=== PATIENT | male | born 1960 | race Caucasian/White ===

== ENCOUNTER 2017-04-08 00:19 | Emergency (ER) | payer OTHER ==
[~2017-04-08] VITALS: Ht 180.3 cm; Wt 90.7 kg
[~2017-04-08 00:19] MED LIST: ATIVAN2 MG PO; CALCICARB650 MG; DAILY VITE1 EACH PO; DOXYCYCLINE HY100 MG PO; DULCOLAX10 MG; ENOXAPARIN30 MG/0.3; FERROUS SULFAT325 MG; FLUCONAZOLE100 MG; FLUCONAZOLE100 MG PO; GABAPENTIN600 MG; LASIX20 MG PO; METHOCARBAMOL750 MG PO; MINIPRESS5 MG PO; MIRTAZAPINE30 MG PO; ONDANSETRON HCL8 MG PO; ONDANSETRON ODT4 MG; OXYCODONE HCL5 MG; OXYCODONE HCL5 MG PO; PHENADOZ25 MG PR; PRENACARE TABL1 EACH; PRILOSEC20 MG; ROBAXIN500 MG; SEROQUEL100 MG PO; TYLENOL325 MG
== END 2017-04-08 02:40 | disposition left against medical advice (07) ==
LOC: ED 00:19
DX: S80.211A Abrasion, right knee, initial encounter (principal); S80.812A Abrasion, left lower leg, initial encounter; F41.9 Anxiety disorder, unspecified; F32.9 Major depressive disorder, single episode, unspecified; F17.200 Nicotine dependence, unspecified, uncomplicated; Z86.19 Personal history of other infectious and parasitic diseases; Z79.899 Other long term (current) drug therapy; Z88.0 Allergy status to penicillin; Z88.8 Allergy status to other drugs, medicaments and biological substances; W18.30XA Fall on same level, unspecified, initial encounter
CPT/HCPCS: 99282

== ENCOUNTER 2018-01-26 17:44 | Inpatient (IN) | payer OTHER ==
[~2018-01-26] VITALS: Ht 180.3 cm; Wt 94.6 kg
[~2018-01-26 17:44] MED LIST changes: -METHOCARBAMOL750 MG PO; +ROBAXIN500 MG PO
[2018-01-26] MEDS ORDERED: CIPRO500 MG PO (18:18)
[2018-01-26] MEDS ORDERED: FLAGYL500 MG PO (18:18)
[2018-01-27] MEDS ORDERED: GABAPENTIN300 MG PO (00:16)
[2018-01-27] MEDS ORDERED: MELATONIN3 MG PO (00:19)
[2018-01-27] MEDS ORDERED: MAGNESIUM400 MG PO (00:19)
[2018-01-27] MEDS ORDERED: FLOMAX0.4 MG PO (00:20)
--- NOTE | 2018-01-27 00:28 | NUR ---
PATIENT ARRIVED TO FLOOR VIA STRETCHER. TRANSFERED TO BED, NOW RESTING.
--- NOTE | 2018-01-27 02:19 | NUR ---
PATIENT REPORTS 8/10 PAIN IN RIGHT FLANK, PRN DILAUDID GIVEN PER EMAR. PATIENT DENIES FURTHER NEEDS. BREATHING IS EVEN AND UNLABORED. CALL LIGHT WITHIN REACH, AT BEDSIDE.
--- NOTE | 2018-01-27 03:44 | NUR ---
PATIENT REPORTS 6/10 RIGHT FLANK PAIN, PRN DILAUDID GIVEN AND PRN METHOCARBAMOL GIVEN PER EMAR. PATIENT DENIES FURTHER NEEDS. RESTING COMFORTABLY, BREATHING IS EVEN AND UNLABORED. CALL LIGHT WITHIN REACH, AT BEDSIDE.
--- NOTE | 2018-01-27 05:35 | NUR ---
patient reports 5/10 pain in right flank, prn dilaudid given per emar. patient denies further needs. breathing is even and unlabored. he states "this is my normal level of pain at home." call light within reach.
--- NOTE | 2018-01-27 06:55 | NUR ---
UPDATED DR. HENRIQUEZ REGARDING PATIENT'S LOW URINE OUTPUT. NO NEW ORDERS AT THIS TIME.
--- NOTE | 2018-01-27 07:25 | NUR ---
GETTING REPORT ON PATIENT FROM ELLIE GARCIA AT THIS TIME. PATIENT WAS ASLEEP AT TIME OF ENTERING HIS ROOM. PATIENT'S IV IS PATENT AND INFUSING WITH D5 AND 1/2NS WITH 20KCL AT 125MLS/HR. PATIENT'S PAIN IS CURRENTLY 3/10. WILL COME BACK FOR ASSESSMENT.
--- NOTE | 2018-01-27 08:24 | NUR ---
PATIENT RELAXING IN BED. FAMILY MEMBER IN ROOM. CALL LIGHT WITHIN REACH. NO OTHER NEEDS AT THIS TIME.
--- NOTE | 2018-01-27 11:31 | NUR ---
STUDENT NURSE IN ROOM
--- NOTE | 2018-01-27 13:58 | NUR ---
PATIENT SITTING UP IN BED. STUDENT NURSE IN ROOM. PATIENTS IN ROOM. CALL LIGHT WITHIN REACH. NO OTHER NEEDS AT THIS TIME.
--- NOTE | 2018-01-27 14:47 | NUR ---
0846 PATIENT GOT 4MG ZOFRAN FOR NAUSEA FOLLOWED BY 1MG IV DILAUDID AT 0854 FOR 3/10 RIGHT FLANK PAIN. PATIENT WAS DOING FAIRLY WELL UNTIL 1259 AND WITH MOVEMENT TO STANDNING TO URINATE PATIENT WAS HAVING 8/10 RT FLANK PAIN AND WAS GIVEN ANOTHER 1MG IV DILAUDID. 1327 PATIENT HAVING NAUSEA AND WAS CALLED TO GIVE ANOTHER 4MG IV ZOFRAN EARLY FOLLOWED BY ANOTHER 1MG OF DILAUDID FOR 8/10 RT FLANK PAIN AT 1332. PATIENT'S PAIN DROPPED TO 7/10 PER PATIENT AND ANOTHER 1MG IV DILAUDID GIVEN AT 1432 AND NAUSEAIMPROVED BUT NOT GONE AND IN ROOM CARDIAC ECHO COMPLETED AT THIS TIME. INFORMED OF PATIENT'S PAIN LEVEL, DILAUDID COVERAGE, AND CONTINUED NAUSEA. NO FURTHER ORDERS GIVEN AT THIS TIME. WILL CONTINUE TO MONITOR PAIN AND NAUSEA.
--- NOTE | 2018-01-27 15:52 | NUR ---
PATIENT RESTING IN BED. PATIENTS IN ROOM. PATIENT STATES PAIN LEVEL IS A 7 OUT OF 10. RN NOTIFIED. RN SAID TO OFFER A HOT PACK AND/OR A SHOWER FOR PATIENT. PATIENT REFUSED SHOWER, BUT ACCEPTED HOT PACK. CALL LIGHT WITHIN REACH. NO OTHER NEEDS AT THIS TIME.
--- NOTE | 2018-01-27 18:39 | NUR ---
PATIENT SITTING UP IN BED. IN ROOM. PATIENT STATES PAIN LEVEL IS AN 8 OUT OF 10. PATIENT STATES HE IS FEELING NAUSEOUS WELL. RN NOTIFIED. CALL LIGHT WITHIN REACH. NO OTHER NEEDS AT THIS TIME.
--- NOTE | 2018-01-27 19:33 | NUR ---
IT HAS BEEN HARD TO CONTROL THIS PATIENT'S PAIN ALL AFTERNOON. 1MG OF DILAUDID HAS BEEN GIVEN ALMOST EVER HOUR TO HOUR AND A HALF AND IV MORPHINE HAS BEEN ADDED TO TRY AND DECREASE PATIENT'S RIGHT FLANK PAIN. THE PAIN THIS AFTERNOON HAS MAINLY IN THE RIGHT FLANK WHERE EARLIER FROM WHEN PATIENT WAS ADMITTED PAIN WAS RADIATING OUT INTO THE ABD AND THE RIGHT TESTICLE. PATIENT HAS REMAINED NPO EXCEPT FOR SOME MORNING MEDICATIONS SINCE LAST NIGHT. PATIENT HAS HAD AN IN ROOM CARDIAC ECHO THIS AFTERNOON FOLLOWED BY A RIGHT RENAL DOPPLER STUDAY DOWN IN DIAGNOSTIC IMAGINING AFTER THAT. ALL OF THIS MOVEMENT HAS INCREASED THE PATIENT'S PAIN. PATIENT GOT BACK FROM HIS RENAL STUDY NOT LONG BEFORE SHIFT CHANGE THIS EVENING AND WAS PLACED ON A CLEAR LIQUID DIET, BUT WAS TO NAUSEATED TO TRY AND HAVE ANYTHING PO. WAS GIVEN ANOTHER 1MG OF IV DILAUDID AND 4MG OF IV ZOFRAN FOR NAUSEA. AT TIME OF REPORT TO EVENING SHIFT PATIENT'S PAIN HAD DROPPED FROM 8/10 TO 6/10 AND HIS NAAUSEA HAD DECREASED ENOUGH TO TAKE A FEW SIPS OF FLUID AND KEEP IT DOWN. METAL MODEL MAKER RN INFORMED THAT PATIENT HAD NOT BEEN GIVEN HIS 1800 FLOMAX YET DUE TO THE NAUSEA AND HIS PM FLAGYL HAD BEEN HELD FOR THE NPO STATUS OF THE RENAL STUDY AND THESE WOULD STILL NEED TO BE GIVEN IF PATIENT ABLE TO KEEP PO FLUIDS DOWN. PATIENT WAS MEDICATED X 3 FOR NAUSEA TODAY PLEASE SEE PREVIOUS NOTE.
--- NOTE | 2018-01-27 20:00 | NUR ---
RECEIVED REPORT AT 1900. FOUND PT IN BED. PAIN WAS 6/10. PT DID NOT LOOK WELL OVERALL.
--- NOTE | 2018-01-27 21:48 | NUR ---
VITALS DONE AND CHARTED. BEDSIDE TABLE AND CALL LIGHT WITHIN REACH. PER PTS REQUEST I GOT HER A FRESH ICE PACK. SHE WAS VERY THANKFUL. PT NEEDS NOTHING ELSE AT THIS TIME.
--- NOTE | 2018-01-27 22:00 | NUR ---
V/S ARE WDL, ALL LOBES ARE CLEAR, PAIN IS 7/10, PAIN IS ALSO LOCALIZED TO RIGHT FLANK AT THIS TIME. ABD SOUNDS ARE PRESENT. PT HAS NO OTHER CONCERNS BESIDES HIS PAIN. URINE OUTPUT IS ADEQUATE SO FAR.
--- NOTE | 2018-01-28 00:27 | NUR ---
PT IS UP URINATING AT THIS TIME. PT HAS BEEN SLEEPING FOR THE PAST COUPLE OF HOURS.
--- NOTE | 2018-01-28 02:00 | NUR ---
PAIN IS 10/10. PT IS ONLY ORIENTED TO SELF AT THIS TIME. STATED THAT HE IS USUALLY NOT THIS BAD. MD VIZCAINO WAS CALLED. NO NEW ORDERS WERE GIVEN. WILL CONTINUE TO MONITOR.
--- NOTE | 2018-01-28 04:00 | NUR ---
PT IS AWAKE IN BED. PAIN IS 6/10. PT STATED THAT THIS IS TOLERABLE.
--- NOTE | 2018-01-28 06:37 | NUR ---
V/S ARE WDL, PAIN IS LOCAL NOW BUT STILL NEVER <6. PT SLEPT SOME THIS SHIFTL. ALL LOBES ARE CLEAR. AT AROUND 0200 PT SUDDENLY WAS ONLY ORIENTED TO SELF. SPOUSE SAID THAT THIS HAPPENS AT TIMES BUT NOT TO THIS EXTENT. MD VIZCAINO WAS CALLED AND NO NEW ORDERS WERE RECEIVED. NO NEW CONCERNS AT THIS TIME. PT IS ORIENTED TO SELF, PLACE AND SURROUNDINGS AT THIS TIME.
--- NOTE | 2018-01-28 07:52 | NUR ---
PATIENT LAYING IN BED AT THIS TIME. AT BEDSIDE. AM VITALS PERFORMED BY TERESA BENCH MACHINE OPERATOR. AM MEDS WILLL BE GIVEN BY BENCH MACHINE OPERATOR AND HER INSTRUCTOR HENRY. AM ASSESSMENT PERFORMED.
--- NOTE | 2018-01-28 08:56 | NUR ---
0755 SET HIM UP FOR HIS SHOWER SOMETIME TODAY.
--- NOTE | 2018-01-28 09:46 | NUR ---
PT STATES THAT HE WILL BE FEELING FINE AND THEN ALL OF A SUDDEN WILL "HIT A WALL" AND BEGIN SWEATING PROFUSELY. SUSPECTED OPIOID WITHDRAWAL FROM TAKING 15MG OXYCODONE 3-4 TIMES A DAY AT HOME. TRYING TO KEEP PAIN UNDER CONTROL AND OFFERING COMFORT MEASURES.
--- NOTE | 2018-01-28 09:56 | NUR ---
PAIN RATED AT A 6 AFTER PRN HOURLY DILAUDID. CONFUSED TO WHY HE FEELS FINE AND THEN SO BAD IN A SHORT SPAN. APPOLOGETIC. OFFERED COMFORT MEASURES. RN INFORMED OF CHANGES.
--- NOTE | 2018-01-28 10:37 | NUR ---
ICE PACK GIVEN FOR COMFORT MEASURES.
--- NOTE | 2018-01-28 11:08 | NUR ---
PT STATES CONCERNS ABOUT PHYSICIANS RF TECHNICIAN, INSURANCE, CAREGIVER EXHAUSTION NOTED. DISCUSSED SUPPORT THROUGH FAITH AND PA CHANGE. EXPRESSED EMOTION ABOUT SITUATION. 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 DIFFICULT ADJUST TO NEW "NORMS" IN LAST 5 YEARS. STATES CONCERNS ABOUT MISSING HER OWN APPTS BECAUSE OF HOSPITALIZATION AND LACK OF SUPPORT.
--- NOTE | 2018-01-28 11:34 | NUR ---
PATIENT CURRENTLY IN THE SHOWER. MENDY STAFFORD, CHANGING LINEN AT THIS TIME.
[2018-01-28] MEDS ORDERED: ZOFRAN ODT4 MG PO (11:59)
[2018-01-28] MEDS ORDERED: OMEPRAZOLE20 M1 PO (12:00)
--- NOTE | 2018-01-28 12:15 | NUR ---
PRN DILAUDID GIVEN. PT COMMUNICATES 8/10 PAIN AFTER SHOWER. PT APPEARS TO BE TRYING TO NAP AFTER PAIN MEDICATION.
[2018-01-28] MEDS ORDERED: OXYCODONE HCL15 MG PO (12:24)
--- NOTE | 2018-01-28 12:31 | NUR ---
PATIENT RESTING QUIETLY IN BED AT THIS TIME. EYES CLOSED, RESPIRATIONS EVEN AND REGULAR. CALL LIGHT IN REACH.
--- NOTE | 2018-01-28 13:15 | NUR ---
JUST SAW PATIENT AND DISCUSSED TRANSFERING PATIENT TO [facility] OR [facility] TO GET SPECIALIZED TREATMENT FOR HIS KIDNEY. PATIENT AND HIS AGREED TO DO THIS IF COULD ARRANGE IT. PATIENT MADE NPO AGAIN AT THIS TIME IN CASE HE NEEDS TO BE NPO FOR TESTS OR PROCEDURES AT THE RECEIVING FACILITY. PATIENT'S IS GOING HOME FOR A LITTLE WHILE AND WILL BE BACK SHORTLY.
--- NOTE | 2018-01-28 13:53 | NUR ---
PT SITTING ON SIDE OF BED, HIS BY HIS SIDE. PT VERY DISCOURAGED, ACCORDING TO HIM IT SEEMS LIKE ONE MEDICAL ISSUE AFTER ANOTHER. FEELS LIKE HE IS LETTING HIMSELF AND HIS FAMILY DOWN. HAD GOOD VISIT WITH BOTH, THEY REQUESTED PRAYER AND THAT I KEEP THEIR ENTRY LEVEL TRUCK DRIVER UPDATED WHICH I DID. WILL CONTINUE TO FOLLOW NEEDED
--- NOTE | 2018-01-28 14:25 | NUR ---
Medications reconciled using pharmacy records and interview with patient's , his computer systems design analyst
[2018-01-28] MEDS ORDERED: ELIQUIS5 MG PO (15:08)
[2018-01-28] MEDS ORDERED: NICOTINE PATCH1 EACH TD (15:08)
--- NOTE | 2018-01-28 15:08 | NUR ---
REPORTED OFF TO PRIMARY NURSE. PT GOING TO CALL TO TALK ABOUT TRANSFER TO [facility], VERY ANXIOUS. GIVEN ANOTHER PRN DILAUDID. NO COMPLAINTS AT THIS TIME. WAITING FOR RETURN.
[2018-01-28] MEDS ORDERED: HYDROMORPHO2 MG/1 M2 IV (15:10)
--- NOTE | 2018-01-28 15:38 | NUR ---
CALLED TRANSFERING REPORT TO SUSAN ON UN[address] AT [facility]. INFORMED SUSAN SHOULD BE LEAVING IN APPROXIMATELY 20 MINUTES. PATIENT WILL BE GOING TO BED 2301. REPORT WAS CALLED TO SUSAN AT [phone] AND HAD NO QUESTIONS AT END OF REPORT.
--- NOTE | 2018-01-28 16:25 | NUR ---
PATIENT GIVEN 2MG PO ATIVAN FOR ANXIETY AND TRANSFERED TO [facility] VIA EMS. GOING WITH PATIENT TO [facility]. 1MG PO ATIVAN GIVEN TO EMS FOR PRN IF NEEDED IN TRANSIT. PATIENT'S IV SALINE LOCKED FOR TRANSPORT.
== END 2018-01-28 16:25 | disposition short-term general hospital (02) | DRG 700 ==
LOC: ED 17:44 → CCU 23:47 → ED 23:48 → MS 23:48
PROVIDERS: ADMIT Internal Medicine
DX: N28.0 Ischemia and infarction of kidney (principal); I70.1 Atherosclerosis of renal artery; F41.9 Anxiety disorder, unspecified; F32.9 Major depressive disorder, single episode, unspecified; F43.10 Post-traumatic stress disorder, unspecified; F17.200 Nicotine dependence, unspecified, uncomplicated; Z87.820 Personal history of traumatic brain injury; Z86.19 Personal history of other infectious and parasitic diseases; Z79.891 Long term (current) use of opiate analgesic; Z79.899 Other long term (current) drug therapy; Z88.0 Allergy status to penicillin; Z88.8 Allergy status to other drugs, medicaments and biological substances
CPT/HCPCS: 36415; 74177; 80048; 80053; 81001; 81241; 83690; 85025; 85300; 85303; 85306; 85610; 85730; 86147; 93306; 93976; 94762; 96374; 96375; 99285; J1170; J1885; J2270; J2405; J7030; Q9967

== ENCOUNTER 2018-10-20 14:24 | Emergency (ER) | payer OTHER ==
[~2018-10-20] VITALS: Ht 180.3 cm; Wt 94.6 kg
[~2018-10-20 14:24] MED LIST changes: +CIPRO500 MG PO; +ELIQUIS5 MG PO; +FLAGYL500 MG PO; +FLOMAX0.4 MG PO; +GABAPENTIN300 MG PO; +HYDROMORPHO2 MG/1 M2 IV; +MAGNESIUM400 MG PO; +MELATONIN3 MG PO; +NICOTINE PATCH1 EACH TD; +OMEPRAZOLE20 M1 PO; +OXYCODONE HCL15 MG PO; +ZOFRAN ODT4 MG PO
--- OUTSIDE RECORDS SUMMARY | 2018-10-20 14:28 | XMS ---
PreManage Notification: APARNA HAN Security Echocardiography Technologist Events No recent Security Events currently on file CRITERIA MET - [facility] CARE PROVIDERS Margarita Samayoa Cleaner Touch Up Worker/Brick Maker 02/05/2017-Current PHONE: [phone] Margarita Samayoa Primary Care 02/05/2017-Current PHONE: [phone] Toan has no Care Guidelines for this patient. EJaskaran VISIT COUNT (12 MO.) 1 Abigail Chance TOTAL 3 NOTE: Visits indicate total known visits. ED/UCC VISIT TRACKING (12 MO.) 10/20/2018 14:24 [facility] TYPE: Emergency COMPLAINT: - HIP PAIN/FALL 01/26/2018 17:44 [facility] TYPE: Emergency COMPLAINT: - RENAL INFRACT 01/21/2018 19:17 [facility] Avinash DINH TYPE: Emergency DIAGNOSES: - Nausea - Nonspecific elevation of levels of transaminase and lactic acid dehydrogenase [LDH] - Emesis - Unspecified abdominal pain - Dehydration - Nausea with vomiting, unspecified - Abd pain-Per Fadi - Abdominal Pain INPATIENT VISIT TRACKING (12 MO.) 01/28/2018 19:56 [facility] TYPE: Medical Surgical COMPLAINT: - RENAL [facility] STEOSIS [facility] DIAGNOSES: - Dehydration - Other mechanical complication of bile duct prosthesis, initial encounter - Nausea with vomiting, unspecified - Unspecified abdominal pain - Nonspecific elevation of levels of transaminase and lactic acid dehydrogenase [LDH] [email or web address]
== END 2018-10-20 16:40 | disposition home or self-care (01) ==
LOC: ED 14:24
DX: S70.01XA Contusion of right hip, initial encounter (principal); W00.0XXA Fall on same level due to ice and snow, initial encounter; F41.9 Anxiety disorder, unspecified; F32.9 Major depressive disorder, single episode, unspecified; Z87.891 Personal history of nicotine dependence; Z88.8 Allergy status to other drugs, medicaments and biological substances; Z88.0 Allergy status to penicillin; Z91.048 Other nonmedicinal substance allergy status; Z79.899 Other long term (current) drug therapy
CPT/HCPCS: 73030; 73502; 99283-25

== ENCOUNTER 2019-05-27 10:39 | Emergency (ER) | payer OTHER ==
[~2019-05-27] VITALS: Ht 180.3 cm; Wt 95.2 kg
--- OUTSIDE RECORDS SUMMARY | 2019-05-27 10:42 | XMS ---
PreManage Notification: APARNA HAN Security Neonatal Intensive Care Unit Nurse Events No recent Security Events currently on file CRITERIA MET - [facility] - Has Care Guidelines [facility] Margarita Samayoa Featheredger And Reducer Machine/Apprenticeship Representative 03/07/2019-Current PHONE: [phone] DA Pineda Nurse Practitioner: Family 10/21/2018-Current PHONE: Unknown Margarita Samayoa Primary Care 03/07/2019-Current PHONE: [phone] Toan has no Care Guidelines for this patient. 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 Reese VISIT COUNT (12 MO.) 3 SELVIN Chance TOTAL 3 NOTE: Visits indicate total known visits. ED/UCC VISIT TRACKING (12 MO.) 05/27/2019 10:40 [facility] [place] TYPE: Emergency COMPLAINT: - BLOOD PRESSURE PROBLEM, BACK/ABD PAIN 11/05/2018 16:52 [facility] [place] TYPE: Emergency COMPLAINT: - KIDNEY PROBLEM DIAGNOSES: - Other chronic pain - Dissection of iliac artery - Personal history of other infectious and parasitic diseases - Other allergy status, other than to drugs and biological substances - Personal history of nicotine dependence - Major depressive disorder, single episode, unspecified - Anxiety disorder, unspecified - Allergy status to other drugs, medicaments and biological substances status - Other halfway (current) drug therapy - Allergy status to penicillin 10/20/2018 14:24 [facility] [place] TYPE: Emergency COMPLAINT: - HIP PAIN/FALL DIAGNOSES: - Personal history of nicotine dependence - Allergy status to penicillin - Contusion of right hip, initial encounter - Allergy status to other drugs, medicaments and biological substances status - Pain in right hip - Anxiety disorder, unspecified - Other nonmedicinal substance allergy status - Other halfway (current) drug therapy - Fall on same level due to ice and snow, initial encounter - Major depressive disorder, single episode, unspecified INPATIENT VISIT TRACKING (12 MO.) No inpatient visits to display in this time frame [email or web address]
[2019-05-27] MEDS ORDERED: CATAPRES0.2 MG PO (14:17)
[2019-05-27] MEDS ORDERED: GABAPENTIN600 MG PO (14:24)
--- NOTE | 2019-05-28 11:55 | EKG ---
[facility] [address] [place], [place] [address] Signed Normal sinus rhythm Normal ECG No previous ECGs available Confirmed by ANGELA WILKINS DO ([id number]) on 05/28/2019 11:54:49 AM Electronically Signed By: ANGELA WILKINS DO 05/28/19 1155 PATIENT NAME: APARNA HAN Electrocardiogram DATE OF : 58 PHYSICIAN: ANGELA WILKINS DO REPORT #: [id number] REPORT IS CONFIDENTIAL AND NOT TO BE RELEASED WITHOUT AUTHORIZATION
== END 2019-05-27 14:41 | disposition home or self-care (01) ==
LOC: ED 10:39
DX: R07.9 Chest pain, unspecified (principal); I10 Essential (primary) hypertension; M54.9 Dorsalgia, unspecified; R10.10 Upper abdominal pain, unspecified; Z87.891 Personal history of nicotine dependence; Z88.0 Allergy status to penicillin; Z88.6 Allergy status to analgesic agent; Z91.048 Other nonmedicinal substance allergy status
CPT/HCPCS: 71275; 74174; 80053; 81001; 83605; 83690; 84484; 85025; 93005; 93010; 99285-25; J1170; J2405; Q9967

== ENCOUNTER 2019-07-03 09:05 | Emergency (ER) | payer OTHER ==
[~2019-07-03] VITALS: Ht 180.3 cm; Wt 95.2 kg
--- OUTSIDE RECORDS SUMMARY | ~2019-07-03 | XMS | Encounter Summary ---
Demographics + + + | Address | [address] | | | [place] [address] | + + + | Home Phone | | + + + | Preferred Language | Unknown | + + + | Marital Status | | + + + | Mu-Ism Affiliation | Unknown | + + + | Race | White | + + + | Ethnic Group | Not or | + + + Author + + + | Author | [facility] | + + + | Organization | [facility] | + + + | Address | Unknown | + + + | Phone | Unavailable | + + + Support + + +---------+ + | Name | Relationship | Address | Phone | + + +---------+ + | Maria Isabel Cespedes | ECON | Unknown | | + + +---------+ + Care Team Providers + +------+ + | Care Bearing Ring Assembler Name | Role | Phone | + +------+ + | Allison Fairchild NP | PCP | | + +------+ + Encounter Details +--------+------+ + + + | Date | Type | Department | Care Team | Description | +--------+------+ + + + | 03/11/ | Lab | Laboratory, | | Renal artery | | 2019 | | Specimen Collection | | stenosis (HCC) | | | | at [address] | | | | | | [address] | | | | | | [place], | | | | | | [place] [address] | | | | | | [phone] | | | +--------+------+ + + + Social History + +-------+ [...] as of this encounter Plan of Treatment + +------+--------+ + + | Name | Type | Priori | Associated Diagnoses | Order Schedule | | | | ty | | | + +------+--------+ + + | CREATININE, URINE | Lab | Routin | Renal artery | Expected: 03/11/2019 | | | | e | stenosis (HCC) | (Approximate), | | | | | | Expires: 04/11/2020 | + +------+--------+ + + | PROTEIN, URINE | Lab | Routin | Renal artery | Expected: 03/11/2019 | | | | e | stenosis (HCC) | (Approximate), | | | | | | Expires: 04/11/2020 | + +------+--------+ + + | URINE, MICROSCOPIC | Lab | Routin | Renal artery | Expected: 03/11/2019 | | EXAM | | e | stenosis (HCC) | (Approximate), | | | | | | Expires: 04/11/2020 | + +------+--------+ + + documented as of this encounter Procedures + +--------+ + + + | Procedure Name | Priori | Date/Time | Associated Diagnosis | Comments | | | ty | | | | + +--------+ + + + | CBC AND AUTO DIFF | Routin | 03/11/2019 | Renal artery | Results for this | | | e | 10:19 AM | stenosis (HCC) | procedure are in the | | | | PDT | | results section. | + +--------+ + + + | CBC, WITH | Routin | 03/11/2019 | Renal artery | Results for this | | DIFFERENTIAL | e | 10:19 AM | stenosis (HCC) | procedure are in the | | | | PDT | | results section. | + +--------+ + + + | COMPLETE METABOLIC | Routin | 03/11/2019 | Renal artery | Results for this | | SET | e | 10:19 AM | stenosis (HCC) | procedure are in the | | (NA,K,CL,CO2,BUN,CRE | | PDT | | results section. | | AT,GLUC,CA,AST,ALT,B | | | | | | MARGIE TOTAL,ALK | | | | | | PHOS,ALB,PROT TOTAL) | | | | | + +--------+ + + + | RPR SERUM | Routin | 03/11/2019 | Renal artery | Results for this | | | e | 10:19 AM | stenosis (HCC) | procedure are in the | | | | PDT | | results section. | + +--------+ + + + | C-REACTIVE PROTEIN | Routin | 03/11/2019 | Renal artery | Results for this | | | e | 10:19 AM | stenosis (HCC) | procedure are in the | | | | PDT | | results section. | + +--------+ + + + | SEDIMENTATION RATE | Routin | 03/11/2019 | Renal artery | Results for this | | | e | 10:19 AM | stenosis (HCC) | procedure are in the | | | | PDT | | results section. | + +--------+ + + + documented in this encounter Results CBC AND AUTO DIFF (03/11/2019 10:19 AM PDT) + + + + + + | Component | Value | Ref Range | Performed | Pathologist | | | | | At | Signature | + + + + + + | WHITE CELL | 9.38 | 3.50 - 10.80 | [facility] | | | COUNT | | K/cu mm | LABORATORY | | | | | | SERVICES, | | | | | | CORE | | + + + + + + | RED CELL | 4.70 | 4.50 - 6.00 | [facility] | | | COUNT | | M/cu mm | LABORATORY | | | | | | SERVICES, | | | | | | CORE | | + + + + + + | HEMOGLOBIN | 13.8 | 13.5 - 17.5 | [facility] | | | | | g/dL | LABORATORY | | | | | | SERVICES, | | | | | | CORE | | + + + + + + | HEMATOCRIT | 41.8 | 41.0 - 53.0 % | [facility] | | | | | | LABORATORY | | | | | | SERVICES, | | | | | | CORE | | + + + + + + | MCV | 88.9 | 80.0 - 100.0 fL | [facility] | | | | | | LABORATORY | | | | | | SERVICES, | | | | | | CORE | | + + + + + + | MCHC | 33.0 | 32.0 - 36.0 | [facility] | | | | | g/dL | LABORATORY | | | | | | SERVICES, | | | | | | CORE | | + + + + + + | RDW SD | 45.3 | 35.1 - 46.3 fL | [facility] | | | | | | LABORATORY | | | | | | SERVICES, | | | | | | CORE | | + + + + + + | PLATELET | 431 (H) | 150 - 400 K/cu | [facility] | | | COUNT | | mm | LABORATORY | | | | | | SERVICES, | | | | | | CORE | | + + + + + + | MPV | 9.7 | 9.7 - 12.3 fL | [facility] | | | | | | LABORATORY | | | | | | SERVICES, | | | | | | CORE | | + + + + + + | NRBC% | 0.0 | 0.0 - 0.3 % | [facility] | | | | | | LABORATORY | | | | | | SERVICES, | | | | | | CORE | | + + + + + + | NRBC# | 0.00 | 0.00 - 0.02 | [facility] | | | | | K/cu mm | LABORATORY | | | | | | SERVICES, | | | | | | CORE | | + + + + + + | NEUTROPHIL | 57.1 | 50.0 - 70.0 % | [facility] | | | % | | | LABORATORY | | | | | | SERVICES, | | | | | | CORE | | + + + + + + | LYMPHOCYTE | 32.1 | 18.0 - 42.0 % | [facility] | | | % | | | LABORATORY | | | | | | SERVICES, | | | | | | CORE | | + + + + + + | MONOCYTE % | 7.7 | 3.5 - 9.0 % | [facility] | | | | | | LABORATORY | | | | | | SERVICES, | | | | | | CORE | | + + + + + + | EOS % | 1.7 | 1.0 - 3.0 % | [facility] | | | | | | LABORATORY | | | | | | SERVICES, | | | | | | CORE | | + + + + + + | BASO % | 1.1 | 0.0 - 2.0 % | [facility] | | | | | | LABORATORY | | | | | | SERVICES, | | | | | | CORE | | + + + + + + | IG% | 0.3Comment: Increased | 0.0 - 1.0 % | [facility] | | | | immature granulocytes | | LABORATORY | | | | (IG) define a left | | SERVICES, | | | | shift. Immature | | CORE | | | | granulocytes (IG) are an | | | | | | automated count of | | | | | | metamyelocytes, | | | | | | myelocytes and | | | | | | promyelocytes. Bands | | | | | | are not included in the | | | | | | IG count. Bands are | | | | | | included in the | | | | | | neutrophil count. | | | | + + + + + + | NEUTROPHIL | 5.36 | 1.80 - 7.70 | [facility] | | | # | | K/cu mm | LABORATORY | | | | | | SERVICES, | | | | | | CORE | | + + + + + + | LYMPHOCYTE | 3.01 | 1.00 - 4.80 | [facility] | | | # | | K/cu mm | LABORATORY | | | | | | SERVICES, | | | | | | CORE | | + + + + + + | MONOCYTE # | 0.72 | 0.10 - 0.90 | [facility] | | | | | K/cu mm | LABORATORY | | | | | | SERVICES, | | | | | | CORE | | + + + + + + | EOS # | 0.16 | 0.00 - 0.50 | [facility] | | | | | K/cu mm | LABORATORY | | | | | | SERVICES, | | | | | | CORE | | + + + + + + | BASO # | 0.10 | 0.00 - 0.10 | [facility] | | | | | K/cu mm | LABORATORY | | | | | | SERVICES, | | | | | | CORE | | + + + + + + | IG# | 0.03 | 0.00 - 0.10 | [facility] | | | | | K/cu mm | LABORATORY | | | | | | SERVICES, | | | | | | CORE | | + + + + + + + + | Specimen | + + | Blood - Blood | | (substance) | + + + + + | Narrative | Performed At | + + + | Increased immature granulocytes (IG) define a left shift. Immature | [facility] | | granulocytes (IG) are an automated count of metamyelocytes, myelocytes | LABORATORY | | and promyelocytes. Bands are not included in the IG count. Bands are | SERVICES, CORE | | included in the neutrophil count. | | + + + + + + + + | Performing | Address | City/State/Zipcode | Phone Number | | Organization | | | | + + + + + | [facility] | [address] | [place] [address] | | | SERVICES, CORE | [address] | | | + + + + + RPR SERUM (03/11/2019 10:19 AM PDT) + + + + + + | Component | Value | Ref Range | Performed | Pathologist | | | | | At | Signature | + + + + + + | RPR SRM | Non ReactiveComment: | Non Reactive | [facility] | | | QUAL | Rapid Plasma Reagin | | REG [facility] | | | | screening test is | | [facility] - [facility] | | | | Non-Reactive. No further | | | | | | reflex testing is | | | | | | required.Performed by | | | | | | [employer],[address] | | | | | | [address], [facility],[place] | | | | | | [id number] | | | | | | [phone][facility]. | | | | | | Melecio agrawal MD, | | | | | | Lab. Director | | | | + + + + + + + + | Specimen | + + | Blood - Blood | | (substance) | + + + + + + + | Performing | Address | City/State/Zipcode | Phone Number | | Organization | | | | + + + + + | [facility] | [address] | [place], [place] | | | UNIV [facility] | | [id number] | | + + + + + C-REACTIVE PROTEIN (03/11/2019 10:19 AM PDT) + + + + + + | Component | Value | Ref Range | Performed | Pathologist | | | | | At | Signature | + + + + + + | C-REACTIVE | 19.7 (H) | <10.0 mg/L | [facility] | | | PROTEIN | | | LABORATORY | | | | | | SERVICES, | | | | | | CORE | | + + + + + + + + | Specimen | + + | Blood - Blood | | (substance) | + + + + + + + | Performing | Address | City/State/Zipcode | Phone Number | | Organization | | | | + + + + + | [facility] | [address] | [place] [address] | | | SERVICES, CORE | [address] | | | + + + + + COMPLETE METABOLIC SET (NA,K,CL,CO2,BUN,CREAT,GLUC,CA,AST,ALT,BILI TOTAL,ALK PHOS,ALB,PROT TOTAL) (03/11/2019 10:19 AM PDT) + +---------+ + + + | Component | Value | Ref Range | Performed | Pathologist | | | | | At | Signature | + +---------+ + + + | GLUCOSE, | 65 (L) | 70 - 99 mg/dL | [facility] | | | PLASMA | | | LABORATORY | | | (LAB) | | | SERVICES, | | | | | | CORE | | + +---------+ + + + | BUN, PLASMA | 17 | 6 - 20 mg/dL | [facility] | | | (LAB) | | | LABORATORY | | | | | | SERVICES, | | | | | | CORE | | + +---------+ + + + | CREATININE | 1.07 | 0.70 - 1.30 | [facility] | | | PLASMA | | mg/dL | LABORATORY | | | (LAB) | | | SERVICES, | | | | | | CORE | | + +---------+ + + + | EGFR | >60 | >60 mL/min | [facility] | | | - | | | LABORATORY | | | POLISH | | | SERVICES, | | | | | | CORE | | + +---------+ + + + | EGFR NON | >60 | >60 mL/min | [facility] | | | -EVELYN | | | LABORATORY | | | RICAN | | | SERVICES, | | | | | | CORE | | + +---------+ + + + | SODIUM, | 134 (L) | 136 - 145 | [facility] | | | PLASMA | | mmol/L | LABORATORY | | | (LAB) | | | SERVICES, | | | | | | CORE | | + +---------+ + + + | POTASSIUM, | 4.2 | 3.4 - 5.0 | [facility] | | | PLASMA | | mmol/L | LABORATORY | | | (LAB) | | | SERVICES, | | | | | | CORE | | + +---------+ + + + | CHLORIDE, | 103 | 97 - 108 mmol/L | [facility] | | | PLASMA | | | LABORATORY | | | (LAB) | | | SERVICES, | | | | | | CORE | | + +---------+ + + + | TOTAL CO2, | 25 | 21 - 32 mmol/L | [facility] | | | PLASMA | | | LABORATORY | | | (LAB) | | | SERVICES, | | | | | | CORE | | + +---------+ + + + | CALCIUM, | 8.7 | 8.6 - 10.2 | [facility] | | | PLASMA | | mg/dL | LABORATORY | | | (LAB) | | | SERVICES, | | | | | | CORE | | + +---------+ + + + | CALCIUM(ALB | 9.1 | 8.6 - 10.2 | [facility] | | | CORRECTED) | | mg/dL | LABORATORY | | | | | | SERVICES, | | | | | | CORE | | + +---------+ + + + | BILIRUBIN | 0.4 | 0.3 - 1.2 mg/dL | [facility] | | | TOTAL | | | LABORATORY | | | | | | SERVICES, | | | | | | CORE | | + +---------+ + + + | TOTAL | 7.4 | 6.4 - 8.2 g/dL | [facility] | | | PROTEIN, | | | LABORATORY | | | PLASMA | | | SERVICES, | | | (LAB) | | | CORE | | + +---------+ + + + | ALBUMIN, | 3.5 | 3.5 - 4.7 g/dL | [facility] | | | PLASMA | | | LABORATORY | | | (LAB) | | | SERVICES, | | | | | | CORE | | + +---------+ + + + | ALK PHOS | 103 | 53 - 128 U/L | [facility] | | | | | | LABORATORY | | | | | | SERVICES, | | | | | | CORE | | + +---------+ + + + | AST(SGOT) | 18 | <=41 U/L | [facility] | | | | | | LABORATORY | | | | | | SERVICES, | | | | | | CORE | | + +---------+ + + + | ALT (SGPT) | 18 | <=60 U/L | [facility] | | | | | | LABORATORY | | | | | | SERVICES, | | | | | | CORE | | + +---------+ + + + | ANION GAP | 6 | 4 - 11 mmol/L | [facility] | | | | | | LABORATORY | | | | | | SERVICES, | | | | | | CORE | | + +---------+ + + + | ANION | 7 | 4 - 11 mmol/L | [facility] | | | GAP(ALB | | | LABORATORY | | | CORRECTED) | | | SERVICES, | | | | | | CORE | | + +---------+ + + + | POTASSIUM | No Hemo | | [facility] | | | CMNT | | | LABORATORY | | | | | | SERVICES, | | | | | | CORE | | + +---------+ + + + | BILI T CMNT | No Hemo | | [facility] | | | | | | LABORATORY | | | | | | SERVICES, | | | | | | CORE | | + +---------+ + + + | AST CMNT | No Hemo | | [facility] | | | | | | LABORATORY | | | | | | SERVICES, | | | | | | CORE | | + +---------+ + + + + + | Specimen | + + | Blood - Blood | | (substance) | + + + + + | Narrative | Performed At | + + + | GFR is estimated using the MDRD equation recommended by the National | [facility] | | Kidney Disease Education Program. Estimated GFR Interpretive | LABORATORY | | Information: <60 mL/min/1.73 sq m Chronic Kidney | SERVICES, CORE | | Disease <15 mL/min/1.73 sq m Kidney Failure | | | Estimated GFR greater than 60 mL/min/1.73 sq m is of limited clinical | | | value. The MDRD equation is not valid in the following situations: - | | | Patients under 18 years of age - Severe malnutrition or obesity - | | | Vegetarian diet - Rapidly changing kidney function - Amputees, | | | paraplegics, or other muscle-wasting diseses | | + + + + + + + + | Performing | Address | City/State/Zipcode | Phone Number | | Organization | | | | + + + + + | [facility] | [address] | [place] [address] | | | SERVICES, CORE | [address] | | | + + + + + SEDIMENTATION RATE (03/11/2019 10:19 AM PDT) + +--------+ + + + | Component | Value | Ref Range | Performed | Pathologist | | | | | At | Signature | + +--------+ + + + | SEDIMENTATI | 72 (H) | 0 - 20 mm/hr | [facility] | | | ON RATE | | | LABORATORY | | | | | | SERVICES, | | | | | | CORE | | + +--------+ + + + + + | Specimen | + + | Blood - Blood | | (substance) | + + + + + | Narrative | Performed At | + + + | Conditions such as cold agglutinins, anemia(including sickle cell | [facility] | | disease), multiple myeloma, hemolysis, icterus or lipemia may affect | LABORATORY | | sedimentation rate. | SERVICES, CORE | + + + + + + + + | Performing | Address | City/State/Zipcode | Phone Number | | Organization | | | | + + + + + | [facility] | [address] | [place] [address] | | | SERVICES, CORE | [address] | | | + + + + + documented in this encounter Visit Diagnoses + + | Diagnosis | + + | Renal artery stenosis (HCC) Atherosclerosis of renal artery | + + documented in this encounter"
--- OUTSIDE RECORDS SUMMARY | ~2019-07-03 | XMS | Encounter Summary ---
Demographics + + + | Address | [address] | | | [place] [address] | + + + | Home Phone | | + + + | Preferred Language | Unknown | + + + | Marital Status | | + + + | Gnosticist Affiliation | Unknown | + + + | Race | White | + + + | Ethnic Group | Not or | + + + Author + + + | Organization | Unknown | + + + | Address | Unknown | + + + | Phone | Unavailable | + + + Support + + +---------+ + | Name | Relationship | Address | Phone | + + +---------+ + | Maria Isabel Justin ECON | Unknown | | + + +---------+ + Care Team Providers + +------+ + | Care Slackman Name | Role | Phone | + +------+ + | Allison Fairchild NP | PCP | | + +------+ + Encounter Details +--------+--------+ + + + | Date | Type | Department | Care Team | Description | +--------+--------+ + + + | 07/05/ | Travel | | | | | 2019 | | | | | +--------+--------+ + + + Social History + +-------+ [...]
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
--- OUTSIDE RECORDS SUMMARY | ~2019-07-03 | XMS | Encounter Summary ---
Demographics + + + | Address | [address] | | | [place] [address] | + + + | Home Phone | | + + + | Preferred Language | Unknown | + + + | Marital Status | | + + + | Faith Affiliation | 1013 | + + + | Race | Unknown | + + + | Ethnic Group | Unknown | + + + Author + + + | Author | [facility] | | | and [place] | + + + | Organization | [facility] | | | and [...] [place] | | | | | [address] | | + + + + + Care Team Providers + +------+ + | Care Wash Oil Cooler Operator Name | Role | Phone | + +------+ + | Allison Fairchild NP | PCP | Unavailable | + +------+ + Encounter Details +--------+ + + + + | Date | Type | Department | Care Team | Description | +--------+ + + + + | 04/26/ | Orders Only | [facility] | Rich Washington MD | Iliac artery | | 2019 | | VASCULAR SURGERY | [address] | dissection (HCC) | | | | [address] | [place], [place] | (Primary Dx) | | | | [place], [place] | [address] | | | | | [address] | [phone] | | | | | [phone] | | | +--------+ + + + [...] + +---------+ + | No | 0 | 0.0 | | | | Standard | | | | | drinks or | | | | | | | | | | equivalen | | | | | t | | | + + +---------+ + [...] + | Diagnosis | + + | 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
--- OUTSIDE RECORDS SUMMARY | ~2019-07-03 | XMS | Encounter Summary ---
Demographics + + + | Address | [address] | | | [place] [address] | + + + | Home Phone | | + + + | Preferred Language | Unknown | + + + | Marital Status | | + + + | Pentecostalism Affiliation | 1013 | + + + | Race | Unknown | + + + | Ethnic Group | Unknown | + + + Author + + + | Author | [facility] | | | and [place] | + + + | Organization | [facility] | | | and [place] [...] [place] | | | | | [address] | | + + + + + Care Team Providers + +------+ + | Care Rn Cardiovascular Name | Role | Phone | + +------+ + | Allison Fairchild ADULT CAREGIVER | PCP | Unavailable | + +------+ + Reason for Referral Diagnostic/Screening (Routine) +--------+--------+ + + + + | Status | Reason | Specialty | Diagnoses / | Referred By | Referred To | | | | | Procedures | Contact | Contact | +--------+--------+ + + + + | Closed | | Radiology | Diagnoses | Rich Washington | [facility] | | | | | PAD | MD [address] | [address] | | | | | (peripheral | [address] | | | | | artery | [address] | [place], [place] | | | | | disease) | [place], [place] | [address] | | | | | ([facility]) | [address] | Phone: | | | | | Procedures | Phone: | [phone] | | | | | IR Stent | [phone] | Fax: | | | | | Iliac | Fax: | [phone] | | | | | | [phone] | | +--------+--------+ + + + + Diagnostic/Screening (Routine) +--------+--------+ + + + + | Status | Reason | Specialty | Diagnoses / | Referred By | Referred To | | | | | Procedures | Contact | Contact | +--------+--------+ + + + + | Closed | | Radiology | Diagnoses | Rich Washington | [facility] | | | | | PAD | [address] | | | | | (peripheral | [address] | [address] | | | | | artery | [address] [address] | [place], [place] | | | | | disease) | [place], [place] | [address] | | | | | ([facility]) | [address] | Phone: | | | | | Procedures | Phone: | [phone] | | | | | IR Stent | [phone] | Fax: | | | | | Iliac | Fax: | [phone] | | | | | | [phone] | | +--------+--------+ + + + + Reason for Visit Auth/Cert +--------+--------+ + + + + | Status | Reason | Specialty | Diagnoses / | Referred By | Referred To | | | | | Procedures | Contact | Contact | +--------+--------+ + + + + | | | | Diagnoses | | | | | | | PAD | | | | | | | (peripheral | | | | | | | artery | | | | | | | disease) | | | | | | | ([facility]) | | | | | | | Procedures | | | | | | | IR STENT | | | | | | | ILIAC | | | +--------+--------+ + + + + Encounter Details +--------+ + + + + | Date | Type | Department | Care Team | Description | +--------+ + + + + | 06/01/ | Hospital | [facility] | Rich Washington MD | PAD (peripheral | | 2019 - | Encounter | [facility] | [address] | artery disease) | | | | CARE FLOOR [address] | [place] [place], [place] | ([facility]) | | 06/02/ | | [address] | [address] | | | 2018 | | [place], [place] | [phone] | | | | | [address] | | | | | | [phone] | | | +--------+ + + + [...] + + + | Blood Pressure | 172/96 | 06/02/2019813 PDT | + + + + | Pulse | 91 | 06/02/2019813 PDT | + + + + | Temperature | 36.6 C (97.8 F) | 06/02/2019813 PDT | + + + + | Respiratory Rate | 20 | 06/02/2019813 PDT | + + + + | Oxygen Saturation | 92% | 06/02/2019813 PDT | + + + + | Inhaled Oxygen | - | - | | Concentration | | | + + + + | Weight | - | - | + + + + | Height | 180.3 cm (5' 11") | 06/01/2019 2300 PDT | + + + + | Body Mass Index | - | - | + + + + documented in this encounter Discharge Instructions Instructions Rich Washington MD - 06/01/2019 Discharge Instructions for Peripheral Angioplasty You had a procedure known as peripheral angioplasty. Peripheral arteries deliver blood to y our legs and feet. Over time,your artery choi may thicken and build up with a fatty subst ance (plaque). As plaque builds up in an artery,blood flow can be reduced or even blocked. This causes peripheral artery disease and problems in your legs and feet. Peripheral angiop lasty is a procedure that helps open blockages in peripheral arteries. Home care Don t drive for2 to 3days after the procedure or if you are taking opioid pain med icines. Rest for2 to 3days after the procedure. You will likely be able to go back to your n ormal activity within a few days. Don t lift anything heavier than10 pounds for 5 to 7 days. Take your temperature and check your incision site for signs of infection (redness, swel ling,drainage,or warmth) every day for a week. Keep a dressing on the incision site for at least 24 hours, or as directed by your docto r. Take your medicines exactly as directed. Don t skip doses. You can shower the day after the procedure. If you have stitches (sutures), avoid swimming or taking a bath [id number] after the p rocedure or until the stitches are removed. Unless directed otherwise, drink6 to 8glasses of water a day. This can prevent dehyd ration. It can also flush the dye used during your procedure out of your body. (Talk to your doctor first if you are on dialysis or have heart failure.) Eat a healthy diet that is low in fat, salt, and cholesterol. Ask your doctor for menus and other diet information. Begin an exercise program. Ask your doctor how to get started. You can benefit from simp le activities such as walking or gardening. If you are a smoker, try to break the smoking habit. Join a stop-smoking program to incr ease your chances of success. Follow-up If you have stitches or esteban, see your doctor to have them removed7 to 10 days afte r your procedure. When to call your healthcare provider Call your provider right away if you have any of the following: Fever of 100.4F (38C) Signs of infection at the incision site (redness, swelling, or warmth) Drainage from your incision Changes in color,temperature,feeling,or movement in either foot or leg Constant or increasing pain or numbness in your leg Leg swelling that does not improve overnight Bleeding, bruising, or a large swelling where the catheter was inserted Blood in your urine Black or tarry stools Dizziness or shortness of breath Date Last Reviewed: 02/06/201619991131-3441 [employer]. [address] [place] [id number]. All righ ts reserved. This information is not intended as a substitute for professional medical care. Always follow your healthcare professional's instructions. documented in this encounter Medications at Time [...] times daily. May | | | | | | capsule | increase to 600 [...] every 3 hours. | | | | | | immediate release | Maximum daily dose: | | | | | | tablet | 16 tablets | | | | | + + + +---------+ + + | promethazine | Take 25 mg by mouth | | 0 | | | | (PHENERGAN) 25 mg | every 6 hours as | | | | | | tablet | needed. | | [...] documented as of this encounter Progress Notes Shannan Tinajero, ELLIE - 06/01/2019 1841 PDTNo fax received regarding transport. Patient and fa flash agreeable to discharging tomorrow AM. Significant other left VM with [employer] [facility] [employer] regarding ride in the morning. Dr. Washington notified. Telephone order for home meds ga bapentin, lorazepam, robaxin, and magnesium. Electronically signed by Shannan Tinajero RN at 0 06/01/2019 18:43 Shannan Chávez RN - 06/01/2019 1543 PDTPer patient family patient arrive d this morning by medical transport. Patient will not be able to discharge until later this evening, when transport is not available. Received call from [facility] medical transport company that brought patient. She said they have the option of cynthia a local ambulance company. Received fax of form [phone] to be sent t o ambulance [employer]. After roberson is sent back we can forward to [facility] and they will approve or deny ride home for patient. All information provided by Nancy . Spoke to case management and gave him the forms to fill out. documented in this encounter Plan of Treatment Not on filedocumented as of this encounter Procedures + +--------+ + + + | Procedure Name | Priori | Date/Time | Associated Diagnosis | Comments | | | ty | | | | + +--------+ + + + | IR STENT ILIAC | Routin | 06/01/2019 | PAD (peripheral | Results for this | | | e | 14:34 PDT | artery disease) | procedure are in the | | | | | ([facility]) | results section. | + +--------+ + + + | CBC WITH | STAT | 06/01/2019 | | Results for this | | DIFFERENTIAL | | 12:50 PDT | | procedure are in the | | | | | | results section. | + +--------+ + + + | BASIC METABOLIC | STAT | 06/01/2019 | | Results for this | | PANEL | | 12:50 PDT | | procedure are in the | | | | | | results section. 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 Moderate conscious sedation2. | | | Ultrasound guided access of the right common femoral artery3. Right | | | iliac arteriogram4. Right distal common iliac artery to external | | | iliac artery stenting using 8 x 100 mm self-expanding stent SURGEON: | | | Rich Washington MD AUTOMOBILE UPHOLSTERY TRIM INSTALLER: None ANESTHESIA: Moderate sedation and local | | | anesthesia Informed consent was obtained from the patient. | | | Continuous cardiac monitoring was performed throughout the procedure. | | | Conscious sedation was provided by the nursing staff during the | | | procedure under my supervision. Sedation time: 10 | | | minutes Medications: 1 mg Versed IV, 50 Mcg Fentanyl IV | | | ESTIMATED BLOOD LOSS: Minimal CONTRAST: 12 mL of Isovue 250 | | | INDICATIONS: See preoperative history and physical FINDINGS: Right | | | iliac artery dissection was seen. After stenting, good angiographic | | | results. DESCRIPTION OF PROCEDURE: The patient was properly | | | identified and brought to the Multi Disciplined Language Analyst. The patient was placed supine | | | on the catheter table and patient was given moderate sedation by | | | nursing staff under my supervision. Patient's bilateral groins were | | | then prepped and draped in the usual sterile fashion. Local anesthetic | | | was given to the right groin and the right common femoral artery was | | | accessed under ultrasound guidance using a micropuncture needle. A | | | micropuncture sheath was inserted over a wire and up sized to a 6 | | | Somali sheath. A Omni flush catheter was then inserted into the distal | | | aorta and a right iliac arteriogram was then performed with the | | | findings as described above. Next, a 260 fix core wire was then | | | inserted over the catheter. Right distal common iliac artery to | | | external iliac artery was then stented using 8 x 100 mm self-expanding | | | stent. Due to dissection, the stent was not postdilated. A | | | final arteriogram was then performed through the sheath. The sheath | | | was then removed and a Mynx closure device was then used on the right | | | common femoral artery and hemostasis was ensured. The patient was then | | | taken to the observation unit for further monitoring. IMPRESSION: | | | 1. 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 After stenting, good angiographic results. | | |DESCRIPTION OF PROCEDURE: The patient was properly identified and brought | | |to the Multi Disciplined Language Analyst. The patient was placed supine on the catheter table and | | |patient was given moderate sedation by nursing staff under my supervision. | | |Patient's bilateral groins were then prepped and draped in the usual | | |sterile fashion. Local anesthetic was given to the right groin and the | | |right common femoral artery was accessed under ultrasound guidance using a | | |micropuncture needle. A micropuncture sheath was inserted over a wire and | | |up sized to a 6 Somali sheath. A Omni flush catheter was then inserted | | |into the distal aorta and a right iliac arteriogram was then performed | | |with the findings as described above. Next, a 260 fix core wire was then | | |inserted over the catheter. Right distal common iliac artery to external | | |iliac artery was then stented using 8 x 100 mm self-expanding stent. Due | | |to dissection, the stent was not postdilated. A final arteriogram was | | |then performed through the sheath. The sheath was then removed and a Mynx | | |closure device was then used on the right common femoral artery and | | |hemostasis was ensured. The patient was then taken to the observation unit | | |for further monitoring. | | | | | |IMPRESSION: | | | | | |1. 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 | | |2. After stenting, good angiographic results. | | | | | | | | + + ---+ + +---------+ + + | Performing | Address | City/State/Zipcode | Phone Number | | Organization | | | | + +---------+ + + | [facility] | | | | + +---------+ + + CBC with Differential (06/01/2019 12:50 PDT) + + + + + + | Component | Value | Ref Range | Performed | Pathologist | | | | | At | Signature | + + + + + + | WBC | 11.67 (H) | 3.80 - 11.00 | [facility] | | | | | K/uL | LABORATORY | | + + + + + + | RBC | 4.91 | 4.20 - 5.70 | [facility] | | | | | M/uL | LABORATORY | | + + + + + + | Hemoglobin | 14.2 | 13.2 - 17.0 | [facility] | | | | | g/dL | LABORATORY | | + + + + + + | Hematocrit | 43.0 | 39.0 - 50.0 % | [facility] | | | | | | LABORATORY | | + + + + + + | MCV | 87.6 | 80.0 - 100.0 fl | [facility] | | | | | | LABORATORY | | + + + + + + | MCH | 28.9 | 27.0 - 34.0 pg | [facility] | | | | | | LABORATORY | | + + + + + + | MCHC | 33.0 | 32.0 - 35.5 | [facility] | | | | | g/dL | LABORATORY | | + + + + + + | RDW-SD | 45.1 | 37 - 53 fl | [facility] | | | | | | LABORATORY | | + + + + + + | Platelet | 524 (H) | 150 - 400 K/uL | [...] + + + + | % | 64.32 | % | [facility] | | | Neutrophils | | | LABORATORY | | + + + + + + | % | 24.56 | % | [facility] | | | Lymphocytes | | | LABORATORY | | + + + + + + | Monocyte % | 8.47 | % | [facility] | | | | | | LABORATORY | | + + + + + + | Eosinophils | 1.47 | % | [facility] | | | % | | | LABORATORY | | + + + + + + | Basophils % | 1.18 | % | [facility] | | | | | | LABORATORY | | + + + + + + | Neutrophils | 7.51 (H) | 1.90 - 7.40 | [facility] | | | , Absolute | | K/uL | LABORATORY | | + + + + + + | Absolute | 2.87 | 1.00 - 3.90 | [facility] | | | Lymphocytes | | K/uL | LABORATORY | | + + + + + + | Absolute | 0.99 (H) | 0.00 - 0.80 | [facility] | | | Monocytes | | K/uL | LABORATORY | | + + + + + + | Eosinophils | 0.17 | 0.00 - 0.50 | [facility] | | | , Absolute | | K/uL | LABORATORY | | + + + + + + | Basophils, | 0.14 (H)Comment: Testing | 0.00 - 0.10 | [facility] | | | Absolute | performed at [facility];[address] | K/uL | LABORATORY | | | | [place] | | | | | | [address] | | | | + + + + + + + + | Specimen | + + | Blood | + + + + + + + | Performing | Address | City/State/Zipcode | Phone Number | | Organization | | | | + + + + + | [facility] | [address] | [place] [address] | [phone] | + + + + + Basic Metabolic Panel (06/01/2019 12:50 PDT) + + + + + + [...] + + + + | Creatinine | 0.97 | 0.70 - 1.30 | [facility] | | | | | mg/dL | LABORATORY | | + + + + + + | BUN/Creatin | 13 | | [facility] | | | ine Ratio | | | LABORATORY | | + + + + + + | Calcium | 9.6 | 8.5 - 10.5 | [facility] | | | | | mg/dL | LABORATORY | | + + + + + + | Estimated | >60Comment: GFR <60: | >60 | [facility] | | | GFR | CHRONIC [...] | | | | | | MDRD IDIL traceable | | | | | | equation.Testing | | | | | | performed at [facility] | | | | | | [facility];[place], [place] | | | | | | [address] | | | | + + + + + + + + | Specimen | + + | Blood | + + + + + + + | Performing | Address | City/State/Zipcode | Phone Number | | Organization | | | | + + + + + | [facility] | [address] | [place] [address] | [phone] | + + + + + documented in this encounter Visit Diagnoses + + | Diagnosis | + + | PAD (peripheral artery disease) (HCC) Unspecified disorders of arteries and | | arterioles | + + documented in this encounter Administered Medications + +--------+ +--------+------+------+ | Medication Order | MAR | Action | Dose | Rate | Site | | | Action | Date | | | | + +--------+ +--------+------+------+ | clopidogrel (PLAVIX) tablet | Given | 06/01/20 | 300 mg | | | | Oral, PRN, Starting 06/01/19 | | 19 14:26 | | | | | at 1426 | | PDT | | | | + +--------+ +--------+------+------+ +---+---+ | | | +---+---+ + +-------+ +---------+---+---+ | fentaNYL (PF) injection | Given | 06/01/20 | 100 mcg | | | | Intravenous, PRN, Starting Wed | | 19 14:05 | | | | | 06/01/19 at 1405 | | PDT | | | | + +-------+ +---------+---+---+ +---+---+ | | | +---+---+ + +-------+ +--------+---+---+ | gabapentin (NEURONTIN) capsule | Given | 06/02/20 | 600 mg | | | | 600 mg 600 mg, Oral, 2 TIMES | | 19 8:54 | | | | | DAILY, First dose on 06/01/19 | | PDT | | | | | at 2100 | | | | | | + +-------+ +--------+---+---+ +-------+ +--------+---+---+ | Given | 06/01/20 | 600 mg | | | | | 19 21:27 | | | | | | PDT | | | | +-------+ +--------+---+---+ +---+---+ | | | +---+---+ + +-------+ +--------+---+---+ | heparin 1,000 units/mL | Given | 06/01/20 | 5,000 | | | | injection Intravenous, PRN, | | 19 14:10 | Units | | | | Starting 06/01/19 at 1410 | | PDT | | | | + +-------+ +--------+---+---+ +---+---+ | | | +---+---+ + +-------+ + +---+---+ | HYDROcodone-acetaminophen | Given | 06/02/20 | 1 tablet | | | | (NORCO) 5-325 mg per tablet 1-2 | | 19 8:54 | | | | | tablet 1-2 tablet, Oral, EVERY 4 | | PDT | | | | | HOURS PRN, Pain, Starting Wed | | | | | | | 06/01/19 at 1419 | | | | | | + +-------+ + +---+---+ +-------+ + +---+---+ | Given | 06/02/20 | 1 tablet | | | | | 19 3:32 | | | | | | PDT | | | | +-------+ + +---+---+ | Given | 06/01/20 | 1 tablet | | | | | 19 14:54 | | | | | | PDT | | | | +-------+ + +---+---+ +---+---+ | | | +---+---+ + +-------+ +--------+---+---+ | iohexol (OMNIPAQUE 240) 240 | Given | 06/01/20 | 12 mLs | | | | mg/mL injection Intravenous, | | 19 14:19 | | | | | PRN, Starting Thu06/01/19 at 1419 | | PDT | | | | + +-------+ +--------+---+---+ +---+---+ | | | +---+---+ + +-------+ +--------+---+---+ | lidocaine 1% injection PRN, | Given | 06/01/20 | 10 mLs | | | | Starting Thu06/01/19 at 1405 | | 19 14:05 | | | | | | | PDT | | | | + +-------+ +--------+---+---+ + +---+ | | | + +---+ | LORazepam (ATIVAN) tablet 2 mg | | | 2 mg, Oral, EVERY 6 HOURS PRN, | | | Anxiety, Starting Thu06/01/19 at | | | 1840 | | + +---+ | | | + +---+ | magnesium oxide tablet 250 mg | | | 250 mg, Oral, 3 TIMES DAILY PRN, | | | For muscle spasms, Starting Wed | | | 06/01/19 at 1841 | | + +---+ | | | + +---+ | methocarbamol (ROBAXIN) tablet | | | 1,000 mg 1,000 mg, Oral, 4 TIMES | | | DAILY PRN, Muscle spasms, | | | Starting 06/01/19 at 1840 | | + +---+ | | | + +---+ | metoclopramide (REGLAN) 5 mg/mL | | | injection 10 mg 10 mg, | | | Intravenous, EVERY 4 HOURS PRN, | | | Nausea, Vomiting, Starting Wed | | | 06/01/19 at 1443, Use if | | | ondansetron and prochlorperazine | | | ineffective after 30min or not | | | ordered. Use PO option unless | | | NPO status or unable to tolerate. | | | Protect from light., | | | Post-op/Phase II | | + +---+ | | | + +---+ | metoclopramide (REGLAN) tablet | | | 10 mg 10 mg, Oral, EVERY 4 HOURS | | | PRN, Nausea, Vomiting, Starting | | | Thu06/01/19 at 1443, Use if | | | ondansetron and prochlorperazine | | | ineffective after 30min or not | | | ordered, Post-op/Phase II | | + +---+ | | | + +---+ + +-------+ +------+---+---+ | midazolam (VERSED) injection | Given | 06/01/20 | 1 mg | | | | Intravenous, PRN, Starting Thu | | 14:05 | | | | | 06/01/19 at 1405 | | PDT | | | | + +-------+ +------+---+---+ + +---+ | | | + +---+ | ondansetron (ZOFRAN ODT) | | | disintegrating tablet 4 mg 4 mg, | | | Oral, EVERY 6 HOURS PRN, Nausea, | | | Vomiting, Starting Thu06/01/19 | | | at 1443, First line agent, | | | Post-op/Phase II | | + +---+ | | | + +---+ | ondansetron (ZOFRAN) injection | | | 4 mg 4 mg, Intravenous, EVERY 6 | | | HOURS PRN, Nausea, Vomiting, | | | Starting Thu06/01/19 at 1443, | | | First line agent. Use PO option | | | unless NPO status or unable to | | | tolerate., Post-op/Phase II | | + +---+ | | | + +---+ + +---------+ +---+-------+---+ | sodium chloride 0.9% (NS) | New Bag | 06/01/20 | | 100 | | | infusion at 100 mL/hr, | | 19 13:10 | | mL/hr | | | Intravenous, CONTINUOUS, Starting | | PDT | | | | | Thu06/01/19 at 1300, Pre-op | | | | | | + +---------+ +---+-------+---+ +---+---+ | | | +---+---+ documented in this encounter
--- OUTSIDE RECORDS SUMMARY | ~2019-07-03 | XMS | Encounter Summary ---
Demographics + + + | Address | [address] | | | [place] [address] | + + + | Home Phone | | + + + | Preferred Language | Unknown | + + + | Marital Status | | + + + | Evangelical Affiliation | Unknown | + + + | Race | White | + + + | Ethnic Group | Not or | + + + Author + + + | Author | [facility] | + + + | Organization | [facility] | + + + | Address | Unknown | + + + | Phone | Unavailable | + + + Support + + +---------+ + | Name | Relationship | Address | Phone | + + +---------+ + | Maria Isabel Cespedes | ECON | Unknown | | + + +---------+ + Care Team Providers + +------+ + | Care Ampoule Filler And Sealer Name | Role | Phone | + [...] stenosis (HCC) | | | | at [address] | | | | | | [address] | | | | | | [place] Kh[place], | | | | | | [place] [address] | | | | | | [phone] | | | +--------+------+ + + + [...] | + + + + + | [facility] | [address] | [place] [address] | | | SERVICES, CORE | PARK [...] by | | | | | | [employer],[address] | | | | | | Manohar Lacey, [facility] | | | | | | [address] | | | | | | [phone].[employer] [facility]. | | | | | | [...] + | [facility] | [address] | [place], [place] | | | UNIV PTH - INTFC | | [address] | | + + + + + [...] [facility] | [address] | [place] [address] | | | SERVICES, CORE | PARK [...] | | | LABORATORY | | | LITHUANIAN | | | SERVICES, | | | [...] MDRD equation recommended by the National | [facility] | | Kidney Disease Education Program. [...] [facility] | [address] | [place] [address] | | | SERVICES, CORE | PARK [...] | + + + + + | [facility] [employer] | [address] | [place] [address] | | | SERVICES, CORE | [address] | | | + + + + + documented in this encounter Visit Diagnoses + + | Diagnosis | + + | Renal artery stenosis (HCC) Atherosclerosis of renal artery | + + documented in this encounter"
--- OUTSIDE RECORDS SUMMARY | ~2019-07-03 | XMS | Clinical Summary ---
Demographics + + + | Address | [address] | | | [place] [address] | + + + | Home Phone | | + + + | Preferred Language | Unknown | + + + | Marital Status | | + + + | Jain Affiliation | Unknown | + + + | Race | White | + + + | Ethnic Group | Not or | + + + Author + + + | Author | [facility] | + + + | Organization | [facility] | + + + | Address | Unknown | + + + | Phone | Unavailable | + + + Support + + +---------+ + | Name | Relationship | Address | Phone | + + +---------+ + | Maria Isabel Cespedes | ECON | Unknown | | + + +---------+ + Care Team Providers + +------+ + | Care Test Driver Name | Role | Phone | + +------+ + | Allison Fairchild NP | PCP | | + +------+ + Source Comments TANYA is fully live on both [facility] Ambulatory and [facility] InPatient.[facility] Allergies + + + + + + | Active Allergy | Reactions | Severity | Noted | Comments | | | | | Date | | + + + + + + | Adhesive Tape | Unknown | Medium | 03/24/20 | Causes welts | | | | | 14 | Causes welts if left | | | | | | in place for long | + + + + + + | Haloperidol | Unknown | High | 10/31/19 | Neck stiffness | | | | | 15 | neck muscle | | | | | | stiffness Throat | | | | | | Swelled Stiff Neck | + + + + + + | Penicillins | Unknown | | 08/15/20 | | | | | | 13 | | + + + + + + Medications + + + +---------+------+------+-------+ | Medication | Sig | Dispensed | Refills | Star | End | Statu | | | | | | t | Date | s | | | | | | Date | | | + + + +---------+------+------+-------+ | LORazepam 2 mg | Take 2 mg by mouth | | 0 | 02/1 | | Activ | | oral tablet | as needed. | | | 20 | | e | | | | | | 19 | | | + + + +---------+------+------+-------+ | gabapentin 300 mg | Take 300 mg by mouth | | 0 | 02/1 | | Activ | | oral capsule | once daily as | | | 20 | | e | | | needed. | | | 19 | | | + + + +---------+------+------+-------+ | ondansetron ODT 4 | as needed. | | 0 | 01/2 | | Activ | | mg oral | | | | 20 | | e | | tablet,disintegratin | | | | 19 | | | | g | | | | | | | + + + +---------+------+------+-------+ | ondansetron ODT 4 | DISSOLVE ONE TABLET | | 0 | 01/2 | | Activ | | mg oral | IN MOUTH EVERY SIX | | | /20 | | e | | tablet,disintegratin | HOURS NEEDED FOR | | | 19 | | | | g | NAUSEA | | | | | | + + + +---------+------+------+-------+ | tamsulosin 0.4 mg | Take 0.4 mg by mouth | | 0 | | | Activ | | oral capsule | once daily. | | | | | e | + + + +---------+------+------+-------+ | VENTOLIN HFA 90 | as needed. | | 0 | 01/2 | | Activ | | mcg/actuation | | | | 09/26 | | e | | inhalation HFA | | | | 19 | | | | aerosol inhaler | | | | | | | + + + +---------+------+------+-------+ | amLODIPine 10 mg | Take 10 mg by mouth | | 0 | /2 | | Activ | | oral tablet | once daily. | | | 05/27 | | e | | | | | | 19 | | | + + + +---------+------+------+-------+ | ELIQUIS 5 mg oral | Take 5 mg by mouth | | 0 | 12/2 | | Activ | | tablet | two times daily. | | | 04/26 | | e | | | | | | 18 | | | + + + +---------+------+------+-------+ | jb-xeb-vmgtd | Chew and swallow. | | 0 | | | Activ | | acid-lutein (CENTRUM | | | | | | e | | SILVER) 400-250 mcg | | | | | | | | oral | | | | | | | | tablet,chewable | | | | | | | + + + +---------+------+------+-------+ | docusate sodium | Take 100 mg by | | 0 | | | Activ | | 100 mg oral capsule | mouth. | | | | | e | + + + +---------+------+------+-------+ | magnesium oxide | Take 400 mg by mouth | | 0 | 01/2 | | Activ | | 400 mg oral tablet | three times daily. | | | /20 | | e | | | | | | 19 | | | + + + +---------+------+------+-------+ | oxyCODONE | Take 30 mg by mouth | | 0 | 02/1 | | Activ | | (immediate release) | as needed. | | | /20 | | e | | 15 mg oral tablet | | | | 19 | | | + + + +---------+------+------+-------+ | omeprazole 20 mg | as needed. | | 0 | 02/0 | | Activ | | oral capsule,delayed | | | | 6/20 | | e | | release(/EC) | | | | 19 | | | + + + +---------+------+------+-------+ | methocarbamol 500 | Take 1,000 mg by | | 0 | 02/1 | | Activ | | mg oral tablet | mouth four times | | | 5/20 | | e | | | daily. | | | 19 | | | + + + +---------+------+------+-------+ Active Problems No known active problems Social History + +-------+ +--------+------+ | Tobacco [...] + + + | Blood Pressure | 113/82 | 03/11/2019 12:26 PM | | | | | PDT | | + + + + + | Pulse | 79 | 03/11/2019 12:26 PM | | | | | PDT [...] Weight | 99.8 kg (220 lb) | 03/11/2019 12:26 PM | | | | | PDT | | + + + + + | Height | 180.3 cm (5' 11") | 11/02/2018 3:15 PM | | | | | PST | | + + + + + | Body Mass Index | 30.68 | 11/02/2018 3:15 PM | | | | | PST | | + + + + + Plan of Treatment + + + + + | Health Maintenance | Due Date | Last Done | Comments | + + + + + | Influenza (Flu) | | 06/26/2017, 06/26/2017, | | | vaccination (#1) | 9 | 06/23/2016, Additional history | | | | | exists | | + + + + + | Pneumococcal | Aged Out | | No longer eligible | | vaccination | | | based on patient's | | | | | age to complete this | | | | | topic | + + + + + Results Not on filefrom Last 3 Months Insurance + +--------+ +--------+ + +--------+ | Payer | Benefi | Subscriber | Effect | Phone | Address | Type | | | t Plan | ID | everett | | | | | | / | | Dates | | | | | | Group | | | | | | + +--------+ +--------+ + +--------+ | SAIF | SAIF | [id number] | 07/26/ | [phone] | [address] | Worker | | | | | [address]-P | [address] | s Comp | | | | | resent | | [place], [place] | | | | | | | | [address] | | + +--------+ +--------+ + +--------+ | C 13 CATAPULT OPERATOR MEDICAID | C 13 CATAPULT OPERATOR | xxxxxxxx | 09/11/19 | | | Medica | | | EAST[place] | | 18-Pre | | | id | | | [place] | | sent | | | | + +--------+ +--------+ + +--------+ + +--------+ +--------+ + + | Guarantor Name | Accoun | Relation to | Date | Phone | Billing Address | | | t Type | Patient | of | | | | | | | | | | + +--------+ +--------+ + + | Reza Cespedes | Person | Self | [birth year] | | [address] | | | al/Fam | | 1961 | [phone] | [place] [address] | | | valentín | | | 1 (Home) | | + +--------+ +--------+ + + | Reza Cespedes | Worker | Self | [birth year] | | [address] | | | s Comp | | 1961 | [phone] | [place] [address] | | | | | | 1 (Home) | | + +--------+ +--------+ + +
--- OUTSIDE RECORDS SUMMARY | ~2019-07-03 | XMS | Encounter Summary ---
Demographics + + + | Address | [address] | | | [place] [address] | + + + | Home Phone | | + + + | Preferred Language | Unknown | + + + | Marital Status | | + + + | Spiritism Affiliation | Unknown | + + + | Race | White | + + + | Ethnic Group | Not or | + + + Author + + + | Author | [facility] | + + + | Organization | [facility] | + + + | Address | Unknown | + + + | Phone | Unavailable | + + + Support + + +---------+ + | Name | Relationship | Address | Phone | + + +---------+ + | Maria Isabel Cespedes | ECON | Unknown | | + + +---------+ + Care Team Providers + +------+ + | Care Athletic Director Name | Role | Phone | + +------+ + | Allison Fairchild NP | PCP | | + +------+ + Encounter Details +--------+ + + + + | Date | Type | Department | Care Team | Description | +--------+ + + + + | 11/02/ | Telephone | Rheumatology at | Debbie Em, | | | 2019 | | Sahra Ybarra | [address] | | | | | [address] | [address] | | | | | [place] Kh[place] Mailcode: | [place], [place] | | | | | [address] Phys[address]'s | [address] | | | | | [address], [facility] [address] | [phone] | | | | | [place] | | | | | | [address] | | | | | | [phone] | | | +--------+ + + + [...]
--- OUTSIDE RECORDS SUMMARY | ~2019-07-03 | XMS | Encounter Summary ---
Demographics + + + | Address | [address] | | | [place] [address] | + + + | Home Phone | | + + + | Preferred Language | Unknown | + + + | Marital Status | | + + + | Yazdanism Affiliation | Unknown | + + + | Race | White | + + + | Ethnic Group | Not or | + + + Author + + + | Author | [facility] | + + + | Organization | [facility] | + + + | Address | Unknown | + + + | Phone | Unavailable | + + + Support + + +---------+ + | Name | Relationship | Address | Phone | + + +---------+ + | Maria Isabel Cespedes | ECON | Unknown | | + + +---------+ + Care Team Providers + +------+ + | Care Quality Assurance Associate Name | Role | Phone | + +------+ + | Allison Fairchild BATCH ATTENDANT | PCP | | + +------+ + Reason for Referral Diagnostic Testing (Routine) +--------+--------+ + + + + | Status | Reason | Specialty | Diagnoses / | Referred By | Referred To | | | | | Procedures | Contact | Contact | +--------+--------+ + + + + | Closed | | Radiology | Diagnoses | | Rad Ct Scan | | | | | Renal | [facility] s [address] | | | | | artery | MD Debbie | [address] | | | | | stenosis | [address] | [place] | | | | | ([facility]) | [address] | Mailcode: | | | | | Procedures | Rd | [address] [facility] | | | | | CTA ABDOMEN | [facility] | | | | | AND PELVIS W | [address] | [facility] [place] | | | | | IV CONTRAST | Phone: | [phone] | | | | | [place] | [phone] | Phone: | | | | | ANGIO, ABD | Fax: | [phone] | | | | | AND PELVS | [phone] | Fax: | | | | | INCL IMAG | | [phone] | | | | | PROC | | | +--------+--------+ + + + + Encounter Details +--------+ + + + + | Date | Type | Department | Care Team | Description | +--------+ + + + + | 02/22/ | Telephone | Rheumatology at | Debbie Em, | | | 2019 | | Physicians [address] | MD [address] | | | | | [address] | [address] | | | | | [place] Khanna Mailcode: | [place], [place] | | | | | [address] | [phone] | | | | | [address], [address] Floor | [phone] | | | | | [place], [place] | | | | | | [address] | | | | | | [phone] | | | +--------+ + + + [...] on filedocumented as of this encounter Results RPR SERUM (03/11/2019 10:19 AM PDT) + [...] by | | | | | | [employer],[address] | | | | | | Manoh[address]acey, [facility] [place] | | | | | | [address] | | | | | | [phone].[email or web address]. | | | | | | Melecio [...] [facility] | [address] | [place], [place] | | | UN[facility] P[facility] - INTFC | | [address] | | + + + + + [...] + | [facility] | [address] | [place] [address] | | | SERVICES, CORE | PARK [...] | | | LABORATORY | | | [place] | | | SERVICES, | | | [...] MDRD equation recommended by the National | [facility] | | Kidney Disease Education Program. Estimated GFR Interpretive | LABORATORY | | Information: <60 mL/min/1.73 sq m Chronic Kidney | SERVICES, [facility] | | Disease <15 mL/min/1.73 sq m [...] | + + + + + | [facility] | [address] | [place] [address] | | | [place], [place] | [address] | | | [...] | + + + + + | [facility] | [address] | [place] [address] | | | [place]OOGIE | [address] | | | + + + + + CTA ABDOMEN AND PELVIS W IV CONTRAST (03/11/2019 9:56 AM PDT) + + | Specimen | + + | | + + + + + | Narrative | Performed At | + + + | CTA ABDOMEN/PELVIS INDICATION: Renal artery stenosis | [facility] | | TECHNIQUE: Noncontrast CT from the top of the diaphragm to the | RADIOLOGY VOICE | | midthighs was performed in the axial plane with helical acquisition. | RECOGNITION 2 | | Using bolus tracking technique, CT angiogram with the same field of | | | view was obtained after the uneventful administration of 125 mL | | | Omnipaque 350 intravenous contrast. Venous phase imaging was also | | | performed from the knees to the bottom of the feet. 3D post-processed | | | images were created, filmed, and archived. COMPARISON: CTA chest, | | | abdomen, and pelvis 02/21/2019, CTA abdomen and pelvis 01/26/2018 | | | FINDINGS: Abdominal aorta: Patent. No aneurysmal dilatation. | | | Celiac axis: Patent. SMA: Patent. YUE: Patent. Right renal artery: | | | Single. Previously described right renal artery stenosis and edema | | | seen on CTA 01/26/2018 is no longer evident. Left renal artery: | | | Single. Patent. RIGHT: Common iliac artery: Patent. Minimal | | | atherosclerotic plaque. Dissection flap beginning in the distal | | | segment remains unchanged, with partial thrombosis. Internal iliac | | | artery: Patent, arising from the false lumen via a fenestration. | | | External iliac artery: Unchanged right external iliac dissection | | | extending from the origin to the level of the right common femoral | | | artery. Common femoral artery: Patent. Profunda femoris artery: | | | Visualized portion is patent. Superficial femoral artery: Visualized | | | portion is patent. LEFT: Common iliac artery: Patent. Internal | | | iliac artery: Patent. External iliac artery: Patent. Common femoral | | | artery: Patent. Profunda femoris artery: Visualized portion is | | | patent. Superficial femoral artery: Visualized portion is patent. | | | LOWER THORAX: The visualized heart base is unremarkable. The | | | visualized lung yuan are clear. HEPATOBILIARY: The liver is | | | unremarkable. The gallbladder is surgically absent. SPLEEN: No | | | splenomegaly. PANCREAS: No focal masses or ductal dilatation. | | | ADRENALS: Unremarkable. KIDNEYS/URETERS: No hydronephrosis, stones, | | | or solid mass lesions. Nonenhancing wedge-shaped defect in the right | | | mid kidney is unchanged from 02/21/2019, and likely represents a prior | | | infarct. Simple cysts in the left mid kidney is unchanged. PELVIC | | | ORGANS/BLADDER: Unremarkable PERITONEUM / RETROPERITONEUM: No free | | | air or fluid. LYMPH NODES: No lymphadenopathy. GI TRACT: No | | | distention or wall thickening. BONES AND SOFT TISSUES: Postsurgical | | | changes of prior anterior abdominal wall hernia repairs redemonstrated | | | with an unchanged small midline abdominal wall hernia. Postsurgical | | | and posttraumatic changes of right iliac wing pubic rami and sacrum | | | are redemonstrated. No acute osseous abnormality. Degenerative changes | | | throughout the lumbar spine are noted. 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 Unchanged small midline | | | abdominal wall hernia. I have personally reviewed the | | | images and, if necessary, edited the report. I agree with the report | | | as now presented. Final signature: Lazaro Almaguer MD | | | 03/12/2019 1:32 PM Preliminary: Jose Gil DO Dictation | | | initiated: Jose Gil DO 03/11/2019 12:28 PM | | + + + + + | Procedure Note | + + | Service Account, [employer] Res In Interface - 03/12/2019 1:33 PM PDT CTA | | ABDOMEN/PELVIS INDICATION:Renal artery stenosis TECHNIQUE:Noncontrast CT from the top | | of the diaphragm to the midthighs was performed in the axial plane with helical | | acquisition. Using bolus tracking technique, CT angiogram with the same field of view | | was obtained after the uneventful administration of 125 mL Omnipaque 350 intravenous | | contrast. Venous phase imaging was also performed from the knees to the bottom of the | | feet. 3D post-processed images were created, filmed, and archived. COMPARISON:CTA chest, | | abdomen, and pelvis 02/21/2019, CTA abdomen and pelvis 01/26/2018 FINDINGS: Abdominal | | aorta: Patent. No aneurysmal dilatation.Celiac axis: Patent.SMA: Patent.YUE: | | Patent.Right renal artery: Single. Previously described right renal artery stenosis and | | edema seen on CTA 01/26/2018 is no longer evident.Left renal artery: Single. Patent. | | RIGHT:Common iliac artery: Patent. Minimal atherosclerotic plaque. Dissection flap | | beginning in the distal segment remains unchanged, with partial thrombosis.Internal | | iliac artery: Patent, arising from the false lumen via a fenestration.External iliac | | artery: Unchanged right external iliac dissection extending from the origin to the level | | of the right common femoral artery.Common femoral artery: Patent.Profunda femoris | | artery: Visualized portion is patent.Superficial femoral artery: Visualized portion is | | patent. LEFT:Common iliac artery: Patent.Internal iliac artery: Patent.External iliac | | artery: Patent.Common femoral artery: Patent.Profunda femoris artery: Visualized portion | | is patent.Superficial femoral artery: Visualized portion is patent. LOWER THORAX: The | | visualized heart base is unremarkable. The visualized lung yuan are | | clear.HEPATOBILIARY: The liver is unremarkable. The gallbladder is surgically | | absent.SPLEEN: No splenomegaly.PANCREAS: No focal masses or ductal dilatation.ADRENALS: | | Unremarkable.KIDNEYS/URETERS: No hydronephrosis, stones, or solid mass lesions. | | Nonenhancing wedge-shaped defect in the right mid kidney is unchanged from 02/21/2019, | | and likely represents a prior infarct. Simple cysts in the left mid kidney is unchanged. | | PELVIC ORGANS/BLADDER: UnremarkablePERITONEUM / RETROPERITONEUM: No free air or | | fluid.LYMPH NODES: No lymphadenopathy.GI TRACT: No distention or wall thickening. BONES | | AND SOFT TISSUES: Postsurgical changes of prior anterior abdominal wall hernia repairs | | redemonstrated with an unchanged small midline abdominal wall hernia. Postsurgical and | | posttraumatic changes of right iliac wing pubic rami and sacrum are redemonstrated. No | | acute osseous abnormality. Degenerative changes throughout the lumbar spine are noted. | | IMPRESSION: Unchanged right external iliac dissection extending from the distal common | | iliac artery to the level of the common femoral artery. 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 Unchanged small | | midline abdominal wall hernia. I have personally reviewed the images and, if | | necessary, edited the report. I agree with the report as now presented. Final | | signature: Lazaro Almaguer MD 03/12/2019 1:32 PM Preliminary: Jose Gil DO | | Dictation initiated: Jose Gil DO 03/11/2019 12:28 PM | |SPLEEN: No splenomegaly. | |PANCREAS: No focal masses or ductal dilatation. | |ADRENALS: Unremarkable. | |KIDNEYS/URETERS: No hydronephrosis, stones, or solid mass lesions. Nonenhancing wedge-shape d defect in the right mid kidney is unchanged from 02/21/2019, and likely represents a prior infarct. Simple cysts in the left mid kidney is unchanged. | |PELVIC ORGANS/BLADDER: Unremarkable | |PERITONEUM / RETROPERITONEUM: No free air or fluid. | |LYMPH NODES: No lymphadenopathy. | |GI TRACT: No distention or wall thickening. | |BONES AND SOFT TISSUES: Postsurgical changes of prior anterior abdominal wall hernia repair s redemonstrated with an unchanged small midline abdominal wall hernia. Postsurgical and pos ttraumatic changes of right | |iliac wing pubic rami and sacrum are redemonstrated. No acute osseous abnormality. Degenera tive changes throughout the lumbar spine are noted. 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 | | | |Unchanged small midline abdominal wall hernia. | | | | | | | | | | | |I have personally reviewed the images and, if necessary, edited the report. I agree with e report as now presented. | | | |Final signature: Lazaro Almaguer MD 03/12/2019 1:32 PM | |Preliminary: Jose Gil DO | |Dictation initiated: Jose Gil DO 03/11/2019 12:28 PM | + + + +---------+ + + | Performing | Address | City/State/Zipcode | Phone Number | | Organization | | | | + +---------+ + + | [facility] | | | | | VOICE RECOGNITION 2 | | | | + +---------+ + + documented in this encounter Visit Diagnoses + + | Diagnosis | + + | Renal artery stenosis (HCC) - Primary Atherosclerosis of renal artery | + + documented in this encounter"
--- OUTSIDE RECORDS SUMMARY | ~2019-07-03 | XMS | Encounter Summary ---
Demographics + + + | Address | [address] | | | [place] [address] | + + + | Home Phone [...] | Author | [facility] | | | and [place] | + + + | Organization | [facility] | | | and [...] [place] | | | | | [address] | | + + + + + Care Team Providers + +------+ + | Care Cadworx Piping Designer Name | Role | Phone | + +------+ + | Allison Fairchild NP | PCP | Unavailable | + +------+ + Encounter Details +--------+ + + + + | Date | Type | Department | Care Team | Description | +--------+ + + + + | 05/31/ | Telephone | [facility] | Rich Washington MD | | | 2019 | | CENTER CV INTRA OP | [address] | | | | | [address] | [place] | | | | | [place] | [address] | | | | | [address] | [phone] | | | | | [phone] | | | +--------+ + + + [...]
--- OUTSIDE RECORDS SUMMARY | ~2019-07-03 | XMS | Encounter Summary ---
Demographics + + + | Address | [address] | | | [place] [address] | + + + | Home Phone | | + + + | Preferred Language | Unknown | + + + | Marital Status | | + + + | Spiritism Affiliation | Unknown | + + + | Race | White | + + + | Ethnic Group | Not or | + + + Author + + + | Author | [facility] | + + + | Organization | [facility] | + + + | Address | Unknown | + + + | Phone | Unavailable | + + + Support + + +---------+ + | Name | Relationship | Address | Phone | + + +---------+ + | Maria Isabel Cespedes | ECON | Unknown | | + + +---------+ + Care Team Providers + +------+ + | Care Insurance Policy Clerk Name | Role | Phone | + +------+ + | Allison Fairchild AIRCRAFT BODY REPAIRER | PCP | | + +------+ + [...] Dorian Khanna | | | | | ([facility]) | Krishan Ferrari | Mailcode: | | | | | Procedures | Rd | [address] [facility] | | | | | CTA ABDOMEN | [facility] | | | | | AND PELVIS W | [address] | [facility] [place] | | | | | IV CONTRAST | Phone: | [address] | | | | | [address] | [phone] | Phone: | | | | | ANGIO, ABD | Fax: | [phone] | | | | | AND PELVS | [phone] | Fax: | | | | | INCL IMAG | | [phone] | | | | | PROC | [...] | | | Dorian Khanna Mailcode: | [place], [place] | | | | | [address] Physician's | [address] | | | | | [address], [address] Floor | [phone] | | | | | [place], [place] | | | | | | [address] | | | | | | [phone] | | | +--------+ + + + [...] by | | | | | | [address] | | | | | | Manohar Lacey, [facility] | | | | | | [address] | | | | | | [phone].[employer]. | | | | | | Melecio [...] REG | [address] | [place], [place] | | | UNIV PTH - INTFC | | [address] | | + + + + + [...] [facility] | [address] | [place] [address] | | | SERVICES, CORE | PARK [...] | | | LABORATORY | | | [place] | | | SERVICES, | | | [...] MDRD equation recommended by the National | [facility] | | Kidney Disease Education Program. Estimated GFR Interpretive | LABORATORY | | Information: <60 mL/min/1.73 sq m Chronic Kidney | SERVICES, [facility] | | Disease <15 [...] | + + + + + | [facility] | [address] | [place] [address] | | | CHUYITA, [place]TEGA | DORIAN [...] | + + + + + | [facility] | [address] | [place] [address] | | | [place] BOOGIE | DORIAN [...] | | as now presented. Final signature: Lazaor Almaguer MD | | | 03/12/2019 1:32 PM Preliminary: Jose Gil DO Dictation | | | initiated: Jose Gil DO 03/11/2019 12:28 PM | | + + + + + | Procedure Note | + + | Service Account, [employer] Res In Interface - 03/12/2019 1:33 PM [...]
--- OUTSIDE RECORDS SUMMARY | ~2019-07-03 | XMS | Encounter Summary ---
Demographics + + + | Address | [address] | | | [place] [address] | + + + | Home Phone | | + + + | Preferred Language | Unknown | + + + | Marital Status | | + + + | Baptism Affiliation | Unknown | + + + | Race | White | + + + | Ethnic Group | Not or | + + + Author + + + | Author | [facility] | + + + | Organization | [facility] | + + + | Address | Unknown | + + + | Phone | Unavailable | + + + Support + + +---------+ + | Name | Relationship | Address | Phone | + + +---------+ + | Maria Isabel Cespedes | ECON | Unknown | | + + +---------+ + Care Team Providers + +------+ + | Care Cloud Physicist Name | Role | Phone | + [...] | | | | | Vonda Khanna [place], | | | | | | [place] [address] | | | +--------+--------+ + + + [...]
--- OUTSIDE RECORDS SUMMARY | ~2019-07-03 | XMS | Clinical Summary ---
Demographics + + + | Address | [address] | | | [place] [address] | + + + | Home Phone | | + + + | Preferred Language | Unknown | + + + | Marital Status | | + + + | Church Affiliation | 1013 | + + + | Race | Unknown | + + + | Ethnic Group | Unknown | + + + Author + + + | Author | [facility] | | | and Alexana | + + + | Organization | [facility] | | [...] [place] | | | | | [address] | | + + + + + Care Team Providers + +------+ + | Care Bottle Feeder Name | Role | Phone | + +------+ + | Allison Fairchild NP | PCP | Unavailable | + +------+ + Allergies + + [...] + + + + | Penicillins | Other (See | High | 04/21/20 | Reaction unknown | | | Comments), | | 13 | (as a child) Other | | | Anaphylaxis | | | reaction(s): Patient | | | | | | Does Not Remember | | | | | | Reaction unknown (as | | | | | | a child) Reaction | | | | | | unknown (as a child) | | | | | | Reaction | | | | | | unknown (as a child) | + + + [...] | + + + +---------+------+------+-------+ | ondansetron | Take 4 mg by mouth | | 0 | | | Activ | | (ZOFRAN ODT) 4 mg | every 6 hours as | | | | | e | | disintegrating | needed for Nausea. | | | | | | | tablet | | | | | | | + + + +---------+------+------+-------+ | oxyCODONE | Take 15-30 mg by | | 0 | | | Activ | | (ROXICODONE) 15 mg | mouth every 3 hours. | | | | | e | | immediate release | Maximum daily [...] | + + + +---------+------+------+-------+ | gabapentin | Take 300 mg by mouth | | 0 | | | Activ | | (NEURONTIN) 300 mg | 3 times daily. May | | | | | e | | capsule | increase to 600 mg | | | | | | | | by mouth twice daily | | | | | | + [...] | + + + +---------+------+------+-------+ | omeprazole | Take 1 capsule by | 90 | 3 | 01/1 | | Activ | | (PRILOSEC) 20 mg | mouth every morning | capsule | | 0/20 | | e | | capsuleIndications: | (before breakfast). | | | 19 | | | | Gastroesophageal | | | | | | | | reflux disease, | | | | | | | | esophagitis presence | | | | | | | | not specified | | | | | | | + + + +---------+------+------+-------+ | promethazine | Take 25 mg by mouth | | 0 | | | Activ | | (PHENERGAN) 25 mg | every 6 hours as | | | | | e | | tablet | needed. | | | | | | + [...] tablet by | 30 | 11 | 09/2 | | Activ | | (PLAVIX) 75 mg | mouth Daily. | tablet | | 5/20 | | e | | tablet | | | | 19 | | | + + + +---------+------+------+-------+ Active Problems + + + | Problem | Noted Date | + + + | Acute pain [...] which he was flown to | | [facility] and had multiple injuries to his gallbladder [...] satiety | 10/22/2015 | + + + Encounters +--------+ + + + + | Date | Type | Specialty | Care Team | Description | +--------+ + + + + | 06/01/ | Hospital | Internal Medicine | Rich [place] MD | PAD (peripheral | | 2018 - | Encounter | | | artery disease) | | | | | | (HCC) | | 06/02/ | | | | | | 2018 | | | | | +--------+ + + + + | 05/31/ | Telephone | Radiology | iRch [place] MD | | | 2018 | | | | | +--------+ + + + + | 05/26/ | Office | Vascular Surgery | Rich Washington MD | PAD (peripheral | | 2018 | Visit | | | artery disease) | | | | | | (HCC) (Primary Dx); | | | | | | 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) | +--------+ + + + + | 04/26/ | Orders Only | Vascular Surgery | Rich [place] MD | Iliac artery | | 2018 | | | | dissection (HCC) | | | | | | (Primary Dx) | +--------+ + + + + | 04/26/ | Orders Only | Vascular Surgery | Tyron Hsu DNP | 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) | | | | | | (Primary Dx) | +--------+ + + + + from Last 3 Months Immunizations + + + + | Name | Dates Previously Given | Next Due | + + + + | INFLUENZA PF | 06/23/2016, 06/23/2016, 06/18/2015, | | | QUAD(PED/ADOL/ADULT) | 06/18/2015 | | | ,PSKT or VIAL [...] 99.4 kg (219 lb 2.2 | 11/24/2018 1505 PDT | | | oz) | | + + + + | Height | 180.3 cm (5' 11") | 06/01/2019 2300 PDT | + + + + | Body Mass Index | 30.56 | 11/24/2018 1505 PDT | + + + + Plan of Treatment + + + + + | Health Maintenance | Due Date | Last Done | Comments | + + + + + | Colorectal Cancer | 04/14/201 | | | | Screening | 0 [...] + | Vaccine: Influenza | | 06/26/2017, 06/26/2017, | | | (#1) | 9 | 06/23/2016, Additional history [...] / Lot | + +-------+--------+ +--------+--------+--------+ | Stent Bili Advnx 10fr 5cm - | Stent | N/A: | BOSTON | | 11/02/ | [id number] | | [id number]: | | Bile | SCIENTIFIC | | 2020 | 320 | | Qty: 1 on 01/22/2018 by | | Duct | SIRISHA - BSCI | | | [id number] | | Dc Naik MD | | | | | | [id number] | | | | | | | | 419 | | | | | | | | /[id number] | | | | | | | | 503 | + +-------+--------+ +--------+--------+--------+ | Epic Vascular StentImplanted: | Stent | | [place]ON | | 01/05/ | [id number] | | Qty: 1 on 06/01/2019 by Felix, | | | SCIENTIFIC | | 2023 | [id number] | | Rich Alvarado MD | | | SIRISHA - BSCI | | | 020 / | | | | | | | | /[id number] | | | | | | | | 961 | + +-------+--------+ +--------+--------+--------+ | Mesh Hernia Proceed 6in X 8in | | | JJHCS | | 02/03/ | [id number] | | - [id number]: Qty: 1 | | | ETHICON | | 2014 | / | | on 03/27/2014 by Mc | | | SUTURE - | | | /[id number] | | MD Jamie | | | KESHAV | | | 5 | + +-------+--------+ +--------+--------+--------+ | Mesh Hernia Composix Kugel | | N/A: | DAVOL - DIV | | 05/03/ | [id number] | | Oval Large - | | Abdome | OF BARD - | | 2015 | 2 / | | [id number]: Qty: 1 on | | n | DAVID | | | /[id number] | | 07/03/2014 by Jamie Bentley, | | | | | | 417 | | MD | | | | | | | + +-------+--------+ +--------+--------+--------+ | Mesh Ventrio Oval Eptfe | | | NA UNKNOWN | | 05/07/ | [id number] | | Xlarge - [id number]: | | | | | 2016 | 8 | | Qty: 1 on 12/18/2014 by | | | | | | /[id number] | | Jamie Bentley MD | | | | | | 18 | | | | | | | | /[id number] | | | | | | | | 608 | + +-------+--------+ +--------+--------+--------+ | Mesh Prol [id number] - | | | JJHCS | | 07/07/ | PMH / | | SnaImplanted: Qty: 1 on | | | ETHICON | | 2020 | / | | 11/10/2016 by Jamie Bentley, | | | ENDO -YESSENIA | | | [id number] | | MD | | | 867 - | | [...] | NA UNKNOWN | | 05/06/ | [id number] | | 4"X6" - [id number] | | | | | 2014 | 0 / | | | | | | | | /RODRIGO | | | | | | | | 760 | + +------+------+ +--------+--------+--------+ | Mesh Hernia Composix Kugel | | | DAVOL - DIV | | | [id number] | | Oval Large - [id number] | | | OF - | | | 2 | | | | | DAVID | | | /[id number] | | | | | | | | 02 / | + +------+------+ +--------+--------+--------+ Procedures + +--------+ + + + | [...] in the | | | | | ([facility]) | results section. | + +--------+ + [...] section. | + +--------+ + + + from Last 3 Months Results IR Stent Iliac (06/01/2019 14:34 PDT) [...] SURGEON: | | | Rich Washington MD AGENCY OPERATOR: None ANESTHESIA: Moderate sedation and local | [...] | | identified and brought to the [facility]. The patient was placed supine | | [...] sized to a 6 | | | Algerian sheath. A Omni flush catheter was then [...] identified and brought | | |to the [facility]. The patient was placed supine on the [...] | | |up sized to a 6 Algerian sheath. A Omni flush catheter was then [...] | | | Absolute | performed at [facility];[address] | LABORATORY | | | | [address];[place], [place] | | | | | | [address] | | | | + + + + + + + + | Specimen | + + | Blood | + + + + + + + | Performing | Address | City/State/Zipcode | Phone Number | | Organization | | | | + + + + + | [facility] | [address] | [place] [address] | [phone] | + + + + + Basic [...] | | | | | performed at [facility];[address] | | | | | | [address];[place], [place] | | | | | | [address] | | | | + + + + + + + + | Specimen | + + | Blood | + + + + + + + | Performing | Address | City/State/Zipcode | Phone Number | | Organization | | | | + + + + + | [facility] | [address] | [place] [address] | [phone] | + + + + + from Last 3 Months Insurance + +--------+ +--------+ [...] | [employer] | MODA | [id number] | 07/31/ | [phone] | | Medica | | MEDICAID HMO | HEALTH | | 2013-P | 1 | | id | | | MDCD | | resent | | | | | | [place] | | | | | | + +--------+ +--------+ +---------+--------+ | [employer] | MODA | [id number] | 05/12/20 | [phone] | | Medica | | MEDICAID HMO [...] | | al/Fam | | 1961 | [phone] | [place] [address] | | | valentín | | | 0 (Home) | | + +--------+ +--------+ + + | Reza Cespedes | Person | Self | [birth year] | [address] | | | al/Fam | | 1961 | [phone] | [place] [address] | | | valentín | | | 0 (Home) | | + +--------+ +--------+ + + Advance Directives Patient has advance care planning documents, and code status on file. For more information, please contact:[facility] and [place] [address] + + + + + | Code Status | Date | Date | Comments | | | Activated | Inactivated | | + + + + + | Full Code | 01/22/2018 | 01/23/2018 | | | | 1:03 | 15:49 | | + + + + +
--- OUTSIDE RECORDS SUMMARY | ~2019-07-03 | XMS | Clinical Summary ---
Demographics + + + | Address | [address] | | | [place] [address] | + + + | Home Phone [...] | Author | [facility] (Historical as of | | | 04-23-19) | + + + | Organization | [facility] (Historical as of | | | 04-23-19) [...] [place] | | | | | [address] | | + + + + + Care Team Providers + +------+ + | Care Shaping Machine Tender Name | Role | Phone [...] 2012 for which he was flown to [facility] | | and had multiple injuries to [...] | | 06/26/2017, 06/23/2016, | | | (#1) | 9 | 06/18/2015, Additional history | | | [...] | 02/03/ | PCDG1 | | - [id number]: Qty: 1 | | | | | 2014 | / | | on 03/27/2014 by Mc, | | | | | | /[id number] | | MD Jamie | | | | | | 5 | + +------+--------+ +--------+--------+--------+ | Mesh Hernia Composix Kugel | | N/A: | DAVOL | | 05/03/ | [id number] | | Oval Large - | | Abdome | | | 2015 | 2 / | | [id number]: Qty: 1 on | | n | | | | /[id number] | | 07/03/2014 by Jamie Bentley, | | | | | | 417 | | | | | | | | | + +------+--------+ +--------+--------+--------+ | Mesh Ventrio Oval Eptfe | | | BARD-Medicl | | 05/07/ | [id number] | | Xlarge - [id number]: | | | ick | | 2016 | 8 | | Qty: 1 on 12/18/2014 by | | | | | | /[id number] | | Jamie Bentley MD | | | | | | 18 | | | | | | | | /[id number] | | | | | | | | 608 | + +------+--------+ +--------+--------+--------+ | Mesh Prol [id number] - | | | JJHCS | | 07/07/ | PMH / | | SnaImplanted: Qty: 1 on | | | ETHICON | | 2020 | / | | 11/10/2016 by Jamie Bentley, | | | ENDOSCOPY - | | | [id number] | | | | | ETHE | [...] | | BARD-Medicl | | 05/06/ | [id number] | | 4"X6" - [id number]: | | | ick | | 2014 | 0 / | | Qty: 1 on 03/27/2014 by | | | | | | /ANNAHO | | Jamie Bentley MD | | | | | | 760 | + +------+------+ +--------+--------+--------+ | Mesh Hernia Composix Kugel | | | DAV[place] | | | [id number] | | Oval Large - | | | | | | 2 | | [id number]: Qty: 1 on | | | | | | /[id number] | | 12/18/2014 by Jamie Bentley, | [...] +------+-------+ + | MEDICAID | EASTER | [id number] | | | [address] | | | N | | | | [place] | | | [place] | | | | [address] | | | [employer] | | | | | + +--------+ [...] | 1961 | [phone] | [place] [address] | | | [place] | | | [phone] | | + +--------+ +--------+ + +
--- OUTSIDE RECORDS SUMMARY | ~2019-07-03 | XMS | Encounter Summary ---
Demographics + + + | Address | [address] | | | [place] [address] | + + + | Home Phone | | + + + | Preferred Language | Unknown | + + + | Marital Status | | + + + | Jain Affiliation | 1013 | + + + | Race | Unknown | + + + | Ethnic Group | Unknown | + + + Author + + + | Author | [facility] | | | and Alexana | + + + | Organization | [facility] | | | and [...] [place] | | | | | [address] | | + + + + + Care Team Providers + +------+ + | Care Weaver Hand Loom Name | Role | Phone | + +------+ + | Allison Fairchild NP | PCP | Unavailable | + +------+ + Encounter Details +--------+ + + + + | Date | Type | Department | Care Team | Description | +--------+ + + + + | 04/26/ | Orders Only | [facility] | Rich Washington MD | Iliac artery | | 2019 | | VASCULAR SURGERY | [address] | dissection (HCC) | | | | [address] | [place], [place] | (Primary Dx) | | | | [place], [place] | [address] | | | | | [address] | [phone] | | | | | [phone] | | | +--------+ + + + [...]
--- OUTSIDE RECORDS SUMMARY | ~2019-07-03 | XMS | Encounter Summary ---
Demographics + + + | Address | [address] | | | [place] [address] | + + + | Home Phone | | + + + | Preferred Language | Unknown | + + + | Marital Status | | + + + | Gnosticism Affiliation | Unknown | + + + | Race | White | + + + | Ethnic Group | Not or | + + + Author + + + | Author | [facility] | + + + | Organization | [facility] | + + + | Address | Unknown | + + + | Phone | Unavailable | + + + Support + + +---------+ + | Name | Relationship | Address | Phone | + + +---------+ + | Maria Isabel Cespedes | ECON | Unknown | | + + +---------+ + Care Team Providers + +------+ + | Care College Or University Registrar Name | Role | Phone | + +------+ + | Allison Fairchild NP | PCP | | + +------+ + Encounter Details +--------+ + + + + | Date | Type | Department | Care Team | Description | +--------+ + + + + | 03/14/ | Telephone | Rheumatology at | Chiquis Norman, | | | 2019 | | Sahra Ybarra | [address] | | | | | [address] | [place] | | | | | Vonda Khanna Mailcode: | [place], [place] | | | | | [address] Physician's | [address] | | | | | [address] | [phone] | | | | | [place] | | | | | | [address] | | | | | | [phone] | | | +--------+ + + + [...]
--- OUTSIDE RECORDS SUMMARY | ~2019-07-03 | XMS | Encounter Summary ---
Demographics + + + | Address | [address] | | | [place] [address] | + + + | Home Phone | | + + + | Preferred Language | Unknown | + + + | Marital Status | | + + + | Adventism Affiliation | Unknown | + + + | Race | White | + + + | Ethnic Group | Not or | + + + Author + + + | Author | [facility] | + + + | Organization | [facility] | + + + | Address | Unknown | + + + | Phone | Unavailable | + + + Support + + +---------+ + | Name | Relationship | Address | Phone | + + +---------+ + | Maria Isabel Cespedes | ECON | Unknown | | + + +---------+ + Care Team Providers + +------+ + | Care Endodontist Name | Role | Phone | + +------+ + | Allison Fairchild FUR TINTER | PCP | | + +------+ + [...] | | | | | spondylosis | FUR TINTER Good | [address] | | | | | with | Lio | Krishan Ferrari | | | | | radiculopath | [facility] | Jey [place], | | | | | y, lumbar | [address] | [place] | | | | | region | [address] | [address] | | | | | Acute kidney | [facility], | Phone: | | | | | failure, | [place] [address] | [phone] | | | | | unspecified | Phone: | Fax: | | | | | Other | [phone] | [phone] | | | | | disorder of | Fax: | | | | | | circulatory | [phone] | | | | | | system [...] | | | | | | | [place] NEW | | | | | | | PATIENT | | | | | | | LEVEL II [place] | | | | | | | [...] 2019 | Visit | Phys[facility] [address] | [address] | (Primary Dx) | | | | [address] | Krishan Dorian Khanna | | | | | Dorian Khanna Mailcode: | [place], [place] | | | | | [address] Physician's | [address] | | | | | [address] [place], | [phone] | | | | | [place] [address] | | | | | | [phone] | | | +--------+---------+ + + + [...] findings, assessment and plan. Malou Bo M.D. [address] Mailcode: [address] [facility] [place] [address] cMoe DENIS, Debbie - 0 11/02/2018 3:30 PM PST RHEUMATOLOGY NEW VISIT PCP JUAN JOSÉ Juarez [place] [address] [place] [address] Chief Complaint: renal artery abnormalities, evaluate for [...] was instructed to schedule a visit wi [facility] rheumatology Dr Howard, but has been unable to get in until today. Here with his . Traveled here from [place], [place]. Long drive which is uncomfortable for [...] 1,000 mg by mouth four times daily. fi-fzq-yxxlg acid-lutein (CENTRUM SILVER) 400-250 mcg oral tablet,chewable [...] PCR. HBV is more commonly associated with GRAY which is negative. Await further lab results. [...] Em MD RHEUMATOLOGY AT [facility] [address] [facility] [facility] Mail[address]: [address] [place] [address] documented in this e ncounter [...] [facility] | [address] | [place] [address] | | | SERVICES, CORE | PARK [...] + + + + + | [facility] | [address] | [place] [address] | | | [place]OO[place] | PARK [...] PTH - INTFC | | | | [address] | | | | | | [phone]. | | | | | | [...] (http://www.cdc.gov/mmwr | | | | | | [email or web address] | | | | | | [email or web address].htm), [...] [facility] | [address] | [place], [place] | | | UNIV PTH - INTFC | | [address] | | + + + + + [...] [facility] | [address] | [place] [address] | | | SERVICES, CORE | PARK [...] + + + + + | [facility] | [address] | [place] [address] | | | SERVICES, [place] | DORIAN [...] | | | LABORATORY | | | [place] | | | SERVICES, | | | [...] | + + + + + | [facility] | [address] | [place] [address] | | | [place] | DORIAN [...] | + + + + + | [facility] | [address] | [place] [address] | | | [place] | [address] | | | + + + + + documented in this encounter Visit Diagnoses + + | Diagnosis | + + | 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
--- OUTSIDE RECORDS SUMMARY | ~2019-07-03 | XMS | Encounter Summary ---
Demographics + + + | Address | [address] | | | [place] [address] | + + + | Home Phone | | + + + | Preferred Language | Unknown | + + + | Marital Status | | + + + | Temple Affiliation | Unknown | + + + | Race | White | + + + | Ethnic Group | Not or | + + + Author + + + | Author | [facility] | + + + | Organization | [facility] | + + + | Address | Unknown | + + + | Phone | Unavailable | + + + Support + + +---------+ + | Name | Relationship | Address | Phone | + + +---------+ + | Maria Isabel Cespedes | ECON | Unknown | | + + +---------+ + Care Team Providers + +------+ + | Care Styrene Dehydration Reactor Operator Name | Role | Phone | + +------+ + | Allison Fairchild NP | PCP | | + +------+ + Encounter Details +--------+--------+ + + + | Date | Type | Department | Care Team | Description | +--------+--------+ + + + | 01/26/ | Intake | Transfer Center | | N/A | | 2018 | | [address] | | | | | | [place]onda [place], | | | | | | [place] [address] | | | +--------+--------+ + + + [...]
--- OUTSIDE RECORDS SUMMARY | ~2019-07-03 | XMS | Encounter Summary ---
Demographics + + + | Address | [address] | | | [place] [address] | + + + | Home Phone | | + + + | Preferred Language | Unknown | + + + | Marital Status | | + + + | Sabianism Affiliation | Unknown | + + + | Race | White | + + + | Ethnic Group | Not or | + + + Author + + + | Author | [facility] | + + + | Organization | [facility] | + + + | Address | Unknown | + + + | Phone | Unavailable | + + + Support + + +---------+ + | Name | Relationship | Address | Phone | + + +---------+ + | Maria Isabel Cespedes | ECON | Unknown | | + + +---------+ + Care Team Providers + +------+ + | Care Graphic Manager Name | Role | Phone | + +------+ + | Allison Fairchild RECRUITING INTERN | PCP | | + +------+ + [...] | | | | | spondylosis | RECRUITING INTERN Good | [address] [facility] | | | | | with | Lio | [address] | | | | | radiculopath | [facility] | Jey [place], | | | | | y, lumbar | [address] | [place] | | | | | region | [address] | [address] | | | | | Acute kidney | [facility], | Phone: | | | | | failure, | [place] [address] | [phone] | | | | | unspecified | Phone: | Fax: | | | | | Other | [phone] | [phone] | | | | | disorder of | Fax: | | | | | | circulatory | [phone] | | | | | | system [...] | | | | | | | [place] NEW | | | | | | | PATIENT | | | | | | | [place] | | | | | | | [...] | Visit | Physicians Tate Rehman MD [address] [facility] | stenosis (HCC) | | | | [address] | [address] | (Primary Dx); ESR | | | | [address] Mailcode: | [place], [place] | raised; 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 | | | | Tate, 4th Floor | [phone] | ([facility]) | | | | [place], [place] | | | | | | [address] | | | | | | [phone] | | | +--------+---------+ + + + [...] inflammation) on 2018 study per review with [facility] radiology - iliac artery dissection present on 01/2018 study per review with [facility] radiology- stable - proximal SMA may also be slightly abnormal on 11/2018 per review with [facility] radiology, leena mmend follow-up ultrasound, done 12/2018 limited but without obvious SMA changes - 02/2019: repeat CTA abd/pelvis but poor quality outside study with significant motion shannan fact, could not comment on renal aa or SMA. Chronic iliac dissection stable. Proximal aorta somewhat thickened. Overall suspicion for vasculitis low given variable vessel involvement, prolonged time period, dissections. Repeating CTA abd/pelvis at [facility] .S: Here with [place] Having pain [...] systems has been done with pertinent responses levar ruvalcaba in the HPI. Please review the scanned document in [facility] for full details. - Cold all [...] 1,000 mg by mouth four times daily. dm-dep-nicgl acid-lutein (CENTRUM SILVER) 400-250 mcg oral tablet,chewable [...] BSA 2.24 m Rapid 3 MHAQ: 6.0 (03/11/19 1500) PAIN LEVEL: 8.5 (03/11/19 1500) GLOBAL ASSESSMENT: 8 (03/11/19 1500) RAPID 3: 7.5 (03/11/19 1500) Gen: chronically ill appearing, ambulatory with cane [...] defect in musculature. LABS - Recent Labs 11/02/18 1655 03/11/19 1019 WBC 12.41* 9.38 RBC 4.64 4.70 [...] elevated, these have been elevated intermittently since 2012 so unclear these represent an acute change. [...] review findings with radiology early next w [place] Plan- - follow-up RPR - encouraged patient [...] the attestation. Chiquis Norman MD RHEUMATOLOGY AT [address] Mailcode: [address] [place] [address] Associated attestation - Dejah Aguilera MD - 03/14/2019 1:52 PM PDTI have seen and ev aluated this patient with Dr. Norman. I agree with the documented findings, assessment, an d plan as detailed above. Dejah Aguilera MD RHEUMATOLOGY AT [address] Mailcode: [address] [place] [address] documented in this encounter Plan [...]
--- OUTSIDE RECORDS SUMMARY | ~2019-07-03 | XMS | Encounter Summary ---
Demographics + + + | Address | [address] | | | [place] [address] | + + + | Home Phone [...] + + + | Author | [facility] | + + + | Organization | [facility] | + + + | Address | Unknown | + + + | Phone | Unavailable | + + + Support + + +---------+ + | Name | Relationship | Address | Phone | + + +---------+ + | Maria Isabel Cespedes | ECON | Unknown | | + + +---------+ + Care Team Providers + +------+ + | Care Rotating Equipment Engineer Name | Role | Phone | + +------+ + | Allison Fairchild NP | PCP | | + +------+ + Encounter Details +--------+ + + + + | Date | Type | Department | Care Team | Description | +--------+ + + + + | 02/22/ | Procedure | Diagnostic Imaging | | | | 2019 | Pass | Services at [facility] | | | | | | [address] | | | | | | [address] Mailcode: | | | | | | [address] [facility] | | | | | | [place], [place] | | | | | | [address] | | | | | | [phone] | | | +--------+ + + + [...]
--- OUTSIDE RECORDS SUMMARY | ~2019-07-03 | XMS | Encounter Summary ---
Demographics + + + | Address | [address] | | | [place] [address] | + + + | Home Phone | | + + + | Preferred Language | Unknown | + + + | Marital Status | | + + + | Congregation Affiliation | Unknown | + + + [...] Team Providers + +------+ + | Care Air Support Control Officer Name | Role | Phone | + +------+ + | Allison Fairchild NP | PCP | | + +------+ + Encounter Details +--------+------+ + + + | Date | Type | Department | Care Team | Description | +--------+------+ + + + | 11/02/ | Lab | Laboratory, | | Renal artery anomaly | | 2018 | | Specimen Collection | | | | | | at [address] Floor | | | | | | [address] | | | | | | [place], | | | | | | [place] [address] | | | | | | [phone] | | | +--------+------+ + + + [...] by | | | | | | [address] | | | | | | [address], [facility],[place] | | | | | | [address] | | | | | | [phone]. | | | | | | Melecio [...] [facility] | [address] | [place], [place] | | | UNIV PTH - INTFC | | [address] | | + + + + + [...] [facility] | [address] | [place] [address] | | | SERVICES, CORE | PARK [...] | + + + + + | [facility] | [address] | [place] [address] | | | SERVICES, CORE | [address] [...] | + + + + + | [facility] | [address] | [place] [address] | | | SERVICES, CORE | PARK [...] [facility] | | | NIL | by [address] | | REG UNIV | | | | [address], [facility],[place] | | PTH - INTFC | | | | [address] | | | | | | [phone]. | | | | | | Melecio [...] (http://www.cdc.gov/mmwr | | | | | | /preview/mmwrhtml/tv6537 | | | | | | a1.htm), [...] [facility] | [address] | [place], [place] | | | UNIV PTH - INTFC | | [address] | | + + + + + [...] | + + + + + | [facility] | [address] | [place] [address] | | | SERVICES, CORE | PARK [...] [facility] | [address] | [place] [address] | | | SERVICES, CORE | PARK [...] | | | LABORATORY | | | TRINIDADIAN | | | SERVICES, | | | [...] the MDRD equation recommended by the | [facility] | | National Kidney Disease Education Program. 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
--- OUTSIDE RECORDS SUMMARY | ~2019-07-03 | XMS | Encounter Summary ---
Demographics + + + | Address | [address] | | | [place] [address] | + + + | Home Phone | | + + + | Preferred Language | Unknown | + + + | Marital Status | | + + + | Christian Affiliation | Unknown | + + + | Race | White | + + + | Ethnic Group | Not or | + + + Author + + + | Author | [facility] | + + + | Organization | [facility] | + + + | Address | Unknown | + + + | Phone | Unavailable | + + + Support + + +---------+ + | Name | Relationship | Address | Phone | + + +---------+ + | Maria Isabel Cespedes | ECON | Unknown | | + + +---------+ + Care Team Providers + +------+ + | Care Mechanical Systems Engineer Name | Role | Phone | + +------+ + | Allison Fairchild NP | PCP | | + +------+ + Encounter Details +--------+ + + + + | Date | Type | Department | Care Team | Description | +--------+ + + + + | 02/22/ | Procedure | Diagnostic Imaging | | | | 2019 | Pass | Services at [facility] | | | | | | [address] | | | | | | [address] Mailcode: | | | | | | [address] [facility] | | | | | | [place], [place] | | | | | | [address] | | | | | | [phone] | | | +--------+ + + + [...]
--- OUTSIDE RECORDS SUMMARY | ~2019-07-03 | XMS | Encounter Summary ---
Demographics + + + | Address | [address] | | | [place] [address] | + + + | Home Phone | | + + + | Preferred Language | Unknown | + + + | Marital Status | | + + + | Bahai Affiliation | Unknown | + + + [...] Team Providers + +------+ + | Care Framing Inspector Name | Role | Phone | [...] | | | | | [address] [place] [place], | | | | | | [place] [address] | | | +--------+--------+ + + + [...]
--- OUTSIDE RECORDS SUMMARY | ~2019-07-03 | XMS | Encounter Summary ---
Demographics + + + | Address | [address] | | | [place] [address] | + + + | Home Phone | | + + + | Preferred Language | Unknown | + + + | Marital Status | | + + + | Orthodoxy Affiliation | 1013 | + + + | Race | Unknown | + + + | Ethnic Group | Unknown | + + + Author + + + | Author | [facility] | | | and [place] | + + + | Organization | [facility] | | | and [place] [...] [place] | | | | | [address] | | + + + + + Care Team Providers + +------+ + | Care Frame Stripper And Crusher Name | Role | Phone | + +------+ + | Allison Fairchild NP | PCP | Unavailable | + +------+ + Encounter Details +--------+ + + + + | Date | Type | Department | Care Team | Description | +--------+ + + + + | 05/31/ | Telephone | [facility] | Rich Washington MD | | | 2019 | | CENTER CV INTRA OP | [address] | | | | | [address] | [place] | | | | | [place] | [address] | | | | | [address] | [phone] | | | | | [phone] | | | +--------+ + + + [...]
--- OUTSIDE RECORDS SUMMARY | ~2019-07-03 | XMS | Encounter Summary ---
Demographics + + + | Address | [address] | | | [place] [address] | + + + | Home Phone | | + + + | Preferred Language | Unknown | + + + | Marital Status | | + + + | Synagogue Affiliation | 1013 | + + + | Race | Unknown | + + + | Ethnic Group | Unknown | + + + Author + + + | Author | [facility] | | | and [place] | + + + | Organization | [facility] | | | and [place] [...] [place] | | | | | [address] | | + + + + + Care Team Providers + +------+ + | Care Account Advisor Name | Role | Phone | + +------+ + | Allison Fairchild EQUIPMENT HIRE MANAGER | PCP | Unavailable | + +------+ [...] PAD | MD [address] | [address] | | | | | (peripheral | [address] | | | | | artery | [address] | [place], [place] | | | | | disease) | [place], [place] | [address] | | | | | (HCC) | [address] | Phone: | | | | | Procedures | Phone: | [phone] | | | | | IR Stent | [phone] | Fax: | | | | | Iliac | Fax: | [phone] | | | | | | [phone] | | +--------+--------+ + + + + Reason for Visit + + + | Reason | Comments | + + + | Follow-up | 6 mon f/u on CTA | + + + Encounter Details +--------+---------+ + + + | Date | Type | Department | Care Team | Description | +--------+---------+ + + + | 05/26/ | Office | 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) | | | | [phone] | | | +--------+---------+ + + + [...] Last Filed Vital Signs + +---------+ + | Vital Sign | Reading | Time Taken | + +---------+ + | Blood Pressure | 145/89 | 05/26/2019 1305 PDT | + +---------+ + | Pulse | 76 | 05/26/2019 1305 PDT | + +---------+ + | Temperature | - | - | + +---------+ + | Respiratory Rate | - | - | + +---------+ + | Oxygen Saturation | 96% | 05/26/2019 1305 PDT | + +---------+ + | Inhaled Oxygen | - | - | | Concentration | | | + +---------+ + | Weight | - | - | + +---------+ + | Height | - | - | + +---------+ + | Body Mass Index | - | - | + +---------+ + documented in this encounter Progress Notes Rich Washington MD - 05/26/2019 1330 PDTFormatting of this note might be different from the leidy tatum. Subjective Subjective Mr. Nelson a pleasant 58 y.o.malewith PMH significant for hepatitis [...] a history of abdominal surgeries performed at [facility]. Patient reports he i s on [employer] currently. CT ANGIOGRAM CHEST ABDOMEN AND PELVIS [...] Procedure: ERCP; Surgeon: Dc Naik MD; Location: [facility] ERCP N/A 02/12/2018 Procedure: ERCP; Surgeon: Dc Naik MD; Location: [facility] FRACTURE SURGERY 2011 skull/facial HARDWARE REMOVAL Right Hardware placement and removal thumb HERNIA REPAIR pt has 2 hernia repairs and 3rd revision on 12-18-14 hip screw removed Right 2014 Nasal reconstruction 1978 right hip/pelvis surgery 2012 SLAP 2011 UPPER GASTROINTESTINAL ENDOSCOPY UPPER GASTROINTESTINAL ENDOSCOPY N/A 10/23/2015 Procedure: EGD; Surgeon: Adrian Aponte MD; Location: [facility] UPPER GASTROINTESTINAL ENDOSCOPY N/A 11/18/2017 Procedure: EGD; Surgeon: Adrian Aponte MD; Location: [facility] XR LUMBAR SPINE [...] CV: No peripheral edema, rate regular SKIN: [place], warm, dry without rash/lesion MS: ROM not [...] time controlling his blood pressures. Since the pa anna's blood pressure is poorly controlled, we will [...] drink fluids after 11:59 PM on 05/31/19. Jake montana asked the patient to hold his Eliquis one day before the procedure. All questions and co ncerns addressed. Patient will follow up after surgery. Patient understands and is agreeable . Attending Note: Documentation assistance provided by Marie Linares (Scribe). Information leena rded by the scribe has been reviewed and validated by me. I agree with its contents. Signed by: Herberth Lloyd 05/26/19, 13:23 Rich Washington MD documented in th is encounter Plan of Treatment Not on filedocumented [...] SURGEON: | | | Rich Washington MD SWATCH PASTER: None ANESTHESIA: Moderate sedation and local | [...] | | identified and brought to the Dance Studio Manager. The patient was placed supine | | [...] sized to a 6 | | | Mongolian sheath. A Omni flush catheter was then [...] identified and brought | | |to the Dance Studio Manager. The patient was placed supine on the [...] | | |up sized to a 6 Mongolian sheath. A Omni flush catheter was then [...]
--- OUTSIDE RECORDS SUMMARY | ~2019-07-03 | XMS | Encounter Summary ---
Demographics + + + | Address | [address] | | | [place] [address] | + + + | Home Phone [...] Team Providers + +------+ + | Care Harmonica Maker Name | Role | Phone | + +------+ + | Allison Fairchild PERSONAL LINES SALES EXECUTIVE | PCP | | + +------+ + [...] | [address] | [place] | | | | | ([facility]) | [address] | Mailcode: | | | | | Procedures | Rd | [address] [facility] | | | | | CTA ABDOMEN | [facility] | | | | | AND PELVIS W | [address] | [facility] [place] | | | | | IV CONTRAST | Phone: | [phone] | | | | | [place] | [phone] | Phone: | | | | | ANGIO, ABD | Fax: | [phone] | | | | | AND PELVS | [phone] | Fax: | | | | | INCL IMAG | | [phone] | | | | | PROC | [...] | [address] | [place] | | | | | ([facility]) | [address] | Mailcode: | | | | | Procedures | Rd | [address] [facility] | | | | | CTA ABDOMEN | [place], [place] | [facility] | | | | | AND PELVIS W | [address] | [place], [place] | | | | | IV CONTRAST | Phone: | [phone] | | | | | [place] | [phone] | Phone: | | | | | ANGIO, ABD | Fax: | [phone] | | | | | AND PELVS | [phone] | Fax: | | | | | INCL IMAG | | [phone] | | | | | PROC | | | +--------+--------+ + + + + Encounter Details +--------+ + + + + | Date | Type | Department | Care Team | Description | +--------+ + + + + | 03/11/ | Hospital | Diagnostic Imaging | Debbie Em, | | | 2019 | Encounter | Services at [facility] | [address] | | | | | [address] | [address] | | | | | [address] Mailcode: | [place], [place] | | | | | [address] [facility] | [address] | | | | | [place], [place] | [phone] | | | | | [address] | | | | | | [phone] | | | +--------+ + + + [...] + + + +---------+ + + | on-ujc-dqxki | Chew and swallow. | | 0 [...] | | | 19 | | | release(/EC) | | | | | | + [...] [place] | [address] | [place], [place] | | | [facility] | [address] | [address] | | | TESTS | | | [...]
--- OUTSIDE RECORDS SUMMARY | ~2019-07-03 | XMS | Encounter Summary ---
Demographics + + + | Address | [address] | | | [place] [address] | + + + | Home Phone | | + + + | Preferred Language | Unknown | + + + | Marital Status | | + + + | Quaker Affiliation | Unknown | + + + | Race | White | + + + | Ethnic Group | Not or | + + + Author + + + | Author | [facility] | + + + | Organization | [facility] | + + + | Address | Unknown | + + + | Phone | Unavailable | + + + Support + + +---------+ + | Name | Relationship | Address | Phone | + + +---------+ + | Maria Isabel Cespedes | ECON | Unknown | | + + +---------+ + Care Team Providers + +------+ + | Care Dial Marker Name | Role | Phone | + +------+ + | Allison Fairchild NP | PCP | | + +------+ + Encounter Details +--------+ + + + + | Date | Type | Department | Care Team | Description | +--------+ + + + + | 03/14/ | Telephone | Rheumatology at | Chiquis Norman, | | | 2019 | | Sahra Ybarra | [address] | | | | | [address] | [address] [address] | | | | | [address] Mailcode: | [place], [place] | | | | | [address] Physician's | [address] | | | | | [address], [facility] Floor | [phone] | | | | | [place] | | | | | | [address] | | | | | | [phone] | | | +--------+ + + + [...]
--- OUTSIDE RECORDS SUMMARY | ~2019-07-03 | XMS | Encounter Summary ---
Demographics + + + | Address | [address] | | | [place] [address] | + + + | Home Phone | | + + + | Preferred Language | Unknown | + + + | Marital Status | | + + + | Rastafarian Affiliation | Unknown | + + + | Race | White | + + + | Ethnic Group | Not or | + + + Author + + + | Author | [facility] | + + + | Organization | [facility] | + + + | Address | Unknown | + + + | Phone | Unavailable | + + + Support + + +---------+ + | Name | Relationship | Address | Phone | + + +---------+ + | Maria Isabel Cespedes | ECON | Unknown | | + + +---------+ + Care Team Providers + +------+ + | Care Warehouse Laborer Name | Role | Phone | + +------+ + | No Pcp Per Patient | PCP | Unavailable | + +------+ + Reason for Visit + + + | Reason | Comments | + + + | New Patient Visit | | + + + Consultation (Routine) +--------+--------+ + + + + | Status | Reason | Specialty | Diagnoses / | Referred By | Referred To | | | | | Procedures | Contact | Contact | +--------+--------+ + + + + | Closed | | Otolaryngolog | | No | [facility] | | | | y | | Referring | [facility] [address] | | | | | | Provider Per | [address] | | | | | | Patient NO | Mailcode: | | | | | | REFERRING | [facility] | | | | | | PROVIDER PER | for Health | | | | | | PT | and Healing, | | | | | | | Building [address], | | | | | | | 5th Floor | | | | | | | [place], [place] | | | | | | | [address] | | | | | | | Phone: | | | | | | | [phone] | | | | | | | Fax: | | | | | | | [phone] | +--------+--------+ + + + + Encounter Details +--------+---------+ + + + | Date | Type | Department | Care Team | Description | +--------+---------+ + + + | 04/21/ | Office | [facility] | Jaspal Stevenson, | Allergic rhinitis, | | 2012 | Visit | Center at [facility] [address] | [address] | cause unspecified | | | | [address] | [employer], [place] | (Primary Dx); | | | | Mailcode: [place] | [address] | Deviated nasal | | | | [facility] | [phone] | septum; Hypertrophy | | | | and Healing, | | of nasal turbinates | | | | Building 1, 5th | | | | | | Floor [place], [place] | | | | | | [address] | | | | | | [phone] | | | +--------+---------+ + + + [...] documented as of this encounter Progress Notes Jaspal Stevenson MD - 04/22/2013 10:13 AM PDTI have reviewed and verified the above scribe d note of my visit with this patient as recorded by HALIMA Ruiz. Jaspal Stevenson M.D., M.P.H., F.A.C.S. Director, [facility] Professor and Chief, Rhinology and Sinus Surgery Department of Otolaryngology/Head and Neck Surgery Ninoska medina PA -C - 04/21/2013 11:52 AM PDT I, NINOSKA OTIS, PA-C, am functioning as a scribe for Dr. Stevenson. [facility] HPI: Reza Cespedes is a 52 y.o. male who presents to the [facility] in [facility] emergency department for Septal deviation and Turbinate hypertrophy. Current symptoms include nasal congesti on, nasal discharge, headache, facial pain, facial pressure and loss of smell. Symptoms beg an 9 months ago after falling off a truck onto the ground landing on his nose. He suffered a n open nasal fracture at the time, but has not had any surgical intervention. Symptom sever ity is moderate to severe. Improvement occurred with Nothing. Additional evaluation has in cluded CT scan sinuses done on 07/26/2013. He has been treated with a medrol dose pack, topical steroid sprays and saline irrigations with no improvement to his symptoms. Has ahd allergy in the past but has not had any improve ment in treating these with medical therapies since the injury. Current Outpatient Prescriptions Medication Sig LORazepam 1 mg Oral tablet Take 1 mg by mouth every four hours as needed. SERTRALINE HCL (ZOLOFT ORAL) Take by mouth. No current facility-administered medications for this visit. The patient's New Patient History Form was reviewed with the patient. Changes and addition s, where necessary, were made and the form was scanned to the medical record. Comprehensive review of systems was negative other than as documented on this note and on the New Patient History Form. No past medical history on file. No past surgical history on file. History Substance Use Topics Smoking status: Not on file Smokeless tobacco: Not on file Alcohol Use: Not on file Allergies: Allergies Allergen Reactions Penicillins Unknown PHYSICAL EXAM: General Appearance: Pleasant, well-developed, well-nourished patient, in no apparent distre ss. Mental status normal. Breathing quietly, comfortably, no stridor or wheezing. Head/Face: No skin lesions, face symmetric, sensation normal Eyes: EOMI Ears: External ears normal to inspection and palpation, canals clear, TM's intact, no middl e ear effusion. Nose: Anterior rhinoscopy reveals septal deviation and nasal valve colapse. External scarr ing with loss of dorsal support. Nasal endoscopy was indicated to better evaluate the nose a nd paranasal sinuses given the patient's history and exam findings and is detailed below. Oral Cavity/Pharynx: No masses or lesions of lips, gums, tongue, floor of mouth, buccal muc kiki, hard palate or soft palate. Dentition is good. No erythema, exudate, or tonsillar kip s. Posterior pharyngeal wall normal. Neck/Lymphatic: no masses or adenopathy and no salivary or thyroid masses Neurologic: CN 2-12 intact PROCEDURE: Diagnostic Nasal Endoscopy Anesthesia: Lidocaine 4% topical anesthetic was placed. Description of Procedure: A rigid endoscope was utilized to evaluate the sinonasal cavities , mucosa, sinus ostia and turbinates. Overall, signs of mucosal inflammation are noted. Al so noted are turbinate hypertrophy and septal deviation. RADIOGRAPHIC EVALUATION: A CT from 07/26/2012 was reviewed which reveals overall well venti lated sinuses. Severe septal septal deviation and displaced nasal fracture. Turbinate hypert rophy is noted bilaterally. 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 We've discussed issues and options today. The risks, benefits and alternatives were discus sed and questions answered. It is unlikelt that any other form of medical teerapy will be of benefit here and septorhinoplasty is likely the best option. documented in this e ncounter Plan of Treatment Not on filedocumented as of this encounter Procedures + +--------+ + + + | Procedure Name | Priori | Date/Time | Associated Diagnosis | Comments | | | ty | | | | + +--------+ + + + | CO NASAL | Routin | 04/22/2013 | Allergic rhinitis, | | | ENDOSCOPY,DX | e | 10:17 AM | cause unspecified | | | | | PDT | | | + +--------+ + + + | RADIOLOGY | | 08/05/2012 | | Results for this | | | | 12:00 AM | | procedure are in the | | | | PST | | results section. | + +--------+ + + + documented in this encounter Results RADIOLOGY (08/05/2012 12:00 AM PST) + + + | Narrative | Performed At | + + + | | | | | | + + + + + | Procedure Note | + + | Birdie Torres - 05/17/2013 12:55 PM PDT | + + documented in this encounter Visit Diagnoses + + | Diagnosis | + + | Allergic rhinitis, cause unspecified - Primary | + + | Deviated nasal septum | + + | Hypertrophy of nasal turbinates | + + documented in this encounter"
--- OUTSIDE RECORDS SUMMARY | ~2019-07-03 | XMS | Encounter Summary ---
Demographics + + + | Address | [address] | | | [place] [address] | + + + | Home Phone | | + + + | Preferred Language | Unknown | + + + | Marital Status | | + + + | Christianity Affiliation | Unknown | + + + | Race | White | + + + | Ethnic Group | Not or | + + + Author + + + | Author | [facility] | + + + | Organization | [facility] | + + + | Address | Unknown | + + + | Phone | Unavailable | + + + Support + + +---------+ + | Name | Relationship | Address | Phone | + + +---------+ + | Maria Isabel Cespedes | ECON | Unknown | | + + +---------+ + Care Team Providers + +------+ + | Care Retail Parts Professional Name | Role | Phone | + +------+ + | Allison Fairchild WOOD PROCESSING WORKER | PCP | | + +------+ + [...] Vonda Khanna | | | | | ([facility]) | [address] | Mailcode: | | | | | Procedures | Rd | [address] | | | | | CTA ABDOMEN | [facility] | | | | | [address] | [address] | [facility] [place] | | | | | IV CONTRAST | Phone: | [phone] | | | | | [place] | [phone] | Phone: | | | | | ANGIO, ABD | Fax: | [phone] | | | | | AND PELVS | [phone] | Fax: | | | | | INCL IMAG | | [phone] | | | | | PROC | [...] Vonda Khanna | | | | | ([facility]) | [address] | Mailcode: | | | | | Procedures | Rd | [address] | | | | | CTA ABDOMEN | [place], [place] | [facility] | | | | | AND P[address] | [address] | [place], [place] | | | | | IV CONTRAST | Phone: | [phone] | | | | | [place] | [phone] | Phone: | | | | | ANGIO, ABD | Fax: | [phone] | | | | | AND PELVS | [phone] | Fax: | | | | | INCL IMAG | | [phone] | | | | | PROC | | | +--------+--------+ + + + + Encounter Details +--------+ + + + + | Date | Type | Department | Care Team | Description | +--------+ + + + + | 03/11/ | Hospital | Diagnostic Imaging | Debbie Em, | | | 2019 | Encounter | Services at [facility] | [address] | | | | | [address] | [address] | | | | | Vonda Khanna Mailcode: | [place], [place] | | | | | [address] [facility] | [address] | | | | | [place], [place] | [phone] | | | | | [address] | | | | | | [phone] | | | +--------+ + + + [...] + + + +---------+ + + | [id number] | Chew and swallow. | | 0 [...] [facility] | [address] | [place], [place] | | | [facility] | [address] | [address] | | | TESTS | | | [...]
--- OUTSIDE RECORDS SUMMARY | ~2019-07-03 | XMS | Encounter Summary ---
Demographics + + + | Address | [address] | | | [place] [address] | + + + | Home Phone [...] Author | [facility] | | | and [place] | + + + | Organization | [facility] | [...] [place] | | | | | [address] | | + + + + + Care Team Providers + +------+ + | Care Custodial Aide Name | Role | Phone | + +------+ + | Allison Fairchild NP | PCP | Unavailable | + +------+ + Encounter Details +--------+ + + + + | Date | Type | Department | Care Team | Description | +--------+ + + + + | 04/26/ | Orders Only | [facility] | Tyron Hsu DNP | Renal artery | | 2019 | | VASCULAR SURGERY | [address] | stenosis (HCC) | | | | [address] | [place] | (Primary Dx) | | | | [place], [place] | [address] | | | | | [address] | | | | | | [phone] | | | +--------+ + + + [...] of this encounter Plan of Treatment + +--------+ + + | Name | Priori | Associated Diagnoses | Order Schedule | | | ty | | | + +--------+ + + | Misc Lab Referral | Routin | Renal artery | 1 Occurrences | | | e | stenosis (HCC) | starting 04/26/2019 | | | | | until 10/28/2019 | + +--------+ + + documented as of this encounter Visit Diagnoses + + | Diagnosis | + + | Renal artery stenosis (HCC) - Primary Atherosclerosis of renal artery | + + documented in this encounter"
--- OUTSIDE RECORDS SUMMARY | ~2019-07-03 | XMS | Encounter Summary ---
Demographics + + + | Address | [address] | | | [place] [address] | + + + | Home Phone | | + + + | Preferred Language | Unknown | + + + | Marital Status | | + + + | Church Affiliation | Unknown | + + + | Race | White | + + + | Ethnic Group | Not or | + + + Author + + + | Author | [facility] | + + + | Organization | [facility] | + + + | Address | Unknown | + + + | Phone | Unavailable | + + + Support + + +---------+ + | Name | Relationship | Address | Phone | + + +---------+ + | Maria Isabel Cespedes | ECON | Unknown | | + + +---------+ + Care Team Providers + +------+ + | Care Roll Contour Grinder Name | Role | Phone | + +------+ + | Allison Fairchild NP | PCP | | + +------+ + Encounter Details +--------+ + + + + | Date | Type | Department | Care Team | Description | +--------+ + + + + | 04/26/ | Documentati | [facility] | Jaspal Stevenson, | | | 2013 | on | Center at [facility] [address] | MD [address] | | | | | [address] | [place], [place] | | | | | Mailcode: [facility] | [address] | | | | | [facility] | [phone] | | | | | and [address], | | | | | | | | | | | | Floor [place], [place] | | | | | | [address] | | | | | | [phone] | | | +--------+ + + + [...]
--- OUTSIDE RECORDS SUMMARY | ~2019-07-03 | XMS | Encounter Summary ---
Demographics + + + | Address | [address] | | | [place] [address] | + + + | Home Phone | | + + + | Preferred Language | Unknown | + + + | Marital Status | | + + + | Rastafarian Affiliation | Unknown | + + + | Race | White | + + + | Ethnic Group | Not or | + + + Author + + + | Author | [facility] | + + + | Organization | [facility] | + + + | Address | Unknown | + + + | Phone | Unavailable | + + + Support + + +---------+ + | Name | Relationship | Address | Phone | + + +---------+ + | Maria Isabel Cespedes | ECON | Unknown | | + + +---------+ + Care Team Providers + +------+ + | Care Press Bucker Name | Role | Phone | + [...] | | | | | [address] [place] [place], | | | | | | [place] [address] | | | +--------+--------+ + + + [...]
--- OUTSIDE RECORDS SUMMARY | ~2019-07-03 | XMS | Encounter Summary ---
Demographics + + + | Address | [address] | | | [place] [address] | + + + | Home Phone | | + + + | Preferred Language | Unknown | + + + | Marital Status | | + + + | Zoroastrianism Affiliation | Unknown | + + + | Race | White | + + + | Ethnic Group | Not or | + + + Author + + + | Author | [facility] | + + + | Organization | [facility] | + + + | Address | Unknown | + + + | Phone | Unavailable | + + + Support + + +---------+ + | Name | Relationship | Address | Phone | + + +---------+ + | Maria Isabel Cespedes | ECON | Unknown | | + + +---------+ + Care Team Providers + +------+ + | Care Oem Sales Manager Name | Role | Phone | [...] | | | Vonda Khanna Mailcode: | [place], [place] | | | | | [address] | [address] | | | | | [place], | [phone] | | | | | [place] [address] | | | | | | [phone] | | | +--------+ + + + [...]
--- OUTSIDE RECORDS SUMMARY | ~2019-07-03 | XMS | Encounter Summary ---
Demographics + + + | Address | [address] | | | [place] [address] | + + + | Home Phone [...] + | Author | [facility] | | | and [place] | + + + | Organization | [facility] | [...] [place] | | | | | [address] | | + + + + + Care Team Providers + +------+ + | Care Strap Machine Operator Automatic Name | Role | Phone | + +------+ + | Allison Fairchild MANAGER ERP | PCP | Unavailable | + +------+ [...] | | artery | [address] | [place], [place] | | | | | disease) | [place], [place] | [address] | | | | | ([facility]) | [address] | Phone: | | | | | Procedures | Phone: | [phone] | | | | | IR Stent | [phone] | Fax: | | | | | Iliac | Fax: | [phone] | | | | | | [phone] | | +--------+--------+ + + + + [...] | | artery | RA[address] | [place], [place] | | | | | disease) | [place] | [address] | | | | | ([facility]) | [address] | Phone: | | | | | Procedures | Phone: | [phone] | | | | | IR Stent | [phone] | Fax: | | | | | Iliac | Fax: | [phone] | | | | | | [phone] | | +--------+--------+ + + + + [...] | | | | | | | ([facility]) | | | | | | | Procedures | | | | | | | IR STENT | | | | | | | ILIAC | | | +--------+--------+ + + + + Encounter Details +--------+ + + + + | Date | Type | Department | Care Team | Description | +--------+ + + + + | 06/01/ | Hospital | [facility] | Rich Washington MD | PAD (peripheral | | 2019 - | Encounter | [facility] | [address] | artery disease) | | | | CARE FLOOR [address] | [address] [place], [place] | ([facility]) | | 06/02/ | | [address] | [address] | | | 2018 | | [place], [place] | [phone] | | | | | [address] | | | | | | [phone] | | | +--------+ + + + [...] (sutures), avoid swimming or taking a bath [id number] after the p rocedure or until the [...] or shortness of breath Date Last Reviewed: 02/06/[id number] [employer]. [address] [place] [address]. All righ ts reserved. This information is [...] tomorrow AM. Significant other left VM with [facility] on [facility] regarding ride in the morning. Dr. Washington [...] transport is not available. Received call from [facility] medical transport company that brought patient. She said they have the option of cynthia a local ambulance company. Received fax of form 405P to be sent t o ambulance [facility]. After roberson is sent back we can forward to [facility] and they will approve or deny [...] in the | | | | | ([facility]) | results section. | + +--------+ [...] SURGEON: | | | Rich Washington MD THERAPY DIRECTOR: None ANESTHESIA: Moderate sedation and local | [...] | | identified and brought to the Music Engraver. The patient was placed supine | | [...] sized to a 6 | | | Syrian sheath. A Omni flush catheter was then [...] identified and brought | | |to the Music Engraver. The patient was placed supine on the [...] | | |up sized to a 6 Syrian sheath. A Omni flush catheter was then [...] | | | Absolute | performed at [facility];[address] | [address] | LABORATORY | | | | [place] | | | | | | [address] | | | | + + + + + + + + | Specimen | + + | Blood | + + + + + + + | Performing | Address | City/State/Zipcode | Phone Number | | Organization | | | | + + + + + | [facility] | [address] | [place] [address] | [phone] | + + + + + Basic [...] | >60Comment: GFR <60: | >60 | [facility] | | | GFR | CHRONIC KIDNEY [...] | | | | | | MDRD IDID traceable | | | | | | equation.Testing | | | | | | performed at [facility] | | | | | | [facility];[place], [place] | | | | | | [address] | | | | + + + + + + + + | Specimen | + + | Blood | + + + + + + + | Performing | Address | City/State/Zipcode | Phone Number | | Organization | | | | + + + + + | [facility] | [address] | [place] [address] | [phone] | + + + + + documented [...]
--- OUTSIDE RECORDS SUMMARY | ~2019-07-03 | XMS | Encounter Summary ---
Demographics + + + | Address | [address] | | | [place] [address] | + + + | Home Phone [...] Team Providers + +------+ + | Care Benefit Specialist Name | Role | Phone | + +------+ + | Allison Fairchild NP | PCP | | + +------+ + Encounter Details +--------+ + + + + | Date | Type | Department | Care Team | Description | +--------+ + + + + | 04/26/ | Documentati | [facility] | Jaspal Stevenson, | | | 2013 | on | Center at [facility] [address] | MD [address] | | | | | [address] | [place], [place] | | | | | Mailcode: [facility] | [address] | | | | | [facility] | [phone] | | | | | and [address], | | | | | | | | | | | | Floor [place], [place] | | | | | | [address] | | | | | | [phone] | | | +--------+ + + + [...]
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
--- OUTSIDE RECORDS SUMMARY | ~2019-07-03 | XMS | Encounter Summary ---
Demographics + + + | Address | [address] | | | [place] [address] | + + + | Home Phone | | + + + | Preferred Language | Unknown | + + + | Marital Status | | + + + | Muslim Affiliation | Unknown | + + + | Race | White | + + + | Ethnic Group | Not or | + + + Author + + + | Author | [facility] | + + + | Organization | [facility] | + + + | Address | Unknown | + + + | Phone | Unavailable | + + + Support + + +---------+ + | Name | Relationship | Address | Phone | + + +---------+ + | Maria Isabel Cespedes | ECON | Unknown | | + + +---------+ + Care Team Providers + +------+ + | Care Squeegee Finisher Name | Role | Phone | [...] | | | Vonda Khanna Mailcode: | [place], [place] | | | | | [address] Phys[address] | [address] | | | | | [place], | [phone] | | | | | [place] [address] | | | | | | [phone] | | | +--------+ + + + [...]
--- OUTSIDE RECORDS SUMMARY | ~2019-07-03 | XMS | Encounter Summary ---
Demographics + + + | Address | [address] | | | [place] [address] | + + + | Home Phone | | + + + | Preferred Language | Unknown | + + + | Marital Status | | + + + | Worship Affiliation | Unknown | + + + | Race | White | + + + | Ethnic Group | Not or | + + + Author + + + | Author | [facility] | + + + | Organization | [facility] | + + + | Address | Unknown | + + + | Phone | Unavailable | + + + Support + + +---------+ + | Name | Relationship | Address | Phone | + + +---------+ + | Maria Isabel Cespedes | ECON | Unknown | | + + +---------+ + Care Team Providers + +------+ + | Care Immigration Specialist Name | Role | Phone | + +------+ + | Alilson Fairchild NP | PCP | | + [...] | | | Vonda Khanna Mailcode: | [place], [place] | | | | | [address] Phys[address] | [address] | | | | | [place], [facility] Floor | [phone] | | | | | [place] | | | | | | [address] | | | | | | [phone] | | | +--------+ + + + [...]
--- OUTSIDE RECORDS SUMMARY | ~2019-07-03 | XMS | Encounter Summary ---
Demographics + + + | Address | [address] | | | [place] [address] | + + + | Home Phone | | + + + | Preferred Language | Unknown | + + + | Marital Status | | + + + | Caodaism Affiliation | Unknown | + + + [...] Team Providers + +------+ + | Care Home Health Rn Name | Role | Phone | + +------+ + | Allison Fairchild INFORMATION SYSTEMS SECURITY MANAGER | PCP | | + +------+ + Reason for Referral Diagnostic Testing (Routine) +--------+--------+ + + + + | Status | Reason | Specialty | Diagnoses / | Referred By | Referred To | | | | | Procedures | Contact | Contact | +--------+--------+ + + + + | Closed | | Radiology | Diagnoses | Rhm | IP JAN | | | | | Renal | [facility] | | | | | artery | [address] | [address] | | | | | stenosis | Krishan | Sravan | | | | | ([facility]) | Vonda Khanna | Mira | | | | | Procedures | Mailcode: | [place], [place] | | | | | CTA ABDOMEN | [address] | [address] | | | | | RUN OFF WWO | Physician's | Phone: | | | | | IV CONTRAST | Pavilion | [phone] | | | | | SC CT SCAN | [facility] [place] | Fax: | | | | | OF ABDOMEN | [address] | [phone] | | | | | COMBO | Phone: | | | | | | | [phone] | | | | | | | Fax: | | | | | | | [phone] | | +--------+--------+ + + + + [...] Order (CTA | | 2019 | | Physicians [place] | MD Alejandrina Ordaz | / [place]) | | | | [address] | [address] | | | | | Vonda Khanna Mailcode: | [place], [place] | | | | | [address] Physician's | [address] | | | | | [place], | [phone] | | | | | [place] [address] | | | | | | [phone] | | | +--------+ + + + [...] | | + +---------+--------+ + + | CTA ABDOMEN RUN OFF | Imaging | Routin | Renal artery | Expected: | | WWO IV CONTRAST | | e | stenosis (HCC) | 11/18/2018, Expires: | | | | | | 2019 | + +---------+--------+ + + | US DOPPLER ABDOMEN | Imaging | Routin | Renal artery | Expected: | | COMP | | e | stenosis (HCC) | 11/18/2018, Expires: | | | | | | 2019 | + +---------+--------+ + + documented as of this encounter Visit Diagnoses + + | Diagnosis | + + | Renal artery stenosis (HCC) - Primary Atherosclerosis of renal artery | + + documented in this encounter"
--- OUTSIDE RECORDS SUMMARY | ~2019-07-03 | XMS | Encounter Summary ---
Demographics + + + | Address | [address] | | | [place] [address] | + + + | Home Phone | | + + + | Preferred Language | Unknown | + + + | Marital Status | | + + + | Religion Affiliation | Unknown | + + + [...] Team Providers + +------+ + | Care Acid Remover Name | Role | Phone | + [...] | | | | | Vonda Khanna [place], | | | | | | [place] [address] | | | +--------+--------+ + + + [...]
--- OUTSIDE RECORDS SUMMARY | ~2019-07-03 | XMS | Encounter Summary ---
Demographics + + + | Address | [address] | | | [place] [address] | + + + | Home Phone | | + + + | Preferred Language | Unknown | + + + | Marital Status | | + + + | Pentecostal Affiliation | Unknown | + + + [...] Team Providers + +------+ + | Care Gate Services Supervisor Name | Role | Phone | + +------+ + | Allison Fairchild AIR DEFENSE SPECIALIST | PCP | | + +------+ + [...] | | | | | spondylosis | AIR DEFENSE SPECIALIST Good | [address] | | | | | with | Lio | [address] | | | | | radiculopath | [facility] | Jey [place], | | | | | y, lumbar | [address] | [place] | | | | | region | [address] | [address] | | | | | Acute kidney | [facility], | Phone: | | | | | failure, | [place] [address] | [phone] | | | | | unspecified | Phone: | Fax: | | | | | Other | [phone] | [phone] | | | | | disorder of | Fax: | | | | | | circulatory | [phone] | | | | | | system [...] | Visit | Physicians [place] Rehman MD [address] [facility] | stenosis (HCC) | | | | [address] | [address] | (Primary Dx); ESR | | | | [address] Mailcode: | [place], [place] | raised; 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 | | | | [place], [address] Floor | [phone] | ([facility]) | | | | [place], [place] | | | | | | [address] | | | | | | [phone] | | | +--------+---------+ + + + [...] inflammation) on 2018 study per review with [facility] radiology - iliac artery dissection present on 01/2018 study per review with [facility] radiology- stable - proximal SMA may also be slightly abnormal on 11/2018 per review with [facility] radiology, leena mmend follow-up ultrasound, done 12/2018 limited but without obvious SMA changes - 02/2019: repeat CTA abd/pelvis but poor quality outside study with significant motion shannan fact, could not comment on renal aa or SMA. Chronic iliac dissection stable. Proximal aorta somewhat thickened. Overall suspicion for vasculitis low given variable vessel involvement, prolonged time period, dissections. Repeating CTA abd/pelvis at [facility] .S: Here with [place] Having pain [...] HPI. Please review the scanned document in PSYCHIATRIC for full details. - Cold all the [...] 1,000 mg by mouth four times daily. gh-rjk-tuxeb acid-lutein (CENTRUM SILVER) 400-250 mcg oral tablet,chewable [...] review findings with radiology early next w [place] Plan- - follow-up RPR - encouraged patient [...] the attestation. Chiquis Norman MD RHEUMATOLOGY AT [address] Mailcode: [address] [place] [address] Associated attestation - Dejah Aguilera MD - 03/14/2019 1:52 PM PDTI have seen and ev aluated this patient with Dr. Norman. I agree with the documented findings, assessment, an d plan as detailed above. Dejah Aguilera MD RHEUMATOLOGY AT [address] Mailcode: [address] [place] [address] documented in this encounter Plan [...]
--- OUTSIDE RECORDS SUMMARY | ~2019-07-03 | XMS | Encounter Summary ---
Demographics + + + | Address | [address] | | | [place] [address] | + + + | Home Phone [...] Team Providers + +------+ + | Care Job Boss Name | Role | Phone | + [...] | | | | | | | [place], [place] | | | | | | | [address] | | | | | | | Phone: | | | | | | | [phone] | | | | | | | Fax: | | | | | | | [phone] | +--------+--------+ + + + + Encounter Details +--------+---------+ + + + | Date | Type | Department | Care Team | Description | +--------+---------+ + + + | 04/21/ | Office | [facility] | Jaspal Stevenson, | Allergic rhinitis, | | 2012 | Visit | Center at [facility] [address] | [address] | cause unspecified | | | | [address] | [place], [place] | (Primary Dx); | | | | Mailcode: CHE | [address] | Deviated nasal | | | | [place] [facility] | [phone] | septum; Hypertrophy | | | | and Healing, | | of nasal turbinates | | | | Building [address] | | | | | | Floor [place], [place] | | | | | | [address] | | | | | | [phone] | | | +--------+---------+ + + + [...] Ruiz. Jaspal Stevenson M.D., M.P.H., F.A.C.S. Director, [facility] Professor and Chief, Rhinology and Sinus Surgery Department of Otolaryngology/Head and Neck Surgery Ninoska medina PA -C - 04/21/2013 11:52 AM PDT I, NINOSKA OTIS, PA-C, am functioning as a scribe for Dr. Stevenson. [facility] HPI: Reza Cespedes is a 52 y.o. male who presents to the [facility] in [facility] for Septal deviation and Turbinate hypertrophy. Current [...] | + +--------+ + + + | [place] NASAL | Routin | 04/22/2013 | Allergic [...]
--- OUTSIDE RECORDS SUMMARY | ~2019-07-03 | XMS | Encounter Summary ---
Demographics + + + | Address | [address] | | | [place] [address] | + + + | Home Phone [...] Author | [facility] | | | and Alexana | + + + | Organization | [facility] [...] [place] | | | | | [address] | | + + + + + Care Team Providers + +------+ + | Care Event Lighting Specialist Name | Role | Phone | + +------+ + | Allison Fairchild VICE PRESIDENT OF PROCUREMENT | PCP | Unavailable | + +------+ [...] | | artery | RAIN [address] | [place], [place] | | | | | disease) | [place], [place] | [address] | | | | | (HCC) | [address] | Phone: | | | | | Procedures | Phone: | [phone] | | | | | IR Stent | [phone] | Fax: | | | | | Iliac | Fax: | [phone] | | | | | | [phone] | | +--------+--------+ + + + + Reason for Visit + + + | Reason | Comments | + + + | Follow-up | 6 mon f/u on CTA | + + + Encounter Details +--------+---------+ + + + | Date | Type | Department | Care Team | Description | +--------+---------+ + + + | 05/26/ | Office | [facility] | Rich Washington MD | 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 Patient reports he i s on [facility] currently. CT ANGIOGRAM CHEST ABDOMEN AND PELVIS [...] Procedure: ERCP; Surgeon: Dc Naik MD; [facility] ERCP N/A 02/12/2018 Procedure: ERCP; Surgeon: Dc Naik MD; [facility] FRACTURE SURGERY 2011 skull/facial HARDWARE REMOVAL Right Hardware placement and removal thumb HERNIA REPAIR pt has 2 hernia repairs and 3rd revision on 12-18-14 hip screw removed Right 2014 Nasal reconstruction 1978 right hip/pelvis surgery 2012 [facility] 2011 UPPER GASTROINTESTINAL ENDOSCOPY UPPER GASTROINTESTINAL ENDOSCOPY N/A 10/23/2015 Procedure: EGD; Surgeon: Adrian Aponte MD; [facility] UPPER GASTROINTESTINAL ENDOSCOPY N/A 11/18/2017 Procedure: EGD; Surgeon: Adrian Aponte MD; [facility] XR LUMBAR SPINE COMPLETE [...] CV: No peripheral edema, rate regular SKIN: [place], warm, dry without rash/lesion MS: ROM not [...] SURGEON: | | | Rich Washington MD AIRLINE CUSTOMER SERVICE AGENT: None ANESTHESIA: Moderate sedation and local | [...] | | identified and brought to the Strainer Tender. The patient was placed supine | | [...] sized to a 6 | | | Belarusian sheath. A Omni flush catheter was then [...] identified and brought | | |to the Strainer Tender. The patient was placed supine on the [...] | | |up sized to a 6 Belarusian sheath. A Omni flush catheter was then [...]
--- OUTSIDE RECORDS SUMMARY | ~2019-07-03 | XMS | Encounter Summary ---
Demographics + + + | Address | [address] | | | [place] [address] | + + + | Home Phone | | + + + | Preferred Language | Unknown | + + + | Marital Status | | + + + | Confucianist Affiliation | Unknown | + + + [...] Team Providers + +------+ + | Care Netezza Architect Name | Role | Phone | [...]
--- OUTSIDE RECORDS SUMMARY | ~2019-07-03 | XMS | Encounter Summary ---
Demographics + + + | Address | [address] | | | [place] [address] | + + + | Home Phone [...] Providers + +------+ + | Care Research Development Manager Name | Role | Phone [...] | | | | | | at [address] Floor | | | | | | [address] | | | | | | [place], | | | | | | [place] [address] | | | | | | [phone] | | | +--------+------+ + + + [...] by | | | | | | [employer],[address] | | | | | | [address], [facility] | | | | | | [address] | | | | | | [phone].[email or web address]. | | | | | | Melecio [...] [facility] | [address] | [place], [place] | | | UNIV PTH - INTFC | | [address] | | + + + + + [...] [facility] | [address] | [place] [address] | | | SERVICES, CORE | PARK [...] | + + + + + | [facility] | [address] | [place] [address] | | | SERVICES, CORE | DORIAN [...] | + + + + + | [facility] | [address] | [place] [address] | | | SERVICES, CORE | PARK [...] [facility] | | | NIL | by [employer],[address] | | REG UNIV | | | | [address], [facility] | | PTH - INTFC | | | | [address] | | | | | | [phone]. | | | | | | Melecio [...] (http://www.cdc.gov/mmwr | | | | | | /preview/mmwrhtml/pg2186 | | | | | | a1.htm), [...] [facility] | [address] | [place], [place] | | | UNIV PTH - INTFC | | [address] | | + + + + + [...] | + + + + + | [facility] | [address] | [place] [address] | | | SERVICES, CORE | PARK [...] [facility] | [address] | [place] [address] | | | SERVICES, CORE | PARK [...] | | | LABORATORY | | | CYMRO | | | SERVICES, | | | [...] the MDRD equation recommended by the | [facility] | | National Kidney Disease Education [...] | + + + + + | [facility] | [address] | [place] [address] | | | CHUYITA, CORE | DORIAN [...] | + + + + + | [facility] | [address] | [place] [address] | | | SERVICES, [place] | [address] | | | + + + + + documented in this encounter Visit Diagnoses + + | Diagnosis | + + | 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
--- OUTSIDE RECORDS SUMMARY | ~2019-07-03 | XMS | Encounter Summary ---
Demographics + + + | Address | [address] | | | [place] [address] | + + + | Home Phone [...] Author | [facility] | | | and Alexana | + + + | Organization | [facility] | | | and [...] [place] | | | | | [address] | | + + + + + Care Team Providers + +------+ + | Care Packing And Final Assembly Supervisor Name | Role | Phone | + +------+ + | Allison Fairchild NP | PCP | Unavailable | + +------+ + Encounter Details +--------+ + + + + | Date | Type | Department | Care Team | Description | +--------+ + + + + | 04/26/ | Orders Only | [facility] | Tyron Hsu DNP | Renal artery | | 2019 | | VASCULAR SURGERY | [address] | stenosis (HCC) | | | | [address] | [place] | (Primary Dx) | | | | [place], [place] | [address] | | | | | [address] | | | | | | [phone] | | | +--------+ + + + [...]
--- OUTSIDE RECORDS SUMMARY | ~2019-07-03 | XMS | Encounter Summary ---
Demographics + + + | Address | [address] | | | [place] [address] | + + + | Home Phone [...] Team Providers + +------+ + | Care Graduate Research Assistant Name | Role | Phone | [...] Rd | | | | | | [place], [place] | | | | | | [address] | | | +--------+ + + + [...]
--- OUTSIDE RECORDS SUMMARY | ~2019-07-03 | XMS | Encounter Summary ---
Demographics + + + | Address | [address] | | | [place] [address] | + + + | Home Phone [...] Team Providers + +------+ + | Care Vinyl Hanger Name | Role | Phone | [...] Rd | | | | | | [place], [place] | | | | | | [address] | | | +--------+ + + + [...]
--- OUTSIDE RECORDS SUMMARY | ~2019-07-03 | XMS | Encounter Summary ---
Demographics + + + | Address | [address] | | | [place] [address] | + + + | Home Phone [...] Providers + +------+ + | Care Donkey Doctor Name | Role | Phone | + +------+ + | Allison Fairchild IRON AND STEEL WORK SUPERVISOR | PCP | | + +------+ + [...] | | | | | Renal | [facility] | [facility] | | | | | artery | [address] | [address] | | | | | stenosis | Krishan | Sravan | | | | | ([facility]) | [address] Khanna | Mira | | | | | Procedures | Mailcode: | [place], [place] | | | | | CTA ABDOMEN | [address] | [address] | | | | | RUN OFF [address]WO | Physician's | Phone: | | | | | IV CONTRAST | Pavilion | [phone] | | | | | [place] CT SCAN | [facility] [place] | Fax: | | | | | OF ABDOMEN | [address] | [phone] | | | | | COMBO | Phone: | | | | | | | [phone] | | | | | | | Fax: | | | | | | | [phone] | | +--------+--------+ + + + + [...] | | | Vonda Khanna Mailcode: | [place], [place] | | | | | [address] Physician's | [address] | | | | | [place], | [phone] | | | | | [place] [address] | | | | | | [phone] | | | +--------+ + + + [...]
--- OUTSIDE RECORDS SUMMARY | ~2019-07-03 | XMS | Clinical Summary ---
Demographics + + + | Address | [address] | | | [place] [address] [...] | Author | [facility] (Historical as of | | | 04-23-19) | + + + | Organization | [facility] (Historical as of | | | 04-23-19) [...] [place] | | | | | [address] | | + + + + + Care Team Providers + +------+ + | Care Power Generation Engineer Name | Role | Phone | [...] 2012 for which he was flown to [facility] | | and had multiple injuries [...] | 02/03/ | PCDG1 | | - [id number]: Qty: 1 | | | | | 2014 | / | | on 03/27/2014 by Mc, | | | | | | /[id number] | | MD Jamie | | | | | | 5 | + +------+--------+ +--------+--------+--------+ | Mesh Hernia Composix Kugel | | N/A: | DAVOL | | 05/03/ | [id number] | | Oval Large - | | Abdome | | | 2015 | 2 / | | [id number]: Qty: 1 on | | n | | | | /[id number] | | 07/03/2014 by Jamie Bentley, | | | | | | 417 | | | | | | | | | + +------+--------+ +--------+--------+--------+ | Mesh Ventrio Oval Eptfe | | | [facility] | | 05/07/ | [id number] | | Xlarge - [id number]: | | | ick | | 2016 | 8 | | Qty: 1 on 12/18/2014 by | | | | | | /[id number] | | Jamie Bentley MD | | | | | | 18 | | | | | | | | /[id number] | | | | | | | | 608 | + +------+--------+ +--------+--------+--------+ | Mesh Prol [id number] - | | | JJHCS | | 07/07/ | PMH / | | SnaImplanted: Qty: 1 on | | | ETHICON | | 2020 | / | | 11/10/2016 by Jamie Bentley, | | | ENDOSCOPY - | | | [id number] | | | | | ETHE | [...] | | [facility] | | 05/06/ | [id number] | | 4"X6" - [id number]: | | | ick | | 2014 | 0 / | | Qty: 1 on 03/27/2014 by | | | | | | /ANNAHO | | Jamie Bentley MD | | | | | | 760 | + +------+------+ +--------+--------+--------+ | Mesh Hernia Composix Kugel | | | DAVOL | | | [id number] | | Oval Large - | | | | | | 2 | | [id number]: Qty: 1 on | | | | | | /[id number] | | 12/18/2014 by Jamie Bentley, | [...] +------+-------+ + | MEDICAID | [place] | [id number] | | | [address] | | | N | | | | [place] | | | [place] | | | | [phone] | | | GERIATRIC NURSING ASSISTANT | | | | | + +--------+ [...] | 1961 | [phone] | [place] [address] | | | [place] | | | [phone] | | + +--------+ +--------+ + +
--- OUTSIDE RECORDS SUMMARY | ~2019-07-03 | XMS | Encounter Summary ---
Demographics + + + | Address | [address] | | | [place] [address] | + + + | Home Phone | | + + + | Preferred Language | Unknown | + + + | Marital Status | | + + + | Druze Affiliation | Unknown | + + + [...] Team Providers + +------+ + | Care Pick Up And Delivery Driver Name | Role | Phone | [...] | | | | | [place]onda [place], | | | | | | [place] [address] | | | +--------+--------+ + + + [...]
--- OUTSIDE RECORDS SUMMARY | ~2019-07-03 | XMS | Clinical Summary ---
Demographics + + + | Address | [address] | | | [place] [address] | + + + | Home Phone [...] Providers + +------+ + | Care Chief Medical Director Name | Role | Phone | + +------+ + | Allison Fairchild NP | PCP | | + +------+ + Source Comments TANYA is fully live on both [facility] and [facility] InPatient.[facility] Allergies + + + + + + [...] | | + + + +---------+------+------+-------+ | [id number] | Chew and swallow. | | 0 [...] | | | | resent | | [place], [place] | | | | | | | | [address] | | + +--------+ +--------+ + +--------+ | BENEFITS OFFICER MEDICAID | BENEFITS OFFICER | [id number] | 09/11/19 | | [...] | 1961 | [phone] | [place] [address] | | | [place] | | | 1 (Home) | | + +--------+ +--------+ + + | Reza Cespedes | Worker | Self | 12/19/ | | [address] | | | s Comp | | 1961 | [phone] | [place] [address] | | | | | | 1 (Home) | | + +--------+ +--------+ + +
[~2019-07-03 09:05] MED LIST changes: +CATAPRES0.2 MG PO; +GABAPENTIN600 MG PO
--- OUTSIDE RECORDS SUMMARY | 2019-07-03 09:08 | XMS ---
PreManage Notification: APARNA HAN Security Veterinary Milk Specialist Events No recent Security Events currently on file CRITERIA MET - [facility] - [facility] Care Guidelines [facility] Margarita Samayoa Optometrist/Practice Owner/Manager Small Business 03/07/2019-Current PHONE: [phone] DA Pineda Nurse Practitioner: Family 10/21/2018-Current PHONE: Unknown Margarita Samayoa Primary Care 03/07/2019-Current PHONE: [phone] Toan has no Care Guidelines for this patient. 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 Reese VISIT COUNT (12 MO.) 4 SELVIN Chance TOTAL 4 NOTE: Visits indicate total known visits. ED/UCC VISIT TRACKING (12 MO.) 07/03/2019 09:05 [facility] [place] TYPE: Emergency COMPLAINT: - POSS ABSCESS 05/27/2019 10:40 [facility] [place] TYPE: Emergency COMPLAINT: - BLOOD PRESSURE PROBLEM, BACK/ABD PAIN DIAGNOSES: - Dorsalgia, unspecified - Chest pain, unspecified - Allergy status to penicillin - Essential (primary) hypertension - Personal history of nicotine dependence - Allergy status to analgesic agent status - Upper abdominal pain, unspecified - Other nonmedicinal substance allergy status 11/05/2018 16:52 [facility] [place] TYPE: Emergency COMPLAINT: - KIDNEY PROBLEM DIAGNOSES: - Other chronic pain - Dissection of iliac artery - Personal history of other infectious and parasitic diseases - Oth allergy status, oth than to drugs and biolg substances - Personal history of nicotine dependence - Major depressive disorder, single episode, unspecified - Anxiety disorder, unspecified - Allergy status to oth drug/meds/biol subst status - Other middle or intermediate school principal (current) drug therapy - Allergy status to penicillin 10/20/2018 14:24 [facility] [place] TYPE: Emergency COMPLAINT: - HIP PAIN/FALL DIAGNOSES: - Personal history of nicotine dependence - Allergy status to penicillin - Contusion of right hip, initial encounter - Allergy status to oth drug/meds/biol subst status - Pain in right hip - Anxiety disorder, unspecified - Other nonmedicinal substance allergy status - Other senior care (current) drug therapy - Fall on same level due to ice and snow, initial encounter - Major depressive disorder, single episode, unspecified INPATIENT VISIT TRACKING (12 MO.) No inpatient visits to display in this time frame [email or web address]
[2019-07-03] MEDS ORDERED: KEFLEX500 MG PO (09:35)
[2019-07-03] MEDS ORDERED: BACTRIM DS TAB1 EACH PO (10:05)
== END 2019-07-03 10:45 | disposition home or self-care (01) ==
LOC: ED 09:05
DX: L02.211 Cutaneous abscess of abdominal wall (principal); Z87.891 Personal history of nicotine dependence; Z88.0 Allergy status to penicillin; Z88.5 Allergy status to narcotic agent; Z88.6 Allergy status to analgesic agent; Z91.048 Other nonmedicinal substance allergy status
CPT/HCPCS: 85025; 96365; 99283-25; J0696; J7030

== ENCOUNTER 2020-01-30 23:44 | Emergency (ER) | payer OTHER ==
[~2020-01-30] VITALS: Ht 180.3 cm; Wt 95.2 kg
--- OUTSIDE RECORDS SUMMARY | ~2020-01-30 | XMS | Encounter Summary ---
Demographics + + + | Address | [address] | | | [place] [address] | + + + | Home Phone | | + + + | Preferred Language | Unknown | + + + | Marital Status | | + + + | Restorationist Affiliation | Unknown | + + + | Race | White | + + + | Ethnic Group | Not or | + + + Author + + + | Author | [facility] | + + + | Organization | [facility] | + + + | Address | Unknown | + + + | Phone | Unavailable | + + + Support + + +---------+ + | Name | Relationship | Address | Phone | + + +---------+ + | Maria Isabel Cespedes | ECON | Unknown | | + + +---------+ + Care Team Providers + +------+ + | Care Manager Testing Name | Role | Phone | + +------+ + | Allison Fairchild NP | PCP | | + +------+ + Reason for Visit + + + | Reason | Comments | + + + | Radiology Order | [facility] / US | + + + Encounter Details +--------+ + + + + | Date | Type | Department | Care Team | Description | +--------+ + + + + | 11/05/ | Telephone | Rheumatology at | Debbie Em, | Radiology Order ([facility]A | | 2019 | | Sahra Ybarra | [address] | / [place]) | | | | [address] | Krishan Ferrari | | | | | [address] [facility] | [place], [place] | | | | | [address] | [address] | | | | | [place], [place] | [phone] | | | | | [address] | | | | | | [phone] | | | +--------+ + + + + Social History + +-------+ +--------+------+ | Tobacco Use | Types | Packs/Day | Years | Date | | | | | Used | | + +-------+ +--------+------+ | Former Smoker | | | | | + +-------+ +--------+------+ + +---+---+---+ | Smokeless Tobacco: | | | | | Never Used | | | | + +---+---+---+ + + | Comments: quit 06/2018 | + + + + +---------+ + | Alcohol Use | Drinks/Week | oz/Week | Comments | + + +---------+ + | No | | | | + + +---------+ + + + + | Sex Assigned at | Date Recorded | | | | + + + | Not on file | | + + + + + + + | Job Start Date | Occupation | Industry | + + + + | Not on file | Not on file | Not on file | + + + + + + + + | Travel History | Travel Start | Travel End | + + + + + + | No recent travel history available. | + + documented as of this encounter Plan of Treatment Not on filedocumented as of this encounter Visit Diagnoses + + | Diagnosis | + + | Renal artery stenosis (HCC) - Primary Atherosclerosis of renal artery | + + documented in this encounter"
--- OUTSIDE RECORDS SUMMARY | ~2020-01-30 | XMS | Encounter Summary ---
Demographics + + + | Address | [address] | | | [place] [address] | + + + | Home Phone | | + + + | Preferred Language | Unknown | + + + | Marital Status | | + + + | Scientologist Affiliation | 1013 | + + + | Race | Unknown | + + + | Ethnic Group | Unknown | + + + Author + + + | Author | [facility] | | | and [place] | + + + | Organization | [facility] | | | and [place] | + + + | Address | Unknown | + + + | Phone | Unavailable | + + + Support + + + + + | Name | Relationship | Address | Phone | + + + + + | Teodora Cespedes | ECON | [address] | | | | | [place] | | | | | [address] | | + + + + + Care Team Providers + +------+ + | Care Show Host Or Hostess Name | Role | Phone | + +------+ + | Allison Fairchild NP | PCP | | + +------+ + Reason for Visit + + + | Reason | Comments | + + + | Surgery Appointment | reschedule 10/14 appointment | + + + Encounter Details +--------+ + + + + | Date | Type | Department | Care Team | Description | +--------+ + + + + | 10/13/ | Telephone | [facility] | Anival Stevenson MD | Surgery Appointment | | 2020 | | GENERAL SURGERY [address] | [address] | (reschedule 10/14 | | | | [address] | [address] [place], [place] | appointment) | | | | [place], [place] | [address] | | | | | [address] | | | | | | [phone] | | | +--------+ + + + + Social History + + + +--------+ + | Tobacco Use | Types | Packs/Day | Years | Date | | | | | Used | | + + + +--------+ + | Former Smoker | Cigarettes | 1 | 25 | Quit: 07/04/2018 | + + + +--------+ + + +---+---+---+ | Smokeless Tobacco: | | | | | Never Used | | | | + +---+---+---+ + + +---------+ + | Alcohol Use | Drinks/Week | oz/Week | Comments | + + +---------+ + | No | 0 Standard drinks | 0.0 | | | | or equivalent | | | + + +---------+ + [...] filedocumented as of this encounter Visit Diagnoses Not on filedocumented in this encounter"
--- OUTSIDE RECORDS SUMMARY | ~2020-01-30 | XMS | Encounter Summary ---
Demographics + + + | Address | [address] | | | [place] [address] | + + + | Home Phone | | + + + | Preferred Language | Unknown | + + + | Marital Status | | + + + | Mormonism Affiliation | 1013 | + + + | Race | Unknown | + + + | Ethnic Group | Unknown | + + + Author + + + | Author | [facility] | | | and [place] | + + + | Organization | [facility] | | | and [place] | [...] [place] | | | | | [address] | | + + + + + Care Team Providers + +------+ + | Care Psychodramatist Name | Role | Phone | + +------+ + | Allison Fairchild NP | PCP | | + +------+ + Encounter Details +--------+ + + + + | Date | Type | Department | Care Team | Description | +--------+ + + + + | 01/01/ | Orders Only | [facility] | Rd Busby MD | | | 2015 | | [address] | [address] | | | | | [place] | [place] | | | | | [address] | [address] | | | | | [phone] | [phone] | | | | | | | [...] | + +--------+ + + + | COMPREHENSIVE | Routin | 01/01/2015 | | Results for this | | METABOLIC PANEL | e | 2:15 PM | | procedure are in the | | | | PDT | | results section. | + +--------+ + + + documented in this encounter Results Comprehensive Metabolic Panel (01/01/2015 2:15 PM PDT) + + + + + + | Component | Value | Ref Range | Performed | Pathologist | | | | | At | Signature | + + + + + + | Na | 137 | 135 - 143 | EXTERNAL | | | | | mmol/L | LAB | | + + + + + + | K | 4.5 | 3.5 - 4.9 | EXTERNAL | | | | | mmol/L | LAB | | + + + + + + | Cl | 103 | 99 - 109 mmol/L | EXTERNAL | | | | | | LAB | | + + + + + + | CO2 | 26 | 23 - 32 mmol/L | EXTERNAL | | | | | | LAB | | + + + + + + | Anion Gap | 13 | 5 - 20 mmol/L | EXTERNAL | | | | | | LAB | | + + + + + + | Glucose, | 109 (H) | 65 - 99 mg/dL | EXTERNAL | | | Fasting | | | LAB | | + + + + + + | BUN | 20 | 8 - 25 mg/dL | EXTERNAL | | | | | | LAB | | + + + + + + | Creatinine | 0.87 | 0.70 - 1.30 | EXTERNAL | | | | | mg/dL | LAB | | + + + + + + | BUN/Creatin | 23 | | EXTERNAL | | | ine Ratio | | | LAB | | + + + + + + | Calcium | 9.9 | 8.5 - 10.5 | EXTERNAL | | | | | mg/dL | LAB | | + + + + + + | Protein, | 7.1 | 6.3 - 8.2 g/dL | EXTERNAL | | | Total | | | LAB | | + + + + + + | Albumin | 4.0 | 3.6 - 5.0 g/dL | EXTERNAL | | | | | | LAB | | + + + + + + | Globulin | 3.1 | 1.3 - 4.9 g/dL | EXTERNAL | | | | | | LAB | | + + + + + + | A/G Ratio | 1.3 | 1.0 - 2.4 | EXTERNAL | | | | | | LAB | | + + + + + + | Bilirubin | 0.4 | 0.1 - 1.5 mg/dL | EXTERNAL | | | Total | | | LAB | | + + + + + + | ALP, | 106 | 35 - 115 U/L | EXTERNAL | | | External | | | LAB | | + + + + + + | AST | 41 | 10 - 45 U/L | EXTERNAL | | | | | | LAB | | + + + + + + | ALT | 28 | 10 - 65 U/L | EXTERNAL | | | | | | LAB | | + + + + + + | Estimated | >60Comment: GFR <60: | mL/min/1.73m2 | EXTERNAL | | | GFR | CHRONIC KIDNEY DISEASE, | | LAB | | | | IF FOUND OVER A 3 MONTH | | | | | | PERIOD. GFR <15: KIDNEY | | | | | | FAILURE. FOR | | | | | | AMERICANS, MULTIPLY THE | | | | | | CALCULATED GFR BY | | | | | | 1.210.Testing performed | | | | | | at TCL;[address] | | | | | | [place] | | | | | | [address] | | | | + + + [...]
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
--- OUTSIDE RECORDS SUMMARY | ~2020-01-30 | XMS | Encounter Summary ---
Demographics + + + | Address | [address] | | | [place] [address] | + + + | Home Phone | | + + + | Preferred Language | Unknown | + + + | Marital Status | | + + + | Temple Affiliation | 1013 | + + + | Race | Unknown | + + + | Ethnic Group | Unknown | + + + Author + + + | Author | [facility] | | | and [place] | + + + | Organization | [facility] | | | and [place]ana [...] [place] | | | | | [address] | | + + + + + Care Team Providers + +------+ + | Care Mobile Application Engineer Name | Role | Phone | + [...] | | | | | | | LA | | | | | | | ESOPHAGOGAST | | | | | | | RODUODENOSCO | | | | | | | PY TRANSORAL | | | | | | | DIAGNOSTIC | | | | | | | LA EGD | | | | | | | TRANSORAL | | | | | | | BIOPSY | | | | | | | SINGLE/MULTI | | | | | | | PLE LA | | | | | | | ANESTHESIA | | | | | | | UPPER GI | | | | | | | ENDOSCOPIC | | | | | | | PX NOS EGD | | | +--------+--------+ + + + + Encounter Details +--------+ + + + + | Date | Type | Department | Care Team | Description | +--------+ + + + + | 11/18/ | Anesthesia | [facility] | Tre Mann, | | | 2017 | Event | [facility] | DO [address] | | | | | [address] | [place] | | | | | [place] | [id number] | | | | | [address] | | | | | | [phone] | | | +--------+ + + + + Anesthesia Record + + + + + | Procedure Name | Responsible | Anesthesia Start | Anesthesia Stop Time | | | Anesthesiologist | Time | | + + + + + | EGD (N/A Leigh) | Tre Mann DO | 11/18/1731 | 11/18/17854 | + + + + + +----+---+ + + | Da | T | Event | Comment | | te | i | | | | | m | | | | | e | | | +----+---+ + + | 03 | 0 | | | | /1 | 7 | | | | 4/ | 4 | | | | 20 | 9 | | | | 18 | | | | +----+---+ + + | | 0 | An Checkout | Pre-use anesthesia machine/equipment checkout. | | | 8 | | | | | 3 | | | | | 1 | | | +----+---+ + + | | 0 | An Start | Reassessment prior to anesthesia induction/procedure. | | | 8 | | | | | 3 | | | | | 1 | | | +----+---+ + + | | 0 | AN | Per surgeon request | | | 8 | Antibiotic | | | | 3 | declined | | | | 1 | | | +----+---+ + + | | 0 | Pre-Procedu | | | | 8 | ral Timeout | | | | 3 | Completed | | | | 3 | | | +----+---+ + + | | 0 | An | | | | 8 | Induction | | | | 3 | | | | | 4 | | | +----+---+ + + | | 0 | First | | | | 8 | Inc/Proc St | | | | 3 | | | | | 6 | | | +----+---+ + + | | 0 | Breathing | | | | 8 | Spontaneous | | | | 4 | ly | | | | 9 | | | +----+---+ + + | | 0 | an stop | | | | 8 | data | | | | 4 | | | | | 9 | | | +----+---+ + + | | 0 | An Stop | Patient handed off to recovery nurse. | | | 5 | | | | | 5 | | | +----+---+ + + +------+ | Meds | +------+ + + + | Name | Total | + + + | lidocaine 2% | 50 mg | + + + | propofol | 268.77 mg | + + + | lactated ringers (LR) infusion | 500 mL | + + + + + | Name | + + | O2 Flow Rate (L/Min) | + + + + | No blood administrations on file. | + + +--------+ + + + | Type | Details | Placement | Removal | +--------+ + + + | Periph | 11/18/17; 0819; Right; Hand; | 11/18/17 08 by | 11/18/17926 by | | eral | [id number] catheter system; | Shayna Mena RN | Shayna Mena RN | | IV | 20 gauge, 1 1/2 in length; | | | | | distraction, intradermal | | | | | injection, tolerated well; no | | | | | longer indicated, catheter/device | | | | | intact, removed per | | | | | policy/procedure; short term use; | | | | | 11/18/17; 926 | | | +--------+ + + + documented in this encounter Social History + + + +--------+------+ | [...] Diagnoses Not on filedocumented in this encounter Administered Medications + +---------+ +------+-------+------+ | Medication Order | MAR | Action | Dose | Rate | Site | | | Action | Date | | | | + +---------+ +------+-------+------+ | lactated ringers (LR) infusion | New Bag | 11/19/19 | | 100 | | | at 10-100 mL/hr, Intravenous, | | 18 8:20 | | mL/hr | | | CONTINUOUS, Starting 11/18/17 | | AM PDT | | | | | at 0830, TKO., Pre-op | | | | | | + +---------+ +------+-------+------+ +---------+ +---+---+---+ | New Bag | 11/19/19 | | | | | | 18 8:16 | | | | | | AM PDT | | | | +---------+ +---+---+---+ +---+---+ | | | +---+---+ + +-------+ +-------+---+---+ | lidocaine (PF) 2% injection | Given | 11/19/19 | 50 mg | | | | Intravenous, PRN, Starting Wed | | 18 8:35 | | | | | 11/18/17 at 0835, Anesthesia | | AM PDT | | | | | Intra-op | | | | | | + +-------+ +-------+---+---+ +---+---+ | | | +---+---+ + + + + +-------+---+ | propofol (DIPRIVAN) injection | Rate/Dos | 11/19/19 | 140 | 78.1 | | | Intravenous, CONTINUOUS PRN, | e Change | 18 8:46 | mcg/kg/m | mL/hr | | | Starting 11/18/17 at 0835, | | AM PDT | in | | | | Anesthesia Intra-op | | | | | | + + + + +-------+---+ +---------+ + +--------+---+ | New Bag | 11/19/19 | 250 | 139.5 | | | | 18 8:35 | mcg/kg/m | mL/hr | | | | AM PDT | in | | | +---------+ + +--------+---+ +---+---+ | | | +---+---+ documented in this encounter"
--- OUTSIDE RECORDS SUMMARY | ~2020-01-30 | XMS | Encounter Summary ---
Demographics + + + | Address | [address] | | | [place] [address] | + + + | Home Phone | | + + + | Preferred Language | Unknown | + + + | Marital Status | | + + + | Presybeterian Affiliation | 1013 | + + + | Race | Unknown | + + + | Ethnic Group | Unknown | + + + Author + + + | Author | [facility] | | | and [place] | + + + | Organization | [facility] | | | and [...] [place] | | | | | [address] | | + + + + + Care Team Providers + +------+ + | Care Missile Inspector Preflight Name | Role | Phone | + [...] + + | 10/13/ | Telephone | [facility] | Anival Stevenson MD | Surgery Appointment | | 2020 | | GENERAL SURGERY [address] | [address] | (reschedule 10/14 | | | | [address] | [address] [place], [place] | appointment) | | | | [place], [place] | [address] | | | | | [address] | | | | | | [phone] | | | +--------+ + + + [...]
--- OUTSIDE RECORDS SUMMARY | ~2020-01-30 | XMS | Encounter Summary ---
Demographics + + + | Address | [address] | | | [place] [address] | + + + | Home Phone | | + + + | Preferred Language | Unknown | + + + | Marital Status | | + + + | Nondenominational Affiliation | 1013 | + + + | Race | Unknown | + + + | Ethnic Group | Unknown | + + + Author + + + | Author | [facility] | | | and [place] | + + + | Organization | [facility] | | [...] [place] | | | | | [address] | | + + + + + Care Team Providers + +------+ + | Care Casting Sorter Name | Role | Phone | + +------+ + | Allison Fairchild NP | PCP | | + +------+ + Encounter Details +--------+ + + + + | Date | Type | Department | Care Team | Description | +--------+ + + + + | 10/07/ | Abstract | [facility] | Dc Naik MD | | | 2017 | | GASTROENTEROLOGY | [address], [place] | | | | | [address] [place] | [address] [place], [place] | | | | | [address], [place] | [address] | | | | | [address] | | | | | | [phone] | | | +--------+ + + + [...] + + + | Blood Pressure | - | - | | + + + + + | Pulse | - | - | | + + + + + | Temperature | - | - | | + + + + + | Respiratory Rate | - | - | | + + + + + | Oxygen Saturation | - | - | | + + + + + | Inhaled Oxygen | - | - | | | Concentration | | | | + + + + + | Weight | 78 kg (172 lb) | 10/07/2017 11:36 AM | | | | | PST | | + + + + + | Height | - | - | | + + + + + | Body Mass Index | 23.99 | 11/10/2016 3:07 PM | | | | | PST | | + + + + + documented in this encounter Plan of Treatment Not on filedocumented as of this encounter Procedures + +--------+ + + + | Procedure Name | Priori | Date/Time | Associated Diagnosis | Comments | | | ty | | | | + +--------+ + + + | EXTERNAL LAB: VNO | Routin | 09/15/2017 | | Results for this | | | e | | | procedure are in the | | | | | | results section. | + +--------+ + + + | CBC WITH | Routin | 09/15/2017 | | Results for this | | DIFFERENTIAL | e | | | procedure are in the | | | | | | results section. | + +--------+ + + + | COMPREHENSIVE | Routin | 09/15/2017 | | Results for this | | METABOLIC PANEL | e | | | procedure are in the | | | | | | results section. | + +--------+ + + + documented in this encounter Results Comprehensive Metabolic Panel (09/15/2017) + +---------+ + + + | Component | Value | Ref Range | Performed | Pathologist | | | | | At | Signature | + +---------+ + + + | Globulin | 3.7 | 1.3 - 4.9 g/dL | | | + +---------+ + + + | Albumin/Peggy | 1.1 | 1.0 - 2.4 Ratio | | | | bulin Ratio | | | | | + +---------+ + + + | Bun/Creatin | 17 | Ratio | | | | ine | | | | | + +---------+ + + + | Anion Gap | 15 | 5 - 20 mmol/L | | | + +---------+ + + + | CRP | 1.6 (A) | 0 - 0.5 mg/L | | | + +---------+ + + + + + | Specimen | + + | Blood | + + CBC with Differential (09/15/2017) + +--------+ + + + | Component | Value | Ref Range | Performed | Pathologist | | | | | At | Signature | + +--------+ + + + | MCH | 30.8 | 26.0 - 33.0 pg | | | + +--------+ + + + | MCHC | 34.2 | 31.0 - 37.0 % | | | + +--------+ + + + | Erythrocyte | 45 (A) | 0 - 20 mm/hr | | | | | | | | | | Sedimentati | | | | | | on Rate | | | | | + +--------+ + + + + + | Specimen | + + | Blood | + + External Lab: CBC (09/15/2017) + + + + + + | Component | Value | Ref Range | Performed | Pathologist | | | | | At | Signature | + + + + + + | WBC, | 13.64 (A) | 3.8 - 11 | EXTERNAL | | | External | | | LAB | | + + + + + + | HGB, | 15.6 | 13.2 - 17 | EXTERNAL | | | External | | | LAB | | + + + + + + | HCT, | 45.7 | 39 - 50 | EXTERNAL | | | External | | | LAB | | + + + + + + | PLT, | 491 (A) | 150 - 400 | EXTERNAL | | | External | | | LAB | | + + + + + + | Neutrophils | 53 | | EXTERNAL | | | %, | | | LAB | | | External | | | | | + + + + + + | Lymphocytes | 36 | | EXTERNAL | | | %, | | | LAB | | | External | | | | | + + + + + + | Monocytes | 7 | | EXTERNAL | | | %, External | | | LAB | | + + + + + + | Eosinophils | 4 | 0 - 5 | EXTERNAL | | | %, | | | LAB | | | External | | | | | + + + + + + | Neutrophils | 7.23 | 1.9 - 7.4 | EXTERNAL | | | , Absolute, | | | LAB | | | External | | | | | + + + + + + | Lymphocytes | 4.91 (A) | 1 - 3.9 | EXTERNAL | | | , Absolute, | | | LAB | | | External | | | | | + + + + + + | Monocytes, | 0.95 (A) | 0 - 0.8 | EXTERNAL | | | Absolute, | | | LAB | | | External | | | | | + + + + + + | Eosinophils | 0.55 (A) | 0 - 0.5 | EXTERNAL | | | , Absolute | | | LAB | | + + + + + + | RBC, | 5.06 | 4.2 - 5.7 | EXTERNAL | | | External | | | LAB | | + + + + + + | MCV, | 90 | 80 - 100 | EXTERNAL | | | External | | | LAB | | + + + + + + | RDW, | 47.7 | 37 - 53 | EXTERNAL | | | External | | | LAB | | + + + + + + + +---------+ + + | Performing | Address | City/State/Zipcode | Phone Number | | Organization | | | | + +---------+ + + | EXTERNAL LAB | | | | + +---------+ + + documented in this encounter Visit Diagnoses Not on filedocumented in this encounter"
--- OUTSIDE RECORDS SUMMARY | ~2020-01-30 | XMS | Encounter Summary ---
Demographics + + + | Address | [address] | | | [place] [address] | + + + | Home Phone | | + + + | Preferred Language | Unknown | + + + | Marital Status | | + + + | Rastafari Affiliation | [id number] | + + + | Race | Unknown | + + + | Ethnic Group | Unknown | + + + Author + + + | Author | [facility] | | | and [place] | + + + | Organization | [facility] | | | and [...] [place] | | | | | [address] | | + + + + + Care Team Providers + +------+ + | Care Molder Sweep Name | Role | Phone | + [...] | | | | | | | Infected | | | | | | | prosthetic | | | | | | | mesh of | | | | | | | abdominal | | | | | | | wall, | | | | | | | initial | | | | | | | encounter | | | | | | | ([facility] | | | | | | | Procedures | | | | | | | REPAIR | | | | | | | HERNIA | | | | | | | INCISIONAL | | | | | | | COMPLEX | | | +--------+--------+ + + + + Encounter Details +--------+---------+ + + + | Date | Type | Department | Care Team | Description | +--------+---------+ + + + | 09/06/ | Surgery | [facility] | Anival Stevenson MD | REPAIR HERNIA | | 2019 | | [facility] | [address] | INCISIONAL COMPLEX | | | | OPERATING ROOM [address] | [address] [place], [place] | | | | | [place] | [address] | | | | | [place], [place] | | | | | | [address] | | | | | | [phone] | | | +--------+---------+ + + + [...] + + + | Blood Pressure | 115/69 | 09/12/2019 10:59 AM | | | | | PST | | + + + + + | Pulse | 73 | 09/12/2019 10:59 AM | | | | | PST | | + + + + + | Temperature | 36.6 C (97.8 F) | 09/12/2019 10:59 AM | | | | | PST | | + + + + + | Respiratory Rate | 18 | 09/12/2019 10:59 AM | | | | | PST | | + + + + + | Oxygen Saturation | 97% | 09/12/2019 10:59 AM | | | | | PST | | + + + + + | Inhaled Oxygen | - | - | | | Concentration | | | | + + + + + | Weight | 99.8 kg (220 lb 0.3 | 09/06/2019 8:56 AM | | | | oz) | PST | | + + + + + | Height | 180.3 cm (5' 11") | 09/06/2019 8:56 AM | | | | | PST | | + + + + + | Body Mass Index | 30.69 | 09/06/2019 8:56 AM | | | | | PST | | + + + + + documented in this encounter Discharge Summaries Anival Stevenson MD - 09/12/2019 11:11 AM PST Physician Discharge Summary Patient ID: Reza Cespedes [id number] y.o. 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 Admission Condition: fair Discharged Condition: good Indication for Admission: Chronic infection involving foreign body of the abdominal wall re quiring surgery. Hospital Course: On the day of admission this patient was taken to the operating room and u nderwent an 9-hour surgery during which infected mesh was explanted. Any foreign material e ncountered was removed. Fistula is from small bowel into the mesh and hardware attaching th e mesh required resection of 2 segments of small intestine. Total length removed was less t burt 12 inches. This was out of a segment of ileum. The abdominal wall was then reconstruct ed with a biologic mesh. Postoperatively the challenge was pain management. Patient remains clinically stable throu ghout the procedure. Blood loss was estimated at 250 cc. Patient did not receive transfusi ons. Postoperatively he maintained good urine output. Anesthesia helped us out postoperati vely by placing an epidural which stayed in place for 3 days. Patient has a chronic pain sy ndrome which has left him with a routine narcotic regimen. Naturally this challenged postop erative pain management. Patient received the most benefit from Toradol. Once that was sta rted after the epidural was removed there was considerable improvement. His routine respons e to pain questions on a pain scale rated him between 7 and 10 however he was behaving in a way that suggested he his pain was much better controlled than this. On postop day 6 GAMALIEL lewis ins were removed. Periodic labs were obtained postoperatively which showed good renal funct ion and some postoperative anemia with a hemoglobin in the mid eights. Infectious disease w as informally consulted since they were involved with his care preoperatively. They did not feel that it was necessary to continue antibiotics as an outpatient. Patient will follow-u p with the general surgery office and be referred as needed to other services. Consults: none Significant Diagnostic Studies: labs: CBC and basic metabolic panel Treatments: surgery Discharge Exam: BP 115/69 | Pulse 73 | Temp 36.6 C (97.8 F) (Oral) | Resp 18 | Ht 1.803 m (5' 11") | Wt 99.8 kg (220 lb 0.3 oz) | SpO2 97% | BMI 30.69 kg/m General Appearance: Alert, cooperative, no distress, appears stated age Head: Normocephalic, without obvious abnormality, atraumatic Eyes: PERRL, conjunctiva/corneas clear, EOM's intact, fundi benign, both eyes Ears: Normal TM's and external ear canals, both ears Nose: Nares normal, septum midline, mucosa normal, no drainage or sinus tenderness Throat: Lips, mucosa, and tongue normal; teeth and gums normal Neck: Supple, symmetrical, trachea midline, no adenopathy; thyroid: No enlargement/tenderness/nodules; no carotid bruit or JVD Back: Symmetric, no curvature, ROM normal, no CVA tenderness Lungs: Clear to auscultation bilaterally, respirations unlabored Chest wall: No tenderness or deformity Heart: Regular rate and rhythm, S1 and S2 normal, no murmur, rub or gallop Abdomen: Soft, non-tender, bowel sounds active all four quadrants, no masses, no organomegaly. Wound(s) well approximated, nonreactive and dry. Genitalia: Normal male without lesion, discharge or tenderness Rectal: Normal tone, normal prostate, no masses or tenderness; guaiac negative stool Extremities: Extremities normal, atraumatic, no cyanosis or edema Pulses: 2+ and symmetric all extremities Skin: Skin color, texture, turgor normal, no rashes or lesions Lymph nodes: Cervical, supraclavicular, and axillary nodes normal Neurologic: CNII-XII intact. Normal strength, sensation and reflexes throughout Disposition: home Patient Instructions: Discharge Medications New Medications Details ketorolac 10 MG tablet Take 1 tablet by mouth every 6 hours as needed for Pain. aka: TORADOL Changed Medications Details polyethylene glycol packet Take 1 diluted packet by mouth Daily. What changed: when to take this reasons to take this aka: MIRALAX Unchanged Medications Details amLODIPine 10 MG tablet Take 10 mg by mouth Daily. aka: NORVASC BOOST Liqd Take 8 oz by mouth Daily as needed (for lack of appetite). CENTRUM SILVER PO Take 1 tablet by mouth Daily. clopidogrel 75 mg tablet Take 1 tablet by mouth Daily. aka: PLAVIX diclofenac 1% Gel Apply 4 g topically 4 times daily. aka: VOLTAREN docusate sodium 100 MG capsule Take 100 mg by mouth Twice daily as needed for Constipation. aka: COLACE ELIQUIS PO Take 5 mg by mouth 2 times daily. gabapentin 300 mg capsule Take 600 mg by mouth 2 times daily. aka: NEURONTIN LORazepam 2 MG tablet Take 2 mg by mouth every 6 hours as needed for Anxiety. aka: ATIVAN magnesium oxide 400 mg tablet Take 800 mg by mouth. Two to three times daily as needed for leg cramps aka: MAG-OX melatonin [address] 10 mg under the tongue nightly as needed for Insomnia. methocarbamol 500 mg tablet Take 1,000 mg by mouth 4 times daily as needed for Muscle spasms. aka: ROBAXIN omeprazole 20 mg capsule Take 1 capsule by mouth every morning (before breakfast). aka: priLOSEC ondansetron 4 mg disintegrating tablet Take 4 mg by mouth every 8 hours as needed for Nausea. aka: ZOFRAN ODT oxyCODONE 15 mg immediate release tablet Take 1-2 tablets by mouth every 6 hours as needed for Pain. Maximum daily dose: 16 tablets aka: ROXICODONE potassium chloride 10 MEQ ER tablet Take 1 tablet by mouth Daily. aka: KLOR-CON QUEtiapine 50 MG tablet Take 1 tablet by mouth 2 times daily. aka: SEROquel tamsulosin 0.4 mg Caps Take 0.8 mg by mouth Daily. aka: FLOMAX VENTOLIN HFA 90 mcg/puff inhaler Generic drug: albuterol Discontinued Medications ciprofloxacin 500 mg tablet aka: CIPRO metroNIDAZOLE 500 MG tablet aka: FLAGYL Activity: no heavy lifting for 8 weeks Diet: regular diet Wound Care: none needed Follow-up with me in 1 week. Signed: Anival Stevenson MD 09/12/2019 11:36 AM documented in this enco unter Discharge Instructions Instructions Anival Stevenson MD - 09/12/2019Dr. Stevenson Abdominal Surgery Post-operative Instructions Your wound dressing provides some protection from bacteria. Usually the wound has sealed i tself after 24 hours. With that in mind, you may remove the dressing 24-48 hours after your operation. An open wound is better than a wet or dirty dressing. If you feel more comforta ble with the wound covered, feel free to replace the original dressing with a fresh one. Be sure to wash your hands and keep all dressings as clean as possible. Some wounds are coated with a clear, waterproof coating called Dermabond. This product hel ps hold the wound together and acts as a dressing. It will peal off in 1-3 weeks. In most cases you may begin showering 48 hours after surgery. Exceptions may occur. Do no t immerse wound in a bath or hot tub until post-operative day 7. Some wounds are reinforced with tapes (Steri-strips) placed directly on the skin. These sh ould be left in place and allowed to come off on their own. Occasionally these are the only dressing used. If esteban were used to bring the skin together, they are usually taken out 5-7 days post op. Keep this in mind when scheduling your follow up office appointment. With abdominal surgery strict avoidance of lifting, pulling, and pushing may prevent occurr ence of a muscle defect, but I do want you to be active during your convalescence. Walking is probably the best form of exercise for the first 2 weeks postoperatively. The common lif ting restriction is nothing over 15 pounds." Some bruising may occur. It appears as a [id number]-[id number] area around the incision and indic ates blood within the layers of the skin near the operative area. It will go away on its ow n over a period of days to weeks. Sometimes bruising may intensify the level of itching one experiences as the wound heals. Unexpected problems can occur. These include: Infection: bacteria may find its way into the wound leading to fever, pain, swelling, warmt h, and possible drainage from the wound. This development should be reported to me through my office as soon as it is suspected. It is a rare development in elective surgery and gonzalez ruff responds quickly to antibiotics. The use of pain medication will speed your recovery by allowing you to be more active after surgery. Problems with prescribed medications should be brought to my attention because th ere are many alternative agents from which to choose. Narcotics do tend to cause constipati on, so take stool softeners as long as you are requiring prescription pain medication. You should make an appointment with my office for a wound check 7-10 days after your surger y. Call as soon as possible after your surgery to make the appointment and do not be afraid to call us if you have questions or suspect a problem. Our office number is [phone] documented in this encounter Medications at Time of Discharge + + + +---------+ + + | Medication | Sig | Dispensed | Refills | Start | End Date | | | | | | Date | | + + + +---------+ + + | amLODIPine | Take 10 mg by mouth | | 0 | | | | (NORVASC) 10 MG | Daily. | | | | | | tablet | | | | | | + + + +---------+ + + | Apixaban (ELIQUIS | Take 5 mg by mouth 2 | | 0 | | | | PO) | times daily. | | | | | + + + +---------+ + + | clopidogrel | Take 1 tablet by | 30 | 11 | 06/01/20 | | | (PLAVIX) 75 mg | mouth Daily. | tablet | | 19 | | | tablet | | | | | | + + + +---------+ + + | diclofenac | Apply 4 g topically | 1 Tube | 0 | 08/08/20 | | | (VOLTAREN) 1% GEL | 4 times daily. | | | 19 | | + + + +---------+ + + | docusate sodium | Take 100 mg by mouth | 30 | 0 | 08/08/20 | | | (COLACE) 100 MG | Twice daily as | capsule | | 19 | | | capsule | needed for | | | | | | | Constipation. | | | | | + + + +---------+ + + | gabapentin | Take 600 mg by mouth | | 0 | | | | (NEURONTIN) 300 mg | 2 times daily. | | | | | | capsule | | | | | | + + + +---------+ + + | ketorolac | Take 1 tablet by | 3 | 0 | 09/12/19 | | | (TORADOL) 10 MG | mouth every 6 hours | tablet | | 20 | | | tablet | as needed for Pain. | | | | | + + + +---------+ + + | LORazepam (ATIVAN) | Take 2 mg by mouth | | 0 | | | | 2 MG tablet | every 6 hours as | | | | | | | needed for Anxiety. | | | | | + + [...] + + + +---------+ + + | melatonin 10 mg SL | Place 10 mg under | | 0 | | | | tablet | the tongue nightly | | | | | | | as needed for | | | | | | | Insomnia. | | | | | + + [...] + + + +---------+ + + | omeprazole | Take 1 capsule by | 90 | 3 | 08/08/20 | | | (PRILOSEC) 20 mg | mouth every morning | capsule | | 19 | | | capsuleIndications: | (before breakfast). | | | | | | Gastroesophageal | | | | | | | reflux disease, | | | | | | | esophagitis presence | | | | | | | not specified | | | | | | + + + +---------+ + + | ondansetron | Take 4 mg by mouth | | 0 | | | | (ZOFRAN ODT) 4 mg | every 8 hours as | | | | | | disintegrating | needed for Nausea. | | | | | | tablet | | | | | | + + + +---------+ + + | oxyCODONE | Take 1-2 tablets by | 30 | 0 | 20 | | | (ROXICODONE) 15 mg | mouth every 6 hours | tablet | | 19 | | | immediate release | as needed for Pain. | | | | | | tablet | Maximum daily dose: | | | | | | | 16 tablets | | | | | + + + +---------+ + + | polyethylene | Take 1 diluted | 30 | 0 | 20 | | | glycol (MIRALAX) | packet by mouth | packet | | 19 | | | packet | Daily. | | | | | + + + +---------+ + + | potassium chloride | Take 1 tablet by | 30 | 0 | //20 | | | (KLOR-CON) 10 MEQ | mouth Daily. | tablet | | 19 | | | ER tablet | | | | | | + + + +---------+ + + | QUEtiapine | Take 1 tablet by | 60 | 0 | 08/08/20 | | | (SEROQUEL) 50 MG | mouth 2 times daily. | tablet | | 19 | | | tablet | | | | | | + + + +---------+ + + | tamsulosin | Take 0.8 mg by mouth | | 0 | | | | (FLOMAX) 0.4 mg CAPS | Daily. | | | | | + + + +---------+ + + | VENTOLIN HFA 108 | | | 0 | 06/01/20 | | | (90 Base) MCG/ACT | | | | 18 | | | inhaler | | | | | | + + + +---------+ + + documented as of this encounter Progress Anival Thomas MD - 09/12/2019 11:01 AM PST [facility]: General Surgery Progress Note Hospital Day: LOS:Hospital Day: 7 Post-Op Day: 6 Days Post-Op SUBJECTIVE Doing better after many hours of sleep. Pain is OK but always the first complaint. "Impro ving" though. OBJECTIVE Vital Signs: Vitals: 09/12/19 1059 BP: 115/69 Pulse: 73 Resp: 18 Temp: 36.6 C (97.8 F) Vitals: 09/11/19 2313 09/12/19 0323 09/12/19 0719 09/12/19 1059 BP: 117/72 127/76 125/72 115/69 Pulse: 87 78 76 73 Resp: 20 18 18 18 Temp: 36.4 C (97.6 F) 36.8 C (98.2 F) 36.6 C (97.9 F) 36.6 C (97.8 F) TempSrc: Oral Oral Oral Oral SpO2: 97% 98% 96% 97% Weight: Height: I/O last 3 completed shifts: In: 1860 [P.O.:1860] Out: 1810 [Urine:1750; Other:60] No intake/output data recorded. DATA Recent Labs 09/11/19 0540 WBC 8.72 HGB 8.4* HCT 24.7* PLT 407* CREA 0.8 NA 141 K 4.0 CL 110* ALBUMIN 2.2* BILI 0.2 ALKPHOS 80 AST 18 ALT 22 PHYSICAL afeb vss GAMALIEL are minimal and serous= removed today Dressing removed= Wound(s) well approximated, nonreactive and dry. ASSESSMENT I discussed abx management with ID provider. We both feel it is reasonable to leave patien t off abx at this time. We should DC the PICC line- more risk than benefit PLAN DC home, no drains and no PICC, no ABX Follow up with me in ~one week Anival Stevenson MD 09/12/2019 11:01 AM Anival Pelayo MD - 09/11/2019 10:48 AM PST [facility]: General Surgery Progress Note Hospital Day: LOS:Hospital Day: 6 Post-Op Day: 5 Days Post-Op SUBJECTIVE Sleeeeeeping! Finally getting quality sleep. Took PO well. +BM. Pain is adequately alex ged. OBJECTIVE Vital Signs: Vitals: 09/11/19 0800 BP: 120/67 Pulse: Resp: Temp: Vitals: 09/10/19 1930 09/11/19 0000 09/11/19 0356 09/11/19 0800 BP: 126/71 138/73 135/84 120/67 Pulse: 84 80 71 Resp: 20 18 16 Temp: 37.2 C (99 F) 37.1 C (98.7 F) 37 C (98.6 F) TempSrc: Oral Oral Oral SpO2: 98% 98% 96% Weight: Height: I/O last 3 completed shifts: In: 3011 [P.O.:1480; I.V.:1531] Out: 1785 [Urine:1700; Other:85] I/O this shift: In: - Out: 400 [Urine:400] DATA Recent Labs 09/11/19 0540 09/09/19 0551 WBC 8.72 10.82 HGB 8.4* 8.6* HCT 24.7* 25.7* PLT 407* 345 CREA 0.8 0.7 NA 141 138 K 4.0 4.3 CL 110* 109 ALBUMIN 2.2* -- BILI 0.2 -- ALKPHOS 80 -- AST 18 -- ALT 22 -- PHYSICAL afeb vss Good UOP Dressing is dry GAMALIEL's very low output- shoukd be ready for removal before DC Must walk stairs with PT Hb is low but stable ASSESSMENT Slowly improving PLAN PO meds Complete ABX today Resume PO blood thinners and anti platelets DC Lovenox Anival Stevenson MD 09/11/2019 10:48 AM Jenniffer Nevarez RN - 09/11/2019 8:34 AM PSTPt resting in bed and stable. at bedside.Electronica lly signed by Samaria Marshall RN at 09/11/2019 8:34 AM Samaria Nevarez RN - 01/2020 1:51 AM PSTEnd of shift chart checks complete. oya Arredondo RN - 0 6:46 PM PSTEnd of shift chart check complete. Anival Pelayo MD - 09/10/2019 11:17 AM PS T [facility]: General Surgery Progress Note Hospital Day: LOS:Hospital Day: 5 Post-Op Day: 4 Days Post-Op SUBJECTIVE Patient has been disoriented and threatening last night and night before last. This is com mon for him even at home. Family has been a huge help. His speech is garbled. He is not i n distress. OBJECTIVE Vital Signs: Vitals: 09/10/19 0925 BP: (!) 165/97 Pulse: 82 Resp: 22 Temp: 36.9 C (98.4 F) Vitals: 09/09/19 1917 09/09/19 2300 09/10/19 0541 09/10/19 0925 BP: 123/73 125/74 121/78 (!) 165/97 Pulse: 70 71 74 82 Resp: 17 18 18 22 Temp: 36.7 C (98.1 F) 36.9 C (98.4 F) 36.7 C (98 F) 36.9 C (98.4 F) TempSrc: Oral Oral Oral Axillary SpO2: 97% 97% 96% 98% Weight: Height: I/O last 3 completed shifts: In: 1414 [I.V.:1414] Out: 3445 [Urine:3275; Other:170] No intake/output data recorded. DATA Recent Labs 09/09/19 0551 WBC 10.82 HGB 8.6* HCT 25.7* PLT 345 CREA 0.7 NA 138 K 4.3 CL 109 PHYSICAL afeb vss GAMALIEL's are quite serous and deep drain is almost meeting criteria for removal Epidural is out Lane is out Dressing is dry ASSESSMENT There are no obvious meds that would contribute to congnition tells me his usual narcotic dose is higher His Neurontin is the same as at home. He didn't have his Seroquel restarted until last night. That was started so that the patie nt could sleep without night terrors. PLAN DC diflucan Decrease Oxycodone Stop heparin Start lovenox for DVT Px General diet Anival Stevenson MD 09/10/2019 11:17 AM Mo Ruiz RN - 09/09/2019 3:19 PM PSTCare Management Follow-Up Readmission Risk: Medium Current Discharge Plan Anticipated Discharge Disposition: home with outpatient services Expected DC Date: Barriers to Discharge: Steps Taken Toward Discharge: Called and notified [facility] about Pt IV ABX needs Next Steps: (P) d/c Pt home with ABX if needed Community Support Services Current Outpt/Agency/Support Groups: infusion therapy, home Community Agency Name: [facility] Other Resources: Discharge Transportation Transportation Needs: family or friend will provide Notes: Pt from home and was on IV ABX with [facility] home infusion. I called [facility] and Pt has c ompleted IV ABX, if Pt will need a continuation of IV ABX new prescriptions and orders will need to be written. Pt will discharge home once medically ready. CM will follow for any need s that arise. Electronically signed: Mo Ortiz RN 09/09/2019 3:19 PM April Elizondo MD - 09/09/2019 1:08 PM PSTFormfermin tting of this note might be different from the original. ANESTHESIA SERVICE ACUTE PAIN ROUNDS NOTE Patient Name: Reza Cespedes Patient : 1960 Patient Date of Anesthesia Post Op Service: 09/09/2019 Admitting Physician: Anival Stevenson MD Date of Surgery: 09/06/2019 Post Op Day Number: 3 Days Post-Op Surgeon: Surgeon(s): Anival Stevenson MD Patient status post: Procedure(s): REPAIR HERNIA INCISIONAL COMPLEX Procedure(s) (LRB): REPAIR HERNIA INCISIONAL COMPLEX (Anterior) Patient has been seen for post operative care for procedure and post op day as noted above. Patient does not appear in distress and is comfortable with good pain control. Pain is rat ed as 2/10 in last 24 hours. Continuous epidural catheter insertion site appears clean, dry and intact. Plan to disconti nue epidural catheter today per surgeon request. Patient is agreeable to this, but would lik e to trial turning off the infusion before removing the catheter. Vital signs: BP 136/88 | Pulse 79 | Temp 36.7 C (98 F) (Oral) | Resp 16 | Ht 1.803 m (5' 11") | Wt 99.8 kg (220 lb 0.3 oz) | SpO2 96% | BMI 30.69 kg/m Temp: 36.7 C (98 F) Pulse: 79 Resp: 16 BP: 136/88 SpO2:96 % Recent Labs Lab 09/09/19 0551 09/07/19 0605 WBC 10.82 14.21* RBC 2.89* 3.63* HGB 8.6* 10.8* HCT 25.7* 31.8* MCV 88.9 87.6 MCH 29.8 29.6 MCHC 33.5 33.8 PLT 345 380 MPV 8.1 8.0 Assesment & Plan: 1. Good pain control. 2. Epidural catheter infusion turned off at 9am. Returned to see patient at 13:00; pain lev el still satisfactory so epidural catheter removed at this time, tip intact. Nursing team aw are of epidural catheter removal. 3. Please contact Acute Pain Service with any questions or concerns. Note completed by April Lee MD Vitals: 09/09/19 0532 09/09/19 0534 09/09/19 0754 09/09/19 1115 BP: (!) 139/91 141/88 136/84 136/88 Pulse: 75 72 79 Resp: 19 12 16 Temp: 36.7 C (98 F) 36.7 C (98 F) 36.7 C (98 F) TempSrc: Oral Oral Oral SpO2: 96% 99% 96% Weight: Height: Anival Pelayo MD - 09/09/2019 10:23 AM PST [facility]: General Surgery Progress Note Hospital Day: LOS:Hospital Day: 4 Post-Op Day: 3 Days Post-Op SUBJECTIVE Passing gas. "Starving" Pain is much better with the toradol on board. OBJECTIVE Vital Signs: Vitals: 09/09/19 0754 BP: 136/84 Pulse: 72 Resp: 12 Temp: 36.7 C (98 F) Vitals: 09/08/19 2303 09/09/19 0532 09/09/19 0534 09/09/19 0754 BP: 119/63 (!) 139/91 141/88 136/84 Pulse: 85 75 72 Resp: 19 19 12 Temp: 36.6 C (97.8 F) 36.7 C (98 F) 36.7 C (98 F) TempSrc: Oral Oral Oral SpO2: 96% 96% 99% Weight: Height: I/O last 3 completed shifts: In: 4505 [P.O.:100; I.V.:4095.3; IV Piggyback:309.7] Out: 5550 [Urine:5350; Other:200] I/O this shift: In: - Out: 320 [Urine:300; Other:20] DATA Recent Labs 09/09/19 0551 09/07/19 0612 09/07/19 0605 WBC 10.82 -- 14.21* HGB 8.6* -- 10.8* HCT 25.7* -- 31.8* PLT 345 -- 380 CREA 0.7 1.0 -- NA 138 138 -- K 4.3 4.1 -- CL 109 107 -- PHYSICAL afeb vss GAMALIEL's are decreasing nicely Dressing is dry abd is flat, +BS Expect epidural out today Hb really drifted down: More than I expected ASSESSMENT Overall looking very good. Mobilizing fluids. Kidneys are happy. Gut Is starting to work PLAN Advance diet Stop IV fluid Increase ambulation Transition to oral meds tomorrow Anival Stevenson MD 09/09/2019 10:23 AM Oliva Cagle RN - 09/08/2019 3:44 PM PSTCare Management Initial Assessment Readmission Risk: Medium Status Prior to Admission or Illness Arrival From: (P) admitted as an inpatient Lives With: (P) spouse Living Arrangements: (P) house Caregiver For: (P) no one Patient s Caregiver: (P) spouse/significant other, homecare agency (specify)([facility] for h ome IVAB) Functional Status: ambulatory with use of cane, spouse assists with most ADLs/IADLs. Pt/sp ouse report frequent falls. Caregiving Concerns: Home Accessibility: bed and bath are not on the first floor, stairs to enter home, stairs within home Transportation Available: Yes Able to return to prior living: Yes Care Management Concerns Last discharge date: Readmission Within Last 30 Days: (P) no previous admission in last 30 days Is Readmission Diagnosis Related to or Same As: Previous Discharging Facility: Previous Discharge Destination From: PCP: Allison Fairchild NP Contact Information Family Contact Information: Name: (Tarik Araiza Phone: P) [phone] Pager: Fax: DC Needs Assessment Current Outpt/Agency/Support Groups: (P) infusion therapy, home Community Agency Name: (P) [facility] Anticipated Changes Related to Illness: (P) none Concerns to be Addressed: (P) discharge planning concerns Services Anticipated at Discharge: (P) infusion therapy, home Equipment Used at Home: (P) cane, straight, single point, 2 wheeled walker (FWW), 4 wheeled walker (4WW), wheelchair Equipment Needed after Discharge: (P) none Durable Medical Equipment Provider: Pharmacy/Medication Needs: (P) other (see comments)(possible home IVAB) Transportation Needs: (P) family or friend will provide Initial Plan Anticipated Discharge Disposition: (P) home with outpatient services, home Expected DC Date: Steps Taken Toward Discharge: Next Steps: Notes: Patient discharged on 07/29/2019 with [facility] for home IVAB. CM to follow for possible continuation of home IVAB as well as other discharge needs. Electronically signed: SIMA UGALDE RN 09/08/2019 3:45 PM April Elizondo MD - 09/08/2019 10:10 AM PSTF ormatting of this note might be different from the original. ANESTHESIA SERVICE ACUTE PAIN ROUNDS NOTE Patient Name: Reza Cespedes Patient : 1960 Patient Date of Anesthesia Post Op Service: 09/08/2019 Admitting Physician: Anival Stevenson MD Date of Surgery: 09/06/2019 Post Op Day Number: 2 Days Post-Op Surgeon: Surgeon(s): Anival Stevenson MD Patient status post: Procedure(s): REPAIR HERNIA INCISIONAL COMPLEX Procedure(s) (LRB): REPAIR HERNIA INCISIONAL COMPLEX (Anterior) Patient has been seen for post operative care for procedure and post op day as noted above. Mr. Cespedes has a history of chronic pain and is POD#2 following incisional hernia repair rigo garry with placement of epidural catheter post-operatively due to severe pain. Patient contin ues to report moderate to severe pain rated 7/10 currently. He is desirous to get up out of bed and requests to have Lane catheter and epidural catheter removed. Continuous block catheter insertion site appears clean, dry and intact. Vital signs: BP (!) 143/91 | Pulse 86 | Temp 36.4 C (97.5 F) (Oral) | Resp 18 | Ht 1.803 m (5' 11") | Wt 99.8 kg (220 lb 0.3 oz) | SpO2 96% | BMI 30.69 kg/m Temp: 36.4 C (97.5 F) Pulse: 86 Resp: 18 BP: (!) 143/91 SpO2:96 % Recent Labs Lab 09/07/19 0605 WBC 14.21* RBC 3.63* HGB 10.8* HCT 31.8* MCV 87.6 MCH 29.6 MCHC 33.8 PLT 380 MPV 8.0 Assesment & Plan: 1. Discussed options for removal of epidural catheter with patient and spouse. Agreed to tr ial a period of time with epidural catheter infusion turned off and disconnected to allow pa tient more mobility, with option to reconnect at the same rate if pain worsens significantly . If pain is tolerable with infusion off, may consider d/c of epidural catheter altogether. Nursing team and Dr. Alexia Stevenson in agreement with plan. 2. We will continue to follow until epidural catheter is discontinued. 3. Patient to be provided information on Acute Pain Service upon discharge. Note completed by April Lee MD Vitals: 09/07/19 1654 09/07/19 1906 09/08/19 0309 09/08/19 0732 BP: (!) 163/91 (!) 167/98 (!) 145/95 (!) 143/91 Pulse: 90 86 91 86 Resp: 20 18 18 Temp: 37 C (98.6 F) 36.5 C (97.7 F) 36.8 C (98.2 F) 36.4 C (97.5 F) TempSrc: Oral Oral Oral SpO2: 98% 98% 95% 96% Weight: Height: Anival Pelayo MD - 09/08/2019 8:17 AM PST [facility] Service: General Surgery Progress Note Hospital Day: LOS:Hospital Day: 3 Post-Op Day: 2 Days Post-Op SUBJECTIVE Seems narcotized. Slurred speech. C/O pain but very relaxed. No flatus. OBJECTIVE Vital Signs: Vitals: 09/08/19 0732 BP: (!) 143/91 Pulse: 86 Resp: 18 Temp: 36.4 C (97.5 F) Vitals: 09/07/19 1654 09/07/19 1906 09/08/19 0309 09/08/19 0732 BP: (!) 163/91 (!) 167/98 (!) 145/95 (!) 143/91 Pulse: 90 86 91 86 Resp: 18 18 Temp: 37 C (98.6 F) 36.5 C (97.7 F) 36.8 C (98.2 F) 36.4 C (97.5 F) TempSrc: Oral Oral Oral SpO2: 98% 98% 95% 96% Weight: Height: I/O last 3 completed shifts: In: 4946.8 [P.O.:100; I.V.:3018; IV Piggyback:1828.8] Out: 2785 [Urine:2400; Other:385] No intake/output data recorded. DATA Recent Labs 09/07/19 0612 09/07/19 0605 WBC -- 14.21* HGB -- 10.8* HCT -- 31.8* PLT -- 380 CREA 1.0 -- NA 138 -- K 4.1 -- CL 107 -- PHYSICAL afeb vss Dressing is dry GAMALIEL's are more serous and decreasing Very good UOP ASSESSMENT Clinically improving Wondering if the epidural is worth all the monitoring and catheters which keep him more imm obilized I'd like to use Toradol but will check with anesthesia PLAN Decrease iv fluids Clear liquid diet We're thinking about the epidural catheter - maybe time to DC soon Anival Stevenson MD 09/08/2019 8:17 AM Maria Luz Rocha RN - 09/08/2019 4:58 AM PSTPt c/o increased abd pain. Describes it as sharp and consistent. Pt has not passed gas after surgery. End of shift chart check complete. Maria Luz Baez RN 09/08/2018 0459 Anival Pelayo MD - 09/07/2019 12:46 PM PST [facility] Service: General Surgery Progress Note Hospital Day: LOS:Hospital Day: 2 Post-Op Day: 1 Day Post-Op SUBJECTIVE Pain is main issue. Patient is appropriate. tells me he is routinely taking 30 mg of Oxycodone three times a day for his chronic pain. Narcotic tolerance is high. OBJECTIVE Vital Signs: Vitals: 09/07/19 1123 BP: 146/86 Pulse: 105 Resp: 20 Temp: 37.1 C (98.8 F) Vitals: 09/07/19 0854 09/07/19 0954 09/07/19 1054 09/07/19 1123 BP: 131/77 128/85 139/90 146/86 Pulse: 92 94 88 105 Resp: 20 Temp: 37.1 C (98.8 F) TempSrc: Oral SpO2: 99% 99% 98% 99% Weight: Height: I/O last 3 completed shifts: In: 5876 [I.V.:5876] Out: 1620 [Urine:1170; Other:200; Blood:250] No intake/output data recorded. DATA Recent Labs 09/07/19 0612 09/07/19 0605 WBC -- 14.21* HGB -- 10.8* HCT -- 31.8* PLT -- 380 CREA 1.0 -- NA 138 -- K 4.1 -- CL 107 -- PHYSICAL afeb vss UOP adequate GAMALIEL is very watery but high volume Some anemia noted Creat is normal ASSESSMENT Epidural is in and that requires DC of Lovenox. We will use Heparin for DVT prophylaxis Resume PO Oxy per typical home use to maintain baseline narcotic levels PLAN Oxycodone 30mg BID PT consult Keep lane to prevent urinary retention from epidural Anival Stevenson MD 09/07/2019 12:46 PM eeChio MD - 09/07/2019 10:28 AM PST ANESTHESIA SERVICE ACUTE PAIN ROUNDS NOTE Patient Name: Reza Cespedes Patient : 1960 Patient Date of Anesthesia Post Op Service: 09/07/2019 Admitting Physician: Anival Stevenson MD Date of Surgery: 09/06/2019 Post Op Day Number: 1 Day Post-Op Surgeon: Surgeon(s): Anival Stevenson MD Patient status post: Procedure(s): REPAIR HERNIA INCISIONAL COMPLEX Procedure(s) (LRB): REPAIR HERNIA INCISIONAL COMPLEX (Anterior) Patient has been seen for post operative care for procedure and post op day as noted above. Patient does not appear in distress and is comfortable with good pain control. Pain is rat ed as 7-10 in last 24 hours, and currently at 5/10. reports pain is dramatically impro kannan compared to immediate postoperative period. He is receiving a combination of TEP 1/8% bu pivacaine @ 10 ml/h + iv opioids as incision is large and pt is a chronic pain pt. Continuous block catheter insertion site appears clean, dry and intact. Small amount of old blood underneath tegaderm. No fresh drainage. No erythema. Moving BLE - able to raise each leg off bed. Vital signs: BP 128/82 | Pulse 91 | Temp 36.6 C (97.9 F) (Oral) | Resp 22 | Ht 1.80 3 m (5' 11") | Wt 99.8 kg (220 lb 0.3 oz) | SpO2 99% | BMI 30.69 kg/m Temp: 36.6 C (97.9 F) Pulse: 91 Resp: 22 BP: 128/82 SpO2:99 % Recent Labs Lab 09/07/19 0605 WBC 14.21* RBC 3.63* HGB 10.8* HCT 31.8* MCV 87.6 MCH 29.6 MCHC 33.8 PLT 380 MPV 8.0 Lovenox was held this am. Catheter to be removed ~ POD2 if possible d/t risk of infection and pt need to restart anti coagulation. Assesment & Plan: 1. Good pain control. 2. No nausea or vomiting. 3. We will continue to follow until patient discharged. 4. Patient to be provided information on Acute Pain Service upon discharge. 5. Plan: Continous Catheter Infusion at 10 ml/hr. Note completed by Chio Washington MD Vitals: 09/07/19 0135 09/07/19 0220 09/07/19 0321 09/07/19 0732 BP: (!) 154/96 (!) 149/93 137/88 128/82 Pulse: 88 94 90 91 Resp: 20 22 Temp: 36.5 C (97.7 F) 36.6 C (97.9 F) TempSrc: Axillary Oral SpO2: 99% 99% 99% 99% Weight: Height: Lyndsay Chavez RN - 09/06/2019 9:10 PM PSTPt very drowsy, responds but mumbles, is hard to understand. Dr. Feroz jain called, will come to bedside to assess pt. Pt bed placed in trendelenburg.Electronicall y signed by Lyndsay Quintero RN at 09/06/2019 9:18 PM Aracelis Valle RN - 9 8:09 PM PSTAnesthesia at bedside with this RN. Pt with increased pain and anxiety. Pain medications not helping at this time. Patients notified of patients condition and sta tus. Dr Guevara, Anesthesia, at bedside starting an epidural to help with pain control. Pt s itting at bedside with 2 RNs and CNAs at this time. Dr Guevara went and talked to Teodora (rip ents ) about epidural. 8 :13 PM PSTdocumented in this encounter Plan of Treatment + +---------+--------+ + + | Name | Type | Priori | Associated Diagnoses | Date/Time | | | | ty | | | + +---------+--------+ + + | STORED IMAGE GENERAL | Imaging | Routin | | 09/06/2019 8:40 AM | | SURGERY | | e | | PST | + +---------+--------+ + + + +---------+--------+ + + | Name | Type | Priori | Associated Diagnoses | Order Schedule | | | | ty | | | + +---------+--------+ + + | STORED IMAGE GENERAL | Imaging | Routin | | One time imaging One | | SURGERY | | e | | time imaging for 1 | | | | | | Occurrences starting | | | | | | 09/06/2019 until | | | | | | 09/06/2019 | + +---------+--------+ + + documented as of this encounter Procedures + +--------+ + + + | Procedure Name | Priori | Date/Time | Associated Diagnosis | Comments | | | ty | | | | + +--------+ + + + | CBC NO DIFFERENTIAL | Routin | 09/11/2019 | | Results for this | | | e | 5:40 AM | | procedure are in the | | | | PST | | results section. | + +--------+ + + + | COMPREHENSIVE | Routin | 09/11/2019 | | Results for this | | METABOLIC PANEL | e | 5:40 AM | | procedure are in the | | | | PST | | results section. | + +--------+ + + + | POC GLUCOSE (NON | Routin | 09/10/2019 | | Results for this | | ORD) | e | 12:25 PM | | procedure are in the | | | | PST | | results section. | + +--------+ + + + | CBC NO DIFFERENTIAL | Routin | 09/09/2019 | | Results for this | | | e | 5:51 AM | | procedure are in the | | | | PST | | results section. | + +--------+ + + + | BASIC METABOLIC | Routin | 09/09/2019 | | Results for this | | PANEL | e | 5:51 AM | | procedure are in the | | | | PST | | results section. | + +--------+ + + + | BASIC METABOLIC | Routin | 09/07/2019 | | Results for this | | PANEL | e | 6:12 AM | | procedure are in the | | | | PST | | results section. | + +--------+ + + + | CBC NO DIFFERENTIAL | Routin | 09/07/2019 | | Results for this | | | e | 6:05 AM | | procedure are in the | | | | PST | | results section. | + +--------+ + + + | POC GLUCOSE (NON | Routin | 09/06/2019 | | Results for this | | ORD) | e | 3:14 PM | | procedure are in the | | | | PST | | results section. 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 | | | | | initial encounter | | | | | | (HCC) | | + +--------+ + + + | XR CHEST AP PORTABLE | STAT | 09/06/2019 | | Results for this | | | | 9:15 AM | | procedure are in the | | | | PST | | results section. 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 | | | | | PST | abdominal wall, | | | | | | initial encounter | | | | | | (HCC) | | + +--------+ + + + +---+--------+ | | | | | Specia | | | l | | | Needs | | | PCN | | | allerg | | | y | +---+--------+ documented in this encounter Results Comprehensive Metabolic Panel (09/11/2019 5:40 AM PST) + + + + + + | Component | Value | Ref Range | Performed | Pathologist | | | | | At | Signature | + + + + + + | Na | 141 | 135 - 145 | [facility] | | | | | mmol/L | LABORATORY | | + + + + + + | K | 4.0 | 3.5 - 4.9 | [facility] | | | | | mmol/L | LABORATORY | | + + + + + + | Cl | 110 (H) | 99 - 109 mmol/L | [facility] | | | | | | LABORATORY | | + + + + + + | CO2 | 26 | 23 - 32 mmol/L | [facility] | | | | | | LABORATORY | | + + + + + + | Anion Gap | 9 | 5 - 20 mmol/L | [facility] | | | | | | LABORATORY | | + + + + + + | Glucose | 87 | 65 - 99 mg/dL | [facility] | | | | | | LABORATORY | | + + + + + + | BUN | 14 | 8 - 25 mg/dL | [facility] | | | | | | LABORATORY | | + + + + + + | Creatinine | 0.8 | 0.70 - 1.30 | [facility] | | | | | mg/dL | LABORATORY | | + + + + + + | BUN/Creatin | 18 | | [facility] | | | ine Ratio | | | LABORATORY | | + + + + + + | Calcium | 8.5 | 8.5 - 10.5 | [facility] | | | | | mg/dL | LABORATORY | | + + + + + + | Protein, | 6.0 (L) | 6.3 - 8.2 g/dL | [facility] | | | Total | | | LABORATORY | | + + + + + + | Albumin | 2.2 (L) | 3.6 - 5.0 g/dL | [facility] | | | | | | LABORATORY | | + + + + + + | Globulin | 3.8 | 1.3 - 4.9 g/dL | [facility] | | | | | | LABORATORY | | + + + + + + | A/G Ratio | 0.6 (L) | 1.0 - 2.4 | [facility] | | | | | | LABORATORY | | + + + + + + | BILIRUBIN, | 0.2 | 0.1 - 1.5 mg/dL | [facility] | | | TOTAL | | | LABORATORY | | + + + + + + | ALK PHOS | 80 | 35 - 115 U/L | [facility] | | | | | | LABORATORY | | + + + + + + | AST | 18 | 10 - 45 U/L | [facility] | | | | | | LABORATORY | | + + + + + + | ALT | 22 | 10 - 65 U/L | [facility] | | | | | | LABORATORY | | + + + + + + | Estimated | >60Comment: GFR <60: | >60 | [facility] | | | GFR | CHRONIC KIDNEY DISEASE, | mL/min/1.73m2 | LABORATORY | | | | IF FOUND OVER A 3 MONTH | | | | | | PERIOD.GFR <15: KIDNEY | | | | | | FAILURE.FOR | | | | | | AMERICANS, MULTIPLY THE | | | | | | CALCULATED GFR BY | | | | | | 1.210.This eGFR is | | | | | | calculated using the | | | | | | MDRD IDMS traceable | | | | | | equation.Testing | | | | | | performed at [facility] [address], [address] | | | | | [facility], | | | | | | [place] [address] | | | | + + + + + + + + | Specimen | + + | Blood | + + + + + + + | Performing | Address | City/State/Zipcode | Phone Number | | Organization | | | | + + + + + | [facility] | [address] | [place] [address] | [phone] | + + + + + CBC no Differential (09/11/2019 5:40 AM PST) + + + + + + | Component | Value | Ref Range | Performed | Pathologist | | | | | At | Signature | + + + + + + | WBC | 8.72 | 3.80 - 11.00 | [facility] | | | | | K/uL | LABORATORY | | + + + + + + | RBC | 2.80 (L) | 4.20 - 5.70 | [facility] | | | | | M/uL | LABORATORY | | + + + + + + | Hemoglobin | 8.4 (L) | 13.2 - 17.0 | [facility] | | | | | g/dL | LABORATORY | | + + + + + + | Hematocrit | 24.7 (L) | 39.0 - 50.0 % | [facility] | | | | | | LABORATORY | | + + + + + + | MCV | 88.3 | 80.0 - 100.0 fl | [facility] | | | | | | LABORATORY | | + + + + + + | MCH | 30.1 | 27.0 - 34.0 pg | [facility] | | | | | | LABORATORY | | + + + + + + | MCHC | 34.1 | 32.0 - 35.5 | [facility] | | | | | g/dL | LABORATORY | | + + + + + + | RDW-SD | 50.8 | 37 - 53 fl | [facility] | | | | | | LABORATORY | | + + + + + + | Platelet | 407 (H) | 150 - 400 K/uL | [facility] | | | Count | | | LABORATORY | | + + + + + + | MPV | 7.8Comment: Testing | fl | [facility] | | | | performed at [facility], [address] | | LABORATORY | | | | [address], | | | | | | [place] [address] | | | | + + + + + + + + | Specimen | + + | Blood | + + + + + + + | Performing | Address | City/State/Zipcode | Phone Number | | Organization | | | | + + + + + | [facility] | [address] | [place] [address] | [phone] | + + + + + POC Glucose (09/10/2019 12:25 PM PST) + + + + + + | Component | Value | Ref Range | Performed | Pathologist | | | | | At | Signature | + + + + + + | Glucose, | 145 (H)Comment: Testing | 65 - 99 mg/dL | [facility] | | | POC | performed at [facility];[address] | LABORATORY | | | | [address];[place], [place] | | | | | | [address] | | | | + + + + + + + + | Specimen | + + | | + + + + + + + | Performing | Address | City/State/Zipcode | Phone Number | | Organization | | | | + + + + + | [facility] | [address] | [place] [address] | [phone] | + + + + + CBC no Differential (09/09/2019 5:51 AM PST) + + + + + + | Component | Value | Ref Range | Performed | Pathologist | | | | | At | Signature | + + + + + + | WBC | 10.82 | 3.80 - 11.00 | [facility] | | | | | K/uL | LABORATORY | | + + + + + + | RBC | 2.89 (L) | 4.20 - 5.70 | [facility] | | | | | M/uL | LABORATORY | | + + + + + + | Hemoglobin | 8.6 (L) | 13.2 - 17.0 | [facility] | | | | | g/dL | LABORATORY | | + + + + + + | Hematocrit | 25.7 (L) | 39.0 - 50.0 % | [facility] | | | | | | LABORATORY | | + + + + + + | MCV | 88.9 | 80.0 - 100.0 fl | [facility] | | | | | | LABORATORY | | + + + + + + | MCH | 29.8 | 27.0 - 34.0 pg | [facility] | | | | | | LABORATORY | | + + + + + + | MCHC | 33.5 | 32.0 - 35.5 | [facility] | | | | | g/dL | LABORATORY | | + + + + + + | RDW-SD | 51.6 | 37 - 53 fl | [facility] | | | | | | LABORATORY | | + + + + + + | Platelet | 345 | 150 - 400 K/uL | [facility] | | | Count | | | LABORATORY | | + + + + + + | MPV | 8.1Comment: Testing | fl | [facility] | | | | performed at [facility], [address] | | LABORATORY | | | | [address], | | | | | | [place] [address] | | | | + + + + + + + + | Specimen | + + | Blood | + + + + + + + | Performing | Address | City/State/Zipcode | Phone Number | | Organization | | | | + + + + + | [facility] | [address] | [place] [address] | [phone] | + + + + + Basic Metabolic Panel (09/09/2019 5:51 AM PST) + + + + + + | Component | Value | Ref Range | Performed | Pathologist | | | | | At | Signature | + + + + + + | Na | 138 | 135 - 145 | [facility] | | | | | mmol/L | LABORATORY | | + + + + + + | K | 4.3 | 3.5 - 4.9 | [facility] | | | | | mmol/L | LABORATORY | | + + + + + + | Cl | 109 | 99 - 109 mmol/L | [facility] | | | | | | LABORATORY | | + + + + + + | CO2 | 24 | 23 - 32 mmol/L | [facility] | | | | | | LABORATORY | | + + + + + + | Anion Gap | 9 | 5 - 20 mmol/L | [facility] | | | | | | LABORATORY | | + + + + + + | Glucose | 89 | 65 - 99 mg/dL | [facility] | | | | | | LABORATORY | | + + + + + + | BUN | 12 | 8 - 25 mg/dL | [facility] | | | | | | LABORATORY | | + + + + + + | Creatinine | 0.7 | 0.70 - 1.30 | [facility] | | | | | mg/dL | LABORATORY | | + + + + + + | BUN/Creatin | 17 | | [facility] | | | ine Ratio | | | LABORATORY | | + + + + + + | Calcium | 8.1 (L) | 8.5 - 10.5 | [facility] | | | | | mg/dL | LABORATORY | | + + + + + + | Estimated | >60Comment: GFR <60: | >60 | [facility] | | | GFR | CHRONIC KIDNEY DISEASE, | mL/min/1.73m2 | LABORATORY | | | | IF FOUND OVER A 3 MONTH | | | | | | PERIOD.GFR <15: KIDNEY | | | | | | FAILURE.FOR | | | | | | AMERICANS, MULTIPLY THE | | | | | | CALCULATED GFR BY | | | | | | 1.210.This eGFR is | | | | | | calculated using the | | | | | | MDRD IDMS traceable | | | | | | equation.Testing | | | | | | performed at [facility], [address] | | | | | | [address], | | | | | | [place] [address] | | | | + + + + + + + + | Specimen | + + | Blood | + + + + + + + | Performing | Address | City/State/Zipcode | Phone Number | | Organization | | | | + + + + + | [facility] | [address] | [place] [address] | [phone] | + + + + + Basic Metabolic Panel (09/07/2019 6:12 AM PST) + + + + + + | Component | Value | Ref Range | Performed | Pathologist | | | | | At | Signature | + + + + + + | Na | 138 | 135 - 145 | [facility] | | | | | mmol/L | LABORATORY | | + + + + + + | K | 4.1 | 3.5 - 4.9 | [facility] | | | | | mmol/L | LABORATORY | | + + + + + + | Cl | 107 | 99 - 109 mmol/L | [facility] | | | | | | LABORATORY | | + + + + + + | CO2 | 23 | 23 - 32 mmol/L | [facility] | | | | | | LABORATORY | | + + + + + + | Anion Gap | 12 | 5 - 20 mmol/L | [facility] | | | | | | LABORATORY | | + + + + + + | Glucose | 165 (H) | 65 - 99 mg/dL | [facility] | | | | | | LABORATORY | | + + + + + + | BUN | 16 | 8 - 25 mg/dL | [facility] | | | | | | LABORATORY | | + + + + + + | Creatinine | 1.0 | 0.70 - 1.30 | [facility] | | | | | mg/dL | LABORATORY | | + + + + + + | BUN/Creatin | 16 | | [facility] | | | ine Ratio | | | LABORATORY | | + + + + + + | Calcium | 8.1 (L) | 8.5 - 10.5 | [facility] | | | | | mg/dL | LABORATORY | | + + + + + + | Estimated | >60Comment: GFR <60: | >60 | [facility] | | | GFR | CHRONIC KIDNEY DISEASE, | mL/min/1.73m2 | LABORATORY | | | | IF FOUND OVER A 3 MONTH | | | | | | PERIOD.GFR <15: KIDNEY | | | | | | FAILURE.FOR | | | | | | AMERICANS, MULTIPLY THE | | | | | | CALCULATED GFR BY | | | | | | 1.210.This eGFR is | | | | | | calculated using the | | | | | | MDRD IDMS traceable | | | | | | equation.Testing | | | | | | performed at [facility], [address] | | | | | | [facility], | | | | | | [place], [place] [address] | | | | + + + + + + + + | Specimen | + + | Blood | + + + + + + + | Performing | Address | City/State/Zipcode | Phone Number | | Organization | | | | + + + + + | [facility] | [address] | [place] [address] | [phone] | + + + + + CBC no Differential (09/07/2019 6:05 AM PST) + + + + + + | Component | Value | Ref Range | Performed | Pathologist | | | | | At | Signature | + + + + + + | WBC | 14.21 (H) | 3.80 - 11.00 | [facility] | | | | | K/uL | LABORATORY | | + + + + + + | RBC | 3.63 (L) | 4.20 - 5.70 | [facility] | | | | | M/uL | LABORATORY | | + + + + + + | Hemoglobin | 10.8 (L) | 13.2 - 17.0 | [facility] | | | | | g/dL | LABORATORY | | + + + + + + | Hematocrit | 31.8 (L) | 39.0 - 50.0 % | [facility] | | | | | | LABORATORY | | + + + + + + | MCV | 87.6 | 80.0 - 100.0 fl | [facility] | | | | | | LABORATORY | | + + + + + + | MCH | 29.6 | 27.0 - 34.0 pg | [facility] | | | | | | LABORATORY | | + + + + + + | MCHC | 33.8 | 32.0 - 35.5 | [facility] | | | | | g/dL | LABORATORY | | + + + + + + | RDW-SD | 52.1 | 37 - 53 fl | [facility] | | | | | | LABORATORY | | + + + + + + | Platelet | 380 | 150 - 400 K/uL | [facility] | | | Count | | | LABORATORY | | + + + + + + | MPV | 8.0Comment: Testing | fl | [facility] | | | | performed at [facility], [address] | | LABORATORY | | | | [address], | | | | | | [place] [address] | | | | + + + + + + + + | Specimen | + + | Blood | + + + + + + + | Performing | Address | City/State/Zipcode | Phone Number | | Organization | | | | + + + + + | [facility] | [address] | [place] [address] | [phone] | + + + + + POC Glucose (09/06/2019 3:14 PM PST) + + + + + + | Component | Value | Ref Range | Performed | Pathologist | | | | | At | Signature | + + + + + + | Glucose, | 119 (H)Comment: Testing | 65 - 99 mg/dL | [facility] | | | POC | performed at [facility];[address] | LABORATORY | | | | [address];[place] | | | | | | [id number] | | | | + + + + + + + + | Specimen | + + | | + + + + + + + | Performing | Address | City/State/Zipcode | Phone Number | | Organization | | | | + + + + + | [facility] | [address] | [place] [address] | [phone] | + + + + + Surgical Pathology Exam (09/06/2019 11:12 AM PST) + + | Specimen | + + | Medical | | Device/Foreign Body | | - Mesh (physical | | object) | + + | Device specimen | | (specimen) - Mesh | | (physical object) | + + + + + | Narrative | Performed At | + + + | SPECIMEN(S): A | [facility] | | ABDOMINAL WALL MESHSPECIMEN(S): B SEGMENTS OF ILEUM SPECIMEN | INCYTE | | SOURCE:A. ABDOMINAL WALL MESHB. 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 Abdominal wall mesh, | | | excision:- Portion of colonic mucosa and fibroadipose tissue with | | | foreign body material, foreign body reaction, focal fibrinoid | | | necrosis, and abscess formation.- Negative for malignancy. B. | | | Segments of ileum, resection:- Small intestinal mucosa with focal | | | transmural perforation, foreign body material with foreign body | | | reaction, and abundant serosal adhesions. DDF:emb:C2NR MICROSCOPIC | | | EXAMINATION:Histologic sections of all submitted blocks are examined | | | by light microscopy. These findings, together with the gross | | | examination, support the pathologic diagnosis. GROSS DESCRIPTION:Two | | | specimens are received in two containers, labeled "RK." A. The | | | specimen, labeled "RK, abdominal wall mesh," is received in formalin | | | and consists of a 14.2 x 8.5 x 4.3 cm portion of brown-yellow | | | fibroadipose tissue within the mesh there is an abundantamount of | | | fecal material and a brock-white exudate. Trade [employer] Secretary sections are | | | submitted in cassette (A1). B. The specimen, labeled "RK, segments | | | of ileum," is received in formalin and consists of two disrupted | | | segments of small bowel measuring 5.6 cm in length by 4.6 cm in | | | circumference and 14.1 cm inlength by 4.6 cm circumference. The | | | first dictated segment includes a single 0.9 x 0.6 cm transmural | | | defect. The second dictated segment is convoluted with serosal | | | adhesions and includes multipletransmural defects. Both segments of | | | bowel have a brock-brown serosal surface with multiple adhesions. Both | | | margins are grossly viable. The mucosa throughout both segments is | | | brock and folded with no grossly visible lesions. Cassette summary:(B1) | | | Margins of first segment, en face(B2) Transmural | | | defect of first segment(B3) Margins of second dictated | | | segment, en face(B4-B6) Second segment of bowel with adhesions and | | | defectsAM (under the direct supervision of a pathologist) The Gross | | | Description was prepared using a voice recognition system. The | | | report was reviewed for accuracy; however, sound-alike word errors, | | | addition and/or deletions may occur. If there is anyquestion about | | | this report, please contact Client Services. PERFORMING LABORATORY:The | | | technical component was performed by [facility], [address] [place] [address] | | | [place] [address] (Commodity Trader: Mckayla Andino MD; CLIA# | | | [id number]). Professional interpretation was performed by[facility] | | | [facility], [address], | | | [place] [address] (Commodity Trader: Renaldo Love M.D.; CLIA#: | | | [id number]). Diagnostician: Arturo Foster | | | DOPathologistElectronically Signed 09/12/2019 | | | | | |PERFORMING LABORATORY: | | |The technical component was performed by [facility], [address] [place] [address] (Commodity Trader: Mckayla Andino MD; CLIA# [id number]). Professional interpretation was performed by | | |[facility], [address] [address] (Commodity Trader: Renaldo Love M.D.; CLIA#: [id number]). | | | | | |Diagnostician: Arturo Foster DO | | |Pathologist | | |Electronically Signed 09/12/2019 | | | | | | | | + + + + +---------+ + + | Performing | Address | City/State/Zipcode | Phone Number | | Organization | | | | + +---------+ + + | [facility] | | | | | [facility] | | | | + +---------+ + + XR Chest AP Portable (09/06/2019 9:15 AM PST) + + | Specimen | + + | | + + + + + | Impressions | Performed At | + + + | 1. Left PICC line tip could be retracted approximately 3-3.5 cm for | [facility] | | optimal positioning. Right greater than left lower lung zone | | | atelectasis. Signed by: Trevin Walker, Keyur Sign | | | Date/Time: 09/06/2019 9:22 AM | | + + + + + + | Narrative | Performed At | + + + | CHEST PORTABLE ONE VIEW CLINICAL INFORMATION: PICC line | [facility] | | placement. COMPARISON: XR CHEST PA AND LATERAL (07/29/2019); XR | | | CHEST 1 VIEW (06/10/2013); FINDINGS: Persistent strandy | | | atelectasis in the right mid lung zone. Heart size is normal. New | | | minimal strandy atelectasis in the lateral left costophrenic sulcus. | | | Left PICC line tip at the junction of the right atrium and | | | superior vena cava. This could be retracted approximately 3.5 cm | | | for optimal positioning. | | + + + + + | Procedure Note | + + | Ethan, Rad Results In - 09/06/2019 9:25 AM PST | | CHEST PORTABLE ONE VIEW | | | | CLINICAL INFORMATION: | | PICC line placement. | | | | COMPARISON: | | XR CHEST PA AND LATERAL (07/29/2019); XR CHEST 1 VIEW (06/10/2013); | | | | FINDINGS: | | Persistent strandy atelectasis in the right mid lung zone. Heart size | | is normal. New minimal strandy atelectasis in the lateral left | | costophrenic sulcus. Left PICC line tip at the junction of the right | | atrium and superior vena cava. This could be retracted approximately | | 3.5 cm for optimal positioning. | | | | IMPRESSION: | | 1. Left PICC line tip could be retracted approximately 3-3.5 cm for | | optimal positioning. Right greater than left lower lung zone | | atelectasis. | | | | | | | | | | Signed by: Trevin Walker Shawn | | Sign Date/Time: 09/06/2019 9:22 AM | + + + +---------+ + + | Performing | Address | City/State/Zipcode | Phone Number | | Organization | | | | + +---------+ + + | [facility] | | | | + +---------+ + + documented in this encounter Visit Diagnoses + + | Diagnosis | + + | Infected prosthetic mesh of abdominal wall, initial encounter (HCC) | + + documented in this encounter Admitting Diagnoses + + | Diagnosis | + + | Infected prosthetic mesh of abdominal wall, initial encounter (HCC) | + + documented in this encounter Administered Medications + +--------+ +--------+------+------+ | Medication Order | MAR | Action | Dose | Rate | Site | | | Action | Date | | | | + +--------+ +--------+------+------+ | acetaminophen (TYLENOL) tablet | Given | 09/07/19 | 650 mg | | | | 650 mg 650 mg, Oral, EVERY 4 | | 20 8:27 | | | | | HOURS PRN, Pain, Fever, Starting | | AM PST | | | | | 09/06/19 at 2230, | | | | | | | Post-op/Phase II | | | | | | + +--------+ +--------+------+------+ +-------+ +--------+---+---+ | Given | 09/07/19 | 650 mg | | | | | 20 12:54 | | | | | | AM PST | | | | +-------+ +--------+---+---+ +---+---+ | | | +---+---+ + +-------+ +-------+---+---+ | amLODIPine (NORVASC) tablet 10 | Given | 09/12/19 | 10 mg | | | | mg 10 mg, Oral, DAILY, First | | 20 8:11 | | | | | dose on Thu09/07/19 at 0900, | | AM PST | | | | | Post-op/Phase II | | | | | | + +-------+ +-------+---+---+ +-------+ +-------+---+---+ | Given | 09/11/19 | 10 mg | | | | | 20 8:00 | | | | | | AM PST | | | | +-------+ +-------+---+---+ | Given | 09/10/19 | 10 mg | | | | | 20 10:25 | | | | | | AM PST | | | | +-------+ +-------+---+---+ +---+---+ | | | +---+---+ + +-------+ +------+---+---+ | apixaban (ELIQUIS) tablet 5 mg | Given | 09/12/19 | 5 mg | | | | 5 mg, Oral, 2 TIMES DAILY, First | | 20 8:11 | | | | | dose (after last reorder) on Sun | | AM PST | | | | | 09/11/19 at 2000 | | | | | | + +-------+ +------+---+---+ +-------+ +------+---+---+ | Given | 09/11/19 | 5 mg | | | | | 20 9:20 | | | | | | PM PST | | | | +-------+ +------+---+---+ + +---+ | | | + +---+ | Benzocaine-Menthol (CEPACOL) | | | lozenge 1 lozenge 1 lozenge, | | | Buccal, EVERY 1 HOUR PRN, Sore | | | Throat, Starting 09/07/19 at | | | 0834, Maximum 12 lozenges per 24 | | | hours., | | + +---+ | | | + +---+ + +-------+ +--------+---+ + | bupivacaine 0.5%-EPINEPHrine | Given | 09/06/20 | 20 mLs | | Abdomina | | 1:200,000 (PF) injection PRN, | | 19 9:52 | | | l Tissue | | Starting 09/06/19 at 0952, | | AM PST | | | | | Intra-op | | | | | | + +-------+ +--------+---+ + + +---+ | | | + +---+ | diphenhydrAMINE (BENADRYL) | | | injection 12.5 mg 12.5 mg, | | | Intravenous, EVERY 4 HOURS PRN, | | | Itching, Starting 09/06/19 at | | | 2230, For itching, use the | | | following sequence if meds are | | | ordered: Give nalbuphine first. | | | If maximum dose given or | | | ineffective, give | | | diphenhydramine, Post-op/Phase II | | + +---+ | | | + +---+ + +-------+ +--------+---+---+ | gabapentin (NEURONTIN) capsule | Given | 09/12/19 | 600 mg | | | | 600 mg 600 mg, Oral, 2 TIMES | | 20 8:11 | | | | | DAILY, First dose (after last | | AM PST | | | | | modification) on 09/10/19 at | | | | | | | 2100, Post-op/Phase II | | | | | | + +-------+ +--------+---+---+ +-------+ +--------+---+---+ | Given | 09/11/19 | 600 mg | | | | | 20 9:20 | | | | | | PM PST | | | | +-------+ +--------+---+---+ | Given | 09/11/19 | 600 mg | | | | | 20 8:00 | | | | | | AM PST | | | | +-------+ +--------+---+---+ +---+---+ | | | +---+---+ + +-------+ +------+---+---+ | HYDROmorphone (DILAUDID) | Given | 09/12/19 | 1 mg | | | | injection 0.5-1.25 mg 0.5-1.25 | | 20 12:01 | | | | | mg, Intravenous, EVERY 2 HOURS | | AM PST | | | | | PRN, Pain, Starting Thu09/06/19 | | | | | | | at 2230, If oral route not an | | | | | | | option. Slow IV push, not faster | | | | | | | than 0.3mg/minute. First dose | | | | | | | must be lowest dose, titrate to | | | | | | | effective dose by repeat of | | | | | | | lowest dose every 30 minutes prn | | | | | | | pain, may not exceed maximum dose | | | | | | | ordered per interval. Use Pasero | | | | | | | Sedation Scale., Post-op/Phase | | | | | | | II | | | | | | + +-------+ +------+---+---+ +-------+ +------+---+---+ | Given | 09/11/19 | 1 mg | | | | | 20 5:54 | | | | | | PM PST | | | | +-------+ +------+---+---+ | Given | 09/11/19 | 1 mg | | | | | 20 1:39 | | | | | | AM PST | | | | +-------+ +------+---+---+ +---+---+ | | | +---+---+ + +-------+ +-------+---+---+ | ketorolac (TORADOL) tablet 10 | Given | 09/12/19 | 10 mg | | | | mg 10 mg, Oral, EVERY 6 HOURS (4 | | 20 11:03 | | | | | times per day), First dose on | | AM PST | | | | | 09/11/19 at 1200, For 8 doses | | | | | | + +-------+ +-------+---+---+ +-------+ +-------+---+---+ | Given | 09/12/19 | 10 mg | | | | | 20 6:32 | | | | | | AM PST | | | | +-------+ +-------+---+---+ | Given | 09/11/19 | 10 mg | | | | | 20 11:25 | | | | | | PM PST | | | | +-------+ +-------+---+---+ +---+---+ | | | +---+---+ + +-------+ +------+---+---+ | LORazepam (ATIVAN) tablet 2 mg | Given | 09/10/19 | 2 mg | | | | 2 mg, Oral, EVERY 6 HOURS PRN, | | 20 11:49 | | | | | Anxiety, Starting 09/06/19 at | | PM PST | | | | | 2230, Post-op/Phase II | | | | | | + +-------+ +------+---+---+ +-------+ +------+---+---+ | Given | 09/09/19 | 2 mg | | | | | 20 10:36 | | | | | | PM PST | | | | +-------+ +------+---+---+ | Given | 09/08/19 | 2 mg | | | | | 20 7:56 | | | | | | PM PST | | | | +-------+ +------+---+---+ +---+---+ | | | +---+---+ + +-------+ + +---+---+ | methocarbamol (ROBAXIN) tablet | Given | 09/11/19 | 1,000 mg | | | | 1,000 mg 1,000 mg, Oral, 4 TIMES | | 20 9:20 | | | | | DAILY PRN, Muscle spasms, | | PM PST | | | | | Starting Thu09/06/19 at 2230, | | | | | | | Post-op/Phase II | | | | | | + +-------+ + +---+---+ +-------+ + +---+---+ | Given | 09/11/19 | 1,000 mg | | | | | 20 5:08 | | | | | | PM PST | | | | +-------+ + +---+---+ | Given | 09/11/19 | 1,000 mg | | | | | 20 1:39 | | | | | | AM PST | | | | +-------+ + +---+---+ +---+---+ | | | +---+---+ + +-------+ +------+---+---+ | ondansetron (ZOFRAN) injection | Given | 09/07/19 | 4 mg | | | | 4 mg 4 mg, Intravenous, EVERY 6 | | 20 12:19 | | | | | HOURS PRN, Nausea, Vomiting, | | AM PST | | | | | Starting 09/06/19 at 2230, | | | | | | | First line agent Use PO option | | | | | | | unless NPO status or unable to | | | | | | | tolerate., Post-op/Phase II | | | | | | + +-------+ +------+---+---+ +---+---+ | | | +---+---+ + +-------+ +-------+---+---+ | oxyCODONE (ROXICODONE) tablet | Given | 09/12/19 | 15 mg | | | | 15 mg 15 mg, Oral, EVERY 8 HOURS | | 20 1:03 | | | | | (3 times per day), First dose | | PM PST | | | | | (after last modification) on Sat | | | | | | | 09/10/19 at 1400 | | | | | | + +-------+ +-------+---+---+ +-------+ +-------+---+---+ | Given | 09/12/19 | 15 mg | | | | | 20 6:32 | | | | | | AM PST | | | | +-------+ +-------+---+---+ | Given | 09/11/19 | 15 mg | | | | | 20 9:19 | | | | | | PM PST | | | | +-------+ +-------+---+---+ +---+---+ | | | +---+---+ + +-------+ +-------+---+---+ | QUEtiapine (SEROquel) tablet 50 | Given | 09/12/19 | 50 mg | | | | mg 50 mg, Oral, 2 TIMES DAILY, | | 20 8:11 | | | | | First dose on Thu09/09/19 at 2315 | | AM PST | | | | + +-------+ +-------+---+---+ +-------+ +-------+---+---+ | Given | 09/11/19 | 50 mg | | | | | 20 9:20 | | | | | | PM PST | | | | +-------+ +-------+---+---+ | Given | 09/11/19 | 50 mg | | | | | 20 8:00 | | | | | | AM PST | | | | +-------+ +-------+---+---+ +---+---+ | | | +---+---+ + +-------+ +--------+---+---+ | tamsulosin (FLOMAX) capsule 0.8 | Given | 09/12/19 | 0.8 mg | | | | mg 0.8 mg, Oral, DAILY, First | | 20 8:11 | | | | | dose on 09/11/19 at 1115, Do | | AM PST | | | | | not crush or chew capsule. If | | | | | | | unable to swallow, may open | | | | | | | capsule and sprinkle over acidic | | | | | | | soft food (applesauce, yogurt) or | | | | | | | in a small quantity of acidic | | | | | | | fruit juice (orange, grape). | | | | | | | Administer immediately (do not | | | | | | | allow granules to dissolve). Do | | | | | | | not administer via tube routes., | | | | | | + +-------+ +--------+---+---+ +-------+ +--------+---+---+ | Given | 09/11/19 | 0.8 mg | | | | | 20 11:14 | | | | | | AM PST | | | | +-------+ +--------+---+---+ +---+---+ | | | +---+---+ documented in this encounter
--- OUTSIDE RECORDS SUMMARY | ~2020-01-30 | XMS | Encounter Summary ---
Demographics + + + | Address | [address] | | | [place] [address] | + + + | Home Phone | | + + + | Preferred Language | Unknown | + + + | Marital Status | | + + + | Jew Affiliation | 1013 | + + + | Race | Unknown | + + + | Ethnic Group | Unknown | + + + Author + + + | Author | [facility] | | | and [place] | + + + | Organization | [facility] | | | and [...] [place] | | | | | [address] | | + + + + + Care Team Providers + +------+ + | Care Retail Agent Name | Role | Phone | + +------+ + | Allison Fairchild NP | PCP | | + +------+ + Reason for Visit + + + | Reason | Comments | + + + | Appointment | ERCP | + + + Encounter Details +--------+ + + + + | Date | Type | Department | Care Team | Description | +--------+ + + + + | 02/08/ | Telephone | [facility] | Dc Naik MD | Appointment (ERCP) | | 2018 | | GASTROENTEROLOGY | [address], [place] | | | | | [address] [place] | [address] [place], [place] | | | | | [address] [place], [place] | [address] | | | | | [address] | | | | | | [phone] | | | +--------+ + + + [...]
--- OUTSIDE RECORDS SUMMARY | ~2020-01-30 | XMS | Encounter Summary ---
Demographics + + + | Address | [address] | | | [place] [address] | + + + | Home Phone | | + + + | Preferred Language | Unknown | + + + | Marital Status | | + + + | Restorationist Affiliation | 1013 | + + + | Race | Unknown | + + + | Ethnic Group | Unknown | + + + Author + + + | Author | [facility] | | | and [place] | + + + | Organization | [facility] | | | and [place] [...] [place] | | | | | [address] | | + + + + + Care Team Providers + +------+ + | Care Water Quality Specialist Name | Role | Phone | + [...] | | | [place] | [place] | | | | | [address] | [address] | | | | | [phone] | [phone] | | | | | | | [...] | + +--------+ + + + | MAGNESIUM | Routin | 10/03/2013 | | Results for this | | | e | 4:05 PM | | procedure are in the | | | | PST | | results section. | + +--------+ + + + documented in this encounter Results Magnesium (10/03/2013 4:05 PM PST) + + + + + + | Component | Value | Ref Range | Performed | Pathologist | | | | | At | Signature | + + + + + + | Magnesium | 1.6 (L)Comment: Testing | 1.7 - 2.4 mg/dL | EXTERNAL | | | | performed at [facility] | | LAB | | | | Health;[address] | | | | | | [place] | | | | | | [address] | | | | + + + [...]
--- OUTSIDE RECORDS SUMMARY | ~2020-01-30 | XMS | Encounter Summary ---
Demographics + + + | Address | [address] | | | [place] [address] | + + + | Home Phone | | + + + | Preferred Language | Unknown | + + + | Marital Status | | + + + | Cheondoism Affiliation | 1013 | + + + | Race | Unknown | + + + | Ethnic Group | Unknown | + + + Author + + + | Author | [facility] | | | and [place] | + + + | Organization | [facility] | | | and [place] [...] [place] | | | | | [address] | | + + + + + Care Team Providers + +------+ + | Care Telecommunications Manager Name | Role | Phone | + +------+ + | Allison Fairchild NP | PCP | | + +------+ + Encounter Details +--------+ + + + + | Date | Type | Department | Care Team | Description | +--------+ + + + + | 05/31/ | Telephone | [facility] | Rich [place] MD | | | 2019 | | CENTER [facility] OP | [address] | | | | | [address] | [place], [place] | | | | | [place], [place] | [address] | | | | | [address] | [phone] | | | | | [phone] | | | +--------+ + + + [...]
--- OUTSIDE RECORDS SUMMARY | ~2020-01-30 | XMS | Encounter Summary ---
Demographics + + + | Address | [address] | | | [place] [address] | + + + | Home Phone | | + + + | Preferred Language | Unknown | + + + | Marital Status | | + + + | Sikhism Affiliation | 1013 | + + + | Race | Unknown | + + + | Ethnic Group | Unknown | + + + Author + + + | Author | [facility] | | | and [place] | + + + | Organization | [facility] | | | and [place] | + + + | Address | Unknown | + + + | Phone | Unavailable | + + + Support + + + + + | Name | Relationship | Address | Phone | + + + + + | Teodora Cespedes | ECON | [address] | | | | | [facility] [place] | | | | | [address] | | + + + + + Care Team Providers + +------+ + | Care Forestry Technician Name | Role | Phone | + +------+ + PCP | Unavailable | + +------+ + Encounter Details +--------+ + + + + | Date | Type | Department | Care Team | Description | +--------+ + + + + | 03/24/ | Hospital | [facility] | Conversion | | | 2013 | Encounter | [facility] | Transaction, | | | | | CLINIC [address] | Provider Unknown | | | | | [place], [place] | | | | | | [phone] | (Fax) | | | | | [phone] | | | +--------+ + + + [...] | + +--------+ + + + | MRSA NAAT | Timed | 03/24/2014 | | Results for this | | | | 2:11 PM | | procedure are in the | | | | PDT | | results section. | + +--------+ + + + | EXTERNAL LAB: CBC | Routin | 03/24/2014 | | Results for this | | | e | 1:26 PM | | procedure are in the | | | | PDT | | results section. | + +--------+ + + + | BASIC METABOLIC | Routin | 03/24/2014 | | Results for this | | PANEL | e | 1:26 PM | | procedure are in the | | | | PDT | | results section. | + +--------+ + + + | ECG 12 LEAD | Routin | 03/24/2014 | | Results for this | | | e | 1:20 PM | | procedure are in the | | | | PDT | | results section. | + +--------+ + + + documented in this encounter Results MRSA NAAT (03/24/2014 2:11 PM PDT) + + | Specimen | + + | | + + + + + | Narrative | Performed At | + + + | [facility](NOSE) | EXTERNAL LAB | | Testing performed at [facility];[address] [place] [address];[place] [address] MRSA PCR | | | NEGATIVE Testing performed at | | | [address];[place] [address] | | + + + + +---------+ + + | Performing | Address | City/State/Zipcode | Phone Number | | Organization | | | | + +---------+ + + | EXTERNAL LAB | | | | + +---------+ + + External Lab: CBC (03/24/2014 1:26 PM PDT) + + + + + + | Component | Value | Ref Range | Performed | Pathologist | | | | | At | Signature | + + + + + + | WBC | 13.6 (H)Comment: Testing | 3.8 - 11.0 K/uL | EXTERNAL | | | | performed at [facility], [address] | | LAB | | | | [address], | | | | | | [place] [address] | | | | + + + + + + | Red Blood | 4.58Comment: Testing | 4.20 - 5.70 | EXTERNAL | | | Cells | performed at [facility], [address] | M/uL | LAB | | | Counted | [address], | | | | | | [place] [address] | | | | + + + + + + | Hemoglobin | 14.2Comment: Testing | 13.2 - 17.0 | EXTERNAL | | | | performed at [facility], [address] | g/dL | LAB | | | | [address], | | | | | | [place] [address] | | | | + + + + + + | Hematocrit, | 43.3Comment: Testing | 39.0 - 50.0 % | EXTERNAL | | | POC | performed at [facility], [address] | | LAB | | | | [address], | | | | | | [place] [address] | | | | + + + + + + | MCV | 94.5Comment: Testing | 80.0 - 100.0 fl | EXTERNAL | | | | performed at [facility], [address] | | LAB | | | | [address], | | | | | | [place] [address] | | | | + + + + + + | MCH | 31.0Comment: Testing | 27.0 - 34.0 pg | EXTERNAL | | | | performed at [facility], [address] | | LAB | | | | [address], | | | | | | [place] [address] | | | | + + + + + + | MCHC | 32.9Comment: Testing | 32.0 - 35.5 | EXTERNAL | | | | performed at [facility], [address] | g/dL | LAB | | | | [address], | | | | | | [place] [address] | | | | + + + + + + | RDW-CV | 48.6Comment: Testing | 37 - 53 fl | EXTERNAL | | | | performed at [facility], [address] | | LAB | | | | [address], | | | | | | [place] [address] | | | | + + + + + + | Platelet | 478 (H)Comment: Testing | 150 - 400 K/uL | EXTERNAL | | | Count | performed at [facility], [address] | | LAB | | | Plasma | [address], | | | | | | [place] [address] | | | | + + + + + + | MPV | 8.4Comment: Testing | fl | EXTERNAL | | | | performed at [facility], [address] | | LAB | | | | [address], | | | | | | [place] [address] | | | | + + + + + + | Differentia | AUTOMATEDComment: | | EXTERNAL | | | l Type | Testing performed at | | LAB | | | | [facility], [address] | | | | | | [place] | | | | | | [address] | | | | + + + + + + | % Segmented | 69.5Comment: Testing | % | EXTERNAL | | | | performed at [facility], [address] | | LAB | | | Neutrophils | [address], | | | | | | [place] [address] | | | | + + + + + + | % | 22.3Comment: Testing | % | EXTERNAL | | | Lymphocytes | performed at [facility], [address] | | LAB | | | | [address], | | | | | | [place] [address] | | | | + + + + + + | % Monocytes | 7.2Comment: Testing | % | EXTERNAL | | | | performed at [facility], [address] | | LAB | | | | [address], | | | | | | [place] [address] | | | | + + + + + + | % | 0.6Comment: Testing | % | EXTERNAL | | | Eosinophils | performed at [facility], [address] | | LAB | | | | [address], | | | | | | [place] [address] | | | | + + + + + + | % Basophils | 0.4Comment: Testing | % | EXTERNAL | | | | performed at [facility], [address] | | LAB | | | | [address], | | | | | | [place] [address] | | | | + + + + + + | Absolute | 9.4 (H)Comment: Testing | 1.9 - 7.4 K/uL | EXTERNAL | | | Segmented | performed at [facility], [address] | | LAB | | | Neutrophils | [address], | | | | | | [place] [address] | | | | + + + + + + | Absolute | 3.0Comment: Testing | 1.0 - 3.9 K/uL | EXTERNAL | | | Lymphocytes | performed at [facility], [address] | | LAB | | | | [address], | | | | | | [place] [address] | | | | + + + + + + | Absolute | 1.0 (H)Comment: Testing | 0 - 0.8 K/uL | EXTERNAL | | | Monocytes | performed at [facility], [address] | | LAB | | | | [address], | | | | | | [place] [address] | | | | + + + + + + | Absolute | 0.1Comment: Testing | 0 - 0.5 K/uL | EXTERNAL | | | Eosinophils | performed at [facility], [address] | | LAB | | | | [address], | | | | | | [place] [address] | | | | + + + + + + | Absolute | 0.1Comment: Testing | 0 - 0.1 K/uL | EXTERNAL | | | Basophils | performed at [facility], [address] | | LAB | | | | [address], | | | | | | [place] [address] | | | | + + + + + + + + | Specimen | + + | Blood specimen | | (specimen) | + + + +---------+ + + | Performing | Address | City/State/Zipcode | Phone Number | | Organization | | | | + +---------+ + + | EXTERNAL LAB | | | | + +---------+ + + Basic Metabolic Panel (03/24/2014 1:26 PM PDT) + + + + + + | Component | Value | Ref Range | Performed | Pathologist | | | | | At | Signature | + + + + + + | Na | 138Comment: Testing | 135 - 143 | EXTERNAL | | | | performed at [facility], [address] | mmol/L | LAB | | | | [address], | | | | | | [place] [address] | | | | + + + + + + | K | 3.9Comment: Testing | 3.5 - 4.9 | EXTERNAL | | | | performed at [facility], [address] | mmol/L | LAB | | | | [address], | | | | | | [place] [address] | | | | + + + + + + | Cl | 106Comment: Testing | 99 - 109 mmol/L | EXTERNAL | | | | performed at [facility], [address] | | LAB | | | | [address], | | | | | | [place] [address] | | | | + + + + + + | CO2 | 27Comment: Testing | 23 - 32 mmol/L | EXTERNAL | | | | performed at [facility], [address] | | LAB | | | | [address], | | | | | | [place] [address] | | | | + + + + + + | Anion Gap | 9Comment: Testing | 5 - 20 mmol/L | EXTERNAL | | | | performed at [facility], [address] | | LAB | | | | [address], | | | | | | [place] [address] | | | | + + + + + + | Glucose, | 87Comment: Testing | 65 - 99 mg/dL | EXTERNAL | | | Fasting | performed at [facility], [address] | | LAB | | | | [address], | | | | | | [place] [address] | | | | + + + + + + | BUN | 19Comment: Testing | 8 - 25 mg/dL | EXTERNAL | | | | performed at [facility], [address] | | LAB | | | | [address], | | | | | | [place] [address] | | | | + + + + + + | Creatinine | 0.92Comment: Testing | 0.70 - 1.30 | EXTERNAL | | | | performed at [facility], [address] | mg/dL | LAB | | | | [place], | | | | | | [place] [address] | | | | + + + + + + | BUN/Creatin | 21Comment: Testing | | EXTERNAL | | | ine Ratio | performed at [facility], [address] | | LAB | | | | [address], | | | | | | [place] [address] | | | | + + + + + + | Calcium | 9.8Comment: Testing | 8.5 - 10.2 | EXTERNAL | | | | performed at [facility], [address] | mg/dL | LAB | | | | [address], | | | | | | [place] [address] | | | | + + + [...] | | | | | | at [facility], [address] | | | | | | [address] [place], | | | | | | [place] [address] | | | | + + + + + + + + | Specimen | + + | Blood specimen | | (specimen) | + + + +---------+ + + | Performing | Address | City/State/Zipcode | Phone Number | | Organization | | | | + +---------+ + + | EXTERNAL LAB | | | | + +---------+ + + ECG 12 lead (03/24/2014 1:20 PM PDT) + + + + + + | Component | Value | Ref Range | Performed | Pathologist | | | | | At | Signature | + + + + + + | DIAGNOSIS: | Normal sinus | | EXTERNAL | | | | rhythmNormal ECG | | LAB | | | | Confirmed by DELMA WAGNER | | | | | | ([id number]) on 03/25/2014 | | | | | | 11:41:24 AM | | | | + + + + + + + + | Specimen | + + | | + + + + + | Narrative | Performed At | + + + | Historically converted procedure from [facility] environment | EXTERNAL LAB | + + + + +---------+ + + | Performing | Address | City/State/Zipcode | Phone Number | | Organization | | | | + +---------+ + + | EXTERNAL LAB | | | | + +---------+ + + documented in this encounter Visit Diagnoses Not on filedocumented in this encounter"
--- OUTSIDE RECORDS SUMMARY | ~2020-01-30 | XMS | Encounter Summary ---
Demographics + + + | Address | [address] | | | [place] [address] | + + + | Home Phone | | + + + | Preferred Language | Unknown | + + + | Marital Status | | + + + | Mosque Affiliation | 1013 | + + + | Race | Unknown | + + + | Ethnic Group | Unknown | + + + Author + + + | Author | [facility] | | | and [place] | + + + | Organization | [facility] | | | and [...] [place] | | | | | [address] | | + + + + + Care Team Providers + +------+ + | Care Test Lead Name | Role | Phone | + +------+ + | Allison Fairchild NP | PCP | | + +------+ + Encounter Details +--------+ + + + + | Date | Type | Department | Care Team | Description | +--------+ + + + + | 10/08/ | Hospital | [facility] | Conversion | | | 2017 | Encounter | CENTER [facility] | Transaction, | | | | | CLINIC [address] | Provider Unknown | | | | | [place], [place] | [phone] | | | | | [address] | | | | | | [phone] | Jamie Bentley MD | | | | | | [address] [facility] [address] | | | | | | [address] [place], [place] | | | | | | [address] | | | | | | | [...] + + + | Blood Pressure | 103/73 | 10/08/2016 5:49 PM | | | | | PST | | + + + + + | Pulse | 112 | 10/08/2016 5:49 PM | | | | | PST | | + + + + + | Temperature | - | - | | + + + + + | Respiratory Rate | 16 | 10/08/2016 5:49 PM | | | | | PST | | + + + + + | Oxygen Saturation | - | - | | + + + + + | Inhaled Oxygen | - | - | | | Concentration | | | | + + + + + | Weight | 98.6 kg (217 lb 5.9 | 10/08/2016 5:49 PM | | | | oz) | PST | | + + + + + | Height | 180.3 cm (5' 11") | 10/08/2016 5:49 PM | | | | | PST | | + + + + + | Body Mass Index | 30.32 | 10/08/2016 5:49 PM | | | | | PST [...] + + + +---------+ + + | doxycycline | Take 100 mg by mouth | | 0 | | | | (VIBRAMYCIN) 100 mg | nightly. | | | | 8 | | capsule | | | | | | + + + +---------+ + + | fluconazole | Take 200 mg by mouth | | 0 | | | | (DIFLUCAN) 200 MG | Daily. | | | | 8 | | tablet | | | | [...] + + + +---------+ + + | mirtazapine | Take 30 mg by mouth | | 0 | | | | (REMERON) 30 MG | nightly. | | | | 8 | | tablet | | | | | | + + + +---------+ + + | omeprazole | Take 1 capsule by | 90 | 0 | 09/29/19 | | | (PRILOSEC) 20 mg | mouth every morning | capsule | | 17 | 7 | | capsule | (before breakfast). | | | | | + + [...] +---------+ + + | oxyCODONE | Take 5 mg by mouth | | 0 | | | | (ROXICODONE) 5 mg | every 4 hours as | | | | 8 | | tablet | needed for Pain | | | | | | | (every 4 hours as | | | | | | | needed). | | | | | + + + +---------+ + + | prazosin | Take 5 mg by mouth 2 | | 0 | | | | (MINIPRESS) 5 mg | times daily. | | | | 8 | | capsule | | | | | | + + + +---------+ + + documented as of this encounter Plan of Treatment Not on filedocumented as of this encounter Visit Diagnoses Not on filedocumented in this encounter
--- OUTSIDE RECORDS SUMMARY | ~2020-01-30 | XMS | Encounter Summary ---
Demographics + + + | Address | [address] | | | [place] [address] | + + + | Home Phone | | + + + | Preferred Language | Unknown | + + + | Marital Status | | + + + | Yazidi Affiliation | 1013 | + + + | Race | Unknown | + + + | Ethnic Group | Unknown | + + + Author + + + | Author | [facility] | | | and [place] | + + + | Organization | [facility] | | | and [place] [...] [place] | | | | | [address] | | + + + + + Care Team Providers + +------+ + | Care Rail Gang Supervisor Name | Role | Phone | + +------+ + | Allison Fairchild NP | PCP | | + +------+ + Reason for Visit +---------+ + | Reason | Comments | +---------+ + | Results | | +---------+ + Encounter Details +--------+ + + + + | Date | Type | Department | Care Team | Description | +--------+ + + + + | 09/23/ | Telephone | [facility] | Anival Stevenson MD | Results | | 2020 | | GENERAL SURGERY [address] | [address] | | | | | [address] | [address] [place], [place] | | | | | [place], [place] | [address] | | | | | [address] | | | | | | [phone] | | | +--------+ + + + [...]
--- OUTSIDE RECORDS SUMMARY | ~2020-01-30 | XMS | Encounter Summary ---
Demographics + + + | Address | [address] | | | [place] [address] | + + + | Home Phone | | + + + | Preferred Language | Unknown | + + + | Marital Status | | + + + | Moravian Affiliation | 1013 | + + + | Race | Unknown | + + + | Ethnic Group | Unknown | + + + Author + + + | Author | [facility] | | | and [place] | + + + | Organization | [facility] | | | and [...] [place] | | | | | [address] | | + + + + + Care Team Providers + +------+ + | Care Brine Well Operator Name | Role | Phone | + +------+ + | Allison Fairchild NP | PCP | | + +------+ + Encounter Details +--------+ + + + + | Date | Type | Department | Care Team | Description | +--------+ + + + + | 09/07/ | Anesthesia | [facility] | [place], | | | 2019 | [facility] | [address] | | | | | ANESTHESIA [address] | [place] [address] | | | | | [address] | [phone] | | | | | [place], [place] | | | | | | [address] | | | | | | [phone] | | | +--------+ + + + + Anesthesia Record + + + + + | Procedure Name | Responsible | Anesthesia Start | Anesthesia Stop Time | | | Anesthesiologist | Time | | + + + + + | [facility] | | | | | [facility] | | | | + + + + + + + | No events on file. | + + +------+ | Meds | +------+ + + + No medications | on file. | + + + + + | No agents on file. | + + + + | No blood administrations on file. | + + + + | No LDAs on file. | + + documented in this encounter Social History + + + +--------+ + [...]
--- OUTSIDE RECORDS SUMMARY | ~2020-01-30 | XMS | Encounter Summary ---
Demographics + + + | Address | [address] | | | [place] [address] | + + + | Home Phone | | + + + | Preferred Language | Unknown | + + + | Marital Status | | + + + | Methodist Affiliation | 1013 | + + + | Race | Unknown | + + + | Ethnic Group | Unknown | + + + Author + + + | Author | [facility] | | | and [place] | + + + | Organization | [facility] | | | and [place] [...] [place] | | | | | [address] | | + + + + + Care Team Providers + +------+ + | Care Coal Tower Operator Name | Role | Phone | [...] | | | [address] | [place] | | | | | [address] | [address] | | | | | [phone] | [phone] | | | | | | | [...] | + +--------+ + + + | SEDIMENTATION RATE, | Routin | 10/03/2013 | | Results for this | | AUTOMATED | e | 3:30 PM | | procedure are in the | | | | PST | | results section. | + +--------+ + + + documented in this encounter Results Sedimentation rate, automated (10/03/2013 3:30 PM PST) + + + + + + | Component | Value | Ref Range | Performed | Pathologist | | | | | At | Signature | + + + + + + | Sed Rate | 55 (H)Comment: Testing | 0 - 20 mm/Hr | EXTERNAL | | | | performed at [facility] | | LAB | | | | Health;[address] | | | | | | [address];[place] | | | | | | [address] | | | | + + + [...]
--- OUTSIDE RECORDS SUMMARY | ~2020-01-30 | XMS | Encounter Summary ---
Demographics + + + | Address | [address] | | | [place] [address] | + + + | Home Phone | | + + + | Preferred Language | Unknown | + + + | Marital Status | | + + + | Holiness Affiliation | 1013 | + + + | Race | Unknown | + + + | Ethnic Group | Unknown | + + + Author + + + | Author | [facility] | | | and [place]ana | + + + | Organization | [facility] | | | and [...] [place] | | | | | [address] | | + + + + + Care Team Providers + +------+ + | Care Pathology Technologist Name | Role | Phone | + +------+ + | Allison Fairchild NP | PCP | | + +------+ + Encounter Details +--------+ + + + + | Date | Type | Department | Care Team | Description | +--------+ + + + + | 10/05/ | Orders Only | [facility] | [address] Bus[address] MD | | | 2014 | | [address] | [address] | | | | | [place] | [place] | | | | | [address] | [address] | | | | | [phone] | [phone] | | | | | | | [...] +--------+ + + + | EXTERNAL LAB: [facility] | Routin | 10/05/2013 | | Results for this | | | e | 4:21 AM | | procedure are in the | | | | PST | | results section. | + +--------+ + + + | EXTERNAL LAB: [facility] | Routin | 10/05/2013 | | Results for this | | | e | 4:21 AM | | procedure are in the | | | | PST | | results section. | + +--------+ + + + documented in this encounter Results External Lab: [facility] (10/05/2013 4:21 AM PST) + + + + + + | Component | Value | Ref Range | Performed | Pathologist | | | | | At | Signature | + + + + + + | WBC | 9.9Comment: Testing | 3.8 - 11.0 K/uL | EXTERNAL | | | | performed at [facility] | | LAB | | | | [address] | | | | | | [place] | | | | | | [address] | | | | + + + + + + | Red Blood | 3.42 (L)Comment: Testing | 4.20 - 5.70 | EXTERNAL | | | Cells | performed at [facility] | M/uL | LAB | | | Counted | [address] | | | | | | [place] | | | | | | [address] | | | | + + + + + + | Hemoglobin | 9.6 (L)Comment: Testing | 13.2 - 17.0 | EXTERNAL | | | | performed at [facility] | g/dL | LAB | | | | [address] | | | | | | [place] | | | | | | [address] | | | | + + + + + + | Hematocrit, | 30.2 (L)Comment: Testing | 39.0 - 50.0 % | EXTERNAL | | | POC | performed at [facility] | | LAB | | | | [address] | | | | | | [place] | | | | | | [address] | | | | + + + + + + | MCV | 88.3Comment: Testing | 80.0 - 100.0 fl | EXTERNAL | | | | performed at [facility] | | LAB | | | | [address] | | | | | | [place] | | | | | | [address] | | | | + + + + + + | MCH | 28.0Comment: Testing | 27.0 - 34.0 pg | EXTERNAL | | | | performed at [facility] | | LAB | | | | [address] | | | | | | [place] | | | | | | [address] | | | | + + + + + + | MCHC | 31.6 (L)Comment: Testing | 32.0 - 35.5 | EXTERNAL | | | | performed at [facility] | g/dL | LAB | | | | Health;[address] | | | | | | [place] | | | | | | [address] | | | | + + + + + + | RDW-CV | 61.7 (H)Comment: Testing | 37 - 53 fl | EXTERNAL | | | | performed at [facility] | | LAB | | | | Health;[address] | | | | | | [place] | | | | | | [address] | | | | + + + + + + | Platelet | 415 (H)Comment: Testing | 150 - 400 K/uL | EXTERNAL | | | Count | performed at [facility] | | LAB | | | Plasma | [address] | | | | | | [place] | | | | | | [address] | | | | + + + + + + | MPV | 7.4Comment: Testing | fl | EXTERNAL | | | | performed at [facility] | | LAB | | | | [address] | | | | | | [place] | | | | | | [address] | | | | + + + + + + | Differentia | AUTOMATEDComment: | | EXTERNAL | | | l Type | Testing performed at | | LAB | | | | [facility];[address] | | | | | | [place] | | | | | | [address] | | | | + + + + + + | % Segmented | 62.7 | % | EXTERNAL | | | | | | LAB | | | Neutrophils | | | | | + + + + + + | % | 23.9 | % | EXTERNAL | | | Lymphocytes | | | LAB | | + + + + + + | % Monocytes | 8.7 | % | EXTERNAL | | | | | | LAB | | + + + + + + | % | 3.5 | % | EXTERNAL | | | Eosinophils | | | LAB | | + + + + + + | % Basophils | 1.2 | % | EXTERNAL | | | | | | LAB | | + + + + + + | Absolute | 6.2 | 1.9 - 7.4 K/uL | EXTERNAL | | | Segmented | | | LAB | | | Neutrophils | | | | | + + + + + + | Absolute | 2.4 | 1.0 - 3.9 K/uL | EXTERNAL | | | Lymphocytes | | | LAB | | + + + + + + | Absolute | 0.9 (H) | 0 - 0.8 K/uL | EXTERNAL | | | Monocytes | | | LAB | | + + + + + + | Absolute | 0.3 | 0 - 0.5 K/uL | EXTERNAL | | | Eosinophils | | | LAB | | + + + + + + | Absolute | 0.1 | 0 - 0.1 K/uL | EXTERNAL | | | Basophils | | | LAB | | + + + + + + | Platelet | ADEQUATE | | EXTERNAL | | | Estimate | | | LAB | | + + + + + + | RBC | 1+ | | EXTERNAL | | | Morphology | Comment: | | LAB | | | | HYPO | | | | | | 2+ | | | | | | ANISO | | | | | | NORMAL PLT MORPH | | | | | | | | | | + + + + + + + + | Specimen | + + | | + + + + + | Narrative | Performed At | + + + | Attending/Primary Provider: JALEESA MD, Felicia MCMAHAN , [place], | EXTERNAL LAB | + + + + +---------+ + + | Performing | Address | City/State/Zipcode | Phone Number | | Organization | | | | + +---------+ + + | EXTERNAL LAB | | | | + +---------+ + + External Lab: [facility] (10/05/2013 4:21 AM PST) + + + + + + | Component | Value | Ref Range | Performed | Pathologist | | | | | At | Signature | + + + + + + | WBC | 9.9Comment: Testing | 3.8 - 11.0 K/uL | EXTERNAL | | | | performed at [facility] | | LAB | | | | Health;[address] | | | | | | [place] | | | | | | [address] | | | | + + + + + + | Red Blood | 3.42 (L)Comment: Testing | 4.20 - 5.70 | EXTERNAL | | | Cells | performed at [facility] | M/uL | LAB | | | Counted | [address] | | | | | | [place] | | | | | | [address] | | | | + + + + + + | Hemoglobin | 9.6 (L)Comment: Testing | 13.2 - 17.0 | EXTERNAL | | | | performed at [facility] | g/dL | LAB | | | | Health;[address] | | | | | | [place] | | | | | | [address] | | | | + + + + + + | Hematocrit, | 30.2 (L)Comment: Testing | 39.0 - 50.0 % | EXTERNAL | | | POC | performed at [facility] | | LAB | | | | [address] | | | | | | [place] | | | | | | [address] | | | | + + + + + + | MCV | 88.3Comment: Testing | 80.0 - 100.0 fl | EXTERNAL | | | | performed at [facility] | | LAB | | | | Health;[address] | | | | | | [place] | | | | | | [address] | | | | + + + + + + | MCH | 28.0Comment: Testing | 27.0 - 34.0 pg | EXTERNAL | | | | performed at [facility] | | LAB | | | | Health;[address] | | | | | | [place] | | | | | | [address] | | | | + + + + + + | MCHC | 31.6 (L)Comment: Testing | 32.0 - 35.5 | EXTERNAL | | | | performed at [facility] | g/dL | LAB | | | | Health;[address] | | | | | | [place] | | | | | | [address] | | | | + + + + + + | RDW-CV | 61.7 (H)Comment: Testing | 37 - 53 fl | EXTERNAL | | | | performed at [facility] | | LAB | | | | [address] | | | | | | [place] | | | | | | [address] | | | | + + + + + + | Platelet | 415 (H)Comment: Testing | 150 - 400 K/uL | EXTERNAL | | | Count | performed at [facility] | | LAB | | | Plasma | [address] | | | | | | [place] | | | | | | [address] | | | | + + + + + + | MPV | 7.4Comment: Testing | fl | EXTERNAL | | | | performed at [facility] | | LAB | | | | [address] | | | | | | [place] | | | | | | [address] | | | | + + + + + + | Differentia | AUTOMATEDComment: | | EXTERNAL | | | l Type | Testing performed at | | LAB | | | | [facility];[address] | | | | | | [place] | | | | | | [address] | | | | + + + + + + | % Segmented | 62.7 | % | EXTERNAL | | | | | | LAB | | | Neutrophils | | | | | + + + + + + | % | 23.9 | % | EXTERNAL | | | Lymphocytes | | | LAB | | + + + + + + | % Monocytes | 8.7 | % | EXTERNAL | | | | | | LAB | | + + + + + + | % | 3.5 | % | EXTERNAL | | | Eosinophils | | | LAB | | + + + + + + | % Basophils | 1.2 | % | EXTERNAL | | | | | | LAB | | + + + + + + | Absolute | 6.2 | 1.9 - 7.4 K/uL | EXTERNAL | | | Segmented | | | LAB | | | Neutrophils | | | | | + + + + + + | Absolute | 2.4 | 1.0 - 3.9 K/uL | EXTERNAL | | | Lymphocytes | | | LAB | | + + + + + + | Absolute | 0.9 (H) | 0 - 0.8 K/uL | EXTERNAL | | | Monocytes | | | LAB | | + + + + + + | Absolute | 0.3 | 0 - 0.5 K/uL | EXTERNAL | | | Eosinophils | | | LAB | | + + + + + + | Absolute | 0.1 | 0 - 0.1 K/uL | EXTERNAL | | | Basophils | | | LAB | | + + + + + + + + | Specimen | + + | | + + + + + | Narrative | Performed At | + + + | Attending/Primary Provider: JALEESA MD, MARTIR, Duarte HREWIF, | EXTERNAL LAB | + + + + +---------+ + + | Performing | Address | City/State/Zipcode | Phone Number | | Organization | | | | + +---------+ + + | EXTERNAL LAB | | | | + +---------+ + + documented in this encounter Visit Diagnoses Not on filedocumented in this encounter"
--- OUTSIDE RECORDS SUMMARY | ~2020-01-30 | XMS | Encounter Summary ---
Demographics + + + | Address | [address] | | | [place] [address] | + + + | Home Phone | | + + + | Preferred Language | Unknown | + + + | Marital Status | | + + + | Orthodoxy Affiliation | 1013 | + + + | Race | Unknown | + + + | Ethnic Group | Unknown | + + + Author + + + | Author | [facility] | | | and [place] | + + + | Organization | [facility] | [...] [place] | | | | | [address] | | + + + + + Care Team Providers + +------+ + | Care Nitrator Operator Name | Role | Phone | [...] | | | [place] | [place] | | | | | [address] | [address] | | | | | [phone] | [phone] | | | | | | | [...] [place] | | | | | | [address] | | | | + + + [...]
--- OUTSIDE RECORDS SUMMARY | ~2020-01-30 | XMS | Encounter Summary ---
Demographics + + + | Address | [address] | | | [place] [address] | + + + | Home Phone | | + + + | Preferred Language | Unknown | + + + | Marital Status | | + + + | Church Affiliation | 1013 | + + + | Race | Unknown | + + + | Ethnic Group | Unknown | + + + Author + + + | Author | [facility] | | | and Alexana | + + + | Organization | [facility] | | | and Alexana [...] [place] | | | | | [address] | | + + + + + Care Team Providers + +------+ + | Care Electric Blanket Wirer Name | Role | Phone | + +------+ + | Allison Fairchild NP | PCP | | + +------+ + Reason for Referral Evaluate & Treat (Routine) + + + + + + + | Status | Reason | Specialty | Diagnoses / | Referred By | Referred To | | | | | Procedures | Contact | Contact | + + + + + + + | Pending | Specialty | Home Health | Diagnoses | Arian, | | | Review | Services | Services | | MD Marco Antonio | | | | Required | | Intra-abdomi | [address] | | | | | | [address]al abscess | [address] | | | | | | ([facility]) | [place], [place] | | | | | | | [address] | | | | | | | Phone: | | | | | | | [phone] | | | | | | | Fax: | | | | | | | [phone] | | + + + + + + + Reason for Visit + + + | Reason | Comments | + + + | Emesis | labs drawn yesterday, abnormal, was told he may need a CT scan, | | | hx of multiple bowel surgeries | + + + | Wound Infection | | | (Complicated) | | + + + | Abnormal Lab | | + + + Auth/Cert +--------+--------+ + + + + | Status | Reason | Specialty | Diagnoses / | Referred By | Referred To | | | | | Procedures | Contact | Contact | +--------+--------+ + + + + | | | | Diagnoses | | | | | | | | | | | | | | Intra-abdomi | | | | | | | nal abscess | | | | | | | (HCC) | | | +--------+--------+ + + + + Encounter Details +--------+ + + + + | Date | Type | Department | Care Team | Description | +--------+ + + + + | 07/29/ | Hospital | [facility] | [place], | Intra-abdominal | | 2019 - | Encounter | [facility] [address] | [address] | abscess (HCC) | | | | [address] | [address] | (Primary Dx); | | 08/09/ | | [place], [place] | [place] [address] | Abdominal wall | | 2019 | | [address] | [phone] | abscess; History of | | | | [phone] | | ventral hernia | | | | | [place], | repair; History of | | | | | MD Michael [address] | allergy to | | | | | [address] | antibiotic agent; | | | | | [place] [address] | Abdominal pain, | | | | | [phone] | generalized; HTN | | | | | | (hypertension), | | | | | Kai Dunne DO | benign; History of | | | | | [address] | hernia repair; | | | | | [place] [address] | Gastroesophageal | | | | | [phone] | reflux disease, | | | | | | esophagitis presence | | | | | Elvi Bragg MD | not specified | | | | | [address] | | | | | | [place] [address] | | | | | | [phone] | | | | | | | | | | | | Marco Antonio Don MD | | | | | | [address] | | | | | | [place] [address] | | | | | | [phone] | | | | | | | [...] + + + | Blood Pressure | 105/67 | 08/09/2019 11:51 AM | | | | | PST | | + + + + + | Pulse | 66 | 08/09/2019 11:51 AM | | | | | PST | | + + + + + | Temperature | 36.9 C (98.4 F) | 08/09/2019 11:51 AM | | | | | PST | | + + + + + | Respiratory Rate | 16 | 08/09/2019 11:51 AM | | | | | PST | | + + + + + | Oxygen Saturation | 94% | 08/09/2019 11:51 AM | | | | | PST | | + + + + + | Inhaled Oxygen | - | - | | | Concentration | | | | + + + + + | Weight | 97.1 kg (214 lb 1.1 | 08/07/2019 8:30 AM | | | | oz) | PST | | + + + + + | Height | 180.3 cm (5' 11") | 07/29/2019 10:00 PM | | | | | PST | | + + + + + | Body Mass Index | 29.86 | 07/29/2019 10:00 PM | | | | | PST | | + + + + + documented in this encounter Discharge Summaries Marco Antonio Don MD - 08/09/2019 8:57 AM PSTFormatting of this note might be different fro m the original. Patient: Reza Cespedes : 1960 Date of Admission: 07/29/2019 Date of Discharge: 08/09/2019 Treatment Team: Marshall Guevara MD; Acute Care Surgery; Mallorie Reyes Discharging Provider: Marco Antonio Don MD Discharge Diagnoses: Principal Problem: Abdominal wall abscess Active Problems: Abdominal pain, generalized History of traumatic brain injury HTN (hypertension), benign Procedures Performed: Chief Complaint: Emesis (labs drawn yesterday, abnormal, was told he may need a CT scan, hx of multiple radha l surgeries); Wound Infection (Complicated); and Abnormal Lab Hospital Course: Reza Cespedes is a 58 y.o. male with pmh of PAD s/p angioplasty stent placement in bere ac artery on chronic anticoagulation, TBI, cdiff colitis, HCV infection, anxiety, depression , multiple abdominal surgeries including multiple hernia repairs who was treated on 07/04/19 due to abdominal wall abscess s/p I and D and antibiotics who was admitted on 07/29/2019 wi th abdominal pain. CT abdomen/pelvis demonstrated complex fluid collection. Surgery and inte rventional radiology were consulted. He underwent IR guided drain placement. Infectious dise ase was consulted for antibiotics management. Culture demonstrated multiple organisms incldu ing E.coli, S gordoniii, prevotella. Patient was placed on ertapenem. Repeat CT abdomen/pelv is 08/02/19 demonstrated no c hange in the fluid collection. Surgery re-evaluated the patien t and recommended continue IV antibotics and outpatient follow up with Dr. Bentley. PICC line was placed and per ID the patient is to continue invanz for 4 weeks from 08/05/20. The patient was stable for discharge. He is to follow with Dr. Bentley as outpatient. Discharge Exam and Data: Vital Signs: BP 120/62 | Pulse 67 | Temp 36.7 C (98 F) (Oral) | Resp 16 | Ht 1.803 m (5' 11") | Wt 97.1 kg (214 lb 1.1 oz) | SpO2 97% | BMI 29.86 kg/m I&O Last 3 Shifts: 08/071 - 08/09 0700 In: 770 [P.O.:600; I.V.:150] Out: 915 [Urine:900] Physical Examination: Constitutional: Alert and oriented to person, place, and time. Appears well-developed and w ell-nourished. HEENT: Neck supple, no JVD, non icteric sclera. Cardiovascular: Normal rate, regular rhythm. Exam reveals no appreciated gallop or friction rub. No murmur heard. Pulmonary/Chest: Effort normal and breath sounds normal. No stridor. No respiratory distres s. no wheezes. no rales. exhibits no tenderness. Abdominal: Soft. Bowel sounds are normal. Drain in place. Dressing in place. Extremeties/Musculoskeletal: Normal range of motion.exhibits no tenderness. exhibits no ed neville. Neurological: No cranial nerve deficit. Exhibits normal muscle tone. Coordination normal . Skin: Skin is warm and dry. No rash noted. No erythema. No pallor. Psychiatric: Has a normal mood and affect given situation. Judgment normal for patient. Recent Labs Recent Labs Lab 08/09/1945308/08/196 08/07/19 0545 WBC 8.11 8.63 9.19 HGB 10.8* 10.5* 10.4* HCT 32.2* 31.0* 30.7* PLT 408* 393 421* Recent Labs Lab 08/09/1945308/08/1943508/07/19 0545 NA 139 139 139 K 4.2 3.7 3.8 CL 106 105 105 CO2 29 30 30 BUN 16 14 15 CALCIUM 8.6 8.4* 8.4* No results for input(s): INR in the last 168 hours. Microbiology Results (Last 14 Days by Collected Date with Culture/Sensitivity) Procedure Component Value Units Date/Time Culture, Body Fluid Sterile [[id number]] (Abnormal) (Susceptibility) Collected: 07/30/199 Order Status: Completed Lab Status: Final result Updated: 08/03/19 0638 Specimen: Body Fluid from Abscess Gram Stain Result -- 4+ WBC'S SEEN Gram Stain Result -- 1+ GRAM POSITIVE COCCI Gram Stain Result -- 3+ GRAM NEGATIVE RODS RESULT -- 2+ ESCHERICHIA COLI RESULT -- 2+ MIXED GRAM POSITIVE DEEPA RESULT -- 2+ MIXED ANAEROBIC DEEPA RESULT Testing performed at [facility], [address] [place] [address] Susceptibility Escherichia coli (1) Antibiotic Interpretation Microscan Method Status Ampicillin Sensitive SUSCEPTIBLE ANDREW Final Ampicillin + Sulbactam Sensitive SUSCEPTIBLE ANDREW Final Cefepime Sensitive SUSCEPTIBLE ANDREW Final Cefoxitin Sensitive SUSCEPTIBLE ANDREW Final Ceftazidime Sensitive SUSCEPTIBLE ANDREW Final Ceftriaxone Sensitive SUSCEPTIBLE ANDREW Final Ciprofloxacin Sensitive SUSCEPTIBLE ANDREW Final Gentamicin Sensitive SUSCEPTIBLE ANDREW Final Levofloxacin Sensitive SUSCEPTIBLE ANDREW Final Tobramycin Sensitive SUSCEPTIBLE ANDREW Final Trimethoprim + Sulfamethoxazole Sensitive SUSCEPTIBLE ANDREW Final Testing performed at [facility], [address] [place] [address]55 MRSA NAAT [[id number]] Collected: 07/29/192256 Order Status: Completed Lab Status: Final result Updated: 07/30/193 Specimen: Tissue from Nares SOURCE: NARES(NOSE) Result NEGATIVE Comment: Testing performed at [facility];[address] [place] [address] Culture, Blood [[id number]] Collected: 07/29/192222 Order Status: Completed Lab Status: Final result Updated: 08/05/19605 Specimen: Peripheral Blood Special Requests RIGHT HAND Special Requests Testing performed at [facility];[address] [place] [address] RESULT NO GROWTH 6 DAYS RESULT Testing performed at [facility], [address] [place] [address] Comment: Testing performed at [facility], [address] [place] [address] Culture, Blood [[id number]] Collected: 07/29/192215 Order Status: Completed Lab Status: Final result Updated: 08/05/19605 Specimen: Peripheral Blood Special Requests LEFT AC Special Requests Testing performed at [facility];[address] [place] [address]98[address] RESULT NO GROWTH 6 DAYS RESULT Testing performed at [facility], [address] [place] [address] Comment: Testing performed at [facility], [address] [place] [address]45 Culture, Urine [[id number]] Collected: 07/29/192038 Order Status: Completed Lab Status: Final result Updated: 07/31/19 1140 Specimen: Urine, Clean Catch RESULT NO GROWTH RESULT Testing performed at [facility], [address] [place] [address] Comment: Testing performed at [facility], [address] [place] [address] 9[address]08 Culture, Blood [[id number]] Collected: 07/29/192037 Order Status: Completed Lab Status: Final result Updated: 08/05/19605 Specimen: Peripheral Blood Special Requests LAC Special Requests Testing performed at [facility];[address] [place] [address] RESULT NO GROWTH 6 DAYS RESULT Testing performed at [facility], [address] [place] [address] Comment: Testing performed at [facility], [address] [place] [address]239 Culture, Blood [[id number]] Collected: 07/29/19 1910 Order Status: Canceled Lab Status: No result Specimen: Peripheral Blood Influenza A and B RNA, NAAT [[id number]] Collected: 07/29/19 1656 Order Status: Completed Lab Status: Final result Updated: 07/29/19 1724 Influenza A NEGATIVE Influenza B NEGATIVE Comment: Testing performed by [employer] Testing performed at [facility];[address] [place] [address];[place] [address] Flu Swab Collection [[id number]] Collected: 07/29/19 1630 Order Status: Completed Lab Status: Final result Updated: 07/29/19 1637 Specimen: Tissue from Nasopharynx Collection SPECIMEN RECEIVED IN LAB Comment: Testing performed at [facility];[address] [place] [address] Recent Radiology Results Recent Results (from the past 360 hour(s)) XR Chest PA and Lateral Narrative CHEST PA AND LATERAL CLINICAL INFORMATION: Cough and congestion. COMPARISON: CTA CHEST ABDOMEN PELVIS W CONTRAST (02/21/2019); SUPA C ARM GUIDANCE (02/05/2016); SUPA C ARM GUIDANCE (01/07/2016); FINDINGS: Heart size normal. No consolidation, pleural effusion, or pneumothorax. Minimal perihilar and basilar linear atelectasis. Osseous structures unremarkable. Impression No significant abnormality. Signed by: Trevin Emery Gregory Sign Date/Time: 07/29/2019 4:[address] Abdomen Pelvis w Contrast Narrative CT ABDOMEN AND PELVIS WITH CONTRAST CLINICAL INFORMATION: Abdominal pain left side. COMPARISON: CT ABDOMEN W CONTRAST (07/04/2019); CTA CHEST ABDOMEN PELVIS W CONTRAST (02/21/2019); CT ABDOMEN PELVIS W CONTRAST (01/21/2018); CT ABDOMEN PELVIS W CONTRAST (03/04/2016); PROCEDURE: Axial images through the abdomen and pelvis after the administration of 100ml omnipaque 350 intravenous contrast. Multiplanar reconstructions. At least one of the following CT dose optimization techniques were used: Automated exposure control; Adjustment of mA and/or kV according to patient size; Use of iterative reconstruction technique. FINDINGS: LUNG BASES: No significant pulmonary abnormality. No pleural effusion or pneumothorax. ABDOMEN Liver and Biliary: Liver unremarkable. Cholecystectomy. Pancreas, Spleen and Adrenals: 3 mm calcification in the uncinate process of the pancreas , stable. This appears inferior/medial to the CBD, probably due to chronic pancreatitis. I doubt distal CBD stone. CBD 7 mm, stable. Pancreas otherwise unremarkable. Spleen, adrenals unremarkable. Kidneys: 12 mm lateral mid left renal cyst with smaller inferior pole cystic lesion, unchanged perhaps due to smaller cyst, too small to characterize. Scarring lateral upper pole of the right kidney again noted. ABDOMEN AND PELVIS Bowel: No small bowel or colonic dilation or adjacent inflammation. No appendiceal dilation or inflammation. Vessels: Right common/proximal external iliac stent. No other arterial abnormalities. No aneurysm. Patent portal vein. Lymph Nodes: Lymph node medial to the pancreatic head measuring 1.4 x 3.0 cm, stable dating back 03/04/2016, benign. No other evidence of adenopathy. Peritoneum and Retroperitoneum: No free air. No ascites. PELVIS Genitourinary: Distal ureters and bladder appear normal. No pelvic masses. BODY WALL Soft Tissues: Abdominal wall hernia repair, with complex debris and air superficial to the mesh and deep to the abdominal wall measuring 12.3 cm transverse by 2.4 cm AP by 7.6 cm superoinferior dimension, slightly increased in size. This raises concern for abscess. Infiltration of the abdominal wall in this region. No fistulization to the skin is seen presently. Bones: Old healed right superior and inferior pubic rami/pubic symphyseal fractures, with plate and screw fixation of the right iliac wing extending through the SI joint, unchanged. Fusion right SI joint. Chronic compression of the central L4 vertebral body with preserved periphery. Spondylotic changes of the spine. No listhesis. Impression 1. Complex fluid and air collection deep to the abdominal wall but superficial to the mesh repair in the midline abdomen measuring 12.3 x 2.4 by 7.6 cm. While this may be due to hematoma, abscess must be considered. No fistula to the skin surface is seen presently. 2. Probable chronic pancreatitis, cholecystectomy, right renal scarring, left renal cysts, chronic right pelvic fractures with repair, chronic L4 central superior endplate compression deformity. Signed by: Trevin Walker Shawn Sign Date/Time: 07/29/2019 6:[address] Abdomen Pelvis wo Contrast Narrative CT ABDOMEN AND PELVIS WITHOUT CONTRAST CLINICAL INFORMATION: Abdominal pain, Abdominal abscess COMPARISON: CT GUIDED DRAIN ABSCESS PERITONEAL (07/30/2019); CT ABDOMEN PELVIS W CONTRAST (07/29/2019) PROCEDURE: Axial images through the abdomen and pelvis. Multiplanar reconstructions. At least one of the following CT dose optimization techniques were used: Automated exposure control; Adjustment of mA and/or kV according to patient size; Use of iterative reconstruction technique. FINDINGS: Lack of intravenous contrast typically diminishes sensitivity for assessment of solid organs and vascular structures. LUNG BASES: Trace bilateral pleural effusions, with associated small amount of atelectasis. ABDOMEN Solid organ evaluation suboptimal without contrast. Liver and Biliary: Liver appears unremarkable. Patient is post cholecystectomy. Pancreas, Spleen and Adrenals: Appear unremarkable. Kidneys: Appear unremarkable. ABDOMEN AND PELVIS Bowel: Appendix is seen on series 2, image 114 and appears unremarkable. No bowel obstruction or ileus seen. Vessels: Mild atherosclerosis. Aorta does not appear aneurysmal Lymph Nodes: No enlarged lymph nodes seen Peritoneum and Retroperitoneum: Interval placement of a percutaneous drainage catheter. Previously noted fluid collection appears to be essentially unchanged in size, measuring approximately 12.3 cm x 2.4 cm in size. PELVIS Genitourinary: Urinary bladder is mildly distended BODY WALL Soft Tissues: No significant abnormality appreciated. Bones: No acute or destructive osseous process seen. Impression Interval placement of a percutaneous drainage catheter. Previously noted fluid collection appears to be essentially unchanged in size, measuring approximately 12.3 cm x 2.4 cm in size. Signed by: Trevin Ch, Dewayne Sign Date/Time: 08/02/2019 8:06 PM MRI Lumbar Spine wo Contrast Narrative MRI LUMBAR SPINE WITHOUT CONTRAST CLINICAL INFORMATION: Lumbosacral osteoarthritis. COMPARISON: MRI LUMBAR SPINE WO CONTRAST (12/10/2017); PROCEDURE: Sagittal T2, axial T2, sagittal T1, axial T1, sagittal STIR sequences. FINDINGS: Alignment: Minimal grade 1 anterolisthesis of L5 on S1. Vertebrae and vertebral marrow signal: Mild L4 superior endplate height loss with chronic appearance. No evidence of a recent fracture. Conus and imaged portions of the caudal cord: Normal. Lumbar disc levels: L1-2: The disc is preserved. No disc herniation or significant disc bulge. The facet joints are normal. No significant spinal canal stenosis or neural foraminal stenosis. L2-3: The disc is preserved. Mild disc bulge with posterior high-intensity zone. Mild facet arthropathy. Mild spinal canal stenosis. Minimal bilateral neural foraminal stenosis. L3-4: The disc is dehydrated with minimal height loss. Mild disc bulge. Mild facet arthropathy. Mild spinal canal stenosis. Tzma-qc-ymoleivt lateral recess stenosis. Mild bilateral neural foraminal stenosis. L4-5: The disc is preserved. Minimal disc bulge. Atjj-sv-dyozufaw facet arthropathy. No significant spinal canal stenosis. Euvt-sf-kfejagxr left and mild right neural foraminal stenosis. L5-S1: The disc is preserved. Minimal disc bulge. Moderate to severe facet arthropathy, left worse than right with left facet joint effusion and associated periarticular edema.. No significant spinal canal stenosis. Mlaf-fh-emgraqfg bilateral neural foraminal stenosis. Paraspinal musculature and paravertebral soft tissues: Normal. Impression 1. No substantial interval change. 2. No new disc herniation or high-grade stenosis. 3. Mild spinal canal stenosis at L2-3 and L3-4. 4. Multilevel zlqt-kr-mfmeoqsm neural foraminal stenosis. 5. Moderate to severe facet arthropathy at L5-S1, left greater than right, with associated left facet joint effusion and periarticular edema suggesting active inflammation/synovitis Signed by: Trevin Ibrahim, Jose Miguel Sign Date/Time: 08/07/2019 12:29 PM Outstanding Issues: To follow with Dr. Bentley as outpatient. TO follow with infectious disease in 2 weeks time . Discharge Information: Follow up: Allison Fairchild NP [address] [facility] [address] [facility] [address] Schedule an appointment as soon as possible for a visit in 1 week Jamie Bentley MD [address] [facility] [address] [facility] [id number] Schedule an appointment as soon as possible for a visit in 1 week possible infected mesh Shannan Pastrana MD [address] [facility] [phone] Schedule an appointment as soon as possible for a visit in 2 weeks hospital follow up, antibiotics follow up Discharge Medications New Medications Details diclofenac 1% Gel Apply 4 g topically 4 times daily. aka: VOLTAREN docusate sodium 100 MG capsule Take 100 mg by mouth Twice daily as needed for Constipation. aka: COLACE ertapenem (INVanz) 1 g in sodium chloride 0.9% 50 mL IVPB Inject 1 g into the vein every 24 hours for 28 days. Indications: Acute Abdominal Conditio n, Infection Within the Abdomen polyethylene glycol packet Take 1 diluted packet by mouth Daily. aka: MIRALAX potassium chloride 10 MEQ ER tablet Take 1 tablet by mouth Daily. aka: KLOR-CON QUEtiapine 50 MG tablet Take 1 tablet by mouth 2 times daily. aka: SEROquel Changed Medications Details oxyCODONE 15 mg immediate release tablet Take 1-2 tablets by mouth every 6 hours as needed for Pain. Maximum daily dose: 16 tablets What changed: when to take this reasons to take this aka: ROXICODONE Unchanged Medications Details amLODIPine 10 MG tablet Take 10 mg by mouth Daily. aka: NORVASC BOOST Liqd Take 8 oz by mouth Daily as needed (for lack of appetite). CENTRUM SILVER PO Take 1 tablet by mouth Daily. clopidogrel 75 mg tablet Take 1 tablet by mouth Daily. aka: PLAVIX ELIQUIS PO Take 5 mg by mouth [...] as needed for Nausea. aka: ZOFRAN ODT tamsulosin 0.4 mg Caps Take 0.8 mg by mouth Daily. aka: FLOMAX VENTOLIN HFA 90 mcg/puff inhaler Generic drug: albuterol Discontinued Medications promethazine 25 mg tablet aka: PHENERGAN Disposition: home Condition: Stable Code Status: Full Code Discharge took 43 minutes, to include final examination, discussion of admission, and prepa ration of prescriptions, instructions for on-going care, follow-up and documentation of disc harge summary. Marco Antonio Don MD 8:57 AM documented in this encounter Medications at Time [...] + + + +---------+ + + | ertapenem (INVanz) | Inject 1 g into the | 28 each | 0 | 08/05/20 | | | 1 g in sodium | vein every 24 hours | | | 19 | 9 | | chloride 0.9% 50 mL | for 28 days. | | | | | | IVPBIndications: | Indications: Acute | | | | | | Acute Abdominal | Abdominal Condition, | | | | | | Condition, | Infection Within | | | | | | Intra-Abdominal | the Abdomen | | | | | | Infection | | | | | | + + + +---------+ + + documented as of this encounter Progress Notes Elvi Bragg MD - 08/08/2019 6:04 PM PST [facility] Service: Hospitalist Progress Note Hospital Day: LOS: 10 days SUBJECTIVE Patient Summary: Mr. Cespedes is a 58 yr old man with hx of PAD, s/p angioplasty with stent placement in iliac artery, on chronic anticoagulation, TBI, hx of C. Diff colitis, HCV infection, anxiety and d epression and multiple abdominal surgery including at least 3 hernia repairs, treated back i n 07/04/19 for an abdominal wall abscess s/p ID and antibiotics, presented to the ED for ab dominal pain. CT abdomen showed a complex fluid and air collection deep into the abdominal w all. His case was discussed initially with surgery who recommended CT guided abscess drainag e. IR was consulted and patient underwent drain placement. He was also referred to ID for a ntibiotic management. His blood cultures have been negative. Culture of his abscess however has isolated E. Coli, S gordonii, and prevotella oralis. Patient was noted to have brownish fluid and air in his bag. A repeat CT abdomen on 08/02/19 showed unchanged size of the fluid collection. Patient was referred back to surgery whose impression now is possible infected mesh that might need to be removed but not urgently. Plan was for patient to continue antibi otic and have him follow up with Dr. Bentley to determine if he needs his mesh removed. Events Overnight: Patient was seen today, his back pain improved from the topical diclofenac. Scheduled Medications amLODIPine 10 mg Oral Daily apixaban 5 mg Oral BID clopidogrel 75 mg Oral Daily diclofenac 4 g Topical 4x Daily ertapenem 1 g Intravenous Q24H gabapentin 600 mg Oral BID magnesium oxide 400 mg Oral Daily oxyCODONE 15-30 mg Oral Q3H pantoprazole 40 mg Oral QAM AC polyethylene glycol 17 g Oral Daily potassium chloride 10 mEq Oral Daily QUEtiapine 50 mg Oral BID tamsulosin 0.8 mg Oral Daily Continuous Infusions PRN Medications acetaminophen, albuterol, benzonatate, docusate sodium, HYDROmorphone, LORazepam, melatonin , methocarbamol, ondansetron, Potassium replacement - NON ICU AND Potassium AND pota ssium chloride AND potassium chloride OBJECTIVE Vital Signs: BP 121/77 | Pulse 68 | Temp 37.2 C (98.9 F) (Oral) | Resp 16 | Ht 1.803 m (5' 11") | Wt 97.1 kg (214 lb 1.1 oz) | SpO2 96% | BMI 29.86 kg/m Patient Vitals for the past 24 hrs: BP Temp Temp src Pulse Resp SpO2 08/08/19 1722 121/77 37.2 C (98.9 F) Oral 68 16 96 % 08/08/19 0841 111/65 36.9 C (98.4 F) Oral 76 17 96 % 08/08/19 0254 108/64 36.8 C (98.3 F) Oral 67 16 94 % 08/07/190 111/68 37 C (98.6 F) Oral 69 17 95 % 08/07/19 1935 110/70 36.6 C (97.9 F) Oral 77 16 96 % Intake/Output Summary (Last 24 hours) at 08/08/2019 1804 Last data filed at 08/08/2019 0600 Gross per 24 hour Intake 510 ml Output 160 ml Net 350 ml Physical Exam Constitutional: He is oriented to person, place, and time. Middle aged man but appeared older than stated age, lying in bed not in any respiratory dis tress, in some discomfort HENT: Head: Normocephalic and atraumatic. Mouth/Throat: Oropharynx is clear and moist. Eyes: Pupils are equal, round, and reactive to light. Conjunctivae are normal. Neck: Normal range of motion. No JVD present. Cardiovascular: Normal rate and regular rhythm. No murmur heard. Pulmonary/Chest: Effort normal and breath sounds normal. He has no wheezes. He has no rales . Abdominal: Soft. Bowel sounds are normal. There is no tenderness. + drain in place with brownish fluid output, mild abdominal distension Musculoskeletal: General: No edema. Comments: + tenderness lower central back Lymphadenopathy: He has no cervical adenopathy. Neurological: He is alert and oriented to person, place, and time. No cranial nerve deficit . Skin: Skin is warm. DATA Recent Results (from the past 24 hour(s)) Basic Metabolic Panel Result Value Ref Range Na 139 135 - 145 mmol/L K 3.7 3.5 - 4.9 mmol/L Cl 105 99 - 109 mmol/L CO2 30 23 - 32 mmol/L Anion Gap 8 5 - 20 mmol/L Glucose 127 (H) 65 - 99 mg/dL BUN 14 8 - 25 mg/dL Creatinine 0.7 0.70 - 1.30 mg/dL BUN/Creatinine Ratio 20 Calcium 8.4 (L) 8.5 - 10.5 mg/dL Estimated GFR >60 >60 mL/min/1.73m2 CBC with Differential Result Value Ref Range WBC 8.63 3.80 - 11.00 K/uL RBC 3.53 (L) 4.20 - 5.70 M/uL Hemoglobin 10.5 (L) 13.2 - 17.0 g/dL Hematocrit 31.0 (L) 39.0 - 50.0 % MCV 87.8 80.0 - 100.0 fl MCH 29.6 27.0 - 34.0 pg MCHC 33.7 32.0 - 35.5 g/dL RDW-SD 52.9 37 - 53 fl Platelet Count 393 150 - 400 K/uL MPV 7.8 fl Diff Type AUTOMATED % Neutrophils 54.78 % % Lymphocytes 30.96 % Monocyte % 9.21 % Eosinophils % 3.92 % Basophils % 1.13 % Neutrophils, Absolute 4.73 1.90 - 7.40 K/uL Absolute Lymphocytes 2.67 1.00 - 3.90 K/uL Absolute Monocytes 0.80 0.00 - 0.80 K/uL Eosinophils, Absolute 0.34 0.00 - 0.50 K/uL Basophils, Absolute 0.10 0.00 - 0.10 K/uL IMAGES Recent Results (from the past 360 hour(s)) XR Chest PA and Lateral Narrative CHEST PA AND LATERAL CLINICAL INFORMATION: Cough and congestion. COMPARISON: CTA CHEST ABDOMEN PELVIS W CONTRAST (02/21/2019); SUPA C ARM GUIDANCE (02/05/2016); SUPA C ARM GUIDANCE (01/07/2016); FINDINGS: Heart size normal. No consolidation, pleural effusion, or pneumothorax. Minimal perihilar and basilar linear atelectasis. Osseous structures unremarkable. Impression No significant abnormality. Signed by: Trevin Emery, Eladio Sign Date/Time: 07/29/2019 4:[address] Abdomen Pelvis w Contrast Narrative CT ABDOMEN AND PELVIS WITH CONTRAST CLINICAL INFORMATION: Abdominal pain left side. COMPARISON: CT ABDOMEN W CONTRAST (07/04/2019); CTA CHEST ABDOMEN PELVIS W CONTRAST (02/21/2019); CT ABDOMEN PELVIS W CONTRAST (01/21/2018); CT ABDOMEN PELVIS W CONTRAST (03/04/2016); PROCEDURE: Axial images through the abdomen and pelvis after the administration of 100ml omnipaque 350 intravenous contrast. Multiplanar reconstructions. At least one of the following CT dose optimization techniques were used: Automated exposure control; Adjustment of mA and/or kV according to patient size; Use of iterative reconstruction technique. FINDINGS: LUNG BASES: No significant pulmonary abnormality. No pleural effusion or pneumothorax. ABDOMEN Liver and Biliary: Liver unremarkable. Cholecystectomy. Pancreas, Spleen and Adrenals: 3 mm calcification in the uncinate process of the pancreas 2/66, stable. This appears inferior/medial to the CBD, probably due to chronic pancreatitis. I doubt distal CBD stone. CBD 7 mm, stable. Pancreas otherwise unremarkable. Spleen, adrenals unremarkable. Kidneys: 12 mm lateral mid left renal cyst with smaller inferior pole cystic lesion, unchanged perhaps due to smaller cyst, too small to characterize. Scarring lateral upper pole of the right kidney again noted. ABDOMEN AND PELVIS Bowel: No small bowel or colonic dilation or adjacent inflammation. No appendiceal dilation or inflammation. Vessels: Right common/proximal external iliac stent. No other arterial abnormalities. No aneurysm. Patent portal vein. Lymph Nodes: Lymph node medial to the pancreatic head measuring 1.4 x 3.0 cm, stable dating back 03/04/2016, benign. No other evidence of adenopathy. Peritoneum and Retroperitoneum: No free air. No ascites. PELVIS Genitourinary: Distal ureters and bladder appear normal. No pelvic masses. BODY WALL Soft Tissues: Abdominal wall hernia repair, with complex debris and air superficial to the mesh and deep to the abdominal wall measuring 12.3 cm transverse by 2.4 cm AP by 7.6 cm superoinferior dimension, slightly increased in size. This raises concern for abscess. Infiltration of the abdominal wall in this region. No fistulization to the skin is seen presently. Bones: Old healed right superior and inferior pubic rami/pubic symphyseal fractures, with plate and screw fixation of the right iliac wing extending through the SI joint, unchanged. Fusion right SI joint. Chronic compression of the central L4 vertebral body with preserved periphery. Spondylotic changes of the spine. No listhesis. Impression 1. Complex fluid and air collection deep to the abdominal wall but superficial to the mesh repair in the midline abdomen measuring 12.3 x 2.4 by 7.6 cm. While this may be due to hematoma, abscess must be considered. No fistula to the skin surface is seen presently. 2. Probable chronic pancreatitis, cholecystectomy, right renal scarring, left renal cysts, chronic right pelvic fractures with repair, chronic L4 central superior endplate compression deformity. Signed by: Trevin Walker Shawn Sign Date/Time: 07/29/2019 6:[address] Abdomen Pelvis wo Contrast Narrative CT ABDOMEN AND PELVIS WITHOUT CONTRAST CLINICAL INFORMATION: Abdominal pain, Abdominal abscess COMPARISON: CT GUIDED DRAIN ABSCESS PERITONEAL (07/30/2019); CT ABDOMEN PELVIS W CONTRAST (07/29/2019) PROCEDURE: Axial images through the abdomen and pelvis. Multiplanar reconstructions. At least one of the following CT dose optimization techniques were used: Automated exposure control; Adjustment of mA and/or kV according to patient size; Use of iterative reconstruction technique. FINDINGS: Lack of intravenous contrast typically diminishes sensitivity for assessment of solid organs and vascular structures. LUNG BASES: Trace bilateral pleural effusions, with associated small amount of atelectasis. ABDOMEN Solid organ evaluation suboptimal without contrast. Liver and Biliary: Liver appears unremarkable. Patient is post cholecystectomy. Pancreas, Spleen and Adrenals: Appear unremarkable. Kidneys: Appear unremarkable. ABDOMEN AND PELVIS Bowel: Appendix is seen on series 2, image 114 and appears unremarkable. No bowel obstruction or ileus seen. Vessels: Mild atherosclerosis. Aorta does not appear aneurysmal Lymph Nodes: No enlarged lymph nodes seen Peritoneum and Retroperitoneum: Interval placement of a percutaneous drainage catheter. Previously noted fluid collection appears to be essentially unchanged in size, measuring approximately 12.3 cm x 2.4 cm in size. PELVIS Genitourinary: Urinary bladder is mildly distended BODY WALL Soft Tissues: No significant abnormality appreciated. Bones: No acute or destructive osseous process seen. Impression Interval placement of a percutaneous drainage catheter. Previously noted fluid collection appears to be essentially unchanged in size, measuring approximately 12.3 cm x 2.4 cm in size. Signed by: Trevin Ch Amit Sign Date/Time: 08/02/2019 8:06 PM MRI Lumbar Spine wo Contrast Narrative MRI LUMBAR SPINE WITHOUT CONTRAST CLINICAL INFORMATION: Lumbosacral osteoarthritis. COMPARISON: MRI LUMBAR SPINE WO CONTRAST (12/10/2017); PROCEDURE: Sagittal T2, axial T2, sagittal T1, axial T1, sagittal STIR sequences. FINDINGS: Alignment: Minimal grade 1 anterolisthesis of L5 on S1. Vertebrae and vertebral marrow signal: Mild L4 superior endplate height loss with chronic appearance. No evidence of a recent fracture. Conus and imaged portions of the caudal cord: Normal. Lumbar disc levels: L1-2: The disc is preserved. No disc herniation or significant disc bulge. The facet joints are normal. No significant spinal canal stenosis or neural foraminal stenosis. L2-3: The disc is preserved. Mild disc bulge with posterior high-intensity zone. Mild facet arthropathy. Mild spinal canal stenosis. Minimal bilateral neural foraminal stenosis. L3-4: The disc is dehydrated with minimal height loss. Mild disc bulge. Mild facet arthropathy. Mild spinal canal stenosis. Sdpn-jh-gvciubvp lateral recess stenosis. Mild bilateral neural foraminal stenosis. L4-5: The disc is preserved. Minimal disc bulge. Hdse-mh-kmgacdax facet arthropathy. No significant spinal canal stenosis. Yrpd-hf-ruutympz left and mild right neural foraminal stenosis. L5-S1: The disc is preserved. Minimal disc bulge. Moderate to severe facet arthropathy, left worse than right with left facet joint effusion and associated periarticular edema.. No significant spinal canal stenosis. Xetd-ak-rdsypshq bilateral neural foraminal stenosis. Paraspinal musculature and paravertebral soft tissues: Normal. Impression 1. No substantial interval change. 2. No new disc herniation or high-grade stenosis. 3. Mild spinal canal stenosis at L2-3 and L3-4. 4. Multilevel mtgd-sl-dafhjmdo neural foraminal stenosis. 5. Moderate to severe facet arthropathy at L5-S1, left greater than right, with associated left facet joint effusion and periarticular edema suggesting active inflammation/synovitis Signed by: Trevin Ibrahim, Jose Miguel Sign Date/Time: 08/07/2019 12:29 PM PROBLEM LIST Principal Problem: Abdominal wall abscess Active Problems: Abdominal pain, generalized History of traumatic brain injury HTN (hypertension), benign ASSESSMENT & PLAN Abdominal wall abscess ID following, antibiotic now changed to ertapenem CT abdomen 08/03/19 showed unchanged size of mass Surgery inputs noted, tentative plan is for patient to continue with antibiotic to treat in fection and follow up with Dr. Bentley will be arranged; discussed with surgical PA, Dr. Rene nguyen's office will call the patient for his follow up S/p PICC line placement Awaiting for OPAT to be arranged HTN Noted BP Continue amlodipine Continue to monitor BP closely PAD On plavix History of renal artery dissection Being evaluated for possible vasculitis On eliquis Normal renal function Chronic low back pain improved MRI noted PT consulted Diclofenac gel QID Continue with prn opiates Disposition: for discharge once OPAT is arranged Code Status: Full Code Elvi Bragg MD 08/08/2019 6:04 PM Mariia Glynn, RD - 08/08/2019 2:05 PM PST NUTRITION NOTE Summary Assessment triggered for LOS. Pt is 58 yo M admitted for abdominal wall abscess. Nutrition Intake Current active diet order is: Diet Diet general; Effective Now 100% meals charted Medications KCl Anthropometrics Pt is 124% IBW with BMI 29.9 Current Weight: 97.1 kg (214 lb 1.1 oz) Admit Weight: 97.1 kg (214 lb) Biochemical Data, Medical Test, and Procedures Recent Labs 08/08/19 0436 08/07/19 0545 NA 139 139 K 3.7 3.8 GLU 127* 92 BUN 14 15 CREA 0.7 0.8 MG -- 2.3 Recommendations Continue general diet No nutrition diagnosis identified at this time Nutritional Risk Low risk Required Follow Up: (08/15/19 L) Mariia Weeks RD 08/08/2019 2:05 PM Sujata Marley PA - 08/08/2019 1:00 PM PST Interventional Radiology Progress Note Patient Name: Reza Cespedes Date of : 1960 Consulting Provider: Sujata Man PA-C Interval History/Subjective: Reza Cespedes is a 58 y.o. male with abdominal wall infection/abscess s/p CT-guided ab scess drainage and catheter placement 07/30/2019. Patient's WBC has remained WNL. He is af ebrile and continues on IV antibiotics. Decreased output charted as 10 ml for past two days , but may have been charted incorrectly. Patient's states she is capable of managing th e drain once patient is discharged since she has managed it before. Labs: 3 Day Labs: Recent Labs Lab 08/09/19 0454 08/08/19 0436 08/07/19 0545 08/04/19 0435 08/03/19 0502 WBC 8.11 8.63 9.19 < > 8.20 9.59 HGB 10.8* 10.5* 10.4* < > 11.7* 11.9* HCT 32.2* 31.0* 30.7* < > 34.4* 35.5* PLT 408* 393 421* < > 448* 429* NA 139 139 139 < > 141 139 K 4.2 3.7 3.8 < > 3.7 3.8 CL 106 105 105 < > 108 107 CO2 29 30 30 < > 27 25 BUN 16 14 15 < > 13 17 CALCIUM 8.6 8.4* 8.4* < > 8.6 8.6 MG -- -- 2.3 -- 2.0 -- ALKPHOS -- -- -- -- 77 85 ALBUMIN -- -- -- -- 2.8* 3.0* < > = values in this interval not displayed. Pertinent Imaging/Procedures: Ct Abdomen Pelvis Wo Contrast Result Date: 08/02/2019 CT ABDOMEN AND PELVIS WITHOUT CONTRAST CLINICAL INFORMATION: Abdominal pain, Abdominal absc ess COMPARISON: CT GUIDED DRAIN ABSCESS PERITONEAL (07/30/2019); CT ABDOMEN PELVIS W CONTRAS T (07/29/2019) PROCEDURE: Axial images through the abdomen and pelvis. Multiplanar reconstru ctions. At least one of the following CT dose optimization techniques were used: Automated e xposure control; Adjustment of mA and/or kV according to patient size; Use of iterative leena nstruction technique. FINDINGS: Lack of intravenous contrast typically diminishes sensitivit y for assessment of solid organs and vascular structures. LUNG BASES: Trace bilateral pleura l effusions, with associated small amount of atelectasis. ABDOMEN Solid organ evaluation sub optimal without contrast. Liver and Biliary: Liver appears unremarkable. Patient is post ch olecystectomy. Pancreas, Spleen and Adrenals: Appear unremarkable. Kidneys: Appear unremarka ble. ABDOMEN AND PELVIS Bowel: Appendix is seen on series 2, image 114 and appears unremarka ble. No bowel obstruction or ileus seen. Vessels: Mild atherosclerosis. Aorta does not clari ear aneurysmal Lymph Nodes: No enlarged lymph nodes seen Peritoneum and Retroperitoneum: Int erval placement of a percutaneous drainage catheter. Previously noted fluid collection appe ars to be essentially unchanged in size, measuring approximately 12.3 cm x 2.4 cm in size. P STEVE Genitourinary: Urinary bladder is mildly distended BODY WALL Soft Tissues: No signific ant abnormality appreciated. Bones: No acute or destructive osseous process seen. Interval placement of a percutaneous drainage catheter. Previously noted fluid collection appears to be essentially unchanged in size, measuring approximately 12.3 cm x 2.4 cm in siz e. Signed by: Trevin Ch Amit Sign Date/Time: 08/02/2019 8:06 PM Xr Chest Pa And Lateral Result Date: 07/29/2019 CHEST PA AND LATERAL CLINICAL INFORMATION: Cough and congestion. COMPARISON: CTA CHEST ABDO MEN PELVIS W CONTRAST (02/21/2019); SUPA C ARM GUIDANCE (02/05/2016); SUPA C ARM GUIDANCE (01/07/20 16); FINDINGS: Heart size normal. No consolidation, pleural effusion, or pneumothorax. Min imal perihilar and basilar linear atelectasis. Osseous structures unremarkable. No significant abnormality. Signed by: Trevin Emery Gregory Sign Date/Time: 07/29/2019 4:50 PM Mri Lumbar Spine Wo Contrast Result Date: 08/07/2019 MRI LUMBAR SPINE WITHOUT CONTRAST CLINICAL INFORMATION: Lumbosacral osteoarthritis. COMPARI SON: MRI LUMBAR SPINE WO CONTRAST (12/10/2017); PROCEDURE: Sagittal T2, axial T2, sagittal T1, axial T1, sagittal STIR sequences. FINDINGS: Alignment: Minimal grade 1 anterolisthesis of L5 on S1. Vertebrae and vertebral marrow signal: Mild L4 superior endplate height loss with chronic appearance. No evidence of a recent fracture. Conus and imaged portions of the caud al cord: Normal. Lumbar disc levels: L1-2: The disc is preserved. No disc herniation or sign ificant disc bulge. The facet joints are normal. No significant spinal canal stenosis or santhosh ral foraminal stenosis. L2-3: The disc is preserved. Mild disc bulge with posterior high-int ensity zone. Mild facet arthropathy. Mild spinal canal stenosis. Minimal bilateral neural foraminal stenosis. L3-4: The disc is dehydrated with minimal height loss. Mild disc bulge . Mild facet arthropathy. Mild spinal canal stenosis. Twav-rq-boypdotj lateral recess sten osis. Mild bilateral neural foraminal stenosis. L4-5: The disc is preserved. Minimal disc b ulge. Bkfn-em-gmjiiebi facet arthropathy. No significant spinal canal stenosis. Mild-to-mo derate left and mild right neural foraminal stenosis. L5-S1: The disc is preserved. Minimal disc bulge. Moderate to severe facet arthropathy, left worse than right with left facet luis miguel nt effusion and associated periarticular edema.. No significant spinal canal stenosis. Mil a-qa-tmnbrmcr bilateral neural foraminal stenosis. Paraspinal musculature and paravertebral soft tissues: Normal. 1. No substantial interval change. 2. No new disc herniation or high-grade stenosis. 3. Mil d spinal canal stenosis at L2-3 and L3-4. 4. Multilevel hnmz-xw-bzklcrdx neural foraminal st enosis. 5. Moderate to severe facet arthropathy at L5-S1, left greater than right, with asso ciated left facet joint effusion and periarticular edema suggesting active inflammation/syno vitis Signed by: Trevin Ibrahim Ryan Sign Date/Time: 08/07/2019 12:[address] Abdomen Pelvis W Contrast Result Date: 07/29/2019 CT ABDOMEN AND PELVIS WITH CONTRAST CLINICAL INFORMATION: Abdominal pain left side. COMPARI SON: CT ABDOMEN W CONTRAST (07/04/2019); CTA CHEST ABDOMEN PELVIS W CONTRAST (02/21/2019); CT ABDOMEN PELVIS W CONTRAST (01/21/2018); CT ABDOMEN PELVIS W CONTRAST (03/04/2016); PROCEDURE: Axial images through the abdomen and pelvis after the administration of 100ml omnipaque 350 intravenous contrast. Multiplanar reconstructions. At least one of the following CT dose op timization techniques were used: Automated exposure control; Adjustment of mA and/or kV acco rding to patient size; Use of iterative reconstruction technique. FINDINGS: LUNG BASES: No s ignificant pulmonary abnormality. No pleural effusion or pneumothorax. ABDOMEN Liver and Joe iary: Liver unremarkable. Cholecystectomy. Pancreas, Spleen and Adrenals: 3 mm calcificatio n in the uncinate process of the pancreas , stable. This appears inferior/medial to the CBD, probably due to chronic pancreatitis. I doubt distal CBD stone. CBD 7 mm, stable. P ancreas otherwise unremarkable. Spleen, adrenals unremarkable. Kidneys: 12 mm lateral mid l eft renal cyst with smaller inferior pole cystic lesion, unchanged perhaps due to smaller cy st, too small to characterize. Scarring lateral upper pole of the right kidney again noted. ABDOMEN AND PELVIS Bowel: No small bowel or colonic dilation or adjacent inflammation. No a ppendiceal dilation or inflammation. Vessels: Right common/proximal external iliac stent. N o other arterial abnormalities. No aneurysm. Patent portal vein. Lymph Nodes: Lymph node m edial to the pancreatic head measuring 1.4 x 3.0 cm, stable dating back 03/04/2016, benign. No other evidence of adenopathy. Peritoneum and Retroperitoneum: No free air. No ascites. P STEVE Genitourinary: Distal ureters and bladder appear normal. No pelvic masses. BODY WALL Soft Tissues: Abdominal wall hernia repair, with complex debris and air superficial to the m esh and deep to the abdominal wall measuring 12.3 cm transverse by 2.4 cm AP by 7.6 cm superoinferior dimension, slightly increased in size. This raises concern for abscess. Infi ltration of the abdominal wall in this region. No fistulization to the skin is seen present ly. Bones: Old healed right superior and inferior pubic rami/pubic symphyseal fractures, wit h plate and screw fixation of the right iliac wing extending through the SI joint, unchanged . Fusion right SI joint. Chronic compression of the central L4 vertebral body with preserve d periphery. Spondylotic changes of the spine. No listhesis. 1. Complex fluid and air collection deep to the abdominal wall but superficial to the mesh repair in the midline abdomen measuring 12.3 x 2.4 by 7.6 cm. While this may be due to [place], abscess must be considered. No fistula to the skin surface is seen presently. 2. Prob able chronic pancreatitis, cholecystectomy, right renal scarring, left renal cysts, chronic right pelvic fractures with repair, chronic L4 central superior endplate compression deformi ty. Signed by: Trevin Walker, Keyur Sign Date/Time: 07/29/2019 6:06 PM Physical Examination: Vitals: 08/09/19 0301 BP: 120/62 Pulse: 67 Resp: 16 Temp: 36.7 C (98 F) Physical Exam Constitutional: No distress. Pulmonary/Chest: Effort normal. No respiratory distress. Abdominal: Soft. There is tenderness. Drain with some crusting around initial bandage, which was removed today since it was not i n contact with catheter. Brown colored output. Neurological: He is alert. Skin: Skin is warm and dry. He is not diaphoretic. Assessment and Plan: Abdominal wall abscess s/p CT guided abscess drainage and catheter placement with decreasin g output. Discussed output with nursing staff, she will keep a close eye on it today and abdoul l re-educate the patient's on drain management and flushing BID prior to discharge. Pat ient planning to have surgical intervention in the near future with Dr. Bentley. HALIMA Hobbs-C Vascular and Interventional Radiology rsales, Shannan smith MD - 08/07/2019 4:15 PM PSTFormatting of this note might be different from the [facility] Service: Infectious Diseases Progress Note Hospital Day: LOS: 9 days Post-Op Day: * No surgery found * CC: follow up on infection and antibiotic therapy SUBJECTIVE/OVERNIGHT EVENTS The patient remains on treatment with antibiotics. No acute events over last 24 hours are reported. REVIEW OF SYSTEMS: feeling well; PICC line in place MEDICATIONS: Reviewed PHYSICAL EXAM Vital Signs: BP 109/71 | Pulse 72 | Temp 37 C (98.6 F) (Oral) | Resp 15 | Ht 1.803 m (5' 11") | Wt 97.1 kg (214 lb 1.1 oz) | SpO2 96% | BMI 29.86 kg/m Focused exam shows: General exam: No distress, cooperative with exam. HEENT: sclera non-icteric, no visible oral thrush Cardiovascular: regular rate and rhythm Lungs: no tachypnea, clear breath sounds. Mildly decreased at bases Abdomen: no distension, bowel sounds present Extremities/MSK: No edema, no joint effusions Skin: No lesions, normal turgor Neurologic: Awake, cranial nerves intact. Follows commands. LABS: MICRO Culture, Blood [[id number]] Collected: 07/29/192215 Order Status: Completed Specimen: Peripheral Blood Updated: 08/05/19605 Special Requests LEFT AC Special Requests Testing performed at [facility];[address] [place] [id number] RESULT NO GROWTH 6 DAYS RESULT Testing performed at [facility], [address] [place] [address] Comment: Testing performed at [facility], [address] [place] [id number] Culture, Blood [[id number]] Collected: 07/29/192222 Order Status: Completed Specimen: Peripheral Blood Updated: 08/05/19605 Special Requests RIGHT HAND Special Requests Testing performed at [facility];[address] [place] [id number] RESULT NO GROWTH 6 DAYS RESULT Testing performed at [facility], [address] [place] [id number] Comment: Testing performed at [facility], [address] [place] [id number] Culture, Blood [[id number]] Collected: 07/29/192037 Order Status: Completed Specimen: Peripheral Blood Updated: 08/05/19 0606 Special Requests LAC Special Requests Testing performed at [facility];[address] [place] [id number] RESULT NO GROWTH 6 DAYS RESULT Testing performed at [facility], [address] [place] [id number] Comment: Testing performed at [facility], [address] [place] [id number] Culture, Blood [[id number]] Collected: 07/29/191909 Order Status: Canceled Specimen: Peripheral Blood Culture, Body Fluid Sterile [[id number]] (Abnormal) Collected: 07/30/19 112 Order Status: Completed Specimen: Body Fluid from Abscess Updated: 08/03/1938 Gram Stain Result -- 4+ WBC'S SEEN Gram Stain Result -- 1+ GRAM POSITIVE COCCI Gram Stain Result -- 3+ GRAM NEGATIVE RODS RESULT --Abnormal 2+ ESCHERICHIA COLI Abnormal RESULT -- 2+ MIXED GRAM POSITIVE DEEPA RESULT -- 2+ MIXED ANAEROBIC DEEPA RESULT Testing performed at [facility], [address] [place] [id number] Susceptibility Escherichia coli (1) Antibiotic Interpretation Vitek 2XL Method Status Ampicillin Sensitive SUSCEPTIBLE ANDREW Final Ampicillin + Sulbactam Sensitive SUSCEPTIBLE ANDREW Final Cefepime Sensitive SUSCEPTIBLE ANDREW Final Cefoxitin Sensitive SUSCEPTIBLE ANDREW Final Ceftazidime Sensitive SUSCEPTIBLE ADNREW Final Ceftriaxone Sensitive SUSCEPTIBLE ANDREW Final Ciprofloxacin Sensitive SUSCEPTIBLE ANDREW Final Gentamicin Sensitive SUSCEPTIBLE ANDREW Final Levofloxacin Sensitive SUSCEPTIBLE ANDREW Final Tobramycin Sensitive SUSCEPTIBLE ANDREW Final Trimethoprim + Sulfamethoxazole Sensitive SUSCEPTIBLE ANDREW Final Testing performed at [address] [address] Culture, Urine [[id number]] Collected: 07/29/192038 Order Status: Completed Specimen: Urine, Clean Catch Updated: 07/31/19 1140 RESULT NO GROWTH RESULT Testing performed at [facility], [address] [place] [address] Comment: Testing performed at [facility], [address] [place] [address] Flu Swab Collection [[id number]] Collected: 07/29/19 1630 Order Status: Completed Specimen: Tissue from Nasopharynx Updated: 07/29/19 1637 Collection SPECIMEN RECEIVED IN LAB Comment: Testing performed at [facility];[address] [place] [address] Influenza A and B RNA, NAAT [[id number]] Collected: 07/29/19 1656 Order Status: Completed Updated: 07/29/19 1724 Influenza A NEGATIVE Influenza B NEGATIVE Comment: Testing performed by Molecular Methodology Testing performed at [facility];[address] [place] [address] MRSA NAAT [[id number]] Collected: 07/29/19 2257 Order Status: Completed Specimen: Tissue from Nares Updated: 07/30/19 0023 SOURCE: NARES(NOSE) Result NEGATIVE Comment: Testing performed at [facility];[address] [place] [address] All labs were reviewed.Data: Recent Results (from the past 24 hour(s)) Basic Metabolic Panel Result Value Ref Range Na 139 135 - 145 mmol/L K 3.8 3.5 - 4.9 mmol/L Cl 105 99 - 109 mmol/L CO2 30 23 - 32 mmol/L Anion Gap 8 5 - 20 mmol/L Glucose 92 65 - 99 mg/dL BUN 15 8 - 25 mg/dL Creatinine 0.8 0.70 - 1.30 mg/dL BUN/Creatinine Ratio 19 Calcium 8.4 (L) 8.5 - 10.5 mg/dL Estimated GFR >60 >60 mL/min/1.73m2 CBC with Differential Result Value Ref Range WBC 9.19 3.80 - 11.00 K/uL RBC 3.52 (L) 4.20 - 5.70 M/uL Hemoglobin 10.4 (L) 13.2 - 17.0 g/dL Hematocrit 30.7 (L) 39.0 - 50.0 % MCV 87.4 80.0 - 100.0 fl MCH 29.7 27.0 - 34.0 pg MCHC 34.0 32.0 - 35.5 g/dL RDW-SD 52.5 37 - 53 fl Platelet Count 421 (H) 150 - 400 K/uL MPV 7.8 fl Diff Type AUTOMATED % Neutrophils 52.04 % % Lymphocytes 32.70 % Monocyte % 10.78 % Eosinophils % 3.56 % Basophils % 0.92 % Neutrophils, Absolute 4.78 1.90 - 7.40 K/uL Absolute Lymphocytes 3.00 1.00 - 3.90 K/uL Absolute Monocytes 0.99 (H) 0.00 - 0.80 K/uL Eosinophils, Absolute 0.33 0.00 - 0.50 K/uL Basophils, Absolute 0.08 0.00 - 0.10 K/uL Magnesium Result Value Ref Range Magnesium 2.3 1.7 - 2.4 mg/dL Problem List: Principal Problem: Abdominal wall abscess Active Problems: Abdominal pain, generalized History of traumatic brain injury HTN (hypertension), benign ASSESSMENT & PLAN The patient is a 58 y.o.-year-old male with the following problems: Abdominal wall abscess -This is in the clinical context of a patient with history of traumatic brain injury, com plex history of abdominal surgeries including hernia repair with mesh. From documentation, his last surgery pertaining to the hernia was done on 11/2016 and that he had been under the care of Dr. Jamie Bentley, [facility] surgery -He had been previously under the care of Dr. Rd Busby, [facility] but he and his jenifer pinedo indicate wanting to continue Infectious Diseases under [facility] at this time -Patient is not septic -He has history of penicillin allergy; although anaphylaxis is listed as a reaction in wi s chart, he really does not know what happened. His indicates that he had tolerated c ephalexin previously with no adverse reaction -CT of the abdomen and pelvis on this admission indicate that the abscess is superficia l to the mesh -Dr. Caldwell, Surgery, had been consulted from the ER; on his recommendation, patient has undergone CT-guided abscess drainage under IR with drain in place. Percutaneous drain i n place wasslightly pulled out; reevaluated by IR and in correct position -Follow up CT showed unchanged fluid collection; no overt fistulous tract -Abscess culture grewE coli, quinolone S, mixed anaerobes andmixed Gram positive phyllis a. Blood cultures with no growth to date. MRSA nasal PCR negative -07/04 wound culture grew E. coli,Streptococcus gordonii and 2+ Prevotella oralis Recommendations: Growing E coli now with history of polymicrobial infection High risk patient given multiple surgeries in the past and unchanged size of fluid collecti on. Antibiotics escalated to invanz in light of risk of MDRO and no improvement on imaging. No immediate surgical intervention planned. Plan on 4 weeks of invanz from 08/05. PICC line placed. SW working on OPAT. OK to D/C from ID standpoint once abx arranged and follow up with ID as outpatient in 2 wee ks. Dictation software, [employer], used which may contain error for similar sounding words even af ter review. Personal communication requested for any clarification. Portions of this chart may have been copied from previous notes for continuity of care purp ose Shannan Pastrana MD Infectious Diseases 08/07/2019 an, Brittny blair MD - 08/07/2019 3:18 PM PSTFormatting of this note might be different from the origin [facility] Service: Hospitalist Progress Note Hospital Day: LOS: 9 days SUBJECTIVE Patient Summary: Mr. Cespedes is a 58 yr old man with hx of PAD, s/p angioplasty with stent placement in iliac artery, on chronic anticoagulation, TBI, hx of C. Diff colitis, HCV infection, anxiety and d epression and multiple abdominal surgery including at least 3 hernia repairs, treated back i n 07/04/19 for an abdominal wall abscess s/p ID and antibiotics, presented to the ED for ab dominal pain. CT abdomen showed a complex fluid and air collection deep into the abdominal w all. His case was discussed initially with surgery who recommended CT guided abscess drainag e. IR was consulted and patient underwent drain placement. He was also referred to ID for a ntibiotic management. His blood cultures have been negative. Culture of his abscess however has isolated E. Coli, S gordonii, and prevotella oralis. Patient was noted to have brownish fluid and air in his bag. A repeat CT abdomen on 08/02/19 showed unchanged size of the fluid collection. Patient was referred back to surgery whose impression now is possible infected mesh that might need to be removed but not urgently. His case will be discussed with Dr. Rene nguyen who performed his previous hernia repairs. Events Overnight: Patient complained of having back pain last night. This has been chronic and was previously seen by Dr. Forrest. No intervention was done due to his insurance issues. He has been fal ling and tripping at home because of the pain and intermittent difficulty lifting his leg wh en his pain is worse. Last night his pain was worse than before, radiating down his inner th igh. Scheduled Medications amLODIPine 10 mg Oral Daily apixaban 5 mg Oral BID clopidogrel 75 mg Oral Daily diclofenac 4 g Topical 4x Daily ertapenem 1 g Intravenous Q24H gabapentin 600 mg Oral BID magnesium oxide 400 mg Oral Daily oxyCODONE 15-30 mg Oral Q3H pantoprazole 40 mg Oral QAM AC polyethylene glycol 17 g Oral Daily potassium chloride 10 mEq Oral Daily QUEtiapine 50 mg Oral BID tamsulosin 0.8 mg Oral Daily Continuous Infusions PRN Medications acetaminophen, albuterol, benzonatate, docusate sodium, HYDROmorphone, LORazepam, melatonin , methocarbamol, ondansetron, Potassium replacement - NON ICU AND Potassium AND pota ssium chloride AND potassium chloride OBJECTIVE Vital Signs: BP 115/70 | Pulse 65 | Temp 36.8 C (98.3 F) (Oral) | Resp 15 | Ht 1.803 m (5' 11") | Wt 97.1 kg (214 lb 1.1 oz) | SpO2 95% | BMI 29.86 kg/m Patient Vitals for the past 24 hrs: BP Temp Temp src Pulse Resp SpO2 Weight 08/07/19 1124 115/70 36.8 C (98.3 F) Oral 65 15 95 % 08/07/19 0830 97.1 kg (214 lb 1.1 oz) 08/07/19 0814 122/76 36.5 C (97.7 F) Oral 63 16 96 % 08/07/19 0754 130/81 08/07/19 0347 105/66 36.6 C (97.8 F) Oral 61 17 97 % 08/06/19 2343 104/56 37 C (98.6 F) Oral 72 18 95 % 08/06/19 1924 36.4 C (97.6 F) Oral 75 96 % 08/06/19 1641 121/74 36.3 C (97.4 F) Oral 74 18 98 % Intake/Output Summary (Last 24 hours) at 08/07/2019 1518 Last data filed at 08/07/2019 0349 Gross per 24 hour Intake 800 ml Output 10 ml Net 790 ml Physical Exam Constitutional: He is oriented to person, place, and time. Middle aged man but appeared older than stated age, lying in bed not in any respiratory dis tress, in some discomfort HENT: Head: Normocephalic and atraumatic. Mouth/Throat: Oropharynx is clear and moist. Eyes: Pupils are equal, round, and reactive to light. Conjunctivae are normal. Neck: Normal range of motion. No JVD present. Cardiovascular: Normal rate and regular rhythm. No murmur heard. Pulmonary/Chest: Effort normal and breath sounds normal. He has no wheezes. He has no rales . Abdominal: Soft. Bowel sounds are normal. There is no tenderness. + drain in place with brownish fluid output, mild abdominal distension Musculoskeletal: General: No edema. Comments: + tenderness lower central back Lymphadenopathy: He has no cervical adenopathy. Neurological: He is alert and oriented to person, place, and time. No cranial nerve deficit . Skin: Skin is warm. DATA Recent Results (from the past 24 hour(s)) Basic Metabolic Panel Result Value Ref Range Na 139 135 - 145 mmol/L K 3.8 3.5 - 4.9 mmol/L Cl 105 99 - 109 mmol/L CO2 30 23 - 32 mmol/L Anion Gap 8 5 - 20 mmol/L Glucose 92 65 - 99 mg/dL BUN 15 8 - 25 mg/dL Creatinine 0.8 0.70 - 1.30 mg/dL BUN/Creatinine Ratio 19 Calcium 8.4 (L) 8.5 - 10.5 mg/dL Estimated GFR >60 >60 mL/min/1.73m2 CBC with Differential Result Value Ref Range WBC 9.19 3.80 - 11.00 K/uL RBC 3.52 (L) 4.20 - 5.70 M/uL Hemoglobin 10.4 (L) 13.2 - 17.0 g/dL Hematocrit 30.7 (L) 39.0 - 50.0 % MCV 87.4 80.0 - 100.0 fl MCH 29.7 27.0 - 34.0 pg MCHC 34.0 32.0 - 35.5 g/dL RDW-SD 52.5 37 - 53 fl Platelet Count 421 (H) 150 - 400 K/uL MPV 7.8 fl Diff Type AUTOMATED % Neutrophils 52.04 % % Lymphocytes 32.70 % Monocyte % 10.78 % Eosinophils % 3.56 % Basophils % 0.92 % Neutrophils, Absolute 4.78 1.90 - 7.40 K/uL Absolute Lymphocytes 3.00 1.00 - 3.90 K/uL Absolute Monocytes 0.99 (H) 0.00 - 0.80 K/uL Eosinophils, Absolute 0.33 0.00 - 0.50 K/uL Basophils, Absolute 0.08 0.00 - 0.10 K/uL Magnesium Result Value Ref Range Magnesium 2.3 1.7 - 2.4 mg/dL IMAGES Recent Results (from the past 360 hour(s)) XR Chest PA and Lateral Narrative CHEST PA AND LATERAL CLINICAL INFORMATION: Cough and congestion. COMPARISON: CTA CHEST ABDOMEN PELVIS W CONTRAST (02/21/2019); SUPA C ARM GUIDANCE (02/05/2016); SUPA C ARM GUIDANCE (01/07/2016); FINDINGS: Heart size normal. No consolidation, pleural effusion, or pneumothorax. Minimal perihilar and basilar linear atelectasis. Osseous structures unremarkable. Impression No significant abnormality. Signed by: Trevin Emery Gregory Sign Date/Time: 07/29/2019 4:[address] Abdomen Pelvis w Contrast Narrative CT ABDOMEN AND PELVIS WITH CONTRAST CLINICAL INFORMATION: Abdominal pain left side. COMPARISON: CT ABDOMEN W CONTRAST (07/04/2019); CTA CHEST ABDOMEN PELVIS W CONTRAST (02/21/2019); CT ABDOMEN PELVIS W CONTRAST (01/21/2018); CT ABDOMEN PELVIS W CONTRAST (03/04/2016); PROCEDURE: Axial images through the abdomen and pelvis after the administration of 100ml omnipaque 350 intravenous contrast. Multiplanar reconstructions. At least one of the following CT dose optimization techniques were used: Automated exposure control; Adjustment of mA and/or kV according to patient size; Use of iterative reconstruction technique. FINDINGS: LUNG BASES: No significant pulmonary abnormality. No pleural effusion or pneumothorax. ABDOMEN Liver and Biliary: Liver unremarkable. Cholecystectomy. Pancreas, Spleen and Adrenals: 3 mm calcification in the uncinate process of the pancreas , stable. This appears inferior/medial to the CBD, probably due to chronic pancreatitis. I doubt distal CBD stone. CBD 7 mm, stable. Pancreas otherwise unremarkable. Spleen, adrenals unremarkable. Kidneys: 12 mm lateral mid left renal cyst with smaller inferior pole cystic lesion, unchanged perhaps due to smaller cyst, too small to characterize. Scarring lateral upper pole of the right kidney again noted. ABDOMEN AND PELVIS Bowel: No small bowel or colonic dilation or adjacent inflammation. No appendiceal dilation or inflammation. Vessels: Right common/proximal external iliac stent. No other arterial abnormalities. No aneurysm. Patent portal vein. Lymph Nodes: Lymph node medial to the pancreatic head measuring 1.4 x 3.0 cm, stable dating back 03/04/2016, benign. No other evidence of adenopathy. Peritoneum and Retroperitoneum: No free air. No ascites. PELVIS Genitourinary: Distal ureters and bladder appear normal. No pelvic masses. BODY WALL Soft Tissues: Abdominal wall hernia repair, with complex debris and air superficial to the mesh and deep to the abdominal wall measuring 12.3 cm transverse by 2.4 cm AP by 7.6 cm superoinferior dimension, slightly increased in size. This raises concern for abscess. Infiltration of the abdominal wall in this region. No fistulization to the skin is seen presently. Bones: Old healed right superior and inferior pubic rami/pubic symphyseal fractures, with plate and screw fixation of the right iliac wing extending through the SI joint, unchanged. Fusion right SI joint. Chronic compression of the central L4 vertebral body with preserved periphery. Spondylotic changes of the spine. No listhesis. Impression 1. Complex fluid and air collection deep to the abdominal wall but superficial to the mesh repair in the midline abdomen measuring 12.3 x 2.4 by 7.6 cm. While this may be due to hematoma, abscess must be considered. No fistula to the skin surface is seen presently. 2. Probable chronic pancreatitis, cholecystectomy, right renal scarring, left renal cysts, chronic right pelvic fractures with repair, chronic L4 central superior endplate compression deformity. Signed by: Trevin Walker Shawn Sign Date/Time: 07/29/2019 6:[address] Abdomen Pelvis wo Contrast Narrative CT ABDOMEN AND PELVIS WITHOUT CONTRAST CLINICAL INFORMATION: Abdominal pain, Abdominal abscess COMPARISON: CT GUIDED DRAIN ABSCESS PERITONEAL (07/30/2019); CT ABDOMEN PELVIS W CONTRAST (07/29/2019) PROCEDURE: Axial images through the abdomen and pelvis. Multiplanar reconstructions. At least one of the following CT dose optimization techniques were used: Automated exposure control; Adjustment of mA and/or kV according to patient size; Use of iterative reconstruction technique. FINDINGS: Lack of intravenous contrast typically diminishes sensitivity for assessment of solid organs and vascular structures. LUNG BASES: Trace bilateral pleural effusions, with associated small amount of atelectasis. ABDOMEN Solid organ evaluation suboptimal without contrast. Liver and Biliary: Liver appears unremarkable. Patient is post cholecystectomy. Pancreas, Spleen and Adrenals: Appear unremarkable. Kidneys: Appear unremarkable. ABDOMEN AND PELVIS Bowel: Appendix is seen on series 2, image 114 and appears unremarkable. No bowel obstruction or ileus seen. Vessels: Mild atherosclerosis. Aorta does not appear aneurysmal Lymph Nodes: No enlarged lymph nodes seen Peritoneum and Retroperitoneum: Interval placement of a percutaneous drainage catheter. Previously noted fluid collection appears to be essentially unchanged in size, measuring approximately 12.3 cm x 2.4 cm in size. PELVIS Genitourinary: Urinary bladder is mildly distended BODY WALL Soft Tissues: No significant abnormality appreciated. Bones: No acute or destructive osseous process seen. Impression Interval placement of a percutaneous drainage catheter. Previously noted fluid collection appears to be essentially unchanged in size, measuring approximately 12.3 cm x 2.4 cm in size. Signed by: Trevin Ch, Dewayne Sign Date/Time: 08/02/2019 8:06 PM MRI Lumbar Spine wo Contrast Narrative MRI LUMBAR SPINE WITHOUT CONTRAST CLINICAL INFORMATION: Lumbosacral osteoarthritis. COMPARISON: MRI LUMBAR SPINE WO CONTRAST (12/10/2017); PROCEDURE: Sagittal T2, axial T2, sagittal T1, axial T1, sagittal STIR sequences. FINDINGS: Alignment: Minimal grade 1 anterolisthesis of L5 on S1. Vertebrae and vertebral marrow signal: Mild L4 superior endplate height loss with chronic appearance. No evidence of a recent fracture. Conus and imaged portions of the caudal cord: Normal. Lumbar disc levels: L1-2: The disc is preserved. No disc herniation or significant disc bulge. The facet joints are normal. No significant spinal canal stenosis or neural foraminal stenosis. L2-3: The disc is preserved. Mild disc bulge with posterior high-intensity zone. Mild facet arthropathy. Mild spinal canal stenosis. Minimal bilateral neural foraminal stenosis. L3-4: The disc is dehydrated with minimal height loss. Mild disc bulge. Mild facet arthropathy. Mild spinal canal stenosis. Auje-ct-xgsoybiu lateral recess stenosis. Mild bilateral neural foraminal stenosis. L4-5: The disc is preserved. Minimal disc bulge. Jkep-kq-qxnnlvuo facet arthropathy. No significant spinal canal stenosis. Lwil-xl-xrhcenrm left and mild right neural foraminal stenosis. L5-S1: The disc is preserved. Minimal disc bulge. Moderate to severe facet arthropathy, left worse than right with left facet joint effusion and associated periarticular edema.. No significant spinal canal stenosis. Swng-hx-ntkgugda bilateral neural foraminal stenosis. Paraspinal musculature and paravertebral soft tissues: Normal. Impression 1. No substantial interval change. 2. No new disc herniation or high-grade stenosis. 3. Mild spinal canal stenosis at L2-3 and L3-4. 4. Multilevel pqac-bx-xhreyzrf neural foraminal stenosis. 5. Moderate to severe facet arthropathy at L5-S1, left greater than right, with associated left facet joint effusion and periarticular edema suggesting active inflammation/synovitis Signed by: Trevin Ibrahim Ryan Sign Date/Time: 08/07/2019 12:29 PM PROBLEM LIST Principal Problem: Abdominal wall abscess Active Problems: Abdominal pain, generalized History of traumatic brain injury HTN (hypertension), benign ASSESSMENT & PLAN Abdominal wall abscess ID following, antibiotic now changed to ertapenem CT abdomen 08/03/19 showed unchanged size of mass Surgery inputs noted, tentative plan is for patient to continue with antibiotic to treat in fection and follow up with Dr. Bentley will be arranged S/p PICC line placement Awaiting for OPAT to be arranged HTN Noted BP Continue amlodipine Continue to monitor BP closely PAD On plavix History of renal artery dissection Being evaluated for possible vasculitis On eliquis Normal renal function Chronic low back pain Worsening Will order MRI LS PT consult Diclofenac gel QID Continue with prn opiates Disposition: for possible discharge once OPAT is arranged Code Status: Full Code Elvi Bragg MD 08/07/2019 3:18 PM [place], Shraddha Boo PA-C - 08/07/2019 12:24 PM PST Progress Note Hospital Day: LOS: 9 days Post-Op Day: * No surgery found * Subjective This is a 58 y.o. male patient who presented to [facility] with a diagn osis of abdominal wall infection. Events Overnight: Reza remained stable. He continues to have bowel movements. His pain is mainly in the upper abdomen, and he complains of feeling bloated. Complained of a spot on his back that was bothering him, and was supposed to have an ultrasound, but he is having an MRI of his [place] mbar spine today. His labs and vitals are stable. His drain output 10 mL total. Assessment and Plan 58 year old male with PMH PAD s/p angioplasty with stent placement in iliac artery, on retort cooler cheri anticoagulation, TBI, hx C.Diff colitis, HCV infection, anxiety and depression, and mult iple abdominal surgeries to include 3 hernia repairs, [facility]. -07/30/19:CT guided abscess drainage and catheter placementsaniya Fang has infected meshfrom one on his previous hernia repairs. Patient requested thatDr. Morris updated as he is the surgeon who has performed m ost of his procedures, and he would like to have his mesh removed by him as well. Message wa s sent to the acute care surgery clinic to make appointment for patient hopefully next week. Continue to monitor drain output. Continue antibiotics per infectious disease PRN pain and nausea control Recommended plan would be to discharge patient home with a PICC line for antibiotic admi nistration, drain in place, and follow-up with Dr. Bentley for future surgical intervention planning. Medical management per hospitalist The assessment and plan was discussed with Dr. Diaz is events solutions consultant for the acute care s urgery service. Scheduled Medications amLODIPine 10 mg Oral Daily apixaban 5 mg Oral BID clopidogrel 75 mg Oral Daily diclofenac 4 g Topical 4x Daily ertapenem 1 g Intravenous Q24H gabapentin 600 mg Oral BID magnesium oxide 400 mg Oral Daily oxyCODONE 15-30 mg Oral Q3H pantoprazole 40 mg Oral QAM AC polyethylene glycol 17 g Oral Daily potassium chloride 10 mEq Oral Daily QUEtiapine 50 mg Oral BID tamsulosin 0.8 mg Oral Daily Continuous Infusions PRN Medications acetaminophen, albuterol, benzonatate, docusate sodium, HYDROmorphone, LORazepam, melatonin , methocarbamol, ondansetron, Potassium replacement - NON ICU AND Potassium AND pota ssium chloride AND potassium chloride Objective Vital Signs: BP 115/70 | Pulse 65 | Temp 36.8 C (98.3 F) (Oral) | Resp 15 | Ht 1.803 m (5' 11") | Wt 97.1 kg (214 lb 1.1 oz) | SpO2 95% | BMI 29.86 kg/m Recent Results (from the past 24 hour(s)) Basic Metabolic Panel Result Value Ref Range Na 139 135 - 145 mmol/L K 3.8 3.5 - 4.9 mmol/L Cl 105 99 - 109 mmol/L CO2 30 23 - 32 mmol/L Anion Gap 8 5 - 20 mmol/L Glucose 92 65 - 99 mg/dL BUN 15 8 - 25 mg/dL Creatinine 0.8 0.70 - 1.30 mg/dL BUN/Creatinine Ratio 19 Calcium 8.4 (L) 8.5 - 10.5 mg/dL Estimated GFR >60 >60 mL/min/1.73m2 CBC with Differential Result Value Ref Range WBC 9.19 3.80 - 11.00 K/uL RBC 3.52 (L) 4.20 - 5.70 M/uL Hemoglobin 10.4 (L) 13.2 - 17.0 g/dL Hematocrit 30.7 (L) 39.0 - 50.0 % MCV 87.4 80.0 - 100.0 fl MCH 29.7 27.0 - 34.0 pg MCHC 34.0 32.0 - 35.5 g/dL RDW-SD 52.5 37 - 53 fl Platelet Count 421 (H) 150 - 400 K/uL MPV 7.8 fl Diff Type AUTOMATED % Neutrophils 52.04 % % Lymphocytes 32.70 % Monocyte % 10.78 % Eosinophils % 3.56 % Basophils % 0.92 % Neutrophils, Absolute 4.78 1.90 - 7.40 K/uL Absolute Lymphocytes 3.00 1.00 - 3.90 K/uL Absolute Monocytes 0.99 (H) 0.00 - 0.80 K/uL Eosinophils, Absolute 0.33 0.00 - 0.50 K/uL Basophils, Absolute 0.08 0.00 - 0.10 K/uL Magnesium Result Value Ref Range Magnesium 2.3 1.7 - 2.4 mg/dL Intake/Output Summary (Last 24 hours) at 08/07/2019 1224 Last data filed at 08/07/2019 0349 Gross per 24 hour Intake 800 ml Output 10 ml Net 790 ml Physical Exam Constitutional: No distress Cardiovascular: Normal rate. Pulmonary: Effort normal. No stridor. No respiratory distress. Abdominal: Soft, no distension. Abdominal drain in place with creamy looking output in b ag. Neurological: Alert and oriented to person, place, and time. Psychiatric: He has a normal mood and affect His behavior is normal. Thought content vanessa aguillon Nursing note and vitals reviewed. Problem List Principal Problem: Abdominal wall abscess Active Problems: Abdominal pain, generalized History of traumatic brain injury HTN (hypertension), benign Signed: Shraddha Majano PA-C [facility] 08/07/2019 Portions of this chart may have been created with voice recognition software. Occasional wr soham-word or "sound-alike" substitutions may have occurred, even after review, due to the inh erent limitations of voice recognition software. Please read the chart carefully and recogni ze, using context, where these substitutions have occurred. Personal communication is reques ferny for any clarifications. Catalino Farley MD - 08/06/2019 11:49 AM PST [facility] Service: Hospitalist Progress Note Hospital Day: LOS: 8 days SUBJECTIVE Patient Summary: Mr. Cespedes is a 58 yr old man with hx of PAD, s/p angioplasty with stent placement in iliac artery, on chronic anticoagulation, TBI, hx of C. Diff colitis, HCV infection, anxiety and d epression and multiple abdominal surgery including at least 3 hernia repairs, treated back i n 07/04/19 for an abdominal wall abscess s/p ID and antibiotics, presented to the ED for ab dominal pain. CT abdomen showed a complex fluid and air collection deep into the abdominal w all. His case was discussed initially with surgery who recommended CT guided abscess drainag e. IR was consulted and patient underwent drain placement. He was also referred to ID for a ntibiotic management. His blood cultures have been negative. Culture of his abscess however has isolated E. Coli, S gordonii, and prevotella oralis. Patient was noted to have brownish fluid and air in his bag. A repeat CT abdomen on 08/02/19 showed unchanged size of the fluid collection. Patient was referred back to surgery whose impression now is possible infected mesh that might need to be removed but not urgently. His case will be discussed with Dr. Rene nguyen who performed his previous hernia repairs. Events Overnight: Patient has been stable overnight. He complains today of having pain upper abdomen, feeling bloated. Last BM was yesterday. Previous to yesterday was about 4 days ago. Patient usually goes everyday at home. Scheduled Medications amLODIPine 10 mg Oral Daily apixaban 5 mg Oral BID clopidogrel 75 mg Oral Daily ertapenem 1 g Intravenous Q24H gabapentin 600 mg Oral BID magnesium oxide 400 mg Oral Daily oxyCODONE 15-30 mg Oral Q3H pantoprazole 40 mg Oral QAM AC polyethylene glycol 17 g Oral Daily potassium chloride 10 mEq Oral Daily QUEtiapine 50 mg Oral BID tamsulosin 0.8 mg Oral Daily Continuous Infusions PRN Medications acetaminophen, albuterol, benzonatate, docusate sodium, HYDROmorphone, LORazepam, melatonin , methocarbamol, ondansetron, Potassium replacement - NON ICU AND Potassium AND pota ssium chloride AND potassium chloride OBJECTIVE Vital Signs: BP 106/74 | Pulse 75 | Temp 36.7 C (98.1 F) (Oral) | Resp 17 | Ht 1.803 m (5' 11") | Wt 97.1 kg (214 lb 1.1 oz) | SpO2 96% | BMI 29.86 kg/m Patient Vitals for the past 24 hrs: BP Temp Temp src Pulse Resp SpO2 Weight 08/06/19 0829 97.1 kg (214 lb 1.1 oz) 08/06/19 0810 106/74 08/06/19 0346 124/77 36.7 C (98.1 F) Oral 75 17 96 % 08/05/19 2322 113/65 36.7 C (98.1 F) Oral 60 18 96 % 08/05/19 1939 116/72 36.4 C (97.5 F) Oral 65 18 97 % 08/05/19 1516 120/77 36.5 C (97.7 F) Oral 70 16 97 % Intake/Output Summary (Last 24 hours) at 08/06/2019 1149 Last data filed at 08/06/2019 0829 Gross per 24 hour Intake 1840 ml Output 940 ml Net 900 ml Physical Exam Constitutional: He is oriented to person, place, and time. Middle aged man but appeared older than stated age, lying in bed not in any respiratory dis tress HENT: Head: Normocephalic and atraumatic. Mouth/Throat: Oropharynx is clear and moist. Eyes: Pupils are equal, round, and reactive to light. Conjunctivae are normal. Neck: Normal range of motion. No JVD present. Cardiovascular: Normal rate and regular rhythm. No murmur heard. Pulmonary/Chest: Effort normal and breath sounds normal. He has no wheezes. He has no rales . Abdominal: Soft. Bowel sounds are normal. There is no tenderness. + drain in place with brownish fluid output, mild abdominal distension Musculoskeletal: General: No edema. Lymphadenopathy: He has no cervical adenopathy. Neurological: He is alert and oriented to person, place, and time. No cranial nerve deficit . Skin: Skin is warm. DATA Recent Results (from the past 24 hour(s)) CBC with Differential Result Value Ref Range WBC 8.14 3.80 - 11.00 K/uL RBC 3.62 (L) 4.20 - 5.70 M/uL Hemoglobin 10.7 (L) 13.2 - 17.0 g/dL Hematocrit 31.7 (L) 39.0 - 50.0 % MCV 87.5 80.0 - 100.0 fl MCH 29.5 27.0 - 34.0 pg MCHC 33.8 32.0 - 35.5 g/dL RDW-SD 51.2 37 - 53 fl Platelet Count 426 (H) 150 - 400 K/uL MPV 7.6 fl Diff Type AUTOMATED % Neutrophils 49.87 % % Lymphocytes 34.57 % Monocyte % 10.22 % Eosinophils % 4.16 % Basophils % 1.18 % Neutrophils, Absolute 4.06 1.90 - 7.40 K/uL Absolute Lymphocytes 2.81 1.00 - 3.90 K/uL Absolute Monocytes 0.83 (H) 0.00 - 0.80 K/uL Eosinophils, Absolute 0.34 0.00 - 0.50 K/uL Basophils, Absolute 0.10 0.00 - 0.10 K/uL Basic Metabolic Panel Result Value Ref Range Na 140 135 - 145 mmol/L K 3.8 3.5 - 4.9 mmol/L Cl 107 99 - 109 mmol/L CO2 29 23 - 32 mmol/L Anion Gap 8 5 - 20 mmol/L Glucose 109 (H) 65 - 99 mg/dL BUN 13 8 - 25 mg/dL Creatinine 0.8 0.70 - 1.30 mg/dL BUN/Creatinine Ratio 16 Calcium 8.5 8.5 - 10.5 mg/dL Estimated GFR >60 >60 mL/min/1.73m2 IMAGES Recent Results (from the past 360 hour(s)) XR Chest PA and Lateral Narrative CHEST PA AND LATERAL CLINICAL INFORMATION: Cough and congestion. COMPARISON: CTA CHEST ABDOMEN PELVIS W CONTRAST (02/21/2019); SUPA C ARM GUIDANCE (02/05/2016); SUPA C ARM GUIDANCE (01/07/2016); FINDINGS: Heart size normal. No consolidation, pleural effusion, or pneumothorax. Minimal perihilar and basilar linear atelectasis. Osseous structures unremarkable. Impression No significant abnormality. Signed by: Trevin Emery, Eladio Sign Date/Time: 07/29/2019 4:[address] Abdomen Pelvis w Contrast Narrative CT ABDOMEN AND PELVIS WITH CONTRAST CLINICAL INFORMATION: Abdominal pain left side. COMPARISON: CT ABDOMEN W CONTRAST (07/04/2019); CTA CHEST ABDOMEN PELVIS W CONTRAST (02/21/2019); CT ABDOMEN PELVIS W CONTRAST (01/21/2018); CT ABDOMEN PELVIS W CONTRAST (03/04/2016); PROCEDURE: Axial images through the abdomen and pelvis after the administration of 100ml omnipaque 350 intravenous contrast. Multiplanar reconstructions. At least one of the following CT dose optimization techniques were used: Automated exposure control; Adjustment of mA and/or kV according to patient size; Use of iterative reconstruction technique. FINDINGS: LUNG BASES: No significant pulmonary abnormality. No pleural effusion or pneumothorax. ABDOMEN Liver and Biliary: Liver unremarkable. Cholecystectomy. Pancreas, Spleen and Adrenals: 3 mm calcification in the uncinate process of the pancreas , stable. This appears inferior/medial to the CBD, probably due to chronic pancreatitis. I doubt distal CBD stone. CBD 7 mm, stable. Pancreas otherwise unremarkable. Spleen, adrenals unremarkable. Kidneys: 12 mm lateral mid left renal cyst with smaller inferior pole cystic lesion, unchanged perhaps due to smaller cyst, too small to characterize. Scarring lateral upper pole of the right kidney again noted. ABDOMEN AND PELVIS Bowel: No small bowel or colonic dilation or adjacent inflammation. No appendiceal dilation or inflammation. Vessels: Right common/proximal external iliac stent. No other arterial abnormalities. No aneurysm. Patent portal vein. Lymph Nodes: Lymph node medial to the pancreatic head measuring 1.4 x 3.0 cm, stable dating back 03/04/2016, benign. No other evidence of adenopathy. Peritoneum and Retroperitoneum: No free air. No ascites. PELVIS Genitourinary: Distal ureters and bladder appear normal. No pelvic masses. BODY WALL Soft Tissues: Abdominal wall hernia repair, with complex debris and air superficial to the mesh and deep to the abdominal wall measuring 12.3 cm transverse by 2.4 cm AP by 7.6 cm superoinferior dimension, slightly increased in size. This raises concern for abscess. Infiltration of the abdominal wall in this region. No fistulization to the skin is seen presently. Bones: Old healed right superior and inferior pubic rami/pubic symphyseal fractures, with plate and screw fixation of the right iliac wing extending through the SI joint, unchanged. Fusion right SI joint. Chronic compression of the central L4 vertebral body with preserved periphery. Spondylotic changes of the spine. No listhesis. Impression 1. Complex fluid and air collection deep to the abdominal wall but superficial to the mesh repair in the midline abdomen measuring 12.3 x 2.4 by 7.6 cm. While this may be due to hematoma, abscess must be considered. No fistula to the skin surface is seen presently. 2. Probable chronic pancreatitis, cholecystectomy, right renal scarring, left renal cysts, chronic right pelvic fractures with repair, chronic L4 central superior endplate compression deformity. Signed by: Trevin Walker Shawn Sign Date/Time: 07/29/2019 6:[address] Abdomen Pelvis wo Contrast Narrative CT ABDOMEN AND PELVIS WITHOUT CONTRAST CLINICAL INFORMATION: Abdominal pain, Abdominal abscess COMPARISON: CT GUIDED DRAIN ABSCESS PERITONEAL (07/30/2019); CT ABDOMEN PELVIS W CONTRAST (07/29/2019) PROCEDURE: Axial images through the abdomen and pelvis. Multiplanar reconstructions. At least one of the following CT dose optimization techniques were used: Automated exposure control; Adjustment of mA and/or kV according to patient size; Use of iterative reconstruction technique. FINDINGS: Lack of intravenous contrast typically diminishes sensitivity for assessment of solid organs and vascular structures. LUNG BASES: Trace bilateral pleural effusions, with associated small amount of atelectasis. ABDOMEN Solid organ evaluation suboptimal without contrast. Liver and Biliary: Liver appears unremarkable. Patient is post cholecystectomy. Pancreas, Spleen and Adrenals: Appear unremarkable. Kidneys: Appear unremarkable. ABDOMEN AND PELVIS Bowel: Appendix is seen on series 2, image 114 and appears unremarkable. No bowel obstruction or ileus seen. Vessels: Mild atherosclerosis. Aorta does not appear aneurysmal Lymph Nodes: No enlarged lymph nodes seen Peritoneum and Retroperitoneum: Interval placement of a percutaneous drainage catheter. Previously noted fluid collection appears to be essentially unchanged in size, measuring approximately 12.3 cm x 2.4 cm in size. PELVIS Genitourinary: Urinary bladder is mildly distended BODY WALL Soft Tissues: No significant abnormality appreciated. Bones: No acute or destructive osseous process seen. Impression Interval placement of a percutaneous drainage catheter. Previously noted fluid collection appears to be essentially unchanged in size, measuring approximately 12.3 cm x 2.4 cm in size. Signed by: Trevin Ch Amit Sign Date/Time: 08/02/2019 8:06 PM PROBLEM LIST Principal Problem: Abdominal wall abscess Active Problems: Abdominal pain, generalized History of traumatic brain injury HTN (hypertension), benign ASSESSMENT & PLAN Abdominal wall abscess ID following, antibiotic now changed to ertapenem CT abdomen 08/03/19 showed unchanged size of mass Surgery inputs noted, tentative plan is for patient to continue with antibiotic to treat in fection and follow up with Dr. Bentley will be arranged For PICC line placement Will ask for assistance with arranging for OPAT HTN Noted BP Continue amlodipine Continue to monitor BP closely PAD On plavix History of renal artery dissection Being evaluated for possible vasculitis On eliquis Normal renal function Disposition: for possible discharge once OPAT is arranged Code Status: Full Code Elvi Bragg MD 08/06/2019 11:49 AM Elvi Farley MD - 3:07 PM PST [facility] Service: Hospitalist Progress Note Hospital Day: LOS: 7 days SUBJECTIVE Patient Summary: Mr. Cespedes is a 58 yr old man with hx of PAD, s/p angioplasty with stent placement in iliac artery, on chronic anticoagulation, TBI, hx of C. Diff colitis, HCV infection, anxiety and d epression and multiple abdominal surgery including at least 3 hernia repairs, treated back i n 07/04/19 for an abdominal wall abscess s/p ID and antibiotics, presented to the ED for ab dominal pain. CT abdomen showed a complex fluid and air collection deep into the abdominal w all. His case was discussed initially with surgery who recommended CT guided abscess drainag e. IR was consulted and patient underwent drain placement. He was also referred to ID for a ntibiotic management. His blood cultures have been negative. Culture of his abscess however has isolated E. Coli, S gordonii, and prevotella oralis. Patient was noted to have brownish fluid and air in his bag. A repeat CT abdomen on 08/02/19 showed unchanged size of the fluid collection. Patient was referred back to surgery whose impression now is possible infected mesh that might need to be removed but not urgently. His case will be discussed with Dr. Rene nguyen who performed his previous hernia repairs. Events Overnight: Patient has no complaint today. Scheduled Medications amLODIPine 10 mg Oral Daily apixaban 5 mg Oral BID clopidogrel 75 mg Oral Daily ertapenem 1 g Intravenous Q24H gabapentin 600 mg Oral BID magnesium oxide 400 mg Oral Daily oxyCODONE 15-30 mg Oral Q3H pantoprazole 40 mg Oral QAM AC potassium chloride 10 mEq Oral Daily QUEtiapine 50 mg Oral BID tamsulosin 0.8 mg Oral Daily Continuous Infusions sodium chloride 0.9% 75 mL/hr at 08/04/19 1654 PRN Medications acetaminophen, albuterol, benzonatate, HYDROmorphone, LORazepam, melatonin, methocarbamol, ondansetron, Potassium replacement - NON ICU AND [START ON 08/06/2019] Potassium AND potassium chloride AND potassium chloride OBJECTIVE Vital Signs: BP 135/74 | Pulse 68 | Temp 36.4 C (97.6 F) (Oral) | Resp 16 | Ht 1.803 m (5' 11") | Wt 97.1 kg (214 lb) | SpO2 96% | BMI 29.85 kg/m Patient Vitals for the past 24 hrs: BP Temp Temp src Pulse Resp SpO2 08/05/19 1112 135/74 36.4 C (97.6 F) Oral 68 16 96 % 08/05/19 0838 125/75 36.7 C (98 F) Oral 63 16 96 % 08/05/19 0518 129/82 36.3 C (97.3 F) Oral 62 14 97 % 08/04/19 2202 142/74 36.6 C (97.9 F) Oral 69 16 97 % 08/04/192004 124/80 36.8 C (98.2 F) Oral 67 16 97 % 08/04/19 1600 118/70 36.7 C (98 F) Oral 67 20 97 % Intake/Output Summary (Last 24 hours) at 08/05/2019 1507 Last data filed at 08/05/2019 1111 Gross per 24 hour Intake 3038 ml Output 1620 ml Net 1418 ml Physical Exam Constitutional: He is oriented to person, place, and time. Middle aged man but appeared older than stated age, not in any respiratory distress HENT: Head: Normocephalic and atraumatic. Mouth/Throat: Oropharynx is clear and moist. Eyes: Pupils are equal, round, and reactive to light. Conjunctivae are normal. Neck: Normal range of motion. No JVD present. Cardiovascular: Normal rate and regular rhythm. No murmur heard. Pulmonary/Chest: Effort normal and breath sounds normal. He has no wheezes. He has no rales . Abdominal: Soft. Bowel sounds are normal. There is no tenderness. + drain in place with brownish fluid output Musculoskeletal: General: No edema. Lymphadenopathy: He has no cervical adenopathy. Neurological: He is alert and oriented to person, place, and time. No cranial nerve deficit . Skin: Skin is warm. DATA Recent Results (from the past 24 hour(s)) CBC with Differential Result Value Ref Range WBC 7.27 3.80 - 11.00 K/uL RBC 3.55 (L) 4.20 - 5.70 M/uL Hemoglobin 10.5 (L) 13.2 - 17.0 g/dL Hematocrit 30.9 (L) 39.0 - 50.0 % MCV 87.2 80.0 - 100.0 fl MCH 29.5 27.0 - 34.0 pg MCHC 33.9 32.0 - 35.5 g/dL RDW-SD 49.4 37 - 53 fl Platelet Count 406 (H) 150 - 400 K/uL MPV 7.8 fl Diff Type AUTOMATED % Neutrophils 49.47 % % Lymphocytes 34.39 % Monocyte % 11.12 % Eosinophils % 3.78 % Basophils % 1.24 % Neutrophils, Absolute 3.60 1.90 - 7.40 K/uL Absolute Lymphocytes 2.50 1.00 - 3.90 K/uL Absolute Monocytes 0.81 (H) 0.00 - 0.80 K/uL Eosinophils, Absolute 0.28 0.00 - 0.50 K/uL Basophils, Absolute 0.09 0.00 - 0.10 K/uL Basic Metabolic Panel Result Value Ref Range Na 140 135 - 145 mmol/L K 3.5 3.5 - 4.9 mmol/L Cl 107 99 - 109 mmol/L CO2 28 23 - 32 mmol/L Anion Gap 9 5 - 20 mmol/L Glucose 97 65 - 99 mg/dL BUN 11 8 - 25 mg/dL Creatinine 0.7 0.70 - 1.30 mg/dL BUN/Creatinine Ratio 16 Calcium 8.3 (L) 8.5 - 10.5 mg/dL Estimated GFR >60 >60 mL/min/1.73m2 IMAGES Recent Results (from the past 360 hour(s)) XR Chest PA and Lateral Narrative CHEST PA AND LATERAL CLINICAL INFORMATION: Cough and congestion. COMPARISON: CTA CHEST ABDOMEN PELVIS W CONTRAST (02/21/2019); C ARM GUIDANCE (02/05/2016); SUPA C ARM GUIDANCE (01/07/2016); FINDINGS: Heart size normal. No consolidation, pleural effusion, or pneumothorax. Minimal perihilar and basilar linear atelectasis. Osseous structures unremarkable. Impression No significant abnormality. Signed by: Trevin Emery, Eladio Sign Date/Time: 07/29/2019 4:[address] Abdomen Pelvis w Contrast Narrative CT ABDOMEN AND PELVIS WITH CONTRAST CLINICAL INFORMATION: Abdominal pain left side. COMPARISON: CT ABDOMEN W CONTRAST (07/04/2019); CTA CHEST ABDOMEN PELVIS W CONTRAST (02/21/2019); CT ABDOMEN PELVIS W CONTRAST (01/21/2018); CT ABDOMEN PELVIS W CONTRAST (03/04/2016); PROCEDURE: Axial images through the abdomen and pelvis after the administration of 100ml omnipaque 350 intravenous contrast. Multiplanar reconstructions. At least one of the following CT dose optimization techniques were used: Automated exposure control; Adjustment of mA and/or kV according to patient size; Use of iterative reconstruction technique. FINDINGS: LUNG BASES: No significant pulmonary abnormality. No pleural effusion or pneumothorax. ABDOMEN Liver and Biliary: Liver unremarkable. Cholecystectomy. Pancreas, Spleen and Adrenals: 3 mm calcification in the uncinate process of the pancreas , stable. This appears inferior/medial to the CBD, probably due to chronic pancreatitis. I doubt distal CBD stone. CBD 7 mm, stable. Pancreas otherwise unremarkable. Spleen, adrenals unremarkable. Kidneys: 12 mm lateral mid left renal cyst with smaller inferior pole cystic lesion, unchanged perhaps due to smaller cyst, too small to characterize. Scarring lateral upper pole of the right kidney again noted. ABDOMEN AND PELVIS Bowel: No small bowel or colonic dilation or adjacent inflammation. No appendiceal dilation or inflammation. Vessels: Right common/proximal external iliac stent. No other arterial abnormalities. No aneurysm. Patent portal vein. Lymph Nodes: Lymph node medial to the pancreatic head measuring 1.4 x 3.0 cm, stable dating back 03/04/2016, benign. No other evidence of adenopathy. Peritoneum and Retroperitoneum: No free air. No ascites. PELVIS Genitourinary: Distal ureters and bladder appear normal. No pelvic masses. BODY WALL Soft Tissues: Abdominal wall hernia repair, with complex debris and air superficial to the mesh and deep to the abdominal wall measuring 12.3 cm transverse by 2.4 cm AP by 7.6 cm superoinferior dimension, slightly increased in size. This raises concern for abscess. Infiltration of the abdominal wall in this region. No fistulization to the skin is seen presently. Bones: Old healed right superior and inferior pubic rami/pubic symphyseal fractures, with plate and screw fixation of the right iliac wing extending through the SI joint, unchanged. Fusion right SI joint. Chronic compression of the central L4 vertebral body with preserved periphery. Spondylotic changes of the spine. No listhesis. Impression 1. Complex fluid and air collection deep to the abdominal wall but superficial to the mesh repair in the midline abdomen measuring 12.3 x 2.4 by 7.6 cm. While this may be due to hematoma, abscess must be considered. No fistula to the skin surface is seen presently. 2. Probable chronic pancreatitis, cholecystectomy, right renal scarring, left renal cysts, chronic right pelvic fractures with repair, chronic L4 central superior endplate compression deformity. Signed by: Trevin Walker Shawn Sign Date/Time: 07/29/2019 6:[address] Abdomen Pelvis wo Contrast Narrative CT ABDOMEN AND PELVIS WITHOUT CONTRAST CLINICAL INFORMATION: Abdominal pain, Abdominal abscess COMPARISON: CT GUIDED DRAIN ABSCESS PERITONEAL (07/30/2019); CT ABDOMEN PELVIS W CONTRAST (07/29/2019) PROCEDURE: Axial images through the abdomen and pelvis. Multiplanar reconstructions. At least one of the following CT dose optimization techniques were used: Automated exposure control; Adjustment of mA and/or kV according to patient size; Use of iterative reconstruction technique. FINDINGS: Lack of intravenous contrast typically diminishes sensitivity for assessment of solid organs and vascular structures. LUNG BASES: Trace bilateral pleural effusions, with associated small amount of atelectasis. ABDOMEN Solid organ evaluation suboptimal without contrast. Liver and Biliary: Liver appears unremarkable. Patient is post cholecystectomy. Pancreas, Spleen and Adrenals: Appear unremarkable. Kidneys: Appear unremarkable. ABDOMEN AND PELVIS Bowel: Appendix is seen on series 2, image 114 and appears unremarkable. No bowel obstruction or ileus seen. Vessels: Mild atherosclerosis. Aorta does not appear aneurysmal Lymph Nodes: No enlarged lymph nodes seen Peritoneum and Retroperitoneum: Interval placement of a percutaneous drainage catheter. Previously noted fluid collection appears to be essentially unchanged in size, measuring approximately 12.3 cm x 2.4 cm in size. PELVIS Genitourinary: Urinary bladder is mildly distended BODY WALL Soft Tissues: No significant abnormality appreciated. Bones: No acute or destructive osseous process seen. Impression Interval placement of a percutaneous drainage catheter. Previously noted fluid collection appears to be essentially unchanged in size, measuring approximately 12.3 cm x 2.4 cm in size. Signed by: Trevin Ch Amit Sign Date/Time: 08/02/2019 8:06 PM PROBLEM LIST Principal Problem: Abdominal wall abscess Active Problems: Abdominal pain, generalized History of traumatic brain injury HTN (hypertension), benign ASSESSMENT & PLAN Abdominal wall abscess ID following, antibiotic now changed to ertapenem CT abdomen showed unchanged size of mass Surgery inputs noted, tentative plan is for patient to continue with antibiotic to treat in fection and follow up with Dr. Bentley will be arranged HTN Noted BP Continue amlodipine Continue to monitor BP closely PAD On plavix History of renal artery dissection Being evaluated for possible vasculitis On eliquis Normal renal function Disposition: for possible discharge once OPAT is arranged Code Status: Full Code Elvi Bragg MD 08/05/2019 3:07 PM Renetta Dale RN - 1 10/05/2018 12:03 PM PSTCp visit per MD referral for this 58 yr old gentleman with an abdomina l wall abscess and hx of TBI. Pts S.O. Teodora at bedside where she has been for the last week . Both pt and partner receptive to visit from CP. Teodora eagerly tells me the medical journey that Wade has had. She has been by his side during past 8 years of medical problems. She h as her own health issues including recent back surgery. Wade's TBI has left Teodora with incr eased responsibility and care giving roles. Other than her daughter, granddaughter and her s on who has Asperger who lives at home they have no other real support in [place] where the y live. Teodora expresses deep katty that has gotten her through very difficult times. She is grateful for all the care and compassion form all the staff at [facility]. She sees blessings i n the midst of so many medical problems. The pt and S.O. had incurred loss on top of loss in cluding feeling so of abandonment from family members and financial hardships. Time spent in active supportive listening and validation of feelings. I asked probing questions to evoke expressing feelings and explored these with S.O. Prayer offered and accepted. Specifically f or housing and upcoming medical procedures. Appreciative of CP visit. Chaplain Renetta Currie Shannan Pastrana MD - 08/05/2019 11:08 AM PSTFormatting of this note might be di fferent from the original. [facility] Service: Infectious Diseases Progress Note Hospital Day: LOS: 7 days Post-Op Day: * No surgery found * CC: follow up on infection and antibiotic therapy SUBJECTIVE/OVERNIGHT EVENTS The patient remains on treatment with antibiotics. No acute events over last 24 hours are reported. REVIEW OF SYSTEMS: feels better; tolerating PO MEDICATIONS: Reviewed PHYSICAL EXAM Vital Signs: BP 125/75 | Pulse 63 | Temp 36.7 C (98 F) (Oral) | Resp 16 | Ht 1.803 m (5' 11") | Wt 97.1 kg (214 lb) | SpO2 96% | BMI 29.85 kg/m Focused exam shows: General exam: No distress, cooperative with exam. HEENT: sclera non-icteric, no visible oral thrush Cardiovascular: regular rate and rhythm Lungs: no tachypnea, clear breath sounds. Mildly decreased at bases Abdomen: drainage tube in place; no surrounding cellulitis Extremities/MSK: No edema, no joint effusions Skin: No lesions, normal turgor Neurologic: Awake, cranial nerves intact. Follows commands. LABS: MICRO Order Status: Completed Specimen: Peripheral Blood Updated: 08/05/19605 Special Requests LEFT AC Special Requests Testing performed at [facility];[address] [place] [address] 36676 RESULT NO GROWTH 6 DAYS RESULT Testing performed at [facility], [address] [place] [address] [id number] Comment: Testing performed at [facility], [address] [place] [address] 07842 Culture, Blood [[id number]] Collected: 07/29/192222 Order Status: Completed Specimen: Peripheral Blood Updated: 08/05/19605 Special Requests RIGHT HAND Special Requests Testing performed at [facility];[address] [place] [address] 13722 RESULT NO GROWTH 6 DAYS RESULT Testing performed at [facility], [address] [place] [address] 20930 Comment: Testing performed at [facility], [address] [place] [address] 29998 Culture, Blood [[id number]] Collected: 07/29/192037 Order Status: Completed Specimen: Peripheral Blood Updated: 08/05/19605 Special Requests LAC Special Requests Testing performed at [facility];[address] [place] [address] 28215 RESULT NO GROWTH 6 DAYS RESULT Testing performed at [facility], [address] [place] [address] 89548 Comment: Testing performed at [facility], [address] [place] [address] [id number] Culture, Blood [[id number]] Collected: 07/29/19 1910 Order Status: Canceled Specimen: Peripheral Blood Culture, Body Fluid Sterile [[id number]] (Abnormal) Collected: 07/30/19 1129 Order Status: Completed Specimen: Body Fluid from Abscess Updated: 08/03/19 0638 Gram Stain Result -- 4+ WBC'S SEEN Gram Stain Result -- 1+ GRAM POSITIVE COCCI Gram Stain Result -- 3+ GRAM NEGATIVE RODS RESULT --Abnormal 2+ ESCHERICHIA COLI Abnormal RESULT -- 2+ MIXED GRAM POSITIVE DEEPA RESULT -- 2+ MIXED ANAEROBIC DEEPA RESULT Testing performed at [facility], [address] [place] [address] 36461 Susceptibility Escherichia coli (1) Antibiotic Interpretation Vitek 2XL Method Status Ampicillin Sensitive SUSCEPTIBLE ANDREW Final Ampicillin + Sulbactam Sensitive SUSCEPTIBLE ANDREW Final Cefepime Sensitive SUSCEPTIBLE ANDREW Final Cefoxitin Sensitive SUSCEPTIBLE ANDREW Final Ceftazidime Sensitive SUSCEPTIBLE ANDREW Final Ceftriaxone Sensitive SUSCEPTIBLE ANDREW Final Ciprofloxacin Sensitive SUSCEPTIBLE ANDREW Final Gentamicin Sensitive SUSCEPTIBLE ANDREW Final Levofloxacin Sensitive SUSCEPTIBLE ANDREW Final Tobramycin Sensitive SUSCEPTIBLE ANDREW Final Trimethoprim + Sulfamethoxazole Sensitive SUSCEPTIBLE ANDREW Final Testing performed at [facility], [address] [place] [address] 36010 Culture, Urine [[id number]] Collected: 07/29/192038 Order Status: Completed Specimen: Urine, Clean Catch Updated: 07/31/19 1140 RESULT NO GROWTH RESULT Testing performed at [facility], [address] [place] [address] 19380 Comment: Testing performed at [facility], [address] [place] [address] 52081 Flu Swab Collection [[id number]] Collected: 07/29/19 1630 Order Status: Completed Specimen: Tissue from Nasopharynx Updated: 07/29/19 1637 Collection SPECIMEN RECEIVED IN LAB Comment: Testing performed at [facility];[address] [place] [address] 59056 Influenza A and B RNA, NAAT [[id number]] Collected: 07/29/19 1656 Order Status: Completed Updated: 07/29/19 1724 Influenza A NEGATIVE Influenza B NEGATIVE Comment: Testing performed by Molecular Methodology Testing performed at [facility];[address] [place] [address] 90468 MRSA NAAT [[id number]] Collected: 07/29/19 2257 Order Status: Completed Specimen: Tissue from Nares Updated: 07/30/19 0023 SOURCE: NARES(NOSE) Result NEGATIVE Comment: Testing performed at [facility];[address] [place] [address];[place] [address] All labs were reviewed.Data: Recent Results (from the past 24 hour(s)) CBC with Differential Result Value Ref Range WBC 7.27 3.80 - 11.00 K/uL RBC 3.55 (L) 4.20 - 5.70 M/uL Hemoglobin 10.5 (L) 13.2 - 17.0 g/dL Hematocrit 30.9 (L) 39.0 - 50.0 % MCV 87.2 80.0 - 100.0 fl MCH 29.5 27.0 - 34.0 pg MCHC 33.9 32.0 - 35.5 g/dL RDW-SD 49.4 37 - 53 fl Platelet Count 406 (H) 150 - 400 K/uL MPV 7.8 fl Diff Type AUTOMATED % Neutrophils 49.47 % % Lymphocytes 34.39 % Monocyte % 11.12 % Eosinophils % 3.78 % Basophils % 1.24 % Neutrophils, Absolute 3.60 1.90 - 7.40 K/uL Absolute Lymphocytes 2.50 1.00 - 3.90 K/uL Absolute Monocytes 0.81 (H) 0.00 - 0.80 K/uL Eosinophils, Absolute 0.28 0.00 - 0.50 K/uL Basophils, Absolute 0.09 0.00 - 0.10 K/uL Basic Metabolic Panel Result Value Ref Range Na 140 135 - 145 mmol/L K 3.5 3.5 - 4.9 mmol/L Cl 107 99 - 109 mmol/L CO2 28 23 - 32 mmol/L Anion Gap 9 5 - 20 mmol/L Glucose 97 65 - 99 mg/dL BUN 11 8 - 25 mg/dL Creatinine 0.7 0.70 - 1.30 mg/dL BUN/Creatinine Ratio 16 Calcium 8.3 (L) 8.5 - 10.5 mg/dL Estimated GFR >60 >60 mL/min/1.73m2 CT abd/pelvis 08/02: IMPRESSION: Interval placement of a percutaneous drainage catheter. Previously noted fluid collection appears to be essentially unchanged in size, measuring approximately 12.3 cm x 2.4 cm in size. Problem List: Principal Problem: Abdominal wall abscess Active Problems: Abdominal pain, generalized History of traumatic brain injury HTN (hypertension), benign ASSESSMENT & PLAN The patient is a 58 y.o.-year-old male with the following problems: Abdominal wall abscess -This is in the clinical context of a patient with history of traumatic brain injury, comp angy history of abdominal surgeries including hernia repair with mesh. From documentation, h is last surgery pertaining to the hernia was done on 11/2016 and that he had been under the c are of Dr. Jamie Bentley, [facility] surgery -He had been previously under the care of Dr. Rd Busby, [facility] but he and his travis thao indicate wanting to continue Infectious Diseases under [facility] at this time -Patient is not septic -He has history of penicillin allergy; although anaphylaxis is listed as a reaction in his chart, he really does not know what happened. His indicates that he had tolerated cep halexin previously with no adverse reaction -CT of the abdomen and pelvis on this admission indicate that the abscess is superficial to the mesh -Dr. aCldwell, Surgery, had been consulted from the ER; on his recommendation, patient has undergone CT-guided abscess drainage under IR with drain in place. Percutaneous drain in p lace was slightly pulled out; reevaluated by IR and in correct position -Follow up CT showed unchanged fluid collection; no overt fistulous tract -Abscess culture grew E coli, quinolone S, mixed anaerobes and mixed Gram positive deepa. Blood cultures with no growth to date. MRSA nasal PCR negative -07/04 wound culture grew E. coli, Streptococcus gordonii and 2+ Prevotella oralis Recommendations: Growing E coli now with history of polymicrobial infection High risk patient given multiple surgeries in the past and unchanged size of fluid collecti on. Favor IV antibiotics for a few weeks and ultimately follow up with Dr. Bentley who is famil y with his case. Per surgery team, no immediate interventions planned. Will place PICC line. Dictation software, [employer], used which may contain error for similar sounding words even af ter review. Personal communication requested for any clarification. Portions of this chart may have been copied from previous notes for continuity of care purp yun Pastrana MD Infectious Diseases 08/05/2019 Roderick Flores, ASSOCIATE SCHOOL PSYCHOLOGIST - 08/05/2019 8:30 AM PSTFormatting of this note might be different from the leidy ginal. Progress Note Hospital Day: LOS: 7 days Post-Op Day: * No surgery found * Subjective This is a 58 y.o. male patient who presented to [facility] with a diagn osis of abdominal wall infection. Events Overnight: Reza had an uneventful night auditor, he reports not been able to sleep much last night. His WBC continues to be stable at 7.27, he has been afebrile and hemodynamically stable. D enies to have cream looking drainage and gas in drainage back. Assessment and Plan 58 year old male with PMH PAD s/p angioplasty with stent placement in iliac artery, on retort cooler cheri anticoagulation, TBI, hx C.Diff colitis, HCV infection, anxiety and depression, and mult iple abdominal surgeries to include 3 hernia repairs, [facility]. -07/30/19:CT guided abscess drainage and catheter placementby IR Patient likely has infected mesh from one on his previous hernia repairs. Patient requested that Dr. Bentley be updated as he is the surgeon who has performed mos t of his procedures, and he would like to have his mesh removed by him as well. Message was sent to the acute care surgery clinic to make appointment for patient hopefully next week. Continue to monitor drain output. Continue antibiotics per infectious disease PRN pain and nausea control Recommended plan would be to discharge patient home with a PICC line for antibiotic admi nistration, drain in place, and follow-up with Dr. Bentley for future surgical intervention planning. Medical management per hospitalist The patient was seen with and assessment/plan was discussed with Dr. Diaz is on isabella l for the acute care surgery service. Scheduled Medications amLODIPine 10 mg Oral Daily apixaban 5 mg Oral BID clopidogrel 75 mg Oral Daily ertapenem 1 g Intravenous Q24H gabapentin 600 mg Oral BID magnesium oxide 400 mg Oral Daily oxyCODONE 15-30 mg Oral Q3H pantoprazole 40 mg Oral QAM AC potassium chloride 10 mEq Oral Daily QUEtiapine 50 mg Oral BID tamsulosin 0.8 mg Oral Daily Continuous Infusions PRN Medications acetaminophen, albuterol, benzonatate, HYDROmorphone, LORazepam, melatonin, methocarbamol, ondansetron, Potassium replacement - NON ICU AND [START ON 08/06/2019] Potassium AND potassium chloride AND potassium chloride Objective Vital Signs: BP 120/77 | Pulse 70 | Temp 36.5 C (97.7 F) (Oral) | Resp 16 | Ht 1.803 m (5' 11") | Wt 97.1 kg (214 lb) | SpO2 97% | BMI 29.85 kg/m Recent Results (from the past 24 hour(s)) CBC with Differential Result Value Ref Range WBC 7.27 3.80 - 11.00 K/uL RBC 3.55 (L) 4.20 - 5.70 M/uL Hemoglobin 10.5 (L) 13.2 - 17.0 g/dL Hematocrit 30.9 (L) 39.0 - 50.0 % MCV 87.2 80.0 - 100.0 fl MCH 29.5 27.0 - 34.0 pg MCHC 33.9 32.0 - 35.5 g/dL RDW-SD 49.4 37 - 53 fl Platelet Count 406 (H) 150 - 400 K/uL MPV 7.8 fl Diff Type AUTOMATED % Neutrophils 49.47 % % Lymphocytes 34.39 % Monocyte % 11.12 % Eosinophils % 3.78 % Basophils % 1.24 % Neutrophils, Absolute 3.60 1.90 - 7.40 K/uL Absolute Lymphocytes 2.50 1.00 - 3.90 K/uL Absolute Monocytes 0.81 (H) 0.00 - 0.80 K/uL Eosinophils, Absolute 0.28 0.00 - 0.50 K/uL Basophils, Absolute 0.09 0.00 - 0.10 K/uL Basic Metabolic Panel Result Value Ref Range Na 140 135 - 145 mmol/L K 3.5 3.5 - 4.9 mmol/L Cl 107 99 - 109 mmol/L CO2 28 23 - 32 mmol/L Anion Gap 9 5 - 20 mmol/L Glucose 97 65 - 99 mg/dL BUN 11 8 - 25 mg/dL Creatinine 0.7 0.70 - 1.30 mg/dL BUN/Creatinine Ratio 16 Calcium 8.3 (L) 8.5 - 10.5 mg/dL Estimated GFR >60 >60 mL/min/1.73m2 Intake/Output Summary (Last 24 hours) at 08/05/2019 1646 Last data filed at 08/05/2019 1515 Gross per 24 hour Intake 2648 ml Output 2020 ml Net 628 ml Physical Exam Constitutional: No distress Cardiovascular: Normal rate. Pulmonary: Effort normal. No stridor. No respiratory distress. Abdominal: Soft. no distension. Abdominal drain in place creamy looking output mixed wit h gas. Neurological: Alert and oriented to person, place, and time. Psychiatric: He has a normal mood and affect His behavior is normal. Thought content vanessa aguillon Nursing note and vitals reviewed. Problem List Principal Problem: Abdominal wall abscess Active Problems: Abdominal pain, generalized History of traumatic brain injury HTN (hypertension), benign Signed: BECKIE Mendenhall [facility] Trauma and Acute Care Surgery Portions of this chart may have been created with voice recognition software. Occasional wr soham-word or "sound-alike" substitutions may have occurred, even after review, due to the inh erent limitations of voice recognition software. Please read the chart carefully and recogni ze, using context, where these substitutions have occurred. Personal communication is reques ferny for any clarifications. Associated attestation - Myles Valencia MD - 08/15/2019 3:35 PM PSTGENERAL SURGERY / LC CHOPRA PROGRESS NOTE The mid-level provider made rounds on this patient in my presence. Physical examination per formed by advanced practice provider in my presence. Plan made with my direct input. I agree with the assessment and plan as written. MD Yemi Hawkins Jennifer, MD - 08/04/2019 3:08 PM PST [facility] Service: Hospitalist Progress Note Hospital Day: LOS: 6 days SUBJECTIVE Patient Summary: Mr. Cespedes is a 58 yr old man with hx of PAD, s/p angioplasty with stent placement in iliac artery, on chronic anticoagulation, TBI, hx of C. Diff colitis, HCV infection, anxiety and d epression and multiple abdominal surgery including at least 3 hernia repairs, treated back i n 07/04/19 for an abdominal wall abscess s/p ID and antibiotics, presented to the ED for ab dominal pain. CT abdomen showed a complex fluid and air collection deep into the abdominal w all. His case was discussed initially with surgery who recommended CT guided abscess drainag e. IR was consulted and patient underwent drain placement. He was also referred to ID for a ntibiotic management. His blood cultures have been negative. Culture of his abscess however has isolated E. Coli, S gordonii, and prevotella oralis. Patient was noted to have brownish fluid and air in his bag. A repeat CT abdomen on 08/02/19 showed unchanged size of the fluid collection. Events Overnight: Patient has no complaint today, no recurrence of abdominal pain. Scheduled Medications amLODIPine 10 mg Oral Daily apixaban 5 mg Oral BID clopidogrel 75 mg Oral Daily gabapentin 600 mg Oral BID levoFLOXacin 750 mg Intravenous Daily metroNIDAZOLE 500 mg Intravenous 3 times per day oxyCODONE 15-30 mg Oral Q3H pantoprazole 40 mg Oral QAM AC QUEtiapine 50 mg Oral BID tamsulosin 0.8 mg Oral Daily Continuous Infusions sodium chloride 0.9% 75 mL/hr at 08/04/19 0102 PRN Medications acetaminophen, albuterol, benzonatate, HYDROmorphone, LORazepam, melatonin, methocarbamol, ondansetron OBJECTIVE Vital Signs: BP 110/66 | Pulse 65 | Temp 36.6 C (97.9 F) (Oral) | Resp 16 | Ht 1.803 m (5' 11") | Wt 97.1 kg (214 lb) | SpO2 97% | BMI 29.85 kg/m Patient Vitals for the past 24 hrs: BP Temp Temp src Pulse Resp SpO2 08/04/19 1247 110/66 36.6 C (97.9 F) Oral 65 16 97 % 08/04/19 0801 119/69 36.8 C (98.2 F) Oral 67 16 97 % 08/04/19 0423 122/67 36.8 C (98.3 F) Oral 16 08/04/19 0042 130/78 36.7 C (98 F) Oral 75 18 96 % 08/03/19 1959 109/74 36.5 C (97.7 F) Oral 81 18 98 % 08/03/19 1543 122/80 36.6 C (97.8 F) Oral 75 18 99 % Intake/Output Summary (Last 24 hours) at 08/04/2019 1508 Last data filed at 08/04/2019 1248 Gross per 24 hour Intake 620 ml Output 1950 ml Net -1330 ml Physical Exam Constitutional: He is oriented to person, place, and time and well-developed, well-nourishe d, and in no distress. HENT: Head: Normocephalic and atraumatic. Mouth/Throat: Oropharynx is clear and moist. Eyes: Pupils are equal, round, and reactive to light. Conjunctivae are normal. Neck: Normal range of motion. No JVD present. Cardiovascular: Normal rate and regular rhythm. No murmur heard. Pulmonary/Chest: Effort normal and breath sounds normal. He has no wheezes. He has no rales . Abdominal: Soft. Bowel sounds are normal. There is no tenderness. + drain in place with brownish fluid output Musculoskeletal: General: No edema. Lymphadenopathy: He has no cervical adenopathy. Neurological: He is alert and oriented to person, place, and time. No cranial nerve deficit . Skin: Skin is warm. DATA Recent Results (from the past 24 hour(s)) CBC with Differential Result Value Ref Range WBC 8.20 3.80 - 11.00 K/uL RBC 3.93 (L) 4.20 - 5.70 M/uL Hemoglobin 11.7 (L) 13.2 - 17.0 g/dL Hematocrit 34.4 (L) 39.0 - 50.0 % MCV 87.4 80.0 - 100.0 fl MCH 29.7 27.0 - 34.0 pg MCHC 34.0 32.0 - 35.5 g/dL RDW-SD 51.2 37 - 53 fl Platelet Count 448 (H) 150 - 400 K/uL MPV 7.9 fl Diff Type AUTOMATED % Neutrophils 51.10 % % Lymphocytes 34.39 % Monocyte % 9.46 % Eosinophils % 4.01 % Basophils % 1.04 % Neutrophils, Absolute 4.19 1.90 - 7.40 K/uL Absolute Lymphocytes 2.82 1.00 - 3.90 K/uL Absolute Monocytes 0.78 0.00 - 0.80 K/uL Eosinophils, Absolute 0.33 0.00 - 0.50 K/uL Basophils, Absolute 0.09 0.00 - 0.10 K/uL Comprehensive Metabolic Panel Result Value Ref Range Na 141 135 - 145 mmol/L K 3.7 3.5 - 4.9 mmol/L Cl 108 99 - 109 mmol/L CO2 27 23 - 32 mmol/L Anion Gap 10 5 - 20 mmol/L Glucose 98 65 - 99 mg/dL BUN 13 8 - 25 mg/dL Creatinine 0.8 0.70 - 1.30 mg/dL BUN/Creatinine Ratio 16 Calcium 8.6 8.5 - 10.5 mg/dL Protein, Total 7.2 6.3 - 8.2 g/dL Albumin 2.8 (L) 3.6 - 5.0 g/dL Globulin 4.4 1.3 - 4.9 g/dL A/G Ratio 0.6 (L) 1.0 - 2.4 BILIRUBIN, TOTAL 0.1 0.1 - 1.5 mg/dL ALK PHOS 77 35 - 115 U/L AST 16 10 - 45 U/L ALT 14 10 - 65 U/L Estimated GFR >60 >60 mL/min/1.73m2 Magnesium Result Value Ref Range Magnesium 2.0 1.7 - 2.4 mg/dL IMAGES Recent Results (from the past 360 hour(s)) XR Chest PA and Lateral Narrative CHEST PA AND LATERAL CLINICAL INFORMATION: Cough and congestion. COMPARISON: CTA CHEST ABDOMEN PELVIS W CONTRAST (02/21/2019); SUPA C ARM GUIDANCE (02/05/2016); SUPA C ARM GUIDANCE (01/07/2016); FINDINGS: Heart size normal. No consolidation, pleural effusion, or pneumothorax. Minimal perihilar and basilar linear atelectasis. Osseous structures unremarkable. Impression No significant abnormality. Signed by: Trevin Emery Gregory Sign Date/Time: 07/29/2019 4:[address] Abdomen Pelvis w Contrast Narrative CT ABDOMEN AND PELVIS WITH CONTRAST CLINICAL INFORMATION: Abdominal pain left side. COMPARISON: CT ABDOMEN W CONTRAST (07/04/2019); CTA CHEST ABDOMEN PELVIS W CONTRAST (02/21/2019); CT ABDOMEN PELVIS W CONTRAST (01/21/2018); CT ABDOMEN PELVIS W CONTRAST (03/04/2016); PROCEDURE: Axial images through the abdomen and pelvis after the administration of 100ml omnipaque 350 intravenous contrast. Multiplanar reconstructions. At least one of the following CT dose optimization techniques were used: Automated exposure control; Adjustment of mA and/or kV according to patient size; Use of iterative reconstruction technique. FINDINGS: LUNG BASES: No significant pulmonary abnormality. No pleural effusion or pneumothorax. ABDOMEN Liver and Biliary: Liver unremarkable. Cholecystectomy. Pancreas, Spleen and Adrenals: 3 mm calcification in the uncinate process of the pancreas , stable. This appears inferior/medial to the CBD, probably due to chronic pancreatitis. I doubt distal CBD stone. CBD 7 mm, stable. Pancreas otherwise unremarkable. Spleen, adrenals unremarkable. Kidneys: 12 mm lateral mid left renal cyst with smaller inferior pole cystic lesion, unchanged perhaps due to smaller cyst, too small to characterize. Scarring lateral upper pole of the right kidney again noted. ABDOMEN AND PELVIS Bowel: No small bowel or colonic dilation or adjacent inflammation. No appendiceal dilation or inflammation. Vessels: Right common/proximal external iliac stent. No other arterial abnormalities. No aneurysm. Patent portal vein. Lymph Nodes: Lymph node medial to the pancreatic head measuring 1.4 x 3.0 cm, stable dating back 03/04/2016, benign. No other evidence of adenopathy. Peritoneum and Retroperitoneum: No free air. No ascites. PELVIS Genitourinary: Distal ureters and bladder appear normal. No pelvic masses. BODY WALL Soft Tissues: Abdominal wall hernia repair, with complex debris and air superficial to the mesh and deep to the abdominal wall measuring 12.3 cm transverse by 2.4 cm AP by 7.6 cm superoinferior dimension, slightly increased in size. This raises concern for abscess. Infiltration of the abdominal wall in this region. No fistulization to the skin is seen presently. Bones: Old healed right superior and inferior pubic rami/pubic symphyseal fractures, with plate and screw fixation of the right iliac wing extending through the SI joint, unchanged. Fusion right SI joint. Chronic compression of the central L4 vertebral body with preserved periphery. Spondylotic changes of the spine. No listhesis. Impression 1. Complex fluid and air collection deep to the abdominal wall but superficial to the mesh repair in the midline abdomen measuring 12.3 x 2.4 by 7.6 cm. While this may be due to hematoma, abscess must be considered. No fistula to the skin surface is seen presently. 2. Probable chronic pancreatitis, cholecystectomy, right renal scarring, left renal cysts, chronic right pelvic fractures with repair, chronic L4 central superior endplate compression deformity. Signed by: Trevin Walker, Keyur Sign Date/Time: 07/29/2019 6:[address] Abdomen Pelvis wo Contrast Narrative CT ABDOMEN AND PELVIS WITHOUT CONTRAST CLINICAL INFORMATION: Abdominal pain, Abdominal abscess COMPARISON: CT GUIDED DRAIN ABSCESS PERITONEAL (07/30/2019); CT ABDOMEN PELVIS W CONTRAST (07/29/2019) PROCEDURE: Axial images through the abdomen and pelvis. Multiplanar reconstructions. At least one of the following CT dose optimization techniques were used: Automated exposure control; Adjustment of mA and/or kV according to patient size; Use of iterative reconstruction technique. FINDINGS: Lack of intravenous contrast typically diminishes sensitivity for assessment of solid organs and vascular structures. LUNG BASES: Trace bilateral pleural effusions, with associated small amount of atelectasis. ABDOMEN Solid organ evaluation suboptimal without contrast. Liver and Biliary: Liver appears unremarkable. Patient is post cholecystectomy. Pancreas, Spleen and Adrenals: Appear unremarkable. Kidneys: Appear unremarkable. ABDOMEN AND PELVIS Bowel: Appendix is seen on series 2, image 114 and appears unremarkable. No bowel obstruction or ileus seen. Vessels: Mild atherosclerosis. Aorta does not appear aneurysmal Lymph Nodes: No enlarged lymph nodes seen Peritoneum and Retroperitoneum: Interval placement of a percutaneous drainage catheter. Previously noted fluid collection appears to be essentially unchanged in size, measuring approximately 12.3 cm x 2.4 cm in size. PELVIS Genitourinary: Urinary bladder is mildly distended BODY WALL Soft Tissues: No significant abnormality appreciated. Bones: No acute or destructive osseous process seen. Impression Interval placement of a percutaneous drainage catheter. Previously noted fluid collection appears to be essentially unchanged in size, measuring approximately 12.3 cm x 2.4 cm in size. Signed by: Trevin Ch, Dewayne Sign Date/Time: 08/02/2019 8:06 PM PROBLEM LIST Principal Problem: Abdominal wall abscess Active Problems: Abdominal pain, generalized History of traumatic brain injury HTN (hypertension), benign ASSESSMENT & PLAN Abdominal wall abscess ID following, currently remains on levaquin and flagyl IV CT abdomen showed unchanged size of mass Surgery inputs noted, will discuss with Dr. Bentley when he becomes available HTN Noted BP Continue amlodipine Continue to monitor BP closely PAD On plavix History of renal artery dissection Being evaluated for possible vasculitis On eliquis Normal renal function Disposition: pending Code Status: Full Code Elvi Bragg MD 08/04/2019 3:08 PM Harshad Flores, [facility] - 08/04/2019 10:00 AM PST Progress Note Hospital Day: LOS: 6 days Post-Op Day: * No surgery found * Subjective This is a 58 y.o. male patient who presented to [facility] with a diagn osis of abdominal wall infection. Events Overnight: Reza reports an uneventful night, he had approximately 60 cc of output on abdominal lewis in, this was mostly thick creamy brown drainage, nursing also noted gas in the drain bag. W BC this morning is stable at 8.20. Assessment and Plan 58 year old male with PMH PAD s/p angioplasty with stent placement in iliac artery, on retort cooler cheri anticoagulation, TBI, hx C.Diff colitis, HCV infection, anxiety and depression, and mult iple abdominal surgeries to include 3 hernia repairs, presents to [facility] with abdominal wall i nfection/abscess. -07/30/19: CT guided abscess drainage and catheter placement by IR Patient likely has infected mesh from one on his previous hernia repairs. Patient requested that we discuss his case with Dr. Bentley who is a surgeon that has pe rformed most of his procedures, we are unable to discuss the patient's situation today. We will reach him in the morning and discussed the patient's case and possible surgical course. Continue antibiotics per infectious disease PRN pain and nausea control Medical management per hospitalist The patient was seen with and assessment/plan was discussed with Dr. Valencia who is events solutions consultant for the acute care surgery service. Scheduled Medications amLODIPine 10 mg Oral Daily apixaban 5 mg Oral BID clopidogrel 75 mg Oral Daily gabapentin 600 mg Oral BID levoFLOXacin 750 mg Intravenous Daily metroNIDAZOLE 500 mg Intravenous 3 times per day oxyCODONE 15-30 mg Oral Q3H pantoprazole 40 mg Oral QAM AC QUEtiapine 50 mg Oral BID tamsulosin 0.8 mg Oral Daily Continuous Infusions sodium chloride 0.9% 75 mL/hr at 08/04/19 1654 PRN Medications acetaminophen, albuterol, benzonatate, HYDROmorphone, LORazepam, melatonin, methocarbamol, ondansetron Objective Vital Signs: BP 118/70 | Pulse 67 | Temp 36.7 C (98 F) (Oral) | Resp 20 | Ht 1.803 m (5' 11") | Wt 97.1 kg (214 lb) | SpO2 97% | BMI 29.85 kg/m Recent Results (from the past 24 hour(s)) CBC with Differential Result Value Ref Range WBC 8.20 3.80 - 11.00 K/uL RBC 3.93 (L) 4.20 - 5.70 M/uL Hemoglobin 11.7 (L) 13.2 - 17.0 g/dL Hematocrit 34.4 (L) 39.0 - 50.0 % MCV 87.4 80.0 - 100.0 fl MCH 29.7 27.0 - 34.0 pg MCHC 34.0 32.0 - 35.5 g/dL RDW-SD 51.2 37 - 53 fl Platelet Count 448 (H) 150 - 400 K/uL MPV 7.9 fl Diff Type AUTOMATED % Neutrophils 51.10 % % Lymphocytes 34.39 % Monocyte % 9.46 % Eosinophils % 4.01 % Basophils % 1.04 % Neutrophils, Absolute 4.19 1.90 - 7.40 K/uL Absolute Lymphocytes 2.82 1.00 - 3.90 K/uL Absolute Monocytes 0.78 0.00 - 0.80 K/uL Eosinophils, Absolute 0.33 0.00 - 0.50 K/uL Basophils, Absolute 0.09 0.00 - 0.10 K/uL Comprehensive Metabolic Panel Result Value Ref Range Na 141 135 - 145 mmol/L K 3.7 3.5 - 4.9 mmol/L Cl 108 99 - 109 mmol/L CO2 27 23 - 32 mmol/L Anion Gap 10 5 - 20 mmol/L Glucose 98 65 - 99 mg/dL BUN 13 8 - 25 mg/dL Creatinine 0.8 0.70 - 1.30 mg/dL BUN/Creatinine Ratio 16 Calcium 8.6 8.5 - 10.5 mg/dL Protein, Total 7.2 6.3 - 8.2 g/dL Albumin 2.8 (L) 3.6 - 5.0 g/dL Globulin 4.4 1.3 - 4.9 g/dL A/G Ratio 0.6 (L) 1.0 - 2.4 BILIRUBIN, TOTAL 0.1 0.1 - 1.5 mg/dL ALK PHOS 77 35 - 115 U/L AST 16 10 - 45 U/L ALT 14 10 - 65 U/L Estimated GFR >60 >60 mL/min/1.73m2 Magnesium Result Value Ref Range Magnesium 2.0 1.7 - 2.4 mg/dL Intake/Output Summary (Last 24 hours) at 08/04/2019 1802 Last data filed at 08/04/2019 1600 Gross per 24 hour Intake 1370 ml Output 1950 ml Net -580 ml Physical Exam Constitutional: No distress Cardiovascular: Normal rate. Pulmonary: Effort normal. No stridor. No respiratory distress. Abdominal: Soft. He exhibits no distension. Drain in place. Dressing on abdomen is clean and dry, no obvious discharge. No tenderness. Neurological: Alert and oriented to person, place, and time. Psychiatric: He has a normal mood and affect His behavior is normal. Thought content vanessa aguillon Nursing note and vitals reviewed. Problem List Principal Problem: Abdominal wall abscess Active Problems: Abdominal pain, generalized History of traumatic brain injury HTN (hypertension), benign Signed: Harshad Bar [facility] Trauma [facility] Acute Care Surgery Portions of this chart may have been created with voice recognition software. Occasional wr soham-word or "sound-alike" substitutions may have occurred, even after review, due to the inh erent limitations of voice recognition software. Please read the chart carefully and recogni ze, using context, where these substitutions have occurred. Personal communication is reques ferny for any clarifications. Associated attestation - Myles Valencia MD - 08/05/2019 10:29 AM PSTGENERAL SURGERY / LC [facility] PROGRESS NOTE The mid-level provider made rounds on this patient in my presence. Physical examination per formed by advanced practice provider in my presence. Plan made with my direct input. I agree with the assessment and plan as written. MD Jesus Hawkins Alisha J, RN - 08/04/2019 5:16 AM PSTPt VSS during NOC. Pt and spouse very emotio nal about ongoing illness. Spiritual consult placed. Pt voiding independently w/ the urinal. Spouse remains at bedside. Pt intermittently disoriented to year this shift and forgetful h owever states this is baseline. Pt medicated w/ scheduled 30mg oxycodone and most recen t pain level stated to be 5/10. ABD drain output total of 60mls of thick creamy brown drainage. Gas also noted in bag. Drai n flushed q. 12 hours w/ 10mls NS per order. Chart review complete. Elvi Farley MD - 08/03/2019 2:48 PM PSTFormatting of this note might be different fr om the original. [facility] Service: Hospitalist Progress Note Hospital Day: LOS: 5 days SUBJECTIVE Patient Summary: Mr. Cespedes is a 58 yr old man with hx of PAD, s/p angioplasty with stent placement in iliac artery, on chronic anticoagulation, TBI, hx of C. Diff colitis, HCV infection, anxiety and d epression and multiple abdominal surgery including at least 3 hernia repairs, treated back i n 07/04/19 for an abdominal wall abscess s/p ID and antibiotics, presented to the ED for ab dominal pain. CT abdomen showed a complex fluid and air collection deep into the abdominal w all. His case was discussed initially with surgery who recommended CT guided abscess drainag e. IR was consulted and patient underwent drain placement. He was also referred to ID for a ntibiotic management. His blood cultures have been negative. Culture of his abscess however has isolated E. Coli, S gordonii, and prevotella oralis. Patient was noted to have brownish fluid and air in his bag. A repeat CT abdomen on 08/02/19 showed unchanged size of the fluid collection. Events Overnight: Patient has no complaint today, no recurrence of abdominal pain. Scheduled Medications amLODIPine 10 mg Oral Daily apixaban 5 mg Oral BID clopidogrel 75 mg Oral Daily gabapentin 600 mg Oral BID levoFLOXacin 750 mg Intravenous Daily metroNIDAZOLE 500 mg Intravenous 3 times per day oxyCODONE 15-30 mg Oral Q3H pantoprazole 40 mg Oral QAM AC tamsulosin 0.8 mg Oral Daily Continuous Infusions sodium chloride 0.9% 75 mL/hr at 08/03/19 1345 PRN Medications acetaminophen, albuterol, benzonatate, HYDROmorphone, LORazepam, melatonin, methocarbamol, ondansetron OBJECTIVE Vital Signs: BP 136/78 | Pulse 72 | Temp 36.4 C (97.6 F) (Oral) | Resp 18 | Ht 1.803 m (5' 11") | Wt 97.1 kg (214 lb) | SpO2 98% | BMI 29.85 kg/m Patient Vitals for the past 24 hrs: BP Temp Temp src Pulse Resp SpO2 08/03/19 1150 136/78 36.4 C (97.6 F) Oral 72 18 98 % 08/03/19 0825 115/76 08/03/19 0722 107/70 36.5 C (97.7 F) Oral 64 18 95 % 08/03/19 0358 126/82 36.5 C (97.7 F) Oral 79 20 97 % 08/03/19 0054 117/69 36.6 C (97.8 F) Oral 71 20 94 % 08/02/19 1926 139/73 36.6 C (97.8 F) Oral 79 18 99 % 08/02/19 1549 120/71 36.6 C (97.9 F) Oral 61 18 98 % Intake/Output Summary (Last 24 hours) at 08/03/2019 1448 Last data filed at 08/03/2019 1345 Gross per 24 hour Intake 2001 ml Output 1385 ml Net 616 ml Physical Exam Constitutional: He is oriented to person, place, and time and well-developed, well-nourishe d, and in no distress. HENT: Head: Normocephalic and atraumatic. Mouth/Throat: Oropharynx is clear and moist. Eyes: Pupils are equal, round, and reactive to light. Conjunctivae are normal. Neck: Normal range of motion. No JVD present. Cardiovascular: Normal rate and regular rhythm. No murmur heard. Pulmonary/Chest: Effort normal and breath sounds normal. He has no wheezes. He has no rales . Abdominal: Soft. Bowel sounds are normal. There is no tenderness. + drain in place with brownish fluid output Musculoskeletal: General: No edema. Lymphadenopathy: He has no cervical adenopathy. Neurological: He is alert and oriented to person, place, and time. No cranial nerve deficit . Skin: Skin is warm. DATA Recent Results (from the past 24 hour(s)) CBC with Differential Result Value Ref Range WBC 9.59 3.80 - 11.00 K/uL RBC 4.05 (L) 4.20 - 5.70 M/uL Hemoglobin 11.9 (L) 13.2 - 17.0 g/dL Hematocrit 35.5 (L) 39.0 - 50.0 % MCV 87.7 80.0 - 100.0 fl MCH 29.5 27.0 - 34.0 pg MCHC 33.6 32.0 - 35.5 g/dL RDW-SD 49.0 37 - 53 fl Platelet Count 429 (H) 150 - 400 K/uL MPV 7.8 fl Diff Type AUTOMATED % Neutrophils 57.08 % % Lymphocytes 28.31 % Monocyte % 9.78 % Eosinophils % 3.76 % Basophils % 1.07 % Neutrophils, Absolute 5.47 1.90 - 7.40 K/uL Absolute Lymphocytes 2.71 1.00 - 3.90 K/uL Absolute Monocytes 0.94 (H) 0.00 - 0.80 K/uL Eosinophils, Absolute 0.36 0.00 - 0.50 K/uL Basophils, Absolute 0.10 0.00 - 0.10 K/uL Comprehensive Metabolic Panel Result Value Ref Range Na 139 135 - 145 mmol/L K 3.8 3.5 - 4.9 mmol/L Cl 107 99 - 109 mmol/L CO2 25 23 - 32 mmol/L Anion Gap 11 5 - 20 mmol/L Glucose 93 65 - 99 mg/dL BUN 17 8 - 25 mg/dL Creatinine 0.8 0.70 - 1.30 mg/dL BUN/Creatinine Ratio 21 Calcium 8.6 8.5 - 10.5 mg/dL Protein, Total 7.6 6.3 - 8.2 g/dL Albumin 3.0 (L) 3.6 - 5.0 g/dL Globulin 4.6 1.3 - 4.9 g/dL A/G Ratio 0.7 (L) 1.0 - 2.4 BILIRUBIN, TOTAL 0.2 0.1 - 1.5 mg/dL ALK PHOS 85 35 - 115 U/L AST 15 10 - 45 U/L ALT 15 10 - 65 U/L Estimated GFR >60 >60 mL/min/1.73m2 IMAGES Recent Results (from the past 360 hour(s)) XR Chest PA and Lateral Narrative CHEST PA AND LATERAL CLINICAL INFORMATION: Cough and congestion. COMPARISON: CTA CHEST ABDOMEN PELVIS W CONTRAST (02/21/2019); SUPA C ARM GUIDANCE (02/05/2016); C ARM GUIDANCE (01/07/2016); FINDINGS: Heart size normal. No consolidation, pleural effusion, or pneumothorax. Minimal perihilar and basilar linear atelectasis. Osseous structures unremarkable. Impression No significant abnormality. Signed by: Trevin Emery, Eladio Sign Date/Time: 07/29/2019 4:[address] Abdomen Pelvis w Contrast Narrative CT ABDOMEN AND PELVIS WITH CONTRAST CLINICAL INFORMATION: Abdominal pain left side. COMPARISON: CT ABDOMEN W CONTRAST (07/04/2019); CTA CHEST ABDOMEN PELVIS W CONTRAST (02/21/2019); CT ABDOMEN PELVIS W CONTRAST (01/21/2018); CT ABDOMEN PELVIS W CONTRAST (03/04/2016); PROCEDURE: Axial images through the abdomen and pelvis after the administration of 100ml omnipaque 350 intravenous contrast. Multiplanar reconstructions. At least one of the following CT dose optimization techniques were used: Automated exposure control; Adjustment of mA and/or kV according to patient size; Use of iterative reconstruction technique. FINDINGS: LUNG BASES: No significant pulmonary abnormality. No pleural effusion or pneumothorax. ABDOMEN Liver and Biliary: Liver unremarkable. Cholecystectomy. Pancreas, Spleen and Adrenals: 3 mm calcification in the uncinate process of the pancreas , stable. This appears inferior/medial to the CBD, probably due to chronic pancreatitis. I doubt distal CBD stone. CBD 7 mm, stable. Pancreas otherwise unremarkable. Spleen, adrenals unremarkable. Kidneys: 12 mm lateral mid left renal cyst with smaller inferior pole cystic lesion, unchanged perhaps due to smaller cyst, too small to characterize. Scarring lateral upper pole of the right kidney again noted. ABDOMEN AND PELVIS Bowel: No small bowel or colonic dilation or adjacent inflammation. No appendiceal dilation or inflammation. Vessels: Right common/proximal external iliac stent. No other arterial abnormalities. No aneurysm. Patent portal vein. Lymph Nodes: Lymph node medial to the pancreatic head measuring 1.4 x 3.0 cm, stable dating back 03/04/2016, benign. No other evidence of adenopathy. Peritoneum and Retroperitoneum: No free air. No ascites. PELVIS Genitourinary: Distal ureters and bladder appear normal. No pelvic masses. BODY WALL Soft Tissues: Abdominal wall hernia repair, with complex debris and air superficial to the mesh and deep to the abdominal wall measuring 12.3 cm transverse by 2.4 cm AP by 7.6 cm superoinferior dimension, slightly increased in size. This raises concern for abscess. Infiltration of the abdominal wall in this region. No fistulization to the skin is seen presently. Bones: Old healed right superior and inferior pubic rami/pubic symphyseal fractures, with plate and screw fixation of the right iliac wing extending through the SI joint, unchanged. Fusion right SI joint. Chronic compression of the central L4 vertebral body with preserved periphery. Spondylotic changes of the spine. No listhesis. Impression 1. Complex fluid and air collection deep to the abdominal wall but superficial to the mesh repair in the midline abdomen measuring 12.3 x 2.4 by 7.6 cm. While this may be due to hematoma, abscess must be considered. No fistula to the skin surface is seen presently. 2. Probable chronic pancreatitis, cholecystectomy, right renal scarring, left renal cysts, chronic right pelvic fractures with repair, chronic L4 central superior endplate compression deformity. Signed by: Trevin Walker, Keyur Sign Date/Time: 07/29/2019 6:[address] Abdomen Pelvis wo Contrast Narrative CT ABDOMEN AND PELVIS WITHOUT CONTRAST CLINICAL INFORMATION: Abdominal pain, Abdominal abscess COMPARISON: CT GUIDED DRAIN ABSCESS PERITONEAL (07/30/2019); CT ABDOMEN PELVIS W CONTRAST (07/29/2019) PROCEDURE: Axial images through the abdomen and pelvis. Multiplanar reconstructions. At least one of the following CT dose optimization techniques were used: Automated exposure control; Adjustment of mA and/or kV according to patient size; Use of iterative reconstruction technique. FINDINGS: Lack of intravenous contrast typically diminishes sensitivity for assessment of solid organs and vascular structures. LUNG BASES: Trace bilateral pleural effusions, with associated small amount of atelectasis. ABDOMEN Solid organ evaluation suboptimal without contrast. Liver and Biliary: Liver appears unremarkable. Patient is post cholecystectomy. Pancreas, Spleen and Adrenals: Appear unremarkable. Kidneys: Appear unremarkable. ABDOMEN AND PELVIS Bowel: Appendix is seen on series 2, image 114 and appears unremarkable. No bowel obstruction or ileus seen. Vessels: Mild atherosclerosis. Aorta does not appear aneurysmal Lymph Nodes: No enlarged lymph nodes seen Peritoneum and Retroperitoneum: Interval placement of a percutaneous drainage catheter. Previously noted fluid collection appears to be essentially unchanged in size, measuring approximately 12.3 cm x 2.4 cm in size. PELVIS Genitourinary: Urinary bladder is mildly distended BODY WALL Soft Tissues: No significant abnormality appreciated. Bones: No acute or destructive osseous process seen. Impression Interval placement of a percutaneous drainage catheter. Previously noted fluid collection appears to be essentially unchanged in size, measuring approximately 12.3 cm x 2.4 cm in size. Signed by: Trevin Ch Amit Sign Date/Time: 08/02/2019 8:06 PM PROBLEM LIST Principal Problem: Abdominal wall abscess Active Problems: Abdominal pain, generalized History of traumatic brain injury HTN (hypertension), benign ASSESSMENT & PLAN Abdominal wall abscess ID following, currently remains on levaquin and flagyl IV CT abdomen showed unchanged size of mass Discussed with Dr. Dunlap who suggested referring back to surgery for evaluation Surgery reconsulted HTN Noted BP Continue amlodipine Continue to monitor BP closely PAD On plavix History of renal artery dissection Being evaluated for possible vasculitis On eliquis Normal renal function Disposition: pending Code Status: Full Code Elvi Bragg MD 08/03/2019 2:48 PM Kelly Funk MD - 08/03/2019 11:25 AM PST [facility] Service: Infectious Disease Progress Note Hospital Day: LOS: 5 days Post-Op Day: * No surgery found * SUBJECTIVE Patient Summary: Re: Abdominal wall infection History of mesh for ventral hernia Events Overnight: Patient is afebrile. Although patient says he has no pain today, his does indicate that he has been having abdominal pain. He denies nausea. There has been no vomiting. There has been no diarrhea. On 08/02 with brownish fluid and air noted at his catheter drain/bag, CT of the abdomen and pelvis had been repeated showing unchanged size of the fluid collection. ROS: Patient denies cough, chest pain, palpitations, pruritus, new skin rash Continues to feel fatigued. Appetite is low. Scheduled Medications amLODIPine 10 mg Oral Daily apixaban 5 mg Oral BID clopidogrel 75 mg Oral Daily gabapentin 600 mg Oral BID levoFLOXacin 750 mg Intravenous Daily metroNIDAZOLE 500 mg Intravenous 3 times per day oxyCODONE 15-30 mg Oral Q3H pantoprazole 40 mg Oral QAM AC tamsulosin 0.8 mg Oral Daily Continuous Infusions sodium chloride 0.9% 75 mL/hr at 08/02/19 1954 PRN Medications acetaminophen, albuterol, benzonatate, HYDROmorphone, LORazepam, melatonin, methocarbamol, ondansetron OBJECTIVE Vital Signs: Vitals: 08/03/19 0825 BP: 115/76 Pulse: Resp: Temp: Physical Exam Vital signs reviewed General: Appears frail, not in acute distress. at bedside Lungs: No adventitious breath sounds Cardiovascular: Normal rate. Regular rhythm Abdomen: No distention. Drain in place with brownish-looking drainage. No abdominal wall erythema. Positive bowel sounds. Soft. Some tenderness around the drain site. Skin: No drug rash Musculoskeletal: No inflamed-looking joints Neurologic: Oriented x3. Generalized weakness noted Psychiatric: Cooperative during the clinical encounter DATA Recent Results (from the past 24 hour(s)) CBC with Differential Collection Time: 08/03/19 5:02 AM Result Value Ref Range WBC 9.59 3.80 - 11.00 K/uL RBC 4.05 (L) 4.20 - 5.70 M/uL Hemoglobin 11.9 (L) 13.2 - 17.0 g/dL Hematocrit 35.5 (L) 39.0 - 50.0 % MCV 87.7 80.0 - 100.0 fl MCH 29.5 27.0 - 34.0 pg MCHC 33.6 32.0 - 35.5 g/dL RDW-SD 49.0 37 - 53 fl Platelet Count 429 (H) 150 - 400 K/uL MPV 7.8 fl Diff Type AUTOMATED % Neutrophils 57.08 % % Lymphocytes 28.31 % Monocyte % 9.78 % Eosinophils % 3.76 % Basophils % 1.07 % Neutrophils, Absolute 5.47 1.90 - 7.40 K/uL Absolute Lymphocytes 2.71 1.00 - 3.90 K/uL Absolute Monocytes 0.94 (H) 0.00 - 0.80 K/uL Eosinophils, Absolute 0.36 0.00 - 0.50 K/uL Basophils, Absolute 0.10 0.00 - 0.10 K/uL Comprehensive Metabolic Panel Collection Time: 08/03/19 5:02 AM Result Value Ref Range Na 139 135 - 145 mmol/L K 3.8 3.5 - 4.9 mmol/L Cl 107 99 - 109 mmol/L CO2 25 23 - 32 mmol/L Anion Gap 11 5 - 20 mmol/L Glucose 93 65 - 99 mg/dL BUN 17 8 - 25 mg/dL Creatinine 0.8 0.70 - 1.30 mg/dL BUN/Creatinine Ratio 21 Calcium 8.6 8.5 - 10.5 mg/dL Protein, Total 7.6 6.3 - 8.2 g/dL Albumin 3.0 (L) 3.6 - 5.0 g/dL Globulin 4.6 1.3 - 4.9 g/dL A/G Ratio 0.7 (L) 1.0 - 2.4 BILIRUBIN, TOTAL 0.2 0.1 - 1.5 mg/dL ALK PHOS 85 35 - 115 U/L AST 15 10 - 45 U/L ALT 15 10 - 65 U/L Estimated GFR >60 >60 mL/min/1.73m2 Microbiology data: 07/30 abscess culture E. coli, 2+ mixed gram-positive deepa, 2+ mixed anaerobic deepa; Gra m stain shows 4+ WBCs, 1+ gram-positive cocci, 3+ gram-negative rods Escherichia coli (1) Antibiotic Interpretation Vitek 2XL Method Status Ampicillin Sensitive SUSCEPTIBLE ANDREW Preliminary Ampicillin + Sulbactam Sensitive SUSCEPTIBLE ANDREW Preliminary Cefepime Sensitive SUSCEPTIBLE ANDREW Preliminary Cefoxitin Sensitive SUSCEPTIBLE ANDREW Preliminary Ceftazidime Sensitive SUSCEPTIBLE ANDREW Preliminary Ceftriaxone Sensitive SUSCEPTIBLE ANDREW Preliminary Ciprofloxacin Sensitive SUSCEPTIBLE ANDREW Preliminary Gentamicin Sensitive SUSCEPTIBLE ANDREW Preliminary Levofloxacin Sensitive SUSCEPTIBLE ANDREW Preliminary Tobramycin Sensitive SUSCEPTIBLE ANDREW Preliminary Trimethoprim + Sulfamethoxazole Sensitive SUSCEPTIBLE ANDREW Preliminary 07/29 MRSA nasal PCR negative 07/29 blood cultures with no growth to date 07/29 urine culture with no growth 07/29 influenza negative Historical microbiology data: Wound culture Gram Stain Result 2+ WBC'S SEEN Gram Stain Result 3+ GRAM POSITIVE COCCI Gram Stain Result Testing performed at [facility];[address] [place] [address];[place] [address] RESULT Abnormal 2+ ESCHERICHIA COLI RESULT Abnormal 2+ STREPTOCOCCUS GORDONII RESULT Abnormal 2+ PREVOTELLA ORALIS Resulting [facility] Susceptibility Escherichia coli ANDREW Ampicillin SUSCEPTIBLE Sensitive Ampicillin + Sulbactam SUSCEPTIBLE Sensitive Cefepime SUSCEPTIBLE Sensitive Cefoxitin SUSCEPTIBLE Sensitive Ceftazidime SUSCEPTIBLE Sensitive Ceftriaxone SUSCEPTIBLE Sensitive Ciprofloxacin SUSCEPTIBLE Sensitive Gentamicin SUSCEPTIBLE Sensitive Levofloxacin SUSCEPTIBLE Sensitive Tobramycin SUSCEPTIBLE Sensitive Trimethoprim + Sulfamethoxazole SUSCEPTIBLE Sensitive Susceptibility Streptococcus gordonii ANDREW Clindamycin SUSCEPTIBLE Sensitive Erythromycin SUSCEPTIBLE Sensitive Levofloxacin SUSCEPTIBLE Sensitive Moxifloxacin SUSCEPTIBLE Sensitive Penicillin G SUSCEPTIBLE Sensitive Tetracycline SUSCEPTIBLE Sensitive Vancomycin SUSCEPTIBLE Sensitive1 1 Testing performed at [facility], [address] [place] [id number] Specimen Collected: 07/04/19 19:30 Last Resulted: 07/09/19 09:35 SPECIMEN SOURCE: A. SURGICAL MESH CLINICAL HISTORY: 12/18/2014 at 1050 H. Surgical mesh. FINAL PATHOLOGIC DIAGNOSIS: Surgical mesh, excision: - Fibroadipose tissue with scar and embedded foreign material, consistent with me sh - Patchy chronic inflammation and foreign body giant cell reaction - Negative for acute inflammation and neoplasia Imaging: CT of abdomen/pelvis FINDINGS: Lack of intravenous contrast typically diminishes sensitivity for assessment of solid organs and vascular structures. LUNG BASES: Trace bilateral pleural effusions, with associated small amount of atelectasis. ABDOMEN Solid organ evaluation suboptimal without contrast. Liver and Biliary: Liver appears unremarkable. Patient is post cholecystectomy. Pancreas, Spleen and Adrenals: Appear unremarkable. Kidneys: Appear unremarkable. ABDOMEN AND PELVIS Bowel: Appendix is seen on series 2, image 114 and appears unremarkable. No bowel obstruction or ileus seen. Vessels: Mild atherosclerosis. Aorta does not appear aneurysmal Lymph Nodes: No enlarged lymph nodes seen Peritoneum and Retroperitoneum: Interval placement of a percutaneous drainage catheter. Previously noted fluid collection appears to be essentially unchanged in size, measuring approximately 12.3 cm x 2.4 cm in size. PELVIS Genitourinary: Urinary bladder is mildly distended BODY WALL Soft Tissues: No significant abnormality appreciated. Bones: No acute or destructive osseous process seen. IMPRESSION: Interval placement of a percutaneous drainage catheter. Previously noted fluid collection appears to be essentially unchanged in size, measuring approximately 12.3 cm x 2.4 cm in size. Signed by: Trevin Ch Amit Sign Date/Time: 08/02/2019 8:[address] of abdomen/pelvis IMPRESSION: 1. Complex fluid and air collection deep to the abdominal wall but superficial to the mesh repair in the midline abdomen measuring 12.3 x 2.4 by 7.6 cm. While this may be due to hematoma, abscess must be considered. No fistula to the skin surface is seen presently. 2. Probable chronic pancreatitis, cholecystectomy, right renal scarring, left renal cysts, chronic right pelvic fractures with repair, chronic L4 central superior endplate compression deformity. Signed by: Trevin Walker Shawn Sign Date/Time: 07/29/2019 6:06 PM CXR IMPRESSION: No significant abnormality. Signed by: Trevin Emery Gregory Sign Date/Time: 07/29/2019 4:[address] of abdomen/pelvis IMPRESSION: 1. Fluid collection with rim enhancement and multiple foci of air seen along the mesh repair of the anterior abdominal wall, measuring 11.6 x 2.5 x 5.6 cm. No definite intraperitoneal extension. A small draining tract from this collection is noted at the level of the umbilicus. Mild thickening and fat stranding in the anterior abdominal wall adjacent subcutaneous fat. 2. Some of the small bowel loops appear to be in close approximation to this collection along the mesh however no definite communication identified. No abnormal thickening of these bowel loops. 3. Other stable chronic findings as described above. Signed by: Trevin Meneses, Colleen Sign Date/Time: 07/04/2019 10:36 PM PROBLEM LIST Principal Problem: Abdominal wall abscess Active Problems: Abdominal pain, generalized History of traumatic brain injury HTN (hypertension), benign ASSESSMENT & PLAN Abdominal wall abscess -This is in the clinical context of a patient with history of traumatic brain injury, comp angy history of abdominal surgeries including hernia repair with mesh. From documentation, h is last surgery pertaining to the hernia was done on 11/2016 and that he had been under the c are of Dr. Jamie Bentley, [facility] surgery -He had been previously under the care of Dr. Rd Busby, [facility] but he and his travis thao indicate wanting to continue Infectious Diseases under [facility] at this time -Patient is not septic -He has history of penicillin allergy; although anaphylaxis is listed as a reaction in his chart, he really does not know what happened. His indicates that he had tolerated cep halexin previously with no adverse reaction -CT of the abdomen and pelvis on this admission indicate that the abscess is superficial to the mesh -Dr. Caldwell, Surgery, had been consulted from the ER; on his recommendation, patient has undergone CT-guided abscess drainage under IR with drain in place. Percutaneous drain in p lace was slightly pulled out; reevaluated by IR and in correct position -Follow up CT showed unchanged fluid collection; no overt fistulous tract -Abscess culture grew E coli, quinolone S, mixed anaerobes and mixed Gram positive deepa. Blood cultures with no growth to date. MRSA nasal PCR negative -07/04 wound culture grew E. coli, Streptococcus gordonii and 2+ Prevotella oralis -Continue IV levofloxacin/metronidazole, day 6. Ultimate duration will depend on clinical course and radiologic resolution of the abscess. -Recommend formal Surgery consult Case had been discussed with Dr. Yemi Pastrana to assume ID care on 08/04 Code Status: Full Code Kelly Dunlap MD 08/03/2019 Aisha Mixon RN - 08/03/2019 6:39 AM PSTVSS, afebrile for shift. Patient struggled with pain c ontrol overnight, refusing scheduled asaf (last dose ~0100), pt reports it isn't working for him - IV dilaudid working somewhat better. Complains also of R flank pain as well as bilate ral shoulder pain thought to be from positioning for CT scan in the evening. Ativan PO also administered x2 for anxiety and to adjunct pain control. Abdominal drain continues to drain brown, purulent, foul smelling, thick drainage. Total of 10mL collected but some remains in bag/accordian d/t thickness. Flushed appropriately without issue. Tolerating IVabx well, IVF also infusing. Hourly rounding otherwise uneventful. Spouse at bedside overnight, attentive to patient and helpful with care. Aisha Taylor RN 08/03/2019 6:39 AM Electronically signed by Aisha Taylor RN at 6:39 AM Elvi Farley MD - 08/02/2019 2:31 PM PST [facility] Service: Hospitalist Progress Note Hospital Day: LOS: 4 days SUBJECTIVE Patient Summary: Mr. Cespedes is a 58 yr old man with hx of PAD, s/p angioplasty with stent placement in iliac artery, on chronic anticoagulation, TBI, hx of C. Diff colitis, HCV infection, anxiety and d epression and multiple abdominal surgery including at least 3 hernia repairs, treated back i n 07/04/19 for an abdominal wall abscess s/p ID and antibiotics, presented to the ED for ab dominal pain. CT abdomen showed a complex fluid and air collection deep into the abdominal w all. His case was discussed initially with surgery who recommended CT guided abscess drainag e. IR was consulted and patient underwent drain placement. He was also referred to ID for a ntibiotic management. His blood cultures have been negative. Culture of his abscess however has isolated E. Coli, S gordonii, and prevotella oralis. Events Overnight: Patient was seen at bedside, noted drain output, did not look like abscess but more like fe dk. Nursing staff now noted gas in the bag. Patient himself has no complaint. Scheduled Medications amLODIPine 10 mg Oral Daily apixaban 5 mg Oral BID clopidogrel 75 mg Oral Daily gabapentin 600 mg Oral BID levoFLOXacin 750 mg Intravenous Daily metroNIDAZOLE 500 mg Intravenous 3 times per day oxyCODONE 15-30 mg Oral Q3H pantoprazole 40 mg Oral QAM AC tamsulosin 0.8 mg Oral Daily Continuous Infusions sodium chloride 0.9% 75 mL/hr at 08/02/19 0307 PRN Medications acetaminophen, albuterol, benzonatate, HYDROmorphone, LORazepam, melatonin, methocarbamol, ondansetron OBJECTIVE Vital Signs: BP 102/66 | Pulse 63 | Temp 36.8 C (98.2 F) (Oral) | Resp 18 | Ht 1.803 m (5' 11") | Wt 97.1 kg (214 lb) | SpO2 97% | BMI 29.85 kg/m Patient Vitals for the past 24 hrs: BP Temp Temp src Pulse Resp SpO2 Weight 08/02/19 1130 102/66 36.8 C (98.2 F) Oral 63 18 97 % 08/02/19 0845 120/72 08/02/19 0732 122/78 36.8 C (98.2 F) Oral 72 18 97 % 08/02/19 0339 123/74 36.6 C (97.8 F) Oral 57 18 96 % 97.1 kg (214 lb) 08/01/19 2311 143/85 36.8 C (98.3 F) Oral 63 18 98 % 08/01/19 1956 133/82 36.5 C (97.7 F) Oral 72 18 99 % 08/01/19 1548 122/75 36.6 C (97.8 F) Oral 63 19 96 % Intake/Output Summary (Last 24 hours) at 08/02/2019 1432 Last data filed at 08/02/2019 1215 Gross per 24 hour Intake 1000 ml Output 1625 ml Net -625 ml Physical Exam Constitutional: He is oriented to person, place, and time and well-developed, well-nourishe d, and in no distress. HENT: Head: Normocephalic and atraumatic. Mouth/Throat: Oropharynx is clear and moist. Eyes: Pupils are equal, round, and reactive to light. Conjunctivae are normal. Neck: Normal range of motion. No JVD present. Cardiovascular: Normal rate and regular rhythm. No murmur heard. Pulmonary/Chest: Effort normal and breath sounds normal. He has no wheezes. He has no rales . Abdominal: Soft. Bowel sounds are normal. There is no tenderness. + drain in place, output watery and brownish in color Musculoskeletal: General: No edema. Lymphadenopathy: He has no cervical adenopathy. Neurological: He is alert and oriented to person, place, and time. No cranial nerve deficit . DATA Recent Results (from the past 24 hour(s)) CBC with Differential Result Value Ref Range WBC 8.39 3.80 - 11.00 K/uL RBC 3.54 (L) 4.20 - 5.70 M/uL Hemoglobin 10.4 (L) 13.2 - 17.0 g/dL Hematocrit 30.9 (L) 39.0 - 50.0 % MCV 87.3 80.0 - 100.0 fl MCH 29.3 27.0 - 34.0 pg MCHC 33.6 32.0 - 35.5 g/dL RDW-SD 49.9 37 - 53 fl Platelet Count 361 150 - 400 K/uL MPV 7.7 fl Diff Type AUTOMATED % Neutrophils 57.84 % % Lymphocytes 26.04 % Monocyte % 11.99 % Eosinophils % 3.05 % Basophils % 1.08 % Neutrophils, Absolute 4.86 1.90 - 7.40 K/uL Absolute Lymphocytes 2.19 1.00 - 3.90 K/uL Absolute Monocytes 1.01 (H) 0.00 - 0.80 K/uL Eosinophils, Absolute 0.26 0.00 - 0.50 K/uL Basophils, Absolute 0.09 0.00 - 0.10 K/uL Basic Metabolic Panel Result Value Ref Range Na 141 135 - 145 mmol/L K 3.6 3.5 - 4.9 mmol/L Cl 108 99 - 109 mmol/L CO2 26 23 - 32 mmol/L Anion Gap 11 5 - 20 mmol/L Glucose 107 (H) 65 - 99 mg/dL BUN 13 8 - 25 mg/dL Creatinine 0.61 (L) 0.70 - 1.30 mg/dL BUN/Creatinine Ratio 21 Calcium 8.4 (L) 8.5 - 10.5 mg/dL Estimated GFR >60 >60 mL/min/1.73m2 Magnesium Result Value Ref Range Magnesium 1.7 1.7 - 2.4 mg/dL Phosphorus Result Value Ref Range Phosphorus 3.3 2.3 - 4.8 mg/dL IMAGES Recent Results (from the past 360 hour(s)) XR Chest PA and Lateral Narrative CHEST PA AND LATERAL CLINICAL INFORMATION: Cough and congestion. COMPARISON: CTA CHEST ABDOMEN PELVIS W CONTRAST (02/21/2019); SUPA C ARM GUIDANCE (02/05/2016); SUPA C ARM GUIDANCE (01/07/2016); FINDINGS: Heart size normal. No consolidation, pleural effusion, or pneumothorax. Minimal perihilar and basilar linear atelectasis. Osseous structures unremarkable. Impression No significant abnormality. Signed by: Trevin Emery Gregory Sign Date/Time: 07/29/2019 4:[address] Abdomen Pelvis w Contrast Narrative CT ABDOMEN AND PELVIS WITH CONTRAST CLINICAL INFORMATION: Abdominal pain left side. COMPARISON: CT ABDOMEN W CONTRAST (07/04/2019); CTA CHEST ABDOMEN PELVIS W CONTRAST (02/21/2019); CT ABDOMEN PELVIS W CONTRAST (01/21/2018); CT ABDOMEN PELVIS W CONTRAST (03/04/2016); PROCEDURE: Axial images through the abdomen and pelvis after the administration of 100ml omnipaque 350 intravenous contrast. Multiplanar reconstructions. At least one of the following CT dose optimization techniques were used: Automated exposure control; Adjustment of mA and/or kV according to patient size; Use of iterative reconstruction technique. FINDINGS: LUNG BASES: No significant pulmonary abnormality. No pleural effusion or pneumothorax. ABDOMEN Liver and Biliary: Liver unremarkable. Cholecystectomy. Pancreas, Spleen and Adrenals: 3 mm calcification in the uncinate process of the pancreas , stable. This appears inferior/medial to the CBD, probably due to chronic pancreatitis. I doubt distal CBD stone. CBD 7 mm, stable. Pancreas otherwise unremarkable. Spleen, adrenals unremarkable. Kidneys: 12 mm lateral mid left renal cyst with smaller inferior pole cystic lesion, unchanged perhaps due to smaller cyst, too small to characterize. Scarring lateral upper pole of the right kidney again noted. ABDOMEN AND PELVIS Bowel: No small bowel or colonic dilation or adjacent inflammation. No appendiceal dilation or inflammation. Vessels: Right common/proximal external iliac stent. No other arterial abnormalities. No aneurysm. Patent portal vein. Lymph Nodes: Lymph node medial to the pancreatic head measuring 1.4 x 3.0 cm, stable dating back 03/04/2016, benign. No other evidence of adenopathy. Peritoneum and Retroperitoneum: No free air. No ascites. PELVIS Genitourinary: Distal ureters and bladder appear normal. No pelvic masses. BODY WALL Soft Tissues: Abdominal wall hernia repair, with complex debris and air superficial to the mesh and deep to the abdominal wall measuring 12.3 cm transverse by 2.4 cm AP by 7.6 cm superoinferior dimension, slightly increased in size. This raises concern for abscess. Infiltration of the abdominal wall in this region. No fistulization to the skin is seen presently. Bones: Old healed right superior and inferior pubic rami/pubic symphyseal fractures, with plate and screw fixation of the right iliac wing extending through the SI joint, unchanged. Fusion right SI joint. Chronic compression of the central L4 vertebral body with preserved periphery. Spondylotic changes of the spine. No listhesis. Impression 1. Complex fluid and air collection deep to the abdominal wall but superficial to the mesh repair in the midline abdomen measuring 12.3 x 2.4 by 7.6 cm. While this may be due to hematoma, abscess must be considered. No fistula to the skin surface is seen presently. 2. Probable chronic pancreatitis, cholecystectomy, right renal scarring, left renal cysts, chronic right pelvic fractures with repair, chronic L4 central superior endplate compression deformity. Signed by: Trevin Walker Shawn Sign Date/Time: 07/29/2019 6:06 PM PROBLEM LIST Principal Problem: Abdominal wall abscess Active Problems: Abdominal pain, generalized History of traumatic brain injury HTN (hypertension), benign ASSESSMENT & PLAN Abdominal wall abscess ID following, currently remains on levaquin and flagyl IV CT abdomen stat to check drain placement since output of drain appeared fecaloid and + gas in bag HTN Noted BP Continue amlodipine Continue to monitor BP closely PAD On plavix History of renal artery dissection Being evaluated for possible vasculitis On eliquis Disposition: pending Code Status: Full Code Elvi Bragg MD 08/02/2019 2:32 PM Sujata Marley PA - 1 10/02/2018 9:20 AM PST Interventional Radiology Progress Note Patient Name: Reza Cespedes Date of : 1960 Consulting Provider: Sujata Man PA-C Interval History/Subjective: Reza Cespedes is a 58 y.o. male with abdominal wall infection/abscess s/p CT-guided ab scess drainage and catheter placement on 07/30/2019. He is accompanied by his today who helps fill in details. Over the past 24 hours has had 100 mL of purulent output. The other night he rolled over and reportedly pulled back his drain slightly. Patient reports it cristiano t, but he continues to get output. RN placed large dressing over previous dressing to ensur e its placement. WBC 8.39 and patient remains on Levaquin and Flagyl. Labs: 3 Day Labs: Recent Labs Lab 08/02/19 0446 08/01/19 0428 07/31/19 0439 07/30/19 0437 07/29/19 1630 WBC 8.39 10.41 8.41 < > -- 9.19 HGB 10.4* 10.1* 10.5* < > -- 11.3* HCT 30.9* 29.9* 30.7* < > -- 33.4* PLT 361 382 385 < > -- 470* NA 141 138 139 -- 139 141 K 3.6 3.3* 3.7 -- 4.3 3.6 CL 108 106 108 -- 111* 108 CO2 26 24 24 -- 24 27 BUN 13 13 14 -- 14 15 CALCIUM 8.4* 8.1* 8.5 -- 8.4* 9.1 PHOS 3.3 -- -- -- -- -- MG 1.7 -- -- -- -- -- ALKPHOS -- -- -- -- 87 94 ALBUMIN -- -- -- -- 2.7* 4.2 PTT -- -- -- -- 20* -- INR -- -- -- -- 1.1 -- < > = values in this interval not displayed. Pertinent Imaging/Procedures: Xr Chest Pa And Lateral Result Date: 07/29/2019 CHEST PA AND LATERAL CLINICAL INFORMATION: Cough and congestion. COMPARISON: CTA CHEST ABDO MEN PELVIS W CONTRAST (02/21/2019); SUPA C ARM GUIDANCE (02/05/2016); SUPA C ARM GUIDANCE (01/07/20 16); FINDINGS: Heart size normal. No consolidation, pleural effusion, or pneumothorax. Min imal perihilar and basilar linear atelectasis. Osseous structures unremarkable. No significant abnormality. Signed by: Trevin Emery Gregory Sign Date/Time: 07/29/2019 4:[address] Abdomen W Contrast Result Date: 07/04/2019 CT ABDOMEN WITH CONTRAST CLINICAL INFORMATION: Abdominal abscess COMPARISON: CTA CHEST ABDO MEN PELVIS W CONTRAST (02/21/2019); US ABDOMEN LIMITED (12/13/2018); PROCEDURE: Axial images t hrough the abdomen after the administration of 100 mL [id number] intravenous contrast. Mu ltiplanar reconstructions. At least one of the following CT dose optimization techniques wer e used: Automated exposure control; Adjustment of mA and/or kV according to patient size; Us e of iterative reconstruction technique. FINDINGS: LUNG BASES: No significant pulmonary abno rmality. No pleural effusion or pneumothorax. ABDOMEN Liver and Biliary: Status post cholecy stectomy. No significant biliary abnormality. No focal liver lesion. Pancreas, Spleen and Adrenals: No pancreatitis or pancreatic mass. No splenomegaly, splenic mass or splenic hemor rhage. No significant adrenal abnormality. Kidneys: No hydronephrosis, calculus or solid casi al mass. Stable tiny left renal hypodensity presumably a small cyst. Bowel: No small bowel or colonic dilation or adjacent inflammation. Vessels: No significant abnormality in the aor ta or its proximal branches. No significant abnormality in the portal veins, mesenteric vein s or systemic veins. Partially visualized right iliac artery stent Lymph Nodes: Few shotty upper abdominal and retroperitoneal lymph nodes that appear to be stable and are not enlarge d by CT size criteria. Peritoneum and Retroperitoneum: No ascites or free air. No significan t retroperitoneal abnormality. BODY WALL Soft Tissues: There appears to be a fluid collectio n with multiple foci of air along the anterior abdominal wall mesh repair. It measures appr oximately 11.6 x 2.5 x 5.6 cm. There does not appear to be any intraperitoneal extension. There are some bowel loops that appear to be in close proximity yanez however these do not ap pear to be inflamed. There appears to be a small drainage tract from this collection at the level of the umbilicus. Mild thickening and fat stranding in the anterior abdominal wall ad jacent subcutaneous fat. Again noted is diastasis of the recti muscles inferiorly with some small bowel loops projecting into the diastasis defect. Bones: No acute fracture or vertebra l end plate destruction. No lytic or blastic lesion. 1. Fluid collection with rim enhancement and multiple foci of air seen along the mesh repa ir of the anterior abdominal wall, measuring 11.6 x 2.5 x 5.6 cm. No definite intraperitone al extension. A small draining tract from this collection is noted at the level of the umbi licus. Mild thickening and fat stranding in the anterior abdominal wall adjacent subcutaneou s fat. 2. Some of the small bowel loops appear to be in close approximation to this collect ion along the mesh however no definite communication identified. No abnormal thickening of these bowel loops. 3. Other stable chronic findings as described above. Signed by: Mallorie Meneses, Colleen Sign Date/Time: 07/04/2019 10:[address] Abdomen Pelvis W Contrast Result Date: 07/29/2019 CT ABDOMEN AND PELVIS WITH CONTRAST CLINICAL INFORMATION: Abdominal pain left side. COMPARI SON: CT ABDOMEN W CONTRAST (07/04/2019); CTA CHEST ABDOMEN PELVIS W CONTRAST (02/21/2019); CT ABDOMEN PELVIS W CONTRAST (01/21/2018); CT ABDOMEN PELVIS W CONTRAST (03/04/2016); PROCEDURE: Axial images through the abdomen and pelvis after the administration of 100ml omnipaque 350 intravenous contrast. Multiplanar reconstructions. At least one of the following CT dose op timization techniques were used: Automated exposure control; Adjustment of mA and/or kV acco rding to patient size; Use of iterative reconstruction technique. FINDINGS: LUNG BASES: No s ignificant pulmonary abnormality. No pleural effusion or pneumothorax. ABDOMEN Liver and Joe iary: Liver unremarkable. Cholecystectomy. Pancreas, Spleen and Adrenals: 3 mm calcificatio n in the uncinate process of the pancreas , stable. This appears inferior/medial to the CBD, probably due to chronic pancreatitis. I doubt distal CBD stone. CBD 7 mm, stable. P ancreas otherwise unremarkable. Spleen, adrenals unremarkable. Kidneys: 12 mm lateral mid l eft renal cyst with smaller inferior pole cystic lesion, unchanged perhaps due to smaller cy st, too small to characterize. Scarring lateral upper pole of the right kidney again noted. ABDOMEN AND PELVIS Bowel: No small bowel or colonic dilation or adjacent inflammation. No a ppendiceal dilation or inflammation. Vessels: Right common/proximal external iliac stent. N o other arterial abnormalities. No aneurysm. Patent portal vein. Lymph Nodes: Lymph node m edial to the pancreatic head measuring 1.4 x 3.0 cm, stable dating back 03/04/2016, benign. No other evidence of adenopathy. Peritoneum and Retroperitoneum: No free air. No ascites. P STEVE Genitourinary: Distal ureters and bladder appear normal. No pelvic masses. BODY WALL Soft Tissues: Abdominal wall hernia repair, with complex debris and air superficial to the m esh and deep to the abdominal wall measuring 12.3 cm transverse by 2.4 cm AP by 7.6 cm superoinferior dimension, slightly increased in size. This raises concern for abscess. Infi ltration of the abdominal wall in this region. No fistulization to the skin is seen present ly. Bones: Old healed right superior and inferior pubic rami/pubic symphyseal fractures, wit h plate and screw fixation of the right iliac wing extending through the SI joint, unchanged . Fusion right SI joint. Chronic compression of the central L4 vertebral body with preserve d periphery. Spondylotic changes of the spine. No listhesis. 1. Complex fluid and air collection deep to the abdominal wall but superficial to the mesh repair in the midline abdomen measuring 12.3 x 2.4 by 7.6 cm. While this may be due to [place], abscess must be considered. No fistula to the skin surface is seen presently. 2. Prob able chronic pancreatitis, cholecystectomy, right renal scarring, left renal cysts, chronic right pelvic fractures with repair, chronic L4 central superior endplate compression deformi ty. Signed by: Trevin Walker Shawn Sign Date/Time: 07/29/2019 6:06 PM Physical Examination: Vitals: 08/02/19 1549 BP: 120/71 Pulse: 61 Resp: 18 Temp: 36.6 C (97.9 F) Physical Exam Constitutional: He is oriented to person, place, and time. No distress. HENT: Head: Normocephalic and atraumatic. Neck: Neck supple. Cardiovascular: Normal rate. Pulmonary/Chest: Effort normal. No respiratory distress. Abdominal: Soft. There is no tenderness. Drain is in place and there is crusting around insertion site most likely due to the trauma tic pulling of the catheter. Output is purulent. Neurological: He is alert and oriented to person, place, and time. Skin: Skin is warm. He is not diaphoretic. Psychiatric: Mood and affect normal. Assessment and Plan: Abdominal wall abscess status post CT-guided abscess drainage and catheter placement. Cath eter appears to be appropriately placed and is maintaining purulent output. Catheter was fl ushed and aspirated without difficulty. Three-way stopcock was placed and staff toxicologist informed to flush twice daily with 10 cc of normal saline. Informed patient of parameters that we use before deciding to remove abscess drains, includ ing absence of fevers, normal WBC count, output that is serous rather than purulent, and out put of 10 ml or less for 2 consecutive days, without concern of clogged catheter. Possibly w ill inject catheter with fluoroscopic guidance or obtain CT prior to its removal to ensure r esolution of abscess. SRINATH HobbsC Vascular and Interventional Radiology Kelly Funk M D - 08/01/2019 12:04 PM PST [facility] Service: Infectious Disease Progress Note Hospital Day: LOS: 3 days Post-Op Day: * No surgery found * SUBJECTIVE Patient Summary: Re: Abdominal wall infection History of mesh for ventral hernia Events Overnight: Afebrile. Has fatigue, malaise, abdominal pain getting some relie f with current pain medications. No vomiting. Drain appears to continue to be functional. No pruritus, new skin rash Scheduled Medications amLODIPine 10 mg Oral Daily apixaban 5 mg Oral BID clopidogrel 75 mg Oral Daily gabapentin 600 mg Oral BID levoFLOXacin 750 mg Intravenous Daily metroNIDAZOLE 500 mg Intravenous 3 times per day oxyCODONE 15-30 mg Oral Q3H pantoprazole 40 mg Oral QAM AC tamsulosin 0.8 mg Oral Daily Continuous Infusions sodium chloride 0.9% 1,000 mL (07/31/19 1633) PRN Medications acetaminophen, albuterol, HYDROmorphone, LORazepam, melatonin, methocarbamol, ondansetron OBJECTIVE Vital Signs: Vitals: 08/01/19 0822 BP: 125/68 Pulse: 70 Resp: 18 Temp: 36.8 C (98.2 F) Physical Exam Vital signs reviewed General: Appears frail, not in acute distress Lungs: No adventitious breath sounds Cardiovascular: Normal rate. Regular rhythm Abdomen: No distention. Drain in place with brownish-looking drainage. No abdominal wall erythema. Positive bowel sounds. Soft. Some tenderness around the drain site. Skin: No drug rash DATA Recent Results (from the past 24 hour(s)) CBC with Differential Collection Time: 08/01/19 4:28 AM Result Value Ref Range WBC 10.41 3.80 - 11.00 K/uL RBC 3.44 (L) 4.20 - 5.70 M/uL Hemoglobin 10.1 (L) 13.2 - 17.0 g/dL Hematocrit 29.9 (L) 39.0 - 50.0 % MCV 87.0 80.0 - 100.0 fl MCH 29.5 27.0 - 34.0 pg MCHC 33.9 32.0 - 35.5 g/dL RDW-SD 49.4 37 - 53 fl Platelet Count 382 150 - 400 K/uL MPV 8.0 fl Diff Type AUTOMATED % Neutrophils 60.42 % % Lymphocytes 23.03 % Monocyte % 14.27 % Eosinophils % 1.70 % Basophils % 0.58 % Neutrophils, Absolute 6.29 1.90 - 7.40 K/uL Absolute Lymphocytes 2.40 1.00 - 3.90 K/uL Absolute Monocytes 1.49 (H) 0.00 - 0.80 K/uL Eosinophils, Absolute 0.18 0.00 - 0.50 K/uL Basophils, Absolute 0.06 0.00 - 0.10 K/uL Basic Metabolic Panel Collection Time: 08/01/19 4:28 AM Result Value Ref Range Na 138 135 - 145 mmol/L K 3.3 (L) 3.5 - 4.9 mmol/L Cl 106 99 - 109 mmol/L CO2 24 23 - 32 mmol/L Anion Gap 11 5 - 20 mmol/L Glucose 102 (H) 65 - 99 mg/dL BUN 13 8 - 25 mg/dL Creatinine 0.8 0.70 - 1.30 mg/dL BUN/Creatinine Ratio 16 Calcium 8.1 (L) 8.5 - 10.5 mg/dL Estimated GFR >60 >60 mL/min/1.73m2 Microbiology data: 07/30 abscess culture preliminary report of E. coli, 2+ mixed gram-positive deepa; Gram sta in shows 4+ WBCs, 1+ gram-positive cocci, 3+ gram-negative rods Escherichia coli (1) Antibiotic Interpretation Vitek 2XL Method Status Ampicillin Sensitive SUSCEPTIBLE ANDREW Preliminary Ampicillin + Sulbactam Sensitive SUSCEPTIBLE ANDREW Preliminary Cefepime Sensitive SUSCEPTIBLE ANDREW Preliminary Cefoxitin Sensitive SUSCEPTIBLE ANDREW Preliminary Ceftazidime Sensitive SUSCEPTIBLE ANDREW Preliminary Ceftriaxone Sensitive SUSCEPTIBLE ANDREW Preliminary Ciprofloxacin Sensitive SUSCEPTIBLE ANDREW Preliminary Gentamicin Sensitive SUSCEPTIBLE ANDREW Preliminary Levofloxacin Sensitive SUSCEPTIBLE ANDREW Preliminary Tobramycin Sensitive SUSCEPTIBLE ANDREW Preliminary Trimethoprim + Sulfamethoxazole Sensitive SUSCEPTIBLE ANDREW Preliminary 07/29 MRSA nasal PCR negative 07/29 blood cultures with no growth to date 07/29 urine culture with no growth 07/29 influenza negative Historical microbiology data: Wound culture Gram Stain Result 2+ WBC'S SEEN Gram Stain Result 3+ GRAM POSITIVE COCCI Gram Stain Result Testing performed at [facility];[address] [place] [id number] RESULT Abnormal 2+ ESCHERICHIA COLI RESULT Abnormal 2+ STREPTOCOCCUS GORDONII RESULT Abnormal 2+ PREVOTELLA ORALIS Resulting Agency [facility] Susceptibility Escherichia coli ANDREW Ampicillin SUSCEPTIBLE Sensitive Ampicillin + Sulbactam SUSCEPTIBLE Sensitive Cefepime SUSCEPTIBLE Sensitive Cefoxitin SUSCEPTIBLE Sensitive Ceftazidime SUSCEPTIBLE Sensitive Ceftriaxone SUSCEPTIBLE Sensitive Ciprofloxacin SUSCEPTIBLE Sensitive Gentamicin SUSCEPTIBLE Sensitive Levofloxacin SUSCEPTIBLE Sensitive Tobramycin SUSCEPTIBLE Sensitive Trimethoprim + Sulfamethoxazole SUSCEPTIBLE Sensitive Susceptibility Streptococcus gordonii ANDREW Clindamycin SUSCEPTIBLE Sensitive Erythromycin SUSCEPTIBLE Sensitive Levofloxacin SUSCEPTIBLE Sensitive Moxifloxacin SUSCEPTIBLE Sensitive Penicillin G SUSCEPTIBLE Sensitive Tetracycline SUSCEPTIBLE Sensitive Vancomycin SUSCEPTIBLE Sensitive1 1 Testing performed at [facility], [address] [place] [id number] Specimen Collected: 07/04/19 19:30 Last Resulted: 07/09/19 09:35 SPECIMEN SOURCE: A. SURGICAL MESH CLINICAL HISTORY: 12/18/2014 at 1050 H. Surgical mesh. FINAL PATHOLOGIC DIAGNOSIS: Surgical mesh, excision: - Fibroadipose tissue with scar and embedded foreign material, consistent with me sh - Patchy chronic inflammation and foreign body giant cell reaction - Negative for acute inflammation and neoplasia Imaging: CT of abdomen/pelvis IMPRESSION: 1. Complex fluid and air collection deep to the abdominal wall but superficial to the mesh repair in the midline abdomen measuring 12.3 x 2.4 by 7.6 cm. While this may be due to hematoma, abscess must be considered. No fistula to the skin surface is seen presently. 2. Probable chronic pancreatitis, cholecystectomy, right renal scarring, left renal cysts, chronic right pelvic fractures with repair, chronic L4 central superior endplate compression deformity. Signed by: Trevin Walker Shawn Sign Date/Time: 07/29/2019 6:06 PM CXR IMPRESSION: No significant abnormality. Signed by: Trevin Emery Gregory Sign Date/Time: 07/29/2019 4:[address] of abdomen/pelvis IMPRESSION: 1. Fluid collection with rim enhancement and multiple foci of air seen along the mesh repair of the anterior abdominal wall, measuring 11.6 x 2.5 x 5.6 cm. No definite intraperitoneal extension. A small draining tract from this collection is noted at the level of the umbilicus. Mild thickening and fat stranding in the anterior abdominal wall adjacent subcutaneous fat. 2. Some of the small bowel loops appear to be in close approximation to this collection along the mesh however no definite communication identified. No abnormal thickening of these bowel loops. 3. Other stable chronic findings as described above. Signed by: Trevin Meneses, Colleen Sign Date/Time: 07/04/2019 10:36 PM PROBLEM LIST Principal Problem: Abdominal wall abscess Active Problems: Abdominal pain, generalized History of traumatic brain injury HTN (hypertension), benign ASSESSMENT & PLAN Abdominal wall abscess -This is in the clinical context of a patient with history of traumatic brain injury, comp angy history of abdominal surgeries including hernia repair with mesh. From documentation, h is last surgery pertaining to the hernia was done on 11/2016 and that he had been under the c are of Dr. Jamie Bentley, [facility] surgery -He had been previously under the care of Dr. Rd Busby, [facility] ID but he and his travis thao indicate wanting to continue Infectious Diseases under [facility] at this time -Patient is not septic -He has history of penicillin allergy; although anaphylaxis is listed as a reaction in his chart, he really does not know what happened. His indicates that he had tolerated cep halexin previously with no adverse reaction -CT of the abdomen and pelvis on this admission indicate that the abscess is superficial to the mesh -Dr. Caldwell, Surgery, had been consulted from the ER; on his recommendation, patient has undergone CT-guided abscess drainage under IR with drain in place. Percutaneous drain in p lace slightly pulled out but still draining -Abscess Gram stain and culture preliminary report of E coli, quinolone S and mixed Gram p ositive deepa. Blood cultures with no growth to date. MRSA nasal PCR negative -07/04 wound culture grew E. coli, Streptococcus gordonii and 2+ Prevotella oralis -Continue IV levofloxacin/metronidazole -would recommend at least 14 days of antibiotic tr eatment with further antibiotic recommendations to be made with further microbiology data, c linical course, radiologic resolution of the abscess. Patient can potentially be transitioned to oral antibiotics at time of discharge. If patient has persistent/recurrent abdominal wall infection, will discuss case further wit h surgery with patient's history of ventral hernia and mesh in place Code Status: Full Code Kelly Dunlap MD 08/01/2019 Trisha Brannon DO - 08/01/2019 11:56 AM PST PROGRESS NOTE for Reza Cespedes on the hospitalist service. 08/01/2019 ASSESSMENT & PLAN Abd wall abscess Now treated with IR drain and IV abx, ID consulting, monitor cx's, drain was pulled out par tway overnight, but appears to be still draining/functioning, nursing eval'd, IR aware. HTN, PAD Restarted clopidogrel and Eliquis. Indication for Eliquis is unclear to me after chart revi ew, but we are deferring to outpatient management and continuing it. Continued amlodipine. Problem list: Principal Problem: Abdominal wall abscess Active Problems: Abdominal pain, generalized History of traumatic brain injury HTN (hypertension), benign Length of stay: 3 days Disposition: inpatient SUBJECTIVE Patient seen/examined lying in bed, spouse present, still doesn't feel great, having some a bd pain, no f/c or nausea. OBJECTIVE BP 125/68 | Pulse 70 | Temp 36.8 C (98.2 F) (Oral) | Resp 18 | Ht 1.803 m (5' 11") | SpO2 98% | BMI 30.32 kg/m Physical exam: AOx3 NAD Heart RRR Lungs CTA Abd SND +TTP mildly about the umbilicus, +BS Drain with more brown liquid Kai Dunne DO 08/01/2019 11:56 AM Kai Brannon DO - 10:34 AM PST PROGRESS NOTE for Reza Cespedes on the hospitalist service. 07/31/2019 ASSESSMENT & PLAN Abd wall abscess Now treated with IR drain and IV abx, ID consulting, monitor cx's, drain was pulled out par tway overnight, I d/w Dr Guevara today, we will assess for drain functionality and ability to flush, possible revision tomorrow if necessary. HTN, PAD Restarted clopidogrel and Eliquis. Indication for Eliquis is unclear to me after chart revi ew, but we are deferring to outpatient management and continuing it. Continued amlodipine. Problem list: Principal Problem: Abdominal wall abscess Active Problems: Abdominal pain, generalized History of traumatic brain injury HTN (hypertension), benign Length of stay: 2 days Disposition: inpatient SUBJECTIVE Patient seen/examined lying in bed, doesn't feel well, didn't sleep well and also pulled ou t drain partway when he was tossing and turning overnight, and that was very painful. OBJECTIVE BP 125/79 | Pulse 73 | Temp 37.3 C (99.1 F) (Oral) | Resp 18 | Ht 1.803 m (5' 11") | SpO2 91% | BMI 30.32 kg/m Physical exam: NAD AOx3 Heart RRR Lungs CTA Abd SNTND+BS Drain with brown liquid I spent over 35 minutes in reviewing patient s data, examination of patient and discussin g care of patient with patient and family. At least, 50% of time was face to face counseling or coordinating of care. Kai Dunne DO 07/31/2019 10:34 AM Chiquis Hatfield RN - 6:13 AM Lara put out 50 mL brown foul smelling fluid from drain. Dressing was reinforced and tubing secured to pt due to possible migration of drain when pt rolled in bed ; Dr. Guevara contacted, stated he will evaluate pt later this morning. Pain has been moderately controlled during shift. Pt has c/o some nausea; zofran given x2. Pt states he has been passing some gas. has been at bedside throughout shift. The call light is within reach; bed is in lowest and locked position. End of shift review c omplete. Chiquis Scherer RN 07/31/19 6:17 AM Kai Brannon DO - 1:15 PM PST PROGRESS NOTE for Reza Cespedes on the hospitalist service. 07/30/2019 ASSESSMENT & PLAN Abd wall abscess Now treated with IR drain and IV abx, ID to consult, I d/w Dr Dunlap, wound care may also be needed for outpatient plan. For now continue abx per ID and monitor cx. HTN, PAD Restart clopidogrel and Eliquis. Indication for Eliquis is unclear to me after chart review , but will defer to outpatient management and continue it. Continue amlodipine. Problem list: Principal Problem: Abdominal wall abscess Active Problems: Abdominal pain, generalized History of traumatic brain injury HTN (hypertension), benign Length of stay: 1 days Disposition: inpatient SUBJECTIVE Patient seen/examined lying in bed, feels a little groggy after procedure but otherwise no questions/complaints, denies f/c n/v abd pain, c/o drain material bad smell. OBJECTIVE BP 120/70 | Pulse 60 | Temp 36.7 C (98.1 F) (Oral) | Resp 15 | Ht 1.803 m (5' 11") | SpO2 96% | BMI 30.32 kg/m Physical exam: AOx3 NAD Heart RRR Lungs CTA Abd SNTND+BS Drain starting to show brownish material I spent over 35 minutes in reviewing patient s data, examination of patient and discussin g care of patient with patient and family. At least, 50% of time was face to face counseling or coordinating of care. Kai Dunne DO 07/30/2019 1:15 PM Ashley Quispe RN - 07/09 11:01 AM PSTPt tolerated abscess drain placement fairly well. Vss. Pt pain post proce dure '8' out of 10. Accordion drain placed and secured with device supplied. Pt received fen tanyl 175 ug and versed 3 mg IV during procedure. Report called to Delfina ARGUETA. Pt returned to inpt room 424-1 via stretcher by transportation director. Electronically signed by ELLIE Mcdonald 07/30/2019 11:04 AM Farhan Ortega [facility] - 07/29/2019 8:08 PM PSTRx Admission Med ication History Note I have reviewed the medication history for appropriate doses obtained by: ED Pharmacist After reviewing the home medication list : I agree with the home medications list. Confirmed [employer] medications with patient and insurance fill history. Adjusted [employer]GE[employer] medications according to the ultrasound technician note below. - removed omeprazole. Family reports was not helping so stopped taking. - gabapentin dose increased to 600 mg BID by outside MD from 300 mg TID. - added zofran PRN. - patient reports taking 2 inhalers, but albuterol is only inhaler on file. Please Review and Order Home Medications as necessary. Thanks FARHAN SULLIVAN PharmD 07/29/2019 8:05 PM documented in this encounter Plan of Treatment + +------+--------+ + + | Name | Type | Priori | Associated Diagnoses | Date/Time | | | | ty | | | + +------+--------+ + + | ED INFORMATION | CLOVER | Routin | | 07/29/2019 3:18 PM | | EXCHANGE | | e | | PST | + +------+--------+ + + + +------+--------+ + + | Name | Type | Priori | Associated Diagnoses | Order Schedule | | | | ty | | | + +------+--------+ + + | CBC with | Lab | Routin | Abdominal wall | Once a week for 6 | | Differential | | e | abscess | Occurrences starting | | | | | | 08/05/2019 until | | | | | | 08/05/2020 | + +------+--------+ + + | Comprehensive | Lab | Routin | Abdominal wall | Once a week for 6 | | Metabolic Panel | | e | abscess | Occurrences starting | | | | | | 08/05/2019 until | | | | | | 08/05/2020 | + +------+--------+ + + | C-Reactive Protein | Lab | Routin | Abdominal wall | Once a week for 6 | | | | e | abscess | Occurrences starting | | | | | | 08/05/2019 until | | | | | | 08/05/2020 | + +------+--------+ + + | Sedimentation Rate | Lab | Routin | Abdominal wall | Once a week for 6 | | | | e | abscess | Occurrences starting | | | | | | 08/05/2019 until | | | | | | 08/05/2020 | + +------+--------+ + + + + +--------+ + + | Name | Type | Priori | Associated Diagnoses | Order Schedule | | | | ty | | | + + +--------+ + + | Referral to Home | Outpatient | Routin | Intra-abdominal | Ordered: 08/09/2019 | | Health - OUTPATIENT | Referral | e | abscess (HCC) | | + + +--------+ + + documented as of this encounter Procedures + +--------+ + + + | Procedure Name | Priori | Date/Time | Associated Diagnosis | Comments | | | ty | | | | + +--------+ + + + | CBC WITH | Routin | 08/09/2019 | | Results for this | | DIFFERENTIAL | e | 4:54 AM | | procedure are in the | | | | PST | | results section. | + +--------+ + + + | BASIC METABOLIC | Routin | 08/09/2019 | | Results for this | | PANEL | e | 4:54 AM | | procedure are in the | | | | PST | | results section. | + +--------+ + + + | CBC WITH | Routin | 08/08/2019 | | Results for this | | DIFFERENTIAL | e | 4:36 AM | | procedure are in the | | | | PST | | results section. | + +--------+ + + + | BASIC METABOLIC | Routin | 08/08/2019 | | Results for this | | PANEL | e | 4:36 AM | | procedure are in the | | | | PST | | results section. | + +--------+ + + + | MRI LUMBAR SPINE WO | Routin | 08/07/2019 | | Results for this | | CONTRAST | e | 12:23 PM | | procedure are in the | | | | PST | | results section. | + +--------+ + + + | CBC WITH | Routin | 08/07/2019 | | Results for this | | DIFFERENTIAL | e | 5:45 AM | | procedure are in the | | | | PST | | results section. | + +--------+ + + + | MAGNESIUM | Routin | 08/07/2019 | | Results for this | | | e | 5:45 AM | | procedure are in the | | | | PST | | results section. | + +--------+ + + + | BASIC METABOLIC | Routin | 08/07/2019 | | Results for this | | PANEL | e | 5:45 AM | | procedure are in the | | | | PST | | results section. | + +--------+ + + + | CBC WITH | Routin | 08/06/2019 | | Results for this | | DIFFERENTIAL | e | 5:08 AM | | procedure are in the | | | | PST | | results section. | + +--------+ + + + | BASIC METABOLIC | Routin | 08/06/2019 | | Results for this | | PANEL | e | 5:08 AM | | procedure are in the | | | | PST | | results section. | + +--------+ + + + | CBC WITH | Routin | 08/05/2019 | | Results for this | | DIFFERENTIAL | e | 5:08 AM | | procedure are in the | | | | PST | | results section. | + +--------+ + + + | BASIC METABOLIC | Routin | 08/05/2019 | | Results for this | | PANEL | e | 5:08 AM | | procedure are in the | | | | PST | | results section. | + +--------+ + + + | CBC WITH | Routin | 08/04/2019 | | Results for this | | DIFFERENTIAL | e | 4:35 AM | | procedure are in the | | | | PST | | results section. | + +--------+ + + + | MAGNESIUM | Routin | 08/04/2019 | | Results for this | | | e | 4:35 AM | | procedure are in the | | | | PST | | results section. | + +--------+ + + + | COMPREHENSIVE | Routin | 08/04/2019 | | Results for this | | METABOLIC PANEL | e | 4:35 AM | | procedure are in the | | | | PST | | results section. | + +--------+ + + + | CBC WITH | Routin | 08/03/2019 | | Results for this | | DIFFERENTIAL | e | 5:02 AM | | procedure are in the | | | | PST | | results section. | + +--------+ + + + | COMPREHENSIVE | Routin | 08/03/2019 | | Results for this | | METABOLIC PANEL | e | 5:02 AM | | procedure are in the | | | | PST | | results section. | + +--------+ + + + | CT ABDOMEN PELVIS WO | SONALI | 08/02/2019 | | Results for this | | CONTRAST | | 7:20 PM | | procedure are in the | | | | PST | | results section. | + +--------+ + + + | CBC WITH | Routin | 08/02/2019 | | Results for this | | DIFFERENTIAL | e | 4:46 AM | | procedure are in the | | | | PST | | results section. | + +--------+ + + + | PHOSPHORUS | Routin | 08/02/2019 | | Results for this | | | e | 4:46 AM | | procedure are in the | | | | PST | | results section. | + +--------+ + + + | MAGNESIUM | Routin | 08/02/2019 | | Results for this | | | e | 4:46 AM | | procedure are in the | | | | PST | | results section. | + +--------+ + + + | BASIC METABOLIC | Routin | 08/02/2019 | | Results for this | | PANEL | e | 4:46 AM | | procedure are in the | | | | PST | | results section. | + +--------+ + + + | CBC WITH | Routin | 08/01/2019 | | Results for this | | DIFFERENTIAL | e | 4:28 AM | | procedure are in the | | | | PST | | results section. | + +--------+ + + + | BASIC METABOLIC | Routin | 08/01/2019 | | Results for this | | PANEL | e | 4:28 AM | | procedure are in the | | | | PST | | results section. | + +--------+ + + + | CBC WITH | Routin | 07/31/2019 | | Results for this | | DIFFERENTIAL | e | 4:39 AM | | procedure are in the | | | | PST | | results section. | + +--------+ + + + | BASIC METABOLIC | Routin | 07/31/2019 | | Results for this | | PANEL | e | 4:39 AM | | procedure are in the | | | | PST | | results section. | + +--------+ + + + | CULTURE, BODY FLUID | Routin | 07/30/2019 | | Results for this | | STERILE | e | 11:29 AM | | procedure are in the | | | | PST | | results section. | + +--------+ + + + | CT GUIDED DRAIN | SONALI | 07/30/2019 | | Results for this | | ABSCESS PERITONEAL | | 11:13 AM | | procedure are in the | | | | PST | | results section. | + +--------+ + + + | CBC WITH | Routin | 07/30/2019 | | Results for this | | DIFFERENTIAL | e | 8:05 AM | | procedure are in the | | | | PST | | results section. | + +--------+ + + + | PTT | Timed | 07/30/2019 | | Results for this | | | | 4:37 AM | | procedure are in the | | | | PST | | results section. | + +--------+ + + + | PROTIME INR | Timed | 07/30/2019 | | Results for this | | | | 4:37 AM | | procedure are in the | | | | PST | | results section. | + +--------+ + + + | COMPREHENSIVE | Routin | 07/30/2019 | | Results for this | | METABOLIC PANEL | e | 4:37 AM | | procedure are in the | | | | PST | | results section. | + +--------+ + + + | LACTIC ACID | Routin | 07/30/2019 | | Results for this | | | e | 12:54 AM | | procedure are in the | | | | PST | | results section. | + +--------+ + + + | MRSA NAAT | Routin | 07/29/2019 | | Results for this | | | e | 10:57 PM | | procedure are in the | | | | PST | | results section. | + +--------+ + + + | CULTURE, BLOOD | STAT | 07/29/2019 | | Results for this | | | | 10:23 PM | | procedure are in the | | | | PST | | results section. | + +--------+ + + + | CULTURE, BLOOD | STAT | 07/29/2019 | | Results for this | | | | 10:16 PM | | procedure are in the | | | | PST | | results section. | + +--------+ + + + | LACTIC ACID | Routin | 07/29/2019 | | Results for this | | | e | 10:16 PM | | procedure are in the | | | | PST | | results section. | + +--------+ + + + | URINALYSIS WITH | STAT | 07/29/2019 | | Results for this | | MICROSCOPIC | | 8:39 PM | | procedure are in the | | | | PST | | results section. | + +--------+ + + + | CULTURE, URINE | Routin | 07/29/2019 | | Results for this | | | e | 8:39 PM | | procedure are in the | | | | PST | | results section. | + +--------+ + + + | CULTURE, BLOOD | STAT | 07/29/2019 | | Results for this | | | | 8:38 PM | | procedure are in the | | | | PST | | results section. | + +--------+ + + + | CT ABDOMEN PELVIS W | STAT | 07/29/2019 | | Results for this | | CONTRAST | | 5:49 PM | | procedure are in the | | | | PST | | results section. | + +--------+ + + + | INFLUENZA A AND B | Routin | 07/29/2019 | | Results for this | | RNA, NAAT | e | 4:56 PM | | procedure are in the | | | | PST | | results section. | + +--------+ + + + | XR CHEST PA AND | SONALI | 07/29/2019 | | Results for this | | LATERAL | | 4:44 PM | | procedure are in the | | | | PST | | results section. | + +--------+ + + + | FLU SWAB COLLECTION | STAT | 07/29/2019 | | Results for this | | | | 4:30 PM | | procedure are in the | | | | PST | | results section. | + +--------+ + + + | CBC WITH | STAT | 07/29/2019 | | Results for this | | DIFFERENTIAL | | 4:30 PM | | procedure are in the | | | | PST | | results section. | + +--------+ + + + | C-REACTIVE PROTEIN | STAT | 07/29/2019 | | Results for this | | | | 4:30 PM | | procedure are in the | | | | PST | | results section. | + +--------+ + + + | LIPASE | STAT | 07/29/2019 | | Results for this | | | | 4:30 PM | | procedure are in the | | | | PST | | results section. | + +--------+ + + + | COMPREHENSIVE | STAT | 07/29/2019 | | Results for this | | METABOLIC PANEL | | 4:30 PM | | procedure are in the | | | | PST | | results section. | + +--------+ + + + | ED INFORMATION | Routin | 07/29/2019 | | | | EXCHANGE | e | 3:18 PM | | | | | | PST | | | + +--------+ + + + +---+--------+ | | | | | Proced | | | ure | | | Note - | | | Ethan, | | | Lab In | | | | | | Hlseve | | | n - | | | 11/22/ | | | 2019 | | | 3:19 | | | PM PST | | | | | | Format | | | ting | | | of | | | this | | | note | | | might | | | be | | | differ | | | ent | | | from | | | the | | | origin | | | al.COL | | | LECTIV | | | E?NOTI | | | FICATI | | | ON?11/ | | | 22/201 | | | 9 | | | 15:17? | | | KALAL, | | | | | | REZA | | | | | | D?MRN: | | | | | | [id number] | | | [id number] | | | riteri | | | a Met | | | Care | | | Guidel | | | inesSe | | | curity | | | and | | | Safety | | | No | | | recent | | | | | | Securi | | | ty | | | Events | | | | | | curren | | | tly on | | | | | | fileED | | | Care | | | Guidel | | | inesTh | | | ere | | | are | | | curren | | | tly no | | | ED | | | Care | | | Guidel | | | link | | | for | | | this | | | patien | | | t. | | | Please | | | check | | | your | | | facili | | | ty's | | | medica | | | l | | | record | | | s | | | system | | | .Care | | | Histor | | | yMedic | | | al/Mgiuelito | | | [email or web address] | | | /4/19 | | | 12:00 | | | AM | | | [facility] | | | al | | | PATIEN | | | T HAS | | | A | | | RHEUMA | | | TOLOGI | | | ST AT | | | [facility]- | | | DR | | | LATRICE.Pr | | | escrip | | | tion | | | Drug | | | Report | | | (12 | | | Mo.)PD | | | MP | | | query | | | found | | | no | | | report | | | .E.D. | | | Visit | | | Count | | | (12 | | | mo.)Fa | | | cility | | | | | | Visits | | | Low | | | Acuity | | | | | | [facility] | | | | | | [facility] | | | al | | | Med[facility] | | | l | | | Center | | | 2 0 | | | [facility] [place] | | | y | | | [facility] | | | al 4 0 | | | Total | | | 6 0 | | | Note: | | | Visits | | | | | | indica | | | te | | | total | | | known | | | visits | | | . | | | Medica | | | id Low | | | | | | Acuity | | | Dx | | | are | | | the | | | number | | | of | | | primar | | | y | | | diagno | | | ses on | | | the | | | Medica | | | id's | | | Low | | | Acuity | | | dx | | | list. | | | | | | Recent | | | | | | Emerge | | | ncy | | | Depart | | | ment | | | Visit | | | [facility] | | | yDate | | | Facili | | | ty | | | City | | | State | | | Type | | | Diagno | | | ses or | | | Chief | | | | | | Compla | | | int | | | Nov | | | 22, | | | 2019 | | | [facility] | | | | | | [facility] | | | al | | | [facility] | | | [place] | | | [place] | | | Emerge | | | ncy | | | Oct | | | 28, | | | 2019 | | | [facility] | | | | | | [facility] | | | al | | | [facility] | | | [place] | | | [place] | | | Emerge | | | ncy | | | Wound | | | Check | | | | | | Cutane | | | ous | | | absces | | | s of | | | abdomi | | | nal | | | wall | | | Oct | | | 27, | | | 2019 | | | [facility] | | [facility] | | | [place] | | | [place] | | | Emerge | | | ncy | | | | | | Allerg | | | y | | | status | | | to | | | penici | | | llin | | | | | | Allerg | | | y | | | status | | | to | | | analge | | | sic | | | agent | | | status | | | | | | Cutane | | | ous | | | absces | | | s of | | | abdomi | | | nal | | | wall | | | | | | Person | | | al | | | histor | | | y of | | | nicoti | | | ne | | | depend | | | ence | | | | | | Allerg | | | y | | | status | | | to | | | narcot | | | ic | | | agent | | | status | | | | | | Other | | | nonmed | | | icinal | | | | | | substa | | | nce | | | allerg | | | y | | | status | | | Sep | | | 20, | | | 2019 | | | [facility] | | | [place] | | | [place] | | | Emerge | | | ncy | | | | | | Dorsal | | | zaina, | | | unspec | | | ified | | | | | | Chest | | | pain, | | | unspec | | | ified | | | | | | Allerg | | | y | | | status | | | to | | | penici | | | llin | | | | | | Essent | | | ial | | | (prima | | | ry) | | | hypert | | | ension | | | | | | Person | | | al | | | histor | | | y of | | | nicoti | | | ne | | | depend | | | ence | | | | | | Allerg | | | y | | | status | | | to | | | analge | | | sic | | | agent | | | status | | | | | | Upper | | | abdomi | | | nal | | | pain, | | | unspec | | | ified | | | | | | Other | | | nonmed | | | icinal | | | | | | substa | | | nce | | | allerg | | | y | | | status | | | Mar | | | 1, | | | 2019 | | | [facility] | | | [facility] | | | [place] | | | [place] | | | Emerge | | | ncy | | | Other | | | | | | chroni | | | c pain | | | | | | Dissec | | | tion | | | of | | | iliac | | | artery | | | | | | Person | | | al | | | histor | | | y of | | | other | | | infect | | | ious | | | and | | | parasi | | | tic | | | diseas | | | es | | | Oth | | | allerg | | | y | | | status | | | , oth | | | than | | | to | | | drugs | | | and | | | biolg | | | substa | | | nces | | | | | | Person | | | al | | | histor | | | y of | | | nicoti | | | ne | | | depend | | | ence | | | | | | Major | | | depres | | | sive | | | disord | | | er, | | | single | | | | | | episod | | | e, | | | unspec | | | ified | | | | | | Anxiet | | | y | | | disord | | | er, | | | unspec | | | ified | | | | | | Allerg | | | y | | | status | | | to | | | oth | | | drug/m | | | eds/bi | | | ol | | | subst | | | status | | | | | | Other | | | long | | | term | | | (curre | | | nt) | | | drug | | | therap | | | y | | | Allerg | | | y | | | status | | | to | | | penici | | | llin | | | Feb | | | 13, | | | 2019 | | | [facility] | | [facility] | | | [place] | | | [place] | | | Emerge | | | ncy | | | | | | Contus | | | ion of | | | right | | | hip, | | | initia | | | l | | | encoun | | | ter | | | Pain | | | in | | | right | | | hip | | | Fall | | | on | | | same | | | level | | | due to | | | ice | | | and | | | snow, | | | initia | | | l | | | encoun | | | ter | | | | | | Person | | | al | | | histor | | | y of | | | nicoti | | | ne | | | depend | | | ence | | | | | | Allerg | | | y | | | status | | | to | | | penici | | | llin | | | | | | Allerg | | | y | | | status | | | to | | | oth | | | drug/m | | | eds/bi | | | ol | | | subst | | | status | | | | | | Anxiet | | | y | | | disord | | | er, | | | unspec | | | ified | | | | | | Other | | | nonmed | | | icinal | | | | | | substa | | | nce | | | allerg | | | y | | | status | | | | | | Other | | | long | | | term | | | (curre | | | nt) | | | drug | | | therap | | | y | | | Major | | | depres | | | sive | | | disord | | | er, | | | single | | | | | | episod | | | e, | | | unspec | | | ified | | | | | | Recent | | | | | | Inpati | | | ent | | | Visit | | | [facility] | | | yNo | | | record | | | ed | | | inpati | | | ent | | | visits | | | . Care | | | | | | TeamPr | | | ovider | | | | | | Specia | | | lty | | | Phone | | | Fax | | | Servic | | | e | | | Dates | | | [facility] | | | os, | | | [facility] | | | Case | | | Manage | | | r/Care | | | | | | Coordi | | | nator | | | [phone] | | | [phone] | | | 10 | | | Josiah 1, | | | 2019 | | | - | | | Curren | | | t L, | | | ANNY | | | L | | | PHYLLI | | | S, | | | [employer]ICIAN-C | | | Nurse | | | Practi | | | tioner | | | : | | | Family | | | Feb | | | 14, | | | 2019 - | | | | | | Curren | | | t | | | [facility] | | | os, | | | [place] | | | | | | Primar | | | y Care | | | ([phone]) | | | | | | [phone] | | | 10 | | | Josiah 1, | | | 2019 | | | - | | | Curren | | | t | | | [facility] | | | tive | | | Portal | | | This | | | patien | | | t has | | | regist | | | ered | | | at the | | | | | | [facility] | | | | | | [facility] | | | al | | | Medica | | | l | | | Center | | | | | | Emerge | | | ncy | | | Depart | | | ment | | | For | | | more | | | inform | | | ation | | | visit: | | | | | | https: | | | //secu | | | [email or web address] | | | lectiv | | | emedic | | | [email or web address] | | | /notif | | | [id number] | | | [id number] | | | [id number] | | | [id number] | | | [id number]-[id number] | | | [id number] | | | 7f | | | PLEASE | | | NOTE: | | | 1. | | | Any | | | care | | | recomm | | | endati | | | ons | | | and | | | other | | | clinic | | | al | | | inform | | | ation | | | are | | | provid | | | ed as | | | guidel | | | link | | | or for | | | | | | histor | | | ical | | | purpos | | | es | | | only, | | | and | | | provid | | | ers | | | should | | | | | | exerci | | | se | | | their | | | own | | | clinic | | | al | | | judgme | | | nt | | | when | | | provid | | | ing | | | care. | | | 2. | | | You | | | may | | | only | | | use | | | this | | | inform | | | ation | | | for | | | purpos | | | es of | | | treatm | | | ent, | | | paymen | | | t or | | | health | | | care | | | operat | | | ions | | | activi | | | ties, | | | and | | | subjec | | | t to | | | the | | | limita | | | tions | | | of | | | applic | | | able | | | [facility] | | | tive | | | Polici | | | es. | | | 3. | | | You | | | should | | | | | | consul | | | t | | | direct | | | ly | | | with | | | the | | | organi | | | zation | | | that | | | provid | | | ed a | | | care | | | guidel | | | ine or | | | other | | | | | | clinic | | | al | | | histor | | | y with | | | any | | | questi | | | ons | | | about | | | additi | | | onal | | | inform | | | ation | | | or | | | accura | | | cy or | | | comple | | | teness | | | of | | | inform | | | ation | | | provid | | | ed.? | | | 2018 | | | [facility] | | | tive | | | Medica | | | l | | | [employer] | | | logies | | | , [employer] | | | - | | | [email or web address] | | | llecti | | | vemedi | | | [email or web address] | | | m | +---+--------+ documented in this encounter Results Basic Metabolic Panel (08/09/2019 4:54 AM PST) + + + + + + | Component | Value | Ref Range | Performed | Pathologist | | | | | At | Signature | + + + + + + | Na | 139 | 135 - 145 | [facility] | | | | | mmol/L | LABORATORY | | + + + + + + | K | 4.2 | 3.5 - 4.9 | [facility] | | | | | mmol/L | LABORATORY | | + + + + + + | Cl | 106 | 99 - 109 mmol/L | [facility] | | | | | | LABORATORY | | + + + + + + | CO2 | 29 | 23 - 32 mmol/L | [facility] | | | | | | LABORATORY | | + + + + + + | Anion Gap | 8 | 5 - 20 mmol/L | [facility] | | | | | | LABORATORY | | + + + + + + | Glucose | 99 | 65 - 99 mg/dL | [facility] [...] + + + + | BUN/Creatin | 20 | | [facility] | | | ine Ratio | | | LABORATORY | | + + + + + + | Calcium | 8.6 | 8.5 - 10.5 | [facility] | [...] | | | | | performed at [facility], [address] | | | | | [facility], | | | | | | [place] [address] | | | | + + + + + + + + | Specimen | + + | Blood | + + + + + + + | Performing | Address | City/State/Zipcode | Phone Number | | Organization | | | | + + + + + | [facility] | [address] | [place] [address] | [phone] | + + + + + CBC with Differential (08/09/2019 4:54 AM PST) + + + + + + | Component | Value | Ref Range | Performed | Pathologist | | | | | At | Signature | + + + + + + | WBC | 8.11 | 3.80 - 11.00 | [facility] | | | | | K/uL | LABORATORY | | + + + + + + | RBC | 3.68 (L) | 4.20 - 5.70 | [facility] | | | | | M/uL | LABORATORY | | + + + + + + | Hemoglobin | 10.8 (L) | 13.2 - 17.0 | [facility] | | | | | g/dL | LABORATORY | | + + + + + + | Hematocrit | 32.2 (L) | 39.0 - 50.0 % | [facility] | | | | | | LABORATORY | | + + + + + + | MCV | 87.5 | 80.0 - 100.0 fl | [facility] | | | | | | LABORATORY | | + + + + + + | MCH | 29.3 | 27.0 - 34.0 pg | [facility] | | | | | | LABORATORY | | + + + + + + | MCHC | 33.5 | 32.0 - 35.5 | [facility] | | | | | g/dL | LABORATORY | | + + + + + + | RDW-SD | 53.8 (H) | 37 - 53 fl | [facility] | | | | | | LABORATORY | | + + + + + + | Platelet | 408 (H) | 150 - 400 K/uL | [facility] | | | Count | | | LABORATORY | | + + + + + + | MPV | 7.4 | fl | [facility] | | | | | | LABORATORY | | + + + + + + | Diff Type | AUTOMATED | | [facility] | | | | | | LABORATORY | | + + + + + + | % | 51.98 | % | [facility] | | | Neutrophils | | | LABORATORY | | + + + + + + | % | 30.80 | % | [facility] | | | Lymphocytes | | | LABORATORY | | + + + + + + | Monocyte % | 12.10 | % | [facility] | | | | | | LABORATORY | | + + + + + + | Eosinophils | 3.97 | % | [facility] | | | % | | | LABORATORY | | + + + + + + | Basophils % | 1.15 | % | [facility] | | | | | | LABORATORY | | + + + + + + | Neutrophils | 4.22 | 1.90 - 7.40 | [facility] | | | , Absolute | | K/uL | LABORATORY | | + + + + + + | Absolute | 2.50 | 1.00 - 3.90 | [facility] | | | Lymphocytes | | K/uL | LABORATORY | | + + + + + + | Absolute | 0.98 (H) | 0.00 - 0.80 | [facility] | | | Monocytes | | K/uL | LABORATORY | | + + + + + + | Eosinophils | 0.32 | 0.00 - 0.50 | [facility] | | | , Absolute | | K/uL | LABORATORY | | + + + + + + | Basophils, | 0.09Comment: Testing | 0.00 - 0.10 | [facility] | | | Absolute | performed at [facility];[id number] | K/u[address] | LABORATORY | | | | [address];[place], [place] | | | | | | [address] | | | | + + + + + + + + | Specimen | + + | Blood | + + + + + + + | Performing | Address | City/State/Zipcode | Phone Number | | Organization | | | | + + + + + | [facility] | [address] | [place] [address] | [phone] | + + + + + CBC with Differential (08/08/2019 4:36 AM PST) + + + + + + | Component | Value | Ref Range | Performed | Pathologist | | | | | At | Signature | + + + + + + | WBC | 8.63 | 3.80 - 11.00 | [facility] | | | | | K/uL | LABORATORY | | + + + + + + | RBC | 3.53 (L) | 4.20 - 5.70 | [facility] | | | | | M/uL | LABORATORY | | + + + + + + | Hemoglobin | 10.5 (L) | 13.2 - 17.0 | [facility] | | | | | g/dL | LABORATORY | | + + + + + + | Hematocrit | 31.0 (L) | 39.0 - 50.0 % | [facility] | | | | | | LABORATORY | | + + + + + + | MCV | 87.8 | 80.0 - 100.0 fl | [facility] | | | | | | LABORATORY | | + + + + + + | MCH | 29.6 | 27.0 - 34.0 pg | [facility] | | | | | | LABORATORY | | + + + + + + | MCHC | 33.7 | 32.0 - 35.5 | [facility] | | | | | g/dL | LABORATORY | | + + + + + + | RDW-SD | 52.9 | 37 - 53 fl | [facility] | | | | | | LABORATORY | | + + + + + + | Platelet | 393 | 150 - 400 K/uL | [facility] | | | Count | | | LABORATORY | | + + + + + + | MPV | 7.8 | fl | [facility] | | | | | | LABORATORY | | + + + + + + | Diff Type | AUTOMATED | | [facility] | | | | | | LABORATORY | | + + + + + + | % | 54.78 | % | [facility] | | | Neutrophils | | | LABORATORY | | + + + + + + | % | 30.96 | % | [facility] | | | Lymphocytes | | | LABORATORY | | + + + + + + | Monocyte % | 9.21 | % | [facility] | | | | | | LABORATORY | | + + + + + + | Eosinophils | 3.92 | % | [facility] | | | % | | | LABORATORY | | + + + + + + | Basophils % | 1.13 | % | [facility] | | | | | | LABORATORY | | + + + + + + | Neutrophils | 4.73 | 1.90 - 7.40 | [facility] | | | , Absolute | | K/uL | LABORATORY | | + + + + + + | Absolute | 2.67 | 1.00 - 3.90 | [facility] | | | Lymphocytes | | K/uL | LABORATORY | | + + + + + + | Absolute | 0.80 | 0.00 - 0.80 | [facility] | | | Monocytes | | K/uL | LABORATORY | | + + + + + + | Eosinophils | 0.34 | 0.00 - 0.50 | [facility] | | | , Absolute | | K/uL | LABORATORY | | + + + + + + | Basophils, | 0.10Comment: Testing | 0.00 - 0.10 | [facility] | | | Absolute | performed at [facility], [address] | K/u[address] | LABORATORY | | | | [address], | | | | | | [place] [address] | | | | + + + + + + + + | Specimen | + + | Blood | + + + + + + + | Performing | Address | City/State/Zipcode | Phone Number | | Organization | | | | + + + + + | [facility] | [address] | [place] [address] | [phone] | + + + + + Basic Metabolic Panel (08/08/2019 4:36 AM PST) + + + + + + | Component | Value | Ref Range | Performed | Pathologist | | | | | At | Signature | + + + + + + | Na | 139 | 135 - 145 | [facility] | | | | | mmol/L | LABORATORY | | + + + + + + | K | 3.7 | 3.5 - 4.9 | [facility] | | | | | mmol/L | LABORATORY | | + + + + + + | Cl | 105 | 99 - 109 mmol/L | [facility] | | | | | | LABORATORY | | + + + + + + | CO2 | 30 | 23 - 32 mmol/L | [facility] | | | | | | LABORATORY | | + + + + + + | Anion Gap | 8 | 5 - 20 mmol/L | [facility] | | | | | | LABORATORY | | + + + + + + | Glucose | 127 (H) | 65 - 99 mg/dL | [...] + + + + | BUN/Creatin | 20 | | [facility] | | | ine Ratio | | | LABORATORY | | + + + + + + | Calcium | 8.4 (L) | 8.5 - 10.5 | [facility] [...] | | | | | performed at [facility], [address] | | | | | | [address] [facility], | | | | | | [place] [address] | | | | + + + + + + + + | Specimen | + + | Blood | + + + + + + + | Performing | Address | City/State/Zipcode | Phone Number | | Organization | | | | + + + + + | [facility] | [address] | [place] [address] | [phone] | + + + + + MRI Lumbar Spine wo Contrast (08/07/2019 12:23 PM PST) + + | Specimen | + + | | + + + + + | Impressions | Performed At | + + + | 1. No substantial interval change. 2. No new disc herniation or | [facility] | | high-grade stenosis. 3. Mild spinal canal stenosis at L2-3 and L3-4. | | | 4. Multilevel tmur-ie-qntpchpn neural foraminal stenosis. 5. | | | Moderate to severe facet arthropathy at L5-S1, left greater than | | | right, with associated left facet joint effusion and periarticular | | | edema suggesting active inflammation/synovitis Signed by: | | | Trevin Ibrahim, Jose Miguel Sign Date/Time: 08/07/2019 12:29 PM | | + + + + + + | Narrative | Performed At | + + + | MRI LUMBAR SPINE WITHOUT CONTRAST CLINICAL INFORMATION: | [facility] | | Lumbosacral osteoarthritis. COMPARISON: MRI LUMBAR SPINE WO | | | CONTRAST (12/10/2017); PROCEDURE: Sagittal T2, axial T2, sagittal | | | T1, axial T1, sagittal STIR sequences. FINDINGS: Alignment: | | | Minimal grade 1 anterolisthesis of L5 on S1. Vertebrae and | | | vertebral marrow signal: Mild L4 superior endplate height loss with | | | chronic appearance. No evidence of a recent fracture. Conus and | | | imaged portions of the caudal cord: Normal. Lumbar disc levels: | | | L1-2: The disc is preserved. No disc herniation or significant disc | | | bulge. The facet joints are normal. No significant spinal canal | | | stenosis or neural foraminal stenosis. L2-3: The disc is | | | preserved. Mild disc bulge with posterior high-intensity zone. Mild | | | facet arthropathy. Mild spinal canal stenosis. Minimal bilateral | | | neural foraminal stenosis. L3-4: The disc is dehydrated with | | | minimal height loss. Mild disc bulge. Mild facet arthropathy. | | | Mild spinal canal stenosis. Huvk-fj-vbxwddfk lateral recess | | | stenosis. Mild bilateral neural foraminal stenosis. L4-5: The | | | disc is preserved. Minimal disc bulge. Fsyq-tw-rfpufqrx facet | | | arthropathy. No significant spinal canal stenosis. Hmvc-zw-xlcsenlj | | | left and mild right neural foraminal stenosis. L5-S1: The disc is | | | preserved. Minimal disc bulge. Moderate to severe facet | | | arthropathy, left worse than right with left facet joint effusion and | | | associated periarticular edema.. No significant spinal canal | | | stenosis. Leti-vk-llplhrps bilateral neural foraminal stenosis. | | | Paraspinal musculature and paravertebral soft tissues: Normal. | | + + + + + | Procedure Note | + + | Ethan, Rad Results In - 08/07/2019 12:33 PM PST | | MRI LUMBAR SPINE WITHOUT CONTRAST | | | | CLINICAL INFORMATION: | | Lumbosacral osteoarthritis. | | | | COMPARISON: | | MRI LUMBAR SPINE WO CONTRAST (12/10/2017); | | | | PROCEDURE: | | Sagittal T2, axial T2, sagittal T1, axial T1, sagittal STIR sequences. | | | | FINDINGS: | | Alignment: Minimal grade 1 anterolisthesis of L5 on S1. | | | | Vertebrae and vertebral marrow signal: Mild L4 superior endplate height | | loss with chronic appearance. No evidence of a recent fracture. | | | | Conus and imaged portions of the caudal cord: Normal. | | | | Lumbar disc levels: | | | | L1-2: The disc is preserved. No disc herniation or significant disc | | bulge. The facet joints are normal. No significant spinal canal | | stenosis or neural foraminal stenosis. | | | | L2-3: The disc is preserved. Mild disc bulge with posterior | | high-intensity zone. Mild facet arthropathy. Mild spinal canal | | stenosis. Minimal bilateral neural foraminal stenosis. | | | | L3-4: The disc is dehydrated with minimal height loss. Mild disc | | bulge. Mild facet arthropathy. Mild spinal canal stenosis. | | Vabq-qs-nvburxhv lateral recess stenosis. Mild bilateral neural | | foraminal stenosis. | | | | L4-5: The disc is preserved. Minimal disc bulge. Nuuy-al-gvjhqyzj | | facet arthropathy. No significant spinal canal stenosis. | | Tady-ja-nviqnhdv left and mild right neural foraminal stenosis. | | | | L5-S1: The disc is preserved. Minimal disc bulge. Moderate to severe | | facet arthropathy, left worse than right with left facet joint effusion | | and associated periarticular edema.. No significant spinal canal | | stenosis. Sblp-rp-bogarevb bilateral neural foraminal stenosis. | | | | Paraspinal musculature and paravertebral soft tissues: Normal. | | | | IMPRESSION: | | 1. No substantial interval change. | | 2. No new disc herniation or high-grade stenosis. | | 3. Mild spinal canal stenosis at L2-3 and L3-4. | | 4. Multilevel qvcl-gq-ryeeddpo neural foraminal stenosis. | | 5. Moderate to severe facet arthropathy at L5-S1, left greater than | | right, with associated left facet joint effusion and periarticular | | edema suggesting active inflammation/synovitis | | | | | | | | | | Signed by: Trevin Ibrahim Ryan | | Sign Date/Time: 08/07/2019 12:29 PM | + + + +---------+ + + | Performing | Address | City/State/Zipcode | Phone Number | | Organization | | | | + +---------+ + + | [facility] | | | | + +---------+ + + Magnesium (08/07/2019 5:45 AM PST) + + + + + + | Component | Value | Ref Range | Performed | Pathologist | | | | | At | Signature | + + + + + + | Magnesium | 2.3Comment: Testing | 1.7 - 2.4 mg/dL | [facility] | | | | performed at [facility], [address] | | LABORATORY | | | | [place], | | | | | | [place] [address] | | | | + + + + + + + + | Specimen | + + | Blood | + + + + + + + | Performing | Address | City/State/Zipcode | Phone Number | | Organization | | | | + + + + + | [facility] | [address] | [place] [address] | [phone] | + + + + + CBC with Differential (08/07/2019 5:45 AM PST) + + + + + + | Component | Value | Ref Range | Performed | Pathologist | | | | | At | Signature | + + + + + + | WBC | 9.19 | 3.80 - 11.00 | [facility] | | | | | K/uL | LABORATORY | | + + + + + + | RBC | 3.52 (L) | 4.20 - 5.70 | [facility] | | | | | M/uL | LABORATORY | | + + + + + + | Hemoglobin | 10.4 (L) | 13.2 - 17.0 | [facility] | | | | | g/dL | LABORATORY | | + + + + + + | Hematocrit | 30.7 (L) | 39.0 - 50.0 % | [facility] | | | | | | LABORATORY | | + + + + + + | MCV | 87.4 | 80.0 - 100.0 fl | [facility] | | | | | | LABORATORY | | + + + + + + | MCH | 29.7 | 27.0 - 34.0 pg | [facility] | | | | | | LABORATORY | | + + + + + + | MCHC | 34.0 | 32.0 - 35.5 | [facility] | | | | | g/dL | LABORATORY | | + + + + + + | RDW-SD | 52.5 | 37 - 53 fl | [facility] | | | | | | LABORATORY | | + + + + + + | Platelet | 421 (H) | 150 - 400 K/uL | [facility] | | | Count | | | LABORATORY | | + + + + + + | MPV | 7.8 | fl | [facility] | | | | | | LABORATORY | | + + + + + + | Diff Type | AUTOMATED | | [facility] | | | | | | LABORATORY | | + + + + + + | % | 52.04 | % | [facility] | | | Neutrophils | | | LABORATORY | | + + + + + + | % | 32.70 | % | [facility] | | | Lymphocytes | | | LABORATORY | | + + + + + + | Monocyte % | 10.78 | % | [facility] | | | | | | LABORATORY | | + + + + + + | Eosinophils | 3.56 | % | [facility] | | | % | | | LABORATORY | | + + + + + + | Basophils % | 0.92 | % | [facility] | | | | | | LABORATORY | | + + + + + + | Neutrophils | 4.78 | 1.90 - 7.40 | [facility] | | | , Absolute | | K/uL | LABORATORY | | + + + + + + | Absolute | 3.00 | 1.00 - 3.90 | [facility] | | | Lymphocytes | | K/uL | LABORATORY | | + + + + + + | Absolute | 0.99 (H) | 0.00 - 0.80 | [facility] | | | Monocytes | | K/uL | LABORATORY | | + + + + + + | Eosinophils | 0.33 | 0.00 - 0.50 | [facility] | | | , Absolute | | K/uL | LABORATORY | | + + + + + + | Basophils, | 0.08Comment: Testing | 0.00 - 0.10 | [facility] | | | Absolute | performed at [facility], [address] | K/uL | LABORATORY | | | | [place], | | | | | | [place] [address] | | | | + + + + + + + + | Specimen | + + | Blood | + + + + + + + | Performing | Address | City/State/Zipcode | Phone Number | | Organization | | | | + + + + + | [facility] | [address] | [place] [address] | [phone] | + + + + + Basic Metabolic Panel (08/07/2019 5:45 AM PST) + + + + + + | Component | Value | Ref Range | Performed | Pathologist | | | | | At | Signature | + + + + + + | Na | 139 | 135 - 145 | [facility] | | | | | mmol/L | LABORATORY | | + + + + + + | K | 3.8 | 3.5 - 4.9 | [facility] | | | | | mmol/L | LABORATORY | | + + + + + + | Cl | 105 | 99 - 109 mmol/L | [facility] | | | | | | LABORATORY | | + + + + + + | CO2 | 30 | 23 - 32 mmol/L | [facility] | | | | | | LABORATORY | | + + + + + + | Anion Gap | 8 | 5 - 20 mmol/L | [facility] | | | | | | LABORATORY | | + + + + + + | Glucose | 92 | 65 - 99 mg/dL | [facility] | | | | | | LABORATORY | | + + + + + + | BUN | 15 | 8 - 25 mg/dL | [facility] | | | | | | LABORATORY | | + + + + + + | Creatinine | 0.8 | 0.70 - 1.30 | [facility] | | | | | mg/dL | LABORATORY | | + + + + + + | BUN/Creatin | 19 | | [facility] | | | ine Ratio | | | LABORATORY | | + + + + + + | Calcium | 8.4 (L) | 8.5 - 10.5 | [facility] | | | | | mg/dL | [...] | | | | | | [facility] traceable | | | | | | equation.Testing | | | | | | performed at [facility], [address] | | | | | | [facility], | | | | | | [place] [address] | | | | + + + + + + + + | Specimen | + + | Blood | + + + + + + + | Performing | Address | City/State/Zipcode | Phone Number | | Organization | | | | + + + + + | [facility] | [address] | [place] [address] | [phone] | + + + + + Basic Metabolic Panel (08/06/2019 5:08 AM PST) + + + + + + | Component | Value | Ref Range | Performed | Pathologist | | | | | At | Signature | + + + + + + | Na | 140 | 135 - 145 | [facility] | | | | | mmol/L | LABORATORY | | + + + + + + | K | 3.8 | 3.5 - 4.9 | [facility] | | | | | mmol/L | LABORATORY | | + + + + + + | Cl | 107 | 99 - 109 mmol/L | [facility] | | | | | | LABORATORY | | + + + + + + | CO2 | 29 | 23 - 32 mmol/L | [facility] | | | | | | LABORATORY | | + + + + + + | Anion Gap | 8 | 5 - 20 mmol/L | [facility] | | | | | | LABORATORY | | + + + + + + | Glucose | 109 (H) | 65 - 99 mg/dL | [facility] | | | | | | LABORATORY | | + + + + + + | BUN | 13 | 8 - 25 mg/dL | [facility] [...] | >60Comment: GFR <60: | >60 | [facility] | | | GFR | CHRONIC KIDNEY [...] | | | | | | [facility]D [facility] traceable | | | | | | equation.Testing | | | | | | performed at [facility], [address] | | | | | | [facility], | | | | | | [place] [address] | | | | + + + + + + + + | Specimen | + + | Blood | + + + + + + + | Performing | Address | City/State/Zipcode | Phone Number | | Organization | | | | + + + + + | [facility] | [address] | [place] [address] | [phone] | + + + + + CBC with Differential (08/06/2019 5:08 AM PST) + + + + + + | Component | Value | Ref Range | Performed | Pathologist | | | | | At | Signature | + + + + + + | WBC | 8.14 | 3.80 - 11.00 | [facility] | | | | | K/uL | LABORATORY | | + + + + + + | RBC | 3.62 (L) | 4.20 - 5.70 | [facility] | | | | | M/uL | LABORATORY | | + + + + + + | Hemoglobin | 10.7 (L) | 13.2 - 17.0 | [facility] | | | | | g/dL | LABORATORY | | + + + + + + | Hematocrit | 31.7 (L) | 39.0 - 50.0 % | [facility] | | | | | | LABORATORY | | + + + + + + | MCV | 87.5 | 80.0 - 100.0 fl | [facility] | | | | | | LABORATORY | | + + + + + + | MCH | 29.5 | 27.0 - 34.0 pg | [facility] | | | | | | LABORATORY | | + + + + + + | MCHC | 33.8 | 32.0 - 35.5 | [facility] | | | | | g/dL | LABORATORY | | + + + + + + | RDW-SD | 51.2 | 37 - 53 fl | [facility] | | | | | | LABORATORY | | + + + + + + | Platelet | 426 (H) | 150 - 400 K/uL | [facility] | | | Count | | | LABORATORY | | + + + + + + | MPV | 7.6 | fl | [facility] | | | | | | LABORATORY | | + + + + + + | Diff Type | AUTOMATED | | [facility] | | | | | | LABORATORY | | + + + + + + | % | 49.87 | % | [facility] | | | Neutrophils | | | LABORATORY | | + + + + + + | % | 34.57 | % | [facility] | | | Lymphocytes | | | LABORATORY | | + + + + + + | Monocyte % | 10.22 | % | [facility] | | | | | | LABORATORY | | + + + + + + | Eosinophils | 4.16 | % | [facility] | | | % | | | LABORATORY | | + + + + + + | Basophils % | 1.18 | % | [facility] | | | | | | LABORATORY | | + + + + + + | Neutrophils | 4.06 | 1.90 - 7.40 | [facility] | | | , Absolute | | K/uL | LABORATORY | | + + + + + + | Absolute | 2.81 | 1.00 - 3.90 | [facility] | | | Lymphocytes | | K/uL | LABORATORY | | + + + + + + | Absolute | 0.83 (H) | 0.00 - 0.80 | [facility] | | | Monocytes | | K/uL | LABORATORY | | + + + + + + | Eosinophils | 0.34 | 0.00 - 0.50 | [facility] | | | , Absolute | | K/uL | LABORATORY | | + + + + + + | Basophils, | 0.10Comment: Testing | 0.00 - 0.10 | [facility] | | | Absolute | performed at [facility], [address] | K/uL | LABORATORY | | | | [facility], | | | | | | [place] [address] | | | | + + + + + + + + | Specimen | + + | Blood | + + + + + + + | Performing | Address | City/State/Zipcode | Phone Number | | Organization | | | | + + + + + | [facility] | [address] | [place] [address] | [phone] | + + + + + Basic Metabolic Panel (08/05/2019 5:08 AM PST) + + + + + + | Component | Value | Ref Range | Performed | Pathologist | | | | | At | Signature | + + + + + + | Na | 140 | 135 - 145 | [facility] | | | | | mmol/L | LABORATORY | | + + + + + + | K | 3.5 | 3.5 - 4.9 | [facility] | | | | | mmol/L | LABORATORY | | + + + + + + | Cl | 107 | 99 - 109 mmol/L | [facility] | | | | | | LABORATORY | | + + + + + + | CO2 | 28 | 23 - 32 mmol/L | [facility] | | | | | | LABORATORY | | + + + + + + | Anion Gap | 9 | 5 - 20 mmol/L | [facility] | | | | | | LABORATORY | | + + + + + + | Glucose | 97 | 65 - 99 mg/dL | [facility] | | | | | | LABORATORY | | + + + + + + | BUN | 11 | 8 - 25 mg/dL | [facility] [...] + + + + | Calcium | 8.3 (L) | 8.5 - 10.5 | [facility] | | | | | mg/dL | LABORATORY | | + + + + + + | Estimated | >60Comment: GFR <60: | >60 | [facility] | | | GFR | CHRONIC KIDNEY [...] | | | | | | MDRD [facility] traceable | | | | | | equation.Testing | | | | | | performed at [facility], [address] | | | | | | [facility], | | | | | | [place] [address] | | | | + + + + + + + + | Specimen | + + | Blood | + + + + + + + | Performing | Address | City/State/Zipcode | Phone Number | | Organization | | | | + + + + + | [facility] | [address] | [place] [address] | [phone] | + + + + + CBC with Differential (08/05/2019 5:08 AM PST) + + + + + + | Component | Value | Ref Range | Performed | Pathologist | | | | | At | Signature | + + + + + + | WBC | 7.27 | 3.80 - 11.00 | [facility] | | | | | K/uL | LABORATORY | | + + + + + + | RBC | 3.55 (L) | 4.20 - 5.70 | [facility] | | | | | M/uL | LABORATORY | | + + + + + + | Hemoglobin | 10.5 (L) | 13.2 - 17.0 | [facility] | | | | | g/dL | LABORATORY | | + + + + + + | Hematocrit | 30.9 (L) | 39.0 - 50.0 % | [facility] | | | | | | LABORATORY | | + + + + + + | MCV | 87.2 | 80.0 - 100.0 fl | [facility] | | | | | | LABORATORY | | + + + + + + | MCH | 29.5 | 27.0 - 34.0 pg | [facility] | | | | | | LABORATORY | | + + + + + + | MCHC | 33.9 | 32.0 - 35.5 | [facility] | | | | | g/dL | LABORATORY | | + + + + + + | RDW-SD | 49.4 | 37 - 53 fl | [facility] | | | | | | LABORATORY | | + + + + + + | Platelet | 406 (H) | 150 - 400 K/uL | [facility] | | | Count | | | LABORATORY | | + + + + + + | MPV | 7.8 | fl | [facility] | | | | | | LABORATORY | | + + + + + + | Diff Type | AUTOMATED | | [facility] | | | | | | LABORATORY | | + + + + + + | % | 49.47 | % | [facility] | | | Neutrophils | | | LABORATORY | | + + + + + + | % | 34.39 | % | [facility] | | | Lymphocytes | | | LABORATORY | | + + + + + + | Monocyte % | 11.12 | % | [facility] | | | | | | LABORATORY | | + + + + + + | Eosinophils | 3.78 | % | [facility] | | | % | | | LABORATORY | | + + + + + + | Basophils % | 1.24 | % | [facility] | | | | | | LABORATORY | | + + + + + + | Neutrophils | 3.60 | 1.90 - 7.40 | [facility] | | | , Absolute | | K/uL | LABORATORY | | + + + + + + | Absolute | 2.50 | 1.00 - 3.90 | [facility] | | | Lymphocytes | | K/uL | LABORATORY | | + + + + + + | Absolute | 0.81 (H) | 0.00 - 0.80 | [facility] | | | Monocytes | | K/uL | LABORATORY | | + + + + + + | Eosinophils | 0.28 | 0.00 - 0.50 | [facility] | | | , Absolute | | K/uL | LABORATORY | | + + + + + + | Basophils, | 0.09Comment: Testing | 0.00 - 0.10 | [facility] | | | Absolute | performed at [facility], [address] | K/uL | LABORATORY | | | | [place], | | | | | | [place] [address] | | | | + + + + + + + + | Specimen | + + | Blood | + + + + + + + | Performing | Address | City/State/Zipcode | Phone Number | | Organization | | | | + + + + + | [facility] | [address] | [place] [address] | [phone] | + + + + + Comprehensive Metabolic Panel (08/04/2019 4:35 AM PST) + + + + + + | Component | Value | Ref Range | Performed | Pathologist | | | | | At | Signature | + + + + + + | Na | 141 | 135 - 145 | [facility] | | | | | mmol/L | LABORATORY | | + + + + + + | K | 3.7 | 3.5 - 4.9 | [facility] | | | | | mmol/L | LABORATORY | | + + + + + + | Cl | 108 | 99 - 109 mmol/L | [facility] | | | | | | LABORATORY | | + + + + + + | CO2 | 27 | 23 - 32 mmol/L | [facility] | | | | | | LABORATORY | | + + + + + + | Anion Gap | 10 | 5 - 20 mmol/L | [facility] | | | | | | LABORATORY | | + + + + + + | Glucose | 98 | 65 - 99 mg/dL | [facility] | | | | | | LABORATORY | | + + + + + + | BUN | 13 | 8 - 25 mg/dL | [facility] [...] + + + + | Calcium | 8.6 | 8.5 - 10.5 | [facility] | | | | | mg/dL | LABORATORY | | + + + + + + | Protein, | 7.2 | 6.3 - 8.2 g/dL | [facility] | | | Total | | | LABORATORY | | + + + + + + | Albumin | 2.8 (L) | 3.6 - 5.0 g/dL | [facility] | | | | | | LABORATORY | | + + + + + + | Globulin | 4.4 | 1.3 - 4.9 g/dL | [facility] | | | | | | LABORATORY | | + + + + + + | A/G Ratio | 0.6 (L) | 1.0 - 2.4 | [facility] | | | | | | LABORATORY | | + + + + + + | BILIRUBIN, | 0.1 | 0.1 - 1.5 mg/dL | [facility] | | | TOTAL | | | LABORATORY | | + + + + + + | ALK PHOS | 77 | 35 - 115 U/L | [facility] | | | | | | LABORATORY | | + + + + + + | AST | 16 | 10 - 45 U/L | [facility] | | | | | | LABORATORY | | + + + + + + | ALT | 14 | 10 - 65 U/L | [facility] [...] | | | | | performed at [facility], [address] | | | | | | [place], | | | | | | [place] [address] | | | | + + + + + + + + | Specimen | + + | Blood | + + + + + + + | Performing | Address | City/State/Zipcode | Phone Number | | Organization | | | | + + + + + | [facility] | [address] | [place] [address] | [phone] | + + + + + CBC with Differential (08/04/2019 4:35 AM PST) + + + + + + | Component | Value | Ref Range | Performed | Pathologist | | | | | At | Signature | + + + + + + | WBC | 8.20 | 3.80 - 11.00 | [facility] | | | | | K/uL | LABORATORY | | + + + + + + | RBC | 3.93 (L) | 4.20 - 5.70 | [facility] | | | | | M/uL | LABORATORY | | + + + + + + | Hemoglobin | 11.7 (L) | 13.2 - 17.0 | [facility] | | | | | g/dL | LABORATORY | | + + + + + + | Hematocrit | 34.4 (L) | 39.0 - 50.0 % | [facility] | | | | | | LABORATORY | | + + + + + + | MCV | 87.4 | 80.0 - 100.0 fl | [facility] | | | | | | LABORATORY | | + + + + + + | MCH | 29.7 | 27.0 - 34.0 pg | [facility] | | | | | | LABORATORY | | + + + + + + | MCHC | 34.0 | 32.0 - 35.5 | [facility] | | | | | g/dL | LABORATORY | | + + + + + + | RDW-SD | 51.2 | 37 - 53 fl | [facility] | | | | | | LABORATORY | | + + + + + + | Platelet | 448 (H) | 150 - 400 K/uL | [facility] | | | Count | | | LABORATORY | | + + + + + + | MPV | 7.9 | fl | [facility] | | | | | | LABORATORY | | + + + + + + | Diff Type | AUTOMATED | | [facility] | | | | | | LABORATORY | | + + + + + + | % | 51.10 | % | [facility] | | | Neutrophils | | | LABORATORY | | + + + + + + | % | 34.39 | % | [facility] | | | Lymphocytes | | | LABORATORY | | + + + + + + | Monocyte % | 9.46 | % | [facility] | | | | | | LABORATORY | | + + + + + + | Eosinophils | 4.01 | % | [facility] | | | % | | | LABORATORY | | + + + + + + | Basophils % | 1.04 | % | [facility] | | | | | | LABORATORY | | + + + + + + | Neutrophils | 4.19 | 1.90 - 7.40 | [facility] | | | , Absolute | | K/uL | LABORATORY | | + + + + + + | Absolute | 2.82 | 1.00 - 3.90 | [facility] | | | Lymphocytes | | K/uL | LABORATORY | | + + + + + + | Absolute | 0.78 | 0.00 - 0.80 | [facility] | | | Monocytes | | K/uL | LABORATORY | | + + + + + + | Eosinophils | 0.33 | 0.00 - 0.50 | [facility] | | | , Absolute | | K/uL | LABORATORY | | + + + + + + | Basophils, | 0.09Comment: Testing | 0.00 - 0.10 | [facility] | | | Absolute | performed at [facility], [address] | K/uL | LABORATORY | | | | [place], | | | | | | [place] [address] | | | | + + + + + + + + | Specimen | + + | Blood | + + + + + + + | Performing | Address | City/State/Zipcode | Phone Number | | Organization | | | | + + + + + | [facility] | [address] | [place] [address] | [phone] | + + + + + Magnesium (08/04/2019 4:35 AM PST) + + + + + + | Component | Value | Ref Range | Performed | Pathologist | | | | | At | Signature | + + + + + + | Magnesium | 2.0Comment: Testing | 1.7 - 2.4 mg/dL | [facility] | | | | performed at [facility], [address] | | LABORATORY | | | | [place], | | | | | | [place] [address] | | | | + + + + + + + + | Specimen | + + | Blood | + + + + + + + | Performing | Address | City/State/Zipcode | Phone Number | | Organization | | | | + + + + + | [facility] | [address] | [place] [address] | [phone] | + + + + + Comprehensive Metabolic Panel (08/03/2019 5:02 AM PST) + + + + + + | Component | Value | Ref Range | Performed | Pathologist | | | | | At | Signature | + + + + + + | Na | 139 | 135 - 145 | [facility] | | | | | mmol/L | LABORATORY | | + + + + + + | K | 3.8 | 3.5 - 4.9 | [facility] | | | | | mmol/L | LABORATORY | | + + + + + + | Cl | 107 | 99 - 109 mmol/L | [facility] | | | | | | LABORATORY | | + + + + + + | CO2 | 25 | 23 - 32 mmol/L | [facility] | | | | | | LABORATORY | | + + + + + + | Anion Gap | 11 | 5 - 20 mmol/L | [facility] | | | | | | LABORATORY | | + + + + + + | Glucose | 93 | 65 - 99 mg/dL | [facility] | | | | | | LABORATORY | | + + + + + + | BUN | 17 | 8 - 25 mg/dL | [facility] | | | | | | LABORATORY | | + + + + + + | Creatinine | 0.8 | 0.70 - 1.30 | [facility] | | | | | mg/dL | LABORATORY | | + + + + + + | BUN/Creatin | 21 | | [facility] | | | ine Ratio | | | LABORATORY | | + + + + + + | Calcium | 8.6 | 8.5 - 10.5 | [facility] | | | | | mg/dL | LABORATORY | | + + + + + + | Protein, | 7.6 | 6.3 - 8.2 g/dL | [facility] | | | Total | | | LABORATORY | | + + + + + + | Albumin | 3.0 (L) | 3.6 - 5.0 g/dL | [facility] | | | | | | LABORATORY | | + + + + + + | Globulin | 4.6 | 1.3 - 4.9 g/dL | [facility] | | | | | | LABORATORY | | + + + + + + | A/G Ratio | 0.7 (L) | 1.0 - 2.4 | [facility] | | | | | | LABORATORY | | + + + + + + | BILIRUBIN, | 0.2 | 0.1 - 1.5 mg/dL | [facility] | | | TOTAL | | | LABORATORY | | + + + + + + | ALK PHOS | 85 | 35 - 115 U/L | [facility] | | | | | | LABORATORY | | + + + + + + | AST | 15 | 10 - 45 U/L | [facility] | | | | | | LABORATORY | | + + + + + + | ALT | 15 | 10 - 65 U/L | [facility] [...] | | | | | performed at [facility], [address] | | | | | | [address] [facility], | | | | | | [place] [address] | | | | + + + + + + + + | Specimen | + + | Blood | + + + + + + + | Performing | Address | City/State/Zipcode | Phone Number | | Organization | | | | + + + + + | [facility] | [address] | [place] [address] | [phone] | + + + + + CBC with Differential (08/03/2019 5:02 AM PST) + + + + + + | Component | Value | Ref Range | Performed | Pathologist | | | | | At | Signature | + + + + + + | WBC | 9.59 | 3.80 - 11.00 | [facility] | | | | | K/uL | LABORATORY | | + + + + + + | RBC | 4.05 (L) | 4.20 - 5.70 | [facility] | | | | | M/uL | LABORATORY | | + + + + + + | Hemoglobin | 11.9 (L) | 13.2 - 17.0 | [facility] | | | | | g/dL | LABORATORY | | + + + + + + | Hematocrit | 35.5 (L) | 39.0 - 50.0 % | [facility] | | | | | | LABORATORY | | + + + + + + | MCV | 87.7 | 80.0 - 100.0 fl | [facility] | | | | | | LABORATORY | | + + + + + + | MCH | 29.5 | 27.0 - 34.0 pg | [facility] | | | | | | LABORATORY | | + + + + + + | MCHC | 33.6 | 32.0 - 35.5 | [facility] | | | | | g/dL | LABORATORY | | + + + + + + | RDW-SD | 49.0 | 37 - 53 fl | [facility] | | | | | | LABORATORY | | + + + + + + | Platelet | 429 (H) | 150 - 400 K/uL | [facility] | | | Count | | | LABORATORY | | + + + + + + | MPV | 7.8 | fl | [facility] | | | | | | LABORATORY | | + + + + + + | Diff Type | AUTOMATED | | [facility] | | | | | | LABORATORY | | + + + + + + | % | 57.08 | % | [facility] | | | Neutrophils | | | LABORATORY | | + + + + + + | % | 28.31 | % | [facility] | | | Lymphocytes | | | LABORATORY | | + + + + + + | Monocyte % | 9.78 | % | [facility] | | | | | | LABORATORY | | + + + + + + | Eosinophils | 3.76 | % | [facility] | | | % | | | LABORATORY | | + + + + + + | Basophils % | 1.07 | % | [facility] | | | | | | LABORATORY | | + + + + + + | Neutrophils | 5.47 | 1.90 - 7.40 | [facility] | | | , Absolute | | K/uL | LABORATORY | | + + + + + + | Absolute | 2.71 | 1.00 - 3.90 | [facility] | | | Lymphocytes | | K/uL | LABORATORY | | + + + + + + | Absolute | 0.94 (H) | 0.00 - 0.80 | [facility] | | | Monocytes | | K/uL | LABORATORY | | + + + + + + | Eosinophils | 0.36 | 0.00 - 0.50 | [facility] | | | , Absolute | | K/uL | LABORATORY | | + + + + + + | Basophils, | 0.10Comment: Testing | 0.00 - 0.10 | [facility] | | | Absolute | performed at [facility], [address] | K/uL | LABORATORY | | | | [address], | | | | | | [place] [address] | | | | + + + + + + + + | Specimen | + + | Blood | + + + + + + + | Performing | Address | City/State/Zipcode | Phone Number | | Organization | | | | + + + + + | [facility] | [address] | [place] [address] | [phone] | + + + + + CT Abdomen Pelvis wo Contrast (08/02/2019 7:20 PM PST) + + | Specimen | + + | | + + + + + | Impressions | Performed At | + + + | Interval placement of a percutaneous drainage catheter. Previously | [facility] | | noted fluid collection appears to be essentially unchanged in size, | | | measuring approximately 12.3 cm x 2.4 cm in size. Signed | | | by: Trevin Ch, Dewayne Sign Date/Time: 08/02/2019 8:06 PM | | + + + + + + | Narrative | Performed At | + + + | CT ABDOMEN AND PELVIS WITHOUT CONTRAST CLINICAL INFORMATION: | [facility] | | Abdominal pain, Abdominal abscess COMPARISON: CT GUIDED DRAIN | | | ABSCESS PERITONEAL (07/30/2019); CT ABDOMEN PELVIS W CONTRAST | | | (07/29/2019) PROCEDURE: Axial images through the abdomen and | | | pelvis. Multiplanar reconstructions. At least one of the | | | following CT dose optimization techniques were used: Automated | | | exposure control; Adjustment of mA and/or kV according to patient | | | size; Use of iterative reconstruction technique. FINDINGS: Lack | | | of intravenous contrast typically diminishes sensitivity for | | | assessment of solid organs and vascular structures. LUNG BASES: | | | Trace bilateral pleural effusions, with associated small amount of | | | atelectasis. ABDOMEN Solid organ evaluation suboptimal without | | | contrast. Liver and Biliary: Liver appears unremarkable. Patient is | | | post cholecystectomy. Pancreas, Spleen and Adrenals: Appear | | | unremarkable. Kidneys: Appear unremarkable. ABDOMEN AND PELVIS | | | Bowel: Appendix is seen on series 2, image 114 and appears | | | unremarkable. No bowel obstruction or ileus seen. Vessels: Mild | | | atherosclerosis. Aorta does not appear aneurysmal Lymph Nodes: No | | | enlarged lymph nodes seen Peritoneum and Retroperitoneum: Interval | | | placement of a percutaneous drainage catheter. Previously noted | | | fluid collection appears to be essentially unchanged in size, | | | measuring approximately 12.3 cm x 2.4 cm in size. PELVIS | | | Genitourinary: Urinary bladder is mildly distended BODY WALL Soft | | | Tissues: No significant abnormality appreciated. Bones: No acute or | | | destructive osseous process seen. | | + + + + + | Procedure Note | + + | Ethan, Rad Results In - 08/02/2019 8:10 PM PST | | CT ABDOMEN AND PELVIS WITHOUT CONTRAST | | | | CLINICAL INFORMATION: | | Abdominal pain, Abdominal abscess | | | | COMPARISON: | | CT GUIDED DRAIN ABSCESS PERITONEAL (07/30/2019); CT ABDOMEN PELVIS W | | CONTRAST (07/29/2019) | | | | PROCEDURE: | | Axial images through the abdomen and pelvis. Multiplanar | | reconstructions. | | | | At least one of the following CT dose optimization techniques were | | used: Automated exposure control; Adjustment of mA and/or kV according | | to patient size; Use of iterative reconstruction technique. | | | | FINDINGS: | | Lack of intravenous contrast typically diminishes sensitivity for | | assessment of solid organs and vascular structures. | | | | LUNG BASES: Trace bilateral pleural effusions, with associated small | | amount of atelectasis. | | | | ABDOMEN | | Solid organ evaluation suboptimal without contrast. | | Liver and Biliary: Liver appears unremarkable. Patient is post | | cholecystectomy. | | Pancreas, Spleen and Adrenals: Appear unremarkable. | | Kidneys: Appear unremarkable. | | | | ABDOMEN AND PELVIS | | Bowel: Appendix is seen on series 2, image 114 and appears | | unremarkable. No bowel obstruction or ileus seen. | | Vessels: Mild atherosclerosis. Aorta does not appear aneurysmal | | Lymph Nodes: No enlarged lymph nodes seen | | Peritoneum and Retroperitoneum: Interval placement of a percutaneous | | drainage catheter. Previously noted fluid collection appears to be | | essentially unchanged in size, measuring approximately 12.3 cm x 2.4 cm | | in size. | | | | PELVIS | | Genitourinary: Urinary bladder is mildly distended | | | | BODY WALL | | Soft Tissues: No significant abnormality appreciated. | | Bones: No acute or destructive osseous process seen. | | | | IMPRESSION: | | Interval placement of a percutaneous drainage catheter. Previously | | noted fluid collection appears to be essentially unchanged in size, | | measuring approximately 12.3 cm x 2.4 cm in size. | | | | | | | | Signed by: Trevin Ch Amit | | Sign Date/Time: 08/02/2019 8:06 PM | + + + +---------+ + + | Performing | Address | City/State/Zipcode | Phone Number | | Organization | | | | + +---------+ + + | [facility] | | | | + +---------+ + + Phosphorus (08/02/2019 4:46 AM PST) + + + + + + | Component | Value | Ref Range | Performed | Pathologist | | | | | At | Signature | + + + + + + | Phosphorus | 3.3Comment: Testing | 2.3 - 4.8 mg/dL | [facility] | | | | performed at [facility] | | LABORATORY | | | | [address] [facility];[place], [place] | | | | | | [address] | | | | + + + + + + + + | Specimen | + + | Blood | + + + + + + + | Performing | Address | City/State/Zipcode | Phone Number | | Organization | | | | + + + + + | [facility] | [address] | [place] [address] | [phone] | + + + + + Magnesium (08/02/2019 4:46 AM PST) + + + + + + | Component | Value | Ref Range | Performed | Pathologist | | | | | At | Signature | + + + + + + | Magnesium | 1.7Comment: Testing | 1.7 - 2.4 mg/dL | [facility] | | | | performed at [facility];[address] | LABORATORY | | | | [address];[place] | | | | | | [address] | | | | + + + + + + + + | Specimen | + + | Blood | + + + + + + + | Performing | Address | City/State/Zipcode | Phone Number | | Organization | | | | + + + + + | [facility] | [address] | [place] [address] | [phone] | + + + + + Basic Metabolic Panel (08/02/2019 4:46 AM PST) + + + + + + | Component | Value | Ref Range | Performed | Pathologist | | | | | At | Signature | + + + + + + | Na | 141 | 135 - 145 | [facility] | | | | | mmol/L | LABORATORY | | + + + + + + | K | 3.6 | 3.5 - 4.9 | [facility] | | | | | mmol/L | LABORATORY | | + + + + + + | Cl | 108 | 99 - 109 mmol/L | [facility] | | | | | | LABORATORY | | + + + + + + | CO2 | 26 | 23 - 32 mmol/L | [facility] | | | | | | LABORATORY | | + + + + + + | Anion Gap | 11 | 5 - 20 mmol/L | [facility] | | | | | | LABORATORY | | + + + + + + | Glucose | 107 (H) | 65 - 99 mg/dL | [facility] | | | | | | LABORATORY | | + + + + + + | BUN | 13 | 8 - 25 mg/dL | [facility] | | | | | | LABORATORY | | + + + + + + | Creatinine | 0.61 (L) | 0.70 - 1.30 | [facility] | | | | | mg/dL | LABORATORY | | + + + + + + | BUN/Creatin | 21 | | [facility] | | | ine Ratio | | | LABORATORY | | + + + + + + | Calcium | 8.4 (L) | 8.5 - 10.5 | [facility] | | | | | mg/dL | LABORATORY | | + + + + + + | Estimated | >60Comment: GFR <60: | >60 | [facility] | | | GFR | CHRONIC KIDNEY [...] | | | | | | [facility]D [facility] traceable | | | | | | equation.Testing | | | | | | performed at [facility] | | | | | | [facility];[place], [place] | | | | | | [address] | | | | + + + + + + + + | Specimen | + + | Blood | + + + + + + + | Performing | Address | City/State/Zipcode | Phone Number | | Organization | | | | + + + + + | [facility] | [address] | [place] [address] | [phone] | + + + + + CBC with Differential (08/02/2019 4:46 AM PST) + + + + + + | Component | Value | Ref Range | Performed | Pathologist | | | | | At | Signature | + + + + + + | WBC | 8.39 | 3.80 - 11.00 | [facility] | | | | | K/uL | LABORATORY | | + + + + + + | RBC | 3.54 (L) | 4.20 - 5.70 | [facility] | | | | | M/uL | LABORATORY | | + + + + + + | Hemoglobin | 10.4 (L) | 13.2 - 17.0 | [facility] | | | | | g/dL | LABORATORY | | + + + + + + | Hematocrit | 30.9 (L) | 39.0 - 50.0 % | [facility] | | | | | | LABORATORY | | + + + + + + | MCV | 87.3 | 80.0 - 100.0 fl | [facility] | | | | | | LABORATORY | | + + + + + + | MCH | 29.3 | 27.0 - 34.0 pg | [facility] | | | | | | LABORATORY | | + + + + + + | MCHC | 33.6 | 32.0 - 35.5 | [facility] | | | | | g/dL | LABORATORY | | + + + + + + | RDW-SD | 49.9 | 37 - 53 fl | [facility] | | | | | | LABORATORY | | + + + + + + | Platelet | 361 | 150 - 400 K/uL | [facility] | | | Count | | | LABORATORY | | + + + + + + | MPV | 7.7 | fl | [facility] | | | | | | LABORATORY | | + + + + + + | Diff Type | AUTOMATED | | [facility] | | | | | | LABORATORY | | + + + + + + | % | 57.84 | % | [facility] | | | Neutrophils | | | LABORATORY | | + + + + + + | % | 26.04 | % | [facility] | | | Lymphocytes | | | LABORATORY | | + + + + + + | Monocyte % | 11.99 | % | [facility] | | | | | | LABORATORY | | + + + + + + | Eosinophils | 3.05 | % | [facility] | | | % | | | LABORATORY | | + + + + + + | Basophils % | 1.08 | % | [facility] | | | | | | LABORATORY | | + + + + + + | Neutrophils | 4.86 | 1.90 - 7.40 | [facility] | | | , Absolute | | K/uL | LABORATORY | | + + + + + + | Absolute | 2.19 | 1.00 - 3.90 | [facility] | | | Lymphocytes | | K/uL | LABORATORY | | + + + + + + | Absolute | 1.01 (H) | 0.00 - 0.80 | [facility] | | | Monocytes | | K/uL | LABORATORY | | + + + + + + | Eosinophils | 0.26 | 0.00 - 0.50 | [facility] | | | , Absolute | | K/uL | LABORATORY | | + + + + + + | Basophils, | 0.09Comment: Testing | 0.00 - 0.10 | [facility] | | | Absolute | performed at [facility];[address] | K/uL | LABORATORY | | | | [address];[place], [place] | | | | | | [address] | | | | + + + + + + + + | Specimen | + + | Blood | + + + + + + + | Performing | Address | City/State/Zipcode | Phone Number | | Organization | | | | + + + + + | [facility] | [address] | [place] [address] | [phone] | + + + + + Basic Metabolic Panel (08/01/2019 4:28 AM PST) + + + + + + | Component | Value | Ref Range | Performed | Pathologist | | | | | At | Signature | + + + + + + | Na | 138 | 135 - 145 | [facility] | | | | | mmol/L | LABORATORY | | + + + + + + | K | 3.3 (L) | 3.5 - 4.9 | [facility] | | | | | mmol/L | LABORATORY | | + + + + + + | Cl | 106 | 99 - 109 mmol/L | [facility] | | | | | | LABORATORY | | + + + + + + | CO2 | 24 | 23 - 32 mmol/L | [facility] | | | | | | LABORATORY | | + + + + + + | Anion Gap | 11 | 5 - 20 mmol/L | [facility] | | | | | | LABORATORY | | + + + + + + | Glucose | 102 (H) | 65 - 99 mg/dL | [facility] | | | | | | LABORATORY | | + + + + + + | BUN | 13 | 8 - 25 mg/dL | [facility] [...] | >60Comment: GFR <60: | >60 | [facility] | | | GFR | CHRONIC KIDNEY [...] | | | | | | MDRD [facility] traceable | | | | | | equation.Testing | | | | | | performed at [facility], [address] | | | | | | [facility], | | | | | | [place] [address] | | | | + + + + + + + + | Specimen | + + | Blood | + + + + + + + | Performing | Address | City/State/Zipcode | Phone Number | | Organization | | | | + + + + + | [facility] | [address] | [place] [address] | [phone] | + + + + + CBC with Differential (08/01/2019 4:28 AM PST) + + + + + + | Component | Value | Ref Range | Performed | Pathologist | | | | | At | Signature | + + + + + + | WBC | 10.41 | 3.80 - 11.00 | [facility] | | | | | K/uL | LABORATORY | | + + + + + + | RBC | 3.44 (L) | 4.20 - 5.70 | [facility] | | | | | M/uL | LABORATORY | | + + + + + + | Hemoglobin | 10.1 (L) | 13.2 - 17.0 | [facility] | | | | | g/dL | LABORATORY | | + + + + + + | Hematocrit | 29.9 (L) | 39.0 - 50.0 % | [facility] | | | | | | LABORATORY | | + + + + + + | MCV | 87.0 | 80.0 - 100.0 fl | [facility] | | | | | | LABORATORY | | + + + + + + | MCH | 29.5 | 27.0 - 34.0 pg | [facility] | | | | | | LABORATORY | | + + + + + + | MCHC | 33.9 | 32.0 - 35.5 | [facility] | | | | | g/dL | LABORATORY | | + + + + + + | RDW-SD | 49.4 | 37 - 53 fl | [facility] | | | | | | LABORATORY | | + + + + + + | Platelet | 382 | 150 - 400 K/uL | [facility] | | | Count | | | LABORATORY | | + + + + + + | MPV | 8.0 | fl | [facility] | | | | | | LABORATORY | | + + + + + + | Diff Type | AUTOMATED | | [facility] | | | | | | LABORATORY | | + + + + + + | % | 60.42 | % | [facility] | | | Neutrophils | | | LABORATORY | | + + + + + + | % | 23.03 | % | [facility] | | | Lymphocytes | | | LABORATORY | | + + + + + + | Monocyte % | 14.27 | % | [facility] | | | | | | LABORATORY | | + + + + + + | Eosinophils | 1.70 | % | [facility] | | | % | | | LABORATORY | | + + + + + + | Basophils % | 0.58 | % | [facility] | | | | | | LABORATORY | | + + + + + + | Neutrophils | 6.29 | 1.90 - 7.40 | [facility] | | | , Absolute | | K/uL | LABORATORY | | + + + + + + | Absolute | 2.40 | 1.00 - 3.90 | [facility] | | | Lymphocytes | | K/uL | LABORATORY | | + + + + + + | Absolute | 1.49 (H) | 0.00 - 0.80 | [facility] | | | Monocytes | | K/uL | LABORATORY | | + + + + + + | Eosinophils | 0.18 | 0.00 - 0.50 | [facility] | | | , Absolute | | K/uL | LABORATORY | | + + + + + + | Basophils, | 0.06Comment: Testing | 0.00 - 0.10 | [facility] | | | Absolute | performed at [facility], [address] | K/uL | LABORATORY | | | | [facility] [place], | | | | | | [place] [address] | | | | + + + + + + + + | Specimen | + + | Blood | + + + + + + + | Performing | Address | City/State/Zipcode | Phone Number | | Organization | | | | + + + + + | [facility] | [address] | [place] [address] | [phone] | + + + + + Basic Metabolic Panel (07/31/2019 4:39 AM PST) + + + + + + | Component | Value | Ref Range | Performed | Pathologist | | | | | At | Signature | + + + + + + | Na | 139 | 135 - 145 | [facility] | | | | | mmol/L | LABORATORY | | + + + + + + | K | 3.7 | 3.5 - 4.9 | [facility] | | | | | mmol/L | LABORATORY | | + + + + + + | Cl | 108 | 99 - 109 mmol/L | [facility] | | | | | | LABORATORY | | + + + + + + | CO2 | 24 | 23 - 32 mmol/L | [facility] | | | | | | LABORATORY | | + + + + + + | Anion Gap | 11 | 5 - 20 mmol/L | [facility] | | | | | | LABORATORY | | + + + + + + | Glucose | 105 (H) | 65 - 99 mg/dL | [...] + + + + | BUN/Creatin | 20 | | [facility] | | | ine Ratio | | | LABORATORY | | + + + + + + | Calcium | 8.5 | 8.5 - 10.5 | [facility] | | | | | mg/dL | LABORATORY | | + + + + + + | Estimated | >60Comment: GFR <60: | >60 | [facility] | | | GFR | CHRONIC KIDNEY [...] | | | | | | MDRD IDWA traceable | | | | | | equation.Testing | | | | | | performed at [facility], [address] | | | | | | [facility], | | | | | | [place] [address] | | | | + + + + + + + + | Specimen | + + | Blood | + + + + + + + | Performing | Address | City/State/Zipcode | Phone Number | | Organization | | | | + + + + + | [facility] | [address] | [place] [address] | [phone] | + + + + + CBC with Differential (07/31/2019 4:39 AM PST) + + + + + + | Component | Value | Ref Range | Performed | Pathologist | | | | | At | Signature | + + + + + + | WBC | 8.41 | 3.80 - 11.00 | [facility] | | | | | K/uL | LABORATORY | | + + + + + + | RBC | 3.51 (L) | 4.20 - 5.70 | [facility] | | | | | M/uL | LABORATORY | | + + + + + + | Hemoglobin | 10.5 (L) | 13.2 - 17.0 | [facility] | | | | | g/dL | LABORATORY | | + + + + + + | Hematocrit | 30.7 (L) | 39.0 - 50.0 % | [facility] | | | | | | LABORATORY | | + + + + + + | MCV | 87.5 | 80.0 - 100.0 fl | [facility] | | | | | | LABORATORY | | + + + + + + | MCH | 29.8 | 27.0 - 34.0 pg | [facility] | | | | | | LABORATORY | | + + + + + + | MCHC | 34.0 | 32.0 - 35.5 | [facility] | | | | | g/dL | LABORATORY | | + + + + + + | RDW-SD | 50.3 | 37 - 53 fl | [facility] | | | | | | LABORATORY | | + + + + + + | Platelet | 385 | 150 - 400 K/uL | [facility] | | | Count | | | LABORATORY | | + + + + + + | MPV | 7.7 | fl | [facility] | | | | | | LABORATORY | | + + + + + + | Diff Type | AUTOMATED | | [facility] | | | | | | LABORATORY | | + + + + + + | % | 70.21 | % | [facility] | | | Neutrophils | | | LABORATORY | | + + + + + + | % | 17.09 | % | [facility] | | | Lymphocytes | | | LABORATORY | | + + + + + + | Monocyte % | 10.50 | % | [facility] | | | | | | LABORATORY | | + + + + + + | Eosinophils | 1.42 | % | [facility] | | | % | | | LABORATORY | | + + + + + + | Basophils % | 0.78 | % | [facility] | | | | | | LABORATORY | | + + + + + + | Neutrophils | 5.90 | 1.90 - 7.40 | [facility] | | | , Absolute | | K/uL | LABORATORY | | + + + + + + | Absolute | 1.44 | 1.00 - 3.90 | [facility] | | | Lymphocytes | | K/uL | LABORATORY | | + + + + + + | Absolute | 0.88 (H) | 0.00 - 0.80 | [facility] | | | Monocytes | | K/uL | LABORATORY | | + + + + + + | Eosinophils | 0.12 | 0.00 - 0.50 | [facility] | | | , Absolute | | K/uL | LABORATORY | | + + + + + + | Basophils, | 0.07Comment: Testing | 0.00 - 0.10 | [facility] | | | Absolute | performed at [facility], [address] | K/uL | LABORATORY | | | | [place], | | | | | | [place] [address] | | | | + + + + + + + + | Specimen | + + | Blood | + + + + + + + | Performing | Address | City/State/Zipcode | Phone Number | | Organization | | | | + + + + + | [facility] | [address] | [place] [address] | [phone] | + + + + + Culture, Body Fluid Sterile (07/30/2019 11:29 AM PST) + + + + + + | Component | Value | Ref Range | Performed | Pathologist | | | | | At | Signature | + + + + + + | Gram Stain | 4+ | | [facility] | | | Result | WBC'S SEEN | | LABORATORY | | | | | | | | + + + + + + | Gram Stain | 1+ | | [facility] | | | Result | GRAM POSITIVE COCCI | | LABORATORY | | | | | | | | + + + + + + | Gram Stain | 3+ | | [facility] | | | Result | GRAM NEGATIVE RODS | | LABORATORY | | | | | | | | + + + + + + | RESULT | 2+ | | [facility] | | | | ESCHERICHIA COLI | | LABORATORY | | | | (A) | | | | + + + + + + | RESULT | 2+MIXED GRAM POSITIVE | | [facility] | | | | DEEPA | | LABORATORY | | | | | | | | + + + + + + | RESULT | 2+ | | [facility] | | | | MIXED ANAEROBIC DEEPA | | LABORATORY | | | | | | | | + + + + + + | RESULT | Testing performed at | | [facility] | | | | L, [address] | | LABORATORY | | | | [address], [place], [place] | | | | | | [address] | | | | + + + + + + + + | Specimen | + + | Body Fluid - Pus | | specimen (specimen) | + + + + +--------+ + | Organism | Antibiotic | Method | Susceptibility | + + +--------+ + | Escherichia coli | Ampicillin | [facility] | SUSCEPTIBLE: | | | | | Sensitive | + + +--------+ + | Escherichia coli | Ampicillin + | [facility] | SUSCEPTIBLE: | | | Sulbactam | | Sensitive | + + +--------+ + | Escherichia coli | Cefepime | [facility] | SUSCEPTIBLE: | | | | | Sensitive | + + +--------+ + | Escherichia coli | Cefoxitin | [facility] | SUSCEPTIBLE: | | | | | Sensitive | + + +--------+ + | Escherichia coli | Ceftazidime | [facility] | SUSCEPTIBLE: | | | | | Sensitive | + + +--------+ + | Escherichia coli | Ceftriaxone | [facility] | SUSCEPTIBLE: | | | | | Sensitive | + + +--------+ + | Escherichia coli | Ciprofloxacin | [facility] | SUSCEPTIBLE: | | | | | Sensitive | + + +--------+ + | Escherichia coli | Gentamicin | [facility] | SUSCEPTIBLE: | | | | | Sensitive | + + +--------+ + | Escherichia coli | Levofloxacin | [facility] | SUSCEPTIBLE: | | | | | Sensitive | + + +--------+ + | Escherichia coli | Tobramycin | [facility] | SUSCEPTIBLE: | | | | | Sensitive | + + +--------+ + | Escherichia coli | Trimethoprim + | [facility] | SUSCEPTIBLE: | | | Sulfamethoxazole | | Sensitive | + + +--------+ + +---+ + | | Comment: Testing | | | performed at [facility], | | | [address] [facility] | | | [place] | | | [address] | +---+ + + + + + + | Performing | Address | City/State/Zipcode | Phone Number | | Organization | | | | + + + + + | [facility] | [address] | [place] [address] | [phone] | + + + + + CT Guided Drain Abscess Peritoneal (07/30/2019 11:13 AM PST) + + | Specimen | + + | | + + + + + | Impressions | Performed At | + + + | Uncomplicated drainage of anterior abdominal wall abscess. Small | [facility] | | amount of fluid was obtained and sent for Gram stain and culture. A | | | 12 [place] locking pigtail catheter was placed. Signed by: | | | Trevin Guevara, Marshall Sign Date/Time: 08/11/2019 4:53 PM | | + + + + + + | Narrative | Performed At | + + + | CT GUIDED DRAINAGE ABDOMINAL WALL ABSCESS CLINICAL | [facility] | | INFORMATION: anterior abdominal wall abscess PROCEDURE: Prior to | | | the procedure, risks and benefits were explained to the patient and | | | informed written and verbal consent obtained. Patient was placed on | | | the CT gantry and initial localizing scans were performed. Using | | | lidocaine for local anesthesia and intravenous sedation, the region | | | is punctured under CT guidance. An 0.35 guide wire is placed into the | | | collection and the tract dilated. A 12 Emir[place] locking pigtail | | | catheter is then placed over the wire. Patient tolerated the procedure | | | well. No immediate complications. Conscious sedation was | | | administered. The nurse administered fentanyl and Versed during the | | | examination and monitored blood pressure, heart rate, and pulse | | | oximeter. Physician intraservice time of 20 minutes. Estimated | | | Blood Loss: Less than 50 cc's. At least one of the following CT | | | dose optimization techniques were used: Automated exposure control; | | | Adjustment of mA and/or kV according to patient size; Use of | | | iterative reconstruction technique. | | + + + + + | Procedure Note | + + | Ethan, Rad Results In 08/11/2019 4:57 PM PST | | CT GUIDED DRAINAGE ABDOMINAL WALL ABSCESS | | | | CLINICAL INFORMATION: | | anterior abdominal wall abscess | | | | PROCEDURE: | | Prior to the procedure, risks and benefits were explained to the | | patient and informed written and verbal consent obtained. Patient was | | placed on the CT gantry and initial localizing scans were performed. | | Using lidocaine for local anesthesia and intravenous sedation, the | | region is punctured under CT guidance. An 0.35 guide wire is placed | | into the collection and the tract dilated. A 12 Emir[place] locking pigtail | | catheter is then placed over the wire. Patient tolerated the procedure | | well. No immediate complications. | | | | Conscious sedation was administered. The nurse administered fentanyl | | and Versed during the examination and monitored blood pressure, heart | | rate, and pulse oximeter. Physician intraservice time of 20 minutes. | | | | Estimated Blood Loss: Less than 50 cc's. | | | | At least one of the following CT dose optimization techniques were | | used: Automated exposure control; Adjustment of mA and/or kV according | | to patient size; Use of iterative reconstruction technique. | | | | IMPRESSION: | | Uncomplicated drainage of anterior abdominal wall abscess. Small | | amount of fluid was obtained and sent for Gram stain and culture. A 12 | | Emir[place] locking pigtail catheter was placed. | | | | | | | | Signed by: Trevin Guevara Matthew | | Sign Date/Time: 08/11/2019 4:53 PM | + + + +---------+ + + | Performing | Address | City/State/Zipcode | Phone Number | | Organization | | | | + +---------+ + + | [facility] | | | | + +---------+ + + CBC with Differential (07/30/2019 8:05 AM PST) + + + + + + | Component | Value | Ref Range | Performed | Pathologist | | | | | At | Signature | + + + + + + | WBC | 10.78 | 3.80 - 11.00 | [facility] | | | | | K/uL | LABORATORY | | + + + + + + | RBC | 3.44 (L) | 4.20 - 5.70 | [facility] | | | | | M/uL | LABORATORY | | + + + + + + | Hemoglobin | 10.1 (L) | 13.2 - 17.0 | [facility] | | | | | g/dL | LABORATORY | | + + + + + + | Hematocrit | 29.5 (L) | 39.0 - 50.0 % | [facility] | | | | | | LABORATORY | | + + + + + + | MCV | 85.6 | 80.0 - 100.0 fl | [facility] | | | | | | LABORATORY | | + + + + + + | MCH | 29.3 | 27.0 - 34.0 pg | [facility] | | | | | | LABORATORY | | + + + + + + | MCHC | 34.2 | 32.0 - 35.5 | [facility] | | | | | g/dL | LABORATORY | | + + + + + + | RDW-SD | 48.1 | 37 - 53 fl | [facility] | | | | | | LABORATORY | | + + + + + + | Platelet | 393 | 150 - 400 K/uL | [facility] | | | Count | | | LABORATORY | | + + + + + + | MPV | 7.3 | fl | [facility] | | | | | | LABORATORY | | + + + + + + | Diff Type | AUTOMATED | | [facility] | | | | | | LABORATORY | | + + + + + + | % | 68.24 | % | [facility] | | | Neutrophils | | | LABORATORY | | + + + + + + | % | 19.87 | % | [facility] | | | Lymphocytes | | | LABORATORY | | + + + + + + | Monocyte % | 9.37 | % | [facility] | | | | | | LABORATORY | | + + + + + + | Eosinophils | 1.66 | % | [facility] | | | % | | | LABORATORY | | + + + + + + | Basophils % | 0.86 | % | [facility] | | | | | | LABORATORY | | + + + + + + | Neutrophils | 7.36 | 1.90 - 7.40 | [facility] | | | , Absolute | | K/uL | LABORATORY | | + + + + + + | Absolute | 2.14 | 1.00 - 3.90 | [facility] | | | Lymphocytes | | K/uL | LABORATORY | | + + + + + + | Absolute | 1.01 (H) | 0.00 - 0.80 | [facility] | | | Monocytes | | K/uL | LABORATORY | | + + + + + + | Eosinophils | 0.18 | 0.00 - 0.50 | [facility] | | | , Absolute | | K/uL | LABORATORY | | + + + + + + | Basophils, | 0.09Comment: Testing | 0.00 - 0.10 | [facility] | | | Absolute | performed at [facility];[address] | [address] | LABORATORY | | | | [address];[place] | | | | | | [address] | | | | + + + + + + + + | Specimen | + + | | + + + + + + + | Performing | Address | City/State/Zipcode | Phone Number | | Organization | | | | + + + + + | [facility] | [address] | [place] [address] | [phone] | + + + + + PTT (07/30/2019 4:37 AM PST) + + + + + + | Component | Value | Ref Range | Performed | Pathologist | | | | | At | Signature | + + + + + + | PTT | 20 (L)Comment: Testing | 23 - 32 seconds | [facility] | | | | performed at [facility];[address] | | LABORATORY | | | | [address];[place] | | | | | | [address] | | | | + + + + + + + + | Specimen | + + | Blood | + + + + + + + | Performing | Address | City/State/Zipcode | Phone Number | | Organization | | | | + + + + + | [facility] | [address] | [place] [address] | [phone] | + + + + + Protime INR (07/30/2019 4:37 AM PST) + + + + + + | Component | Value | Ref Range | Performed | Pathologist | | | | | At | Signature | + + + + + + | INR | 1.1Comment: REFERENCE | | [facility] | | | | RANGE:0.9 - 1.2 | | LABORATORY | | | | NON-ANTICOAGULATED2.0 | | [...] | | | | | performed at [facility] | | | | | | [address] [facility];[place], [place] | | | | | | [address] | | | | + + + + + + + + | Specimen | + + | Blood | + + + + + + + | Performing | Address | City/State/Zipcode | Phone Number | | Organization | | | | + + + + + | [facility] | [address] | [place] [address] | [phone] | + + + + + Comprehensive Metabolic Panel (07/30/2019 4:37 AM PST) + + + + + + | Component | Value | Ref Range | Performed | Pathologist | | | | | At | Signature | + + + + + + | Na | 139 | 135 - 145 | [facility] | | | | | mmol/L | LABORATORY | | + + + + + + | K | 4.3 | 3.5 - 4.9 | [facility] | | | | | mmol/L | LABORATORY | | + + + + + + | Cl | 111 (H) | 99 - 109 mmol/L | [facility] | | | | | | LABORATORY | | + + + + + + | CO2 | 24 | 23 - 32 mmol/L | [facility] | | | | | | LABORATORY | | + + + + + + | Anion Gap | 8 | 5 - 20 mmol/L | [facility] | | | | | | LABORATORY | | + + + + + + | Glucose | 88 | 65 - 99 mg/dL | [facility] [...] + + + + | Calcium | 8.4 (L) | 8.5 - 10.5 | [facility] | | | | | mg/dL | LABORATORY | | + + + + + + | Protein, | 6.8 | 6.3 - 8.2 g/dL | [facility] | | | Total | | | LABORATORY | | + + + + + + | Albumin | 2.7 (L) | 3.6 - 5.0 g/dL | [facility] | | | | | | LABORATORY | | + + + + + + | Globulin | 4.1 | 1.3 - 4.9 g/dL | [facility] | | | | | | LABORATORY | | + + + + + + | A/G Ratio | 0.7 (L) | 1.0 - 2.4 | [facility] | | | | | | LABORATORY | | + + + + + + | BILIRUBIN, | 0.3 | 0.1 - 1.5 mg/dL | [facility] | | | TOTAL | | | LABORATORY | | + + + + + + | ALK PHOS | 87 | 35 - 115 U/L | [facility] | | | | | | LABORATORY | | + + + + + + | AST | 15 | 10 - 45 U/L | [facility] | | | | | | LABORATORY | | + + + + + + | ALT | 10 | 10 - 65 U/L | [facility] | | | | | | LABORATORY | | + + + + + + | Estimated | >60Comment: GFR <60: | >60 | [facility] | | | GFR | CHRONIC KIDNEY [...] | | | | | | MDRD IDWA traceable | | | | | | equation.Testing | | | | | | performed at [facility], [address] | | | | | | [facility], | | | | | | [place] [address] | | | | + + + + + + + + | Specimen | + + | Blood | + + + + + + + | Performing | Address | City/State/Zipcode | Phone Number | | Organization | | | | + + + + + | [facility] | [address] | [place] [address] | [phone] | + + + + + Lactic Acid (07/30/2019 12:54 AM PST) + + + + + + | Component | Value | Ref Range | Performed | Pathologist | | | | | At | Signature | + + + + + + | Lactate, | 1.1Comment: Testing | 0.4 - 2.0 | [facility] | | | Serum | performed at [facility];[address] | mmol/L | LABORATORY | | | | [address];[place] | | | | | | [address] | | | | + + + + + + + + | Specimen | + + | Blood | + + + + + + + | Performing | Address | City/State/Zipcode | Phone Number | | Organization | | | | + + + + + | [facility] | [address] | [place] [address] | [phone] | + + + + + MRSA NAAT (07/29/2019 10:57 PM PST) + + + + + + | Component | Value | Ref Range | Performed | Pathologist | | | | | At | Signature | + + + + + + | SOURCE: | NARES(NOSE) | | [facility] | | | | | | LABORATORY | | + + + + + + | Result | NEGATIVEComment: Testing | MRSNEG | [facility] | | | | performed at [facility];[address] | | LABORATORY | | | | [address];[place], [place] | | | | | | [address] | | | | + + + + + + + + | Specimen | + + | Tissue - Both | | anterior nares (body | | structure) | + + + + + + + | Performing | Address | City/State/Zipcode | Phone Number | | Organization | | | | + + + + + | [facility] | [address] | [place] [address] | [phone] | + + + + + Culture, Blood (07/29/2019 10:23 PM PST) + + + + + + | Component | Value | Ref Range | Performed | Pathologist | | | | | At | Signature | + + + + + + | Special | RIGHT HAND | | [facility] | | | Requests | | | LABORATORY | | + + + + + + | Special | Testing performed at | | [facility] | | | Requests | [facility];[address] | | LABORATORY | | | | [address];[place] [address] | | | | + + + + + + | RESULT | NO GROWTH 6 DAYS | | [facility] | | | | | | LABORATORY | | + + + + + + | RESULT | Testing performed at | | [facility] | | | | [facility], [address] | | LABORATORY | | | | [place] | | | | | | [id number]: Testing | | | | | | performed at [facility], [address] | | | | | [address] [place] | | | | | | [address] | | | | + + + + + + + + | Specimen | + + | Blood - Peripheral | | blood specimen | | (specimen) | + + + + + + + | Performing | Address | City/State/Zipcode | Phone Number | | Organization | | | | + + + + + | [facility] | [address] | [place] [address] | [phone] | + + + + + Lactic Acid (07/29/2019 10:16 PM PST) + + + + + + | Component | Value | Ref Range | Performed | Pathologist | | | | | At | Signature | + + + + + + | Lactate, | 1.3Comment: Testing | 0.4 - 2.0 | [facility] | | | Serum | performed at [facility];[address] | mmol/L | LABORATORY | | | [address];[place] | | | | | | [address] | | | | + + + + + + + + | Specimen | + + | Blood | + + + + + + + | Performing | Address | City/State/Zipcode | Phone Number | | Organization | | | | + + + + + | [facility] | [address] | [place] [address] | [phone] | + + + + + Culture, Blood (07/29/2019 10:16 PM PST) + + + + + + | Component | Value | Ref Range | Performed | Pathologist | | | | | At | Signature | + + + + + + | Special | LEFT AC | | [facility] | | | Requests | | | LABORATORY | | + + + + + + | Special | Testing performed at | | [facility] | | | Requests | [facility];[address] | | LABORATORY | | | | [address];[place] [address] | | | | + + + + + + | RESULT | NO GROWTH 6 DAYS | | [facility] | | | | | | [facility] | | + + + + + + | RESULT | Testing performed at | | [facility] | | | | [facility], [address] [facility] | | LABORATORY | | | | [place] | | | | | | [id number]: Testing | | | | | | performed at [facility], [address] | [place] | | | | | | [address] | | | | + + + + + + + + | Specimen | + + | Blood - Peripheral | | blood specimen | | (specimen) | + + + + + + + | Performing | Address | City/State/Zipcode | Phone Number | | Organization | | | | + + + + + | [facility] | [address] | [place] [address] | [phone] | + + + + + Culture, Urine (07/29/2019 8:39 PM PST) + + + + + + | Component | Value | Ref Range | Performed | Pathologist | | | | | At | Signature | + + + + + + | RESULT | NO GROWTH | | [facility] | | | | | | LABORATORY | | + + + + + + | RESULT | Testing performed at | | [facility] | | | | [facility], [address] | | LABORATORY | | | | [place], [place], [place] | | | | | | [id number]: Testing | | | | | | performed at [facility], [address] | | | | | | [facility], | | | | | | [place] [address] | | | | + + + + + + + + | Specimen | + + | Urine - Urine | | specimen obtained by | | clean catch | | procedure (specimen) | + + + + + + + | Performing | Address | City/State/Zipcode | Phone Number | | Organization | | | | + + + + + | [facility] | [address] | [place] [address] | [phone] | + + + + + Urinalysis With Microscopic (07/29/2019 8:39 PM PST) + + + + + + | Component | Value | Ref Range | Performed | Pathologist | | | | | At | Signature | + + + + + + | Color, UA | STRAW | | [facility] | | | | | | LABORATORY | | + + + + + + | Clarity, UA | CLEAR | | [facility] | | | | | | LABORATORY | | + + + + + + | Specific | 1.029 | 1.002 - 1.030 | [facility] | | | [place], | | | LABORATORY | | | Urine | | | | | + + + + + + | Leukocyte | NEGATIVE | NEG | [facility] | | | esterase, | | | LABORATORY | | | UA | | | | | + + + + + + | Nitrite, UA | NEGATIVE | NEG | [facility] | | | | | | LABORATORY | | + + + + + + | Urobilinoge | NORMAL | <1.6 mg/dL | [facility] | | | n, Ur | | | LABORATORY | | + + + + + + | Protein, | NEGATIVE | NEG mg/dL | [facility] | | | Urine | | | LABORATORY | | | (mg/dL) | | | | | + + + + + + | pH, Urine | 6.0 | 5.0 - 8.0 | [facility] | | | | | | LABORATORY | | + + + + + + | Blood, UA | NEGATIVE | NEG | [facility] | | | | | | LABORATORY | | + + + + + + | Ketones, UA | NEGATIVE | NEG mg/dL | [facility] | | | | | | LABORATORY | | + + + + + + | Bilirubin, | NEGATIVE | NEG | [facility] | | | UA | | | LABORATORY | | + + + + + + | Glucose, Ur | NEGATIVE | NEG mg/dL | [facility] | | | | | | LABORATORY | | + + + + + + | WBC UA | 0-2 | 0 - 5 /hpf | [facility] | | | | | | LABORATORY | | + + + + + + | Red Blood | 0-2 | 0 - 2 /hpf | [facility] | | | Cells, | | | LABORATORY | | | Urine | | | | | + + + + + + | Squamous | NONE SEEN | /lpf | [facility] | | | Epithelial | | | LABORATORY | | | Cells, | | | | | | Urine | | | | | + + + + + + | Bacteria, | NONE SEENComment: | NONE | [facility] | | | Urine | Testing performed at | | LABORATORY | | | | [facility];[address] [facility] | | | | | | [facility];[place] [address] | | | | + + + + + + + + | Specimen | + + | Urine - Urine | | specimen obtained by | | clean catch | | procedure (specimen) | + + + + + + + | Performing | Address | City/State/Zipcode | Phone Number | | Organization | | | | + + + + + | [facility] | [address] | [place] [address] | [phone] | + + + + + Culture, Blood (07/29/2019 8:38 PM PST) + + + + + + | Component | Value | Ref Range | Performed | Pathologist | | | | | At | Signature | + + + + + + | Special | LAC | | [facility] | | | Requests | | | LABORATORY | | + + + + + + | Special | Testing performed at | | [facility] | | | Requests | [facility] | LABORAT[address] | | | [address];[place] [address] | | | | + + + + + + | RESULT | NO GROWTH 6 DAYS | | [facility] | | | | | | LABORATORY | | + + + + + + | RESULT | Testing performed at | | [facility] | | | | [place], [address] | | LABORATORY | | | | [place], [place] | | | | | | [id number]: Testing | | | | | | performed at [facility], [address] | | | | | | [place], [place] | | | | | | [address] | | | | + + + + + + + + | Specimen | + + | Blood - Peripheral | | blood specimen | | (specimen) | + + + + + + + | Performing | Address | City/State/Zipcode | Phone Number | | Organization | | | | + + + + + | [facility] | [address] | [place] [address] | [phone] | + + + + + CT Abdomen Pelvis w Contrast (07/29/2019 5:49 PM PST) + + | Specimen | + + | | + + + + + | Impressions | Performed At | + + + | 1. Complex fluid and air collection deep to the abdominal wall but | [facility] | | superficial to the mesh repair in the midline abdomen measuring 12.3 x | | | 2.4 by 7.6 cm. While this may be due to hematoma, abscess must be | | | considered. No fistula to the skin surface is seen presently. 2. | | | Probable chronic pancreatitis, cholecystectomy, right renal scarring, | | | left renal cysts, chronic right pelvic fractures with repair, | | | chronic L4 central superior endplate compression deformity. | | | Signed by: Trevin Walker, Keyur Sign Date/Time: 07/29/2019 6:06 PM | | + + + + + + | Narrative | Performed At | + + + | CT ABDOMEN AND PELVIS WITH CONTRAST CLINICAL INFORMATION: | [facility] | | Abdominal pain left side. COMPARISON: CT ABDOMEN W CONTRAST | | | (07/04/2019); CTA CHEST ABDOMEN PELVIS W CONTRAST (02/21/2019); CT | | | ABDOMEN PELVIS W CONTRAST (01/21/2018); CT ABDOMEN PELVIS W CONTRAST | | | (03/04/2016); PROCEDURE: Axial images through the abdomen and | | | pelvis after the administration of 100ml omnipaque 350 intravenous | | | contrast. Multiplanar reconstructions. At least one of the | | | following CT dose optimization techniques were used: Automated | | | exposure control; Adjustment of mA and/or kV according to patient | | | size; Use of iterative reconstruction technique. FINDINGS: LUNG | | | BASES: No significant pulmonary abnormality. No pleural effusion or | | | pneumothorax. ABDOMEN Liver and Biliary: Liver unremarkable. | | | Cholecystectomy. Pancreas, Spleen and Adrenals: 3 mm calcification | | | in the uncinate process of the pancreas , stable. This appears | | | inferior/medial to the CBD, probably due to chronic pancreatitis. I | | | doubt distal CBD stone. CBD 7 mm, stable. Pancreas otherwise | | | unremarkable. Spleen, adrenals unremarkable. Kidneys: 12 mm | | | lateral mid left renal cyst with smaller inferior pole cystic lesion, | | | unchanged perhaps due to smaller cyst, too small to characterize. | | | Scarring lateral upper pole of the right kidney again noted. | | | ABDOMEN AND PELVIS Bowel: No small bowel or colonic dilation or | | | adjacent inflammation. No appendiceal dilation or inflammation. | | | Vessels: Right common/proximal external iliac stent. No other | | | arterial abnormalities. No aneurysm. Patent portal vein. Lymph | | | Nodes: Lymph node medial to the pancreatic head measuring 1.4 x 3.0 | | | cm, stable dating back 03/04/2016, benign. No other evidence of | | | adenopathy. Peritoneum and Retroperitoneum: No free air. No | | | ascites. PELVIS Genitourinary: Distal ureters and bladder appear | | | normal. No pelvic masses. BODY WALL Soft Tissues: Abdominal | | | wall hernia repair, with complex debris and air superficial to the | | | mesh and deep to the abdominal wall measuring 12.3 cm transverse | | | by 2.4 cm AP by 7.6 cm superoinferior dimension, slightly increased | | | in size. This raises concern for abscess. Infiltration of the | | | abdominal wall in this region. No fistulization to the skin is seen | | | presently. Bones: Old healed right superior and inferior pubic | | | rami/pubic symphyseal fractures, with plate and screw fixation of the | | | right iliac wing extending through the SI joint, unchanged. Fusion | | | right SI joint. Chronic compression of the central L4 vertebral body | | | with preserved periphery. Spondylotic changes of the spine. No | | | listhesis. | | + + + + + | Procedure Note | + + | Ethan, Rad Results In - 07/29/2019 6:09 PM PST | | CT ABDOMEN AND PELVIS WITH CONTRAST | | | | CLINICAL INFORMATION: | | Abdominal pain left side. | | | | COMPARISON: | | CT ABDOMEN W CONTRAST (07/04/2019); CTA CHEST ABDOMEN PELVIS W | | CONTRAST (02/21/2019); CT ABDOMEN PELVIS W CONTRAST (01/21/2018); CT | | ABDOMEN PELVIS W CONTRAST (03/04/2016); | | | | PROCEDURE: | | Axial images through the abdomen and pelvis after the administration of | | 100ml omnipaque 350 intravenous contrast. Multiplanar reconstructions. | | | | At least one of the following CT dose optimization techniques were | | used: Automated exposure control; Adjustment of mA and/or kV according | | to patient size; Use of iterative reconstruction technique. | | | | FINDINGS: | | LUNG BASES: No significant pulmonary abnormality. No pleural effusion | | or pneumothorax. | | | | ABDOMEN | | Liver and Biliary: Liver unremarkable. Cholecystectomy. | | Pancreas, Spleen and Adrenals: 3 mm calcification in the uncinate | | process of the pancreas , stable. This appears inferior/medial to | | the CBD, probably due to chronic pancreatitis. I doubt distal CBD | | stone. CBD 7 mm, stable. Pancreas otherwise unremarkable. Spleen, | | adrenals unremarkable. | | Kidneys: 12 mm lateral mid left renal cyst with smaller inferior pole | | cystic lesion, unchanged perhaps due to smaller cyst, too small to | | characterize. Scarring lateral upper pole of the right kidney again | | noted. | | | | ABDOMEN AND PELVIS | | Bowel: No small bowel or colonic dilation or adjacent inflammation. No | | appendiceal dilation or inflammation. | | Vessels: Right common/proximal external iliac stent. No other arterial | | abnormalities. No aneurysm. Patent portal vein. | | Lymph Nodes: Lymph node medial to the pancreatic head measuring 1.4 x | | 3.0 cm, stable dating back 03/04/2016, benign. No other evidence of | | adenopathy. | | Peritoneum and Retroperitoneum: No free air. No ascites. | | | | PELVIS | | Genitourinary: Distal ureters and bladder appear normal. No pelvic | | masses. | | | | BODY WALL | | Soft Tissues: Abdominal wall hernia repair, with complex debris and air | | superficial to the mesh and deep to the abdominal wall measuring | | 12.3 cm transverse by 2.4 cm AP by 7.6 cm superoinferior dimension, | | slightly increased in size. This raises concern for abscess. | | Infiltration of the abdominal wall in this region. No fistulization to | | the skin is seen presently. | | Bones: Old healed right superior and inferior pubic rami/pubic | | symphyseal fractures, with plate and screw fixation of the right iliac | | wing extending through the SI joint, unchanged. Fusion right SI joint. | | Chronic compression of the central L4 vertebral body with preserved | | periphery. Spondylotic changes of the spine. No listhesis. | | | | IMPRESSION: | | 1. Complex fluid and air collection deep to the abdominal wall but | | superficial to the mesh repair in the midline abdomen measuring 12.3 x | | 2.4 by 7.6 cm. While this may be due to hematoma, abscess must be | | considered. No fistula to the skin surface is seen presently. | | 2. Probable chronic pancreatitis, cholecystectomy, right renal | | scarring, left renal cysts, chronic right pelvic fractures with repair, | | chronic L4 central superior endplate compression deformity. | | | | | | | | Signed by: Trevin Walker Shawn | | Sign Date/Time: 07/29/2019 6:06 PM | + + + +---------+ + + | Performing | Address | City/State/Zipcode | Phone Number | | Organization | | | | + +---------+ + + | [facility] | | | | + +---------+ + + Influenza A and B RNA, NAAT (07/29/2019 4:56 PM PST) + + + + + + | Component | Value | Ref Range | Performed | Pathologist | | | | | At | Signature | + + + + + + | Influenza A | NEGATIVE | NEG | [facility] | | | | | | LABORATORY | | + + + + + + | Influenza B | NEGATIVEComment: Testing | NEG | [facility] | | | | performed by Molecular | | LABORATORY | | | | MethodologyTesting | | | | | | performed at [facility] | | | | | | [address];[place], [place] | | | | | | [address] | | | | + + + + + + + + | Specimen | + + | | + + + + + + + | Performing | Address | City/State/Zipcode | Phone Number | | Organization | | | | + + + + + | [facility] | [address] | [place] [address] | [phone] | + + + + + XR Chest PA and Lateral (07/29/2019 4:44 PM PST) + + | Specimen | + + | | + + + + + | Impressions | Performed At | + + + | No significant abnormality. Signed by: Trevin Emery, | [facility] | | Eladio Sign Date/Time: 07/29/2019 4:50 PM | | + + + + + + | Narrative | Performed At | + + + | CHEST PA AND LATERAL CLINICAL INFORMATION: Cough and | [facility] | | congestion. COMPARISON: CTA CHEST ABDOMEN PELVIS W CONTRAST | | | (02/21/2019); SUPA C ARM GUIDANCE (02/05/2016); SUPA C ARM GUIDANCE | | | (01/07/2016); FINDINGS: Heart size normal. No consolidation, | | | pleural effusion, or pneumothorax. Minimal perihilar and basilar | | | linear atelectasis. Osseous structures unremarkable. | | + + + + + | Procedure Note | + + | Ethan, Rad Results In - 07/29/2019 4:53 PM PST | | CHEST PA AND LATERAL | | | | CLINICAL INFORMATION: | | Cough and congestion. | | | | COMPARISON: | | CTA CHEST ABDOMEN PELVIS W CONTRAST (02/21/2019); SUPA C ARM GUIDANCE | | (02/05/2016); SUPA C ARM GUIDANCE (01/07/2016); | | | | FINDINGS: | | Heart size normal. No consolidation, pleural effusion, or | | pneumothorax. Minimal perihilar and basilar linear atelectasis. | | Osseous structures unremarkable. | | | | IMPRESSION: | | No significant abnormality. | | | | | | | | Signed by: Trevin Emery Gregory | | Sign Date/Time: 07/29/2019 4:50 PM | + + + +---------+ + + | Performing | Address | City/State/Zipcode | Phone Number | | Organization | | | | + +---------+ + + | [facility] | | | | + +---------+ + + FLU SWAB COLLECTION (07/29/2019 4:30 PM PST) + + + + + + | Component | Value | Ref Range | Performed | Pathologist | | | | | At | Signature | + + + + + + | Collection | SPECIMEN RECEIVED IN | | [facility] | | | | LABComment: Testing | | LABORATORY | | | | performed at [facility];[address] | | | | | | [facility];[place], [place] | | | | | | [address] | | | | + + + + + + + + | Specimen | + + | Tissue - Entire | | nasopharynx (body | | structure) | + + + + + + + | Performing | Address | City/State/Zipcode | Phone Number | | Organization | | | | + + + + + | [facility] | [address] | [place] [address] | [phone] | + + + + + C-Reactive Protein (07/29/2019 4:30 PM PST) + + + + + + | Component | Value | Ref Range | Performed | Pathologist | | | | | At | Signature | + + + + + + | CRP | 8.1 (H)Comment: Testing | <0.5 mg/dL | [facility] | | | | performed at [facility];[address] | | LABORATORY | | | [address];[place], [place] | | | | | | [address] | | | | + + + + + + + + | Specimen | + + | Blood | + + + + + + + | Performing | Address | City/State/Zipcode | Phone Number | | Organization | | | | + + + + + | [facility] | [address] | [place] [address] | [phone] | + + + + + Lipase (07/29/2019 4:30 PM PST) + + + + + + | Component | Value | Ref Range | Performed | Pathologist | | | | | At | Signature | + + + + + + | Lipase | 26Comment: Testing | 12 - 53 U/L | [facility] | | | | performed at [facility];[address] | | LABORATORY | | | | [address];[place] | | | | | | [address] | | | | + + + + + + + + | Specimen | + + | Blood | + + + + + + + | Performing | Address | City/State/Zipcode | Phone Number | | Organization | | | | + + + + + | [facility] | [address] | [place] [address] | [phone] | + + + + + Comprehensive Metabolic Panel (07/29/2019 4:30 PM PST) + + + + + + | Component | Value | Ref Range | Performed | Pathologist | | | | | At | Signature | + + + + + + | Na | 141 | 135 - 145 | [facility] | | | | | mmol/L | LABORATORY | | + + + + + + | K | 3.6 | 3.5 - 4.9 | [facility] | | | | | mmol/L | LABORATORY | | + + + + + + | Cl | 108 | 99 - 109 mmol/L | [facility] | | | | | | LABORATORY | | + + + + + + | CO2 | 27 | 23 - 32 mmol/L | [facility] | | | | | | LABORATORY | | + + + + + + | Anion Gap | 10 | 5 - 20 mmol/L | [facility] | | | | | | LABORATORY | | + + + + + + | Glucose | 94 | 65 - 99 mg/dL | [facility] | | | | | | LABORATORY | | + + + + + + | BUN | 15 | 8 - 25 mg/dL | [facility] | | | | | | LABORATORY | | + + + + + + | Creatinine | 0.73 | 0.70 - 1.30 | [facility] | | | | | mg/dL | LABORATORY | | + + + + + + | BUN/Creatin | 21 | | [facility] | | | ine Ratio | | | LABORATORY | | + + + + + + | Calcium | 9.1 | 8.5 - 10.5 | [facility] | | | | | mg/dL | LABORATORY | | + + + + + + | Protein, | 6.8 | 6.3 - 8.2 g/dL | [facility] | | | Total | | | LABORATORY | | + + + + + + | Albumin | 4.2 | 3.6 - 5.0 g/dL | [facility] | | | | | | LABORATORY | | + + + + + + | Globulin | 2.6 | 1.3 - 4.9 g/dL | [facility] | | | | | | LABORATORY | | + + + + + + | A/G Ratio | 1.6 | 1.0 - 2.4 | [facility] | | | | | | LABORATORY | | + + + + + + | BILIRUBIN, | 0.3 | 0.1 - 1.5 mg/dL | [facility] | | | TOTAL | | | LABORATORY | | + + + + + + | ALK PHOS | 94 | 35 - 115 U/L | [facility] | | | | | | LABORATORY | | + + + + + + | AST | 12 | 10 - 45 U/L | [facility] | | | | | | LABORATORY | | + + + + + + | ALT | <7 (L) | 10 - 65 U/L | [facility] [...] | | | | | performed at [facility] | | | | | | [facility];[place], [place] | | | | | | [address] | | | | + + + + + + + + | Specimen | + + | Blood | + + + + + + + | Performing | Address | City/State/Zipcode | Phone Number | | Organization | | | | + + + + + | [facility] | [address] | [place] [address] | [phone] | + + + + + CBC with Differential (07/29/2019 4:30 PM PST) + + + + + + | Component | Value | Ref Range | Performed | Pathologist | | | | | At | Signature | + + + + + + | WBC | 9.19 | 3.80 - 11.00 | [facility] | | | | | K/uL | LABORATORY | | + + + + + + | RBC | 3.85 (L) | 4.20 - 5.70 | [facility] | | | | | M/uL | LABORATORY | | + + + + + + | Hemoglobin | 11.3 (L) | 13.2 - 17.0 | [facility] | | | | | g/dL | LABORATORY | | + + + + + + | Hematocrit | 33.4 (L) | 39.0 - 50.0 % | [facility] | | | | | | LABORATORY | | + + + + + + | MCV | 86.8 | 80.0 - 100.0 fl | [facility] | | | | | | LABORATORY | | + + + + + + | MCH | 29.3 | 27.0 - 34.0 pg | [facility] | | | | | | LABORATORY | | + + + + + + | MCHC | 33.7 | 32.0 - 35.5 | [facility] | | | | | g/dL | LABORATORY | | + + + + + + | RDW-SD | 49.9 | 37 - 53 fl | [facility] | | | | | | LABORATORY | | + + + + + + | Platelet | 470 (H) | 150 - 400 K/uL | [facility] | | | Count | | | LABORATORY | | + + + + + + | MPV | 7.7 | fl | [facility] | | | | | | LABORATORY | | + + + + + + | Diff Type | AUTOMATED | | [facility] | | | | | | LABORATORY | | + + + + + + | % | 65.89 | % | [facility] | | | Neutrophils | | | LABORATORY | | + + + + + + | % | 20.34 | % | [facility] | | | Lymphocytes | | | LABORATORY | | + + + + + + | Monocyte % | 11.66 | % | [facility] | | | | | | LABORATORY | | + + + + + + | Eosinophils | 1.23 | % | [facility] | | | % | | | LABORATORY | | + + + + + + | Basophils % | 0.88 | % | [facility] | | | | | | LABORATORY | | + + + + + + | Neutrophils | 6.06 | 1.90 - 7.40 | [facility] | | | , Absolute | | K/uL | LABORATORY | | + + + + + + | Absolute | 1.87 | 1.00 - 3.90 | [facility] | | | Lymphocytes | | K/uL | LABORATORY | | + + + + + + | Absolute | 1.07 (H) | 0.00 - 0.80 | [facility] | | | Monocytes | | K/uL | LABORATORY | | + + + + + + | Eosinophils | 0.11 | 0.00 - 0.50 | [facility] | | | , Absolute | | K/uL | LABORATORY | | + + + + + + | Basophils, | 0.08Comment: Testing | 0.00 - 0.10 | [facility] | | | Absolute | performed at [facility];[address] | [address] | LABORATORY | | | | [address];[place] | | | | | | [address] | | | | + + + + + + + + | Specimen | + + | Blood | + + + + + + + | Performing | Address | City/State/Zipcode | Phone Number | | Organization | | | | + + + + + | [facility] | [address] | [place] [address] | [phone] | + + + + + documented in this encounter Visit Diagnoses + + | Diagnosis | + + | Abdominal wall abscess - Primary Cellulitis and abscess of trunk | + + | Intra-abdominal abscess (HCC) Peritoneal abscess | + + | History of ventral hernia repair Personal history of surgery to other organs | + + | History of allergy to antibiotic agent Personal history of allergy to other | | antibiotic agent | + + | Abdominal pain, generalized | + + | HTN (hypertension), benign Essential hypertension, benign | + + | History of hernia repair Other postprocedural status | + + | Gastroesophageal reflux disease, esophagitis presence not specified | + + | History of traumatic brain injury Personal history of traumatic brain injury | + + documented in this encounter Administered Medications + +--------+ +--------+------+------+ | Medication Order | MAR | Action | Dose | Rate | Site | | | Action | Date | | | | + +--------+ +--------+------+------+ | acetaminophen (TYLENOL) tablet | Given | 08/09/20 | 650 mg | | | | 650 mg 650 mg, Oral, EVERY 4 | | 19 3:00 | | | | | HOURS PRN, Pain, or fever >= 38.6 | | AM PST | | | | | C (101.5 F), Starting Fri | | | | | | | 07/29/19 at 2205 | | | | | | + +--------+ +--------+------+------+ +-------+ +--------+---+---+ | Given | 08/08/20 | 650 mg | | | | | 19 6:03 | | | | | | PM PST | | | | +-------+ +--------+---+---+ +---+---+ | | | +---+---+ + +-------+ +-------+---+---+ | amLODIPine (NORVASC) tablet 10 | Given | 08/09/20 | 10 mg | | | | mg 10 mg, Oral, DAILY, First | | 19 9:40 | | | | | dose on 07/30/19 at 0900 | | AM PST | | | | + +-------+ +-------+---+---+ +-------+ +-------+---+---+ | Given | 08/08/20 | 10 mg | | | | | 19 9:04 | | | | | | AM PST | | | | +-------+ +-------+---+---+ | Given | 08/07/20 | 10 mg | | | | | 19 7:56 | | | | | | AM PST | | | | +-------+ +-------+---+---+ +---+---+ | | | +---+---+ + +-------+ +------+---+---+ | apixaban (ELIQUIS) tablet 5 mg | Given | 08/09/20 | 5 mg | | | | 5 mg, Oral, 2 TIMES DAILY, First | | 19 9:41 | | | | | dose on 07/30/19 at 1345 | | AM PST | | | | + +-------+ +------+---+---+ +-------+ +------+---+---+ | Given | 08/08/20 | 5 mg | | | | | 19 8:13 | | | | | | PM PST | | | | +-------+ +------+---+---+ | Given | 08/08/20 | 5 mg | | | | | 19 9:05 | | | | | | AM PST | | | | +-------+ +------+---+---+ +---+---+ | | | +---+---+ + +-------+ +--------+---+---+ | benzonatate (TESSALON) capsule | Given | 08/08/20 | 200 mg | | | | 200 mg 200 mg, Oral, EVERY 8 | | 19 11:12 | | | | | HOURS PRN, Cough, Starting Mon | | PM PST | | | | | 08/01/19 at 2236, Swallow capsule | | | | | | | whole. Do not chew or crush., | | | | | | + +-------+ +--------+---+---+ +-------+ +--------+---+---+ | Given | 08/07/20 | 200 mg | | | | | 19 8:04 | | | | | | PM PST | | | | +-------+ +--------+---+---+ | Given | 08/06/20 | 200 mg | | | | | 19 9:56 | | | | | | PM PST | | | | +-------+ +--------+---+---+ +---+---+ | | | +---+---+ + +---------+ +-----+-------+---+ | cefOXitin (MEFOXIN) 2 g in | New Bag | 07/29/20 | 2 g | 100 | | | sodium chloride 0.9% 50 mL IVPB | | 19 7:42 | | mL/hr | | | 2 g, Intravenous, Administer over | | PM PST | | | | | 30 Minutes, ONCE, 07/29/19 | | | | | | | at 1930, For 1 dose, Activate | | | | | | | system and mix before use., | | | | | | | Indications: Intra-Abdominal | | | | | | | Infection | | | | | | + +---------+ +-----+-------+---+ +---+---+ | | | +---+---+ + +-------+ +-------+---+---+ | clopidogrel (PLAVIX) tablet 75 | Given | 08/09/20 | 75 mg | | | | mg 75 mg, Oral, DAILY, First | | 19 9:40 | | | | | dose on 07/30/19 at 1345 | | AM PST | | | | + +-------+ +-------+---+---+ +-------+ +-------+---+---+ | Given | 08/08/20 | 75 mg | | | | | 19 9:04 | | | | | | AM PST | | | | +-------+ +-------+---+---+ | Given | 08/07/20 | 75 mg | | | | | 19 7:55 | | | | | | AM PST | | | | +-------+ +-------+---+---+ +---+---+ | | | +---+---+ + +-------+ +-----+---+---+ | diclofenac (VOLTAREN) 1% gel 4 | Given | 08/08/20 | 4 g | | | | g 4 g, Topical, 4 TIMES DAILY, | | 19 6:03 | | | | | First dose on 08/07/19 at | | PM PST | | | | | 1300, Do not cover area with | | | | | | | occlusive dressings or wash area | | | | | | | for 1 hour after application. Use | | | | | | | the dosing card to correctly | | | | | | | measure each dose. (2 g = 2.25 | | | | | | | inches, 4 g = 4.5 inches) After | | | | | | | using the dosing card, hold end | | | | | | | with fingertips, rinse and dry. | | | | | | | Store dosing card until next | | | | | | | use., Apply to: Back-Lower | | | | | | + +-------+ +-----+---+---+ +-------+ +-----+---+---+ | Given | 08/07/20 | 4 g | | | | | 19 8:04 | | | | | | PM PST | | | | +-------+ +-----+---+---+ | Given | 08/07/20 | 4 g | | | | | 19 4:54 | | | | | | PM PST | | | | +-------+ +-----+---+---+ + +---+ | | | + +---+ | docusate sodium (COLACE) | | | capsule 100 mg 100 mg, Oral, 2 | | | TIMES DAILY PRN, Constipation, | | | Starting 08/06/19 at 1148, | | | Swallow capsule whole., | | + +---+ | | | + +---+ + +---------+ +-----+-------+---+ | ertapenem (INVanz) 1 g in | New Bag | 08/09/20 | 1 g | 100 | | | sodium chloride 0.9% 50 mL IVPB | | 19 12:07 | | mL/hr | | | 1 g, Intravenous, Administer over | | PM PST | | | | | 30 Minutes, EVERY 24 HOURS | | | | | | | INTERVAL, First dose on Fri | | | | | | | 08/05/19 at 1230, Activate system | | | | | | | and mix before use., | | | | | | | Indications: Acute Abdominal | | | | | | | Condition, Intra-Abdominal | | | | | | | Infection | | | | | | + +---------+ +-----+-------+---+ +---------+ +-----+-------+---+ | New Bag | 08/08/20 | 1 g | 100 | | | | 19 1:16 | | mL/hr | | | | PM PST | | | | +---------+ +-----+-------+---+ | New Bag | 08/07/20 | 1 g | 100 | | | | 19 2:34 | | mL/hr | | | | PM PST | | | | +---------+ +-----+-------+---+ +---+---+ | | | +---+---+ + +-------+ +--------+---+---+ | fentaNYL (PF) injection 50 mcg | Given | 07/29/20 | 50 mcg | | | | 50 mcg, Intravenous, ONCE, Fri | | 19 4:44 | | | | | 07/29/19 at 1620, For 1 dose | | PM PST | | | | + +-------+ +--------+---+---+ +---+---+ | | | +---+---+ + +-------+ +--------+---+---+ | fentaNYL (PF) injection | Given | 07/30/20 | 25 mcg | | | | Intravenous, PRN, Starting Sat | | 19 10:51 | | | | | 07/30/19 at 1028 | | AM PST | | | | + +-------+ +--------+---+---+ +-------+ +--------+---+---+ | Given | 07/30/20 | 50 mcg | | | | | 19 10:42 | | | | | | AM PST | | | | +-------+ +--------+---+---+ | Given | 07/30/20 | 50 mcg | | | | | 19 10:35 | | | | | | AM PST | | | | +-------+ +--------+---+---+ +---+---+ | | | +---+---+ + +-------+ +--------+---+---+ | gabapentin (NEURONTIN) capsule | Given | 08/09/20 | 600 mg | | | | 600 mg 600 mg, Oral, 2 TIMES | | 19 9:41 | | | | | DAILY, First dose on Thu07/29/19 | | AM PST | | | | | at 2230 | | | | | | + +-------+ +--------+---+---+ +-------+ +--------+---+---+ | Given | 08/08/20 | 600 mg | | | | | 19 8:13 | | | | | | PM PST | | | | +-------+ +--------+---+---+ | Given | 08/08/20 | 600 mg | | | | | 19 9:04 | | | | | | AM PST | | | | +-------+ +--------+---+---+ +---+---+ | | | +---+---+ + +-------+ +--------+---+ + | heparin 5,000 units/mL | Given | 07/29/20 | 5,000 | | Abdomen- | | injection 5,000 Units 5,000 | | 19 10:50 | Units | | LUQ | | Units, Subcutaneous, EVERY 12 | | PM PST | | | | | HOURS (2 times per day), First | | | | | | | dose on Thu07/29/19 at 2230 | | | | | | + +-------+ +--------+---+ + +---+---+ | | | +---+---+ + +-------+ +------+---+---+ | HYDROmorphone (DILAUDID) | Given | 08/07/20 | 1 mg | | | | injection 0.25-1 mg 0.25-1 mg, | | 19 6:55 | | | | | Intravenous, EVERY 2 HOURS PRN, | | PM PST | | | | | Pain, Starting Thu07/29/19 at | | | | | | | 2205, Use IV morphine first if | | | | | | | ordered. Slow IV push, not faster | | | | | | | than 0.25 mg/minute. If | | | | | | | ineffective or not tolerated and | | | | | | | unable to take oral opioid - | | | | | | | contact MD., | | | | | | + +-------+ +------+---+---+ +-------+ +------+---+---+ | Given | 08/07/20 | 1 mg | | | | | 19 7:57 | | | | | | AM PST | | | | +-------+ +------+---+---+ | Given | 08/07/20 | 1 mg | | | | | 19 12:03 | | | | | | AM PST | | | | +-------+ +------+---+---+ +---+---+ | | | +---+---+ + +-------+ +---------+---+---+ | iohexol (OMNIPAQUE 350) 350 | Given | 07/29/20 | 100 mLs | | | | mg/mL injection 100 mL 100 mL, | | 19 5:38 | | | | | Intravenous, ONCE PRN, Other, | | PM PST | | | | | Starting Thu07/29/19 at 1738, | | | | | | | For 1 dose, Cat Scanner | | | | | | + +-------+ +---------+---+---+ +---+---+ | | | +---+---+ + +---------+ +--------+-------+---+ | levoFLOXacin in dextrose | New Bag | 08/04/20 | 750 mg | 100 | | | (LEVAQUIN) IVPB 750 mg 750 mg, | | 19 10:00 | | mL/hr | | | Intravenous, Administer over 90 | | PM PST | | | | | Minutes, DAILY, First dose on Thu | | | | | | | 07/29/19 at 2230, Indications: | | | | | | | PURULENT SKIN AND SOFT TISSUE | | | | | | | INFECTION | | | | | | + +---------+ +--------+-------+---+ +---------+ +--------+-------+---+ | New Bag | 08/03/20 | 750 mg | 100 | | | | 19 11:26 | | mL/hr | | | | PM PST | | | | +---------+ +--------+-------+---+ | New Bag | 08/02/20 | 750 mg | 100 | | | | 19 10:35 | | mL/hr | | | | PM PST | | | | +---------+ +--------+-------+---+ +---+---+ | | | +---+---+ + +-------+ +------+---+---+ | LORazepam (ATIVAN) injection 1 | Given | 07/29/20 | 1 mg | | | | mg 1 mg, Intravenous, ONCE, Fri | | 19 7:42 | | | | | 07/29/19 at 1915, For 1 dose | | PM PST | | | | + +-------+ +------+---+---+ +---+---+ | | | +---+---+ + +-------+ +------+---+---+ | LORazepam (ATIVAN) tablet 2 mg | Given | 08/09/20 | 2 mg | | | | 2 mg, Oral, EVERY 6 HOURS PRN, | | 19 1:57 | | | | | Anxiety, Starting Thu07/29/19 at | | PM PST | | | | | 2205 | | | | | | + +-------+ +------+---+---+ +-------+ +------+---+---+ | Given | 08/08/20 | 2 mg | | | | | 19 8:17 | | | | | | PM PST | | | | +-------+ +------+---+---+ | Given | 08/07/20 | 2 mg | | | | | 19 8:05 | | | | | | PM PST | | | | +-------+ +------+---+---+ +---+---+ | | | +---+---+ + +-------+ +--------+---+---+ | magnesium oxide (MAG-OX) tablet | Given | 08/09/20 | 400 mg | | | | 400 mg 400 mg, Oral, DAILY, | | 19 9:40 | | | | | First dose on Thu08/05/19 at | | AM PST | | | | | 1015 | | | | | | + +-------+ +--------+---+---+ +-------+ +--------+---+---+ | Given | 08/08/20 | 400 mg | | | | | 19 9:04 | | | | | | AM PST | | | | +-------+ +--------+---+---+ | Given | 08/07/20 | 400 mg | | | | | 19 7:55 | | | | | | AM PST | | | | +-------+ +--------+---+---+ +---+---+ | | | +---+---+ + +-------+ +------+---+---+ | melatonin tablet 3 mg 3 mg, | Given | 08/08/20 | 3 mg | | | | Oral, NIGHTLY James PACKER, | | 19 8:17 | | | | | Starting 07/29/19 at 2205 | | PM PST | | | | + +-------+ +------+---+---+ +-------+ +------+---+---+ | Given | 08/07/20 | 3 mg | | | | | 19 8:04 | | | | | | PM PST | | | | +-------+ +------+---+---+ | Given | 08/06/20 | 3 mg | | | | | 19 9:56 | | | | | | PM PST | | | | +-------+ +------+---+---+ +---+---+ | | | +---+---+ + +-------+ + +---+---+ | methocarbamol (ROBAXIN) tablet | Given | 08/09/20 | 1,000 mg | | | | 1,000 mg 1,000 mg, Oral, 4 TIMES | | 19 12:07 | | | | | DAILY PRN, Muscle spasms, | | PM PST | | | | | Starting 07/29/19 at 2205 | | | | | | + +-------+ + +---+---+ +-------+ + +---+---+ | Given | 08/09/20 | 1,000 mg | | | | | 19 3:00 | | | | | | AM PST | | | | +-------+ + +---+---+ | Given | 08/08/20 | 1,000 mg | | | | | 19 5:54 | | | | | | PM PST | | | | +-------+ + +---+---+ +---+---+ | | | +---+---+ + +---------+ +--------+-------+---+ | metroNIDAZOLE in saline | New Bag | 08/05/20 | 500 mg | 100 | | | (FLAGYL) IVPB 500 mg 500 mg, | | 19 8:39 | | mL/hr | | | Intravenous, Administer over 1 | | AM PST | | | | | Hours, EVERY 8 HOURS (3 times per | | | | | | | day), First dose on Thu07/29/19 | | | | | | | at 2300, Do not refrigerate., | | | | | | | Indications: PURULENT SKIN AND | | | | | | | SOFT TISSUE INFECTION | | | | | | + +---------+ +--------+-------+---+ +---------+ +--------+-------+---+ | New Bag | 08/05/20 | 500 mg | 100 | | | | 19 1:05 | | mL/hr | | | | AM PST | | | | +---------+ +--------+-------+---+ | New Bag | 08/04/20 | 500 mg | 100 | | | | 19 4:54 | | mL/hr | | | | PM PST | | | | +---------+ +--------+-------+---+ +---+---+ | | | +---+---+ + +-------+ +------+---+---+ | midazolam (VERSED) 1 mg/mL | Given | 07/30/20 | 1 mg | | | | injection Intravenous, PRN, | | 19 10:51 | | | | | Starting 07/30/19 at 1029 | | AM PST | | | | + +-------+ +------+---+---+ +-------+ +------+---+---+ | Given | 07/30/20 | 1 mg | | | | | 19 10:35 | | | | | | AM PST | | | | +-------+ +------+---+---+ | Given | 07/30/20 | 1 mg | | | | | 19 10:29 | | | | | | AM PST | | | | +-------+ +------+---+---+ +---+---+ | | | +---+---+ + +-------+ +------+---+---+ | ondansetron (ZOFRAN) injection | Given | 07/29/20 | 4 mg | | | | 4 mg 4 mg, Intravenous, ONCE, | | 19 4:44 | | | | | 07/29/19 at 1620, For 1 dose | | PM PST | | | | + +-------+ +------+---+---+ +---+---+ | | | +---+---+ + +-------+ +------+---+---+ | ondansetron (ZOFRAN) injection | Given | 08/02/20 | 4 mg | | | | 4 mg 4 mg, Intravenous, EVERY 6 | | 19 6:02 | | | | | HOURS PRN, Nausea, Vomiting, | | AM PST | | | | | Starting 07/29/19 at 2205, | | | | | | | First line agent, | | | | | | + +-------+ +------+---+---+ +-------+ +------+---+---+ | Given | 07/31/20 | 4 mg | | | | | 19 5:46 | | | | | | AM PST | | | | +-------+ +------+---+---+ | Given | 07/31/20 | 4 mg | | | | | 19 12:01 | | | | | | AM PST | | | | +-------+ +------+---+---+ +---+---+ | | | +---+---+ + +-------+ +-------+---+---+ | oxyCODONE (ROXICODONE) tablet | Given | 08/09/20 | 30 mg | | | | 15-30 mg 15-30 mg, Oral, EVERY 3 | | 19 1:57 | | | | | HOURS, First dose on Sat | | PM PST | | | | | 07/30/19 at 0000 | | | | | | + +-------+ +-------+---+---+ +-------+ +-------+---+---+ | Given | 08/09/20 | 30 mg | | | | | 19 9:41 | | | | | | AM PST | | | | +-------+ +-------+---+---+ | Given | 08/09/20 | 30 mg | | | | | 19 6:31 | | | | | | AM PST | | | | +-------+ +-------+---+---+ +---+---+ | | | +---+---+ + +-------+ +-------+---+---+ | pantoprazole (PROTONIX) DR | Given | 08/09/20 | 40 mg | | | | tablet 40 mg 40 mg, Oral, DAILY | | 19 4:36 | | | | | BEFORE BREAKFAST, First dose on | | AM PST | | | | | 07/30/19 at 0730, Indication: | | | | | | | GERD | | | | | | + +-------+ +-------+---+---+ +-------+ +-------+---+---+ | Given | 08/08/20 | 40 mg | | | | | 19 9:04 | | | | | | AM PST | | | | +-------+ +-------+---+---+ | Given | 08/07/20 | 40 mg | | | | | 19 6:35 | | | | | | AM PST | | | | +-------+ +-------+---+---+ +---+---+ | | | +---+---+ + +-------+ +------+---+---+ | polyethylene glycol (MIRALAX) | Given | 08/08/20 | 17 g | | | | powder 17 g 17 g, Oral, DAILY, | | 19 9:07 | | | | | First dose on 08/06/19 at | | AM PST | | | | | 1230, Mix with 8 oz. water., | | | | | | + +-------+ +------+---+---+ +-------+ +------+---+---+ | Given | 08/07/20 | 17 g | | | | | 19 7:54 | | | | | | AM PST | | | | +-------+ +------+---+---+ | Given | 08/06/20 | 17 g | | | | | 19 1:42 | | | | | | PM PST | | | | +-------+ +------+---+---+ +---+---+ | | | +---+---+ + +-------+ +--------+---+---+ | potassium chloride (KLOR-CON) | Given | 08/09/20 | 10 mEq | | | | ER tablet 10 mEq 10 mEq, Oral, | | 19 9:40 | | | | | DAILY, First dose on Thu08/05/19 | | AM PST | | | | | at 1015, May take with food to | | | | | | | decrease GI upset., | | | | | | + +-------+ +--------+---+---+ +-------+ +--------+---+---+ | Given | 08/08/20 | 10 mEq | | | | | 19 9:03 | | | | | | AM PST | | | | +-------+ +--------+---+---+ | Given | 08/07/20 | 10 mEq | | | | | 19 7:56 | | | | | | AM PST | | | | +-------+ +--------+---+---+ +---+---+ | | | +---+---+ + +-------+ +--------+---+---+ | potassium chloride (KLOR-CON) | Given | 08/05/20 | 40 mEq | | | | ER tablet 20-40 mEq 20-40 mEq, | | 19 9:38 | | | | | Oral, DAILY PRN, Per protocol, | | AM PST | | | | | Starting Thu08/05/19 at 0921, | | | | | | | NON-ICU Protocol Replace | | | | | | | potassium once per day based on | | | | | | | morning potassium level. Use | | | | | | | scale below to determine dose. If | | | | | | | further replacement is required | | | | | | | after this morning dose of | | | | | | | potassium, notify provider | | | | | | | Protocol NOT recommended if Scr > | | | | | | | 1.8, dialysis patients or CrCl < | | | | | | | 50 mL/min [K+] =3.6 - 4 mEql/L | | | | | | | Give 20 mEq KCl PO x 1 dose | | | | | | | [K+] 3.0 - 3.5 mEql/L Give 40 | | | | | | | mEq KCl PO x 1 dose [K+] < 3.0 | | | | | | | mEq/L Notify provider * | | | | | | | Recheck K+ 4 hours after | | | | | | | replacement is done. Give tablet | | | | | | | or liquid but never both. If | | | | | | | repeat K is still < 3.5, contact | | | | | | | provider for further instruction. | | | | | | | May take with food to decrease | | | | | | | GI upset., | | | | | | + +-------+ +--------+---+---+ + +---+ | | | + +---+ | potassium chloride (KLOR-CON) | | | packet 20-40 mEq 20-40 mEq, Per | | | G Tube, DAILY PRN, Per Protocol, | | | Starting Thu08/05/19 at 0921, | | | NON-ICU Protocol Replace | | | potassium once per day based on | | | morning potassium level. Use | | | scale below to determine dose. If | | | further replacement is required | | | after this morning dose of | | | potassium, notify provider | | | Protocol NOT recommended if Scr > | | | 1.8, dialysis patients or CrCl < | | | 50 mL/min [K+] =3.6 - 4 mEql/L | | | Give 20 mEq KCl PO x 1 dose | | | [K+] 3.0 - 3.5 mEql/L Give 40 | | | mEq KCl PO x 1 dose [K+] < 3.0 | | | mEq/L Notify provider * | | | Recheck K+ 4 hours after | | | replacement is done. Give tablet | | | or liquid but never both. If | | | repeat K is still < 3.5, contact | | | provider for further | | | instruction., | | + +---+ | | | + +---+ + +-------+ +-------+---+---+ | QUEtiapine (SEROquel) tablet 50 | Given | 08/09/20 | 50 mg | | | | mg 50 mg, Oral, 2 TIMES DAILY, | | 19 9:40 | | | | | First dose on Thu08/03/19 at | | AM PST | | | | | 2100 | | | | | | + +-------+ +-------+---+---+ +-------+ +-------+---+---+ | Given | 08/08/20 | 50 mg | | | | | 19 8:13 | | | | | | PM PST | | | | +-------+ +-------+---+---+ | Given | 08/08/20 | 50 mg | | | | | 19 9:05 | | | | | | AM PST | | | | +-------+ +-------+---+---+ +---+---+ | | | +---+---+ + +---------+ +--------+-------+---+ | sodium chloride 0.9% (NS) bolus | New Bag | 07/29/20 | 1,000 | 1000 | | | 1,000 mL 1,000 mL, Intravenous, | | 19 4:46 | mLs | mL/hr | | | Administer over 1 Hours, ONCE, | | PM PST | | | | | 07/29/19 at 1620, For 1 dose | | | | | | + +---------+ +--------+-------+---+ +---+---+ | | | +---+---+ + +---------+ +---+ +---+ | sodium chloride 0.9% (NS) | New Bag | 08/04/20 | | 75 mL/hr | | | infusion at 75 mL/hr, | | 19 4:54 | | | | | Intravenous, CONTINUOUS, Starting | | PM PST | | | | | [facility] 07/29/19 at 2230 | | | | | | + +---------+ +---+ +---+ +---------+ +---+ +---+ | New Bag | 08/04/20 | | 75 mL/hr | | | | 19 1:02 | | | | | | AM PST | | | | +---------+ +---+ +---+ | New Bag | 08/03/20 | | 75 mL/hr | | | | 19 1:45 | | | | | | PM PST | | | | +---------+ +---+ +---+ +---+---+ | | | +---+---+ + +-------+ +--------+---+---+ | tamsulosin (FLOMAX) capsule 0.8 | Given | 08/09/20 | 0.8 mg | | | | mg 0.8 mg, Oral, DAILY, First | | 19 9:40 | | | | | dose on 07/30/19 at 0900, Do | | AM PST | | [...] +-------+ +--------+---+---+ +-------+ +--------+---+---+ | Given | 08/08/20 | 0.8 mg | | | | | 19 9:05 | | | | | | AM PST | | | | +-------+ +--------+---+---+ | Given | 08/07/20 | 0.8 mg | | | | | 19 7:57 | | | | | | AM PST | | | | +-------+ +--------+---+---+ +---+---+ | | | +---+---+ documented in this encounter
--- OUTSIDE RECORDS SUMMARY | ~2020-01-30 | XMS | Encounter Summary ---
Demographics + + + | Address | [address] | | | [place] [address] | + + + | Home Phone | | + + + | Preferred Language | Unknown | + + + | Marital Status | | + + + | Taoist Affiliation | 1013 | + + + | Race | Unknown | + + + | Ethnic Group | Unknown | + + + Author + + + | Author | [facility] | | | and [place] | + + + | Organization | [facility] [...] [place] | | | | | [address] | | + + + + + Care Team Providers + +------+ + | Care Dock Associate Name | Role | Phone | + +------+ + | Allison Fairchild NP | PCP | | + +------+ + Encounter Details +--------+ + + + + | Date | Type | Department | Care Team | Description | +--------+ + + + + | 11/17/ | Documentati | [facility] | Adrian Aponte MD | | | 2018 | on | GASTROENTEROLOGY | [address] | | | | | [address] | [place], [place] | | | | | [address] [place] | [address] | | | | | [address] | [phone] | | | | | [phone] | | | +--------+ + + + [...] documented as of this encounter Progress Notes Anna Rodriguez RN - 11/17/2017 11:37 AM PDTPatient agreed to check-in tomorrow at 0730 fo r EGD instead of 1000 due to cancellation; he will be NPO 4 hours prior; OR booking informed . documented in this e ncounter Plan of Treatment Not on filedocumented as of this encounter Visit Diagnoses Not on filedocumented in this encounter"
--- OUTSIDE RECORDS SUMMARY | ~2020-01-30 | XMS | Encounter Summary ---
Demographics + + + | Address | [address] | | | [place] [address] | + + + | Home Phone | | + + + | Preferred Language | Unknown | + + + | Marital Status | | + + + | Tenriism Affiliation | 1013 | + + + | Race | Unknown | + + + | Ethnic Group | Unknown | + + + Author + + + | Author | [facility] | | | and [place] | + + + | Organization | [facility] | | | and [place] [...] [place] | | | | | [address] | | + + + + + Care Team Providers + +------+ + | Care Clay Artist Name | Role | Phone | + +------+ + PCP | Unavailable | + +------+ + Encounter Details +--------+ + + + + | Date | Type | Department | Care Team | Description | +--------+ + + + + | 07/12/ | Emergency | [facility] | | Leukocytosis; Nausea | | 2013 | | MEDICAL CENTER | | and vomiting; UTI | | | | EMERGENCY CENTER | | (urinary tract | | | | [address] | | infection); Acute | | | | [place] | | bronchiolitis; | | | | [address] | | Abdominal pain, | | | | [phone] | | acute | +--------+ + + [...] GROWTH | | | Testing performed at [facility], [address] | | | [place] [address] | | + + + + +---------+ [...] EXTERNAL | | | | performed at [facility];[address] | | LAB | | | | [address];[place] | | | | | | [address] | | | | + + + + + + | RBC, UA | 0-2Comment: Testing | 0 - 2 /hpf | EXTERNAL | | | | performed at [facility];[address] | | LAB | | | | [address];[place] | | | | | | [address] | | | | + + + + + + | Epithelial | NONE SEENComment: | /lpf | EXTERNAL | | | Cells | Testing performed at | | LAB | | | | [facility];[address] | | | [address];[place] [address] | | | | + + + + + + | Bacteria, | 1+ (A)Comment: Testing | | EXTERNAL | | | UA | performed at [facility];[address] | | LAB | | | | [address];[place] | | | | | | [address] | | | | + + + + + + | Mucus, | 4+Comment: Testing | | EXTERNAL | | | Urine | performed at [facility];[address] | | LAB | | | | [address];[place] | | | | | | [address] | | | | + + + + + + | CASTS | 11-15Comment: | /lpf | EXTERNAL | | | | HYALINETesting performed | | LAB | | | | at [facility];[address] | | | | | | [address];[place] [address] | | | | | | | [...] MaleCT | | CHEST ABDOMEN PELVIS W TXJCZWZO49/5/2014 4:45 PM HISTORY: Dyspnea with recent surgical [...] (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), | | | | | | 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) | | | | | | on 07/12/2014 6:05:10 PM | | | | | | | | | | + + + + + + + + | Specimen | + + | | + + + + + | Narrative | Performed At | + + + | Historically converted procedure from [facility] environment | EXTERNAL LAB | + + [...] TONI | | | Testing performed at [facility];[address] | [address];[place] [address] CULTURE | | | NO GROWTH | | | Testing performed at [facility], [address], [place], [place] | | | [address] | | + + + + +---------+ [...] EXTERNAL | | | | performed at [facility];[address] | | LAB | | | | [address];[place] | | | | | | [address] | | | | + + + + + -+ | Red Blood | 4.67Comment: Testing | 4.20 - 5.70 | EXTERNAL | | | Cells | performed at [facility];[address] | M/uL | LAB | | | Counted | [address];[place] | | | | | | [address] | | | | + + + + + -+ | Hemoglobin | 13.9Comment: Testing | 13.2 - 17.0 | EXTERNAL | | | | performed at [facility];[address] | g/dL | LAB | | | | [address];[place] | | | | | | [address] | | | | + + + + + -+ | Hematocrit, | 41.9Comment: Testing | 39.0 - 50.0 % | EXTERNAL | | | POC | performed at [facility];[address] | | LAB | | | | [address];[place] | | | | | | [address] | | | | + + + + + -+ | MCV | 89.6Comment: Testing | 80.0 - 100.0 fl | EXTERNAL | | | | performed at [facility];[address] | | LAB | | | | [address];[place] | | | | | | [address] | | | | + + + + + -+ | MCH | 29.7Comment: Testing | 27.0 - 34.0 pg | EXTERNAL | | | | performed at [facility];[address] | | LAB | | | | [address];[place] | | | | | | [address] | | | | + + + + + -+ | MCHC | 33.2Comment: Testing | 32.0 - 35.5 | EXTERNAL | | | | performed at [facility];[address] | g/dL | LAB | | | | [address];[place] | | | | | | [address] | | | | + + + + + -+ | RDW-CV | 46.4Comment: Testing | 37 - 53 fl | EXTERNAL | | | | performed at [facility];[address] | | LAB | | | | [address];[place] | | | | | | [address] | | | | + + + + + -+ | Platelet | 603 (H)Comment: Testing | 150 - 400 K/uL | EXTERNAL | | | Count | performed at [facility];[address] | | LAB | | | Plasma | [address];[place] | | | | | | [address] | | | | + + + + + -+ | MPV | 7.8Comment: Testing | fl | EXTERNAL | | | | performed at [facility];[address] | | LAB | | | | [address];[place] | | | | | | [address] | | | | + + + + + -+ | Differentia | MANUALComment: Testing | | EXTERNAL | | | l Type | performed at [facility];[address] | | LAB | | | | [address];[place] | | | | | | [address] | | | | + + + + + -+ | Segmented | 73Comment: Testing | % | EXTERNAL | | | Neutrophils | performed at [facility];[address] | | LAB | | | Manual | [address];[place] | | | | | | [address] | | | | + + + + + -+ | % Bands | 4Comment: Testing | % | EXTERNAL | | | | performed at [facility];[address] | | LAB | | | | [address];[place] | | | | | | [address] | | | | + + + + + -+ | Lymphocytes | 18Comment: Testing | % | EXTERNAL | | | Manual | performed at [facility];[address] | | LAB | | | | [address];[place] | | | | | | [address] | | | | + + + + + -+ | Monocytes | 5Comment: Testing | % | EXTERNAL | | | Manual | performed at [facility];[address] | | LAB | | | | [address];[place] | | | | | | [address] | | | | + + + + + -+ | Absolute | 11.5 (H)Comment: Testing | 1.9 - 7.4 K/uL | EXTERNAL | | | Neutrophils | performed at [facility];[address] | | LAB | | | | [address];[place] | | | | | | [address] | | | | + + + + + -+ | Bands | 0.6 (H)Comment: Testing | 0 - 0.2 K/uL | EXTERNAL | | | Manual | performed at [facility];[address] | | LAB | | | | [address];[place] | | | | | | [address] | | | | + + + + + -+ | Absolute | 2.8Comment: Testing | 1.0 - 3.9 K/uL | EXTERNAL | | | Lymphocytes | performed at [facility];[address] | | LAB | | | | [address];[place] | | | | | | [address] | | | | + + + + + -+ | Absolute | 0.8Comment: Testing | 0 - 0.8 K/uL | EXTERNAL | | | Monocytes | performed at [facility];[address] | | LAB | | | | [address];[place] | | | | | | [address] | | | | + + + + + -+ | RBC | 1+Comment: ANISOGIANT | | EXTERNAL | | | Morphology | PLATELETSTesting | | LAB | | | | performed at [facility];[address] | | | | | | [address];[place] | | | | | | [address] | | | | | | | | | | + + + + + -+ | Na | 138Comment: Testing | 135 - 143 | EXTERNAL | | | | performed at [facility];[address] | mmol/L | LAB | | | | [address];[place] | | | | | | [address] | | | | + + + + + -+ | K | 3.5Comment: SLT | 3.5 - 4.9 | EXTERNAL | | | | HEMOLYSISTesting | mmol/L | LAB | | | | performed at [facility];[address] | | | | | | [address];[place] | | | | | | [address] | | | | + + + + + -+ | Cl | 106Comment: Testing | 99 - 109 mmol/L | EXTERNAL | | | | performed at [facility];[address] | | LAB | | | | [address];[place] | | | | | | [address] | | | | + + + + + -+ | CO2 | 22 (L)Comment: Testing | 23 - 32 mmol/L | EXTERNAL | | | | performed at [facility];[address] | | LAB | | | | [address];[place] | | | | | | [address] | | | | + + + + + -+ | Anion Gap | 14Comment: Testing | 5 - 20 mmol/L | EXTERNAL | | | | performed at [facility];[address] | | LAB | | | | [address];[place] | | | | | | [address] | | | | + + + + + -+ | Glucose, | 109 (H)Comment: Testing | 65 - 99 mg/dL | EXTERNAL | | | Fasting | performed at [facility];[address] | | LAB | | | | [address];[place] | | | | | | [address] | | | | + + + + + -+ | BUN | 32 (H)Comment: Testing | 8 - 25 mg/dL | EXTERNAL | | | | performed at [facility];[address] | | LAB | | | | [address];[place] | | | | | | [address] | | | | + + + + + -+ | Creatinine | 1.16Comment: Testing | 0.70 - 1.30 | EXTERNAL | | | | performed at [facility];[address] | mg/dL | LAB | | | | [address];[place] | | | | | | [address] | | | | + + + + + -+ | BUN/Creatin | 28Comment: Testing | | EXTERNAL | | | ine Ratio | performed at [facility];[address] | | LAB | | | | [address];[place] | | | | | | [address] | | | | + + + + + -+ | Calcium | 9.6Comment: Testing | 8.5 - 10.2 | EXTERNAL | | | | performed at [facility];[address] | mg/dL | LAB | | | | [address];[place] | | | | | | [address] | | | | + + + + + -+ | Protein, | 8.2Comment: Testing | 6.3 - 8.2 g/dL | EXTERNAL | | | Total | performed at [facility];[address] | | LAB | | | | [address];[place] | | | | | | [address] | | | | + + + + + -+ | Albumin | 3.5 (L)Comment: Testing | 3.6 - 5.0 g/dL | EXTERNAL | | | | performed at [facility];[address] | | LAB | | | | [address];[place] | | | | | | [address] | | | | + + + + + -+ | Globulin | 4.6Comment: Testing | 1.3 - 4.9 g/dL | EXTERNAL | | | | performed at [facility];[address] | | LAB | | | | [address];[place] | | | | | | [address] | | | | + + + + + -+ | A/G Ratio | 0.8 (L)Comment: Testing | 1.0 - 2.4 | EXTERNAL | | | | performed at [facility];[address] | | LAB | | | | [address];[place] | | | | | | [address] | | | | + + + + + -+ | Bilirubin | 0.5Comment: Testing | 0.1 - 1.5 mg/dL | EXTERNAL | | | Total | performed at [facility];[address] | | LAB | | | | [address];[place] | | | | | | [address] | | | | + + + + + -+ | ALP, | 111Comment: Testing | 35 - 115 U/L | EXTERNAL | | | External | performed at [facility];[address] | | LAB | | | | [address];[place] | | | | | | [address] | | | | + + + + + -+ | AST | 27Comment: SLT | 10 - 45 U/L | EXTERNAL | | | | HEMOLYSISTesting | | LAB | | | | performed at [facility];[address] | | | | | | [address];[place] | | | | | | [address] | | | | + + + + + -+ | ALT | 23Comment: Testing | 10 - 65 U/L | EXTERNAL | | | | performed at [facility];[address] | | LAB | | | | [address];[place] | | | | | | [address] | | | | + + + [...] | | | | | | at [facility];[address] | | | [address];[place] [address] | | | | + + + + + -+ | CK, Total | 149Comment: Testing | 55 - 400 U/L | EXTERNAL | | | | performed at [facility];[address] | | LAB | | | | [address];[place] | | | | | | [address] | | | | + + + [...] | | | | | performed at [facility];[address] | | | | | | [address];[place] | | | | | | [address] | | | | + + + + + -+ | aPTT, | 24Comment: Testing | 23 - 32 seconds | EXTERNAL | | | Patient | performed at [facility];[address] | | LAB | | | | [address];[place] | | | | | | [address] | | | | + + + + + -+ | CK-MB | 0.6Comment: Testing | 0.5 - 3.6 ng/mL | EXTERNAL | | | | performed at [facility];[address] | | LAB | | | | [address];[place] | | | | | | [address] | | | | + + + [...] GROWTH | | | Testing performed at [facility], [address] | | | [place] [address] | | + + + + +---------+ [...]
--- OUTSIDE RECORDS SUMMARY | ~2020-01-30 | XMS | Encounter Summary ---
Demographics + + + | Address | [address] | | | [place] [address] | + + + | Home Phone | | + + + | Preferred Language | Unknown | + + + | Marital Status | | + + + | Caodaism Affiliation | 1013 | + + + | Race | Unknown | + + + | Ethnic Group | Unknown | + + + Author + + + | Author | [facility] | | | and [place] | + + + | Organization | [facility] | | [...] [place] | | | | | [address] | | + + + + + Care Team Providers + +------+ + | Care Environmental Marketer Name | Role | Phone | + [...] | | | [place] | [place] | | | | | [address] | [address] | | | | | [phone] | [phone] | | | | | | | [...] | + +--------+ + + + | CHARLEE SCREEN, QUANT, | Routin | 01/01/2015 | | Results for this | | REFLEX | e | 2:15 PM | | procedure are in the | | | | PDT | | results section. | + +--------+ + + + documented in this encounter Results CHARLEE Screen, Quant, Reflex (01/01/2015 2:15 PM PDT) + + + + + + | Component | Value | Ref Range | Performed | Pathologist | | | | | At | Signature | + + + + + + | Interpretat | POSITIVE (A)Comment: THE | | EXTERNAL | | | ion: | CHARLEE SCREEN IS POSITIVE | | LAB | | | | BY ENZYME IMMUNOASSAY. | | | | | | IF CLINICALLYINDICATED, | | | | | | FURTHER TESTING FOR | | | | | | SPECIFIC AUTOIMMUNE | | | | | | ANTIBODIES | | | | | | ISSUGGESTED.Testing | | | | | | performed at [facility], [address] | | | | | | [facility] | | | | | | [place] [address] | | | | + + + + + + | Result | 1.1 (H)Comment: Testing | U | EXTERNAL | | | | performed at [facility], [address] | | LAB | | | | [place] | | | | | | [place] [address] | | | | + + + [...]
--- OUTSIDE RECORDS SUMMARY | ~2020-01-30 | XMS | Encounter Summary ---
Demographics + + + | Address | [address] | | | [place] [address] | + + + | Home Phone | | + + + | Preferred Language | Unknown | + + + | Marital Status | | + + + | Oriental Orthodox Affiliation | 1013 | + + + | Race | Unknown | + + + | Ethnic Group | Unknown | + + + Author + + + | Author | [facility] | | | and [place] | + + + | Organization | [facility] | | | and [...] [place] | | | | | [address] | | + + + + + Care Team Providers + +------+ + | Care Informaticist Name | Role | Phone | + +------+ + | Allison Fairchild NP | PCP | | + +------+ + Reason for Referral Consultation (Urgent) +--------+ + + + + + | Status | Reason | Specialty | Diagnoses / | Referred By | Referred To | | | | | Procedures | Contact | Contact | +--------+ + + + + + | Denied | Specialty | Neurology | Diagnoses | Margoth Stevenson | | | Services | | Disoriented | MD Anival | Neurology | | | Required | | to place | [address] | [address] | | | | | Delusional | [address] | [address] | | | | | disorder | [address] | [place], [place] | | | | | ([facility]) | [place], [place] | [address] | | | | | | [address] | Phone: | | | | | | Phone: | [phone] | | | | | | [phone] | Fax: | | | | | | Fax: | [phone] | | | | | | [phone] | | +--------+ + + + + + Reason for Visit + + + | Reason | Comments | + + + | Follow-up | Patient is being seen today to follow up on abdominal incisions. | + + + Encounter Details +--------+---------+ + + + | Date | Type | Department | Care Team | Description | +--------+---------+ + + + | 10/06/ | Office | [facility] | Anival Stevenson MD | Thrombocytosis (HCC) | | 2020 | Visit | GENERAL SURGERY [address] | (Primary Dx); | | | | [address] | [address] [place], [place] | Chills without | | | | [place], [place] | [address] | fever; Night sweats; | | | | [address] | | Disoriented to | | | | [phone] | | place; Delusional | | | | | | disorder (HCC); | | | | | | Surgical follow-up | | | | | | care | +--------+---------+ + + + Social History [...] + documented in this encounter Progress Notes Anival Stevenson MD - 10/06/2019 1:30 PM PST Subjective Patient ID: Reza Cespedes is a 58 y.o. male. Follow-up (Patient is being seen today to follow up on abdominal incisions. ) HPI At Wade's last visit we were concerned because the wound looked red and his white blood ce ll count was elevated. Dramatic thrombocytosis was also noted suggesting more than the usua l shift that we would expect after his back surgery. Antibiotics were started once we recei ve the labs. Today patient's reports a lot of distress over worsening disorientation of the patient , paranoia, delusional behavior. This is become dramatically worse after surgery although t here was a progression in this direction preoperatively. Some of this could be related to a ntibiotics or smoldering Objective BP 122/84 | Pulse 84 | Ht 1.803 m (5' 11") | Wt 99.8 kg (220 lb) | SpO2 99% | BMI 30.6 8 kg/m Physical Exam Constitutional: Appearance: He is normal weight. Neurological: Mental Status: He is lethargic and disoriented. Psychiatric: Behavior: Behavior is cooperative. Wound(s) well approximated, nonreactive and dry. Wound looks much better. Less tender. Still some residual redness (erythema) at the upper pole no drainage. Assessment Our biggest concern is patient's mental health which has deteriorated over the course of year but taken a more dramatic shift since surgery. All his medications have been prescri bed outside the spectrum of his surgical care but I am concerned that his narcotic use is to o high. His Ativan is is probably too high. He does not appear toxic although that is anot her possibility. Some of the inflammatory response we see in the abdomen could be related to the preparation of the biologic mesh. This seems to be a more variable product to integrate if compared to my usual soft mesh. Plan Check lab work see what is going on with the white blood cell count and platelets. Patient does not have fevers but he has had night sweats for months. ADDENDUM: Ref Range & Units 3d ago (10/06/19) 2wk ago (09/21/19) 4wk ago (09/11/19) 1mo ago (09/09/19) 1mo ago (09/07/19) 1mo ago (08/29/19) 1mo ago (08/22/19) WBC 3.80 - 11.00 K/uL 11.44High 12.46High 8.72 10.82 14.21High 7.8 R RBC 4.20 - 5.70 M/uL 3.74Low 3.90Low 2.80Low 2.89Low 3.63Low Hemoglobin 13.2 - 17.0 g/dL 10.9Low 11.3Low 8.4Low 8.6Low 10.8Low 12.9 R Hematocrit 39.0 - 50.0 % 32.2Low 34.7Low 24.7Low 25.7Low 31.8Low MCV 80.0 - 100.0 fl 86.2 88.8 88.3 88.9 87.6 88.8 R 88.4 R MCH 27.0 - 34.0 pg 29.1 28.9 30.1 29.8 29.6 MCHC 32.0 - 35.5 g/dL 33.8 32.6 34.1 33.5 33.8 33 R 33 R RDW-SD 37 - 53 fl 47.7 48.6 50.8 51.6 52.1 Platelet Count 150 - 400 K/uL 612High 1,222High Panic CM 407High 345 380 Referred to outpatient neurology for help with deteriorating situation awareness and delusi onal behavior. They may also provide better guidance for pain management. Anival Stevenson MD 10/07/2019 documented in this encounter Plan of Treatment + + +--------+ + + | Name | Type | Priori | Associated Diagnoses | Order Schedule | | | | ty | | | + + +--------+ + + | Ambulatory Referral | Outpatient | Routin | Disoriented to | Ordered: 10/06/2019 | | to [facility] | Referral | e | place Delusional | | | | | | disorder (HCC) | | + + +--------+ + + documented as of this encounter Results Comprehensive Metabolic Panel (10/06/2019 2:24 PM PST) [...] | | | | | performed at [facility];[address] | | | | | | [facility] | | | | | | [facility];[place] [address] | | | | | | | | | | + + + + + + + + | Specimen | + + | Blood | + + + + + + + | Performing | Address | City/State/Zipcode | Phone Number | | Organization | | | | + + + + + | REFERENCE LAB | [facility] | [place] | [phone] | | [place] | [address] | [address] | | | LABORATORY | | | | + + + + + | REFERENCE LAB | [facility] | [place] | | | [place] | [address] | [address] | | | LABORATORY | | | | + + + + + CBC with Differential (10/06/2019 2:24 PM PST) [...] | | | Absolute | performed at [facility];[address] | K/uL | LAB | | | [address] | | [facility] | | | | [address];[place] [address] | | LABORATORY | | + + + + + + + + | Specimen | + + | Blood | + + + + + + + | Performing | Address | City/State/Zipcode | Phone Number | | Organization | | | | + + + + + | REFERENCE LAB | [address] | [place] | [phone] | | [place] | [address] | [address] | | | LABORATORY | | | | + + + + + | REFERENCE LAB | [address] [facility] [address] [facility] | [place] | | | [place] | Bl[address] | [address] | | | LABORATORY | | | | + + + + + documented in this encounter Visit Diagnoses + + | Diagnosis | + + | Thrombocytosis (HCC) - Primary Essential thrombocythemia | + + | Chills without fever Chills (without fever) | + + | Night sweats Generalized hyperhidrosis | + + | Disoriented to place | + + | Delusional disorder (HCC) | + + | Surgical follow-up care Follow-up examination, following unspecified surgery | + + documented in this encounter
--- OUTSIDE RECORDS SUMMARY | ~2020-01-30 | XMS | Encounter Summary ---
Demographics + + + | Address | [address] | | | [place] [address] | + + + | Home Phone [...] [place] | | | | | [address] | | + + + + + Care Team Providers + +------+ + | Care Grinder Operator Name | Role | Phone | + +------+ + | Allison Fairchild NP | PCP | | + +------+ + Encounter Details +--------+ + + + + | Date | Type | Department | Care Team | Description | +--------+ + + + + | 09/01/ | Orders Only | [facility] | [address] Busby MD | | | 2012 | | [address] | [address] | | | | | [place] | [place] | | | | | [address] | [address] | | | | | [phone] | [phone] | | | | | | | [...] + | CULTURE, BLOOD | SONALI | 09/01/2013 | | Results for this | | | | 3:35 PM | | procedure are in the | | | | PST | | results section. | + +--------+ + + + documented in this encounter Results Culture, Blood (09/01/2013 3:35 PM PST) + + | Specimen | + + | | + + + + + | Narrative | Performed At | + + + | Specimen Description BLOOD | EXTERNAL LAB | | Testing performed at [facility] | | | Health;[address];[place] [address] CULTURE | | | NO GROWTH 6 DAYS | | | Testing performed at [facility], [address], | | | [place] [address] REPORT STATUS | | | 09/07/2013 FINAL | | + + + + +---------+ + + | Performing | Address | City/State/Zipcode | Phone Number | | Organization | | | | + +---------+ + + | EXTERNAL LAB | | | | + +---------+ + + documented in this encounter Visit Diagnoses Not on filedocumented in this encounter"
--- OUTSIDE RECORDS SUMMARY | ~2020-01-30 | XMS | Encounter Summary ---
Demographics + + + | Address | [address] | | | [place] [address] | + + + | Home Phone | | + + + | Preferred Language | Unknown | + + + | Marital Status | | + + + | Yazidism Affiliation | 1013 | + + + | Race | Unknown | + + + | Ethnic Group | Unknown | + + + Author + + + | Author | [facility] | | | and [place]ana | + + + | Organization | [facility] | | | and [...] [place] | | | | | [address] | | + + + + + Care Team Providers + +------+ + | Care Fire Investigation Lieutenant Name | Role | Phone | + [...] [place] | | | | | [address] | [phone] | | | | | [phone] | [phone] | | | | | | | [...] EXTERNAL LAB | | Testing performed at [facility] | | | Health;[address];[place] [address] CULTURE | | | NO GROWTH 6 DAYS | | | Testing performed at [facility], [address], | | | [place] [address] REPORT STATUS | | | 10/09/2013 FINAL [...]
--- OUTSIDE RECORDS SUMMARY | ~2020-01-30 | XMS | Encounter Summary ---
Demographics + + + | Address | [address] | | | [place] [address] | + + + | Home Phone | | + + + | Preferred Language | Unknown | + + + | Marital Status | | + + + | Jewish Affiliation | 1013 | + + + | Race | Unknown | + + + | Ethnic Group | Unknown | + + + Author + + + | Author | [facility] | | | and [place] | + + + | Organization | [facility] | [...] [place] | | | | | [address] | | + + + + + Care Team Providers + +------+ + | Care Welder Production Line Gas Name | Role | Phone | + [...] | | | [place] | [place] | | | | | [address] | [address] | | | | | [phone] | [phone] | | | | | | | [...] + | C-REACTIVE PROTEIN | Routin | 10/03/2013 | | Results for this | | | e | 4:05 PM | | procedure are in the | | | | PST | | results section. | + +--------+ + + + documented in this encounter Results C-Reactive Protein (10/03/2013 4:05 PM PST) + + + + + + | Component | Value | Ref Range | Performed | Pathologist | | | | | At | Signature | + + + + + + | CRP | 1.5 (H)Comment: Testing | mg/dL | EXTERNAL | | | | performed at [facility] | | LAB | | | | Health;[address] | | | | | | [place] | | | | | | [address] | | | | + + + [...]
--- OUTSIDE RECORDS SUMMARY | ~2020-01-30 | XMS | Encounter Summary ---
Demographics + + + | Address | [address] | | | [place] [address] | + + + | Home Phone | | + + + | Preferred Language | Unknown | + + + | Marital Status | | + + + | Amish Affiliation | 1013 | + + + | Race | Unknown | + + + | Ethnic Group | Unknown | + + + Author + + + | Author | [facility] | | | and [place] | + + + | Organization | [facility] | [...] [place] | | | | | [address] | | + + + + + Care Team Providers + +------+ + | Care Lion Hunter Name | Role | Phone | + +------+ + | Allison Fairchild NP | PCP | | + +------+ + Encounter Details +--------+ + + + + | Date | Type | Department | Care Team | Description | +--------+ + + + + | 02/11/ | Episode | [facility] | Amy Winter | | | 2018 | Changes | GASTROENTEROLOGY | M, RN | | | | | [address] | | | | | | [address] [place], [place] | | | | | | [address] | | | | | | [phone] | | | +--------+ + + + [...]
--- OUTSIDE RECORDS SUMMARY | ~2020-01-30 | XMS | Encounter Summary ---
Demographics + + + | Address | [address] | | | [place] [address] | + + + | Home Phone | | + + + | Preferred Language | Unknown | + + + | Marital Status | | + + + | Church Affiliation | 1013 | + + + | Race | Unknown | + + + | Ethnic Group | Unknown | + + + Author + + + | Author | [facility] | | | and [place] | + + + | Organization | [facility] | | | and [place] [...] [place] | | | | | [address] | | + + + + + Care Team Providers + +------+ + | Care Regulatory Affairs Spec Name | Role | Phone | + +------+ + | Allison Fairchild NP | PCP | | + +------+ + Encounter Details +--------+ + + + + | Date | Type | Department | Care Team | Description | +--------+ + + + + | 12/13/ | Hospital | [facility] | Conversion | Renal artery | | 2019 | Encounter | [facility] | Transaction, | stenosis (HCC) | | | | ULTRASOUND [address] | Provider Unknown | | | | | [address] | [phone] | | | | | [place], [place] | | | | | | [address] | | | | | | [phone] | | | +--------+ + + + [...] + + documented as of this encounter Medications at Time of Discharge [...] HFA 108 | | | 0 | 09/25 | | | (90 Base) MCG/ACT | [...] +---------+ + + | magnesium oxide | | | 0 | 07/23/20 | | | (MAG-OX) 400 mg | | | | 18 | 9 | | tablet | | | | | | + + + +---------+ + + | omeprazole | Take 1 capsule by | 90 | 3 | 09/16/19 | | | (PRILOSEC) 20 mg | mouth every morning | capsule | | 19 | 9 | | capsuleIndications: | (before breakfast). | [...] + + + +---------+ + + | promethazine | Take 25 mg by mouth | | 0 | | | | (PHENERGAN) 25 mg | every 6 hours as | | | | 9 | | tablet | needed. | | | | | + + + +---------+ + + documented as of this encounter Plan of Treatment Not on filedocumented as of this encounter Procedures + +--------+ + + + | Procedure Name | Priori | Date/Time | Associated Diagnosis | Comments | | | ty | | | | + +--------+ + + + | US ABDOMEN LIMITED | Routin | 12/13/2018 | | Results for this | | | e | 10:40 AM | | procedure are in the | | | | PDT | | results section. | + +--------+ + + + documented in this encounter Results US Abdomen Limited (12/13/2018 10:40 AM PDT) + + | Specimen | + + | | + + + + + | Impressions | Performed At | + + + | Limited ultrasound of the abdomen, as described above. Signed by: | | | Claribel Hood, Fer Sign Date/Time: 12/13/2018 4:15 PM | | + + + + + + | Narrative | Performed At | + + + | ULTRASOUND ABDOMEN, LIMITED CLINICAL INFORMATION: History of renal | | | artery stenosis. Abdominal pain concerning for celiac disease. | | | COMPARISON: MRI [facility]CP LIVER WO CONTRAST (01/22/2018); ULTRASOUND | | | ABDOMEN LIMITED FOLLOWUP - [place] (01/22/2018); CT ABDOMEN PELVIS W | | | CONTRAST (01/21/2018); PROCEDURE: Evaluation of the gallbladder, if | | | present, common bile duct, liver, and right kidney. FINDINGS: | | | Anatomy is poorly seen due to large keloid the patient's abdominal | | | wall. Waveforms and velocities of the proximal aorta and superior | | | mesenteric artery appear normal. Celiac trunk was not visualized. | | + + + + + | Procedure Note | + + | Ethan, Rad Conversion - 04/19/2019 8:25 PM PDT ULTRASOUND ABDOMEN, LIMITED | | CLINICAL INFORMATION: | | History of renal artery stenosis. Abdominal pain concerning for celiac | | disease. | | COMPARISON: | | MRI MRCP LIVER WO CONTRAST (01/22/2018); ULTRASOUND ABDOMEN LIMITED | | FOLLOWUP - [place] (01/22/2018); CT ABDOMEN PELVIS W CONTRAST | | (01/21/2018); | | PROCEDURE: | | Evaluation of the gallbladder, if present, common bile duct, liver, and | | right kidney. | | FINDINGS: | | Anatomy is poorly seen due to large keloid the patient's abdominal | | wall. Waveforms and velocities of the proximal aorta and superior | | mesenteric artery appear normal. Celiac trunk was not visualized. | | IMPRESSION: | | Limited ultrasound of the abdomen, as described above. | | Signed by: Claribel Hood Chet | | Sign Date/Time: 12/13/2018 4:15 PM | + + documented in this encounter Visit Diagnoses + + | Diagnosis | + + | Renal artery stenosis (HCC) Atherosclerosis of renal artery | + + documented in this encounter"
--- OUTSIDE RECORDS SUMMARY | ~2020-01-30 | XMS | Encounter Summary ---
Demographics + + + | Address | [address] | | | [place] [address] | + + + | Home Phone | | + + + | Preferred Language | Unknown | + + + | Marital Status | | + + + | Holiness Affiliation | 1013 | + + + | Race | Unknown | + + + | Ethnic Group | Unknown | + + + Author + + + | Author | [facility] | | | and [place] | + + + | Organization | [facility] | | | and [place] | + + + | Address | Unknown | + + + | Phone | Unavailable | + + + Support + + + + + | Name | Relationship | Address | Phone | + + + + + | Teodora Cespedes | ECON | [address] | | | | | [facility] [place] | | | | | [address] | | + + + + + Care Team Providers + +------+ + | Care Registered Nurse Post Partum Name | Role | Phone | + +------+ + PCP | Unavailable | + +------+ + Encounter Details +--------+ + + + + | Date | Type | Department | Care Team | Description | +--------+ + + + + | 08/20/ | [facility] | [facility] | Taniya Velásquez | | | 2012 | Encounter | [facility] | DO Paul Ovalles | | | | | CENTER [address] | [place] | | | | | [place] | [address] | | | | | [address] | | | | | | [phone] | | | +--------+ + + + [...] + + | MAGNESIUM | Routin | 08/20/2013 | | Results for this | | | e | 4:47 PM | | procedure are in the | | | | PST | | results section. | + +--------+ + + + | PTT | Routin | 08/20/2013 | | Results for this | | | e | 4:19 PM | | procedure are in the | | | | PST | | results section. | + +--------+ + + + | PROTIME INR | Routin | 08/20/2013 | | Results for this | | | e | 4:19 PM | | procedure are in the | | | | PST | | results section. | + +--------+ + + + | CBC WITH | Routin | 08/20/2013 | | Results for this | | DIFFERENTIAL | e | 3:56 PM | | procedure are in the | | | | PST | | results section. | + +--------+ + + + | LIPASE | Routin | 08/20/2013 | | Results for this | | | e | 3:56 PM | | procedure are in the | | | | PST | | results section. | + +--------+ + + + | COMPREHENSIVE | Routin | 08/20/2013 | | Results for this | | METABOLIC PANEL | e | 3:56 PM | | procedure are in the | | | | PST | | results section. | + +--------+ + + + documented in this encounter Results Magnesium (08/20/2013 4:47 PM PST) + +---------+ + + + | Component | Value | Ref Range | Performed | Pathologist | | | | | At | Signature | + +---------+ + + + | Magnesium | 1.7 (L) | 1.8 - 2.5 mg/dL | [facility] | | | | | | [facility] | | | | | | MEDICAL | | | | | | CENTER - | | | | | | LABORATORY | | + +---------+ + + + + + | Specimen | + + | | + + + + + + + | Performing | Address | City/State/Zipcode | Phone Number | | Organization | | | | + + + + + | [facility] | [address] | [place], [place] | [phone] | | [facility] | | [address] | | | - LABORATORY | | | | + + + + + | [facility] | [address] | [place], [place] | | | [facility] | | [id number] | | | - LABORATORY | | | | + + + + + Protime INR (08/20/2013 4:19 PM PST) + + + + + + | Component | Value | Ref Range | Performed | Pathologist | | | | | At | Signature | + + + + + + | Prothrombin | 15.2 (H) | 11.3 - 13.9 | [facility] | | | Time | | seconds | [facility] | | | | | | MEDICAL | | | | | | CENTER - | | | | | | LABORATORY | | + + + + + + | PATIENT | 13.1 | seconds | [facility] | | | NORMAL MEAN | | | [facility] | | | | | | MEDICAL | | | | | | CENTER - | | | | | | LABORATORY | | + + + + + + | INR | 1.2 (H)Comment: INR: | 0.9 - 1.1 | [facility] | | | | USUAL ORAL | | [facility] | | | | ANTICOAGULATION RANGE | | MEDICAL | | | | 2.0-3.0 | | CENTER - | | | | HIGH LEVEL ORAL | | LABORATORY | | | | ANTICOAGULATION RANGE | | | | | | 2.5-3.5 | | | | + + + + + + + + | Specimen | + + | | + + + + + + + | Performing | Address | City/State/Zipcode | Phone Number | | Organization | | | | + + + + + | [facility] | [address] | [place] | [phone] | | [facility] | | [address] | | | - LABORATORY | | | | + + + + + | [facility] | [address] | [place] | | | [facility] | | [address] | | | - LABORATORY | | | | + + + + + PTT (08/20/2013 4:19 PM PST) + + + + + + | Component | Value | Ref Range | Performed | Pathologist | | | | | At | Signature | + + + + + + | aPTT | 34.3Comment: Normal | 22.1 - 36.0 | [facility] | | | | Patient Mean Value: 29.0 | seconds | [facility] | | | | seconds | | MEDICAL | | | | | | CENTER - | | | | | | LABORATORY | | + + + + + + + + | Specimen | + + | | + + + + + + + | Performing | Address | City/State/Zipcode | Phone Number | | Organization | | | | + + + + + | [facility] | [address] | [place], [place] | [phone] | | [facility] | | [address] | | | - LABORATORY | | | | + + + + + | [facility] | [address] | [place], [place] | | | [facility] | | [address], [facility] | | | - LABORATORY | | | | + + + + + CBC with Differential (08/20/2013 3:56 PM PST) + + + + + + | Component | Value | Ref Range | Performed | Pathologist | | | | | At | Signature | + + + + + + | MANUAL | NO | | [facility] | | | DIFFERENTIA | | | [facility] | | | L ? | | | MEDICAL | | | | | | CENTER - | | | | | | LABORATORY | | + + + + + + | WBC | 13.6 (H) | 4.0 - 11.0 K/uL | [facility] | | | | | | [facility] | | | | | | MEDICAL | | | | | | CENTER - | | | | | | LABORATORY | | + + + + + + | RBC | 2.97 (L) | 4.30 - 5.70 | [facility] | | | | | M/uL | [facility] | | | | | | MEDICAL | | | | | | CENTER - | | | | | | LABORATORY | | + + + + + + | Hemoglobin | 8.5 (L) | 13.5 - 18.0 | [facility] | | | | | gm/dL | [facility] | | | | | | MEDICAL | | | | | | CENTER - | | | | | | LABORATORY | | + + + + + + | Hematocrit | 25.9 (L) | 40.0 - 51.0 % | [facility] | | | | | | [facility] | | | | | | MEDICAL | | | | | | CENTER - | | | | | | LABORATORY | | + + + + + + | MCV | 87.2 | 83.0 - 101.0 fL | [facility] | | | | | | [facility] | | | | | | MEDICAL | | | | | | CENTER - | | | | | | LABORATORY | | + + + + + + | MCH | 28.5 | 28.0 - 35.0 pg | [facility] | | | | | | [facility] | | | | | | MEDICAL | | | | | | CENTER - | | | | | | LABORATORY | | + + + + + + | MCHC | 32.7 | 32.0 - 36.0 | [facility] | | | | | g/dL | [facility] | | | | | | MEDICAL | | | | | | CENTER - | | | | | | LABORATORY | | + + + + + + | RDW-CV | 18.8 (H) | <15.0 % | [facility] | | | | | | [facility] | | | | | | MEDICAL | | | | | | CENTER - | | | | | | LABORATORY | | + + + + + + | Platelet | 891 (H) | 140 - 440 K/uL | [facility] | | | Count | | | [facility] | | | | | | MEDICAL | | | | | | CENTER - | | | | | | LABORATORY | | + + + + + + | % | 82.4 (H) | 45 - 75 % | [facility] | | | Neutrophils | | | [facility] | | | | | | MEDICAL | | | | | | CENTER - | | | | | | LABORATORY | | + + + + + + | % | 9.5 (L) | 20 - 45 % | [facility] | | | Lymphocytes | | | [facility] | | | | | | MEDICAL | | | | | | CENTER - | | | | | | LABORATORY | | + + + + + + | % Monocytes | 6.6 | 4 - 12 % | [facility] | | | | | | [facility] | | | | | | MEDICAL | | | | | | CENTER - | | | | | | LABORATORY | | + + + + + + | % | 0.8 | 0 - 5 % | [facility] | | | Eosinophils | | | [facility] | | | | | | MEDICAL | | | | | | CENTER - | | | | | | LABORATORY | | + + + + + + | % Basophils | 0.7 | 0 - 1 % | [facility] | | | | | | [facility] | | | | | | MEDICAL | | | | | | CENTER - | | | | | | LABORATORY | | + + + + + + | Absolute | 11.2 (H) | 1.5 - 6.6 K/uL | [facility] | | | Neutrophils | | | [facility] | | | | | | MEDICAL | | | | | | CENTER - | | | | | | LABORATORY | | + + + + + + | Absolute | 1.3 | 0.6 - 3.2 K/uL | [facility] | | | Lymphocytes | | | [facility] | | | | | | MEDICAL | | | | | | CENTER - | | | | | | LABORATORY | | + + + + + + | Absolute | 0.9 | 0.0 - 1.0 K/uL | [facility] | | | Monocytes | | | [facility] | | | | | | MEDICAL | | | | | | CENTER - | | | | | | LABORATORY | | + + + + + + | Absolute | 0.1 | 0.0 - 0.4 K/uL | [facility] | | | Eosinophils | | | [facility] | | | | | | MEDICAL | | | | | | CENTER - | | | | | | LABORATORY | | + + + + + + | Absolute | 0.1 | 0.0 - 0.1 K/uL | [facility] | | | Basophils | | | [facility] | | | | | | MEDICAL | | | | | | CENTER - | | | | | | LABORATORY | | + + + + + + + + | Specimen | + + | | + + + + + + + | Performing | Address | City/State/Zipcode | Phone Number | | Organization | | | | + + + + + | [facility] | [address] | [place] | [phone] | | [facility] | | [address] | | | - LABORATORY | | | | + + + + + | [facility] | [address] | [place] | | | [facility] | | [address] | | | - LABORATORY | | | | + + + + + Comprehensive Metabolic Panel (08/20/2013 3:56 PM PST) + + + + + + | Component | Value | Ref Range | Performed | Pathologist | | | | | At | Signature | + + + + + + | Glucose | 102 | 70 - 109 mg/dL | [facility] | | | | | | [facility] | | | | | | MEDICAL | | | | | | CENTER - | | | | | | LABORATORY | | + + + + + + | Calcium | 7.9 (L) | 8.3 - 10.5 | [facility] | | | | | mg/dL | [facility] | | | | | | MEDICAL | | | | | | CENTER - | | | | | | LABORATORY | | + + + + + + | Alkaline | 86 | 40 - 110 IU/L | [facility] | | | Phosphatase | | | [facility] | | | | | | MEDICAL | | | | | | CENTER - | | | | | | LABORATORY | | + + + + + + | AST | 38 | 10 - 42 IU/L | [facility] | | | | | | [facility] | | | | | | MEDICAL | | | | | | CENTER - | | | | | | LABORATORY | | + + + + + + | ALT | 17 | 6 - 45 IU/L | [facility] | | | | | | [facility] | | | | | | MEDICAL | | | | | | CENTER - | | | | | | LABORATORY | | + + + + + + | Bilirubin | 0.5 | 0.2 - 1.0 mg/dL | [facility] | | | Total | | | [facility] | | | | | | MEDICAL | | | | | | CENTER - | | | | | | LABORATORY | | + + + + + + | Total | 5.5 (L) | 6.0 - 7.8 gm/dL | [facility] | | | Protein | | | [facility] | | | | | | MEDICAL | | | | | | CENTER - | | | | | | LABORATORY | | + + + + + + | Albumin | 2.2 (L) | 3.2 - 5.0 gm/dL | [facility] | | | | | | [facility] | | | | | | MEDICAL | | | | | | CENTER - | | | | | | LABORATORY | | + + + + + + | BUN | 7 | 7 - 18 mg/dL | [facility] | | | | | | [facility] | | | | | | [facility]ICAL | | | | | | CENTER - | | | | | | LABORATORY | | + + + + + + | Creatinine | 0.57 (L) | 0.60 - 1.30 | [facility] | | | | | mg/dL | [facility] | | | | | | MEDICAL | | | | | | CENTER - | | | | | | LABORATORY | | + + + + + + | Estimated | >60Comment: For | >60 mL/min/A | [facility] | | | GFR | -Americans, | | [facility] | | | | please multiply the | | MEDICAL | | | | result by 1.210 | | CENTER - | | | | This is an estimated | | LABORATORY | | | | GFR and is based on a | | | | | | standard adult | | | | | | body mass (A=1.73m2) and | | | | | | serum creatinine | | | | + + + + + + | BUN/Creatin | 12.3 | 12 - 20 | [facility] | | | ine Ratio | | | [facility] | | | | | | MEDICAL | | | | | | CENTER - | | | | | | LABORATORY | | + + + + + + | Na | 135 (L) | 136 - 149 mEq/L | [facility] | | | | | | [facility] | | | | | | MEDICAL | | | | | | CENTER - | | | | | | LABORATORY | | + + + + + + | K | 2.9 (L)Comment: LOW | 3.5 - 5.1 mEq/l | [facility] | | | | POTASSIUM OFTEN | | [facility] | | | | [facility] WITH LOW | | MEDICAL | | | | MAGNESIUM. IF THIS MAY | | CENTER - | | | | BE RELEVANT IN THIS | | LABORATORY | | | | CASE, PLEASE ORDER | | | | | | MAGNESIUM LEVEL. | | | | + + + + + + | Cl | 103 | 98 - 109 mEq/l | [facility] | | | | | | [facility] | | | | | | MEDICAL | | | | | | CENTER - | | | | | | LABORATORY | | + + + + + + | CO2 | 24 | 24 - 31 mEq/L | [facility] | | | | | | [facility] | | | | | | MEDICAL | | | | | | CENTER - | | | | | | LABORATORY | | + + + + + + | Anion Gap | 10.9 | 6.0 - 17.0 | [facility] | | | | | | [facility] | | | | | | MEDICAL | | | | | | CENTER - | | | | | | LABORATORY | | + + + + + + + + | Specimen | + + | | + + + + + + + | Performing | Address | City/State/Zipcode | Phone Number | | Organization | | | | + + + + + | [facility] | [address] | [place] | [phone] | | [facility] | | [address] | | | - LABORATORY | | | | + + + + + | [facility] | [address] | [place] | | | [facility] | | [address], [facility] | | | - LABORATORY | | | | + + + + + Lipase (08/20/2013 3:56 PM PST) + +-------+ + + + | Component | Value | Ref Range | Performed | Pathologist | | | | | At | Signature | + +-------+ + + + | Lipase | 60 | 0 - 60 U/L | [facility] | | | | | | [facility] | | | | | | MEDICAL | | | | | | CENTER - | | | | | | LABORATORY | | + +-------+ + + + + + | Specimen | + + | | + + + + + + + | Performing | Address | City/State/Zipcode | Phone Number | | Organization | | | | + + + + + | [facility] | [address] | [place] | [phone] | | [facility] | | [address] | | | - LABORATORY | | | | + + + + + | [facility] | [address] | [place], [place] | | | [facility] | | [id number] | | | - LABORATORY | | | | + + + + + documented in this encounter Visit Diagnoses Not on filedocumented in this encounter"
--- OUTSIDE RECORDS SUMMARY | ~2020-01-30 | XMS | Encounter Summary ---
Demographics + + + | Address | [address] | | | [place] [address] | + + + | Home Phone | | + + + | Preferred Language | Unknown | + + + | Marital Status | | + + + | Scientologist Affiliation | 1013 | + + + | Race | Unknown | + + + | Ethnic Group | Unknown | + + + Author + + + | Author | [facility] | | | and [place] | + + + | Organization | [facility] | | | and [...] [place] | | | | | [address] | | + + + + + Care Team Providers + +------+ + | Care Metal Painter Name | Role | Phone | + +------+ + | Allison Fairchild NP | PCP | | + +------+ + Reason for Visit + + + | Reason | Comments | + + + | Post-op Exam | Patient is being seen today for two weeks post-op repair of | | | complex abdominal wall hernia with biologic mesh surgery done | | | 09/06/19. | + + + Encounter Details +--------+---------+ + + + | Date | Type | Department | Care Team | Description | +--------+---------+ + + + | 09/21/ | Office | [facility] | Anival Stevenson MD | Chills (without | | 2020 | Visit | GENERAL SURGERY [address] | [address] | fever) (Primary Dx); | | | | [address] | [address] [place], [place] | Erythema; Surgical | | | | [place], [place] | [address] | follow-up care | | | | [address] | | | | | | [phone] | | | +--------+---------+ + + + [...] + + + | Blood Pressure | 129/101 | 09/21/2019 10:11 AM | | | | | PST | | + + + + + | Pulse | 105 | 09/21/2019 10:11 AM | | | | | PST | | + + + + + | Temperature | 36.1 C (97 F) | 09/21/2019 10:11 AM | | | | | PST | | + + + + + | Respiratory Rate | - | - | | + + + + + | Oxygen Saturation | 97% | 09/21/2019 10:11 AM | | | | | PST | | + + + + + | Inhaled Oxygen | - | - | | | Concentration | | | | + + + + + | Weight | 99.8 kg (220 lb) | 09/21/2019 10:11 AM | | | | | PST | | + + + + + | Height | 180.3 cm (5' 11") | 09/21/2019 10:11 AM | | | | | PST | | + + + + + | Body Mass Index | 30.68 | 09/21/2019 10:11 AM | | | | | PST | | + + + + + documented in this encounter Progress Notes Anival Stevenson MD - 09/21/2019 10:15 AM PST Subjective Patient ID: Reza Cespedes is a 58 y.o. male. Post-op Exam (Patient is being seen today for two weeks post-op repair of complex abdominal wall hernia with biologic mesh surgery done 09/06/19. 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 Over the last few days patient has deteriorated slightly. He still feels better than he did preoperatively but he has a poor appetite. There is a history of c hills and diaphoresis without fever. There is new redness in the upper part of the wound an d then a separate island of erythema at the umbilicus. No drainage from the incision. Objective BP (!) 129/101 | Pulse 105 | Temp 36.1 C (97 F) (Oral) | Ht 1.803 m (5' 11") | Wt 9 9.8 kg (220 lb) | SpO2 97% | BMI 30.68 kg/m Physical Exam Vitals signs reviewed. Constitutional: General: He is not in acute distress. Appearance: He is not ill-appearing. HENT: Mouth/Throat: Pharynx: Oropharynx is clear. No oropharyngeal exudate or posterior oropharyngeal erythe ma. Comments: No obvious thrush. Eyes: Pupils: Pupils are equal, round, and reactive to light. Pulmonary: Effort: Pulmonary effort is normal. Abdominal: General: Abdomen is flat. Bowel sounds are normal. Neurological: General: No focal deficit present. Mental Status: He is alert. Mental status is at baseline. Psychiatric: Mood and Affect: Mood normal. Behavior: Behavior normal. Thought Content: Thought content normal. Assessment Physical examination is suspicious for postoperative wound infection. This would not be a big surprise. Patient did receive a long course of preoperative antibiotics which was never going to resolve the problem but did improve his overall status. He received additional do ses of IV antibiotics postoperatively but is at risk for fungal overgrowth. He did receive antifungals during his hospital stay. He was not discharged on any antibiotics or antifunga ls. I examined his throat for thrush but did not see any. This might explain his chest discomf ort with eating. This is affected his ability to eat. Appetite is poor. Plan I am ordering CBC and a UA (patient reports dark, smelly urine occasionally) Empiric Diflucan 100 mg p.o. once a day for 5 days Wound was marked and instructions given for watching for spread of the inflammation without fading. Any fever would be justification to start more aggressive antibiotics. We expect to have CBC results later today. Cytosis would justify antibiotics in my mind. Follow-up in 1 to 2 weeks. Must talk to the patient by phone within the next 48 hours. Anival Stevenson MD 09/21/2019 documented in this encounter Plan of Treatment Not on filedocumented as of this encounter Results CBC no Differential (09/21/2019 11:18 AM PST) + + + + + + | Component | Value | Ref Range | Performed | Pathologist | | | | | At | Signature | + + + + + + | WBC | 12.46 (H) | 3.80 - 11.00 | REFERENCE | | | | | K/uL | LAB | | | | | | [facility] | | | | | | LABORATORY | | + + + + + + | RBC | 3.90 (L) | 4.20 - 5.70 | REFERENCE | | | | | M/uL | LAB | | | | | | [facility] | | | | | | LABORATORY | | + + + + + + | Hemoglobin | 11.3 (L) | 13.2 - 17.0 | REFERENCE | | | | | g/dL | LAB | | | | | | [facility] | | | | | | LABORATORY | | + + + + + + | Hematocrit | 34.7 (L) | 39.0 - 50.0 % | REFERENCE | | | | | | LAB | | | | | | [facility] | | | | | | LABORAT[facility] | | + + + + + + | MCV | 88.8 | 80.0 - 100.0 fl | REFERENCE | | | | | | LAB | | | | | | [facility] | | | | | | LABORATORY | | + + + + + + | MCH | 28.9 | 27.0 - 34.0 pg | REFERENCE | | | | | | LAB | | | | | | [facility] | | | | | | LABORAT[facility] | | + + + + + + | MCHC | 32.6 | 32.0 - 35.5 | REFERENCE | | | | | g/dL | LAB | | | | | | [facility] | | | | | | LABORATORY | | + + + + + + | RDW-SD | 48.6 | 37 - 53 fl | REFERENCE | | | | | | LAB | | | | | | [facility] | | | | | | LABORATORY | | + + + + + + | Platelet | 1,222 ()Comment: | 150 - 400 K/uL | REFERENCE | | | Count | RESULT VERIFIED | | LAB | | | | | | [facility] | | | | | | LABORAT[facility] | | + + + + + + | MPV | 7.4Comment: Testing | fl | REFERENCE | | | | performed at [facility];[address] | | LAB | | | | [place] | | [facility] | | | | [address];[place] [address] | | LABORATORY | | + + + + + + + + | Specimen | + + | Blood | + + + + + + + | Performing | Address | City/State/Zipcode | Phone Number | | Organization | | | | + + + + + | REFERENCE LAB | [address] | [place] | [phone] | | [facility] | Blvd. | [address] | | | LABORATORY | | | | + + + + + | REFERENCE LAB | [address] | [place] | | | [facility] | Blvd. | [address] | | | LABORATORY | | | | + + + + + Urinalysis with Microscopic if Indicated (09/21/2019 11:18 AM PST) + + + + + + | Component | Value | Ref Range | Performed | Pathologist | | | | | At | Signature | + + + + + + | Color, UA | ROGELIO | | REFERENCE | | | | | | LAB | | | | | | [facility] | | | | | | LABORATORY | | + + + + + + | Clarity, UA | CLEAR | | REFERENCE | | | | | | LAB | | | | | | [facility] | | | | | | LABORATORY | | + + + + + + | Specific | 1.044 (H) | 1.002 - 1.030 | REFERENCE | | | [place], | | | LAB | | | Urine | | | [facility] | | | | | | LABORATORY | | + + + + + + | Leukocyte | TRACE (A)Comment: | NEG | REFERENCE | | | esterase, | | | LAB | | | UA | | | [facility] | | | | | | LABORATORY | | + + + + + + | Nitrite, UA | NEGATIVE | NEG | REFERENCE | | | | | | LAB | | | | | | [facility] | | | | | | LABORATORY | | + + + + + + | Urobilinoge | <1.6 | <1.6 mg/dL | REFERENCE | | | n, Ur | | | LAB | | | | | | [facility] | | | | | | LABORATORY | | + + + + + + | Protein, | 30 (A) | NEG mg/dL | REFERENCE | | | Urine | | | LAB | | | (mg/dL) | | | [facility] | | | | | | LABORATORY | | + + + + + + | pH, Urine | 5.0 | 5.0 - 8.0 | REFERENCE | | | | | | LAB | | | | | | [facility] | | | | | | LABORATORY | | + + + + + + | Blood, UA | NEGATIVE | NEG | REFERENCE | | | | | | LAB | | | | | | [facility] | | | | | | LABORATORY | | + + + + + + | Ketones, UA | NEGATIVE | NEG mg/dL | REFERENCE | | | | | | LAB | | | | | | [facility] | | | | | | LABORATORY | | + + + + + + | Bilirubin, | MODERATE (A) | NEG | REFERENCE | | | UA | | | LAB | | | | | | [facility] | | | | | | LABORATORY | | + + + + + + | Glucose, Ur | NEGATIVE | NEG mg/dL | REFERENCE | | | | | | LAB | | | | | | [facility] | | | | | | LABORATORY | | + + + + + + + + | Specimen | + + | Urine | + + + + + + + | Performing | Address | City/State/Zipcode | Phone Number | | Organization | | | | + + + + + | REFERENCE LAB | [address] [facility] | [place] | [phone] | | [facility] | Bl[address]. | [address] | | | LABORATORY | | | | + + + + + | REFERENCE LAB | [address] [place] [address] | [place] | | | [facility] | Blvd. | [address] | | | LABORATORY | | | | + + + + + documented in this encounter Visit Diagnoses + + | Diagnosis | + + | Chills (without fever) - Primary | + + | Erythema Unspecified erythematous condition | + + | Surgical follow-up care Follow-up examination, following unspecified surgery | + + documented in this encounter
--- OUTSIDE RECORDS SUMMARY | ~2020-01-30 | XMS | Encounter Summary ---
Demographics + + + | Address | [address] | | | [place] [address] | + + + | Home Phone [...] + | Author | [facility] | | | and [place] | + + + | Organization | [facility] | | | and [place] [...] [place] | | | | | [address] | | + + + + + Care Team Providers + +------+ + | Care Senior Product Designer Name | Role | Phone | + +------+ + | Allison Fairchild NP | PCP | | + +------+ + Reason for Visit +---------+ + | Reason | Comments | +---------+ + | Results | | +---------+ + Encounter Details +--------+ + + + + | Date | Type | Department | Care Team | Description | +--------+ + + + + | 10/11/ | Telephone | [facility] | Anival Stevenson MD | Results | | 2020 | | GENERAL SURGERY [address] | [address] | | | | | [address] | [address] [place], [place] | | | | | [place], [place] | [address] | | | | | [address] | | | | | | [phone] | | | +--------+ + + + [...]
--- OUTSIDE RECORDS SUMMARY | ~2020-01-30 | XMS | Encounter Summary ---
Demographics + + + | Address | [address] | | | [place] [address] | + + + | Home Phone | | + + + | Preferred Language | Unknown | + + + | Marital Status | | + + + | Gnosticism Affiliation | 1013 | + + + | Race | Unknown | + + + | Ethnic Group | Unknown | + + + Author + + + | Author | [facility] | | | and [place] | + + + | Organization | [facility] | | | and [place] [...] [place] | | | | | [address] | | + + + + + Care Team Providers + +------+ + | Care Dry Dip Worker Name | Role | Phone | + [...] [place] | | | | | [address] | [address] | | | | | [phone] | [phone] | | | | | | | [...] + + + | CULTURE, URINE | SONALI | 10/03/2013 | | Results for this | | | | 5:30 PM | | procedure are in the | | | | PST | | results section. | + +--------+ + + + documented in this encounter Results Culture, Urine (10/03/2013 5:30 PM PST) + + | Specimen | + + | | + + + + + | Narrative | Performed At | + + + | Specimen Description URINE, COLLECTION NOT | EXTERNAL LAB | | GIVEN Testing | | | performed at [email or web address];[address];[place] [address] CULTURE | | | NO GROWTH | | | Testing performed at [facility], [address] | | | [place] [address] REPORT STATUS | | | 10/04/2013 FINAL | | + + + + +---------+ + + | Performing | Address | City/State/Zipcode | Phone Number | | Organization | | | | + +---------+ + + | EXTERNAL LAB | | | | + +---------+ + + documented in this encounter Visit Diagnoses Not on filedocumented in this encounter"
--- OUTSIDE RECORDS SUMMARY | ~2020-01-30 | XMS | Encounter Summary ---
Demographics + + + | Address | [address] | | | [place] [address] | + + + | Home Phone | | + + + | Preferred Language | Unknown | + + + | Marital Status | | + + + | Shinto Affiliation | 1013 | + + + | Race | Unknown | + + + | Ethnic Group | Unknown | + + + Author + + + | Author | [facility] | | | and [place] | + + + | Organization | [facility] | | | and [place] | [...] [place] | | | | | [address] | | + + + + + Care Team Providers + +------+ + | Care Director Of Analytical Development Name | Role | Phone | + [...] | | | | | | | Abnormal | | | | | | | findings on | | | | | | | diagnostic | | | | | | | imaging of | | | | | | | other | | | | | | | abdominal | | | | | | | regions, | | | | | | | including | | | | | | | retroperiton | | | | | | | eum | | | | | | | Calculus of | | | | | | | bile duct | | | | | | | without | | | | | | | cholangitis | | | | | | | or | | | | | | | cholecystiti | | | | | | | s without | | | | | | | obstruction | | | | | | | Abnormal | | | | | | | abdominal CT | | | | | | | scan | | | | | | | (R93.5), | | | | | | | Common bile | | | | | | | duct stone | | | | | | | (K80.50) | | | | | | | F13.20 benzo | | | | | | | use F11.20 | | | | | | | opioid use | | | | | | | Procedures | | | | | | | RI | | | | | | | ANESTHESIA | | | | | | | UPPER GI | | | | | | | ENDOSCOPIC | | | | | | | PX ERCP RI | | | | | | | ERCP DX | | | | | | | COLLECTION | | | | | | | SPECIMEN | | | | | | | BRUSHING/WAS | | | | | | | [place] ERCP | | | +--------+--------+ + + + + Encounter Details +--------+ + + + + | Date | Type | Department | Care Team | Description | +--------+ + + + + | 02/12/ | Anesthesia | [facility] | Shyam Peña | | | 2018 | Event | [facility] | MD Greg [address] | | | | [address] | [address] [place] | | | | | [place], [place] | [place] [address] | | | | | [address] | [phone] | | | | | [phone] | | | +--------+ + + + + Anesthesia Record + + + + + | Procedure Name | Responsible | Anesthesia Start | Anesthesia Stop Time | | | Anesthesiologist | Time | | + + + + + | ERCP (N/A Mouth) | Shyam Peña, | 02/12/18 1116 | 02/12/18 1142 | | | MD | | | + + + + + +----+---+ + + | Da | T | Event | Comment | | te | i | | | | | m | | | | | e | | | +----+---+ + + | 06 | 0 | | | | /0 | 9 | | | | 8/ | 3 | | | | 20 | 7 | | | | 18 | | | | +----+---+ + + | | 1 | An Checkout | Pre-use anesthesia machine/equipment checkout. | | | 1 | | | | | 1 | | | | | 5 | | | +----+---+ + + | | 1 | An Start | Reassessment prior to anesthesia induction/procedure. | | | 1 | | | | | 1 | | | | | 6 | | | +----+---+ + + | | 1 | AN | Per surgeon request | | | 1 | Antibiotic | | | | 1 | declined | | | | 6 | | | +----+---+ + + | | 1 | Pre-Procedu | | | | 1 | ral Timeout | | | | 2 | Completed | | | | 2 | | | +----+---+ + + | | 1 | An | | | | 1 | Induction | | | | 2 | | | | | 3 | | | +----+---+ + + | | 1 | First | | | | 1 | Inc/Proc St | | | | 2 | | | | | 4 | | | +----+---+ + + | | 1 | Breathing | | | | 1 | Spontaneous | | | | 3 | ly | | | | 5 | | | +----+---+ + + | | 1 | An Stop | Patient handed off to recovery nurse. | | | 4 | | | | | 2 | | | +----+---+ + + +------+ | Meds | +------+ + + + | Name | Total | + + + | propofol (DIPRIVAN) injection | 150 mg | | (bolus) (20 mL) | | + + + | propofol (DIPRIVAN) injection | 126.9 mg | | (bolus) (20 mL) | | + + + | lidocaine 2% | 100 mg | + + + | lactated ringers (LR) infusion | 300 mL | + + + + + | Name | + + | O2 Flow Rate (L/Min) | + + + + | No blood administrations on file. | + + +--------+ + + + | Type | Details | Placement | Removal | +--------+ + + + | Periph | 02/12/18; 1048; Right; Hand; | 02/12/18 1048 by | 02/12/18 1207 by | | caitlin | [id number] catheter system; | Rosy Mcmanus, | Shayna Mena RN | | IV | 20 gauge, 1 1/4 in length; | RN | | | | intradermal injection, tolerated | | | | | well; no longer indicated, | | | | | removed per policy/procedure, | | | | | catheter/device intact; short | | | | | term use; 02/12/18; 1207 | | | +--------+ + + + [...] filedocumented in this encounter Administered Medications + +--------+ +--------+------+------+ | Medication Order | MAR | Action | Dose | Rate | Site | | | Action | Date | | | | + +--------+ +--------+------+------+ | lidocaine (PF) 2% injection | Given | 02/13/20 | 100 mg | | | | Intravenous, PRN, Starting Fri | | 18 11:23 | | | | | 02/12/18 at 1123, Anesthesia | | AM PDT | | | | | Intra-op | | | | | | + +--------+ +--------+------+------+ +---+---+ | | | +---+---+ + +-------+ +-------+---+---+ | propofol (DIPRIVAN) injection | Given | 02/13/20 | 50 mg | | | | PRN, Starting 02/12/18 at 1123, | | 18 11:24 | | | | | Anesthesia Intra-op | | AM PDT | | | | + +-------+ +-------+---+---+ +-------+ +--------+---+---+ | Given | 02/13/20 | 100 mg | | | | | 18 11:23 | | | | | | AM PDT | | | | +-------+ +--------+---+---+ +---+---+ | | | +---+---+ + +---------+ + +-------+---+ | propofol (DIPRIVAN) injection | New Bag | 02/13/20 | 150 | 84.6 | | | CONTINUOUS PRN, Starting Fri | | 18 11:23 | mcg/kg/m | mL/hr | | | 18 at 1123, Anesthesia | | AM PDT | in | | | | Intra-op | | | | | | + +---------+ + +-------+---+ +---+---+ | | | +---+---+ documented in this encounter"
--- OUTSIDE RECORDS SUMMARY | ~2020-01-30 | XMS | Encounter Summary ---
Demographics + + + | Address | [address] | | | [place] [address] | + + + | Home Phone | | + + + | Preferred Language | Unknown | + + + | Marital Status | | + + + | Mormon Affiliation | Unknown | + + + | Race | White | + + + | Ethnic Group | Not or | + + + Author + + + | Author | [facility] | + + + | Organization | [facility] | + + + | Address | Unknown | + + + | Phone | Unavailable | + + + Support + + +---------+ + | Name | Relationship | Address | Phone | + + +---------+ + | Maria Isabel Cespedes | ECON | Unknown | | + + +---------+ + Care Team Providers + +------+ + | Care Inspector Final Assembly Conveyor Line Name | Role | Phone | + +------+ + | Allison Fairchild NP | PCP | | + +------+ + Encounter Details +--------+ + + + + | Date | Type | Department | Care Team | Description | +--------+ + + + + | 02/22/ | Procedure | Diagnostic Imaging | | | | 2019 | Pass | Services at [facility] | | | | | | [address] | | | | | | Vonda Khanna [facility] | | | | | | [address] | | | | | | [place], [place] | | | | | | [address] | | | | | | [phone] | | | +--------+ + + + [...]
--- OUTSIDE RECORDS SUMMARY | ~2020-01-30 | XMS | Encounter Summary ---
Demographics + + + | Address | [address] | | | [place] [address] | + + + | Home Phone | | + + + | Preferred Language | Unknown | + + + | Marital Status | | + + + | Denominational Affiliation | 1013 | + + + | Race | Unknown | + + + | Ethnic Group | Unknown | + + + Author + + + | Author | [facility] | | | and [place] | + + + | Organization | [facility] | | [...] [place] | | | | | [address] | | + + + + + Care Team Providers + +------+ + | Care Water Chemist Name | Role | Phone | + [...] + + | 08/24/ | Office | [facility] | Austin Etienne, | Infected | | 2019 | Visit | INFECTIOUS DISEASE | Juan Chanel MD | hernioplasty mesh, | | | | [address] | [address] | subsequent encounter | | | | [place], [place] | [place] [address] | (Primary Dx); | | | | [address] | [phone] | Polymicrobial | | | | [phone] | | bacterial infection; | | | [...] [place] MD - 08/24/2019 10:00 AM PST [facility] Service: Infectious Diseases Outpatient Follow Up Note [...] Procedure: ERCP; Surgeon: Dc Naik MD; Location: [facility] ERCP N/A 02/12/2018 Procedure: ERCP; Surgeon: Dc Naik MD; Location: [facility] FRACTURE SURGERY 2011 skull/facial HARDWARE REMOVAL Right Hardware placement and removal thumb HERNIA REPAIR pt has 2 hernia repairs and 3rd revision on 12-18-14 hip screw removed Right 2013 Nasal reconstruction 1977 right hip/pelvis surgery 2012 [facility] 2011 UPPER GASTROINTESTINAL ENDOSCOPY UPPER GASTROINTESTINAL ENDOSCOPY N/A 10/23/2015 Procedure: EGD; Surgeon: Adrian Aponte MD; Location: [facility] UPPER GASTROINTESTINAL ENDOSCOPY N/A 11/18/2017 Procedure: EGD; Surgeon: Adrian Aponte MD; Location: [facility] XR LUMBAR SPINE [...] file Gets together: Not on file Attends confucianism service: Not on file Active member of [...] Requests LAC Special Requests Testing performed at [facility];[address] [place] [address];[place] [address] RESULT NO GROWTH 6 DAYS RESULT Testing performed at [facility], [address] [place] [address] Culture, Blood Result Value Ref Range Special Requests LEFT AC Special Requests Testing performed at [facility];[address] [place] [address];[place] [address] RESULT NO GROWTH 6 DAYS RESULT Testing performed at [facility], [address] [place] [address] Culture, Blood Result Value Ref Range Special Requests RIGHT HAND Special Requests Testing performed at [facility];[address] [place] [address];[place] [address] RESULT NO GROWTH 6 DAYS RESULT Testing performed at [facility], [address] [place] [address] Culture, Urine Result Value Ref Range RESULT NO GROWTH RESULT Testing performed at [facility], [address] [place] [address] MRSA NAAT Result Value Ref Range SOURCE: NARES(NOSE) Result NEGATIVE MRSNEG Culture, Body Fluid Sterile Result Value Ref Range Gram Stain Result 4+ WBC'S SEEN Gram Stain Result 1+ GRAM POSITIVE COCCI Gram Stain Result 3+ GRAM NEGATIVE RODS RESULT 2+ ESCHERICHIA COLI (A) RESULT 2+ MIXED GRAM POSITIVE DEEPA RESULT 2+ MIXED ANAEROBIC DEEPA RESULT Testing performed at [facility], [address] [place] [address] Susceptibility Escherichia coli - ANDREW Ampicillin SUSCEPTIBLE Sensitive Ampicillin + Sulbactam SUSCEPTIBLE Sensitive Cefepime SUSCEPTIBLE Sensitive Cefoxitin SUSCEPTIBLE Sensitive Ceftazidime SUSCEPTIBLE Sensitive Ceftriaxone SUSCEPTIBLE Sensitive Ciprofloxacin SUSCEPTIBLE Sensitive Gentamicin SUSCEPTIBLE Sensitive Levofloxacin SUSCEPTIBLE Sensitive Tobramycin SUSCEPTIBLE Sensitive Trimethoprim + Sulfamethoxazole* SUSCEPTIBLE Sensitive * Testing performed at [facility], [address] [place] [address] CBC with Differential Result Value Ref Range [...] Color, UA STRAW Clarity, UA CLEAR Specific Kennedy, Urine 1.029 1.002 - 1.030 Leukocyte esterase, [...] clinic Polymicrobial bacterial infection Allergy to penicillin terminal supervisor (current) use of antibiotics - PICC removal [...] The patient will also need evaluation by pre billing specialist to undergo penicillin allergy t heathering. [...] Other drug allergy | + + | terminal supervisor (current) use of antibiotics | + + documented in this encounter
--- OUTSIDE RECORDS SUMMARY | ~2020-01-30 | XMS | Encounter Summary ---
Demographics + + + | Address | [address] | | | [place] [address] | + + + | Home Phone | | + + + | Preferred Language | Unknown | + + + | Marital Status | | + + + | Muslim Affiliation | 1013 | + + + | Race | Unknown | + + + | Ethnic Group | Unknown | + + + Author + + + | Author | [facility] | | | and [place] | + + + | Organization | [facility] | | [...] [place] | | | | | [address] | | + + + + + Care Team Providers + +------+ + | Care Animal Hospital Clerk Name | Role | Phone | + [...] Romo | | | | | [address] [address] | [place] | | | | | [address] | [address] | | | | | [phone] | | | | | | | [...] | EXTERNAL LAB: [facility] | Routin | 01/01/2015 | | Results for this | | | e | 2:15 PM | | procedure are in the | | | | PDT | | results section. | + +--------+ + + + documented in this encounter Results External Lab: [facility] (01/01/2015 2:15 PM PDT) + + + + + + | Component | Value | Ref Range | Performed | Pathologist | | | | | At | Signature | + + + + + + | WBC | 10.91 | 3.80 - 11.00 | EXTERNAL | | | | | K/uL | LAB | | + + + + + + | Red Blood | 4.40 | 4.20 - 5.70 | EXTERNAL | | | Cells | | M/uL | LAB | | | Counted | | | | | + + + + + + | Hemoglobin | 13.3 | 13.2 - 17.0 | EXTERNAL | | | | | g/dL | LAB | | + + + + + + | Hematocrit, | 40.2 | 39.0 - 50.0 % | EXTERNAL | | | POC | | | LAB | | + + + + + + | MCV | 91.3 | 80.0 - 100.0 fl | EXTERNAL | | | | | | LAB | | + + + + + + | MCH | 30.1 | 27.0 - 34.0 pg | EXTERNAL | | | | | | LAB | | + + + + + + | MCHC | 33.0 | 32.0 - 35.5 | EXTERNAL | | | | | g/dL | LAB | | + + + + + + | RDW-CV | 49.9 | 37 - 53 fl | EXTERNAL | | | | | | LAB | | + + + + + + | Platelet | 638 (H) | 150 - 400 K/uL | EXTERNAL | | | Count | | | LAB | | | Plasma | | | | | + + + + + + | MPV | 7.9 | fl | EXTERNAL | | | | | | LAB | | + + + + + + | Differentia | AUTOMATED | | EXTERNAL | | | l Type | | | LAB | | + + + + + + | % Segmented | 68.32 | % | EXTERNAL | | | | | | LAB | | | Neutrophils | | | | | + + + + + + | % | 23.84 | % | EXTERNAL | | | Lymphocytes | | | LAB | | + + + + + + | % Monocytes | 5.88 | % | EXTERNAL | | | | | | LAB | | + + + + + + | % | 0.91 | % | EXTERNAL | | | Eosinophils | | | LAB | | + + + + + + | % Basophils | 1.05 | % | EXTERNAL | | | | | | LAB | | + + + + + + | Absolute | 7.45 (H) | 1.90 - 7.40 | EXTERNAL | | | Segmented | | K/uL | LAB | | | Neutrophils | | | | | + + + + + + | Absolute | 2.60 | 1.00 - 3.90 | EXTERNAL | | | Lymphocytes | | K/uL | LAB | | + + + + + + | Absolute | 0.64 | 0.00 - 0.80 | EXTERNAL | | | Monocytes | | K/uL | LAB | | + + + + + + | Absolute | 0.10 | 0.00 - 0.50 | EXTERNAL | | | Eosinophils | | K/uL | LAB | | + + + + + + | Absolute | 0.11 (H)Comment: Testing | 0.00 - 0.10 | EXTERNAL | | | Basophils | performed at [facility];[address] | [address] | LAB | | | | [address] | | | | | | [address];[place] [address] | | | | + + + [...]
--- OUTSIDE RECORDS SUMMARY | ~2020-01-30 | XMS | Encounter Summary ---
Demographics + + + | Address | [address] | | | [place] [address] | + + + | Home Phone | | + + + | Preferred Language | Unknown | + + + | Marital Status | | + + + | Lutheran Affiliation | 1013 | + + + | Race | Unknown | + + + | Ethnic Group | Unknown | + + + Author + + + | Author | [facility] | | | and [place] | + + + | Organization | [facility] | | | and [place] [...] [place] | | | | | [address] | | + + + + + Care Team Providers + +------+ + | Care Composite Science Teacher Name | Role | Phone | + [...] | | artery | RAIN [address] | [place], [place] | | | | | disease) | [place] | [address] | | | | | (HCC) | [address] | Phone: | | | | | Procedures | Phone: | [phone] | | | | | IR Stent | [phone] | Fax: | | | | | Iliac | Fax: | [phone] | | | | | | [phone] | | +--------+--------+ + + + + Reason for Visit + + + | Reason | Comments | + + + | Follow-up | 6 mon f/u on CTA | + + + Encounter Details +--------+---------+ + + + | Date | Type | Department | Care Team | Description | +--------+---------+ + + + | 05/26/ | Office | [facility] | Rich Washington MD | PAD (peripheral | | 2019 | Visit | VASCULAR SURGERY | [address] | artery disease) | | | | [address] | [place] | (HCC) (Primary Dx); | | | | [place] | [address] | Dissection of right | | | | [address] | [phone] | iliac artery (HCC) | | | | [phone] | | | +--------+---------+ + + + [...] this encounter Last Filed Vital Signs + +---------+ + + | Vital Sign | Reading | Time Taken | Comments | + +---------+ + + | Blood Pressure | 145/89 | 05/26/2019 1:05 PM | | | | | PDT | | + +---------+ + + | Pulse | 76 | 05/26/2019 1:05 PM | | | | | PDT | | + +---------+ + + | Temperature | - | - | | + +---------+ + + | Respiratory Rate | - | - | | + +---------+ + + | Oxygen Saturation | 96% | 05/26/2019 1:05 PM | | | | | PDT | | + +---------+ + + | Inhaled Oxygen | - | - | | | Concentration | | | | + +---------+ + + | Weight | - | - | | + +---------+ + + | Height | - | - | | + +---------+ + + | Body Mass Index | - | - | | + +---------+ + + documented in this encounter Progress Notes Rich Washington MD - 05/26/2019 1:30 PM PDT Subjective Subjective Mr. Omar christensen pleasant 58 y.o.malewith PMH significant for hepatitis C (treated 2016) , TBI, right shoulder, epidural steroid injection,who presents for follow-up con cerning renal artery stenosis. Patient has history of right external iliac artery dissectio n. Patient has been complaining of progressively worsening abdominal pain recently. Movement and certain positions worsen the pain. Patient's indicates that she almost brought the patient to the Emergency Department yesterday because of the abdominal pain and his blood p ressure was 236/148 yesterday. Patient denies any calf or lower extremity pain when he walks . Patient has a history of abdominal surgeries performed at [facility]. Patient reports he i s on Eliquis currently. CT ANGIOGRAM CHEST ABDOMEN AND PELVIS 1. 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 2. 8 mm left lower lobe pulmonary nodule. Pulmonary Nodule Follow Up Recommendation:Solid non-calcified lung nodule 6-8 mm new from comparison imaging. Such nodules are common and have a low malignant potential. Follow-up chest CT recommended in 6 and 18 months with no further follow-up if stable. (Fleischner society recommendation). 3. Postoperative changes of multiple prior anterior abdominal wall hernia repairs, with small abdominal wall hernia below the mesh. Signed by: Trevin Guevara Matthew Sign Date/Time: 02/21/2019 4:44 PM Past Medical History: Diagnosis Date Adverse effect [...] brain injury (HCC) x 2 Urinary incontinence Past Surgical History: Procedure Laterality Date CHOLECYSTECTOMY COLONOSCOPY 2015 ERCP Left 01/22/2018 Procedure: ERCP; Surgeon: Dc Naik MD; Location: [facility] MEDICAL PROCEDURE UNIT ERCP N/A 02/12/2018 Procedure: ERCP; Surgeon: Dc Naik MD; Location: [facility] MEDICAL PROCEDURE [facility] FRACTURE SURGERY 2011 skull/facial HARDWARE REMOVAL Right Hardware placement and removal thumb HERNIA REPAIR pt has 2 hernia repairs and 3rd revision on 12-18-14 hip screw removed Right 2013 Nasal reconstruction 1977 right hip/pelvis surgery 2012 SLAP 2011 UPPER GASTROINTESTINAL ENDOSCOPY UPPER GASTROINTESTINAL ENDOSCOPY N/A 10/23/2015 Procedure: EGD; Surgeon: Adrian Aponte MD; Location: [facility] MEDICAL PROCEDURE UNIT UPPER GASTROINTESTINAL ENDOSCOPY N/A 11/18/2017 Procedure: EGD; Surgeon: Adrian Aponte MD; Location: [facility] MEDICAL PROCEDURE UNIT XR LUMBAR SPINE COMPLETE Social History Tobacco Use Smoking status: Former Smoker Packs/day: 1.00 Years: 25.00 Pack years: 25.00 Types: Cigarettes Last attempt to quit: 07/04/2018 Years since quittin.8 Smokeless tobacco: Never Used Substance Use Topics Alcohol use: No Alcohol/week: 0.0 oz Drug use: No Types: Marijuana, Cocaine Comment: in the past 30 years ago Family History Adopted: Yes Current Outpatient Medications on File Prior to Visit Medication Sig Dispense Refill amLODIPine (NORVASC) 10 MG tablet Take 10 mg by mouth Daily. Apixaban (ELIQUIS PO) Take 5 mg by mouth 2 times daily. gabapentin (NEURONTIN) 300 mg capsule Take 300 mg by mouth 3 times daily. May increase to 600 mg by mouth twice daily magnesium oxide (MAG-OX) 400 mg tablet magnesium oxide (MAG-OX) 400 mg tablet Take [...] CAPS Take 0.8 mg by mouth Daily. VENTOLIN HFA 108 (90 Base) MCG/ACT inhaler No current facility-administered medications on file prior to visit. Allergies Allergen Reactions Haloperidol Other (See Comments) [...] muscle stiffness Throat Swelled Stiff Neck Penicillins Other (See Comments) and Anaphylaxis Reaction unknown (as a child) Other reaction(s): Patient Does Not Remember Reaction unknown (as a child) Reaction unknown (as a child) Reaction unknown (as a child) Adhesive & [...] feel right Made him not feel right Comprehensive ROS performed and pertinent items described in the HPI. Objective Objective Vitals:reviewed CONSTITUTIONAL: Conversant, well developed, NAD EYES: Anicteric sclerae, no lid drag, no proptosis RESP: Normal effort, regular, even, unlabored rate CV: No peripheral edema, rate regular SKIN: Wineglass, warm, dry without rash/lesion MS: ROM not limited, no digital cyanosis, normal gait NEURO: Cranial nerves II-XII grossly intact, A&O times 3 PSYCH: appropriate affect, speech and tone, judgement and insight intact Vascular: Palpable femoral pulses. Assessment Assessment and Plan CTA chest/abd/pelv results from 02/21/19 reviewed and discussed with the patient. The patien t's right iliac artery dissection is stable at this time based on imaging. I do not think th e patient's abdominal pain is due to right iliac artery dissection. Patient denies any pain in his legs. Patient is having difficult time controlling his blood pressures. Since the aram castillo's blood pressure is poorly controlled, we will pursue surgery for the patient's right iliac artery dissection to help prevent worsening of the dissection. Discussed surgical opti on and mechanism of right iliac stenting with the patient. We have discussed benefits and ri sks of this procedure, including bleeding, infection, worsening dissection. Patient is under standing and agreeable to right iliac artery dissection, and has signed consent for surgery on 06/01/19. Patient was instructed not to eat or drink fluids after 11:59 PM on 05/31/19. I h everte asked the patient to hold his Eliquis one day before the procedure. All questions and co ncerns addressed. Patient will follow up after surgery. Patient understands and is agreeable . Attending Note: Documentation assistance provided by Marie Linares (Herberth). Information leena rded by the scribe has been reviewed and validated by me. I agree with its contents. Signed by: Herberth Lloyd 05/26/19, 13:23 Rich Washington MD documented in this encounter Plan of Treatment Not on filedocumented as of this encounter Results IR Stent Iliac (06/01/2019 2:34 PM PDT) + + | Specimen | + + | | + + + + --+ | Narrative | Performed At | + + --+ | ABDOMINAL | [facility] | | ARTERIOGRAM PREOPERATIVE DIAGNOSIS: Right common [...] SURGEON: | | | Rich Washington MD ENTRY EXAMINER: None ANESTHESIA: Moderate sedation and local | | | anesthesia Informed consent was obtained from the patient. | | | Continuous cardiac monitoring was performed throughout the procedure. | | | Conscious sedation was provided by the nursing staff during the | | | procedure under my supervision. Sedation time: 10 minutes | | | Medications: 1 mg Versed IV, 50 Mcg Fentanyl IV ESTIMATED BLOOD | | | LOSS: Minimal CONTRAST: 12 mL of Isovue 250 INDICATIONS: See | | | preoperative history and physical FINDINGS: Right iliac artery | | | dissection was seen. After stenting, good angiographic results. | | | DESCRIPTION OF PROCEDURE: The patient was properly identified and | | | brought to the Swing Saw Operator. The patient was placed supine on the catheter | | | table and patient was given moderate sedation by nursing staff under | | | my supervision. Patient's bilateral groins were then prepped and | | | draped in the usual sterile fashion. Local anesthetic was given to the | | | right groin and the right common femoral artery was accessed under | | | ultrasound guidance using a micropuncture needle. A micropuncture | | | sheath was inserted over a wire and up sized to a 6 Norwegian sheath. A | | | Omni flush catheter was then inserted into the distal aorta and a | | | right iliac arteriogram was then performed with the findings as | | | described above. Next, a 260 fix core wire was then inserted over | | | the catheter. Right distal common iliac artery to external iliac | | | artery was then stented using 8 x 100 mm self-expanding stent. Due | | | to dissection, the stent was not postdilated. A final arteriogram | | | was then performed through the sheath. The sheath was then removed and | | | a Mynx closure device was then used on the right common femoral | | | artery and hemostasis was ensured. The patient was then taken to the | | | observation unit for further monitoring. IMPRESSION: 1. Right | | | common iliac artery to external iliac artery dissection.2. After | | | stenting, good angiographic results. | | |DESCRIPTION OF PROCEDURE: The patient was properly identified and brought | | |to the Swing Saw Operator. The patient was placed supine on the [...] | | |up sized to a 6 Norwegian sheath. A Omni flush catheter was then [...] | | | | | + + --+ + +---------+ + + | Performing | Address | City/State/Zipcode | Phone Number | | Organization | | | | + +---------+ + + | [facility] | | | | + +---------+ + + documented in this encounter Visit Diagnoses + + | Diagnosis | + + | PAD (peripheral artery disease) (HCC) - Primary Unspecified disorders of arteries and | | arterioles | + + | Dissection of right iliac artery (HCC) | + + documented in this encounter
--- OUTSIDE RECORDS SUMMARY | ~2020-01-30 | XMS | Encounter Summary ---
Demographics + + + | Address | [address] | | | [place] [address] | + + + | Home Phone [...] + | Author | [facility] | | | and [place] | + + + | Organization | [facility] | | | and [place] [...] [place] | | | | | [address] | | + + + + + Care Team Providers + +------+ + | Care Micromatic Hone Operator Name | Role | Phone | [...] [place] | | | | | [address] | [address] | | | | | [phone] | [phone] | | | | | | | [...] EXTERNAL | | | | performed at [facility];[address] | | LAB | | | | [place] | | | | | | [address];[place] [address] | | | | + + + [...]
--- OUTSIDE RECORDS SUMMARY | ~2020-01-30 | XMS | Encounter Summary ---
Demographics + + + | Address | [address] | | | [place] [address] | + + + | Home Phone | | + + + | Preferred Language | Unknown | + + + | Marital Status | | + + + | Scientologist Affiliation | 1013 | + + + | Race | Unknown | + + + | Ethnic Group | Unknown | + + + Author + + + | Author | [facility] | | | and [place] | + + + | Organization | [facility] | | | and [place] [...] [place] | | | | | [address] | | + + + + + Care Team Providers + +------+ + | Care Shelter Case Manager Name | Role | Phone | + +------+ + | Allison Fairchild NP | PCP | | + +------+ + Reason for Visit + + + | Reason | Comments | + + + | Medication Refill | | | Assistance | | + + + Encounter Details +--------+ + + + + | Date | Type | Department | Care Team | Description | +--------+ + + + + | 09/16/ | Telephone | [facility] | Adrian Aponte MD | Medication Refill | | 2019 | | GASTROENTEROLOGY | [address] | Assistance | | | | [address] | [place], [place] | | | | | [address] [place], [place] | [address] | | | | | [address] | [phone] | | | | | [phone] | | | +--------+ + + + [...] + | Diagnosis | + + | Gastroesophageal reflux disease, esophagitis presence not specified - Primary | + + documented in this encounter"
--- OUTSIDE RECORDS SUMMARY | ~2020-01-30 | XMS | Encounter Summary ---
Demographics + + + | Address | [address] | | | [place] [address] | + + + | Home Phone | | + + + | Preferred Language | Unknown | + + + | Marital Status | | + + + | Hindu Affiliation | 1013 | + + + | Race | Unknown | + + + | Ethnic Group | Unknown | + + + Author + + + | Author | [facility] | | | and [place] | + + + | Organization | [facility] | | | [...] [place] | | | | | [address] | | + + + + + Care Team Providers + +------+ + | Care Automotive Consultant Name | Role | Phone | + +------+ + | Allison Fairchild NP | PCP | | + +------+ + Reason for Visit + + + | Reason | Comments | + + + | Medication Refill | | + + + | Diagnostic Order | CT | + + + Encounter Details +--------+--------+ + + + | Date | Type | Department | Care Team | Description | +--------+--------+ + + + | 10/08/ | Refill | [facility] | Adrian Aponte MD | Medication Refill; | | 2017 | | GASTROENTEROLOGY | [address] | Diagnostic Order | | | | [address] [facility] | [place], [place] | ([place]) | | | | [address] [place], [place] | [address] | | | | | [address] | [phone] | | | | | [phone] | | | +--------+--------+ + + + [...]
--- OUTSIDE RECORDS SUMMARY | ~2020-01-30 | XMS | Encounter Summary ---
Demographics + + + | Address | [address] | | | [place] [address] | + + + | Home Phone | | + + + | Preferred Language | Unknown | + + + | Marital Status | | + + + | Taoism Affiliation | 1013 | + + + | Race | Unknown | + + + | Ethnic Group | Unknown | + + + Author + + + | Author | [facility] | | | and [place] | + + + | Organization | [facility] | | | and [place] [...] [place] | | | | | [address] | | + + + + + Care Team Providers + +------+ + | Care Recruiting Consultant Name | Role | Phone | [...] [place] | | | | | [address] | [address] | | | | | [phone] | [phone] | | | | | | | [...] EXTERNAL | | | | performed at [facility] | | LAB | | | | [facility];[address] | | | | | | [place] | | | | | | [address] | | | | + + + [...]
--- OUTSIDE RECORDS SUMMARY | ~2020-01-30 | XMS | Encounter Summary ---
Demographics + + + | Address | [address] | | | [place] [address] | + + + | Home Phone | | + + + | Preferred Language | Unknown | + + + | Marital Status | | + + + | Congregation Affiliation | 1013 | + + + | Race | Unknown | + + + | Ethnic Group | Unknown | + + + Author + + + | Author | [facility] | | | and [place] | + + + | Organization | [facility] | | | [...] [place] | | | | | [address] | | + + + + + Care Team Providers + +------+ + | Care Top Taper Machine Name | Role | Phone | + +------+ + | Allison Fairchild NP | PCP | | + +------+ + Reason for Visit + + + | Reason | Comments | + + + | Procedure | | + + + Encounter Details +--------+ + + + + | Date | Type | Department | Care Team | Description | +--------+ + + + + | 02/10/ | Telephone | [facility] | Dc Naik MD | Procedure | | 2018 | | GASTROENTEROLOGY | [address] [place] | | | | | [address] [place] | [address] [place], [place] | | | | | [address] [place], [place] | [address] | | | | | [address] | | | | | | [phone] | | | +--------+ + + + [...]
--- OUTSIDE RECORDS SUMMARY | ~2020-01-30 | XMS | Encounter Summary ---
Demographics + + + | Address | [address] | | | [place] [address] | + + + | Home Phone | | + + + | Preferred Language | Unknown | + + + | Marital Status | | + + + | Scientologist Affiliation | Unknown | + + + | Race | White | + + + | Ethnic Group | Not or | + + + Author + + + | Author | [facility] | + + + | Organization | [facility] | + + + | Address | Unknown | + + + | Phone | Unavailable | + + + Support + + +---------+ + | Name | Relationship | Address | Phone | + + +---------+ + | Maria Isabel Cespedes | ECON | Unknown | | + + +---------+ + Care Team Providers + +------+ + | Care Associate Project Manager Name | Role | Phone | + +------+ + | Allison Fairchild NP | PCP | | + +------+ + Encounter Details +--------+------+ + + + | Date | Type | Department | Care Team | Description | +--------+------+ + + + | 11/02/ | Lab | Laboratory at [facility] | | Renal artery anomaly | | 2019 | | [address] | | | | | | [facility] | | | | | | [place], [address] [place] [address] | | | | | | [place], [place] | | | | | | [address] | | | | | | [phone] | | | +--------+------+ + + + [...] | + +--------+ + + + | HEPATITIS B SURFACE | Routin | 11/02/2018 | Renal artery | Results for this | | AG W/REFLEX IF | e | 4:55 PM | anomaly | procedure are in the | | INDICATED | | PST | | results section. | + +--------+ + + + | CBC AND AUTO DIFF | Routin | 11/02/2018 | Renal artery | Results for this | | | e | 4:55 PM | anomaly | procedure are in the | | | | PST | | results section. | + +--------+ + + + | QUANTIFERON TB GOLD, | Routin | 11/02/2018 | Renal artery | Results for this | | BLOOD | e | 4:55 PM | anomaly | procedure are in the | | | | PST | | results section. | + +--------+ + + + | HEP C PCR | Routin | 11/02/2018 | Renal artery | Results for this | | CONFIRMATION: REFLEX | e | 4:55 PM | anomaly | procedure are in the | | ONLY | | PST | | results section. | + +--------+ + + + | CBC, WITH | Routin | 11/02/2018 | Renal artery | Results for this | | DIFFERENTIAL | e | 4:55 PM | anomaly | procedure are in the | | | | PST | | results section. | + +--------+ + + + | COMPLETE METABOLIC | Routin | 11/02/2018 | Renal artery | Results for this | | SET | e | 4:55 PM | anomaly | procedure are in the | | (NA,K,CL,CO2,BUN,CRE | | PST | | results section. | | AT,GLUC,CA,AST,ALT,B | | | | | | MARGIE TOTAL,ALK | | | | | | PHOS,ALB,PROT TOTAL) | | | | | + +--------+ + + + | C-REACTIVE PROTEIN | Routin | 11/02/2018 | Renal artery | Results for this | | | e | 4:55 PM | anomaly | procedure are in the | | | | PST | | results section. | + +--------+ + + + | SEDIMENTATION RATE | Routin | 11/02/2018 | Renal artery | Results for this | | | e | 4:55 PM | anomaly | procedure are in the | | | | PST | | results section. | + +--------+ + + + | HEPATITIS B CORE AB, | Routin | 11/02/2018 | Renal artery | Results for this | | SERUM | e | 4:55 PM | anomaly | procedure are in the | | | | PST | | results section. | + +--------+ + + + | HEPATITIS C VIRUS | Routin | 11/02/2018 | Renal artery | Results for this | | W/CONFIRMATION | e | 4:55 PM | anomaly | procedure are in the | | | | PST | | results section. | + +--------+ + + + documented in this encounter Results HEPATITIS C VIRUS BY QUANTITATIVE NAAT (11/02/2018 4:55 PM PST) + + + + + + | Component | Value | Ref Range | Performed | Pathologist | | | | | At | Signature | + + + + + + | HCV QNT BY | Not Detected | IU/mL | [facility] | | | NAAT | | | REG UNIV | | | (IU/ML) | | | PTH - [facility] | | + + + + + + | HCV QNT BY | Not Detected | log IU/mL | [facility] | | | NAAT (LOG | | | REG UNIV | | | IU/ML) | | | PTH - [facility] | | + + + + + + | HCV QNT BY | Not DetectedComment: | Not Detected | [facility] | | | NAAT | INTERPRETIVE | | REG UNIV | | | INTERPRETAT | INFORMATION: HCV by | | PTH - [facility] | | | ION | Quantitative NAAT Normal | | | | | | range for this assay is | | | | | | "Not Detected".The | | | | | | quantitative range of | | | | | | this assay is 10 - | | | | | | 100,000,000 IU/mL (1.0 - | | | | | | 8.0 log IU/mL). Lower | | | | | | limit of quantitation | | | | | | (LLoQ):10 IU/mL (1.0 log | | | | | | IU/mL)LLoQ values do | | | | | | not apply to diluted | | | | | | specimens.A result of | | | | | | "Not Detected" does not | | | | | | rule out the presence of | | | | | | inhibitors in the | | | | | | patient specimen or | | | | | | hepatitis C virus RNA | | | | | | concentrations below the | | | | | | level of detection of | | | | | | the test. Care should be | | | | | | taken when interpreting | | | | | | any single viral load | | | | | | determination. This test | | | | | | should not be used for | | | | | | blood donor screening, | | | | | | associated re-entry | | | | | | protocols, or for | | | | | | screening Human Cell, | | | | | | Tissues and Cellular | | | | | | Tissue-Based Products | | | | | | (HCT/P).Performed by | | | | | | [address] | | | | | [address], [facility],[place] | | | | | | [address] | | | | | | [phone].[email or web address]. | | | | | | Melecio [...] + + | [facility] | [address] | [place], [place] | | | UNIV PTH - [facility] | | [id number] | | + + + + + CBC AND AUTO DIFF (11/02/2018 4:55 PM PST) + + + + + + | Component | Value | Ref Range | Performed | Pathologist | | | | | At | Signature | + + + + + + | WHITE CELL | 12.41 (H) | 3.50 - 10.80 | [facility] | | | COUNT | | K/cu mm | LABORATORY | | | | | | SERVICES, | | | | | | CORE | | + + + + + + | RED CELL | 4.64 | 4.50 - 6.00 | [facility] | | | COUNT | | M/cu mm | LABORATORY | | | | | | SERVICES, | | | | | | CORE | | + + + + + + | HEMOGLOBIN | 14.3 | 13.5 - 17.5 | [facility] | | | | | g/dL | LABORATORY | | | | | | SERVICES, | | | | | | CORE | | + + + + + + | HEMATOCRIT | 42.6 | 41.0 - 53.0 % | [facility] | | | | | | LABORATORY | | | | | | SERVICES, | | | | | | CORE | | + + + + + + | MCV | 91.8 | 80.0 - 100.0 fL | [facility] | | | | | | LABORATORY | | | | | | SERVICES, | | | | | | CORE | | + + + + + + | MCHC | 33.6 | 32.0 - 36.0 | [facility] | | | | | g/dL | LABORATORY | | | | | | SERVICES, | | | | | | CORE | | + + + + + + | RDW SD | 47.1 (H) | 35.1 - 46.3 fL | [facility] | | | | | | LABORATORY | | | | | | SERVICES, | | | | | | CORE | | + + + + + + | PLATELET | 350 | 150 - 400 K/cu | [facility] | | | COUNT | | mm | LABORATORY | | | | | | SERVICES, | | | | | | CORE | | + + + + + + | MPV | 9.8 | 9.7 - 12.3 fL | [facility] [...] + + + + | NEUTROPHIL | 63.2 | 50.0 - 70.0 % | [facility] | | | % | | | LABORATORY | | | | | | SERVICES, | | | | | | CORE | | + + + + + + | LYMPHOCYTE | 27.2 | 18.0 - 42.0 % | [facility] | | | % | | | LABORATORY | | | | | | SERVICES, | | | | | | CORE | | + + + + + + | MONOCYTE % | 7.6 | 3.5 - 9.0 % | [facility] | | | | | | LABORATORY | | | | | | SERVICES, | | | | | | CORE | | + + + + + + | EOS % | 1.0 | 1.0 - 3.0 % | [facility] | | | | | | LABORATORY | | | | | | SERVICES, | | | | | | CORE | | + + + + + + | BASO % | 0.6 | 0.0 - 2.0 % | [facility] | | | | | | LABORATORY | | | | | | SERVICES, | | | | | | CORE | | + + + + + + | IG% | 0.4Comment: Increased | 0.0 - 1.0 % | [...] + + + + | NEUTROPHIL | 7.85 (H) | 1.80 - 7.70 | [facility] | | | # | | K/cu mm | LABORATORY | | | | | | SERVICES, | | | | | | CORE | | + + + + + + | LYMPHOCYTE | 3.37 | 1.00 - 4.80 | [facility] | | | # | | K/cu mm | LABORATORY | | | | | | SERVICES, | | | | | | CORE | | + + + + + + | MONOCYTE # | 0.94 (H) | 0.10 - 0.90 | [facility] | | | | | K/cu mm | LABORATORY | | | | | | SERVICES, | | | | | | CORE | | + + + + + + | EOS # | 0.12 | 0.00 - 0.50 | [facility] | | | | | K/cu mm | LABORATORY | | | | | | SERVICES, | | | | | | CORE | | + + + + + + | BASO # | 0.08 | 0.00 - 0.10 | [facility] | | | | | K/cu mm | LABORATORY | | | | | | SERVICES, | | | | | | CORE | | + + + + + + | IG# | 0.05 | 0.00 - 0.10 | [facility] | [...] immature granulocytes (IG) define a left shift. | [facility] | | Immature granulocytes (IG) are an automated count of metamyelocytes, | LABORATORY | | myelocytes and promyelocytes. Bands are not included in the IG count. | SERVICES, CORE | | Bands are included in the neutrophil count. | | + + + + + + + + | Performing | Address | City/State/Zipcode | Phone Number | | Organization | | | | + + + + + | [facility] | [address] | [place] [address] | | | SERVICES, CORE | [address] | | | + + + + + HEPATITIS B CORE AB, SERUM (11/02/2018 4:55 [...] | + + + + + | [facility] | [address] | [place] [address] | | | SERVICES, CORE | [address] | | | + [...] | + + + + + | [facility] | [address] | [place] [address] | | | SERVICES, CORE | [address] | | | + [...] [facility] | | | NIL | by [address] | | REG UNIV | | | | [address], [facility],[place] | | PTH - [facility] | | | | [address] | | | | | | [phone]. | | | | | | Melecio [...] (http://www.cdc.gov/mmwr | | | | | | /preview/mmwrhtml/jl6039 | | | | | | [email or web address].htm), [...] [facility] | [address] | [place], [place] | | | UNIV PTH - [facility] | | [address] | | + + + + + [...] | + + + + + | [facility] | [address] | [place] [address] | | | SERVICES, CORE | [address] | | | + [...] [facility] | [address] | [place] [address] | | | SERVICES, CORE | [address] [...] | | | LABORATORY | | | NAMIBIAN | | | SERVICES, | | | [...] the MDRD equation recommended by the | [facility] | | National Kidney Disease Education Program. [...] | + + + + + | [facility] | [address] | [place] [address] | | | SERVICES, CORE | [address] | | | + + + + + SEDIMENTATION RATE (11/02/2018 4:55 PM PST) + +--------+ + + + | Component | Value | Ref Range | Performed | Pathologist | | | | | At | Signature | + +--------+ + + + | SEDIMENTATI | 54 (H) | 0 - 20 mm/hr | [facility] | | | ON RATE | | [...] | LABORATORY | | sedimentation rate. 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
--- OUTSIDE RECORDS SUMMARY | ~2020-01-30 | XMS | Encounter Summary ---
Demographics + + + | Address | [address] | | | [place] [address] | + + + | Home Phone [...] | Author | [facility] | | | and [place] | + + + | Organization | [facility] | | | and [...] [place] | | | | | [address] | | + + + + + Care Team Providers + +------+ + | Care Outreach Counselor Name | Role | Phone | + +------+ + | Allison Fairchild NP | PCP | | + +------+ + Encounter Details +--------+ + + + + | Date | Type | Department | Care Team | Description | +--------+ + + + + | 10/08/ | Hospital | [facility] | Conversion | | | 2017 | Encounter | [facility] | Transaction, | | | | | [address] | Provider Unknown | | | | | [place], [place] | [phone] | | | | | [address] | | | | | | [phone] | Jamie Bentley MD | | | | | | [address] [facility] [address] | | | | | | [address] [place], [place] | | | | | | [address] | | | | | | | [...]
--- OUTSIDE RECORDS SUMMARY | ~2020-01-30 | XMS | Encounter Summary ---
Demographics + + + | Address | [address] | | | [place] [address] | + + + | Home Phone | | + + + | Preferred Language | Unknown | + + + | Marital Status | | + + + | Pentecostalism Affiliation | 1013 | + + + | Race | Unknown | + + + | Ethnic Group | Unknown | + + + Author + + + | Author | [facility] | | | and [place] | + + + | Organization | [facility] | | | and [place] | [...] [place] | | | | | [address] | | + + + + + Care Team Providers + +------+ + | Care Classifier Tender Name | Role | Phone | [...] + + | 07/07/ | Telephone | [facility] | LillyRhianna, | Patient Concerns | | 2019 | | HEALTH EDUCATION AIDE | Mobile Home Park Manager | (discharge | | | | MANAGEMENT [address] | | instructions ) | | | | [address] | | | | | | [facility] [place] | | | | | | [address] | | | | | | [phone] | | | +--------+ + + + [...]
--- OUTSIDE RECORDS SUMMARY | ~2020-01-30 | XMS | Encounter Summary ---
Demographics + + + | Address | [address] | | | [place] [address] | + + + | Home Phone | | + + + | Preferred Language | Unknown | + + + | Marital Status | | + + + | Adventist Affiliation | 1013 | + + + | Race | Unknown | + + + | Ethnic Group | Unknown | + + + Author + + + | Author | [facility] | | | and [place] | + + + | Organization | [facility] | | | and [...] [place] | | | | | [address] | | + + + + + Care Team Providers + +------+ + | Care Certified Caregiver Name | Role | Phone | + [...] | | | disorder | [address] | [place], [place] | | | | | ([facility]) | [place], [place] | [address] | | | | | | [address] | Phone: | | | | | | Phone: | [phone] | | | | | | [phone] | Fax: | | | | | | Fax: | [phone] | | | | | | [phone] | | +--------+ + + + + [...] + + | 10/06/ | Office | [facility] | Anival Stevenson MD | Thrombocytosis (HCC) | | 2020 | Visit | GENERAL SURGERY [address] | [address] | (Primary Dx); | | | | [address] | [address] [place], [place] | [place] [address] | | | | [place], [place] | [address] | fever; Night sweats; | | | | [address] | | Disoriented to | | | | [phone] | | place; Delusional | | | [...] to | Ordered: 10/06/2019 | | to Merged With [facility] | Referral | e | [...] | | | | | performed at [facility];[address] | | | | | | [facility] | | | | | | [facility];[place] [address] | | | | | | | | | | + + + + + + + + | Specimen | + + | Blood | + + + + + + + | Performing | Address | City/State/Zipcode | Phone Number | | Organization | | | | + + + + + | REFERENCE LAB | [facility] | [place] | [phone] | | [place] | [address] | [address] | | | LABORATORY | | | | + + + + + | REFERENCE LAB | [facility] | [place] | | | [place] | [address] | [address] | | | LABORATORY | | | [...] | | | Absolute | performed at [facility];[address] | [address] | LAB | | | | [address] | | [facility] | | | | [address];[place] [address] | | LABORATORY | | + + + + + + + + | Specimen | + + | Blood | + + + + + + + | Performing | Address | City/State/Zipcode | Phone Number | | Organization | | | | + + + + + | REFERENCE LAB | [address] | [place] | [phone] | | [place] | [address] | [address] | | | LABORATORY | | | | + + + + + | REFERENCE LAB | [address] | [place] | | | [place] | [address] | [address] | | | LABORATORY | | | [...]
--- OUTSIDE RECORDS SUMMARY | ~2020-01-30 | XMS | Encounter Summary ---
Demographics + + + | Address | [address] | | | [place] [address] | + + + | Home Phone | | + + + | Preferred Language | Unknown | + + + | Marital Status | | + + + | Evangelical Affiliation | 1013 | + + + | Race | Unknown | + + + | Ethnic Group | Unknown | + + + Author + + + | Author | [facility] | | | and [place] | + + + | Organization | [facility] | | | and [place] [...] [place] | | | | | [address] | | + + + + + Care Team Providers + +------+ + | Care Applications Intern Name | Role | Phone | + +------+ + PCP | Unavailable | + +------+ + Encounter Details +--------+ + + + + | Date | Type | Department | Care Team | Description | +--------+ + + + + | 12/18/ | Hospital | [facility] | Bertha Bentley MD | Incisional hernia | | 2015 - | Encounter | [facility] [address] | [address] | without mention of | | | | [address] | [address] [place], [place] | obstruction or | | 12/21/ | | [place], [place] | [address] | augie | | 2014 | | [address] | | | | | | [phone] | | | +--------+ + + + [...] 1343 Date of Service: 12/21/141340 Status: Addendum Copper Miner Blasting: Bertha Bentley MD (Physician) Related Notes: Original Note by Bertha Bentley MD (Physician) filed at 12/21/14 1342 [facility] Service: General Surgery Discharge Summary Date [...] - INCISIONAL; Surgeon: Bertha Bentley MD; Location: [facility] MAIN OR; Service: General; Laterality: N/A; Incisional hernia repair N/A 07/03/2014 Procedure: HERNIA REPAIR - INCISIONAL - COMPLEX; Surgeon: Bertha Bentley MD; Location: [facility] MAIN OR; Service: General; Laterality: N/A; open - recurrent Cosmetic surgery Multiple facial surgeries for 24 fractures. Hardware removal 06/2013 12 screws and plate in R [facility], [place] Incisional hernia repair N/A 12/18/2014 Procedure: HERNIA REPAIR - INCISIONAL - SIMPLE; Surgeon: Bertha Bentley MD; Location: [facility] MAIN OR; Service: General; Laterality: N/A; open [...] file. 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 You may get the following medications from any pharmacy - oxyCODONE 5 MG immediate release tablet - sulfamethoxazole-trimethoprim 800-160 MG per tablet Discharge took 20 minutes, to include final examination, discussion of admission, and prepa ration of prescriptions, instructions for on-going care, follow-up and documentation of disc harge summary. Bertha Bentley MD 12/21/2014 documented in this enc ounter Progress Notes Conversion Transaction, Provider Unknown - 12/21/2014 2:39 PM PDTFormatting of this note m ight be different from the original. Nurse Progress Note by Kerrie Nieves RN at 12/21/141438 Author: Kerrie Nieves RN Service: (none) Author Type: Registered Nurse Filed: 12/21/149 Date of Service: 12/21/141438 Status: Signed Copper Miner Blasting: Kerrie Nieves RN (Registered Nurse) Discharge patient to home Instructions given States understanding Prescription given Kerrie Nieves RN 12/21/2014 2:39 PM ertha Guillen MD - 2014 7:40 AM PDTFormatting of this note might be different from the leidy ginal. Progress Notes by Bertha Bentley MD at 12/20/14 0731 Author: Bertha Bentley MD Service: General Surgery Author Type: Physician Filed: 12/20/14 0741 Date of Service: 12/20/14739 Status: Signed Copper Miner Blasting: Bertha Bentley MD (Physician) [facility] Service: General Surgery Progress Note POD: [...] Shell Levin RN Service: (none) Author Type: Seasoner Hand Filed: 12/19/14945 Date of Service: 12/19/14941 Status: Signed Copper Miner Blasting: Shell Levin RN (Seasoner Hand) Met with Donna to discuss DC plans. They plan to return home in [place]. They h ave a w/c, walker, and cane at home. They deny OP medical services. 12/19/14922 Discharge Planning Evaluation Admitting Diagnosis Incisional hernia Readmission No Living Arrangements Spouse/significant other Support Systems Spouse/significant other;Mandaen/katty community;Family members Type of Residence Private residence [...] Plan Yes Name of Pharmacy [facility] Previous home health equipment No Vascular access device No Ostomy/Drains/Appliances No Anticipated Disposition Facility Type Home Medicare Important Message (KIKE) Not applicable Met with: Reza and his and discussed discharge planning, Pt is a 54 y.o., male Patient's PCP is: PACO ROBERSON Patient's insurance: [employer] Coverage concerns: none Medication coverage/concerns: [employer] Community [...] 12/19/14827 Date of Service: 12/19/14826 Status: Signed Copper Miner Blasting: Bertha Bentley MD (Physician) [facility] Service: General Surgery Progress Note POD: [...] 12/18/141429 Date of Service: 12/18/141429 Status: Signed Copper Miner Blasting: Sherri Gilmore RPH (Pharmacist) Renal Dosing Monitoring: Reza Cespedes 53 y.o. male Pharmacy dosing for renal function per Dr. Bentley Crcl~107.9ml/min Plan per protocol: Medication / Dose: no medications need renal adjustments at this time. Pharmacy will continue monitoring patient for appropriate dosing per renal function. 12/18/2014 2:28 PM Pharmacist: Sherri Gilmore onver day Amrendariz, Provider Unknown - 12/18/2014 2:29 PM PDT Progress Notes by Sherri Gilmore RPH at 12/18/141428 Author: Sherri Gilmore RPH Service: (none) Author Type: Pharmacist Filed: 12/18/141428 Date of Service: 12/18/141428 Status: Signed Copper Miner Blasting: Sherri Gilmore RPH (Pharmacist) Renal Dosing Monitoring: [...] a clear | | | synthetic mesh. Cutter Gas sections are submitted in cassette | | | (A1). FM MICROSCOPIC EXAMINATION: Histologic sections of all | | | submitted blocks are examined by light microscopy. These findings, | | | together with the gross examination, support the pathologic diagnosis. | | | PERFORMING LABORATORY: Professional interpretation and technical | | | preparation was performed by [facility], [facility] | | | [address] [address] (Assistant Manager: | | | Renaldo Love M.D.; [facility]#: [id number]). Diagnostician: Renaldo Levy | | | Ivan [...] | | EXTERNAL | | | | [facility] [address] | | LAB | | | | Blvd;[place] [address] | | | | + + + + + + | Antibody | NEGATIVE | | EXTERNAL | | | Screen | | | LAB | | + + + + + + | Antibody | Testing performed at | | EXTERNAL | | | Screen | [facility] | | LAB | | | | [address];[place] [address] | | | | + + + + + + | BB BAND | [id number] | | EXTERNAL | | | | | | LAB | | + + + + + + | BB BAND | Testing performed at | | EXTERNAL | | | | [facility] | | LAB | | | | [address];[place] [address] | | | | + + + [...] EXTERNAL | | | | performed at [facility];[address] | K/uL | LAB | | | | [address];[place] | | | | | | [address] | | | | + + + + + + | Red Blood | 4.40Comment: Testing | 4.20 - 5.70 | EXTERNAL | | | Cells | performed at [facility];[address] | M/uL | LAB | | | Counted | [address];[place] | | | | | | [address] | | | | + + + + + + | Hemoglobin | 13.4Comment: Testing | 13.2 - 17.0 | EXTERNAL | | | | performed at [facility];888 | g/dL | LAB | | | | [address];[place] | | | | | | [address] | | | | + + + + + + | Hematocrit, | 40.1Comment: Testing | 39.0 - 50.0 % | EXTERNAL | | | POC | performed at [facility];[address] | | LAB | | | | [address];[place] | | | | | | [address] | | | | + + + + + + | MCV | 91.0Comment: Testing | 80.0 - 100.0 fl | EXTERNAL | | | | performed at [facility];[address] | | LAB | | | | [address];[place] | | | | | | [address] | | | | + + + + + + | MCH | 30.5Comment: Testing | 27.0 - 34.0 pg | EXTERNAL | | | | performed at [facility];[address] | | LAB | | | | [address];[place] | | | | | | [address] | | | | + + + + + + | MCHC | 33.5Comment: Testing | 32.0 - 35.5 | EXTERNAL | | | | performed at [facility];888 | g/dL | LAB | | | | [address];[place] | | | | | | [address] | | | | + + + + + + | RDW-CV | 48.1Comment: Testing | 37 - 53 fl | EXTERNAL | | | | performed at [facility];[address] | | LAB | | | | [address];[place] | | | | | | [address] | | | | + + + + + + | Platelet | 318Comment: Testing | 150 - 400 K/uL | EXTERNAL | | | Count | performed at [facility];[address] | | LAB | | | Plasma | [address];[place] | | | | | | [address] | | | | + + + + + + | MPV | 8.7Comment: Testing | fl | EXTERNAL | | | | performed at [facility];[address] | | LAB | | | | [address];[place] | | | | | | [address] | | | | + + + + + + | Differentia | AUTOMATEDComment: | | EXTERNAL | | | l Type | Testing performed at | | LAB | | | | [facility];[address] | | | | | | [address];[place] [address] | | | | + + + + + + | % Segmented | 57.40Comment: Testing | % | EXTERNAL | | | | performed at [facility];[address] | | LAB | | | Neutrophils | [address];[place] | | | | | | [address] | | | | + + + + + + | % | 29.91Comment: Testing | % | EXTERNAL | | | Lymphocytes | performed at [facility];[address] | | LAB | | | | [address];[place] | | | | | | [address] | | | | + + + + + + | % Monocytes | 8.18Comment: Testing | % | EXTERNAL | | | | performed at [facility];[address] | | LAB | | | | [address];[place] | | | | | | [address] | | | | + + + + + + | % | 3.18Comment: Testing | % | EXTERNAL | | | Eosinophils | performed at [facility];[address] | | LAB | | | | [address];[place] | | | | | | [address] | | | | + + + + + + | % Basophils | 1.33Comment: Testing | % | EXTERNAL | | | | performed at [facility];[address] | | LAB | | | | [address];[place] | | | | | | [address] | | | | + + + + + + | Absolute | 5.80Comment: Testing | 1.90 - 7.40 | EXTERNAL | | | Segmented | performed at [facility];888 | K/uL | LAB | | | Neutrophils | [address];[place] | | | | | | [address] | | | | + + + + + + | Absolute | 3.02Comment: Testing | 1.00 - 3.90 | EXTERNAL | | | Lymphocytes | performed at [facility];888 | K/uL | LAB | | | | [address];[place] | | | | | | [address] | | | | + + + + + + | Absolute | 0.83 (H)Comment: Testing | 0.00 - 0.80 | EXTERNAL | | | Monocytes | performed at [facility];888 | K/uL | LAB | | | | [address];[place] | | | | | | [address] | | | | + + + + + + | Absolute | 0.32Comment: Testing | 0.00 - 0.50 | EXTERNAL | | | Eosinophils | performed at [facility];888 | K/uL | LAB | | | | [address];[place] | | | | | | [address] | | | | + + + + + + | Absolute | 0.13 (H)Comment: Testing | 0.00 - 0.10 | EXTERNAL | | | Basophils | performed at [facility];888 | K/uL | LAB | | | | [address];[place] | | | | | | [address] | | | | + + + [...] EXTERNAL | | | | performed at [facility];888 | mmol/L | LAB | | | | [address];[place] | | | | | | [address] | | | | + + + + + + | K | 3.6Comment: Testing | 3.5 - 4.9 | EXTERNAL | | | | performed at [facility];888 | mmol/L | LAB | | | | [address];[place] | | | | | | [address] | | | | + + + + + + | Cl | 105Comment: Testing | 99 - 109 mmol/L | EXTERNAL | | | | performed at [facility];[address] | | LAB | | | | [address];[place] | | | | | | [address] | | | | + + + + + + | CO2 | 25Comment: Testing | 23 - 32 mmol/L | EXTERNAL | | | | performed at [facility];[address] | | LAB | | | | [address];[place] | | | | | | [address] | | | | + + + + + + | Anion Gap | 12Comment: Testing | 5 - 20 mmol/L | EXTERNAL | | | | performed at [facility];[address] | | LAB | | | | [address];[place] | | | | | | [address] | | | | + + + + + + | Glucose, | 113 (H)Comment: Testing | 65 - 99 mg/dL | EXTERNAL | | | Fasting | performed at [facility];[address] | | LAB | | | | [address];[place] | | | | | | [address] | | | | + + + + + + | BUN | 19Comment: Testing | 8 - 25 mg/dL | EXTERNAL | | | | performed at [facility];[address] | | LAB | | | | [address];[place] | | | | | | [address] | | | | + + + + + + | Creatinine | 0.92Comment: Testing | 0.70 - 1.30 | EXTERNAL | | | | performed at [facility];888 | mg/dL | LAB | | | | [address];[place] | | | | | | [address] | | | | + + + + + + | BUN/Creatin | 21Comment: Testing | | EXTERNAL | | | ine Ratio | performed at [facility];[address] | | LAB | | | | [address];[place] | | | | | | [address] | | | | + + + + + + | Calcium | 8.7Comment: Testing | 8.5 - 10.5 | EXTERNAL | | | | performed at [facility];888 | mg/dL | LAB | | | | [address];[place] | | | | | | [address] | | | | + + + [...] | | | | | | at [facility];[address] | | | | | | [facility];[place] [address] | | | | + + + [...]
--- OUTSIDE RECORDS SUMMARY | ~2020-01-30 | XMS | Encounter Summary ---
Demographics + + + | Address | [address] | | | [place] [address] | + + + | Home Phone | | + + + | Preferred Language | Unknown | + + + | Marital Status | | + + + | Moravian Affiliation | 1013 | + + + | Race | Unknown | + + + | Ethnic Group | Unknown | + + + Author + + + | Author | [facility] | | | and [place] | + + + | Organization | [facility] | | | and [...] [place] | | | | | [address] | | + + + + + Care Team Providers + +------+ + | Care Gold And Silver Assayer Name | Role | Phone | + +------+ + | Allison Fairchild NP | PCP | | + +------+ + Encounter Details +--------+ + + + + | Date | Type | Department | Care Team | Description | +--------+ + + + + | 09/21/ | Orders Only | [facility] | A[facility]a [facility] | Chills (without | | 2020 | | [address] | Waste Water Operator | fever); Erythema; | | | | [place], [place] | | Infected prosthetic | | | | [address] | | mesh of abdominal | | | | [phone] | | wall, initial | | | | | | encounter (HCC); | | | | | | Renal artery | | | | | | stenosis (HCC); | | | | | | 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 | + +--------+ + + + | URINALYSIS, | Routin | 09/21/2019 | | Results for this | | MICROSCOPIC ONLY | e | 11:18 AM | | procedure are in the | | | | PST | | results section. | + +--------+ + + + | CBC NO DIFFERENTIAL | Routin | 09/21/2019 | Chills (without | Results for this | | | e | 11:18 AM | fever) Erythema | procedure are in the | | | | PST | | results section. | + +--------+ + + + | COMPREHENSIVE | Routin | 09/21/2019 | Infected | Results for this | | METABOLIC PANEL | e | 11:18 AM | prosthetic mesh of | procedure are in the | | | | PST | abdominal wall, | results section. | | | | | initial encounter | | | | | | (HCC) | | + +--------+ + + + documented in this encounter Results Urinalysis, Microscopic Only (09/21/2019 11:18 AM PST) + + + + + + | Component | Value | Ref Range | Performed | Pathologist | | | | | At | Signature | + + + + + + | WBC UA | 0-2Comment: | 0 - 5 /hpf | REFERENCE | | | | | | LAB | | | | | | [facility] | | | | | | LABORATORY | | + + + + + + | Red Blood | 0-2 | 0 - 2 /hpf | REFERENCE | | | Cells, | | | LAB | | | Urine | | | [facility] | | | | | | LABORATORY | | + + + + + + | Squamous | NONE SEEN | /lpf | REFERENCE | | | Epithelial | | | LAB | | | Cells, | | | [facility] | | | Urine | | | LABORATORY | | + + + + + + | Bacteria, | NONE SEEN | NONE | REFERENCE | | | Urine | | | LAB | | | | | | [facility] | | | | | | LABORATORY | | + + + + + + | Mucus, | 1+ | | REFERENCE | | | Urine | | | LAB | | | | | | [facility] | | | | | | LABORATORY | | + + + + + + | CRYSTAL UA | SEE BELOWComment: 1+ | /hpf | REFERENCE | | | | CALCIUM OXALATETesting | | LAB | | | | performed at [facility] | | [facility] | | | | [place] | | LABORATORY | | | | Blvd;[place] [address] | | | | | | | | | | + + + + + + + + | Specimen | + + | | + + + + + + + | Performing | Address | City/State/Zipcode | Phone Number | | Organization | | | | + + + + + | REFERENCE LAB | [address] [place] [address] | [place], [place] | [phone] | | [facility] | Blvd. | [address] | | | LABORATORY | | | | + + + + + | REFERENCE LAB | [address] [facility] | [place], [place] | | | [facility] | Blvd. | [address] | | | LABORATORY | | | | + + + + + Comprehensive Metabolic Panel (09/21/2019 11:18 AM PST) [...] | | | | | | MDRD IDAL traceable | | | | | | equation.Testing | | | | | | performed at [facility] | | | | | | [facility] | | | | | | [facility];[place] [address] | | | | | | | | | | + + + + + + + + | Specimen | + + | Blood | + + + + + + + | Performing | Address | City/State/Zipcode | Phone Number | | Organization | | | | + + + + + | REFERENCE LAB | [address] [place] [address] | [place], [place] | [phone] | | [facility] | Blvd. | [address] | | | LABORATORY | | | | + + + + + | REFERENCE LAB | [address] [place] [address] | [place], [place] | | | [facility] | Blvd. | [address] | | | LABORATORY | | | [...] - 1.030 | REFERENCE | | | [place], | | | LAB | | | [...] + + | REFERENCE LAB | [address] [facility] | [place] | [phone] | | [facility] | Blvd. | [address] | | | LABORATORY | | | | + + + + + | REFERENCE LAB | [address] [facility] | [place] | | | [facility] | Blvd. | [address] | | | LABORATORY | | | | + + + + + CBC no Differential (09/21/2019 11:18 AM PST) [...] REFERENCE | | | | performed at [facility] | | LAB | | | | [place] | | [facility] | | | | Blvd;[place] [address] | | LABORATORY | | + + + + + + + + | Specimen | + + | Blood | + + + + + + + | Performing | Address | City/State/Zipcode | Phone Number | | Organization | | | | + + + + + | REFERENCE LAB | [address] [place] [address] | [place], [place] | [phone] | | [facility] | Blvd. | [address] | | | LABORATORY | | | | + + + + + | REFERENCE LAB | [address] [place] [address] | [place], [place] | | | [facility] | Blvd. 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
--- OUTSIDE RECORDS SUMMARY | ~2020-01-30 | XMS | Encounter Summary ---
Demographics + + + | Address | [address] | | | [place] [address] | + + + | Home Phone [...] Author | [facility] | | | and [place] | + + + | Organization | [facility] | [...] [place] | | | | | [address] | | + + + + + Care Team Providers + +------+ + | Care Grey Goods Examiner Name | Role | Phone | + +------+ + | Allison Fairchlid NP | PCP | | + +------+ [...] | | | | [address] [facility] | [place], [place] | | | | | [address] [place] | [address] | | | | | [address] | [phone] | | | | | [phone] | | | +--------+--------+ + + + [...]
--- OUTSIDE RECORDS SUMMARY | ~2020-01-30 | XMS | Encounter Summary ---
Demographics + + + | Address | [address] | | | [place] [address] | + + + | Home Phone | | + + + | Preferred Language | Unknown | + + + | Marital Status | | + + + | Yarsanism Affiliation | 1013 | + + + | Race | Unknown | + + + | Ethnic Group | Unknown | + + + Author + + + | Author | [facility] | | | and [place] | + + + | Organization | [facility] | | | and [place] | + + + | Address | Unknown | + + + | Phone | Unavailable | + + + Support + + + + + | Name | Relationship | Address | Phone | + + + + + | Teodora Cespedes | ECON | [address] | | | | | [place] | | | | | [address] | | + + + + + Care Team Providers + +------+ + | Care Drone Software Development Engineer Name | Role | Phone | + +------+ + PCP | Unavailable | + +------+ + Reason for Visit + + + | Reason | Comments | + + + | Appointment | | + + + Encounter Details +--------+ + + + + | Date | Type | Department | Care Team | Description | +--------+ + + + + | 09/11/ | Telephone | [facility] | Dc Naik MD | Appointment | | 2015 | | GASTROENTEROLOGY | [address], [place] | | | | | [address] [place] | [address] [place], [place] | | | | | [address] [place], [place] | [address] | | | | | [address] | | | | | | [phone] | | | +--------+ + + + [...]
--- OUTSIDE RECORDS SUMMARY | ~2020-01-30 | XMS | Encounter Summary ---
Demographics + + + | Address | [address] | | | [place] [address] | + + + | Home Phone | | + + + | Preferred Language | Unknown | + + + | Marital Status | | + + + | Jainism Affiliation | 1013 | + + + | Race | Unknown | + + + | Ethnic Group | Unknown | + + + Author + + + | Author | [facility] | | | and Alexana | + + + | Organization | [facility] | | | and Alexana [...] [place] | | | | | [address] | | + + + + + Care Team Providers + +------+ + | Care Band Manager Name | Role | Phone | [...] | | | | | | | [place] | | | | | | | ESOPHAGOGAST | | | | | | | RODUODENOSCO | | | | | | | PY TRANSORAL | | | | | | | DIAGNOSTIC | | | | | | | [place] EGD | | | | | | | TRANSORAL | | | | | | | BIOPSY | | | | | | | SINGLE/MULTI | | | | | | | PLE [place] | | | | | | | [...] + + + + | 11/18/ | Hospital | [facility] | Adrian Aponte MD | Nausea; Epigastric | | 2018 | Encounter | [facility] | [address] | pain; Early satiety; | | | | [address] | [place] | Abdominal pain, | | | | [place], [place] | [address] | generalized | | | | [address] | [phone] | | | | | [phone] | | | +--------+ + + + [...] | [facility] | | GastroenterologyPatient Name: Reza Vanegascedblanca Date: 11/18/2017 | PROVATION | | 8:29 AMMRN: [id number] #: [id number] of : | | | 1960Admit Type: AmbulatoryAge: 56Room: [facility] 01Gender: MaleNote | | | Status: FinalizedAttending MD: Adrian Aponte [facility]: | | | Upper GI endoscopyIndications: Epigastric abdominal | | | pain, Nausea with vomitingProviders: Adrian Aponte MD, | | | Caroline Beltran RN, Edyta Kilpatrick | | | Cabrera, Psychotherapist Counselor, CARMELLA MELO, | | | DO (Anesthesia [...] | | | the anesthesiologist and the parts technician in the pre-procedure | | | [...] | recommendations were discussed with the patient.Adrian Aponte | | | 11/18/2017 8:55:19 AMThis report has been signed | | | electronically.Number of Addenda: 0Note Initiated On: 11/18/2017 8:29 | | | AMTotal Procedure Duration: 0 hours 9 minutes 0 seconds Scope In: | | | 8:39:59 AMScope Out: 8:48:59 AM [facility] | | | [place], [address] [place] [id number] | | | - Await pathology results. [...] |Scope Out: 8:48:59 AM | | | [facility], [address] [place] [address] | | | [phone] | | + + -+ + +---------+ [...] for increased | | | epithelial eosinophils. JVR:[facility]:C2NR GROSS DESCRIPTION: | | | Received [...] submitted, all in (D1). | | | ka:JUWAN:zi PERFORMING LABORATORY: Tissue processing and slide | | | preparation were performed by [facility], [address] | | | [address], [place] [address] (Cast Associate: Alex Hathaway M.D. | | | CLIA#: [id number]). Professional interpretation was performed by | | | [facility], [facility], [address] [place] [address] (Cast Associate: Alex Hathaway, | | | Tre[place]; CLIA#: [id number]). Diagnostician: Alex Hathaway MD | | | [...] | Nausea Nausea alone | + + | Epigastric pain Abdominal pain, epigastric | + + | Early satiety | + + | Abdominal pain, generalized | + + documented in this encounter [...] glucose < 50, | | | Starting Thu11/18/17 at 0807, | | | Repeat in [...] ONCE | | | PRN, Nausea, Starting Thu11/18/17 | | | at 0855, For 1 dose, | | | Recovery/Phase I | | + +---+ | | | + +---+ documented in this encounter
--- OUTSIDE RECORDS SUMMARY | ~2020-01-30 | XMS | Encounter Summary ---
Demographics + + + | Address | [address] | | | [place] [address] | + + + | Home Phone [...] | Author | [facility] | | | and Alexana | + + + | Organization | [facility] | | | and Alexana [...] [place] | | | | | [address] | | + + + + + Care Team Providers + +------+ + | Care Field Ironworker Name | Role | Phone | + +------+ + PCP | Unavailable | + +------+ + Encounter Details +--------+ + + + + | Date | Type | Department | Care Team | Description | +--------+ + + + + | 08/28/ | Hospital | [facility] | Conversion | Pain | | 2014 | Encounter | CONVERSION [address] | Transaction, | | | | [address] | Provider Unknown | | | | | [place], [place] | | | | | | [address] | (Fax) | | | | | [phone] | | | +--------+ + + + [...] MRI LUMBAR SPINE WO | Routin | 08/22/2015 | | Results for this | | CONTRAST | e | 8:09 PM | | procedure are in the | | | | PST | | results section. | + +--------+ + + + documented in this encounter Results MRI Lumbar Spine wo Contrast (08/22/2015 8:09 PM PST) + + | Specimen | + + | | + + + + + | Narrative | Performed At | + + + | This is a non-reportable procedure without a radiologist report and | | | is used for image storage only | | + + + + + | Procedure Note | + + | Luis Long - 04/22/2019 4:20 AM PDT This is a non-reportable procedure | | without a radiologist report and isused for image storage only | + + documented in this encounter Visit Diagnoses + + | Diagnosis | + + | Pain Generalized pain | + + documented in this encounter"
--- OUTSIDE RECORDS SUMMARY | ~2020-01-30 | XMS | Encounter Summary ---
Demographics + + + | Address | [address] | | | [place] [address] | + + + | Home Phone | | + + + | Preferred Language | Unknown | + + + | Marital Status | | + + + | Faith Affiliation | 1013 | + + + | Race | Unknown | + + + | Ethnic Group | Unknown | + + + Author + + + | Author | [facility] | | | and Alexana | + + + | Organization | [facility] | | | [...] [place] | | | | | [address] | | + + + + + Care Team Providers + +------+ + | Care Seat Joiner Chainstitch Name | Role | Phone | + [...] | | | [place] | [place] | | | | | [address] | [address] | | | | | [phone] | [phone] | | | | | | | [...] [place] | | | | | | [address] | | | | + + + + + + | K | 5.6 (H)Comment: Testing | 3.5 - 4.9 | EXTERNAL | | | | performed at [facility] | mmol/L | LAB | | | | Health;[address] | | | | | | [place] | | | | | | [address] | | | | + + + + + + | Cl | 95 (L)Comment: Testing | 99 - 109 mmol/L | EXTERNAL | | | | performed at [facility] | | LAB | | | | Health;[address] | | | | | | [place] | | | | | | [address] | | | | + + + + + + | CO2 | 22 (L)Comment: Testing | 23 - 32 mmol/L | EXTERNAL | | | | performed at [facility] | | LAB | | | | Health;[address] | | | | | | [place] | | | | | | [address] | | | | + + + + + + | Anion Gap | 15Comment: Testing | 5 - 20 mmol/L | EXTERNAL | | | | performed at [facility] | | LAB | | | | Health;[address] | | | | | | [place] | | | | | | [address] | | | | + + + + + + | Glucose, | 126 (H)Comment: Testing | 65 - 99 mg/dL | EXTERNAL | | | Fasting | performed at [facility] | | LAB | | | | Health;[address] | | | | | | [place] | | | | | | [address] | | | | + + + + + + | BUN | 30 (H)Comment: Testing | 8 - 25 mg/dL | EXTERNAL | | | | performed at [facility] | | LAB | | | | Health;[address] | | | | | | [place] | | | | | | [address] | | | | + + + + + + | Creatinine | 1.2Comment: Testing | 0.70 - 1.30 | EXTERNAL | | | | performed at [facility] | mg/dL | LAB | | | | Health;[address] | | | | | | [place] | | | | | | [address] | | | | + + + + + + | BUN/Creatin | 25Comment: Testing | | EXTERNAL | | | ine Ratio | performed at [facility] | | LAB | | | | Health;[address] | | | | | | [place] | | | | | | [address] | | | | + + + + + + | Calcium | 9.9Comment: Testing | 8.5 - 10.2 | EXTERNAL | | | | performed at [facility] | mg/dL | LAB | | | | Health;[address] | | | | | | [place] | | | | | | [address] | | | | + + + + + + | Protein, | 7.7Comment: Testing | 6.3 - 8.2 g/dL | EXTERNAL | | | Total | performed at [facility] | | LAB | | | | Health;[address] | | | | | | [place] | | | | | | [address] | | | | + + + + + + | Albumin | 3.6Comment: Testing | 3.6 - 5.0 g/dL | EXTERNAL | | | | performed at [facility] | | LAB | | | | Health;[address] | | | | | | [place] | | | | | | [address] | | | | + + + + + + | Globulin | 4.1Comment: Testing | 1.3 - 4.9 g/dL | EXTERNAL | | | | performed at [facility] | | LAB | | | | Health;[address] | | | | | | [place] | | | | | | [address] | | | | + + + + + + | A/G Ratio | 0.9 (L)Comment: Testing | 1.0 - 2.4 | EXTERNAL | | | | performed at [facility] | | LAB | | | | Health;[address] | | | | | | [place] | | | | | | [address] | | | | + + + + + + | Bilirubin | 0.2Comment: Testing | 0.1 - 1.5 mg/dL | EXTERNAL | | | Total | performed at [facility] | | LAB | | | | Health;[address] | | | | | | [place] | | | | | | [address] | | | | + + + + + + | ALP, | 116 (H)Comment: Testing | 35 - 115 U/L | EXTERNAL | | | External | performed at [facility] | | LAB | | | | Health;[address] | | | | | | [place] | | | | | | [address] | | | | + + + + + + | AST | 58 (H)Comment: Testing | 10 - 45 U/L | EXTERNAL | | | | performed at [facility] | | LAB | | | | Health;[address] | | | | | | [place] | | | | | | [address] | | | | + + + + + + | ALT | 67 (H)Comment: Testing | 10 - 65 U/L | EXTERNAL | | | | performed at [facility] | | LAB | | | | Health;[address] | | | | | | [place] | | | | | | [address] | | | | + + + [...] | | | | | | at [facility];[address] | | | | | | [place] | | | | | | [address] | | | | + + + [...]
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
--- OUTSIDE RECORDS SUMMARY | ~2020-01-30 | XMS | Encounter Summary ---
Demographics + + + | Address | [address] | | | [place] [address] | + + + | Home Phone | | + + + | Preferred Language | Unknown | + + + | Marital Status | | + + + | Episcopalian Affiliation | 1013 | + + + | Race | Unknown | + + + | Ethnic Group | Unknown | + + + Author + + + | Author | [facility] | | | and [place] | + + + | Organization | [facility] | | | and [...] [place] | | | | | [address] | | + + + + + Care Team Providers + +------+ + | Care Rn Hospital Name | Role | Phone | + +------+ + | Allison Fairchild NP | PCP | | + +------+ + Encounter Details +--------+ + + + + | Date | Type | Department | Care Team | Description | +--------+ + + + + | 02/21/ | Hospital | [facility] | Conversion | Iliac artery | | 2019 | Encounter | [facility] [address] | Transaction, | dissection (HCC) | | | | [address] | Provider Unknown | | | | | [place] | [phone] | | | | | [address] | | | | | | [phone] | | | +--------+ + + + [...] + +--------+ + + + | CT ANGIOGRAM CHEST | Routin | 02/21/2019 | | Results for this | | ABDOMEN PELVIS | e | 2:34 PM | | procedure are in the | | | | PDT | | results section. | + +--------+ + + + documented in this encounter Results CT Angiogram Chest Abdomen Pelvis w Contrast (02/21/2019 2:34 PM PDT) + + | Specimen | + + | | + + + + + | Impressions | Performed At | + + + | 1. 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 2. 8 mm left lower lobe pulmonary nodule. | | | Pulmonary Nodule Follow Up Recommendation:Solid non-calcified lung | | | nodule 6-8 mm new from comparison imaging. Such nodules are common | | | and have a low malignant potential. Follow-up chest CT recommended in | | | 6 and 18 months with no further follow-up if stable. (Fleischner | | | society recommendation). 3. Postoperative changes of multiple prior | | | anterior abdominal wall hernia repairs, with small abdominal wall | | | hernia below the mesh. Signed by: Trevin Guevara Matthew Sign | | | Date/Time: 02/21/2019 4:44 PM | | + + + + + + | Narrative | Performed At | + + + | CT ANGIOGRAM CHEST ABDOMEN AND PELVIS CLINICAL INFORMATION: Iliac | | | artery dissection. COMPARISON: US ABDOMEN LIMITED (12/13/2018); MRI | | | MRCP LIVER WO CONTRAST (01/22/2018); ULTRASOUND ABDOMEN LIMITED | | | FOLLOWUP - [place] (01/22/2018); CT ABDOMEN PELVIS W CONTRAST | | | (01/21/2018); PROCEDURE: Axial images through the chest, abdomen and | | | pelvis after the administration of 100 ml Omnipaque 350 intravenous | | | contrast. 3D and multiplanar reconstructions were performed. At | | | least one of the following CT dose optimization techniques were used: | | | Automated exposure control; Adjustment of mA and/or kV according to | | | patient size; Use of iterative reconstruction technique. FINDINGS: | | | ARTERIES: There is no pulmonary embolism. There is 3 vessel aortic | | | arch. There is conventional hepatic arterial anatomy. There are | | | single renal arteries bilaterally. The caliber of the renal arteries | | | is normal bilaterally. The abdominal aorta is normal in course and | | | caliber. There is minimal atherosclerosis of the distal abdominal | | | aorta and common iliac arteries. There is a dissection of the right | | | anterior iliac artery which extends from its origin 2 the common | | | femoral artery. The remainder of the aortic branch vessels are | | | normal. CHEST Lungs, Pleura and Airways: There is an 8 mm left lower | | | lobe pulmonary nodule (series 5, image 39). There by basilar | | | atelectasis or scarring. No significant pulmonary abnormality. No | | | airway narrowing or obstruction. No pleural effusion or pneumothorax. | | | Mediastinum: No significant pericardial, great vessel or esophageal | | | abnormality. No mediastinal mass. Lymph Nodes: No adenopathy. | | | ABDOMEN Liver and Biliary: The gallbladder is surgically absent. | | | There is no intra or extrahepatic biliary duct dilation. No | | | significant liver abnormality. Pancreas, Spleen and Adrenals: No | | | pancreatitis or pancreatic mass. No splenomegaly, splenic mass or | | | splenic hemorrhage. No significant adrenal abnormality. Kidneys: No | | | hydronephrosis, calculus or solid renal mass. There are | | | low-attenuation lesions in the left kidney most of which are too small | | | to characterize by CT the largest of which is a cyst. ABDOMEN AND | | | PELVIS Bowel: no small bowel or colonic dilation or adjacent | | | inflammation. No appendiceal dilation or inflammation. Veins: No | | | significant abnormality in the portal veins, mesenteric veins or | | | systemic veins. Lymph Nodes: No adenopathy. Peritoneum and | | | Retroperitoneum: No intraperitoneal free air, ascites or peritoneal | | | mass. No significant retroperitoneal abnormality. PELVIS | | | Genitourinary: Distal ureters and bladder appear normal. No pelvic | | | masses. There are bilateral fat containing inguinal hernias. BODY | | | WALL Soft Tissues: Postoperative changes of prior abdominal wall | | | hernia repair with mesh are noted. There is a rectus diastasis with | | | a small midline abdominal wall hernia. No hernia, mass or | | | hemorrhage. Bones: No acute fracture or vertebral end plate | | | destruction. No lytic or blastic lesion. Postoperative changes of | | | prior right iliac fracture with internal fixation and right | | | sacroiliac joint fixation are noted. Healed right superior and | | | inferior pubic ramus fractures are noted. There is age indeterminate | | | central height loss of approximately 50% of the L4 vertebral body. | | + + + + + | Procedure Note | + + | Ethan, Rad Conversion - 04/19/2019 8:[address] ANGIOGRAM CHEST ABDOMEN AND PELVIS | | CLINICAL INFORMATION: | | Iliac artery dissection. | | COMPARISON: | | US ABDOMEN LIMITED (12/13/2018); MRI MRCP LIVER WO CONTRAST (01/22/2018); | | ULTRASOUND ABDOMEN LIMITED [facility] (01/22/2018); CT ABDOMEN | | PELVIS W CONTRAST (01/21/2018); | | PROCEDURE: | | Axial images through the chest, abdomen and pelvis after the | | administration of 100 ml Omnipaque 350 intravenous contrast. 3D and | | multiplanar reconstructions were performed. | | At least one of the following CT dose optimization techniques were | | used: Automated exposure control; Adjustment of mA and/or kV according | | to patient size; Use of iterative reconstruction technique. | | FINDINGS: | | ARTERIES: There is no pulmonary embolism. There is 3 vessel aortic | | arch. There is conventional hepatic arterial anatomy. There are | | single renal arteries bilaterally. The caliber of the renal arteries | | is normal bilaterally. The abdominal aorta is normal in course and | | caliber. There is minimal atherosclerosis of the distal abdominal | | aorta and common iliac arteries. There is a dissection of the right | | anterior iliac artery which extends from its origin 2 the common | | femoral artery. The remainder of the aortic branch vessels are normal. | | CHEST | | Lungs, Pleura and Airways: There is an 8 mm left lower lobe pulmonary | | nodule (series 5, image 39). There by basilar atelectasis or scarring. | | No significant pulmonary abnormality. No airway narrowing or | | obstruction. No pleural effusion or pneumothorax. | | Mediastinum: No significant pericardial, great vessel or esophageal | | abnormality. No mediastinal mass. | | Lymph Nodes: No adenopathy. | | ABDOMEN | | Liver and Biliary: The gallbladder is surgically absent. There is no | | intra or extrahepatic biliary duct dilation. No significant liver | | abnormality. | | Pancreas, Spleen and Adrenals: No pancreatitis or pancreatic mass. No | | splenomegaly, splenic mass or splenic hemorrhage. No significant | | adrenal abnormality. | | Kidneys: No hydronephrosis, calculus or solid renal mass. There are | | low-attenuation lesions in the left kidney most of which are too small | | to characterize by CT the largest of which is a cyst. | | ABDOMEN AND PELVIS | | Bowel: no small bowel or colonic dilation or adjacent inflammation. No | | appendiceal dilation or inflammation. | | Veins: No significant abnormality in the portal veins, mesenteric veins | | or systemic veins. | | Lymph Nodes: No adenopathy. | | Peritoneum and Retroperitoneum: No intraperitoneal free air, ascites or | | peritoneal mass. No significant retroperitoneal abnormality. | | PELVIS | | Genitourinary: Distal ureters and bladder appear normal. No pelvic | | masses. There are bilateral fat containing inguinal hernias. | | BODY WALL | | Soft Tissues: Postoperative changes of prior abdominal wall hernia | | repair with mesh are noted. There is a rectus diastasis with a small | | midline abdominal wall hernia. No hernia, mass or hemorrhage. | | Bones: No acute fracture or vertebral end plate destruction. No lytic | | or blastic lesion. Postoperative changes of prior right iliac fracture | | with internal fixation and right sacroiliac joint fixation are noted. | | Healed right superior and inferior pubic ramus fractures are noted. | | There is age indeterminate central height loss of approximately 50% of | | the L4 vertebral body. | | IMPRESSION: | | 1. 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 | | 2. 8 mm left lower lobe pulmonary nodule. Pulmonary Nodule Follow Up | | Recommendation:Solid non-calcified lung nodule 6-8 mm new from | | comparison imaging. Such nodules are common and have a low malignant | | potential. Follow-up chest CT recommended in 6 and 18 months with no | | further follow-up if stable. (Krisischner society recommendation). | | 3. Postoperative changes of multiple prior anterior abdominal wall | | hernia repairs, with small abdominal wall hernia below the mesh. | | Signed by: Trevin Guevara Matthew | | Sign Date/Time: 02/21/2019 4:44 PM | + + documented in this encounter Visit Diagnoses + + | Diagnosis | + + | Iliac artery dissection (HCC) Dissection of iliac artery | + + documented in this encounter"
--- OUTSIDE RECORDS SUMMARY | ~2020-01-30 | XMS | Encounter Summary ---
Demographics + + + | Address | [address] | | | [place] [address] | + + + | Home Phone | | + + + | Preferred Language | Unknown | + + + | Marital Status | | + + + | Zoroastrianism Affiliation | 1013 | + + + | Race | Unknown | + + + | Ethnic Group | Unknown | + + + Author + + + | Author | [facility] | | | and [place] | + + + | Organization | [facility] | | | and [...] [place] | | | | | [address] | | + + + + + Care Team Providers + +------+ + | Care Etcher Hand Name | Role | Phone | + [...] | +--------+ + + + + | 09/13/ | Telephone | [facility] | Anival Stevenson MD | Appointment | | 2020 | | GENERAL SURGERY [address] | [address] | | | | | [address] | [address] [place], [place] | | | | | [place], [place] | [address] | | | | | [address] | | | | | | [phone] | | | +--------+ + + + [...]
--- OUTSIDE RECORDS SUMMARY | ~2020-01-30 | XMS | Encounter Summary ---
Demographics + + + | Address | [address] | | | [place] [address] | + + + | Home Phone | | + + + | Preferred Language | Unknown | + + + | Marital Status | | + + + | Advent Affiliation | 1013 | + + + | Race | Unknown | + + + | Ethnic Group | Unknown | + + + Author + + + | Author | [facility] | | | and [place] | + + + | Organization | [facility] | | [...] [place] | | | | | [address] | | + + + + + Care Team Providers + +------+ + | Care Ceramic Plater Name | Role | Phone | + +------+ + | Allison Fairchild NP | PCP | | + +------+ + Encounter Details +--------+ + + + + | Date | Type | Department | Care Team | Description | +--------+ + + + + | 10/20/ | Episode | [facility] | Anna Rodriguez, | | | 2018 | Changes | GASTROENTEROLOGY | RN | | | | | [address] | | | | | | [address] [place] | | | | | | [address] | | | | | | [phone] | | | +--------+ + + + [...]
--- OUTSIDE RECORDS SUMMARY | ~2020-01-30 | XMS | Encounter Summary ---
Demographics + + + | Address | [address] | | | [place] [address] | + + + | Home Phone | | + + + | Preferred Language | Unknown | + + + | Marital Status | | + + + | Episcopalian Affiliation | 1013 | + + + | Race | Unknown | + + + | Ethnic Group | Unknown | + + + Author + + + | Author | [facility] | | | and [place] | + + + | Organization | [facility] [...] [place] | | | | | [address] | | + + + + + Care Team Providers + +------+ + | Care Ordinary Seaman Name | Role | Phone | + +------+ + | Allison Fairchild NP | PCP | | + +------+ + Encounter Details +--------+ + + + + | Date | Type | Department | Care Team | Description | +--------+ + + + + | 12/13/ | Hospital | [facility] | Conversion | 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
--- OUTSIDE RECORDS SUMMARY | ~2020-01-30 | XMS | Encounter Summary ---
Demographics + + + | Address | [address] | | | [place] [address] | + + + | Home Phone | | + + + | Preferred Language | Unknown | + + + | Marital Status | | + + + | Roman Catholic Affiliation | 1013 | + + + | Race | Unknown | + + + | Ethnic Group | Unknown | + + + Author + + + | Author | [facility] | | | and [place] | + + + | Organization | [facility] | [...] [place] | | | | | [address] | | + + + + + Care Team Providers + +------+ + | Care Securities Attorney Name | Role | Phone | + [...] | | | | EMERGENCY CENTER | [place] [address] | without sciatica; | | 03/04/ | | [address] | [phone] | Lower abdominal pain | | 2016 | | [place], [place] | | | | | | [address] | | | | | | [phone] | | | +--------+ + + + [...] 2:46AM | | | Referring Provider Line: [phone] ID: [id number] | | + + + [...] Alignment: Unremarkable. | | | Bones: Five ste-pfg-uqlavzv lumbar vertebral bodies are present. | | [...] technique. FINDINGS:Alignment: | | Unremarkable. Bones: Five iyc-dbj-xequrfi lumbar vertebral bodies are present. | | [...] 2016 2:46AM Referring | | Provider Line: [phone] ID: [id number] | | | |L1-L2: Minimal [...] 04 2016 2:46AM Referring Provider Line: [phone] ID: [id number] | + + CT Abdomen [...] | | | 2:30AM Referring Provider Line: [phone] ID: [id number] | | + + + [...] 2016 2:30AM | | Referring Provider Line: [phone] ID: [id number] | |Adrenal Glands: Normal. | [...] 04 2016 2:30AM Referring Provider Line: [phone] ID: [id number] | + + Lactic Acid (03/04/2016 12:16 AM PDT) + + + + + + | Component | Value | Ref Range | Performed | Pathologist | | | | | At | Signature | + + + + + + | Lactate | 1.0Comment: Testing | 0.4 - 2.0 | EXTERNAL | | | | performed at [facility];888 | mmol/L | LAB | | | | [address];[place] | | | | | | [address] | | | | + + + [...] EXTERNAL | | | | performed at [facility];888 | | LAB | | | | [address];[place], [place] | | | | | | [address] [...] EXTERNAL | | | | performed at [facility];888 | K/uL | LAB | | | | [address];[place] | | | | | | [address] | | | | + + + + + + | Red Blood | 5.01Comment: Testing | 4.20 - 5.70 | EXTERNAL | | | Cells | performed at [facility];888 | M/uL | LAB | | | Counted | [address];[place] | | | | | | [address] | | | | + + + + + + | Hemoglobin | 15.5Comment: Testing | 13.2 - 17.0 | EXTERNAL | | | | performed at [facility];888 | g/dL | LAB | | | | [address];[place] | | | | | | [address] | | | | + + + + + + | Hematocrit, | 46.2Comment: Testing | 39.0 - 50.0 % | EXTERNAL | | | POC | performed at [facility];[address] | | LAB | | | | [address];[place] | | | | | | [address] | | | | + + + + + + | MCV | 92.2Comment: Testing | 80.0 - 100.0 fl | EXTERNAL | | | | performed at [facility];[address] | | LAB | | | | [address];[place] | | | | | | [address] | | | | + + + + + + | MCH | 30.9Comment: Testing | 27.0 - 34.0 pg | EXTERNAL | | | | performed at [facility];[address] | | LAB | | | | [address];[place] | | | | | | [address] | | | | + + + + + + | MCHC | 33.6Comment: Testing | 32.0 - 35.5 | EXTERNAL | | | | performed at [facility];888 | g/dL | LAB | | | | [address];[place] | | | | | | [address] | | | | + + + + + + | RDW-CV | 46.8Comment: Testing | 37 - 53 fl | EXTERNAL | | | | performed at [facility];[address] | | LAB | | | | [address];[place] | | | | | | [address] | | | | + + + + + + | Platelet | 286Comment: Testing | 150 - 400 K/uL | EXTERNAL | | | Count | performed at [facility];888 | | LAB | | | Plasma | [address];[place] | | | | | | [address] | | | | + + + + + + | MPV | 8.4Comment: Testing | fl | EXTERNAL | | | | performed at [facility];[address] | | LAB | | | | [address];[place] | | | | | | [address] | | | | + + + + + + | Differentia | AUTOMATEDComment: | | EXTERNAL | | | l Type | Testing performed at | | LAB | | | | [facility];[address];[place] [address] | | | | + + + + + + | % Segmented | 54.43Comment: Testing | % | EXTERNAL | | | | performed at [facility];888 | | LAB | | | Neutrophils | [address];[place] | | | | | | [address] | | | | + + + + + + | % | 36.35Comment: Testing | % | EXTERNAL | | | Lymphocytes | performed at [facility];[address] | | LAB | | | | [address];[place] | | | | | | [address] | | | | + + + + + + | % Monocytes | 6.73Comment: Testing | % | EXTERNAL | | | | performed at [facility];[address] | | LAB | | | | [address];[place] | | | | | | [address] | | | | + + + + + + | % | 1.39Comment: Testing | % | EXTERNAL | | | Eosinophils | performed at [facility];[address] | | LAB | | | | [address];[place] | | | | | | [address] | | | | + + + + + + | % Basophils | 1.10Comment: Testing | % | EXTERNAL | | | | performed at [facility];[address] | | LAB | | | | [address];[place] | | | | | | [address] | | | | + + + + + + | Absolute | 5.93Comment: Testing | 1.90 - 7.40 | EXTERNAL | | | Segmented | performed at [facility];888 | K/uL | LAB | | | Neutrophils | [address];[place] | | | | | | [address] | | | | + + + + + + | Absolute | 3.96 (H)Comment: Testing | 1.00 - 3.90 | EXTERNAL | | | Lymphocytes | performed at [facility];888 | K/uL | LAB | | | | [address];[place] | | | | | | [address] | | | | + + + + + + | Absolute | 0.73Comment: Testing | 0.00 - 0.80 | EXTERNAL | | | Monocytes | performed at [facility];888 | K/uL | LAB | | | | [address];[place] | | | | | | [address] | | | | + + + + + + | Absolute | 0.15Comment: Testing | 0.00 - 0.50 | EXTERNAL | | | Eosinophils | performed at [facility];888 | K/uL | LAB | | | | [address];[place] | | | | | | [address] | | | | + + + + + + | Absolute | 0.12 (H)Comment: Testing | 0.00 - 0.10 | EXTERNAL | | | Basophils | performed at [facility];888 | K/uL | LAB | | | | [address];[place] | | | | | | [address] | | | | + + + [...] EXTERNAL | | | | performed at [facility] | | LAB | | | | [address] [facility];[place], [place] | | | | | | [address] | | | | + + + [...] LAB | | | | performed at [facility] | | | | | | [address];[place], [place] | | | | | | [address] | | | | + + + + + + | K | 3.8Comment: Testing | 3.5 - 4.9 | EXTERNAL | | | | performed at [facility];888 | mmol/L | LAB | | | | [address];[place] | | | | | | [address] | | | | + + + + + + | Cl | 110 (H)Comment: Testing | 99 - 109 mmol/L | EXTERNAL | | | | performed at [facility];[address] | | LAB | | | | [address];[place] | | | | | | [address] | | | | + + + + + + | CO2 | 25Comment: Testing | 23 - 32 mmol/L | EXTERNAL | | | | performed at [facility];[address] | | LAB | | | | [address];[place] | | | | | | [address] | | | | + + + + + + | Anion Gap | 8Comment: Testing | 5 - 20 mmol/L | EXTERNAL | | | | performed at [facility];[address] | | LAB | | | | [address];[place] | | | | | | [address] | | | | + + + + + + | Glucose, | 96Comment: Testing | 65 - 99 mg/dL | EXTERNAL | | | Fasting | performed at [facility];[address] | | LAB | | | | [address];[place] | | | | | | [address] | | | | + + + + + + | BUN | 19Comment: Testing | 8 - 25 mg/dL | EXTERNAL | | | | performed at [facility];[address] | | LAB | | | | [address];[place] | | | | | | [address] | | | | + + + + + + | Creatinine | 1.0Comment: Testing | 0.70 - 1.30 | EXTERNAL | | | | performed at [facility];888 | mg/dL | LAB | | | | [address];[place] | | | | | | [address] | | | | + + + + + + | BUN/Creatin | 19Comment: Testing | | EXTERNAL | | | ine Ratio | performed at [facility];888 | | LAB | | | | [address];[place] | | | | | | [address] | | | | + + + + + + | Calcium | 9.1Comment: Testing | 8.5 - 10.5 | EXTERNAL | | | | performed at [facility];888 | mg/dL | LAB | | | | [address];[place] | | | | | | [address] | | | | + + + + + + | Protein, | 7.5Comment: Testing | 6.3 - 8.2 g/dL | EXTERNAL | | | Total | performed at [facility];[address] | | LAB | | | | [address];[place] | | | | | | [address] | | | | + + + + + + | Albumin | 3.9Comment: Testing | 3.6 - 5.0 g/dL | EXTERNAL | | | | performed at [facility];[address] | | LAB | | | | [address];[place] | | | | | | [address] | | | | + + + + + + | Globulin | 3.6Comment: Testing | 1.3 - 4.9 g/dL | EXTERNAL | | | | performed at [facility];[address] | | LAB | | | | [address];[place] | | | | | | [address] | | | | + + + + + + | A/G Ratio | 1.1Comment: Testing | 1.0 - 2.4 | EXTERNAL | | | | performed at [facility];[address] | | LAB | | | | [address];[place] | | | | | | [address] | | | | + + + + + + | Bilirubin | 0.5Comment: Testing | 0.1 - 1.5 mg/dL | EXTERNAL | | | Total | performed at [facility];[address] | | LAB | | | | [address];[place] | | | | | | [address] | | | | + + + + + + | ALP, | 98Comment: Testing | 35 - 115 U/L | EXTERNAL | | | External | performed at [facility];[address] | | LAB | | | | [address];[place] | | | | | | [address] | | | | + + + + + + | AST | 45Comment: Testing | 10 - 45 U/L | EXTERNAL | | | | performed at [facility];[address] | | LAB | | | | [address];[place] | | | | | | [address] | | | | + + + + + + | ALT | 48Comment: Testing | 10 - 65 U/L | EXTERNAL | | | | performed at [facility];[address] | | LAB | | | | [address];[place] | | | | | | [address] | | | | + + + [...] | | | | | | at [facility];[address] [place] [address] | | | | | | [facility];[place] [address] | | | | + + + [...]
--- OUTSIDE RECORDS SUMMARY | ~2020-01-30 | XMS | Encounter Summary ---
Demographics + + + | Address | [address] | | | [place] [address] | + + + | Home Phone [...] + | Author | [facility] | | | and [place] | + + + | Organization | [facility] [...] 8TH | | | | | [facility] [place] | | | | | [address] | | + + + + + Care Team Providers + +------+ + | Care Publications Designer Name | Role | Phone | + +------+ + PCP | Unavailable | + +------+ + Encounter Details +--------+ + + + + | Date | Type | Department | Care Team | Description | +--------+ + + + + | 06/29/ | Hospital | [facility] | Conversion | | | 2013 | Encounter | [facility] | Transaction, | | | | | CLINIC [address] | Provider Unknown | | | | | [place], [place] | | | | | | [address] | (Fax) | | | | | [phone] | | | +--------+ + + + [...] | EXTERNAL LAB: CBC | Routin | 06/29/2014 | | Results for this | | | e | 1:38 PM | | procedure are in the | | | | PDT | | results section. | + +--------+ + + + | BASIC METABOLIC | Routin | 06/29/2014 | | Results for this | | PANEL | e | 1:38 PM | | procedure are in the | | | | PDT | | results section. | + +--------+ + + + documented in this encounter Results External Lab: CBC (06/29/2014 1:38 PM PDT) + + + + + + | Component | Value | Ref Range | Performed | Pathologist | | | | | At | Signature | + + + + + + | WBC | 9.5Comment: Testing | 3.8 - 11.0 K/uL | EXTERNAL | | | | performed at [facility], [address] | | LAB | | | | [address], | | | | | | [place] [address] | | | | + + + + + + | Red Blood | 4.52Comment: Testing | 4.20 - 5.70 | EXTERNAL | | | Cells | performed at [facility], [address] | M/uL | LAB | | | Counted | [address], | | | | | | [place] [address] | | | | + + + + + + | Hemoglobin | 13.9Comment: Testing | 13.2 - 17.0 | EXTERNAL | | | | performed at [facility], [address] | g/dL | LAB | | | | [address], | | | | | | [place] [address] | | | | + + + + + + | Hematocrit, | 41.5Comment: Testing | 39.0 - 50.0 % | EXTERNAL | | | POC | performed at [facility], [address] | | LAB | | | | [address], | | | | | | [place] [address] | | | | + + + + + + | MCV | 91.9Comment: Testing | 80.0 - 100.0 fl | EXTERNAL | | | | performed at [facility], [address] | | LAB | | | | [address], | | | | | | [place] [address] | | | | + + + + + + | MCH | 30.7Comment: Testing | 27.0 - 34.0 pg | EXTERNAL | | | | performed at [facility], [address] | | LAB | | | | [address], | | | | | | [place] [address] | | | | + + + + + + | MCHC | 33.4Comment: Testing | 32.0 - 35.5 | EXTERNAL | | | | performed at [facility], [address] | g/dL | LAB | | | | [address], | | | | | | [place] [address] | | | | + + + + + + | RDW-CV | 47.3Comment: Testing | 37 - 53 fl | EXTERNAL | | | | performed at [facility], [address] | | LAB | | | | [address], | | | | | | [place] [address] | | | | + + + + + + | Platelet | 290Comment: Testing | 150 - 400 K/uL | EXTERNAL | | | Count | performed at [facility], [address] | | LAB | | | Plasma | [address], | | | | | | [place] [address] | | | | + + + + + + | MPV | 8.8Comment: Testing | fl | EXTERNAL | | | | performed at [facility], [address] | | LAB | | | | [address], | | | | | | [place] [address] | | | | + + + + + + | Differentia | AUTOMATEDComment: | | EXTERNAL | | | l Type | Testing performed at | | LAB | | | | [facility], [address] | | | | | | [place] | | | | | | [address] | | | | + + + + + + | % Segmented | 57.5Comment: Testing | % | EXTERNAL | | | | performed at [facility], [address] | | LAB | | | Neutrophils | [address], | | | | | | [place] [address] | | | | + + + + + + | % | 30.3Comment: Testing | % | EXTERNAL | | | Lymphocytes | performed at [facility], [address] | | LAB | | | | [address], | | | | | | [place] [address] | | | | + + + + + + | % Monocytes | 9.0Comment: Testing | % | EXTERNAL | | | | performed at [facility], [address] | | LAB | | | | [address], | | | | | | [place] [address] | | | | + + + + + + | % | 2.1Comment: Testing | % | EXTERNAL | | | Eosinophils | performed at [facility], [address] | | LAB | | | | [address], | | | | | | [place] [address] | | | | + + + + + + | % Basophils | 1.1Comment: Testing | % | EXTERNAL | | | | performed at [facility], [address] | | LAB | | | | [address], | | | | | | [place] [address] | | | | + + + + + + | Absolute | 5.5Comment: Testing | 1.9 - 7.4 K/uL | EXTERNAL | | | Segmented | performed at [facility], [address] | | LAB | | | Neutrophils | [address], | | | | | | [place] [address] | | | | + + + + + + | Absolute | 2.9Comment: Testing | 1.0 - 3.9 K/uL | EXTERNAL | | | Lymphocytes | performed at [facility], [address] | | LAB | | | | [address] [place], | | | | | | [place] [address] | | | | + + + + + + | Absolute | 0.9 (H)Comment: Testing | 0 - 0.8 K/uL | EXTERNAL | | | Monocytes | performed at [facility], [address] | | LAB | | | | [address], | | | | | | [place] [address] | | | | + + + + + + | Absolute | 0.2Comment: Testing | 0 - 0.5 K/uL | EXTERNAL | | | Eosinophils | performed at [facility], [address] | | LAB | | | [address], | | | | | | [place] [address] | | | | + + + + + + | Absolute | 0.1Comment: Testing | 0 - 0.1 K/uL | EXTERNAL | | | Basophils | performed at [facility], [address] | | LAB | | | | [address], | | | | | | [place] [address] | | | | + + + [...] + +---------+ + + Basic Metabolic Panel (06/29/2014 1:38 PM PDT) + + + + [...] | | | | | [place] [address] | | | | + + + + + + | K | 4.4Comment: Testing | 3.5 - 4.9 | EXTERNAL | | | | performed at [facility], [address] | mmol/L | LAB | | | | [address], | | | | | | [place] [address] | | | | + + + + + + | Cl | 104Comment: Testing | 99 - 109 mmol/L | EXTERNAL | | | | performed at [facility], [address] | | LAB | | | | [address], | | | | | | [place] [address] | | | | + + + + + + | CO2 | 27Comment: Testing | 23 - 32 mmol/L | EXTERNAL | | | | performed at [facility], [address] | | LAB | | | | [address], | | | | | | [place] [address] | | | | + + + + + + | Anion Gap | 8Comment: Testing | 5 - 20 mmol/L | EXTERNAL | | | | performed at [facility], [address] | | LAB | | | | [address], | | | | | | [place] [address] | | | | + + + + + + | Glucose, | 111 (H)Comment: Testing | 65 - 99 mg/dL | EXTERNAL | | | Fasting | performed at [facility], [address] | | LAB | | | | [address], | | | | | | [place] [address] | | | | + + + + + + | BUN | 13Comment: Testing | 8 - 25 mg/dL | EXTERNAL | | | | performed at [facility], [address] | | LAB | | | | [address], | | | | | | [place] [address] | | | | + + + + + + | Creatinine | 0.92Comment: Testing | 0.70 - 1.30 | EXTERNAL | | | | performed at [facility], [address] | mg/dL | LAB | | | | [address], | | | | | | [place] [address] | | | | + + + + + + | BUN/Creatin | 14Comment: Testing | | EXTERNAL | | | ine Ratio | performed at [facility], [address] | | LAB | | | | [address], | | | | | | [place] [address] | | | | + + + + + + | Calcium | 9.4Comment: Testing | 8.5 - 10.2 | EXTERNAL | | | | performed at [facility], [address] | mg/dL | LAB | | | | [address] [facility], | | | | | | [place] [address] | | | | + + + [...] | | | | | | at [facility], [address] | | | | | | [employer] [address], | | | | | | [place] [address] | | | | + + + [...]
--- OUTSIDE RECORDS SUMMARY | ~2020-01-30 | XMS | Encounter Summary ---
Demographics + + + | Address | [address] | | | [place] [address] | + + + | Home Phone | | + + + | Preferred Language | Unknown | + + + | Marital Status | | + + + | Amish Affiliation | 1013 | + + + | Race | Unknown | + + + | Ethnic Group | Unknown | + + + Author + + + | Author | [facility] | | | and [place] | + + + | Organization | [facility] | | | and [...] [place] | | | | | [address] | | + + + + + Care Team Providers + +------+ + | Care Mechanical Oxidizer Name | Role | Phone | + +------+ + | Allison Fairchild NP | PCP | | + +------+ + Encounter Details +--------+ + + + + | Date | Type | Department | Care Team | Description | +--------+ + + + + | 05/31/ | Telephone | [facility] | Rich Washington MD | | | 2019 | | CENTER [facility] | [address] | | | | | [address] | [place], [place] | | | | | [place], [place] | [address] | | | | | [address] | [phone] | | | | | [phone] | | | +--------+ + + + [...]
--- OUTSIDE RECORDS SUMMARY | ~2020-01-30 | XMS | Encounter Summary ---
Demographics + + + | Address | [address] | | | [place] [address] | + + + | Home Phone | | + + + | Preferred Language | Unknown | + + + | Marital Status | | + + + | Latter-Day Affiliation | 1013 | + + + | Race | Unknown | + + + | Ethnic Group | Unknown | + + + Author + + + | Author | [facility] | | | and [place] | + + + | Organization | [facility] | [...] [place] | | | | | [address] | | + + + + + Care Team Providers + +------+ + | Care Lineman A Class Name | Role | Phone | + [...] | | | [address] | [place] | | | | | [address] | [address] | | | | | [phone] | [phone] | | | | | | | [...] | + +--------+ + + + | FERRITIN | Routin | 01/01/2015 | | Results for this | | | e | 2:15 PM | | procedure are in the | | | | PDT | | results section. | + +--------+ + + + documented in this encounter Results Ferritin (01/01/2015 2:15 PM PDT) + + + + + + | Component | Value | Ref Range | Performed | Pathologist | | | | | At | Signature | + + + + + + | Ferritin, | 184Comment: Testing | 11 - 450 ng/mL | EXTERNAL | | | External | performed at [facility];[address] | | LAB | | | | [address] | | | | | | [address];[place] [address] | | | | + + + [...]
--- OUTSIDE RECORDS SUMMARY | ~2020-01-30 | XMS | Encounter Summary ---
Demographics + + + | Address | [address] | | | [place] [address] | + + + | Home Phone [...] Author | [facility] | | | and [place] | + + + | Organization | [facility] | | | and [place] | + + + | Address | Unknown | + + + | Phone | Unavailable | + + + Support + + + + + | Name | Relationship | Address | Phone | + + + + + | Teodora Cespedes | ECON | [address] | | | | | [facility], [place] | | | | | [address] | | + + + + + Care Team Providers + +------+ + | Care Baling Machine Tender Name | Role | Phone | + +------+ + PCP | Unavailable | + +------+ + Encounter Details +--------+ + + + + | Date | Type | Department | Care Team | Description | +--------+ + + + + | 09/27/ | Abstract | [facility] | Adrian Aponte MD | | | 2016 | | GASTROENTEROLOGY | [address] | | | | | [address] [facility] | [place], [place] | | | | | [address] | [address] | | | | | [address] | [phone] | | | | | [phone] | | | +--------+ + + + + Social History + +-------+ +--------+------+ | Tobacco Use | Types | Packs/Day | Years | Date | | | | | Used | | + +-------+ +--------+------+ | Current Every Day | | | | | | Smoker | | | | | + +-------+ +--------+------+ + + +---------+ + | Alcohol Use [...] +--------+ + + + | EXTERNAL LAB: CARLOS | Routin | 10/10/2013 | | Results for this | | | e | | | procedure are in the | | | | | | results section. | + +--------+ + + + | EXTERNAL LAB: | Routin | 10/10/2013 | | Results for this | | GLUCOSE | e | | | procedure are in the | | | | | | results section. | + +--------+ + + + | EXTERNAL LAB: ALT | Routin | 10/10/2013 | | Results for this | | | e | | | procedure are in the | | | | | | results section. | + +--------+ + + + | EXTERNAL LAB: AST | Routin | 10/10/2013 | | Results for this | | | e | | | procedure are in the | | | | | | results section. | + +--------+ + + + | EXTERNAL LAB: | Routin | 10/10/2013 | | Results for this | | ALKALINE PHOSPHATASE | e | | | procedure are in the | | | | | | results section. | + +--------+ + + + | EXTERNAL LAB: | Routin | 10/10/2013 | | Results for this | | BILIRUBIN, TOTAL | e | | | procedure are in the | | | | | | results section. | + +--------+ + + + | EXTERNAL LAB: | Routin | 10/10/2013 | | Results for this | | ALBUMIN | e | | | procedure are in the | | | | | | results section. | + +--------+ + + + | EXTERNAL LAB: | Routin | 10/10/2013 | | Results for this | | PROTEIN, TOTAL | e | | | procedure are in the | | | | | | results section. | + +--------+ + + + | EXTERNAL LAB: | Routin | 10/10/2013 | | Results for this | | CALCIUM | e | | | procedure are in the | | | | | | results section. | + +--------+ + + + | EXTERNAL LAB: CARBON | Routin | 10/10/2013 | | Results for this | | DIOXIDE | e | | | procedure are in the | | | | | | results section. | + +--------+ + + + | EXTERNAL LAB: | Routin | 10/10/2013 | | Results for this | | CHLORIDE | e | | | procedure are in the | | | | | | results section. | + +--------+ + + + | EXTERNAL LAB: | Routin | 10/10/2013 | | Results for this | | POTASSIUM | e | | | procedure are in the | | | | | | results section. | + +--------+ + + + | EXTERNAL LAB: SODIUM | Routin | 10/10/2013 | | Results for this | | | e | | | procedure are in the | | | | | | results section. | + +--------+ + + + | EXTERNAL LAB: CBC | Routin | 10/10/2013 | | Results for this | | | e | | | procedure are in the | | | | | | results section. | + +--------+ + + + | EXTERNAL LAB: EGFR | Routin | 10/10/2013 | | Results for this | | | e | | | procedure are in the | | | | | | results section. | + +--------+ + + + | EXTERNAL LAB: | Routin | 10/10/2013 | | Results for this | | CREATININE | e | | | procedure are in the | | | | | | results section. | + +--------+ + + + | CBC WITH | Routin | 10/10/2013 | | Results for this | | DIFFERENTIAL | e | | | procedure are in the | | | | | | results section. | + +--------+ + + + | COMPREHENSIVE | Routin | 10/10/2013 | | Results for this | | METABOLIC PANEL | e | | | procedure are in the | | | | | | results section. | + +--------+ + + + documented in this encounter Results CBC with Differential (10/10/2013) + +---------+ + + + | Component | Value | Ref Range | Performed | Pathologist | | | | | At | Signature | + +---------+ + + + | MCH | 28.0 | 26.0 - 33.0 pg | | | + +---------+ + + + | MCHC | 33.0 | 31.0 - 37.0 % | | | + +---------+ + + + | % Basophils | 2.2 (A) | 0.0 - 2.0 % | | | + +---------+ + + + | Erythrocyte | 72 (A) | 0 - 15 mm/hr | | | | | | | | | | Sedimentati | | | | | | on Rate | | | | | + +---------+ + + + + + | Specimen | + + | Blood specimen | | (specimen) | + + Comprehensive Metabolic Panel (10/10/2013) + + + + + + | Component | Value | Ref Range | Performed | Pathologist | | | | | At | Signature | + + + + + + | Anion Gap | 10 | 7 - 21 mmol/L | [facility] | | | | | | [facility] | | | [facility] | | | | [facility] - | | | | | | LAB[facility]ATORY | | + + + + + + | Bun/Creatin | 19.7 | 6 - 28.6 | [facility] | | | ine | | | [facility] | | | | | [facility] | | | | | | [facility] - | | | | | | LABORATORY | | + + + + + + | Globulin | 3.1 | 1.8 - 3.5 | [facility] | | | | | | [facility] | | | [facility] | [facility] | | | | | | [facility] - | | | | | | LABORATORY | | + + + + + + | Albumin/Peggy | 1.1 | 1.1 - 2.4 | [facility] | | | bulin Ratio | | | [facility] | | | | | | [facility] | | | | | | [facility] - | | | | | | LABORATORY | | + + + + + + | CRP | 38.8 (A) | 0 - 3 mg/L | [facility] | | | | | [...] ST. | [address] | [place] | | | [facility] | | [id number], [facility] | | | - LABORATORY | | | | + + + + + External Lab: BUN (10/10/2013) + +-------+ + + + | Component | Value | Ref Range | Performed | Pathologist | | | | | At | Signature | + +-------+ + + + | BUN, | 14 | 6 - 23 | EXTERNAL | | | External | | | LAB | | + +-------+ + + + + + | Resulting Agency Comment | + + | [facility] | + + + +---------+ + + | Performing | Address | City/State/Zipcode | Phone Number | | Organization | | | | + +---------+ + + | EXTERNAL LAB | | | | + +---------+ + + External Lab: Glucose (10/10/2013) + +-------+ + + + | Component | Value | Ref Range | Performed | Pathologist | | | | | At | Signature | + +-------+ + + + | Glucose, | 95 | 70 - 100 | EXTERNAL | | | External | | | LAB | | + +-------+ + + + + + | Resulting Agency Comment | + + | [facility] | + + + +---------+ + + | Performing | Address | City/State/Zipcode | Phone Number | | Organization | | | | + +---------+ + + | EXTERNAL LAB | | | | + +---------+ + + External Lab: ALT (10/10/2013) + +--------+ + + + | Component | Value | Ref Range | Performed | Pathologist | | | | | At | Signature | + +--------+ + + + | ALT, | 58 (A) | 0 - 46 | EXTERNAL | | | External | | | LAB | | + +--------+ + + + + + | Resulting Agency Comment | + + | [facility] | + + + +---------+ + + | Performing | Address | City/State/Zipcode | Phone Number | | Organization | | | | + +---------+ + + | EXTERNAL LAB | | | | + +---------+ + + External Lab: AST (10/10/2013) + +--------+ + + + | Component | Value | Ref Range | Performed | Pathologist | | | | | At | Signature | + +--------+ + + + | AST, | 55 (A) | 0 - 40 | EXTERNAL | | | External | | | LAB | | + +--------+ + + + + + | Resulting Agency Comment | + + | [facility] | + + + +---------+ + + | Performing | Address | City/State/Zipcode | Phone Number | | Organization | | | | + +---------+ + + | EXTERNAL LAB | | | | + +---------+ + + External Lab: Alkaline Phosphatase (10/10/2013) + +-------+ + + + | Component | Value | Ref Range | Performed | Pathologist | | | | | At | Signature | + +-------+ + + + | ALP, | 118 | 30 - 128 | EXTERNAL | | | External | | | LAB | | + +-------+ + + + + + | Resulting Agency Comment | + + | [facility] | + + + +---------+ + + | Performing | Address | City/State/Zipcode | Phone Number | | Organization | | | | + +---------+ + + | EXTERNAL LAB | | | | + +---------+ + + External Lab: Bilirubin, Total (10/10/2013) + +-------+ + + + | Component | Value | Ref Range | Performed | Pathologist | | | | | At | Signature | + +-------+ + + + | Bilirubin, | 0.2 | 0 - 1.2 | EXTERNAL | | | Total, | | | LAB | | | External | | | | | + +-------+ + + + + + | Resulting Agency Comment | + + | [facility] | + + + +---------+ + + | Performing | Address | City/State/Zipcode | Phone Number | | Organization | | | | + +---------+ + + | EXTERNAL LAB | | | | + +---------+ + + External Lab: Albumin (10/10/2013) + +---------+ + + + | Component | Value | Ref Range | Performed | Pathologist | | | | | At | Signature | + +---------+ + + + | Albumin, | 3.4 (A) | 3.5 - 5 | EXTERNAL | | | External | | | LAB | | + +---------+ + + + + + | Resulting Agency Comment | + + | [facility] | + + + +---------+ + + | Performing | Address | City/State/Zipcode | Phone Number | | Organization | | | | + +---------+ + + | EXTERNAL LAB | | | | + +---------+ + + External Lab: Protein, Total (10/10/2013) + +-------+ + + + | Component | Value | Ref Range | Performed | Pathologist | | | | | At | Signature | + +-------+ + + + | Protein, | 6.5 | 6 - 8 | EXTERNAL | | | Total, | | | LAB | | | External | | | | | + +-------+ + + + + + | Resulting Agency Comment | + + | [facility] | + + + +---------+ + + | Performing | Address | City/State/Zipcode | Phone Number | | Organization | | | | + +---------+ + + | EXTERNAL LAB | | | | + +---------+ + + External Lab: Calcium (10/10/2013) + +-------+ + + + | Component | Value | Ref Range | Performed | Pathologist | | | | | At | Signature | + +-------+ + + + | Calcium, | 9.4 | 8.4 - 10.2 | EXTERNAL | | | External | | | LAB | | + +-------+ + + + + + | Resulting Agency Comment | + + | [facility] | + + + +---------+ + + | Performing | Address | City/State/Zipcode | Phone Number | | Organization | | | | + +---------+ + + | EXTERNAL LAB | | | | + +---------+ + + External Lab: Carbon Dioxide (10/10/2013) + +-------+ + + + | Component | Value | Ref Range | Performed | Pathologist | | | | | At | Signature | + +-------+ + + + | Carbon | 28 | 19 - 31 | EXTERNAL | | | Dioxide, | | | LAB | | | External | | | | | + +-------+ + + + + + | Resulting Agency Comment | + + | [facility] | + + + +---------+ + + | Performing | Address | City/State/Zipcode | Phone Number | | Organization | | | | + +---------+ + + | EXTERNAL LAB | | | | + +---------+ + + External Lab: Chloride (10/10/2013) + +-------+ + + + | Component | Value | Ref Range | Performed | Pathologist | | | | | At | Signature | + +-------+ + + + | Chloride, | 103 | 95 - 112 | EXTERNAL | | | External | | | LAB | | + +-------+ + + + + + | Resulting Agency Comment | + + | [facility] | + + + +---------+ + + | Performing | Address | City/State/Zipcode | Phone Number | | Organization | | | | + +---------+ + + | EXTERNAL LAB | | | | + +---------+ + + External Lab: Potassium (10/10/2013) + +-------+ + + + | Component | Value | Ref Range | Performed | Pathologist | | | | | At | Signature | + +-------+ + + + | Potassium, | 3.6 | 3.6 - 5.1 | EXTERNAL | | | External | | | LAB | | + +-------+ + + + + + | Resulting Agency Comment | + + | [facility] | + + + +---------+ + + | Performing | Address | City/State/Zipcode | Phone Number | | Organization | | | | + +---------+ + + | EXTERNAL LAB | | | | + +---------+ + + External Lab: Sodium (10/10/2013) + +-------+ + + + | Component | Value | Ref Range | Performed | Pathologist | | | | | At | Signature | + +-------+ + + + | Sodium, | 137 | 132 - 143 | EXTERNAL | | | External | | | LAB | | + +-------+ + + + + + | Resulting Agency Comment | + + | [facility] | + + + +---------+ + + | Performing | Address | City/State/Zipcode | Phone Number | | Organization | | | | + +---------+ + + | EXTERNAL LAB | | | | + +---------+ + + External Lab: CBC (10/10/2013) + + + + + + | Component | Value | Ref Range | Performed | Pathologist | | | | | At | Signature | + + + + + + | WBC, | 7.1 | 4.5 - 11 | EXTERNAL | | | External | | | LAB | | + + + + + + | HGB, | 9.6 (A) | 13.5 - 18 | EXTERNAL | | | External | | | LAB | | + + + + + + | HCT, | 29 (A) | 41 - 50 | EXTERNAL | | | External | | | LAB | | + + + + + + | PLT, | 427 | 140 - 440 | EXTERNAL | | | External | | | LAB | | + + + + + + | Neutrophils | 62 | 39 - 80 | EXTERNAL | | | %, | | | LAB | | | External | | | | | + + + + + + | Lymphocytes | 25 | 24 - 44 | EXTERNAL | | | %, | | | LAB | | | External | | | | | + + + + + + | Monocytes | 7 | 0 - 12 | EXTERNAL | | | %, External | | | LAB | | + + + + + + | Eosinophils | 3.8 | 0 - 6 | EXTERNAL | | | %, | | | LAB | | | External | | | | | + + + + + + | RBC, | 3.41 (A) | 4.3 - 5.7 | EXTERNAL | | | External | | | LAB | | + + + + + + | MCV, | 85 | 81 - 99 | EXTERNAL | | | External | | | LAB | | + + + + + + | RDW, | 18.2 (A) | 10.5 - 15 | EXTERNAL | | | External | | | LAB | | + + + + + + + + | Resulting Agency Comment | + + | [facility] | + + + +---------+ + + | Performing | Address | City/State/Zipcode | Phone Number | | Organization | | | | + +---------+ + + | EXTERNAL LAB | | | | + +---------+ + + External Lab: eGFR (10/10/2013) + +-------+ + + + | Component | Value | Ref Range | Performed | Pathologist | | | | | At | Signature | + +-------+ + + + | eGFR, | >60 | 60 - 99,999 | EXTERNAL | | | External | | | LAB | | + +-------+ + + + + + | Specimen | + + | Blood specimen | | (specimen) | + + + + | Resulting Agency Comment | + + | [facility] | + + + +---------+ + + | Performing | Address | City/State/Zipcode | Phone Number | | Organization | | | | + +---------+ + + | EXTERNAL LAB | | | | + +---------+ + + External Lab: Creatinine (10/10/2013) + +-------+ + + + | Component | Value | Ref Range | Performed | Pathologist | | | | | At | Signature | + +-------+ + + + | Creatinine, | 0.71 | 0.5 - 1.5 | EXTERNAL | | | External | | | LAB | | + +-------+ + + + + + | Specimen | + + | Blood specimen | | (specimen) | + + + + | Resulting Agency Comment | + + | [facility] | + + + +---------+ + + | Performing | Address | City/State/Zipcode | Phone Number | | Organization | | | | + +---------+ + + | EXTERNAL LAB | | | | + +---------+ + + documented in this encounter Visit Diagnoses Not on filedocumented in this encounter"
--- OUTSIDE RECORDS SUMMARY | ~2020-01-30 | XMS | Encounter Summary ---
Demographics + + + | Address | [address] | | | [place] [address] | + + + | Home Phone [...] | Author | [facility] | | | and [place] | + + + | Organization | [facility] | [...] [place] | | | | | [address] | | + + + + + Care Team Providers + +------+ + | Care Street Commissioner Name | Role | Phone | + [...] [place] | | | | | [address] | [address] | | | | | [phone] | [phone] | | | | | | | [...] +--------+ + + + | HEPATITIS C | Routin | 01/01/2015 | | Results for this | | GENOTYPING | e | 2:15 PM | | procedure are in the | | | | PDT | | results section. | + +--------+ + + + documented in this encounter Results Hepatitis C Genotyping (01/01/2015 2:15 PM PDT) + + + + + + | Component | Value | Ref Range | Performed | Pathologist | | | | | At | Signature | + + + + + + | HCV | SEE BELOWComment: TYPE | | EXTERNAL | | | Genotype | 3, NO SUBTYPEHCV | | LAB | | | | GENOTYPE WAS DETERMINED | | | | | | BY RT-PCR AND FERROCENE | | | | | | LABELLED PROBE.THIS | | | | | | ASSAY DETECTS AND | | | | | | DIFFERENTIATES THE 6 | | | | | | MAJOR HCV GENOTYPES | | | | | | ANDTHEIR MOST COMMON | | | | | | SUBTYPES (1A, 1B, 2A/C, | | | | | | 2B, 3, 4, 5, 6).THIS | | | | | | TEST WAS DEVELOPED AND | | | | | | ITS PERFORMANCE | | | | | | CHARACTERISTICS | | | | | | DETERMINEDBY [facility] | | | | | | DIVISION OF LABORATORY | | | | | | MEDICINE. IT HAS NOT | | | | | | BEENAPPROVED OR CLEARED | | | | | | BY THE [place] [employer] AND | | | | | | DRUG ADMINISTRATION. | | | | | | THISTEST SHOULD NOT BE | | | | | | REGARDED | | | | | | INVESTIGATIONAL OR FOR | | | | | | RESEARCH USE.Testing | | | | | | performed at [facility], [address] | | | | | | [facility] | | | | | | [place] [address] | | | | + + + [...]
--- OUTSIDE RECORDS SUMMARY | ~2020-01-30 | XMS | Encounter Summary ---
Demographics + + + | Address | [address] | | | [place] [address] | + + + | Home Phone | | + + + | Preferred Language | Unknown | + + + | Marital Status | | + + + | Religion Affiliation | 1013 | + + + | Race | Unknown | + + + | Ethnic Group | Unknown | + + + Author + + + | Author | [facility] | | | and [place] | + + + | Organization | [facility] [...] [place] | | | | | [address] | | + + + + + Care Team Providers + +------+ + | Care Electro Mechanical Technologist Name | Role | Phone | [...] | | | | | | | [place] | | | | | | | ANESTHESIA | | | | | | | UPPER GI | | | | | | | ENDOSCOPIC | | | | | | | PX ERCP CA | | | | | | | [...] + + + + | 02/12/ | Hospital | [facility] | Dc Naik MD | | | 2018 | Encounter | MED CTR XRAY [address], [place] | | | | | [address] [place] | [address] [place], [place] | | | | | [place] [address] | [address] | | | | | [phone] | | | +--------+ + + + [...] + | [place] ERCP | Routin | 02/12/2018 | | Results for this | | | e | 11:45 AM | | procedure are in the | | | | PDT | | results section. | + +--------+ + + + documented in this encounter Results FL ERCP (02/12/2018 11:45 AM PDT) + + | Specimen | + + | | + + + + + | Narrative | Performed At | + + + | This exam has been auto-finalized and the interpretation may exist | [facility] | | elsewhere in the chart. | | + + + + +---------+ + + | Performing | Address | City/State/Zipcode | Phone Number | | Organization | | | | + +---------+ + + | [facility] | | | | + +---------+ + + documented in this encounter Visit Diagnoses Not on filedocumented in this encounter"
--- OUTSIDE RECORDS SUMMARY | ~2020-01-30 | XMS | Encounter Summary ---
Demographics + + + | Address | [address] | | | [place] [address] | + + + | Home Phone | | + + + | Preferred Language | Unknown | + + + | Marital Status | | + + + | Jain Affiliation | Unknown | + + + | Race | White | + + + | Ethnic Group | Not or | + + + Author + + + | Author | [facility] | + + + | Organization | [facility] | + + + | Address | Unknown | + + + | Phone | Unavailable | + + + Support + + +---------+ + | Name | Relationship | Address | Phone | + + +---------+ + | Maria Isabel Cespedes | ECON | Unknown | | + + +---------+ + Care Team Providers + +------+ + | Care Icer Hand Name | Role | Phone | + +------+ + | Allison Fairchild POLISHER SAND | PCP | | + +------+ + [...] | | | | | Renal | Maria Antonia, | s [address] | | | | | artery | MD Debbie | [address] | | | | | stenosis | [address] | Vonda Khanna [facility] | | | | | ([facility]) | [facility], | | | | | Procedures | Rd | 10th Floor | | | | | CTA ABDOMEN | [place], [place] | [place], [place] | | | | | AND PELVIS W | [address] | [address] | | | | | IV CONTRAST | Phone: | Phone: | | | | | [place] | [phone] | [phone] | | | | | ANGIO, ABD | Fax: | Fax: | | | | | AND PELVS | [phone] | [phone] | | | | | INCL IMAG | | | | | | | PROC | | | +--------+--------+ + + + + Reason for Visit Diagnostic Testing (Routine) +--------+--------+ + + + + | Status | Reason | Specialty | Diagnoses / | Referred By | Referred To | | | | | Procedures | Contact | Contact | +--------+--------+ + + + + | Closed | | Radiology | Diagnoses | | Rad Ct Scan | | | | | Renal | Maria Antonia | s [address] | | | | | artery | MD Debbie | [address] | | | | | stenosis | [address] | Vonda Khanna [facility] | | | | | ([facility]) | [facility], | | | | | Procedures | Rd | 10th Floor | | | | | CTA ABDOMEN | [place], [place] | [place], [place] | | | | | AND PELVIS W | [address] | [address] | | | | | IV CONTRAST | Phone: | Phone: | | | | | [place] | [phone] | [phone] | | | | | ANGIO, ABD | Fax: | Fax: | | | | | AND PELVS | [phone] | [phone] | | | | | INCL IMAG | | | | | | | PROC | | | +--------+--------+ + + + + Encounter Details +--------+ + + + + | Date | Type | Department | Care Team | Description | +--------+ + + + + | 03/11/ | Hospital | Diagnostic Imaging | Debbie Em, | | | 2019 | Encounter | Services at [facility] | [address] | | | | | [address] | [address] | | | | | Vonda MART[address]NEZ | [place], [place] | | | | | [address] | [address] | | | | | [place], [place] | [phone] | | | | | [address] | | | | | | [phone] | | | +--------+ + + + [...] + + +---------+ + + | amLODIPine 10 mg | Take 10 mg by mouth | | 0 | 10/05/19 | | | oral tablet | once daily. | | | 19 | | + + + +---------+ + + | docusate sodium | Take 100 mg by | | 0 | | | | 100 mg oral capsule | mouth. | | | | | + + + +---------+ + + | ELIQUIS 5 mg oral | Take 5 mg by mouth | | 0 | 09/03/20 | | | tablet | two times daily. | | | 18 | | + + + +---------+ + + | gabapentin 300 mg | Take 300 mg by mouth | | 0 | 10/26/19 | | | oral capsule | once daily as | | | 19 | | | | needed. | | | | | + + + +---------+ + + | LORazepam 2 mg | Take 2 mg by mouth | | 0 | 10/21/19 | | | oral tablet | as needed. | | | 19 | | + + + +---------+ + + | magnesium oxide | Take 400 mg by mouth | | 0 | 09/27/19 | | | 400 mg oral tablet | three times daily. | | | 19 | | + + + +---------+ + + | methocarbamol 500 | Take 1,000 mg by | | 0 | 10/22/19 | | | mg oral tablet | mouth four times | | | 19 | | | | daily. | | | | | + + + +---------+ + + | sp-dtr-uptui | Chew and swallow. | | 0 | | | | acid-lutein (CENTRUM | | | | | | | SILVER) 400-250 mcg | | | | | | | oral | | | | | | | tablet,chewable | | | | | | + + + +---------+ + + | omeprazole 20 mg | as needed. | | 0 | 10/13/19 | | | oral capsule,delayed | | | | 19 | | | release(DR/EC) | | | | | | + + + +---------+ + + | ondansetron ODT 4 | as needed. | | 0 | 09/30/19 | | | mg oral | | | | 19 | | | tablet,disintegratin | | | | | | | g | | | | | | + + + +---------+ + + | ondansetron ODT 4 | DISSOLVE ONE TABLET | | 0 | 09/30/19 | | | mg oral | IN MOUTH EVERY SIX | | | 19 | | | tablet,disintegratin | HOURS NEEDED FOR | | | | | | g | NAUSEA | | | | | + + + +---------+ + + | oxyCODONE | Take 30 mg by mouth | | 0 | 10/22/19 | | | (immediate release) | as needed. | | | 19 | | | 15 mg oral tablet | | | | | | + + + +---------+ + + | tamsulosin 0.4 mg | Take 0.4 mg by mouth | | 0 | | | | oral capsule | once daily. | | | | | + + + +---------+ + + | VENTOLIN HFA 90 | as needed. | | 0 | 09/27/19 | | | mcg/actuation | | | | 19 | | | inhalation HFA | | | | | | | aerosol inhaler | [...] | + +--------+ + + + | CTA ABDOMEN AND | Routin | 03/11/2019 | Renal artery | Results for this | | PELVIS W IV CONTRAST | e | 9:56 AM | stenosis (HCC) | procedure are in the | | | | PDT | | results section. | + +--------+ + + + | CREATININE, POC | Routin | 03/11/2019 | Renal artery | Results for this | | | e | 9:48 AM | stenosis (HCC) | procedure are in the | | | | PDT | | results section. | + +--------+ + + + documented in this encounter Results CTA ABDOMEN AND PELVIS W IV CONTRAST [...] Note | + + | Service Account, Radiant Res In Interface - 03/12/2019 1:33 PM [...] Almaguer MD 03/12/2019 1:32 PM | |Preliminary: oJse Gil DO | |Dictation initiated: Jose Gil DO 03/11/2019 12:28 PM | + + + +---------+ + + | Performing | Address | City/State/Zipcode | Phone Number | | Organization | | | | + +---------+ + + | [facility] | | | | | VOICE RECOGNITION 2 | | | | + +---------+ + + CREATININE, POC (03/11/2019 9:48 AM PDT) + +-------+ + + + | Component | Value | Ref Range | Performed | Pathologist | | | | | At | Signature | + +-------+ + + + | CREATININE, | 0.9 | 0.7 - 1.3 mg/dL | [facility] | | | POC | | | [facility] | | | | | | [facility] | | | | | | OF CARE | | | | | | TESTS | | + +-------+ + + + + + | Specimen | + + | Blood - Blood | | (substance) | + + + + + + + | Performing | Address | City/State/Zipcode | Phone Number | | Organization | | | | + + + + + | [facility] | [address] | [place], [place] | | | [facility] | [address] | [address] | | | TESTS | | | | + + + + + documented in this encounter Visit Diagnoses + + | Diagnosis | + + | Renal artery stenosis (HCC) Atherosclerosis of renal artery | + + documented in this encounter Administered Medications + +---------+ +--------+------+------+ | Medication Order | MAR | Action | Dose | Rate | Site | | | Action | Date | | | | + +---------+ +--------+------+------+ | iohexol (OMNIPAQUE) 350 mg | IV Push | 03/11/20 | 125 mL | | | | iodine/mL injection 125 mL 125 | | 19 10:30 | | | | | mL, intravenous, ONCE, 1 dose, | | AM PDT | | | | | 03/11/19 at 1030 | | | | | | + +---------+ +--------+------+------+ +---+---+ | | | +---+---+ documented in this encounter"
--- OUTSIDE RECORDS SUMMARY | ~2020-01-30 | XMS | Encounter Summary ---
Demographics + + + | Address | [address] | | | [place] [address] | + + + | Home Phone | | + + + | Preferred Language | Unknown | + + + | Marital Status | | + + + | Muslim Affiliation | 1013 | + + + | Race | Unknown | + + + | Ethnic Group | Unknown | + + + Author + + + | Author | [facility] | | | and [place] | + + + | Organization | [facility] | | | and [place] | [...] [place] | | | | | [address] | | + + + + + Care Team Providers + +------+ + | Care Supervisor Lump Room Name | Role | Phone | + [...] | | | | | | | AR | | | | | | | ESOPHAGOGAST | | | | | | | RODUODENOSCO | | | | | | | PY TRANSORAL | | | | | | | DIAGNOSTIC | | | | | | | AR EGD | | | | | | | TRANSORAL | | | | | | | BIOPSY | | | | | | | SINGLE/MULTI | | | | | | | PLE AR | | | | | | | [...] + + | 11/18/ | Surgery | [facility] | Adrian Aponte MD | EGD | | 2018 | | MED CTR MP INTRA OP | [address] | | | | | [address] | [place], [place] | | | | | [place], [place] | [address] | | | | | [address] | [phone] | | | | | [phone] | | | +--------+---------+ + + + [...] 11/18/2017 | [facility] | | 8:29 AMMRN: [id number] #: [id number] of : | | | 1960Admit Type: AmbulatoryAge: 56Room: [facility] 01Gender: MaleNote | | | Status: FinalizedAttending MD: Adrian Aponte MDProcedure: | | | Upper GI endoscopyIndications: Epigastric abdominal | | | pain, Nausea with vomitingProviders: Adrian Aponte MD, | | | Caroline Beltran RN, Edyta Kilpatrick | | | Cabrera, Estimator Paperboard Boxes, CARMELLA MELO, | | | DO (Anesthesia [...] | | | the anesthesiologist and the extrusion technician in the pre-procedure | | | [...] | | 8:39:59 AMScope Out: 8:48:59 AM [facility] | | | [place], [address] [place] [address] | | | - Await pathology results. [...] |Scope Out: 8:48:59 AM | | | [facility], [address] [place] [address] | | | [address] | | + + -+ + +---------+ [...] | | epithelial eosinophils. JVR:[facility]:C2NR GROSS DESCRIPTION: | | | [...] (D1). | | | ka:JVR:[facility] PERFORMING LABORATORY: Tissue processing and slide | | | preparation were performed by [facility], [address] | | | [address], [place] [address] (Mechanical Systems Design Engineer: Alex Hathaway M.D. | | | CLIA#: [id number]). Professional interpretation was performed by | | | [facility], [facility], [address] | [address] [place] [address] (Mechanical Systems Design Engineer: Alex Hathaway, | | | Trevin; CLIA#: [id number]). Diagnostician: Alex Hathaway MD | | | Pathologist Electronically Signed 11/19/2017 | | + + + + +---------+ + + | Performing | Address | City/State[facility] | Phone Number | | Organization | [...]
--- OUTSIDE RECORDS SUMMARY | ~2020-01-30 | XMS | Encounter Summary ---
Demographics + + + | Address | [address] | | | [place] [address] | + + + | Home Phone | | + + + | Preferred Language | Unknown | + + + | Marital Status | | + + + | Confucianism Affiliation | Unknown | + + + | Race | White | + + + | Ethnic Group | Not or | + + + Author + + + | Author | [facility] | + + + | Organization | [facility] | + + + | Address | Unknown | + + + | Phone | Unavailable | + + + Support + + +---------+ + | Name | Relationship | Address | Phone | + + +---------+ + | Maria Isabel Cespedes | ECON | Unknown | | + + +---------+ + Care Team Providers + +------+ + | Care Focuser Name | Role | Phone | + +------+ + | Allison Fairchild SEPTIC TANK SETTER | PCP | | + +------+ + [...] | [address] | Dorian Khanna [facility] | | | | | ([facility]) | [facility], | | | | | Procedures | Rd | 10th Floor | | | | | CTA ABDOMEN | [place], [place] | [place], [place] | | | | | AND PELVIS W | [address] | [address] | | | | | IV CONTRAST | Phone: | Phone: | | | | | [place] | [phone] | [phone] | | | | | ANGIO, ABD | Fax: | Fax: | | | | | AND PELVS | [phone] | [phone] | | | | | INCL IMAG | | | | | | | PROC | | | +--------+--------+ + + + + Encounter Details +--------+ + + + + | Date | Type | Department | Care Team | Description | +--------+ + + + + | 02/22/ | Telephone | Rheumatology at | Debbie Em, | | | 2018 | | [facility] | [address] | | | | | [address] | [address] | | | | | Loop Physician[facility] | [place], [place] | | | | | [address], 4th Floor | [address] | | | | | [place], [place] | [phone] | | | | | [address] | | | | | | [phone] | | | +--------+ + + + [...] by | | | | | | [employer],[address] | | | | | | Manohar Lacey, [facility] | | | | | | [address] | | | | | | [phone].[employer]. | | | | | | Melecio [...] [facility] | [address] | [place], [place] | | | [facility] | | [address] | | + + + + + [...] | + + + + + | [facility] | [address] | [place] [address] | | | SERVICES, CORE | PARK [...] | | | LABORATORY | | | CHINESE | | | SERVICES, | | | [...] MDRD equation recommended by the National | [facility] | | Kidney Disease Education Program. Estimated GFR Interpretive | LABORATORY | | Information: <60 mL/min/1.73 sq m Chronic Kidney | SERVICES, [facility] | | Disease <15 mL/min/1.73 sq m [...] | + + + + + | [facility] | [address] | [place] [address] | | | [place] | DORIAN [...] LABORATORY | | sedimentation rate. | SERVICES, [place] | + + + + + + + + | Performing | Address | City/State/Zipcode | Phone Number | | Organization | | | | + + + + + | [facility] | [address] | [place] [address] | | | [place] | DORIAN [...] Note | + + | Service Account, [employer] Res In Interface - 03/12/2019 1:33 PM [...]
--- OUTSIDE RECORDS SUMMARY | ~2020-01-30 | XMS | Encounter Summary ---
Demographics + + + | Address | [address] | | | [place] [address] | + + + | Home Phone [...] | Author | [facility] | | | and [place] | + + + | Organization | [facility] [...] [place] | | | | | [address] | | + + + + + Care Team Providers + +------+ + | Care Wad Printing Machine Operator Name | Role | Phone [...] + + | 07/04/ | Emergency | [facility] | Herson Tobias, | Abdominal wall | | 2019 | | [facility] | PA-C [address] | abscess (Primary Dx) | | | | EMERGENCY CENTER | [place] [address] | | | | | [address] | [phone] | | | | | [place], [place] | | | | | | [address] | Obed Davis, | | | | | [phone] | MD [address] | | | | | | [place], [place] | | | | | | [address] | | | | | | [phone] | | | | | | | [...] through Care Everywhere.Abscess, Incisi on And Drainage (Hebrew)documented in this encounter Medications at Time of [...] D?MRN: | | | | | | [id number] | | | [id number] | | | riteri | | | [...] | | | St. | | | Bruce | | | y | | | [...] | | | St. | | | Bruce | | | y | | | [...] | | | St. | | | Bruce | | | y H. | | [...] | | | St. | | | Bruce | | | y H. | | [...] | | | St. | | | Bruce | | | y H. | | [...] | | | St. | | | Bruce | | | y H. | | [...] | | | S, | | | [employer] | | | Nurse | | | [...] administration of 100 mL | | | [id number] intravenous contrast. Multiplanar reconstructions. | | | [...] the administration of 100 mL | | [id number] intravenous contrast. Multiplanar reconstructions. | | | [...] Special | Testing performed at | | [facility] | | | Requests | [facility] | | LABORATORY | | | | [place] [address] | | | | + + + + + + | RESULT | NO GROWTH 6 DAYS | | [facility] | | | | | | LABORATORY | | + + + + + + | RESULT | Testing performed at | | [facility] | | | | TCL, [address] | | LABORATORY | | | | [place], [place] | | | | | | [address]Qciilcf: Testing | | | | | | performed at [facility], [address] | | | | | | [address] [place], [place] | | | | | | [address] | | | | + + + + + + + + | Specimen | + + | Blood - Peripheral | | blood specimen | | (specimen) | + + + + + + + | Performing | Address | City/State/Zipcode | Phone Number | | Organization | | | | + + + + + | [facility] | [address] | [place] [address] | [phone] | + + + + + Culture, [...] Special | Testing performed at | | [facility] | | | Requests | [facility] | | LABORATORY | | | | [place] [address] | | | | + + + + + + | RESULT | NO GROWTH 6 DAYS | | [facility] | | | | | | LABORATORY | | + + + + + + | RESULT | Testing performed at | | [facility] | | | | TCL, [address] | | LABORATORY | | | | [place] | | | | | | [address]Qwsrgce: Testing | | | | | | performed at [facility], [address] | | | | | | [address] [place], [place] | | | | | | [address] | | | | + + + + + + + + | Specimen | + + | Blood - Swab of line | | insertion site | | (specimen) | + + + + + + + | Performing | Address | City/State/Zipcode | Phone Number | | Organization | | | | + + + + + | [facility] | [address] | [place] [address] | [phone] | + + + + + Lactic Acid (07/04/2019 8:10 PM PDT) + + + + + + | Component | Value | Ref Range | Performed | Pathologist | | | | | At | Signature | + + + + + + | Lactate, | 1.3Comment: Testing | 0.4 - 2.0 | [facility] | | | Serum | performed at [facility] [place];[address] | mmol/L | LABORATORY | | | | [address];[place], [place] | | | | | | [address] | | | | + + + + + + + + | Specimen | + + | Blood | + + + + + + + | Performing | Address | City/State/Zipcode | Phone Number | | Organization | | | | + + + + + | [facility] | [address] | [place] [address] | [phone] | + + + + + Lipase (07/04/2019 8:10 PM PDT) + + + + + + | Component | Value | Ref Range | Performed | Pathologist | | | | | At | Signature | + + + + + + | Lipase | Comment: Testing | 12 - 53 U/L | [facility] | | | | performed at [facility] [place];[address] | | LABORATORY | | | | [address] [place] | | | | | | [address] | | | | + + + + + + + + | Specimen | + + | Blood | + + + + + + + | Performing | Address | City/State/Zipcode | Phone Number | | Organization | | | | + + + + + | [facility] | [address] | [place] [address] | [phone] | + + + + + Comprehensive [...] | | | | | | MDRD [facility] traceable | | | | | | equation.Testing | | | | | | performed at [facility] [place];[address] | | | | | | [facility];[place], [place] | | | | | | [address] | | | | + + + + + + + + | Specimen | + + | Blood | + + + + + + + | Performing | Address | City/State/Zipcode | Phone Number | | Organization | | | | + + + + + | [facility] | [address] | [place] [address] | [phone] | + + + + + CBC [...] 0.08Comment: Testing | 0.00 - 0.10 | [facility] | | | Absolute | performed at [facility] [place];[address] | K/uL | LABORATORY | | | | [place] | | | | | | [address] | | | | + + + + + + + + | Specimen | + + | Blood | + + + + + + + | Performing | Address | City/State/Zipcode | Phone Number | | Organization | | | | + + + + + | [facility] | [address] | [place] [address] | [phone] | + + + + + Culture, [...] | [facility] | | | Result | [facility] [place];[address] | | LABORATORY | | | | [address];[place] [address] | | | | + + + [...] Comment: Testing | | | performed at [facility], | | | [address], | | | [place] [address] | +---+ + + + + + + | Performing | Address | City/State/Zipcode | Phone Number | | Organization | | | | + + + + + | [facility] | [address] | [place] [address] | [phone] | + + + + + documented [...]
--- OUTSIDE RECORDS SUMMARY | ~2020-01-30 | XMS | Encounter Summary ---
Demographics + + + | Address | [address] | | | [place] [address] | + + + | Home Phone [...] | Author | [facility] | | | and [place] | + + + | Organization | [facility] | | | [...] [place] | | | | | [address] | | + + + + + Care Team Providers + +------+ + | Care Natural Gas Engineer Name | Role | Phone | [...] 2017 | | GASTROENTEROLOGY | [address], [place] | | | | | [address] [place] | [address] [place], [place] | | | | | [address], [place] | [address] | | | | | [address] | | | | | | [phone] | | | +--------+ + + + [...] | EXTERNAL LAB: VON | Routin | 09/15/2017 | | Results [...]
--- OUTSIDE RECORDS SUMMARY | ~2020-01-30 | XMS | Encounter Summary ---
Demographics + + + | Address | [address] | | | [place] [address] | + + + | Home Phone | | + + + | Preferred Language | Unknown | + + + | Marital Status | | + + + | Jainism Affiliation | Unknown | + + + | Race | White | + + + | Ethnic Group | Not or | + + + Author + + + | Author | [facility] | + + + | Organization | [facility] | + + + | Address | Unknown | + + + | Phone | Unavailable | + + + Support + + +---------+ + | Name | Relationship | Address | Phone | + + +---------+ + | Maria Isabel Cespedes | ECON | Unknown | | + + +---------+ + Care Team Providers + +------+ + | Care Friction Paint Machine Tender Name | Role | Phone [...] | | | | | [address] [place], | | | | | | [place] [address] | | | +--------+--------+ + + + [...]
--- OUTSIDE RECORDS SUMMARY | ~2020-01-30 | XMS | Encounter Summary ---
Demographics + + + | Address | [address] | | | [place] [address] | + + + | Home Phone [...] Author | [facility] | | | and [place] | + + + | Organization | [facility] | | | and [place] | [...] [place] | | | | | [address] | | + + + + + Care Team Providers + +------+ + | Care Car Chaser Name | Role | Phone | + [...] | | | [place] [address] | [place] | | | | | [address] | [address] | | | | | [phone] | [phone] | | | | | | | [...] GIVEN Testing | | | performed at [facility];[address];[place] [address] CULTURE | | | NO GROWTH | | | Testing performed at [facility], [address] | | | [place] [address] REPORT STATUS | | | 10/04/2013 FINAL [...]
--- OUTSIDE RECORDS SUMMARY | ~2020-01-30 | XMS | Encounter Summary ---
Demographics + + + | Address | [address] | | | [place] [address] | + + + | Home Phone [...] + | Author | [facility] | | | and [place] | + + + | Organization | [facility] | | | and [place] | + [...] [place] | | | | | [address] | | + + + + + Care Team Providers + +------+ + | Care Computer Systems Technology Instructor Name | Role | Phone | + [...] [place] | | | | | | [address] | | | | | | [phone] | | | +--------+ + + + [...]
--- OUTSIDE RECORDS SUMMARY | ~2020-01-30 | XMS | Encounter Summary ---
Demographics + + + | Address | [address] | | | [place] [address] | + + + | Home Phone | | + + + | Preferred Language | Unknown | + + + | Marital Status | | + + + | Jehovah'S Witness Affiliation | 1013 | + + + | Race | Unknown | + + + | Ethnic Group | Unknown | + + + Author + + + | Author | [facility] | | | and [place] | + + + | Organization | [facility] | | | and [place] [...] [place] | | | | | [address] | | + + + + + Care Team Providers + +------+ + | Care Multi Needle Machine Operator Name | Role | Phone | + +------+ + | Allison Fairchild NP | PCP | | + +------+ + Encounter Details +--------+ + + + + | Date | Type | Department | Care Team | Description | +--------+ + + + + | 01/01/ | Orders Only | [facility] | dR Busby MD | | | 2015 | | [address] | [address] | | | | | [place] | [place] | | | | | [address] | [address] | | | | | [phone] | [phone] | | | | | | | [...] | | at [facility];[address] | | | | | | [facility];[place], [place] | | | | | | [address] | | | | + + + [...]
--- OUTSIDE RECORDS SUMMARY | ~2020-01-30 | XMS | Encounter Summary ---
Demographics + + + | Address | [address] | | | [place] [address] | + + + | Home Phone [...] Author | [facility] | | | and Alexana | + + + | Organization | [facility] | | | [...] [place] | | | | | [address] | | + + + + + Care Team Providers + +------+ + | Care Electronic Science Teacher Name | Role | Phone [...] | +--------+ + + + + | 12/09/ | Telephone | [facility] | Adrian Aponte MD | Results | | 2016 | | GASTROENTEROLOGY | [address] [facility] | | | | | [address] [facility] | [place], [place] | | | | | [address] [place] | [address] | | | | | [address] | [phone] | | | | | [phone] | | | +--------+ + + + [...]
--- OUTSIDE RECORDS SUMMARY | ~2020-01-30 | XMS | Encounter Summary ---
Demographics + + + | Address | [address] | | | [place] [address] | + + + | Home Phone | | + + + | Preferred Language | Unknown | + + + | Marital Status | | + + + | Yazidi Affiliation | 1013 | + + + | Race | Unknown | + + + | Ethnic Group | Unknown | + + + Author + + + | Author | [facility] | | | and [place] | + + + | Organization | [facility] | | | and [...] [place] | | | | | [address] | | + + + + + Care Team Providers + +------+ + | Care Octave Board Assembler Name | Role | Phone | [...] | | | [place] | [place] | | | | | [address] | [address] | | | | | [phone] | [phone] | | | | | | | [...] | | | | performed at [facility];[address] | | LAB | | | | [place] | | | | | | [place] [address] | | | | + + + [...]
--- OUTSIDE RECORDS SUMMARY | ~2020-01-30 | XMS | Encounter Summary ---
Demographics + + + | Address | [address] | | | [place] [address] | + + + | Home Phone [...] | Author | [facility] | | | and [place]ana | + + + | Organization | [facility] | | | and [place] | + + + | Address | Unknown | + + + | Phone | Unavailable | + + + Support + + + + + | Name | Relationship | Address | Phone | + + + + + | Teodora Cespedes | ECON | [address] | | | | | [facility] [place] | | | | | [address] | | + + + + + Care Team Providers + +------+ + | Care Hoop Punch And Coiler Operator Helper Name | Role | Phone | + +------+ + PCP | Unavailable | + +------+ + Encounter Details +--------+ + + + + | Date | Type | Department | Care Team | Description | +--------+ + + + + | 10/31/ | Hospital | [facility] | Conversion | | | 2014 | Encounter | [facility] | Transaction, | | | | | CLINIC [address] | Provider Unknown | | | | | [place], [place] | | | | | | [address] | (Fax) | | | | | [phone] | | | +--------+ + + + [...] + + | Historically converted procedure from [facility] Epic environment | EXTERNAL LAB | + [...] LAB | | | | Blvd;[place] [address] | | | | + + + + + + | Antibody | NEGATIVE | | EXTERNAL | | | Screen | | | LAB | | + + + + + + | Antibody | Testing performed at | | EXTERNAL | | | Screen | [facility];[address] | | LAB | | | | [address];[place] [address] | | | | + + + [...] EXTERNAL | | | | performed at [facility];[address] | | LAB | | | | [address];[place] | | | | | | [address] | | | | + + + + + + | Red Blood | 4.67Comment: Testing | 4.20 - 5.70 | EXTERNAL | | | Cells | performed at [facility];[address] | M/uL | LAB | | | Counted | [address];[place] | | | | | | [address] | | | | + + + + + + | Hemoglobin | 14.1Comment: Testing | 13.2 - 17.0 | EXTERNAL | | | | performed at [facility];888 | g/dL | LAB | | | | [address];[place] | | | | | | [address] | | | | + + + + + + | Hematocrit, | 42.8Comment: Testing | 39.0 - 50.0 % | EXTERNAL | | | POC | performed at [facility];[address] | | LAB | | | | [address];[place] | | | | | | [address] | | | | + + + + + + | MCV | 91.6Comment: Testing | 80.0 - 100.0 fl | EXTERNAL | | | | performed at [facility];[address] | | LAB | | | | [address];[place] | | | | | | [address] | | | | + + + + + + | MCH | 30.1Comment: Testing | 27.0 - 34.0 pg | EXTERNAL | | | | performed at [facility];[address] | | LAB | | | | [address];[place] | | | | | | [address] | | | | + + + + + + | MCHC | 32.9Comment: Testing | 32.0 - 35.5 | EXTERNAL | | | | performed at [facility];888 | g/dL | LAB | | | | [address];[place] | | | | | | [address] | | | | + + + + + + | RDW-CV | 45.5Comment: Testing | 37 - 53 fl | EXTERNAL | | | | performed at [facility];[address] | | LAB | | | | [address];[place] | | | | | | [address] | | | | + + + + + + | Platelet | 345Comment: Testing | 150 - 400 K/uL | EXTERNAL | | | Count | performed at [facility];[address] | | LAB | | | Plasma | [address];[place] | | | | | | [address] | | | | + + + + + + | MPV | 8.4Comment: Testing | fl | EXTERNAL | | | | performed at [facility];[address] | | LAB | | | | [address];[place] | | | | | | [address] | | | | + + + + + + | Differentia | AUTOMATEDComment: | | EXTERNAL | | | l Type | Testing performed at | | LAB | | | | [facility];[address] | | | | | | [address];[place] [address] | | | | + + + + + + | % Segmented | 65.7Comment: Testing | % | EXTERNAL | | | | performed at [facility];[address] | | LAB | | | Neutrophils | [address];[place] | | | | | | [address] | | | | + + + + + + | % | 24.6Comment: Testing | % | EXTERNAL | | | Lymphocytes | performed at [facility];[address] | | LAB | | | | [address];[place] | | | | | | [address] | | | | + + + + + + | % Monocytes | 6.6Comment: Testing | % | EXTERNAL | | | | performed at [facility];[address] | | LAB | | | | [address];[place] | | | | | | [address] | | | | + + + + + + | % | 1.8Comment: Testing | % | EXTERNAL | | | Eosinophils | performed at [facility];[address] | | LAB | | | | [address];[place] | | | | | | [address] | | | | + + + + + + | % Basophils | 1.3Comment: Testing | % | EXTERNAL | | | | performed at [facility];[address] | | LAB | | | | [address];[place] | | | | | | [address] | | | | + + + + + + | Absolute | 7.7 (H)Comment: Testing | 1.9 - 7.4 K/uL | EXTERNAL | | | Segmented | performed at [facility];[address] | | LAB | | | Neutrophils | [address];[place] | | | | | | [address] | | | | + + + + + + | Absolute | 2.9Comment: Testing | 1.0 - 3.9 K/uL | EXTERNAL | | | Lymphocytes | performed at [facility];[address] | | LAB | | | | [address];[place] | | | | | | [address] | | | | + + + + + + | Absolute | 0.8Comment: Testing | 0 - 0.8 K/uL | EXTERNAL | | | Monocytes | performed at [facility];[address] | | LAB | | | | [address];[place] | | | | | | [address] | | | | + + + + + + | Absolute | 0.2Comment: Testing | 0 - 0.5 K/uL | EXTERNAL | | | Eosinophils | performed at [facility];[address] | | LAB | | | | [address];[place] | | | | | | [address] | | | | + + + + + + | Absolute | 0.1Comment: Testing | 0 - 0.1 K/uL | EXTERNAL | | | Basophils | performed at [facility];[address] | | LAB | | | | [address];[place] | | | | | | [address] | | | | + + + [...] EXTERNAL | | | | performed at [facility];[address] | mmol/L | LAB | | | | [address];[place], [place] | | | | | | [address] | | | | + + + + + + | K | 4.0Comment: Testing | 3.5 - 4.9 | EXTERNAL | | | | performed at [facility];[address] | mmol/L | LAB | | | | [address];[place] | | | | | | [address] | | | | + + + + + + | Cl | 108Comment: Testing | 99 - 109 mmol/L | EXTERNAL | | | | performed at [facility];[address] | | LAB | | | | [address];[place] | | | | | | [address] | | | | + + + + + + | CO2 | 26Comment: Testing | 23 - 32 mmol/L | EXTERNAL | | | | performed at [facility];[address] | | LAB | | | | [address];[place] | | | | | | [address] | | | | + + + + + + | Anion Gap | 10Comment: Testing | 5 - 20 mmol/L | EXTERNAL | | | | performed at [facility];[address] | | LAB | | | | [address];[place] | | | | | | [address] | | | | + + + + + + | Glucose, | 95Comment: Testing | 65 - 99 mg/dL | EXTERNAL | | | Fasting | performed at [facility];[address] | | LAB | | | | [address];[place] | | | | | | [address] | | | | + + + + + + | BUN | 17Comment: Testing | 8 - 25 mg/dL | EXTERNAL | | | | performed at [facility];[address] | | LAB | | | | [address];[place] | | | | | | [address] | | | | + + + + + + | Creatinine | 0.92Comment: Testing | 0.70 - 1.30 | EXTERNAL | | | | performed at [facility];888 | mg/dL | LAB | | | | [address];[place] | | | | | | [address] | | | | + + + + + + | BUN/Creatin | 19Comment: Testing | | EXTERNAL | | | ine Ratio | performed at [facility];[address] | | LAB | | | | [address];[place] | | | | | | [address] | | | | + + + + + + | Calcium | 8.4 (L)Comment: Testing | 8.5 - 10.5 | EXTERNAL | | | | performed at [facility];888 | mg/dL | LAB | | | | [place];[place] | | | | | | [address] | | | | + + + [...] | | | | | | at [facility];[address] | | | | | | [place] [address] | | | | + + + [...] EXTERNAL LAB | | Testing performed at [facility];[address] [place] [address];[place] [address] MRSA PCR | | | NEGATIVE Testing performed at | | | [address];[place] [address] | | + + + + +---------+ + + | Performing | Address | City/State/Zipcode | Phone Number | | Organization | | | | + +---------+ + + | EXTERNAL LAB | | | | + +---------+ + + documented in this encounter Visit Diagnoses Not on filedocumented in this encounter"
--- OUTSIDE RECORDS SUMMARY | ~2020-01-30 | XMS | Encounter Summary ---
Demographics + + + | Address | [address] | | | [place] [address] | + + + | Home Phone | | + + + | Preferred Language | Unknown | + + + | Marital Status | | + + + | Christianity Affiliation | 1013 | + + + | Race | Unknown | + + + | Ethnic Group | Unknown | + + + Author + + + | Author | [facility] | | | and [place] | + + + | Organization | [facility] | | | and [place] [...] [place] | | | | | [address] | | + + + + + Care Team Providers + +------+ + | Care Pulpwood Buyer Name | Role | Phone | [...] | | | [place] | [place] | | | | | [address] | [address] | | | | | [phone] | [phone] | | | | | | | [...] [place] | | | | | | [address] | | | | + + + + + + | Clarity | CLEARComment: Testing | | EXTERNAL | | | | performed at [facility] | | LAB | | | | [facility];[address] | | | | | | [place] | | | | | | [address] | | | | + + + + + + | Specific | 1.025Comment: Testing | 1.002 - 1.030 | EXTERNAL | | | [place], | performed at [facility] | | LAB | | | Urine | Health;[address] | | | | | | [place] | | | | | | [address] | | | | + + + + + + | Leukocyte | NEGATIVEComment: Testing | | EXTERNAL | | | Esterase, | performed at [facility] | | LAB | | | Urine | Health;[address] | | | | | | [place] | | | | | | [address] | | | | + + + + + + | Nitrite, | NEGATIVEComment: Testing | | EXTERNAL | | | Urine | performed at [facility] | | LAB | | | | Health;[address] | | | | | | [place] | | | | | | [address] | | | | + + + + + + | Urobilinoge | 0.2Comment: Testing | mg/dL | EXTERNAL | | | n, Urine | performed at [facility] | | LAB | | | | Health;[address] | | | | | | [place] | | | | | | [address] | | | | + + + + + + | Protein, | NEGATIVEComment: Testing | mg/dL | EXTERNAL | | | Urine | performed at [facility] | | LAB | | | | Health;[address] | | | | | | [place] | | | | | | [address] | | | | + + + + + + | pH, Urine | 5.5Comment: Testing | 5.0 - 8.0 | EXTERNAL | | | | performed at [facility] | | LAB | | | | [facility];[address] | | | | | | [place] | | | | | | [address] | | | | + + + + + + | Blood, | NEGATIVEComment: Testing | | EXTERNAL | | | Urine | performed at [facility] | | LAB | | | | Health;[address] | | | | | | [place] | | | | | | [address] | | | | + + + + + + | Ketones | NEGATIVEComment: Testing | mg/dL | EXTERNAL | | | | performed at [facility] | | LAB | | | | [facility];[address] | | | | | | [place] | | | | | | [address] | | | | + + + + + + | Bilirubin, | NEGATIVEComment: Testing | | EXTERNAL | | | Urine | performed at [facility] | | LAB | | | | [facility];[address] | | | | | | [place] | | | | | | [address] | | | | + + + + + + | Glucose, | NEGATIVEComment: Testing | mg/dL | EXTERNAL | | | Urine | performed at [facility] | | LAB | | | | Health;[address] | | | | | | [place] | | | | | | [address] | | | | + + + + + + | WBC, UA | NONE SEENComment: | 0 - 5 /hpf | EXTERNAL | | | | Testing performed at | | LAB | | | | [facility];[address] | | | | | | [place] | | | | | | [address] | | | | + + + + + + | RBC, UA | NONE SEENComment: | 0 - 2 /hpf | EXTERNAL | | | | Testing performed at | | LAB | | | | [facility];[address] | | | | | | [place] | | | | | | [address] | | | | + + + + + + | Epithelial | NONE SEENComment: | /lpf | EXTERNAL | | | Cells | Testing performed at | | LAB | | | | [facility];[address] | | | | | | [place] | | | | | | [address] | | | | + + + + + + | Bacteria, | 1+ (A)Comment: Testing | | EXTERNAL | | | UA | performed at [facility] | | LAB | | | | [facility];[address] | | | | | | [place] | | | | | | [address] | | | | + + + [...]
--- OUTSIDE RECORDS SUMMARY | ~2020-01-30 | XMS | Encounter Summary ---
Demographics + + + | Address | [address] | | | [place] [address] | + + + | Home Phone | | + + + | Preferred Language | Unknown | + + + | Marital Status | | + + + | Amish Affiliation | 1013 | + + + | Race | Unknown | + + + | Ethnic Group | Unknown | + + + Author + + + | Author | [facility] | | | and [place] | + + + | Organization | [facility] | [...] [place] | | | | | [address] | | + + + + + Care Team Providers + +------+ + | Care Cognos Architect Name | Role | Phone | + [...] + + | 08/24/ | Office | [facility] | [place], | Infected | | 2019 | Visit | INFECTIOUS DISEASE | Juan Chanel MD | hernioplasty mesh, | | | | [address] | [address] | subsequent encounter | | | | [place], [place] | [place] [address] | (Primary Dx); | | | | [address] | [phone] | Polymicrobial | | | | [phone] | | bacterial infection; | | | [...] [place] MD - 08/24/2019 10:00 AM PST [facility] Service: Infectious Diseases Outpatient Follow [...] Procedure: ERCP; Surgeon: Dc Naik MD; Location: [facility] ERCP N/A 02/12/2018 Procedure: ERCP; Surgeon: Dc Naik MD; Location: [facility] FRACTURE SURGERY 2011 skull/facial HARDWARE REMOVAL Right Hardware placement and removal thumb HERNIA REPAIR pt has 2 hernia repairs and 3rd revision on 12-18-14 hip screw removed Right 2013 Nasal reconstruction 1977 right hip/pelvis surgery 2012 [facility] 2011 UPPER GASTROINTESTINAL ENDOSCOPY UPPER GASTROINTESTINAL ENDOSCOPY N/A 10/23/2015 Procedure: EGD; Surgeon: Adrian Aponte MD; Location: [facility] UPPER GASTROINTESTINAL ENDOSCOPY N/A 11/18/2017 Procedure: EGD; Surgeon: Adrian Aponte MD; Location: [facility] XR LUMBAR SPINE COMPLETE [...] file Gets together: Not on file Attends worship service: Not on file Active member of [...] Requests LAC Special Requests Testing performed at [facility];[address] [place] [address];[place] [address] RESULT NO GROWTH 6 DAYS RESULT Testing performed at [facility], [address] [place] [address] Culture, Blood Result Value Ref Range Special Requests LEFT AC Special Requests Testing performed at [facility];[address] [place] [address];[place] [address] RESULT NO GROWTH 6 DAYS RESULT Testing performed at [facility], [address] [place] [address] Culture, Blood Result Value Ref Range Special Requests RIGHT HAND Special Requests Testing performed at [facility];[address] [place] [address];[place] [address] RESULT NO GROWTH 6 DAYS RESULT Testing performed at [facility], [address] [place] [address] Culture, Urine Result Value Ref Range RESULT NO GROWTH RESULT Testing performed at [facility], [address] [place] [address] MRSA NAAT Result Value Ref Range SOURCE: NARES(NOSE) Result NEGATIVE MRSNEG Culture, Body Fluid Sterile Result Value Ref Range Gram Stain Result 4+ WBC'S SEEN Gram Stain Result 1+ GRAM POSITIVE COCCI Gram Stain Result 3+ GRAM NEGATIVE RODS RESULT 2+ ESCHERICHIA COLI (A) RESULT 2+ MIXED GRAM POSITIVE DEEPA RESULT 2+ MIXED ANAEROBIC DEEPA RESULT Testing performed at [facility], [address] [place] [address] Susceptibility Escherichia coli - ANDREW Ampicillin SUSCEPTIBLE Sensitive Ampicillin + Sulbactam SUSCEPTIBLE Sensitive Cefepime SUSCEPTIBLE Sensitive Cefoxitin SUSCEPTIBLE Sensitive Ceftazidime SUSCEPTIBLE Sensitive Ceftriaxone SUSCEPTIBLE Sensitive Ciprofloxacin SUSCEPTIBLE Sensitive Gentamicin SUSCEPTIBLE Sensitive Levofloxacin SUSCEPTIBLE Sensitive Tobramycin SUSCEPTIBLE Sensitive Trimethoprim + Sulfamethoxazole* SUSCEPTIBLE Sensitive * Testing performed at [facility], [address] [place] [address] CBC with Differential Result Value Ref Range [...] Color, UA STRAW Clarity, UA CLEAR Specific [place], Urine 1.029 1.002 - 1.030 Leukocyte esterase, [...] clinic Polymicrobial bacterial infection Allergy to penicillin rn long term care (current) use of antibiotics - PICC removal [...] The patient will also need evaluation by graphics production specialist to undergo penicillin allergy t heathering. [...] Other drug allergy | + + | rn long term care (current) use of antibiotics | + + documented in this encounter
--- OUTSIDE RECORDS SUMMARY | ~2020-01-30 | XMS | Encounter Summary ---
Demographics + + + | Address | [address] | | | [place] [address] | + + + | Home Phone [...] Author | [facility] | | | and [place] | + + + | Organization | [facility] [...] [place] | | | | | [address] | | + + + + + Care Team Providers + +------+ + | Care Seasonal Driver Name | Role | Phone | [...] + + | 08/25/ | Documentati | [facility] | Shannan Pastrana | Results | | 2019 | on | INFECTIOUS DISEASE | Deidre Jean MD | ([facility], | | | | [address] | [address] | CRP, CBC, ESR) | | | | [place], [place] | [place] [address] | | | | | [address] | [phone] | | | | | [phone] | | | +--------+ + + + [...]
--- OUTSIDE RECORDS SUMMARY | ~2020-01-30 | XMS | Encounter Summary ---
Demographics + + + | Address | [address] | | | [place] [address] | + + + | Home Phone | | + + + | Preferred Language | Unknown | + + + | Marital Status | | + + + | Sabianist Affiliation | [id number] | + + + | Race | Unknown | + + + | Ethnic Group | Unknown | + + + Author + + + | Author | [facility] | | | and Alexana | + + + | Organization | [facility] | | | and Alexana [...] [place] | | | | | [address] | | + + + + + Care Team Providers + +------+ + | Care Simulation Technician Name | Role | Phone | [...] [address] | | | | | | ([facility]) | [place], [place] | | | | | | | [address] | | | | | | | Phone: | | | | | | | [phone] | | | | | | | Fax: | | | | | | | [phone] | | + + + + + [...] + + | 07/29/ | Hospital | [facility] | [place], | Intra-abdominal | | 2019 - | Encounter | [facility] [address] | [address] | abscess (HCC) | | | | [address] | [address] | (Primary Dx); | | 08/09/ | | [place], [place] | [place] [address] | Abdominal wall | | 2019 | | [address] | [phone] | abscess; History of | | | | [phone] | | ventral hernia | | | | | [place], | repair; History of | | | | | MD Michael [address] | allergy to | | | | | [address] | antibiotic agent; | | | | | [place] [address] | Abdominal pain, | | | | | [phone] | generalized; HTN | | | | | | (hypertension), | | | | | Kai Dunne DO | benign; History of | | | | | [address] | hernia repair; | | | | | [place] [address] | Gastroesophageal | | | | | [phone] | reflux disease, | | | | | | esophagitis presence | | | | | Elvi Bragg MD | not specified | | | | | [address] | | | | | | [place] [address] | | | | | | [phone] | | | | | | | | | | | | Marco Antonio Don MD | | | | | | [address] | | | | | | [place] [address] | | | | | | [phone] | | | | | | | [...] Value Units Date/Time Culture, Body Fluid Sterile [[id number]] (Abnormal) (Susceptibility) Collected: 07/30/199 Order Status: Completed [...] MIXED ANAEROBIC DEEPA RESULT Testing performed at [facility], [address] [place] [address] Susceptibility Escherichia coli (1) Antibiotic Interpretation Microscan [...] Sensitive SUSCEPTIBLE ANDREW Final Testing performed at [facility], [address] [place] [address] 69885 MRSA NAAT [[id number]] Collected: 07/29/192256 Order Status: Completed Lab Status: Final result Updated: 07/30/193 Specimen: Tissue from Nares SOURCE: NARES(NOSE) Result NEGATIVE Comment: Testing performed at [facility];[address] [place] [address] Culture, Blood [[id number]] Collected: 07/29/192222 Order Status: Completed Lab Status: Final result Updated: 08/05/19605 Specimen: Peripheral Blood Special Requests RIGHT HAND Special Requests Testing performed at [facility];[address] [place] [address] 51562 RESULT NO GROWTH 6 DAYS RESULT Testing performed at [facility], [address] [place] [address] 21577 Comment: Testing performed at [facility], [address] [place] [address]8716 Culture, Blood [[id number]] Collected: 07/29/192215 Order Status: Completed Lab Status: Final result Updated: 08/05/19605 Specimen: Peripheral Blood Special Requests LEFT AC Special Requests Testing performed at [facility];[address] [place] [address] 19116 RESULT NO GROWTH 6 DAYS RESULT Testing performed at [facility], [address] [place] [address] 15485 Comment: Testing performed at [facility], [address] [place] [address] 08273 Culture, Urine [[id number]] Collected: 07/29/192038 Order Status: Completed Lab Status: Final result Updated: 07/31/19 1140 Specimen: Urine, Clean Catch RESULT NO GROWTH RESULT Testing performed at [facility], [address] [place] [address] 17729 Comment: Testing performed at [facility], [address] [place] [address] 98736 Culture, Blood [[id number]] Collected: 07/29/192037 Order Status: Completed Lab Status: Final result Updated: 08/05/19605 Specimen: Peripheral Blood Special Requests LAC Special Requests Testing performed at [facility];[address] [place] [address] 15450 RESULT NO GROWTH 6 DAYS RESULT Testing performed at [facility], [address] [place] [address] Comment: Testing performed at [facility], [address] [place] [address] 17905 Culture, Blood [[id number]] Collected: 07/29/19 1910 Order Status: Canceled Lab Status: No result Specimen: Peripheral Blood Influenza A and B RNA, NAAT [[id number]] Collected: 07/29/19 1656 Order Status: Completed Lab Status: Final result Updated: 07/29/19 1724 Influenza A NEGATIVE Influenza B NEGATIVE Comment: Testing performed by Molecular Method[employer] Testing performed at [facility];[address] [place] [address];[place] [address] Flu Swab Collection [[id number]] Collected: 07/29/19 1630 Order Status: Completed Lab Status: Final result Updated: 07/29/19 1637 Specimen: Tissue from Nasopharynx Collection SPECIMEN RECEIVED IN LAB Comment: Testing performed at [facility];[address] [place] [address] 80193 Recent Radiology Results Recent Results (from the [...] Mild facet arthropathy. Mild spinal canal stenosis. Uwpj-tf-viipebpj lateral recess stenosis. Mild bilateral neural foraminal stenosis. L4-5: The disc is preserved. Minimal disc bulge. Xiue-wu-rbphyhlc facet arthropathy. No significant spinal canal stenosis. Uhse-fs-skfhxmuv left and mild right neural foraminal stenosis. L5-S1: The disc is preserved. Minimal disc bulge. Moderate to severe facet arthropathy, left worse than right with left facet joint effusion and associated periarticular edema.. No significant spinal canal stenosis. Qhjg-sn-mgxymwic bilateral neural foraminal stenosis. Paraspinal musculature and paravertebral soft tissues: Normal. Impression 1. No substantial interval change. 2. No new disc herniation or high-grade stenosis. 3. Mild spinal canal stenosis at L2-3 and L3-4. 4. Multilevel fvdm-ib-upwthokh neural foraminal stenosis. 5. Moderate to severe [...] up: Allison Fairchild NP [address] [facility] [address] [facility] [address] Schedule an appointment as soon as possible for a visit in 1 week Jamie Bentley MD [address] [facility] 101 [facility] [phone] Schedule an appointment as soon as possible for a visit in 1 week possible infected mesh Shannan Pastrana MD [address] [facility] [phone] Schedule an appointment as soon as possible [...] Bragg MD - 08/08/2019 6:04 PM PST [facility] Service: Hospitalist Progress Note Hospital Day: LOS: [...] Mild facet arthropathy. Mild spinal canal stenosis. Bsld-zr-njmdmtjk lateral recess stenosis. Mild bilateral neural foraminal stenosis. L4-5: The disc is preserved. Minimal disc bulge. Axqf-zs-owrahhec facet arthropathy. No significant spinal canal stenosis. Tfsf-yh-sxcwddwe left and mild right neural foraminal stenosis. L5-S1: The disc is preserved. Minimal disc bulge. Moderate to severe facet arthropathy, left worse than right with left facet joint effusion and associated periarticular edema.. No significant spinal canal stenosis. Aavl-tv-vxojeokp bilateral neural foraminal stenosis. Paraspinal musculature and paravertebral soft tissues: Normal. Impression 1. No substantial interval change. 2. No new disc herniation or high-grade stenosis. 3. Mild spinal canal stenosis at L2-3 and L3-4. 4. Multilevel xsyl-kr-fswjvrbg neural foraminal stenosis. 5. Moderate to severe [...] Mild facet arthropathy. Mild spinal canal stenosis. Lqeu-wm-dwrpidpa lateral recess sten osis. Mild bilateral neural foraminal stenosis. L4-5: The disc is preserved. Minimal disc b ulge. Iuxh-xs-iivohjts facet arthropathy. No significant spinal canal stenosis. Mild-to-mo derate left and mild right neural foraminal stenosis. L5-S1: The disc is preserved. Minimal disc bulge. Moderate to severe facet arthropathy, left worse than right with left facet luis miguel nt effusion and associated periarticular edema.. No significant spinal canal stenosis. Mil t-ax-fcytrfff bilateral neural foraminal stenosis. Paraspinal musculature and paravertebral soft tissues: Normal. 1. No substantial interval change. 2. No new disc herniation or high-grade stenosis. 3. Mil d spinal canal stenosis at L2-3 and L3-4. 4. Multilevel vkwl-px-pydszrti neural foraminal st enosis. 5. Moderate to [...] this note might be different from the [facility] Service: Infectious Diseases Progress Note Hospital [...] intact. Follows commands. LABS: MICRO Culture, Blood [[id number]] Collected: 07/29/192215 Order Status: Completed Specimen: Peripheral Blood Updated: 08/05/19605 Special Requests LEFT AC Special Requests Testing performed at [facility];[address] [place] [address] 35995 RESULT NO GROWTH 6 DAYS RESULT Testing performed at [facility], [address] [place] [address] Comment: Testing performed at [facility], [address] [place] [address] 18917 Culture, Blood [[id number]] Collected: 07/29/192222 Order Status: Completed Specimen: Peripheral Blood Updated: 08/05/19605 Special Requests RIGHT HAND Special Requests Testing performed at [facility];[address] [place] [address] 81550 RESULT NO GROWTH 6 DAYS RESULT Testing performed at [facility], [address] [place] [address] 34512 Comment: Testing performed at [facility], [address] [place] [address] 96428 Culture, Blood [[id number]] Collected: 07/29/192037 Order Status: Completed Specimen: Peripheral Blood Updated: 08/05/19 0606 Special Requests LAC Special Requests Testing performed at [facility];[address] [place] [address] 79881 RESULT NO GROWTH 6 DAYS RESULT Testing performed at [facility], [address] [place] [address] 86666 Comment: Testing performed at [facility], [address] [place] [address] 50160 Culture, Blood [[id number]] Collected: 07/29/191909 Order Status: Canceled Specimen: Peripheral Blood Culture, Body Fluid Sterile [[id number]] (Abnormal) Collected: 07/30/19 112 Order Status: Completed Specimen: Body Fluid from Abscess Updated: 08/03/1938 Gram Stain Result -- 4+ WBC'S SEEN Gram Stain Result -- 1+ GRAM POSITIVE COCCI Gram Stain Result -- 3+ GRAM NEGATIVE RODS RESULT --Abnormal 2+ ESCHERICHIA COLI Abnormal RESULT -- 2+ MIXED GRAM POSITIVE DEEPA RESULT -- 2+ MIXED ANAEROBIC DEEPA RESULT Testing performed at [facility], [address] [place] [address] 24413 Susceptibility Escherichia coli (1) Antibiotic Interpretation Vitek [...] Sensitive SUSCEPTIBLE ANDREW Final Testing performed at [address] [address] Culture, Urine [[id number]] Collected: 07/29/192038 Order Status: Completed Specimen: Urine, Clean Catch Updated: 07/31/19 1140 RESULT NO GROWTH RESULT Testing performed at [facility], [address] [place] [address] Comment: Testing performed at [facility], [address] [place] [address] Flu Swab Collection [[id number]] Collected: 07/29/19 1630 Order Status: Completed Specimen: Tissue from Nasopharynx Updated: 07/29/19 1637 Collection SPECIMEN RECEIVED IN LAB Comment: Testing performed at [facility];[address] [place] [address] 33966 Influenza A and B RNA, NAAT [[id number]] Collected: 07/29/19 1656 Order Status: Completed Updated: 07/29/19 1724 Influenza A NEGATIVE Influenza B NEGATIVE Comment: Testing performed by [employer] Method[employer] Testing performed at [facility];[address] [place] [address] 19858 MRSA NAAT [[id number]] Collected: 07/29/19 2257 Order Status: Completed Specimen: Tissue from Nares Updated: 07/30/19 0023 SOURCE: NARES(NOSE) Result NEGATIVE Comment: Testing performed at [facility];[address] [place] [address] 77002 All labs were reviewed.Data: Recent Results (from [...] under the care of Dr. Jamie Bentley, [facility] surgery -He had been previously under the care of Dr. Rd Busby, [facility] but he and his jenifer pinedo indicate wanting to continue Infectious Diseases under [facility] at this time -Patient is not septic -He has history of penicillin allergy; although anaphylaxis is listed as a reaction in wy s chart, he really does not know [...] outpatient in 2 wee ks. Dictation software, YouOS, used which may contain error for similar sounding words even af ter review. Personal communication requested for any clarification. Portions of this chart may have been copied from previous notes for continuity of care purp ose Shannan Pastrana MD Infectious Diseases 08/07/2019 an, Brittny blair MD - 08/07/2019 3:18 PM PSTFormatting of this note might be different from the origin [facility] Service: Hospitalist Progress Note Hospital Day: [...] Mild facet arthropathy. Mild spinal canal stenosis. Xxtx-ei-wzdekwri lateral recess stenosis. Mild bilateral neural foraminal stenosis. L4-5: The disc is preserved. Minimal disc bulge. Sgqe-fn-egdhdazw facet arthropathy. No significant spinal canal stenosis. Jzqs-qj-jxgcgzgf left and mild right neural foraminal stenosis. L5-S1: The disc is preserved. Minimal disc bulge. Moderate to severe facet arthropathy, left worse than right with left facet joint effusion and associated periarticular edema.. No significant spinal canal stenosis. Khsx-fy-bxsnkpqh bilateral neural foraminal stenosis. Paraspinal musculature and paravertebral soft tissues: Normal. Impression 1. No substantial interval change. 2. No new disc herniation or high-grade stenosis. 3. Mild spinal canal stenosis at L2-3 and L3-4. 4. Multilevel ncta-sl-bjpuxwqv neural foraminal stenosis. 5. Moderate to severe [...] 58 y.o. male patient who presented to [facility] with a diagn osis of abdominal wall [...] stent placement in iliac artery, on chronic specialist cheri anticoagulation, TBI, hx C.Diff colitis, HCV infection, anxiety and depression, and mult iple abdominal surgeries to include 3 hernia repairs, [facility]. -07/30/19:CT guided abscess drainage [...] plan was discussed with Dr. Diaz is telephone information clerk for the acute care s urgery service. [...] HTN (hypertension), benign Signed: Shraddha Majano PA-C [facility] 08/07/2019 Portions of this chart may have been created with voice recognition software. Occasional wr soham-word or "sound-alike" substitutions may have occurred, even after review, due to the inh erent limitations of voice recognition software. Please read the chart carefully and recogni ze, using context, where these substitutions have occurred. Personal communication is reques freny for any clarifications. Catalino Farley MD - 08/06/2019 11:49 AM PST [facility] Service: Hospitalist Progress Note Hospital Day: LOS: [...] Elvi Farley MD - 3:07 PM PST [facility] Service: Hospitalist Progress Note Hospital Day: LOS: [...] abscess and hx of TBI. Pts S.O. Teoodra at bedside where she has been for [...] they have no other real support in [place] where the y live. Teodora expresses deep katty that has gotten her through very difficult times. She is grateful for all the care and compassion form all the staff at [facility]. She sees blessings i n the midst [...] might be di fferent from the original. [facility] Service: Infectious Diseases Progress Note Hospital Day: [...] LEFT AC Special Requests Testing performed at [facility];[address] [place] [address] 75726 RESULT NO GROWTH 6 DAYS RESULT Testing performed at [facility], [address] [place] [address]247 Comment: Testing performed at [facility], [address] [place] [address] 25139 Culture, Blood [[id number]] Collected: 07/29/192222 Order Status: Completed Specimen: Peripheral Blood Updated: 08/05/19605 Special Requests RIGHT HAND Special Requests Testing performed at [facility];[address] [place] [address] 08703 RESULT NO GROWTH 6 DAYS RESULT Testing performed at [facility], [address] [place] [address] 14509 Comment: Testing performed at [facility], [address] [place] [address] 18983 Culture, Blood [[id number]] Collected: 07/29/192037 Order Status: Completed Specimen: Peripheral Blood Updated: 08/05/19605 Special Requests LAC Special Requests Testing performed at [facility];[address] [place] [address] 72250 RESULT NO GROWTH 6 DAYS RESULT Testing performed at [facility], [address] [place] [address] 63739 Comment: Testing performed at [facility], [address] [place] [address] 27930 Culture, Blood [[id number]] Collected: 07/29/19 1910 Order Status: Canceled Specimen: Peripheral Blood Culture, Body Fluid Sterile [[id number]] (Abnormal) Collected: 07/30/19 1129 Order Status: Completed Specimen: Body Fluid from Abscess Updated: 08/03/19 0638 Gram Stain Result -- 4+ WBC'S SEEN Gram Stain Result -- 1+ GRAM POSITIVE COCCI Gram Stain Result -- 3+ GRAM NEGATIVE RODS RESULT --Abnormal 2+ ESCHERICHIA COLI Abnormal RESULT -- 2+ MIXED GRAM POSITIVE DEEPA RESULT -- 2+ MIXED ANAEROBIC DEEPA RESULT Testing performed at [facility], [address] [place] [address] 26728 Susceptibility Escherichia coli (1) Antibiotic Interpretation Vitek [...] Sensitive SUSCEPTIBLE ANDREW Final Testing performed at [facility], [address] [place] [address] 90074 Culture, Urine [[id number]] Collected: 07/29/192038 Order Status: Completed Specimen: Urine, Clean Catch Updated: 07/31/19 1140 RESULT NO GROWTH RESULT Testing performed at [facility], [address] [place] [address] 49031 Comment: Testing performed at [facility], [address] [place] [address] 52638 Flu Swab Collection [[id number]] Collected: 07/29/19 1630 Order Status: Completed Specimen: Tissue from Nasopharynx Updated: 07/29/19 1637 Collection SPECIMEN RECEIVED IN LAB Comment: Testing performed at [facility];[address] [place] [address] 10689 Influenza A and B RNA, NAAT [[id number]] Collected: 07/29/19 1656 Order Status: Completed Updated: 07/29/19 1724 Influenza A NEGATIVE Influenza B NEGATIVE Comment: Testing performed by [employer] [facility] Testing performed at [facility];[address] [place] [address] 60241 MRSA NAAT [[id number]] Collected: 07/29/19 2257 Order Status: Completed Specimen: Tissue from Nares Updated: 07/30/19 0023 SOURCE: NARES(NOSE) Result NEGATIVE Comment: Testing performed at [facility];[address] [place] [address];[place] [address] All labs were reviewed.Data: Recent Results (from [...] the c are of Dr. Jamie Bentley, [facility] surgery -He had been previously under the care of Dr. Rd Busby, [facility] but he and his travis thao indicate wanting to continue Infectious Diseases under [facility] at this time -Patient is not septic [...] planned. Will place PICC line. Dictation software, YouOS, used which may contain error for similar sounding words even af ter review. Personal communication requested for any clarification. Portions of this chart may have been copied from previous notes for continuity of care purp yun Pastrana MD Infectious Diseases 08/05/2019 Roderick Flores, [facility] - 08/05/2019 8:30 AM PSTFormatting of this note might be different from the leidy ginal. Progress Note Hospital Day: LOS: 7 days Post-Op Day: * No surgery found * Subjective This is a 58 y.o. male patient who presented to [facility] with a diagn osis of abdominal wall infection. 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 His WBC continues to be stable at 7.27, he has been afebrile and hemodynamically stable. D enies to have cream looking drainage and gas in drainage back. Assessment and Plan 58 year old male with PMH PAD s/p angioplasty with stent placement in iliac artery, on chronic specialist cheri anticoagulation, TBI, hx C.Diff colitis, HCV infection, anxiety and depression, and mult iple abdominal surgeries to include 3 hernia repairs, [facility]. -07/30/19:CT guided abscess drainage [...] injury HTN (hypertension), benign Signed: BECKIE Mendenhall [facility] Portions of [...] Jennifer, MD - 08/04/2019 3:08 PM PST [facility] Service: Hospitalist Progress Note Hospital Day: LOS: [...] Bragg MD 08/04/2019 3:08 PM Harshad Flores, [facility] - 08/04/2019 10:00 AM PST Progress Note Hospital Day: LOS: 6 days Post-Op Day: * No surgery found * Subjective This is a 58 y.o. male patient who presented to [facility] with a diagn osis of abdominal wall infection. Events Overnight: Reza reports an uneventful night, he had approximately 60 cc of output on abdominal lweis in, this was mostly thick creamy brown drainage, nursing also noted gas in the drain bag. W BC this morning is stable at 8.20. Assessment and Plan 58 year old male with PMH PAD s/p angioplasty with stent placement in iliac artery, on chronic specialist cheri anticoagulation, TBI, hx C.Diff colitis, HCV infection, anxiety and depression, and mult iple abdominal surgeries to include 3 hernia repairs, presents to [facility] with abdominal wall i nfection/abscess. -07/30/19: CT [...] was discussed with Dr. Valencia who is telephone information clerk for the acute care surgery service. Scheduled [...] injury HTN (hypertension), benign Signed: Harshad Bar [facility] Portions of [...] might be different fr om the original. [facility] Service: Hospitalist Progress Note Hospital Day: LOS: [...] Funk MD - 08/03/2019 11:25 AM PST [facility] Service: Infectious Disease Progress Note Hospital Day: [...] COCCI Gram Stain Result Testing performed at [facility];[address] [place] [address];[place] [address] RESULT Abnormal 2+ ESCHERICHIA COLI RESULT Abnormal 2+ STREPTOCOCCUS GORDONII RESULT Abnormal 2+ PREVOTELLA ORALIS [facility] Susceptibility Escherichia coli ANDREW Ampicillin SUSCEPTIBLE Sensitive [...] Vancomycin SUSCEPTIBLE Sensitive1 1 Testing performed at [facility], [address] [place] [address]29 Specimen Collected: 07/04/19 19:30 Last Resulted: 07/09/19 [...] the c are of Dr. Jamie Bentley, [facility] surgery -He had been previously under the care of Dr. Rd Busby, [facility] but he and his travis thao indicate wanting to continue Infectious Diseases under [facility] at this time -Patient is not septic [...] Farley MD - 08/02/2019 2:31 PM PST [facility] Service: Hospitalist Progress Note Hospital Day: LOS: [...] Interventional Radiology Progress Note Patient Name: Reza eCspedes Date of : 1960 Consulting Provider: Sujata [...] abdomen after the administration of 100 mL [id number] intravenous contrast. Mu ltiplanar reconstructions. At least [...] difficulty. Three-way stopcock was placed and staff psychiatrist informed to flush twice daily with 10 [...] M D - 08/01/2019 12:04 PM PST [facility] Service: Infectious Disease Progress Note Hospital Day: [...] COCCI Gram Stain Result Testing performed at [facility];[address] [place] [address] RESULT Abnormal 2+ ESCHERICHIA COLI RESULT Abnormal 2+ STREPTOCOCCUS GORDONII RESULT Abnormal 2+ PREVOTELLA ORALIS [facility] Susceptibility Escherichia coli ANDREW Ampicillin SUSCEPTIBLE Sensitive [...] Vancomycin SUSCEPTIBLE Sensitive1 1 Testing performed at [facility], [address] [place] [address] Specimen Collected: 07/04/19 19:30 Last Resulted: 07/09/19 [...] the c are of Dr. Jamie Bentley, [facility] surgery -He had been previously under the care of Dr. Rd Busby, [facility] ID but he and his travis thao indicate wanting to continue Infectious Diseases under [facility] at this time -Patient is not septic [...] to inpt room 424-1 via stretcher by cyber transport systems specialist. Electronically signed by ELLIE Mcdonald 07/30/2019 11:04 AM Farhan Ortega [facility] - 07/29/2019 8:08 PM PSTRx Admission Med ication History Note I have reviewed the medication history for appropriate doses obtained by: ED Pharmacist After reviewing the home medication list : I agree with the home medications list. Confirmed SOFTWARE INTEGRATION DEVELOPER medications with patient and insurance fill history. Adjusted SOFTWARE INTEGRATION DEVELOPER medications according to the endoscope technician note below. - removed omeprazole. Family [...] D?MRN: | | | | | | [id number] | | | [id number] | | | riteri | | | [...] | | | St. | | | [place] | | | y | | | [...] | | | St. | | | [place] | | | y | | | [...] | | | St. | | | [place] | | | y H. | | [...] | | | St. | | | [place] | | | y H. | | [...] | | | St. | | | [place] | | | y H. | | [...] | | | St. | | | [place] | | | y H. | | [...] | | | S, | | | CPA TAX-C | | | Nurse | | | [...] | | | | | performed at [facility], [address] | | | | | | [facility], | | | | | | [place] [address] | | | | + + + + + + + + | Specimen | + + | Blood | + + + + + + + | Performing | Address | City/State/Zipcode | Phone Number | | Organization | | | | + + + + + | [facility] | [address] | [place] [address] | [phone] | + + + + + CBC [...] 0.09Comment: Testing | 0.00 - 0.10 | [facility] | | | Absolute | performed at [facility];[address] | [address] | LABORATORY | | | | [address];[place], [place] | | | | | | [address] | | | | + + + + + + + + | Specimen | + + | Blood | + + + + + + + | Performing | Address | City/State/Zipcode | Phone Number | | Organization | | | | + + + + + | [facility] | [address] | [place] [address] | [phone] | + + + + + CBC [...] | | | Absolute | performed at [facility], [address] | [address]/u[address] | LABORATORY | | | | [address], | | | | | | [place] [address] | | | | + + + + + + + + | Specimen | + + | Blood | + + + + + + + | Performing | Address | City/State/Zipcode | Phone Number | | Organization | | | | + + + + + | [facility] | [address] | [place] [address] | [phone] | + + + + + Basic [...] | | | | | performed at [facility], [address] | | | | | | [address] [facility], | | | | | | [place] [address] | | | | + + + + + + + + | Specimen | + + | Blood | + + + + + + + | Performing | Address | City/State/Zipcode | Phone Number | | Organization | | | | + + + + + | [facility] | [address] | [place] [address] | [phone] | + + + + + MRI [...] and L3-4. | | | 4. Multilevel yobs-gi-tdohoxns neural foraminal stenosis. 5. | | | [...] | | | Mild spinal canal stenosis. Beln-hi-yqhrxkby lateral recess | | | stenosis. Mild bilateral neural foraminal stenosis. L4-5: The | | | disc is preserved. Minimal disc bulge. Mpkm-bb-dcghfzfw facet | | | arthropathy. No significant spinal canal stenosis. Zexz-wn-xtibuxmo | | | left and mild right neural foraminal stenosis. L5-S1: The disc is | | | preserved. Minimal disc bulge. Moderate to severe facet | | | arthropathy, left worse than right with left facet joint effusion and | | | associated periarticular edema.. No significant spinal canal | | | stenosis. Izdf-xn-zucftwfb bilateral neural foraminal stenosis. | | | [...] arthropathy. Mild spinal canal stenosis. | | Mpuu-od-qdqqafwo lateral recess stenosis. Mild bilateral neural | | foraminal stenosis. | | | | L4-5: The disc is preserved. Minimal disc bulge. Lpno-mp-jspendjr | | facet arthropathy. No significant spinal canal stenosis. | | Pjzg-st-sccabzqv left and mild right neural foraminal stenosis. | | | | L5-S1: The disc is preserved. Minimal disc bulge. Moderate to severe | | facet arthropathy, left worse than right with left facet joint effusion | | and associated periarticular edema.. No significant spinal canal | | stenosis. Tnkq-yq-wgvcibdn bilateral neural foraminal stenosis. | | | | Paraspinal musculature and paravertebral soft tissues: Normal. | | | | IMPRESSION: | | 1. No substantial interval change. | | 2. No new disc herniation or high-grade stenosis. | | 3. Mild spinal canal stenosis at L2-3 and L3-4. | | 4. Multilevel osmj-iy-nrbkzkig neural foraminal stenosis. | | 5. Moderate [...] Testing | 1.7 - 2.4 mg/dL | [facility] | | | | performed at [facility], [address] | | LABORATORY | | | | [place], | | | | | | [place] [address] | | | | + + + + + + + + | Specimen | + + | Blood | + + + + + + + | Performing | Address | City/State/Zipcode | Phone Number | | Organization | | | | + + + + + | [facility] | [address] | [place] [address] | [phone] | + + + + + CBC [...] | | | Absolute | performed at [facility], [address] | K/uL | LABORATORY | | | | [place], | | | | | | [place] [address] | | | | + + + + + + + + | Specimen | + + | Blood | + + + + + + + | Performing | Address | City/State/Zipcode | Phone Number | | Organization | | | | + + + + + | [facility] | [address] | [place] [address] | [phone] | + + + + + Basic [...] | | | | | | MDRD [facility] traceable | | | | | | equation.Testing | | | | | | performed at [facility], [address] | | | | | | [facility], | | | | | | [place] [address] | | | | + + + + + + + + | Specimen | + + | Blood | + + + + + + + | Performing | Address | City/State/Zipcode | Phone Number | | Organization | | | | + + + + + | [facility] | [address] | [place] [address] | [phone] | + + + + + Basic [...] | >60Comment: GFR <60: | >60 | [facility] | | | GFR | CHRONIC KIDNEY [...] | | | | | | MDRD [facility] traceable | | | | | | equation.Testing | | | | | | performed at [facility], [address] | | | | | | [facility], | | | | | | [place] [address] | | | | + + + + + + + + | Specimen | + + | Blood | + + + + + + + | Performing | Address | City/State/Zipcode | Phone Number | | Organization | | | | + + + + + | [facility] | [address] | [place] [address] | [phone] | + + + + + CBC [...] | | | Absolute | performed at [facility], [address] | K/uL | LABORATORY | | | | [facility], | | | | | | [place] [address] | | | | + + + + + + + + | Specimen | + + | Blood | + + + + + + + | Performing | Address | City/State/Zipcode | Phone Number | | Organization | | | | + + + + + | [facility] | [address] | [place] [address] | [phone] | + + + + + Basic [...] | >60Comment: GFR <60: | >60 | [facility] | | | GFR | CHRONIC KIDNEY [...] | | | | | performed at [facility], [address] | | | | | | [facility], | | | | | | [place] [address] | | | | + + + + + + + + | Specimen | + + | Blood | + + + + + + + | Performing | Address | City/State/Zipcode | Phone Number | | Organization | | | | + + + + + | [facility] | [address] | [place] [address] | [phone] | + + + + + CBC [...] | | | Absolute | performed at [facility], [address] | K[address] | LABORATORY | | | | [place], | | | | | | [place] [address] | | | | + + + + + + + + | Specimen | + + | Blood | + + + + + + + | Performing | Address | City/State/Zipcode | Phone Number | | Organization | | | | + + + + + | [facility] | [address] | [place] [address] | [phone] | + + + + + Comprehensive [...] | | | | | performed at [facility], [address] | | | | | | [place], | | | | | | [place] [address] | | | | + + + + + + + + | Specimen | + + | Blood | + + + + + + + | Performing | Address | City/State/Zipcode | Phone Number | | Organization | | | | + + + + + | [facility] | [address] | [place] [address] | [phone] | + + + + + CBC [...] | | | | | | [place] [address] | | | | + + + + + + + + | Specimen | + + | Blood | + + + + + + + | Performing | Address | City/State/Zipcode | Phone Number | | Organization | | | | + + + + + | [facility] | [address] | [place] [address] | [phone] | + + + + + Magnesium (08/04/2019 4:35 AM PST) + + + + + + | Component | Value | Ref Range | Performed | Pathologist | | | | | At | Signature | + + + + + + | Magnesium | 2.0Comment: Testing | 1.7 - 2.4 mg/dL | [facility] | | | | performed at [facility], [address] | | LABORATORY | | | | [place], | | | | | | [place] [address] | | | | + + + + + + + + | Specimen | + + | Blood | + + + + + + + | Performing | Address | City/State/Zipcode | Phone Number | | Organization | | | | + + + + + | [facility] | [address] | [place] [address] | [phone] | + + + + + Comprehensive [...] | | | | | performed at [facility], [address] | | | | | | [place] [facility], | | | | | | [place] [address] | | | | + + + + + + + + | Specimen | + + | Blood | + + + + + + + | Performing | Address | City/State/Zipcode | Phone Number | | Organization | | | | + + + + + | [facility] | [address] | [place] [address] | [phone] | + + + + + CBC [...] 0.10Comment: Testing | 0.00 - 0.10 | [facility] | | | Absolute | performed at [facility], [address] | [address] | LABORATORY | | | | [address] [address], | | | | | | [place] [address] | | | | + + + + + + + + | Specimen | + + | Blood | + + + + + + + | Performing | Address | City/State/Zipcode | Phone Number | | Organization | | | | + + + + + | [facility] | [address] | [place] [address] | [phone] | + + + + + CT [...] Testing | 2.3 - 4.8 mg/dL | [facility] | | | | performed at [facility] | | LABORATORY | | | | [address] [facility];[place], [place] | | | | | | [address] | | | | + + + + + + + + | Specimen | + + | Blood | + + + + + + + | Performing | Address | City/State/Zipcode | Phone Number | | Organization | | | | + + + + + | [facility] | [address] | [place] [address] | [phone] | + + + + + Magnesium (08/02/2019 4:46 AM PST) + + + + + + | Component | Value | Ref Range | Performed | Pathologist | | | | | At | Signature | + + + + + + | Magnesium | 1.7Comment: Testing | 1.7 - 2.4 mg/dL | [facility] | | | | performed at [facility];[address] | | LABORATORY | | | | [address];[place] | | | | | | [address] | | | | + + + + + + + + | Specimen | + + | Blood | + + + + + + + | Performing | Address | City/State/Zipcode | Phone Number | | Organization | | | | + + + + + | [facility] | [address] | [place] [address] | [phone] | + + + + + Basic [...] 8.4 (L) | 8.5 - 10.5 | [facility] | | | | | mg/dL | LABORATORY | | + + + + + + | Estimated | >60Comment: GFR <60: | >60 | [facility] | | | GFR | CHRONIC KIDNEY [...] | | | | | | MDRD [facility] traceable | | | | | | equation.Testing | | | | | | performed at [facility] | | | | | | [facility];[place], [place] | | | | | | [address] | | | | + + + + + + + + | Specimen | + + | Blood | + + + + + + + | Performing | Address | City/State/Zipcode | Phone Number | | Organization | | | | + + + + + | [facility] | [address] | [place] [address] | [phone] | + + + + + CBC [...] | | | Absolute | performed at [facility];[address] | [address] | LABORATORY | | | | [address];[place], [place] | | | | | | [address] | | | | + + + + + + + + | Specimen | + + | Blood | + + + + + + + | Performing | Address | City/State/Zipcode | Phone Number | | Organization | | | | + + + + + | [facility] | [address] | [place] [address] | [phone] | + + + + + Basic [...] | >60Comment: GFR <60: | >60 | [facility] | | | GFR | CHRONIC KIDNEY [...] | | | | | | MDRD [facility] traceable | | | | | | equation.Testing | | | | | | performed at [facility], [address] | | | | | | [facility], | | | | | | [place] [address] | | | | + + + + + + + + | Specimen | + + | Blood | + + + + + + + | Performing | Address | City/State/Zipcode | Phone Number | | Organization | | | | + + + + + | [facility] | [address] | [place] [address] | [phone] | + + + + + CBC [...] | | | Absolute | performed at [facility], [address] | K/u[address] | LABORATORY | | | | [facility] [place], | | | | | | [place] [address] | | | | + + + + + + + + | Specimen | + + | Blood | + + + + + + + | Performing | Address | City/State/Zipcode | Phone Number | | Organization | | | | + + + + + | [facility] | [address] | [place] [address] | [phone] | + + + + + Basic [...] | >60Comment: GFR <60: | >60 | [facility] | | | GFR | CHRONIC KIDNEY [...] | | | | | performed at [facility], [address] | | | | | | [facility], | | | | | | [place] [address] | | | | + + + + + + + + | Specimen | + + | Blood | + + + + + + + | Performing | Address | City/State/Zipcode | Phone Number | | Organization | | | | + + + + + | [facility] | [address] | [place] [address] | [phone] | + + + + + CBC [...] | | | Absolute | performed at [facility], [address] | K/u[address] | LABORATORY | | | | [place], | | | | | | [place] [address] | | | | + + + + + + + + | Specimen | + + | Blood | + + + + + + + | Performing | Address | City/State/Zipcode | Phone Number | | Organization | | | | + + + + + | [facility] | [address] | [place] [address] | [phone] | + + + + + Culture, [...] | LABORATORY | | | | Blvd, [place], [place] | | | | | | [address] | | | | + + + [...] Comment: Testing | | | performed at [facility], | | | [address] [facility] | | | [place] | | | [address] | +---+ + + + + + + | Performing | Address | City/State/Zipcode | Phone Number | | Organization | | | | + + + + + | [facility] | [address] | [place] [address] | [phone] | + + + + + CT [...] and culture. A | | | 12 Filipino locking pigtail catheter was placed. Signed by: [...] collection and the tract dilated. A 12 Filipino locking pigtail | | | catheter is [...] collection and the tract dilated. A 12 Filipino locking pigtail | | catheter is then [...] stain and culture. A 12 | | Filipino locking pigtail catheter was placed. | | [...] | | | Absolute | performed at [facility];[address] | [address] | LABORATORY | | | | [address];[place] | | | | | | [address] | | | | + + + + + + + + | Specimen | + + | | + + + + + + + | Performing | Address | City/State/Zipcode | Phone Number | | Organization | | | | + + + + + | [facility] | [address] | [place] [address] | [phone] | + + + + + PTT (07/30/2019 4:37 AM PST) + + + + + + | Component | Value | Ref Range | Performed | Pathologist | | | | | At | Signature | + + + + + + | PTT | 20 (L)Comment: Testing | 23 - 32 seconds | [facility] | | | | performed at [facility];[address] | | LABORATORY | | | | [address];[place] | | | | | | [address] | | | | + + + + + + + + | Specimen | + + | Blood | + + + + + + + | Performing | Address | City/State/Zipcode | Phone Number | | Organization | | | | + + + + + | [facility] | [address] | [place] [address] | [phone] | + + + + + Protime [...] | | | | | performed at [facility] | | | | | | [address] [facility];[place], [place] | | | | | | [address] | | | | + + + + + + + + | Specimen | + + | Blood | + + + + + + + | Performing | Address | City/State/Zipcode | Phone Number | | Organization | | | | + + + + + | [facility] | [address] | [place] [address] | [phone] | + + + + + Comprehensive [...] | >60Comment: GFR <60: | >60 | [facility] | | | GFR | CHRONIC KIDNEY [...] | | | | | performed at [facility], [address] | | | | | | [facility], | | | | | | [place] [address] | | | | + + + + + + + + | Specimen | + + | Blood | + + + + + + + | Performing | Address | City/State/Zipcode | Phone Number | | Organization | | | | + + + + + | [facility] | [address] | [place] [address] | [phone] | + + + + + Lactic Acid (07/30/2019 12:54 AM PST) + + + + + + | Component | Value | Ref Range | Performed | Pathologist | | | | | At | Signature | + + + + + + | Lactate, | 1.1Comment: Testing | 0.4 - 2.0 | [facility] | | | Serum | performed at [facility];[address] | mmol/L | LABORATORY | | | | [address];[place] | | | | | | [address] | | | | + + + + + + + + | Specimen | + + | Blood | + + + + + + + | Performing | Address | City/State/Zipcode | Phone Number | | Organization | | | | + + + + + | [facility] | [address] | [place] [address] | [phone] | + + + + + MRSA [...] [facility] | | | | performed at [facility];[address] | | LABORATORY | | | | [address];[place], [place] | | | | | | [address] | | | | + + + + + + + + | Specimen | + + | Tissue - Both | | anterior nares (body | | structure) | + + + + + + + | Performing | Address | City/State/Zipcode | Phone Number | | Organization | | | | + + + + + | [facility] | [address] | [place] [address] | [phone] | + + + + + Culture, [...] | [facility] | | | Requests | [facility];[address] | | LABORATORY | | | | [address];[place] [address] | | | | + + + + + + | RESULT | NO GROWTH 6 DAYS | | [facility] | | | | | | LABORATORY | | + + + + + + | RESULT | Testing performed at | | [facility] | | | | [facility], [address] | | LABORATORY | | | | [place] | | | | | | [address]Tahlezy: Testing | | | | | | performed at [facility], [address] | | | | | | [address] [place] | | | | | | [address] | | | | + + + + + + + + | Specimen | + + | Blood - Peripheral | | blood specimen | | (specimen) | + + + + + + + | Performing | Address | City/State/Zipcode | Phone Number | | Organization | | | | + + + + + | [facility] | [address] | [place] [address] | [phone] | + + + + + Lactic Acid (07/29/2019 10:16 PM PST) + + + + + + | Component | Value | Ref Range | Performed | Pathologist | | | | | At | Signature | + + + + + + | Lactate, | 1.3Comment: Testing | 0.4 - 2.0 | [facility] | | | Serum | performed at [facility];[address] | mmol/L | LABORATORY | | | | [address];[place] | | | | | | [address] | | | | + + + + + + + + | Specimen | + + | Blood | + + + + + + + | Performing | Address | City/State/Zipcode | Phone Number | | Organization | | | | + + + + + | [facility] | [address] | [place] [address] | [phone] | + + + + + Culture, [...] Special | Testing performed at | | [facility] | | | Requests | [facility];[address] | | LABORATORY | | | | [address];[place] [address] | | | | + + + + + + | RESULT | NO GROWTH 6 DAYS | | [facility] | | | | | | [facility] | | + + + + + + | RESULT | Testing performed at | | [facility] | | | | [facility], [address] [facility] | | LABORATORY | | | | [place] | | | | | | [address]Inbepnr: Testing | | | | | | performed at [facility], [address] | | | | | | [place] | | | | | | [address] | | | | + + + + + + + + | Specimen | + + | Blood - Peripheral | | blood specimen | | (specimen) | + + + + + + + | Performing | Address | City/State/Zipcode | Phone Number | | Organization | | | | + + + + + | [facility] | [address] | [place] [address] | [phone] | + + + + + Culture, [...] RESULT | Testing performed at | | [facility] | | | | [facility], [address] [facility] | | LABORATORY | | | | [address], [place], [place] | | | | | | [address]Tcomxzi: Testing | | | | | | performed at [facility], [address] | | | | | | [facility], | | | | | | [place] [address] | | | | + + + [...] [facility] | [address] | [place] [address] | [phone] | + + + + + Urinalysis [...] - 1.030 | [facility] | | | [place], | | | LABORATORY | | | [...] | | LABORATORY | | | | [facility];[address] [facility] | | | | | | [facility];[place] [address] | | | | + + + [...] | + + + + + | [facility] | [address] | [place] [address] | [phone] | + + + + + Culture, [...] | | LABORATORY | | | | Blvd;[place] [address] | | | | + + + + + + | RESULT | NO GROWTH 6 DAYS | | [facility] | | | | | | LABORATORY | | + + + + + + | RESULT | Testing performed at | | [facility] | | | | [facility], [address] [facility] | | LABORATORY | | | | [address] [place], [place] | | | | | | [address]Nuesimp: Testing | | | | | | performed at [facility], [address] | | | | | | [place], [place] | | | | | | [address] | | | | + + + + + + + + | Specimen | + + | Blood - Peripheral | | blood specimen | | (specimen) | + + + + + + + | Performing | Address | City/State/Zipcode | Phone Number | | Organization | | | | + + + + + | [facility] | [address] | [place] [address] | [phone] | + + + + + CT [...] | | | | | performed at [facility] | | | | | | [address];[place], [place] | | | | | | [address] | | | | + + + + + + + + | Specimen | + + | | + + + + + + + | Performing | Address | City/State/Zipcode | Phone Number | | Organization | | | | + + + + + | [facility] | [address] | [place] [address] | [phone] | + + + + + XR Chest PA and Lateral (07/29/2019 4:44 PM PST) + + | Specimen | + + | | + + + + + | Impressions | Performed At | + + + | No significant abnormality. Signed by: Trevni Emery, | [facility] | | Eladio [...] Collection | SPECIMEN RECEIVED IN | | [facility] | | | | LABComment: Testing | | LABORATORY | | | | performed at [facility];8 | | | | | | [facility];[place], [place] | | | | | | [address] | | | | + + + + + + + + | Specimen | + + | Tissue - Entire | | nasopharynx (body | | structure) | + + + + + + + | Performing | Address | City/State/Zipcode | Phone Number | | Organization | | | | + + + + + | [facility] | [address] | [place] [address] | [phone] | + + + + + C-Reactive Protein (07/29/2019 4:30 PM PST) + + + + + + | Component | Value | Ref Range | Performed | Pathologist | | | | | At | Signature | + + + + + + | CRP | 8.1 (H)Comment: Testing | <0.5 mg/dL | [facility] | | | | performed at [facility];[address] | | LABORATORY | | | | [address];[place], [place] | | | | | | [address] | | | | + + + + + + + + | Specimen | + + | Blood | + + + + + + + | Performing | Address | City/State/Zipcode | Phone Number | | Organization | | | | + + + + + | [facility] | [address] | [place] [address] | [phone] | + + + + + Lipase (07/29/2019 4:30 PM PST) + + + + + + | Component | Value | Ref Range | Performed | Pathologist | | | | | At | Signature | + + + + + + | Lipase | 26Comment: Testing | 12 - 53 U/L | Z[facility]IDA | | | | performed at [facility];[address] | | LABORATORY | | | | [address];[place] | | | | | | [address] | | | | + + + + + + + + | Specimen | + + | Blood | + + + + + + + | Performing | Address | City/State/Zipcode | Phone Number | | Organization | | | | + + + + + | [facility] | [address] | [place] [address] | [phone] | + + + + + Comprehensive [...] | | | | | performed at [facility] | | | | | | [facility];[place], [place] | | | | | | [address] | | | | + + + + + + + + | Specimen | + + | Blood | + + + + + + + | Performing | Address | City/State/Zipcode | Phone Number | | Organization | | | | + + + + + | [facility] | [address] | [place] [address] | [phone] | + + + + + CBC [...] | | | Absolute | performed at [facility];[address] | K/uL | LABORATORY | | | | [address];[place] | | | | | | [address] | | | | + + + + + + + + | Specimen | + + | Blood | + + + + + + + | Performing | Address | City/State/Zipcode | Phone Number | | Organization | | | | + + + + + | [facility] | [address] | [place] [address] | [phone] | + + + + + documented [...] | | | | | [facility] 07/29/19 at 2230 | | | | [...]
--- OUTSIDE RECORDS SUMMARY | ~2020-01-30 | XMS | Encounter Summary ---
Demographics + + + | Address | [address] | | | [place] [address] | + + + | Home Phone | | + + + | Preferred Language | Unknown | + + + | Marital Status | | + + + | Buddhism Affiliation | 1013 | + + + | Race | Unknown | + + + | Ethnic Group | Unknown | + + + Author + + + | Author | [facility] | | | and [place] | + + + | Organization | [facility] | | | and [place] [...] [place] | | | | | [address] | | + + + + + Care Team Providers + +------+ + | Care Cushion Sewer Name | Role | Phone | + [...] | | | | dysphagia | | [place] [address] | | | | | Other | | Phone: | | | | | dysphagia | | [phone] | | | | | [R13.19]Unsp | | Fax: | | | | | ecified | | [phone] | | | | | abdominal | | | | | | | pain [R10.9] | | | +--------+--------+ + + + + Encounter Details +--------+---------+ + + + | Date | Type | Department | Care Team | Description | +--------+---------+ + + + | 10/23/ | Surgery | [facility] | Adrian Aponte MD | EGD | | 2016 | | MED CTR MP INTRA OP | [address] | | | | | [address] | [place] | | | | | [place] | [address] | | | | | [address] | [phone] | | | | | [phone] | | | +--------+---------+ + + + [...] the physician who did your procedure at [phone] if you have any questions or experience any of the following: ? Increasing abdominal pain, nausea, or vomiting. ? Chills and fever over 101F. ? New abdominal swelling or bloating. ? Signs of rectal bleeding (black or red stool). If you cannot get a hold of your physician, then call the [facility] [phone] . If necessary, report to the Emergency Department at [facility]. Quit smoking: If you smoke or [...] 10/23/2015 | PROVATION | | 7:35 AMMRN: [id number] #: [id number] of : | | | 1960Admit Type: AmbulatoryAge: 54Room: [facility] 02Gender: MaleNote | | | Status: FinalizedAttending [...] the anesthesiologist and the | | | cardiovascular technician in the pre-procedure area in the [...] | | | AMScope Out: 8:09:58 AM [facility], [address] | | | [place] [address] | | | patient. Return to normal [...] |Scope Out: 8:09:58 AM | | | [facility], [address] , [place], [place] | | | [address] | | + + -+ + +---------+ [...] - | | | Negative for dysplasia. [facility]:C2NR GROSS DESCRIPTION: | | | Received in [...] | and slide preparation were performed by [employer], [address] | | [address] [facility] [address], [address], [place] [address] (Silk Screen Operator: Alex | | | Trevin Hathaway CLIA#: [id number]). Professional interpretation was | | | performed by [employer], [facility], | | | [address] [place] [address] (Silk Screen Operator: | | | Natan Carson M.D.; CLIA#: [id number]). Diagnostician: | | | Natan Carson MD [...]
--- OUTSIDE RECORDS SUMMARY | ~2020-01-30 | XMS | Encounter Summary ---
Demographics + + + | Address | [address] | | | [place] [address] | + + + | Home Phone | | + + + | Preferred Language | Unknown | + + + | Marital Status | | + + + | Mu-Ism Affiliation | 1013 | + + + | Race | Unknown | + + + | Ethnic Group | Unknown | + + + Author + + + | Author | [facility] | | | and [place] | + + + | Organization | [facility] [...] [address] | | | | | [place] | | | | | [address] | | + + + + + Care Team Providers + +------+ + | Care Neurology Technologist Name | Role | Phone | + +------+ + PCP | Unavailable | + +------+ + Encounter Details +--------+ + + + + | Date | Type | Department | Care Team | Description | +--------+ + + + + | 03/27/ | [facility] | [facility] | Jamie Bentley MD | Incisional hernia | | 2013 | Encounter | [facility] | [address] | | | | | [address] | [address] [place], [place] | | | | | [place], [place] | [address] | | | | | [address] | | | | | | [phone] | | | +--------+ + + + [...] Progress Notes Conversion Transaction, Provider Unknown - 03/27/2014 10:06 AM PDTFormatting of this note m ight be different from the original. Progress Notes by Bradley West RPH at 03/27/14 100 Author: Bradley West RPH Service: (none) Author Type: Pharmacist Filed: 03/27/141005 Date of Service: 03/27/141005 Status: Signed Roller Cleaner: Bradley West RPH (Pharmacist) Clinical Pharmacy Note: Renal Monitoring Reza Cespedes 53 y.o. male Ht Readings from Last 1 Encounters: 03/27/14 1.803 m (5' 11") Wt Readings from Last 1 Encounters: 03/27/14 86 kg (189 lb 9.5 oz) CREATININE Date Value Range Status 03/24/2014 0.93 0.70 - 1.30 mg/dL Final Testing performed at [facility];[address];[place] [address] CREATININE: 0.93 (03/24/14 1540) Estimated creatinine clearance - Cockcroft-Gault CrCl: 96.7 mL/min Pharmacy dosing for renal function per Dr. Bentley. Currently, there are no medications needing to be adjusted. Pharmacy will continue to monit or for changes in medication orders and in renal function and adjust accordingly. Bradley West [facility] 03/27/2014 10:06 AM docume nted in this encounter Plan of Treatment Not on filedocumented as of this encounter Visit Diagnoses + + | Diagnosis | + + | Incisional hernia Incisional hernia without mention of obstruction or gangrene | + + documented in this encounter
--- OUTSIDE RECORDS SUMMARY | ~2020-01-30 | XMS | Encounter Summary ---
Demographics + + + | Address | [address] | | | [place] [address] | + + + | Home Phone | | + + + | Preferred Language | Unknown | + + + | Marital Status | | + + + | Scientology Affiliation | 1013 | + + + | Race | Unknown | + + + | Ethnic Group | Unknown | + + + Author + + + | Author | [facility] | | | and [place] | + + + | Organization | [facility] | | | and [place] [...] [place] | | | | | [address] | | + + + + + Care Team Providers + +------+ + | Care Manager Council Name | Role | Phone | + [...] | | | [place] | [place] | | | | | [address] | [address] | | | | | [phone] | [phone] | | | | | | | [...] + + | PHOSPHORUS | Routin | 10/03/2013 | | Results for this | | | e | 4:05 PM | | procedure are in the | | | | PST | | results section. | + +--------+ + + + documented in this encounter Results Phosphorus (10/03/2013 4:05 PM PST) + + + + + + | Component | Value | Ref Range | Performed | Pathologist | | | | | At | Signature | + + + + + + | PHOSPHORUS | 4.1Comment: Testing | 2.3 - 4.8 mg/dL | EXTERNAL | | | | performed at [facility] | | LAB | | | | Health;[address] | | | | | | [place] | | | | | | [address] | | | | + + + [...]
--- OUTSIDE RECORDS SUMMARY | ~2020-01-30 | XMS | Encounter Summary ---
Demographics + + + | Address | [address] | | | [place] [address] | + + + | Home Phone | | + + + | Preferred Language | Unknown | + + + | Marital Status | | + + + | Caodaism Affiliation | 1013 | + + + | Race | Unknown | + + + | Ethnic Group | Unknown | + + + Author + + + | Author | [facility] | | | and [place] | + + + | Organization | [facility] | | | and [...] [place] | | | | | [address] | | + + + + + Care Team Providers + +------+ + | Care Poultry Pathologist Name | Role | Phone | + +------+ + | Allison Fairchild NP | PCP | | + +------+ + Reason for Visit + + + | Reason | Comments | + + + | Vomiting | | + + + Encounter Details +--------+ + + + + | Date | Type | Department | Care Team | Description | +--------+ + + + + | 01/21/ | Telephone | [facility] | Adrian Aponte MD | Vomiting | | 2018 | | GASTROENTEROLOGY | [address] [facility] | | | | | [address] [facility] | [place], [place] | | | | | [address] [place] | [address] | | | | | [address] | [phone] | | | | | [phone] | | | +--------+ + + + [...] | | + +------+--------+ + + | Hepatic Function | Lab | Routin | Biliary | Expected: 02/08/2018 | | Panel | | e | obstruction | (Approximate), | | | | | | Expires: 07/25/2018 | + +------+--------+ + + documented as of this encounter Visit Diagnoses + + | Diagnosis | + + | Biliary obstruction - Primary Obstruction of bile duct | + + documented in this encounter"
--- OUTSIDE RECORDS SUMMARY | ~2020-01-30 | XMS | Encounter Summary ---
Demographics + + + | Address | [address] | | | [place] [address] | + + + | Home Phone [...] | Author | [facility] | | | and [place] | + + + | Organization | [facility] [...] [address] | | | | | [facility] [place] | | | | | [address] | | + + + + + Care Team Providers + +------+ + | Care Orthotic Practitioner Name | Role | Phone | + +------+ + PCP | Unavailable | + +------+ + Encounter Details +--------+ + + + + | Date | Type | Department | Care Team | Description | +--------+ + + + + | 03/24/ | Hospital | [facility] | Conversion | | | 2013 | Encounter | [facility] | Transaction, | | | | | CLINIC [address] | Provider Unknown | | | | | [place], [place] | | | | | | [address] | (Fax) | | | | | [phone] | | | +--------+ + + + [...] EXTERNAL LAB | | Testing performed at [facility];[address] [place] [address];[place] [address] MRSA PCR | | | NEGATIVE Testing performed at | | | [address];[place] [address] | | + + + + +---------+ [...] EXTERNAL | | | | performed at [facility], [address] | | LAB | | | | [address] [place], | | | | | | [place] [address] | | | | + + + + + + | Red Blood | 4.58Comment: Testing | 4.20 - 5.70 | EXTERNAL | | | Cells | performed at [facility], [address] | M/uL | LAB | | | Counted | [address], | | | | | | [place] [address] | | | | + + + + + + | Hemoglobin | 14.2Comment: Testing | 13.2 - 17.0 | EXTERNAL | | | | performed at [facility], [address] | g/dL | LAB | | | | [address], | | | | | | [place] [address] | | | | + + + + + + | Hematocrit, | 43.3Comment: Testing | 39.0 - 50.0 % | EXTERNAL | | | POC | performed at [facility], [address] | | LAB | | | [address], | | | | | | [place] [address] | | | | + + + + + + | MCV | 94.5Comment: Testing | 80.0 - 100.0 fl | EXTERNAL | | | | performed at [facility], [address] | | LAB | | | | [address], | | | | | | [place] [address] | | | | + + + + + + | MCH | 31.0Comment: Testing | 27.0 - 34.0 pg | EXTERNAL | | | | performed at [facility], [address] | | LAB | | | | [address], | | | | | | [place] [address] | | | | + + + + + + | MCHC | 32.9Comment: Testing | 32.0 - 35.5 | EXTERNAL | | | | performed at [facility], [address] | g/dL | LAB | | | | [address], | | | | | | [place] [address] | | | | + + + + + + | RDW-CV | 48.6Comment: Testing | 37 - 53 fl | EXTERNAL | | | | performed at [facility], [address] | | LAB | | | | [address], | | | | | | [place] [address] | | | | + + + + + + | Platelet | 478 (H)Comment: Testing | 150 - 400 K/uL | EXTERNAL | | | Count | performed at [facility], [address] | | LAB | | | Plasma | [address], | | | | | | [place] [address] | | | | + + + + + + | MPV | 8.4Comment: Testing | fl | EXTERNAL | | | | performed at [facility], [address] | | LAB | | | | [address], | | | | | | [place] [address] | | | | + + + + + + | Differentia | AUTOMATEDComment: | | EXTERNAL | | | l Type | Testing performed at | | LAB | | | | [facility], [address] | | | | | | [place] | | | | | | [address] | | | | + + + + + + | % Segmented | 69.5Comment: Testing | % | EXTERNAL | | | | performed at [facility], [address] | | LAB | | | Neutrophils | [address], | | | | | | [place] [address] | | | | + + + + + + | % | 22.3Comment: Testing | % | EXTERNAL | | | Lymphocytes | performed at [facility], [address] | | LAB | | | | [address], | | | | | | [place] [address] | | | | + + + + + + | % Monocytes | 7.2Comment: Testing | % | EXTERNAL | | | | performed at [facility], [address] | | LAB | | | | [address], | | | | | | [place] [address] | | | | + + + + + + | % | 0.6Comment: Testing | % | EXTERNAL | | | Eosinophils | performed at [facility], [address] | | LAB | | | | [address], | | | | | | [place] [address] | | | | + + + + + + | % Basophils | 0.4Comment: Testing | % | EXTERNAL | | | | performed at [facility], [address] | | LAB | | | | [address], | | | | | | [place] [address] | | | | + + + + + + | Absolute | 9.4 (H)Comment: Testing | 1.9 - 7.4 K/uL | EXTERNAL | | | Segmented | performed at [facility], [address] | | LAB | | | Neutrophils | [address], | | | | | | [place] [address] | | | | + + + + + + | Absolute | 3.0Comment: Testing | 1.0 - 3.9 K/uL | EXTERNAL | | | Lymphocytes | performed at [facility], [address] | | LAB | | | | [address], | | | | | | [place] [address] | | | | + + + + + + | Absolute | 1.0 (H)Comment: Testing | 0 - 0.8 K/uL | EXTERNAL | | | Monocytes | performed at [facility], [address] | | LAB | | | | [address], | | | | | | [place] [address] | | | | + + + + + + | Absolute | 0.1Comment: Testing | 0 - 0.5 K/uL | EXTERNAL | | | Eosinophils | performed at [facility], [address] | | LAB | | | | [address], | | | | | | [place] [address] | | | | + + + + + + | Absolute | 0.1Comment: Testing | 0 - 0.1 K/uL | EXTERNAL | | | Basophils | performed at [facility], [address] | | LAB | | | | [address], | | | | | | [place] [address] | | | | + + + [...] | | | | | [place] [address] | | | | + + + + + + | K | 3.9Comment: Testing | 3.5 - 4.9 | EXTERNAL | | | | performed at [facility], [address] | mmol/L | LAB | | | | [address], | | | | | | [place] [address] | | | | + + + + + + | Cl | 106Comment: Testing | 99 - 109 mmol/L | EXTERNAL | | | | performed at [facility], [address] | | LAB | | | | [address], | | | | | | [place] [address] | | | | + + + + + + | CO2 | 27Comment: Testing | 23 - 32 mmol/L | EXTERNAL | | | | performed at [facility], [address] | | LAB | | | | [address], | | | | | | [place] [address] | | | | + + + + + + | Anion Gap | 9Comment: Testing | 5 - 20 mmol/L | EXTERNAL | | | | performed at [facility], [address] | | LAB | | | | [address], | | | | | | [place] [address] | | | | + + + + + + | Glucose, | 87Comment: Testing | 65 - 99 mg/dL | EXTERNAL | | | Fasting | performed at [facility], [address] | | LAB | | | | [address], | | | | | | [place] [address] | | | | + + + + + + | BUN | 19Comment: Testing | 8 - 25 mg/dL | EXTERNAL | | | | performed at [facility], [address] | | LAB | | | | [address], | | | | | | [place] [address] | | | | + + + + + + | Creatinine | 0.92Comment: Testing | 0.70 - 1.30 | EXTERNAL | | | | performed at [facility], [address] | mg/dL | LAB | | | | [place], | | | | | | [place] [address] | | | | + + + + + + | BUN/Creatin | 21Comment: Testing | | EXTERNAL | | | ine Ratio | performed at [facility], [address] | | LAB | | | | [address], | | | | | | [place] [address] | | | | + + + + + + | Calcium | 9.8Comment: Testing | 8.5 - 10.2 | EXTERNAL | | | | performed at [facility], [address] | mg/dL | LAB | | | | [address], | | | | | | [place] [address] | | | | + + + [...] | | | | | | at [facility], [address] | | | | | | [place], | | | | | | [place] [address] | | | | + + + [...]
--- OUTSIDE RECORDS SUMMARY | ~2020-01-30 | XMS | Clinical Summary ---
Demographics + + + | Address | [address] | | | [place] [address] | + + + | Home Phone | | + + + | Preferred Language | Unknown | + + + | Marital Status | | + + + | Latter Day Affiliation | Unknown | + + + [...] Team Providers + +------+ + | Care Drier Take Off Tender Name | Role | Phone | + +------+ + | Allison Fairchild NP | PCP | | + +------+ + Source Comments TANYA is fully live on both [facility] and [facility] In[facility] Allergies + + + + + [...] | | + + + +---------+------+------+-------+ | [id number]-[id number] | Chew and swallow. 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
--- OUTSIDE RECORDS SUMMARY | ~2020-01-30 | XMS | Encounter Summary ---
Demographics + + + | Address | [address] | | | [place] [address] | + + + | Home Phone | | + + + | Preferred Language | Unknown | + + + | Marital Status | | + + + | Taoist Affiliation | 1013 | + + + | Race | Unknown | + + + | Ethnic Group | Unknown | + + + Author + + + | Author | [facility] | | | and [place] | + + + | Organization | [facility] | | | and [place] | [...] [place] | | | | | [address] | | + + + + + Care Team Providers + +------+ + | Care Pot Washer Name | Role | Phone | + [...] [place] | | | | | [address] | [address] | | | | | [phone] | [phone] | | | | | | | [...] | | | | | | [facility] | | | | | | DIVISION [...] | | | | | performed at [facility], [address] | | | | | | [facility] | | | | | | [place] [address] | | | | + + + [...]
--- OUTSIDE RECORDS SUMMARY | ~2020-01-30 | XMS | Encounter Summary ---
Demographics + + + | Address | [address] | | | [place] [address] | + + + | Home Phone [...] | Author | [facility] | | | and [place] | + + + | Organization | [facility] | [...] [place] | | | | | [address] | | + + + + + Care Team Providers + +------+ + | Care Toggle Press Folder And Feeder Name | Role | Phone | [...] [place] | | | | | [address] | [address] | | | | | [phone] | [phone] | | | | | | | [...] | | | | performed at [facility];[address] | uIU/mL | LAB | | | | [address] | | | | | | [address];[place] [address] | | | | + + + [...]
--- OUTSIDE RECORDS SUMMARY | ~2020-01-30 | XMS | Encounter Summary ---
Demographics + + + | Address | [address] | | | [place] [address] | + + + | Home Phone [...] [place] | | | | | [address] | | + + + + + Care Team Providers + +------+ + | Care Embalmer Assistant Name | Role | Phone | + +------+ + | Allison Fairchild NP | PCP | | + +------+ + Encounter Details +--------+ + + + + | Date | Type | Department | Care Team | Description | +--------+ + + + + | 02/09/ | Episode | [facility] [place] | Amy Winter | | | 2018 | Changes | GASTROENTEROLOGY | M, RN | | | | | [address] | | | | | | [address] [place], [place] | | | | | | [address] | | | | | | [phone] | | | +--------+ + + + [...]
--- OUTSIDE RECORDS SUMMARY | ~2020-01-30 | XMS | Encounter Summary ---
Demographics + + + | Address | [address] | | | [place] [address] | + + + | Home Phone [...] + | Author | [facility] | | | and [place] | + + + | Organization | [facility] [...] [place] | | | | | [address] | | + + + + + Care Team Providers + +------+ + | Care Marbleizing Machine Tender Name | Role | Phone [...] | | | | [address] [facility] | [place], [place] | | | | | [address] [place] | [address] | | | | | [address] | [phone] | | | | | [phone] | | | +--------+--------+ + + + [...]
--- OUTSIDE RECORDS SUMMARY | ~2020-01-30 | XMS | Encounter Summary ---
Demographics + + + | Address | [address] | | | [place] [address] | + + + | Home Phone | | + + + | Preferred Language | Unknown | + + + | Marital Status | | + + + | Quaker Affiliation | 1013 | + + + | Race | Unknown | + + + | Ethnic Group | Unknown | + + + Author + + + | Author | [facility] | | | and [place]ana | + + + | Organization | [facility] | | | and [...] [place] | | | | | [address] | | + + + + + Care Team Providers + +------+ + | Care Laboratory Mechanical Technician Name | Role | Phone | + +------+ + PCP | Unavailable | + +------+ + Encounter Details +--------+ + + + + | Date | Type | Department | Care Team | Description | +--------+ + + + + | 03/04/ | Hospital | [facility] | Conversion | Pain | | 2013 | Encounter | CONVERSION [address] | Transaction, | | | | | [address] | Provider Unknown | | | | | [place], [place] | | | | | | [phone] | (Fax) | | | | | [phone] | | | +--------+ + + + [...] CT ABDOMEN PELVIS W | Routin | 02/03/2014 | | Results for this | | CONTRAST | e | 12:09 AM | | procedure are in the | | | | PDT | | results section. | + +--------+ + + + documented in this encounter Results CT Abdomen Pelvis w Contrast (02/03/2014 12:09 AM PDT) + + | Specimen | + + | | + + + + + | Narrative | Performed At | + + + | This is a non-reportable procedure without a radiologist report and | | | is used for image storage only | | + + + + + | Procedure Note | + + | Luis Long Deedee - 04/22/2019 12:50 PM PDT This is a non-reportable procedure | | without a radiologist report and isused for image storage only | + + documented in this encounter Visit Diagnoses + + | Diagnosis | + + | Pain Generalized pain | + + documented in this encounter"
--- OUTSIDE RECORDS SUMMARY | ~2020-01-30 | XMS | Encounter Summary ---
Demographics + + + | Address | [address] | | | [place] [address] | + + + | Home Phone [...] | Author | [facility] | | | and [place]ana | + + + | Organization | [facility] | | | and [...] [place] | | | | | [address] | | + + + + + Care Team Providers + +------+ + | Care Office Automation Technician Name | Role | Phone | [...] | | | | | [address] | [address] [facility] | | | | | [place] | [place] [address] | | | | | [address] | [phone] | | | | | [phone] | | | | | | | Luis Spann | | | | | | MD Mathew [address] | | | | | | [address] [place] | | | | | | [place] [address] | | | | | | [phone] | | | | | | | [...] [address] | | eral | Antecubital; [id number] | Dennis Hills RN | Heather Chua [...]
--- OUTSIDE RECORDS SUMMARY | ~2020-01-30 | XMS | Encounter Summary ---
Demographics + + + | Address | [address] | | | [place] [address] | + + + | Home Phone | | + + + | Preferred Language | Unknown | + + + | Marital Status | | + + + | Anabaptism Affiliation | 1013 | + + + | Race | Unknown | + + + | Ethnic Group | Unknown | + + + Author + + + | Author | [facility] | | | and [place] | + + + | Organization | [facility] | | [...] [place] | | | | | [address] | | + + + + + Care Team Providers + +------+ + | Care Welfare Officer Name | Role | Phone | + [...] | | | | | | | [place] | | | | | | | ANESTHESIA | | | | | | | UPPER GI | | | | | | | ENDOSCOPIC | | | | | | | PX ERCP [place] | | | | | | | [...] [facility] | [address], [place] | | | | | [address] | [address] [place], [place] | | | | | [place], [place] | [address] | | | | | [address] | | | | | | [phone] | | | +--------+---------+ + + + [...] You can't be awakened Date Last Reviewed: 06/24/[id number] [employer]. [address] [place] [address]. All righ ts reserved. This information is [...] 02/12/2018 | [employer] | | 11:06 AMMRN: [id number] #: [id number] of : | | | 1960Admit Type: AmbulatoryAge: 57Room: [facility] 01Gender: MaleNote | | | Status: [...] | | | the anesthesiologist and the system support technician in the endoscopy suite. | | [...] Scope In: 11:27:31 AMScope Out: 11:31:38 AM [facility] | | | [facility], [address] [place] [address] | | | [phone] | | | - Discharge patient to [...] |Scope Out: 11:31:38 AM | | | [facility], [address] [place] [address] | | | [address] | | + + -+ + +---------+ [...]
--- OUTSIDE RECORDS SUMMARY | ~2020-01-30 | XMS | Encounter Summary ---
Demographics + + + | Address | [address] | | | [place] [address] | + + + | Home Phone [...] | Author | [facility] | | | and [place] | + + + | Organization | [facility] | | | and [...] [place] | | | | | [address] | | + + + + + Care Team Providers + +------+ + | Care Cow Tender Name | Role | Phone | [...] | | | | | | | [place] | | | | | | | ESOPHAGOGAST | | | | | | | RODUODENOSCO | | | | | | | PY TRANSORAL | | | | | | | DIAGNOSTIC | | | | | | | [place] EGD | | | | | | | TRANSORAL | | | | | | | BIOPSY | | | | | | | SINGLE/MULTI | | | | | | | PLE [place] | | | | | | [...] + + | 11/18/ | Surgery | [facility] | Adrian Aponte MD | EGD | | 2018 | | MED [facility] | [address] | | | | | [address] | [place], [place] | | | | | [place], [place] | [address] | | | | | [address] | [phone] | | | | | [phone] | | | +--------+---------+ + + + [...] 11/18/2017 | [employer] | | 8:29 AMMRN: [id number] #: [id number] of : | | | 1960Admit Type: AmbulatoryAge: 56Room: [facility] 01Gender: MaleNote | | | Status: FinalizedAttending MD: Adrian Aponte MDProcedure: | | | Upper GI endoscopyIndications: Epigastric abdominal | | | pain, Nausea with vomitingProviders: Adrian Aponte MD, | | | Caroline Beltran RN, Edyta Kilpatrick | | | Cabrera, Invoice Clerk, CARMELLA MELO, | | | DO (Anesthesia [...] | | | the anesthesiologist and the data center technician in the pre-procedure | | | [...] | | 8:39:59 AMScope Out: 8:48:59 AM [facility] | | | [place], [address] [place] [address] | | | - Await pathology results. [...] |Scope Out: 8:48:59 AM | | | [facility], [address] [place] [address] | | | [address] | | + + -+ + +---------+ [...] for increased | | | epithelial eosinophils. JVR:[facility]:C2NR GROSS DESCRIPTION: | | | Received [...] submitted, all in (D1). | | | ka:JVR:[facility] PERFORMING LABORATORY: Tissue processing and slide | | | preparation were performed by [facility], [address] | | | [address], [place] [address] (Chief Design Branch: Alex Hathaway M.D. | | | CLIA#: [id number]). Professional interpretation was performed by | | | [facility], [facility], [address] [place] [address] (Chief Design Branch: Alex Hathaway, | | | [place]; CLIA#: [id number]). Diagnostician: Alex Hathaway MD | | | Pathologist Electronically Signed 11/19/2017 | | + + + + +---------+ + + | Performing | Address | City/State/[facility] | Phone Number | | Organization [...]
--- OUTSIDE RECORDS SUMMARY | ~2020-01-30 | XMS | Encounter Summary ---
Demographics + + + | Address | [address] | | | [place] [address] | + + + | Home Phone [...] + + | Author | [facility] | | | and [place] | + + + | Organization | [facility] | [...] [place] | | | | | [address] | | + + + + + Care Team Providers + +------+ + | Care Box Bender Name | Role | Phone | + [...] [place] | | | | | [address] | [address] | | | | | [phone] | [phone] | | | | | | | [...] | | | Serum | performed at [facility], [address] | mOsm/kg | LAB | | | | [address], [place] | | | | | | [address] | | | | + + + [...]
--- OUTSIDE RECORDS SUMMARY | ~2020-01-30 | XMS | Encounter Summary ---
Demographics + + + | Address | [address] | | | [place] [address] | + + + | Home Phone [...] | Author | [facility] | | | and Alexana | + + + | Organization | [facility] [...] [place] | | | | | [phone] | | + + + + + Care Team Providers + +------+ + | Care Asbestos Textile Supervisor Name | Role | Phone | [...] + + + + | 09/06/ | Anesthesia | [facility] | Mariel Mi CRNA | | | 2019 | [facility] | [address] | | | | | [address]PER[address] | [place] [address] | | | | | [address] | [phone] | | | | | [place], [place] | | | | | | [address] | Rom Stevenson, | | | | | [phone] | RESISTANCE [employer]RA[employer] [address] | | | | | | [place] [address] | | | | | | [phone] | | | | | | | | +--------+ + + + + Anesthesia Record + + + + + | Procedure Name | Responsible | Anesthesia Start | Anesthesia Stop Time | | | Anesthesiologist | Time | | + + + + + | REPAIR HERNIA | Mariel Mi CRNA | 09/06/19917 | 09/06/19 1831 | | INCISIONAL COMPLEX | | | | | (Anterior Abdomen) | | | | + + + + + +----+---+ + + | Da | T | Event | Comment | | te | i | | | | | m | | | | | e | | | +----+---+ + + | 12 | 0 | | | | /3 | 8 | | | | 1/ | 5 | | | | 20 | 6 | | | | 19 | | | | +----+---+ + + | | 0 | Quick Note | Metronidazole 500mg started at 0918 and given over 30 minutes | | | 9 | | | | | 1 | | | | | 4 | | | +----+---+ + + | | 0 | Anesthesia | | | | 9 | Ready | | | | 1 | | | | | 4 | | | +----+---+ + + | | 0 | An Start | Reassessment prior to anesthesia induction/procedure. | | | 9 | | | | | 1 | | | | | 8 | | | +----+---+ + + | | 0 | Antibiotic | | | | 9 | Given | | | | 1 | | | | | 9 | | | +----+---+ + + | | 0 | An | | | | 9 | Induction | | | | 2 | | | | | 0 | | | +----+---+ + + | | 0 | An Start | | | | 9 | Data | | | | 2 | | | | | 3 | | | +----+---+ + + | | 0 | An | | | | 9 | Intubation | | | | 2 | | | | | 4 | | | +----+---+ + + | | 0 | Frederick | | | | 9 | 43-degrees | | | | 4 | | | | | 1 | | | +----+---+ + + | | 0 | First | | | | 9 | Inc/Proc St | | | | 5 | | | | | 2 | | | +----+---+ + + | | 1 | Quick Note | Blood glucose 119 | | | 5 | | | | | 1 | | | | | 4 | | | +----+---+ + + | | 1 | Block Start | | | | 8 | | | | | 2 | | | | | 0 | | | +----+---+ + + | | 1 | AN Block | | | | 8 | End | | | | 2 | | | | | 8 | | | +----+---+ + + | | 1 | Extubation/ | | | | 8 | Airway LDA | | | | 2 | Removal | | | | 9 | | | +----+---+ + + | | 1 | an stop | | | | 8 | data | | | | 2 | | | | | 9 | | | +----+---+ + + | | 1 | An Stop | Patient handed off to recovery nurse. | | | 3 | | | | | 1 | | | +----+---+ + + | | 1 | an jerry now | Pt awake screaming in pain additional 100mcg of fentanyl given at | | | 9 | | this time, will talk to Dr. Stevenson to start BICYCLE TAXI DRIVER for better pain | | | 0 | | management. | | | 9 | | | +----+---+ + + | | 2 | Block Start | | | | 0 | | | | | 1 | | | | | 5 | | | +----+---+ + + | | 2 | AN Block | | | | 0 | End | | | | 4 | | | | | 5 | | | +----+---+ + + | | 2 | Quick Note | Pt had low blood pressures in PACU and pt slow to respond to | | | 1 | | questions. Flumazenil was administered to improve mental status, | | | 2 | | which resulted in pt answering questions at an appropriate speed. | | | 0 | | | +----+---+ + + +------+ | Meds | +------+ + + + | Name | Total | + + + | midazolam 2 mg/mL | 2 mg | + + + | fentaNYL | 300 mcg | + + + | lidocaine 2% | 40 mg | + + + | propofol | 150 mg | + + + | rocuronium | 155 mg | + + + | dexamethasone | 4 mg | + + + | ondansetron | 4 mg | + + + | ketorolac | 30 mg | + + + | ketorolac (TORADOL) injection (30 | 30 mg | | mg/mL) | | + + + | ePHEDrine | 10 mg | + + + | glycopyrrolate | 0.2 mg | + + + | ceFAZolin in dextrose (ANCEF) | 4 g | | IVPB 2 g | | + + + | lidocaine (XYLOCAINE) 4% topical | 2 mL | + + + | HYDROmorphone | 4,000 mcg | + + + | labetalol (TRANDATE) injection | 5 mg | + + + | acetaminophen IVPB | 1,000 mg | + + + | bupivacaine (PF) (MARCAINE) 0.5% | 30 mL | | Perineural | | + + + | dexamethasone (PF) 10 mg/mL | 8 mg | | Perineural | | + + + | ropivacaine (NAROPIN) 2 mg/mL | 20 mL | | (0.2%) Perineural | | + + + | flumazenil | 0.2 mg | + + + | Plasmalyte | 4,400 mL | + + + + + | Name | + + | N2O Flow Rate (L/Min) | + + | O2 Flow Rate (L/Min) | + + | Insp O2 | + + | Exp N2O | + + | Exp SEV | + + | Air Flow Rate (L/Min) | + + + + | No blood administrations on file. | + + +--------+ + + + | Type | Details | Placement | Removal | +--------+ + + + | Drain/ | 09/06/19; 1644; #1; Right; | 09/06/19 1644 by | | | Device | lateral; abdomen; collapsible | Marquez Xavier RN | | | Site | closed device; (15fr Anthony drain) | | | +--------+ + + + | Drain/ | 09/06/19; 1723; #2; Left; | 09/06/19 1723 by | | | Device | abdomen; collapsible closed | Marquez Xavier RN | | | Site | device; (15fr anthony drain) | | | +--------+ + + + | Wound | 09/06/19; 1809; Incision; | 09/06/191809 by | | | | abdomen; 1 midline, 7 | Andressa Alford RN | | | | percutaneous sites, 2 drain sites | | | +--------+ + + + | Drain/ | 07/30/19; 1132; #1; midline; | 07/30/19 1132 by | 09/06/19 0900 by | | Device | upper quadrant; 09/06/19; 0900 | Delfina Melissa RN | Andressa Alford RN | | Site | | | | +--------+ + + + | PICC | 08/06/19; 1236; Purple Hub; Yes; | 08/06/19 1236 by | 09/12/19 1210 by | | Single | Chlorhexidine/Isopropyl Alcohol; | Beena Duran RN | Vianney Love RN | | Lumen | Yes; Yes; All; Patient room; | | | | | Drum Saw Operator; Miriam Duran RN; | | | | | Registered nurse; Yes; New | | | | | indication for central line | | | | | (e.g., hemodynamic monitoring, | | | | | fluid/medication administration, | | | | | etc.); cephalic vein (lateral | | | | | side of arm), left; pressure | | | | | injectable catheter, lot number | | | | | (specify) ([id number]); 4 Fr, | | | | | length (specify) (50cm total | | | | | length); intradermal injection, | | | | | tolerated well; ECG verification, | | | | | ultrasound visualization with | | | | | modified seldinger technique at | | | | | bedside; ecg verification; no | | | | | longer indicated, catheter/device | | | | | intact; 09/12/19; 1210 | | | +--------+ + + + | Airway | Placement Date: 09/06/19; | 09/06/19923 by | 09/06/191828 by | | | Placement Time: 923; Mask | Rom Stevenson, | Mariel Mi CRNA | | | Ventilation: EZ; Airway Grade: | RESISTANCE BRAZER | | | | 2a; External Maneuvers: elevated | | | | | head of bed; Successful | | | | | Technique: Charles; Laryngoscope | | | | | Blade Size: 2; Airway Type: | | | | | endotracheal, oral, cuffed; Size: | | | | | 8; Position: Right; Airway Tube | | | | | Secured At: 23; Tube Reference | | | | | Point: lip; Trauma: none; Other | | | | | Equipment: stylette; Placement | | | | | Check: bilateral chest rise, | | | | | breath sounds equal bilaterally, | | | | | exhaled CO2 detection device; | | | | | Removal: per protocol; Removal | | | | | Date: 09/06/19; Removal Time: | | | | | 1828 | | | +--------+ + + + | Airway | Placement Date: 09/06/19; | 09/06/19923 by | 09/06/191828 by | | | Placement Time: 923 (created via | Rom Stevenson, | Mariel Mi CRNA | | | procedure documentation); Mask | RESISTANCE BRAZER | | | | Ventilation: EZ; Airway Grade: | | | | | 2b; External Maneuvers: elevated | | | | | head of bed; Successful | | | | | Technique: Charles; Laryngoscope | | | | | Blade Size: 2; Attempts: 1; | | | | | Airway Type: endotracheal; | | | | | Trauma: none; Other Equipment: | | | | | stylette; Placement Check: | | | | | exhaled CO2 detection device, | | | | | bilateral chest rise, breath | | | | | sounds equal bilaterally; Removal | | | | | Date: 09/06/19; Removal Time: | | | | | 1829 | | | +--------+ + + + | Urethr | 09/06/19; 934; indicated due to | 09/06/1935 by | 09/08/19 1110 by | | al | specific surgical procedure; All | WIN Ying | Nona Wiggins RN | | Cathet | elements; All elements; | | | | er | indwelling single lumen catheter; | | | | | latex; 16; None; 1; 10; 10; | | | | | none; drainage bag to dependent | | | | | drainage; 09/08/19; 1110 | | | +--------+ + + + | Epidur | 09/06/19; 2044 (created via | 09/06/192044 by | 09/09/19 131 by | | al/Spi | procedure documentation); An | Sharron Guevara MD | April Lee MD | | nal | extensive conversation was had | | | | | with the patient's medical | | | | | decision maker, Maria Isabel Hamilton about | | | | | placing an epidural for the | | | | | patient. The patient was in PACU | | | | | for an extensive period of time | | | | | and received high dose opioids, | | | | | benzodiazepines, a postop | | | | | bilateral rectus sheath block. | | | | | Informed Maria Isabel that the risks of | | | | | placing an epidural include | | | | | bleeding, infection, and nerve | | | | | damage. The patient was placed in | | | | | the sitting position with the | | | | | help of nursing staff. The | | | | | patient's thoracic back was | | | | | prepped with chlorhexidine and | | | | | sterile technique was used | | | | | including drape, mask, hat, | | | | | gloves. An epidural kit was used. | | | | | A right paramedian approach was | | | | | used the skin was infiltrated | | | | | with lidocaine. A touey needle | | | | | was used and loss of resistance | | | | | was found at 6cm. After the | | | | | catheter was placed, and the test | | | | | dose was administered, the | | | | | patient received no analgesia. | | | | | The catheter was removed the | | | | | patient was reprepped and draped. | | | | | A right paramedian approach was | | | | | used at the same level and loss | | | | | of resistance was found at 7cm. | | | | | The catheter was threaded without | | | | | difficulty, negative aspiration | | | | | without blood or CSF, negative | | | | | test dose. The patient tolerated | | | | | the procedure well. No | | | | | complications. ; 09/09/19; 1316 | | | +--------+ + + + [...] | + +--------+ + + + | ANE EPIDURAL NOTE | Routin | 09/06/2019 | | Results for this | | | e | 9:24 PM | | procedure are in the | | | | PST | | results section. | + +--------+ + + + | ANE NERVE BLOCK | Routin | 09/06/2019 | | Results for this | | CATHETER NOTE | e | 6:38 PM | | procedure are in the | | | | PST | | results section. | + +--------+ + + + | ANE AIRWAY NOTE | Routin | 09/06/2019 | | Results for this | | | e | 9:59 AM | | procedure are in the | | | | PST | | results section. | + +--------+ + + + documented in this encounter Results Neuraxial (09/06/2019 9:24 PM PST) + + + | Narrative | Performed At | + + + | Sharron Guevara MD 09/06/2019 9:40 PM Neuraxial Procedure | | | Note 09/06/2019 8:45 PM Procedure: epidural catheter placement | | | Indication: postoperative analgesia and acute pain management | | | Preprocedure check: patient identified, risks/benefits discussed, | | | reassessment prior to procedure, procedure and rescue equipment | | | checked, consent obtained, monitors applied, supplemental oxygen | | | applied, timeout performed and preevaluation including airway | | | assessment complete (consent obtained Maria Isabel Hamilton, the patient's | | | resident care supervisor and medical decision maker) Patient position: sitting | | | Preparation: chlorhexidine/isopropyl alcohol, Introducer used: no | | | Local anesthetic infiltration volume: 3 mL Procedure level: T9-10 | | | Approach: right paramedian Needle: Tuohy Needle size: 17 g Needle | | | length: 9 cm Loss of resistance to: saline with air bubble Loss of | | | resistance: 7 cm Catheter depth at skin: 12 cm Medication | | | administered through: catheter and incremental injection Negative | | | findings: no blood aspirated, no CSF, no paresthesia and no air | | | aspirated Test dose response: negative Attempts: 2 (first attempt | | | was false loss of resistance at 6cm) Ease of procedure: easy | | | Performing provider: Sharron Guevara MD Authorizing provider: Mariel | | | ERIC Mi Comments: An extensive conversation was had with the | | | patient's medical decision maker, Maria Isabel Hamilton about placing an | | | epidural for the patient. The patient was in PACU for an extensive | | | period of time and received high dose opioids, benzodiazepines, a | | | postop bilateral rectus sheath block. Informed Maria Isabel that the risks | | | of placing an epidural include bleeding, infection, and nerve | | | damage. The patient was placed in the sitting position with the help | | | of nursing staff. The patient's thoracic back was prepped with | | | chlorhexidine and sterile technique was used including drape, mask, | | | hat, gloves. An epidural kit was used. A right paramedian approach | | | was used the skin was infiltrated with lidocaine. A touey needle was | | | used and loss of resistance was found at 6cm. After the catheter | | | was placed, and the test dose was administered, the patient received | | | no analgesia. The catheter was removed the patient was reprepped | | | and draped. A right paramedian approach was used at the same level | | | and loss of resistance was found at 7cm. The catheter was threaded | | | without difficulty, negative aspiration without blood or CSF, | | | negative test dose. The patient tolerated the procedure well. No | | | complications. Please see anesthesia record or flowsheet | | | for vital sign documentation and see anesthesia record or MAR for | | | additional medication documentation. | | + + + Nerve Block (09/06/2019 6:38 PM PST) + + + | Narrative | Performed At | + + + | Mariel Mi CRNA 09/06/2019 6:44 PM Perineural Procedure | | | Note 09/06/2019 6:28 PM Nerve block: rectus sheath Laterality: | | | bilateral Continuous block with catheter: No Indication: | | | postoperative analgesia, acute pain management and see requesting | | | provider's documentation Preprocedure check: patient identified, | | | procedure and rescue equipment checked, preevaluation including | | | airway assessment complete, risks/benefits discussed, consent | | | obtained, timeout performed, reassessment prior to procedure, | | | monitors applied and supplemental oxygen applied Patient position: | | | supine Preparation: chlorhexidine/isopropyl alcohol Introducer used: | | | no Technique: ultrasound and landmark Needle: short-bevel and | | | insulated Needle length: 4 in Medication administered through: | | | needle, catheter and incremental injection Negative findings: no | | | blood aspirated, no air aspirated and no paresthesia Test response | | | dose: negative Attempts: 1 Ease of procedure: easy | | | Medications Administered Ropivacaine (NAROPIN) 2 mg/mL (0.2%) | | | Perineural, 20 mL bupivacaine (PF) (MARCAINE) 0.5% Perineural, 30 mL | | | dexamethasone (PF) 10 mg/mL Perineural, 8 mg Date/Time: 09/06/2019 | | | 6:28 PM Please see anesthesia record or flowsheet for vital | | | sign documentation and see anesthesia record or MAR for additional | | | medication documentation. Performing provider: Mariel Mi CRNA | | | Authorizing provider: Mariel Mi CRNA | | + + + Airway (09/06/2019 9:59 AM PST) + + + | Narrative | Performed At | + + + | Rom Stevenson CRNA 09/06/2019 10:01 AM Anesthesia Airway | | | Placement 09/06/2019 9:24 AM Preprocedure check: patient | | | identified, oxygen, airway equipment checked and patient | | | reassessment prior to induction Mask ventilation: easy External | | | maneuver: elevated head of bed Successful technique: Melvin | | | Laryngoscope blade size: 2 Airway grade: 2b (Only posterior | | | extremity of glottis seen or only arytenoid cartilages) Other | | | equipment: stylette Attempts: 1 Airway type: endotracheal Cuffed: | | | cuffed Route, reference point: right side of mouth Tube secured | | | with: adhesive tape Trauma: none Tube placement verification: | | | bilateral chest rise, carbon dioxide detection and equal bilateral | | | breath sounds Performing provider: Rom Stevenson CRNA Authorizing | | | provider: Rom Stevenson CRNA Medications Administered | | | Lidocaine (XYLOCAINE) 4% topical, 2 mL Date/Time: 09/06/2019 9:24 AM | | | Please see intraoperative grid for any additional medication | | | documentation. | | + + + documented in this encounter Visit Diagnoses Not on filedocumented in this encounter Administered Medications + +--------+ + +------+------+ | Medication Order | MAR | Action | Dose | Rate | Site | | | Action | Date | | | | + +--------+ + +------+------+ | acetaminophen (OFIRMEV) IVPB | Given | 09/06/20 | 1,000 mg | | | | Intravenous, Administer over 15 | | 19 5:37 | | | | | Minutes, PRN, Starting Tue | | PM PST | | | | | 09/06/19 at 1737, Anesthesia | | | | | | | Intra-op | | | | | | + +--------+ + +------+------+ +---+---+ | | | +---+---+ + +---------+ +---+---+---+ | balanced electrolytes in water | New Bag | 09/06/20 | | | | | (PLASMALYTE-148/NORMOSOL-R) | | 19 3:46 | | | | | infusion Intravenous, CONTINUOUS | | PM PST | | | | | PRN, Starting 09/06/19 at | | | | | | | 0915, Anesthesia Intra-op | | | | | | + +---------+ +---+---+---+ +---------+ +---+---+---+ | New Bag | 09/06/20 | | | | | | 19 2:04 | | | | | | PM PST | | | | +---------+ +---+---+---+ | New Bag | 09/06/20 | | | | | | 19 11:45 | | | | | | AM PST | | | | +---------+ +---+---+---+ +---+---+ | | | +---+---+ + +-------+ +--------+---+---+ | bupivacaine (PF) (MARCAINE) | Given | 09/06/20 | 30 mLs | | | | 0.5% injection PERINEURAL, | | 19 6:28 | | | | | Starting Thu09/06/19 at 1828, | | PM PST | | | | | Anesthesia Intra-op | | | | | | + +-------+ +--------+---+---+ +---+---+ | | | +---+---+ + +-------+ +-----+---+---+ | ceFAZolin in dextrose (ANCEF) | Given | 09/06/20 | 2 g | | | | IVPB 2 g 2 g, Intravenous, | | 19 3:10 | | | | | Administer over 30 Minutes, Prior | | PM PST | | | | | to Incision, Starting Thu | | | | | | | 09/06/19 at 0847, For 1 dose, | | | | | | | Keep in refrigerator., Pre-op, | | | | | | | Indications: Surgical Prophylaxis | | | | | | + +-------+ +-----+---+---+ +-------+ +-----+---+---+ | Given | 09/06/20 | 2 g | | | | | 19 9:18 | | | | | | AM PST | | | | +-------+ +-----+---+---+ +---+---+ | | | +---+---+ + +-------+ +------+---+---+ | dexamethasone (DECADRON) 4 | Given | 09/06/20 | 4 mg | | | | mg/mL injection Intravenous, | | 19 5:45 | | | | | PRN, Starting 09/06/19 at | | PM PST | | | | | 1745, Anesthesia Intra-op | | | | | | + +-------+ +------+---+---+ +---+---+ | | | +---+---+ + +-------+ +------+---+---+ | dexamethasone (PF) 10 mg/mL | Given | 09/06/20 | 8 mg | | | | injection PERINEURAL, Starting | | 19 6:28 | | | | | 09/06/19 at 1828, Anesthesia | | PM PST | | | | | Intra-op | | | | | | + +-------+ +------+---+---+ +---+---+ | | | +---+---+ + +-------+ +-------+---+---+ | ePHEDrine in saline 5 mg/mL IV | Given | 09/06/20 | 10 mg | | | | syringe Intravenous, PRN, | | 19 5:22 | | | | | Starting e 09/06/19 at 1722, | | PM PST | | | | | Anesthesia Intra-op | | | | | | + +-------+ +-------+---+---+ +---+---+ | | | +---+---+ + +-------+ +---------+---+---+ | fentaNYL (PF) injection | Given | 09/06/20 | 100 mcg | | | | Intravenous, PRN, Starting Tue | | 19 7:09 | | | | | 09/06/19 at 0912, Anesthesia | | PM PST | | | | | Intra-op | | | | | | + +-------+ +---------+---+---+ +-------+ +--------+---+---+ | Given | 09/06/20 | 25 mcg | | | | | 19 5:50 | | | | | | PM PST | | | | +-------+ +--------+---+---+ | Given | 09/06/20 | 25 mcg | | | | | 19 5:44 | | | | | | PM PST | | | | +-------+ +--------+---+---+ +---+---+ | | | +---+---+ + +-------+ +--------+---+---+ | flumazenil (ROMAZICON) | Given | 09/06/20 | 0.2 mg | | | | injection Intravenous, PRN, | | 19 9:25 | | | | | Starting 09/06/19 at 2125, | | PM PST | | | | | Anesthesia Intra-op | | | | | | + +-------+ +--------+---+---+ +---+---+ | | | +---+---+ + +-------+ +--------+---+---+ | glycopyrrolate (ROBINUL) | Given | 09/06/20 | 0.2 mg | | | | injection Intravenous, PRN, | | 19 9:12 | | | | | Starting Thu09/06/19 at 0912, | | AM PST | | | | | Anesthesia Intra-op | | | | | | + +-------+ +--------+---+---+ +---+---+ | | | +---+---+ + +-------+ +---------+---+---+ | HYDROmorphone (DILAUDID) 2 | Given | 09/06/20 | 500 mcg | | | | mg/mL injection Intravenous, | | 19 1:04 | | | | | PRN, Starting Thu09/06/19 at | | PM PST | | | | | 1023, Anesthesia Intra-op | | | | | | + +-------+ +---------+---+---+ +-------+ +---------+---+---+ | Given | 09/06/20 | 500 mcg | | | | | 19 12:26 | | | | | | PM PST | | | | +-------+ +---------+---+---+ | Given | 09/06/20 | 500 mcg | | | | | 19 12:08 | | | | | | PM PST | | | | +-------+ +---------+---+---+ +---+---+ | | | +---+---+ + +-------+ +-------+---+---+ | ketorolac (TORADOL) injection | Given | 09/06/20 | 30 mg | | | | Intravenous, PRN, Starting Tue | | 19 5:39 | | | | | 09/06/19 at 1739, Anesthesia | | PM PST | | | | | Intra-op | | | | | | + +-------+ +-------+---+---+ +---+---+ | | | +---+---+ + +-------+ +-------+---+---+ | ketorolac (TORADOL) injection | Given | 09/06/20 | 30 mg | | | | PRN, Starting 09/06/19 at | | 19 5:41 | | | | | 1741, Anesthesia Intra-op | | PM PST | | | | + +-------+ +-------+---+---+ +---+---+ | | | +---+---+ + +-------+ +------+---+---+ | labetalol (TRANDATE) 5 mg/mL | Given | 09/06/20 | 5 mg | | | | injection PRN, Starting Thu | | 19 10:52 | | | | | 09/06/19 at 1052, Anesthesia | | AM PST | | | | | Intra-op | | | | | | + +-------+ +------+---+---+ +---+---+ | | | +---+---+ + +-------+ +-------+---+---+ | lidocaine (PF) 2% injection | Given | 09/06/20 | 40 mg | | | | Intravenous, PRN, Starting Thu | | 19 9:20 | | | | | 09/06/19 at 0920, Anesthesia | | AM PST | | | | | Intra-op | | | | | | + +-------+ +-------+---+---+ +---+---+ | | | +---+---+ + +-------+ +-------+---+---+ | lidocaine (XYLOCAINE) 4% | Given | 09/06/20 | 2 mLs | | | | topical solution Topical, | | 19 9:24 | | | | | Starting Thu09/06/19 at 0924, | | AM PST | | | | | Anesthesia Intra-op | | | | | | + +-------+ +-------+---+---+ +---+---+ | | | +---+---+ + +-------+ +------+---+---+ | midazolam (VERSED) 1 mg/mL | Given | 09/06/20 | 2 mg | | | | injection Intravenous, PRN, | | 19 9:12 | | | | | Starting 09/06/19 at 0912, | | AM PST | | | | | Anesthesia Intra-op | | | | | | + +-------+ +------+---+---+ +---+---+ | | | +---+---+ + +-------+ +------+---+---+ | ondansetron (ZOFRAN) injection | Given | 09/06/20 | 4 mg | | | | Intravenous, PRN, Starting Tue | | 19 9:20 | | | | | 09/06/19 at 0920, Anesthesia | | AM PST | | | | | Intra-op | | | | | | + +-------+ +------+---+---+ +---+---+ | | | +---+---+ + +-------+ +--------+---+---+ | propofol (DIPRIVAN) injection | Given | 09/06/20 | 150 mg | | | | Intravenous, PRN, Starting Tue | | 19 9:20 | | | | | 19 at 0920, Anesthesia | | AM PST | | | | | Intra-op | | | | | | + +-------+ +--------+---+---+ +---+---+ | | | +---+---+ + +-------+ +------+---+---+ | rocuronium (ZEMURON) injection | Given | 09/06/20 | 5 mg | | | | Intravenous, PRN, Starting Tue | | 19 4:16 | | | | | 09/06/19 at 0920, Anesthesia | | PM PST | | | | | Intra-op | | | | | | + +-------+ +------+---+---+ +-------+ +------+---+---+ | Given | 09/06/20 | 5 mg | | | | | 19 4:03 | | | | | | PM PST | | | | +-------+ +------+---+---+ | Given | 09/06/20 | 5 mg | | | | | 19 3:40 | | | | | | PM PST | | | | +-------+ +------+---+---+ +---+---+ | | | +---+---+ + +-------+ +--------+---+---+ | ropivacaine (NAROPIN) 2 mg/mL | Given | 09/06/20 | 20 mLs | | | | (0.2%) injection PERINEURAL, | | 19 6:28 | | | | | Starting 09/06/19 at 1828, | | PM PST | | | | | Anesthesia Intra-op | | | | | | + +-------+ +--------+---+---+ +---+---+ | | | +---+---+ documented in this encounter"
--- OUTSIDE RECORDS SUMMARY | ~2020-01-30 | XMS | Encounter Summary ---
Demographics + + + | Address | [address] | | | [place] [address] | + + + | Home Phone [...] Author | [facility] | | | and Alexana | + + + | Organization | [facility] | | | and [...] [place] | | | | | [address] | | + + + + + Care Team Providers + +------+ + | Care Style Advisor Name | Role | Phone | + +------+ + | Allison Fairchild NP | PCP | | + +------+ + Encounter Details +--------+ + + + + | Date | Type | Department | Care Team | Description | +--------+ + + + + | 02/07/ | Hospital | [facility] | Conversion | | | 2016 | Encounter | CENTER [facility] | Transaction, | | | | | [address] | Provider Unknown | | | | | [place], [place] | [phone] | | | | | [address] | | | | | | [phone] | Jamie Bentley MD | | | | | | [address] | | | | | | [address] [place], [place] | | | | | | [address] | | | | | | | [...] + + + | Blood Pressure | 143/92 | 02/08/2016 7:39 AM | | | | | PDT | | + + + + + | Pulse | 68 | 02/08/2016 7:39 AM | | | | | PDT [...] + + + + | Weight | 96.6 kg (212 lb 15.4 | 02/08/2016 7:39 AM | | | | oz) | PDT | | + + + + + | Height | 180.3 cm (5' 11") | 02/08/2016 7:39 AM | | | | | PDT | | + + + + + | Body Mass Index | 29.7 | 02/08/2016 7:39 AM | | | | | PDT [...] | EXTERNAL LAB: [facility] | Routin | 02/08/2016 | | Results for this | | | e | 8:06 AM | | procedure are in the | | | | PDT | | results section. | + +--------+ + + + documented in this encounter Results External Lab: [facility] (02/08/2016 8:06 AM PDT) + + + + + + | Component | Value | Ref Range | Performed | Pathologist | | | | | At | Signature | + + + + + + | WBC | 14.91 (H)Comment: | 3.80 - 11.00 | EXTERNAL | | | | Testing performed at | K/uL | LAB | | | | [facility], [address] | | | | | | [place] | | | | | | [address] | | | | + + + + + + | Red Blood | 4.93Comment: Testing | 4.20 - 5.70 | EXTERNAL | | | Cells | performed at [facility], [address] | M/uL | LAB | | | Counted | [facility] [place], | | | | | | [place] [address] | | | | + + + + + + | Hemoglobin | 15.3Comment: Testing | 13.2 - 17.0 | EXTERNAL | | | | performed at [facility], [address] | g/dL | LAB | | | | [address], | | | | | | [place] [address] | | | | + + + + + + | Hematocrit, | 45.9Comment: Testing | 39.0 - 50.0 % | EXTERNAL | | | POC | performed at [facility], [address] | | LAB | | | | [place], | | | | | | [place] [address] | | | | + + + + + + | MCV | 93.2Comment: Testing | 80.0 - 100.0 fl | EXTERNAL | | | | performed at [facility], [address] | | LAB | | | | [address], | | | | | | [place] [address] | | | | + + + + + + | MCH | 31.1Comment: Testing | 27.0 - 34.0 pg | EXTERNAL | | | | performed at [facility], [address] | | LAB | | | | [address], | | | | | | [place] [address] | | | | + + + + + + | MCHC | 33.4Comment: Testing | 32.0 - 35.5 | EXTERNAL | | | | performed at [facility], [address] | g/dL | LAB | | | | [address], | | | | | | [place] [address] | | | | + + + + + + | RDW-CV | 47.7Comment: Testing | 37 - 53 fl | EXTERNAL | | | | performed at [facility], [address] | | LAB | | | | [address], | | | | | | [place] [address] | | | | + + + + + + | Platelet | 379Comment: Testing | 150 - 400 K/uL | EXTERNAL | | | Count | performed at [facility], [address] | | LAB | | | Plasma | [address], | | | | | | [place] [address] | | | | + + + + + + | MPV | 9.3Comment: Testing | fl | EXTERNAL | | | | performed at [facility], [address] | | LAB | | | | [place], | | | | | | [place] [address] | | | | + + + + + + | Differentia | AUTOMATEDComment: | | EXTERNAL | | | l Type | Testing performed at | | LAB | | | | [facility], [address] | | | | | | [place] | | | | | | [address] | | | | + + + + + + | % Segmented | 59.79Comment: Testing | % | EXTERNAL | | | | performed at [facility], [address] | | LAB | | | Neutrophils | [place], | | | | | | [place] [address] | | | | + + + + + + | % | 29.58Comment: Testing | % | EXTERNAL | | | Lymphocytes | performed at [facility], [address] | | LAB | | | | [address], | | | | | | [place] [address] | | | | + + + + + + | % Monocytes | 8.82Comment: Testing | % | EXTERNAL | | | | performed at [facility], [address] | | LAB | | | | [address], | | | | | | [place] [address] | | | | + + + + + + | % | 0.86Comment: Testing | % | EXTERNAL | | | Eosinophils | performed at [facility], [address] | | LAB | | | | [place], | | | | | | [place] [address] | | | | + + + + + + | % Basophils | 0.95Comment: Testing | % | EXTERNAL | | | | performed at [facility], [address] | | LAB | | | | [address], | | | | | | [place] [address] | | | | + + + + + + | Absolute | 8.92 (H)Comment: Testing | 1.90 - 7.40 | EXTERNAL | | | Segmented | performed at [facility], [address] | K/uL | LAB | | | Neutrophils | [address], | | | | | | [place] [address] | | | | + + + + + + | Absolute | 4.41 (H)Comment: Testing | 1.00 - 3.90 | EXTERNAL | | | Lymphocytes | performed at [facility], [address] | K/uL | LAB | | | | [address], | | | | | | [place] [address] | | | | + + + + + + | Absolute | 1.32 (H)Comment: Testing | 0.00 - 0.80 | EXTERNAL | | | Monocytes | performed at [facility], [address] | K/uL | LAB | | | | [address], | | | | | | [place] [address] | | | | + + + + + + | Absolute | 0.13Comment: Testing | 0.00 - 0.50 | EXTERNAL | | | Eosinophils | performed at [facility], [address] | K/uL | LAB | | | | [address], | | | | | | [place] [address] | | | | + + + + + + | Absolute | 0.14 (H)Comment: Testing | 0.00 - 0.10 | EXTERNAL | | | Basophils | performed at [facility], [address] | K/uL | LAB | | | | [address], | | | | | | [place] [address] | | | | + + + [...]
--- OUTSIDE RECORDS SUMMARY | ~2020-01-30 | XMS | Encounter Summary ---
Demographics + + + | Address | [address] | | | [place] [address] | + + + | Home Phone [...] | Author | [facility] | | | and [place] | + + + | Organization | [facility] | | | and [...] [place] | | | | | [address] | | + + + + + Care Team Providers + +------+ + | Care Filament Maker Name | Role | Phone | [...] [place] | | | | | [address] | [address] | | | | | [phone] | [phone] | | | | | | | [...] | | | External | performed at [facility];[address] | | LAB | | | | [place] | | | | | | [place] [address] | | | | + + + [...]
--- OUTSIDE RECORDS SUMMARY | ~2020-01-30 | XMS | Encounter Summary ---
Demographics + + + | Address | [address] | | | [place] [address] | + + + | Home Phone [...] Author | [facility] | | | and [place] | + + + | Organization | [facility] | | | and [...] [place] | | | | | [address] | | + + + + + Care Team Providers + +------+ + | Care Solderer Assembler Name | Role | Phone | [...] | | | [place] | [place] | | | | | [address] | [address] | | | | | [phone] | [phone] | | | | | | | [...] EXTERNAL | | | | performed at [facility] | | LAB | | | | Health;[address] | | | | | | [place] | | | | | | [address] | | | | + + + [...]
--- OUTSIDE RECORDS SUMMARY | ~2020-01-30 | XMS | Encounter Summary ---
Demographics + + + | Address | [address] | | | [place] [address] | + + + | Home Phone [...] Author | [facility] | | | and [place] | + + + | Organization | [facility] | | [...] [place] | | | | | [address] | | + + + + + Care Team Providers + +------+ + | Care Bleacher [employer] Name | Role | Phone | + [...] | | | [place] | [place] | | | | | [address] | [address] | | | | | [phone] | [phone] | | | | | | | [...] [place] | | | | | | [address] | | | | + + + + + + | K | 5.6 (H)Comment: Testing | 3.5 - 4.9 | EXTERNAL | | | | performed at [facility] | mmol/L | LAB | | | | Health;[address] | | | | | | [place] | | | | | | [address] | | | | + + + + + + | Cl | 95 (L)Comment: Testing | 99 - 109 mmol/L | EXTERNAL | | | | performed at [facility] | | LAB | | | | Health;[address] | | | | | | [place] | | | | | | [address] | | | | + + + + + + | CO2 | 22 (L)Comment: Testing | 23 - 32 mmol/L | EXTERNAL | | | | performed at [facility] | | LAB | | | | Health;[address] | | | | | | [place] | | | | | | [address] | | | | + + + + + + | Anion Gap | 15Comment: Testing | 5 - 20 mmol/L | EXTERNAL | | | | performed at [facility] | | LAB | | | | Health;[address] | | | | | | [place] | | | | | | [address] | | | | + + + + + + | Glucose, | 126 (H)Comment: Testing | 65 - 99 mg/dL | EXTERNAL | | | Fasting | performed at [facility] | | LAB | | | | Health;[address] | | | | | | [place] | | | | | | [address] | | | | + + + + + + | BUN | 30 (H)Comment: Testing | 8 - 25 mg/dL | EXTERNAL | | | | performed at [facility] | | LAB | | | | Health;[address] | | | | | | [place] | | | | | | [address] | | | | + + + + + + | Creatinine | 1.2Comment: Testing | 0.70 - 1.30 | EXTERNAL | | | | performed at [facility] | mg/dL | LAB | | | | Health;[address] | | | | | | [place] | | | | | | [address] | | | | + + + + + + | BUN/Creatin | 25Comment: Testing | | EXTERNAL | | | ine Ratio | performed at [facility] | | LAB | | | | Health;[address] | | | | | | [place] | | | | | | [address] | | | | + + + + + + | Calcium | 9.9Comment: Testing | 8.5 - 10.2 | EXTERNAL | | | | performed at [facility] | mg/dL | LAB | | | | Health;[address] | | | | | | [place] | | | | | | [address] | | | | + + + + + + | Protein, | 7.7Comment: Testing | 6.3 - 8.2 g/dL | EXTERNAL | | | Total | performed at [facility] | | LAB | | | | Health;[address] | | | | | | [place] | | | | | | [address] | | | | + + + + + + | Albumin | 3.6Comment: Testing | 3.6 - 5.0 g/dL | EXTERNAL | | | | performed at [facility] | | LAB | | | | Health;[address] | | | | | | [place] | | | | | | [address] | | | | + + + + + + | Globulin | 4.1Comment: Testing | 1.3 - 4.9 g/dL | EXTERNAL | | | | performed at [facility] | | LAB | | | | Health;[address] | | | | | | [place] | | | | | | [address] | | | | + + + + + + | A/G Ratio | 0.9 (L)Comment: Testing | 1.0 - 2.4 | EXTERNAL | | | | performed at [facility] | | LAB | | | | Health;[address] | | | | | | [place] | | | | | | [address] | | | | + + + + + + | Bilirubin | 0.2Comment: Testing | 0.1 - 1.5 mg/dL | EXTERNAL | | | Total | performed at [facility] | | LAB | | | | Health;[address] | | | | | | [place] | | | | | | [address] | | | | + + + + + + | ALP, | 116 (H)Comment: Testing | 35 - 115 U/L | EXTERNAL | | | External | performed at [facility] | | LAB | | | | Health;[address] | | | | | | [place] | | | | | | [address] | | | | + + + + + + | AST | 58 (H)Comment: Testing | 10 - 45 U/L | EXTERNAL | | | | performed at [facility] | | LAB | | | | Health;[address] | | | | | | [place] | | | | | | [address] | | | | + + + + + + | ALT | 67 (H)Comment: Testing | 10 - 65 U/L | EXTERNAL | | | | performed at [facility] | | LAB | | | | Health;[address] | | | | | | [place] | | | | | | [address] | | | | + + + [...] | | | | | | at [facility];[address] | | | | | | [place] | | | | | | [address] | | | | + + + [...]
--- OUTSIDE RECORDS SUMMARY | ~2020-01-30 | XMS | Encounter Summary ---
Demographics + + + | Address | [address] | | | [place] [address] | + + + | Home Phone | | + + + | Preferred Language | Unknown | + + + | Marital Status | | + + + | Congregational Affiliation | 1013 | + + + | Race | Unknown | + + + | Ethnic Group | Unknown | + + + Author + + + | Author | [facility] | | | and [place] | + + + | Organization | [facility] | | | and [...] [place] | | | | | [address] | | + + + + + Care Team Providers + +------+ + | Care Chicken Vaccinator Name | Role | Phone | + +------+ + | Allison Fairchild NP | PCP | | + +------+ + Encounter Details +--------+ + + + + | Date | Type | Department | Care Team | Description | +--------+ + + + + | 01/26/ | Episode | [facility] | Amy Winter | | | 2018 | Changes | GASTROENTEROLOGY | M, RN | | | | | [address] | | | | | | [address] [place], [place] | | | | | | [address] | | | | | | [phone] | | | +--------+ + + + [...]
--- OUTSIDE RECORDS SUMMARY | ~2020-01-30 | XMS | Encounter Summary ---
Demographics + + + | Address | [address] | | | [place] [address] | + + + | Home Phone | | + + + | Preferred Language | Unknown | + + + | Marital Status | | + + + | Alevism Affiliation | Unknown | + + + | Race | White | + + + | Ethnic Group | Not or | + + + Author + + + | Author | [facility] | + + + | Organization | [facility] | + + + | Address | Unknown | + + + | Phone | Unavailable | + + + Support + + +---------+ + | Name | Relationship | Address | Phone | + + +---------+ + | Maria Isabel Cespedes | ECON | Unknown | | + + +---------+ + Care Team Providers + +------+ + | Care University Administrative Assistant Name | Role | Phone | + +------+ + PCP | Unavailable | + +------+ + Encounter Details +--------+ + + + + | Date | Type | Department | Care Team | Description | +--------+ + + + + | 07/26/ | Document-Sc | UNKNOWN DEPARTMENT | Unknown . | | | 2011 | anned | [address] | | | | | | [address] | | | | | | [place], [place] | | | | | | [address] | | | +--------+ + + + [...] | + +--------+ + + + | RADIOLOGY | | 07/26/2012 | | Results for this | | | | 12:00 AM | | procedure are in the | | | | PST | | results section. | + +--------+ + + + documented in this encounter Results RADIOLOGY (07/26/2012 12:00 AM PST) + + + | Narrative | Performed At | + + + | | | | | | + + + + + | Procedure Note | + + | Birdie Torres - 03/28/2013 2:39 PM PDT | + + documented in this encounter Visit Diagnoses Not on filedocumented in this encounter"
--- OUTSIDE RECORDS SUMMARY | ~2020-01-30 | XMS | Encounter Summary ---
Demographics + + + | Address | [address] | | | [place] [address] | + + + | Home Phone [...] Author | [facility] | | | and [place] | + + + | Organization | [facility] | | | and [place] [...] [place] | | | | | [address] | | + + + + + Care Team Providers + +------+ + | Care Hoop Cutter Name | Role | Phone | [...] [place] | | | | | [address] | [address] | | | | | [phone] | [phone] | | | | | | | [...] + + | COMPREHENSIVE | Routin | 10/05/2013 | | Results for this | | METABOLIC PANEL | e | 4:21 AM | | procedure are in the | | | | PST | | results section. | + +--------+ + + + documented in this encounter Results Comprehensive Metabolic Panel (10/05/2013 4:21 AM PST) + + + + + + | Component | Value | Ref Range | Performed | Pathologist | | | | | At | Signature | + + + + + + | Na | 134 (L)Comment: Testing | 135 - 143 | EXTERNAL | | | | performed at [facility] | mmol/L | LAB | | | | Health;[address] | | | | | | [place] | | | | | | [address] | | | | + + + + + + | K | 4.8Comment: Testing | 3.5 - 4.9 | EXTERNAL | | | | performed at [facility] | mmol/L | LAB | | | | Health;[address] | | | | | | [place] | | | | | | [address] | | | | + + + + + + | Cl | 104Comment: Testing | 99 - 109 mmol/L | EXTERNAL | | | | performed at [facility] | | LAB | | | | Health;[address] | | | | | | [place] | | | | | | [address] | | | | + + + + + + | CO2 | 21 (L)Comment: Testing | 23 - 32 mmol/L | EXTERNAL | | | | performed at [facility] | | LAB | | | | Health;[address] | | | | | | [place] | | | | | | [address] | | | | + + + + + + | Anion Gap | 14Comment: Testing | 5 - 20 mmol/L | EXTERNAL | | | | performed at [facility] | | LAB | | | | Health;[address] | | | | | | [place] | | | | | | [address] | | | | + + + + + + | Glucose, | 93Comment: Testing | 65 - 99 mg/dL | EXTERNAL | | | Fasting | performed at [facility] | | LAB | | | | Health;[address] | | | | | | [place] | | | | | | [address] | | | | + + + + + + | BUN | 19Comment: Testing | 8 - 25 mg/dL | EXTERNAL | | | | performed at [facility] | | LAB | | | | Health;[address] | | | | | | [place] | | | | | | [address] | | | | + + + + + + | Creatinine | 0.7Comment: Testing | 0.70 - 1.30 | EXTERNAL | | | | performed at [facility] | mg/dL | LAB | | | | Health;[address] | | | | | | [place] | | | | | | [address] | | | | + + + + + + | BUN/Creatin | 27Comment: Testing | | EXTERNAL | | | ine Ratio | performed at [facility] | | LAB | | | | Health;[address] | | | | | | [place] | | | | | | [address] | | | | + + + + + + | Calcium | 8.7Comment: Testing | 8.5 - 10.2 | EXTERNAL | | | | performed at [facility] | mg/dL | LAB | | | | Health;[address] | | | | | | [place] | | | | | | [address] | | | | + + + + + + | Protein, | 6.4Comment: Testing | 6.3 - 8.2 g/dL | EXTERNAL | | | Total | performed at [facility] | | LAB | | | | Health;[address] | | | | | | [place] | | | | | | [address] | | | | + + + + + + | Albumin | 2.8 (L)Comment: Testing | 3.6 - 5.0 g/dL | EXTERNAL | | | | performed at [facility] | | LAB | | | | Health;[address] | | | | | | [place] | | | | | | [address] | | | | + + + + + + | Globulin | 3.6Comment: Testing | 1.3 - 4.9 g/dL | EXTERNAL | | | | performed at [facility] | | LAB | | | | Health;[address] | | | | | | [place] | | | | | | [address] | | | | + + + + + + | A/G Ratio | 0.8 (L)Comment: Testing | 1.0 - 2.4 | EXTERNAL | | | | performed at [facility] | | LAB | | | | Health;[address] | | | | | | [place] | | | | | | [address] | | | | + + + + + + | Bilirubin | 0.2Comment: Testing | 0.1 - 1.5 mg/dL | EXTERNAL | | | Total | performed at [facility] | | LAB | | | | Health;[address] | | | | | | [place] | | | | | | [address] | | | | + + + + + + | ALP, | 102Comment: Testing | 35 - 115 U/L | EXTERNAL | | | External | performed at [facility] | | LAB | | | | Health;[address] | | | | | | [place] | | | | | | [address] | | | | + + + + + + | AST | 49 (H)Comment: Testing | 10 - 45 U/L | EXTERNAL | | | | performed at [facility] | | LAB | | | | Health;[address] | | | | | | [place] | | | | | | [address] | | | | + + + + + + | ALT | 57Comment: Testing | 10 - 65 U/L | EXTERNAL | | | | performed at [facility] | | LAB | | | | Health;[address] | | | | | | [place] | | | | | | [address] | | | | + + + [...] | | | | | | at [facility];[address] | | | | | | [place] | | | | | | [address] | | | | + + + [...]
--- OUTSIDE RECORDS SUMMARY | ~2020-01-30 | XMS | Encounter Summary ---
Demographics + + + | Address | [address] | | | [place] [address] | + + + | Home Phone [...] Author | [facility] | | | and [place] | + + + | Organization | [facility] [...] [place] | | | | | [address] | | + + + + + Care Team Providers + +------+ + | Care Calibrator Barometers Name | Role | Phone | + [...] [place] | | | | | [address] | [address] | | | | | [phone] | [phone] | | | | | | | [...] EXTERNAL LAB | | Testing performed at [facility] | | | Health;[address];[place] [address] CULTURE | | | NO GROWTH 6 DAYS | | | Testing performed at [facility], [address], | | | [place] [address] REPORT STATUS | | | 10/09/2013 FINAL [...]
--- OUTSIDE RECORDS SUMMARY | ~2020-01-30 | XMS | Encounter Summary ---
Demographics + + + | Address | [address] | | | [place] [address] | + + + | Home Phone | | + + + | Preferred Language | Unknown | + + + | Marital Status | | + + + | Uatsdin Affiliation | Unknown | + + + | Race | White | + + + | Ethnic Group | Not or | + + + Author + + + | Author | [facility] | + + + | Organization | [facility] | + + + | Address | Unknown | + + + | Phone | Unavailable | + + + Support + + +---------+ + | Name | Relationship | Address | Phone | + + +---------+ + | Maria Isabel Cespedes | ECON | Unknown | | + + +---------+ + Care Team Providers + +------+ + | Care Fruit Or Nut Crops Farm Manager Name | Role | Phone | [...] | | | | | | [place], [address] [place] [address] | | | | | | [place], [place] | | | | | | [address] | | | | | | [phone] | | | +--------+------+ + + + [...] by | | | | | | [address] | | | | | | [address], [facility],[place] | | | | | | [address] | | | | | | [phone]. | | | | | | Melecio [...] [facility] | [address] | [place], [place] | | | UNIV PTH - INTFC | | [address] | | + + + + + [...] [facility] | [address] | [place] [address] | | | SERVICES, CORE | PARK [...] | + + + + + | [facility] | [address] | [place] [address] | | | SERVICES, CORE | DORIAN [...] | + + + + + | [facility] | [address] | [place] [address] | | | SERVICES, CORE | DORIAN [...] [facility] | | | NIL | by [address] | | REG UNIV | | | | [address], [facility],[place] | | PTH - INTFC | | | | [address] | | | | | | [phone] | | | | | | Melecio [...] (http://www.cdc.gov/mmwr | | | | | | [email or web address] | | | | | | [email or web address]), [...] [facility] | [address] | [place], [place] | | | UNIV PTH - INTFC | | [address] | | + + + + + [...] | + + + + + | [facility] | [address] | [place] [address] | | | SERVICES, CORE | DORIAN [...] [facility] | [address] | [place] [address] | | | SERVICES, CORE | PARK [...] | | | LABORATORY | | | LIBERIAN | | | SERVICES, | | | [...] the MDRD equation recommended by the | [facility] | | National Kidney Disease Education [...] | + + + + + | [facility] | [address] | [place] [address] | | | SERVICES, CORE | [address] | | | + + + + + SEDIMENTATION RATE (11/02/2018 4:55 PM PST) + +--------+ + + + | Component | Value | Ref Range | Performed | Pathologist | | | | | At | Signature | + +--------+ + + + | SEDIMENTATI | 54 (H) | 0 - 20 mm/hr | MARUBÉN | | | ON RATE | | [...] [facility] | [address] | [place] [address] | | | ORTEGA BOOGIE | [address] | | | + + + + + documented in this encounter Visit Diagnoses + + | Diagnosis | + + | 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
--- OUTSIDE RECORDS SUMMARY | ~2020-01-30 | XMS | Encounter Summary ---
Demographics + + + | Address | [address] | | | [place] [address] | + + + | Home Phone | | + + + | Preferred Language | Unknown | + + + | Marital Status | | + + + | Adventism Affiliation | [id number] | + + + | Race | Unknown | + + + | Ethnic Group | Unknown | + + + Author + + + | Author | [facility] | | | and Alexana | + + + | Organization | [facility] | | [...] [place] | | | | | [address] | | + + + + + Care Team Providers + +------+ + | Care Pesticide Applicator Name | Role | Phone | + [...] + + | 10/07/ | Telephone | [facility] | Anival Stevenson MD | Results | | 2020 | | GENERAL SURGERY [address] | [address] | | | | | [address] | [address] [place], [place] | | | | | [place], [place] | [address] | | | | | [id number] | | | | | | [phone] | | | +--------+ + + + [...]
--- OUTSIDE RECORDS SUMMARY | ~2020-01-30 | XMS | Encounter Summary ---
Demographics + + + | Address | [address] | | | [place] [address] | + + + | Home Phone [...] + | Author | [facility] | | | and Alexana | + + + | Organization | [facility] | [...] [place] | | | | | [address] | | + + + + + Care Team Providers + +------+ + | Care Shuttle Operator Name | Role | Phone | [...] | | | | dysphagia | | [place] [address] | | | | | Other | | Phone: | | | | | dysphagia | | [phone] | | | | | [R13.19]Unsp | | Fax: | | | | | ecified | | [phone] | | | | | abdominal | | | | | | | pain [R10.9] | | | +--------+--------+ + + + + Encounter Details +--------+---------+ + + + | Date | Type | Department | Care Team | Description | +--------+---------+ + + + | 10/23/ | Surgery | [facility] | Adrian Aponte MD | EGD | | 2016 | | MED CTR MP INTRA OP | [address] | | | | | [address] | [place] | | | | | [place] | [address] | | | | | [address] | [phone] | | | | | [phone] | | | +--------+---------+ + + + [...] the physician who did your procedure at [phone] if you have any questions or experience any of the following: ? Increasing abdominal pain, nausea, or vomiting. ? Chills and fever over 101F. ? New abdominal swelling or bloating. ? Signs of rectal bleeding (black or red stool). If you cannot get a hold of your physician, then call the [facility] [phone] . If necessary, report to the Emergency Department at [facility]. Quit smoking: If you smoke or [...] 10/23/2015 | PROVATION | | 7:35 AMMRN: [id number] #: [id number] of : | | | 1960Admit Type: AmbulatoryAge: 54Room: [facility] 02Gender: MaleNote | | | Status: FinalizedAttending [...] the anesthesiologist and the | | | irrigation service technician in the pre-procedure area in the [...] | | | AMScope Out: 8:09:58 AM [facility], [address] | | | [place] [address] | | | patient. Return to normal [...] |Scope Out: 8:09:58 AM | | | [facility], [address] , [place], [place] | | | [address] | | + + -+ + +---------+ [...] - | | | Negative for dysplasia. [facility]:C2NR GROSS DESCRIPTION: | | | [...] | and slide preparation were performed by [facility], [address] | | | [facility], [address], [place] [address] (Public Health Professor: Alex | | | Trevin Hathaway CLIA#: [id number]). Professional interpretation was | | | performed by [facility], [facility], | | | [address] [place] [address] (Public Health Professor: | | | Natan Carson M.D.; CLIA#: [id number]). Diagnostician: | | | Natan Carson MD [...]
--- OUTSIDE RECORDS SUMMARY | ~2020-01-30 | XMS | Encounter Summary ---
Demographics + + + | Address | [address] | | | [place] [address] | + + + | Home Phone | | + + + | Preferred Language | Unknown | + + + | Marital Status | | + + + | Worship Affiliation | 1013 | + + + | Race | Unknown | + + + | Ethnic Group | Unknown | + + + Author + + + | Author | [facility] | | | and [place] | + + + | Organization | [facility] | | | and [...] [place] | | | | | [address] | | + + + + + Care Team Providers + +------+ + | Care Interface Analyst Name | Role | Phone | + +------+ + | Allison Fairchild NP | PCP | | + +------+ + Encounter Details +--------+ + + + + | Date | Type | Department | Care Team | Description | +--------+ + + + + | 11/10/ | [facility] | [facility] | Jamie Bentley MD | Recurrent incisional | | 2016 | Encounter | [facility] | [address] | hernia | | | | [address] | [address] [place], [place] | | | | | [place], [place] | [address] | | | | | [address] | | | | | | [phone] | | | +--------+ + + + [...] Date of Service: 11/10/16 1446 Status: Signed Roller Repairer: Angie Shaw RN (Registered Nurse) Pt AOx4. He states his pain is at a tolerable level. He and his plan to stay at a [facility], close to the hospital since they live in [place] and do not want to travel th [...] Date of Service: 11/10/16 1342 Status: Signed Roller Repairer: Ev Mendoza RN (Registered Nurse) Pt unable [...] Date of Service: 11/10/16 1039 Status: Signed Roller Repairer: Elvi Reddy RN (Registered Nurse) Maria Isabel [...]
--- OUTSIDE RECORDS SUMMARY | ~2020-01-30 | XMS | Encounter Summary ---
Demographics + + + | Address | [address] | | | [place] [address] | + + + | Home Phone | | + + + | Preferred Language | Unknown | + + + | Marital Status | | + + + | Mormon Affiliation | 1013 | + + + | Race | Unknown | + + + | Ethnic Group | Unknown | + + + Author + + + | Author | [facility] | | | and [place]ana | + + + | Organization | [facility] | [...] [place] | | | | | [address] | | + + + + + Care Team Providers + +------+ + | Care Screening Specialist Name | Role | Phone | [...] + + | 10/11/ | Telephone | [facility] | Anival Stevenson MD | Results | | 2020 | | GENERAL SURGERY [address] | [address] | | | | | [address] | [address] [place], [place] | | | | | [place], [place] | [address] | | | | | [address] | | | | | | [phone] | | | +--------+ + + + [...]
--- OUTSIDE RECORDS SUMMARY | ~2020-01-30 | XMS | Encounter Summary ---
Demographics + + + | Address | [address] | | | [place] [address] | + + + | Home Phone | | + + + | Preferred Language | Unknown | + + + | Marital Status | | + + + | Voodoo Affiliation | 1013 | + + + | Race | Unknown | + + + | Ethnic Group | Unknown | + + + Author + + + | Author | [facility] | | | and [place]ana | + + + | Organization | [facility] | | | and [...] [place] | | | | | [address] | | + + + + + Care Team Providers + +------+ + | Care Picker And Packer Name | Role | Phone | + [...] [address]ia [address] | | | | | [place], [place] | [address] | | | | | [address] | [place] [address] | | | | | [phone] | [phone] | | | | | | | [...] + + | Hemoglobin | 5.6Comment: The Liberian | 4.0 - 6.0 % | EXTERNAL [...]
--- OUTSIDE RECORDS SUMMARY | ~2020-01-30 | XMS | Encounter Summary ---
Demographics + + + | Address | [address] | | | [place] [address] | + + + | Home Phone | | + + + | Preferred Language | Unknown | + + + | Marital Status | | + + + | Moravian Affiliation | Unknown | + + + | Race | White | + + + | Ethnic Group | Not or | + + + Author + + + | Author | [facility] | + + + | Organization | [facility] | + + + | Address | Unknown | + + + | Phone | Unavailable | + + + Support + + +---------+ + | Name | Relationship | Address | Phone | + + +---------+ + | Maria Isabel Cespedes | ECON | Unknown | | + + +---------+ + Care Team Providers + +------+ + | Care Hot Dip Galvanizer Name | Role | Phone | + [...] | | | | | [place], | | | | | | [place] [address] | | | +--------+--------+ + + + [...]
--- OUTSIDE RECORDS SUMMARY | ~2020-01-30 | XMS | Encounter Summary ---
Demographics + + + | Address | [address] | | | [place] [address] | + + + | Home Phone [...] + | Author | [facility] | | | and [place]ana | + + + | Organization | [facility] | | | and [place] [...] [place] | | | | | [address] | | + + + + + Care Team Providers + +------+ + | Care Perl Software Engineer Name | Role | Phone | + +------+ + | Allison Fairchild NP | PCP | | + +------+ + Encounter Details +--------+ + + + + | Date | Type | Department | Care Team | Description | +--------+ + + + + | 09/08/ | Anesthesia | [facility] | April Lee, | | | 2019 | [facility] | [facility] | MD Adriana DODSON | | | | | ANESTHESIA [address] | [place] [address] | | | | | [address] | [phone] | | | | | [place], [place] | | | | | | [address] | | | | | | [phone] | | | +--------+ + + + [...]
--- OUTSIDE RECORDS SUMMARY | ~2020-01-30 | XMS | Encounter Summary ---
Demographics + + + | Address | [address] | | | [place] [address] | + + + | Home Phone | | + + + | Preferred Language | Unknown | + + + | Marital Status | | + + + | Cheondoism Affiliation | Unknown | + + + [...] Team Providers + +------+ + | Care Alum Plant Supervisor Name | Role | Phone | [...] | | | | | | [place], [address] [place] [address] | | | | | | [place], [place] | | | | | | [address] | | | | | | [phone] | | | +--------+------+ + + + [...] | + + + + + | [facility] | [address] | [place] [address] | | | SERVICES, CORE | PARK [...] by | | | | | | [employer],[address] | | | | | | [place], [facility],[place] | | | | | | [address] | | | | | | [phone].[email or web address]. | | | | | | Melecio agrawal MD, | | | | | | Lab. Director | | | | + + + + + + + + | Specimen | + + | Blood - Blood | | (substance) | + + + + + + + | Performing | Address | City/State[facility] | Phone Number | | Organization | | | | + + + + + | [facility] | [address] | [place], [place] | | | [facility] | | [address] | | + + + + + [...] [facility] | [address] | [place] [address] | | | SERVICES, CORE | PARK [...] | | | LABORATORY | | | COLOMBIAN | | | SERVICES, | | | [...] MDRD equation recommended by the National | [facility] | | Kidney Disease Education Program. Estimated [...] [facility] | [address] | [place] [address] | | | SERVICES, CORE | PARK [...] + + + + + | [facility] | [address] | [place] [address] | | | SERVICES, CORE | [address] | | | + + + + + documented in this encounter Visit Diagnoses + + | Diagnosis | + + | Renal artery stenosis (HCC) Atherosclerosis of renal artery | + + documented in this encounter"
--- OUTSIDE RECORDS SUMMARY | ~2020-01-30 | XMS | Encounter Summary ---
Demographics + + + | Address | [address] | | | [place] [address] | + + + | Home Phone [...] | Author | [facility] | | | and Alexana | + + + | Organization | [facility] [...] [place] | | | | | [address] | | + + + + + Care Team Providers + +------+ + | Care Emotionally Impaired Teacher Name | Role | Phone | + +------+ + PCP | Unavailable | + +------+ + Encounter Details +--------+ + + + + | Date | Type | Department | Care Team | Description | +--------+ + + + + | 03/24/ | Emergency | [facility] | Sarabjit Rausch MD | Abdominal pain | | 2013 | | MEDICAL CENTER | [address] | | | | | EMERGENCY CENTER | [place] [address] | | | | | [address] | [phone] | | | | | [place], [place] | | | | | | [address] | | | | | | [phone] | | | +--------+ + + + [...] 300 COMPARISON: | | | 02/03/14 FINDINGS: Director Of Development And Marketing view shows numerous orthopedic fixation | | [...] | 100 mL IsoVue 300 COMPARISON:02/03/14 FINDINGS: Director Of Development And Marketing view shows numerous orthopedic | | fixation screws right [id number] visualized portions of the heart and lung [...] | | | | performed at [facility];888 | | LAB | | | | [address];[place] | | | | | | [address] | | | | + + + + + + | Red Blood | 4.49Comment: Testing | 4.20 - 5.70 | EXTERNAL | | | Cells | performed at [facility];888 | M/uL | LAB | | | Counted | [address];[place] | | | | | | [address] | | | | + + + + + + | Hemoglobin | 14.3Comment: Testing | 13.2 - 17.0 | EXTERNAL | | | | performed at [facility];888 | g/dL | LAB | | | | [address];[place] | | | | | | [address] | | | | + + + + + + | Hematocrit, | 41.7Comment: Testing | 39.0 - 50.0 % | EXTERNAL | | | POC | performed at [facility];888 | | LAB | | | | [address];[place] | | | | | | [address] | | | | + + + + + + | MCV | 92.9Comment: Testing | 80.0 - 100.0 fl | EXTERNAL | | | | performed at [facility];[address] | | LAB | | | | [address];[place] | | | | | | [address] | | | | + + + + + + | MCH | 31.8Comment: Testing | 27.0 - 34.0 pg | EXTERNAL | | | | performed at [facility];[address] | | LAB | | | | [address];[place] | | | | | | [address] | | | | + + + + + + | MCHC | 34.2Comment: Testing | 32.0 - 35.5 | EXTERNAL | | | | performed at [facility];888 | g/dL | LAB | | | | [address];[place] | | | | | | [address] | | | | + + + + + + | RDW-CV | 48.6Comment: Testing | 37 - 53 fl | EXTERNAL | | | | performed at [facility];888 | | LAB | | | | [address];[place] | | | | | | [address] | | | | + + + + + + | Platelet | 461 (H)Comment: Testing | 150 - 400 K/uL | EXTERNAL | | | Count | performed at [facility];888 | | LAB | | | Plasma | [address];[place] | | | | | | [address] | | | | + + + + + + | MPV | 7.7Comment: Testing | fl | EXTERNAL | | | | performed at [facility];[address] | | LAB | | | | [address];[place] | | | | | | [address] | | | | + + + + + + | Differentia | AUTOMATEDComment: | | EXTERNAL | | | l Type | Testing performed at | | LAB | | | | [facility];[address] | [address];[place] [address] | | | | + + + + + + | % Segmented | 66.3Comment: Testing | % | EXTERNAL | | | | performed at [facility];888 | | LAB | | | Neutrophils | [address];[place] | | | | | | [address] | | | | + + + + + + | % | 26.9Comment: Testing | % | EXTERNAL | | | Lymphocytes | performed at [facility];888 | | LAB | | | | [address];[place] | | | | | | [address] | | | | + + + + + + | % Monocytes | 5.1Comment: Testing | % | EXTERNAL | | | | performed at [facility];888 | | LAB | | | | [address];[place] | | | | | | [address] | | | | + + + + + + | % | 0.7Comment: Testing | % | EXTERNAL | | | Eosinophils | performed at [facility];888 | | LAB | | | | [address];[place] | | | | | | [address] | | | | + + + + + + | % Basophils | 1.0Comment: Testing | % | EXTERNAL | | | | performed at [facility];888 | | LAB | | | | [address];[place] | | | | | | [address] | | | | + + + + + + | Absolute | 8.4 (H)Comment: Testing | 1.9 - 7.4 K/uL | EXTERNAL | | | Segmented | performed at [facility];888 | | LAB | | | Neutrophils | [address];[place] | | | | | | [address] | | | | + + + + + + | Absolute | 3.4Comment: Testing | 1.0 - 3.9 K/uL | EXTERNAL | | | Lymphocytes | performed at [facility];888 | | LAB | | | | [address];[place] | | | | | | [address] | | | | + + + + + + | Absolute | 0.6Comment: Testing | 0 - 0.8 K/uL | EXTERNAL | | | Monocytes | performed at [facility];[address] | | LAB | | | | [address];[place] | | | | | | [address] | | | | + + + + + + | Absolute | 0.1Comment: Testing | 0 - 0.5 K/uL | EXTERNAL | | | Eosinophils | performed at [facility];888 | | LAB | | | | [address];[place] | | | | | | [address] | | | | + + + + + + | Absolute | 0.1Comment: Testing | 0 - 0.1 K/uL | EXTERNAL | | | Basophils | performed at [facility];[address] | | LAB | | | | [address];[place] | | | | | | [address] | | | | + + + [...] | | | | performed at [facility];888 | | LAB | | | | [address];[place], [place] | | | | | | [address] | | | | + + + [...] | | | | performed at [facility];888 | mmol/L | LAB | | | | [address];[place] | | | | | | [address] | | | | + + + + + + | K | 3.9Comment: Testing | 3.5 - 4.9 | EXTERNAL | | | | performed at [facility];888 | mmol/L | LAB | | | | [address];[place] | | | | | | [address] | | | | + + + + + + | Cl | 107Comment: Testing | 99 - 109 mmol/L | EXTERNAL | | | | performed at [facility];[address] | | LAB | | | | [address];[place] | | | | | | [address] | | | | + + + + + + | CO2 | 25Comment: Testing | 23 - 32 mmol/L | EXTERNAL | | | | performed at [facility];[address] | | LAB | | | | [address];[place] | | | | | | [address] | | | | + + + + + + | Anion Gap | 12Comment: Testing | 5 - 20 mmol/L | EXTERNAL | | | | performed at [facility];[address] | | LAB | | | | [address];[place] | | | | | | [address] | | | | + + + + + + | Glucose, | 111 (H)Comment: Testing | 65 - 99 mg/dL | EXTERNAL | | | Fasting | performed at [facility];888 | | LAB | | | | [address];[place] | | | | | | [address] | | | | + + + + + + | BUN | 19Comment: Testing | 8 - 25 mg/dL | EXTERNAL | | | | performed at [facility];[address] | | LAB | | | | [address];[place] | | | | | | [address] | | | | + + + + + + | Creatinine | 0.93Comment: Testing | 0.70 - 1.30 | EXTERNAL | | | | performed at [facility];888 | mg/dL | LAB | | | | [address];[place] | | | | | | [address] | | | | + + + + + + | BUN/Creatin | 20Comment: Testing | | EXTERNAL | | | ine Ratio | performed at [facility];888 | | LAB | | | | [address];[place] | | | | | | [address] | | | | + + + + + + | Calcium | 8.8Comment: Testing | 8.5 - 10.2 | EXTERNAL | | | | performed at [facility];888 | mg/dL | LAB | | | | [address];[place] | | | | | | [address] | | | | + + + + + + | Protein, | 7.2Comment: Testing | 6.3 - 8.2 g/dL | EXTERNAL | | | Total | performed at [facility];888 | | LAB | | | | [address];[place] | | | | | | [address] | | | | + + + + + + | Albumin | 3.3 (L)Comment: Testing | 3.6 - 5.0 g/dL | EXTERNAL | | | | performed at [facility];[address] | | LAB | | | | [address];[place] | | | | | | [address] | | | | + + + + + + | Globulin | 3.9Comment: Testing | 1.3 - 4.9 g/dL | EXTERNAL | | | | performed at [facility];888 | | LAB | | | | [address];[place] | | | | | | [address] | | | | + + + + + + | A/G Ratio | 0.8 (L)Comment: Testing | 1.0 - 2.4 | EXTERNAL | | | | performed at [facility];[address] | | LAB | | | | [address];[place] | | | | | | [address] | | | | + + + + + + | Bilirubin | 0.4Comment: Testing | 0.1 - 1.5 mg/dL | EXTERNAL | | | Total | performed at [facility];[address] | | LAB | | | | [address];[place] | | | | | | [address] | | | | + + + + + + | ALP, | 117 (H)Comment: Testing | 35 - 115 U/L | EXTERNAL | | | External | performed at [facility];[address] | | LAB | | | | [address];[place] | | | | | | [address] | | | | + + + + + + | AST | 66 (H)Comment: Testing | 10 - 45 U/L | EXTERNAL | | | | performed at [facility];[address] | | LAB | | | | [address];[place] | | | | | | [address] | | | | + + + + + + | ALT | 63Comment: Testing | 10 - 65 U/L | EXTERNAL | | | | performed at [facility];888 | | LAB | | | | [address];[place] | | | | | | [address] | | | | + + + [...] | | | | | at [facility];[address] [place] [address] | | | | | | [facility];[place] [address] | | | | + + + [...]
--- OUTSIDE RECORDS SUMMARY | ~2020-01-30 | XMS | Encounter Summary ---
Demographics + + + | Address | [address] | | | [place] [address] | + + + | Home Phone | | + + + | Preferred Language | Unknown | + + + | Marital Status | | + + + | Mormon Affiliation | Unknown | + + + | Race | White | + + + | Ethnic Group | Not or | + + + Author + + + | Author | [facility] | + + + | Organization | [facility] | + + + | Address | Unknown | + + + | Phone | Unavailable | + + + Support + + +---------+ + | Name | Relationship | Address | Phone | + + +---------+ + | Maria Isabel Cespedes | ECON | Unknown | | + + +---------+ + Care Team Providers + +------+ + | Care Clinical Nurse Manager Name | Role | Phone | [...] | | | | | | [place], [address] [place] [address] | | | | | | [place], [place] | | | | | | [address] | | | | | | [phone] | | | +--------+------+ + + + [...] | + + + + + | [facility] | [address] | [place] [address] | | | SERVICES, CORE | PARK [...] by | | | | | | [employer],[address] | | | | | | [address], [facility] | | | | | | [address] | | | | | | [phone].[email or web address]. | | | | | | Melecio agrawal MD, | | | | | | Lab. Director | | | | + + + + + + + + | Specimen | + + | Blood - Blood | | (substance) | + + + + + + + | Performing | Address | City/State/[facility] | Phone Number | | Organization | | | | + + + + + | [facility] | [address] | [place], [place] | | | [facility] | | [address] | | + + + + + [...] [facility] | [address] | [place] [address] | | | SERVICES, CORE | PARK [...] | | | LABORATORY | | | [place] | | | SERVICES, | | | [...] MDRD equation recommended by the National | [facility] | | Kidney Disease Education Program. Estimated [...] [facility] | [address] | [place] [address] | | | SERVICES, CORE | PARK [...] + + + + + | [facility] | [address] | [place] [address] | | | SERVICES, CORE | [address] | | | + + + + + documented in this encounter Visit Diagnoses + + | Diagnosis | + + | Renal artery stenosis (HCC) Atherosclerosis of renal artery | + + documented in this encounter"
--- OUTSIDE RECORDS SUMMARY | ~2020-01-30 | XMS | Encounter Summary ---
Demographics + + + | Address | [address] | | | [place] [address] | + + + | Home Phone [...] | Author | [facility] | | | and Alexana | + + + | Organization | [facility] | | [...] [place] | | | | | [address] | | + + + + + Care Team Providers + +------+ + | Care Backpackers Manager Name | Role | Phone | [...] | | | [place]T | [place] | | | | | [address] | [address] | | | | | [phone] | [phone] | | | | | | | [...] + +--------+ + + + | HEPATITIS C, | Routin | 01/01/2015 | | Results for this | | FIBROSURE PANEL | e | 2:15 PM | | procedure are in the | | | | PDT | | results section. | + +--------+ + + + documented in this encounter Results Hepatitis C, Fibrosure Panel (01/01/2015 2:15 PM PDT) + + + + + + | Component | Value | Ref Range | Performed | Pathologist | | | | | At | Signature | + + + + + + | HCV | 0.50 (H)Comment: Testing | 0.00 - 0.21 | EXTERNAL | | | FibroSURE | performed at [facility] | | LAB | | | Results | [address] | | | | | | [place], [place] [address] | | | | + + + + + + | FIBROSURE | SEE BELOWComment: F2, | | EXTERNAL | | | STAGE | BRIDGING FIBROSIS, FEW | | LAB | | | | SEPTATesting performed | | | | | | at [facility] [place], [address] | | | | | | [address] [place], [place], | | | | | | [place] [address] | | | | + + + + + + | Necroinflam | 0.19 (H)Comment: Testing | 0.00 - 0.17 | EXTERNAL | | | mat | performed at [facility] | | LAB | | | Activity | [place] | | | | | Score | [employer] Technician, [place] [address] | | | | + + + + + + | Necroinflam | A0 TO [id number]: Testing | | EXTERNAL | | | mat | performed at [facility] | | LAB | | | Activity | [place] | | | | | Grade | Inorganic Chemical Technician, [place] [address] | | | | + + + + + + | Alpha | 452 (H)Comment: Testing | 110 - 276 mg/dL | EXTERNAL | | | 2-Macroglob | performed by [facility], | | LAB | | | [place], [place]n | [address], | | | | | | [facility] [address] | | | | + + + + + + | Haptoglobin | 431 (H)Comment: Testing | 34 - 200 mg/dL | EXTERNAL | | | | performed by [facility], | | LAB | | | | [address] [facility], | | | | | | [facility] [address] | | | | + + + + + + | Apolipoprot | 111Comment: Testing | 110 - 180 mg/dL | EXTERNAL | | | ein A-1 | performed by [facility], | | LAB | | | | [address] [facility], | | | | | | [facility] [address] | | | | + + + + + + | Bilirubin, | 0.3Comment: Testing | 0.0 - 1.2 mg/dL | EXTERNAL | | | Total | performed by [facility], | | LAB | | | | [address] [facility], | | | | | | [facility] [address] | | | | + + + + + + | Gamma | 46Comment: Testing | 0 - 65 IU/L | EXTERNAL | | | Glutamyl | performed by [facility], | | LAB | | | Transferase | [address], | | | | | | [facility] [address] | | | | + + + + + + | ALT (SGPT) | 30Comment: Testing | 0 - 55 IU/L | EXTERNAL | | | P5P | performed by [facility], | | LAB | | | | [address], | | | | | | [facility] [address] | | | | + + + + + + | Interpretat | SEE BELOWComment: | | EXTERNAL | | | ion: | QUANTITATIVE RESULTS OF | | LAB | | | | 6 BIOCHEMICAL TESTS ARE | | | | | | ANALYZED USING | | | | | | ACOMPUTATIONAL ALGORITHM | | | | | | TO PROVIDE A | | | | | | QUANTITATIVE SURROGATE | | | | | | MARKER(0.0 TO 1.0) FOR | | | | | | LIVER FIBROSIS (METAVIR | | | | | | F0 THROUGH F4) AND | | | | | | FORNECROINFLAMMATORY | | | | | | ACTIVITY (METAVIR A0 | | | | | | THROUGH A3).FIBROSIS | | | | | | SCORING: | | | | | | <0.21 = STAGE F0 TO NO | | | | | | FIBROSIS 0.21 TO 0.27 = | | | | | | STAGE F0 TO F1 0.27 TO | | | | | | 0.31 = STAGE F1, PORTAL | | | | | | FIBROSIS 0.31 TO 0.48 = | | | | | | STAGE F1 TO F2 0.48 TO | | | | | | 0.58 = STAGE F2, | | | | | | BRIDGING FIBROSIS,FEW | | | | | | SEPTA 0.58 TO 0.72 = | | | | | | STAGE F3, BRIDGING | | | | | | FIBROSIS,MANY SEPTA 0.72 | | | | | | TO 0.74 = STAGE F3 TO | | | | | | F4 >0.74 = | | | | | | STAGE F4 TO | | | | | | CIRRHOSISNECROINFLAMM | | | | | | ACTIVITY SCORING: | | | | | | <0.17 = GRADE A0, | | | | | | NO ACTIVITY 0.17 TO 0.29 | | | | | | = GRADE A0 TO A1 0.29 | | | | | | TO 0.36 = GRADE A1, | | | | | | MINIMAL ACTIVITY 0.36 TO | | | | | | 0.52 = GRADE A1 TO A2 | | | | | | 0.52 TO 0.60 = GRADE A2, | | | | | | MODERATE ACTIVITY 0.60 | | | | | | TO 0.62 = GRADE A2 TO A3 | | | | | | >0.62 = | | | | | | GRADE A3, SEVERE | | | | | | ACTIVITYTesting | | | | | | performed at [facility] | | | | | | [address] | | | | | | [place] [address] | | | | + + + + + + | Limitations | SEE BELOWComment: THE | | EXTERNAL | | | : | NEGATIVE PREDICTIVE | | LAB | | | | VALUE OF A FIBROTEST | | | | | | SCORE <0.31 (ABSENCE | | | | | | OFCLINICALLY SIGNIFICANT | | | | | | FIBROSIS) WAS 85% WHEN | | | | | | COMPARED TO LIVER | | | | | | BIOPSYIN 1,270 HCV | | | | | | INFECTED PATIENTS WITH A | | | | | | 38% PREVALENCE OF | | | | | | SIGNIFICANTLIVER | | | | | | FIBROSIS (F2, 3, OR 4). | | | | | | THE POSITIVE PREDICTIVE | | | | | | VALUE OF AFIBROTEST | | | | | | SCORE >0.48 (F2, 3, OR | | | | | | 4) WAS 61% IN THAT SAME | | | | | | PATIENTCOHORT.HCV | | | | | | FIBROSURE IS NOT | | | | | | RECOMMENDED IN PATIENTS | | | | | | WITH GILBERT | | | | | | DISEASE,ACUTE HEMOLYSIS | | | | | | (E.G. HCV RIBAVIRIN | | | | | | THERAPY MEDIATED | | | | | | HEMOLYSIS) | | | | | | ACUTEHEPATITIS OF THE | | | | | | LIVER, EXTRA HEPATIC | | | | | | CHOLESTASIS, TRANSPLANT | | | | | | PATIENTS, AND/OR RENAL | | | | | | INSUFFICIENCY PATIENTS. | | | | | | ANY OF THESE | | | | | | CLINICALSITUATIONS MAY | | | | | | LEAD TO INACCURATE | | | | | | QUANTITATIVE PREDICTIONS | | | | | | OF FIBROSISAND | | | | | | NECROINFLAMMATORY | | | | | | ACTIVITY IN THE | | | | | | LIVER.Testing performed | | | | | | at [facility] [place], [address] | | | | | | [place], | | | | | | [place] [address] | | | | + + + + + + | Comment | SEE BELOWComment: THE | | EXTERNAL | | | | PERFORMANCE | | LAB | | | | CHARACTERISTICS OF THIS | | | | | | TEST HAVE BEEN | | | | | | [facility]ED [facility]. | | | | | | THIS TEST HAS NOT BEEN | | | | | | CLEARED OR APPROVED BY | | | | | | THE [place] FOOD ANDDRUG | | | | | | ADMINISTRATION [FDA]. | | | | | | THE FDA HAS DETERMINED | | | | | | THAT SUCH CLEARANCEOR | | | | | | APPROVAL IS NOT | | | | | | CURRENTLY REQUIRED. | | | | | | [facility] IS REGULATED | | | | | | UNDER THECLINICAL | | | | | | LABORATORY IMPROVEMENT | | | | | | AMENDMENTS OF 1987 | | | | | | [CLIA] AND ISCERTIFIED | | | | | | TO PERFORM HIGH | | | | | | COMPLEXITY | | | | | | TESTING.Testing | | | | | | performed at [facility] | | | | | | [address] | | | | | | [place] [address] | | | | + + + + + + + + | Specimen | + + | | + + + +---------+ + + | Performing | Address | City/State/[facility] | Phone Number | | Organization | | | | + +---------+ + + | EXTERNAL LAB | | | | + +---------+ + + documented in this encounter Visit Diagnoses Not on filedocumented in this encounter"
--- OUTSIDE RECORDS SUMMARY | ~2020-01-30 | XMS | Encounter Summary ---
Demographics + + + | Address | [address] | | | [place] [address] | + + + | Home Phone [...] [place] | | | | | [address] | | + + + + + Care Team Providers + +------+ + | Care Vehicle Washer Name | Role | Phone | [...] + + | 07/04/ | Emergency | [facility] | Herson Tobias, | Abdominal wall | | 2019 | | [facility] | PA-C [address] | abscess (Primary Dx) | | | | EMERGENCY CENTER | [place] [address] | | | | | [address] | [phone] | | | | | [place], [place] | | | | | | [address] | Obed Davis, | | | | | [phone] | MD [address] | | | | | | [place], [place] | | | | | | [address] | | | | | | [phone] | | | | | | | [...] through Care Everywhere.Abscess, Incisi on And Drainage (Macedonian)documented in this encounter Medications at Time of [...] D?MRN: | | | | | | [id number] | | | [id number] | | | riteri | | | [...] | | | St. | | | [place] | | | y | | | [...] | | | St. | | | [place] | | | y | | | [...] | | | St. | | | [place] | | | y H. | | [...] | | | St. | | | [place] | | | y H. | | [...] | | | St. | | | [place] | | | y H. | | [...] | | | St. | | | [place] | | | y H. | | [...] | | | S, | | | BUSINESS ADMINISTRATION INSTRUCTOR-C | | | Nurse | | | [...] administration of 100 mL | | | [id number] intravenous contrast. Multiplanar reconstructions. | | | [...] the administration of 100 mL | | [id number] intravenous contrast. Multiplanar reconstructions. | | | [...] Special | Testing performed at | | [facility] | | | Requests | [facility] | | LABORATORY | | | | [place] [address] | | | | + + + + + + | RESULT | NO GROWTH 6 DAYS | | [facility] | | | | | | LABORATORY | | + + + + + + | RESULT | Testing performed at | | [facility] | | | | TCL, [address] | | LABORATORY | | | | [place], [place] | | | | | | [id number]: Testing | | | | | | performed at [facility], [address] | | | | | | [address] [place], [place] | | | | | | [address] | | | | + + + + + + + + | Specimen | + + | Blood - Peripheral | | blood specimen | | (specimen) | + + + + + + + | Performing | Address | City/State/Zipcode | Phone Number | | Organization | | | | + + + + + | [facility] | [address] | [place] [address] | [phone] | + + + + + Culture, [...] Special | Testing performed at | | [facility] | | | Requests | [facility] | | LABORATORY | | | | [place] [address] | | | | + + + + + + | RESULT | NO GROWTH 6 DAYS | | [facility] | | | | | | LABORATORY | | + + + + + + | RESULT | Testing performed at | | [facility] | | | | TCL, [address] | | LABORATORY | | | | [place] | | | | | | [address]Bzpuxra: Testing | | | | | | performed at [facility], [address] | | | | | | [address] [place], [place] | | | | | | [address] | | | | + + + + + + + + | Specimen | + + | Blood - Swab of line | | insertion site | | (specimen) | + + + + + + + | Performing | Address | City/State/Zipcode | Phone Number | | Organization | | | | + + + + + | [facility] | [address] | [place] [address] | [phone] | + + + + + Lactic Acid (07/04/2019 8:10 PM PDT) + + + + + + | Component | Value | Ref Range | Performed | Pathologist | | | | | At | Signature | + + + + + + | Lactate, | 1.3Comment: Testing | 0.4 - 2.0 | [facility] | | | Serum | performed at [facility];[address] | mmol/L | LABORATORY | | | | [address];[place], [place] | | | | | | [address] | | | | + + + + + + + + | Specimen | + + | Blood | + + + + + + + | Performing | Address | City/State/Zipcode | Phone Number | | Organization | | | | + + + + + | [facility] | [address] | [place] [address] | [phone] | + + + + + Lipase (07/04/2019 8:10 PM PDT) + + + + + + | Component | Value | Ref Range | Performed | Pathologist | | | | | At | Signature | + + + + + + | Lipase | Comment: Testing | 12 - 53 U/L | [facility] | | | | performed at [facility];[address] | | LABORATORY | | | | [place] | | | | | | [address] | | | | + + + + + + + + | Specimen | + + | Blood | + + + + + + + | Performing | Address | City/State/Zipcode | Phone Number | | Organization | | | | + + + + + | [facility] | [address] | [place] [address] | [phone] | + + + + + Comprehensive [...] | | | | | | [facility]D [facility] traceable | | | | | | equation.Testing | | | | | | performed at [facility];[address] | | | | | | [facility];[place], [place] | | | | | | [address] | | | | + + + + + + + + | Specimen | + + | Blood | + + + + + + + | Performing | Address | City/State/Zipcode | Phone Number | | Organization | | | | + + + + + | [facility] | [address] | [place] [address] | [phone] | + + + + + CBC [...] 0.08Comment: Testing | 0.00 - 0.10 | [facility] | | | Absolute | performed at [facility];[address] | K/uL | LABORATORY | | | | [place] | | | | | | [address] | | | | + + + + + + + + | Specimen | + + | Blood | + + + + + + + | Performing | Address | City/State/Zipcode | Phone Number | | Organization | | | | + + + + + | [facility] | [address] | [place] [address] | [phone] | + + + + + Culture, [...] | [facility] | | | Result | [facility];[address] | | LABORATORY | | | | [address];[place] [address] | | | | + + + [...] Comment: Testing | | | performed at [facility], | | | [address], | | | [place] [address] | +---+ + + + + + + | Performing | Address | City/State/Zipcode | Phone Number | | Organization | | | | + + + + + | [facility] | [address] | [place] [address] | [phone] | + + + + + documented [...]
--- OUTSIDE RECORDS SUMMARY | ~2020-01-30 | XMS | Encounter Summary ---
Demographics + + + | Address | [address] | | | [place] [address] | + + + | Home Phone [...] | Author | [facility] | | | and [place] | + + + | Organization | [facility] | | | and [...] [place] | | | | | [address] | | + + + + + Care Team Providers + +------+ + | Care Renewable Energy Project Manager Name | Role | Phone [...] + + | 11/18/ | Anesthesia | [facility] | Tre Mann, | | | 2017 | Event | [facility] | DO [address] | | | | | [address] | [place] | | | | | [place] | [address] | | | | | [address] | | | | | | [phone] | | | +--------+ + + + [...] | 11/18/17926 by | | eral | [id number] catheter system; | Shayna Mena RN | [...]
--- OUTSIDE RECORDS SUMMARY | ~2020-01-30 | XMS | Encounter Summary ---
Demographics + + + | Address | [address] | | | [place] [address] | + + + | Home Phone [...] | Author | [facility] | | | and [place] | + + + | Organization | [facility] | [...] [place] | | | | | [address] | | + + + + + Care Team Providers + +------+ + | Care Drill Operator Pneumatic Name | Role | Phone | + [...] + + | 08/11/ | Telephone | [facility] | Jamie Bentley MD | Referral | | 2019 | | GENERAL SURGERY [address] | [address] | | | | | [address] | [address] [place], [place] | | | | | [place], [place] | [address] | | | | | [address] | | | | | | [phone] | | | +--------+ + + + [...]
--- OUTSIDE RECORDS SUMMARY | ~2020-01-30 | XMS | Encounter Summary ---
Demographics + + + | Address | [address] | | | [place] [address] | + + + | Home Phone [...] | Author | [facility] | | | and [place] | + + + | Organization | [facility] | | [...] [place] | | | | | [address] | | + + + + + Care Team Providers + +------+ + | Care Instrument Fitter Name | Role | Phone | + [...] + | 12/09/ | Telephone | [facility] | Adrian Aponte MD | Results | | 2016 | | GASTROENTEROLOGY | [address] [facility] | | | | | [address] [facility] | [place], [place] | | | | | [address] [place] | [address] | | | | | [address] | [phone] | | | | | [phone] | | | +--------+ + + + [...]
--- OUTSIDE RECORDS SUMMARY | ~2020-01-30 | XMS | Encounter Summary ---
Demographics + + + | Address | [address] | | | [place] [address] | + + + | Home Phone [...] | Author | [facility] | | | and [place] | + + + | Organization | [facility] | [...] [place] | | | | | [address] | | + + + + + Care Team Providers + +------+ + | Care Habitat Management Coordinator Name | Role | Phone | + +------+ + PCP | Unavailable | + +------+ + Encounter Details +--------+ + + + + | Date | Type | Department | Care Team | Description | +--------+ + + + + | 03/24/ | Emergency | [facility] | Sarabjit Rausch MD | Abdominal pain | | 2013 | | MEDICAL CENTER | [address] | | | | | EMERGENCY CENTER | [place] [address] | | | | | [address] | [phone] | | | | | [place], [place] | | | | | | [address] | | | | | | [phone] | | | +--------+ + + + [...] 300 COMPARISON: | | | 02/03/14 FINDINGS: Dipper Clock And Watch Hands view shows numerous orthopedic fixation | | [...] | 100 mL IsoVue 300 COMPARISON:02/03/14 FINDINGS: Dipper Clock And Watch Hands view shows numerous orthopedic | | fixation screws right [id number] visualized portions of the heart and lung [...] EXTERNAL | | | | performed at [facility];888 | | LAB | | | | [address];[place] | | | | | | [address] | | | | + + + + + + | Red Blood | 4.49Comment: Testing | 4.20 - 5.70 | EXTERNAL | | | Cells | performed at [facility];888 | M/uL | LAB | | | Counted | [address];[place] | | | | | | [address] | | | | + + + + + + | Hemoglobin | 14.3Comment: Testing | 13.2 - 17.0 | EXTERNAL | | | | performed at [facility];888 | g/dL | LAB | | | | [address];[place] | | | | | | [address] | | | | + + + + + + | Hematocrit, | 41.7Comment: Testing | 39.0 - 50.0 % | EXTERNAL | | | POC | performed at [facility];888 | | LAB | | | | [address];[place] | | | | | | [address] | | | | + + + + + + | MCV | 92.9Comment: Testing | 80.0 - 100.0 fl | EXTERNAL | | | | performed at [facility];888 | | LAB | | | | [address];[place] | | | | | | [address] | | | | + + + + + + | MCH | 31.8Comment: Testing | 27.0 - 34.0 pg | EXTERNAL | | | | performed at [facility];888 | | LAB | | | | [address];[place] | | | | | | [address] | | | | + + + + + + | MCHC | 34.2Comment: Testing | 32.0 - 35.5 | EXTERNAL | | | | performed at [facility];888 | g/dL | LAB | | | | [address];[place] | | | | | | [address] | | | | + + + + + + | RDW-CV | 48.6Comment: Testing | 37 - 53 fl | EXTERNAL | | | | performed at [facility];888 | | LAB | | | | [address];[place] | | | | | | [address] | | | | + + + + + + | Platelet | 461 (H)Comment: Testing | 150 - 400 K/uL | EXTERNAL | | | Count | performed at [facility];888 | | LAB | | | Plasma | [address];[place] | | | | | | [address] | | | | + + + + + + | MPV | 7.7Comment: Testing | fl | EXTERNAL | | | | performed at [facility];888 | | LAB | | | | [address];[place] | | | | | | [address] | | | | + + + + + + | Differentia | AUTOMATEDComment: | | EXTERNAL | | | l Type | Testing performed at | | LAB | | | | [facility];[address];[place] [address] | | | | + + + + + + | % Segmented | 66.3Comment: Testing | % | EXTERNAL | | | | performed at [facility];888 | | LAB | | | Neutrophils | [address];[place] | | | | | | [address] | | | | + + + + + + | % | 26.9Comment: Testing | % | EXTERNAL | | | Lymphocytes | performed at [facility];888 | | LAB | | | | [address];[place] | | | | | | [address] | | | | + + + + + + | % Monocytes | 5.1Comment: Testing | % | EXTERNAL | | | | performed at [facility];888 | | LAB | | | | [address];[place] | | | | | | [address] | | | | + + + + + + | % | 0.7Comment: Testing | % | EXTERNAL | | | Eosinophils | performed at [facility];888 | | LAB | | | | [address];[place] | | | | | | [address] | | | | + + + + + + | % Basophils | 1.0Comment: Testing | % | EXTERNAL | | | | performed at [facility];888 | | LAB | | | | [address];[place] | | | | | | [address] | | | | + + + + + + | Absolute | 8.4 (H)Comment: Testing | 1.9 - 7.4 K/uL | EXTERNAL | | | Segmented | performed at [facility];888 | | LAB | | | Neutrophils | [address];[place] | | | | | | [address] | | | | + + + + + + | Absolute | 3.4Comment: Testing | 1.0 - 3.9 K/uL | EXTERNAL | | | Lymphocytes | performed at [facility];888 | | LAB | | | | [address];[place] | | | | | | [address] | | | | + + + + + + | Absolute | 0.6Comment: Testing | 0 - 0.8 K/uL | EXTERNAL | | | Monocytes | performed at [facility];888 | | LAB | | | | [address];[place] | | | | | | [address] | | | | + + + + + + | Absolute | 0.1Comment: Testing | 0 - 0.5 K/uL | EXTERNAL | | | Eosinophils | performed at [facility];888 | | LAB | | | | [address];[place] | | | | | | [address] | | | | + + + + + + | Absolute | 0.1Comment: Testing | 0 - 0.1 K/uL | EXTERNAL | | | Basophils | performed at [facility];888 | | LAB | | | | [address];[place] | | | | | | [address] | | | | + + + [...] EXTERNAL | | | | performed at [facility];888 | | LAB | | | | [address];[place], [place] | | | | | | [address] | | | | + + + [...] EXTERNAL | | | | performed at [facility];888 | mmol/L | LAB | | | | [address];[place] | | | | | | [address] | | | | + + + + + + | K | 3.9Comment: Testing | 3.5 - 4.9 | EXTERNAL | | | | performed at [facility];888 | mmol/L | LAB | | | | [address];[place] | | | | | | [address] | | | | + + + + + + | Cl | 107Comment: Testing | 99 - 109 mmol/L | EXTERNAL | | | | performed at [facility];888 | | LAB | | | | [address];[place] | | | | | | [address] | | | | + + + + + + | CO2 | 25Comment: Testing | 23 - 32 mmol/L | EXTERNAL | | | | performed at [facility];888 | | LAB | | | | [address];[place] | | | | | | [address] | | | | + + + + + + | Anion Gap | 12Comment: Testing | 5 - 20 mmol/L | EXTERNAL | | | | performed at [facility];888 | | LAB | | | | [address];[place] | | | | | | [address] | | | | + + + + + + | Glucose, | 111 (H)Comment: Testing | 65 - 99 mg/dL | EXTERNAL | | | Fasting | performed at [facility];888 | | LAB | | | | [address];[place] | | | | | | [address] | | | | + + + + + + | BUN | 19Comment: Testing | 8 - 25 mg/dL | EXTERNAL | | | | performed at [facility];888 | | LAB | | | | [address];[place] | | | | | | [address] | | | | + + + + + + | Creatinine | 0.93Comment: Testing | 0.70 - 1.30 | EXTERNAL | | | | performed at [facility];888 | mg/dL | LAB | | | | [address];[place] | | | | | | [address] | | | | + + + + + + | BUN/Creatin | 20Comment: Testing | | EXTERNAL | | | ine Ratio | performed at [facility];888 | | LAB | | | | [address];[place] | | | | | | [address] | | | | + + + + + + | Calcium | 8.8Comment: Testing | 8.5 - 10.2 | EXTERNAL | | | | performed at [facility];888 | mg/dL | LAB | | | | [address];[place] | | | | | | [address] | | | | + + + + + + | Protein, | 7.2Comment: Testing | 6.3 - 8.2 g/dL | EXTERNAL | | | Total | performed at [facility];888 | | LAB | | | | [address];[place] | | | | | | [address] | | | | + + + + + + | Albumin | 3.3 (L)Comment: Testing | 3.6 - 5.0 g/dL | EXTERNAL | | | | performed at [facility];888 | | LAB | | | | [address];[place] | | | | | | [address] | | | | + + + + + + | Globulin | 3.9Comment: Testing | 1.3 - 4.9 g/dL | EXTERNAL | | | | performed at [facility];888 | | LAB | | | | [address];[place] | | | | | | [address] | | | | + + + + + + | A/G Ratio | 0.8 (L)Comment: Testing | 1.0 - 2.4 | EXTERNAL | | | | performed at [facility];888 | | LAB | | | | [address];[place] | | | | | | [address] | | | | + + + + + + | Bilirubin | 0.4Comment: Testing | 0.1 - 1.5 mg/dL | EXTERNAL | | | Total | performed at [facility];888 | | LAB | | | | [address];[place] | | | | | | [address] | | | | + + + + + + | ALP, | 117 (H)Comment: Testing | 35 - 115 U/L | EXTERNAL | | | External | performed at [facility];888 | | LAB | | | | [address];[place] | | | | | | [address] | | | | + + + + + + | AST | 66 (H)Comment: Testing | 10 - 45 U/L | EXTERNAL | | | | performed at [facility];888 | | LAB | | | | [address];[place] | | | | | | [address] | | | | + + + + + + | ALT | 63Comment: Testing | 10 - 65 U/L | EXTERNAL | | | | performed at [facility];888 | | LAB | | | | [address];[place] | | | | | | [address] | | | | + + + [...] | | | | | | at [facility];[address] [place] [address] | | | | | | [facility];[place] [address] | | | | + + + [...]
--- OUTSIDE RECORDS SUMMARY | ~2020-01-30 | XMS | Encounter Summary ---
Demographics + + + | Address | [address] | | | [place] [address] | + + + | Home Phone | | + + + | Preferred Language | Unknown | + + + | Marital Status | | + + + | Taoism Affiliation | [id number] | + + + | Race | Unknown | + + + | Ethnic Group | Unknown | + + + Author + + + | Author | [facility] | | | and [place] | + + + | Organization | [facility] [...] [place] | | | | | [address] | | + + + + + Care Team Providers + +------+ + | Care Lubrication Servicer Name | Role | Phone | + [...] + + | 01/21/ | Hospital | [facility] | Brennen Bobo | Acute abdominal pain | | 2018 - | Encounter | [facility] | MD Ricci [address] | (Primary Dx); | | | | [address] [place] | [address] [place] | Dehydration, | | 01/23/ | | [place] [address] | [place] [address] | moderate; | | 2018 | | [phone] | Ninoska Walker MD | Transaminitis; | | | | | [address] | Intractable vomiting | | | | | [place] | with nausea, | | | | | [address] | unspecified vomiting | | | | [...] might be differ ent from the original. [place] HOSPITALIST DISCHARGE SUMMARY Pt. Name/Age/: Reza [...] Nurse Practitioner Contact information: [address] [facility] [address] [facility] [address] Adrian Aponte MD In 3 weeks. Specialty: Gastroenterology Contact information: [address] [facility] [address] [facility] [address] Laboratory. Contact information: recheck CMP in 1 week Condition: Patient being discharged with condition improved Diet: soft low fat Greater than 30 minutes were spent on discharge and coordination of post-hospital care. Electronically signed by: Stephy Patel MD, 01/23/2018 12:17 [facility] Portions of this chart may have been created with Zen[employer] voice recognition software. Occasi onal wrong-word or sound-alike substitutions may have occurred due to the inherent costello itations of voice recognition software. Please read the chart carefully and recognize, using context, where these substitutions have occurred documented in this encounter Discharge Instructions AttachmentsThe following attachments cannot be sent through Care Everywhere.Shahriar zapata, Discharge Instructions (Citizen Of [place])documented in this encounter Medications at Time of [...] documented as of this encounter Progress Notes cD Naik MD - 01/23/2018 1:42 PM PDTPatient [...] All belongings gathered. went down to car. HYDROGEN CELL TENDER and RN took pt and belongings out [...] Prior to Admission Sig: Patient taking differently ENTRY CLERK as: Pantoprazole 20 mg tab 1 tab by mouth every morning before breakfast Not taking. Patient st ates medication is ineffective. Ondansetron 4 mg disintegrating tab Take 1 tab by mouth every 6 hours as needed for nausea Taking up to every 4 hours for severe nausea Best possible ENTRY CLERK medication list after pharmacy review: PT REPORTED [...] 1 tablet by mouth Daily. Taking Histo ricerlinda Devlin MD Nutritional Supplements (BOOST) LIQD Take [...] performed and electronically signed by Teresa Portillo, Heating Element Repairer 6:53 Reviewed by Rody Franco, PharmD 01/23/2018 7:36 Isha Rachel MD - 01/22/2018 4:06 PM PDTFormatting of this note might be different from the origi nal. [facility] [place] HOSPITALIST BRIEF NOTE Patient: Reza Cespedes : 1960: Age: 57 y.o. MedRec: [id number] Admission date: 01/21/2018 Hospital day # : [...] arge tomorrow. Stephy Patel MD 01/22/2018 16:06 [facility] Portions of this chart may have been created with Zenytime voice recognition software. Occasi onal wrong-word or [...] [address] | [place] | [phone] | | [facility] | | [address] | | | - LABORATORY | | [...] 11 | 7 - 18 mg/dL | [facility] | | | | | | [facility] | | | | | | MEDICAL | | | | | | CENTER - | | | | | | LABORATORY | | + + + + + + | Creatinine | 0.85 | 0.60 - 1.30 | [facility] | | | | | mg/dL | [facility] | | | | | | MEDICAL | | | | | | CENTER - | | | | | | LABORATORY | | + + + + + + | eGFR if not | >60Comment: GLOMERULAR | >=60 | [facility] | | | | FILTRATION | mL/min/1.73m2 | [facility] | | | [place] | RATE,ESTIMATED | | MEDICAL | | | | mL/min/1.08n5Srdy than | | CENTER - | | [...] [address] | [place] | [phone] | | [facility] | | [address] | | | - LABORATORY | | [...] 01/22/2018 | PROVATION | | 2:09 PMMRN: [id number] #: [id number] of : | | | 1960Admit Type: InpatientAge: 57Room: [facility] 01Gender: MaleNote | | | Status: FinalizedAttending MD: Dc Naik , MDProcedure: | | | ERCPIndications: Abnormal abdominal CT, Bile duct stone on | | | Computed Tomogram Scan, Abnormal MRCP, | | | Abnormal abdominal ultrasoundProviders: Dc Naik, | | | , Perla Ponce RN, Aracelis Lewis RN, | | | Jluis Ruiz CMA, Edyta Rees, Management Trainee, | | | Tremaine Stevenson MD (Anesthesia [...] | | | the anesthesiologist and the bulk mail technician in the endoscopy suite. | | [...] | biliary stent was visible on the pot pusher film. The esophagus was | | | [...] | | 2:23:41 PMScope Out: 2:40:01 PM [facility] | | | [place], [address] [place] [address] | | | - Advance diet as [...] |Scope Out: 2:40:01 PM | | | Merged With [facility], [address] [place] [address] | | | [address] | | + + -+ + +---------+ [...] 2018. PROTOCOL: | | | Coronal T2 pot pusher, axial T2 pot pusher, coronal 3D respiratory triggered, | | | [...] | dated January 22, 2018.PROTOCOL: Coronal T2 pot pusher, axial T2 pot pusher, coronal 3D respiratory | | triggered,coronal T2 [...] [address] | [place] | [phone] | | [facility] | | [address] | | | - LABORATORY | | [...] Performed at: 01 - Nando [facility]ier [address] [facility], | REFERENCE LAB | | [place] [id number] Corduroy Cutter Operator: Rom Stinson MD, Phone: | [facility] | | [phone] | | + + + + + + + + | Performing | Address | City/State/Zipcode | Phone Number | | Organization | | | | + + + + + | REFERENCE LAB | [address] | [place], [place] | [phone] | | [facility] | [employer] [employer] [facility] | [address] | | + + + + + [...] [place] [address], | REFERENCE LAB | | [place], [place] [id number] Corduroy Cutter Operator: Arturo Brariga MD, Phone: | [facility] | | [phone] | | + + + + + + + + | Performing | Address | City/State/Zipcode | Phone Number | | Organization | | | | + + + + + | REFERENCE LAB | [address] | [place], [place] | [phone] | | [facility] | [address] | [address] | | + + + + + [...] | REFERENCE LAB | | [place] [id number] Corduroy Cutter Operator: Rom Stinson MD, Phone: | [facility] | | [phone] | | + + + + + + + + | Performing | Address | City/State/Zipcode | Phone Number | | Organization | | | | + + + + + | REFERENCE LAB | [address] | [place], [place] | [phone] | | [facility] | [facility] | [address] | | + + + + + [...] + | [facility] | [address] | [place] | [phone] | | [facility] | | [address] | | | - LABORATORY | | [...] + | [facility] | [address] | [place] | [phone] | | [facility] | | [address] | | | - LABORATORY | | [...] [address] | [place] | [phone] | | [facility] | | [address] | | | - LABORATORY | | [...] [address] | [place] | [phone] | | [facility] | | [address] | | | - LABORATORY | | [...] + | [facility] | [address] | [place] | [phone] | | [facility] | | [address] | | | - LABORATORY | | [...] [address] | [place] | [phone] | | [facility] | | [address] | | | - LABORATORY | | [...] test | | | | | | ([id number]). | | | | + + + + + + + + | Specimen | + + | Blood | + + + + + | Narrative | Performed At | + + + | Performed at: 01 - [place] [address] [address] [address], | REFERENCE LAB | | [place], [place] [id number] Corduroy Cutter Operator: Samuel Wallace MD, Phone: | [facility] | | [phone] | | + + + + + + + + | Performing | Address | City/State/Zipcode | Phone Number | | Organization | | | | + + + + + | REFERENCE LAB | [address] | [place], [place] | [phone] | | [facility] | [address] | [address] | | + + + + + [...] + | [address] | [address] | [place] | [phone] | | [facility] | | [address] | | | - LABORATORY | | [...] ST. | [address] | [place], [place] | [phone] | | [facility] | | [address] | | | - LABORATORY | | [...] ST. | [address] | [place] | [phone] | | [facility] | | [address] | | | - LABORATORY | | [...] | 0.90 | 0.60 - 1.30 | [facility] | | | | | mg/dL | [facility] | | | | | | MEDICAL | | | | | | CENTER - | | | | | | LABORATORY | | + + + + + + | eGFR if not | >60Comment: GLOMERULAR | >=60 | [facility] | | | | FILTRATION | mL/min/1.73m2 | [facility] | | | [place] | RATE,ESTIMATED | | MEDICAL | | | | mL/min/1.64n8Jbjl than | | CENTER - | | [...] ST. | [address] | [place], [place] | [phone] | | [facility] | | [address] | | | - LABORATORY | | [...] + + | Performing | Address | City/State/[facility] Centercode | Phone Number | | [...] - 1.030 | [facility] | | | [place], | | | [facility] | | [...] ST. | [address] | [place], [place] | [phone] | | [facility] | | [address] | | | - LABORATORY | | [...] | Top Tube | | | [facility] | | | | | | MEDICAL [...] [address] | [place] | [phone] | | [facility] | | [address] | | | - LABORATORY | | [...] | Top Tube | | | [facility] | | [...] [address] | [place] | [phone] | | [facility] | | [address] | | | - LABORATORY | | [...] + | [facility] | [address] | [place] | [phone] | | [facility] | | [address] | | | - LABORATORY | | [...] | | Top Tube | | | [place] | | | [...] + | [facility] | [address] | [place] | [phone] | | [facility] | | [address] | | | - LABORATORY | | [...] | | [facility] | | [address] | | | - BLOOD BANK | [...] + | [facility] | [address] | [place], [place] | [phone] | | [facility] | | [address] | | | - LABORATORY | | [...] mL/min/1.73m2 | [facility] | | | [place] | RATE,ESTIMATED | | MEDICAL | | | | mL/min/1.30g7Tass than | | CENTER - | | [...] + | [facility] | [address] | [place] | [phone] | | [facility] | | [address] | | | - LABORATORY | | [...] [address] | [place] | [phone] | | [facility] | | [address] | | | - LABORATORY | | [...] PDT | | | | | Starting [facility] 01/21/18 at 2223, For | | | [...] | | | | | Intravenous, ONCE, [facility] 01/21/18 at | | PM PDT | [...] PDT | | | | | ONCE, [facility] 01/21/18 at 2225, For 1 | | [...] PDT | | | | | ONCE, [facility] 01/22/18 at 0015, For 1 | | [...] AM PDT | | | | | [facility] 01/21/18 at 2200 | | | | [...]
--- OUTSIDE RECORDS SUMMARY | ~2020-01-30 | XMS | Encounter Summary ---
Demographics + + + | Address | [address] | | | [place] [address] | + + + | Home Phone [...] | Author | [facility] | | | and [place] | + + + | Organization | [facility] [...] [address] | | | | | [facility] [place] [place] | | | | | [address] | | + + + + + Care Team Providers + +------+ + | Care Supervisor Harvesting Name | Role | Phone | + [...] | | | | [address] [facility] | [place], [place] | | | | | [address] [place] | [address] | | | | | [address] | [phone] | | | | | [phone] | | | +--------+ + + + [...] ST. | [address] | [place] | | | [facility] | | [address], [facility] | | | - LABORATORY [...]
--- OUTSIDE RECORDS SUMMARY | ~2020-01-30 | XMS | Encounter Summary ---
Demographics + + + | Address | [address] | | | [place] [address] | + + + | Home Phone [...] | Author | [facility] | | | and [place] | + + + | Organization | [facility] | | | and [...] [place] | | | | | [address] | | + + + + + Care Team Providers + +------+ + | Care Recruitment Officer Name | Role | Phone | [...] | [address] | [place], [place] | Dysphagia | | | | [address], [place] | [address] | | | | | [address] | [phone] | | | | | [phone] | | | +--------+ + + + [...]
--- OUTSIDE RECORDS SUMMARY | ~2020-01-30 | XMS | Encounter Summary ---
Demographics + + + | Address | [address] | | | [place] [address] | + + + | Home Phone [...] Author | [facility] | | | and [place] | + + + | Organization | [facility] | | | and [place] | + + + | Address | Unknown | + + + | Phone | Unavailable | + + + Support + + + + + | Name | Relationship | Address | Phone | + + + + + | Teodora Cespedes | ECON | [address] | | | | | [place], [place] | | | | | [address] | | + + + + + Care Team Providers + +------+ + | [employer] Executive Director Name | Role | Phone | + +------+ + | Allison Fairchild NP | PCP | | + +------+ + Encounter Details +--------+ + + + + | Date | Type | Department | Care Team | Description | +--------+ + + + + | 11/09/ | Abstract | [facility] | Perez King, | | | 2018 | | PHYSIATRY [address] | PA-C [address] | | | | [address] | [address] [place] | | | | | [place], [place] | [place] [address] | | | | | [address] | [phone] | | | | | [phone] | | | +--------+ + + + [...]
--- OUTSIDE RECORDS SUMMARY | ~2020-01-30 | XMS | Encounter Summary ---
Demographics + + + | Address | [address] | | | [place] [address] | + + + | Home Phone [...] | Author | [facility] | | | and [place]ana | + + + | Organization | [facility] | [...] [address] | | | | | [facility] [place] | | | | | [address] | | + + + + + Care Team Providers + +------+ + | Care General Manager Food Name | Role | Phone | + +------+ + PCP | Unavailable | + +------+ + Encounter Details +--------+ + + + + | Date | Type | Department | Care Team | Description | +--------+ + + + + | 06/29/ | Hospital | [facility] | Conversion | | | 2013 | Encounter | CENTER [facility] | Transaction, | | | | | CLINIC [address] | Provider Unknown | | | | | [place], [place] | | | | | | [address] | (Fax) | | | | | [phone] | | | +--------+ + + + [...] | | | | | [place] [address] | | | | + + + + + + | Red Blood | 4.52Comment: Testing | 4.20 - 5.70 | EXTERNAL | | | Cells | performed at [facility], [address] | M/uL | LAB | | | Counted | [address], | | | | | | [place] [address] | | | | + + + + + + | Hemoglobin | 13.9Comment: Testing | 13.2 - 17.0 | EXTERNAL | | | | performed at [facility], [address] | g/dL | LAB | | | | [address], | | | | | | [place] [address] | | | | + + + + + + | Hematocrit, | 41.5Comment: Testing | 39.0 - 50.0 % | EXTERNAL | | | POC | performed at [facility], [address] | | LAB | | | | [address], | | | | | | [place] [address] | | | | + + + + + + | MCV | 91.9Comment: Testing | 80.0 - 100.0 fl | EXTERNAL | | | | performed at [facility], [address] | | LAB | | | | [address], | | | | | | [place] [address] | | | | + + + + + + | MCH | 30.7Comment: Testing | 27.0 - 34.0 pg | EXTERNAL | | | | performed at [facility], [address] | | LAB | | | | [address], | | | | | | [place] [address] | | | | + + + + + + | MCHC | 33.4Comment: Testing | 32.0 - 35.5 | EXTERNAL | | | | performed at [facility], [address] | g/dL | LAB | | | | [address], | | | | | | [place] [address] | | | | + + + + + + | RDW-CV | 47.3Comment: Testing | 37 - 53 fl | EXTERNAL | | | | performed at [facility], [address] | | LAB | | | | [address], | | | | | | [place] [address] | | | | + + + + + + | Platelet | 290Comment: Testing | 150 - 400 K/uL | EXTERNAL | | | Count | performed at [facility], [address] | | LAB | | | Plasma | [address], | | | | | | [place] [address] | | | | + + + + + + | MPV | 8.8Comment: Testing | fl | EXTERNAL | | | | performed at [facility], [address] | | LAB | | | | [address], | | | | | | [place] [address] | | | | + + + + + + | Differentia | AUTOMATEDComment: | | EXTERNAL | | | l Type | Testing performed at | | LAB | | | | [facility], [address] | | | | | | [place] | | | | | | [address] | | | | + + + + + + | % Segmented | 57.5Comment: Testing | % | EXTERNAL | | | | performed at [facility], [address] | | LAB | | | Neutrophils | [address], | | | | | | [place] [address] | | | | + + + + + + | % | 30.3Comment: Testing | % | EXTERNAL | | | Lymphocytes | performed at [facility], [address] | | LAB | | | | [place], | | | | | | [place] [address] | | | | + + + + + + | % Monocytes | 9.0Comment: Testing | % | EXTERNAL | | | | performed at [facility], [address] | | LAB | | | | [address], | | | | | | [place] [address] | | | | + + + + + + | % | 2.1Comment: Testing | % | EXTERNAL | | | Eosinophils | performed at [facility], [address] | | LAB | | | | [address], | | | | | | [place] [address] | | | | + + + + + + | % Basophils | 1.1Comment: Testing | % | EXTERNAL | | | | performed at [facility], [address] | | LAB | | | | [address], | | | | | | [place] [address] | | | | + + + + + + | Absolute | 5.5Comment: Testing | 1.9 - 7.4 K/uL | EXTERNAL | | | Segmented | performed at [facility], [address] | | LAB | | | Neutrophils | [address], | | | | | | [place] [address] | | | | + + + + + + | Absolute | 2.9Comment: Testing | 1.0 - 3.9 K/uL | EXTERNAL | | | Lymphocytes | performed at [facility], [address] | | LAB | | | | [place], | | | | | | [place] [address] | | | | + + + + + + | Absolute | 0.9 (H)Comment: Testing | 0 - 0.8 K/uL | EXTERNAL | | | Monocytes | performed at [facility], [address] | | LAB | | | | [address], | | | | | | [place] [address] | | | | + + + + + + | Absolute | 0.2Comment: Testing | 0 - 0.5 K/uL | EXTERNAL | | | Eosinophils | performed at [facility], [address] | | LAB | | | [address], | | | | | | [place] [address] | | | | + + + + + + | Absolute | 0.1Comment: Testing | 0 - 0.1 K/uL | EXTERNAL | | | Basophils | performed at [facility], [address] | | LAB | | | | [place], | | | | | | [place] [address] | | | | + + + [...] | | | | | [place] [address] | | | | + + + + + + | K | 4.4Comment: Testing | 3.5 - 4.9 | EXTERNAL | | | | performed at [facility], [address] | mmol/L | LAB | | | | [address], | | | | | | [place] [address] | | | | + + + + + + | Cl | 104Comment: Testing | 99 - 109 mmol/L | EXTERNAL | | | | performed at [facility], [address] | | LAB | | | | [address], | | | | | | [place] [address] | | | | + + + + + + | CO2 | 27Comment: Testing | 23 - 32 mmol/L | EXTERNAL | | | | performed at [facility], [address] | | LAB | | | | [address], | | | | | | [place] [address] | | | | + + + + + + | Anion Gap | 8Comment: Testing | 5 - 20 mmol/L | EXTERNAL | | | | performed at [facility], [address] | | LAB | | | | [address], | | | | | | [place] [address] | | | | + + + + + + | Glucose, | 111 (H)Comment: Testing | 65 - 99 mg/dL | EXTERNAL | | | Fasting | performed at [facility], [address] | | LAB | | | | [address], | | | | | | [place] [address] | | | | + + + + + + | BUN | 13Comment: Testing | 8 - 25 mg/dL | EXTERNAL | | | | performed at [facility], [address] | | LAB | | | | [address], | | | | | | [place] [address] | | | | + + + + + + | Creatinine | 0.92Comment: Testing | 0.70 - 1.30 | EXTERNAL | | | | performed at [facility], [address] | mg/dL | LAB | | | | [address], | | | | | | [place] [address] | | | | + + + + + + | BUN/Creatin | 14Comment: Testing | | EXTERNAL | | | ine Ratio | performed at [facility], [address] | | LAB | | | | [address], | | | | | | [place] [address] | | | | + + + + + + | Calcium | 9.4Comment: Testing | 8.5 - 10.2 | EXTERNAL | | | | performed at [facility], [address] | mg/dL | LAB | | | | [facility], | | | | | | [place] [address] | | | | + + + [...] W | | | | | | [address], | | | | | | [place] [address] | | | | + + + [...]
--- OUTSIDE RECORDS SUMMARY | ~2020-01-30 | XMS | Encounter Summary ---
Demographics + + + | Address | [address] | | | [place] [address] | + + + | Home Phone | | + + + | Preferred Language | Unknown | + + + | Marital Status | | + + + | Sikhism Affiliation | 1013 | + + + | Race | Unknown | + + + | Ethnic Group | Unknown | + + + Author + + + | Author | [facility] | | | and [place] | + + + | Organization | [facility] | [...] [place] | | | | | [address] | | + + + + + Care Team Providers + +------+ + | Care Nozzle Worker Name | Role | Phone | [...] | | | [place] | [place] | | | | | [address] | [address] | | | | | [phone] | [phone] | | | | | | | [...] EXTERNAL | | | | performed at [facility] | | LAB | | | | Health;[address] | | | | | | [place] | | | | | | [address] | | | | + + + [...]
--- OUTSIDE RECORDS SUMMARY | ~2020-01-30 | XMS | Encounter Summary ---
Demographics + + + | Address | [address] | | | [place] [address] | + + + | Home Phone | | + + + | Preferred Language | Unknown | + + + | Marital Status | | + + + | Rastafarian Affiliation | 1013 | + + + | Race | Unknown | + + + | Ethnic Group | Unknown | + + + Author + + + | Author | [facility] | | | and [place] | + + + | Organization | [facility] | | | and [place] [...] [place] | | | | | [address] | | + + + + + Care Team Providers + +------+ + | Care Transliterator Name | Role | Phone | + [...] [place] | | | | | [address] | [address] | | | | | [phone] | [phone] | | | | | | | [...] | | Results for this | | RNA,QUANTITATIVE,PCR | e | 2:15 PM | | procedure are in the | | | | PDT | | results section. | + +--------+ + + + documented in this encounter Results Hepatitis C RNA, quantitative, PCR (01/01/2015 2:15 PM PDT) + + + + + + | Component | Value | Ref Range | Performed | Pathologist | | | | | At | Signature | + + + + + + | HCV-LOG 10 | 5.3 (A)Comment: Testing | Log IU/mL | EXTERNAL | | | | performed at [facility], [address] | | LAB | | | | [facility] | | | | | | [place] [address] | | | | + + + + + + | HCV | [id number] (A)Comment: | IU/mL | EXTERNAL | | | Quantitativ | REPORTABLE RANGE HCV RNA | | LAB | | | e | 1.2 TO 8.0 LOG IU/ML | | | | | | (15 TO | | | | | | 100,000,000IU/ML). | | | | | | THIS ASSAY WAS PERFORMED | | | | | | USING THE FDA APPROVED | | | | | | HUMA | | | | | | COBASAMPLIPREP/PANKAJ | | | | | | TAQMAN HCV TEST, V2.0. | | | | | | THE PANKAJ | | | | | | AMPLIPREP/COBASTAQMAN | | | | | | HCV TEST, V2.0 IS NOT | | | | | | INTENDED FOR USE A | | | | | | SCREENING TEST FORTHE | | | | | | PRESENCE OF HCV IN BLOOD | | | | | | OR BLOOD | | | | | | PRODUCTS.Testing | | | | | | performed at [facility], [address] | | | | | | [place] | | | | | | [place] [address] | | | | + + + [...]
--- OUTSIDE RECORDS SUMMARY | ~2020-01-30 | XMS | Encounter Summary ---
Demographics + + + | Address | [address] | | | [place] [address] | + + + | Home Phone [...] | Author | [facility] | | | and [place] | + + + | Organization | [facility] [...] [place] | | | | | [address] | | + + + + + Care Team Providers + +------+ + | Care Direct Response Consultant Name | Role | Phone | [...] + | 11/16/ | Telephone | [facility] | Adrian Aponte MD | EGD | | 2018 | | GASTROENTEROLOGY | [address] | | | | | [address] [facility] | [place], [place] | | | | | [address] [place] | [address] | | | | | [address] | [phone] | | | | | [phone] | | | +--------+ + + + [...]
--- OUTSIDE RECORDS SUMMARY | ~2020-01-30 | XMS | Encounter Summary ---
Demographics + + + | Address | [address] | | | [place] [address] | + + + | Home Phone [...] + | Author | [facility] | | | and [place] | + + + | Organization | [facility] | [...] [place] | | | | | [address] | | + + + + + Care Team Providers + +------+ + | Care Timber Appraiser Name | Role | Phone | + [...] + | 11/12/ | Telephone | [facility] | Adrian Aponte MD | EGD | | 2018 | | GASTROENTEROLOGY | [address] | | | | | [address] [facility] | [place], [place] | | | | | [address] [place] | [address] | | | | | [address] | [phone] | | | | | [phone] | | | +--------+ + + + [...]
--- OUTSIDE RECORDS SUMMARY | ~2020-01-30 | XMS | Encounter Summary ---
Demographics + + + | Address | [address] | | | [place] [address] | + + + | Home Phone [...] + + | Author | [facility] | | | and [place] | + + + | Organization | [facility] | | | and [...] [place] | | | | | [address] | | + + + + + Care Team Providers + +------+ + | Care Field Artillery Crewmember Name | Role | Phone | + +------+ + | Allison Fairchild NP | PCP | | + +------+ + Encounter Details +--------+ + + + + | Date | Type | Department | Care Team | Description | +--------+ + + + + | 02/21/ | Hospital | [facility] | 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
--- OUTSIDE RECORDS SUMMARY | ~2020-01-30 | XMS | Encounter Summary ---
Demographics + + + | Address | [address] | | | [place] [address] | + + + | Home Phone [...] + | Author | [facility] | | | and [place] | + + + | Organization | [facility] | | [...] [place] | | | | | [address] | | + + + + + Care Team Providers + +------+ + | Care Appointment Specialist Name | Role | Phone | [...] [place] | | | | | [address] | [address] | | | | | [phone] | [phone] | | | | | | | [...] EXTERNAL | | | | performed at [facility] | | LAB | | | | Health;[address] | | | | | | [place] | | | | | | [address] | | | | + + + [...]
--- OUTSIDE RECORDS SUMMARY | ~2020-01-30 | XMS | Encounter Summary ---
Demographics + + + | Address | [address] | | | [place] [address] | + + + | Home Phone [...] + | Author | [facility] | | | and [place] | + + + | Organization | [facility] [...] [place] | | | | | [address] | | + + + + + Care Team Providers + +------+ + | Care Plastic Bubble Packer Name | Role | Phone | [...] | | | [place] | [place] | | | | | [address] | [address] | | | | | [phone] | | | | | | | [...] | EXTERNAL LAB: [facility] | Routin | 10/03/2013 | | Results for this | | | e | 3:30 PM | | procedure are in the | | | | PST | | results section. | + +--------+ + + + | EXTERNAL LAB: [facility] | Routin | 10/03/2013 | | Results for this | | | e | 3:30 PM | | procedure are in the | | | | PST | | results section. | + +--------+ + + + documented in this encounter Results External Lab: [facility] (10/03/2013 3:30 PM PST) + + + + + + | Component | Value | Ref Range | Performed | Pathologist | | | | | At | Signature | + + + + + + | WBC | 9.6Comment: Testing | 3.8 - 11.0 K/uL | EXTERNAL | | | | performed at [facility] | | LAB | | | | Health;[address] | | | | | | [place] | | | | | | [address] | | | | + + + + + + | Red Blood | 4.18 (L)Comment: Testing | 4.20 - 5.70 | EXTERNAL | | | Cells | performed at [facility] | M/uL | LAB | | | Counted | Health;[address] | | | | | | [place] | | | | | | [address] | | | | + + + + + + | Hemoglobin | 11.6 (L)Comment: Testing | 13.2 - 17.0 | EXTERNAL | | | | performed at [facility] | g/dL | LAB | | | | Health;[address] | | | | | | [place] | | | | | | [address] | | | | + + + + + + | Hematocrit, | 36.1 (L)Comment: Testing | 39.0 - 50.0 % | EXTERNAL | | | POC | performed at [facility] | | LAB | | | | Health;[address] | | | | | | [place] | | | | | | [address] | | | | + + + + + + | MCV | 86.4Comment: Testing | 80.0 - 100.0 fl | EXTERNAL | | | | performed at [facility] | | LAB | | | | Health;[address] | | | | | | [place] | | | | | | [address] | | | | + + + + + + | MCH | 27.8Comment: Testing | 27.0 - 34.0 pg | EXTERNAL | | | | performed at [facility] | | LAB | | | | Health;[address] | | | | | | [place] | | | | | | [address] | | | | + + + + + + | MCHC | 32.2Comment: Testing | 32.0 - 35.5 | EXTERNAL | | | | performed at [facility] | g/dL | LAB | | | | Health;[address] | | | | | | [place] | | | | | | [address] | | | | + + + + + + | RDW-CV | 59.1 (H)Comment: Testing | 37 - 53 fl | EXTERNAL | | | | performed at [facility] | | LAB | | | | Health;[address] | | | | | | [place] | | | | | | [address] | | | | + + + + + + | Platelet | 629 (H)Comment: Testing | 150 - 400 K/uL | EXTERNAL | | | Count | performed at [facility] | | LAB | | | Plasma | Health;[address] | | | | | | [place] | | | | | | [address] | | | | + + + + + + | MPV | 7.7Comment: Testing | fl | EXTERNAL | | | | performed at [facility] | | LAB | | | | Health;[address] | | | | | | [place] | | | | | | [address] | | | | + + + + + + | Differentia | AUTOMATEDComment: | | EXTERNAL | | | l Type | Testing performed at | | LAB | | | | [facility];[address] | | | | | | [place] | | | | | | [address] | | | | + + + + + + | % Segmented | 76.5 | % | EXTERNAL | | | | | | LAB | | | Neutrophils | | | | | + + + + + + | % | 16.7 | % | EXTERNAL | | | Lymphocytes | | | LAB | | + + + + + + | % Monocytes | 5.2 | % | EXTERNAL | | | | | | LAB | | + + + + + + | % | 1.3 | % | EXTERNAL | | | Eosinophils | | | LAB | | + + + + + + | % Basophils | 0.3 | % | EXTERNAL | | | | | | LAB | | + + + + + + | Absolute | 7.4 | 1.9 - 7.4 K/uL | EXTERNAL | | | Segmented | | | LAB | | | Neutrophils | | | | | + + + + + + | Absolute | 1.6 | 1.0 - 3.9 K/uL | EXTERNAL | | | Lymphocytes | | | LAB | | + + + + + + | Absolute | 0.5 | 0 - 0.8 K/uL | EXTERNAL | | | Monocytes | | | LAB | | + + + + + + | Absolute | 0.1 | 0 - 0.5 K/uL | EXTERNAL | | | Eosinophils | | | LAB | | + + + + + + | Absolute | 0.0 | 0 - 0.1 K/uL | EXTERNAL | | | Basophils | | | LAB | | + + + + + + | Platelet | INCREASED | | EXTERNAL | | | Estimate | | | LAB | | + + + + + + | [facility] | SLIDE SCANNED, AGREES | | EXTERNAL | | | l Comments | WITH AUTOMATED RESULTS. | | LAB | | + + + + + + | RBC | 2+Comment: ANISO | | EXTERNAL | | | Morphology | | | LAB | | + + + + + + + + | Specimen | + + | | + + + +---------+ + + | Performing | Address | City/State/Zipcode | Phone Number | | Organization | | | | + +---------+ + + | EXTERNAL LAB | | | | + +---------+ + + External Lab: CBC (10/03/2013 3:30 PM PST) + + + + + + | Component | Value | Ref Range | Performed | Pathologist | | | | | At | Signature | + + + + + + | WBC | 9.6Comment: Testing | 3.8 - 11.0 K/uL | EXTERNAL | | | | performed at [facility] | | LAB | | | | Health;[address] | | | | | | [place] | | | | | | [address] | | | | + + + + + + | Red Blood | 4.18 (L)Comment: Testing | 4.20 - 5.70 | EXTERNAL | | | Cells | performed at [facility] | M/uL | LAB | | | Counted | Health;[address] | | | | | | [place] | | | | | | [address] | | | | + + + + + + | Hemoglobin | 11.6 (L)Comment: Testing | 13.2 - 17.0 | EXTERNAL | | | | performed at [facility] | g/dL | LAB | | | | Health;[address] | | | | | | [place] | | | | | | [address] | | | | + + + + + + | Hematocrit, | 36.1 (L)Comment: Testing | 39.0 - 50.0 % | EXTERNAL | | | POC | performed at [facility] | | LAB | | | | Health;[address] | | | | | | [place] | | | | | | [address] | | | | + + + + + + | MCV | 86.4Comment: Testing | 80.0 - 100.0 fl | EXTERNAL | | | | performed at [facility] | | LAB | | | | Health;[address] | | | | | | [place] | | | | | | [address] | | | | + + + + + + | MCH | 27.8Comment: Testing | 27.0 - 34.0 pg | EXTERNAL | | | | performed at [facility] | | LAB | | | | Health;[address] | | | | | | [place] | | | | | | [address] | | | | + + + + + + | MCHC | 32.2Comment: Testing | 32.0 - 35.5 | EXTERNAL | | | | performed at [facility] | g/dL | LAB | | | | Health;[address] | | | | | | [place] | | | | | | [address] | | | | + + + + + + | RDW-CV | 59.1 (H)Comment: Testing | 37 - 53 fl | EXTERNAL | | | | performed at [facility] | | LAB | | | | Health;[address] | | | | | | [place] | | | | | | [address] | | | | + + + + + + | Platelet | 629 (H)Comment: Testing | 150 - 400 K/uL | EXTERNAL | | | Count | performed at [facility] | | LAB | | | Plasma | Health;[address] | | | | | | [place] | | | | | | [address] | | | | + + + + + + | MPV | 7.7Comment: Testing | fl | EXTERNAL | | | | performed at [facility] | | LAB | | | | Health;[address] | | | | | | [place] | | | | | | [address] | | | | + + + + + + | Differentia | AUTOMATEDComment: | | EXTERNAL | | | l Type | Testing performed at | | LAB | | | | [facility];[address] | | | | | | [place] | | | | | | [address] | | | | + + + + + + | % Segmented | 76.5 | % | EXTERNAL | | | | | | LAB | | | Neutrophils | | | | | + + + + + + | % | 16.7 | % | EXTERNAL | | | Lymphocytes | | | LAB | | + + + + + + | % Monocytes | 5.2 | % | EXTERNAL | | | | | | LAB | | + + + + + + | % | 1.3 | % | EXTERNAL | | | Eosinophils | | | LAB | | + + + + + + | % Basophils | 0.3 | % | EXTERNAL | | | | | | LAB | | + + + + + + | Absolute | 7.4 | 1.9 - 7.4 K/uL | EXTERNAL | | | Segmented | | | LAB | | | Neutrophils | | | | | + + + + + + | Absolute | 1.6 | 1.0 - 3.9 K/uL | EXTERNAL | | | Lymphocytes | | | LAB | | + + + + + + | Absolute | 0.5 | 0 - 0.8 K/uL | EXTERNAL | | | Monocytes | | | LAB | | + + + + + + | Absolute | 0.1 | 0 - 0.5 K/uL | EXTERNAL | | | Eosinophils | | | LAB | | + + + + + + | Absolute | 0.0 | 0 - 0.1 K/uL | EXTERNAL [...]
--- OUTSIDE RECORDS SUMMARY | ~2020-01-30 | XMS | Encounter Summary ---
Demographics + + + | Address | [address] | | | [place] [address] | + + + | Home Phone [...] Author | [facility] | | | and [place] | + + + | Organization | [facility] | [...] [place] | | | | | [address] | | + + + + + Care Team Providers + +------+ + | Care Snack Stewardess Name | Role | Phone | + [...] + | 11/16/ | Telephone | [facility] | Adrian Aponte MD | EGD | | 2018 | | GASTROENTEROLOGY | [address] | | | | | [address] [facility] | [place], [place] | | | | | [address] [place] | [address] | | | | | [address] | [phone] | | | | | [phone] | | | +--------+ + + + [...]
--- OUTSIDE RECORDS SUMMARY | ~2020-01-30 | XMS | Encounter Summary ---
Demographics + + + | Address | [address] | | | [place] [address] | + + + | Home Phone | | + + + | Preferred Language | Unknown | + + + | Marital Status | | + + + | Gnosticist Affiliation | 1013 | + + + | Race | Unknown | + + + | Ethnic Group | Unknown | + + + Author + + + | Author | [facility] | | | and [place] | + + + | Organization | [facility] | | [...] [place] | | | | | [address] | | + + + + + Care Team Providers + +------+ + | Care Screed Operator Name | Role | Phone | [...] + + | 09/06/ | Hospital | [facility] | Anival Stevenson MD | 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 1960 Admit date: 09/06/2019 Discharge [...] bruising may occur. It appears as a pahed-foe-szwh area around the incision and indic ates [...] suspect a problem. Our office number is [phone] documented in this encounter Medications at Time [...] Stevenson MD - 09/12/2019 11:01 AM PST [facility]: General Surgery Progress Note Hospital Day: [...] Pelayo MD - 09/11/2019 10:48 AM PST [facility]: General Surgery Progress Note Hospital Day: [...] MD - 09/10/2019 11:17 AM PS T [facility]: General Surgery Progress Note Hospital Day: [...] Groups: infusion therapy, home Community Agency Name: [facility] Other Resources: Discharge Transportation Transportation Needs: family or friend will provide Notes: Pt from home and was on IV ABX with [facility] home infusion. I called [facility] and Pt [...] Pelayo MD - 09/09/2019 10:23 AM PST [facility]: General Surgery Progress Note Hospital Day: [...] s Caregiver: (P) spouse/significant other, homecare agency (specify)([facility] for h ome IVAB) Functional Status: ambulatory [...] Contact Information: Name: Araiza (P) Phone: P) [phone] Pager: Fax: DC Needs Assessment Current Outpt/Agency/Support [...] Steps: Notes: Patient discharged on 07/29/2019 with [facility] for home IVAB. CM to follow for [...] Pelayo MD - 09/08/2019 8:17 AM PST [facility]: General Surgery Progress Note Hospital Day: [...] Pelayo MD - 09/07/2019 12:46 PM PST [facility]: General Surgery Progress Note Hospital Day: [...] | | | | | | MDRD IDNV traceable | | | | | | equation.Testing | | | | | | performed at [facility], [address] | | | | | | [facility], | | | | | | [place] [address] | | | | + + + + + + + + | Specimen | + + | Blood | + + + + + + + | Performing | Address | City/State/Zipcode | Phone Number | | Organization | | | | + + + + + | [facility] | [address] | [place] [address] | [phone] | + + + + + CBC [...] [facility] | | | | performed at [facility], [address] | | LABORATORY | | | | [place], | | | | | | [place] [address] | | | | + + + + + + + + | Specimen | + + | Blood | + + + + + + + | Performing | Address | City/State/Zipcode | Phone Number | | Organization | | | | + + + + + | [facility] | [address] | [place] [address] | [phone] | + + + + + POC [...] | | | POC | performed at [facility];[address] | | LABORATORY | | | | [place], [place] | | | | | | [address] | | | | + + + + + + + + | Specimen | + + | | + + + + + + + | Performing | Address | City/State/Zipcode | Phone Number | | Organization | | | | + + + + + | [facility] | [address] [facility] | [place] [address] | [phone] | + + + + + CBC [...] [facility] | | | | performed at [facility], [address] | | LABORATORY | | | | [place], | | | | | | [place] [address] | | | | + + + + + + + + | Specimen | + + | Blood | + + + + + + + | Performing | Address | City/State/Zipcode | Phone Number | | Organization | | | | + + + + + | [facility] | [address] | [place] [address] | [phone] | + + + + + Basic [...] >60Comment: GFR <60: | >60 | [facility] | | | GFR | CHRONIC [...] | | | | | performed at [facility], [address] | | | | | | [facility], | | | | | | [place] [address] | | | | + + + + + + + + | Specimen | + + | Blood | + + + + + + + | Performing | Address | City/State/Zipcode | Phone Number | | Organization | | | | + + + + + | [facility] | [address] | [place] [address] | [phone] | + + + + + Basic [...] | | | | | performed at [facility], [address] | | | | | | [facility], | | | | | | [place] [address] | | | | + + + + + + + + | Specimen | + + | Blood | + + + + + + + | Performing | Address | City/State/Zipcode | Phone Number | | Organization | | | | + + + + + | [facility] | [address] | [place] [address] | [phone] | + + + + + CBC [...] [facility] | | | | performed at [facility], [address] | | LABORATORY | | | | [place], | | | | | | [place] [address] | | | | + + + + + + + + | Specimen | + + | Blood | + + + + + + + | Performing | Address | City/State/Zipcode | Phone Number | | Organization | | | | + + + + + | [facility] | [address] | [place] [address] | [phone] | + + + + + POC Glucose (09/06/2019 3:14 PM PST) + + + + + + | Component | Value | Ref Range | Performed | Pathologist | | | | | At | Signature | + + + + + + | Glucose, | 119 (H)Comment: Testing | 65 - 99 mg/dL | [facility] | | | POC | performed at [facility];[address] | | LABORATORY | | | | [place], [place] | | | | | | [address] | | | | + + + + + + + + | Specimen | + + | | + + + + + + + | Performing | Address | City/State/Zipcode | Phone Number | | Organization | | | | + + + + + | [facility] | [address] | [place] [address] | [phone] | + + + + + Surgical [...] | fecal material and a brock-white exudate. Business Controller sections are | | | submitted in [...] | | technical component was performed by [facility], [address] [place] [address] | | | [place] [address] (Infrastructure Analyst: Mckayla Andino MD; CLIA# | | | [id number]). Professional interpretation was performed by[facility] | | | [employer], | | | [place] [address] (Infrastructure Analyst: Renaldo Love M.D.; CLIA#: | | | [id number]). Diagnostician: Arturo Foster | | | DOPathologistElectronically Signed 09/12/2019 | | | | | |PERFORMING LABORATORY: | | |The technical component was performed by [facility], [address] [place] [address] (Infrastructure Analyst: Mckayla Andino MD; CLIA# [id number]). Professional interpretation was performed by | | |[facility] [address] (Infrastructure Analyst: Renaldo Love M.D.; CLIA#: [id number]). | | | | | |Diagnostician: Arturo [...] | | | | | | longer, kzqwwj-ghj-qyajc use of | | | | | [...] | | | | | | | uochhi-ewu-qovhu use of at least | | | [...]
--- OUTSIDE RECORDS SUMMARY | ~2020-01-30 | XMS | Encounter Summary ---
Demographics + + + | Address | [address] | | | [place] [address] | + + + | Home Phone | | + + + | Preferred Language | Unknown | + + + | Marital Status | | + + + | Mandaen Affiliation | 1013 | + + + | Race | Unknown | + + + | Ethnic Group | Unknown | + + + Author + + + | Author | [facility] | | | and [place] | + + + | Organization | [facility] | [...] [place] | | | | | [address] | | + + + + + Care Team Providers + +------+ + | Care Body And Frame Man Name | Role | Phone | + [...] + + | 09/06/ | Documentati | [facility] | Lesa Dodd, | Other (Labs from | | 2019 | on | INFECTIOUS DISEASE | Program Engineer | [facility] | | | | [address] | | 08/29/2019(CBC,CMP,E | | | | [place] | | SR,CRP)..) | | | | [address] | | | | | | [phone] | | | +--------+ + + + [...] of this encounter Progress Notes Lesa Dodd, Program Engineer - 09/06/2019 2:12 PM PSTLabs from [facility] 08/08(CBC,CMP,ESR,CRP).. RECEIVED: 09/05/2019 Labs were abstracted into [employer] and sent to scan. Nicolette CMA. P [...] [address] | [place] | [phone] | | [facility] [place] | | [address] | | + + + + + [...] [address] | [place] | [phone] | | [facility] | | [address] | | + + + + + [...] LAB | [address] | [place] | [phone] | | [facility] | | [address] | | + + + + + [...] + + + | REFERENCE LAB | [address] [facility] [address] [facility] | [place] | [phone] | | [facility] [place] | | [address] | | + + + + + documented in this encounter Visit Diagnoses Not on filedocumented in this encounter"
--- OUTSIDE RECORDS SUMMARY | ~2020-01-30 | XMS | Encounter Summary ---
Demographics + + + | Address | [address] | | | [place] [address] | + + + | Home Phone [...] + | Author | [facility] | | | and [place] | + + + | Organization | [facility] | | | and [...] [place] | | | | | [address] | | + + + + + Care Team Providers + +------+ + | Care Granite Worker Name | Role | Phone | [...] [place] | | | | | [address] | [address] | | | | | [phone] | [phone] | | | | | | | [...] [place] | | | | | | [address] | | | | + + + + + + | Clarity | CLEARComment: Testing | | EXTERNAL | | | | performed at [facility] | | LAB | | | | Health;[address] | | | | | | [place] | | | | | | [address] | | | | + + + + + + | Specific | 1.025Comment: Testing | 1.002 - 1.030 | EXTERNAL | | | Morrill, | performed at [facility] | | LAB | | | Urine | Health;[address] | | | | | | [place] | | | | | | [address] | | | | + + + + + + | Leukocyte | NEGATIVEComment: Testing | | EXTERNAL | | | Esterase, | performed at [facility] | | LAB | | | Urine | Health;[address] | | | | | | [place] | | | | | | [address] | | | | + + + + + + | Nitrite, | NEGATIVEComment: Testing | | EXTERNAL | | | Urine | performed at [facility] | | LAB | | | | Health;[address] | | | | | | [place] | | | | | | [address] | | | | + + + + + + | Urobilinoge | 0.2Comment: Testing | mg/dL | EXTERNAL | | | n, Urine | performed at [facility] | | LAB | | | | Health;[address] | | | | | | [place] | | | | | | [address] | | | | + + + + + + | Protein, | NEGATIVEComment: Testing | mg/dL | EXTERNAL | | | Urine | performed at [facility] | | LAB | | | | Health;[address] | | | | | | [place] | | | | | | [address] | | | | + + + + + + | pH, Urine | 5.5Comment: Testing | 5.0 - 8.0 | EXTERNAL | | | | performed at [facility] | | LAB | | | | Health;[address] | | | | | | [place] | | | | | | [address] | | | | + + + + + + | Blood, | NEGATIVEComment: Testing | | EXTERNAL | | | Urine | performed at [facility] | | LAB | | | | Health;[address] | | | | | | [place] | | | | | | [address] | | | | + + + + + + | Ketones | NEGATIVEComment: Testing | mg/dL | EXTERNAL | | | | performed at [facility] | | LAB | | | | Health;[address] | | | | | | [place] | | | | | | [address] | | | | + + + + + + | Bilirubin, | NEGATIVEComment: Testing | | EXTERNAL | | | Urine | performed at [facility] | | LAB | | | | Health;[address] | | | | | | [place] | | | | | | [address] | | | | + + + + + + | Glucose, | NEGATIVEComment: Testing | mg/dL | EXTERNAL | | | Urine | performed at [facility] | | LAB | | | | Health;[address] | | | | | | [place] | | | | | | [address] | | | | + + + + + + | WBC, UA | NONE SEENComment: | 0 - 5 /hpf | EXTERNAL | | | | Testing performed at | | LAB | | | | [facility];[address] | | | | | | [place] | | | | | | [address] | | | | + + + + + + | RBC, UA | NONE SEENComment: | 0 - 2 /hpf | EXTERNAL | | | | Testing performed at | | LAB | | | | [facility];[address] | | | | | | [place] | | | | | | [address] | | | | + + + + + + | Epithelial | NONE SEENComment: | /lpf | EXTERNAL | | | Cells | Testing performed at | | LAB | | | | [facility];[address] | | | | | | [place] | | | | | | [address] | | | | + + + + + + | Bacteria, | 1+ (A)Comment: Testing | | EXTERNAL | | | UA | performed at [facility] | | LAB | | | | Health;[address] | | | | | | [place] | | | | | | [address] | | | | + + + [...]
--- OUTSIDE RECORDS SUMMARY | ~2020-01-30 | XMS | Encounter Summary ---
Demographics + + + | Address | [address] | | | [place] [address] | + + + | Home Phone [...] + | Author | [facility] | | | and [place] | + + + | Organization | [facility] [...] [place] | | | | | [address] | | + + + + + Care Team Providers + +------+ + | Care Synthetic Staple Extruder Name | Role | Phone | + [...] | [address] | [place], [place] | | | | | [address] [place] | [address] | | | | | [address] | [phone] | | | | | [phone] | | | +--------+ + + + [...]
--- OUTSIDE RECORDS SUMMARY | ~2020-01-30 | XMS | Encounter Summary ---
Demographics + + + | Address | [address] | | | [place] [address] | + + + | Home Phone [...] | Author | [facility] | | | and [place] | + + + | Organization | [facility] | | | and [...] [place] | | | | | [address] | | + + + + + Care Team Providers + +------+ + | Care Biological Photographer Name | Role | Phone | + [...] | | | [place] | [place] | | | | | [address] | [address] | | | | | [phone] | [phone] | | | | | | | [...] EXTERNAL | | | | performed at [facility] | | LAB | | | | Health;[address] | | | | | | [place] | | | | | | [address] | | | | + + + [...]
--- OUTSIDE RECORDS SUMMARY | ~2020-01-30 | XMS | Encounter Summary ---
Demographics + + + | Address | [address] | | | [place] [address] | + + + | Home Phone | | + + + | Preferred Language | Unknown | + + + | Marital Status | | + + + | Taoist Affiliation | 1013 | + + + | Race | Unknown | + + + | Ethnic Group | Unknown | + + + Author + + + | Author | [facility] | | | and [place] | + + + | Organization | [facility] | | | and [place] | [...] [place] | | | | | [address] | | + + + + + Care Team Providers + +------+ + | Care Wool Supplier Name | Role | Phone | + [...] [place] | | | | | [address] | [address] | | | | | [phone] | [phone] | | | | | | | [...] [place] | | | | | | [address] | | | | + + + + + + | K | 4.8Comment: Testing | 3.5 - 4.9 | EXTERNAL | | | | performed at [facility] | mmol/L | LAB | | | | Health;[address] | | | | | | [place] | | | | | | [address] | | | | + + + + + + | Cl | 104Comment: Testing | 99 - 109 mmol/L | EXTERNAL | | | | performed at [facility] | | LAB | | | | Health;[address] | | | | | | [place] | | | | | | [address] | | | | + + + + + + | CO2 | 21 (L)Comment: Testing | 23 - 32 mmol/L | EXTERNAL | | | | performed at [facility] | | LAB | | | | Health;[address] | | | | | | [place] | | | | | | [address] | | | | + + + + + + | Anion Gap | 14Comment: Testing | 5 - 20 mmol/L | EXTERNAL | | | | performed at [facility] | | LAB | | | | Health;[address] | | | | | | [place] | | | | | | [address] | | | | + + + + + + | Glucose, | 93Comment: Testing | 65 - 99 mg/dL | EXTERNAL | | | Fasting | performed at [facility] | | LAB | | | | Health;[address] | | | | | | [place] | | | | | | [address] | | | | + + + + + + | BUN | 19Comment: Testing | 8 - 25 mg/dL | EXTERNAL | | | | performed at [facility] | | LAB | | | | Health;[address] | | | | | | [place] | | | | | | [address] | | | | + + + + + + | Creatinine | 0.7Comment: Testing | 0.70 - 1.30 | EXTERNAL | | | | performed at [facility] | mg/dL | LAB | | | | Health;[address] | | | | | | [place] | | | | | | [address] | | | | + + + + + + | BUN/Creatin | 27Comment: Testing | | EXTERNAL | | | ine Ratio | performed at [facility] | | LAB | | | | Health;[address] | | | | | | [place] | | | | | | [address] | | | | + + + + + + | Calcium | 8.7Comment: Testing | 8.5 - 10.2 | EXTERNAL | | | | performed at [facility] | mg/dL | LAB | | | | Health;[address] | | | | | | [place] | | | | | | [address] | | | | + + + + + + | Protein, | 6.4Comment: Testing | 6.3 - 8.2 g/dL | EXTERNAL | | | Total | performed at [facility] | | LAB | | | | Health;[address] | | | | | | [place] | | | | | | [address] | | | | + + + + + + | Albumin | 2.8 (L)Comment: Testing | 3.6 - 5.0 g/dL | EXTERNAL | | | | performed at [facility] | | LAB | | | | Health;[address] | | | | | | [place] | | | | | | [address] | | | | + + + + + + | Globulin | 3.6Comment: Testing | 1.3 - 4.9 g/dL | EXTERNAL | | | | performed at [facility] | | LAB | | | | Health;[address] | | | | | | [place] | | | | | | [address] | | | | + + + + + + | A/G Ratio | 0.8 (L)Comment: Testing | 1.0 - 2.4 | EXTERNAL | | | | performed at [facility] | | LAB | | | | Health;[address] | | | | | | [place] | | | | | | [address] | | | | + + + + + + | Bilirubin | 0.2Comment: Testing | 0.1 - 1.5 mg/dL | EXTERNAL | | | Total | performed at [facility] | | LAB | | | | Health;[address] | | | | | | [place] | | | | | | [address] | | | | + + + + + + | ALP, | 102Comment: Testing | 35 - 115 U/L | EXTERNAL | | | External | performed at [facility] | | LAB | | | | Health;[address] | | | | | | [place] | | | | | | [address] | | | | + + + + + + | AST | 49 (H)Comment: Testing | 10 - 45 U/L | EXTERNAL | | | | performed at [facility] | | LAB | | | | Health;[address] | | | | | | [place] | | | | | | [address] | | | | + + + + + + | ALT | 57Comment: Testing | 10 - 65 U/L | EXTERNAL | | | | performed at [facility] | | LAB | | | | Health;[address] | | | | | | [place] | | | | | | [address] | | | | + + + [...] | | | | | | at [facility];[address] | | | | | | [place] | | | | | | [address] | | | | + + + [...]
--- OUTSIDE RECORDS SUMMARY | ~2020-01-30 | XMS | Encounter Summary ---
Demographics + + + | Address | [address] | | | [place] [address] | + + + | Home Phone [...] Author | [facility] | | | and [place]ana | + + + | Organization | [facility] | | | and [place]ana | [...] [place] | | | | | [address] | | + + + + + Care Team Providers + +------+ + | Care Marine Scientist Name | Role | Phone | [...] + + | 01/22/ | Surgery | [facility] | Dc Naik MD | ERCP | | 2018 | | MED CTR MP INTRA OP | [address], [place] | | | | | [address] | [address] [place] [address] | | | | | [place], [place] | [address] | | | | | [address] | | | | | | [phone] | | | +--------+---------+ + + + [...] might be differ ent from the original. [place] HOSPITALIST DISCHARGE SUMMARY Pt. Name/Age/: Reza [...] information: [address] [place] [address] [facility] [address] Adrian Aponte MD In 3 weeks. Specialty: Gastroenterology Contact information: [address] [place] [address] [facility] [address] Laboratory. Contact information: recheck CMP in 1 week Condition: Patient being discharged with condition improved Diet: soft low fat Greater than 30 minutes were spent on discharge and coordination of post-hospital care. Electronically signed by: Stephy Patel MD, 01/23/2018 12:17 [facility] Portions of this chart may have been created with [employer] voice recognition software. Occasi onal wrong-word or sound-alike substitutions may have occurred due to the inherent costello itations of voice recognition software. Please read the chart carefully and recognize, using context, where these substitutions have occurred documented in this encounter Discharge Instructions AttachmentsThe following attachments cannot be sent through Care Everywhere.Biliary Cathete r, Discharge Instructions (Latvian)documented in this encounter Medications at Time of [...] All belongings gathered. went down to car. DIRECT SALES PROFESSIONAL and RN took pt and belongings out [...] Pharmacy list names: [facility] [employer] insurance reported information X Outside [...] Prior to Admission Sig: Patient taking differently CHILD'S NURSE as: Pantoprazole 20 mg tab 1 tab by mouth every morning before breakfast Not taking. Patient st ates medication is ineffective. Ondansetron 4 mg disintegrating tab Take 1 tab by mouth every 6 hours as needed for nausea Taking up to every 4 hours for severe nausea Best possible CHILD'S NURSE medication list after pharmacy review: PT REPORTED [...] performed and electronically signed by Teresa Portillo, Grounds Crew Supervisor 6:53 Reviewed by Rody Franco, PharmD 01/23/2018 7:36 Isha Rachel MD - 01/22/2018 4:06 PM PDTFormatting of this note might be different from the origi nal. [facility] [place] HOSPITALIST BRIEF NOTE Patient: Reza Cespedes : 1960: Age: 57 y.o. MedRec: [id number] Admission date: 01/21/2018 Hospital day # : [...] arge tomorrow. Stephy Patel MD 01/22/2018 16:06 [facility] Portions of this chart may have been created with [employer] voice recognition software. Occasi onal wrong-word or [...] + | [facility] | [address] | [place] | [phone] | | [facility] | | [address] | | | - LABORATORY | | [...] | | | FILTRATION | mL/min/1.73m2 | [facility] | | | GUY[place]ESE | RATE,ESTIMATED | | MEDICAL | | | | mL/min/1.82i2Yanv than | | CENTER - | | [...] | | | | | mg/dL | [facility] | | | | | [...] [address] | [place] | [phone] | | [facility] | | [address] | | | - LABORATORY | | [...] 01/22/2018 | PROVATION | | 2:09 PMMRN: [id number] #: [id number] of : | | | 1960Admit Type: InpatientAge: 57Room: [facility] 01Gender: MaleNote | | | Status: FinalizedAttending MD: Dc Naik , [facility]cedure: | | | ERCPIndications: Abnormal abdominal CT, Bile duct stone on | | | Computed Tomogram Scan, Abnormal MRCP, | | | Abnormal abdominal ultrasoundProviders: Dc Naik, | | | , Perla Ponce RN, Aracelis Lewis RN, | | | Jluis Ruiz CMA, Edyta Rees, Plaster Model And Mold Maker, | | | Tremaine Stevenson MD (Anesthesia [...] | | | the anesthesiologist and the library cataloging technician in the endoscopy suite. | | [...] | biliary stent was visible on the ems driver film. The esophagus was | | | [...] | | 2:23:41 PMScope Out: 2:40:01 PM [facility] | | | [place], [address] [place] [address] | | | - Advance diet as [...] |Scope Out: 2:40:01 PM | | | [facility], [address] [place] [address] | | | [address] | | + + -+ + +---------+ [...] 2018. PROTOCOL: | | | Coronal T2 ems driver, axial T2 ems driver, coronal 3D respiratory triggered, | | | [...] | dated January 22, 2018.PROTOCOL: Coronal T2 ems driver, axial T2 ems driver, coronal 3D respiratory | | triggered,coronal T2 [...] [address] | [place] | [phone] | | [facility] | | [address] | | | - LABORATORY | | [...] + + | Performed at: 01 - [facility] [address] [facility], | REFERENCE LAB | | [place], [place] [address] Lock Master: Rom Stinson MD, Phone: | [facility] | | [phone] | | + + + + + + + + | Performing | Address | City/State/Zipcode | Phone Number | | Organization | | | | + + + + + | REFERENCE LAB | [address] | [place], [place] | [phone] | | [facility] | [facility] | [address] | | + + + + + [...] [address], | REFERENCE LAB | | [place], [place] [address] Lock Master: Arturo Barriga MD, Phone: | [facility] | | [phone] | | + + + + + + + + | Performing | Address | City/State/Zipcode | Phone Number | | Organization | | | | + + + + + | REFERENCE LAB | [address] | [place], [place] | [phone] | | [facility] | [address] | [address] | | + + + + + [...] [address], | REFERENCE LAB | | [place] [id number] Lock Master: Rom Stinson MD, Phone: | [facility] | | [phone] | | + + + + + + + + | Performing | Address | City/State/Zipcode | Phone Number | | Organization | | | | + + + + + | REFERENCE LAB | [address] | [place], [place] | [phone] | | [facility] | [address] [facility] | [address] | | + + + + + [...] [address] | [place] | [phone] | | [facility] | | [address] | | | - LABORATORY | | [...] + | [facility] | [address] | [place] | [phone] | | [facility] | | [address] | | | - LABORATORY | | [...] [address] | [place] | [phone] | | [facility] | | [address] | | | - LABORATORY | | [...] [address] | [place] | [phone] | | [facility] | | [address] | | | - LABORATORY | | [...] [address] | [place] | [phone] | | [facility] | | [address] | | | - LABORATORY | | [...] ST. | [address] | [place], [place] | [phone] | | [facility] | | [address] | | | - LABORATORY | | [...] test | | | | | | ([id number]). | | | | + + + + + + + + | Specimen | + + | Blood | + + + + + | Narrative | Performed At | + + + | Performed at: 01 - [address] [address], | REFERENCE LAB | | [place], [place] [address] Lock Master: Samuel Wallace MD, Phone: | [facility] | | [phone] | | + + + + + + + + | Performing | Address | City/State/Zipcode | Phone Number | | Organization | | | | + + + + + | REFERENCE LAB | [address] | [place], [place] | [phone] | | [facility] | [address] | [address] | | + + + + + [...] [address] | [place] | [phone] | | [facility] | | [address] | | | - LABORATORY | | [...] + | [facility] | [address] | [place] | [phone] | | [facility] | | [address] | | | - LABORATORY | | [...] [address] | [place] | [phone] | | [facility] | | [address] | | | - LABORATORY | | [...] mL/min/1.73m2 | [facility] | | | GUY[place]ESE | RATE,ESTIMATED | | MEDICAL | | | | mL/min/1.98y7Yizn than | | CENTER - | | [...] [address] | [place] | [phone] | | [facility] | | [address] | | | - LABORATORY | | [...] preliminary report was provided by MD Enzo, [facility], 01/21/2018 | | | 10:53:54 PM Dictated [...] - 1.030 | [facility] | | | [place], | | | [facility] | | [...] [address] | [place] | [phone] | | [facility] | | [address] | | | - LABORATORY | | [...] [address] | [place] | [phone] | | [facility] | | [address] | | | - LABORATORY | | [...] ST. | [address] | [place], [place] | [phone] | | [facility] | | [address] | | | - LABORATORY | | [...] [address] | [place] | [phone] | | [facility] | | [address] | | | - LABORATORY | | [...] + | [facility] | [address] | [place], [place] | [phone] | | [facility] | | [address] | | | - LABORATORY | | [...] St | [place] | | | [facility] | | [address] | | | - BLOOD BANK | [...] | | | | | | [facility] | | | | | | [...] [address] | [place] | [phone] | | [facility] | | [address] | | | - LABORATORY | | [...] (H) | 70 - 109 mg/dL | [facility] | | | | | | [facility] | | | | | | MEDICAL | | | | | | CENTER - | | | | | | LABORATORY | | + + + + + + | BUN | 18 | 7 - 18 mg/dL | [facility] | | | | | | [facility] | | | | | | MEDICAL | | | | | | CENTER - | | | | | | LABORATORY | | + + + + + + | Creatinine | 1.23 | 0.60 - 1.30 | [facility] | | | | | mg/dL | [facility] | | | | | | MEDICAL | | | | | | CENTER - | | | | | | LABORATORY | | + + + + + + | eGFR if not | 60Comment: GLOMERULAR | >=60 | [facility] | | | | FILTRATION | mL/min/1.73m2 | [facility] | | | [place] | RATE,ESTIMATED | | MEDICAL | | | | mL/min/1.43y0Qouo than | | CENTER - | | [...] + | [facility] | [address] | [place] | [phone] | | [facility] | | [address] | | | - LABORATORY | | [...] | | Eosinophils | | K/uL | [facility] | | | | | | MEDICAL | | | | | | CENTER - | | | | | | LABORATORY | | + + + + + + | Absolute | 0.10 | 0.00 - 0.10 | [facility] | | | Basophils | | K/uL | [facility] | | | | | [...] [address] | [place] | [phone] | | [facility] | | [address] | | | - LABORATORY | | [...]
--- OUTSIDE RECORDS SUMMARY | ~2020-01-30 | XMS | Encounter Summary ---
Demographics + + + | Address | [address] | | | [place] [address] | + + + | Home Phone | | + + + | Preferred Language | Unknown | + + + | Marital Status | | + + + | Sikhism Affiliation | 1013 | + + + | Race | Unknown | + + + | Ethnic Group | Unknown | + + + Author + + + | Author | [facility] | | | and [place] | + + + | Organization | [facility] | | | [...] [place] | | | | | [address] | | + + + + + Care Team Providers + +------+ + | Care Chief Nurse Name | Role | Phone | [...] | | | | | | | ([facility]) | | | | | | | [...] + + | 09/06/ | Surgery | [facility] | Anival Stevenson MD | REPAIR HERNIA | | 2019 | | [facility] | [address] [place] | INCISIONAL COMPLEX | | | | OPERATING ROOM [address] | [address] [place], [place] | | | | | [place] | [address] | | | | | [place], [place] | | | | | | [address] | | | | | | [phone] | | | +--------+---------+ + + + [...] Physician Discharge Summary Patient ID: Reza Cespedes [id number] y.o. 1960 Admit date: 09/06/2019 Discharge [...] bruising may occur. It appears as a bzsmu-nma-fnki area around the incision and indic ates [...] suspect a problem. Our office number is [phone] documented in this encounter Medications at Time [...] Thomas MD - 09/12/2019 11:01 AM PST [facility] Service: General Surgery Progress Note Hospital Day: [...] Pelayo MD - 09/11/2019 10:48 AM PST [facility] Service: General Surgery Progress Note Hospital Day: [...] MD - 09/10/2019 11:17 AM PS T [facility] Service: General Surgery Progress Note Hospital Day: [...] home and was on IV ABX with [place] home infusion. I called [facility] and Pt [...] Pelayo MD - 09/09/2019 10:23 AM PST [facility] Service: General Surgery Progress Note Hospital Day: [...] s Caregiver: (P) spouse/significant other, homecare agency (specify)([place] [facility] for h ome IVAB) Functional Status: ambulatory [...] Contact Information: Name: (Tarik Araiza Phone: P) [phone] Pager: Fax: DC Needs Assessment Current Outpt/Agency/Support Groups: (P) infusion therapy, home Community Agency Name: (P) [place] Anticipated Changes Related to Illness: (P) none [...] Steps: Notes: Patient discharged on 07/29/2019 with [place] [facility] for home IVAB. CM to follow for [...] Pelayo MD - 09/08/2019 8:17 AM PST [facility] Service: General Surgery Progress Note Hospital Day: [...] Pelayo MD - 09/07/2019 12:46 PM PST [facility] Service: General Surgery Progress Note Hospital Day: [...] | | | | | performed at [facility], [address] | | | | | | [facility], | | | | | | [place] [address] | | | | + + + + + + + + | Specimen | + + | Blood | + + + + + + + | Performing | Address | City/State/Zipcode | Phone Number | | Organization | | | | + + + + + | [facility] | [address] | [place] [address] | [phone] | + + + + + CBC [...] [facility] | | | | performed at [facility], [address] | | LABORATORY | | | | [address], | | | | | | [place] [address] | | | | + + + + + + + + | Specimen | + + | Blood | + + + + + + + | Performing | Address | City/State/Zipcode | Phone Number | | Organization | | | | + + + + + | [facility] | [address] | [place] [address] | [phone] | + + + + + POC Glucose (09/10/2019 12:25 PM PST) + + + + + + | Component | Value | Ref Range | Performed | Pathologist | | | | | At | Signature | + + + + + + | Glucose, | 145 (H)Comment: Testing | 65 - 99 mg/dL | [facility] | | | POC | performed at [facility];[address] | | LABORATORY | | | | [address];[place], [place] | | | | | | [address] | | | | + + + + + + + + | Specimen | + + | | + + + + + + + | Performing | Address | City/State/Zipcode | Phone Number | | Organization | | | | + + + + + | [facility] | [address] | [place] [address] | [phone] | + + + + + CBC [...] PRERNA | | | | performed at [facility], [address] | | LABORATORY | | | | [address], | | | | | | [place] [address] | | | | + + + + + + + + | Specimen | + + | Blood | + + + + + + + | Performing | Address | City/State/Zipcode | Phone Number | | Organization | | | | + + + + + | [facility] | [address] | [place] [address] | [phone] | + + + + + Basic [...] | | | | | performed at [facility], [address] | | | | | | [address], | | | | | | [place] [address] | | | | + + + + + + + + | Specimen | + + | Blood | + + + + + + + | Performing | Address | City/State/Zipcode | Phone Number | | Organization | | | | + + + + + | [facility] | [address] | [place] [address] | [phone] | + + + + + Basic [...] | | | | | performed at [facility], [address] | | | | | | [facility], | | | | | | [place], [place] [address] | | | | + + + + + + + + | Specimen | + + | Blood | + + + + + + + | Performing | Address | City/State/Zipcode | Phone Number | | Organization | | | | + + + + + | [facility] | [address] | [place] [address] | [phone] | + + + + + CBC [...] [facility] | | | | performed at [facility], [address] | | LABORATORY | | | | [address], | | | | | | [place] [address] | | | | + + + + + + + + | Specimen | + + | Blood | + + + + + + + | Performing | Address | City/State/Zipcode | Phone Number | | Organization | | | | + + + + + | [facility] | [address] | [place] [address] | [phone] | + + + + + POC Glucose (09/06/2019 3:14 PM PST) + + + + + + | Component | Value | Ref Range | Performed | Pathologist | | | | | At | Signature | + + + + + + | Glucose, | 119 (H)Comment: Testing | 65 - 99 mg/dL | [facility] | | | POC | performed at [facility];[address] | | LABORATORY | | | | [address];[place] | | | | | | [address] | | | | + + + + + + + + | Specimen | + + | | + + + + + + + | Performing | Address | City/State/Zipcode | Phone Number | | Organization | | | | + + + + + | [facility] | [address] | [place] [address] | [phone] | + + + + + Surgical [...] | fecal material and a brock-white exudate. Film Sound Engineer sections are | | | submitted in [...] | | technical component was performed by [facility], [address] [place] [address] | | | [place] [address] (Recruitment And Outreach Assistant: Mckayla Andino MD; CLIA# | | | [id number]). Professional [facility] | | | [facility], [address], | | | [place] [address] (Recruitment And Outreach Assistant: Renaldo Love M.D.; CLIA#: | | | [id number]). Diagnostician: Arturo Foster | | | DOPathologistElectronically Signed 09/12/2019 | | | | | |PERFORMING LABORATORY: | | |The technical component was performed by [facility], [address] [place] [address] (Recruitment And Outreach Assistant: Mckayla Andino MD; CLIA# [id number]). Professional interpretation was performed by | | |[facility], [address] [address] (Recruitment And Outreach Assistant: Renaldo Love M.D.; CLIA#: [id number]). | | | | | |Diagnostician: Arturo [...]
--- OUTSIDE RECORDS SUMMARY | ~2020-01-30 | XMS | Encounter Summary ---
Demographics + + + | Address | [address] | | | [place] [address] | + + + | Home Phone [...] | Author | [facility] | | | and [place] | + + + | Organization | [facility] | | | and [place] [...] [place] | | | | | [address] | | + + + + + Care Team Providers + +------+ + | Care Spaghetti Press Helper Name | Role | Phone | [...] | | | [place] | [place] | | | | | [address] | [address] | | | | | [phone] | [phone] | | | | | | | [...] | | | | | performed at [facility] [address] | | | | | | [facility] | | | | | | [place] [address] | | | | + + + + + + | Result | 1.1 (H)Comment: Testing | U | EXTERNAL | | | | performed at [facility] [address] | | LAB | | | | [place] | | | | | | [place] [address] | | | | + + + [...]
--- OUTSIDE RECORDS SUMMARY | ~2020-01-30 | XMS | Encounter Summary ---
Demographics + + + | Address | [address] | | | [place] [address] | + + + | Home Phone | | + + + | Preferred Language | Unknown | + + + | Marital Status | | + + + | Scientologist Affiliation | 1013 | + + + | Race | Unknown | + + + | Ethnic Group | Unknown | + + + Author + + + | Author | [facility] | | | and [place] | + + + | Organization | [facility] [...] [place] | | | | | [address] | | + + + + + Care Team Providers + +------+ + | Care Railroad Signal Operator Name | Role | Phone | [...] [place] | | | | | [address] | [address] | | | | | [phone] | [phone] | | | | | | | [...] | | | | [place], [place] [address] | | | | + + + + + + | FIBROSURE | SEE BELOWComment: F2, | | EXTERNAL | | | STAGE | BRIDGING FIBROSIS, FEW | | LAB | | | | SEPTATesting performed | | | | | | at [facility] [place], [address] | | | | | [address] [place], [place], | | | | | | [place] [address] | | | | + + + + + + | Necroinflam | 0.19 (H)Comment: Testing | 0.00 - 0.17 | EXTERNAL | | | mat | performed at [facility] | | LAB | | | Activity | [place] | | | | | Score | [employer] [place], [place] [address] | | | | + + + + + + | Necroinflam | A0 TO [id number]: Testing | | EXTERNAL | | | mat | performed at [facility] | | LAB | | | Activity | [place] | | | | | Grade | [employer] [place], [place] [address] | | | | + + + + + + | Alpha | 452 (H)Comment: Testing | 110 - 276 mg/dL | EXTERNAL | | | 2-Macroglob | performed by [facility], | | LAB | | | [place], [place] | [address], | | | | | | [facility] [address] | | | | + + + + + + | Haptoglobin | 431 (H)Comment: Testing | 34 - 200 mg/dL | EXTERNAL | | | | performed by [facility], | | LAB | | | | [address] [facility], | | | | | | [facility] [address] | | | | + + + + + + | Apolipoprot | 111Comment: Testing | 110 - 180 mg/dL | EXTERNAL | | | ein A-1 | performed by [facility], | | LAB | | | | [address] [facility], | | | | | | [facility] [address] | | | | + + + + + + | Bilirubin, | 0.3Comment: Testing | 0.0 - 1.2 mg/dL | EXTERNAL | | | Total | performed by [facility], | | LAB | | | | [address] [facility], | | | | | | [facility] [address] | | | | + + + + + + | Gamma | 46Comment: Testing | 0 - 65 IU/L | EXTERNAL | | | Glutamyl | performed by [facility], | | LAB | | | [facility] | [address], | | | | | | [facility] [address] | | | | + + + + + + | ALT (SGPT) | 30Comment: Testing | 0 - 55 IU/L | EXTERNAL | | | P5P | performed by [facility], | | LAB | | | | [address], | | | | | | [facility] [address] | | | | + + + [...] | | | | [place] [address] | | | | + + + [...] | | | | | | [place] [address] | | | | + + + [...] | | | | [place] [address] | | | | + + + + + + + + | Specimen | + + | | + + + +---------+ + + | Performing | Address | City/State[facility] | Phone Number | | Organization | | | | + +---------+ + + | EXTERNAL LAB | | | | + +---------+ + + documented in this encounter Visit Diagnoses Not on filedocumented in this encounter"
--- OUTSIDE RECORDS SUMMARY | ~2020-01-30 | XMS | Encounter Summary ---
Demographics + + + | Address | [address] | | | [place] [address] | + + + | Home Phone [...] | Author | [facility] | | | and [place] | + + + | Organization | [facility] | | | and [...] [place] | | | | | [address] | | + + + + + Care Team Providers + +------+ + | Care Helminthology Teacher Name | Role | Phone | [...] [place] | | | | | [address] | [address] | | | | | [phone] | [phone] | | | | | | | [...] [place] | | | | | | [address] | | | | + + + [...]
--- OUTSIDE RECORDS SUMMARY | ~2020-01-30 | XMS | Encounter Summary ---
Demographics + + + | Address | [address] | | | [place] [address] | + + + | Home Phone | | + + + | Preferred Language | Unknown | + + + | Marital Status | | + + + | Judaism Affiliation | 1013 | + + + | Race | Unknown | + + + | Ethnic Group | Unknown | + + + Author + + + | Author | [facility] | | | and [place] | + + + | Organization | [facility] | [...] [place] | | | | | [address] | | + + + + + Care Team Providers + +------+ + | Care Fuller Brush Worker Name | Role | Phone | [...] | | | [place] | [place] | | | | | [address] | [address] | | | | | [phone] | [phone] | | | | | | | [...] EXTERNAL | | | | performed at [facility] | | LAB | | | | Health;[address] | | | | | | [place] | | | | | | [address] | | | | + + + [...]
--- OUTSIDE RECORDS SUMMARY | ~2020-01-30 | XMS | Encounter Summary ---
Demographics + + + | Address | [address] | | | [place] [address] | + + + | Home Phone [...] Author | [facility] | | | and [place] | + + + | Organization | [facility] | | | and [...] [place] | | | | | [address] | | + + + + + Care Team Providers + +------+ + | Care Information Assurance Officer Name | Role | Phone | [...] + + | 09/06/ | Anesthesia | [facility] | Mariel Mi CRNA | | | 2019 | [facility] | [address] | | | | | OPERATING RO[address] | [place] [address] | | | | | [address] | [phone] | | | | | [place], [place] | | | | | | [address] | Rom Stevenson, | | | | | [phone] | AUTOMATIC HEAD SAWYER [address] | | | | | | [place] [address] | | | | | | [phone] | | | | | | | [...] +----+---+ + + | | 0 | [place] | | | | 9 | 43-degrees [...] will talk to Dr. Stevenson to start COOKER SULFITE for better pain | | | 0 [...] 0900 | Delfina Melissa RN | Andressa Aflord RN | | Site | | | | +--------+ + + + | PICC | 08/06/19; 1236; Purple Hub; Yes; | 08/06/19 1236 by | 09/12/19 1210 by | | Single | Chlorhexidine/Isopropyl Alcohol; | Beena Duran RN | Vianney Love RN | | Lumen | Yes; Yes; All; Patient room; | | | | | Publication Director; Miriam Duran RN; | | | | [...] number | | | | | (specify) ([id number]); 4 Fr, | | | | | [...] | | Ventilation: EZ; Airway Grade: | AUTOMATIC HEAD SAWYER | | | | 2a; External Maneuvers: [...] | | | procedure documentation); Mask | AUTOMATIC HEAD SAWYER | | | | Ventilation: EZ; Airway [...] Isabel Hamilton, the patient's | | | customer care assistant and medical decision maker) Patient position: sitting [...]
--- OUTSIDE RECORDS SUMMARY | ~2020-01-30 | XMS | Encounter Summary ---
Demographics + + + | Address | [address] | | | [place] [address] | + + + | Home Phone [...] | [facility] | | | and [place] | + + + | Organization | [facility] | | [...] [place] | | | | | [address] | | + + + + + Care Team Providers + +------+ + | Care Paper Wrapping Machine Operator Name | Role | Phone [...] [place] | | | | | [address] | [address] | | | | | [phone] | [phone] | | | | | | | [...] | | | | | [place] [address] | | | | + + + [...]
--- OUTSIDE RECORDS SUMMARY | ~2020-01-30 | XMS | Encounter Summary ---
Demographics + + + | Address | [address] | | | [place] [address] | + + + | Home Phone | | + + + | Preferred Language | Unknown | + + + | Marital Status | | + + + | Samaritan Affiliation | Unknown | + + + | Race | White | + + + | Ethnic Group | Not or | + + + Author + + + | Author | [facility] | + + + | Organization | [facility] | + + + | Address | Unknown | + + + | Phone | Unavailable | + + + Support + + +---------+ + | Name | Relationship | Address | Phone | + + +---------+ + | Maria Isabel Cespedes | ECON | Unknown | | + + +---------+ + Care Team Providers + +------+ + | Care World History Teacher Name | Role | Phone | [...] | | | | | [place], | | | | | | [place] [address] | | | +--------+--------+ + + + [...]
--- OUTSIDE RECORDS SUMMARY | ~2020-01-30 | XMS | Encounter Summary ---
Demographics + + + | Address | [address] | | | [place] [address] | + + + | Home Phone | | + + + | Preferred Language | Unknown | + + + | Marital Status | | + + + | Anabaptism Affiliation | 1013 | + + + | Race | Unknown | + + + | Ethnic Group | Unknown | + + + Author + + + | Author | [facility] | | | and [place] | + + + | Organization | [facility] | | [...] [place] | | | | | [address] | | + + + + + Care Team Providers + +------+ + | Care Bottom Wheeler Name | Role | Phone | + [...] + | 11/12/ | Telephone | [facility] | Adrian Aponte MD | EGD | | 2018 | | GASTROENTEROLOGY | [address] | | | | | [address] | [place], [place] | | | | | [address] [place] [place] | [address] | | | | | [address] | [phone] | | | | | [phone] | | | +--------+ + + + [...]
--- OUTSIDE RECORDS SUMMARY | ~2020-01-30 | XMS | Encounter Summary ---
Demographics + + + | Address | [address] | | | [place] [address] | + + + | Home Phone [...] | Author | [facility] | | | and [place] | + + + | Organization | [facility] | | [...] [place] | | | | | [address] | | + + + + + Care Team Providers + +------+ + | Care Health Concierge Name | Role | Phone | + +------+ + PCP | Unavailable | + +------+ + Encounter Details +--------+ + + + + | Date | Type | Department | Care Team | Description | +--------+ + + + + | 08/28/ | Hospital | [facility] | Conversion | Pain | | 2014 | Encounter | CONVERSION [address] | Transaction, | | | | | [address] | Provider Unknown | | | | | [place], [place] | | | | | | [address] | (Fax) | | | | | [phone] | | | +--------+ + + + [...]
--- OUTSIDE RECORDS SUMMARY | ~2020-01-30 | XMS | Encounter Summary ---
Demographics + + + | Address | [address] | | | [place] [address] | + + + | Home Phone [...] Author | [facility] | | | and [place] | + + + | Organization | [facility] | | | and [...] [place] | | | | | [address] | | + + + + + Care Team Providers + +------+ + | Care Track Announcer Name | Role | Phone | + [...] [place] | | | | | | [address] | | | | | | [phone] | | | +--------+ + + + [...]
--- OUTSIDE RECORDS SUMMARY | ~2020-01-30 | XMS | Encounter Summary ---
Demographics + + + | Address | [address] | | | [place] [address] | + + + | Home Phone [...] + + + | Author | [facility] | + + + | Organization | [facility] | + + + | Address | Unknown | + + + | Phone | Unavailable | + + + Support + + +---------+ + | Name | Relationship | Address | Phone | + + +---------+ + | Maria Isabel Cespedes | ECON | Unknown | | + + +---------+ + Care Team Providers + +------+ + | Care Harness Brusher Name | Role | Phone | + [...] | | | | | [place], | | | | | | [place] [address] | | | +--------+--------+ + + + [...]
--- OUTSIDE RECORDS SUMMARY | ~2020-01-30 | XMS | Encounter Summary ---
Demographics + + + | Address | [address] | | | [place] [address] | + + + | Home Phone [...] | [facility] | | | and [place] | + + + | Organization | [facility] [...] [place] | | | | | [address] | | + + + + + Care Team Providers + +------+ + | Care Certified Personal Trainer Name | Role | Phone | [...] | | artery | RAIN [address] | [place], [place] | | | | | disease) | [place] | [address] | | | | | ([facility]) | [address] | Phone: | | | | | Procedures | Phone: | [phone] | | | | | IR Stent | [phone] | Fax: | | | | | Iliac | Fax: | [phone] | | | | | | [phone] | | +--------+--------+ + + + + [...] | | | | | | ([facility]) | | | | | | | Procedures | | | | | | | IR STENT | | | | | | | ILIAC | | | +--------+--------+ + + + + Encounter Details +--------+ + + + + | Date | Type | Department | Care Team | Description | +--------+ + + + + | 06/01/ | Hospital | [facility] | Rich [place] MD | PAD (peripheral | | 2019 - | Encounter | [facility] [place] [facility] | [address] | artery disease) | | | | CARE FLOOR [address] | [place], [place] | ([facility]) | | 06/02/ | | [address] | [address] | | | 2019 | | [place], [place] | [phone] | | | | | [address] | | | | | | [phone] | | | +--------+ + + + [...] (sutures), avoid swimming or taking a bath [id number] after the p rocedure or until the [...] or shortness of breath Date Last Reviewed: 02/06/201619991205-9942 [employer] [address] [place] [address]. All righ ts reserved. This information is [...] tomorrow AM. Significant other left VM with [employer] regarding ride in the morning. Dr. Washington notified. Telephone order for home med s gabapentin, lorazepam, robaxin, and magnesium. Shannan Chávez RN - 06/01/2019 3:43 PM PDTPer patient family pat ient arrived this morning by medical transport. Patient will not be able to discharge until later this evening, when transport is not available. Received call from [facility] [employer] that brought patient. She said they have the option of cynthia a local ambulance company. Received fax of form [phone] to be sent t o [facility]. After roberson is sent back we can forward to [employer] and they will approve or deny ride [...] the | | | | PDT | ([facility]) | results section. | + +--------+ + [...] SURGEON: | | | Rich Washington MD CONSUMER MARKETING ANALYST: None ANESTHESIA: Moderate sedation and local | [...] and | | | brought to the Registration Clerk. The patient was placed supine on the [...] wire and up sized to a 6 Croatian sheath. A | | | Omni flush [...] identified and brought | | |to the Registration Clerk. The patient was placed supine on the [...] | | |up sized to a 6 Croatian sheath. A Omni flush catheter was then [...] (H)Comment: Testing | 0.00 - 0.10 | [facility] | | | Absolute | performed at [facility] [place] [place];[address] | [address] | LABORATORY | | | | [address];[place] | | | | | | [address] | | | | + + + + + + + + | Specimen | + + | Blood | + + + + + + + | Performing | Address | City/State/Zipcode | Phone Number | | Organization | | | | + + + + + | [facility] | [address] | [place] [address] | [phone] | + + + + + Basic [...] | | | | | performed at [facility] [place] [place];[address] | | | | | | [address];[place] | | | | | | [address] | | | | + + + + + + + + | Specimen | + + | Blood | + + + + + + + | Performing | Address | City/State/Zipcode | Phone Number | | Organization | | | | + + + + + | [facility] | [address] | [place] [address] | [phone] | + + + + + documented [...]
--- OUTSIDE RECORDS SUMMARY | ~2020-01-30 | XMS | Encounter Summary ---
Demographics + + + | Address | [address] | | | [place] [address] | + + + | Home Phone [...] [place] | | | | | [address] | | + + + + + Care Team Providers + +------+ + | Care Milk Hauler Name | Role | Phone | + [...] | | | [place] | [place] | | | | | [address] | [address] | | | | | [phone] | [phone] | | | | | | | [...] [place] | | | | | | [address] | | | | + + + + + + | Red Blood | 3.42 (L)Comment: Testing | 4.20 - 5.70 | EXTERNAL | | | Cells | performed at [facility] | M/uL | LAB | | | Counted | Health;[address] | | | | | | [place] | | | | | | [address] | | | | + + + + + + | Hemoglobin | 9.6 (L)Comment: Testing | 13.2 - 17.0 | EXTERNAL | | | | performed at [facility] | g/dL | LAB | | | | Health;[address] | | | | | | [place] | | | | | | [address] | | | | + + + + + + | Hematocrit, | 30.2 (L)Comment: Testing | 39.0 - 50.0 % | EXTERNAL | | | POC | performed at [facility] | | LAB | | | | Health;[address] | | | | | | [place] | | | | | | [address] | | | | + + + + + + | MCV | 88.3Comment: Testing | 80.0 - 100.0 fl | EXTERNAL | | | | performed at [facility] | | LAB | | | | Health;[address] | | | | | | [place] | | | | | | [address] | | | | + + + + + + | MCH | 28.0Comment: Testing | 27.0 - 34.0 pg | EXTERNAL | | | | performed at [facility] | | LAB | | | | Health;[address] | | | | | | [place] | | | | | | [address] | | | | + + + + + + | MCHC | 31.6 (L)Comment: Testing | 32.0 - 35.5 | EXTERNAL | | | | performed at [facility] | g/dL | LAB | | | | Health;[address] | | | | | | [place] | | | | | | [address] | | | | + + + + + + | RDW-CV | 61.7 (H)Comment: Testing | 37 - 53 fl | EXTERNAL | | | | performed at [facility] | | LAB | | | | Health;[address] | | | | | | [place] | | | | | | [address] | | | | + + + + + + | Platelet | 415 (H)Comment: Testing | 150 - 400 K/uL | EXTERNAL | | | Count | performed at [facility] | | LAB | | | Plasma | Health;[address] | | | | | | [place] | | | | | | [address] | | | | + + + + + + | MPV | 7.4Comment: Testing | fl | EXTERNAL | | | | performed at [facility] | | LAB | | | | Health;[address] | | | | | | [place] | | | | | | [address] | | | | + + + + + + | Differentia | AUTOMATEDComment: | | EXTERNAL | | | l Type | Testing performed at | | LAB | | | | [facility];[address] | | | | | | [place] | | | | | | [address] | | | | + + + [...] EXTERNAL | | | | performed at [facility] | | LAB | | | | Health;[address] | | | | | | [place] | | | | | | [address] | | | | + + + + + + | Red Blood | 3.42 (L)Comment: Testing | 4.20 - 5.70 | EXTERNAL | | | Cells | performed at [facility] | M/uL | LAB | | | Counted | Health;[address] | | | | | | [place] | | | | | | [address] | | | | + + + + + + | Hemoglobin | 9.6 (L)Comment: Testing | 13.2 - 17.0 | EXTERNAL | | | | performed at [facility] | g/dL | LAB | | | | Health;[address] | | | | | | [place] | | | | | | [address] | | | | + + + + + + | Hematocrit, | 30.2 (L)Comment: Testing | 39.0 - 50.0 % | EXTERNAL | | | POC | performed at [facility] | | LAB | | | | Health;[address] | | | | | | [place] | | | | | | [address] | | | | + + + + + + | MCV | 88.3Comment: Testing | 80.0 - 100.0 fl | EXTERNAL | | | | performed at [facility] | | LAB | | | | Health;[address] | | | | | | [place] | | | | | | [address] | | | | + + + + + + | MCH | 28.0Comment: Testing | 27.0 - 34.0 pg | EXTERNAL | | | | performed at [facility] | | LAB | | | | Health;[address] | | | | | | [place] | | | | | | [address] | | | | + + + + + + | MCHC | 31.6 (L)Comment: Testing | 32.0 - 35.5 | EXTERNAL | | | | performed at [facility] | g/dL | LAB | | | | Health;[address] | | | | | | [place] | | | | | | [address] | | | | + + + + + + | RDW-CV | 61.7 (H)Comment: Testing | 37 - 53 fl | EXTERNAL | | | | performed at [facility] | | LAB | | | | Health;[address] | | | | | | [place] | | | | | | [address] | | | | + + + + + + | Platelet | 415 (H)Comment: Testing | 150 - 400 K/uL | EXTERNAL | | | Count | performed at [facility] | | LAB | | | Plasma | Health;[address] | | | | | | [place] | | | | | | [address] | | | | + + + + + + | MPV | 7.4Comment: Testing | fl | EXTERNAL | | | | performed at [facility] | | LAB | | | | Health;[address] | | | | | | [place] | | | | | | [address] | | | | + + + + + + | Differentia | AUTOMATEDComment: | | EXTERNAL | | | l Type | Testing performed at | | LAB | | | | [facility];[address] | | | | | | [place] | | | | | | [address] | | | | + + + [...]
--- OUTSIDE RECORDS SUMMARY | ~2020-01-30 | XMS | Encounter Summary ---
Demographics + + + | Address | [address] | | | [place] [address] | + + + | Home Phone [...] Author | [facility] | | | and [place] | + + + | Organization | [facility] | | | and [...] [place] | | | | | [address] | | + + + + + Care Team Providers + +------+ + | Care Western Tack Assembly Line Worker Name | Role | Phone | [...] 2020 | | [address] | Doping Supervisor | fever; Night sweats; | | | | [place], [place] | | Thrombocytosis | | | | [address] | | ([facility]) | | | | [phone] | | | +--------+ + + + [...] | | | Absolute | performed at [facility];[address] | [address] | LAB | | | | [place] | | [facility] | | | | [address];[place] [address] | | LABORATORY | | + + + + + + + + | Specimen | + + | Blood | + + + + + + + | Performing | Address | City/State/Zipcode | Phone Number | | Organization | | | | + + + + + | REFERENCE LAB | [address] | [place] | [phone] | | [facility] | [address] | [address] | | | LABORATORY | | | | + + + + + | REFERENCE LAB | [address] | [place] | | | [facility] | Blvd[address] | [address] | | | LABORATORY | | | [...] | | | | performed at [facility];[address] | | | | | | [address] | | | | | | [place] [address] | | | | | | | | | | + + + + + + + + | Specimen | + + | Blood | + + + + + + + | Performing | Address | City/State/Zipcode | Phone Number | | Organization | | | | + + + + + | REFERENCE LAB | [address] [place] [address] | [place], [place] | [phone] | | [facility] | Bl[address] | [address] | | | LABORATORY | | | | + + + + + | REFERENCE LAB | [address] [place] [address] | [place], [place] | | | [facility] | Blvd[address] | [address] | | | LABORATORY | | | | + + + + + documented in this encounter Visit Diagnoses + + | Diagnosis | + + | Chills without fever Chills (without fever) | + + | Night sweats Generalized hyperhidrosis | + + | Thrombocytosis (HCC) Essential thrombocythemia | + + documented in this encounter"
--- OUTSIDE RECORDS SUMMARY | ~2020-01-30 | XMS | Encounter Summary ---
Demographics + + + | Address | [address] | | | [place] [address] | + + + | Home Phone | | + + + | Preferred Language | Unknown | + + + | Marital Status | | + + + | Baptist Affiliation | 1013 | + + + | Race | Unknown | + + + | Ethnic Group | Unknown | + + + Author + + + | Author | [facility] | | | and [place] | + + + | Organization | [facility] [...] [place] | | | | | [address] | | + + + + + Care Team Providers + +------+ + | Care Stile Ripsaw Operator Name | Role | Phone | [...] [place] | | | | | [address] | [address] | | | | | [phone] | [phone] | | | | | | | [...] | | | | performed at [facility] | | LAB | | | | Health;[address] | | | | | | [place] | | | | | | [address] | | | | + + + [...]
--- OUTSIDE RECORDS SUMMARY | ~2020-01-30 | XMS | Encounter Summary ---
Demographics + + + | Address | [address] | | | [place] [address] | + + + | Home Phone | | + + + | Preferred Language | Unknown | + + + | Marital Status | | + + + | Yarsanism Affiliation | Unknown | + + + | Race | White | + + + | Ethnic Group | Not or | + + + Author + + + | Author | [facility] | + + + | Organization | [facility] | + + + | Address | Unknown | + + + | Phone | Unavailable | + + + Support + + +---------+ + | Name | Relationship | Address | Phone | + + +---------+ + | Maria Isabel Cespedes | ECON | Unknown | | + + +---------+ + Care Team Providers + +------+ + | Care Urban And Regional Planner Name | Role | Phone | + +------+ + | Allison Fairchild NP | PCP | | + +------+ + Encounter Details +--------+ + + + + | Date | Type | Department | Care Team | Description | +--------+ + + + + | 12/16/ | Documentati | Rheumatology at | Debbie Em, | | | 2019 | on | [address] | [address] | | | | | [address] | [address] | | | | | Loop Physician's | [place], [place] | | | | | [place], [facility] | [address] | | | | | [place], [place] | [phone] | | | | | [address] | | | | | | [phone] | | | +--------+ + + + [...]
--- OUTSIDE RECORDS SUMMARY | ~2020-01-30 | XMS | Encounter Summary ---
Demographics + + + | Address | [address] | | | [place] [address] | + + + | Home Phone [...] + + | Author | [facility] | | | and [place] | + + + | Organization | [facility] | | | and [...] [place] | | | | | [address] | | + + + + + Care Team Providers + +------+ + | Care Unix Analyst Name | Role | Phone | [...] [place] | | | | | | [address] | | | | | | [phone] | | | +--------+ + + + [...]
--- OUTSIDE RECORDS SUMMARY | ~2020-01-30 | XMS | Encounter Summary ---
Demographics + + + | Address | [address] | | | [place] [address] | + + + | Home Phone [...] Author | [facility] | | | and [place] | + + + | Organization | [facility] [...] [place] | | | | | [address] | | + + + + + Care Team Providers + +------+ + | Care Crane Assembler Name | Role | Phone | [...] + + | 01/26/ | Telephone | [facility] | Dc Naik MD | Appointment | | 2017 | | GASTROENTEROLOGY | [address], [place] | (Scheduled stent | | | | [address] [place] | [address] [place], [place] | pull for February 12) | | | | [address] [place], [place] | [address] | | | | | [address] | | | | | | [phone] | | | +--------+ + + + [...]
--- OUTSIDE RECORDS SUMMARY | ~2020-01-30 | XMS | Encounter Summary ---
Demographics + + + | Address | [address] | | | [place] [address] | + + + | Home Phone | | + + + | Preferred Language | Unknown | + + + | Marital Status | | + + + | Hinduism Affiliation | 1013 | + + + | Race | Unknown | + + + | Ethnic Group | Unknown | + + + Author + + + | Author | [facility] | | | and Alexana | + + + | Organization | [facility] | [...] [place] | | | | | [address] | | + + + + + Care Team Providers + +------+ + | Care Career Development Specialist Name | Role | Phone | [...] | | | pain Other | | [place], | | | | | dysphagia | | [place] [address] | | | | | Other | | Phone: | | | | | dysphagia | | [phone] | | | | | [R13.19]Unsp | | Fax: | | | | | ecified | | [phone] | | | | | abdominal | | | | | | | pain [R10.9] | | | +--------+--------+ + + + + Encounter Details +--------+ + + + + | Date | Type | Department | Care Team | Description | +--------+ + + + + | 10/23/ | Anesthesia | [facility] | Shyam Peña | | | 2015 | Event | [facility] | MD Greg [address] | | | | | [address] | [address] [place] | | | | | [place] | [place] [address] | | | | | [address] | [phone] | | | | | [phone] | | | +--------+ + + + + Anesthesia Record + + + + + | Procedure Name | Responsible | Anesthesia Start | Anesthesia Stop Time | | | Anesthesiologist | Time | | + + + + + | EGD (N/A Mouth) | Shyam Peña, | 10/23/15 0755 | 10/23/15 0817 | | | MD | | | + + + + + +----+---+ + + | Da | T | Event | Comment | | te | i | | | | | m | | | | | e | | | +----+---+ + + | 02 | 0 | | | | /1 | 7 | | | | 6/ | 5 | | | | 20 | 1 | | | | 16 | | | | +----+---+ + + | | 0 | An Checkout | Pre-use anesthesia machine/equipment checkout. | | | 7 | | | | | 5 | | | | | 1 | | | +----+---+ + + | | 0 | An Start | Reassessment prior to anesthesia induction/procedure. | | | 7 | | | | | 5 | | | | | 5 | | | +----+---+ + + | | 0 | Beta | The patient is not on a beta-rolanda at home. | | | 7 | Rolanda | | | | 5 | Declined | | | | 5 | | | +----+---+ + + | | 0 | AN | Per surgeon request | | | 7 | Antibiotic | | | | 5 | declined | | | | 9 | | | +----+---+ + + | | 0 | An | | | | 8 | Induction | | | | 0 | | | | | 0 | | | +----+---+ + + | | 0 | Breathing | | | | 8 | Spontaneous | | | | 0 | ly | | | | 1 | | | +----+---+ + + | | 0 | an stop | | | | 8 | data | | | | 1 | | | | | 2 | | | +----+---+ + + | | 0 | An Stop | Patient handed off to recovery nurse. | | | 1 | | | | | 7 | | | +----+---+ + + +------+ | Meds | +------+ + + + | Name | Total | + + + | propofol | 150 mg | + + + | propofol | 71.78 mg | + + + | lidocaine 2% | 100 mg | + + + | lactated ringers (LR) infusion | 100 mL | + + + + + | Name | + + | O2 Flow Rate (L/Min) | + + + + | No blood administrations on file. | + + +--------+ + + + | Type | Details | Placement | Removal | +--------+ + + + | Periph | 10/23/15; 733; [id number] | 10/23/15733 by | 10/23/15909 by | | caitlin | catheter system; 20 gauge, 1 09/10 | Melissa Bush RN | Abi E | | IV | in length; distraction, topical | | ELLIE Jameson | | | anesthetic spray applied, | | | | | tolerated well; no longer | | | | | indicated, catheter/device | | | | | intact; 10/23/15; 0910 | | | +--------+ + + + [...] lidocaine (PF) 2% injection | Given | 10/23/19 | 100 mg | | | | Intravenous, PRN, Starting Tue | | 16 8:00 | | | | | 10/23/15 at 0800, Anesthesia | | AM PST | | | | | Intra-op | | | | | | + +--------+ +--------+------+------+ +---+---+ | | | +---+---+ + +-------+ +-------+---+---+ | propofol (DIPRIVAN) injection | Given | 10/23/19 | 50 mg | | | | PRN, Starting 10/23/15 at | | 16 8:02 | | | | | 0800, Anesthesia Intra-op | | AM PST | | | | + +-------+ +-------+---+---+ +-------+ +--------+---+---+ | Given | 10/23/19 | 100 mg | | | | | 16 8:00 | | | | | | AM PST | | | | +-------+ +--------+---+---+ +---+---+ | | | +---+---+ + +---------+ + +-------+---+ | propofol (DIPRIVAN) injection | New Bag | 10/23/19 | 150 | 86.1 | | | CONTINUOUS PRN, Starting Tue | | 16 8:04 | mcg/kg/m | mL/hr | | | 10/23/15 at 0804, Anesthesia | | AM PST | in | | | | Intra-op | | | | | | + +---------+ + +-------+---+ +---+---+ | | | +---+---+ documented in this encounter"
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
--- OUTSIDE RECORDS SUMMARY | ~2020-01-30 | XMS | Encounter Summary ---
Demographics + + + | Address | [address] | | | [place] [address] | + + + | Home Phone [...] + + | Author | [facility] | | | and Alexana | + + + | Organization | [facility] | | | and Alexana [...] [place] | | | | | [address] | | + + + + + Care Team Providers + +------+ + | Care Belt Loop Machine Operator Name | Role | Phone [...] + + | 08/16/ | Telephone | [facility] | Marshall Ragland, | Follow-up(Procedure) | | 2019 | | INTERVENTIONAL | RN | | | | | RADIOLOGY [address] | | | | | | [address] | | | | | | [facility] [place] | | | | | | [address] | | | | | | [phone] | | | +--------+ + + + [...]
--- OUTSIDE RECORDS SUMMARY | ~2020-01-30 | XMS | Encounter Summary ---
Demographics + + + | Address | [address] | | | [place] [address] | + + + | Home Phone [...] | [facility] | | | and Alexana | + + + | Organization | [facility] | [...] [place] | | | | | [address] | | + + + + + Care Team Providers + +------+ + | Care Air Analyst Name | Role | Phone | [...] | | | | | | | VA | | | | | | | ESOPHAGOGAST | | | | | | | RODUODENOSCO | | | | | | | PY TRANSORAL | | | | | | | DIAGNOSTIC | | | | | | | VA EGD | | | | | | | TRANSORAL | | | | | | | BIOPSY | | | | | | | SINGLE/MULTI | | | | | | | PLE VA | | | | | | | [...] + + | 11/18/ | Hospital | [facility] | Adrian Aponte MD | Nausea; Epigastric | | 2018 | Encounter | [facility] | [address] | pain; Early satiety; | | | | [address] | [place] | Abdominal pain, | | | | [place], [place] | [address] | generalized | | | | [address] | [phone] | | | | | [phone] | | | +--------+ + + + [...] 11/18/2017 | [facility] | | 8:29 AMMRN: [id number] #: [id number] of : | | | 1960Admit Type: AmbulatoryAge: 56[facility]: [facility] 01Gender: MaleNote | | | Status: FinalizedAttending MD: Adrian Aponte [facility]: | | | Upper GI endoscopyIndications: Epigastric abdominal | | | pain, Nausea with vomitingProviders: Adrian Aponte MD, | | | Caroline Beltran RN, Edyta Kilpatrick | | | Cabrera, Band Director, CARMELLA MELO, | | | DO (Anesthesia [...] | | | the anesthesiologist and the converting technician in the pre-procedure | | | [...] | | 8:39:59 AMScope Out: 8:48:59 AM [facility] | | | [place], [address] [place] [address] | | | - Await pathology results. [...] |Scope Out: 8:48:59 AM | | | [facility], [address] [place] [address] | | | [address] | | + + -+ + +---------+ [...] for increased | | | epithelial eosinophils. JVR:[facility]:C2NR GROSS DESCRIPTION: | | | Received [...] | | | preparation were performed by [email or web address], [address] | | | [address], [place] [address] (Pharmacist In Charge: Alex Hathaway M.D. | | | CLIA#: [id number]). Professional interpretation was performed by | | | [email or web address], [facility], [address] | [address] [place] [address] (Pharmacist In Charge: Alex Hathaway, | | | Trevin; CLIA#: [id number]). Diagnostician: Alex Hathaway MD | | | [...]
--- OUTSIDE RECORDS SUMMARY | ~2020-01-30 | XMS | Encounter Summary ---
Demographics + + + | Address | [address] | | | [place] [address] | + + + | Home Phone | | + + + | Preferred Language | Unknown | + + + | Marital Status | | + + + | Druze Affiliation | 1013 | + + + | Race | Unknown | + + + | Ethnic Group | Unknown | + + + Author + + + | Author | [facility] | | | and [place]ana | + + + | Organization | [facility] | | | and [...] [place] | | | | | [address] | | + + + + + Care Team Providers + +------+ + | Care Tile Helper Name | Role | Phone | [...] | | | | | [address] | [address] [facility] | | | | | [place] | [place] [address] | | | | | [address] | [phone] | | | | | [phone] | | | | | | | Luis Spann | | | | | | MD Mathew [address] | | | | | | [address] [place] | | | | | | [place] [address] | | | | | | [phone] | | | | | | | [...] [address] | | eral | Antecubital; [id number] | Dennis Hills RN | Heather Chua [...]
--- OUTSIDE RECORDS SUMMARY | ~2020-01-30 | XMS | Encounter Summary ---
Demographics + + + | Address | [address] | | | [place] [address] | + + + | Home Phone [...] Author | [facility] | | | and [place]ana | + + + | Organization | [facility] [...] [place] | | | | | [address] | | + + + + + Care Team Providers + +------+ + | Care Nuclear Medicine Medical Director Name | Role | Phone | [...] [place] | | | | | [address] | [address] | | | | | [phone] | [phone] | | | | | | | [...] | | | | | | at [facility];[address] | | | | | | [facility];[place], [place] | | | | | | [address] | | | | + + + [...]
--- OUTSIDE RECORDS SUMMARY | ~2020-01-30 | XMS | Encounter Summary ---
Demographics + + + | Address | [address] | | | [place] [address] | + + + | Home Phone | | + + + | Preferred Language | Unknown | + + + | Marital Status | | + + + | Anglican Affiliation | Unknown | + + + | Race | White | + + + | Ethnic Group | Not or | + + + Author + + + | Author | [facility] | + + + | Organization | [facility] | + + + | Address | Unknown | + + + | Phone | Unavailable | + + + Support + + +---------+ + | Name | Relationship | Address | Phone | + + +---------+ + | Maria Isabel Cespedes | ECON | Unknown | | + + +---------+ + Care Team Providers + +------+ + | Care Link Wire Fabric Machine Tender Name | Role | Phone [...] | | | | | | | [place], [place] | | | | | | | [address] | | | | | | | Phone: | | | | | | | [phone] | | | | | | | Fax: | | | | | | | [phone] | +--------+--------+ + + + + Encounter Details +--------+---------+ + + + | Date | Type | Department | Care Team | Description | +--------+---------+ + + + | 04/21/ | Office | [facility] | Jaspal Stevenson, | Allergic rhinitis, | | 2012 | Visit | Center at [facility] [address] | [address] | cause unspecified | | | | [address] | [place], [place] | (Primary Dx); | | | | Mailcode: [id number] | [address] | Deviated nasal | | | | [place] [facility] | [phone] | septum; Hypertrophy | | | | and Healing, | | of nasal turbinates | | | | Building 1, 5th | | | | | | Floor [place], [place] | | | | | | [address] | | | | | | [phone] | | | +--------+---------+ + + + [...] Ruiz. Jaspal Stevenson M.D., M.P.H., F.A.C.S. Director, [facility] Professor and Chief, Rhinology and Sinus Surgery Department of Otolaryngology/Head and Neck Surgery Ninoska medina PA -C - 04/21/2013 11:52 AM PDT I, NINOSKA OTIS, PA-C, am functioning as a scribe for Dr. Stevenson. [facility] HPI: Reza Cespedes is a 52 y.o. male who presents to the [facility] in [facility] for Septal deviation and Turbinate hypertrophy. Current [...] | + +--------+ + + + | [place] NASAL | Routin | 04/22/2013 | Allergic [...]
--- OUTSIDE RECORDS SUMMARY | ~2020-01-30 | XMS | Encounter Summary ---
Demographics + + + | Address | [address] | | | [place] [address] | + + + | Home Phone [...] | Author | [facility] | | | and [place]ana | + + + | Organization | [facility] | | | and [place] | + + + | Address | Unknown | + + + | Phone | Unavailable | + + + Support + + + + + | Name | Relationship | Address | Phone | + + + + + | Teodora Cespdees | ECON | [address] | | | | | [place] | | | | | [address] | | + + + + + Care Team Providers + +------+ + | Care Profile Mill Operator Tape Control Name | Role | Phone | + [...] | | | [place] | [place] | | | | | [address] | [address] | | | | | [phone] | [phone] | | | | | | | [...] EXTERNAL | | | | performed at [facility];[address] | | LAB | | | | [place] | | | | | | [place] [address] | | | | + + + [...]
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
--- OUTSIDE RECORDS SUMMARY | ~2020-01-30 | XMS | Encounter Summary ---
Demographics + + + | Address | [address] | | | [place] [address] | + + + | Home Phone [...] Team Providers + +------+ + | Care Candlemaker Name | Role | Phone | + [...]
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
--- OUTSIDE RECORDS SUMMARY | ~2020-01-30 | XMS | Encounter Summary ---
Demographics + + + | Address | [address] | | | [place] [address] | + + + | Home Phone [...] | Author | [facility] | | | and [place] | + + + | Organization | [facility] | [...] [place] | | | | | [address] | | + + + + + Care Team Providers + +------+ + | Care Community Planner Name | Role | Phone | [...] | | | | [address] [facility] | [place], [place] | | | | | [address] [place] | [address] | | | | | [address] | [phone] | | | | | [phone] | | | +--------+--------+ + + + [...]
--- OUTSIDE RECORDS SUMMARY | ~2020-01-30 | XMS | Encounter Summary ---
Demographics + + + | Address | [address] | | | [place] [address] | + + + | Home Phone [...] + | Author | [facility] | | | and [place] | + + + | Organization | [facility] | [...] [place] | | | | | [address] | | + + + + + Care Team Providers + +------+ + | Care Cloth Measurer Name | Role | Phone | + [...] | | abdominal abscess on 07/30/19 at [facility]. Pt had couple abdominal | | | hernia repairs done by Dr. Mc MD [id number]. 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 Pt had couple abdominal hernia repairs d one by Dr. Mc MD [id number]. Pt stated he is here today for [...] abdomen and pelvis. [facility] liver [...] bile duct which I suspect was to marcelal at a bile leak. In March 2014 [...] duct stent by Dr. LIANNA Joseph in [place]. Prior to this stents had to be replaced or revised due to obstruction. As again I am assuming this was placed to deal with a persistent bile leak from his liver surgery. 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 This was evaluated at [facility] but no intervention was performed. It is stenotic but not occluded. What was found was an occlusion of the rig ht iliac and this was treated by Dr. Washington here at [facility] on June 01. Last month the [...] Procedure: ERCP; Surgeon: Dc Naik MD; Location: [facility] MEDICAL PROCEDURE UNIT ERCP N/A 02/12/2018 Procedure: ERCP; Surgeon: Dc Naik MD; Location: [facility] MEDICAL PROCEDURE UNIT FRACTURE SURGERY 2011 skull/facial HARDWARE REMOVAL Right Hardware placement and removal thumb HERNIA REPAIR pt has 2 hernia repairs and 3rd revision on 12-18-14 hip screw removed Right 2013 Nasal reconstruction 1977 right hip/pelvis surgery 2012 SLAP 2011 UPPER GASTROINTESTINAL ENDOSCOPY UPPER GASTROINTESTINAL ENDOSCOPY N/A 10/23/2015 Procedure: EGD; Surgeon: Adrian Aponte MD; Location: [facility] MEDICAL PROCEDURE UNIT UPPER GASTROINTESTINAL ENDOSCOPY N/A 11/18/2017 Procedure: EGD; Surgeon: Adrian Aponte MD; Location: [facility] MEDICAL PROCEDURE UNIT XR LUMBAR SPINE [...] | | | | | performed at [facility];[address] | | | | | | [facility] | | | | | | [facility];[place] [address] | | | | | | | | | | + + + + + + + + | Specimen | + + | Blood | + + + + + + + | Performing | Address | City/State/Zipcode | Phone Number | | Organization | | | | + + + + + | REFERENCE LAB | [address] | [place] | [phone] | | [facility] | [address] | [address] | | | LABORATORY | | | | + + + + + | REFERENCE LAB | [address] | [place] | | | [facility] | [address] | [address] | | | LABORATORY | | | [...]
--- OUTSIDE RECORDS SUMMARY | ~2020-01-30 | XMS | Encounter Summary ---
Demographics + + + | Address | [address] | | | [place] [address] | + + + | Home Phone [...] Author | [facility] | | | and [place] | + + + | Organization | [facility] [...] [place] | | | | | [address] | | + + + + + Care Team Providers + +------+ + | Care Precast Molder Name | Role | Phone | + [...] | [address] | [place], [place] | Dysphagia | | | | [address] [place], [place] | [address] | | | | | [address] | [phone] | | | | | [phone] | | | +--------+ + + + [...]
--- OUTSIDE RECORDS SUMMARY | ~2020-01-30 | XMS | Encounter Summary ---
Demographics + + + | Address | [address] | | | [place] [address] | + + + | Home Phone [...] Author | [facility] | | | and [place] | + + + | Organization | [facility] | | | [...] [place] | | | | | [address] | | + + + + + Care Team Providers + +------+ + | Care Visual Effects Artist Name | Role | Phone | [...] + + | 09/21/ | Office | [facility] | Anival Stevenson MD | Chills (without | | 2020 | Visit | GENERAL SURGERY [address] | [address] | fever) (Primary Dx); | | | | [address] | [address] [place], [place] | Erythema; Surgical | | | | [place], [place] | [address] | follow-up care | | | | [address] | | | | | | [phone] | | | +--------+---------+ + + + [...] REFERENCE | | | | performed at [facility];[address] | | LAB | | | | [address] | | [facility] | | | | [address];[place] [address] | | LABORATORY | | + + + + + + + + | Specimen | + + | Blood | + + + + + + + | Performing | Address | City/State/Zipcode | Phone Number | | Organization | | | | + + + + + | REFERENCE LAB | [address] | [place] | [phone] | | [facility] | Blvd. | [address] | | | LABORATORY | | | | + + + + + | REFERENCE LAB | [address] | [place] | | | [facility] | Blvd. | [address] | | | LABORATORY | | | [...] - 1.030 | REFERENCE | | | [place], | | | LAB | | | [...] + | REFERENCE LAB | [address] [facility] | [place] | [phone] | | [facility] | Blvd. | [address] | | | LABORATORY | | | | + + + + + | REFERENCE LAB | [address] [place] [address] | [place] | | | [facility] | Blvd. | [address] | | | LABORATORY | | | [...]
--- OUTSIDE RECORDS SUMMARY | ~2020-01-30 | XMS | Encounter Summary ---
Demographics + + + | Address | [address] | | | [place] [address] | + + + | Home Phone [...] Author | [facility] | | | and [place] | + + + | Organization | [facility] [...] [place] | | | | | [address] | | + + + + + Care Team Providers + +------+ + | Care Moving Picture Operator Name | Role | Phone | + +------+ + PCP | Unavailable | + +------+ + Encounter Details +--------+ + + + + | Date | Type | Department | Care Team | Description | +--------+ + + + + | 07/03/ | Hospital | [facility] | Bertha Bentley MD | Recurrent incisional | | 2013 - | Encounter | [facility] [address] | [address] | hernia with | | | | [address] | [address] [place], [place] | complication | | 07/06/ | | [place], [place] | [address] | | | 2013 | | [address] | | | | | | [phone] | | | +--------+ + + + [...] Date of Service: 07/06/14 1211 Status: Signed Chiropractic Physician: Bertha Bentley MD (Physician) Located Within [facility] Service: General Surgery Discharge Summary Date of [...] - INCISIONAL; Surgeon: Bertha Bentley MD; Location: [facility] MAIN OR; Service: General; Laterality: N/A; Incisional hernia repair N/A 07/03/2014 Procedure: HERNIA REPAIR - INCISIONAL - COMPLEX; Surgeon: Bertha Bentley MD; Location: [facility]; Service: General; Laterality: N/A; [...] 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 You may get the following medications from [...] Date of Service: 07/06/14 1448 Status: Signed Chiropractic Physician: Dionne Johnson RN (Registered Nurse) Discharge instructions [...] Date of Service: 07/05/14 1140 Status: Signed Chiropractic Physician: Bertha Bentley MD (Physician) Located Within [facility] Service: General Surgery Progress Note POD: 2 [...] Johnson RN at 07/05/14 08 Author: Dionne Jonhson RN Service: (none) Author Type: Registered Nurse Filed: 07/05/1418 Date of Service: 07/05/14815 Status: Signed Chiropractic Physician: Dionne Johnson RN (Registered Nurse) Patient reported [...] Date of Service: 07/04/14 1401 Status: Addendum Chiropractic Physician: Urvashi Quesada RN (Registered Nurse) Related Notes: Original Note by Urvashi Quesada RN (Registered Nurse) filed at 07/04/14 140 1 Drug discount card given to patient. Coupons from [email or web address] given to patient. onver day Transaction, Provider Unknown - 07/04/2014 1:32 PM PDT Case Management by Urvashi Quesada RN at 07/04/14 1332 Author: Urvashi Quesada RN Service: (none) Author Type: Registered Nurse Filed: 07/04/14 1401 Date of Service: 07/04/14 1332 Status: Addendum Chiropractic Physician: Urvashi Quesada RN (Registered Nurse) Related Notes: [...] Discharge No Mental Status Oriented Power of Non Destructive Testing Engineer Yes Power of Non Destructive Testing Engineer Name Maria Isabel Power of Non Destructive Testing Engineer Anticipated Discharge Plan Post Acute Care Needs [...] 07/04/14900 Date of Service: 07/04/14899 Status: Signed Chiropractic Physician: Bertha Bentley MD (Physician) Located Within [facility] Service: General Surgery Progress Note POD: 1 [...] 07/03/141557 Date of Service: 07/03/141557 Status: Signed Chiropractic Physician: Keyur Ghotra RPH (Pharmacist) Pharmacy will renal [...] | | | | | [place] [address] | | | | + + + + + + | Red Blood | 3.92 (L)Comment: Testing | 4.20 - 5.70 | EXTERNAL | | | Cells | performed at [facility], [address] | M/uL | LAB | | | Counted | [address], | | | | | | [place] [address] | | | | + + + + + + | Hemoglobin | 11.9 (L)Comment: Testing | 13.2 - 17.0 | EXTERNAL | | | | performed at [facility], [address] | g/dL | LAB | | | | [address], | | | | | | [place] [address] | | | | + + + + + + | Hematocrit, | 36.0 (L)Comment: Testing | 39.0 - 50.0 % | EXTERNAL | | | POC | performed at [facility], [address] | | LAB | | | | [address], | | | | | | [place] [address] | | | | + + + + + + | MCV | 91.8Comment: Testing | 80.0 - 100.0 fl | EXTERNAL | | | | performed at [facility], [address] | | LAB | | | | [place], | | | | | | [place] [address] | | | | + + + + + + | MCH | 30.2Comment: Testing | 27.0 - 34.0 pg | EXTERNAL | | | | performed at [facility], [address] | | LAB | | | | [address], | | | | | | [place] [address] | | | | + + + + + + | MCHC | 32.9Comment: Testing | 32.0 - 35.5 | EXTERNAL | | | | performed at [facility], [address] | g/dL | LAB | | | | [address], | | | | | | [place] [address] | | | | + + + + + + | RDW-CV | 47.7Comment: Testing | 37 - 53 fl | EXTERNAL | | | | performed at [facility], [address] | | LAB | | | | [address], | | | | | | [place] [address] | | | | + + + + + + | Platelet | 267Comment: Testing | 150 - 400 K/uL | EXTERNAL | | | Count | performed at [facility], [address] | | LAB | | | Plasma | [address], | | | | | | [place] [address] | | | | + + + + + + | MPV | 8.7Comment: Testing | fl | EXTERNAL | | | | performed at [facility], [address] | | LAB | | | | [address], | | | | | | [place] [address] | | | | + + + + + + | Differentia | AUTOMATEDComment: | | EXTERNAL | | | l Type | Testing performed at | | LAB | | | | [facility], [address] | | | | | | [place] | | | | | | [address] | | | | + + + + + + | % Segmented | 76.9Comment: Testing | % | EXTERNAL | | | | performed at [facility], [address] | | LAB | | | Neutrophils | [address], | | | | | | [place] [address] | | | | + + + + + + | % | 14.3Comment: Testing | % | EXTERNAL | | | Lymphocytes | performed at [facility], [address] | | LAB | | | | [address], | | | | | | [place] [address] | | | | + + + + + + | % Monocytes | 7.9Comment: Testing | % | EXTERNAL | | | | performed at [facility], [address] | | LAB | | | | [address], | | | | | | [place] [address] | | | | + + + + + + | % | 0.0Comment: Testing | % | EXTERNAL | | | Eosinophils | performed at [facility], [address] | | LAB | | | | [address], | | | | | | [place] [address] | | | | + + + + + + | % Basophils | 0.9Comment: Testing | % | EXTERNAL | | | | performed at [facility], [address] | | LAB | | | | [address], | | | | | | [place] [address] | | | | + + + + + + | Absolute | 11.5 (H)Comment: Testing | 1.9 - 7.4 K/uL | EXTERNAL | | | Segmented | performed at [facility], [address] | | LAB | | | Neutrophils | [address], | | | | | | [place] [address] | | | | + + + + + + | Absolute | 2.1Comment: Testing | 1.0 - 3.9 K/uL | EXTERNAL | | | Lymphocytes | performed at [facility], [address] | | LAB | | | | [address], | | | | | | [place] [address] | | | | + + + + + + | Absolute | 1.2 (H)Comment: Testing | 0 - 0.8 K/uL | EXTERNAL | | | Monocytes | performed at [facility], [address] | | LAB | | | | [address], | | | | | | [place] [address] | | | | + + + + + + | Absolute | 0.0Comment: Testing | 0 - 0.5 K/uL | EXTERNAL | | | Eosinophils | performed at [facility], [address] | | LAB | | | [address], | | | | | | [place] [address] | | | | + + + + + + | Absolute | 0.1Comment: Testing | 0 - 0.1 K/uL | EXTERNAL | | | Basophils | performed at [facility], [address] | | LAB | | | | [address], | | | | | | [place] [address] | | | | + + + [...] | | | | | [place] [address] | | | | + + + + + + | K | 4.3Comment: Testing | 3.5 - 4.9 | EXTERNAL | | | | performed at [facility], [address] | mmol/L | LAB | | | | [address], | | | | | | [place] [address] | | | | + + + + + + | Cl | 104Comment: Testing | 99 - 109 mmol/L | EXTERNAL | | | | performed at [facility], [address] | | LAB | | | | [address], | | | | | | [place] [address] | | | | + + + + + + | CO2 | 27Comment: Testing | 23 - 32 mmol/L | EXTERNAL | | | | performed at [facility], [address] | | LAB | | | | [address], | | | | | | [place] [address] | | | | + + + + + + | Anion Gap | 9Comment: Testing | 5 - 20 mmol/L | EXTERNAL | | | | performed at [facility], [address] | | LAB | | | | [address], | | | | | | [place] [address] | | | | + + + + + + | Glucose, | 131 (H)Comment: Testing | 65 - 99 mg/dL | EXTERNAL | | | Fasting | performed at [facility], [address] | | LAB | | | | [address], | | | | | | [place] [address] | | | | + + + + + + | BUN | 19Comment: Testing | 8 - 25 mg/dL | EXTERNAL | | | | performed at [facility], [address] | | LAB | | | | [address], | | | | | | [place] [address] | | | | + + + + + + | Creatinine | 0.74Comment: Testing | 0.70 - 1.30 | EXTERNAL | | | | performed at [facility], [address] | mg/dL | LAB | | | | [address], | | | | | | [place] [address] | | | | + + + + + + | BUN/Creatin | 26Comment: Testing | | EXTERNAL | | | ine Ratio | performed at [facility], [address] | | LAB | | | | [address], | | | | | | [place] [address] | | | | + + + + + + | Calcium | 8.6Comment: Testing | 8.5 - 10.2 | EXTERNAL | | | | performed at [facility], [address] | mg/dL | LAB | | | | [address], | | | | | | [place] [address] | | | | + + + + + + | Protein, | 5.6 (L)Comment: Testing | 6.3 - 8.2 g/dL | EXTERNAL | | | Total | performed at [facility], [address] | | LAB | | | | [address], | | | | | | [place] [address] | | | | + + + + + + | Albumin | 3.2 (L)Comment: Testing | 3.6 - 5.0 g/dL | EXTERNAL | | | | performed at [facility], [address] | | LAB | | | | [address], | | | | | | [place] [address] | | | | + + + + + + | Globulin | 2.4Comment: Testing | 1.3 - 4.9 g/dL | EXTERNAL | | | | performed at [facility], [address] | | LAB | | | | [address], | | | | | | [place] [address] | | | | + + + + + + | A/G Ratio | 1.3Comment: Testing | 1.0 - 2.4 | EXTERNAL | | | | performed at [facility], [address] | | LAB | | | | [address], | | | | | | [place] [address] | | | | + + + + + + | Bilirubin | 0.6Comment: Testing | 0.1 - 1.5 mg/dL | EXTERNAL | | | Total | performed at [facility], [address] | | LAB | | | | [address], | | | | | | [place] [address] | | | | + + + + + + | ALP, | 74Comment: Testing | 35 - 115 U/L | EXTERNAL | | | External | performed at [facility], [address] | | LAB | | | | [address], | | | | | | [place] [address] | | | | + + + + + + | AST | 38Comment: Testing | 10 - 45 U/L | EXTERNAL | | | | performed at [facility], [address] | | LAB | | | | [address], | | | | | | [place] [address] | | | | + + + + + + | ALT | 28Comment: Testing | 10 - 65 U/L | EXTERNAL | | | | performed at [facility], [address] | | LAB | | | | [address], | | | | | | [place] [address] | | | | + + + [...] [place], | | | | | | [place] [address] | | | | + + + [...] areas of purple-white calcification. | | | Photography Manager sections are submitted in cassette (A1). FM | | | MICROSCOPIC EXAMINATION: Histologic sections of all submitted blocks | | | are examined by light microscopy. These findings, together with the | | | gross examination, support the pathologic diagnosis. PERFORMING | | | LABORATORY: Professional interpretation and technical preparation was | | | performed by [facility], [facility], [facility] | | | [place] [address] (Clerk To Justice: Renaldo Justin | Margoth Love M.D.; [place]#: [id number]). Diagnostician: Renaldo Love | | | Pathologist [...]
--- OUTSIDE RECORDS SUMMARY | ~2020-01-30 | XMS | Encounter Summary ---
Demographics + + + | Address | [address] | | | [place] [address] | + + + | Home Phone [...] | Author | [facility] | | | and [place] | + + + | Organization | [facility] | | | and [place] [...] [place] | | | | | [address] | | + + + + + Care Team Providers + +------+ + | Care Vp Emerging Media Name | Role | Phone | + [...] | | | | | | | OR | | | | | | | ANESTHESIA | | | | | | | UPPER GI | | | | | | | ENDOSCOPIC | | | | | | | PX ERCP OR | | | | | | [...] + + | 02/12/ | Hospital | [facility] | Dc Naik MD | Obstruction of | | 2018 | Encounter | MED CTR MP INTRA OP | [address], [place] | biliary stent, | | | | [address] | [address] [place], [place] | subsequent encounter | | | | [place], [place] | [address] | (Primary Dx) | | | | [address] | | | | | | [phone] | | | +--------+ + + + [...] + documented in this encounter Discharge Instructions Shayna Schulz, ELLIE - 02/12/2018 Recovery After Procedural Sedation [...] You can't be awakened Date Last Reviewed: 06/24/201619994965-2320 [employer]. [address] [place] [address]. All righ ts reserved. This information is [...] 02/12/2018 | [employer]OVATION | | 11:06 AMMRN: [id number] #: [id number] of : | | | 1960Admit Type: AmbulatoryAge: 57[facility] 01Gender: MaleNote | | | Status: FinalizedAttending MD: Dc Naik [facility]: | | | ERCPIndications: Biliary stent removalProviders: [...] | | | the anesthesiologist and the operator technician in the endoscopy suite. | | [...] Scope In: 11:27:31 AMScope Out: 11:31:38 AM [facility] | | | [facility], [address] [place] [address] | | | [phone] | | | - Discharge patient to [...] |Scope Out: 11:31:38 AM | | | [facility], [address] [place] [address] | | | [address] | | + + -+ + +---------+ + + | Performing | Address | City/State/Zipcode | Phone Number | | Organization | | | | + +---------+ + + | [facility] | | | | + +---------+ + + documented in this encounter Visit Diagnoses + + | Diagnosis | + + | Obstruction of biliary stent, subsequent encounter - Primary | + + documented in this encounter [...] Shortness of Breath, Starting | | | Thu02/12/18 at 1143, For 1 dose, | | [...]
--- OUTSIDE RECORDS SUMMARY | ~2020-01-30 | XMS | Encounter Summary ---
Demographics + + + | Address | [address] | | | [place] [address] | + + + | Home Phone [...] Author | [facility] | | | and [place] | + + + | Organization | [facility] | | | and [place] [...] [place] | | | | | [address] | | + + + + + Care Team Providers + +------+ + | Care Bleacher Lard Name | Role | Phone | + +------+ + | Allison Fairchild NP | PCP | | + +------+ + Encounter Details +--------+ + + + + | Date | Type | Department | Care Team | Description | +--------+ + + + + | 04/26/ | Orders Only | [facility] | Rich [place] MD | 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
--- OUTSIDE RECORDS SUMMARY | ~2020-01-30 | XMS | Encounter Summary ---
Demographics + + + | Address | [address] | | | [place] [address] | + + + | Home Phone | | + + + | Preferred Language | Unknown | + + + | Marital Status | | + + + | Zoroastrian Affiliation | Unknown | + + + [...] Team Providers + +------+ + | Care Concrete Mixer Loader Truck Mounted Name | Role | Phone | + [...]
--- OUTSIDE RECORDS SUMMARY | ~2020-01-30 | XMS | Encounter Summary ---
Demographics + + + | Address | [address] | | | [place] [address] | + + + | Home Phone [...] | [facility] | | | and [place] | + + + | Organization | [facility] | | | and [...] [place] | | | | | [address] | | + + + + + Care Team Providers + +------+ + | Care Tandem Mill Roller Name | Role | Phone | + [...] [place] | | | | | [address] | [address] | | | | | [phone] | [phone] | | | | | | | [...] EXTERNAL | | | | performed at [facility];[address] | uIU/mL | LAB | | | | [address] | | | | | | [place] [address] | | | | + + + [...]
--- OUTSIDE RECORDS SUMMARY | ~2020-01-30 | XMS | Encounter Summary ---
Demographics + + + | Address | [address] | | | [place] [address] | + + + | Home Phone [...] | [facility] | | | and [place] | + + + | Organization | [facility] | | [...] [place] | | | | | [address] | | + + + + + Care Team Providers + +------+ + | Care Hospital Nurse Name | Role | Phone | + +------+ + | Allison Fairchild NP | PCP | | + +------+ + Encounter Details +--------+ + + + + | Date | Type | Department | Care Team | Description | +--------+ + + + + | 12/10/ | Hospital | [facility] | Conversion | Closed compression | | 2017 | Encounter | [facility] MRI | Transaction, | fracture of fourth | | | | [address] | Provider Unknown | lumbar vertebra, | | | | [place], [place] | [phone] | initial encounter | | | | [address] | | ([facility]); Low back | | | | [phone] | Bryant Forrest, | pain, unspecified | | | | | MD [address] | back pain | | | | | [address]VE [place], [place] | laterality, | | | | | [address] | unspecified | | | | | [...]
--- OUTSIDE RECORDS SUMMARY | ~2020-01-30 | XMS | Encounter Summary ---
Demographics + + + | Address | [address] | | | [place] [address] | + + + | Home Phone [...] Author | [facility] | | | and [place] | + + + | Organization | [facility] | | | and [place] [...] [place] | | | | | [address] | | + + + + + Care Team Providers + +------+ + | Care Pocket Closer Name | Role | Phone | + +------+ + | Allison Fairchild NP | PCP | | + +------+ + Reason for Visit + + + | Reason | Comments | + + + | Appointment Question | | + + + Encounter Details +--------+ + + + + | Date | Type | Department | Care Team | Description | +--------+ + + + + | 09/12/ | Telephone | [facility] | Anival Stevenson MD | Appointment Question | | 2020 | | GENERAL SURGERY [address] | [address] | | | | | [address] | [address] [place], [place] | | | | | [place], [place] | [address] | | | | | [address] | | | | | | [phone] | | | +--------+ + + + [...]
--- OUTSIDE RECORDS SUMMARY | ~2020-01-30 | XMS | Encounter Summary ---
Demographics + + + | Address | [address] | | | [place] [address] | + + + | Home Phone [...] | Author | [facility] | | | and [place] | + + + | Organization | [facility] | [...] [address] | | | | | [place] | | | | | [address] | | + + + + + Care Team Providers + +------+ + | Care Ancillary Services Manager Therapy Name | Role | Phone | + +------+ + PCP | Unavailable | + +------+ + Encounter Details +--------+ + + + + | Date | Type | Department | Care Team | Description | +--------+ + + + + | 08/14/ | Hospital | [facility] | | | | 2012 | Encounter | [facility] | | | | | | [address] | | | | | | [place] [address] | | | | | | [phone] | | | +--------+ + + + [...]
--- OUTSIDE RECORDS SUMMARY | ~2020-01-30 | XMS | Encounter Summary ---
Demographics + + + | Address | [address] | | | [place] [address] | + + + | Home Phone [...] [facility] | | | and [place] | + + + | Organization | [facility] [...] [place] | | | | | [address] | | + + + + + Care Team Providers + +------+ + | Care Elastic Attacher Chainstitch Name | Role | Phone | [...] | 09/11/ | Telephone | [facility] | Dc Naik MD | Appointment | | 2015 | | GASTROENTEROLOGY | [address], [place] | | | | | [address] [place] | [address] [place], [place] | | | | | [address] [place], [place] | [address] | | | | | [address] | | | | | | [phone] | | | +--------+ + + + [...]
--- OUTSIDE RECORDS SUMMARY | ~2020-01-30 | XMS | Encounter Summary ---
Demographics + + + | Address | [address] | | | [place] [address] | + + + | Home Phone [...] | Author | [facility] | | | and [place] | + + + | Organization | [facility] | | | and [...] [place] | | | | | [address] | | + + + + + Care Team Providers + +------+ + | Care Installer Interior Assemblies Name | Role | Phone | + [...] | | | | | | [address] [place], [place] | | | | | | [address] | | | | | | [phone] | | | +--------+ + + + [...]
--- OUTSIDE RECORDS SUMMARY | ~2020-01-30 | XMS | Encounter Summary ---
Demographics + + + | Address | [address] | | | [place] [address] | + + + | Home Phone [...] | Author | [facility] | | | and [place] | + + + | Organization | [facility] | [...] [place] | | | | | [address] | | + + + + + Care Team Providers + +------+ + | Care Screw Machine Tender Name | Role | Phone | + +------+ + | lAlison Fairchild NP | PCP | | + [...] [address] | | | | | [place] | [place] | | | | | [address] | [address] | | | | | [phone] | [phone] | | | | | | | [...] [place] | | | | | | [address] | | | | + + + [...]
--- OUTSIDE RECORDS SUMMARY | ~2020-01-30 | XMS | Encounter Summary ---
Demographics + + + | Address | [address] | | | [place] [address] | + + + | Home Phone [...] | Author | [facility] | | | and [place] | + + + | Organization | [facility] | | | [...] [place] | | | | | [address] | | + + + + + Care Team Providers + +------+ + | Care Mountain Guide Name | Role | Phone | + [...] + + | 09/13/ | Telephone | [facility] | Anival Stevenson MD | Appointment | | 2020 | | GENERAL SURGERY [address] | [address] | | | | | [address] | [address] [place], [place] | | | | | [place], [place] | [address] | | | | | [address] | | | | | | [phone] | | | +--------+ + + + [...]
--- OUTSIDE RECORDS SUMMARY | ~2020-01-30 | XMS | Encounter Summary ---
Demographics + + + | Address | [address] | | | [place] [address] | + + + | Home Phone | | + + + | Preferred Language | Unknown | + + + | Marital Status | | + + + | Restoration Affiliation | Unknown | + + + [...] Team Providers + +------+ + | Care Sports Equipment Racker Name | Role | Phone | + [...] JO Ordaz | | | | | [address] | [facility] | | | | | Loop Physician's | [place], [place] | | | | | [place], [facility] Floor | [address] | | | | | [place], [place] | [phone] | | | | | [address] | | | | | | [phone] | | | +--------+ + + + [...]
--- OUTSIDE RECORDS SUMMARY | ~2020-01-30 | XMS | Encounter Summary ---
Demographics + + + | Address | [address] | | | [place] [address] | + + + | Home Phone [...] Author | [facility] | | | and [place] | + + + | Organization | [facility] | [...] [place] | | | | | [address] | | + + + + + Care Team Providers + +------+ + | Care Lumber Scaler Name | Role | Phone | + +------+ + | Allison Fairchild NP | PCP | | + +------+ + Encounter Details +--------+ + + + + | Date | Type | Department | Care Team | Description | +--------+ + + + + | 09/09/ | Anesthesia | [facility] | April Lee, | | | 2019 | [facility] | MD Adriana DODSON | | | | | ANESTHESIA [address] | [place] [address] | | | | | [address] | [phone] | | | | | [place], [place] | | | | | | [address] | | | | | | [phone] | | | +--------+ + + + [...]
--- OUTSIDE RECORDS SUMMARY | ~2020-01-30 | XMS | Encounter Summary ---
Demographics + + + | Address | [address] | | | [place] [address] | + + + | Home Phone [...] + + | Author | [facility] | | | and [place] | + + + | Organization | [facility] | | | [...] [address] | | | | | [place] | | | | | [address] | | + + + + + Care Team Providers + +------+ + | Care Silk Soaker Name | Role | Phone | + +------+ + PCP | Unavailable | + +------+ + Encounter Details +--------+ + + + + | Date | Type | Department | Care Team | Description | +--------+ + + + + | 01/09/ | [facility] | [facility] | Dominick Perez MD | | | 2013 | Encounter | [facility] | [address] | | | | | CLINICAL LABORATORY | [place] | | | | | [address] | [address] | | | | | [place], [place] | [phone] | | | | | [address] | | | | | | [phone] | | | +--------+ + + + [...] At | + + + | CASE: [id number] PATIENT: APARNA HAN Surgical Pathology Report | [...]
--- OUTSIDE RECORDS SUMMARY | ~2020-01-30 | XMS | Encounter Summary ---
Demographics + + + | Address | [address] | | | [place] [address] | + + + | Home Phone [...] + | Author | [facility] | | | and [place] | + + + | Organization | [facility] | | [...] [place] | | | | | [address] | | + + + + + Care Team Providers + +------+ + | Care Cane Weigher Name | Role | Phone | + [...] | | | | [address] [facility] | [place], [place] | | | | | [address] [place] | [address] | | | | | [address] | [phone] | | | | | [phone] | | | +--------+--------+ + + + [...]
--- OUTSIDE RECORDS SUMMARY | ~2020-01-30 | XMS | Encounter Summary ---
Demographics + + + | Address | [address] | | | [place] [address] | + + + | Home Phone | | + + + | Preferred Language | Unknown | + + + | Marital Status | | + + + | Islam Affiliation | 1013 | + + + | Race | Unknown | + + + | Ethnic Group | Unknown | + + + Author + + + | Author | [facility] | | | and [place] | + + + | Organization | [facility] | | | and [...] [place] | | | | | [address] | | + + + + + Care Team Providers + +------+ + | Care Classification Counselor Name | Role | Phone | [...] [place] | | | | | [address] | [address] | | | | | [phone] | [phone] | | | | | | | [...] EXTERNAL LAB | | Testing performed at [facility] | | | Health;[address];[place] [address] CULTURE | | | NO GROWTH 6 DAYS | | | Testing performed at [facility], [address], | | | [place] [address] REPORT STATUS | | | 10/09/2013 FINAL [...]
--- OUTSIDE RECORDS SUMMARY | ~2020-01-30 | XMS | Encounter Summary ---
Demographics + + + | Address | [address] | | | [place] [address] | + + + | Home Phone [...] | Author | [facility] | | | and [place] | + + + | Organization | [facility] [...] [place] | | | | | [address] | | + + + + + Care Team Providers + +------+ + | Care Bite Block Maker Name | Role | Phone | [...] | | | | nausea | [address] | | | | | Epigastric | BLVD | [address] | | | | | pain | [place], [place] | AVE | | | | | Abdominal | [address] | [place], [place] | | | | | pain, | Phone: | [address] | | | | | unspecified | [phone] | Phone: | | | | | abdominal | Fax: | [phone] | | | | | location | [phone] | Fax: | | | | | Procedures | | [phone] | | | | | CT Abdomen [...] | | | Chronic | Blvd | [place] [address] | | | | | hepatitis, | [place], | Phone: | | | | | unspecified | [place] [address] | [phone] | | | | | (HCC) | Phone: | Fax: | | | | | Nausea | [phone] | [phone] | | | | | Procedures | Fax: | | | | | | Office Visit | [phone] | | +--------+--------+ + + + + Encounter Details +--------+---------+ + + + | Date | Type | Department | Care Team | Description | +--------+---------+ + + + | 10/20/ | Office | [facility] | Adrian Aponte MD | Severe nausea | | 2018 | Visit | GASTROENTEROLOGY | [address] | (Primary Dx); | | | | [address] | [place], [place] | Epigastric pain; | | | | [address] [place], [place] | [address] | Dysphagia, | | | | [address] | [phone] | unspecified type; | | | | [phone] | | Narcotic dependence | | | [...] ap proved, he would like done at 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 documented in this e ncounter Plan [...]
--- OUTSIDE RECORDS SUMMARY | ~2020-01-30 | XMS | Encounter Summary ---
Demographics + + + | Address | [address] | | | [place] [address] | + + + | Home Phone [...] | Author | [facility] | | | and [place] | + + + | Organization | [facility] | | | [...] [place] | | | | | [address] | | + + + + + Care Team Providers + +------+ + | Care Paste Mixer Name | Role | Phone | [...] + + | 01/22/ | Surgery | [facility] | Dc Naik MD | ERCP | | 2018 | | MED CTR MP INTRA OP | [address], [place] | | | | | [address] | [address] [place] | | | | | [place], [place] | [address] | | | | | [address] | | | | | | [phone] | | | +--------+---------+ + + + [...] might be differ ent from the original. [place] HOSPITALIST DISCHARGE SUMMARY Pt. Name/Age/: Reza [...] information: [address] [place] [address] [facility] [address] Adrian Aponte MD In 3 weeks. Specialty: Gastroenterology Contact information: [address] [place] [address] [facility] [address] Laboratory. Contact information: recheck CMP in 1 week Condition: Patient being discharged with condition improved Diet: soft low fat Greater than 30 minutes were spent on discharge and coordination of post-hospital care. Electronically signed by: Stephy Patel MD, 01/23/2018 12:17 [facility] Portions of this chart may have been created with Stormpath voice recognition software. Occasi onal wrong-word or [...] All belongings gathered. went down to car. 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 Patient st ates medication is ineffective. 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 Terrance ing Martin Devlni MD methocarbamol (ROBAXIN) 500 mg tablet Take [...] performed and electronically signed by Teresa Portillo, Laboratory Equipment Installer 6:53 Reviewed by Rody Franco, PharmD 01/23/2018 7:36 Isha Rachel MD - 01/22/2018 4:06 PM PDTFormatting of this note might be different from the origi nal. [facility] HOSPITALIST BRIEF NOTE Patient: Reza Cespedes : 1960: Age: 57 y.o. MedRec: [id number] Admission date: 01/21/2018 Hospital day # : [...] arge tomorrow. Stephy Patel MD 01/22/2018 16:06 [facility] Portions of this chart may have been created with Stormpath voice recognition software. Occasi onal wrong-word or [...] + | [facility] | [address] | [place] | [phone] | | [facility] | | [address] | | | - LABORATORY | | [...] | | FILTRATION | mL/min/1.73m2 | [facility] | | | [facility] | RATE,ESTIMATED | | MEDICAL | | | | mL/min/1.76v5Kjlh than | | CENTER - | | [...] | | | | mg/dL | [facility] | | | | | | MEDICAL [...] [address] | [place] | [phone] | | [facility] | | [address] | | | - LABORATORY | | [...] 01/22/2018 | [facility]ATION | | 2:09 PMMRN: [id number] #: [id number] of : | | | 1960Admit Type: InpatientAge: 57Room: [facility] 01Gender: MaleNote | | | Status: FinalizedAttending MD: Dc Naik , [facility]: | | | ERCPIndications: Abnormal abdominal CT, Bile duct stone on | | | Computed Tomogram Scan, Abnormal MRCP, | | | Abnormal abdominal ultrasoundProviders: Dc Naik, | | | , Perla oPnce RN, Aracelis Lewis RN, | | | Jluis Ruiz CMA, Edyta Rees, Copy Clerk, | | | Tremaine Stevenson MD (Anesthesia [...] | | | the anesthesiologist and the earth moving technician in the endoscopy suite. | | [...] | biliary stent was visible on the dairy farmer film. The esophagus was | | | [...] | | 2:23:41 PMScope Out: 2:40:01 PM [facility] | | | [place], [address] [place] [address] | | | - Advance diet as [...] |Scope Out: 2:40:01 PM | | | [facility], [address] [place] [address] | | | [address] | | + + -+ + +---------+ [...] 2018. PROTOCOL: | | | Coronal T2 dairy farmer, axial T2 dairy farmer, coronal 3D respiratory triggered, | | | [...] | dated January 22, 2018.PROTOCOL: Coronal T2 dairy farmer, axial T2 dairy farmer, coronal 3D respiratory | | triggered,coronal T2 [...] [address] | [place] | [phone] | | [facility] | | [address] | | | - LABORATORY | | [...] + + | Performed at: 01 - [facility] [address] [facility], | REFERENCE LAB | | [place] [employer], [place] [id number] High Lift Operator: Rom Stinson MD, Phone: | [facility] | | [phone] | | + + + + + + + + | Performing | Address | City/State/Zipcode | Phone Number | | Organization | | | | + + + + + | REFERENCE LAB | [address] | [place], [place] | [phone] | | [facility] | [facility] | [address] | | + + + + + [...] [address], | REFERENCE LAB | | [place], [place] [address] High Lift Operator: Arturo Barriga MD, Phone: | [facility] | | [phone] | | + + + + + + + + | Performing | Address | City/State/Zipcode | Phone Number | | Organization | | | | + + + + + | REFERENCE LAB | [address] [facility] [address] | [place], [place] | [phone] | | [facility] | [address] | [address] | | + + + + + [...] [address], | REFERENCE LAB | | [place] [id number] High Lift Operator: Rom Stinson MD, Phone: | [facility] | | [phone] | | + + + + + + + + | Performing | Address | City/State/Zipcode | Phone Number | | Organization | | | | + + + + + | REFERENCE LAB | [address] | [place], [place] | [phone] | | [facility] | [address] [facility] | [address] | | + + + + + [...] [address] | [place] | [phone] | | [facility] | | [address] | | | - LABORATORY | | [...] + | [facility] | [address] | [place] | [phone] | | [facility] | | [address] | | | - LABORATORY | | [...] [address] | [place] | [phone] | | [facility] | | [address] | | | - LABORATORY | | [...] [address] | [place] | [phone] | | [facility] | | [address] | | | - LABORATORY | | [...] [address] | [place] | [phone] | | [facility] | | [address] | | | - LABORATORY | | [...] ST. | [address] | [place], [place] | [phone] | | [facility] | | [address] | | | - LABORATORY | | [...] test | | | | | | ([id number]). | | | | + + + + + + + + | Specimen | + + | Blood | + + + + + | Narrative | Performed At | + + + | Performed at: 01 - [address] [place] [address], | REFERENCE LAB | | [place], [place] [id number] High Lift Operator: Samuel Wallace MD, Phone: | [facility] | | [phone] | | + + + + + + + + | Performing | Address | City/State/Zipcode | Phone Number | | Organization | | | | + + + + + | REFERENCE LAB | [address] | [place], [place] | [phone] | | [facility] | [address] | [address] | | + + + + + [...] [address] | [place] | [phone] | | [facility] | | [address] | | | - LABORATORY | | [...] + | [facility] | [address] | [place] | [phone] | | [facility] | | [address] | | | - LABORATORY | | [...] [address] | [place] | [phone] | | [facility] | | [address] | | | - LABORATORY | | [...] mL/min/1.73m2 | [facility] | | | [place] | RATE,ESTIMATED | | MEDICAL | | | | mL/min/1.24l8Guek than | | CENTER - | | [...] [address] | [place] | [phone] | | [facility] | | [address] | | | - LABORATORY | | [...] preliminary report was provided by MD Enzo, [facility], 01/21/2018 | | | 10:53:54 PM [...] - 1.030 | [facility] | | | [place], | | | [facility] | | [...] | Comment | Indicated | | [facility] | | | | | | MEDICAL [...] [address] | [place] | [phone] | | [facility] | | [address] | | | - LABORATORY | | [...] [address] | [place] | [phone] | | [facility] | | [address] | | | - LABORATORY | | [...] ST. | [address] | [place], [place] | [phone] | | [facility] | | [address] | | | - LABORATORY | | [...] [address] | [place] | [phone] | | [facility] | | [address] | | | - LABORATORY | | [...] + | [facility] | [address] | [place], [place] | [phone] | | [facility] | | [address] | | | - LABORATORY | | [...] St | [place] | | | [facility] | | [address] | | | - BLOOD BANK | [...] | | | | | | [facility] | | | | | | [...] [address] | [place] | [phone] | | [facility] | | [address] | | | - LABORATORY | | [...] (H) | 70 - 109 mg/dL | [facility] | | | | | | [facility] | | | | | | MEDICAL | | | | | | CENTER - | | | | | | LABORATORY | | + + + + + + | BUN | 18 | 7 - 18 mg/dL | [facility] | | | | | | [facility] | | | | | | MEDICAL | | | | | | CENTER - | | | | | | LABORATORY | | + + + + + + | Creatinine | 1.23 | 0.60 - 1.30 | [facility] | | | | | mg/dL | [facility] | | | | | | MEDICAL | | | | | | CENTER - | | | | | | LABORATORY | | + + + + + + | eGFR if not | 60Comment: GLOMERULAR | >=60 | [facility] | | | | FILTRATION | mL/min/1.73m2 | [facility] | | | [place] | RATE,ESTIMATED | | MEDICAL | | | | mL/min/1.95i4Ypcb than | | CENTER - | | [...] + | [facility] | [address] | [place] | [phone] | | [facility] | | [address] | | | - LABORATORY | | [...] | | Eosinophils | | K/uL | [facility] | | | | | | MEDICAL | | | | | | CENTER - | | | | | | LABORATORY | | + + + + + + | Absolute | 0.10 | 0.00 - 0.10 | [facility] | | | Basophils | | K/uL | [facility] | | | | | | MEDICAL [...] [address] | [place] | [phone] | | [facility] | | [address] | | | - LABORATORY | | [...]
--- OUTSIDE RECORDS SUMMARY | ~2020-01-30 | XMS | Clinical Summary ---
Demographics + + + | Address | [address] | | | [place] [address] | + + + | Home Phone | | + + + | Preferred Language | Unknown | + + + | Marital Status | | + + + | Mosque Affiliation | Unknown | + + + [...] Team Providers + +------+ + | Care Blueprint Reproducer Name | Role | Phone | + +------+ + | Allison Fairchild NP | PCP | | + +------+ + Source Comments TANYA is fully live on both [facility] Ambulatory and [facility] InPatient.[facility] Allergies + + + + + + [...] | | + + + +---------+------+------+-------+ | ir-tal-nscgb | Chew and swallow. | | 0 [...] | | | | resent | | [place], [place] | | | | | | | | [address] | | + +--------+ +--------+ + +--------+ | [employer] | [employer] | xxxxxxxx | 09/11/19 | | | [...] | 1961 | [id number] | [place] [address] | | | valentín | | | 1 (Home) | | + +--------+ +--------+ + + | Reza Cespedes | Worker | Self | [birth year]/ | | [address] | | | s Comp | | 1961 | [phone] | [place] [address] | | | | | | 1 (Home) | | + +--------+ +--------+ + +
--- OUTSIDE RECORDS SUMMARY | ~2020-01-30 | XMS | Encounter Summary ---
Demographics + + + | Address | [address] | | | [place] [address] | + + + | Home Phone [...] + | Author | [facility] | | | and [place] | + + + | Organization | [facility] | | | [...] [place], [place] | | | | | [address] | | + + + + + Care Team Providers + +------+ + | Care Screen Room Operator Name | Role | Phone | [...] | [place], [place] | [place] [address] | | | | | [address] | [phone] | | | | | [phone] | | | +--------+ + + + [...]
--- OUTSIDE RECORDS SUMMARY | ~2020-01-30 | XMS | Encounter Summary ---
Demographics + + + | Address | [address] | | | [place] [address] | + + + | Home Phone [...] + | Author | [facility] | | | and [place] | + + + | Organization | [facility] [...] [place] | | | | | [address] | | + + + + + Care Team Providers + +------+ + | Care Slurry Plant Operator Name | Role | Phone | [...] 2020 | | [address] | Wet Mix Operator | fever; Night sweats; | | | | [place], [place] | | Thrombocytosis | | | | [address] | | ([facility]) | | | | [phone] | | | +--------+ + + + [...] | | | Absolute | performed at [facility];[address] | K[address] | LAB | | | | [place] | | [facility] | | | | [address];[place] [address] | | LABORATORY | | + + + + + + + + | Specimen | + + | Blood | + + + + + + + | Performing | Address | City/State/Zipcode | Phone Number | | Organization | | | | + + + + + | REFERENCE LAB | [address] | [place] | [phone] | | [facility] | Bl[address] | [address] | | | LABORATORY | | | | + + + + + | REFERENCE LAB | [address] | [place] | | | [facility] | Blvd[address] | [address] | | | LABORATORY | | | [...] | | | | performed at [facility];[address] | | | | | | [address] | | | | | | [place] [address] | | | | | | | | | | + + + + + + + + | Specimen | + + | Blood | + + + + + + + | Performing | Address | City/State/Zipcode | Phone Number | | Organization | | | | + + + + + | REFERENCE LAB | [address] [place] [address] | [place], [place] | [phone] | | [facility] | Blvd. | [address] | | | LABORATORY | | | | + + + + + | REFERENCE LAB | [address] [place] [address] | [place], [place] | | | [facility] | Blvd. | [address] | | | LABORATORY | | | | + + + + + documented in this encounter Visit Diagnoses + + | Diagnosis | + + | Chills without fever Chills (without fever) | + + | Night sweats Generalized hyperhidrosis | + + | Thrombocytosis (HCC) Essential thrombocythemia | + + documented in this encounter"
--- OUTSIDE RECORDS SUMMARY | ~2020-01-30 | XMS | Encounter Summary ---
Demographics + + + | Address | [address] | | | [place] [address] | + + + | Home Phone [...] Author | [facility] | | | and [place] | + + + | Organization | [facility] | | [...] [place] | | | | | [address] | | + + + + + Care Team Providers + +------+ + | Care Prison Guard Name | Role | Phone | + [...] + + | 10/07/ | Telephone | [facility] | Anival Stevenson MD | Results | | 2020 | | GENERAL SURGERY [address] | [address] | | | | | [address] | [address] [place], [place] | | | | | [place], [place] | [address] | | | | | [address] | | | | | | [phone] | | | +--------+ + + + [...]
--- OUTSIDE RECORDS SUMMARY | ~2020-01-30 | XMS | Encounter Summary ---
Demographics + + + | Address | [address] | | | [place] [address] | + + + | Home Phone [...] | Author | [facility] | | | and [place] | + + + | Organization | [facility] [...] [place] | | | | | [address] | | + + + + + Care Team Providers + +------+ + | Care Primary Teaching Assistant Name | Role | Phone | [...] | | | | [address] [facility] | [place], [place] | | | | | [address] [place] | [address] | | | | | [address] | [phone] | | | | | [phone] | | | +--------+--------+ + + + [...]
--- OUTSIDE RECORDS SUMMARY | ~2020-01-30 | XMS | Encounter Summary ---
Demographics + + + | Address | [address] | | | [place] [address] | + + + | Home Phone [...] Author | [facility] | | | and [place] | + + + | Organization | [facility] [...] [place] | | | | | [address] | | + + + + + Care Team Providers + +------+ + | Care Filter Machine Operator Name | Role | Phone | + +------+ + | Allison Fairchidl NP | PCP | | + +------+ [...] | | | | dysphagia | | [place] [address] | | | | | Other | | Phone: | | | | | dysphagia | | [phone] | | | | | [R13.19]Unsp | | Fax: | | | | | ecified | | [phone] | | | | | abdominal | | | | | | | pain [R10.9] | | | +--------+--------+ + + + + Encounter Details +--------+ + + + + | Date | Type | Department | Care Team | Description | +--------+ + + + + | 10/23/ | Anesthesia | [facility] | Shyam Peña | | | 2015 | Event | [facility] INTRA OP | MD Greg [address] | | | | | [address] | [address] [place] | | | | | [place] | [place] [address] | | | | | [address] | [phone] | | | | | [phone] | | | +--------+ + + + [...] + + | Periph | 10/23/15; 733; [id number] | 10/23/15733 by | 10/23/15909 by | [...]
--- OUTSIDE RECORDS SUMMARY | ~2020-01-30 | XMS | Encounter Summary ---
Demographics + + + | Address | [address] | | | [place] [address] | + + + | Home Phone [...] | Author | [facility] | | | and [place]ana | + + + | Organization | [facility] | [...] [place] | | | | | [address] | | + + + + + Care Team Providers + +------+ + | Care Career Based Intervention Coordinator Name | Role | Phone | [...] [place] | | | | | [address] | [address] | | | | | [phone] | [phone] | | | | | | | [...] [place] | | | | | | [address] | | | | + + + + + + | Red Blood | 4.18 (L)Comment: Testing | 4.20 - 5.70 | EXTERNAL | | | Cells | performed at [facility] | M/uL | LAB | | | Counted | [address] | | | | | | [place] | | | | | | [address] | | | | + + + + + + | Hemoglobin | 11.6 (L)Comment: Testing | 13.2 - 17.0 | EXTERNAL | | | | performed at [facility] | g/dL | LAB | | | | [address] | | | | | | [place] | | | | | | [address] | | | | + + + + + + | Hematocrit, | 36.1 (L)Comment: Testing | 39.0 - 50.0 % | EXTERNAL | | | POC | performed at [facility] | | LAB | | | | [address] | | | | | | [place] | | | | | | [address] | | | | + + + + + + | MCV | 86.4Comment: Testing | 80.0 - 100.0 fl | EXTERNAL | | | | performed at [facility] | | LAB | | | | [address] | | | | | | [place] | | | | | | [address] | | | | + + + + + + | MCH | 27.8Comment: Testing | 27.0 - 34.0 pg | EXTERNAL | | | | performed at [facility] | | LAB | | | | [address] | | | | | | [place] | | | | | | [address] | | | | + + + + + + | MCHC | 32.2Comment: Testing | 32.0 - 35.5 | EXTERNAL | | | | performed at [facility] | g/dL | LAB | | | | Health;[address] | | | | | | [place] | | | | | | [address] | | | | + + + + + + | RDW-CV | 59.1 (H)Comment: Testing | 37 - 53 fl | EXTERNAL | | | | performed at [facility] | | LAB | | | | [address] | | | | | | [place] | | | | | | [address] | | | | + + + + + + | Platelet | 629 (H)Comment: Testing | 150 - 400 K/uL | EXTERNAL | | | Count | performed at [facility] | | LAB | | | Plasma | [address] | | | | | | [place] | | | | | | [address] | | | | + + + + + + | MPV | 7.7Comment: Testing | fl | EXTERNAL | | | | performed at [facility] | | LAB | | | | [address] | | | | | | [place] | | | | | | [address] | | | | + + + + + + | Differentia | AUTOMATEDComment: | | EXTERNAL | | | l Type | Testing performed at | | LAB | | | | [facility];[address] | | | | | | [place] | | | | | | [address] | | | | + + + [...] [place] | | | | | | [address] | | | | + + + + + + | Red Blood | 4.18 (L)Comment: Testing | 4.20 - 5.70 | EXTERNAL | | | Cells | performed at [facility] | M/uL | LAB | | | Counted | Health;[address] | | | | | | [place] | | | | | | [address] | | | | + + + + + + | Hemoglobin | 11.6 (L)Comment: Testing | 13.2 - 17.0 | EXTERNAL | | | | performed at [facility] | g/dL | LAB | | | | Health;[address] | | | | | | [place] | | | | | | [address] | | | | + + + + + + | Hematocrit, | 36.1 (L)Comment: Testing | 39.0 - 50.0 % | EXTERNAL | | | POC | performed at [facility] | | LAB | | | | Health;[address] | | | | | | [place] | | | | | | [address] | | | | + + + + + + | MCV | 86.4Comment: Testing | 80.0 - 100.0 fl | EXTERNAL | | | | performed at [facility] | | LAB | | | | Health;[address] | | | | | | [place] | | | | | | [address] | | | | + + + + + + | MCH | 27.8Comment: Testing | 27.0 - 34.0 pg | EXTERNAL | | | | performed at [facility] | | LAB | | | | Health;[address] | | | | | | [place] | | | | | | [address] | | | | + + + + + + | MCHC | 32.2Comment: Testing | 32.0 - 35.5 | EXTERNAL | | | | performed at [facility] | g/dL | LAB | | | | Health;[address] | | | | | | [place] | | | | | | [address] | | | | + + + + + + | RDW-CV | 59.1 (H)Comment: Testing | 37 - 53 fl | EXTERNAL | | | | performed at [facility] | | LAB | | | | Health;[address] | | | | | | [place] | | | | | | [address] | | | | + + + + + + | Platelet | 629 (H)Comment: Testing | 150 - 400 K/uL | EXTERNAL | | | Count | performed at [facility] | | LAB | | | Plasma | [address] | | | | | | [place] | | | | | | [address] | | | | + + + + + + | MPV | 7.7Comment: Testing | fl | EXTERNAL | | | | performed at [facility] | | LAB | | | | Health;[address] | | | | | | [place] | | | | | | [address] | | | | + + + + + + | Differentia | AUTOMATEDComment: | | EXTERNAL | | | l Type | Testing performed at | | LAB | | | | [facility];[address] | | | | | | [place] | | | | | | [address] | | | | + + + [...]
--- OUTSIDE RECORDS SUMMARY | ~2020-01-30 | XMS | Encounter Summary ---
Demographics + + + | Address | [address] | | | [place] [address] | + + + | Home Phone [...] | Author | [facility] | | | and [place] | + + + | Organization | [facility] | [...] [place] | | | | | [address] | | + + + + + Care Team Providers + +------+ + | Care Shaper Set Up Operator Name | Role | Phone | [...] + + | 08/25/ | Documentati | [facility] | Shannan Pastrana | Results | | 2019 | on | INFECTIOUS DISEASE | Deidre Jean MD | ([facility]--CMP, | | | | [address] | [address] | CRP, CBC, ESR) | | | | [place], [place] | [place] [address] | | | | | [address] | [phone] | | | | | [phone] | | | +--------+ + + + [...]
--- OUTSIDE RECORDS SUMMARY | ~2020-01-30 | XMS | Encounter Summary ---
Demographics + + + | Address | [address] | | | [place] [address] | + + + | Home Phone [...] | Author | [facility] | | | and [place] | + + + | Organization | [facility] | | [...] [address] | | | | | [place] | | | | | [address] | | + + + + + Care Team Providers + +------+ + | Care Sprinkler Worker Name | Role | Phone | + +------+ + PCP | Unavailable | + +------+ + Encounter Details +--------+ + + + + | Date | Type | Department | Care Team | Description | +--------+ + + + + | 12/07/ | Hospital | [facility] | Conversion | | | 2014 | Encounter | [facility] | Transaction, | | | | | CLINIC [address] | Provider Unknown | | | | | [place], [place] | | | | | | [address] | (Fax) | | | | | [phone] | | | +--------+ + + + [...] LAB | | | | Blvd;[place] [address] | | | | + + + + + + | Antibody | NEGATIVE | | EXTERNAL | | | Screen | | | LAB | | + + + + + + | Antibody | Testing performed at | | EXTERNAL | | | Screen | [facility] | | LAB | | | | Blvd;[place] [address] | | | | + + + [...] | | | | [facility], [address] [facility] [place] | | | | | | [place] | | | | | | [address] | | | | + + + + + + | Red Blood | 4.92Comment: Testing | 4.20 - 5.70 | EXTERNAL | | | Cells | performed at [facility], [address] | M/uL | LAB | | | Counted | [place], | | | | | | [place] [address] | | | | + + [...] | | | | | [place] [address] | | | | + + + + + + | MCV | 90.9Comment: Testing | 80.0 - 100.0 fl | EXTERNAL | | | | performed at [facility], [address] | | LAB | | | | [address], | | | | | | [place] [address] | | | | + + + + + + | MCH | 30.4Comment: Testing | 27.0 - 34.0 pg | EXTERNAL | | | | performed at [facility], [address] | | LAB | | | | [address], | | | | | | [place] [address] | | | | + + + + + + | MCHC | 33.5Comment: Testing | 32.0 - 35.5 | EXTERNAL | | | | performed at [facility], [address] | g/dL | LAB | | | | [address], | | | | | | [place] [address] | | | | + + + + + + | RDW-CV | 47.7Comment: Testing | 37 - 53 fl | EXTERNAL | | | | performed at [facility], [address] | | LAB | | | | [address], | | | | | | [place] [address] | | | | + + + + + + | Platelet | 334Comment: Testing | 150 - 400 K/uL | EXTERNAL | | | Count | performed at [facility], [address] | | LAB | | | Plasma | [address], | | | | | | [place] [address] | | | | + + + + + + | MPV | 8.9Comment: Testing | fl | EXTERNAL | | | | performed at [facility], [address] | | LAB | | | | [address], | | | | | | [place] [address] | | | | + + + + + + | Differentia | AUTOMATEDComment: | | EXTERNAL | | | l Type | Testing performed at | | LAB | | | | [facility], [address] [facility] [place] | | | | | | [place] | | | | | | [address] | | | | + + + + + + | % Segmented | 74.30Comment: Testing | % | EXTERNAL | | | | performed at [facility], [address] | | LAB | | | Neutrophils | [place], | | | | | | [place] [address] | | | | + + + + + + | % | 19.68Comment: Testing | % | EXTERNAL | | | Lymphocytes | performed at [facility], [address] | | LAB | | | | [address], | | | | | | [place] [address] | | | | + + + + + + | % Monocytes | 4.24Comment: Testing | % | EXTERNAL | | | | performed at [facility], [address] | | LAB | | | | [address], | | | | | | [place] [address] | | | | + + + + + + | % | 0.95Comment: Testing | % | EXTERNAL | | | Eosinophils | performed at [facility], [address] | | LAB | | | | [address], | | | | | | [place] [address] | | | | + + + + + + | % Basophils | 0.83Comment: Testing | % | EXTERNAL | | | | performed at [facility], [address] | | LAB | | | | [address], | | | | | | [place] [address] | | | | + + + + + + | Absolute | 8.58 (H)Comment: Testing | 1.90 - 7.40 | EXTERNAL | | | Segmented | performed at [facility], [address] | K/uL | LAB | | | Neutrophils | [address], | | | | | | [place] [address] | | | | + + + + + + | Absolute | 2.27Comment: Testing | 1.00 - 3.90 | EXTERNAL | | | Lymphocytes | performed at [facility], [address] | K/uL | LAB | | | | [address], | | | | | | [place] [address] | | | | + + + + + + | Absolute | 0.49Comment: Testing | 0.00 - 0.80 | EXTERNAL | | | Monocytes | performed at [facility], [address] | K/uL | LAB | | | | [address], | | | | | | [place] [address] | | | | + + + + + + | Absolute | 0.11Comment: Testing | 0.00 - 0.50 | EXTERNAL | | | Eosinophils | performed at [facility], [address] | K/uL | LAB | | | | [address], | | | | | | [place] [address] | | | | + + + + + + | Absolute | 0.10Comment: Testing | 0.00 - 0.10 | EXTERNAL | | | Basophils | performed at [facility], [address] | K/uL | LAB | | | | [place], | | | | | | [place] [address] | | | | + + + [...] | | | | | [place] [address] | | | | + + + + + + | K | 4.5Comment: Testing | 3.5 - 4.9 | EXTERNAL | | | | performed at [facility], [address] | mmol/L | LAB | | | | [place], | | | | | | [place] [address] | | | | + + + + + + | Cl | 104Comment: Testing | 99 - 109 mmol/L | EXTERNAL | | | | performed at [facility], [address] | | LAB | | | | [address], | | | | | | [place] [address] | | | | + + + + + + | CO2 | 29Comment: Testing | 23 - 32 mmol/L | EXTERNAL | | | | performed at [facility], [address] | | LAB | | | | [address], | | | | | | [place] [address] | | | | + + + + + + | Anion Gap | 7Comment: Testing | 5 - 20 mmol/L | EXTERNAL | | | | performed at [facility], [address] | | LAB | | | | [address], | | | | | | [place] [address] | | | | + + + + + + | Glucose, | 110 (H)Comment: Testing | 65 - 99 mg/dL | EXTERNAL | | | Fasting | performed at [facility], [address] | | LAB | | | | [address], | | | | | | [place], [place] [address] | | | | + + + + + + | BUN | 16Comment: Testing | 8 - 25 mg/dL | EXTERNAL | | | | performed at [facility], [address] | | LAB | | | | [address], | | | | | | [place], [place] [address] | | | | + + + + + + | Creatinine | 0.86Comment: Testing | 0.70 - 1.30 | EXTERNAL | | | | performed at [facility], [address] | mg/dL | LAB | | | | [address], | | | | | | [place] [address] | | | | + + + + + + | BUN/Creatin | 19Comment: Testing | | EXTERNAL | | | ine Ratio | performed at [facility], [address] | | LAB | | | | [address], | | | | | | [place] [address] | | | | + + + + + + | Calcium | 9.4Comment: Testing | 8.5 - 10.5 | EXTERNAL | | | | performed at [facility], [address] | mg/dL | LAB | | | | [facility], | | | | | | [place] [address] | | | | + + + [...] | | at [facility], [address] | | | | | | [email or web address], | | | | | | [place] [address] | | | | + + + [...]
--- OUTSIDE RECORDS SUMMARY | ~2020-01-30 | XMS | Encounter Summary ---
Demographics + + + | Address | [address] | | | [place] [address] | + + + | Home Phone [...] + | Author | [facility] | | | and [place] | + + + | Organization | [facility] | | | and [place] | [...] [place] | | | | | [address] | | + + + + + Care Team Providers + +------+ + | Care Transportation Security Screener Name | Role | Phone | + +------+ + | Allison Fairchild NP | PCP | | + +------+ + Encounter Details +--------+ + + + + | Date | Type | Department | Care Team | Description | +--------+ + + + + | 04/26/ | Orders Only | [facility] | Tyron Hsu DNP | 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
--- OUTSIDE RECORDS SUMMARY | ~2020-01-30 | XMS | Encounter Summary ---
Demographics + + + | Address | [address] | | | [place] [address] | + + + | Home Phone | | + + + | Preferred Language | Unknown | + + + | Marital Status | | + + + | Oriental Orthodox Affiliation | Unknown | + + + [...] Team Providers + +------+ + | Care Classroom Instructor Name | Role | Phone | + +------+ + | Allison Fairchild WEAVER APPRENTICE | PCP | | + +------+ + [...] | | | | | spondylosis | WEAVER APPRENTICE Good | [address] | | | | | with | Lio | [address] | | | | | radiculopath | [facility] | [place], | | | | | y, lumbar | [address] | [place] | | | | | region | [address] | [address] | | | | | Acute kidney | [facility], | Phone: | | | | | failure, | [place] [address] | [phone] | | | | | unspecified | Phone: | Fax: | | | | | Other | [phone] | [phone] | | | | | disorder of | Fax: | | | | | | circulatory | [phone] | | | | | | system [...] | | | | | | | [place] NEW | | | | | | | PATIENT | | | | | | | LEVEL II [place] | | | | | | | [...] 2019 | Visit | [facility] | [address] | (Primary Dx) | | | | [address] | [address] | | | | | Loop [facility] | [place], [place] | | | | | [address], [address] Floor | [address] | | | | | [place], [place] | [phone] | | | | | [address] | | | | | | [phone] | | | +--------+---------+ + + + [...] findings, assessment and plan. Malou Bo M.D. [address] [facility] Mailcode: P[address] [facility] [address] cMoe DENIS, Debbie - 0 11/02/2018 3:30 PM PST RHEUMATOLOGY NEW VISIT PCP JUAN JOSÉ Juarez [place] [address] [place] [address] Chief Complaint: renal artery abnormalities, evaluate for [...] was instructed to schedule a visit wi [facility] rheumatology Dr Howard, but has been unable to get in until today. Here with his . Traveled here from [place], [place]. Long drive which is uncomfortable for [...] 1,000 mg by mouth four times daily. do-mig-nunik acid-lutein (CENTRUM SILVER) 400-250 mcg oral tablet,chewable [...] ESR ~54 suggestive of a more ac [place] process, although imperfect. No clear signs of [...] [address] [facility] Mailcode: [address] [place] [address] documented in this e ncounter [...] | + + + + + | [facility] | [address] | [place] [address] | | | SERVICES, CORE | DORIAN [...] | + + + + + | [facility] | [address] | [place] [address] | | | SERVICES, CORE | PARK [...] [facility] | | | NIL | by Scientific Intake,[address] | | REG UNIV | | | | Manohar Lacey, [facility] | | PTH - INTFC | | | | [address] | | | | | | [phone]. | | | | | | Melecio [...] (http://www.cdc.gov/mmwr | | | | | | [email or web address] | | | | | | [email or web address].htm), [...] [facility] | [address] | [place], [place] | | | UNIV PTH - INTFC | | [address] | | + + + + + [...] | + + + + + | [facility] | [address] | [place] [address] | | | SERVICES, CORE | DORIAN [...] [facility] | [address] | [place] [address] | | | [place], CORE | PARK [...] | | | LABORATORY | | | TUN[place]IAN | | | SERVICES, | | | [...] the MDRD equation recommended by the | [facility] | | National Kidney Disease Education Program. 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
--- OUTSIDE RECORDS SUMMARY | ~2020-01-30 | XMS | Encounter Summary ---
Demographics + + + | Address | [address] | | | [place] [address] | + + + | Home Phone [...] | Author | [facility] | | | and [place] | + + + | Organization | [facility] | | | and [place] [...] [place] | | | | | [address] | | + + + + + Care Team Providers + +------+ + | Care Computer Numeric Control Setter Name | Role | Phone | + [...] | | | | | | | ID | | | | | | | ANESTHESIA | | | | | | | UPPER GI | | | | | | | ENDOSCOPIC | | | | | | | PX ERCP ID | | | | | | | [...] + | 02/12/ | Hospital | [facility] | Dc Naik MD | | | 2018 | Encounter | MED CTR XRAY [address] | [address], [place] | | | | | [place] | [address] [place], [place] | | | | | [place] [address] | [address] | | | | | [phone] | | | +--------+ + + + [...]
--- OUTSIDE RECORDS SUMMARY | ~2020-01-30 | XMS | Encounter Summary ---
Demographics + + + | Address | [address] | | | [place] [address] | + + + | Home Phone [...] Author | [facility] | | | and [place] | + + + | Organization | [facility] | | | and [place] [...] [place] | | | | | [address] | | + + + + + Care Team Providers + +------+ + | Care Oil Expeller Name | Role | Phone | + [...] 2018 | | GASTROENTEROLOGY | [address], [place] | | | | | [address] [place] | [address] [place], [place] | | | | | [address] [place], [place] | [address] | | | | | [address] | | | | | | [phone] | | | +--------+ + + + [...]
--- OUTSIDE RECORDS SUMMARY | ~2020-01-30 | XMS | Encounter Summary ---
Demographics + + + | Address | [address] | | | [place] [address] | + + + | Home Phone [...] + | Author | [facility] | | | and [place] | + + + | Organization | [facility] | | [...] [place] | | | | | [address] | | + + + + + Care Team Providers + +------+ + | Care Assistant Professor Of Religion Name | Role | Phone | + +------+ + PCP | Unavailable | + +------+ + Encounter Details +--------+ + + + + | Date | Type | Department | Care Team | Description | +--------+ + + + + | 12/18/ | Hospital | [facility] | Bertha Bentley MD | Incisional hernia | | 2015 - | Encounter | [facility] [address] | [address] | without mention of | | | | [address] | [address] [place], [place] | obstruction or | | 12/21/ | | [place], [place] | [address] | augie | | 2014 | | [address] | | | | | | [phone] | | | +--------+ + + + [...] 1343 Date of Service: 12/21/141340 Status: Addendum Infantry Unit Leader: Bertha Bentley MD (Physician) Related Notes: Original Note by Bertha Bentley MD (Physician) filed at 12/21/14 1342 [facility] Service: General Surgery Discharge Summary Date [...] - INCISIONAL; Surgeon: Bertha Bentley MD; Location: [facility] MAIN OR; Service: General; Laterality: N/A; Incisional hernia repair N/A 07/03/2014 Procedure: HERNIA REPAIR - INCISIONAL - COMPLEX; Surgeon: Bertha Bentley MD; Location: [facility] MAIN OR; Service: General; Laterality: N/A; open - recurrent Cosmetic surgery Multiple facial surgeries for 24 fractures. Hardware removal 06/2013 12 screws and plate in R H[place], [place] Incisional hernia repair N/A 12/18/2014 Procedure: HERNIA REPAIR - INCISIONAL - SIMPLE; Surgeon: Bertha Bentley MD; Location: [facility] MAIN OR; Service: General; Laterality: N/A; [...] file. Follow up: BECKIE Daniel [address] [place] [address] [place] [address] Medication List START taking these medications sulfamethoxazole-trimethoprim [...] the prescriptions that you need to pickle solution maker. You may get the following medications from [...] 12/21/149 Date of Service: 12/21/141438 Status: Signed Infantry Unit Leader: Kerrie Nieves RN (Registered Nurse) Discharge patient to home Instructions given States understanding Prescription given Kerrie Nieves RN 12/21/2014 2:39 PM ertha Guillen MD - 2014 7:40 AM PDTFormatting of this note might be different from the leidy ginal. Progress Notes by Bertha Bentley MD at 12/20/14 0761 Author: Bertha Bentley MD Service: General Surgery Author Type: Physician Filed: 12/20/14 0741 Date of Service: 12/20/14739 Status: Signed Infantry Unit Leader: Bertha Bentley MD (Physician) [facility] Service: General Surgery Progress Note POD: [...] Shell Levin RN Service: (none) Author Type: Supplier Diversity Director Filed: 12/19/14945 Date of Service: 12/19/14941 Status: Signed Infantry Unit Leader: Shell Levin RN (Supplier Diversity Director) Met with Donna to discuss DC plans. They plan to return home in [place]. They h ave a w/c, walker, and cane at home. They deny OP medical services. 12/19/14922 Discharge Planning Evaluation Admitting Diagnosis Incisional hernia Readmission No Living Arrangements Spouse/significant other Support Systems Spouse/significant other;Buddhist/katty community;Family members Type of Residence Private residence [...] Plan Yes Name of Pharmacy [facility] [place] Previous home health equipment No Vascular access device No Ostomy/Drains/Appliances No Anticipated Disposition Facility Type Home Medicare Important Message (KIKE) Not applicable Met with: Reza and his and discussed discharge planning, Pt is a 54 y.o., male Patient's PCP is: PACO ROBERSON Patient's insurance: E [employer] Coverage concerns: none Medication coverage/concerns: [employer] [...] 12/19/14827 Date of Service: 12/19/14826 Status: Signed Infantry Unit Leader: Bertha Bentley MD (Physician) [facility] Service: General Surgery Progress Note POD: [...] 12/18/141429 Date of Service: 12/18/141429 Status: Signed Infantry Unit Leader: Sherri Gilmore RPH (Pharmacist) Renal Dosing Monitoring: [...] 12/18/141428 Date of Service: 12/18/141428 Status: Signed Infantry Unit Leader: Sherri Gilmore RPH (Pharmacist) Renal Dosing Monitoring: [...] a clear | | | synthetic mesh. Food Quality Technician sections are submitted in cassette | | | (A1). FM MICROSCOPIC EXAMINATION: Histologic sections of all | | | submitted blocks are examined by light microscopy. These findings, | | | together with the gross examination, support the pathologic diagnosis. | | | PERFORMING LABORATORY: Professional interpretation and technical | | | preparation was performed by [employer], [facility] | | | [address] [address] (Insurance Clerk: | | | Renaldo Love M.D.; [facility]#: [id number]). Diagnostician: Renaldo Levy | | | Ivan [...] | | EXTERNAL | | | | [facility] [address] | | LAB | | | | [address];[place] [address] | | | | + + + + + + | Antibody | NEGATIVE | | EXTERNAL | | | Screen | | | LAB | | + + + + + + | Antibody | Testing performed at | | EXTERNAL | | | Screen | [facility] | | LAB | | | | [address];[place] [address] | | | | + + + + + + | BB BAND | [id number] | | EXTERNAL | | | | | | LAB | | + + + + + + | BB BAND | Testing performed at | | EXTERNAL | | | | [facility] | | LAB | | | | [address];[place] [address] | | | | + + + [...] [facility];[address] | K/uL | LAB | | | | [address];[place] | | | | | | [address] | | | | + + + + + + | Red Blood | 4.40Comment: Testing | 4.20 - 5.70 | EXTERNAL | | | Cells | performed at [facility];[address] | M/uL | LAB | | | Counted | [address];[place] | | | | | | [address] | | | | + + + + + + | Hemoglobin | 13.4Comment: Testing | 13.2 - 17.0 | EXTERNAL | | | | performed at [facility];888 | g/dL | LAB | | | | [address];[place] | | | | | | [address] | | | | + + + + + + | Hematocrit, | 40.1Comment: Testing | 39.0 - 50.0 % | EXTERNAL | | | POC | performed at [facility];[address] | | LAB | | | | [address];[place] | | | | | | [address] | | | | + + + + + + | MCV | 91.0Comment: Testing | 80.0 - 100.0 fl | EXTERNAL | | | | performed at [facility];[address] | | LAB | | | | [address];[place] | | | | | | [address] | | | | + + + + + + | MCH | 30.5Comment: Testing | 27.0 - 34.0 pg | EXTERNAL | | | | performed at [facility];[address] | | LAB | | | | [address];[place] | | | | | | [address] | | | | + + + + + + | MCHC | 33.5Comment: Testing | 32.0 - 35.5 | EXTERNAL | | | | performed at [facility];888 | g/dL | LAB | | | | [address];[place] | | | | | | [address] | | | | + + + + + + | RDW-CV | 48.1Comment: Testing | 37 - 53 fl | EXTERNAL | | | | performed at [facility];[address] | | LAB | | | | [address];[place] | | | | | | [address] | | | | + + + + + + | Platelet | 318Comment: Testing | 150 - 400 K/uL | EXTERNAL | | | Count | performed at [facility];[address] | | LAB | | | Plasma | [address];[place] | | | | | | [address] | | | | + + + + + + | MPV | 8.7Comment: Testing | fl | EXTERNAL | | | | performed at [facility];[address] | | LAB | | | | [address];[place] | | | | | | [address] | | | | + + + + + + | Differentia | AUTOMATEDComment: | | EXTERNAL | | | l Type | Testing performed at | | LAB | | | | [facility];[address] | | | | | | [address];[place] [address] | | | | + + + + + + | % Segmented | 57.40Comment: Testing | % | EXTERNAL | | | | performed at [facility];[address] | | LAB | | | Neutrophils | [address];[place] | | | | | | [address] | | | | + + + + + + | % | 29.91Comment: Testing | % | EXTERNAL | | | Lymphocytes | performed at [facility];[address] | | LAB | | | | [address];[place] | | | | | | [address] | | | | + + + + + + | % Monocytes | 8.18Comment: Testing | % | EXTERNAL | | | | performed at [facility];[address] | | LAB | | | | [address];[place] | | | | | | [address] | | | | + + + + + + | % | 3.18Comment: Testing | % | EXTERNAL | | | Eosinophils | performed at [facility];[address] | | LAB | | | | [address];[place] | | | | | | [address] | | | | + + + + + + | % Basophils | 1.33Comment: Testing | % | EXTERNAL | | | | performed at [facility];[address] | | LAB | | | | [address];[place] | | | | | | [address] | | | | + + + + + + | Absolute | 5.80Comment: Testing | 1.90 - 7.40 | EXTERNAL | | | Segmented | performed at [facility];888 | K/uL | LAB | | | Neutrophils | [address];[place] | | | | | | [address] | | | | + + + + + + | Absolute | 3.02Comment: Testing | 1.00 - 3.90 | EXTERNAL | | | Lymphocytes | performed at [facility];888 | K/uL | LAB | | | | [address];[place] | | | | | | [address] | | | | + + + + + + | Absolute | 0.83 (H)Comment: Testing | 0.00 - 0.80 | EXTERNAL | | | Monocytes | performed at [facility];888 | K/uL | LAB | | | | [address];[place] | | | | | | [address] | | | | + + + + + + | Absolute | 0.32Comment: Testing | 0.00 - 0.50 | EXTERNAL | | | Eosinophils | performed at [facility];888 | K/uL | LAB | | | | [address];[place] | | | | | | [address] | | | | + + + + + + | Absolute | 0.13 (H)Comment: Testing | 0.00 - 0.10 | EXTERNAL | | | Basophils | performed at [facility];888 | K/uL | LAB | | | | [address];[place] | | | | | | [address] | | | | + + + [...] [place] | | | | | | [address] | | | | + + + + + + | K | 3.6Comment: Testing | 3.5 - 4.9 | EXTERNAL | | | | performed at [facility];888 | mmol/L | LAB | | | | [address];[place] | | | | | | [address] | | | | + + + + + + | Cl | 105Comment: Testing | 99 - 109 mmol/L | EXTERNAL | | | | performed at [facility];[address] | | LAB | | | | [address];[place] | | | | | | [address] | | | | + + + + + + | CO2 | 25Comment: Testing | 23 - 32 mmol/L | EXTERNAL | | | | performed at [facility];[address] | | LAB | | | | [address];[place] | | | | | | [address] | | | | + + + + + + | Anion Gap | 12Comment: Testing | 5 - 20 mmol/L | EXTERNAL | | | | performed at [facility];[address] | | LAB | | | | [address];[place] | | | | | | [address] | | | | + + + + + + | Glucose, | 113 (H)Comment: Testing | 65 - 99 mg/dL | EXTERNAL | | | Fasting | performed at [facility];[address] | | LAB | | | | [address];[place] | | | | | | [address] | | | | + + + + + + | BUN | 19Comment: Testing | 8 - 25 mg/dL | EXTERNAL | | | | performed at [facility];[address] | | LAB | | | | [address];[place] | | | | | | [address] | | | | + + + + + + | Creatinine | 0.92Comment: Testing | 0.70 - 1.30 | EXTERNAL | | | | performed at [facility];888 | mg/dL | LAB | | | | [address];[place] | | | | | | [address] | | | | + + + + + + | BUN/Creatin | 21Comment: Testing | | EXTERNAL | | | ine Ratio | performed at [facility];[address] | | LAB | | | | [address];[place] | | | | | | [address] | | | | + + + + + + | Calcium | 8.7Comment: Testing | 8.5 - 10.5 | EXTERNAL | | | | performed at [facility];888 | mg/dL | LAB | | | | [address];[place] | | | | | | [address] | | | | + + + [...] at [facility];[address] | | | | | | [facility];[place] [address] | | | | + + + [...]
--- OUTSIDE RECORDS SUMMARY | ~2020-01-30 | XMS | Encounter Summary ---
Demographics + + + | Address | [address] | | | [place] [address] | + + + | Home Phone [...] Author | [facility] | | | and [place] | + + + | Organization | [facility] | | | and [place] [...] [place] | | | | | [address] | | + + + + + Care Team Providers + +------+ + | Care Care Services Manager Name | Role | Phone | + +------+ + | Allison Fairchild NP | PCP | | + +------+ + Encounter Details +--------+ + + + + | Date | Type | Department | Care Team | Description | +--------+ + + + + | 03/31/ | Orders Only | [facility] | [place] | 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
--- OUTSIDE RECORDS SUMMARY | ~2020-01-30 | XMS | Encounter Summary ---
Demographics + + + | Address | [address] | | | [place] [address] | + + + | Home Phone [...] | [facility] | | | and [place] | + + + | Organization | [facility] | [...] [place] | | | | | [address] | | + + + + + Care Team Providers + +------+ + | Care Icing Maker Name | Role | Phone | [...] | | | | | | [address] [place], [place] | | | | | | [address] | | | | | | [phone] | | | +--------+ + + + [...]
--- OUTSIDE RECORDS SUMMARY | ~2020-01-30 | XMS | Encounter Summary ---
Demographics + + + | Address | [address] | | | [place] [address] | + + + | Home Phone [...] [facility] | | | and [place] | + + + | Organization | [facility] | [...] [place] | | | | | [address] | | + + + + + Care Team Providers + +------+ + | Care Ribbon Lap Machine Tender Name | Role | Phone [...] | | | | dysphagia | | [place] [address] | | | | | Other | | Phone: | | | | | dysphagia | | [phone] | | | | | [R13.19]Unsp | | Fax: | | | | | ecified | | [phone] | | | | | abdominal | | | | | | | pain [R10.9] | | | +--------+--------+ + + + + Encounter Details +--------+ + + + + | Date | Type | Department | Care Team | Description | +--------+ + + + + | 10/23/ | Hospital | [facility] | Adrian Aponte MD | Abdominal pain, | | 2016 | Encounter | [facility]TRA OP | [address] | generalized (Primary | | | | [address] | [place] | Dx); Dysphagia, | | | | [place], [place] | [address] | unspecified | | | | [address] | [phone] | dysphagia; Early | | | | [phone] | | satiety | +--------+ + + [...] the physician who did your procedure at [phone] if you have any questions or experience any of the following: ? Increasing abdominal pain, nausea, or vomiting. ? Chills and fever over 101F. ? New abdominal swelling or bloating. ? Signs of rectal bleeding (black or red stool). If you cannot get a hold of your physician, then call the [facility] [phone] . If necessary, report to the Emergency Department at [facility]. Quit smoking: If you smoke or have [...] 10/23/2015 | [facility]OVATION | | 7:35 AMMRN: [id number] #: [id number] of : | | | 1960Admit Type: AmbulatoryAge: 54Room: [facility] 02Gender: MaleNote | | | Status: FinalizedAttending MD: Adrian Aponte, [facility]cedure: | | | Upper GI endoscopyIndications: Epigastric abdominal pain, | | | DysphagiaProviders: Adrian Aponte MD, [facility], | | | RN, Bailey Borrego, [...] the anesthesiologist and the | | | satellite technician in the pre-procedure area in the [...] | | | AMScope Out: 8:09:58 AM [facility], [address] | | [place] [address] | | | patient. Return to normal [...] |Scope Out: 8:09:58 AM | | | [facility], [address] [place], [place] | | | [address] | | + + -+ + +---------+ [...] - | | | Negative for dysplasia. [facility]:C2NR GROSS DESCRIPTION: | | | Received [...] | and slide preparation were performed by [employer], [address] | | [facility] [address], [place] [address] (Grinder Operator Automatic: Alex | | | Trevin Hathaway CLIA#: [id number]). Professional interpretation was | | | performed by [employer], [facility], | | | [address], [place] [address] (Grinder Operator Automatic: | | | Natan Carson M.D.; CLIA#: [id number]). Diagnostician: | | | Natan Carson MD [...]
--- OUTSIDE RECORDS SUMMARY | ~2020-01-30 | XMS | Clinical Summary ---
Demographics + + + | Address | [address] | | | [place] [address] | + + + | Home Phone [...] + + | Author | [facility] (Historical as of | | | 04-23-19) | + + + | Organization | [facility] (Historical as of | | | 04-23-19) [...] [place] | | | | | [address] | | + + + + + Care Team Providers + +------+ + | Care Quality Project Manager Name | Role | Phone [...] 2012 for which he was flown to [facility] | | and had multiple injuries to [...] | 02/03/ | PCDG1 | | - [id number]: Qty: 1 | | | | | 2014 | / | | on 03/27/2014 by Mc, | | | | | | /[id number] | | MD Jamie | | | | | | 5 | + +------+--------+ +--------+--------+--------+ | Mesh Hernia [employer] Kugel | | N/A: | [place] | | 05/03/ | [id number] | | Oval Large - | | Abdome | | | 2015 | 2 / | | [id number]: Qty: 1 on | | n | | | | /HUVH0 | | 07/03/2014 by Jamie Bentley, | | | | | | 417 | | | | | | | | | + +------+--------+ +--------+--------+--------+ | Mesh Ventrio Oval Eptfe | | | [facility] | | 05/07/ | [id number] | | Xlarge - [id number]: | | | ick | | 2016 | 8 | | Qty: 1 on 12/18/2014 by | | | | | | /[id number] | | Jamie Bentley MD | | | | | | 18 | | | | | | | | /[id number] | | | | | | | | 608 | + +------+--------+ +--------+--------+--------+ | Mesh Prol [id number] - | | | JJHCS | | 07/07/ | PMH / | | SnaImplanted: Qty: 1 on | | | ETHICON | | 2020 | / | | 11/10/2016 by Jamie Bentley, | | | ENDOSCOPY - | | | [id number] | | | | | ETHE | [...] | | [facility] | | 05/06/ | [id number] | | 4"X6" - [id number]: | | | ick | | 2014 | 0 / | | Qty: 1 on 03/27/2014 by | | | | | | /ANNAHO | | Jamie Bentley MD | | | | | | 760 | + +------+------+ +--------+--------+--------+ | Mesh Hernia Com[employer]ix Kugel | | | [place] | | | [id number] | | Oval Large - | | | | | | 2 | | [id number]: Qty: 1 on | | | | | | /[id number] | | 12/18/2014 by Jamie Bentley, | [...] +------+-------+ + | MEDICAID | [place] | [id number] | | | [address] | | | N | | | | [place] | | | [place] | | | | [address] | | | [employer]ER [employer] | | | | | + +--------+ [...] | 1961 | [phone] | [place] [address] | | | [place] | | | [address] | | + +--------+ +--------+ + +
--- OUTSIDE RECORDS SUMMARY | ~2020-01-30 | XMS | Encounter Summary ---
Demographics + + + | Address | [address] | | | [place] [address] | + + + | Home Phone [...] + + + | Author | [facility] | + + + | Organization | [facility] | + + + | Address | Unknown | + + + | Phone | Unavailable | + + + Support + + +---------+ + | Name | Relationship | Address | Phone | + + +---------+ + | Maria Isabel Cespedes | ECON | Unknown | | + + +---------+ + Care Team Providers + +------+ + | Care Payroll Processor Name | Role | Phone | + +------+ + | Allison Fairchild NP | PCP | | + +------+ + Encounter Details +--------+ + + + + | Date | Type | Department | Care Team | Description | +--------+ + + + + | 02/22/ | Procedure | Diagnostic Imaging | | | | 2019 | Pass | Services at [facility] | | | | | | [address] | | | | | | Vonda Khanna [facility] | | | | | | [address] | | | | | | [place], [place] | | | | | | [address] | | | | | | [phone] | | | +--------+ + + + [...]
--- OUTSIDE RECORDS SUMMARY | ~2020-01-30 | XMS | Encounter Summary ---
Demographics + + + | Address | [address] | | | [place] [address] | + + + | Home Phone [...] + + | Author | and [facility] | | | and [place] | + + + | Organization | and [facility] | | | and [place] | [...] [place] | | | | | [address] | | + + + + + Care Team Providers + +------+ + | Care Manager Trade Marketing Name | Role | Phone | + [...] [place] | | | | | [address] | [address] | | | | | [phone] | [phone] | | | | | | | [...] | | | Serum | performed at [facility], [address] | mOsm/kg | LAB | | | | [address] [place], [place] | | | | | | [address] | | | | + + + [...]
--- OUTSIDE RECORDS SUMMARY | ~2020-01-30 | XMS | Clinical Summary ---
Demographics + + + | Address | [address] | | | [place] [address] | + + + | Home Phone [...] + | Author | [facility] [employer] (Historical as of | | | 04-23-19) | + + + | Organization | [facility] [employer] (Historical as of | | | 04-23-19) [...] [place] | | | | | [address] | | + + + + + Care Team Providers + +------+ + | Care Boat Crew Deck Hand Name | Role | Phone | [...] 2012 for which he was flown to [facility] | | and had multiple injuries [...] | 02/03/ | PCDG1 | | - [id number]: Qty: 1 | | | | | 2014 | / | | on 03/27/2014 by Mc, | | | | | | /[id number] | | MD Jamie | | | | | | 5 | + +------+--------+ +--------+--------+--------+ | Mesh Hernia Composix Kugel | | N/A: | DAVOL | | 05/03/ | [id number] | | Oval Large - | | Abdome | | | 2015 | 2 / | | [id number]: Qty: 1 on | | n | | | | /HUVH0 | | 07/03/2014 by Jamie Bentley, | | | | | | 417 | | | | | | | | | + +------+--------+ +--------+--------+--------+ | Mesh Ventrio Oval Eptfe | | | [facility] | | 05/07/ | [id number] | | Xlarge - [id number]: | | | ick | | 2016 | 8 | | Qty: 1 on 12/18/2014 by | | | | | | /[id number] | | Jamie Bentley MD | | | | | | 18 | | | | | | | | /HUYI1 | | | | | | | | 608 | + +------+--------+ +--------+--------+--------+ | Mesh Prol [id number] - | | | JJHCS | | 07/07/ | PMH / | | SnaImplanted: Qty: 1 on | | | ETHICON | | 2020 | / | | 11/10/2016 by Jamie Bentley, | | | ENDOSCOPY - | | | [id number] | | | | | ETHE | [...] | | [facility] | | 05/06/ | [id number] | | 4"X6" - [id number]: | | | ick | | 2014 | 0 / | | Qty: 1 on 03/27/2014 by | | | | | | /ANNAHO | | Jamie Bentley MD | | | | | | 760 | + +------+------+ +--------+--------+--------+ | Mesh Hernia Com[employer]ix Kugel | | | [place] | | | [id number] | | Oval Large - | | | | | | 2 | | [id number]: Qty: 1 on | | | | | | /[id number] | | 12/18/2014 by Jamie Bentley, | [...] +------+-------+ + | MEDICAID | [place] | [id number] | | | [address] | | | N | | | | [place] | | | [place] | | | | [address] | | | [employer] | | | | | + +--------+ [...] | 1961 | [phone] | [place] [address] | | | [place] | | | [address] | | + +--------+ +--------+ + +
--- OUTSIDE RECORDS SUMMARY | ~2020-01-30 | XMS | Encounter Summary ---
Demographics + + + | Address | [address] | | | [place] [address] | + + + | Home Phone [...] | Author | [facility] | | | and Alexana | + + + | Organization | [facility] | | | and Alexana | + + + | Address | Unknown | + + + | Phone | Unavailable | + + + Support + + + + + | Name | Relationship | Address | Phone | + + + + + | Teoodra Cespedes | ECON | [address] | | | | | [place] | | | | | [address] | | + + + + + Care Team Providers + +------+ + | Care Chain Puller Name | Role | Phone | + [...] | | | | | | | [place] | | | | | | | ANESTHESIA | | | | | | | UPPER GI | | | | | | | ENDOSCOPIC | | | | | | | PX ERCP [place] | | | | | | | [...] | | | | | [address] | [address] [place] | | | | | [place], [place] | [place] [address] | | | | | [address] | [phone] | | | | | [phone] | | | +--------+ + + + [...] 02/12/18 1207 by | | caitlin | ccmr-rcj-feardu catheter system; | Rosy Mcmanus, | Shayna [...]
--- OUTSIDE RECORDS SUMMARY | ~2020-01-30 | XMS | Encounter Summary ---
Demographics + + + | Address | [address] | | | [place] [address] | + + + | Home Phone [...] | Author | [facility] | | | and Alexana | + + + | Organization | [facility] | [...] [place] | | | | | [address] | | + + + + + Care Team Providers + +------+ + | Care Solid Waste Disposal Manager Name | Role | Phone | [...] | | | | | | [address] [place], [place] | | | | | | [address] | | | | | | [phone] | | | +--------+ + + + [...]
--- OUTSIDE RECORDS SUMMARY | ~2020-01-30 | XMS | Encounter Summary ---
Demographics + + + | Address | [address] | | | [place] [address] | + + + | Home Phone | | + + + | Preferred Language | Unknown | + + + | Marital Status | | + + + | Zoroastrianism Affiliation | Unknown | + + + | Race | White | + + + | Ethnic Group | Not or | + + + Author + + + | Author | [facility] | + + + | Organization | [facility] | + + + | Address | Unknown | + + + | Phone | Unavailable | + + + Support + + +---------+ + | Name | Relationship | Address | Phone | + + +---------+ + | Maria Isabel Cespedes | ECON | Unknown | | + + +---------+ + Care Team Providers + +------+ + | Care Regulator Pin Inserter Name | Role | Phone | + +------+ + | Allison Fairchild NP | PCP | | + +------+ + Encounter Details +--------+ + + + + | Date | Type | Department | Care Team | Description | +--------+ + + + + | 04/26/ | Documentati | [facility] | Jaspal Stevenson, | | | 2013 | on | Center at [facility] [address] | MD [address] | | | | | [address] | [place], [place] | | | | | Mailcode: [facility] | [address] | | | | | [facility] | [phone] | | | | | and Shyam, | | | | | | | | | | | | Floor [place], [place] | | | | | | [address] | | | | | | [phone] | | | +--------+ + + + [...]
--- OUTSIDE RECORDS SUMMARY | ~2020-01-30 | XMS | Encounter Summary ---
Demographics + + + | Address | [address] | | | [place] [address] | + + + | Home Phone [...] + | Author | [facility] | | | and [place]ana | + + + | Organization | [facility] | | | and [...] [place] | | | | | [address] | | + + + + + Care Team Providers + +------+ + | Care Gravel Screener Name | Role | Phone | [...] | | | | | | [place] | | | | | | | ANESTHESIA | | | | | | | UPPER GI | | | | | | | ENDOSCOPIC | | | | | | | PX ERCP [place] | | | | | | [...] + | 02/12/ | Hospital | [facility] | Dc Naik MD | Obstruction of | | 2018 | Encounter | MED CTR MP INTRA OP | [address], [place] | biliary stent, | | | | [address] | [address] [place], [place] | subsequent encounter | | | | [place], [place] | [address] | (Primary Dx) | | | | [address] | | | | | | [phone] | | | +--------+ + + + [...] You can't be awakened Date Last Reviewed: 06/24/201619990456-0199 [employer]. [address] [place] [address]. All righ ts reserved. This information is [...] 02/12/2018 | PROVATION | | 11:06 AMMRN: [id number] #: [id number] of : | | | 1960Admit Type: AmbulatoryAge: 57Room: [facility] 01Gender: MaleNote | | | Status: FinalizedAttending MD: cD Naik [facility]ISErocedure: | | | ERCPIndications: Biliary stent removalProviders: [...] | | | the anesthesiologist and the marine electronics technician in the endoscopy suite. | | [...] Scope In: 11:27:31 AMScope Out: 11:31:38 AM [facility] | | | [facility], [address] [place] [address] | | | [phone] | | | - Discharge patient to [...] |Scope Out: 11:31:38 AM | | | [facility], [address] [place] [address] | | | [address] | | + + -+ + +---------+ [...]
--- OUTSIDE RECORDS SUMMARY | ~2020-01-30 | XMS | Encounter Summary ---
Demographics + + + | Address | [address] | | | [place] [address] | + + + | Home Phone [...] | Author | [facility] | | | and [place]ana | + + + | Organization | [facility] | [...] [place] | | | | | [address] | | + + + + + Care Team Providers + +------+ + | Care Judo Instructor Name | Role | Phone | [...] | | | [place] | [place] | | | | | [address] | [address] | | | | | [phone] | | | | | | | [...] EXTERNAL | | | | performed at [facility];[address] | | LAB | | | | [address] | | | | | | [place] [address] | | | | + + + [...]
--- OUTSIDE RECORDS SUMMARY | ~2020-01-30 | XMS | Encounter Summary ---
Demographics + + + | Address | [address] | | | [place] [address] | + + + | Home Phone [...] Author | [facility] | | | and [place] | + + + | Organization | [facility] [...] [place] | | | | | [address] | | + + + + + Care Team Providers + +------+ + | Care Wire Technician Name | Role | Phone | [...] | | | | [address] [facility] | [place], [place] | | | | | [address] [place] | [address] | | | | | [address] | [phone] | | | | | [phone] | | | +--------+--------+ + + + [...]
--- OUTSIDE RECORDS SUMMARY | ~2020-01-30 | XMS | Encounter Summary ---
Demographics + + + | Address | [address] | | | [place] [address] | + + + | Home Phone [...] Author | [facility] | | | and [place] | + + + | Organization | [facility] | [...] [place] | | | | | [address] | | + + + + + Care Team Providers + +------+ + | Care Evaporator Supervisor Name | Role | Phone | [...] + | 10/26/ | Telephone | [facility] | Adrian Aponte MD | Other | | 2016 | | GASTROENTEROLOGY | [address] | | | | | [address] | [place], [place] | | | | | [address] [place] | [address] | | | | | [address] | [phone] | | | | | [phone] | | | +--------+ + + + [...]
--- OUTSIDE RECORDS SUMMARY | ~2020-01-30 | XMS | Encounter Summary ---
Demographics + + + | Address | [address] | | | [place] [address] | + + + | Home Phone | | + + + | Preferred Language | Unknown | + + + | Marital Status | | + + + | Episcopal Affiliation | 1013 | + + + | Race | Unknown | + + + | Ethnic Group | Unknown | + + + Author + + + | Author | [facility] | | | and [place] | + + + | Organization | [facility] | [...] [place] | | | | | [address] | | + + + + + Care Team Providers + +------+ + | Care Licensing Manager Name | Role | Phone | [...] + + | 09/23/ | Telephone | [facility] | Anival Stevenson MD | Results | | 2020 | | GENERAL SURGERY [address] | [address] | | | | | [address] | [address] [place], [place] | | | | | [place], [place] | [address] | | | | | [address] | | | | | | [phone] | | | +--------+ + + + [...]
--- OUTSIDE RECORDS SUMMARY | ~2020-01-30 | XMS | Encounter Summary ---
[...] Author | [facility] | | | and [place] | + + + | Organization | [facility] | | [...] [place] | | | | | [address] | | + + + + + Care Team Providers + +------+ + | Care Telephone Lineman Name | Role | Phone | + [...] | | | | dysphagia | | [place] [address] | | | | | Other | | Phone: | | | | | dysphagia | | [phone] | | | | | [R13.19]Unsp | | Fax: | | | | | ecified | | [phone] | | | | | abdominal | | | | | | | pain [R10.9] | | | +--------+--------+ + + + + Encounter Details +--------+ + + + + | Date | Type | Department | Care Team | Description | +--------+ + + + + | 10/23/ | Hospital | [facility] | Adrian Aponte MD | Abdominal pain, | | 2016 | Encounter | MED CTR MP INTRA OP | [address] | generalized (Primary | | | | [address] | [place] | Dx); Dysphagia, | | | | [place], [place] | [address] | unspecified | | | | [address] | [phone] | dysphagia; Early | | | | [phone] | | satiety | +--------+ + + [...] the physician who did your procedure at [phone] if you have any questions or experience any of the following: ? Increasing abdominal pain, nausea, or vomiting. ? Chills and fever over 101F. ? New abdominal swelling or bloating. ? Signs of rectal bleeding (black or red stool). If you cannot get a hold of your physician, then call the [facility] [phone] . If necessary, report to the Emergency Department at [facility]. Quit smoking: If you smoke or [...] 10/23/2015 | PROVATION | | 7:35 AMMRN: [id number] #: [id number] of : | | | 1960Admit Type: AmbulatoryAge: 54Room: [facility] 02Gender: MaleNote | | | Status: FinalizedAttending MD: Adrian Aponte, [facility]cedure: | | | Upper GI endoscopyIndications: Epigastric abdominal pain, | | | DysphagiaProviders: Adrian Aponte MD, [facility], | | | RN, Bailey Borrego, TechnicianReferring [...] the anesthesiologist and the | | | urinalysis technician in the pre-procedure area in the [...] | | | AMScope Out: 8:09:58 AM [facility], [address] | | | [place] [address] | | | patient. Return to normal [...] |Scope Out: 8:09:58 AM | | | [facility], [address] [place], [place] | | | [address] | | + + -+ + +---------+ [...] - | | | Negative for dysplasia. [facility]:C2NR GROSS DESCRIPTION: | | | Received in [...] | and slide preparation were performed by [employer], [address] | | [facility] [address], [place] [address] (Gang Saw Operator: Alex | | | Trevin Hathaway CLIA#: [id number]). Professional interpretation was | | | performed by [employer], [facility], | | | [address], [place] [address] (Gang Saw Operator: | | | Natan Carson M.D.; CLIA#: [id number]). Diagnostician: | | | Natan Carson MD [...]
--- OUTSIDE RECORDS SUMMARY | ~2020-01-30 | XMS | Encounter Summary ---
Demographics + + + | Address | [address] | | | [place] [address] | + + + | Home Phone [...] | Author | [facility] | | | and [place] | + + + | Organization | 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
--- OUTSIDE RECORDS SUMMARY | ~2020-01-30 | XMS | Encounter Summary ---
Demographics + + + | Address | [address] | | | [place] [address] | + + + | Home Phone | | + + + | Preferred Language | Unknown | + + + | Marital Status | | + + + | Restoration Affiliation | 1013 | + + + | Race | Unknown | + + + | Ethnic Group | Unknown | + + + Author + + + | Author | [facility] | | | and [place] | + + + | Organization | [facility] | | [...] [place] | | | | | [address] | | + + + + + Care Team Providers + +------+ + | Care Statue Maker Name | Role | Phone | [...] + + | 08/11/ | Telephone | [facility] | Jamie Bentley MD | Referral | | 2019 | | GENERAL SURGERY [address] | [address] | | | | [address] | [address] [place], [place] | | | | | [place], [place] | [address] | | | | | [address] | | | | | | [phone] | | | +--------+ + + + [...]
--- OUTSIDE RECORDS SUMMARY | ~2020-01-30 | XMS | Encounter Summary ---
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 1960 Admit date: 09/06/2019 Discharge [...] bruising may occur. It appears as a qlltu-xly-vvnv area around the incision and indic ates [...] suspect a problem. Our office number is [phone] documented in this encounter Medications at Time [...] Stevenson MD - 09/12/2019 11:01 AM PST [facility] Service: General Surgery Progress Note Hospital Day: [...] Pelayo MD - 09/11/2019 10:48 AM PST [facility] Service: General Surgery Progress Note Hospital Day: [...] MD - 09/10/2019 11:17 AM PS T [facility] Service: General Surgery Progress Note Hospital Day: [...] Groups: infusion therapy, home Community Agency Name: [employer] Other Resources: Discharge Transportation Transportation Needs: family or friend will provide Notes: Pt from home and was on IV ABX with [employer] [facility] home infusion. I called [facility] and Pt [...] Pelayo MD - 09/09/2019 10:23 AM PST [facility] Service: General Surgery Progress Note Hospital Day: [...] s Caregiver: (P) spouse/significant other, homecare agency (specify)([employer] for h ome IVAB) Functional Status: ambulatory [...] Contact Information: Name: Araiza (P) Phone: P) [phone] Pager: Fax: DC Needs Assessment Current Outpt/Agency/Support [...] Steps: Notes: Patient discharged on 07/29/2019 with [employer] for home IVAB. CM to follow for [...] Pelayo MD - 09/08/2019 8:17 AM PST [facility] Service: General Surgery Progress Note Hospital Day: [...] Pelayo MD - 09/07/2019 12:46 PM PST [facility] Service: General Surgery Progress Note Hospital Day: [...] | | | | | | MDRD IDVA traceable | | | | | | equation.Testing | | | | | | performed at [facility], [address] | | | | | | [facility], | | | | | | [place] [address] | | | | + + + + + + + + | Specimen | + + | Blood | + + + + + + + | Performing | Address | City/State/Zipcode | Phone Number | | Organization | | | | + + + + + | [facility] | [address] | [place] [address] | [phone] | + + + + + CBC [...] [facility] | | | | performed at [facility], [address] | | LABORATORY | | | | [place], | | | | | | [place] [address] | | | | + + + + + + + + | Specimen | + + | Blood | + + + + + + + | Performing | Address | City/State/Zipcode | Phone Number | | Organization | | | | + + + + + | [facility] | [address] | [place] [address] | [phone] | + + + + + POC [...] [facility];[address] | | LABORATORY | | | | [place], [place] | | | | | | [address] | | | | + + + + + + + + | Specimen | + + | | + + + + + + + | Performing | Address | City/State/Zipcode | Phone Number | | Organization | | | | + + + + + | [facility] | [address] [facility] | [place] [address] | [phone] | + + + + + CBC [...] [facility] | | | | performed at [facility], [address] | | LABORATORY | | | | [place], | | | | | | [place] [address] | | | | + + + + + + + + | Specimen | + + | Blood | + + + + + + + | Performing | Address | City/State/Zipcode | Phone Number | | Organization | | | | + + + + + | [facility] | [address] | [place] [address] | [phone] | + + + + + Basic [...] | >60Comment: GFR <60: | >60 | [facility] | | | GFR | [...] | | | | | performed at [facility], [address] | | | | | | [facility], | | | | | | [place] [address] | | | | + + + + + + + + | Specimen | + + | Blood | + + + + + + + | Performing | Address | City/State/Zipcode | Phone Number | | Organization | | | | + + + + + | [facility] | [address] | [place] [address] | [phone] | + + + + + Basic [...] | | | | | performed at [facility], [address] | | | | | | [facility], | | | | | | [place] [address] | | | | + + + + + + + + | Specimen | + + | Blood | + + + + + + + | Performing | Address | City/State/Zipcode | Phone Number | | Organization | | | | + + + + + | [facility] | [address] | [place] [address] | [phone] | + + + + + CBC [...] [facility] | | | | performed at [facility], [address] | | LABORATORY | | | | [place], | | | | | | [place] [address] | | | | + + + + + + + + | Specimen | + + | Blood | + + + + + + + | Performing | Address | City/State/Zipcode | Phone Number | | Organization | | | | + + + + + | [facility] | [address] | [place] [address] | [phone] | + + + + + POC Glucose (09/06/2019 3:14 PM PST) + + + + + + | Component | Value | Ref Range | Performed | Pathologist | | | | | At | Signature | + + + + + + | Glucose, | 119 (H)Comment: Testing | 65 - 99 mg/dL | [facility] | | | POC | performed at [facility];[address] | | LABORATORY | | | | [place], [place] | | | | | | [address] | | | | + + + + + + + + | Specimen | + + | | + + + + + + + | Performing | Address | City/State/Zipcode | Phone Number | | Organization | | | | + + + + + | [facility] | [address] | [place] [address] | [phone] | + + + + + Surgical [...] | fecal material and a brock-white exudate. Legal Consultant sections are | | | submitted in [...] | | technical component was performed by [facility], [address] [place] [address] | | | [place] [address] (Honey Grader And Blender: Mckayla Andino MD; CLIA# | | | [id number]). Professional interpretation was performed by[facility] | | | [address], | | | [place] [address] (Honey Grader And Blender: Renaldo Love M.D.; CLIA#: | | | [id number]). Diagnostician: Arturo Foster | | | DOPathologistElectronically Signed 09/12/2019 | | | | | |PERFORMING LABORATORY: | | |The technical component was performed by [facility], [address] [place] [address] (Honey Grader And Blender: Mckayla Andino MD; CLIA# [id number]). Professional interpretation was performed by | | |[facility] [address] (Honey Grader And Blender: Renaldo Love M.D.; CLIA#: [id number]). | | | | | |Diagnostician: Arturo [...] | | | | | | longer, lfwofe-wdv-bjqhi use of | | | | | [...] | | | | | | | edethy-dat-tsgtl use of at least | | | [...]
--- OUTSIDE RECORDS SUMMARY | ~2020-01-30 | XMS | Encounter Summary ---
Demographics + + + | Address | [address] | | | [place] [address] | + + + | Home Phone [...] + + | Author | [facility] | | | and [place] | + + + | Organization | [facility] | | [...] [place] | | | | | [address] | | + + + + + Care Team Providers + +------+ + | Care Vault Custodian Name | Role | Phone | + [...] + + | 09/02/ | Telephone | [facility] | Anival Stevenson MD | Other | | 2019 | | GENERAL SURGERY [address] | [address] | | | | | [address] | [address] [place], [place] | | | | | [place], [place] | [address] | | | | | [address] | | | | | | [phone] | | | +--------+ + + + [...]
--- OUTSIDE RECORDS SUMMARY | ~2020-01-30 | XMS | Encounter Summary ---
Demographics + + + | Address | [address] | | | [place] [address] | + + + | Home Phone | | + + + | Preferred Language | Unknown | + + + | Marital Status | | + + + | Christianity Affiliation | Unknown | + + + | Race | White | + + + | Ethnic Group | Not or | + + + Author + + + | Author | [facility] | + + + | Organization | [facility] | + + + | Address | Unknown | + + + | Phone | Unavailable | + + + Support + + +---------+ + | Name | Relationship | Address | Phone | + + +---------+ + | Maria Isabel Cespedes | ECON | Unknown | | + + +---------+ + Care Team Providers + +------+ + | Care Sugar Cane Planter Name | Role | Phone | [...] [address] | | | | | | [place], [place] | | | | | | [address] | | | +--------+ + + + [...]
--- OUTSIDE RECORDS SUMMARY | ~2020-01-30 | XMS | Encounter Summary ---
Demographics + + + | Address | [address] | | | [place] [address] | + + + | Home Phone [...] + | Author | [facility] | | | and [place]ana | + + + | Organization | [facility] | | | and [place] [...] [place] | | | | | [address] | | + + + + + Care Team Providers + +------+ + | Care Agile Test Lead Name | Role | Phone [...] | | artery | RAIN E | [place], [place] | | | | | disease) | [place] | [address] | | | | | (HCC) | [address] | Phone: | | | | | Procedures | Phone: | [phone] | | | | | IR Stent | [phone] | Fax: | | | | | Iliac | Fax: | [phone] | | | | | | [phone] | | +--------+--------+ + + + + Reason for Visit + + + | Reason | Comments | + + + | Follow-up | 6 mon f/u on CTA | + + + Encounter Details +--------+---------+ + + + | Date | Type | Department | Care Team | Description | +--------+---------+ + + + | 05/26/ | Office | [facility] | Rich Washington MD | PAD (peripheral | | 2019 | Visit | VASCULAR SURGERY | [address] | artery disease) | | | | [address] | [place] | (HCC) (Primary Dx); | | | | [place] | [address] | 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 Patient reports he i s on [...] Procedure: ERCP; Surgeon: Dc Naik MD; Location: [facility] ERCP N/A 02/12/2018 Procedure: ERCP; Surgeon: Dc Naik MD; Location: [facility] FRACTURE SURGERY 2011 skull/facial HARDWARE REMOVAL Right Hardware placement and removal thumb HERNIA REPAIR pt has 2 hernia repairs and 3rd revision on 12-18-14 hip screw removed Right 2013 Nasal reconstruction 1977 right hip/pelvis surgery 2012 SLAP 2011 UPPER GASTROINTESTINAL ENDOSCOPY UPPER GASTROINTESTINAL ENDOSCOPY N/A 10/23/2015 Procedure: EGD; Surgeon: Adrain Aponte MD; Location: [facility] UPPER GASTROINTESTINAL ENDOSCOPY N/A 11/18/2017 Procedure: EGD; Surgeon: Adrian Aponte MD; Location: [facility] XR LUMBAR SPINE [...] CV: No peripheral edema, rate regular SKIN: [place], warm, dry without rash/lesion MS: ROM not [...] SURGEON: | | | Rcih Washington MD MOTION GRAPHICS DESIGNER: None ANESTHESIA: Moderate sedation and local | [...] and | | | brought to the Account Development Representative. The patient was placed supine on the [...] wire and up sized to a 6 Guyanese sheath. A | | | Omni flush [...] identified and brought | | |to the Account Development Representative. The patient was placed supine on the [...] | | |up sized to a 6 Guyanese sheath. A Omni flush catheter was then [...]
--- OUTSIDE RECORDS SUMMARY | ~2020-01-30 | XMS | Encounter Summary ---
Demographics + + + | Address | [address] | | | [place] [address] | + + + | Home Phone [...] | Author | [facility] | | | and [place] | + + + | Organization | [facility] [...] [address]TH | | | | | [place] | | | | | [address] | | + + + + + Care Team Providers + +------+ + | Care Shoddy Mill Worker Name | Role | Phone | + +------+ + PCP | Unavailable | + +------+ + Encounter Details +--------+ + + + + | Date | Type | Department | Care Team | Description | +--------+ + + + + | 07/03/ | Hospital | [facility] | Bertha Bentley MD | Recurrent incisional | | 2013 - | Encounter | [facility] [address] | [address] [place] | hernia with | | | | [address] | [address] [place], [place] | complication | | 07/06/ | | [place], [place] | [address] | | | 2013 | | [address] | | | | | | [phone] | | | +--------+ + + + [...] Date of Service: 07/06/14 1211 Status: Signed Child And Family Services Specialist: Bertha Bentley MD (Physician) [facility]: General Surgery Discharge Summary Date of [...] - INCISIONAL; Surgeon: Bertha Bentley MD; Location: [facility] MA[facility] OR; Service: General; Laterality: N/A; Incisional hernia repair N/A 07/03/2014 Procedure: HERNIA REPAIR - INCISIONAL - COMPLEX; Surgeon: Bertha Bentley MD; Location: [facility]; Service: General; Laterality: N/A; [...] Date of Service: 07/06/14 1448 Status: Signed Child And Family Services Specialist: Dionne Johnson RN (Registered Nurse) Discharge instructions [...] Date of Service: 07/05/14 1140 Status: Signed Child And Family Services Specialist: Bertha Bentley MD (Physician) [facility]: General Surgery Progress Note POD: 2 [...] 07/05/1418 Date of Service: 07/05/14815 Status: Signed Child And Family Services Specialist: Dionne Johnson RN (Registered Nurse) Patient reported [...] Date of Service: 07/04/14 1401 Status: Addendum Child And Family Services Specialist: Urvashi Quesada RN (Registered Nurse) Related Notes: Original Note by Urvashi Quesada RN (Registered Nurse) filed at 07/04/14 140 1 Drug discount card given to patient. Coupons from [email or web address] given to patient. onver day Transaction, Provider Unknown - 07/04/2014 1:32 PM PDT Case Management by Urvashi Quesada RN at 07/04/14 1332 Author: Urvashi Quesada RN Service: (none) Author Type: Registered Nurse Filed: 07/04/14 1401 Date of Service: 07/04/14 1332 Status: Addendum Child And Family Services Specialist: Urvashi Quesada RN (Registered Nurse) Related Notes: [...] Discharge No Mental Status Oriented Power of Centrifugal Casting Machine Tender Yes Power of Centrifugal Casting Machine Tender Name Maria Isabel Power of Centrifugal Casting Machine Tender Anticipated Discharge Plan Post Acute Care Needs [...] 07/04/14900 Date of Service: 07/04/14899 Status: Signed Child And Family Services Specialist: Bertha Bentley MD (Physician) [facility]: General Surgery Progress Note POD: 1 [...] 07/03/141557 Date of Service: 07/03/141557 Status: Signed Child And Family Services Specialist: Keyur Ghotra RPH (Pharmacist) Pharmacy will renal [...] | | | | | [place] [address] | | | | + + + + + + | Red Blood | 3.92 (L)Comment: Testing | 4.20 - 5.70 | EXTERNAL | | | Cells | performed at [facility], [address] | M/uL | LAB | | | Counted | [address], | | | | | | [place] [address] | | | | + + + + + + | Hemoglobin | 11.9 (L)Comment: Testing | 13.2 - 17.0 | EXTERNAL | | | | performed at [facility], [address] | g/dL | LAB | | | | [address], | | | | | | [place] [address] | | | | + + + + + + | Hematocrit, | 36.0 (L)Comment: Testing | 39.0 - 50.0 % | EXTERNAL | | | POC | performed at [facility], [address] | | LAB | | | | [address], | | | | | | [place] [address] | | | | + + + + + + | MCV | 91.8Comment: Testing | 80.0 - 100.0 fl | EXTERNAL | | | | performed at [facility], [address] | | LAB | | | | [place], | | | | | | [place] [address] | | | | + + + + + + | MCH | 30.2Comment: Testing | 27.0 - 34.0 pg | EXTERNAL | | | | performed at [facility], [address] | | LAB | | | | [place], | | | | | | [place] [address] | | | | + + + + + + | MCHC | 32.9Comment: Testing | 32.0 - 35.5 | EXTERNAL | | | | performed at [facility], [address] | g/dL | LAB | | | | [address], | | | | | | [place] [address] | | | | + + + + + + | RDW-CV | 47.7Comment: Testing | 37 - 53 fl | EXTERNAL | | | | performed at [facility], [address] | | LAB | | | | [address], | | | | | | [place] [address] | | | | + + + + + + | Platelet | 267Comment: Testing | 150 - 400 K/uL | EXTERNAL | | | Count | performed at [facility], [address] | | LAB | | | Plasma | [address], | | | | | | [place] [address] | | | | + + + + + + | MPV | 8.7Comment: Testing | fl | EXTERNAL | | | | performed at [facility], [address] | | LAB | | | | [address], | | | | | | [place] [address] | | | | + + + + + + | Differentia | AUTOMATEDComment: | | EXTERNAL | | | l Type | Testing performed at | | LAB | | | | [facility], [address] | | | | | | [place] | | | | | | [address] | | | | + + + + + + | % Segmented | 76.9Comment: Testing | % | EXTERNAL | | | | performed at [facility], [address] | | LAB | | | Neutrophils | [address], | | | | | | [place] [address] | | | | + + + + + + | % | 14.3Comment: Testing | % | EXTERNAL | | | Lymphocytes | performed at [facility], [address] | | LAB | | | | [address], | | | | | | [place] [address] | | | | + + + + + + | % Monocytes | 7.9Comment: Testing | % | EXTERNAL | | | | performed at [facility], [address] | | LAB | | | | [address], | | | | | | [place] [address] | | | | + + + + + + | % | 0.0Comment: Testing | % | EXTERNAL | | | Eosinophils | performed at [facility], [address] | | LAB | | | | [address], | | | | | | [place] [address] | | | | + + + + + + | % Basophils | 0.9Comment: Testing | % | EXTERNAL | | | | performed at [facility], [address] | | LAB | | | | [address], | | | | | | [place] [address] | | | | + + + + + + | Absolute | 11.5 (H)Comment: Testing | 1.9 - 7.4 K/uL | EXTERNAL | | | Segmented | performed at [facility], [address] | | LAB | | | Neutrophils | [address], | | | | | | [place] [address] | | | | + + + + + + | Absolute | 2.1Comment: Testing | 1.0 - 3.9 K/uL | EXTERNAL | | | Lymphocytes | performed at [facility], [address] | | LAB | | | | [address], | | | | | | [place] [address] | | | | + + + + + + | Absolute | 1.2 (H)Comment: Testing | 0 - 0.8 K/uL | EXTERNAL | | | Monocytes | performed at [facility], [address] | | LAB | | | | [address], | | | | | | [place] [address] | | | | + + + + + + | Absolute | 0.0Comment: Testing | 0 - 0.5 K/uL | EXTERNAL | | | Eosinophils | performed at [facility], [address] | | LAB | | | [address], | | | | | | [place] [address] | | | | + + + + + + | Absolute | 0.1Comment: Testing | 0 - 0.1 K/uL | EXTERNAL | | | Basophils | performed at [facility], [address] | | LAB | | | | [address], | | | | | | [place] [address] | | | | + + + [...] | | | | | [place] [address] | | | | + + + + + + | K | 4.3Comment: Testing | 3.5 - 4.9 | EXTERNAL | | | | performed at [facility], [address] | mmol/L | LAB | | | | [address], | | | | | | [place] [address] | | | | + + + + + + | Cl | 104Comment: Testing | 99 - 109 mmol/L | EXTERNAL | | | | performed at [facility], [address] | | LAB | | | | [address], | | | | | | [place] [address] | | | | + + + + + + | CO2 | 27Comment: Testing | 23 - 32 mmol/L | EXTERNAL | | | | performed at [facility], [address] | | LAB | | | | [address], | | | | | | [place] [address] | | | | + + + + + + | Anion Gap | 9Comment: Testing | 5 - 20 mmol/L | EXTERNAL | | | | performed at [facility], [address] | | LAB | | | | [address], | | | | | | [place] [address] | | | | + + + + + + | Glucose, | 131 (H)Comment: Testing | 65 - 99 mg/dL | EXTERNAL | | | Fasting | performed at [facility], [address] | | LAB | | | | [address], | | | | | | [place] [address] | | | | + + + + + + | BUN | 19Comment: Testing | 8 - 25 mg/dL | EXTERNAL | | | | performed at [facility], [address] | | LAB | | | | [address], | | | | | | [place] [address] | | | | + + + + + + | Creatinine | 0.74Comment: Testing | 0.70 - 1.30 | EXTERNAL | | | | performed at [facility], [address] | mg/dL | LAB | | | | [address], | | | | | | [place] [address] | | | | + + + + + + | BUN/Creatin | 26Comment: Testing | | EXTERNAL | | | ine Ratio | performed at [facility], [address] | | LAB | | | | [address], | | | | | | [place] [address] | | | | + + + + + + | Calcium | 8.6Comment: Testing | 8.5 - 10.2 | EXTERNAL | | | | performed at [facility], [address] | mg/dL | LAB | | | | [address], | | | | | | [place] [address] | | | | + + + + + + | Protein, | 5.6 (L)Comment: Testing | 6.3 - 8.2 g/dL | EXTERNAL | | | Total | performed at [facility], [address] | | LAB | | | | [address], | | | | | | [place] [address] | | | | + + + + + + | Albumin | 3.2 (L)Comment: Testing | 3.6 - 5.0 g/dL | EXTERNAL | | | | performed at [facility], [address] | | LAB | | | | [address], | | | | | | [place] [address] | | | | + + + + + + | Globulin | 2.4Comment: Testing | 1.3 - 4.9 g/dL | EXTERNAL | | | | performed at [facility], [address] | | LAB | | | | [address], | | | | | | [place] [address] | | | | + + + + + + | A/G Ratio | 1.3Comment: Testing | 1.0 - 2.4 | EXTERNAL | | | | performed at [facility], [address] | | LAB | | | | [address], | | | | | | [place] [address] | | | | + + + + + + | Bilirubin | 0.6Comment: Testing | 0.1 - 1.5 mg/dL | EXTERNAL | | | Total | performed at [facility], [address] | | LAB | | | | [address], | | | | | | [place] [address] | | | | + + + + + + | ALP, | 74Comment: Testing | 35 - 115 U/L | EXTERNAL | | | External | performed at [facility], [address] | | LAB | | | | [address], | | | | | | [place] [address] | | | | + + + + + + | AST | 38Comment: Testing | 10 - 45 U/L | EXTERNAL | | | | performed at [facility], [address] | | LAB | | | | [address], | | | | | | [place] [address] | | | | + + + + + + | ALT | 28Comment: Testing | 10 - 65 U/L | EXTERNAL | | | | performed at [facility], [address] | | LAB | | | | [address], | | | | | | [place] [address] | | | | + + + [...] [place], | | | | | | [place] [address] | | | | + + + [...] areas of purple-white calcification. | | | System Consultant sections are submitted in cassette (A1). FM | | | MICROSCOPIC EXAMINATION: Histologic sections of all submitted blocks | | | are examined by light microscopy. These findings, together with the | | | gross examination, support the pathologic diagnosis. PERFORMING | | | LABORATORY: Professional interpretation and technical preparation was | | | performed by [employer], [facility], [facility] | | | [place] [address] (Telecommunications Field Engineer: Renaldo Justin | Margoth Love M.D.; [place]#: [id number]). Diagnostician: Renaldo Love | | | Pathologist [...]
--- OUTSIDE RECORDS SUMMARY | ~2020-01-30 | XMS | Encounter Summary ---
Demographics + + + | Address | [address] | | | [place] [address] | + + + | Home Phone [...] | [facility] | | | and [place] | + + + | Organization | [facility] | | [...] [address] | | | | | [place] | | | | | [address] | | + + + + + Care Team Providers + +------+ + | Care Leather Cleaner Name | Role | Phone | + +------+ + PCP | Unavailable | + +------+ + Encounter Details +--------+ + + + + | Date | Type | Department | Care Team | Description | +--------+ + + + + | 08/14/ | Hospital | [facility] | | | | 2012 | Encounter | [facility] | | | | | | [address] | | | | | | [place] [address] | | | | | | [phone] | | | +--------+ + + + [...]
--- OUTSIDE RECORDS SUMMARY | ~2020-01-30 | XMS | Encounter Summary ---
Demographics + + + | Address | [address] | | | [place] [address] | + + + | Home Phone [...] Author | [facility] | | | and [place] | + + + | Organization | [facility] | | [...] [place] | | | | | [address] | | + + + + + Care Team Providers + +------+ + | Care Print Operator Name | Role | Phone | [...] [place] | | | | | | [address] | | | | | | [phone] | | | +--------+ + + + [...]
--- OUTSIDE RECORDS SUMMARY | ~2020-01-30 | XMS | Encounter Summary ---
Demographics + + + | Address | [address] | | | [place] [address] | + + + | Home Phone [...] Author | [facility] | | | and [place] | + + + | Organization | [facility] [...] [place] | | | | | [address] | | + + + + + Care Team Providers + +------+ + | Care It Operations Manager Name | Role | Phone | [...] + | 01/20/ | Telephone | [facility] | Adrian Aponte MD | Appointment | | 2018 | | GASTROENTEROLOGY | [address] | | | | | [address] | [place], [place] | | | | | [address] [place] | [address] | | | | | [address] | [phone] | | | | | [phone] | | | +--------+ + + + [...]
--- OUTSIDE RECORDS SUMMARY | ~2020-01-30 | XMS | Encounter Summary ---
Demographics + + + | Address | [address] | | | [place] [address] | + + + | Home Phone | | + + + | Preferred Language | Unknown | + + + | Marital Status | | + + + | Latter-Day Affiliation | Unknown | + + + [...] Team Providers + +------+ + | Care Catastrophe Claims Supervisor Name | Role | Phone | + +------+ + | Allison Fairchild URBAN FORESTER | PCP | | + +------+ + [...] | [address] | [address]onda [address] [facility] | | | | | ([facility]) | [facility], | | | | | Procedures | Rd | 10th Floor | | | | | CTA ABDOMEN | [place], [place] | [place], [place] | | | | | [address] | [address] | [address] | | | | | IV CONTRAST | Phone: | Phone: | | | | | [address] | [phone] | [phone] | | | | | ANGIO, ABD | Fax: | Fax: | | | | | AND PELVS | [phone] | [phone] | | | | | INCL IMAG [...] | [address] | Vonda Khanna [facility] | | | | | ([facility]) | [facility], | | | | | Procedures | Rd | 10th Floor | | | | | CTA ABDOMEN | [place], [place] | [place], [place] | | | | | [address] | [address] | [address] | | | | | IV CONTRAST | Phone: | Phone: | | | | | [address] | [phone] | [phone] | | | | | ANGIO, ABD | Fax: | Fax: | | | | | AND PELVS | [phone] | [phone] | | | | | INCL IMAG [...] | 2019 | Encounter | Services at [facility] | [address] | | | | | [address] | [address] | | | | | [place] | [place], [place] | | | | | [address] | [address] | | | | | [place], [place] | [phone] | | | | | [address] | | | | | | [phone] | | | +--------+ + + + [...] + + + +---------+ + + | [id number] | Chew and swallow. | | 0 [...] [facility] | [address] | [place], [place] | | | [facility] | [address] | [address] | | | TESTS | | | [...]
--- OUTSIDE RECORDS SUMMARY | ~2020-01-30 | XMS | Encounter Summary ---
Demographics + + + | Address | [address] | | | [place] [address] | + + + | Home Phone [...] + + | Author | [facility] | + + + | Organization | [facility] | + + + | Address | Unknown | + + + | Phone | Unavailable | + + + Support + + +---------+ + | Name | Relationship | Address | Phone | + + +---------+ + | Maria Isabel Cespedes | ECON | Unknown | | + + +---------+ + Care Team Providers + +------+ + | Care Clinical Informatics Physician Name | Role | Phone | + [...] | | | | | [address] [place], | | | | | | [place] [address] | | | +--------+--------+ + + + [...]
--- OUTSIDE RECORDS SUMMARY | ~2020-01-30 | XMS | Encounter Summary ---
Demographics + + + | Address | [address] | | | [place] [address] | + + + | Home Phone [...] | [facility] | | | and [place] | + + + | Organization | [facility] [...] [place] | | | | | [address] | | + + + + + Care Team Providers + +------+ + | Care Motion Picture Narrator Name | Role | Phone | + [...] | | | | [address] | [place], [place] | | | | | [address] [place] | [address] | | | | | [address] | [phone] | | | | | [phone] | | | +--------+--------+ + + + [...]
--- OUTSIDE RECORDS SUMMARY | ~2020-01-30 | XMS | Encounter Summary ---
Demographics + + + | Address | [address] | | | [place] [address] | + + + | Home Phone [...] | Author | [facility] | | | and [place] | + + + | Organization | [facility] | [...] [place] | | | | | [address] | | + + + + + Care Team Providers + +------+ + | Care Final Finisher Forging Dies Name | Role | Phone | + +------+ + | Allison Fairchild NP | PCP | | + +------+ + Encounter Details +--------+ + + + + | Date | Type | Department | Care Team | Description | +--------+ + + + + | 09/08/ | Anesthesia | [facility] | April Lee, | | | 2019 | [facility] | [facility] | MD Adriana DODSON | | | | | ANESTHESIA [address] | [place] [address] | | | | | [address] | [phone] | | | | | [place], [place] | | | | | | [address] | | | | | | [phone] | | | +--------+ + + + [...]
--- OUTSIDE RECORDS SUMMARY | ~2020-01-30 | XMS | Encounter Summary ---
Demographics + + + | Address | [address] | | | [place] [address] | + + + | Home Phone [...] + | Author | [facility] | | | and [place] | + + + | Organization | [facility] | [...] [place] | | | | | [address] | | + + + + + Care Team Providers + +------+ + | Care Senior Clinical Study Manager Name | Role | Phone | [...] [place] | | | | | [facility] [place] | [address] | | | | | [address] | | | | | | [phone] | | | +--------+ + + + [...] 8.45 RAP: 5 mmHg | | | Executive Manager: Authenticated by: Ana Berger Report Date/Time: | [...] cmLVPWd: 0.89 | | cmLVOT Area: 3.74 mg1LJPA Diam: 2.18 cm%FS: 37.07 %EF(Teich): 66.67 %ESV(Teich): [...] mlLAESV Index (A-L): 29.42 ml/m2LAAs A2C: 20.20 [id number] A-L A2C: 67.49 | | mlLALs A2C: 5.13 cmLAAs A4C: 18.84 pf6KWPIF A-L A4C: 54.93 mlLALs A4C: 5.48 | | cmRAAs: 16.81 wr7ZUGNN A-L: 48.33 mlRAESV MOD: 46.23 mlRALs: 4.96 cmTAPSE: | | 2.69 cmAV maxP.02 mmHgAV meanP.05 mmHgAV Vmax: 1.32 m/Lacy Vmean: 0.81 | | m/Lacy VTI: 23.45 cmAVA Vmax: 3.31 cm2AVA (VTI): 3.75 xx4LCAX Vmax: 0.00 | | cm2/m2AVAI (VTI): 0.00 cm2/m2LVOT maxP.51 mmHgLVOT meanP.59 mmHgLVSI Dopp: | | 41.16 ml/m2LVSV Dopp: 88.08 mlLVOT Vmax: 1.17 m/sLVOT Vmean: 0.75 m/sLVOT VTI: | | 23.52 cmMV A Tano: 0.72 m/sMV DecT: 191.68 msMV E Tano: 0.91 m/sMV E/A Ratio: | | 1.26MV PHT: 55.58 msMVA By PHT: 3.95 dy9Ignwon e': 0.07 m/sSeptal E/e': | | 13.00Lateral e': 0.10 m/sLateral E/e': 8.45RAP: 5 mmHg Executive Manager:Authenticated | | by: Ana ValenciaReport Date/Time: 01-27-2018 [...] | |RAP: 5 mmHg | | | |Executive Manager: | |Authenticated by: Ana Berger | |Report [...]
--- OUTSIDE RECORDS SUMMARY | ~2020-01-30 | XMS | Encounter Summary ---
Demographics + + + | Address | [address] | | | [place] [address] | + + + | Home Phone [...] Author | [facility] | | | and [place] | + + + | Organization | [facility] | | | and [place] [...] [place] | | | | | [address] | | + + + + + Care Team Providers + +------+ + | Care Stained Glass Artist Name | Role | Phone | [...] | | | [address] [address] | [place] | | | | | [address] | [address] | | | | | [phone] | [phone] | | | | | | | [...] | | | Basophils | performed at [facility];[address] | LAB | | | | [address] | | | | [address];[place] [address] | | | | + + + [...]
--- OUTSIDE RECORDS SUMMARY | ~2020-01-30 | XMS | Encounter Summary ---
Demographics + + + | Address | [address] | | | [place] [address] | + + + | Home Phone [...] | Author | [facility] | | | and [place]ana | + + + | Organization | [facility] | [...] [address] | | | | | [facility] [place] | | | | | [address] | | + + + + + Care Team Providers + +------+ + | Care Sheet Metal Duct Installer Apprentice Name | Role | Phone | + +------+ + PCP | Unavailable | + +------+ + Encounter Details +--------+ + + + + | Date | Type | Department | Care Team | Description | +--------+ + + + + | 12/07/ | Hospital | [facility] | Conversion | | | 2014 | Encounter | CENTER PREADMIT | Transaction, | | | | | CLINIC [address] | Provider Unknown | | | | | [place], [place] | | | | | | [address] | (Fax) | | | | | [phone] | | | +--------+ + + + [...] LAB | | | | Blvd;[place] [address] | | | | + + + + + + | Antibody | NEGATIVE | | EXTERNAL | | | Screen | | | LAB | | + + + + + + | Antibody | Testing performed at | | EXTERNAL | | | Screen | [facility] | | LAB | | | | Blvd;[place] [address] | | | | + + + [...] | | | | TCL, [address] | | | | | | [place] | | | | | | [address] | | | | + + + + + + | Red Blood | 4.92Comment: Testing | 4.20 - 5.70 | EXTERNAL | | | Cells | performed at TCL, [address] | M/uL | LAB | | | Counted | [place], | | | | | | [place] [address] | | | | + + + + + + | Hemoglobin | 15.0Comment: Testing | 13.2 - 17.0 | EXTERNAL | | | | performed at TCL, [address] | g/dL | LAB | | | | [address], | | | | | | [place] [address] | | | | + + + + + + | Hematocrit, | 44.7Comment: Testing | 39.0 - 50.0 % | EXTERNAL | | | POC | performed at TCL, [address] | | LAB | | | | [address], | | | | | | [place] [address] | | | | + + + + + + | MCV | 90.9Comment: Testing | 80.0 - 100.0 fl | EXTERNAL | | | | performed at TCL, [address] | | LAB | | | | [address], | | | | | | [place] [address] | | | | + + + + + + | MCH | 30.4Comment: Testing | 27.0 - 34.0 pg | EXTERNAL | | | | performed at TCL, [address] | | LAB | | | | [address], | | | | | | [place] [address] | | | | + + + + + + | MCHC | 33.5Comment: Testing | 32.0 - 35.5 | EXTERNAL | | | | performed at TCL, [address] | g/dL | LAB | | | | [address], | | | | | | [place] [address] | | | | + + + + + + | RDW-CV | 47.7Comment: Testing | 37 - 53 fl | EXTERNAL | | | | performed at TCL, [address] | | LAB | | | | [address], | | | | | | [place] [address] | | | | + + + + + + | Platelet | 334Comment: Testing | 150 - 400 K/uL | EXTERNAL | | | Count | performed at TCL, [address] | | LAB | | | Plasma | [address], | | | | | | [place] [address] | | | | + + + + + + | MPV | 8.9Comment: Testing | fl | EXTERNAL | | | | performed at TCL, [address] | | LAB | | | | [address], | | | | | | [place] [address] | | | | + + + + + + | Differentia | AUTOMATEDComment: | | EXTERNAL | | | l Type | Testing performed at | | LAB | | | | TC, [address] | | | | | | [place] | | | | | | [address] | | | | + + + + + + | % Segmented | 74.30Comment: Testing | % | EXTERNAL | | | | performed at [facility], [address] | | LAB | | | Neutrophils | [place], | | | | | | [place] [address] | | | | + + + + + + | % | 19.68Comment: Testing | % | EXTERNAL | | | Lymphocytes | performed at TC, [address] | | LAB | | | | [address], | | | | | | [place] [address] | | | | + + + + + + | % Monocytes | 4.24Comment: Testing | % | EXTERNAL | | | | performed at TCL, [address] | | LAB | | | | [address], | | | | | | [place] [address] | | | | + + + + + + | % | 0.95Comment: Testing | % | EXTERNAL | | | Eosinophils | performed at TCL, [address] | | LAB | | | | [address], | | | | | | [place] [address] | | | | + + + + + + | % Basophils | 0.83Comment: Testing | % | EXTERNAL | | | | performed at TCL, [address] | | LAB | | | | [address], | | | | | | [place] [address] | | | | + + + + + + | Absolute | 8.58 (H)Comment: Testing | 1.90 - 7.40 | EXTERNAL | | | Segmented | performed at TC, [address] | K/uL | LAB | | | Neutrophils | [address], | | | | | | [place] [address] | | | | + + + + + + | Absolute | 2.27Comment: Testing | 1.00 - 3.90 | EXTERNAL | | | Lymphocytes | performed at TCL, [address] | K/uL | LAB | | | | [address], | | | | | | [place] [address] | | | | + + + + + + | Absolute | 0.49Comment: Testing | 0.00 - 0.80 | EXTERNAL | | | Monocytes | performed at TCL, [address] | K/uL | LAB | | | | [address], | | | | | | [place] [address] | | | | + + + + + + | Absolute | 0.11Comment: Testing | 0.00 - 0.50 | EXTERNAL | | | Eosinophils | performed at TCL, [address] | K/uL | LAB | | | | [address], | | | | | | [place] [address] | | | | + + + + + + | Absolute | 0.10Comment: Testing | 0.00 - 0.10 | EXTERNAL | | | Basophils | performed at [facility], [address] | K/uL | LAB | | | | [place], | | | | | | [place] [address] | | | | + + + [...] | | | | | [place] [address] | | | | + + + + + + | K | 4.5Comment: Testing | 3.5 - 4.9 | EXTERNAL | | | | performed at TCL, [address] | mmol/L | LAB | | | | [place], | | | | | | [place] [address] | | | | + + + + + + | Cl | 104Comment: Testing | 99 - 109 mmol/L | EXTERNAL | | | | performed at TCL, [address] | | LAB | | | | [address], | | | | | | [place] [address] | | | | + + + + + + | CO2 | 29Comment: Testing | 23 - 32 mmol/L | EXTERNAL | | | | performed at TCL, [address] | | LAB | | | | [address], | | | | | | [place] [address] | | | | + + + + + + | Anion Gap | 7Comment: Testing | 5 - 20 mmol/L | EXTERNAL | | | | performed at TCL, [address] | | LAB | | | | [address], | | | | | | [place] [address] | | | | + + + + + + | Glucose, | 110 (H)Comment: Testing | 65 - 99 mg/dL | EXTERNAL | | | Fasting | performed at TCL, [address] | | LAB | | | | [address], | | | | | | [place], [place] [address] | | | | + + + + + + | BUN | 16Comment: Testing | 8 - 25 mg/dL | EXTERNAL | | | | performed at TCL, [address] | | LAB | | | | [address], | | | | | | [place], [place] [address] | | | | + + + + + + | Creatinine | 0.86Comment: Testing | 0.70 - 1.30 | EXTERNAL | | | | performed at TCL, [address] | mg/dL | LAB | | | | [address], | | | | | | [place] [address] | | | | + + + + + + | BUN/Creatin | 19Comment: Testing | | EXTERNAL | | | ine Ratio | performed at TCL, [address] | | LAB | | | | [address], | | | | | | [place] [address] | | | | + + + + + + | Calcium | 9.4Comment: Testing | 8.5 - 10.5 | EXTERNAL | | | | performed at [facility], [address] | mg/dL | LAB | | | | [facility] [facility], | | | | | | [place] [address] | | | | + + + [...] | | | | | | at [facility], [address] | | | | | | [place], | | | | | | [place] [address] | | | | + + + [...]
--- OUTSIDE RECORDS SUMMARY | ~2020-01-30 | XMS | Encounter Summary ---
Demographics + + + | Address | [address] | | | [place] [address] | + + + | Home Phone | | + + + | Preferred Language | Unknown | + + + | Marital Status | | + + + | Holiness Affiliation | Unknown | + + + | Race | White | + + + | Ethnic Group | Not or | + + + Author + + + | Author | [facility] | + + + | Organization | [facility] | + + + | Address | Unknown | + + + | Phone | Unavailable | + + + Support + + +---------+ + | Name | Relationship | Address | Phone | + + +---------+ + | Maria Isabel Cespedes | ECON | Unknown | | + + +---------+ + Care Team Providers + +------+ + | Care Operator Ground Based [employer] Name | Role | Phone | + [...] JO Ordaz | | | | | [address] | [address] | | | | | Loop Physician's | [place], [place] | | | | | [place], [facility] | [address] | | | | | [place], [place] | [phone] | | | | | [address] | | | | | | [phone] | | | +--------+ + + + [...]
--- OUTSIDE RECORDS SUMMARY | ~2020-01-30 | XMS | Encounter Summary ---
Demographics + + + | Address | [address] | | | [place] [address] | + + + | Home Phone [...] Providers + +------+ + | Care Supervisor Car And Yard Name | Role | Phone | + +------+ + | Allison Fairchild PARKING LOT LABORER | PCP | | + +------+ + [...] | [address] | Dorian Khanna [facility] | | | | | ([facility]) | [facility], | | | | | Procedures | Rd | 10th Floor | | | | | CTA ABDOMEN | [place], [place] | [place], [place] | | | | | [address] | [address] | [address] | | | | | IV CONTRAST | Phone: | Phone: | | | | | [place] | [phone] | [phone] | | | | | ANGIO, ABD | Fax: | Fax: | | | | | AND PELVS | [phone] | [phone] | | | | | INCL IMAG [...] JO Ordaz | | | | | [address] | [address] | | | | | Loop Physician's | [place], [place] | | | | | [place], 4th Floor | [address] | | | | | [place], [place] | [phone] | | | | | [address] | | | | | | [phone] | | | +--------+ + + + [...] by | | | | | | [employer] | | | | | | [address], [facility],[place] | | | | | | [address] | | | | | | [phone][employer]. | | | | | | Melecio [...] [facility] | [address] | [place], [place] | | | [facility] | | [address] | | + + + + + [...] | + + + + + | [facility] | [address] | [place] [address] | | | SERVICES, CORE | PARK [...] | | | LABORATORY | | | [place] | | | SERVICES, | | | [...] MDRD equation recommended by the National | [facility] | | Kidney Disease Education Program. Estimated GFR Interpretive | LABORATORY | | Information: <60 mL/min/1.73 sq m Chronic Kidney | SERVICES, [facility] | | Disease <15 mL/min/1.73 sq m [...] | + + + + + | [facility] | [address] | [place] [address] | | | [place]TE[place] BOOGIE | DORIAN [...] | + + + + + | [facility] | [address] | [place] [address] | | | [place]IE | DORIAN [...] Note | + + | Service Account, Roost Res In Interface - 03/12/2019 1:33 PM [...]
--- OUTSIDE RECORDS SUMMARY | ~2020-01-30 | XMS | Encounter Summary ---
Demographics + + + | Address | [address] | | | [place] [address] | + + + | Home Phone [...] [place] | | | | | [address] | | + + + + + Care Team Providers + +------+ + | Care Supervisor Cell Maintenance Name | Role | Phone | + +------+ + | Allison Fairchild NP | PCP | | + +------+ + Reason for Visit + + + | Reason | Comments | + + + | Post-op Question | | + + + Encounter Details +--------+ + + + + | Date | Type | Department | Care Team | Description | +--------+ + + + + | 09/23/ | Telephone | [facility] | Anival Stevenson MD | Post-op Question | | 2020 | | GENERAL SURGERY [address] | [address] | | | | | [address] | [address] [place], [place] | | | | | [place], [place] | [address] | | | | | [address] | | | | | | [phone] | | | +--------+ + + + [...]
--- OUTSIDE RECORDS SUMMARY | ~2020-01-30 | XMS | Encounter Summary ---
Demographics + + + | Address | [address] | | | [place] [address] | + + + | Home Phone [...] Author | [facility] | | | and [place] | + + + | Organization | [facility] | [...] [place] | | | | | [address] | | + + + + + Care Team Providers + +------+ + | Care Blender / Cook Name | Role | Phone | + [...] + + | 01/04/ | Telephone | [facility] | Adrian Aponte MD | Medication Refill | | 2018 | | GASTROENTEROLOGY | [address] | Assistance | | | | [address] [facility] | [place], [place] | | | | | [address] [place], [place] | [address] | | | | | [address] | [phone] | | | | | [phone] | | | +--------+ + + + [...]
--- OUTSIDE RECORDS SUMMARY | ~2020-01-30 | XMS | Encounter Summary ---
Demographics + + + | Address | [address] | | | [place] [address] | + + + | Home Phone [...] | Author | [facility] | | | and [place] | + + + | Organization | [facility] | | [...] [place] | | | | | [address] | | + + + + + Care Team Providers + +------+ + | Care Warehousing Technician Name | Role | Phone | + +------+ + PCP | Unavailable | + +------+ + Encounter Details +--------+ + + + + | Date | Type | Department | Care Team | Description | +--------+ + + + + | 03/04/ | Hospital | [facility] | Conversion | Pain | | 2013 | Encounter | CONVERSION [address] | Transaction, | | | | [address] | Provider Unknown | | | | | [place], [place] | | | | | | [address] | (Fax) | | | | | [phone] | | | +--------+ + + + [...]
--- OUTSIDE RECORDS SUMMARY | ~2020-01-30 | XMS | Encounter Summary ---
Demographics + + + | Address | [address] | | | [place] [address] | + + + | Home Phone [...] | Author | [facility] | | | and [place] | + + + | Organization | [facility] | | [...] [place] | | | | | [address] | | + + + + + Care Team Providers + +------+ + | Care Grain Combiner Name | Role | Phone | + [...] + + | 12/16/ | Telephone | [facility] | Adrian Aponte MD | Results, Pathology; | | 2015 | | GASTROENTEROLOGY | [address] [facility] | Results, Imaging | | | | [address] [facility] | [place], [place] | | | | | [address] [place], [place] | [address] | | | | | [address] | [phone] | | | | | [phone] | | | +--------+ + + + [...]
--- OUTSIDE RECORDS SUMMARY | ~2020-01-30 | XMS | Encounter Summary ---
Demographics + + + | Address | [address] | | | [place] [address] | + + + | Home Phone [...] Author | [facility] | | | and [place] | + + + | Organization | [facility] | | [...] [place] | | | | | [address] | | + + + + + Care Team Providers + +------+ + | Care Filenet Developer Name | Role | Phone | [...] + + | 08/16/ | Telephone | [facility] | Marshall Ragland, | Follow-up(Procedure) | | 2019 | | INTERVENTIONAL | RN | | | | | RADIOLOGY [address] | | | | | | [address] | | | | | | [facility] [place] | | | | | | [address] | | | | | | [phone] | | | +--------+ + + + [...]
--- OUTSIDE RECORDS SUMMARY | ~2020-01-30 | XMS | Encounter Summary ---
Demographics + + + | Address | [address] | | | [place] [address] | + + + | Home Phone [...] [facility] | | | and [place] | + + + | Organization | [facility] | | | and [place] [...] [place] | | | | | [address] | | + + + + + Care Team Providers + +------+ + | Care Inspection And Testing Supervisor Name | Role | Phone | [...] 2018 | | GASTROENTEROLOGY | [address] [place], [place] | | | | | [address] [place] | [address] [place], [place] | | | | | [address] [place], [place] | [address] | | | | | [address] | | | | | | [phone] | | | +--------+ + + + [...]
--- OUTSIDE RECORDS SUMMARY | ~2020-01-30 | XMS | Encounter Summary ---
Demographics + + + | Address | [address] | | | [place] [address] | + + + | Home Phone [...] | [facility] | | | and [place] | + + + | Organization | [facility] | [...] [place] | | | | | [address] | | + + + + + Care Team Providers + +------+ + | Care Burn Out Scarfing Operator Name | Role | Phone | [...] | | | | | | | MT | | | | | | | ANESTHESIA | | | | | | | UPPER GI | | | | | | | ENDOSCOPIC | | | | | | | PX ERCP MT | | | | | | | [...] CTR MP INTRA OP | [address], [place] | | | | | [address] | [address] [place], [place] | | | | | [place], [place] | [address] | | | | | [address] | | | | | | [phone] | | | +--------+---------+ + + + [...] You can't be awakened Date Last Reviewed: 06/24/[id number] [employer]. [address] [place] [address]. All righ ts reserved. This information is [...] 02/12/2018 | PROVATION | | 11:06 AMMRN: [id number] #: [id number] of : | | | 1960Admit Type: AmbulatoryAge: 57[facility]: [facility] 01Gender: MaleNote | | | Status: FinalizedAttending MD: MARIAMA Guardadorocedure: | | | ERCPIndications: Biliary stent removalProviders: | | | Dc Naik MD, Perla Ponce RN, Caroline Rutledge | | | ELLIE Beltran, Shyam Peña MD (Anesthesia | | | Staff)Referring MD: Allison Faicrhild NP (Referring | | | MD)Medicines: Propofol [...] | | | the anesthesiologist and the microbiology technician in the endoscopy suite. | | [...] Scope In: 11:27:31 AMScope Out: 11:31:38 AM [facility] | | | [facility], [address] [place] [address] | | | [phone] | | | - Discharge patient to [...] |Scope Out: 11:31:38 AM | | | [facility], [address] [place] [address] | | | [address] | | + + -+ + +---------+ [...]
--- OUTSIDE RECORDS SUMMARY | ~2020-01-30 | XMS | Encounter Summary ---
Demographics + + + | Address | [address] | | | [place] [address] | + + + | Home Phone [...] | Author | [facility] | | | and [place] | + + + | Organization | [facility] | | | and [...] [place] | | | | | [address] | | + + + + + Care Team Providers + +------+ + | Care Drivematic Machine Operator Name | Role | Phone | + +------+ + PCP | Unavailable | + +------+ + Encounter Details +--------+ + + + + | Date | Type | Department | Care Team | Description | +--------+ + + + + | 07/12/ | Emergency | [facility] | | Leukocytosis; Nausea | | 2013 | | [facility]ICAL CENTER | | and vomiting; UTI | | | | EMERGENCY CENTER | | (urinary tract | | | | [address] | | infection); Acute | | | | [place] | | bronchiolitis; | | | | [address] | | Abdominal pain, | | | | [phone] | | acute | +--------+ + + [...] GROWTH | | | Testing performed at [facility], [address] | | | [place] [address] | | + + + + +---------+ [...] EXTERNAL | | | | performed at [facility];[address] | | LAB | | | | [address];[place] | | | | | | [address] | | | | + + + + + + | RBC, UA | 0-2Comment: Testing | 0 - 2 /hpf | EXTERNAL | | | | performed at [facility];[address] | | LAB | | | | [address];[place] | | | | | | [address] | | | | + + + + + + | Epithelial | NONE SEENComment: | /lpf | EXTERNAL | | | Cells | Testing performed at | | LAB | | | | [facility];[address];[place] [address] | | | | + + + + + + | Bacteria, | 1+ (A)Comment: Testing | | EXTERNAL | | | UA | performed at [facility];[address] | | LAB | | | | [address];[place] | | | | | | [address] | | | | + + + + + + | Mucus, | 4+Comment: Testing | | EXTERNAL | | | Urine | performed at [facility];[address] | | LAB | | | | [address];[place] | | | | | | [address] | | | | + + + + + + | CASTS | 11-15Comment: | /lpf | EXTERNAL | | | | HYALINETesting performed | | LAB | | | | at [facility];[address] | | | | | | [address];[place] [address] | | | | | | | [...] MaleCT | | CHEST ABDOMEN PELVIS W CHCCUTMF49/5/2014 4:45 PM HISTORY: Dyspnea with recent surgical [...] (500), | | | | | | editor magazine SUKHDEV ISAAC (8) | | | | | | on 07/12/2014 6:05:10 PM | | | | | | | | | | + + + + + + + + | Specimen | + + | | + + + + + | Narrative | Performed At | + + + | Historically converted procedure from [facility] environment | EXTERNAL LAB | + + [...] TONI | | | Testing performed at [facility];[address] | [address];[place] [address] CULTURE | | | NO GROWTH | | | Testing performed at [facility], [address], [place], [place] | | | [address] | | + + + + +---------+ [...] EXTERNAL | | | | performed at [facility];[address] | | LAB | | | | [address];[place] | | | | | | [address] | | | | + + + + + -+ | Red Blood | 4.67Comment: Testing | 4.20 - 5.70 | EXTERNAL | | | Cells | performed at [facility];888 | M/uL | LAB | | | Counted | [address];[place] | | | | | | [address] | | | | + + + + + -+ | Hemoglobin | 13.9Comment: Testing | 13.2 - 17.0 | EXTERNAL | | | | performed at [facility];888 | g/dL | LAB | | | | [address];[place] | | | | | | [address] | | | | + + + + + -+ | Hematocrit, | 41.9Comment: Testing | 39.0 - 50.0 % | EXTERNAL | | | POC | performed at [facility];[address] | | LAB | | | | [address];[place] | | | | | | [address] | | | | + + + + + -+ | MCV | 89.6Comment: Testing | 80.0 - 100.0 fl | EXTERNAL | | | | performed at [facility];[address] | | LAB | | | | [address];[place] | | | | | | [address] | | | | + + + + + -+ | MCH | 29.7Comment: Testing | 27.0 - 34.0 pg | EXTERNAL | | | | performed at [facility];[address] | | LAB | | | | [address];[place] | | | | | | [address] | | | | + + + + + -+ | MCHC | 33.2Comment: Testing | 32.0 - 35.5 | EXTERNAL | | | | performed at [facility];888 | g/dL | LAB | | | | [address];[place] | | | | | | [address] | | | | + + + + + -+ | RDW-CV | 46.4Comment: Testing | 37 - 53 fl | EXTERNAL | | | | performed at [facility];[address] | | LAB | | | | [address];[place] | | | | | | [address] | | | | + + + + + -+ | Platelet | 603 (H)Comment: Testing | 150 - 400 K/uL | EXTERNAL | | | Count | performed at [facility];[address] | | LAB | | | Plasma | [address];[place] | | | | | | [address] | | | | + + + + + -+ | MPV | 7.8Comment: Testing | fl | EXTERNAL | | | | performed at [facility];[address] | | LAB | | | | [address];[place] | | | | | | [address] | | | | + + + + + -+ | Differentia | MANUALComment: Testing | | EXTERNAL | | | l Type | performed at [facility];[address] | | LAB | | | | [address];[place] | | | | | | [address] | | | | + + + + + -+ | Segmented | 73Comment: Testing | % | EXTERNAL | | | Neutrophils | performed at [facility];[address] | | LAB | | | Manual | [address];[place] | | | | | | [address] | | | | + + + + + -+ | % Bands | 4Comment: Testing | % | EXTERNAL | | | | performed at [facility];[address] | | LAB | | | | [address];[place] | | | | | | [address] | | | | + + + + + -+ | Lymphocytes | 18Comment: Testing | % | EXTERNAL | | | Manual | performed at [facility];[address] | | LAB | | | | [address];[place] | | | | | | [address] | | | | + + + + + -+ | Monocytes | 5Comment: Testing | % | EXTERNAL | | | Manual | performed at [facility];[address] | | LAB | | | | [address];[place] | | | | | | [address] | | | | + + + + + -+ | Absolute | 11.5 (H)Comment: Testing | 1.9 - 7.4 K/uL | EXTERNAL | | | Neutrophils | performed at [facility];[address] | | LAB | | | | [address];[place] | | | | | | [address] | | | | + + + + + -+ | Bands | 0.6 (H)Comment: Testing | 0 - 0.2 K/uL | EXTERNAL | | | Manual | performed at [facility];[address] | | LAB | | | | [address];[place] | | | | | | [address] | | | | + + + + + -+ | Absolute | 2.8Comment: Testing | 1.0 - 3.9 K/uL | EXTERNAL | | | Lymphocytes | performed at [facility];[address] | | LAB | | | | [address];[place] | | | | | | [address] | | | | + + + + + -+ | Absolute | 0.8Comment: Testing | 0 - 0.8 K/uL | EXTERNAL | | | Monocytes | performed at [facility];[address] | | LAB | | | | [address];[place] | | | | | | [address] | | | | + + + + + -+ | RBC | 1+Comment: ANISOGIANT | | EXTERNAL | | | Morphology | PLATELETSTesting | | LAB | | | | performed at [facility];[address] | | | | | | [address];[place] | | | | | | [address] | | | | | | | | | | + + + + + -+ | Na | 138Comment: Testing | 135 - 143 | EXTERNAL | | | | performed at [facility];[address] | mmol/L | LAB | | | | [address];[place] | | | | | | [address] | | | | + + + + + -+ | K | 3.5Comment: SLT | 3.5 - 4.9 | EXTERNAL | | | | HEMOLYSISTesting | mmol/L | LAB | | | | performed at [facility];[address] | | | | | | [address];[place] | | | | | | [address] | | | | + + + + + -+ | Cl | 106Comment: Testing | 99 - 109 mmol/L | EXTERNAL | | | | performed at [facility];[address] | | LAB | | | | [address];[place] | | | | | | [address] | | | | + + + + + -+ | CO2 | 22 (L)Comment: Testing | 23 - 32 mmol/L | EXTERNAL | | | | performed at [facility];[address] | | LAB | | | | [address];[place] | | | | | | [address] | | | | + + + + + -+ | Anion Gap | 14Comment: Testing | 5 - 20 mmol/L | EXTERNAL | | | | performed at [facility];[address] | | LAB | | | | [address];[place] | | | | | | [address] | | | | + + + + + -+ | Glucose, | 109 (H)Comment: Testing | 65 - 99 mg/dL | EXTERNAL | | | Fasting | performed at [facility];[address] | | LAB | | | | [address];[place] | | | | | | [address] | | | | + + + + + -+ | BUN | 32 (H)Comment: Testing | 8 - 25 mg/dL | EXTERNAL | | | | performed at [facility];[address] | | LAB | | | | [address];[place] | | | | | | [address] | | | | + + + + + -+ | Creatinine | 1.16Comment: Testing | 0.70 - 1.30 | EXTERNAL | | | | performed at [facility];[address] | mg/dL | LAB | | | | [address];[place] | | | | | | [address] | | | | + + + + + -+ | BUN/Creatin | 28Comment: Testing | | EXTERNAL | | | ine Ratio | performed at [facility];[address] | | LAB | | | | [address];[place] | | | | | | [address] | | | | + + + + + -+ | Calcium | 9.6Comment: Testing | 8.5 - 10.2 | EXTERNAL | | | | performed at [facility];888 | mg/dL | LAB | | | | [address];[place] | | | | | | [address] | | | | + + + + + -+ | Protein, | 8.2Comment: Testing | 6.3 - 8.2 g/dL | EXTERNAL | | | Total | performed at [facility];[address] | | LAB | | | | [address];[place] | | | | | | [address] | | | | + + + + + -+ | Albumin | 3.5 (L)Comment: Testing | 3.6 - 5.0 g/dL | EXTERNAL | | | | performed at [facility];[address] | | LAB | | | | [address];[place] | | | | | | [address] | | | | + + + + + -+ | Globulin | 4.6Comment: Testing | 1.3 - 4.9 g/dL | EXTERNAL | | | | performed at [facility];[address] | | LAB | | | | [address];[place] | | | | | | [address] | | | | + + + + + -+ | A/G Ratio | 0.8 (L)Comment: Testing | 1.0 - 2.4 | EXTERNAL | | | | performed at [facility];[address] | | LAB | | | | [address];[place] | | | | | | [address] | | | | + + + + + -+ | Bilirubin | 0.5Comment: Testing | 0.1 - 1.5 mg/dL | EXTERNAL | | | Total | performed at [facility];[address] | | LAB | | | | [address];[place] | | | | | | [address] | | | | + + + + + -+ | ALP, | 111Comment: Testing | 35 - 115 U/L | EXTERNAL | | | External | performed at [facility];[address] | | LAB | | | | [address];[place] | | | | | | [address] | | | | + + + + + -+ | AST | 27Comment: SLT | 10 - 45 U/L | EXTERNAL | | | | HEMOLYSISTesting | | LAB | | | | performed at [facility];[address] | | | | | | [address];[place] | | | | | | [address] | | | | + + + + + -+ | ALT | 23Comment: Testing | 10 - 65 U/L | EXTERNAL | | | | performed at [facility];[address] | | LAB | | | | [address];[place] | | | | | | [address] | | | | + + + [...] | | | | | | at [facility];[address] | | [address];[place] [address] | | | | + + + + + -+ | CK, Total | 149Comment: Testing | 55 - 400 U/L | EXTERNAL | | | | performed at [facility];[address] | | LAB | | | | [address];[place] | | | | | | [address] | | | | + + + [...] | | performed at [facility];[address] | | | | | | [address];[place] | | | | | | [address] | | | | + + + + + -+ | aPTT, | 24Comment: Testing | 23 - 32 seconds | EXTERNAL | | | Patient | performed at [facility];[address] | | LAB | | | | [address];[place] | | | | | | [address] | | | | + + + + + -+ | CK-MB | 0.6Comment: Testing | 0.5 - 3.6 ng/mL | EXTERNAL | | | | performed at [facility];[address] | | LAB | | | | [address];[place] | | | | | | [address] | | | | + + + [...] GROWTH | | | Testing performed at [facility], [address] | | | [place] [address] | | + + + + +---------+ [...]
--- OUTSIDE RECORDS SUMMARY | ~2020-01-30 | XMS | Encounter Summary ---
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 | [address] | | | LABORATORY | | | | + + + + + | REFERENCE LAB | [address] [facility] [address] | [place], [place] | | | [facility] | Blvd. | [address] | | | LABORATORY | | | [...] | | | | | | MDRD IDMT traceable | | | | | | equation.Testing | | | | | | performed at [facility];[address] | | | | | | [facility] | | | | | | [facility];[place] [address] | | | | | | | | | | + + + + + + + + | Specimen | + + | Blood | + + + + + + + | Performing | Address | City/State/Zipcode | Phone Number | | Organization | | | | + + + + + | REFERENCE LAB | [address] [place] [address] | [place], [place] | [phone] | | [facility] | Blvd[address] | [address] | | | LABORATORY | | | | + + + + + | REFERENCE LAB | [address] [place] [address] | [place], [place] | | | [facility] | Blvd. | [address] | | | LABORATORY | | | [...] - 1.030 | REFERENCE | | | [place], | | | LAB | | | [...] + + | REFERENCE LAB | [address] | [place] | [phone] | | [facility] | Blvd. | [address] | | | LABORATORY | | | | + + + + + | REFERENCE LAB | [address] [facility] [address] | [place] | | | [facility] | Blvd. | [address] | | | LABORATORY | | | [...] REFERENCE | | | | performed at [facility];[address] | | LAB | | | | [place] | | [facility] | | | | [address];[place] [address] | | LABORATORY | | + + + + + + + + | Specimen | + + | Blood | + + + + + + + | Performing | Address | City/State/Zipcode | Phone Number | | Organization | | | | + + + + + | REFERENCE LAB | [address] [place] [address] | [place], [place] | [phone] | | [facility] | Blvd. | [address] | | | LABORATORY | | | | + + + + + | REFERENCE LAB | [address] [place] [address] | [place], [place] | | | [facility] | Blvd. | [address] | | | LABORATORY | | | [...]
--- OUTSIDE RECORDS SUMMARY | ~2020-01-30 | XMS | Encounter Summary ---
Demographics + + + | Address | [address] | | | [place] [address] | + + + | Home Phone [...] Author | [facility] | | | and [place] | + + + | Organization | [facility] | [...] [place] | | | | | [address] | | + + + + + Care Team Providers + +------+ + | Care Machine Tool Technician Instructor Name | Role | Phone | [...] | Dysphagia, | [place], [place] | [place] [address] | | | | | unspecified | [address] | Phone: | | | | | dysphagia | Phone: | [phone] | | | | | Opioid | [phone] | Fax: | | | | | dependence, | Fax: | [phone] | | | | | uncomplicate | [phone] | | | | | | d [...] | | | | | | MT EDG | | | | | | | TRANSORAL | | | | | | | BIOPSY | | | | | | | SINGLE/MULTI | | | | | | | PLE MT | | | | | | [...] | | | | | distension | FINANCIAL AID OFFICER [address] | [address] | | | | | (gaseous) | [address] | | | | | Procedures | [address] | [address] | | | | | Office visit | [place], | [place] | | | | | | [place] [address] | [address] | | | | | | Phone: | Phone: | | | | | | [phone] | [phone] | | | | | | Fax: | Fax: | | | | | | [phone] | [phone] | +--------+--------+ + + + + Encounter Details +--------+---------+ + + + | Date | Type | Department | Care Team | Description | +--------+---------+ + + + | 09/28/ | Office | [facility] | Adrian Aponte MD | Abdominal pain, | | 2016 | Visit | GASTROENTEROLOGY | [address] | generalized (Primary | | | | [address] [facility] | [place], [place] | Dx); Dysphagia, | | | | [address] [place] [address] | [address] | unspecified | | | | [address] | [phone] | dysphagia | | | | [phone] | | | +--------+---------+ + + + [...] Abdominal pain, | Expected: 10/23/2015 | | [id number] | Referral | e | generalized | [...]
--- OUTSIDE RECORDS SUMMARY | ~2020-01-30 | XMS | Encounter Summary ---
Demographics + + + | Address | [address] | | | [place] [address] | + + + | Home Phone [...] | Author | [facility] | | | and [place] | + + + | Organization | [facility] | | [...] [place] | | | | | [address] | | + + + + + Care Team Providers + +------+ + | Care Warehouse Sorter Name | Role | Phone | + +------+ + | Allison Fairchild NP | PCP | | + +------+ + Encounter Details +--------+ + + + + | Date | Type | Department | Care Team | Description | +--------+ + + + + | 03/31/ | Orders Only | [facility] | [place] | 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
--- OUTSIDE RECORDS SUMMARY | ~2020-01-30 | XMS | Encounter Summary ---
Demographics + + + | Address | [address] | | | [place] [address] | + + + | Home Phone [...] | Author | [facility] | | | and [place] | + + + | Organization | [facility] [...] [place] | | | | | [address] | | + + + + + Care Team Providers + +------+ + | Care Campground Hand Name | Role | Phone | [...] + + | 08/10/ | Telephone | [facility] | Hellen Avilez | Other (pt status | | 2019 | | INFECTIOUS DISEASE | L, RN | check) | | | | [address] | | | | | | [place] | | | | | | [address] | | | | | | [phone] | | | +--------+ + + + [...]
--- OUTSIDE RECORDS SUMMARY | ~2020-01-30 | XMS | Encounter Summary ---
Demographics + + + | Address | [address] | | | [place] [address] | + + + | Home Phone [...] + | Author | [facility] | | | and [place] | + + + | Organization | [facility] | | | [...] [place] | | | | | [address] | | + + + + + Care Team Providers + +------+ + | Care Green Chainer Name | Role | Phone | + +------+ + | Allison Fairchild NP | PCP | | + +------+ + Encounter Details +--------+ + + + + | Date | Type | Department | Care Team | Description | +--------+ + + + + | 09/09/ | Anesthesia | [facility] | April Lee, | | | 2019 | [facility] | MD Adriana DODSON | | | | | ANESTHESIA [address] | [place] [address] | | | | | [address] | [phone] | | | | | [place], [place] | | | | | | [address] | | | | | | [phone] | | | +--------+ + + + [...]
--- OUTSIDE RECORDS SUMMARY | ~2020-01-30 | XMS | Encounter Summary ---
Demographics + + + | Address | [address] | | | [place] [address] | + + + | Home Phone [...] + | Author | [facility] | | | and [place] | + + + | Organization | [facility] | | | and [place] | + + + | Address | Unknown | + + + | Phone | Unavailable | + + + Support + + + + + | Name | Relationship | Address | Phone | + + + + + | Teodora Han | ECON | [address] | | | | | [place] | | | | | [address] | | + + + + + Care Team Providers + +------+ + | Care Part Time Name | Role | Phone | + +------+ + PCP | Unavailable | + +------+ + Encounter Details +--------+ + + + + | Date | Type | Department | Care Team | Description | +--------+ + + + + | 01/09/ | [facility] | [facility] | Dominick Perez MD | | | 2013 | Encounter | [facility] | [address] | | | | | CLINICAL LABORATORY | [place] | | | | | [address] | [address] | | | | | [place], [place] | [phone] | | | | | [address] | | | | | | [phone] | | | +--------+ + + + [...] At | + + + | CASE: [id number] PATIENT: APARNA HAN Surgical Pathology Report | [...]
--- OUTSIDE RECORDS SUMMARY | ~2020-01-30 | XMS | Encounter Summary ---
Demographics + + + | Address | [address] | | | [place] [address] | + + + | Home Phone [...] + | Author | [facility] | | | and [place] | + + + | Organization | [facility] | [...] [place] | | | | | [address] | | + + + + + Care Team Providers + +------+ + | Care Radio Dispatcher Name | Role | Phone | [...] [place] | | | | | [address] | [address] | | | | | [phone] | [phone] | | | | | | | [...] EXTERNAL | | | | performed at [facility] | | LAB | | | | Health;[address] | | | | | | [place] | | | | | | [address] | | | | + + + [...]
--- OUTSIDE RECORDS SUMMARY | ~2020-01-30 | XMS | Encounter Summary ---
Demographics + + + | Address | [address] | | | [place] [address] | + + + | Home Phone [...] | [facility] | | | and [place]ana | + + + | Organization | [facility] | [...] [place] | | | | | [address] | | + + + + + Care Team Providers + +------+ + | Care Associate [employer] Name | Role | Phone | + [...] [place] | | | | | [address] | [address] | | | | | [phone] | [phone] | | | | | | | [...] EXTERNAL LAB | | Testing performed at [facility] | | | Health;[address];[place] [address] GRAM STAIN | | | GRAM POSITIVE COCCI IN CLUSTERS SEEN IN ANAEROBIC | | | BOTTLE SMEAR | | | RESULTS CALLED TO AND READ BACK BY: GAYLE Henderson RN TRIOS 2E 09/03 [facility] | | | Testing performed | | | at [facility], [address] [place] [id number] CULTURE | | | STAPHYLOCOCCUS SPECIES, COAGULASE | | | NEGATIVE GROWTH | | | IN ONE OF TWO BOTTLES | | | TIME TO DETECTION: 47 HOURS 5 MINITES | | | POSSIBLE CONTAMINANT, CLINICAL CORRELATION | | | REQUIRED. Testing | | | performed at [facility], [address] [place] [id number] | | | REPORT STATUS 09/12/2013 FINAL [...]
--- OUTSIDE RECORDS SUMMARY | ~2020-01-30 | XMS | Encounter Summary ---
Demographics + + + | Address | [address] | | | [place] [address] | + + + | Home Phone [...] | [facility] | | | and [place] | + + + | Organization | [facility] | [...] [place] | | | | | [address] | | + + + + + Care Team Providers + +------+ + | Care Cadd Technician Name | Role | Phone | [...] [place] | | | | | [address] | [address] | | | | | [phone] | | | | | | | [...] EXTERNAL | | | | performed at [facility], [address] | | LAB | | | | [facility] | | | | | | [place] [address] | | | | + + + + + + | HCV | [id number] (A)Comment: | IU/mL | EXTERNAL | | [...] | | | | | | [place] [address] | | | | + + + [...]
--- OUTSIDE RECORDS SUMMARY | ~2020-01-30 | XMS | Encounter Summary ---
Demographics + + + | Address | [address] | | | [place] [address] | + + + | Home Phone [...] + | Author | [facility] | | | and [place] | + + + | Organization | [facility] | [...] [place] | | | | | [address] | | + + + + + Care Team Providers + +------+ + | Care Television Announcer Name | Role | Phone | [...] | | | | [address] [facility] | [place], [place] | | | | | [address] [place] | [address] | | | | | [address] | [phone] | | | | | [phone] | | | +--------+--------+ + + + [...]
--- OUTSIDE RECORDS SUMMARY | ~2020-01-30 | XMS | Encounter Summary ---
Demographics + + + | Address | [address] | | | [place] [address] | + + + | Home Phone [...] + + | Author | [facility] | | | and [place] | + + + | Organization | [facility] | | [...] [place] | | | | | [address] | | + + + + + Care Team Providers + +------+ + | Care Employee Training Specialist Name | Role | Phone | [...] | 01/21/ | Telephone | [facility] | Adrian Aponte MD | Vomiting | | 2018 | | GASTROENTEROLOGY | [address] [facility] | | | | | [address] [facility] | [place], [place] | | | | | [address] [place] | [address] | | | | | [address] | [phone] | | | | | [phone] | | | +--------+ + + + [...]
--- OUTSIDE RECORDS SUMMARY | ~2020-01-30 | XMS | Encounter Summary ---
Demographics + + + | Address | [address] | | | [place] [address] | + + + | Home Phone | | + + + | Preferred Language | Unknown | + + + | Marital Status | | + + + | Anabaptist Affiliation | Unknown | + + + [...] Team Providers + +------+ + | Care Power Barker Operator Name | Role | Phone | [...] [address] | | | | | [address] | [facility] | | | | | Loop Physician's | [place], [place] | | | | | [address], [facility] Floor | [address] | | | | | [place], [place] | [phone] | | | | | [address] | | | | | | [phone] | | | +--------+ + + + [...]
--- OUTSIDE RECORDS SUMMARY | ~2020-01-30 | XMS | Encounter Summary ---
Demographics + + + | Address | [address] | | | [place] [address] | + + + | Home Phone [...] + + + | Author | [facility] | + + + | Organization | [facility] | + + + | Address | Unknown | + + + | Phone | Unavailable | + + + Support + + +---------+ + | Name | Relationship | Address | Phone | + + +---------+ + | Maria Isabel Cespedes | ECON | Unknown | | + + +---------+ + Care Team Providers + +------+ + | Care Technology Sales Representative Name | Role | Phone | [...] | | | [address] | [facility] | | | | | Loop Physician's | [place], [place] | | | | | [address], [facility] Floor | [address] | | | | | [place], [place] | [phone] | | | | | [address] | | | | | | [phone] | | | +--------+ + + + [...]
--- OUTSIDE RECORDS SUMMARY | ~2020-01-30 | XMS | Encounter Summary ---
Demographics + + + | Address | [address] | | | [place] [address] | + + + | Home Phone [...] + | Author | [facility] | | | and [place] | + + + | Organization | [facility] | [...] [place] | | | | | [address] | | + + + + + Care Team Providers + +------+ + | Care Distribution Designer Name | Role | Phone | [...] [place] | | | | | [address] | [address] | | | | | [phone] | [phone] | | | | | | | [...] EXTERNAL LAB | | Testing performed at [facility] | | | Health;[address];[place] [address] CULTURE | | | NO GROWTH 6 DAYS | | | Testing performed at [facility], [address], | | | [place] [address] REPORT STATUS | | | 09/07/2013 FINAL [...]
--- OUTSIDE RECORDS SUMMARY | ~2020-01-30 | XMS | Encounter Summary ---
Demographics + + + | Address | [address] | | | [place] [address] | + + + | Home Phone [...] Providers + +------+ + | Care Manager Pipeline Name | Role | Phone | + +------+ + | Allison Fairchild DERMATOLOGY SALES REPRESENTATIVE | PCP | | + +------+ + [...] | | | | | spondylosis | DERMATOLOGY SALES REPRESENTATIVE Good | [address] [facility] | | | | | with | Lio | [address] | | | | | radiculopath | [facility] | [place], | | | | | y, lumbar | [address] | [place] | | | | | region | [address] | [address] | | | | | Acute kidney | [facility], | Phone: | | | | | failure, | [place] [address] | [phone] | | | | | unspecified | Phone: | Fax: | | | | | Other | [phone] | [phone] | | | | | disorder of | Fax: | | | | | | circulatory | [phone] | | | | | | system [...] | | | | | | [facility] | | | | | | | PATIENT | | | | | | | LEVEL II [place] | | | | | | [...] 2019 | Visit | Physicians [address] | [address] | (Primary Dx) | | | | [address] | [address] | | | | | Loop Physician's | [place], [place] | | | | | [address], [address] Floor | [address] | | | | | [place], [place] | [phone] | | | | | [address] | | | | | | [phone] | | | +--------+---------+ + + + [...] findings, assessment and plan. Malou Bo M.D. [address] Mailcode: Pv35 [place] [address] cMoe DENIS, Debbie - 0 11/02/2018 3:30 PM PST RHEUMATOLOGY NEW VISIT PCP JUAN JOSÉ Juarez [place] [address] [place] [address] Chief Complaint: renal artery abnormalities, evaluate for [...] was instructed to schedule a visit wi [facility] rheumatology Dr Howard, but has been unable to get in until today. Here with his . Traveled here from [place], [place]. Long drive which is uncomfortable for [...] 1,000 mg by mouth four times daily. gj-kad-jzrhx acid-lutein (CENTRUM SILVER) 400-250 mcg oral tablet,chewable [...] ESR ~54 suggestive of a more ac [place] process, although imperfect. No clear signs of [...] Em MD RHEUMATOLOGY AT [facility] [address] Mailcode: [address] [place] [address] documented in this e ncounter [...] | + + + + + | [facility] | [address] | [place] [address] | | | SERVICES, CORE | DORIAN [...] | + + + + + | [facility] | [address] | [place] [address] | | | SERVICES, CORE | PARK [...] [facility] | | | NIL | by KARAL[address] | | REG UNIV | | | | Manohar Lacey, [facility] | | PTH - INTFC | | | | [address] | | | | | | [phone].[facility]. | | | | | | Melecio [...] (http://www.cdc.gov/mmwr | | | | | | /preview/mmwrhtml/xw5856 | | | | | | a1.htm), [...] [facility] | [address] | [place], [place] | | | UNIV PTH - INTFC | | [address] | | + + + + + [...] | + + + + + | [facility] | [address] | [place] [address] | | | SERVICES, CORE | DORIAN [...] [facility] | [address] | [place] [address] | | | CHUYITA, CORE | PARK [...] | | | LABORATORY | | | [facility] | | | SERVICES, | | | [...] the MDRD equation recommended by the | [facility] | | National Kidney Disease Education Program. 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
--- OUTSIDE RECORDS SUMMARY | ~2020-01-30 | XMS | Encounter Summary ---
Demographics + + + | Address | [address] | | | [place] [address] | + + + | Home Phone [...] | [facility] | | | and [place] | + + + | Organization | [facility] | [...] [place] | | | | | [address] | | + + + + + Care Team Providers + +------+ + | Care Casting Coordinator Name | Role | Phone | + +------+ + | Allison Fairchild NP | PCP | | + +------+ + Encounter Details +--------+ + + + + | Date | Type | Department | Care Team | Description | +--------+ + + + + | 12/10/ | Hospital | [facility] | Conversion | Closed compression | | 2017 | Encounter | [facility] | Transaction, | fracture of fourth | | | | [address] | Provider Unknown | lumbar vertebra, | | | | [place], [place] | [phone] | initial encounter | | | | [address] | | ([facility]); Low back | | | | [phone] | Bryant Forrest, | pain, unspecified | | | | | MD [address] | back pain | | | | | [address]VE [place], [place] | laterality, | | | | | [address] | unspecified | | | | | [...]
--- OUTSIDE RECORDS SUMMARY | ~2020-01-30 | XMS | Encounter Summary ---
Demographics + + + | Address | [address] | | | [place] [address] | + + + | Home Phone [...] | Author | [facility] | | | and [place] | + + + | Organization | [facility] | | | [...] [place] | | | | | [address] | | + + + + + Care Team Providers + +------+ + | Care Rivet Driver Name | Role | Phone | [...] [place] | | | | | [address] | [address] | | | | | [phone] | [phone] | | | | | | | [...] | | | | | [place] [address] | | | | + + + [...]
--- OUTSIDE RECORDS SUMMARY | ~2020-01-30 | XMS | Encounter Summary ---
Demographics + + + | Address | [address] | | | [place] [address] | + + + | Home Phone [...] | Author | [facility] | | | and [place] | + + + | Organization | [facility] | | | [...] [place] | | | | | [address] | | + + + + + Care Team Providers + +------+ + | Care Sql Bi Developer Name | Role | Phone | [...] + + | 01/26/ | Telephone | [facility] | Dc Naik MD | Appointment | | 2017 | | GASTROENTEROLOGY | [address], [place] | (Scheduled stent | | | | [address] [place] | [address] [place], [place] | pull for February 12) | | | | [address] [place], [place] | [address] | | | | | [address] | | | | | | [phone] | | | +--------+ + + + [...]
--- OUTSIDE RECORDS SUMMARY | ~2020-01-30 | XMS | Encounter Summary ---
Demographics + + + | Address | [address] | | | [place] [address] | + + + | Home Phone [...] + + | Author | [facility] | | | and [place] | + + + | Organization | [facility] | | | [...] [place] | | | | | [address] | | + + + + + Care Team Providers + +------+ + | Care Book Agent Name | Role | Phone | + +------+ + | Allison Fairchild NP | PCP | | + +------+ + Encounter Details +--------+ + + + + | Date | Type | Department | Care Team | Description | +--------+ + + + + | 09/06/ | Hospital | [facility] | Anival Stevenson MD | | | 2019 | Encounter | [facility] | [address] | | | | | ULTRASOUND [address] | [address] [place], [place] | | | | | [address] | [address] | | | | | [place], [place] | | | | | | [address] | | | | | | [phone] | | | +--------+ + + + [...]
--- OUTSIDE RECORDS SUMMARY | ~2020-01-30 | XMS | Encounter Summary ---
Demographics + + + | Address | [address] | | | [place] [address] | + + + | Home Phone | | + + + | Preferred Language | Unknown | + + + | Marital Status | | + + + | Adventism Affiliation | 1013 | + + + | Race | Unknown | + + + | Ethnic Group | Unknown | + + + Author + + + | Author | [facility] | | | and [place] | + + + | Organization | [facility] | | | [...] [place] | | | | | [address] | | + + + + + Care Team Providers + +------+ + | Care Kettle Loader Name | Role | Phone | + [...] | | | [address] | [place] | | | | | [address] | [address] | | | | | [phone] | [phone] | | | | | | | [...] EXTERNAL LAB | | Testing performed at [facility] | | | Health;[address];[place] [address] CULTURE | | | NO GROWTH 6 DAYS | | | Testing performed at [facility], [address], | | | [place] [address] REPORT STATUS | | | 10/09/2013 FINAL [...]
--- OUTSIDE RECORDS SUMMARY | ~2020-01-30 | XMS | Encounter Summary ---
Demographics + + + | Address | [address] | | | [place] [address] | + + + | Home Phone [...] | Author | [facility] | | | and [place] | + + + | Organization | [facility] [...] [place] | | | | | [address] | | + + + + + Care Team Providers + +------+ + | Care Cardiac Cath Lab Radiology Technologist Name | Role | Phone | + +------+ + | Allison Fairchild NP | PCP | | + +------+ + Encounter Details +--------+ + + + + | Date | Type | Department | Care Team | Description | +--------+ + + + + | 02/07/ | Hospital | [facility] | Conversion | | | 2016 | Encounter | CENTER [facility] | Transaction, | | | | | [address] | Provider Unknown | | | | | [place], [place] | [phone] | | | | | [address] | | | | | | [phone] | Jamie Bentley MD | | | | | | [address] [facility] [address] | | | | | | [address] [place], [place] | | | | | | [address] | | | | | | | [...] | | | | TCL, [address] | | | | | | [place] | | | | | | [address] | | | | + + + + + + | Red Blood | 4.93Comment: Testing | 4.20 - 5.70 | EXTERNAL | | | Cells | performed at TCL, [address] | M/uL | LAB | | | Counted | [facility], | | | | | | [place] [address] | | | | + + + + + + | Hemoglobin | 15.3Comment: Testing | 13.2 - 17.0 | EXTERNAL | | | | performed at TC, [address] | g/dL | LAB | | | | [address], | | | | | | [place] [address] | | | | + + + + + + | Hematocrit, | 45.9Comment: Testing | 39.0 - 50.0 % | EXTERNAL | | | POC | performed at TCL, [address] | | LAB | | | | [place], | | | | | | [place] [address] | | | | + + + + + + | MCV | 93.2Comment: Testing | 80.0 - 100.0 fl | EXTERNAL | | | | performed at TCL, [address] | | LAB | | | | [address], | | | | | | [place] [address] | | | | + + + + + + | MCH | 31.1Comment: Testing | 27.0 - 34.0 pg | EXTERNAL | | | | performed at T[facility], [address] | | LAB | | | | [address], | | | | | | [place] [address] | | | | + + + [...] | | | | | [place] [address] | | | | + + + + + + | Platelet | 379Comment: Testing | 150 - 400 K/uL | EXTERNAL | | | Count | performed at TCL, [address] | | LAB | | | Plasma | [address], | | | | | | [place] [address] | | | | + + + + + + | MPV | 9.3Comment: Testing | fl | EXTERNAL | | | | performed at TCL, [address] | | LAB | | | | [place], | | | | | | [place] [address] | | | | + + + + + + | Differentia | AUTOMATEDComment: | | EXTERNAL | | | l Type | Testing performed at | | LAB | | | | TCL, [address] | | | | | | [place] | | | | | | [address] | | | | + + + + + + | % Segmented | 59.79Comment: Testing | % | EXTERNAL | | | | performed at TCL, [address] | | LAB | | | Neutrophils | [place], | | | | | | [place] [address] | | | | + + + + + + | % | 29.58Comment: Testing | % | EXTERNAL | | | Lymphocytes | performed at TCL, [address] | | LAB | | | | [address], | | | | | | [place] [address] | | | | + + + + + + | % Monocytes | 8.82Comment: Testing | % | EXTERNAL | | | | performed at TCL, [address] | | LAB | | | | [address], | | | | | | [place] [address] | | | | + + + + + + | % | 0.86Comment: Testing | % | EXTERNAL | | | Eosinophils | performed at TCL, [address] | | LAB | | | | [place], | | | | | | [place] [address] | | | | + + + + + + | % Basophils | 0.95Comment: Testing | % | EXTERNAL | | | | performed at TCL, [address] | | LAB | | | | [address], | | | | | | [place] [address] | | | | + + + + + + | Absolute | 8.92 (H)Comment: Testing | 1.90 - 7.40 | EXTERNAL | | | Segmented | performed at [facility], [address] | K/uL | LAB | | | Neutrophils | [address], | | | | | | [place] [address] | | | | + + + + + + | Absolute | 4.41 (H)Comment: Testing | 1.00 - 3.90 | EXTERNAL | | | Lymphocytes | performed at [facility], [address] | K/uL | LAB | | | | [address], | | | | | | [place] [address] | | | | + + + + + + | Absolute | 1.32 (H)Comment: Testing | 0.00 - 0.80 | EXTERNAL | | | Monocytes | performed at [facility], [address] | K/uL | LAB | | | | [address], | | | | | | [place] [address] | | | | + + + + + + | Absolute | 0.13Comment: Testing | 0.00 - 0.50 | EXTERNAL | | | Eosinophils | performed at [facility], [address] | K/uL | LAB | | | | [address], | | | | | | [place] [address] | | | | + + + + + + | Absolute | 0.14 (H)Comment: Testing | 0.00 - 0.10 | EXTERNAL | | | Basophils | performed at [facility], [address] | K/uL | LAB | | | | [address], | | | | | | [place] [address] | | | | + + + [...]
--- OUTSIDE RECORDS SUMMARY | ~2020-01-30 | XMS | Clinical Summary ---
Demographics + + + | Address | [address] | | | [place] [address] | + + + | Home Phone [...] Author | [facility] | | | and [place] | + + + | Organization | [facility] | | | and [place] | + + + | Address | Unknown | + + + | Phone | Unavailable | + + + Support + + + + + | Name | Relationship | Address | Phone | + + + + + | Teodora Cepsedes | ECON | [address] | | | | | [place] | | | | | [address] | | + + + + + Care Team Providers + +------+ + | Care Irs Agent Name | Role | Phone | [...] automatically from request for surgery | | [id number] | + + + + + | [...] which he was flown to | | [facility] and had multiple injuries to his gallbladder [...] | + +-------+--------+ +--------+--------+--------+ | Xgrft Strtce [id number] Frm - | Graft | Anteri | ALLERGAN - | | 07/07/ | [id number] | | SnaImplanted: Qty: 1 on | | or: | ALLG | | 2020 | 2P /NA | | 09/06/2019 by Anival Stevenson, | | Abdome | | | | | | MD at [facility] | | n | | | | /[id number] | | [facility] | | | | | | 181-11 | | | | | | | | 0 | + +-------+--------+ +--------+--------+--------+ | Xgrft Strtce [id number] Frm - | Graft | Anteri | ALLERGAN - | | 02/04/ | [id number] | | SnaImplanted: Qty: 1 on | | or: | ALLG | | 2020 | 2P /NA | | 09/06/2019 by Anival Stevenson, | | Abdome | | | | | | MD at [facility] | | n | | | | /[id number] | | [facility] | | | | | | 125-08 | | | | | | | | 8 | + +-------+--------+ +--------+--------+--------+ | Stent Bili Advnx 10fr 5cm - | Stent | N/A: | BOSTON | | 11/02/ | [id number] | | [id number]: | | Bile | SCIENTIFIC | | 2020 | 320 | | Qty: 1 on 01/22/2018 by | | Duct | SIRISHA - BSCI | | | /[id number] | | Dc Naik MD at [facility] | | | | | | [id number] | | [facility] | | | | | | [address] | | CENTER | | | | | | /[id number] | | | | | | | | 503 | + +-------+--------+ +--------+--------+--------+ | Epic Vascular StentImplanted: | Stent | | [facility]ON | | 01/05/ | [id number] | | Qty: 1 on 06/01/2019 by Felix, | | | SCIENTIFIC | | 2023 | [id number] | | Rich Alvarado MD | | | SIRISHA - BSCI | | | 020 / | | | | | | | | /[id number] | | | | | | | | 961 | + +-------+--------+ +--------+--------+--------+ | Mesh Hernia Proceed 6in X 8in | | | JJHCS | | 02/03/ | [id number] | | - [id number]: Qty: 1 | | | ETHICON | | 2014 | / | | on 03/27/2014 by Mc, | | | SUTURE - | | | /[id number] | | MD Jamie | | | ETHRicki | | | 5 | + +-------+--------+ +--------+--------+--------+ | Mesh Hernia Composix Kugel | | N/A: | DAVOL - DIV | | 05/03/ | [id number] | | Oval Large - | | Abdome | OF BARD - | | 2015 | 2 / | | [id number]: Qty: 1 on | | n | DAVID | | | /[id number] | | 07/03/2014 by Jamie Bentley, | | | | | | 417 | | | | | | | | | + +-------+--------+ +--------+--------+--------+ | Mesh Ventrio Oval Eptfe | | | NA UNKNOWN | | 05/07/ | [id number] | | Xlarge - [id number]: | | | | | 2016 | 8 | | Qty: 1 on 12/18/2014 by | | | | | | /[id number] | | Jamie Bentley MD | | | | | | 18 | | | | | | | | /[id number] | | | | | | | | 608 | + +-------+--------+ +--------+--------+--------+ | Mesh Prol [id number] - | | | JJHCS | | 07/07/ | PMH / | | SnaImplanted: Qty: 1 on | | | ETHICON | | 2020 | / | | 11/10/2016 by Jamie Bentley, | | | ENDO -YESSENIA | | | [id number] | | | | | 867 - [...] | NA UNKNOWN | | 05/06/ | [id number] | | 4"X6" - [id number] | | | | | 2014 | 0 / | | | | | | | | /RODRIGO | | | | | | | | 760 | + +------+------+ +--------+--------+--------+ | Mesh Hernia Composix Kugel | | | TAMMY - DIV | | | [id number] | | Oval Large - [id number] | | | OF - | | | 2 | | | | | DAVID | | | /[id number] | | | | | | | [...] | [employer] | MODA | [id number] | | [phone] | | Medica | | MEDICAID HMO | HEALTH | | 2013-P | 1 | | id | | | MDCD | | resent | | | | | | [place] | | | | | | + +--------+ +--------+ +---------+--------+ | [employer] | MODA | [id number] | 05/12/20 | [phone] | | Medica | | MEDICAID HMO [...] | | 1960 | | [place] [address] | | | [place] | | | 0 (Home) | | + +--------+ +--------+ + + | Reza Cespedes | Person | Self | [birth year] | [address] | | | al/Fam | | 1961 | | [place] [address] | | | [place] | | | 0 (Home) | | + +--------+ +--------+ + + Advance Directives + + + + + | Type | Date Recorded | Patient | Explanation | | | | General Assembler | | + + + + + | Power of | | | | | Legal Records Manager | | | | + + + [...]
--- OUTSIDE RECORDS SUMMARY | ~2020-01-30 | XMS | Encounter Summary ---
Demographics + + + | Address | [address] | | | [place] [address] | + + + | Home Phone [...] Author | [facility] | | | and [place] | + + + | Organization | [facility] | [...] [place] | | | | | [address] | | + + + + + Care Team Providers + +------+ + | Care Grain Distributor Name | Role | Phone | + [...] + | 10/08/ | Refill | [facility] | Adrian Aponte MD | Medication Refill; | | 2017 | | GASTROENTEROLOGY | [address] [facility] | Diagnostic Order | | | | [address] [facility] | [place], [place] | ([place]) | | | | [address] [place], [place] | [address] | | | | | [address] | [phone] | | | | | [phone] | | | +--------+--------+ + + + [...]
--- OUTSIDE RECORDS SUMMARY | ~2020-01-30 | XMS | Encounter Summary ---
Demographics + + + | Address | [address] | | | [place] [address] | + + + | Home Phone [...] Author | [facility] | | | and Alexana | + + + | Organization | [facility] [...] [place] | | | | | [address] | | + + + + + Care Team Providers + +------+ + | Care Sheet Rock Taper Name | Role | Phone | + +------+ + PCP | Unavailable | + +------+ + Encounter Details +--------+ + + + + | Date | Type | Department | Care Team | Description | +--------+ + + + + | 03/27/ | [facility] | [facility] | Jamie Bentley MD | Incisional hernia | | 2013 | Encounter | [facility] | [address] | | | | | [address] | [address] [place], [place] | | | | | [place], [place] | [address] | | | | | [address] | | | | | | [phone] | | | +--------+ + + + [...] 03/27/141005 Date of Service: 03/27/141005 Status: Signed Tunnel Man: Bradley West RPH (Pharmacist) Clinical Pharmacy Note: Renal Monitoring Reza Cespedes 53 y.o. male Ht Readings from Last 1 Encounters: 03/27/14 1.803 m (5' 11") Wt Readings from Last 1 Encounters: 03/27/14 86 kg (189 lb 9.5 oz) CREATININE Date Value Range Status 03/24/2014 0.93 0.70 - 1.30 mg/dL Final Testing performed at [facility];[place] [address] CREATININE: 0.93 (03/24/14 1540) Estimated creatinine clearance - Cockcroft-Gault CrCl: 96.7 mL/min Pharmacy dosing for renal function per Dr. Bentley. Currently, there are no medications needing to be adjusted. Pharmacy will continue to monit or for changes in medication orders and in renal function and adjust accordingly. Bradley West [facility] 03/27/2014 10:06 AM docume nted in this encounter Plan of Treatment Not on filedocumented as of this encounter Visit Diagnoses + + | Diagnosis | + + | Incisional hernia Incisional hernia without mention of obstruction or gangrene | + + documented in this encounter
--- OUTSIDE RECORDS SUMMARY | ~2020-01-30 | XMS | Encounter Summary ---
Demographics + + + | Address | [address] | | | [place] [address] | + + + | Home Phone [...] Author | [facility] | | | and Alexana | + + + | Organization | [facility] | | | and [place] | + + + | Address | Unknown | + + + | Phone | Unavailable | + + + Support + + + + + | Name | Relationship | Address | Phone | + + + + + | Teodora Cespedes | ECON | [address] | | | | | [place] | | | | | [address] | | + + + + + Care Team Providers + +------+ + | Care Fisher Diving Name | Role | Phone | + [...] [place] | | | | | [facility] [place] | [address] | | | | | [address] | | | | | | [phone] | | | +--------+ + + + [...] 8.45 RAP: 5 mmHg | | | Antique Clock Repairer: Authenticated by: Ana Berger Report Date/Time: | | | 5-23-2018 17:57:39 | | + + + + + | Procedure Note | + + | Luis Long Conversion - 04/28/2019 3:53 PM PDT Patient Name: Shanna Cespedes of | | : 1960 Performing Physician: nAa | | Celine INDICATIONS------ | | -----Inpatient: [...] cmLVPWd: 0.89 | | cmLVOT Area: 3.74 [id number] Diam: 2.18 cm%FS: 37.07 %EF(Teich): 66.67 %ESV(Teich): [...] mlLAESV Index (A-L): 29.42 ml/m2LAAs A2C: 20.20 [id number] A-L A2C: 67.49 | | mlLALs A2C: 5.13 cmLAAs A4C: 18.84 th7NXDCL A-L A4C: 54.93 mlLALs A4C: 5.48 | | cmRAAs: 16.81 ia8PLPFB A-L: 48.33 mlRAESV MOD: 46.23 mlRALs: 4.96 cmTAPSE: | | 2.69 cmAV maxP.02 mmHgAV meanP.05 mmHgAV Vmax: 1.32 m/Lacy Vmean: 0.81 | | m/Lacy VTI: 23.45 cmAVA Vmax: 3.31 cm2AVA (VTI): 3.75 gw8FXLM Vmax: 0.00 | | cm2/m2AVAI (VTI): 0.00 cm2/m2LVOT maxP.51 mmHgLVOT meanP.59 mmHgLVSI Dopp: | | 41.16 ml/m2LVSV Dopp: 88.08 mlLVOT Vmax: 1.17 m/sLVOT Vmean: 0.75 m/sLVOT VTI: | | 23.52 cmMV A Tano: 0.72 m/sMV DecT: 191.68 msMV E Tano: 0.91 m/sMV E/A Ratio: | | 1.26MV PHT: 55.58 msMVA By PHT: 3.95 pp8Mhutnc e': 0.07 m/sSeptal E/e': | | 13.00Lateral e': 0.10 m/sLateral E/e': 8.45RAP: 5 mmHg Antique Clock Repairer:Authenticated | | by: Ana ValenciaReport Date/Time: 01-27-2018 [...] | |RAP: 5 mmHg | | | |Antique Clock Repairer: | |Authenticated by: Ana Berger | |Report [...]
--- OUTSIDE RECORDS SUMMARY | ~2020-01-30 | XMS | Encounter Summary ---
Demographics + + + | Address | [address] | | | [place] [address] | + + + | Home Phone [...] | Author | [facility] | | | and [place] | + + + | Organization | [facility] [...] [place] | | | | | [address] | | + + + + + Care Team Providers + +------+ + | Care Congressional Aide Name | Role | Phone | [...] | | | | EMERGENCY CENTER | [place] [address] | without sciatica; | | 03/04/ | | [address] | [phone] | Lower abdominal pain | | 2016 | | [place], [place] | | | | | | [address] | | | | | | [phone] | | | +--------+ + + + [...] 2:46AM | | | Referring Provider Line: [phone] ID: [id number] | | + + + [...] Alignment: Unremarkable. | | | Bones: Five qtf-fxi-hqlhdkh lumbar vertebral bodies are present. | | [...] technique. FINDINGS:Alignment: | | Unremarkable. Bones: Five sby-czq-pyarhql lumbar vertebral bodies are present. | | [...] 2016 2:46AM Referring | | Provider Line: [phone] ID: [id number] | | | |L1-L2: Minimal [...] 04 2016 2:46AM Referring Provider Line: [phone] ID: [id number] | + + CT Abdomen [...] | | | 2:30AM Referring Provider Line: [phone] ID: [id number] | | + + + [...] 2016 2:30AM | | Referring Provider Line: [phone] ID: [id number] | |Adrenal Glands: Normal. | [...] 04 2016 2:30AM Referring Provider Line: [phone] ID: [id number] | + + Lactic Acid (03/04/2016 12:16 AM PDT) + + + + + + | Component | Value | Ref Range | Performed | Pathologist | | | | | At | Signature | + + + + + + | Lactate | 1.0Comment: Testing | 0.4 - 2.0 | EXTERNAL | | | | performed at [facility];888 | mmol/L | LAB | | | [...] EXTERNAL | | | | performed at [facility];[address] | | LAB | | | | [address];[place], [place] | | | | | | [address] | | | | + + + [...] EXTERNAL | | | | performed at [facility];[address] | K/uL | LAB | | | | [address];[place] | | | | | | [address] | | | | + + + + + + | Red Blood | 5.01Comment: Testing | 4.20 - 5.70 | EXTERNAL | | | Cells | performed at [facility];888 | M/uL | LAB | | | Counted | [address];[place] | | | | | | [address] | | | | + + + + + + | Hemoglobin | 15.5Comment: Testing | 13.2 - 17.0 | EXTERNAL | | | | performed at [facility];888 | g/dL | LAB | | | | [address];[place] | | | | | | [address] | | | | + + + + + + | Hematocrit, | 46.2Comment: Testing | 39.0 - 50.0 % | EXTERNAL | | | POC | performed at [facility];[address] | | LAB | | | | [address];[place] | | | | | | [address] | | | | + + + + + + | MCV | 92.2Comment: Testing | 80.0 - 100.0 fl | EXTERNAL | | | | performed at [facility];[address] | | LAB | | | | [address];[place] | | | | | | [address] | | | | + + + + + + | MCH | 30.9Comment: Testing | 27.0 - 34.0 pg | EXTERNAL | | | | performed at [facility];[address] | | LAB | | | | [address];[place] | | | | | | [address] | | | | + + + + + + | MCHC | 33.6Comment: Testing | 32.0 - 35.5 | EXTERNAL | | | | performed at [facility];888 | g/dL | LAB | | | | [address];[place] | | | | | | [address] | | | | + + + + + + | RDW-CV | 46.8Comment: Testing | 37 - 53 fl | EXTERNAL | | | | performed at [facility];[address] | | LAB | | | | [address];[place] | | | | | | [address] | | | | + + + + + + | Platelet | 286Comment: Testing | 150 - 400 K/uL | EXTERNAL | | | Count | performed at [facility];888 | | LAB | | | Plasma | [address];[place] | | | | | | [address] | | | | + + + + + + | MPV | 8.4Comment: Testing | fl | EXTERNAL | | | | performed at [facility];[address] | | LAB | | | | [address];[place] | | | | | | [address] | | | | + + + + + + | Differentia | AUTOMATEDComment: | | EXTERNAL | | | l Type | Testing performed at | | LAB | | | | [facility];[address];[place] [address] | | | | + + + + + + | % Segmented | 54.43Comment: Testing | % | EXTERNAL | | | | performed at [facility];[address] | | LAB | | | Neutrophils | [address];[place] | | | | | | [address] | | | | + + + + + + | % | 36.35Comment: Testing | % | EXTERNAL | | | Lymphocytes | performed at [facility];[address] | | LAB | | | | [address];[place] | | | | | | [address] | | | | + + + + + + | % Monocytes | 6.73Comment: Testing | % | EXTERNAL | | | | performed at [facility];[address] | | LAB | | | | [address];[place] | | | | | | [address] | | | | + + + + + + | % | 1.39Comment: Testing | % | EXTERNAL | | | Eosinophils | performed at [facility];[address] | | LAB | | | | [address];[place] | | | | | | [address] | | | | + + + + + + | % Basophils | 1.10Comment: Testing | % | EXTERNAL | | | | performed at [facility];[address] | | LAB | | | | [address];[place] | | | | | | [address] | | | | + + + + + + | Absolute | 5.93Comment: Testing | 1.90 - 7.40 | EXTERNAL | | | Segmented | performed at [facility];888 | K/uL | LAB | | | Neutrophils | [address];[place] | | | | | | [address] | | | | + + + + + + | Absolute | 3.96 (H)Comment: Testing | 1.00 - 3.90 | EXTERNAL | | | Lymphocytes | performed at [facility];888 | K/uL | LAB | | | | [address];[place] | | | | | | [address] | | | | + + + + + + | Absolute | 0.73Comment: Testing | 0.00 - 0.80 | EXTERNAL | | | Monocytes | performed at [facility];888 | K/uL | LAB | | | | [address];[place] | | | | | | [address] | | | | + + + + + + | Absolute | 0.15Comment: Testing | 0.00 - 0.50 | EXTERNAL | | | Eosinophils | performed at [facility];888 | K/uL | LAB | | | | [address];[place] | | | | | | [address] | | | | + + + + + + | Absolute | 0.12 (H)Comment: Testing | 0.00 - 0.10 | EXTERNAL | | | Basophils | performed at [facility];888 | K/uL | LAB | | | | [address];[place] | | | | | | [address] | | | | + + + [...] EXTERNAL | | | | performed at [facility] | | LAB | | | | [address] [facility];[place], [place] | | | | | | [address] | | | | + + + [...] LAB | | | | performed at [facility] | | | | | | [address];[place], [place] | | | | | | [address] | | | | + + + + + + | K | 3.8Comment: Testing | 3.5 - 4.9 | EXTERNAL | | | | performed at [facility];888 | mmol/L | LAB | | | | [address];[place] | | | | | | [address] | | | | + + + + + + | Cl | 110 (H)Comment: Testing | 99 - 109 mmol/L | EXTERNAL | | | | performed at [facility];[address] | | LAB | | | | [address];[place] | | | | | | [address] | | | | + + + + + + | CO2 | 25Comment: Testing | 23 - 32 mmol/L | EXTERNAL | | | | performed at [facility];[address] | | LAB | | | | [address];[place] | | | | | | [address] | | | | + + + + + + | Anion Gap | 8Comment: Testing | 5 - 20 mmol/L | EXTERNAL | | | | performed at [facility];[address] | | LAB | | | | [address];[place] | | | | | | [address] | | | | + + + + + + | Glucose, | 96Comment: Testing | 65 - 99 mg/dL | EXTERNAL | | | Fasting | performed at [facility];[address] | | LAB | | | | [address];[place] | | | | | | [address] | | | | + + + + + + | BUN | 19Comment: Testing | 8 - 25 mg/dL | EXTERNAL | | | | performed at [facility];[address] | | LAB | | | | [address];[place] | | | | | | [address] | | | | + + + + + + | Creatinine | 1.0Comment: Testing | 0.70 - 1.30 | EXTERNAL | | | | performed at [facility];888 | mg/dL | LAB | | | | [address];[place] | | | | | | [address] | | | | + + + + + + | BUN/Creatin | 19Comment: Testing | | EXTERNAL | | | ine Ratio | performed at [facility];[address] | | LAB | | | | [address];[place] | | | | | | [address] | | | | + + + + + + | Calcium | 9.1Comment: Testing | 8.5 - 10.5 | EXTERNAL | | | | performed at [facility];888 | mg/dL | LAB | | | | [address];[place] | | | | | | [address] | | | | + + + + + + | Protein, | 7.5Comment: Testing | 6.3 - 8.2 g/dL | EXTERNAL | | | Total | performed at [facility];[address] | | LAB | | | | [address];[place] | | | | | | [address] | | | | + + + + + + | Albumin | 3.9Comment: Testing | 3.6 - 5.0 g/dL | EXTERNAL | | | | performed at [facility];[address] | | LAB | | | | [address];[place] | | | | | | [address] | | | | + + + + + + | Globulin | 3.6Comment: Testing | 1.3 - 4.9 g/dL | EXTERNAL | | | | performed at [facility];[address] | | LAB | | | | [address];[place] | | | | | | [address] | | | | + + + + + + | A/G Ratio | 1.1Comment: Testing | 1.0 - 2.4 | EXTERNAL | | | | performed at [facility];[address] | | LAB | | | | [address];[place] | | | | | | [address] | | | | + + + + + + | Bilirubin | 0.5Comment: Testing | 0.1 - 1.5 mg/dL | EXTERNAL | | | Total | performed at [facility];[address] | | LAB | | | | [address];[place] | | | | | | [address] | | | | + + + + + + | ALP, | 98Comment: Testing | 35 - 115 U/L | EXTERNAL | | | External | performed at [facility];[address] | | LAB | | | | [address];[place] | | | | | | [address] | | | | + + + + + + | AST | 45Comment: Testing | 10 - 45 U/L | EXTERNAL | | | | performed at [facility];[address] | | LAB | | | | [address];[place] | | | | | | [address] | | | | + + + + + + | ALT | 48Comment: Testing | 10 - 65 U/L | EXTERNAL | | | | performed at [facility];[address] | | LAB | | | | [address];[place] | | | | | | [address] | | | | + + + [...] | | | | | | at [facility];[address] [place] [address] | | | | | | [facility];[place] [address] | | | | + + + [...]
--- OUTSIDE RECORDS SUMMARY | ~2020-01-30 | XMS | Encounter Summary ---
Demographics + + + | Address | [address] | | | [place] [address] | + + + | Home Phone [...] Author | [facility] | | | and [place] | + + + | Organization | [facility] [...] [place] | | | | | [address] | | + + + + + Care Team Providers + +------+ + | Care Telesales Advisor Name | Role | Phone | [...] + + | 01/04/ | Telephone | [facility] | Adrian Aponte MD | Medication Refill | | 2018 | | GASTROENTEROLOGY | [address] [facility] | Assistance | | | | [address] [facility] | [place], [place] | | | | | [address] [place], [place] | [address] | | | | | [address] | [phone] | | | | | [phone] | | | +--------+ + + + [...]
--- OUTSIDE RECORDS SUMMARY | ~2020-01-30 | XMS | Encounter Summary ---
Demographics + + + | Address | [address] | | | [place] [address] | + + + | Home Phone [...] Author | [facility] | | | and [place] | + + + | Organization | [facility] | | [...] [place] | | | | | [address] | | + + + + + Care Team Providers + +------+ + | Care Flipping Machine Operator Name | Role | Phone [...] + | 10/26/ | Telephone | [facility] | Adrian Aponte MD | Other | | 2016 | | GASTROENTEROLOGY | [address] | | | | | [address] [facility] | [place], [place] | | | | | [address] [place] | [address] | | | | | [address] | [phone] | | | | | [phone] | | | +--------+ + + + [...]
--- OUTSIDE RECORDS SUMMARY | ~2020-01-30 | XMS | Encounter Summary ---
Demographics + + + | Address | [address] | | | [place] [address] | + + + | Home Phone [...] | [facility] | | | and [place] | + + + | Organization | [facility] | [...] [place] | | | | | [address] | | + + + + + Care Team Providers + +------+ + | Care Skip Hoist Operator Name | Role | Phone | + +------+ + | Allison Fairchild NP | PCP | | + +------+ + Encounter Details +--------+ + + + + | Date | Type | Department | Care Team | Description | +--------+ + + + + | 09/07/ | Anesthesia | [facility] | [place], | | | 2019 | [facility] | MD [address] | | | | | ANESTHESIA [address] | [place] [address] | | | | | [address] | [phone] | | | | | [place], [place] | | | | | | [address] | | | | | | [phone] | | | +--------+ + + + [...]
--- OUTSIDE RECORDS SUMMARY | ~2020-01-30 | XMS | Encounter Summary ---
Demographics + + + | Address | [address] | | | [place] [address] | + + + | Home Phone [...] | Author | [facility] | | | and [place] | + + + | Organization | [facility] | [...] [place] | | | | | [address] | | + + + + + Care Team Providers + +------+ + | Care Dynamite Shooter Name | Role | Phone | + +------+ + | Allison Fairchild NP | PCP | | + +------+ + Encounter Details +--------+ + + + + | Date | Type | Department | Care Team | Description | +--------+ + + + + | 04/26/ | Orders Only | [facility] | Rich [place] MD | 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
--- OUTSIDE RECORDS SUMMARY | ~2020-01-30 | XMS | Encounter Summary ---
Demographics + + + | Address | [address] | | | [place] [address] | + + + | Home Phone [...] Author | [facility] | | | and [place] | + + + | Organization | [facility] | | [...] [place] | | | | | [address] | | + + + + + Care Team Providers + +------+ + | Care Transportation Sales Consultant Name | Role | Phone | [...] + + | 07/07/ | Telephone | [facility] | LillyRhianna, | Patient Concerns | | 2019 | | VISUAL DESIGNER | Pig Sticker | (discharge | | | | MANAGEMENT [address] | | instructions ) | | | | [address] [address] | | | | | | [facility] [place] | | | | | | [address] | | | | | | [phone] | | | +--------+ + + + [...]
--- OUTSIDE RECORDS SUMMARY | ~2020-01-30 | XMS | Encounter Summary ---
Demographics + + + | Address | [address] | | | [place] [address] | + + + | Home Phone [...] | Author | [facility] | | | and [place] | + + + | Organization | [facility] [...] [place] | | | | | [address] | | + + + + + Care Team Providers + +------+ + | Care Hose Inspector And Patcher Name | Role | Phone | + [...] + | 01/20/ | Telephone | [facility] | Adrian Aponte MD | Appointment | | 2018 | | GASTROENTEROLOGY | [address] | | | | | [address] [facility] | [place], [place] | | | | | [address] [place] [place] | [address] | | | | | [address] | [phone] | | | | | [phone] | | | +--------+ + + + [...]
--- OUTSIDE RECORDS SUMMARY | ~2020-01-30 | XMS | Encounter Summary ---
Demographics + + + | Address | [address] | | | [place] [address] | + + + | Home Phone | | + + + | Preferred Language | Unknown | + + + | Marital Status | | + + + | Congregational Affiliation | Unknown | + + + | Race | White | + + + | Ethnic Group | Not or | + + + Author + + + | Author | [facility] | + + + | Organization | [facility] | + + + | Address | Unknown | + + + | Phone | Unavailable | + + + Support + + +---------+ + | Name | Relationship | Address | Phone | + + +---------+ + | Maria Isabel Cespedes | ECON | Unknown | | + + +---------+ + Care Team Providers + +------+ + | Care Job Training Specialist Name | Role | Phone | + +------+ + | Allison Fairchild BASKET BRAIDER | PCP | | + +------+ + [...] | | | | | spondylosis | BASKET BRAIDER Good | [address] | | | | | with | Lio | [address] | | | | | radiculopath | [facility] | [place], | | | | | y, lumbar | [address] | [place] | | | | | region | [address] | [address] | | | | | Acute kidney | [facility], | Phone: | | | | | failure, | [place] [address] | [phone] | | | | | unspecified | Phone: | Fax: | | | | | Other | [phone] | [phone] | | | | | disorder of | Fax: | | | | | | circulatory | [phone] | | | | | | system [...] | Visit | Physicians Tate Rehman MD [address] | stenosis (HCC) | | | | [address] | [address] | (Primary Dx); ESR | | | | Loop Physician's | [place], [place] | raised; 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 radiology- stable - proximal SMA may also be slightly abnormal on 11/[address] [facility] radiology, leena mmend follow-up ultrasound, done 12/2018 limited but without obvious SMA changes - 02/2019: repeat CTA abd/pelvis but poor quality outside study with significant motion shannan fact, could not comment on renal aa or SMA. Chronic iliac dissection stable. Proximal aorta somewhat thickened. Overall suspicion for vasculitis low given variable vessel involvement, prolonged time period, dissections. Repeating CTA abd/pelvis at [facility] .S: Here with [place] Having pain [...] HPI. Please review the scanned document in [facility] for full details. - Cold all [...] 1,000 mg by mouth four times daily. ov-skp-qztia acid-lutein (CENTRUM SILVER) 400-250 mcg oral tablet,chewable [...] review findings with radiology early next w [facility] Plan- - follow-up RPR - encouraged patient [...] the attestation. Chiquis Norman MD RHEUMATOLOGY AT [address] Mailcode: Op09 [place] [address] Associated attestation - Dejah Aguilera MD - 03/14/2019 1:52 PM PDTI have seen and ev aluated this patient with Dr. Norman. I agree with the documented findings, assessment, an d plan as detailed above. Dejah Aguilera MD RHEUMATOLOGY AT [address] Mailcode: Pv35 [place] [address] documented in this encounter Plan [...]
--- OUTSIDE RECORDS SUMMARY | ~2020-01-30 | XMS | Encounter Summary ---
Demographics + + + | Address | [address] | | | [place] [address] | + + + | Home Phone [...] [facility] | | | and [place] | + + + | Organization | [facility] | | | [...] [place] | | | | | [address] | | + + + + + Care Team Providers + +------+ + | Care Burr Sander Name | Role | Phone | + +------+ + | Allison Fairchild NP | PCP | | + +------+ + Encounter Details +--------+ + + + + | Date | Type | Department | Care Team | Description | +--------+ + + + + | 09/06/ | Hospital | [facility] | Anival Stevenson MD | | | 2019 | Encounter | [facility] | [address] | | | | | ULTRASOUND [address] | [address] [place], [place] | | | | | [address] | [address] | | | | | [place], [place] | | | | | | [address] | | | | | | [phone] | | | +--------+ + + + [...]
--- OUTSIDE RECORDS SUMMARY | ~2020-01-30 | XMS | Encounter Summary ---
Demographics + + + | Address | [address] | | | [place] [address] | + + + | Home Phone [...] | Author | [facility] | | | and [place] | + + + | Organization | [facility] | [...] [place] | | | | | [address] | | + + + + + Care Team Providers + +------+ + | Care Proj Engineer Name | Role | Phone | + +------+ + | Allison Fairchild NP | PCP | | + +------+ + Encounter Details +--------+ + + + + | Date | Type | Department | Care Team | Description | +--------+ + + + + | 11/10/ | [facility] | [facility] | Jamie Bentley MD | Recurrent 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 He states his pain is at a tolerable level. He and his plan to stay at a [facility], close to the hospital since they live in [place] and do not want to travel th [...] Date of Service: 11/10/16 1342 Status: Signed Last Chalker: vE Mendoza RN (Registered Nurse) Pt unable to [...] Date of Service: 11/10/16 1039 Status: Signed Last Chalker: Elvi Reddy RN (Registered Nurse) [place] [...]
--- OUTSIDE RECORDS SUMMARY | ~2020-01-30 | XMS | Encounter Summary ---
Demographics + + + | Address | [address] | | | [place] [address] | + + + | Home Phone [...] | Author | [facility] | | | and [place] | + + + | Organization | [facility] | [...] [place] | | | | | [address] | | + + + + + Care Team Providers + +------+ + | Care Can Coverer Name | Role | Phone | + [...] + + | 09/06/ | Documentati | [facility] | Lesa Dodd, | Other (Labs from | | 2019 | on | INFECTIOUS DISEASE | Furniture Decals Inspector | [facility] | | | | [address] | | 08/29/2019(CBC,CMP,E | | | | [place] | | SR,CRP)..) | | | | [address] | | | | | | [phone] | | | +--------+ + + + [...] of this encounter Progress Notes Lesa Dodd, Furniture Decals Inspector - 09/06/2019 2:12 PM PSTLabs from [facility] DOS 08/08(CBC,CMP,ESR,CRP).. RECEIVED: 09/05/2019 Labs were abstracted into [employer] and sent to scan. Nicolette CMA. P [...] [address] | [place] | [phone] | | [facility] | | [address] | | + + + + + [...] [address] | [place] | [phone] | | [facility] | | [address] | | + + + + + [...] [address] | [place] | [phone] | | [facility] | | [address] | | + + + + + [...] + + + | REFERENCE LAB | [address] | [place] | [phone] | | [place] | | [address] | | + + + + + documented in this encounter Visit Diagnoses Not on filedocumented in this encounter"
--- OUTSIDE RECORDS SUMMARY | ~2020-01-30 | XMS | Encounter Summary ---
Demographics + + + | Address | [address] | | | [place] [address] | + + + | Home Phone [...] Author | [facility] | | | and [place] | + + + | Organization | [facility] | [...] [place] | | | | | [address] | | + + + + + Care Team Providers + +------+ + | Care Cardiac Care Unit Nurse Name | Role | Phone | [...] + + | 08/10/ | Telephone | [facility] | Hellen Avilez | Other (pt status | | 2019 | | INFECTIOUS DISEASE | L, RN | check) | | | | [address] | | | | | | [place] | | | | | | [address] | | | | | | [phone] | | | +--------+ + + + [...]
--- OUTSIDE RECORDS SUMMARY | ~2020-01-30 | XMS | Encounter Summary ---
Demographics + + + | Address | [address] | | | [place] [address] | + + + | Home Phone [...] Author | [facility] | | | and [place] | + + + | Organization | [facility] | | | [...] [place] | | | | | [address] | | + + + + + Care Team Providers + +------+ + | Care Director Of Special Events Name | Role | Phone | + [...] + + | 09/23/ | Telephone | [facility] | Anival Stevenson MD | Post-op Question | | 2020 | | GENERAL SURGERY [address] | [address] | | | | | [address] | [address] [place], [place] | | | | | [place], [place] | [address] | | | | | [address] | | | | | | [phone] | | | +--------+ + + + [...]
--- OUTSIDE RECORDS SUMMARY | ~2020-01-30 | XMS | Encounter Summary ---
Demographics + + + | Address | [address] | | | [place] [address] | + + + | Home Phone [...] | Author | [facility] | | | and [place] | + + + | Organization | [facility] | | | and [place] | + + + | Address | Unknown | + + + | Phone | Unavailable | + + + Support + + + + + | Name | Relationship | Address | Phone | + + + + + | Teodora Csepedes | ECON | [address] | | | | | [place] | | | | | [address] | | + + + + + Care Team Providers + +------+ + | Care Sulfonation Equipment Operator Name | Role | Phone | [...] Cassia [place] | | | | | [place], [place] | [address] | | | | | [address] | [place] [address] | | | | | [phone] | [phone] | | | | | | | [...] + + | Hemoglobin | 5.6Comment: The [place] | 4.0 - 6.0 % | EXTERNAL [...]
--- OUTSIDE RECORDS SUMMARY | ~2020-01-30 | XMS | Encounter Summary ---
Demographics + + + | Address | [address] | | | [place] [address] | + + + | Home Phone [...] Team Providers + +------+ + | Care Attraction Attendant Name | Role | Phone | + +------+ + | Allison Fairchild NP | PCP | | + +------+ + Encounter Details +--------+ + + + + | Date | Type | Department | Care Team | Description | +--------+ + + + + | 04/26/ | Documentati | [facility] | Jaspal Stevenson, | | | 2013 | on | Center at [facility] [address] | MD [address] | | | | | [address] | [place], [place] | | | | | Mailcode: [facility] | [address] | | | | | [facility] | [phone] | | | | | and [address], | | | | | | | | | | | | Floor [place], [place] | | | | | | [address] | | | | | | [phone] | | | +--------+ + + + [...]
--- OUTSIDE RECORDS SUMMARY | ~2020-01-30 | XMS | Encounter Summary ---
Demographics + + + | Address | [address] | | | [place] [address] | + + + | Home Phone [...] + + | Author | [facility] | | | and [place] | + + + | Organization | [facility] | [...] [place] | | | | | [address] | | + + + + + Care Team Providers + +------+ + | Care Housekeeping Assistant Name | Role | Phone | [...] [place] | | | | | [address] | [address] | | | | | [phone] | [phone] | | | | | | | [...] [place] | | | | | | [address] | | | | + + + [...]
--- OUTSIDE RECORDS SUMMARY | ~2020-01-30 | XMS | Encounter Summary ---
Demographics + + + | Address | [address] | | | [place] [address] | + + + | Home Phone [...] Author | [facility] | | | and [place] | + + + | Organization | [facility] [...] | | [facility] | | | | | [address] | | + + + + + Care Team Providers + +------+ + | Care Tank Truck Driver Name | Role | Phone | + +------+ + PCP | Unavailable | + +------+ + Encounter Details +--------+ + + + + | Date | Type | Department | Care Team | Description | +--------+ + + + + | 10/31/ | Hospital | [facility] | Conversion | | | 2014 | Encounter | [facility] | Transaction, | | | | | CLINIC [address] | Provider Unknown | | | | | [place], [place] | | | | | | [address] | (Fax) | | | | | [phone] | | | +--------+ + + + [...] + + | Historically converted procedure from [facility] Epic environment | EXTERNAL LAB | + [...] LAB | | | | Blvd;[place] [address] | | | | + + + + + + | Antibody | NEGATIVE | | EXTERNAL | | | Screen | | | LAB | | + + + + + + | Antibody | Testing performed at | | EXTERNAL | | | Screen | [facility];[address] | | LAB | | | | [address];[place] [address] | | | | + + + [...] EXTERNAL | | | | performed at [facility];[address] | | LAB | | | | [address];[place] | | | | | | [address] | | | | + + + + + + | Red Blood | 4.67Comment: Testing | 4.20 - 5.70 | EXTERNAL | | | Cells | performed at [facility];888 | M/uL | LAB | | | Counted | [address];[place] | | | | | | [address] | | | | + + + + + + | Hemoglobin | 14.1Comment: Testing | 13.2 - 17.0 | EXTERNAL | | | | performed at [facility];888 | g/dL | LAB | | | | [address];[place] | | | | | | [address] | | | | + + + + + + | Hematocrit, | 42.8Comment: Testing | 39.0 - 50.0 % | EXTERNAL | | | POC | performed at [facility];[address] | | LAB | | | | [address];[place] | | | | | | [address] | | | | + + + + + + | MCV | 91.6Comment: Testing | 80.0 - 100.0 fl | EXTERNAL | | | | performed at [facility];[address] | | LAB | | | | [address];[place] | | | | | | [address] | | | | + + + + + + | MCH | 30.1Comment: Testing | 27.0 - 34.0 pg | EXTERNAL | | | | performed at [facility];[address] | | LAB | | | | [address];[place] | | | | | | [address] | | | | + + + + + + | MCHC | 32.9Comment: Testing | 32.0 - 35.5 | EXTERNAL | | | | performed at [facility];888 | g/dL | LAB | | | | [address];[place] | | | | | | [address] | | | | + + + + + + | RDW-CV | 45.5Comment: Testing | 37 - 53 fl | EXTERNAL | | | | performed at [facility];[address] | | LAB | | | | [address];[place] | | | | | | [address] | | | | + + + + + + | Platelet | 345Comment: Testing | 150 - 400 K/uL | EXTERNAL | | | Count | performed at [facility];[address] | | LAB | | | Plasma | [address];[place] | | | | | | [address] | | | | + + + + + + | MPV | 8.4Comment: Testing | fl | EXTERNAL | | | | performed at [facility];[address] | | LAB | | | | [address];[place] | | | | | | [address] | | | | + + + + + + | Differentia | AUTOMATEDComment: | | EXTERNAL | | | l Type | Testing performed at | | LAB | | | | [facility];[address] | | | | | | [address];[place] [address] | | | | + + + + + + | % Segmented | 65.7Comment: Testing | % | EXTERNAL | | | | performed at [facility];[address] | | LAB | | | Neutrophils | [address];[place] | | | | | | [address] | | | | + + + + + + | % | 24.6Comment: Testing | % | EXTERNAL | | | Lymphocytes | performed at [facility];[address] | | LAB | | | | [address];[place] | | | | | | [address] | | | | + + + + + + | % Monocytes | 6.6Comment: Testing | % | EXTERNAL | | | | performed at [facility];[address] | | LAB | | | | [address];[place] | | | | | | [address] | | | | + + + + + + | % | 1.8Comment: Testing | % | EXTERNAL | | | Eosinophils | performed at [facility];[address] | | LAB | | | | [address];[place] | | | | | | [address] | | | | + + + + + + | % Basophils | 1.3Comment: Testing | % | EXTERNAL | | | | performed at [facility];[address] | | LAB | | | | [address];[place] | | | | | | [address] | | | | + + + + + + | Absolute | 7.7 (H)Comment: Testing | 1.9 - 7.4 K/uL | EXTERNAL | | | Segmented | performed at [facility];[address] | | LAB | | | Neutrophils | [address];[place] | | | | | | [address] | | | | + + + + + + | Absolute | 2.9Comment: Testing | 1.0 - 3.9 K/uL | EXTERNAL | | | Lymphocytes | performed at [facility];[address] | | LAB | | | | [address];[place] | | | | | | [address] | | | | + + + + + + | Absolute | 0.8Comment: Testing | 0 - 0.8 K/uL | EXTERNAL | | | Monocytes | performed at [facility];[address] | | LAB | | | | [address];[place] | | | | | | [address] | | | | + + + + + + | Absolute | 0.2Comment: Testing | 0 - 0.5 K/uL | EXTERNAL | | | Eosinophils | performed at [facility];[address] | | LAB | | | | [address];[place] | | | | | | [address] | | | | + + + + + + | Absolute | 0.1Comment: Testing | 0 - 0.1 K/uL | EXTERNAL | | | Basophils | performed at [facility];[address] | | LAB | | | | [address];[place] | | | | | | [address] | | | | + + + [...] EXTERNAL | | | | performed at [facility];[address] | mmol/L | LAB | | | | [address];[place], [place] | | | | | | [address] | | | | + + + + + + | K | 4.0Comment: Testing | 3.5 - 4.9 | EXTERNAL | | | | performed at [facility];[address] | mmol/L | LAB | | | | [address];[place] | | | | | | [address] | | | | + + + + + + | Cl | 108Comment: Testing | 99 - 109 mmol/L | EXTERNAL | | | | performed at [facility];[address] | | LAB | | | | [address];[place] | | | | | | [address] | | | | + + + + + + | CO2 | 26Comment: Testing | 23 - 32 mmol/L | EXTERNAL | | | | performed at [facility];[address] | | LAB | | | | [address];[place] | | | | | | [address] | | | | + + + + + + | Anion Gap | 10Comment: Testing | 5 - 20 mmol/L | EXTERNAL | | | | performed at [facility];[address] | | LAB | | | | [address];[place] | | | | | | [address] | | | | + + + + + + | Glucose, | 95Comment: Testing | 65 - 99 mg/dL | EXTERNAL | | | Fasting | performed at [facility];[address] | | LAB | | | | [address];[place] | | | | | | [address] | | | | + + + + + + | BUN | 17Comment: Testing | 8 - 25 mg/dL | EXTERNAL | | | | performed at [facility];[address] | | LAB | | | | [address];[place] | | | | | | [address] | | | | + + + + + + | Creatinine | 0.92Comment: Testing | 0.70 - 1.30 | EXTERNAL | | | | performed at [facility];[address] | mg/dL | LAB | | | | [address];[place] | | | | | | [address] | | | | + + + + + + | BUN/Creatin | 19Comment: Testing | | EXTERNAL | | | ine Ratio | performed at [facility];[address] | | LAB | | | | [address];[place] | | | | | | [address] | | | | + + + + + + | Calcium | 8.4 (L)Comment: Testing | 8.5 - 10.5 | EXTERNAL | | | | performed at [facility];888 | mg/dL | LAB | | | | [address];[place] | | | | | | [address] | | | | + + + [...] | | | | | | at [facility];[address] | | | | | | [place] [address] | | | | + + + [...] EXTERNAL LAB | | Testing performed at [facility];[address] [place] [address];[place] [address] MRSA PCR | | | NEGATIVE Testing performed at | | | [address];[place] [address] | | + + + + +---------+ + + | Performing | Address | City/State/Zipcode | Phone Number | | Organization | | | | + +---------+ + + | EXTERNAL LAB | | | | + +---------+ + + documented in this encounter Visit Diagnoses Not on filedocumented in this encounter"
--- OUTSIDE RECORDS SUMMARY | ~2020-01-30 | XMS | Encounter Summary ---
Demographics + + + | Address | [address] | | | [place] [address] | + + + | Home Phone [...] Team Providers + +------+ + | Care Assembler Filters Name | Role | Phone | + [...] | 2019 | | Sahra Ybarra | [address] | / [place]) | | | | [address] | [address] | | | | | Loop Physician's | [place], [place] | | | | | [address] | [address] | | | | | [place], [place] | [phone] | | | | | [address] | | | | | | [phone] | | | +--------+ + + + [...]
--- OUTSIDE RECORDS SUMMARY | ~2020-01-30 | XMS | Encounter Summary ---
Demographics + + + | Address | [address] | | | [place] [address] | + + + | Home Phone [...] Team Providers + +------+ + | Care Extrusion Die Repair Manager Name | Role | Phone | [...] | | | | | Vonda Khanna [place], | | | | | | [place] [address] | | | +--------+--------+ + + + [...]
--- OUTSIDE RECORDS SUMMARY | ~2020-01-30 | XMS | Encounter Summary ---
Demographics + + + | Address | [address] | | | [place] [address] | + + + | Home Phone [...] | Author | [facility] | | | and [place] | + + + | Organization | [facility] [...] [place] | | | | | [address] | | + + + + + Care Team Providers + +------+ + | Care Group Sales Coordinator Name | Role | Phone | [...] + + | 09/16/ | Telephone | [facility] | Adrian Aponte MD | Medication Refill | | 2019 | | GASTROENTEROLOGY | [address] [facility] | Assistance | | | | [address] [facility] | [place], [place] | | | | | [address] [place], [place] | [address] | | | | | [address] | [phone] | | | | | [phone] | | | +--------+ + + + [...]
--- OUTSIDE RECORDS SUMMARY | ~2020-01-30 | XMS | Encounter Summary ---
Demographics + + + | Address | [address] | | | [place] [address] | + + + | Home Phone [...] | [facility] | | | and [place] | + + + | Organization | [facility] | | | and [place] | + + + | Address | Unknown | + + + | Phone | Unavailable | + + + Support + + + + + | Name | Relationship | Address | Phone | + + + + + | Teodora Cespedes | ECON | [address] | | | | | [facility] [place] | | | | | [address] | | + + + + + Care Team Providers + +------+ + | Care Yield Improvement Engineer Name | Role | Phone | + +------+ + PCP | Unavailable | + +------+ + Encounter Details +--------+ + + + + | Date | Type | Department | Care Team | Description | +--------+ + + + + | 08/20/ | [facility] | [facility] | Taniya Velásquez | | | 2012 | Encounter | MED CTR EMERGENCY | DO Paul Ovalles | | | | | CENTER [address] | [place] | | | | | [place] | [address] | | | | | [address] | | | | | | [phone] | | | +--------+ + + + [...] + | [facility] | [address] | [place], [place] | [phone] | | [facility] | | [address] | | | - LABORATORY | | | | + + + + + | [facility] | [address] | [place], [place] | | | [facility] | | [address] | | | - LABORATORY | [...] [address] | [place] | [phone] | | [facility] | | [address] | | | - LABORATORY | | | | + + + + + | [facility] | [address] | [place] | | | [facility] | | [address] | | | - LABORATORY | [...] + | [facility] | [address] | [place], [place] | [phone] | | [facility] | | [address] | | | - LABORATORY | | | | + + + + + | [facility] | [address] | [place], [place] | | | [facility] | | [address], [facility] | | | - LABORATORY [...] + | [facility] | [address] | [place] | [phone] | | [facility] | | [address] | | | - LABORATORY | | | | + + + + + | [facility] | [address] | [place] | | | [facility] | | [address] | | | - LABORATORY | [...] | | Total | | | [facility] | | | | [...] 7 | 7 - 18 mg/dL | [facility] | | | | | | . [facility] | | | | | | MEDICAL | | | | | | CENTER - | | | | | | LABORATORY | | + + + + + + | Creatinine | 0.57 (L) | 0.60 - 1.30 | [facility] | | | | | mg/dL | [...] + | [facility] | [address] | [place] | [phone] | | [facility] | | [address] | | | - LABORATORY | | | | + + + + + | [facility] | [address] | [place] | | | [facility] | | [address], [facility] | | | - LABORATORY [...] [address] | [place] | [phone] | | [facility] | | [address] | | | - LABORATORY | | | | + + + + + | LILIANA FORD. | [address] | [place], [place] | | | [facility] | | [address] | | | - LABORATORY | | | | + + + + + documented in this encounter Visit Diagnoses Not on filedocumented in this encounter"
--- OUTSIDE RECORDS SUMMARY | ~2020-01-30 | XMS | Encounter Summary ---
Demographics + + + | Address | [address] | | | [place] [address] | + + + | Home Phone [...] | [facility] | | | and [place] | + + + | Organization | [facility] | | | and [...] [place] | | | | | [address] | | + + + + + Care Team Providers + +------+ + | Care Medical Biller/Coder Name | Role | Phone | + [...] + + | 09/12/ | Telephone | [facility] | Anival Stevenson MD | Appointment Question | | 2020 | | GENERAL SURGERY [address] | [address] | | | | | [address] | [address] [place], [place] | | | | | [place], [place] | [address] | | | | | [address] | | | | | | [phone] | | | +--------+ + + + [...]
--- OUTSIDE RECORDS SUMMARY | ~2020-01-30 | XMS | Encounter Summary ---
Demographics + + + | Address | [address] | | | [place] [address] | + + + | Home Phone [...] | Author | [facility] | | | and [place] | + + + | Organization | [facility] | | | and [place] [...] [place] | | | | | [address] | | + + + + + Care Team Providers + +------+ + | Care Insurance Risk Manager Name | Role | Phone | [...] [place] | | | | | [address] | [address] | | | | | [phone] | [phone] | | | | | | | [...] EXTERNAL | | | | performed at [facility] | | LAB | | | | Health;[address] | | | | | | [place] | | | | | | [address] | | | | + + + [...]
--- OUTSIDE RECORDS SUMMARY | ~2020-01-30 | XMS | Encounter Summary ---
Demographics + + + | Address | [address] | | | [place] [address] | + + + | Home Phone [...] | [facility] | | | and [place] | + + + | Organization | [facility] | [...] [place] | | | | | [address] | | + + + + + Care Team Providers + +------+ + | Care Certified Nurse Name | Role | Phone | [...] + + | 01/21/ | Hospital | [facility] | Brennen Bobo | Acute abdominal pain | | 2018 - | Encounter | MED CTR SURGICAL | MD Ricci [address] | (Primary Dx); | | | | [address] [place] | [address] [place] | Dehydration, | | 01/23/ | | [place] [address] | [place] [address] | moderate; | | 2018 | | [phone] | Ninoska Walker MD | Transaminitis; | | | | | [address] | Intractable vomiting | | | | | [place] | with nausea, | | | | | [address] | unspecified vomiting | | | | [...] might be differ ent from the original. [place] HOSPITALIST DISCHARGE SUMMARY Pt. Name/Age/: Reza [...] Nurse Practitioner Contact information: [address] [facility] [address] [facility] [address] Adrian Aponte MD In 3 weeks. Specialty: Gastroenterology Contact information: [address] [facility] [address] [facility] [address] Laboratory. Contact information: recheck CMP in 1 week Condition: Patient being discharged with condition improved Diet: soft low fat Greater than 30 minutes were spent on discharge and coordination of post-hospital care. Electronically signed by: Stephy Patel MD, 01/23/2018 12:17 [facility] Portions of this chart may have been created with [employer] voice recognition software. Occasi onal wrong-word or sound-alike substitutions may have occurred due to the inherent costello itations of voice recognition software. Please read the chart carefully and recognize, using context, where these substitutions have occurred documented in this encounter Discharge Instructions AttachmentsThe following attachments cannot be sent through Care Everywhere.Shahriar zapata, Discharge Instructions (Niuean)documented in this encounter Medications at Time of [...] All belongings gathered. went down to car. HISTORICAL INTERPRETER and RN took pt and belongings out [...] Prior to Admission Sig: Patient taking differently WASTEWATER PROCESS ENGINEER as: Pantoprazole 20 mg tab 1 tab by mouth every morning before breakfast Not taking. Patient st ates medication is ineffective. Ondansetron 4 mg disintegrating tab Take 1 tab by mouth every 6 hours as needed for nausea Taking up to every 4 hours for severe nausea Best possible WASTEWATER PROCESS ENGINEER medication list after pharmacy review: PT REPORTED [...] Reported on 01/21/2018 Not Taking 90 tablet Adiran Aponte MD silver sulfADIAZINE (SSD) 1% cream Apply topically Daily as needed for Wound Care. Taking Martin Devlin MD tamsulosin (FLOMAX) 0.4 mg CAPS Take 0.8 mg by mouth Daily. Taking Mallorie Daniels Medication review performed and electronically signed by Teresa Portillo, Footwear Production Machine Operator 6:53 Reviewed by Rody Franco, PharmD 01/23/2018 7:36 Isha Rachel MD - 01/22/2018 4:06 PM PDTFormatting of this note might be different from the origi nal. [facility] [place] HOSPITALIST BRIEF NOTE Patient: Reza Cespedes : 1960: Age: 57 y.o. MedRec: [id number] Admission date: 01/21/2018 Hospital day # : [...] arge tomorrow. Stephy Patel MD 01/22/2018 16:06 [facility] Portions of this chart may have been created with [employer] voice recognition software. Occasi onal wrong-word or [...] [address] | [place] | [phone] | | [facility] | | [address] | | | - LABORATORY | | [...] 11 | 7 - 18 mg/dL | [facility] | | | | | | [facility] | | | | | | MEDICAL | | | | | | CENTER - | | | | | | LABORATORY | | + + + + + + | Creatinine | 0.85 | 0.60 - 1.30 | [facility] | | | | | mg/dL | [facility] | | | | | | MEDICAL | | | | | | CENTER - | | | | | | LABORATORY | | + + + + + + | eGFR if not | >60Comment: GLOMERULAR | >=60 | [facility] | | | | FILTRATION | mL/min/1.73m2 | [facility] | | | [place] | RATE,ESTIMATED | | MEDICAL | | | | mL/min/1.14u4Lrfi than | | CENTER - | | [...] [address] | [place] | [phone] | | [facility] | | [address] | | | - LABORATORY | | [...] 01/22/2018 | [facility] | | 2:09 PMMRN: [id number] #: [id number] of : | | | 1960Admit Type: InpatientAge: 57[facility]: [facility]Gender: MaleNote | | | Status: FinalizedAttending MD: Dc Naik , MDProcedure: | | | ERCPIndications: Abnormal abdominal CT, Bile duct stone on | | | Computed Tomogram Scan, Abnormal MRCP, | | | Abnormal abdominal ultrasoundProviders: Dc Naik, | | | , Perla Ponce RN, Aracelis Lewis RN, | | | Jluis Ruiz CMA, Edyta Rees, Rice Drier Operator, | | | Tremaine Stevenson MD (Anesthesia [...] | | | the anesthesiologist and the manufacturing maintenance technician in the endoscopy suite. | | [...] | biliary stent was visible on the chronometer tester film. The esophagus was | | | [...] | | 2:23:41 PMScope Out: 2:40:01 PM [facility] | | | [place], [address] [place] [address] | | | - Advance diet as [...] |Scope Out: 2:40:01 PM | | | [facility], [address] [place] [address] | | | [address] | | + + -+ + +---------+ [...] 2018. PROTOCOL: | | | Coronal T2 chronometer tester, axial T2 chronometer tester, coronal 3D respiratory triggered, | | | [...] | dated January 22, 2018.PROTOCOL: Coronal T2 chronometer tester, axial T2 chronometer tester, coronal 3D respiratory | | triggered,coronal T2 [...] [address] | [place] | [phone] | | [facility] | | [address] | | | - LABORATORY | | [...] Performed at: 01 - Nando Frazier [address] [facility], | REFERENCE LAB | | [place] [id number] Admissions Assistant: Rom Stinson MD, Phone: | [facility] | | [phone] | | + + + + + + + + | Performing | Address | City/State/Zipcode | Phone Number | | Organization | | | | + + + + + | REFERENCE LAB | [address] | [place], [place] | [phone] | | [facility] | [facility] | [address] | | + + + + + [...] [place] [address], | REFERENCE LAB | | [place], [place] [id number] Admissions Assistant: Arturo Barriga MD, Phone: | [facility] | | [phone] | | + + + + + + + + | Performing | Address | City/State/Zipcode | Phone Number | | Organization | | | | + + + + + | REFERENCE LAB | [address] | [place], [place] | [phone] | | [facility] | [address] [place] | [address] | | + + + + + [...] | REFERENCE LAB | | [place] [id number] Admissions Assistant: Rom Stinson MD, Phone: | [facility] | | [phone] | | + + + + + + + + | Performing | Address | City/State/Zipcode | Phone Number | | Organization | | | | + + + + + | REFERENCE LAB | [address] | [place], [place] | [phone] | | [facility] | [facility] | [address] | | + + + + + [...] + | [facility] | [address] | [place] | [phone] | | [facility] | | [address] | | | - LABORATORY | | [...] + | [facility] | [address] | [place] | [phone] | | [facility] | | [address] | | | - LABORATORY | | [...] [address] | [place] | [phone] | | [facility] | | [address] | | | - LABORATORY | | [...] [address] | [place] | [phone] | | [facility] | | [address] | | | - LABORATORY | | [...] + | [facility] | [address] | [place] | [phone] | | [facility] | | [address] | | | - LABORATORY | | [...] [address] | [place] | [phone] | | [facility] | | [address] | | | - LABORATORY | | [...] test | | | | | | ([id number]). | | | | + + + + + + + + | Specimen | + + | Blood | + + + + + | Narrative | Performed At | + + + | Performed at: 01 - [place] [address] [address] [address], | REFERENCE LAB | | [place], [place] [id number] Admissions Assistant: Samuel Wallace MD, Phone: | [facility] | | [phone] | | + + + + + + + + | Performing | Address | City/State/Zipcode | Phone Number | | Organization | | | | + + + + + | REFERENCE LAB | [address] | [place], [place] | [phone] | | [facility] | [address] | [address] | | + + + + + Jose LRAA (01/22/2018 4:27 AM PDT) + + + [...] + | [facility] | [address] | [place] | [phone] | | [facility] | | [address] | | | - LABORATORY | | [...] ST. | [address] | [place], [place] | [phone] | | [facility] | | [address] | | | - LABORATORY | | [...] ST. | [address] | [place] | [phone] | | [facility] | | [address] | | | - LABORATORY | | [...] | 0.90 | 0.60 - 1.30 | [facility] | | | | | mg/dL | [facility] | | | | | | MEDICAL | | | | | | CENTER - | | | | | | LABORATORY | | + + + + + + | eGFR if not | >60Comment: GLOMERULAR | >=60 | [facility] | | | | FILTRATION | mL/min/1.73m2 | [facility] | | | [place] | RATE,ESTIMATED | | MEDICAL | | | | mL/min/1.19b1Gjbc than | | CENTER - | | [...] ST. | [address] | [place], [place] | [phone] | | [facility] | | [address] | | | - LABORATORY | | [...] + + | Performing | Address | City/State/[facility] | Phone Number | | Organization | [...] - 1.030 | [facility] | | | [place], | | | [facility] | | [...] ST. | [address] | [place], [place] | [phone] | | [facility] | | [address] | | | - LABORATORY | | [...] | [employer] Tube | | | [facility] | | | | | [...] [address] | [place] | [phone] | | [facility] | | [address] | | | - LABORATORY | | [...] [address] | [place] | [phone] | | [facility] | | [address] | | | - LABORATORY | | [...] + | [facility] | [address] | [place] | [phone] | | [facility] | | [address] | | | - LABORATORY | | [...] + | [facility] | [address] | [place] | [phone] | | [facility] | | [address] | | | - LABORATORY | | [...] St | [place] | | | [facility] | | [address] | | | - BLOOD BANK | [...] + | [facility] | [address] | [place], [place] | [phone] | | [facility] | | [address] | | | - LABORATORY | | [...] mL/min/1.73m2 | [facility] | | | [place] | RATE,ESTIMATED | | MEDICAL | | | | mL/min/1.38z9Xwpd than | | CENTER - | | [...] + | [facility] | [address] | [place] | [phone] | | [facility] | | [address] | | | - LABORATORY | | [...] [address] | [place] | [phone] | | [facility] | | [address] | | | - LABORATORY | | [...] PDT | | | | | Starting [facility] 01/21/18 at 2223, For | | [...] | | | | | Intravenous, ONCE, [facility] 01/21/18 at | | PM PDT [...] PDT | | | | | ONCE, [facility] 01/21/18 at 2225, For 1 | [...] PDT | | | | | ONCE, [facility] 01/22/18 at 0015, For 1 | | [...] AM PDT | | | | | [facility] 01/21/18 at 2200 | | | [...]
--- OUTSIDE RECORDS SUMMARY | ~2020-01-30 | XMS | Encounter Summary ---
Demographics + + + | Address | [address] | | | [place] [address] | + + + | Home Phone [...] | Author | [facility] | | | and [place] | + + + | Organization | [facility] | | | and [...] [place] | | | | | [address] | | + + + + + Care Team Providers + +------+ + | Care Cilnical Scientist Name | Role | Phone | [...] | | artery | [address] | [place], [place] | | | | | disease) | [place], [place] | [address] | | | | | ([facility]) | [address] | Phone: | | | | | Procedures | Phone: | [phone] | | | | | IR Stent | [phone] | Fax: | | | | | Iliac | Fax: | [phone] | | | | | | [phone] | | +--------+--------+ + + + + [...] | | | | | | | ([facility]) | | | | | | | Procedures | | | | | | | IR STENT | | | | | | | ILIAC | | | +--------+--------+ + + + + Encounter Details +--------+ + + + + | Date | Type | Department | Care Team | Description | +--------+ + + + + | 06/01/ | Hospital | [facility] | Rich [place] MD | PAD (peripheral | | 2019 - | Encounter | [facility] | [address] | artery disease) | | | | CARE FLOOR [address] | [place], [place] | ([facility]) | | 06/02/ | | [address] | [address] | | | 2019 | | [place], [place] | [phone] | | | | | [address] | | | | | | [phone] | | | +--------+ + + + [...] (sutures), avoid swimming or taking a bath [id number] after the p rocedure or until the [...] or shortness of breath Date Last Reviewed: 02/06/201619995408-7003 [employer]. [address] [place] [address]. All righ ts reserved. This information is [...] tomorrow AM. Significant other left VM with [employer] regarding ride in the morning. Dr. [place] notified. Telephone order for home med s gabapentin, lorazepam, robaxin, and magnesium. Shannan Chávez RN - 06/01/2019 3:43 PM PDTPer patient family pat ient arrived this morning by medical transport. Patient will not be able to discharge until later this evening, when transport is not available. Received call from [facility] that brought patient. She said they have the option of cynthia a local ambulance company. Received fax of form [phone] to be sent t o [employer] After roberson is sent back we can forward to [employer] and they will approve or deny ride [...] the | | | | PDT | ([facility]) | results section. | + +--------+ + [...] | | | Rich [place] MD AUTOMOBILE SERVICE STATION MANAGER: None ANESTHESIA: Moderate sedation and local | [...] and | | | brought to the Manager Sterile Processing. The patient was placed supine on the [...] wire and up sized to a 6 Malay sheath. A | | | Omni flush [...] identified and brought | | |to the Manager Sterile Processing. The patient was placed supine on the [...] | | |up sized to a 6 Malay sheath. A Omni flush catheter was then [...] (H)Comment: Testing | 0.00 - 0.10 | [facility] | | | Absolute | performed at [facility];[address] | [address] | LABORATORY | | | | [address];[place] | | | | | | [address] | | | | + + + + + + + + | Specimen | + + | Blood | + + + + + + + | Performing | Address | City/State/Zipcode | Phone Number | | Organization | | | | + + + + + | [facility] | [address] | [place] [address] | [phone] | + + + + + Basic [...] | | | | | performed at [facility];[address] | | | | | | [address];[place] | | | | | | [address] | | | | + + + + + + + + | Specimen | + + | Blood | + + + + + + + | Performing | Address | City/State/Zipcode | Phone Number | | Organization | | | | + + + + + | [facility] | [address] | [place] [address] | [phone] | + + + + + documented [...]
--- OUTSIDE RECORDS SUMMARY | ~2020-01-30 | XMS | Encounter Summary ---
Demographics + + + | Address | [address] | | | [place] [address] | + + + | Home Phone [...] Author | [facility] | + + + | Organization | [facility] | + + + | Address | Unknown | + + + | Phone | Unavailable | + + + Support + + +---------+ + | Name | Relationship | Address | Phone | + + +---------+ + | Maria Isabel Cespedes | ECON | Unknown | | + + +---------+ + Care Team Providers + +------+ + | Care Manager Life Insurance Name | Role | Phone | + [...] | | | | | | | [place], [place] | | | | | | | [address] | | | | | | | Phone: | | | | | | | [phone] | | | | | | | Fax: | | | | | | | [phone] | +--------+--------+ + + + + Encounter Details +--------+---------+ + + + | Date | Type | Department | Care Team | Description | +--------+---------+ + + + | 04/21/ | Office | [facility] | Jaspal Stevenson, | Allergic rhinitis, | | 2012 | Visit | Center at [facility] [address] | [address] | cause unspecified | | | | [address] | [place], [place] | (Primary Dx); | | | | Mailcode: CH5E | [address] | Deviated nasal | | | | [facility] | [phone] | septum; Hypertrophy | | | | and Healing, | | of nasal turbinates | | | | Building [address] | | | | | | Floor [place], [place] | | | | | | [address] | | | | | | [phone] | | | +--------+---------+ + + + [...] functioning as a scribe for Dr. Stevenson. [facility] HPI: Reza Cespedes is a 52 y.o. male who presents to the [facility] in [facility] for Septal deviation and Turbinate hypertrophy. Current [...] | + +--------+ + + + | IN NASAL | Routin | 04/22/2013 | Allergic [...]
--- OUTSIDE RECORDS SUMMARY | ~2020-01-30 | XMS | Encounter Summary ---
Demographics + + + | Address | [address] | | | [place] [address] | + + + | Home Phone [...] Author | [facility] | | | and [place] | + + + | Organization | [facility] | [...] [place] | | | | | [address] | | + + + + + Care Team Providers + +------+ + | Care Direct Care Counselor Name | Role | Phone | [...] + + | 09/02/ | Telephone | [facility] | Anival Stevenson MD | Other | | 2019 | | GENERAL SURGERY [address] | [address] | | | | | [address] | [address] [place], [place] | | | | | [place], [place] | [address] | | | | | [address] | | | | | | [phone] | | | +--------+ + + + [...]
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
--- OUTSIDE RECORDS SUMMARY | ~2020-01-30 | XMS | Encounter Summary ---
Demographics + + + | Address | [address] | | | [place] [address] | + + + | Home Phone [...] | [facility] | | | and [place] | + + + | Organization | [facility] | [...] [place] | | | | | [address] | | + + + + + Care Team Providers + +------+ + | Care Heating Equipment Repairer Name | Role | Phone | + [...] | Dysphagia, | [place], [place] | [place] [address] | | | | | unspecified | [address] | Phone: | | | | | dysphagia | Phone: | [phone] | | | | | Opioid | [phone] | Fax: | | | | | dependence, | Fax: | [phone] | | | | | uncomplicate | [phone] | | | | | | d (HCC) | | | | | | | Procedures | | | | | | | ND | | | | | | | ESOPHAGOGAST | | | | | | | RODUODENOSCO | | | | | | | PY TRANSORAL | | | | | | | DIAGNOSTIC | | | | | | | ND EDG | | | | | | | TRANSORAL | | | | | | | BIOPSY | | | | | | | SINGLE/MULTI | | | | | | | PLE ND | | | | | | | [...] | | | | | distension | SUPERVISOR CALIBRATION [address] | [address] | | | | | (gaseous) | [address] | | | | | Procedures | [address] | [address] | | | | | Office visit | [place], | [place] | | | | | | [place] [address] | [address] | | | | | | Phone: | Phone: | | | | | | [phone] | [phone] | | | | | | Fax: | Fax: | | | | | | [phone] | [phone] | +--------+--------+ + + + + Encounter Details +--------+---------+ + + + | Date | Type | Department | Care Team | Description | +--------+---------+ + + + | 09/28/ | Office | [facility] | Adrian Aponte MD | Abdominal pain, | | 2016 | Visit | GASTROENTEROLOGY | [address] | generalized (Primary | | | | [address] [facility] | [place], [place] | Dx); Dysphagia, | | | | [address] [place] | [address] | unspecified | | | | [address] | [phone] | dysphagia | | | | [phone] | | | +--------+---------+ + + + [...] Abdominal pain, | Expected: 10/23/2015 | | Ozkzrktq-Dvaml-TTKV | Referral | e | generalized | [...]
--- OUTSIDE RECORDS SUMMARY | ~2020-01-30 | XMS | Encounter Summary ---
Demographics + + + | Address | [address] | | | [place] [address] | + + + | Home Phone [...] | Author | [facility] | | | and [place] | + + + | Organization | [facility] | | | and [place] [...] [place] | | | | | [address] | | + + + + + Care Team Providers + +------+ + | Care Dietetic Assistant Name | Role | Phone | [...] + + | 12/16/ | Telephone | [facility] | Adrian Aponte MD | Results, Pathology; | | 2015 | | GASTROENTEROLOGY | [address] [facility] | Results, Imaging | | | | [address] [facility] | [place], [place] | | | | | [address] [place], [place] | [address] | | | | | [address] | [phone] | | | | | [phone] | | | +--------+ + + + [...]
--- OUTSIDE RECORDS SUMMARY | ~2020-01-30 | XMS | Encounter Summary ---
Demographics + + + | Address | [address] | | | [place] [address] | + + + | Home Phone [...] + | Author | [facility] | | | and [place] | + + + | Organization | [facility] | | [...] [place] | | | | | [address] | | + + + + + Care Team Providers + +------+ + | Care Stonehand Name | Role | Phone | + [...] [place] | | | | | [address] | [address] | | | | | [phone] | [phone] | | | | | | | [...] EXTERNAL LAB | | Testing performed at [facility] | | | Health;[address];[place] [address] GRAM STAIN | | | GRAM POSITIVE COCCI IN CLUSTERS SEEN IN ANAEROBIC | | | BOTTLE SMEAR | | | RESULTS CALLED TO AND READ BACK BY: GAYLE Henderson RN TRIOS 2E 09/03 [facility] | | | Testing performed | | | at [facility], [address] [place] [address] CULTURE | | | STAPHYLOCOCCUS SPECIES, COAGULASE | | | NEGATIVE GROWTH | | | IN ONE OF TWO BOTTLES | | | TIME TO DETECTION: 47 HOURS 5 MINITES | | | POSSIBLE CONTAMINANT, CLINICAL CORRELATION | | | REQUIRED. Testing | | | performed at [facility], [address] [place] [address] | | | REPORT STATUS 09/12/2013 FINAL [...]
--- OUTSIDE RECORDS SUMMARY | ~2020-01-30 | XMS | Encounter Summary ---
Demographics + + + | Address | [address] | | | [place] [address] | + + + | Home Phone [...] | Author | [facility] | | | and [place] | + + + | Organization | [facility] | | [...] [place] | | | | | [address] | | + + + + + Care Team Providers + +------+ + | Care Slide Fasteners Inspector Name | Role | Phone | [...] | | | | nausea | [address] | | | | | Epigastric | [address]VD | [address] | | | | | pain | [place], [place] | AVE | | | | | Abdominal | [address] | [place], [place] | | | | | pain, | Phone: | [address] | | | | | unspecified | [phone] | Phone: | | | | | abdominal | Fax: | [phone] | | | | | location | [phone] | Fax: | | | | | Procedures | | [phone] | | | | | CT Abdomen [...] | | | Chronic | Blvd | [place] [address] | | | | | hepatitis, | [place], | Phone: | | | | | unspecified | [place] [address] | [phone] | | | | | (HCC) | Phone: | Fax: | | | | | Nausea | [phone] | [phone] | | | | | Procedures | Fax: | | | | | | Office Visit | [phone] | | +--------+--------+ + + + + Encounter Details +--------+---------+ + + + | Date | Type | Department | Care Team | Description | +--------+---------+ + + + | 10/20/ | Office | [facility] | Adrian Aponte MD | Severe nausea | | 2018 | Visit | GASTROENTEROLOGY | [address] | (Primary Dx); | | | | [address] | [place], [place] | Epigastric pain; | | | | [address] [place], [place] | [address] | Dysphagia, | | | | [address] | [phone] | unspecified type; | | | | [phone] | | Narcotic dependence | | | [...] ap proved, he would like done at [facility]; advised to hold PPI morning of procedure, 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 documented in this e ncounter Plan [...]
--- OUTSIDE RECORDS SUMMARY | ~2020-01-30 | XMS | Encounter Summary ---
Demographics + + + | Address | [address] | | | [place] [address] | + + + | Home Phone [...] Team Providers + +------+ + | Care Systems Administration Analyst Name | Role | Phone | [...] | | | [address] | [facility] | | | | | Loop Physician's | [place], [place] | | | | | [place], [facility] Floor | [address] | | | | | [place], [place] | [phone] | | | | | [address] | | | | | | [phone] | | | +--------+ + + + [...]
--- OUTSIDE RECORDS SUMMARY | ~2020-01-30 | XMS | Encounter Summary ---
Demographics + + + | Address | [address] | | | [place] [address] | + + + | Home Phone [...] | Author | [facility] | | | and [place] | + + + | Organization | [facility] | [...] [place] | | | | | [address] | | + + + + + Care Team Providers + +------+ + | Care Busgirl Name | Role | Phone | + [...] [place] | | | | | | [address] | | | | | | [phone] | | | +--------+ + + + [...]
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
[~2020-01-30 23:44] MED LIST changes: +BACTRIM DS TAB1 EACH PO; +KEFLEX500 MG PO
--- OUTSIDE RECORDS SUMMARY | 2020-01-30 23:48 | XMS ---
PreManage Notification: APARNA HAN Security Reserve Operator Events No recent Security Events currently on file CRITERIA MET - [facility] - Has Care Guidelines - [facility] CARE PROVIDERS Haven Cevallos Hoop Riveting Machine Operator Helper/Infrastructure Developer 09/07/2019-Current PHONE: [phone] DA Pineda Nurse Practitioner: Family 10/21/2018-Current PHONE: [phone] Toan has no Care Guidelines for this patient. Care History Medical/Surgical 11/08/2018 [facility] - PATIENT HAS A RADIO MAINTAINER AT [facility]- DR LEE. Reese VISIT COUNT (12 MO.) 2 [facility] 3 [facility] TOTAL 5 NOTE: Visits indicate total known visits. ED/UCC VISIT TRACKING (12 MO.) 01/30/2020 23:46 [place] [place] TYPE: Emergency COMPLAINT: - SEVERE LOWER BACK PAIN/INJ [facility]/2019 [facility] TYPE: Emergency DIAGNOSES: - Peritoneal abscess - Abnormal Lab - Wound Infection (Complicated) - Emesis [facility] TYPE: Emergency DIAGNOSES: - Wound Check - Cutaneous abscess of abdominal wall 07/03/2019 09:05 [facility] Sapp TYPE: Emergency COMPLAINT: - POSS ABSCESS DIAGNOSES: - Allergy status to penicillin - Allergy status to analgesic agent status - Cutaneous abscess of abdominal wall - Personal history of nicotine dependence - Allergy status to narcotic agent status - Other nonmedicinal substance allergy status 05/27/2019 10:40 [facility] Sapp TYPE: Emergency COMPLAINT: - BLOOD PRESSURE PROBLEM, BACK/ABD PAIN DIAGNOSES: - Dorsalgia, unspecified - Chest pain, unspecified - Allergy status to penicillin - Essential (primary) hypertension - Personal history of nicotine dependence - Allergy status to analgesic agent status - Upper abdominal pain, unspecified - Other nonmedicinal substance allergy status INPATIENT VISIT TRACKING (12 MO.) [facility] DIAGNOSES: - Infection and inflammatory reaction due to other internal pro - Other specified anxiety disorders - Fistula of intestine - Infection and inflammatory reaction due to other internal pro - Infection and inflammatory reaction due to other internal pro - Cutaneous abscess of abdominal wall 07[facility]29/2019 [facility] DIAGNOSES: - Peritoneal abscess - Other specified postprocedural states - Gastro-esophageal reflux disease without esophagitis - Generalized abdominal pain - Essential (primary) hypertension - Allergy status to other antibiotic agents status - Cutaneous abscess of abdominal wall - Personal history of other diseases of the digestive system [email or web address]
[2020-01-31] MEDS ORDERED: PRILOSEC OTC20 MG PO (00:02)
[2020-01-31] MEDS ORDERED: VENTOLIN HFA18 GM INH (00:02)
== END 2020-01-31 01:24 | disposition home or self-care (01) ==
LOC: ED 23:44
DX: M54.5 Low back pain (principal); G89.29 Other chronic pain; F41.9 Anxiety disorder, unspecified; F32.9 Major depressive disorder, single episode, unspecified; F17.200 Nicotine dependence, unspecified, uncomplicated; Z88.0 Allergy status to penicillin; Z91.048 Other nonmedicinal substance allergy status; Z88.8 Allergy status to other drugs, medicaments and biological substances; Z79.899 Other long term (current) drug therapy
CPT/HCPCS: 96372; 99283; J1170

== ENCOUNTER 2020-01-31 09:12 | Emergency (ER) | payer OTHER ==
[~2020-01-31] VITALS: Ht 180.3 cm; Wt 95.2 kg
--- OUTSIDE RECORDS SUMMARY | ~2020-01-31 | XMS | Encounter Summary ---
Demographics + + + | Address | [address] | | | [place] [address] | + + + | Home Phone | | + + + | Preferred Language | Unknown | + + + | Marital Status | | + + + | Mandaen Affiliation | 1013 | + + + | Race | Unknown | + + + | Ethnic Group | Unknown | + + + Author + + + | Author | [facility] | | | and [place] | + + + | Organization | [facility] | | | and [place] | + + + | Address | Unknown | + + + | Phone | Unavailable | + + + Support + + + + + | Name | Relationship | Address | Phone | + + + + + | Teodora eCspedes | ECON | [address] | | | | | [place] | | | | | [address] | | + + + + + Care Team Providers + +------+ + | Care Master Brewer Name | Role | Phone | + +------+ + | Allison Fairchild NP | PCP | | + +------+ + Encounter Details +--------+ + + + + | Date | Type | Department | Care Team | Description | +--------+ + + + + | 10/03/ | Orders Only | [facility] | Rd Busby MD | | | 2014 | | [address] | [address] | | | | | [place] | [place] | | | | | [address] | [address] | | | | | [phone] | [phone] | | | | | | | | +--------+ + + + + Social History + +-------+ +--------+------+ | Tobacco Use | Types | Packs/Day | Years | Date | | | | | Used | | + +-------+ +--------+------+ | Never Assessed | | | | | + +-------+ +--------+------+ + + + | Sex Assigned at [...] Not on filedocumented as of this encounter Procedures + +--------+ + + + | Procedure Name | Priori | Date/Time | Associated Diagnosis | Comments | | | ty | | | | + +--------+ + + + | AMYLASE | Routin | 10/03/2013 | | Results for this | | | e | 4:05 PM | | procedure are in the | | | | PST | | results section. | + +--------+ + + + documented in this encounter Results Amylase (10/03/2013 4:05 PM PST) + + + + + + | Component | Value | Ref Range | Performed | Pathologist | | | | | At | Signature | + + + + + + | Amylase | 103Comment: Testing | 25 - 115 U/L | EXTERNAL | | | | performed at [facility] | | LAB | | | | Health;[address] | | | | | | [place] | | | | | | [address] | | | | + + + + + + + + | Specimen | + + | | + + + +---------+ + + | Performing | Address | City/State/Zipcode | Phone Number | | Organization | | | | + +---------+ + + | EXTERNAL LAB | | | | + +---------+ + + documented in this encounter Visit Diagnoses Not on filedocumented in this encounter"
--- OUTSIDE RECORDS SUMMARY | ~2020-01-31 | XMS | Encounter Summary ---
Demographics + + + | Address | [address] | | | [place] [address] | + + + | Home Phone | | + + + | Preferred Language | Unknown | + + + | Marital Status | | + + + | Episcopalian Affiliation | 1013 | + + + | Race | Unknown | + + + | Ethnic Group | Unknown | + + + Author + + + | Author | [facility] | | | and [place] | + + + | Organization | [facility] | | | and [place] [...] [place] | | | | | [address] | | + + + + + Care Team Providers + +------+ + | Care Lacing Cutter Name | Role | Phone | + +------+ + | Allison Fairchild NP | PCP | | + +------+ + Reason for Visit Auth/Cert +--------+--------+ + + + + | Status | Reason | Specialty | Diagnoses / | Referred By | Referred To | | | | | Procedures | Contact | Contact | +--------+--------+ + + + + | | | | Diagnoses | | | | | | | Nausea | | | | | | | Epigastric | | | | | | | pain | | | | | | | Dysphagia, | | | | | | | unspecified | | | | | | | Opioid | | | | | | | dependence, | | | | | | | uncomplicate | | | | | | | d (HCC) | | | | | | | Sedative, | | | | | | | hypnotic or | | | | | | | anxiolytic | | | | | | | dependence, | | | | | | | uncomplicate | | | | | | | d (HCC) | | | | | | | Severe | | | | | | | nausea | | | | | | | (R11.0), | | | | | | | Epigastric | | | | | | | pain | | | | | | | (R10.13), | | | | | | | Dysphagia, | | | | | | | unspecified | | | | | | | type | | | | | | | (R13.10), | | | | | | | Narcotic | | | | | | | dependence | | | | | | | (HCC) | | | | | | | (F11.20), | | | | | | | Benzodiazepi | | | | | | | ne | | | | | | | dependence | | | | | | | (HCC) | | | | | | | (F13.20), | | | | | | | Abdominal | | | | | | | pain, | | | | | | | unspecified | | | | | | | abdominal | | | | | | | location | | | | | | | (R10.9) | | | | | | | | | | | | | | Procedures | | | | | | | MD | | | | | | | ESOPHAGOGAST | | | | | | | RODUODENOSCO | | | | | | | PY TRANSORAL | | | | | | | DIAGNOSTIC | | | | | | | MD EGD | | | | | | | TRANSORAL | | | | | | | BIOPSY | | | | | | | SINGLE/MULTI | | | | | | | PLE MD | | | | | | | ANESTHESIA | | | | | | | UPPER GI | | | | | | | ENDOSCOPIC | | | | | | | PX NOS EGD | | | +--------+--------+ + + + + Encounter Details +--------+---------+ + + + | Date | Type | Department | Care Team | Description | +--------+---------+ + + + | 11/18/ | Surgery | [facility] | Adrian Aponte MD | EGD | | 2018 | | [facility] | [address] | | | | | [address] | [place], [place] | | | | | [place], [place] | [address] | | | | | [address] | [phone] | | | | | [phone] | | | +--------+---------+ + + + Social History + + + +--------+------+ | Tobacco Use | Types | Packs/Day | Years | Date | | | | | Used | | + + + +--------+------+ | Current Every Day | Cigarettes | 1 | 25 | | | Smoker | | | | | + + + +--------+------+ + +---+---+---+ | Smokeless Tobacco: | [...] + + documented as of this encounter Last Filed Vital Signs + + + + + | Vital Sign | Reading | Time Taken | Comments | + + + + + | Blood Pressure | 116/68 | 11/18/2017 9:15 AM | | | | | PDT | | + + + + + | Pulse | 57 | 11/18/2017 9:15 AM | | | | | PDT | | + + + + + | Temperature | 36.1 C (97 F) | 11/18/2017 8:53 AM | | | | | PDT | | + + + + + | Respiratory Rate | 14 | 11/18/2017 8:53 AM | | | | | PDT | | + + + + + | Oxygen Saturation | 96% | 11/18/2017 9:15 AM | | | | | PDT | | + + + + + | Inhaled Oxygen | - | - | | | Concentration | | | | + + + + + | Weight | 93 kg (205 lb) | 11/18/2017 7:38 AM | | | | | PDT | | + + + + + | Height | 180.3 cm (5' 11") | 11/18/2017 7:38 AM | | | | | PDT | | + + + + + | Body Mass Index | 28.59 | 11/18/2017 7:38 AM | | | | | PDT | | + + + + + documented in this encounter Medications at Time of Discharge + + + +---------+ + + | Medication | Sig | Dispensed | Refills | Start | End Date | | | | | | Date | | + + + +---------+ + + | magnesium oxide | Take 800 mg by | | 0 | | | | (MAG-OX) 400 mg | mouth. Two to three | | | | | | tablet | times daily as | | | | | | | needed for leg | | | | | | | cramps | | | | | + + + +---------+ + + | methocarbamol | Take 1,000 mg by | | 0 | | | | (ROBAXIN) 500 mg | mouth 4 times daily | | | | | | tablet | as needed for Muscle | | | | | | | spasms. | | | | | + + + +---------+ + + | Multiple | Take 1 tablet by | | 0 | | | | Vitamins-Minerals | mouth Daily. | | | | | | (CENTRUM SILVER PO) | | | | | | + + + +---------+ + + | Nutritional | Take 8 oz by mouth | | 0 | | | | Supplements (BOOST) | Daily as needed (for | | | | | | LIQD | lack of appetite). | | | | | + + + +---------+ + + | tamsulosin | Take 0.8 mg by mouth | | 0 | | | | (FLOMAX) 0.4 mg CAPS | Daily. | | | | | + + + +---------+ + + | docusate sodium | Take 100 mg by mouth | | 0 | | | | (COLACE) 100 mg | nightly. | | | | 9 | | capsule | | | | | | + + + +---------+ + + | gabapentin | Take 300 mg by mouth | | 0 | | | | (NEURONTIN) 300 mg | 3 times daily. May | | | | 9 | | capsule | increase to 600 mg | | | | | | | by mouth twice daily | | | | | + + + +---------+ + + | LORazepam (ATIVAN) | Take 2 mg by mouth | | 0 | | | | 2 MG tablet | Twice daily as | | | | 9 | | | needed for Anxiety. | | | | | | | May take additional | | | | | | | dose or 1 tablet | | | | | | | every 8 hours as | | | | | | | needed on bad | | | | | | | anxiety days | | | | | + + + +---------+ + + | ondansetron | Take 4 mg by mouth | | 0 | | | | (ZOFRAN ODT) 4 mg | every 6 hours as | | | | 9 | | disintegrating | needed for Nausea. | | | | | | tablet | | | | | | + + + +---------+ + + | oxyCODONE | Take 15-30 mg by | | 0 | | | | (ROXICODONE) 15 mg | mouth every 3 hours. | | | | 9 | | immediate release | Maximum daily dose: | | | | | | tablet | 16 tablets | | | | | + + + +---------+ + + | pantoprazole | Take 1 tablet by | 90 | 3 | 10/20/19 | | | (PROTONIX) 20 mg | mouth every morning | tablet | | 18 | 9 | | tabletIndications: | (before breakfast). | | | | | | Epigastric pain | | | | | | + + + +---------+ + + documented as of this encounter Plan of Treatment Not on filedocumented as of this encounter Procedures + +--------+ + + + | Procedure Name | Priori | Date/Time | Associated Diagnosis | Comments | | | ty | | | | + +--------+ + + + | EGD | | 11/18/2017 | Severe nausea | | | | | 8:30 AM | (R11.0), Epigastric | | | | | PDT | pain (R10.13), | | | | | | Dysphagia, | | | | | | unspecified type | | | | | | (R13.10), Narcotic | | | | | | dependence (HCC) | | | | | | (F11.20), | | | | | | Benzodiazepine | | | | | | dependence (HCC) | | | | | | (F13.20), Abdominal | | | | | | pain, unspecified | | | | | | abdominal location | | | | | | (R10.9) | | + +--------+ + + + +---+--------+ | | | | | Specia | | | l | | | Needs | | | Uses | | | cane | | | for | | | ambula | | | tion | +---+--------+ + +--------+ +---+ + | EGD | Routin | 11/18/2017 | | Results for this | | | e | 8:29 AM | | procedure are in the | | | | PDT | | results section. | + +--------+ +---+ + | SURGICAL PATHOLOGY | Routin | 11/18/2017 | | Results for this | | EXAM | e | 12:00 AM | | procedure are in the | | | | PDT | | results section. | + +--------+ +---+ + documented in this encounter Results EGD (11/18/2017 8:29 AM PDT) + + | Specimen | + + | | + + + + -+ | Narrative | Performed At | + + -+ | | [facility] | | GastroenterologyPatient Name: Reza Xiong Date: 11/18/2017 | [facility] | | 8:29 AMMRN: [id number] #: [id number] of : | | | 1960Admit Type: AmbulatoryAge: 56[facility]Gender: MaleNote | | | Status: FinalizedAttending MD: Adrian Aponte MDProcedure: | | | Upper GI endoscopyIndications: Epigastric abdominal | | | pain, Nausea with vomitingProviders: Adrian Aponte MD, | | | Caroline Beltran RN, Edyta Kilpatrick | | | Cabrera, Soloist Dancer, CARMELLA MELO, | | | DO (Anesthesia Staff)Referring MD: Allison Fairchild NP | | | (Referring MD)Medicines: Monitored Anesthesia | | | CareComplications: No immediate complications.Procedure: | | | Pre-Anesthesia Assessment: - Prior to the procedure, a History | | | and Physical was performed, and patient medications and | | | allergies were reviewed. The patient is competent. The risks | | | and benefits of the procedure and the sedation options and | | | risks were discussed with the patient. All questions were | | | answered and informed consent was obtained. Patient identification and | | | proposed procedure were verified by the physician, the nurse, | | | the anesthesiologist and the eeg technician in the pre-procedure | | | area in the procedure room. Mental Status Examination: alert | | | and oriented. Airway Examination: normal oropharyngeal airway | | | and neck mobility. Respiratory Examination: clear to | | | auscultation. CV Examination: normal. Prophylactic Antibiotics: | | | The patient does not require prophylactic antibiotics. Prior | | | Anticoagulants: The patient has taken no previous anticoagulant or | | | antiplatelet agents. ASA Grade Assessment: III - A patient with | | | severe systemic disease. After reviewing the risks and | | | benefits, the patient was deemed in satisfactory condition to | | | undergo the procedure. The anesthesia plan was to use monitored | | | anesthesia care (MAC). Immediately prior to administration of | | | medications, the patient was re-assessed for adequacy to | | | receive sedatives. The heart rate, respiratory rate, oxygen | | | saturations, blood pressure, adequacy of pulmonary ventilation, and | | | response to care were monitored throughout the procedure. The | | | physical status of the patient was re-assessed after the | | | procedure. After obtaining informed consent, the endoscope was | | | passed under direct vision. Throughout the procedure, the | | | patient's blood pressure, pulse, and oxygen saturations were | | | monitored continuously. The Endoscope was introduced through | | | the mouth, and advanced to the third part of duodenum. The | | | upper GI endoscopy was accomplished without difficulty. The | | | patient tolerated the procedure well.Findings: The examined | | | esophagus was normal. Biopsies were taken with a cold forceps | | | for histology. Verification of patient identification for the | | | specimen was done by the physician and nurse using the patient's name | | | and date. Estimated blood loss was minimal. Diffuse | | | mildly erythematous mucosa without bleeding was found in the | | | entire examined stomach. Biopsies were taken with a cold forceps for | | | histology. Verification of patient identification for the | | | specimen was done by the physician and nurse using the | | | patient's name and date. Estimated blood loss was | | | minimal. The cardia and gastric fundus were normal on | | | retroflexion. A foreign body was found in the second portion of | | | the duodenum. Stent noted in D2 at ampulla. Bile noted in the | | | duodenum. No evidence of biliary obstruction.Impression: | | | - Normal esophagus. Biopsied. - Erythematous mucosa in the | | | stomach. Biopsied. - Normal examined duodenum. Biopsied. - | | | Stent noted at the ampulla. No evidence of biliary | | | obstruction.Recommendation: - Patient has a contact number | | | available for emergencies. The signs and symptoms of potential | | | delayed complications were discussed with the patient. Return | | | to normal activities tomorrow. Written discharge instructions | | | were provided to the patient. - Resume previous diet. - | | | Continue present medications. - Await pathology results. - | | | Repeat upper endoscopy for surveillance based on pathology results. | | | - Return to GI clinic PRN. - No aspirin, ibuprofen, | | | naproxen, or other non-steroidal anti-inflammatory drugs. | | | - Follow an antireflux regimen. - The findings and | | | recommendations were discussed with the patient.Adrian Aponte, | | | 11/18/2017 8:55:19 AMThis report has been signed | | | electronically.Number of Addenda: 0Note Initiated On: 11/18/2017 8:29 | | | AMTotal Procedure Duration: 0 hours 9 minutes 0 seconds Scope In: | | | 8:39:59 AMScope Out: 8:48:59 AM [facility] | | | [place], [address] [place] [id number] | | | - Await pathology results. | | | - Repeat upper endoscopy for surveillance based on pathology results. | | | - Return to GI clinic PRN. | | | - No aspirin, ibuprofen, naproxen, or other non-steroidal | | | anti-inflammatory drugs. | | | - Follow an antireflux regimen. | | | - The findings and recommendations were discussed with the patient. | | |Adrian Aponte MD | | |11/18/2017 8:55:19 AM | | |This report has been signed electronically. | | |Number of Addenda: 0 | | |Note Initiated On: 11/18/2017 8:29 AM | | |Total Procedure Duration: 0 hours 9 minutes 0 seconds | | |Scope In: 8:39:59 AM | | |Scope Out: 8:48:59 AM | | | [facility], [address] [place] [address] | | | [id number] | | + + -+ + +---------+ + + | Performing | Address | City/State/Zipcode | Phone Number | | Organization | | | | + +---------+ + + | [facility] | | | | + +---------+ + + Surgical Pathology Exam (11/18/2017 12:00 AM PDT) + + | Specimen | + + | | + + + + + | Narrative | Performed At | + + + | SPECIMEN(S): A GASTRIC BIOPSY SPECIMEN(S): B DUODENAL BIOPSY | [facility] | | SPECIMEN(S): C GE JUNCTION SPECIMEN(S): D MID ESOPHAGEAL BIOPSY | [facility] | | SPECIMEN SOURCE: A. GASTRIC BIOPSY B. DUODENAL BIOPSY C. GE | | | JUNCTION D. 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 These findings, | | | together with the gross examination, support the pathologic | | | diagnosis. FINAL PATHOLOGIC DIAGNOSIS: A. Gastric biopsy: - | | | Gastric-type mucosa with focal slight chronic inflammation and focal | | | specialized intestinal metaplasia. - Negative for evidence of | | | Helicobacter organisms on HE-stained sections. - Negative for | | | significant atypical features. B. Duodenal biopsy: - Benign | | | duodenal mucosa, negative for specific diagnostic abnormality. C. | | | GE junction, biopsy: - Gastroesophageal junction with reactive | | | epithelial features and mild chronic inflammation. - Negative for | | | specialized intestinal metaplasia or dysplasia. D. Mid esophageal | | | biopsy: - Benign esophageal mucosa, negative for increased | | | epithelial eosinophils. JVR:[facility]:C2NR GROSS DESCRIPTION: | | | Received in four parts. A. Received in formalin labeled "Reza | | | Kalal" and "gastric bx" on the requisition are four pink-brock tissue | | | fragments measuring from 0.25-0.6 cm, submitted, all in (A1). B. | | | Received in formalin labeled "Reza Kalal" and "duodenal bx" on the | | | requisition are four pink-brock tissue fragments measuring from 0.15-0.4 | | | cm, submitted, all in (B1). C. Received in formalin labeled | | | "Reza Kalal" and "GE junction bx" on the requisition are three | | | santillan-pink and brock colored tissue fragments measuring from 0.3-0.4 cm, | | | submitted, all in (C1). D. Received in formalin labeled "Reza | | | Kalal" and "Mid esophageal bx" on the requisition are four santillan-brock | | | tissue fragments measuring from 0.25-0.4 cm, submitted, all in (D1). | | | ka:[facility] PERFORMING LABORATORY: Tissue processing and slide | | | preparation were performed by [facility], [address] | | | [address], [place] [address] (Heel Gummer: Alex Hathaway M.D. | | | CLIA#: [id number]). Professional interpretation was performed by | | | [facility], [facility], [address] [place] [address] (Heel Gummer: Alex Hathaway, | | | [place]; CLIA#: [id number]). Diagnostician: Alex Hathaway MD | | | Pathologist Electronically Signed 11/19/2017 | | + + + + +---------+ + + | Performing | Address | City/State/[facility] Centercode | Phone Number | | Organization | | | | + +---------+ + + | [facility] | | | | | [facility] | | | | + +---------+ + + documented in this encounter Visit Diagnoses Not on filedocumented in this encounter Admitting Diagnoses + + | Diagnosis | + + | Nausea Nausea alone | + + documented in this encounter Administered Medications + +--------+---------+------+------+------+ | Medication Order | MAR | Action | Dose | Rate | Site | | | Action | Date | | | | + +--------+---------+------+------+------+ + +---+ | albuterol 2.5 mg/3 mL nebulizer | | | solution 2.5 mg 2.5 mg, | | | Nebulization, ONCE PRN, Wheezing, | | | Starting Thu11/18/17 at 0855, | | | For 1 dose, Notify anesthesia if | | | patient is wheezing and does not | | | have a history of asthma or COPD | | | or current smoking., | | | Recovery/Phase I | | + +---+ | | | + +---+ | dextrose 50% injection 12.5-25 | | | g 12.5-25 g, Intravenous, EVERY | | | 15 MIN PRN, Low Blood Sugar, Give | | | 12.5g (25 mL) IV if blood | | | glucose 50-69 mg/dL. Give 25g | | | (50 mL) IV if blood glucose < 50, | | | Starting 11/18/17 at 0807, | | | Repeat in 15 min if blood glucose | | | remains < 70 mg/dL. Repeat | | | blood glucose in 30 min once | | | blood glucose > 70., Pre-op | | + +---+ | | | + +---+ | dextrose 50% injection 12.5-25 | | | g 12.5-25 g, Intravenous, EVERY | | | 15 MIN PRN, Low Blood Sugar, For | | | hypoglycemia. Give 12.5g (25ml) | | | IV if blood glucose 50-69 | | | mg/dL. Give 25g (50ml) IV if | | | blood glucose < 50, Starting Wed | | | 11/18/17 at 0855, Give over 2 min. | | | Repeat in 15 min if blood | | | glucose remains < 70 mg/dL. | | | Repeat blood glucose in 30 min | | | once blood glucose > 70., | | | Recovery/Phase I | | + +---+ | | | + +---+ | lactated ringers (LR) infusion | | | at 100 mL/hr, Intravenous, | | | CONTINUOUS, Starting 11/18/17 | | | at 0830, Pre-op | | + +---+ | | | + +---+ + +---------+ +---+-------+---+ | lactated ringers (LR) infusion | New Bag | 11/19/19 | | 100 | | | at 10-100 mL/hr, Intravenous, | | 18 8:20 | | mL/hr | | | CONTINUOUS, Starting 11/18/17 | | AM PDT | | | | | at 0830, TKO., Pre-op | | | | | | + +---------+ +---+-------+---+ +---------+ +---+---+---+ | New Bag | 11/19/19 | | | | | | 18 8:16 | | | | | | AM PDT | | | | +---------+ +---+---+---+ + +---+ | | | + +---+ | ondansetron (ZOFRAN) injection | | | 4 mg 4 mg, Intravenous, ONCE | | | PRN, Nausea, Starting 11/18/17 | | | at 0855, For 1 dose, | | | Recovery/Phase I | | + +---+ | | | + +---+ documented in this encounter
--- OUTSIDE RECORDS SUMMARY | ~2020-01-31 | XMS | Encounter Summary ---
Demographics + + + | Address | [address] | | | [place] [address] | + + + | Home Phone [...] | Author | [facility] | | | and [place] | + + + | Organization | [facility] | | | and [place] | [...] [place] | | | | | [address] | | + + + + + Care Team Providers + +------+ + | Care Field Handyman Name | Role | Phone | + [...] | | | [place] | [place] | | | | | [address] | [address] | | | | | [phone] | [phone] | | | | | | | [...] | + +--------+ + + + | CULTURE, BLOOD | SONALI | 10/03/2013 | | Results for this | | | | 3:55 PM | | procedure are in the | | | | PST | | results section. | + +--------+ + + + documented in this encounter Results Culture, Blood (10/03/2013 3:55 PM PST) + + | Specimen | + + | | + + + + + | Narrative | Performed At | + + + | Specimen Description BLOOD | EXTERNAL LAB | | Testing performed at [facility] | | | Health;[address];[place] [address] CULTURE | | | NO GROWTH 6 DAYS | | | Testing performed at [facility], [address] [facility], | | | [place] [address] REPORT STATUS | | | 10/09/2013 FINAL | | + + + + +---------+ + + | Performing | Address | City/State/Zipcode | Phone Number | | Organization | | | | + +---------+ + + | EXTERNAL LAB | | | | + +---------+ + + documented in this encounter Visit Diagnoses Not on filedocumented in this encounter"
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
--- OUTSIDE RECORDS SUMMARY | ~2020-01-31 | XMS | Encounter Summary ---
Demographics + + + | Address | [address] | | | [place] [address] | + + + | Home Phone | | + + + | Preferred Language | Unknown | + + + | Marital Status | | + + + | Confucianist Affiliation | 1013 | + + + | Race | Unknown | + + + | Ethnic Group | Unknown | + + + Author + + + | Author | [facility] | | | and [place] | + + + | Organization | [facility] | | | and [place] | + + + | Address | Unknown | + + + | Phone | Unavailable | + + + Support + + + + + | Name | Relationship | Address | Phone | + + + + + | Teodora Cespedes | ECON | [address] | | | | | [place] | | | | | [address] | | + + + + + Care Team Providers + +------+ + | Care Investigator Operator Name | Role | Phone | + +------+ + | Allison Fairchild NP | PCP | | + +------+ + Encounter Details +--------+ + + + + | Date | Type | Department | Care Team | Description | +--------+ + + + + | 11/12/ | Episode | [facility] | Anna Rodriguez, | | | 2018 | Changes | GASTROENTEROLOGY | RN | | | | | [address] [place] | | | | | | [address] [place] | | | | | | [address] | | | | | | [phone] | | | +--------+ + + + [...]
--- OUTSIDE RECORDS SUMMARY | ~2020-01-31 | XMS | Encounter Summary ---
Demographics + + + | Address | [address] | | | [place] [address] | + + + | Home Phone | | + + + | Preferred Language | Unknown | + + + | Marital Status | | + + + | Denominational Affiliation | 1013 | + + + | Race | Unknown | + + + | Ethnic Group | Unknown | + + + Author + + + | Author | [facility] | | | and [place] | + + + | Organization | [facility] | | | and [place] | + + + | Address | Unknown | + + + | Phone | Unavailable | + + + Support + + + + + | Name | Relationship | Address | Phone | + + + + + | Teodora Han | ECON | [address] | | | | | [place] | | | | | [address] | | + + + + + Care Team Providers + +------+ + | Care Orthodontic Assistant Name | Role | Phone | + +------+ + PCP | Unavailable | + +------+ + Encounter Details +--------+ + + + + | Date | Type | Department | Care Team | Description | +--------+ + + + + | 07/12/ | Emergency | [facility] | | Leukocytosis; Nausea | | 2013 | | [facility]ICAL CENTER | | and vomiting; UTI | | | | EMERG[facility]Y CENTER | | (urinary tract | | | | [address] | | infection); Acute | | | | [place] | | bronchiolitis; | | | | [phone] | | Abdominal pain, | | | | [phone] | | acute | +--------+ + + + + Social [...] + +--------+ + + + | CULTURE, URINE | STAT | 07/12/2014 | | Results for this | | | | 5:21 PM | | procedure are in the | | | | PST | | results section. | + +--------+ + + + | URINALYSIS, | Routin | 07/12/2014 | | Results for this | | MICROSCOPIC ONLY | e | 5:20 PM | | procedure are in the | | | | PST | | results section. | + +--------+ + + + | CT CHEST ABDOMEN | Routin | 07/12/2014 | | Results for this | | PELVIS W CONTRAST | e | 4:45 PM | | procedure are in the | | | | PST | | results section. | + +--------+ + + + | ECG 12 LEAD | Routin | 07/12/2014 | | Results for this | | | e | 4:26 PM | | procedure are in the | | | | PST | | results section. | + +--------+ + + + | CULTURE, BLOOD, 2ND | STAT | 07/12/2014 | | Results for this | | SPECIMEN (NON-ORD) | | 4:09 PM | | procedure are in the | | | | PST | | results section. | + +--------+ + + + | HISTORICAL LAB PANEL | Routin | 07/12/2014 | | Results for this | | RESULT | e | 3:30 PM | | procedure are in the | | | | PST | | results section. | + +--------+ + + + | CULTURE, BLOOD | STAT | 07/12/2014 | | Results for this | | | | 3:30 PM | | procedure are in the | | | | PST | | results section. | + +--------+ + + + documented in this encounter Results Culture, Urine (07/12/2014 5:21 PM PST) + + | Specimen | + + | Urine specimen | | (specimen) | + + + + + | Narrative | Performed At | + + + | Specimen Description CLEAN CATCH URINE CULTURE | EXTERNAL LAB | | NO GROWTH | | | Testing performed at [facility], [address] | | [place] [address] | | + + + + +---------+ + + | Performing | Address | City/State/Zipcode | Phone Number | | Organization | | | | + +---------+ + + | EXTERNAL LAB | | | | + +---------+ + + Urinalysis, Microscopic Only (07/12/2014 5:20 PM PST) + + + + + + | Component | Value | Ref Range | Performed | Pathologist | | | | | At | Signature | + + + + + + | WBC, UA | 6-10Comment: Testing | 0 - 5 /hpf | EXTERNAL | | | | performed at [facility];[address] | | LAB | | | | [address];[place] | | | | | | [address] | | | | + + + + + + | RBC, UA | 0-2Comment: Testing | 0 - 2 /hpf | EXTERNAL | | | | performed at [facility];[address] | | LAB | | | | [address];[place] | | | | | | [address] | | | | + + + + + + | Epithelial | NONE SEENComment: | /lpf | EXTERNAL | | | Cells | Testing performed at | | LAB | | | | [facility];[address];[place] [address] | | | | + + + + + + | Bacteria, | 1+ (A)Comment: Testing | | EXTERNAL | | | UA | performed at [facility];[address] | | LAB | | | | [address];[place] | | | | | | [address] | | | | + + + + + + | Mucus, | 4+Comment: Testing | | EXTERNAL | | | Urine | performed at [facility];[address] | | LAB | | | | [address];[place] | | | | | | [address] | | | | + + + + + + | CASTS | 11-15Comment: | /lpf | EXTERNAL | | | | HYALINETesting performed | | LAB | | | | at [facility];[address] | | | | | [address];[place] [address] | | | | | | | | | | + + + + + + + + | Specimen | + + | Urine specimen | | (specimen) | + + + +---------+ + + | Performing | Address | City/State/Zipcode | Phone Number | | Organization | | | | + +---------+ + + | EXTERNAL LAB | | | | + +---------+ + + CT Chest Abdomen Pelvis w Contrast (07/12/2014 4:45 PM PST) + + | Specimen | + + | | + + + + + | Impressions | Performed At | + + + | 1. Postoperative inflammation and fat stranding deep to the | | | incision site. No drainable fluid collection or abscess. Nonspecific | | | postoperative fat stranding of the omental fat deep to the operative | | | site. 2. Common bile duct stent with uncomplicated position. 3. | | | Prior right pelvic trauma with right iliac wing hardware fixation. | | | 4. Lungs are clear. No pleural effusion. No lung consolidation. | | | | | + + + + + + | Narrative | Performed At | + + + | APARNA HAN [address] CHEST ABDOMEN PELVIS W | | | CONTRAST 07/12/2014 4:45 PM HISTORY: Dyspnea with recent | | | surgical abdominal wound which is draining. COMPARISON: March 31 | | | 2013 TECHNIQUE: 5-mm axial images were acquired through the | | | chest, abdomen and pelvis. Oral Contrast: Readi-Cat IV contrast: 100 | | | mL Isovue-300 FINDINGS: CHEST: Lungs: Lungs are clear. No | | | lung nodules. No consolidation. Heart: Heart size is normal. No | | | pericardial effusion. Trachea and bronchi: Normal. Amie: No | | | hilar adenopathy. Pleura: Normal. No effusion or pneumothorax | | | ABDOMEN/PELVIS Liver: Normal. No focal masses. Normal hepatic | | | vasculature. Bile ducts: Common bile duct stent. No intrahepatic | | | biliary dilation. No pancreatic duct dilation. Gallbladder: | | | Normal. No cholelithiasis or evidence of cholecystitis. Pancreas: | | | Normal. No focal lesions. No ductal dilatation. Spleen: Normal. | | | Adrenal Glands: Normal. Kidneys/Ureters: Normal. No | | | hydronephrosis or nephrolithiasis. Stomach and Small Bowel: | | | Normal. No wall thickening. No focal lesions. No obstruction or | | | perforation. Anterior abdominal wound with small amount of | | | underlying soft tissue fat stranding and minimal fluid in the | | | immediate subcutaneous soft tissues. There is anterior herniorrhaphy | | | mesh. No abscess. There is nonspecific fat stranding of the omental | | | fat inferior to the operative site (). Colon: Normal. No | | | wall thickening. No focal lesions. Appendix is normal. | | | Vasculature: No aortic aneurysm. Bladder: Normal. Skeleton: | | | Plate and screw fixation of the right iliac wing with posttraumatic | | | deformity of the superior and inferior right pubic rami. 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 Old right coracoid process | | | fracture. | | + + + + + | Procedure Note | + + | Ethan, Rad Conversion - 04/22/2019 12:50 PM PDT APARNA HAN years MaleCT | | CHEST ABDOMEN PELVIS W [id number]/5/2014 4:45 PM HISTORY: Dyspnea with recent surgical | | abdominal wound which is draining. COMPARISON: March 31, 2014 TECHNIQUE:5-mm axial images | | were acquired through the chest, abdomen and pelvis.Oral Contrast: Readi-CatIV | | contrast: 100 mL Isovue-300 FINDINGS: CHEST:Lungs: Lungs are clear. No lung nodules. No | | consolidation. Heart: Heart size is normal. No pericardial effusion. Trachea and | | bronchi: Normal. Amie: No hilar adenopathy. Pleura: Normal. No effusion or pneumothorax | | ABDOMEN/PELVISLiver: Normal. No focal masses. Normal hepatic vasculature. Bile ducts: | | Common bile duct stent. No intrahepatic biliary dilation. No pancreatic duct dilation. | | Gallbladder: Normal. No cholelithiasis or evidence of cholecystitis. Pancreas: Normal. | | No focal lesions. No ductal dilatation. Spleen: Normal. Adrenal Glands: Normal. | | Kidneys/Ureters: Normal. No hydronephrosis or nephrolithiasis. Stomach and Small Bowel: | | Normal. No wall thickening. No focal lesions. No obstruction or perforation. Anterior | | abdominal wound with small amount of underlying soft tissue fat stranding and minimal | | fluid in the immediate subcutaneous soft tissues. There is anterior herniorrhaphy mesh. | | No abscess. There is nonspecific fat stranding of the omental fat inferior to the | | operative site (). Colon: Normal. No wall thickening. No focal lesions. Appendix is | | normal. Vasculature: No aortic aneurysm. Bladder: Normal. Skeleton: Plate and screw | | fixation of the right iliac wing with posttraumatic deformity of the superior and | | inferior right pubic rami. Bilateral moderate hip joint degeneration. Old right coracoid | | process fracture. IMPRESSION: 1. Postoperative inflammation and fat stranding deep | | to the incision site. No drainable fluid collection or abscess. Nonspecific | | postoperative fat stranding of the omental fat deep to the operative site.2. Common | | bile duct stent with uncomplicated position.3. Prior right pelvic trauma with right | | iliac wing hardware fixation.4. Lungs are clear. No pleural effusion. No lung | | consolidation. | |Pleura: Normal. No effusion or pneumothorax | | | | | |ABDOMEN/PELVIS | |Liver: Normal. No focal masses. Normal hepatic vasculature. | | | |Bile ducts: Common bile duct stent. No intrahepatic biliary dilation. No pancreatic duct di lation. | | | |Gallbladder: Normal. No cholelithiasis or evidence of cholecystitis. | | | |Pancreas: Normal. No focal lesions. No ductal dilatation. | | | |Spleen: Normal. | | | |Adrenal Glands: Normal. | | | |Kidneys/Ureters: Normal. No hydronephrosis or nephrolithiasis. | | | |Stomach and Small Bowel: Normal. No wall thickening. No focal lesions. No obstruction or pe rforation. | | | |Anterior abdominal wound with small amount of underlying soft tissue fat stranding and mini mal fluid in the immediate subcutaneous soft tissues. There is anterior herniorrhaphy mesh. No abscess. There is nonspecific fat stranding of the omental fat | |inferior to the operative site (). | | | |Colon: Normal. No wall thickening. No focal lesions. Appendix is normal. | | | |Vasculature: No aortic aneurysm. | | | |Bladder: Normal. | | | |Skeleton: Plate and screw fixation of the right iliac wing with posttraumatic deformity of the superior and inferior right pubic rami. Bilateral moderate hip joint degeneration. | | | |Old right coracoid process fracture. | | | | | |IMPRESSION: | | | |1. Postoperative inflammation and fat stranding deep to the incision site. No drainable fl uid collection or abscess. Nonspecific postoperative fat stranding of the omental fat deep t o the operative site. | |2. Common bile duct stent with uncomplicated position. | |3. Prior right pelvic trauma with right iliac wing hardware fixation. | |4. Lungs are clear. No pleural effusion. No lung consolidation. | | | | | + + ECG 12 lead (07/12/2014 4:26 PM PST) + + + + + + | Component | Value | Ref Range | Performed | Pathologist | | | | | At | Signature | + + + + + + | DIAGNOSIS: | Normal sinus | | EXTERNAL | | | | rhythmNormal ECGWhen | | LAB | | | | compared with ECG of | | | | | | -MAR-2014 | | | | | | 13:20,Nonspecific T wave | | | | | | abnormality, worse in | | | | | | Inferior leadsThis ECG | | | | | | contains Unconfirmed | | | | | | Interpretation | | | | | | Statements. See ED | | | | | | Record for Physician | | | | | | Interpretation. | | | | | | Confirmed by MUSE READ | | | | | | ONLY, -COMPUTER ([id number]), | | | | | | image editor SUKHDEV ISAAC ([id number]) | | | | | | on 07/12/2014 6:05:10 PM | | | | | | | | | | + + + + + + + + | Specimen | + + | | + + + + + | Narrative | Performed At | + + + | Historically converted procedure from [facility] environment | EXTERNAL LAB | + + + + +---------+ + + | Performing | Address | City/State/Zipcode | Phone Number | | Organization | | | | + +---------+ + + | EXTERNAL LAB | | | | + +---------+ + + Culture, Blood, 2nd Specimen (07/12/2014 4:09 PM PST) + + | Specimen | + + | Blood specimen | | (specimen) | + + + + + | Narrative | Performed At | + + + | Specimen Description BLOOD SPECIAL | EXTERNAL LAB | | REQUESTS TONI | | | Testing performed at [facility];[address];[place] [address] CULTURE | | | NO GROWTH | | | Testing performed at [facility], [address], [place], [place] | | | [address] | | + + + + +---------+ + + | Performing | Address | City/State/Zipcode | Phone Number | | Organization | | | | + +---------+ + + | EXTERNAL LAB | | | | + +---------+ + + HISTORICAL LAB PANEL RESULT (07/12/2014 3:30 PM PST) + + + + + -+ | Component | Value | Ref Range | Performed | Pathologist | | | | | At | Signature | + + + + + -+ | WBC | 15.7 (H)Comment: Testing | 3.8 - 11.0 K/uL | EXTERNAL | | | | performed at [facility];[address] | | LAB | | | | [address];[place] | | | | | | [address] | | | | + + + + + -+ | Red Blood | 4.67Comment: Testing | 4.20 - 5.70 | EXTERNAL | | | Cells | performed at [facility];[address] | M/uL | LAB | | | Counted | [address];[place] | | | | | | [address] | | | | + + + + + -+ | Hemoglobin | 13.9Comment: Testing | 13.2 - 17.0 | EXTERNAL | | | | performed at [facility];[address] | g/dL | LAB | | | | [address];[place] | | | | | | [address] | | | | + + + + + -+ | Hematocrit, | 41.9Comment: Testing | 39.0 - 50.0 % | EXTERNAL | | | POC | performed at [facility];[address] | | LAB | | | | [address];[place] | | | | | | [address] | | | | + + + + + -+ | MCV | 89.6Comment: Testing | 80.0 - 100.0 fl | EXTERNAL | | | | performed at [facility];[address] | | LAB | | | | [address];[place] | | | | | | [address] | | | | + + + + + -+ | MCH | 29.7Comment: Testing | 27.0 - 34.0 pg | EXTERNAL | | | | performed at [facility];[address] | | LAB | | | | [address];[place] | | | | | | [address] | | | | + + + + + -+ | MCHC | 33.2Comment: Testing | 32.0 - 35.5 | EXTERNAL | | | | performed at [facility];[address] | g/dL | LAB | | | | [address];[place] | | | | | | [address] | | | | + + + + + -+ | RDW-CV | 46.4Comment: Testing | 37 - 53 fl | EXTERNAL | | | | performed at [facility];[address] | | LAB | | | | [address];[place] | | | | | | [address] | | | | + + + + + -+ | Platelet | 603 (H)Comment: Testing | 150 - 400 K/uL | EXTERNAL | | | Count | performed at [facility];[address] | | LAB | | | Plasma | [address];[place] | | | | | | [address] | | | | + + + + + -+ | MPV | 7.8Comment: Testing | fl | EXTERNAL | | | | performed at [facility];[address] | | LAB | | | | [address];[place] | | | | | | [address] | | | | + + + + + -+ | Differentia | MANUALComment: Testing | | EXTERNAL | | | l Type | performed at [facility];[address] | | LAB | | | | [address];[place] | | | | | | [address] | | | | + + + + + -+ | Segmented | 73Comment: Testing | % | EXTERNAL | | | Neutrophils | performed at [facility];[address] | | LAB | | | Manual | [address];[place] | | | | | | [address] | | | | + + + + + -+ | % Bands | 4Comment: Testing | % | EXTERNAL | | | | performed at [facility];[address] | | LAB | | | | [address];[place] | | | | | | [address] | | | | + + + + + -+ | Lymphocytes | 18Comment: Testing | % | EXTERNAL | | | Manual | performed at [facility];[address] | | LAB | | | | [address];[place] | | | | | | [address] | | | | + + + + + -+ | Monocytes | 5Comment: Testing | % | EXTERNAL | | | Manual | performed at [facility];[address] | | LAB | | | | [address];[place] | | | | | | [address] | | | | + + + + + -+ | Absolute | 11.5 (H)Comment: Testing | 1.9 - 7.4 K/uL | EXTERNAL | | | Neutrophils | performed at [facility];[address] | | LAB | | | | [address];[place] | | | | | | [address] | | | | + + + + + -+ | Bands | 0.6 (H)Comment: Testing | 0 - 0.2 K/uL | EXTERNAL | | | Manual | performed at [facility];[address] | | LAB | | | | [address];[place] | | | | | | [address] | | | | + + + + + -+ | Absolute | 2.8Comment: Testing | 1.0 - 3.9 K/uL | EXTERNAL | | | Lymphocytes | performed at [facility];[address] | | LAB | | | | [address];[place] | | | | | | [address] | | | | + + + + + -+ | Absolute | 0.8Comment: Testing | 0 - 0.8 K/uL | EXTERNAL | | | Monocytes | performed at [facility];[address] | | LAB | | | | [address];[place] | | | | | | [address] | | | | + + + + + -+ | RBC | 1+Comment: ANISOGIANT | | EXTERNAL | | | Morphology | PLATELETSTesting | | LAB | | | | performed at [facility];[address] | | | | | | [address];[place] | | | | | | [address] | | | | | | | | | | + + + + + -+ | Na | 138Comment: Testing | 135 - 143 | EXTERNAL | | | | performed at [facility];[address] | mmol/L | LAB | | | | [address];[place] | | | | | | [address] | | | | + + + + + -+ | K | 3.5Comment: SLT | 3.5 - 4.9 | EXTERNAL | | | | HEMOLYSISTesting | mmol/L | LAB | | | | performed at [facility];[address] | | | | | | [address];[place] | | | | | | [address] | | | | + + + + + -+ | Cl | 106Comment: Testing | 99 - 109 mmol/L | EXTERNAL | | | | performed at [facility];[address] | | LAB | | | | [address];[place] | | | | | | [address] | | | | + + + + + -+ | CO2 | 22 (L)Comment: Testing | 23 - 32 mmol/L | EXTERNAL | | | | performed at [facility];[address] | | LAB | | | | [address];[place] | | | | | | [address] | | | | + + + + + -+ | Anion Gap | 14Comment: Testing | 5 - 20 mmol/L | EXTERNAL | | | | performed at [facility];[address] | | LAB | | | | [address];[place] | | | | | | [address] | | | | + + + + + -+ | Glucose, | 109 (H)Comment: Testing | 65 - 99 mg/dL | EXTERNAL | | | Fasting | performed at [facility];[address] | | LAB | | | | [address];[place] | | | | | | [address] | | | | + + + + + -+ | BUN | 32 (H)Comment: Testing | 8 - 25 mg/dL | EXTERNAL | | | | performed at [facility];[address] | | LAB | | | | [address];[place] | | | | | | [address] | | | | + + + + + -+ | Creatinine | 1.16Comment: Testing | 0.70 - 1.30 | EXTERNAL | | | | performed at [facility];[address] | mg/dL | LAB | | | | [address];[place] | | | | | | [address] | | | | + + + + + -+ | BUN/Creatin | 28Comment: Testing | | EXTERNAL | | | ine Ratio | performed at [facility];[address] | | LAB | | | | [address];[place] | | | | | | [address] | | | | + + + + + -+ | Calcium | 9.6Comment: Testing | 8.5 - 10.2 | EXTERNAL | | | | performed at [facility];[address] | mg/dL | LAB | | | | [address];[place] | | | | | | [address] | | | | + + + + + -+ | Protein, | 8.2Comment: Testing | 6.3 - 8.2 g/dL | EXTERNAL | | | Total | performed at [facility];[address] | | LAB | | | | [address];[place] | | | | | | [address] | | | | + + + + + -+ | Albumin | 3.5 (L)Comment: Testing | 3.6 - 5.0 g/dL | EXTERNAL | | | | performed at [facility];[address] | | LAB | | | | [address];[place] | | | | | | [address] | | | | + + + + + -+ | Globulin | 4.6Comment: Testing | 1.3 - 4.9 g/dL | EXTERNAL | | | | performed at [facility];[address] | | LAB | | | | [address];[place] | | | | | | [address] | | | | + + + + + -+ | A/G Ratio | 0.8 (L)Comment: Testing | 1.0 - 2.4 | EXTERNAL | | | | performed at [facility];[address] | | LAB | | | | [address];[place] | | | | | | [address] | | | | + + + + + -+ | Bilirubin | 0.5Comment: Testing | 0.1 - 1.5 mg/dL | EXTERNAL | | | Total | performed at [facility];[address] | | LAB | | | | [address];[place] | | | | | | [address] | | | | + + + + + -+ | ALP, | 111Comment: Testing | 35 - 115 U/L | EXTERNAL | | | External | performed at [facility];[address] | | LAB | | | | [address];[place] | | | | | | [address] | | | | + + + + + -+ | AST | 27Comment: SLT | 10 - 45 U/L | EXTERNAL | | | | HEMOLYSISTesting | | LAB | | | | performed at [facility];[address] | | | | | | [address];[place] | | | | | | [address] | | | | + + + + + -+ | ALT | 23Comment: Testing | 10 - 65 U/L | EXTERNAL | | | | performed at [facility];[address] | | LAB | | | | [address];[place] | | | | | | [address] | | | | + + + + + -+ | Estimated | >60Comment: GFR <60: | mL/min/1.73m2 | EXTERNAL | | | GFR | CHRONIC KIDNEY DISEASE, | | LAB | | | | IF FOUND OVER A 3 MONTH | | | | | | PERIOD.GFR <15: KIDNEY | | | | | | FAILURE.FOR | | | | | | AMERICANS, MULTIPLY THE | | | | | | CALCULATED GFR BY | | | | | | 1.210.Testing performed | | | | | | at [facility];[address];[place] [address] | | | | + + + + + -+ | CK, Total | 149Comment: Testing | 55 - 400 U/L | EXTERNAL | | | | performed at [facility];[address] | | LAB | | | | [address];[place] | | | | | | [address] | | | | + + + + + -+ | INR | 1.1Comment: REFERENCE | | EXTERNAL | | | | RANGE:0.9 - 1.2 | | LAB | | | | NON-ANTICOAGULATED2.0 | | | | | | - 3.0 ALL OTHER | | | | | | THERAPEUTIC | | | | | | INDICATIONS2.5 - 3.5 | | | | | | MECHANICAL HEART VALVES, | | | | | | RECURRENT OR SYSTEMIC | | | | | | EMBOLISMTesting | | | | | | performed at [facility];[address] | | | | | | [address];[place] | | | | | | [address] | | | | + + + + + -+ | aPTT, | 24Comment: Testing | 23 - 32 seconds | EXTERNAL | | | Patient | performed at [facility];[address] | | LAB | | | | [address];[place] | | | | | | [address] | | | | + + + + + -+ | CK-MB | 0.6Comment: Testing | 0.5 - 3.6 ng/mL | EXTERNAL | | | | performed at [facility];[address] | | LAB | | | | [address];[place] | | | | | | [address] | | | | + + + + + -+ | CK-MB Index | 0.4Comment: CK INDEX | | EXTERNAL | | | | INTERPRETATION: | | LAB | | | | MMB ng/mL | | | | | | | | | | | |CK INDEX INTERPRETATION: | | | | | | MMB ng/mL | | | | | | | | | | + + + + + -+ + + | Specimen | + + | | + + + +---------+ + + | Performing | Address | City/State/Zipcode | Phone Number | | Organization | | | | + +---------+ + + | EXTERNAL LAB | | | | + +---------+ + + Culture, Blood (07/12/2014 3:30 PM PST) + + | Specimen | + + | Blood specimen | | (specimen) | + + + + + | Narrative | Performed At | + + + | Specimen Description BLOOD CULTURE | EXTERNAL LAB | | NO GROWTH | | | Testing performed at [facility], [address] | | [place] [address] | | + + + + +---------+ + + | Performing | Address | City/State/Zipcode | Phone Number | | Organization | | | | + +---------+ + + | EXTERNAL LAB | | | | + +---------+ + + documented in this encounter Visit Diagnoses + + | Diagnosis | + + | Leukocytosis Leukocytosis, unspecified | + + | Nausea and vomiting Nausea with vomiting | + + | UTI (urinary tract infection) Urinary tract infection, site not specified | + + | Acute bronchiolitis Acute bronchiolitis due to other infectious organisms | + + | Abdominal pain, acute Abdominal pain, unspecified site | + + documented in this encounter"
--- OUTSIDE RECORDS SUMMARY | ~2020-01-31 | XMS | Encounter Summary ---
Demographics + + + | Address | [address] | | | [place] [address] | + + + | Home Phone | | + + + | Preferred Language | Unknown | + + + | Marital Status | | + + + | Rastafari Affiliation | 1013 | + + + | Race | Unknown | + + + | Ethnic Group | Unknown | + + + Author + + + | Author | [facility] | | | and [place] | + + + | Organization | [facility] | | | and [...] [place] | | | | | [address] | | + + + + + Care Team Providers + +------+ + | Care Perl Programmer Name | Role | Phone | + +------+ + | Allison Fairchild NP | PCP | | + +------+ + Reason for Visit + + + | Reason | Comments | + + + | Medication Refill | | + + + Encounter Details +--------+--------+ + + + | Date | Type | Department | Care Team | Description | +--------+--------+ + + + | 09/29/ | Refill | [facility] | Adrian Aponte MD | Medication Refill | | 2016 | | GASTROENTEROLOGY | [address] | | | | | [address] | [place], [place] | | | | | [address] [place] | [address] | | | | | [address] | [phone] | | | | | [phone] | | | +--------+--------+ + + + Social History + + [...]
--- OUTSIDE RECORDS SUMMARY | ~2020-01-31 | XMS | Encounter Summary ---
Demographics + + + | Address | [address] | | | [place] [address] | + + + | Home Phone | | + + + | Preferred Language | Unknown | + + + | Marital Status | | + + + | Uatsdin Affiliation | 1013 | + + + | Race | Unknown | + + + | Ethnic Group | Unknown | + + + Author + + + | Author | [facility] | | | and [place] | + + + | Organization | [facility] | | | and [place] [...] [place] | | | | | [address] | | + + + + + Care Team Providers + +------+ + | Care Correctional Nurse Name | Role | Phone | + [...] [place] | | | | | [address] | [address] | | | | | [phone] | [phone] | | | | | | | [...] + + | COMPREHENSIVE | Routin | 10/03/2013 | | Results for this | | METABOLIC PANEL | e | 4:05 PM | | procedure are in the | | | | PST | | results section. | + +--------+ + + + documented in this encounter Results Comprehensive Metabolic Panel (10/03/2013 4:05 PM PST) + + + + + + | Component | Value | Ref Range | Performed | Pathologist | | | | | At | Signature | + + + + + + | Na | 126 (L)Comment: Testing | 135 - 143 | EXTERNAL | | | | performed at [facility] | mmol/L | LAB | | | | [facility];[address] | | | | | | [place] | | | | | | [address] | | | | + + + + + + | K | 5.6 (H)Comment: Testing | 3.5 - 4.9 | EXTERNAL | | | | performed at [facility] | mmol/L | LAB | | | | Health;[address] | | | | | | [place] | | | | | | [address] | | | | + + + + + + | Cl | 95 (L)Comment: Testing | 99 - 109 mmol/L | EXTERNAL | | | | performed at [facility] | | LAB | | | | Health;[address] | | | | | | [place] | | | | | | [address] | | | | + + + + + + | CO2 | 22 (L)Comment: Testing | 23 - 32 mmol/L | EXTERNAL | | | | performed at [facility] | | LAB | | | | Health;[address] | | | | | | [place] | | | | | | [address] | | | | + + + + + + | Anion Gap | 15Comment: Testing | 5 - 20 mmol/L | EXTERNAL | | | | performed at [facility] | | LAB | | | | Health;[address] | | | | | | [place] | | | | | | [address] | | | | + + + + + + | Glucose, | 126 (H)Comment: Testing | 65 - 99 mg/dL | EXTERNAL | | | Fasting | performed at [facility] | | LAB | | | | Health;[address] | | | | | | [place] | | | | | | [address] | | | | + + + + + + | BUN | 30 (H)Comment: Testing | 8 - 25 mg/dL | EXTERNAL | | | | performed at [facility] | | LAB | | | | Health;[address] | | | | | | [place] | | | | | | [address] | | | | + + + + + + | Creatinine | 1.2Comment: Testing | 0.70 - 1.30 | EXTERNAL | | | | performed at [facility] | mg/dL | LAB | | | | Health;[address] | | | | | | [place] | | | | | | [address] | | | | + + + + + + | BUN/Creatin | 25Comment: Testing | | EXTERNAL | | | ine Ratio | performed at [facility] | | LAB | | | | Health;[address] | | | | | | [place] | | | | | | [address] | | | | + + + + + + | Calcium | 9.9Comment: Testing | 8.5 - 10.2 | EXTERNAL | | | | performed at [facility] | mg/dL | LAB | | | | Health;[address] | | | | | | [place] | | | | | | [address] | | | | + + + + + + | Protein, | 7.7Comment: Testing | 6.3 - 8.2 g/dL | EXTERNAL | | | Total | performed at [facility] | | LAB | | | | Health;[address] | | | | | | [place] | | | | | | [address] | | | | + + + + + + | Albumin | 3.6Comment: Testing | 3.6 - 5.0 g/dL | EXTERNAL | | | | performed at [facility] | | LAB | | | | Health;[address] | | | | | | [place] | | | | | | [address] | | | | + + + + + + | Globulin | 4.1Comment: Testing | 1.3 - 4.9 g/dL | EXTERNAL | | | | performed at [facility] | | LAB | | | | Health;[address] | | | | | | [place] | | | | | | [address] | | | | + + + + + + | A/G Ratio | 0.9 (L)Comment: Testing | 1.0 - 2.4 | EXTERNAL | | | | performed at [facility] | | LAB | | | | Health;[address] | | | | | | [place] | | | | | | [address] | | | | + + + + + + | Bilirubin | 0.2Comment: Testing | 0.1 - 1.5 mg/dL | EXTERNAL | | | Total | performed at [facility] | | LAB | | | | Health;[address] | | | | | | [place] | | | | | | [address] | | | | + + + + + + | ALP, | 116 (H)Comment: Testing | 35 - 115 U/L | EXTERNAL | | | External | performed at [facility] | | LAB | | | | Health;[address] | | | | | | [place] | | | | | | [address] | | | | + + + + + + | AST | 58 (H)Comment: Testing | 10 - 45 U/L | EXTERNAL | | | | performed at [facility] | | LAB | | | | Health;[address] | | | | | | [place] | | | | | | [address] | | | | + + + + + + | ALT | 67 (H)Comment: Testing | 10 - 65 U/L | EXTERNAL | | | | performed at [facility] | | LAB | | | | Health;[address] | | | | | | [place] | | | | | | [address] | | | | + + + [...] | | | | | | at [facility];[address] | | | | | | [place] | | | | | | [address] | | | | + + + [...]
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
--- OUTSIDE RECORDS SUMMARY | ~2020-01-31 | XMS | Encounter Summary ---
Demographics + + + | Address | [address] | | | [place] [address] | + + + | Home Phone | | + + + | Preferred Language | Unknown | + + + | Marital Status | | + + + | Zoroastrianism Affiliation | 1013 | + + + | Race | Unknown | + + + | Ethnic Group | Unknown | + + + Author + + + | Author | [facility] | | | and [place] | + + + | Organization | [facility] | | | and [place] | + + + | Address | Unknown | + + + | Phone | Unavailable | + + + Support + + + + + | Name | Relationship | Address | Phone | + + + + + | Teodora Cespedes | ECON | [address] | | | | | [facility] [place] | | | | | [address] | | + + + + + Care Team Providers + +------+ + | Care Fire Regulator Name | Role | Phone | + +------+ + PCP | Unavailable | + +------+ + Encounter Details +--------+ + + + + | Date | Type | Department | Care Team | Description | +--------+ + + + + | 12/07/ | Hospital | [facility] | Conversion | | | 2014 | Encounter | [facility] | Transaction, | | | | | CLINIC [address] | Provider Unknown | | | | | [place], [place] | | | | | | [address] | (Fax) | | | | | [phone] | | | +--------+ + + + [...] | + +--------+ + + + | TYPE AND SCREEN | Routin | 12/07/2014 | | Results for this | | | e | 1:41 PM | | procedure are in the | | | | PDT | | results section. | + +--------+ + + + | EXTERNAL LAB: CBC | Routin | 12/07/2014 | | Results for this | | | e | 1:38 PM | | procedure are in the | | | | PDT | | results section. | + +--------+ + + + | BASIC METABOLIC | Routin | 12/07/2014 | | Results for this | | PANEL | e | 1:38 PM | | procedure are in the | | | | PDT | | results section. | + +--------+ + + + documented in this encounter Results Type and Screen (12/07/2014 1:41 PM PDT) + + + + + + | Component | Value | Ref Range | Performed | Pathologist | | | | | At | Signature | + + + + + + | ABO Rh | A POSITIVE | | EXTERNAL | | | | | | LAB | | + + + + + + | ABO Rh | Testing performed at | | EXTERNAL | | | | [facility] | | LAB | | | | [address];[place] [address] | | | | + + + + + + | Antibody | NEGATIVE | | EXTERNAL | | | Screen | | | LAB | | + + + + + + | Antibody | Testing performed at | | EXTERNAL | | | Screen | [facility] | | LAB | | | | [address]vd;[place] [address] | | | | + + + [...] + +---------+ + + External Lab: CBC (12/07/2014 1:38 PM PDT) + + + + + + | Component | Value | Ref Range | Performed | Pathologist | | | | | At | Signature | + + + + + + | WBC | 11.54 (H)Comment: | 3.80 - 11.00 | EXTERNAL | | | | Testing performed at | K/uL | LAB | | | | [facility], [address] | | | | | | [place] | | | | | | [address] | | | | + + + + + + | Red Blood | 4.92Comment: Testing | 4.20 - 5.70 | EXTERNAL | | | Cells | performed at [facility], [address] | M/uL | LAB | | | Counted | [place], | | | | | | [place] [address] | | | | + + + + + + | Hemoglobin | 15.0Comment: Testing | 13.2 - 17.0 | EXTERNAL | | | | performed at [facility], [address] | g/dL | LAB | | | | [address], | | | | | | [place] [address] | | | | + + + + + + | Hematocrit, | 44.7Comment: Testing | 39.0 - 50.0 % | EXTERNAL | | | POC | performed at [facility], [address] | | LAB | | | | [address], | | | | | | [place] [address] | | | | + + + + + + | MCV | 90.9Comment: Testing | 80.0 - 100.0 fl | EXTERNAL | | | | performed at [facility], [address] | | LAB | | | | [address], | | | | | | [place] [address] | | | | + + + + + + | MCH | 30.4Comment: Testing | 27.0 - 34.0 pg | EXTERNAL | | | | performed at [facility], [address] | | LAB | | | | [address], | | | | | | [place] [address] | | | | + + + + + + | MCHC | 33.5Comment: Testing | 32.0 - 35.5 | EXTERNAL | | | | performed at [facility], [address] | g/dL | LAB | | | | [address], | | | | | | [place] [address] | | | | + + + + + + | RDW-CV | 47.7Comment: Testing | 37 - 53 fl | EXTERNAL | | | | performed at [facility], [address] | | LAB | | | | [address], | | | | | | [place] [address] | | | | + + + + + + | Platelet | 334Comment: Testing | 150 - 400 K/uL | EXTERNAL | | | Count | performed at [facility], [address] | | LAB | | | Plasma | [address], | | | | | | [place] [address] | | | | + + + + + + | MPV | 8.9Comment: Testing | fl | EXTERNAL | | | | performed at [facility], [address] | | LAB | | | | [address], | | | | | | [place] [address] | | | | + + + + + + | Differentia | AUTOMATEDComment: | | EXTERNAL | | | l Type | Testing performed at | | LAB | | | | [facility], [address] [facility] | | | | | | [place] | | | | | | [address] | | | | + + + + + + | % Segmented | 74.30Comment: Testing | % | EXTERNAL | | | | performed at [facility], [address] | | LAB | | | Neutrophils | [place], | | | | | | [place] [address] | | | | + + + + + + | % | 19.68Comment: Testing | % | EXTERNAL | | | Lymphocytes | performed at [facility], [address] | | LAB | | | | [address], | | | | | | [place] [address] | | | | + + + + + + | % Monocytes | 4.24Comment: Testing | % | EXTERNAL | | | | performed at [facility], [address] | | LAB | | | | [address], | | | | | | [place] [address] | | | | + + + + + + | % | 0.95Comment: Testing | % | EXTERNAL | | | Eosinophils | performed at [facility], [address] | | LAB | | | | [address], | | | | | | [place] [address] | | | | + + + + + + | % Basophils | 0.83Comment: Testing | % | EXTERNAL | | | | performed at [facility], [address] | | LAB | | | | [address], | | | | | | [place] [address] | | | | + + + + + + | Absolute | 8.58 (H)Comment: Testing | 1.90 - 7.40 | EXTERNAL | | | Segmented | performed at [facility], [address] | K/uL | LAB | | | Neutrophils | [address], | | | | | | [place] [address] | | | | + + + + + + | Absolute | 2.27Comment: Testing | 1.00 - 3.90 | EXTERNAL | | | Lymphocytes | performed at [facility], [address] | K/uL | LAB | | | | [address], | | | | | | [place] [address] | | | | + + + + + + | Absolute | 0.49Comment: Testing | 0.00 - 0.80 | EXTERNAL | | | Monocytes | performed at [facility], [address] | K/uL | LAB | | | | [address], | | | | | | [place] [address] | | | | + + + + + + | Absolute | 0.11Comment: Testing | 0.00 - 0.50 | EXTERNAL | | | Eosinophils | performed at [facility], [address] | K/uL | LAB | | | | [address], | | | | | | [place] [address] | | | | + + + + + + | Absolute | 0.10Comment: Testing | 0.00 - 0.10 | EXTERNAL | | | Basophils | performed at [facility], [address] | K/uL | LAB | | | | [place], | | | | | | [place] [address] | | | | + + + [...] + +---------+ + + Basic Metabolic Panel (12/07/2014 1:38 PM PDT) + + + + + + | Component | Value | Ref Range | Performed | Pathologist | | | | | At | Signature | + + + + + + | Na | 135Comment: Testing | 135 - 143 | EXTERNAL | | | | performed at [facility], [address] | mmol/L | LAB | | | | [place], | | | | | | [place] [address] | | | | + + + + + + | K | 4.5Comment: Testing | 3.5 - 4.9 | EXTERNAL | | | | performed at [facility], [address] | mmol/L | LAB | | | | [place], | | | | | | [place] [address] | | | | + + + + + + | Cl | 104Comment: Testing | 99 - 109 mmol/L | EXTERNAL | | | | performed at [facility], [address] | | LAB | | | | [address], | | | | | | [place] [address] | | | | + + + + + + | CO2 | 29Comment: Testing | 23 - 32 mmol/L | EXTERNAL | | | | performed at [facility], [address] | | LAB | | | | [address], | | | | | | [place] [address] | | | | + + + + + + | Anion Gap | 7Comment: Testing | 5 - 20 mmol/L | EXTERNAL | | | | performed at [facility], [address] | | LAB | | | | [address], | | | | | | [place] [address] | | | | + + + + + + | Glucose, | 110 (H)Comment: Testing | 65 - 99 mg/dL | EXTERNAL | | | Fasting | performed at [facility], [address] | | LAB | | | | [address], | | | | | | [place], [place] [address] | | | | + + + + + + | BUN | 16Comment: Testing | 8 - 25 mg/dL | EXTERNAL | | | | performed at [facility], [address] | | LAB | | | | [address], | | | | | | [place], [place] [address] | | | | + + + + + + | Creatinine | 0.86Comment: Testing | 0.70 - 1.30 | EXTERNAL | | | | performed at [facility], [address] | mg/dL | LAB | | | | [address], | | | | | | [place] [address] | | | | + + + + + + | BUN/Creatin | 19Comment: Testing | | EXTERNAL | | | ine Ratio | performed at [facility], [address] | | LAB | | | | [address], | | | | | | [place] [address] | | | | + + + + + + | Calcium | 9.4Comment: Testing | 8.5 - 10.5 | EXTERNAL | | | | performed at [facility], [address] | mg/dL | LAB | | | | [facility], | | | | | | [place] [address] | | | | + + + [...] | | | | | | at [facility], [address] | | | | | | [place], | | | | | | [place] [address] | | | | + + + [...]
--- OUTSIDE RECORDS SUMMARY | ~2020-01-31 | XMS | Encounter Summary ---
Demographics + + + | Address | [address] | | | [place] [address] | + + + | Home Phone | | + + + | Preferred Language | Unknown | + + + | Marital Status | | + + + | Gnosticist Affiliation | 1013 | + + + | Race | Unknown | + + + | Ethnic Group | Unknown | + + + Author + + + | Author | [facility] | | | and [place] | + + + | Organization | [facility] | | | and [place] [...] [place] | | | | | [address] | | + + + + + Care Team Providers + +------+ + | Care Distribution Transformer Assembler Name | Role | Phone | + +------+ + | Allison Fairchild NP | PCP | | + +------+ + Reason for Visit +--------+ + | Reason | Comments | +--------+ + | Other | pt status check | +--------+ + Encounter Details +--------+ + + + + | Date | Type | Department | Care Team | Description | +--------+ + + + + | 08/10/ | Telephone | [facility] | Hellen Avilez | Other (pt status | | 2019 | | INFECTIOUS DISEASE | L, RN | check) | | | | [address] | | | | | | [place] | | | | | | [address] | | | | | | [phone] | | | +--------+ + + + [...]
--- OUTSIDE RECORDS SUMMARY | ~2020-01-31 | XMS | Encounter Summary ---
Demographics + + + | Address | [address] | | | [place] [address] | + + + | Home Phone | | + + + | Preferred Language | Unknown | + + + | Marital Status | | + + + | Sikh Affiliation | 1013 | + + + | Race | Unknown | + + + | Ethnic Group | Unknown | + + + Author + + + | Author | [facility] | | | and [place] | + + + | Organization | [facility] | | | and [...] [place] | | | | | [address] | | + + + + + Care Team Providers + +------+ + | Care Feeder Tender Name | Role | Phone | + [...] Description | +--------+--------+ + + + | 04/03/ | Refill | [facility] | Adrian Aponte MD | Medication Refill | | 2016 | | GASTROENTEROLOGY | [address] | | | | | [address] [facility] | [place], [place] | | | | | [address] [place] | [address] | | | | | [address] | [phone] | | | | | [phone] | | | +--------+--------+ + + + [...]
--- OUTSIDE RECORDS SUMMARY | ~2020-01-31 | XMS | Encounter Summary ---
Demographics + + + | Address | [address] | | | [place] [address] | + + + | Home Phone | | + + + | Preferred Language | Unknown | + + + | Marital Status | | + + + | Orthodox Affiliation | 1013 | + + + | Race | Unknown | + + + | Ethnic Group | Unknown | + + + Author + + + | Author | [facility] | | | and [place] | + + + | Organization | [facility] | | | and [place] | + + + | Address | Unknown | + + + | Phone | Unavailable | + + + Support + + + + + | Name | Relationship | Address | Phone | + + + + + | Teodroa Cespedes | ECON | [address] | | | | | [place] | | | | | [address] | | + + + + + Care Team Providers + +------+ + | Care Cylinder Machine Operator Pulp Drier Name | Role | Phone | + +------+ + | Allison Fairchild NP | PCP | | + +------+ + Encounter Details +--------+ + + + + | Date | Type | Department | Care Team | Description | +--------+ + + + + | 10/23/ | Orders Only | [facility] | Adrian Aponte MD | Abdominal pain, | | 2016 | | GASTROENTEROLOGY | [address] | generalized; | | | | [address] | [place], [place] | Dysphagia | | | | [address] [place], [place] | [address] | | | | | [address] | [phone] | | | | | [phone] | | | +--------+ + + + [...] + | Diagnosis | + + | Abdominal pain, generalized | + + | Dysphagia Dysphagia, unspecified | + + documented in this encounter"
--- OUTSIDE RECORDS SUMMARY | ~2020-01-31 | XMS | Encounter Summary ---
Demographics + + + | Address | [address] | | | [place] [address] | + + + | Home Phone | | + + + | Preferred Language | Unknown | + + + | Marital Status | | + + + | Zoroastrianism Affiliation | 1013 | + + + | Race | Unknown | + + + | Ethnic Group | Unknown | + + + Author + + + | Author | [facility] | | | and Alexana | + + + | Organization | [facility] | | | and [...] [place] | | | | | [address] | | + + + + + Care Team Providers + +------+ + | Care Deputy [employer] Name | Role | Phone | + [...] | +--------+ + + + + | 09/06/ | Hospital | [facility] | Anival Stevenson MD | Infected prosthetic | | 2019 - | Encounter | [facility] [address] | [address] [place] | mesh of abdominal | | | | [address] | [address] [place], [place] | wall, initial | | 09/12/ | | [place], [place] | [address] | encounter (HCC) | | 2020 | | [address] | | (Primary Dx); | | | | [phone] | | Infected prosthetic | | | | | | mesh of abdominal | | | | | | wall, initial | | | | | | encounter (HCC); | | | | | | Infected prosthetic | | | | | | mesh of abdominal | | | | | | wall, subsequent | | | | | | encounter; | | | | | | 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 1960 Admit date: 09/06/2019 Discharge [...] bruising may occur. It appears as a ulhem-vhb-enhj area around the incision and indic ates [...] a rare development in elective surgery and ua lly responds quickly to antibiotics. The use of [...] suspect a problem. Our office number is [phone] documented in this encounter Medications at Time [...] tablets by | 30 | 0 | 08/08/20 | | | (ROXICODONE) 15 mg | [...] 1 diluted | 30 | 0 | 08/09/20 | | | glycol (MIRALAX) | packet by mouth | packet | | 19 | | | packet | Daily. | | | | | + + + +---------+ + + | potassium chloride | Take 1 tablet by | 30 | 0 | 08/09/20 | | | (KLOR-CON) 10 MEQ | [...] + documented as of this encounter Progress Notes Anival Stevenson MD - 09/12/2019 11:01 AM PST Service: General Surgery Progress Note Hospital Day: [...] Height: I/O last 3 completed shifts: In: 1859 [P.O.:1859] Out: 1809 [Urine:1750; Other:60] No intake/output data recorded. DATA [...] Pelayo MD - 09/11/2019 10:48 AM PST Service: General Surgery Progress Note Hospital Day: [...] thinners and anti platelets DC Lovenox Anival tSevenson MD 09/11/2019 10:48 AM Jenniffer Nevarez RN - 09/11/2019 8:34 AM PSTPt resting in bed and stable. at bedside.Electronica lly signed by Samaria Marshall RN at 09/11/2019 8:34 AM Samaria Nevarez RN - 01/2020 1:51 AM PSTEnd of shift chart checks complete. Roya Sal RN - 0 6:46 PM PSTEnd of shift chart check complete. Anival Pelayo MD - 09/10/2019 11:17 AM PS T Service: General Surgery Progress Note Hospital Day: [...] Groups: infusion therapy, home Community Agency Name: [facility] Other Resources: Discharge Transportation Transportation Needs: family or friend will provide Notes: Pt from home and was on IV ABX with [facility] home infusion. I called [facility] and Pt has c ompleted IV ABX, if Pt will need a continuation of IV ABX new prescriptions and orders will need to be written. Pt will discharge home once medically ready. CM will follow for any need s that arise. Electronically signed: Mo Ortiz RN 09/09/2019 3:19 PM April Elizondo MD - 09/09/2019 1:08 PM PSTForma tting of this note might be different [...] Pelayo MD - 09/09/2019 10:23 AM PST Service: General Surgery Progress Note Hospital Day: [...] s Caregiver: (P) spouse/significant other, homecare agency (specify)([facility] for h ome IVAB) Functional Status: ambulatory [...] NP Contact Information Family Contact Information: Name: Araiza (P) Phone: P) [phone] Pager: Fax: DC Needs Assessment Current Outpt/Agency/Support Groups: (P) infusion therapy, home Community Agency Name: ([facility] Anticipated Changes Related to Illness: (P) none [...] Steps: Notes: Patient discharged on 07/29/2019 with [facility] for home IVAB. CM to follow for [...] Pelayo MD - 09/08/2019 8:17 AM PST Service: General Surgery Progress Note Hospital Day: [...] Pelayo MD - 09/07/2019 12:46 PM PST Service: General Surgery Progress Note Hospital Day: [...] epidural Anival Stevenson MD 09/07/2019 12:46 PM Leeanne, Chio Streeter MD - 09/07/2019 10:28 AM PST ANESTHESIA [...] 128/82 Pulse: 88 [phone] 90 91 Resp: Temp: 36.5 C (97.7 F) 36.6 C (97.9 F) TempSrc: Axillary Oral SpO2: 99% 99% 99% 99% Weight: Height: Lyndsay Chavez RN - 09/06/2019 9:10 PM PSTPt very drowsy, responds but mumbles, is hard to understand. Dr. Feroz jain called, will come to bedside to assess pt. Pt bed placed in trendelenburg.Electronicall y signed by Lyndsay Quintero RN at 09/06/2019 9:18 PM PSTGriffpark, Aracelis Heath RN - 8:09 PM PSTAnesthesia at bedside with this [...] | | | | | | MDRD IDFL traceable | | | | | | equation.Testing | | | | | | performed at [facility], [address] | | | | | | [facility], | | | | | | [place] [address] | | | | + + + + + + + + | Specimen | + + | Blood | + + + + + + + | Performing | Address | City/State/Zipcode | Phone Number | | Organization | | | | + + + + + | [facility] | [address] | [place] [address] | [phone] | + + + + + CBC [...] [facility] | | | | performed at [facility], [address] | | LABORATORY | | | | [place], | | | | | | [place] [address] | | | | + + + + + + + + | Specimen | + + | Blood | + + + + + + + | Performing | Address | City/State/Zipcode | Phone Number | | Organization | | | | + + + + + | [facility] | [address] | [place] [address] | [phone] | + + + + + POC Glucose (09/10/2019 12:25 PM PST) + + + + + + | Component | Value | Ref Range | Performed | Pathologist | | | | | At | Signature | + + + + + + | Glucose, | 145 (H)Comment: Testing | 65 - 99 mg/dL | [facility] | | | POC | performed at [facility] | | LABORATORY | | | | [place], [place] | | | | | | [address] | | | | + + + + + + + + | Specimen | + + | | + + + + + + + | Performing | Address | City/State/Zipcode | Phone Number | | Organization | | | | + + + + + | [facility] | [address] [facility] | [place] [address] | [phone] | + + + + + CBC [...] MPV | 8.1Comment: Testing | fl | [facility] | | | | performed at [facility], [address] | | LABORATORY | | | | [place], | | | | | | [place] [address] | | | | + + + + + + + + | Specimen | + + | Blood | + + + + + + + | Performing | Address | City/State/Zipcode | Phone Number | | Organization | | | | + + + + + | [facility] | [address] | [place] [address] | [phone] | + + + + + Basic [...] | >60Comment: GFR <60: | >60 | [facility] | | | GFR | CHRONIC KIDNEY [...] | | | | | performed at [facility], [address] | | | | | | [facility], | | | | | | [place] [address] | | | | + + + + + + + + | Specimen | + + | Blood | + + + + + + + | Performing | Address | City/State/Zipcode | Phone Number | | Organization | | | | + + + + + | [facility] | [address] | [place] [address] | [phone] | + + + + + Basic [...] | | | | | performed at [facility], [address] | | | | | | [facility], | | | | | | [place] [address] | | | | + + + + + + + + | Specimen | + + | Blood | + + + + + + + | Performing | Address | City/State/Zipcode | Phone Number | | Organization | | | | + + + + + | [facility] | [address] | [place] [address] | [phone] | + + + + + CBC [...] [facility] | | | | performed at [facility], [address] | | LABORATORY | | | | [place], | | | | | | [place] [address] | | | | + + + + + + + + | Specimen | + + | Blood | + + + + + + + | Performing | Address | City/State/Zipcode | Phone Number | | Organization | | | | + + + + + | [facility] | [address] | [place] [address] | [phone] | + + + + + POC Glucose (09/06/2019 3:14 PM PST) + + + + + + | Component | Value | Ref Range | Performed | Pathologist | | | | | At | Signature | + + + + + + | Glucose, | 119 (H)Comment: Testing | 65 - 99 mg/dL | [facility] | | | POC | performed at [facility] [place];[address] | | LABORATORY | | | | [place], [place] | | | | | | [address] | | | | + + + + + + + + | Specimen | + + | | + + + + + + + | Performing | Address | City/State/Zipcode | Phone Number | | Organization | | | | + + + + + | [facility] | [address] | [place] [address] | [phone] | + + + + + Surgical [...] | fecal material and a brock-white exudate. Coating Line Worker sections are | | | submitted in [...] | | technical component was performed by [facility], [address] [place] [address] | | | [place] [address] (Bin Operator: Mckayla Andino MD; CLIA# | | | [id number]). Professional interpretation was performed [facility] | | | [facility], | | | [place] [address] (Bin Operator: Renaldo Love M.D.; CLIA#: | | | [id number]). Diagnostician: Arturo Foster | | | DOPathologistElectronically Signed 09/12/2019 | | | | | |PERFORMING LABORATORY: | | |The technical component was performed by [facility], [address] [place] [address] (Bin Operator: Mckayla Andino MD; CLIA# [id number]). Professional interpretation was performed by | | |[facility] [address] (Bin Operator: Renaldo Love M.D.; CLIA#: [id number]). | | | | | |Diagnostician: Arturo [...] | | | atelectasis. Signed by: Trevin Walker Shawn Sign | | | Date/Time: 09/06/2019 9:22 [...] mesh of abdominal wall, initial encounter (HCC) - Primary | + + | Infected prosthetic mesh of abdominal wall, subsequent encounter | + + | Enterocutaneous fistula Fistula of intestine, excluding rectum and anus | + + | Abdominal wall abscess Cellulitis and abscess of trunk | + + | Anxiety about health | + + | Infected prosthetic mesh of abdominal wall, sequela | + + documented in this encounter [...] | | | | | dose on 09/07/19 at 0900, | | AM PST | [...] | | | + +---+ + +---------+ +---+---------+---+ | bupivacaine (PF) (MARCAINE) | New Bag | 09/06/20 | | 6 mL/hr | | | 0.125 % in sodium chloride 0.9% | | 19 9:31 | | | | | 200 mL at 10 mL/hr, EPIDURAL, | | PM PST | | | | | CONTINUOUS, Starting Thu09/06/19 | | | | | | | at 2030, Post-op/Phase II, | | | | | | | Patient-controlled Bolus Dose | | | | | | | (mL): 0, Lockout Interval (min): | | | | | | | 60 | | | | | | + +---------+ +---+---------+---+ +---+---+ | | | +---+---+ + + + +---+ +---+ | bupivacaine (PF) (MARCAINE) | Rate/Dos | 09/08/ | | 10 mL/hr | | | 0.125 % in sodium chloride 0.9% | e | 20 7:24 | | | | | 200 mL at 10 mL/hr, EPIDURAL, | Verify-D | PM PST | | | | | CONTINUOUS, Starting Thu09/06/19 | ual Sign | | | | | | at 2215, Post-op/Phase II, | | | | | | | Patient-controlled Bolus Dose | | | | | | | (mL): 0, Lockout Interval (min): | | | | | | | 60 | | | | | | + + + +---+ +---+ + + +---+ +---+ | New Bag | 09/08/19 | | 10 mL/hr | | | | 20 4:16 | | | | | | PM PST | | | | + + +---+ +---+ | Restarted | 09/08/19 | | 10 mL/hr | | | | 20 11:12 | | | | | | AM PST | | | | + + +---+ +---+ +---+---+ | | | +---+---+ + +---------+ +-----+-------+---+ | cefOXitin (MEFOXIN) 2 g in | New Bag | 09/11/19 | 2 g | 100 | | | sodium chloride 0.9% 50 mL IVPB | | 20 5:08 | | mL/hr | | | 2 g, Intravenous, Administer over | | PM PST | | | | | 30 Minutes, EVERY 6 HOURS | | | | | | | INTERVAL, First dose on Thu | | | | | | | 09/06/19 at 2330, For 5 days, | | | | | | | Activate system and mix before | | | | | | | use., Post-op/Phase II, | | | | | | | Indications: Intra-Abdominal | | | | | | | Infection | | | | | | + +---------+ +-----+-------+---+ +---------+ +-----+-------+---+ | New Bag | 09/11/19 | 2 g | 100 | | | | 20 11:14 | | mL/hr | | | | AM PST | | | | +---------+ +-----+-------+---+ | New Bag | 09/11/19 | 2 g | 100 | | | | 20 5:18 | | mL/hr | | | | AM PST | | | | +---------+ +-----+-------+---+ +---+---+ | | | +---+---+ + +---------+ +---+-------+---+ | dextrose 5% and sodium chloride | New Bag | 09/09/19 | | 125 | | | 0.45% with KCl 20 mEq/L (D5 09/08 | | 20 2:21 | | mL/hr | | | NS + KCL 20) infusion at 125 | | AM PST | | | | | mL/hr, Intravenous, CONTINUOUS, | | | | | | | Starting 09/07/19 at 1315 | | | | | | + +---------+ +---+-------+---+ +---------+ +---+-------+---+ | New Bag | 09/08/19 | | 125 | | | | 20 5:22 | | mL/hr | | | | AM PST | | | | +---------+ +---+-------+---+ | New Bag | 09/07/19 | | 125 | | | | 20 9:08 | | mL/hr | | | | PM PST | | | | +---------+ +---+-------+---+ + +---+ | | | + +---+ | diphenhydrAMINE (BENADRYL) | | | injection 12.5 mg 12.5 mg, | | | Intravenous, EVERY 4 HOURS PRN, | | | Itching, Starting Thu09/06/19 at | | | 2230, For itching, use the | | | following sequence if meds are | | | ordered: Give nalbuphine first. | | | If maximum dose given or | | | ineffective, give | | | diphenhydramine, Post-op/Phase II | | + +---+ | | | + +---+ + +-------+ +-------+---+ + | enoxaparin (LOVENOX) 40 mg/0.4 | Given | 09/11/19 | 40 mg | | Abdomen- | | mL injection 40 mg 40 mg, | | 20 8:00 | | | LLQ | | Subcutaneous, EVERY 24 HOURS | | AM PST | | | | | (Daily), First dose on 09/10/19 | | | | | | | at 1200, Avoid abdominal skin | | | | | | | injections., | | | | | | + +-------+ +-------+---+ + +-------+ +-------+---+ + | Given | 09/10/19 | 40 mg | | Abdomen- | | | 20 11:48 | | | LLQ | | | AM PST | | | | +-------+ +-------+---+ + +---+---+ | | | +---+---+ + +-------+ +--------+---+---+ | fentaNYL (PF) injection 25-50 | Given | 09/06/20 | 50 mcg | | | | mcg 25-50 mcg, Intravenous, | | 19 7:00 | | | | | EVERY 5 MIN PRN, Pain, Initial | | PM PST | | | | | postop urgent pain or escalating | | | | | | | pain, Starting 09/06/19 at | | | | | | | 1815, For 4 doses, (2 doses | | | | | | | maximum for opioid naive, 4 doses | | | | | | | maximum for opioid tolerant) | | | | | | | First dose must be lowest dose. | | | | | | | Use Pasero Sedation Scale. | | | | | | | [Opioid tolerant = One week or | | | | | | | longer, yhlzae-usj-kykcl use of | | | | | | | at least the following DAILY | | | | | | | dose: 60mg oral morphine, 60mg | | | | | | | oral hydrocodone, 30mg oral | | | | | | | oxycodone, 8mg oral | | | | | | | hydromorphone, fentanyl patch | | | | | | | 25mcg/hr, or equivalent dose of | | | | | | | another opioid], Recovery/Phase I | | | | | | + +-------+ +--------+---+---+ +-------+ +--------+---+---+ | Given | 09/06/20 | 50 mcg | | | | | 19 6:51 | | | | | | PM PST | | | | +-------+ +--------+---+---+ +---+---+ | | | +---+---+ + +---------+ +--------+-------+---+ | fluconazole in saline | New Bag | 09/10/19 | 400 mg | 100 | | | (DIFLUCAN) IVPB 400 mg 400 mg, | | 20 9:28 | | mL/hr | | | Intravenous, Administer over 2 | | AM PST | | | | | Hours, EVERY 24 HOURS (Daily), | | | | | | | First dose on Thu09/07/19 at 0900, | | | | | | | Post-op/Phase II, Indications: | | | | | | | Intra-Abdominal Infection | | | | | | + +---------+ +--------+-------+---+ +---------+ +--------+-------+---+ | New Bag | 09/09/19 | 400 mg | 100 | | | | 20 9:07 | | mL/hr | | | | AM PST | | | | +---------+ +--------+-------+---+ | New Bag | 09/08/19 | 400 mg | 100 | | | | 20 10:46 | | mL/hr | | | | AM PST | | | | +---------+ +--------+-------+---+ +---+---+ | | | +---+---+ + +-------+ +--------+---+---+ | gabapentin (NEURONTIN) capsule | Given | 09/10/19 | 600 mg | | | | 600 mg 600 mg, Oral, 2 TIMES | | 20 10:25 | | | | | DAILY, First dose on Thu09/06/19 | | AM PST | | | | | at 2300, Post-op/Phase II | | | | | | + +-------+ +--------+---+---+ +-------+ +--------+---+---+ | Given | 09/09/19 | 600 mg | | | | | 20 8:54 | | | | | | PM PST | | | | +-------+ +--------+---+---+ | Given | 09/09/19 | 600 mg | | | | | 20 9:07 | | | | | | AM PST | | | | +-------+ +--------+---+---+ +---+---+ | | | +---+---+ + +-------+ +--------+---+---+ | gabapentin (NEURONTIN) capsule | Given | 09/12/19 | 600 mg | | | | 600 mg 600 mg, Oral, 2 TIMES | | 20 8:11 | | | | | DAILY, First dose (after last | | AM PST | | | | | modification) on Thu09/10/19 at | | | | | | [...] +---+---+ | | | +---+---+ + +-------+ +--------+---+ + | heparin 5,000 units/mL | Given | 09/09/19 | 5,000 | | Abdomen- | | injection 5,000 Units 5,000 | | 20 8:54 | Units | | LUQ | | Units, Subcutaneous, EVERY 8 | | PM PST | | | | | HOURS (3 times per day), First | | | | | | | dose on Thu09/07/19 at 1400 | | | | | | + +-------+ +--------+---+ + +-------+ +--------+---+ + | Given | 09/08/19 | 5,000 | | Abdomen- | | | 20 1:22 | Units | | LLQ | | | PM PST | | | | +-------+ +--------+---+ + | Given | 09/08/19 | 5,000 | | Abdomen- | | | 20 5:23 | Units | | LLQ | | | AM PST | | | | +-------+ +--------+---+ + +---+---+ | | | +---+---+ + +-------+ +--------+---+---+ | HYDROmorphone (DILAUDID) | Given | 09/06/20 | 0.5 mg | | | | injection 0.2-0.6 mg 0.2-0.6 mg, | | 19 7:22 | | | | | Intravenous, EVERY 5 MIN PRN, | | PM PST | | | | | Pain, Starting Thu09/06/19 at | | | | | | | 1815, First dose must be lowest | | | | | | | dose, can increase subsequent | | | | | | | doses by 0.2mg within dosing | | | | | | | range. If patient meets opioid | | | | | | | tolerant definition, can start | | | | | | | with 0.4mg dose. [Maximum total | | | | | | | PACU dose 4mg] Use Pasero | | | | | | | Sedation Scale. [Opioid tolerant | | | | | | | = One week or longer, | | | | | | | pykffy-wtc-ylyci use of at least | | | | | | | the following DAILY dose: 60mg | | | | | | | oral morphine, 60mg oral | | | | | | | hydrocodone, 30mg oral oxycodone, | | | | | | | 8mg oral hydromorphone, fentanyl | | | | | | | patch 25mcg/hr, or equivalent | | | | | | | dose of another opioid], | | | | | | | Recovery/Phase I | | | | | | + +-------+ +--------+---+---+ +-------+ +--------+---+---+ | Given | 09/06/20 | 0.5 mg | | | | | 19 7:15 | | | | | | PM PST | | | | +-------+ +--------+---+---+ | Given | 09/06/20 | 0.5 mg | | | | | 19 7:05 | | | | | | PM [...] +---+---+ + +-------+ +-------+---+---+ | ketorolac (TORADOL) injection | Given | 09/11/19 | 15 mg | | | | 15 mg 15 mg, Intravenous, EVERY | | 20 5:18 | | | | | 6 HOURS (4 times per day), First | | AM PST | | | | | dose on Thu09/08/19 at 1200, For 5 | | | | | | | days | | | | | | + +-------+ +-------+---+---+ +-------+ +-------+---+---+ | Given | 09/10/19 | 15 mg | | | | | 20 11:46 | | | | | | PM PST | | | | +-------+ +-------+---+---+ | Given | 09/10/19 | 15 mg | | | | | 20 5:29 | | | | | | PM [...] +-------+---+---+ +---+---+ | | | +---+---+ + +---------+ +---+-------+---+ | lactated ringers (LR) infusion | New Bag | 09/07/19 | | 150 | | | at 150 mL/hr, Intravenous, | | 20 8:33 | | mL/hr | | | CONTINUOUS, Starting 09/06/19 | | AM PST | | | | | at 2000, Post-op/Phase II | | | | | | + +---------+ +---+-------+---+ +---------+ +---------+-------+---+ | New Bag | 09/07/19 | | 150 | | | | 20 1:01 | | mL/hr | | | | AM PST | | | | +---------+ +---------+-------+---+ | New Bag | 09/06/20 | 150 mLs | 150 | | | | 19 8:54 | | mL/hr | | | | PM PST | | | | +---------+ +---------+-------+---+ +---+---+ | | | +---+---+ + +-------+ [...] | | +---+---+ + +-------+ +-------+---+---+ | metoclopramide (REGLAN) 5 mg/mL | Given | 09/06/20 | 10 mg | | | | injection 10 mg 10 mg, | | 19 7:38 | | | | | Intravenous, ONCE, 09/06/19 | | PM PST | | | | | at 1845, For 1 dose, Protect from | | | | | | | light., Recovery/Phase I | | | | | | + +-------+ +-------+---+---+ +---+---+ | | | +---+---+ + +-------+ +------+---+---+ | midazolam (VERSED) 1 mg/mL | Given | 09/06/20 | 2 mg | | | | injection 0.5-2 mg 0.5-2 mg, | | 19 7:27 | | | | | Intravenous, EVERY 5 MIN PRN, | | PM PST | | | | | Anxiety, or agitation, Starting | | | | | | | 09/06/19 at 1815, Maximum | | | | | | | total dose 2 mg., Recovery/Phase | | | | | | | I | | | | | | + +-------+ +------+---+---+ +---+---+ | | | +---+---+ + +-------+ +------+---+---+ | ondansetron (ZOFRAN) injection | Given | 09/06/20 | 4 mg | | | | 4 mg 4 mg, Intravenous, ONCE | | 19 7:25 | | | | | PRN, Nausea, Starting Tue | | PM PST | | | | | 09/06/19 at 1815, For 1 dose, | | | | | | | Recovery/Phase I | | | | | | + [...] | oxyCODONE (ROXICODONE) tablet | Given | 09/09/19 | 30 mg | | | | 30 mg 30 mg, Oral, EVERY 8 HOURS | | 20 8:55 | | | | | (3 times per day), First dose on | | PM PST | | | | | 09/07/19 at 1400 | | | | | | + +-------+ +-------+---+---+ +-------+ +-------+---+---+ | Given | 09/09/19 | 30 mg | | | | | 20 1:33 | | | | | | PM PST | | | | +-------+ +-------+---+---+ | Given | 09/09/19 | 30 mg | | | | | 20 5:35 | | | | | | AM PST | | | | +-------+ +-------+---+---+ +---+---+ | | | +---+---+ + +-------+ +-------+---+---+ | povidone-iodine 5 % external | Given | 09/06/20 | 4 mLs | | | | solution Topical, PRN, Other, | | 19 9:14 | | | | | pre-op, Starting 09/06/19 at | | AM PST | | | | | 0832, For 1 dose, Pre-op | | | | | | [...]
--- OUTSIDE RECORDS SUMMARY | ~2020-01-31 | XMS | Encounter Summary ---
Demographics + + + | Address | [address] | | | [place] [address] | + + + | Home Phone | | + + + | Preferred Language | Unknown | + + + | Marital Status | | + + + | Baptism Affiliation | 1013 | + + + | Race | Unknown | + + + | Ethnic Group | Unknown | + + + Author + + + | Author | [facility] | | | and [place] | + + + | Organization | [facility] | | | and [place] | + [...] [place] | | | | | [address] | | + + + + + Care Team Providers + +------+ + | Care Credit Risk Analyst Name | Role | Phone | + +------+ + | Allison Fairchild NP | PCP | | + +------+ + Encounter Details +--------+ + + + + | Date | Type | Department | Care Team | Description | +--------+ + + + + | 10/06/ | Orders Only | [facility] | Aracelis Castillo, | Chills without | | 2020 | | [address] | Division Order Technician | fever; Night sweats; | | | | [place], [place] | | Thrombocytosis | | | | [phone] | | ([facility]) | | | | [phone] | | | +--------+ + + + [...] + | CBC WITH | Routin | 10/06/2019 | Chills without | Results for this | | DIFFERENTIAL | e | 2:24 PM | fever Night sweats | procedure are in the | | | | PST | Thrombocytosis | results section. | | | | | (HCC) | | + +--------+ + + + | COMPREHENSIVE | Routin | 10/06/2019 | Chills without | Results for this | | METABOLIC PANEL | e | 2:24 PM | fever Night sweats | procedure are in the | | | | PST | Thrombocytosis | results section. | | | | | (HCC) | | + +--------+ + + + documented in this encounter Results CBC with Differential (10/06/2019 2:24 PM PST) + + + + + + | Component | Value | Ref Range | Performed | Pathologist | | | | | At | Signature | + + + + + + | WBC | 11.44 (H) | 3.80 - 11.00 | REFERENCE | | | | | K/uL | LAB | | | | | | [facility] | | | | | | [facility] | | + + + + + + | RBC | 3.74 (L) | 4.20 - 5.70 | REFERENCE | | | | | M/uL | LAB | | | | | | [facility] | | | | | | [facility] | | + + + + + + | Hemoglobin | 10.9 (L) | 13.2 - 17.0 | REFERENCE | | | | | g/dL | LAB | | | | | | [facility] | | | | | | [facility] | | + + + + + + | Hematocrit | 32.2 (L) | 39.0 - 50.0 % | REFERENCE | | | | | | LAB | | | | | | [facility] | | | | | | [facility] | | + + + + + + | MCV | 86.2 | 80.0 - 100.0 fl | REFERENCE | | | | | | LAB | | | | | | [facility] | | | | | | [facility] | | + + + + + + | MCH | 29.1 | 27.0 - 34.0 pg | REFERENCE | | | | | | LAB | | | | | | [facility] | | | | | | [facility] | | + + + + + + | MCHC | 33.8 | 32.0 - 35.5 | REFERENCE | | | | | g/dL | LAB | | | | | | [facility] | | | | | | [facility] | | + + + + + + | RDW-SD | 47.7 | 37 - 53 fl | REFERENCE | | | | | | LAB | | | | | | [facility] | | | | | | [facility] | | + + + + + + | Platelet | 612 (H) | 150 - 400 K/uL | REFERENCE | | | Count | | | LAB | | | | | | [facility] | | | | | | [facility] | | + + + + + + | MPV | 8.2 | fl | REFERENCE | | | | | | LAB | | | | | | [facility] | | | | | | [facility] | | + + + + + + | Diff Type | AUTOMATED | | REFERENCE | | | | | | LAB | | | | | | [facility] | | | | | | [facility] | | + + + + + + | % | 67.55 | % | REFERENCE | | | Neutrophils | | | LAB | | | | | | [facility] | | | | | | [facility] | | + + + + + + | % | 20.33 | % | REFERENCE | | | Lymphocytes | | | LAB | | | | | | [facility] | | | | | | [facility] | | + + + + + + | Monocyte % | 8.96 | % | REFERENCE | | | | | | LAB | | | | | | [facility] | | | | | | [facility] | | + + + + + + | Eosinophils | 2.36 | % | REFERENCE | | | % | | | LAB | | | | | | [facility] | | | | | | [facility] | | + + + + + + | Basophils % | 0.80 | % | REFERENCE | | | | | | LAB | | | | | | [facility] | | | | | | [facility] | | + + + + + + | Neutrophils | 7.73 (H) | 1.90 - 7.40 | REFERENCE | | | , Absolute | | K/uL | LAB | | | | | | [facility] | | | | | | [facility] | | + + + + + + | Absolute | 2.33 | 1.00 - 3.90 | REFERENCE | | | Lymphocytes | | K/uL | LAB | | | | | | [facility] | | | | | | [facility] | | + + + + + + | Absolute | 1.03 (H) | 0.00 - 0.80 | REFERENCE | | | Monocytes | | K/uL | LAB | | | | | | [facility] | | | | | | [facility] | | + + + + + + | Eosinophils | 0.27 | 0.00 - 0.50 | REFERENCE | | | , Absolute | | K/uL | LAB | | | | | | [facility] | | | | | | [facility] | | + + + + + + | Basophils, | 0.09Comment: Testing | 0.00 - 0.10 | REFERENCE | | | Absolute | performed at [facility];[address] | K/uL | LAB | | | | [place] | | [facility] | | | | [address];[place] [address] | | LABORATORY | | + + + + + + + + | Specimen | + + | Blood | + + + + + + + | Performing | Address | City/State/Zipcode | Phone Number | | Organization | | | | + + + + + | REFERENCE LAB | [address] | [place] | [phone] | | [facility] | [address] | [address] | | | LABORATORY | | | | + + + + + | REFERENCE LAB | [address] | [place] | | | [facility] | Bl[address] | [address] | | | LABORATORY | | | | + + + + + Comprehensive Metabolic Panel (10/06/2019 2:24 PM PST) + + + + + + | Component | Value | Ref Range | Performed | Pathologist | | | | | At | Signature | + + + + + + | Na | 137 | 135 - 145 | REFERENCE | | | | | mmol/L | LAB | | | | | | [facility] | | | | | | [facility]OR[facility] | | + + + + + + | K | 5.0 (H) | 3.5 - 4.9 | REFERENCE | | | | | mmol/L | LAB | | | | | | [facility] | | | | | | LABORATORY | | + + + + + + | Cl | 103 | 99 - 109 mmol/L | REFERENCE | | | | | | LAB | | | | | | [facility] | | | | | | LAB[facility] | | + + + + + + | CO2 | 25 | 23 - 32 mmol/L | REFERENCE | | | | | | LAB | | | | | | [facility] | | | | | | [facility] | | + + + + + + | Anion Gap | 14 | 5 - 20 mmol/L | REFERENCE | | | | | | LAB | | | | | | [facility] | | | | | | LABOR[facility] | | + + + + + + | Glucose | 93 | 65 - 99 mg/dL | REFERENCE | | | | | | LAB | | | | | | [facility] | | | | | | [facility] | | + + + + + + | BUN | 13 | 8 - 25 mg/dL | REFERENCE | | | | | | LAB | | | | | | [facility] | | | | | | [facility] | | + + + + + + | Creatinine | 0.8 | 0.70 - 1.30 | REFERENCE | | | | | mg/dL | LAB | | | | | | [facility] | | | | | | LABORAT[facility] | | + + + + + + | BUN/Creatin | 16 | | REFERENCE | | | ine Ratio | | | LAB | | | | | | [facility] | | | | | | LABORATORY | | + + + + + + | Calcium | 8.6 | 8.5 - 10.5 | REFERENCE | | | | | mg/dL | LAB | | | | | | [facility] | | | | | | LABOR[facility] | | + + + + + + | Protein, | 7.2 | 6.3 - 8.2 g/dL | REFERENCE | | | Total | | | LAB | | | | | | [facility] | | | | | | LABOR[facility] | | + + + + + + | Albumin | 3.1 (L) | 3.6 - 5.0 g/dL | REFERENCE | | | | | | LAB | | | | | | [facility] | | | | | | LAB[facility] | | + + + + + + | Globulin | 4.1 | 1.3 - 4.9 g/dL | REFERENCE | | | | | | LAB | | | | | | [facility] | | | | | | LAB[facility] | | + + + + + + | A/G Ratio | 0.8 (L) | 1.0 - 2.4 | REFERENCE | | | | | | LAB | | | | | | [facility] | | | | | | LABOR[facility] | | + + + + + + | BILIRUBIN, | 0.4 | 0.1 - 1.5 mg/dL | REFERENCE | | | TOTAL | | | LAB | | | | | | [facility] | | | | | | LAB[facility] | | + + + + + + | ALK PHOS | 107 | 35 - 115 U/L | REFERENCE | | | | | | LAB | | | | | | [facility] | | | | | | LABORATORY | | + + + + + + | AST | 14 | 10 - 45 U/L | REFERENCE | | | | | | LAB | | | | | | [facility] | | | | | | LABOR[facility] | | + + + + + + | ALT | 14 | 10 - 65 U/L | REFERENCE | | | | | | LAB | | | | | | [facility] | | | | | | LABORAT[facility] | | + + + + + + | Estimated | >60Comment: GFR <60: | >60 | REFERENCE | | | GFR | CHRONIC KIDNEY DISEASE, | mL/min/1.73m2 | LAB | | | | IF FOUND OVER A 3 MONTH | | [facility] | | | | PERIOD.GFR <15: KIDNEY | | LABORATORY | | | | FAILURE.FOR | | [...] | | | | | performed at [facility];[address] | | | | | | [place] | | | | | | [place] [address] | | | | | | | | | | + + + + + + + + | Specimen | + + | Blood | + + + + + + + | Performing | Address | City/State/Zipcode | Phone Number | | Organization | | | | + + + + + | REFERENCE LAB | [address] [place] [address] | [place], [place] | [phone] | | [facility] | Bl[address] | [address] | | | LABORATORY | | | | + + + + + | REFERENCE LAB | [address] [place] [address] | [place], [place] | | | [facility] | Blvd. | [address] | | | LABORATORY | | | | + + + + + documented in this encounter Visit Diagnoses + + | Diagnosis | + + | Chills without fever Chills (without fever) | + + | Night sweats Generalized hyperhidrosis | + + | Thrombocytosis (HCC) Essential thrombocythemia | + + documented in this encounter"
--- OUTSIDE RECORDS SUMMARY | ~2020-01-31 | XMS | Encounter Summary ---
Demographics + + + | Address | [address] | | | [place] [address] | + + + | Home Phone | | + + + | Preferred Language | Unknown | + + + | Marital Status | | + + + | Mormonism Affiliation | Unknown | + + + | Race | White | + + + | Ethnic Group | Not or | + + + Author + + + | Author | [facility] | + + + | Organization | [facility] | + + + | Address | Unknown | + + + | Phone | Unavailable | + + + Support + + +---------+ + | Name | Relationship | Address | Phone | + + +---------+ + | Maria Isabel Cespedes | ECON | Unknown | | + + +---------+ + Care Team Providers + +------+ + | Care Laborer Rags Name | Role | Phone | + +------+ + | Allison Fairchild NP | PCP | | + +------+ + Encounter Details +--------+--------+ + + + | Date | Type | Department | Care Team | Description | +--------+--------+ + + + | 01/30/ | Intake | Transfer Center | | N/A | | 2018 | | [address] | | | | | | [place], | | | | | | [place] [address] | | | +--------+--------+ + + + [...]
--- OUTSIDE RECORDS SUMMARY | ~2020-01-31 | XMS | Encounter Summary ---
Demographics + + + | Address | [address] | | | [place] [address] | + + + | Home Phone [...] + + | Author | [facility] | | | and [place] | + + + | Organization | [facility] | | | and [place] [...] [place] | | | | | [address] | | + + + + + Care Team Providers + +------+ + | Care Negative Notcher Name | Role | Phone | + +------+ + | Allison Fairchild NP | PCP | | + +------+ + Reason for Visit + + + | Reason | Comments | + + + | Patient Concerns | discharge instructions | + + + Encounter Details +--------+ + + + + | Date | Type | Department | Care Team | Description | +--------+ + + + + | 07/07/ | Telephone | [facility] | LillyRhianna, | Patient Concerns | | 2019 | | EVENT MARKETING MANAGER | Practicing Dermatologist | (discharge | | | | MANAGEMENT [address] | | instructions ) | | | | [facility] | | | | | [facility] [place] | | | | | | [address] | | | | | | [phone] | | | +--------+ + + + [...]
--- OUTSIDE RECORDS SUMMARY | ~2020-01-31 | XMS | Encounter Summary ---
Demographics + + + | Address | [address] | | | [place] [address] | + + + | Home Phone | | + + + | Preferred Language | Unknown | + + + | Marital Status | | + + + | Hoahaoism Affiliation | 1013 | + + + | Race | Unknown | + + + | Ethnic Group | Unknown | + + + Author + + + | Author | [facility] | | | and Alexana | + + + | Organization | [facility] | | | and [...] [place] | | | | | [address] | | + + + + + Care Team Providers + +------+ + | Care Exhibit Builder Name | Role | Phone | + [...] | | | | Diagnoses | | Fadi | | | | | Unspecified | | MD Adrian | | | | | abdominal | | [address] | | | | | pain Other | | [place], | | | | | dysphagia | | [place] [address] | | | | | Other | | Phone: | | | | | dysphagia | | [phone] | | | | | [R13.19]Unsp | | Fax: | | | | | ecified | | [phone] | | | | | abdominal | | | | | | | pain [R10.9] | | | +--------+--------+ + + + + Encounter Details +--------+ + + + + | Date | Type | Department | Care Team | Description | +--------+ + + + + | 10/23/ | Hospital | [facility] | Adrian Aponte MD | Abdominal pain, | | 2016 | Encounter | [facility] | [address] | generalized (Primary | | | | [address] | [place] | Dx); Dysphagia, | | | | [place], [place] | [address] | unspecified | | | | [address] | [phone] | dysphagia; Early | | | | [phone] | | satiety | +--------+ + + + + Social [...] + + + | Blood Pressure | 118/85 | 10/23/2015 8:45 AM | | | | | PST | | + + + + + | Pulse | 61 | 10/23/2015 8:45 AM | | | | | PST | | + + + + + | Temperature | 36 C (96.8 F) | 10/23/2015 8:17 AM | | | | | PST | | + + + + + | Respiratory Rate | 17 | 10/23/2015 8:45 AM | | | | | PST | | + + + + + | Oxygen Saturation | 94% | 10/23/2015 8:45 AM | | | | | PST | | + + + + + | Inhaled Oxygen | - | - | | | Concentration | | | | + + + + + | Weight | 95.7 kg (211 lb) | 10/23/2015 7:14 AM | | | | | PST | | + + + + + | Height | 180.3 cm (5' 11") | 10/23/2015 7:14 AM | | | | | PST | | + + + + + | Body Mass Index | 29.43 | 10/23/2015 7:14 AM | | | | | PST | | + + + + + documented in this encounter Discharge Instructions Instructions Adrian Aponte MD - 10/22/2015Patient Discharge Instructions after an Endosco py Procedure ? You may resume your regular diet after discharge. ? Do not drive, operate machinery, make critical decisions or do activities that require co ordination or balance for 24hrs. ? Resume normal medications unless otherwise instructed. ? If biopsies were taken, the physician s office will contact you within 7-10 days. ? If a colonoscopy was performed, then you may continue to expel large amounts of air from your rectum. Please call the physician who did your procedure at [phone] if you have any questions or experience any of the following: ? Increasing abdominal pain, nausea, or vomiting. ? Chills and fever over 101F. ? New abdominal swelling or bloating. ? Signs of rectal bleeding (black or red stool). If you cannot get a hold of your physician, then call the [facility] [phone] . If necessary, report to the Emergency Department at [facility]. Quit smoking: If you smoke or have smoked within the last year, quitting is the most import ant thing you can do to protect and improve your health. documented in this encounter Medications at Time [...] capsule by | 90 | 3 | 09/28/19 | | | (PRILOSEC) 20 mg | mouth every morning | capsule | | 16 | 7 | | capsule | (before [...] documented as of this encounter Progress Notes Abi Jameson RN - 10/23/2015 8:49 AM PSTAwake and alert, vss, taking po fluids well, taking po fluids, no nausea, passing flatus, up amb with stable gait and balance. Electronically signed by: Abi Jameson RN 10/23/2015 8:50 documented in this encounter Plan of Treatment Not on filedocumented as of this encounter Procedures + +--------+ + + + | Procedure Name | Priori | Date/Time | Associated Diagnosis | Comments | | | ty | | | | + +--------+ + + + | EGD | | 10/23/2015 | Unspecified | | | | | 7:55 AM | abdominal pain | | | | | PST | Other dysphagia | | + +--------+ + + + | EGD | Routin | 10/23/2015 | | Results for this | | | e | 7:35 AM | | procedure are in the | | | | PST | | results section. | + +--------+ + + + | SURGICAL PATHOLOGY | Routin | 10/23/2015 | | Results for this | | EXAM | e | 12:00 AM | | procedure are in the | | | | PST | | results section. | + +--------+ + + + documented in this encounter Results EGD (10/23/2015 7:35 AM PST) + + | Specimen | + + | | + + + + -+ | Narrative | Performed At | + + -+ | | [facility] | | GastroenterologyPatient Name: Reza CespedesProaugustin Date: 10/23/2015 | [facility] | | 7:35 AMMRN: [id number] #: [id number] of : | | | 1960Admit Type: AmbulatoryAge: 54[facility]: [facility]Gender: MaleNote | | | Status: FinalizedAttending MD: Adrian Aponte, [facility]cedure: | | | Upper GI endoscopyIndications: Epigastric abdominal pain, | | | DysphagiaProviders: Adrian Aponte MD, [facility], | | | RN, Bailey Borrego, TechnicianReferring MD: | | | Allison Fairchild NP (Referring MD)Medicines: | | | Monitored Anesthesia CareComplications: No immediate | | | complications.Procedure: Pre-Anesthesia Assessment: - | | | Prior to the procedure, a History and Physical was performed, and | | | patient medications and allergies were reviewed. The patient is | | | competent. The risks and benefits of the procedure and the | | | sedation options and risks were discussed with the patient. All | | | questions were answered and informed consent was obtained. | | | Patient identification and proposed procedure were verified by | | | the physician, the nurse, the anesthesiologist and the | | | plant technician/control room operator in the pre-procedure area in the endoscopy suite. | | | Mental Status Examination: alert and oriented. Airway | | | Examination: normal oropharyngeal airway and neck mobility. | | | Respiratory Examination: clear to auscultation. CV Examination: | | | normal. Prophylactic Antibiotics: The patient does not require | | | prophylactic antibiotics. Prior Anticoagulants: The patient | | | has taken no previous anticoagulant or antiplatelet agents. ASA | | | Grade Assessment: III - A patient with severe systemic | | | disease. After reviewing the risks and benefits, the patient | | | was deemed in satisfactory condition to undergo the procedure. The | | | anesthesia plan was to use monitored anesthesia care (MAC). | | | Immediately prior to administration of medications, the patient | | | was re-assessed for adequacy to receive sedatives. The heart | | | rate, respiratory rate, oxygen saturations, blood pressure, | | | adequacy of pulmonary ventilation, and response to care were | | | monitored throughout the procedure. The physical status of the | | | patient was re-assessed after the procedure. After obtaining | | | informed consent, the endoscope was passed under direct vision. | | | Throughout the procedure, the patient's blood pressure, pulse, | | | and oxygen saturations were monitored continuously. The endoscope was | | | introduced through the mouth, and advanced to the third part | | | of duodenum. The upper GI endoscopy was accomplished without | | | difficulty. The patient tolerated the procedure well.Findings: | | | The examined esophagus was normal. Biopsies were taken with a | | | cold forceps for histology. Verification of patient | | | identification for the specimen was done by the physician and | | | nurse using the patient's name and date. Estimated blood | | | loss was minimal. The Z-line was regular and was found 39 cm | | | from the incisors. Diffuse mildly erythematous mucosa without | | | bleeding was found in the entire examined stomach. Biopsies | | | were taken with a cold forceps for histology. Verification of | | | patient identification for the specimen was done by the | | | physician and nurse using the patient's name and date. | | | Estimated blood loss was minimal. No other significant | | | abnormalities were identified in a careful examination of the | | | stomach. The cardia and gastric fundus were normal on | | | retroflexion. The duodenal bulb, 2nd part of the duodenum and | | | 3rd part of the duodenum were normal.Impression: - Normal | | | esophagus. Biopsied. - Z-line regular, 39 cm from the incisors. | | | - Erythematous mucosa in the stomach. Biopsied. - Normal | | | duodenal bulb, 2nd part of the duodenum and 3rd part of the | | | duodenum.Recommendation: - Patient has a contact number | | | available for emergencies. The signs and symptoms of potential | | | delayed complications were discussed with the patient. Return | | | to normal activities tomorrow. Written discharge instructions | | | were provided to the patient. - Regular diet. - Discharge | | | patient to home. - Follow an antireflux regimen indefinitely. | | | - Use Prilosec (omeprazole) 20 mg PO daily indefinitely. - | | | Await pathology results. - Return to GI clinic PRN. - The | | | findings and recommendations were discussed with the patient.Adrian | | | Jackson Aponte MD10/23/2015 8:14 AMNumber of Addenda: 0Note Initiated On: | | | 10/23/2015 7:35 AMScope Withdrawal Time: 0 hours 5 minutes 29 seconds | | | Total Procedure Duration: 0 hours 7 minutes 1 second Scope In: 8:02:57 | | | AMScope Out: 8:09:58 AM [facility], [address] | | [place] [address] | | | patient. Return to normal activities tomorrow. Written discharge | | | instructions were provided to the patient. | | | - Regular diet. | | | - Discharge patient to home. | | | - Follow an antireflux regimen indefinitely. | | | - Use Prilosec (omeprazole) 20 mg PO daily indefinitely. | | | - Await pathology results. | | | - Return to GI clinic PRN. | | | - The findings and recommendations were discussed with the patient. | | |Adrian Aponte MD | | |10/23/2015 8:14 AM | | |Number of Addenda: 0 | | |Note Initiated On: 10/23/2015 7:35 AM | | |Scope Withdrawal Time: 0 hours 5 minutes 29 seconds | | |Total Procedure Duration: 0 hours 7 minutes 1 second | | |Scope In: 8:02:57 AM | | |Scope Out: 8:09:58 AM | | | [facility], [address] [place], [place] | | | [address] | | + + -+ + +---------+ + + | Performing | Address | City/State/Zipcode | Phone Number | | Organization | | | | + +---------+ + + | [facility] | | | | + +---------+ + + Surgical Pathology Exam (10/23/2015 12:00 AM PST) + + | Specimen | + + | | + + + + + | Narrative | Performed At | + + + | SPECIMEN(S): A GASTRIC BIOPSY SPECIMEN(S): B DISTAL ESOPHAGEAL | [facility] | | BIOPSY SPECIMEN(S): C MID ESOPHAGEAL BIOPSY SPECIMEN SOURCE: A. | INCYTE | | GASTRIC BIOPSY B. DISTAL ESOPHAGEAL BIOPSY C. MID ESOPHAGEAL BIOPSY | | | CLINICAL HISTORY: R10.9 (unspecified abdominal pain), R13.19 | | | (other dysphagia) MICROSCOPIC DESCRIPTION: Histologic sections of | | | all submitted blocks are examined by light microscopy. These | | | findings, together with the gross examination, support the pathologic | | | diagnosis. FINAL PATHOLOGIC DIAGNOSIS: A. Stomach biopsy: - | | | Fragments of benign gastric mucosa with mild chronic inflammation. | | | - Negative for acute gastritis. - Negative for Helicobacter | | | pylori organisms. - Negative for intestinal metaplasia. - | | | Negative for dysplasia. B. Esophagus, distal, biopsy: - | | | Esophageal squamous mucosa, negative for reflux esophagitis. - | | | Negative for intestinal metaplasia (Cordova's esophagus). - | | | Negative for dysplasia. C. Esophagus, mid, biopsy: - | | | Esophageal squamous mucosa, negative for reflux esophagitis. - | | | Negative for intestinal metaplasia (Cordova's esophagus). - | | | Negative for dysplasia. [facility]:C2NR GROSS DESCRIPTION: | | | Received in three parts. A. Received in formalin labeled "Reza | | | Kalal" and "gastric biopsy" on the requisition are five pink-brock | | | tissue fragments measuring from 0.1-0.5 cm, submitted, all in (A1). | | | B. Received in formalin labeled "Reza Kalal" and "distal esophagus | | | biopsy" on the requisition are three santillan-brock tissue fragments | | | measuring from 0.4-0.8 cm, all in (B1). C. Received in formalin | | | labeled "Reza Kalal" and "mid esophagus biopsy" on the requisition | | | are three santillan-brock tissue fragments measuring from 0.2-0.4 cm , | | | submitted, all in (C1). PERFORMING LABORATORY: Tissue processing | | | and slide preparation were performed by [facility], [address] | | [address], [place] [address] (Gate Watchman: Alex | | | Trevin Hathaway CLIA#: [id number]). Professional interpretation was | | | performed by [facility], [facility], | | | [address], [place] [address] (Gate Watchman: | | | Natan Carson M.D.; CLIA#: [id number]). Diagnostician: | | | Natan Carson MD Pathologist Electronically Signed 10/24/2015 | | | | | + + [...] | + + | Abdominal pain, generalized - Primary | + + | Dysphagia, unspecified dysphagia | + + | Early satiety | + + documented in this encounter Administered Medications + +---------+ +--------+-------+--------+ | Medication Order | MAR | Action | Dose | Rate | Site | | | Action | Date | | | | + +---------+ +--------+-------+--------+ | lactated ringers (LR) infusion | New Bag | 10/23/19 | 1,000 | 100 | Right | | at 100 mL/hr, Intravenous, | | 16 7:43 | mLs | mL/hr | Arm | | CONTINUOUS, Starting 10/23/15 | | AM PST | | | | | at 0745, Pre-op | | | | | | + +---------+ +--------+-------+--------+ +---+---+ | | | +---+---+ documented in this encounter
--- OUTSIDE RECORDS SUMMARY | ~2020-01-31 | XMS | Encounter Summary ---
Demographics + + + | Address | [address] | | | [place] [address] | + + + | Home Phone | | + + + | Preferred Language | Unknown | + + + | Marital Status | | + + + | Temple Affiliation | 1013 | + + + | Race | Unknown | + + + | Ethnic Group | Unknown | + + + Author + + + | Author | [facility] | | | and [place] | + + + | Organization | [facility] | | | and [...] [place] | | | | | [id number] | | + + + + + Care Team Providers + +------+ + | Care Contact Center Specialist Name | Role | Phone | + +------+ + | Allison Fairchild NP | PCP | | + +------+ + Reason for Visit + + + | Reason | Comments | + + + | Hospital Follow-up | Intra-Abdominal Abcess | + + + Encounter Details +--------+---------+ + + + | Date | Type | Department | Care Team | Description | +--------+---------+ + + + | 08/24/ | Office | [facility] | Austin Etienne, | Infected | | 2019 | Visit | INFECTIOUS DISEASE | Juan Chanel MD | hernioplasty mesh, | | | | [address] | [address] | subsequent encounter | | | | [place], [place] | [place] [address] | (Primary Dx); | | | | [id number] | [phone] | Polymicrobial | | | | [phone] | | bacterial infection; | | | | | | Allergy to | | | | | | penicillin; Long | | | | | | term (current) use | | | | | | of antibiotics | +--------+---------+ + + + Social History [...] + + + | Blood Pressure | 140/99 | 08/24/2019 9:33 AM | | | | | PST | | + + + + + | Pulse | 87 | 08/24/2019 9:33 AM | | | | | PST | | + + + + + | Temperature | 36.8 C (98.2 F) | 08/24/2019 9:33 AM | | | | | PST | | + + + + + | Respiratory Rate | 18 | 08/24/2019 9:33 AM | | | | | PST | | + + + + + | Oxygen Saturation | 100% | 08/24/2019 9:33 AM | | | | | PST | | + + + + + | Inhaled Oxygen | - | - | | | Concentration | | | | + + + + + | Weight | 96.2 kg (212 lb) | 08/24/2019 9:33 AM | | | | | PST | | + + + + + | Height | 180.3 cm (5' 11") | 08/24/2019 9:33 AM | | | | | PST | | + + + + + | Body Mass Index | 29.57 | 08/24/2019 9:33 AM | | | | | PST | | + + + + + documented in this encounter Progress Notes Juan Washington MD - 08/24/2019 10:[address] [facility] Service: Infectious Diseases Outpatient Follow Up Note CHIEF COMPLAINT Follow up on infected hernioplasty mesh HISTORY OF PRESENT ILLNESS The patient is a 58 y.o.-year-old male presenting today for follow up. History obtained from chart review and the patient. This is my first time taking care of this patient. The patient has a complex abdominal rigo gical history. The patient was seen in the hospital and the month of July due to abdomi nal wall infection. The patient was seen by Dr. Dunlap at that time. The patient has a h istory of previous infectious disease provider, Dr. Rd Busby in the past. The patient has also history of hepatitis C infection which was apparently treated back in 2015, remote his tory of C. difficile infection, and also osteomyelitis in the past. The patient presented to the hospital with complaints of abdominal pain. He also had abdom inal wound. He described purulent drainage, chills, vomiting. Patient had a CT of the abdo men that showed a fluid collection with rim enhancement and multiple foci of air along the m esh and repair of the anterior abdominal wall. The fluid collection measured 11.6 x 2.5 x 5 .6 cm and there was no evidence of intraperitoneal extension. The patient was diagnosed wit h abdominal wall abscess secondary to infected hernioplasty mesh. The patient had a drain p laced in the abscess. The patient's cultures showed E. coli as well as mixed anaerobic phyllis a. Previous cultures from the month of June had shown also E. coli as well as Streptococ cus species, and Prevotella oralis. The patient was therefore recommended treatment with intravenous ertapenem. The patient was discharged from the hospital. The patient states that he has been recoveri ng well. His abdominal wound has healed very well. He has noticed less and less drainage f rom the percutaneous drain. He has noticed also that when he flushes to drain some of the s nancy ports out around the drain insertion site. He has been afebrile. Laboratory results showed a reduction in the CRP level, no evidence of leukocytosis, good k idney function. The patient is scheduled to and antibiotic therapy on September 02, 2019. Patient tells me he has an appointment with general surgery today. PAST MEDICAL HISTORY Patient Active Problem List Diagnosis Dysphagia Abdominal pain, generalized Epigastric pain Early satiety Nausea Biliary stent obstruction Acute pain of right shoulder Anxiety about health Closed compression fracture of L4 lumbar vertebra, sequela DDD (degenerative disc disease), lumbar History of tobacco use History of traumatic brain injury HNP (herniated nucleus pulposus), lumbar HTN (hypertension), benign Lumbar radicular pain Neck pain Renal artery stenosis S/P shoulder surgery Abdominal wall abscess Infected prosthetic mesh of abdominal wall Infected prosthetic mesh of abdominal wall, initial encounter PAST SURGICAL HISTORY Past Surgical History: Procedure Laterality Date CHOLECYSTECTOMY COLONOSCOPY 2014 ERCP Left 01/22/2018 Procedure: ERCP; Surgeon: Dc Naik MD; Location: [facility] ERCP N/A 02/12/2018 Procedure: ERCP; Surgeon: Dc Naik MD; Location: [facility] FRACTURE SURGERY 2011 skull/facial HARDWARE REMOVAL Right Hardware placement and removal thumb HERNIA REPAIR pt has 2 hernia repairs and 3rd revision on 12-18-14 hip screw removed Right 2013 Nasal reconstruction 1977 right hip/pelvis surgery 2012 SLAP 2011 UPPER GASTROINTESTINAL ENDOSCOPY UPPER GASTROINTESTINAL ENDOSCOPY N/A 10/23/2015 Procedure: EGD; Surgeon: Adrian Aponte MD; Location: [facility] UPPER GASTROINTESTINAL ENDOSCOPY N/A 11/18/2017 Procedure: EGD; Surgeon: Adrian Aponte MD; Location: [facility] XR LUMBAR SPINE COMPLETE SOCIAL HISTORY Social History Socioeconomic History Marital status: Spouse name: Not on file Number of children: Not on file Years of education: Not on file Highest education level: Not on file Occupational History Comment: Disabled Social Needs Financial resource strain: Not on file Food insecurity: Worry: Not on file Inability: Not on file Transportation needs: Medical: Not on file Non-medical: Not on file Tobacco Use Smoking status: Former Smoker Packs/day: 1.00 Years: 25.00 Pack years: 25.00 Types: Cigarettes Last attempt to quit: 07/04/2018 Years since quittin.1 Smokeless tobacco: Never Used Substance and Sexual Activity Alcohol use: No Alcohol/week: 0.0 standard drinks Drug use: No Types: Marijuana, Cocaine Comment: in the past 30 years ago Sexual activity: Not on file Lifestyle Physical activity: Days per week: Not on file Minutes per session: Not on file Stress: Not on file Relationships Social connections: Talks on phone: Not on file Gets together: Not on file Attends baptism service: Not on file Active member of club or organization: Not on file Attends meetings of clubs or organizations: Not on file Relationship status: Not on file Intimate partner violence: Fear of current or ex partner: Not on file Emotionally abused: Not on file Physically abused: Not on file Forced sexual activity: Not on file Other Topics Concern Not on file Social History Narrative Not on file FAM. HISTORY Family History Adopted: Yes MEDICATIONS: Reviewed with the patient today. Patient did not bring medication list or bottles to clinic today. Current Outpatient Medications: amLODIPine (NORVASC) 10 MG tablet, Take 10 mg by mouth Daily., Disp: , Rfl: Apixaban (ELIQUIS PO), Take 5 mg by mouth 2 times daily., Disp: , Rfl: [START ON 09/03/2019] ciprofloxacin (CIPRO) 500 mg tablet, Take 1 tablet by mouth 2 ti mes daily for 14 days., Disp: 28 tablet, Rfl: 0 clopidogrel (PLAVIX) 75 mg tablet, Take 1 tablet by mouth Daily., Disp: 30 tablet, Rfl : 11 diclofenac (VOLTAREN) 1% GEL, Apply 4 g topically 4 times daily., Disp: 1 Tube, Rfl: 0 docusate sodium (COLACE) 100 MG capsule, Take 100 mg by mouth Twice daily as needed f or Constipation., Disp: 30 capsule, Rfl: 0 ertapenem (INVanz) 1 g in sodium chloride 0.9% 50 mL IVPB, Inject 1 g into the vein ev adrianna 24 hours for 28 days. Indications: Acute Abdominal Condition, Infection Within the Abdom en, Disp: 28 each, Rfl: 0 gabapentin (NEURONTIN) 300 mg capsule, Take 600 mg by mouth 2 times daily., Disp: , Rf l: LORazepam (ATIVAN) 2 MG tablet, Take 2 mg by mouth every 6 hours as needed for Anxiety ., Disp: , Rfl: magnesium oxide (MAG-OX) 400 mg tablet, Take 800 mg by mouth. Two to three times daily as needed for leg cramps, Disp: , Rfl: melatonin 10 mg SL tablet, Place 10 mg under the tongue nightly as needed for Insomnia ., Disp: , Rfl: methocarbamol (ROBAXIN) 500 mg tablet, Take 1,000 mg by mouth 4 times daily as needed for Muscle spasms., Disp: , Rfl: [START ON 09/03/2019] metroNIDAZOLE (FLAGYL) 500 MG tablet, Take 1 tablet by mouth 3 t imes daily for 14 days., Disp: 42 tablet, Rfl: 0 Multiple Vitamins-Minerals (CENTRUM SILVER PO), Take 1 tablet by mouth Daily., Disp: , Rfl: Nutritional Supplements (BOOST) LIQD, Take 8 oz by mouth Daily as needed (for lack of appetite)., Disp: , Rfl: omeprazole (PRILOSEC) 20 mg capsule, Take 1 capsule by mouth every morning (before michelle akfast)., Disp: 90 capsule, Rfl: 3 ondansetron (ZOFRAN ODT) 4 mg disintegrating tablet, Take 4 mg by mouth every 8 hours as needed for Nausea., Disp: , Rfl: oxyCODONE (ROXICODONE) 15 mg immediate release tablet, Take 1-2 tablets by mouth every 6 hours as needed for Pain. Maximum daily dose: 16 tablets, Disp: 30 tablet, Rfl: 0 polyethylene glycol (MIRALAX) packet, Take 1 diluted packet by mouth Daily. (Patient t aking differently: Take 17 g by mouth Daily as needed.), Disp: 30 packet, Rfl: 0 potassium chloride (KLOR-CON) 10 MEQ ER tablet, Take 1 tablet by mouth Daily., Disp: 3 0 tablet, Rfl: 0 QUEtiapine (SEROQUEL) 50 MG tablet, Take 1 tablet by mouth 2 times daily., Disp: 60 ta blet, Rfl: 0 tamsulosin (FLOMAX) 0.4 mg CAPS, Take 0.8 mg by mouth Daily., Disp: , Rfl: VENTOLIN HFA 108 (90 Base) MCG/ACT inhaler, , Disp: , Rfl: Allergies Allergen Reactions Haloperidol Other (See Comments) Throat Swelled Stiff Neck neck muscle stiffness Neck stiffness neck muscle stiffness Throat Swelled Stiff Neck Neck stiffness neck muscle stiffness Throat Swelled Stiff Neck Neck stiffness neck muscle stiffness Throat Swelled Stiff Neck Throat Swelled Stiff Neck neck muscle stiffness Neck stiffness neck muscle stiffness Throat Swelled Stiff Neck Neck stiffness neck muscle stiffness Throat Swelled Stiff Neck Penicillins Anaphylaxis and Other (See Comments) Reaction unknown (as a child) Other reaction(s): Patient Does Not Remember Reaction unknown (as a child) Reaction unknown (as a child) Reaction unknown (as a child) TOLERATED CEFOXITIN Adhesive & Tape Other (See Comments) Causes welts Causes welts if left in place for long Causes welts Causes welts if left in place for long Causes welts Causes welts if left in place for long Causes welts Causes welts if left in place for long Causes welts Causes welts Causes welts if left in place for long Causes welts Causes welts if left in place for long Causes welts Sucralfate Other (See Comments) and Nausea And Vomiting Made him not feel right Made him not feel right REVIEW OF SYSTEMS 12+ systems reviewed. Negative except as per HPI. PHYSICAL EXAM Vital Signs: BP (!) 140/99 | Pulse 87 | Temp 36.8 C (98.2 F) (Tympanic) | Resp 18 | Ht 1.803 m ( 5' 11") | Wt 96.2 kg (212 lb) | SpO2 100% | BMI 29.57 kg/m General Appearance: Alert, cooperative, no distress. Head: Normocephalic, without obvious abnormality, atraumatic. Lips, mucosa, and tongue normal; dentition normal; no thrush present. Eyes: PERRL, conjunctiva/corneas clear, EOM's intact. Throat: Oropharynx without exudates. Neck: Supple, symmetrical, trachea midline, no adenopathy; thyroid: no enlargement/tenderness/nodules; no carotid bruit or JVD Back: Symmetric, no curvature, ROM normal, no CVA tenderness Lungs: Clear to auscultation bilaterally, respirations unlabored Chest Wall: No tenderness or deformity Heart: Regular rate. No murmurs. Abdomen: Soft, flat, nondistended, midline scarring, there is percutaneous drain in place , there is no abdominal swelling/bulging/fluctuation, there is serous fluid in the drain col lecting bag. bowel sounds active all four quadrants, no masses, no organomegaly Extremities: Extremities normal, atraumatic, no cyanosis or edema Pulses: 2+ and symmetric all extremities Skin: Skin color, texture, turgor normal, no rashes or lesions Lymph nodes: Cervical, supraclavicular, and axillary nodes normal Neurologic: Alert, oriented, no focal deficits. Venous access: Venous access: PICC. REVIEW OF LABS: All labs were reviewed. Results for orders placed or performed during the hospital encounter of 07/29/19 Flu Swab Collection Result Value Ref Range Collection SPECIMEN RECEIVED IN LAB Influenza A and B RNA, NAAT Result Value Ref Range Influenza A NEGATIVE NEG Influenza B NEGATIVE NEG Culture, Blood Result Value Ref Range Special Requests LAC Special Requests Testing performed at [facility];[address] [place] [address];[place] [address] RESULT NO GROWTH 6 DAYS RESULT Testing performed at [facility], [address] [place] [id number] Culture, Blood Result Value Ref Range Special Requests LEFT AC Special Requests Testing performed at [facility];[address] [place] [address];[place] [address] RESULT NO GROWTH 6 DAYS RESULT Testing performed at [facility], [address] [place] [id number] Culture, Blood Result Value Ref Range Special Requests RIGHT HAND Special Requests Testing performed at [facility];[address] [place] [address];[place] [address] RESULT NO GROWTH 6 DAYS RESULT Testing performed at [facility], [address] [place] [address] Culture, Urine Result Value Ref Range RESULT NO GROWTH RESULT Testing performed at [facility], [address] [place] [address] MRSA NAAT Result Value Ref Range SOURCE: NARES(NOSE) Result NEGATIVE MRSNEG Culture, Body Fluid Sterile Result Value Ref Range Gram Stain Result 4+ WBC'S SEEN Gram Stain Result 1+ GRAM POSITIVE COCCI Gram Stain Result 3+ GRAM NEGATIVE RODS RESULT 2+ ESCHERICHIA COLI (A) RESULT 2+ MIXED GRAM POSITIVE DEEPA RESULT 2+ MIXED ANAEROBIC DEEPA RESULT Testing performed at [facility], [address] [place] [id number] Susceptibility Escherichia coli - ANDREW Ampicillin SUSCEPTIBLE Sensitive Ampicillin + Sulbactam SUSCEPTIBLE Sensitive Cefepime SUSCEPTIBLE Sensitive Cefoxitin SUSCEPTIBLE Sensitive Ceftazidime SUSCEPTIBLE Sensitive Ceftriaxone SUSCEPTIBLE Sensitive Ciprofloxacin SUSCEPTIBLE Sensitive Gentamicin SUSCEPTIBLE Sensitive Levofloxacin SUSCEPTIBLE Sensitive Tobramycin SUSCEPTIBLE Sensitive Trimethoprim + Sulfamethoxazole* SUSCEPTIBLE Sensitive * Testing performed at [facility], [address] [place] [id number] CBC with Differential Result Value Ref Range WBC 9.19 3.80 - 11.00 K/uL RBC 3.85 (L) 4.20 - 5.70 M/uL Hemoglobin 11.3 (L) 13.2 - 17.0 g/dL Hematocrit 33.4 (L) 39.0 - 50.0 % MCV 86.8 80.0 - 100.0 fl MCH 29.3 27.0 - 34.0 pg MCHC 33.7 32.0 - 35.5 g/dL RDW-SD 49.9 37 - 53 fl Platelet Count 470 (H) 150 - 400 K/uL MPV 7.7 fl Diff Type AUTOMATED % Neutrophils 65.89 % % Lymphocytes 20.34 % Monocyte % 11.66 % Eosinophils % 1.23 % Basophils % 0.88 % Neutrophils, Absolute 6.06 1.90 - 7.40 K/uL Absolute Lymphocytes 1.87 1.00 - 3.90 K/uL Absolute Monocytes 1.07 (H) 0.00 - 0.80 K/uL Eosinophils, Absolute 0.11 0.00 - 0.50 K/uL Basophils, Absolute 0.08 0.00 - 0.10 K/uL Comprehensive Metabolic Panel Result Value Ref Range Na 141 135 - 145 mmol/L K 3.6 3.5 - 4.9 mmol/L Cl 108 99 - 109 mmol/L CO2 27 23 - 32 mmol/L Anion Gap 10 5 - 20 mmol/L Glucose 94 65 - 99 mg/dL BUN 15 8 - 25 mg/dL Creatinine 0.73 0.70 - 1.30 mg/dL BUN/Creatinine Ratio 21 Calcium 9.1 8.5 - 10.5 mg/dL Protein, Total 6.8 6.3 - 8.2 g/dL Albumin 4.2 3.6 - 5.0 g/dL Globulin 2.6 1.3 - 4.9 g/dL A/G Ratio 1.6 1.0 - 2.4 BILIRUBIN, TOTAL 0.3 0.1 - 1.5 mg/dL ALK PHOS 94 35 - 115 U/L AST 12 10 - 45 U/L ALT <7 (L) 10 - 65 U/L Estimated GFR >60 >60 mL/min/1.73m2 Lipase Result Value Ref Range Lipase 26 12 - 53 U/L Urinalysis With Microscopic Result Value Ref Range Color, UA STRAW Clarity, UA CLEAR Specific [place], Urine 1.029 1.002 - 1.030 Leukocyte esterase, UA NEGATIVE NEG Nitrite, UA NEGATIVE NEG Urobilinogen, Ur NORMAL <1.6 mg/dL Protein, Urine (mg/dL) NEGATIVE NEG mg/dL pH, Urine 6.0 5.0 - 8.0 Blood, UA NEGATIVE NEG Ketones, UA NEGATIVE NEG mg/dL Bilirubin, UA NEGATIVE NEG Glucose, Ur NEGATIVE NEG mg/dL WBC UA 0-2 0 - 5 /hpf RBC UA 0-2 0 - 2 /hpf SQUAMOUS EPITHELIAL UA NONE SEEN /lpf BACTERIA UA NONE SEEN NONE C-Reactive Protein Result Value Ref Range CRP 8.1 (H) <0.5 mg/dL Lactic Acid Result Value Ref Range Lactate, Serum 1.3 0.4 - 2.0 mmol/L Lactic Acid Result Value Ref Range Lactate, Serum 1.1 0.4 - 2.0 mmol/L Comprehensive Metabolic Panel Result Value Ref Range Na 139 135 - 145 mmol/L K 4.3 3.5 - 4.9 mmol/L Cl 111 (H) 99 - 109 mmol/L CO2 24 23 - 32 mmol/L Anion Gap 8 5 - 20 mmol/L Glucose 88 65 - 99 mg/dL BUN 14 8 - 25 mg/dL Creatinine 0.8 0.70 - 1.30 mg/dL BUN/Creatinine Ratio 18 Calcium 8.4 (L) 8.5 - 10.5 mg/dL Protein, Total 6.8 6.3 - 8.2 g/dL Albumin 2.7 (L) 3.6 - 5.0 g/dL Globulin 4.1 1.3 - 4.9 g/dL A/G Ratio 0.7 (L) 1.0 - 2.4 BILIRUBIN, TOTAL 0.3 0.1 - 1.5 mg/dL ALK PHOS 87 35 - 115 U/L AST 15 10 - 45 U/L ALT 10 10 - 65 U/L Estimated GFR >60 >60 mL/min/1.73m2 Protime INR Result Value Ref Range INR 1.1 PTT Result Value Ref Range PTT 20 (L) 23 - 32 seconds CBC with Differential Result Value Ref Range WBC 10.78 3.80 - 11.00 K/uL RBC 3.44 (L) 4.20 - 5.70 M/uL Hemoglobin 10.1 (L) 13.2 - 17.0 g/dL Hematocrit 29.5 (L) 39.0 - 50.0 % MCV 85.6 80.0 - 100.0 fl MCH 29.3 27.0 - 34.0 pg MCHC 34.2 32.0 - 35.5 g/dL RDW-SD 48.1 37 - 53 fl Platelet Count 393 150 - 400 K/uL MPV 7.3 fl Diff Type AUTOMATED % Neutrophils 68.24 % % Lymphocytes 19.87 % Monocyte % 9.37 % Eosinophils % 1.66 % Basophils % 0.86 % Neutrophils, Absolute 7.36 1.90 - 7.40 K/uL Absolute Lymphocytes 2.14 1.00 - 3.90 K/uL Absolute Monocytes 1.01 (H) 0.00 - 0.80 K/uL Eosinophils, Absolute 0.18 0.00 - 0.50 K/uL Basophils, Absolute 0.09 0.00 - 0.10 K/uL CBC with Differential Result Value Ref Range WBC 8.41 3.80 - 11.00 K/uL RBC 3.51 (L) 4.20 - 5.70 M/uL Hemoglobin 10.5 (L) 13.2 - 17.0 g/dL Hematocrit 30.7 (L) 39.0 - 50.0 % MCV 87.5 80.0 - 100.0 fl MCH 29.8 27.0 - 34.0 pg MCHC 34.0 32.0 - 35.5 g/dL RDW-SD 50.3 37 - 53 fl Platelet Count 385 150 - 400 K/uL MPV 7.7 fl Diff Type AUTOMATED % Neutrophils 70.21 % % Lymphocytes 17.09 % Monocyte % 10.50 % Eosinophils % 1.42 % Basophils % 0.78 % Neutrophils, Absolute 5.90 1.90 - 7.40 K/uL Absolute Lymphocytes 1.44 1.00 - 3.90 K/uL Absolute Monocytes 0.88 (H) 0.00 - 0.80 K/uL Eosinophils, Absolute 0.12 0.00 - 0.50 K/uL Basophils, Absolute 0.07 0.00 - 0.10 K/uL Basic Metabolic Panel Result Value Ref Range Na 139 135 - 145 mmol/L K 3.7 3.5 - 4.9 mmol/L Cl 108 99 - 109 mmol/L CO2 24 23 - 32 mmol/L Anion Gap 11 5 - 20 mmol/L Glucose 105 (H) 65 - 99 mg/dL BUN 14 8 - 25 mg/dL Creatinine 0.7 0.70 - 1.30 mg/dL BUN/Creatinine Ratio 20 Calcium 8.5 8.5 - 10.5 mg/dL Estimated GFR >60 >60 mL/min/1.73m2 CBC with Differential Result Value Ref Range WBC 10.41 3.80 [...] Metabolic Panel Result Value Ref Range Na 138 135 [...] Range Phosphorus 3.3 2.3 - 4.8 mg/dL CBC with Differential Result Value Ref Range [...] 65 U/L Estimated GFR >60 >60 mL/min/1.73m2 *Note: Due to a large number of results and/or encounters for the requested time period, so me results have not been displayed. A complete set of results can be found in Results Review . No results displayed because visit has over 200 results. CrCl cannot be calculated (Patient's most recent lab result is older than the maximum 3 day s allowed.). MICROBIOLOGY Microbiology Results (Last 14 Days by Collected Date with Culture/Sensitivity) No results found for the last 336 hours. IMAGING No new images for review today. ASSESSMENT AND RECOMMENDATIONS The patient is a 58 y.o.-year-old male with the following problems: Visit Diagnoses and Associated Orders: Reza was seen today for hospital follow-up. 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 - metroNIDAZOLE (FLAGYL) 500 MG tablet; Take 1 tablet by mouth 3 times daily for 14 day s. 1. Infected hernioplasty mesh 2. Polymicrobial bacterial infection including E. Coli and anaerobes 3. Personal history of penicillin allergy 4. Long-term use of antibiotics The patient presents with mixed bacterial infection including gram-negative, anaerobes, wit h out any evidence of fistulous communication on his initial CT with contrast on July. It is possible this infection represents a previous contamination of the mesh due t o his complex surgical history or that it is a result of a contaminated wound in his abdomen . In any case, the patient has had good response to intravenous antibiotic therapy and perc utaneous drain placement. Due to his infected hernioplasty mesh, explantation of the mesh w ill be required if there are no contraindications from the surgical standpoint. The patient will have an appointment with general surgery today. From the infectious standpoint, he will continue with intravenous antibiotic therapy throug h September 02, 2019 and after that his PICC line will be removed and he will transition to o ral ciprofloxacin and metronidazole for suppression of the infection until he has heard from general surgery regarding future plans. The patient will also need evaluation by facility specialist to undergo penicillin allergy t heathering. He states that he was told that he was allergic to penicillin in his childhood. He does not know about his reaction or truly what happened at that time. Evaluation for penic illin allergy will help us simplify his antibiotic regimen. He will obtain a referral for a llergy specialist from his primary care provider. Side effects of medications, duration of therapy, prognosis and importance of adherence wer e discussed with the patient today. Follow up in 3 weeks. 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
--- OUTSIDE RECORDS SUMMARY | ~2020-01-31 | XMS | Encounter Summary ---
Demographics + + + | Address | [address] | | | [place] [address] | + + + | Home Phone | | + + + | Preferred Language | Unknown | + + + | Marital Status | | + + + | Oriental Orthodox Affiliation | 1013 | + + + | Race | Unknown | + + + | Ethnic Group | Unknown | + + + Author + + + | Author | [facility] | | | and [place] | + + + | Organization | [facility] | | [...] [place] | | | | | [address] | | + + + + + Care Team Providers + +------+ + | Care Spring Assembler Supervisor Name | Role | Phone | [...] Description | +--------+--------+ + + + | 12/29/ | Refill | [facility] | Adrian Aponte MD | Medication Refill | | 2016 | | GASTROENTEROLOGY | [address] | | | | | [address] [facility] | [place], [place] | | | | | [address] [place] | [address] | | | | | [address] | [phone] | | | | | [phone] | | | +--------+--------+ + + + [...]
--- OUTSIDE RECORDS SUMMARY | ~2020-01-31 | XMS | Encounter Summary ---
Demographics + + + | Address | [address] | | | [place] [address] | + + + | Home Phone | | + + + | Preferred Language | Unknown | + + + | Marital Status | | + + + | Gnosticist Affiliation | 1013 | + + + | Race | Unknown | + + + | Ethnic Group | Unknown | + + + Author + + + | Author | [facility] | | | and [place] | + + + | Organization | [facility] | | | and [place] [...] [place] | | | | | [address] | | + + + + + Care Team Providers + +------+ + | Care Auto Transmission Technician Name | Role | Phone | + +------+ + | Allison Fairchild NP | PCP | | + +------+ + Encounter Details +--------+ + + + + | Date | Type | Department | Care Team | Description | +--------+ + + + + | 03/03/ | Emergency | [facility] | Kerrie Lyons, | Chronic bilateral | | 2016 - | | [facility] | DO [address] | low back pain | | | | EMERGENCY [facility]ENTER | [place] [address] | without sciatica; | | 03/04/ | | [address] | [phone] | Lower abdominal pain | | 2016 | | [place], [place] | | | | | | [address] | | | | | | [phone] | | | +--------+ + + + [...] + + + | Blood Pressure | 116/82 | 03/04/2016 3:31 AM | | | | | PDT | | + + + + + | Pulse | 82 | 03/04/2016 3:31 AM | | | | | PDT | | + + + + + | Temperature | 36.7 C (98.1 F) | 03/04/2016 3:31 AM | | | | | PDT | | + + + + + | Respiratory Rate | 16 | 03/04/2016 3:31 AM | | | | | PDT | | + + + + + | Oxygen Saturation | - | - | | + + + + + | Inhaled Oxygen | - | - | | | Concentration | | | | + + + + + | Weight | 95.3 kg (210 lb 1.6 | 03/04/2016 3:31 AM | | | | oz) | PDT | | + + + + + | Height | - | - | | + + + + + | Body Mass Index | 29.3 | 02/26/2016 1:21 PM | | | | | PDT [...] + +--------+ + + + | CT LUMBAR SPINE WO | Routin | 03/04/2016 | | Results for this | | CONTRAST | e | 2:20 AM | | procedure are in the | | | | PDT | | results section. | + +--------+ + + + | CT ABDOMEN PELVIS W | Routin | 03/04/2016 | | Results for this | | CONTRAST | e | 2:09 AM | | procedure are in the | | | | PDT | | results section. | + +--------+ + + + | LACTIC ACID | Routin | 03/04/2016 | | Results for this | | | e | 12:16 AM | | procedure are in the | | | | PDT | | results section. | + +--------+ + + + | EXTERNAL LAB: CBC | Routin | 03/04/2016 | | Results for this | | | e | 12:15 AM | | procedure are in the | | | | PDT | | results section. | + +--------+ + + + | SEDIMENTATION RATE, | Routin | 03/04/2016 | | Results for this | | AUTOMATED | e | 12:15 AM | | procedure are in the | | | | PDT | | results section. | + +--------+ + + + | C-REACTIVE PROTEIN | Routin | 03/04/2016 | | Results for this | | | e | 12:15 AM | | procedure are in the | | | | PDT | | results section. | + +--------+ + + + | COMPREHENSIVE | Routin | 03/04/2016 | | Results for this | | METABOLIC PANEL | e | 12:15 AM | | procedure are in the | | | | PDT | | results section. | + +--------+ + + + documented in this encounter Results CT Lumbar Spine wo Contrast (03/04/2016 2:20 AM PDT) + + | Specimen | + + | | + + + + + | Impressions | Performed At | + + + | 1. No acute lumbar spine abnormality seen. 2. Minimal multilevel | | | degenerative disk disease and degenerative joint disease. 3. | | | Borderline bilateral foraminal stenosis at L5-S1. [facility] | | | Electronically signed by Brennen Thomas MD on Mar 04 2016 2:46AM | | | Referring Provider Line: [phone] ID: [id number] | | + + + + + + | Narrative | Performed At | + + + | EXAM: CT LUMBAR SPINE WITHOUT CONTRAST EXAM DATE: 03/04/2016 | | | 01:41 AM. CLINICAL HISTORY: Back injury. COMPARISONS: None. | | | TECHNIQUE: Thin-section axial images were acquired of the lumbar | | | spine without contrast. Post-processing: Coronal and sagittal | | | reformats. Other: None. In accordance with CT protocol | | | optimization, one or more of the following dose reduction techniques | | | were utilized for this exam: automated exposure control, adjustment of | | | mA and/or KV based on patient size, or use of iterative | | | reconstructive technique. FINDINGS: Alignment: Unremarkable. | | | Bones: Five yqf-hdi-njynseu lumbar vertebral bodies are present. | | | Osteopenia. No fracture seen in the lumbar spine. Old fractures and | | | postoperative changes in the right hemipelvis. Disk Levels/Facets: | | | T12-L1: Minimal degenerative disk disease and degenerative joint | | | disease. L1-L2: Minimal degenerative disk disease and degenerative | | | joint disease. L2-L3: Minimal degenerative disk disease and | | | degenerative joint disease. L3-L4: Minimal degenerative disk | | | disease and degenerative joint disease. L4-L5: Minimal | | | degenerative disk disease and degenerative joint disease. L5-S1: | | | Mild broad-based annular bulge. Mild bilateral facet joint | | | hypertrophy. Borderline foraminal stenosis bilaterally. Other: The | | | visualized pelvic cavity is unremarkable. | | + + + + + | Procedure Note | + + | Luis Long Conversion - 04/21/2019 6:45 PM PDT EXAM:CT LUMBAR SPINE WITHOUT CONTRAST | | EXAM DATE: 03/04/2016 01:41 AM. CLINICAL HISTORY: Back injury. COMPARISONS: None. | | TECHNIQUE: Thin-section axial images were acquired of the lumbar spine without contrast. | | Post-processing: Coronal and sagittal reformats. Other: None. In accordance with CT | | protocol optimization, one or more of the following dose reduction techniques were | | utilized for this exam: automated exposure control, adjustment of mA and/or KV based on | | patient size, or use of iterative reconstructive technique. FINDINGS:Alignment: | | Unremarkable. Bones: Five ybe-wyh-hysbcuh lumbar vertebral bodies are present. | | Osteopenia. No fracture seen in the lumbar spine. Old fractures and postoperative | | changes in the right hemipelvis. Disk Levels/Facets:T12-L1: Minimal degenerative disk | | disease and degenerative joint disease. L1-L2: Minimal degenerative disk disease and | | degenerative joint disease. L2-L3: Minimal degenerative disk disease and degenerative | | joint disease. L3-L4: Minimal degenerative disk disease and degenerative joint disease. | | L4-L5: Minimal degenerative disk disease and degenerative joint disease. L5-S1: Mild | | broad-based annular bulge. Mild bilateral facet joint hypertrophy. Borderline foraminal | | stenosis bilaterally. Other: The visualized pelvic cavity is unremarkable. IMPRESSION: | | 1. No acute lumbar spine abnormality seen.2. Minimal multilevel degenerative disk | | disease and degenerative joint disease.3. Borderline bilateral foraminal stenosis at | | L5-S1. [facility] Electronically signed by Brennen Thomas MD on Mar 04 2016 2:46AM Referring | | Provider Line: [phone] ID: [id number] | | | |L1-L2: Minimal degenerative disk disease and degenerative joint disease. | | | |L2-L3: Minimal degenerative disk disease and degenerative joint disease. | | | |L3-L4: Minimal degenerative disk disease and degenerative joint disease. | | | |L4-L5: Minimal degenerative disk disease and degenerative joint disease. | | | |L5-S1: Mild broad-based annular bulge. Mild bilateral facet joint hypertrophy. Borderline f oraminal stenosis bilaterally. | | | |Other: The visualized pelvic cavity is unremarkable. | | | |IMPRESSION: | | | |1. No acute lumbar spine abnormality seen. | |2. Minimal multilevel degenerative disk disease and degenerative joint disease. | |3. Borderline bilateral foraminal stenosis at L5-S1. | | | |[facility] | | | | Electronically signed by Brennen Thomas MD on Mar 04 2016 2:46AM Referring Provider Line: [phone] ID: [id number] | + + CT Abdomen Pelvis w Contrast (03/04/2016 2:09 AM PDT) + + | Specimen | + + | | + + + + + | Impressions | Performed At | + + + | 1. Ventral hernia repair. Inferior to the mesh there is a ventral | | | hernia containing loops of small bowel, without obvious obstruction | | | or incarceration. 2. Status post cholecystectomy with common duct | | | stent in place. Very mild intrahepatic ductal dilatation. 3. Appendix | | | appears normal. 4. Colonic diverticula. No definite diverticulitis. | | | [facility] Electronically signed by Brennen Thomas MD on Mar 04 2016 | | | 2:30AM Referring Provider Line: [phone] ID: [id number] | | + + + + + + | Narrative | Performed At | + + + | EXAM: CT ABDOMEN AND PELVIS EXAM DATE: 03/04/2016 01:41 AM. | | | CLINICAL HISTORY: Abdominal pain. COMPARISONS: 07/12/2014. | | | TECHNIQUE: Routine helical CT imaging was performed through the | | | abdomen and pelvis. IV contrast: Non-ionic. Enteric contrast: No. | | | Reconstructions: Coronal and sagittal. In accordance with CT | | | protocol optimization, one or more of the following dose reduction | | | techniques were utilized for this exam: automated exposure control, | | | adjustment of mA and/or KV based on patient size, or use of iterative | | | reconstructive technique. FINDINGS: Lung Bases: Mild bibasilar | | | atelectasis. Liver: Possible fatty infiltration. | | | Gallbladder/Bile Ducts: Gallbladder is surgically absent. Common duct | | | stent remains in place. Very mild intrahepatic biliary dilatation. | | | Spleen: Normal. Pancreas: Normal. Adrenal Glands: Normal. | | | Kidneys: Normal. No masses or hydronephrosis. Peritoneal | | | Cavity/Bowel: Ventral hernia repair. Inferior to the repair there is a | | | ventral hernia containing loops of small bowel. No obvious | | | obstruction or incarceration is seen. There are some colonic | | | diverticula but no diverticulitis is identified. No free air or free | | | fluid is seen. No lymphadenopathy is identified. Bilateral inguinal | | | hernias containing fat. Appendix appears normal. Pelvic Organs: | | | Normal. The bladder and visualized pelvic organs are within normal | | | limits. Vasculature: Mild atherosclerosis. No aortic aneurysm. | | | Bones: Old fractures and postoperative changes in the right | | | hemipelvis. Other: None. | | + + + + + | Procedure Note | + + | Ethan, Rad Conversion - 04/21/2019 6:45 PM PDT EXAM:CT ABDOMEN AND PELVIS EXAM DATE: | | 03/04/2016 01:41 AM. CLINICAL HISTORY: Abdominal pain. COMPARISONS: 07/12/2014. | | TECHNIQUE: Routine helical CT imaging was performed through the abdomen and pelvis. IV | | contrast: Non-ionic. Enteric contrast: No. Reconstructions: Coronal and sagittal. In | | accordance with CT protocol optimization, one or more of the following dose reduction | | techniques were utilized for this exam: automated exposure control, adjustment of mA | | and/or KV based on patient size, or use of iterative reconstructive technique. | | FINDINGS:Lung Bases: Mild bibasilar atelectasis. Liver: Possible fatty infiltration. | | Gallbladder/Bile Ducts: Gallbladder is surgically absent. Common duct stent remains in | | place. Very mild intrahepatic biliary dilatation. Spleen: Normal. Pancreas: Normal. | | Adrenal Glands: Normal. Kidneys: Normal. No masses or hydronephrosis. Peritoneal | | Cavity/Bowel: Ventral hernia repair. Inferior to the repair there is a ventral hernia | | containing loops of small bowel. No obvious obstruction or incarceration is seen. There | | are some colonic diverticula but no diverticulitis is identified. No free air or free | | fluid is seen. No lymphadenopathy is identified. Bilateral inguinal hernias containing | | fat. Appendix appears normal. Pelvic Organs: Normal. The bladder and visualized pelvic | | organs are within normal limits. Vasculature: Mild atherosclerosis. No aortic aneurysm. | | Bones: Old fractures and postoperative changes in the right hemipelvis. Other: None. | | IMPRESSION: 1. Ventral hernia repair. Inferior to the mesh there is a ventral hernia | | containing loops of small bowel, without obvious obstruction or incarceration.2. Status | | post cholecystectomy with common duct stent in place. Very mild intrahepatic ductal | | dilatation.3. Appendix appears normal.4. Colonic diverticula. No definite | | diverticulitis. [facility] Electronically signed by Brennen Thomas MD on Mar 04 2016 2:30AM | | Referring Provider Line: [phone] ID: [id number] | |Adrenal Glands: Normal. | | | |Kidneys: Normal. No masses or hydronephrosis. | | | |Peritoneal Cavity/Bowel: Ventral hernia repair. Inferior to the repair there is a ventral h ernia containing loops of small bowel. No obvious obstruction or incarceration is seen. Ther e are some colonic diverticula | |but no diverticulitis is identified. No | |free air or free fluid is seen. No lymphadenopathy is identified. Bilateral inguinal hernia s containing fat. Appendix appears normal. | | | |Pelvic Organs: Normal. The bladder and visualized pelvic organs are within normal limits. | | | |Vasculature: Mild atherosclerosis. No aortic aneurysm. | | | |Bones: Old fractures and postoperative changes in the right hemipelvis. | | | |Other: None. | | | |IMPRESSION: | | | |1. Ventral hernia repair. Inferior to the mesh there is a ventral hernia containing loops o f small bowel, without obvious obstruction or incarceration. | |2. Status post cholecystectomy with common duct stent in place. Very mild intrahepatic duct al dilatation. | |3. Appendix appears normal. | |4. Colonic diverticula. No definite diverticulitis. | | | |[facility] | | | | Electronically signed by Brennen Thomas MD on Mar 04 2016 2:30AM Referring Provider Line: [phone] ID: [id number] | + + Lactic Acid (03/04/2016 12:16 AM PDT) + + + + + + | Component | Value | Ref Range | Performed | Pathologist | | | | | At | Signature | + + + + + + | Lactate | 1.0Comment: Testing | 0.4 - 2.0 | EXTERNAL | | | | performed at [facility];[address] | mmol/L | LAB | | | | [address];[place] | | | | | | [address] | | | | + + + + + + + + | Specimen | + + | Blood specimen | | (specimen) | + + + +---------+ + + | Performing | Address | City/State/Zipcode | Phone Number | | Organization | | | | + +---------+ + + | EXTERNAL LAB | | | | + +---------+ + + Sedimentation rate, automated (03/04/2016 12:15 AM PDT) + + + + + + | Component | Value | Ref Range | Performed | Pathologist | | | | | At | Signature | + + + + + + | Sed Rate | 49 (H)Comment: Testing | 0 - 20 mm/Hr | EXTERNAL | | | | performed at [facility];[address] | | LAB | | | | [address];[place], [place] | | | | | | [address] | | | | + + + [...] + +---------+ + + External Lab: CBC (03/04/2016 12:15 AM PDT) + + + + + + | Component | Value | Ref Range | Performed | Pathologist | | | | | At | Signature | + + + + + + | WBC | 10.89Comment: Testing | 3.80 - 11.00 | EXTERNAL | | | | performed at [facility];[address] | K/uL | LAB | | | | [address];[place] | | | | | | [address] | | | | + + + + + + | Red Blood | 5.01Comment: Testing | 4.20 - 5.70 | EXTERNAL | | | Cells | performed at [facility];[address] | M/uL | LAB | | | Counted | [address];[place] | | | | | | [address] | | | | + + + + + + | Hemoglobin | 15.5Comment: Testing | 13.2 - 17.0 | EXTERNAL | | | | performed at [facility];[address] | g/dL | LAB | | | | [address];[place] | | | | | | [address] | | | | + + + + + + | Hematocrit, | 46.2Comment: Testing | 39.0 - 50.0 % | EXTERNAL | | | POC | performed at [facility];[address] | | LAB | | | | [address];[place] | | | | | | [address] | | | | + + + + + + | MCV | 92.2Comment: Testing | 80.0 - 100.0 fl | EXTERNAL | | | | performed at [facility];[address] | | LAB | | | | [address];[place] | | | | | | [address] | | | | + + + + + + | MCH | 30.9Comment: Testing | 27.0 - 34.0 pg | EXTERNAL | | | | performed at [facility];[address] | | LAB | | | | [address];[place] | | | | | | [address] | | | | + + + + + + | MCHC | 33.6Comment: Testing | 32.0 - 35.5 | EXTERNAL | | | | performed at [facility];[address] | g/dL | LAB | | | | [address];[place] | | | | | | [address] | | | | + + + + + + | RDW-CV | 46.8Comment: Testing | 37 - 53 fl | EXTERNAL | | | | performed at [facility];[address] | | LAB | | | | [address];[place] | | | | | | [address] | | | | + + + + + + | Platelet | 286Comment: Testing | 150 - 400 K/uL | EXTERNAL | | | Count | performed at [facility];[address] | | LAB | | | Plasma | [address];[place] | | | | | | [address] | | | | + + + + + + | MPV | 8.4Comment: Testing | fl | EXTERNAL | | | | performed at [facility];[address] | | LAB | | | | [address];[place] | | | | | | [address] | | | | + + + + + + | Differentia | AUTOMATEDComment: | | EXTERNAL | | | l Type | Testing performed at | | LAB | | | | [facility];[address];[place] [address] | | | | + + + + + + | % Segmented | 54.43Comment: Testing | % | EXTERNAL | | | | performed at [facility];[address] | | LAB | | | Neutrophils | [address];[place] | | | | | | [address] | | | | + + + + + + | % | 36.35Comment: Testing | % | EXTERNAL | | | Lymphocytes | performed at [facility];[address] | | LAB | | | | [address];[place] | | | | | | [address] | | | | + + + + + + | % Monocytes | 6.73Comment: Testing | % | EXTERNAL | | | | performed at [facility];[address] | | LAB | | | | [address];[place] | | | | | | [address] | | | | + + + + + + | % | 1.39Comment: Testing | % | EXTERNAL | | | Eosinophils | performed at [facility];[address] | | LAB | | | | [address];[place] | | | | | | [address] | | | | + + + + + + | % Basophils | 1.10Comment: Testing | % | EXTERNAL | | | | performed at [facility];[address] | | LAB | | | | [address];[place] | | | | | | [address] | | | | + + + + + + | Absolute | 5.93Comment: Testing | 1.90 - 7.40 | EXTERNAL | | | Segmented | performed at [facility];[address] | K/uL | LAB | | | Neutrophils | [address];[place] | | | | | | [address] | | | | + + + + + + | Absolute | 3.96 (H)Comment: Testing | 1.00 - 3.90 | EXTERNAL | | | Lymphocytes | performed at [facility];[address] | K/uL | LAB | | | | [address];[place] | | | | | | [address] | | | | + + + + + + | Absolute | 0.73Comment: Testing | 0.00 - 0.80 | EXTERNAL | | | Monocytes | performed at [facility];[address] | K/uL | LAB | | | | [address];[place] | | | | | | [address] | | | | + + + + + + | Absolute | 0.15Comment: Testing | 0.00 - 0.50 | EXTERNAL | | | Eosinophils | performed at [facility];[address] | K/uL | LAB | | | | [address];[place] | | | | | | [address] | | | | + + + + + + | Absolute | 0.12 (H)Comment: Testing | 0.00 - 0.10 | EXTERNAL | | | Basophils | performed at [facility];[address] | K/uL | LAB | | | | [address];[place] | | | | | | [address] | | | | + + + + + + + + | Specimen | + + | Blood specimen | | (specimen) | + + + +---------+ + + | Performing | Address | City/State/Zipcode | Phone Number | | Organization | | | | + +---------+ + + | EXTERNAL LAB | | | | + +---------+ + + C-Reactive Protein (03/04/2016 12:15 AM PDT) + + + + + + | Component | Value | Ref Range | Performed | Pathologist | | | | | At | Signature | + + + + + + | CRP | <0.3Comment: Testing | mg/dL | EXTERNAL | | | | performed at [facility] | | LAB | | | | [address] [facility];[place], [place] | | | | | | [address] | | | | + + + + + + + + | Specimen | + + | Blood specimen | | (specimen) | + + + +---------+ + + | Performing | Address | City/State/Zipcode | Phone Number | | Organization | | | | + +---------+ + + | EXTERNAL LAB | | | | + +---------+ + + Comprehensive Metabolic Panel (03/04/2016 12:15 AM PDT) + + + + + + | Component | Value | Ref Range | Performed | Pathologist | | | | | At | Signature | + + + + + + | Na | 140Comment: NOTE NEW | 135 - 145 | EXTERNAL | | | | REFERENCE RANGETesting | mmol/L | LAB | | | | performed at [facility] | | | | | | [address];[place], [place] | | | | | | [address] | | | | + + + + + + | K | 3.8Comment: Testing | 3.5 - 4.9 | EXTERNAL | | | | performed at [facility];[address] | mmol/L | LAB | | | | [address];[place] | | | | | | [address] | | | | + + + + + + | Cl | 110 (H)Comment: Testing | 99 - 109 mmol/L | EXTERNAL | | | | performed at [facility];[address] | | LAB | | | | [address];[place] | | | | | | [address] | | | | + + + + + + | CO2 | 25Comment: Testing | 23 - 32 mmol/L | EXTERNAL | | | | performed at [facility];[address] | | LAB | | | | [address];[place] | | | | | | [address] | | | | + + + + + + | Anion Gap | 8Comment: Testing | 5 - 20 mmol/L | EXTERNAL | | | | performed at [facility];[address] | | LAB | | | | [address];[place] | | | | | | [address] | | | | + + + + + + | Glucose, | 96Comment: Testing | 65 - 99 mg/dL | EXTERNAL | | | Fasting | performed at [facility];[address] | | LAB | | | | [address];[place] | | | | | | [address] | | | | + + + + + + | BUN | 19Comment: Testing | 8 - 25 mg/dL | EXTERNAL | | | | performed at [facility];[address] | | LAB | | | | [address];[place] | | | | | | [address] | | | | + + + + + + | Creatinine | 1.0Comment: Testing | 0.70 - 1.30 | EXTERNAL | | | | performed at [facility];[address] | mg/dL | LAB | | | | [address];[place] | | | | | | [address] | | | | + + + + + + | BUN/Creatin | 19Comment: Testing | | EXTERNAL | | | ine Ratio | performed at [facility];[address] | | LAB | | | | [address];[place] | | | | | | [address] | | | | + + + + + + | Calcium | 9.1Comment: Testing | 8.5 - 10.5 | EXTERNAL | | | | performed at [facility];[address] | mg/dL | LAB | | | | [address];[place] | | | | | | [address] | | | | + + + + + + | Protein, | 7.5Comment: Testing | 6.3 - 8.2 g/dL | EXTERNAL | | | Total | performed at [facility];[address] | | LAB | | | | [address];[place] | | | | | | [address] | | | | + + + + + + | Albumin | 3.9Comment: Testing | 3.6 - 5.0 g/dL | EXTERNAL | | | | performed at [facility];[address] | | LAB | | | | [address];[place] | | | | | | [address] | | | | + + + + + + | Globulin | 3.6Comment: Testing | 1.3 - 4.9 g/dL | EXTERNAL | | | | performed at [facility];[address] | | LAB | | | | [address];[place] | | | | | | [address] | | | | + + + + + + | A/G Ratio | 1.1Comment: Testing | 1.0 - 2.4 | EXTERNAL | | | | performed at [facility];[address] | | LAB | | | | [address];[place] | | | | | | [address] | | | | + + + + + + | Bilirubin | 0.5Comment: Testing | 0.1 - 1.5 mg/dL | EXTERNAL | | | Total | performed at [facility];[address] | | LAB | | | | [address];[place] | | | | | | [address] | | | | + + + + + + | ALP, | 98Comment: Testing | 35 - 115 U/L | EXTERNAL | | | External | performed at [facility];[address] | | LAB | | | | [address];[place] | | | | | | [address] | | | | + + + + + + | AST | 45Comment: Testing | 10 - 45 U/L | EXTERNAL | | | | performed at [facility];[address] | | LAB | | | | [address];[place] | | | | | | [address] | | | | + + + + + + | ALT | 48Comment: Testing | 10 - 65 U/L | EXTERNAL | | | | performed at [facility];[address] | | LAB | | | | [address];[place] | | | | | | [address] | | | | + + + [...] | | | | | | at [facility];[address] [place] [address] | | | | | | [facility];[place] [address] | | | | + + + [...] + | Diagnosis | + + | Chronic bilateral low back pain without sciatica | + + | Lower abdominal pain Abdominal pain, other specified site | + + documented in this encounter"
--- OUTSIDE RECORDS SUMMARY | ~2020-01-31 | XMS | Encounter Summary ---
Demographics + + + | Address | [address] | | | [place] [address] | + + + | Home Phone | | + + + | Preferred Language | Unknown | + + + | Marital Status | | + + + | Presybeterian Affiliation | 1013 | + + + | Race | Unknown | + + + | Ethnic Group | Unknown | + + + Author + + + | Author | [facility] | | | and [place] | + + + | Organization | [facility] | | | and [place] | [...] [place] | | | | | [address] | | + + + + + Care Team Providers + +------+ + | Care Academic Support Specialist Name | Role | Phone | [...] | | | [place] | [place] | | | | | [address] | [address] | | | | | [phone] | [phone] | | | | | | | [...] + | C-REACTIVE PROTEIN | Routin | 01/01/2015 | | Results for this | | | e | 2:15 PM | | procedure are in the | | | | PDT | | results section. | + +--------+ + + + documented in this encounter Results C-Reactive Protein (01/01/2015 2:15 PM PDT) + + + + + + | Component | Value | Ref Range | Performed | Pathologist | | | | | At | Signature | + + + + + + | CRP | 2.8 (H)Comment: Testing | mg/dL | EXTERNAL | | | | performed at [facility];[address] | | LAB | | | | [address] | | | | | | [place] [id number] | | | | + + + [...]
--- OUTSIDE RECORDS SUMMARY | ~2020-01-31 | XMS | Encounter Summary ---
Demographics + + + | Address | [address] | | | [place] [address] | + + + | Home Phone | | + + + | Preferred Language | Unknown | + + + | Marital Status | | + + + | Jew Affiliation | Unknown | + + + | Race | White | + + + | Ethnic Group | Not or | + + + Author + + + | Author | [facility] | + + + | Organization | [facility] | + + + | Address | Unknown | + + + | Phone | Unavailable | + + + Support + + +---------+ + | Name | Relationship | Address | Phone | + + +---------+ + | Maria Isabel Cespedes | ECON | Unknown | | + + +---------+ + Care Team Providers + +------+ + | Care Weatherization Coordinator Name | Role | Phone | + [...] | | | | | [place], | | | | | | [place] [address] | | | +--------+--------+ + + + [...]
--- OUTSIDE RECORDS SUMMARY | ~2020-01-31 | XMS | Encounter Summary ---
Demographics + + + | Address | [address] | | | [place] [address] | + + + | Home Phone | | + + + | Preferred Language | Unknown | + + + | Marital Status | | + + + | Congregation Affiliation | 1013 | + + + | Race | Unknown | + + + | Ethnic Group | Unknown | + + + Author + + + | Author | [facility] | | | and [place] | + + + | Organization | [facility] | | | and [...] [place] | | | | | [address] | | + + + + + Care Team Providers + +------+ + | Care Tipping Machine Operator Name | Role | Phone | [...] + + + + | 10/07/ | Telephone | [facility] | Anival Stevenson MD | Results | | 2020 | | GENERAL SURGERY [address] | [address] | | | | | [address] | [address] [place], [place] | | | | | [place], [place] | [address] | | | | | [address] | | | | | | [phone] | | | +--------+ + + + [...]
--- OUTSIDE RECORDS SUMMARY | ~2020-01-31 | XMS | Encounter Summary ---
Demographics + + + | Address | [address] | | | [place] [address] | + + + | Home Phone | | + + + | Preferred Language | Unknown | + + + | Marital Status | | + + + | Mandaeism Affiliation | Unknown | + + + | Race | White | + + + | Ethnic Group | Not or | + + + Author + + + | Author | [facility] | + + + | Organization | [facility] | + + + | Address | Unknown | + + + | Phone | Unavailable | + + + Support + + +---------+ + | Name | Relationship | Address | Phone | + + +---------+ + | Maria Isabel Cespedes | ECON | Unknown | | + + +---------+ + Care Team Providers + +------+ + | Care Music Pastor Name | Role | Phone | + +------+ + | Allison Fairchild NP | PCP | | + +------+ + Encounter Details +--------+--------+ + + + | Date | Type | Department | Care Team | Description | +--------+--------+ + + + | 01/28/ | Intake | Transfer Center | | N/A | | 2018 | | [address] | | | | | | [place], | | | | | | [place] [address] | | | +--------+--------+ + + + [...]
--- OUTSIDE RECORDS SUMMARY | ~2020-01-31 | XMS | Encounter Summary ---
Demographics + + + | Address | [address] | | | [place] [address] | + + + | Home Phone | | + + + | Preferred Language | Unknown | + + + | Marital Status | | + + + | Jainism Affiliation | 1013 | + + + | Race | Unknown | + + + | Ethnic Group | Unknown | + + + Author + + + | Author | [facility] | | | and [place] | + + + | Organization | [facility] | | | and [...] [place] | | | | | [address] | | + + + + + Care Team Providers + +------+ + | Care Tennis Professional Name | Role | Phone | + [...] [place] | | | | | [address] | [address] | | | | | [phone] | [phone] | | | | | | | [...] + + + | URINALYSIS WITH | Routin | 10/03/2013 | | Results for this | | MICROSCOPIC WITH | e | 5:30 PM | | procedure are in the | | CULTURE IF INDICATED | | PST | | results section. | + +--------+ + + + documented in this encounter Results Urinalysis with Microscopic with Culture if Indicated (10/03/2013 5:30 PM PST) + + + + + + | Component | Value | Ref Range | Performed | Pathologist | | | | | At | Signature | + + + + + + | Color | YELLOWComment: Testing | | EXTERNAL | | | | performed at [facility] | | LAB | | | | [facility];[address] | | | | | | [place] | | | | | | [address] | | | | + + + + + + | Clarity | CLEARComment: Testing | | EXTERNAL | | | | performed at [facility] | | LAB | | | | [facility];[address] | | | | | | [place] | | | | | | [address] | | | | + + + + + + | Specific | 1.025Comment: Testing | 1.002 - 1.030 | EXTERNAL | | | [place], | performed at [facility] | | LAB | | | Urine | Health;[address] | | | | | | [place] | | | | | | [address] | | | | + + + + + + | Leukocyte | NEGATIVEComment: Testing | | EXTERNAL | | | Esterase, | performed at [facility] | | LAB | | | Urine | Health;[address] | | | | | | [place] | | | | | | [address] | | | | + + + + + + | Nitrite, | NEGATIVEComment: Testing | | EXTERNAL | | | Urine | performed at [facility] | | LAB | | | | [facility];[address] | | | | | | [place] | | | | | | [address] | | | | + + + + + + | Urobilinoge | 0.2Comment: Testing | mg/dL | EXTERNAL | | | n, Urine | performed at [facility] | | LAB | | | | [facility];[address] | | | | | | [place] | | | | | | [address] | | | | + + + + + + | Protein, | NEGATIVEComment: Testing | mg/dL | EXTERNAL | | | Urine | performed at [facility] | | LAB | | | | [facility];[address] | | | | | | [place] | | | | | | [address] | | | | + + + + + + | pH, Urine | 5.5Comment: Testing | 5.0 - 8.0 | EXTERNAL | | | | performed at [facility] | | LAB | | | | [facility];[address] | | | | | | [place] | | | | | | [address] | | | | + + + + + + | Blood, | NEGATIVEComment: Testing | | EXTERNAL | | | Urine | performed at [facility] | | LAB | | | | [facility];[address] | | | | | | [place] | | | | | | [address] | | | | + + + + + + | Ketones | NEGATIVEComment: Testing | mg/dL | EXTERNAL | | | | performed at [facility] | | LAB | | | | [facility];[address] | | | | | | [place] | | | | | | [address] | | | | + + + + + + | Bilirubin, | NEGATIVEComment: Testing | | EXTERNAL | | | Urine | performed at [facility] | | LAB | | | | [facility];[address] | | | | | | [place] | | | | | | [address] | | | | + + + + + + | Glucose, | NEGATIVEComment: Testing | mg/dL | EXTERNAL | | | Urine | performed at [facility] | | LAB | | | | [facility];[address] | | | | | | [place] | | | | | | [address] | | | | + + + + + + | WBC, UA | NONE SEENComment: | 0 - 5 /hpf | EXTERNAL | | | | Testing performed at | | LAB | | | | [facility];[address] | | | | | | [place] | | | | | | [address] | | | | + + + + + + | RBC, UA | NONE SEENComment: | 0 - 2 /hpf | EXTERNAL | | | | Testing performed at | | LAB | | | | [facility];[address] | | | | | | [place] | | | | | | [address] | | | | + + + + + + | Epithelial | NONE SEENComment: | /lpf | EXTERNAL | | | Cells | Testing performed at | | LAB | | | | [facility];[address] | | | | | | [place] | | | | | | [address] | | | | + + + + + + | Bacteria, | 1+ (A)Comment: Testing | | EXTERNAL | | | UA | performed at [facility] | | LAB | | | | [facility];[address] | | | | | | [place] | | | | | | [address] | | | | + + + + + + | Crystals | MANYComment: URIC ACID | /hpf | EXTERNAL | | | | | | LAB | | + + + + + + | Urinalysis | CULTURE TO FOLLOW | | EXTERNAL | | | Comments | | | LAB | | + [...]
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
--- OUTSIDE RECORDS SUMMARY | ~2020-01-31 | XMS | Encounter Summary ---
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 [address] | | | | + + + [...] + | Diagnosis | + + | Incisional hernia without mention of obstruction or gangrene | + + documented in this encounter
--- OUTSIDE RECORDS SUMMARY | ~2020-01-31 | XMS | Encounter Summary ---
Demographics + + + | Address | [address] | | | [place] [address] | + + + | Home Phone | | + + + | Preferred Language | Unknown | + + + | Marital Status | | + + + | Samaritan Affiliation | 1013 | + + + | Race | Unknown | + + + | Ethnic Group | Unknown | + + + Author + + + | Author | [facility] | | | and [place] | + + + | Organization | [facility] | | | and [...] [place] | | | | | [address] | | + + + + + Care Team Providers + +------+ + | Care Music Internship Name | Role | Phone | + [...] | | | [place] | [place] | | | | | [address] | [address] | | | | | [phone] | [phone] | | | | | | | [...] [place] | | | | | | [address] | | | | + + + + + + | K | 5.6 (H)Comment: Testing | 3.5 - 4.9 | EXTERNAL | | | | performed at [facility] | mmol/L | LAB | | | | Health;[address] | | | | | | [place] | | | | | | [address] | | | | + + + + + + | Cl | 95 (L)Comment: Testing | 99 - 109 mmol/L | EXTERNAL | | | | performed at [facility] | | LAB | | | | Health;[address] | | | | | | [place] | | | | | | [address] | | | | + + + + + + | CO2 | 22 (L)Comment: Testing | 23 - 32 mmol/L | EXTERNAL | | | | performed at [facility] | | LAB | | | | Health;[address] | | | | | | [place] | | | | | | [address] | | | | + + + + + + | Anion Gap | 15Comment: Testing | 5 - 20 mmol/L | EXTERNAL | | | | performed at [facility] | | LAB | | | | Health;[address] | | | | | | [place] | | | | | | [address] | | | | + + + + + + | Glucose, | 126 (H)Comment: Testing | 65 - 99 mg/dL | EXTERNAL | | | Fasting | performed at [facility] | | LAB | | | | Health;[address] | | | | | | [place] | | | | | | [address] | | | | + + + + + + | BUN | 30 (H)Comment: Testing | 8 - 25 mg/dL | EXTERNAL | | | | performed at [facility] | | LAB | | | | Health;[address] | | | | | | [place] | | | | | | [address] | | | | + + + + + + | Creatinine | 1.2Comment: Testing | 0.70 - 1.30 | EXTERNAL | | | | performed at [facility] | mg/dL | LAB | | | | Health;[address] | | | | | | [place] | | | | | | [address] | | | | + + + + + + | BUN/Creatin | 25Comment: Testing | | EXTERNAL | | | ine Ratio | performed at [facility] | | LAB | | | | Health;[address] | | | | | | [place] | | | | | | [address] | | | | + + + + + + | Calcium | 9.9Comment: Testing | 8.5 - 10.2 | EXTERNAL | | | | performed at [facility] | mg/dL | LAB | | | | Health;[address] | | | | | | [place] | | | | | | [address] | | | | + + + + + + | Protein, | 7.7Comment: Testing | 6.3 - 8.2 g/dL | EXTERNAL | | | Total | performed at [facility] | | LAB | | | | Health;[address] | | | | | | [place] | | | | | | [address] | | | | + + + + + + | Albumin | 3.6Comment: Testing | 3.6 - 5.0 g/dL | EXTERNAL | | | | performed at [facility] | | LAB | | | | Health;[address] | | | | | | [place] | | | | | | [address] | | | | + + + + + + | Globulin | 4.1Comment: Testing | 1.3 - 4.9 g/dL | EXTERNAL | | | | performed at [facility] | | LAB | | | | Health;[address] | | | | | | [place] | | | | | | [address] | | | | + + + + + + | A/G Ratio | 0.9 (L)Comment: Testing | 1.0 - 2.4 | EXTERNAL | | | | performed at [facility] | | LAB | | | | Health;[address] | | | | | | [place] | | | | | | [address] | | | | + + + + + + | Bilirubin | 0.2Comment: Testing | 0.1 - 1.5 mg/dL | EXTERNAL | | | Total | performed at [facility] | | LAB | | | | Health;[address] | | | | | | [place] | | | | | | [address] | | | | + + + + + + | ALP, | 116 (H)Comment: Testing | 35 - 115 U/L | EXTERNAL | | | External | performed at [facility] | | LAB | | | | Health;[address] | | | | | | [place] | | | | | | [address] | | | | + + + + + + | AST | 58 (H)Comment: Testing | 10 - 45 U/L | EXTERNAL | | | | performed at [facility] | | LAB | | | | Health;[address] | | | | | | [place] | | | | | | [address] | | | | + + + + + + | ALT | 67 (H)Comment: Testing | 10 - 65 U/L | EXTERNAL | | | | performed at [facility] | | LAB | | | | Health;[address] | | | | | | [place] | | | | | | [address] | | | | + + + [...] | | | | | | at [facility];[address] | | | | | | [place] | | | | | | [address] | | | | + + + [...]
--- OUTSIDE RECORDS SUMMARY | ~2020-01-31 | XMS | Encounter Summary ---
Demographics + + + | Address | [address] | | | [place] [address] | + + + | Home Phone | | + + + | Preferred Language | Unknown | + + + | Marital Status | | + + + | Bahai Affiliation | 1013 | + + + | Race | Unknown | + + + | Ethnic Group | Unknown | + + + Author + + + | Author | [facility] | | | and [place] | + + + | Organization | [facility] | | | and [place] [...] [place] | | | | | [address] | | + + + + + Care Team Providers + +------+ + | Care Mill Representative Name | Role | Phone | + [...] [place] | | | | | [address] | [address] | | | | | [phone] | [phone] | | | | | | | [...] + + | LIPASE | Routin | 10/03/2013 | | Results for this | | | e | 4:05 PM | | procedure are in the | | | | PST | | results section. | + +--------+ + + + documented in this encounter Results Lipase (10/03/2013 4:05 PM PST) + + + + + + | Component | Value | Ref Range | Performed | Pathologist | | | | | At | Signature | + + + + + + | Lipase | 442 (H)Comment: Testing | 73 - 393 U/L | EXTERNAL | | | | performed at [facility] | | LAB | | | | Health;[address] | | | | | | [place] | | | | | | [address] | | | | + + + [...]
--- OUTSIDE RECORDS SUMMARY | ~2020-01-31 | XMS | Encounter Summary ---
Demographics + + + | Address | [address] | | | [place] [address] | + + + | Home Phone | | + + + | Preferred Language | Unknown | + + + | Marital Status | | + + + | Pentecostalism Affiliation | 1013 | + + + | Race | Unknown | + + + | Ethnic Group | Unknown | + + + Author + + + | Author | [facility] | | | and [place] | + + + | Organization | [facility] | | | and [...] [place] | | | | | [address] | | + + + + + Care Team Providers + +------+ + | Care Automatic Vulcanizing Lead Operator Name | Role | Phone | [...] | | | [place] | [place] | | | | | [address] | [address] | | | | | [phone] | [phone] | | | | | | | [...] EXTERNAL LAB | | Testing performed at [facility] | | | Health;[address] [place];[place] [address] CULTURE | | | NO GROWTH 6 DAYS | | | Testing performed at [facility], [address], | | | [place] [address] REPORT STATUS | | | 09/07/2013 FINAL [...]
--- OUTSIDE RECORDS SUMMARY | ~2020-01-31 | XMS | Encounter Summary ---
Demographics + + + | Address | [address] | | | [place] [address] | + + + | Home Phone [...] | Author | [facility] | | | and [place] | + + + | Organization | [facility] | | | and [place] [...] [place] | | | | | [address] | | + + + + + Care Team Providers + +------+ + | Care Health And Wellness Coach Name | Role | Phone | + [...] | | | | | | | ([facility]) | | | | | [...] + + | 09/06/ | Surgery | [facility] | Anival Stevenson MD | REPAIR HERNIA | | 2019 | | [facility] | [address] | INCISIONAL COMPLEX | | | | OPERATING ROOM [address] | [address] [place], [place] | | | | | [place] | [address] | | | | | [place], [place] | | | | | | [address] | | | | | | [phone] | | | +--------+---------+ + + + [...] Physician Discharge Summary Patient ID: Reza Cespedes [id number] y.o. 1960 Admit date: 09/06/2019 Discharge date and time: 09/12/2019 Admitting Physician: Anivla Stevenson MD Discharge Physician: Anival Stevenson MD [...] bruising may occur. It appears as a wkltv-orl-tapz area around the incision and indic ates [...] suspect a problem. Our office number is [phone] documented in this encounter Medications at Time [...] Thomas MD - 09/12/2019 11:01 AM PST [facility] Service: General Surgery Progress Note Hospital Day: [...] Pelayo MD - 09/11/2019 10:48 AM PST [facility] Service: General Surgery Progress Note Hospital Day: [...] MD - 09/10/2019 11:17 AM PS T [facility] Service: General Surgery Progress Note Hospital Day: [...] home and was on IV ABX with [facility] home infusion. I called [facility] and Pt [...] Pelayo MD - 09/09/2019 10:23 AM PST [facility] Service: General Surgery Progress Note Hospital Day: [...] s Caregiver: (P) spouse/significant other, homecare agency (specify)([facility] for h ome IVAB) Functional Status: ambulatory [...] Contact Information: Name: (Tarik Araiza Phone: P) [phone] Pager: Fax: DC Needs Assessment Current Outpt/Agency/Support Groups: (P) infusion therapy, home Community Agency Name: (P) [facility] Anticipated Changes Related to Illness: (P) none [...] Steps: Notes: Patient discharged on 07/29/2019 with [facility] for home IVAB. CM to follow for [...] Pelayo MD - 09/08/2019 8:17 AM PST [facility] Service: General Surgery Progress Note Hospital Day: [...] Pelayo MD - 09/07/2019 12:46 PM PST [facility] Service: General Surgery Progress Note Hospital Day: [...] | | | | | performed at [facility], [address] | | | | | | [facility], | | | | | | [place] [address] | | | | + + + + + + + + | Specimen | + + | Blood | + + + + + + + | Performing | Address | City/State/Zipcode | Phone Number | | Organization | | | | + + + + + | [facility] | [address] | [place] [address] | [phone] | + + + + + CBC [...] [facility] | | | | performed at [facility], [address] | | LABORATORY | | | | [place], | | | | | | [place] [address] | | | | + + + + + + + + | Specimen | + + | Blood | + + + + + + + | Performing | Address | City/State/Zipcode | Phone Number | | Organization | | | | + + + + + | [facility] | [address] | [place] [address] | [phone] | + + + + + POC Glucose (09/10/2019 12:25 PM PST) + + + + + + | Component | Value | Ref Range | Performed | Pathologist | | | | | At | Signature | + + + + + + | Glucose, | 145 (H)Comment: Testing | 65 - 99 mg/dL | [facility] | | | POC | performed at [facility];[address] | | LABORATORY | | | | [address];[place], [place] | | | | | | [address] | | | | + + + + + + + + | Specimen | + + | | + + + + + + + | Performing | Address | City/State/Zipcode | Phone Number | | Organization | | | | + + + + + | [facility] | [address] | [place] [address] | [phone] | + + + + + CBC [...] PR[facility] | | | | performed at [facility], [address] | | LABORATORY | | | | [place], | | | | | | [place] [address] | | | | + + + + + + + + | Specimen | + + | Blood | + + + + + + + | Performing | Address | City/State/Zipcode | Phone Number | | Organization | | | | + + + + + | [facility] | [address] | [place] [address] | [phone] | + + + + + Basic [...] | | | | | performed at [facility], [address] | | | | | | [place], | | | | | | [place] [address] | | | | + + + + + + + + | Specimen | + + | Blood | + + + + + + + | Performing | Address | City/State/Zipcode | Phone Number | | Organization | | | | + + + + + | [facility] | [address] | [place] [address] | [phone] | + + + + + Basic [...] | | | | | performed at [facility], [address] | | | | | | [facility], | | | | | | [place], [place] [address] | | | | + + + + + + + + | Specimen | + + | Blood | + + + + + + + | Performing | Address | City/State/Zipcode | Phone Number | | Organization | | | | + + + + + | [facility] | [address] | [place] [address] | [phone] | + + + + + CBC [...] [facility] | | | | performed at [facility], [address] | | LABORATORY | | | | [place], | | | | | | [place] [address] | | | | + + + + + + + + | Specimen | + + | Blood | + + + + + + + | Performing | Address | City/State/Zipcode | Phone Number | | Organization | | | | + + + + + | [facility] | [address] | [place] [address] | [phone] | + + + + + POC Glucose (09/06/2019 3:14 PM PST) + + + + + + | Component | Value | Ref Range | Performed | Pathologist | | | | | At | Signature | + + + + + + | Glucose, | 119 (H)Comment: Testing | 65 - 99 mg/dL | [facility] | | | POC | performed at [facility];[address] | | LABORATORY | | | | [address];[place] | | | | | | [address] | | | | + + + + + + + + | Specimen | + + | | + + + + + + + | Performing | Address | City/State/Zipcode | Phone Number | | Organization | | | | + + + + + | [facility] | [address] | [place] [address] | [phone] | + + + + + Surgical [...] | fecal material and a brock-white exudate. Bicycle Technician sections are | | | submitted in [...] | | technical component was performed by [facility], [address] [place] [address] | | | [place] [address] (Brake Machine Operator: Mckayla Andino MD; CLIA# | | | [id number]). Professional interpretation was performed [email or web address] | | | [facility], [address], | | | [place] [address] (Brake Machine Operator: Renaldo Love M.D.; CLIA#: | | | [id number]). Diagnostician: Arturo Foster | | | DOPathologistElectronically Signed 09/12/2019 | | | | | |PERFORMING LABORATORY: | | |The technical component was performed by [facility], [address] [place] [address] (Brake Machine Operator: Mckayla Andino MD; CLIA# [id number]). Professional interpretation was performed by | | |[facility], [address] [address] (Brake Machine Operator: Renaldo Love M.D.; CLIA#: [id number]). | | | | | |Diagnostician: Arturo [...]
--- OUTSIDE RECORDS SUMMARY | ~2020-01-31 | XMS | Encounter Summary ---
Demographics + + + | Address | [address] | | | [place] [address] | + + + | Home Phone [...] + | Author | [facility] | | | and [place] | + + + | Organization | [facility] | | | and [...] [place] | | | | | [address] | | + + + + + Care Team Providers + +------+ + | Care Computer Forensics Investigator Name | Role | Phone | + +------+ + | Allison Fairchild NP | PCP | | + +------+ + Reason for Visit +--------+ + | Reason | Comments | +--------+ + | Other | | +--------+ + Encounter Details +--------+ + + + + | Date | Type | Department | Care Team | Description | +--------+ + + + + | 10/26/ | Telephone | [facility] | Adrian Aponte MD | Other | | 2016 | | GASTROENTEROLOGY | [address] | | | | | [address] [facility] | [place], [place] | | | | | [address] [place] | [address] | | | | | [address] | [phone] | | | | | [phone] | | | +--------+ + + + [...]
--- OUTSIDE RECORDS SUMMARY | ~2020-01-31 | XMS | Encounter Summary ---
Demographics + + + | Address | [address] | | | [place] [address] | + + + | Home Phone | | + + + | Preferred Language | Unknown | + + + | Marital Status | | + + + | Uatsdin Affiliation | 1013 | + + + | Race | Unknown | + + + | Ethnic Group | Unknown | + + + Author + + + | Author | [facility] | | | and [place] | + + + | Organization | [facility] | | [...] [place] | | | | | [address] | | + + + + + Care Team Providers + +------+ + | Care Bartender Manager Name | Role | Phone | [...] | | | | | | | [place] | | | | | | | ESOPHAGOGAST | | | | | | | RODUODENOSCO | | | | | | | PY TRANSORAL | | | | | | | DIAGNOSTIC | | | | | | | [place] EGD | | | | | | | TRANSORAL | | | | | | | BIOPSY | | | | | | | SINGLE/MULTI | | | | | | | PLE NC | | | | | | | [...] + | 11/18/ | Anesthesia | [facility] | Tre Mann, | | | 2017 | Event | MED CTR MP INTRA OP | DO [address] | | | | | [address] | [place] | | | | | [place] | [address] | | | | | [address] | | | | | | [phone] | | | +--------+ + + + [...] | 11/18/17926 by | | eral | [id number] catheter system; | Shayna Mena RN | [...]
--- OUTSIDE RECORDS SUMMARY | ~2020-01-31 | XMS | Encounter Summary ---
Demographics + + + | Address | [address] | | | [place] [address] | + + + | Home Phone [...] + + | Author | [facility] | | | and [place] | + + + | Organization | [facility] | | | and [...] [place] | | | | | [address] | | + + + + + Care Team Providers + +------+ + | Care Locomotive Inspector Name | Role | Phone | + [...] | | | | dysphagia | | [place] [address] | | | | | Other | | Phone: | | | | | dysphagia | | [phone] | | | | | [R13.19]Unsp | | Fax: | | | | | ecified | | [phone] | | | | | abdominal | | | | | | | pain [R10.9] | | | +--------+--------+ + + + + Encounter Details +--------+---------+ + + + | Date | Type | Department | Care Team | Description | +--------+---------+ + + + | 10/23/ | Surgery | [facility] | Adrian Aponte MD | EGD | | 2016 | | MED CTR MP INTRA OP | [address] | | | | | [address] | [place] | | | | | [place] | [address] | | | | | [address] | [phone] | | | | | [phone] | | | +--------+---------+ + + + [...] the physician who did your procedure at [phone] if you have any questions or experience any of the following: ? Increasing abdominal pain, nausea, or vomiting. ? Chills and fever over 101F. ? New abdominal swelling or bloating. ? Signs of rectal bleeding (black or red stool). If you cannot get a hold of your physician, then call the [facility] [phone] . If necessary, report to the Emergency Department at [facility]. Quit smoking: If you smoke or have [...] | | GastroenterologyPatient Name: Reza Xiong Date: 10/23/2015 | PROVATION | | 7:35 AMMRN: [id number] #: [id number] of : | | | 1960Admit Type: AmbulatoryAge: 54Room: [facility] 02Gender: MaleNote | | | Status: FinalizedAttending MD: Adrian Aponte, MDProcedure: | | | Upper GI endoscopyIndications: Epigastric abdominal pain, | | | DysphagiaProviders: Adrian Aponte MD, Hellen Ann, | | | RN, Bailey Borrego, TechnicianReferring MD: | | | Allisno Fairchild NP (Referring MD)Medicines: | | | [...] the anesthesiologist and the | | | research laboratory technician in the pre-procedure area in the endoscopy [...] | | | AMScope Out: 8:09:58 AM [facility], [address] | | [place] [address] | | | patient. Return to normal [...] |Scope Out: 8:09:58 AM | | | [facility], [address] , [place], [place] | | | [address] | | + + -+ + +---------+ [...] - | | | Negative for dysplasia. [facility]:C2NR GROSS DESCRIPTION: | | | Received in [...] | and slide preparation were performed by [facility], [address] | | | [facility], [address], [place] [address] ([employer]: Alex | | | Trevin Hathaway CLIA#: [id number]). Professional interpretation was | | | performed by [facility], [facility], | | | [address] [place] [address] ([employer]: | | | Natan Carson M.D.; CLIA#: [id number]). Diagnostician: | | | Natan Carson MD [...] + | Diagnosis | + + | Unspecified abdominal pain | + + | Other dysphagia | + + documented in this encounter [...]
--- OUTSIDE RECORDS SUMMARY | ~2020-01-31 | XMS | Encounter Summary ---
Demographics + + + | Address | [address] | | | [place] [address] | + + + | Home Phone | | + + + | Preferred Language | Unknown | + + + | Marital Status | | + + + | Islam Affiliation | 1013 | + + + | Race | Unknown | + + + | Ethnic Group | Unknown | + + + Author + + + | Author | [facility] | | | and [place] | + + + | Organization | [facility] | | | and [place] [...] [place] | | | | | [address] | | + + + + + Care Team Providers + +------+ + | Care Allocations Clerk Name | Role | Phone | + +------+ + | Allison Fairchild NP | PCP | | + +------+ + Reason for Visit +--------+ + | Reason | Comments | +--------+ + | EGD | | +--------+ + Encounter Details +--------+ + + + + | Date | Type | Department | Care Team | Description | +--------+ + + + + | 11/12/ | Telephone | [facility] | Adrian Aponte MD | EGD | | 2018 | | GASTROENTEROLOGY | [address] | | | | | [address] [facility] | [place], [place] | | | | | [address] [place] | [address] | | | | | [address] | [phone] | | | | | [phone] | | | +--------+ + + + [...]
--- OUTSIDE RECORDS SUMMARY | ~2020-01-31 | XMS | Encounter Summary ---
Demographics + + + | Address | [address] | | | [place] [address] | + + + | Home Phone | | + + + | Preferred Language | Unknown | + + + | Marital Status | | + + + | Jain Affiliation | 1013 | + + + | Race | Unknown | + + + | Ethnic Group | Unknown | + + + Author + + + | Author | [facility] | | | and [place] | + + + | Organization | [facility] | | [...] [place] | | | | | [address] | | + + + + + Care Team Providers + +------+ + | Care Skid Machine Operator Name | Role | Phone | + +------+ + | Allison Fairchild NP | PCP | | + +------+ + Encounter Details +--------+ + + + + | Date | Type | Department | Care Team | Description | +--------+ + + + + | 11/10/ | [facility] | [facility] | Jamie Bentley MD | Recurrent incisional | | 2016 | Encounter | [facility] | [address] | hernia | | | | [address] | [address] [place], [place] | | | | | [place], [place] | [address] | | | | | [address] | | | | | | [phone] | | | +--------+ + + + [...] documented as of this encounter Progress Notes Conversion Transaction, Provider Unknown - 11/10/2016 2:46 PM PSTFormatting of this note m ight be different from the original. Nurse Progress Note by Angie Shaw RN at 11/10/16 1446 Author: Angie Shaw RN Service: General Surgery Author Type: Registered Nurse Filed: 11/10/16 1506 Date of Service: 11/10/16 1446 Status: Signed Cardiac Exercise Physiologist: Angie Shaw RN (Registered Nurse) Pt AOx4. He states his pain is at a tolerable level. He and his plan to stay at a [facility], close to the hospital since they live in [place] and do not want to travel th at far from the hospital. Pt able to void. Pt vitals WNL. Instructed pt on s/s of infectio n, DVT and PE. Angie Shaw RN 11/10/2016 3:06 PM onver day Transaction, Provider Unknown - 11/10/2016 1:42 PM PST Nurse Progress Note by Ev Mendoza RN at 11/10/16 1342 Author: Ev Mendoza RN Service: (none) Author Type: Registered Nurse Filed: 11/10/16 1345 Date of Service: 11/10/16 1342 Status: Signed Cardiac Exercise Physiologist: Ev Mendoza RN (Registered Nurse) Pt unable to remember that he just had sx. Pt keeps repeating that he thinks he fell on oscar ething. states pt falls frequently and has several steps to get up at home. in te ars and concerned for pt safety upon DC. Pt pain control has been minimal. Pt brow furrowe d and conts to repeat, "I hurt." Pt is unable to void at this time. Request put in for CDU bed. onver day Transaction, Provider Unknown - 11/10/2016 10:39 AM PST Nurse Progress Note by Elvi Reddy RN at 11/10/16 1039 Author: Elvi Reddy RN Service: (none) Author Type: Registered Nurse Filed: 11/10/16 1042 Date of Service: 11/10/16 1039 Status: Signed Cardiac Exercise Physiologist: Elvi Reddy RN (Registered Nurse) Maria Isabel Foley Stated she has been with Reza when he wakes up from surgery to reorient him, i n the past. Pt with hx of PTSD and TBI. Passed info on to lead RN. Call light within reach. Covered with more warm blankets. Lights dimmed. Pt needs help answering some of pre-op quest ions. Maria Isabel helps with answering them. Elvi Reddy RN 11/10/2016 10:41 AM docume nted in this encounter Plan of Treatment Not on filedocumented as of this encounter Visit Diagnoses + + | Diagnosis | + + | Recurrent incisional hernia | + + documented in this encounter
--- OUTSIDE RECORDS SUMMARY | ~2020-01-31 | XMS | Encounter Summary ---
Demographics + + + | Address | [address] | | | [place] [address] | + + + | Home Phone [...] | Author | [facility] | | | and [place] | + + + | Organization | [facility] | | | and [place] | [...] [place] | | | | | [address] | | + + + + + Care Team Providers + +------+ + | Care Due Diligence Coordinator Name | Role | Phone | [...] | | | [place] | [place] | | | | | [address] | [phone] | | | | | [phone] | [phone] | | | | | | | [...] | + +--------+ + + + | TSH WITH REFLEX | Routin | 01/01/2015 | | Results for this | | | e | 2:15 PM | | procedure are in the | | | | PDT | | results section. | + +--------+ + + + documented in this encounter Results TSH with Reflex (01/01/2015 2:15 PM PDT) + + + + + + | Component | Value | Ref Range | Performed | Pathologist | | | | | At | Signature | + + + + + + | TSH | 0.99Comment: Testing | 0.45 - 5.10 | EXTERNAL | | | | performed at [facility];[address] | uIU/mL | LAB | | | | [address] | | | | | | [place] [address] | | | | + + + [...]
--- OUTSIDE RECORDS SUMMARY | ~2020-01-31 | XMS | Encounter Summary ---
Demographics + + + | Address | [address] | | | [place] [address] | + + + | Home Phone | | + + + | Preferred Language | Unknown | + + + | Marital Status | | + + + | Mandaeism Affiliation | 1013 | + + + | Race | Unknown | + + + | Ethnic Group | Unknown | + + + Author + + + | Author | [facility] | | | and [place] | + + + | Organization | [facility] | | | and [place] | + + + | Address | Unknown | + + + | Phone | Unavailable | + + + Support + + + + + | Name | Relationship | Address | Phone | + + + + + | Teodora Cespedes | ECON | [address] | | | | | [facility] [place] | | | | | [address] | | + + + + + Care Team Providers + +------+ + | Care Talent Sourcing Specialist Name | Role | Phone | + +------+ + PCP | Unavailable | + +------+ + Encounter Details +--------+ + + + + | Date | Type | Department | Care Team | Description | +--------+ + + + + | 10/31/ | Hospital | [facility] | Conversion | | | 2014 | Encounter | [facility] | Transaction, | | | | | CLINIC [address] | Provider Unknown | | | | | [place], [place] | | | | | | [phone] | (Fax) | | | | | [phone] | | | +--------+ + + + [...] | ECG 12 LEAD | Routin | 10/31/2014 | | Results for this | | | e | 2:29 PM | | procedure are in the | | | | PST | | results section. | + +--------+ + + + | EXTERNAL LAB: CBC | Routin | 10/31/2014 | | Results for this | | | e | 2:15 PM | | procedure are in the | | | | PST | | results section. | + +--------+ + + + | MRSA NAAT | Timed | 10/31/2014 | | Results for this | | | | 2:15 PM | | procedure are in the | | | | PST | | results section. | + +--------+ + + + | TYPE AND SCREEN | Routin | 10/31/2014 | | Results for this | | | e | 2:15 PM | | procedure are in the | | | | PST | | results section. | + +--------+ + + + | BASIC METABOLIC | Routin | 10/31/2014 | | Results for this | | PANEL | e | 2:15 PM | | procedure are in the | | | | PST | | results section. | + +--------+ + + + documented in this encounter Results ECG 12 lead (10/31/2014 2:29 PM PST) + + + + + + | Component | Value | Ref Range | Performed | Pathologist | | | | | At | Signature | + + + + + + | DIAGNOSIS: | Normal sinus | | EXTERNAL | | | | rhythmNonspecific T wave | | LAB | | | | abnormalityAbnormal | | | | | | ECGWhen compared with | | | | | | ECG of 12-JUL-2014 | | | | | | 16:26,ST no longer | | | | | | depressed in Anterior | | | | | | leadsConfirmed by | | | | | | DELORES NESBITT ([id number]) on | | | | | | 10/31/2014 5:08:13 PM | | | | + + + + + + + + | Specimen | + + | | + + + + + | Narrative | Performed At | + + + | Historically converted procedure from [facility] Epic environment | EXTERNAL LAB | + + + + +---------+ + + | Performing | Address | City/State/Zipcode | Phone Number | | Organization | | | | + +---------+ + + | EXTERNAL LAB | | | | + +---------+ + + Type and Screen (10/31/2014 2:15 PM PST) + + + + + [...] | EXTERNAL | | | | [facility] | | LAB | | | | [address];[place] [address] | | | | + + + + + + | Antibody | NEGATIVE | | EXTERNAL | | | Screen | | | LAB | | + + + + + + | Antibody | Testing performed at | | EXTERNAL | | | Screen | [facility];[address] | | LAB | | | | [address];[place] [address] | | | | + + + [...] + +---------+ + + External Lab: CBC (10/31/2014 2:15 PM PST) + + + + + + | Component | Value | Ref Range | Performed | Pathologist | | | | | At | Signature | + + + + + + | WBC | 11.7 (H)Comment: Testing | 3.8 - 11.0 K/uL | EXTERNAL | | | | performed at [facility];[address] | | LAB | | | | [address];[place] | | | | | | [address] | | | | + + + + + + | Red Blood | 4.67Comment: Testing | 4.20 - 5.70 | EXTERNAL | | | Cells | performed at [facility];[address] | M/uL | LAB | | | Counted | [address];[place] | | | | | | [address] | | | | + + + + + + | Hemoglobin | 14.1Comment: Testing | 13.2 - 17.0 | EXTERNAL | | | | performed at [facility];[address] | g/dL | LAB | | | | [address];[place] | | | | | | [address] | | | | + + + + + + | Hematocrit, | 42.8Comment: Testing | 39.0 - 50.0 % | EXTERNAL | | | POC | performed at [facility];[address] | | LAB | | | | [address];[place] | | | | | | [address] | | | | + + + + + + | MCV | 91.6Comment: Testing | 80.0 - 100.0 fl | EXTERNAL | | | | performed at [facility];[address] | | LAB | | | | [address];[place] | | | | | | [address] | | | | + + + + + + | MCH | 30.1Comment: Testing | 27.0 - 34.0 pg | EXTERNAL | | | | performed at [facility];[address] | | LAB | | | | [address];[place] | | | | | | [address] | | | | + + + + + + | MCHC | 32.9Comment: Testing | 32.0 - 35.5 | EXTERNAL | | | | performed at [facility];[address] | g/dL | LAB | | | | [address];[place] | | | | | | [address] | | | | + + + + + + | RDW-CV | 45.5Comment: Testing | 37 - 53 fl | EXTERNAL | | | | performed at [facility];[address] | | LAB | | | | [address];[place] | | | | | | [address] | | | | + + + + + + | Platelet | 345Comment: Testing | 150 - 400 K/uL | EXTERNAL | | | Count | performed at [facility];[address] | | LAB | | | Plasma | [address];[place] | | | | | | [address] | | | | + + + + + + | MPV | 8.4Comment: Testing | fl | EXTERNAL | | | | performed at [facility];[address] | | LAB | | | | [address];[place] | | | | | | [address] | | | | + + + + + + | Differentia | AUTOMATEDComment: | | EXTERNAL | | | l Type | Testing performed at | | LAB | | | | [facility];[address] | | | | | | [address];[place] [address] | | | | + + + + + + | % Segmented | 65.7Comment: Testing | % | EXTERNAL | | | | performed at [facility];[address] | | LAB | | | Neutrophils | [address];[place] | | | | | | [address] | | | | + + + + + + | % | 24.6Comment: Testing | % | EXTERNAL | | | Lymphocytes | performed at [facility];[address] | | LAB | | | | [address];[place] | | | | | | [address] | | | | + + + + + + | % Monocytes | 6.6Comment: Testing | % | EXTERNAL | | | | performed at [facility];[address] | | LAB | | | | [address];[place] | | | | | | [address] | | | | + + + + + + | % | 1.8Comment: Testing | % | EXTERNAL | | | Eosinophils | performed at [facility];[address] | | LAB | | | | [address];[place] | | | | | | [address] | | | | + + + + + + | % Basophils | 1.3Comment: Testing | % | EXTERNAL | | | | performed at [facility];[address] | | LAB | | | | [address];[place] | | | | | | [address] | | | | + + + + + + | Absolute | 7.7 (H)Comment: Testing | 1.9 - 7.4 K/uL | EXTERNAL | | | Segmented | performed at [facility];[address] | | LAB | | | Neutrophils | [address];[place] | | | | | | [address] | | | | + + + + + + | Absolute | 2.9Comment: Testing | 1.0 - 3.9 K/uL | EXTERNAL | | | Lymphocytes | performed at [facility];[address] | | LAB | | | | [address];[place] | | | | | | [address] | | | | + + + + + + | Absolute | 0.8Comment: Testing | 0 - 0.8 K/uL | EXTERNAL | | | Monocytes | performed at [facility];[address] | | LAB | | | | [address];[place] | | | | | | [address] | | | | + + + + + + | Absolute | 0.2Comment: Testing | 0 - 0.5 K/uL | EXTERNAL | | | Eosinophils | performed at [facility];[address] | | LAB | | | | [address];[place] | | | | | | [address] | | | | + + + + + + | Absolute | 0.1Comment: Testing | 0 - 0.1 K/uL | EXTERNAL | | | Basophils | performed at [facility];[address] | | LAB | | | | [address];[place] | | | | | | [address] | | | | + + + [...] + +---------+ + + Basic Metabolic Panel (10/31/2014 2:15 PM PST) + + + + + + | Component | Value | Ref Range | Performed | Pathologist | | | | | At | Signature | + + + + + + | Na | 140Comment: Testing | 135 - 143 | EXTERNAL | | | | performed at [facility];[address] | mmol/L | LAB | | | | [address];[place], [place] | | | | | | [address] | | | | + + + + + + | K | 4.0Comment: Testing | 3.5 - 4.9 | EXTERNAL | | | | performed at [facility];[address] | mmol/L | LAB | | | | [address];[place] | | | | | | [address] | | | | + + + + + + | Cl | 108Comment: Testing | 99 - 109 mmol/L | EXTERNAL | | | | performed at [facility];[address] | | LAB | | | | [address];[place] | | | | | | [address] | | | | + + + + + + | CO2 | 26Comment: Testing | 23 - 32 mmol/L | EXTERNAL | | | | performed at [facility];[address] | | LAB | | | | [address];[place] | | | | | | [address] | | | | + + + + + + | Anion Gap | 10Comment: Testing | 5 - 20 mmol/L | EXTERNAL | | | | performed at [facility];[address] | | LAB | | | | [address];[place] | | | | | | [address] | | | | + + + + + + | Glucose, | 95Comment: Testing | 65 - 99 mg/dL | EXTERNAL | | | Fasting | performed at [facility];[address] | | LAB | | | | [address];[place] | | | | | | [address] | | | | + + + + + + | BUN | 17Comment: Testing | 8 - 25 mg/dL | EXTERNAL | | | | performed at [facility];[address] | | LAB | | | | [address];[place] | | | | | | [address] | | | | + + + + + + | Creatinine | 0.92Comment: Testing | 0.70 - 1.30 | EXTERNAL | | | | performed at [facility];[address] | mg/dL | LAB | | | | [address];[place] | | | | | | [address] | | | | + + + + + + | BUN/Creatin | 19Comment: Testing | | EXTERNAL | | | ine Ratio | performed at [facility];[address] | | LAB | | | | [address];[place] | | | | | | [address] | | | | + + + + + + | Calcium | 8.4 (L)Comment: Testing | 8.5 - 10.5 | EXTERNAL | | | | performed at [facility];[address] | mg/dL | LAB | | | | [address];[place] | | | | | | [address] | | | | + + + [...] | | | | | | at [facility];[address] | | | | | | [place] [address] | | | | + + + + + + + + | Specimen | + + | Blood specimen | | (specimen) | + + + +---------+ + + | Performing | Address | City/State/Zipcode | Phone Number | | Organization | | | | + +---------+ + + | EXTERNAL LAB | | | | + +---------+ + + MRSA NAAT (10/31/2014 2:15 PM PST) + + | Specimen | + + | | + + + + + | Narrative | Performed At | + + + | [facility](NOSE) | EXTERNAL LAB | | Testing performed at [facility];[address] [place] [address];[place] [address] MRSA PCR | | | NEGATIVE Testing performed at | | | [address];[place] [address] | | + + + + +---------+ + + | Performing | Address | City/State/Zipcode | Phone Number | | Organization | | | | + +---------+ + + | EXTERNAL LAB | | | | + +---------+ + + documented in this encounter Visit Diagnoses Not on filedocumented in this encounter"
--- OUTSIDE RECORDS SUMMARY | ~2020-01-31 | XMS | Encounter Summary ---
Demographics + + + | Address | [address] | | | [place] [address] | + + + | Home Phone [...] Author | [facility] | | | and Alexana | + + + | Organization | [facility] | | | and [...] [place] | | | | | [address] | | + + + + + Care Team Providers + +------+ + | Care Buffing Wheel Operator Name | Role | Phone | [...] [address] | | | | | | ([facility]) | [place], [place] | | | | | | | [address] | | | | | | | Phone: | | | | | | | [phone] | | | | | | | Fax: | | | | | | | [phone] | | + + + + + [...] + + | 07/29/ | Hospital | [facility] | [place], | Intra-abdominal | | 2019 - | Encounter | [facility] [address] | ZAYDA Ernst [address] | abscess (HCC) | | | | [address] | [address] | (Primary Dx); | | 08/09/ | | [place], [place] | [place] [address] | Abdominal wall | | 2019 | | [address] | [phone] | abscess; History of | | | | [phone] | | ventral hernia | | | | | [place], | repair; History of | | | | | MD Michael [address] | allergy to | | | | | [address] | antibiotic agent; | | | | | [place] [address] | Abdominal pain, | | | | | [phone] | generalized; HTN | | | | | | (hypertension), | | | | | Kai Dunne DO | benign; History of | | | | | [address] | hernia repair; | | | | | [place] [address] | Gastroesophageal | | | | | [phone] | reflux disease, | | | | | | esophagitis presence | | | | | Elvi Bragg MD | not specified | | | | | [address] | | | | | | [place] [address] | | | | | | [phone] | | | | | | | | | | | | Marco Antonio Don MD | | | | | | [address] | | | | | | [place] [address] | | | | | | [phone] | | | | | | | [...] Value Units Date/Time Culture, Body Fluid Sterile [[id number]] (Abnormal) (Susceptibility) Collected: 07/30/199 Order Status: Completed [...] MIXED ANAEROBIC DEEPA RESULT Testing performed at [facility], [address] [place] [address] Susceptibility Escherichia coli (1) Antibiotic Interpretation Microscan [...] Sensitive SUSCEPTIBLE ANDREW Final Testing performed at [facility], [address] [place] [address] 6[address]92 MRSA NAAT [[id number]] Collected: 07/29/192256 Order Status: Completed Lab Status: Final result Updated: 07/30/193 Specimen: Tissue from Nares SOURCE: NARES(NOSE) Result NEGATIVE Comment: Testing performed at [facility];[address] [place] [address] Culture, Blood [[id number]] Collected: 07/29/192222 Order Status: Completed Lab Status: Final result Updated: 08/05/19605 Specimen: Peripheral Blood Special Requests RIGHT HAND Special Requests Testing performed at [facility];[address] [place] [address]643 RESULT NO GROWTH 6 DAYS RESULT Testing performed at [facility], [address] [place] [address] Comment: Testing performed at [facility], [address] [place] [address] 8[address] Culture, Blood [[id number]] Collected: 07/29/192215 Order Status: Completed Lab Status: Final result Updated: 08/05/19605 Specimen: Peripheral Blood Special Requests LEFT AC Special Requests Testing performed at [facility];[address] [place] [address] 85840 RESULT NO GROWTH 6 DAYS RESULT Testing performed at [facility], [address] [place] [address] 9[address] Comment: Testing performed at [facility], [address] [place] [address] 86825 Culture, Urine [[id number]] Collected: 07/29/192038 Order Status: Completed Lab Status: Final result Updated: 07/31/19 1140 Specimen: Urine, Clean Catch RESULT NO GROWTH RESULT Testing performed at [facility], [address] [place] [address] Comment: Testing performed at [facility], [address] [place] [address] 71852 Culture, Blood [[id number]] Collected: 07/29/192037 Order Status: Completed Lab Status: Final result Updated: 08/05/19605 Specimen: Peripheral Blood Special Requests LAC Special Requests Testing performed at [facility];[address] [place] [address] 47[address] RESULT NO GROWTH 6 DAYS RESULT Testing performed at [facility], [address] [place] [address] Comment: Testing performed at [facility], [address] [place] [address] 28751 Culture, Blood [[id number]] Collected: 07/29/19 1910 Order Status: Canceled Lab Status: No result Specimen: Peripheral Blood Influenza A and B RNA, NAAT [[id number]] Collected: 07/29/19 1656 Order Status: Completed Lab Status: Final result Updated: 07/29/19 1724 Influenza A NEGATIVE Influenza B NEGATIVE Comment: Testing performed by Molecular Methodology Testing performed at [facility];[address] [place] [address];[place] [address] Flu Swab Collection [[id number]] Collected: 07/29/19 1630 Order Status: Completed Lab Status: Final result Updated: 07/29/19 1637 Specimen: Tissue from Nasopharynx Collection SPECIMEN RECEIVED IN LAB Comment: Testing performed at [facility];[address] [place] [address] 06897 Recent Radiology Results Recent Results (from the [...] Mild facet arthropathy. Mild spinal canal stenosis. Zfbp-gc-iitxqtxq lateral recess stenosis. Mild bilateral neural foraminal stenosis. L4-5: The disc is preserved. Minimal disc bulge. Msul-dh-eampokay facet arthropathy. No significant spinal canal stenosis. Fmyj-jm-jaruodfv left and mild right neural foraminal stenosis. L5-S1: The disc is preserved. Minimal disc bulge. Moderate to severe facet arthropathy, left worse than right with left facet joint effusion and associated periarticular edema.. No significant spinal canal stenosis. Stnl-rr-bkyxdlhm bilateral neural foraminal stenosis. Paraspinal musculature and paravertebral soft tissues: Normal. Impression 1. No substantial interval change. 2. No new disc herniation or high-grade stenosis. 3. Mild spinal canal stenosis at L2-3 and L3-4. 4. Multilevel akqv-rl-rzemmgwa neural foraminal stenosis. 5. Moderate to severe [...] up: Allison Fairchild NP [address] [facility] [address] [facility] [address] Schedule an appointment as soon as possible for a visit in 1 week Jamie Bentley MD [address] [facility] 101 [facility] [phone] Schedule an appointment as soon as possible for a visit in 1 week possible infected mesh Shannan Pastrana MD 8[address] [facility] [phone] Schedule an appointment as soon as possible [...] Bragg MD - 08/08/2019 6:04 PM PST [facility] Service: Hospitalist Progress Note Hospital Day: [...] Mild facet arthropathy. Mild spinal canal stenosis. Uprh-rs-btwvqaah lateral recess stenosis. Mild bilateral neural foraminal stenosis. L4-5: The disc is preserved. Minimal disc bulge. Xtcd-xo-oasitney facet arthropathy. No significant spinal canal stenosis. Giql-fh-zwmbmevd left and mild right neural foraminal stenosis. L5-S1: The disc is preserved. Minimal disc bulge. Moderate to severe facet arthropathy, left worse than right with left facet joint effusion and associated periarticular edema.. No significant spinal canal stenosis. Phxa-df-xcohgrgt bilateral neural foraminal stenosis. Paraspinal musculature and paravertebral soft tissues: Normal. Impression 1. No substantial interval change. 2. No new disc herniation or high-grade stenosis. 3. Mild spinal canal stenosis at L2-3 and L3-4. 4. Multilevel pmnu-ru-xzqyxdjs neural foraminal stenosis. 5. Moderate to severe [...] Mild facet arthropathy. Mild spinal canal stenosis. Dmbp-mg-ofapcjgt lateral recess sten osis. Mild bilateral neural foraminal stenosis. L4-5: The disc is preserved. Minimal disc b ulge. Gjgo-bu-arphtngz facet arthropathy. No significant spinal canal stenosis. Mild-to-mo derate left and mild right neural foraminal stenosis. L5-S1: The disc is preserved. Minimal disc bulge. Moderate to severe facet arthropathy, left worse than right with left facet luis miguel nt effusion and associated periarticular edema.. No significant spinal canal stenosis. Mil j-gk-cituftgu bilateral neural foraminal stenosis. Paraspinal musculature and paravertebral soft tissues: Normal. 1. No substantial interval change. 2. No new disc herniation or high-grade stenosis. 3. Mil d spinal canal stenosis at L2-3 and L3-4. 4. Multilevel nlya-bd-tionnuiu neural foraminal st enosis. 5. Moderate to [...] this note might be different from the [facility] Service: Infectious Diseases Progress Note Hospital [...] intact. Follows commands. LABS: MICRO Culture, Blood [[id number]] Collected: 07/29/192215 Order Status: Completed Specimen: Peripheral Blood Updated: 08/05/19605 Special Requests LEFT AC Special Requests Testing performed at [facility];[address] [place] [address] 32740 RESULT NO GROWTH 6 DAYS RESULT Testing performed at [facility], [address] [place] [address] Comment: Testing performed at [facility], [address] [place] [address] Culture, Blood [[id number]] Collected: 07/29/192222 Order Status: Completed Specimen: Peripheral Blood Updated: 08/05/19605 Special Requests RIGHT HAND Special Requests Testing performed at [facility];[address] [place] [address] 59342 RESULT NO GROWTH 6 DAYS RESULT Testing performed at [facility], [address] [place] [address] 660[address] Comment: Testing performed at [facility], [address] [place] [address] 04150 Culture, Blood [[id number]] Collected: 07/29/192037 Order Status: Completed Specimen: Peripheral Blood Updated: 08/05/19 0606 Special Requests LAC Special Requests Testing performed at [facility];[address] [place] [address] 60908 RESULT NO GROWTH 6 DAYS RESULT Testing performed at [facility], [address] [place] [address] 31469 Comment: Testing performed at [facility], [address] [place] [address] 73380 Culture, Blood [[id number]] Collected: 07/29/191909 Order Status: Canceled Specimen: Peripheral Blood Culture, Body Fluid Sterile [[id number]] (Abnormal) Collected: 07/30/19 112 Order Status: Completed Specimen: Body Fluid from Abscess Updated: 08/03/1938 Gram Stain Result -- 4+ WBC'S SEEN Gram Stain Result -- 1+ GRAM POSITIVE COCCI Gram Stain Result -- 3+ GRAM NEGATIVE RODS RESULT --Abnormal 2+ ESCHERICHIA COLI Abnormal RESULT -- 2+ MIXED GRAM POSITIVE DEEPA RESULT -- 2+ MIXED ANAEROBIC DEEPA RESULT Testing performed at [facility], [address] [place] [address] 78289 Susceptibility Escherichia coli (1) Antibiotic Interpretation Vitek [...] Sensitive SUSCEPTIBLE ANDREW Final Testing performed at [address] [address] Culture, Urine [[id number]] Collected: 07/29/192038 Order Status: Completed Specimen: Urine, Clean Catch Updated: 07/31/19 1140 RESULT NO GROWTH RESULT Testing performed at [facility], [address] [place] [address] Comment: Testing performed at [facility], [address] [place] [address] Flu Swab Collection [[id number]] Collected: 07/29/19 1630 Order Status: Completed Specimen: Tissue from Nasopharynx Updated: 07/29/19 1637 Collection SPECIMEN RECEIVED IN LAB Comment: Testing performed at [facility];[address] [place] [address] 70579 Influenza A and B RNA, NAAT [[id number]] Collected: 07/29/19 1656 Order Status: Completed Updated: 07/29/19 1724 Influenza A NEGATIVE Influenza B NEGATIVE Comment: Testing performed by Molecular Methodology Testing performed at [facility];[address] [place] [address] 71888 MRSA NAAT [[id number]] Collected: 07/29/19 2257 Order Status: Completed Specimen: Tissue from Nares Updated: 07/30/19 0023 SOURCE: NARES(NOSE) Result NEGATIVE Comment: Testing performed at [facility];[address] [place] [address]12 All labs were reviewed.Data: Recent Results (from [...] under the care of Dr. Jamie Bentley, [facility] surgery -He had been previously under the care of Dr. Rd Busby, [facility] but he and his jenifer pinedo indicate wanting to continue Infectious Diseases under [facility] at this time -Patient is not septic -He has history of penicillin allergy; although anaphylaxis is listed as a reaction in ma s chart, he really does not know [...] outpatient in 2 wee ks. Dictation software, [employer] [place], used which may contain error for similar sounding words even af ter review. Personal communication requested for any clarification. Portions of this chart may have been copied from previous notes for continuity of care purp ose Shannan Pastrana MD Infectious Diseases 08/07/2019 an, Brittny blair MD - 08/07/2019 3:18 PM PSTFormatting of this note might be different from the origin [facility] Service: Hospitalist Progress Note Hospital Day: LOS: [...] Mild facet arthropathy. Mild spinal canal stenosis. Vtph-ny-xcvocmmr lateral recess stenosis. Mild bilateral neural foraminal stenosis. L4-5: The disc is preserved. Minimal disc bulge. Awsq-vp-movvxzoc facet arthropathy. No significant spinal canal stenosis. Ftnr-si-hxnkpptf left and mild right neural foraminal stenosis. L5-S1: The disc is preserved. Minimal disc bulge. Moderate to severe facet arthropathy, left worse than right with left facet joint effusion and associated periarticular edema.. No significant spinal canal stenosis. Nbrj-kq-ktmvqffh bilateral neural foraminal stenosis. Paraspinal musculature and paravertebral soft tissues: Normal. Impression 1. No substantial interval change. 2. No new disc herniation or high-grade stenosis. 3. Mild spinal canal stenosis at L2-3 and L3-4. 4. Multilevel jpqe-ju-xdxtrzak neural foraminal stenosis. 5. Moderate to severe [...] 58 y.o. male patient who presented to [facility] with a diagn osis of abdominal [...] with stent placement in iliac artery, on oss architect cheri anticoagulation, TBI, hx C.Diff colitis, HCV infection, anxiety and depression, and mult iple abdominal surgeries to include 3 hernia repairs, [facility]. -07/30/19:CT guided abscess [...] plan was discussed with Dr. Diaz is professional bondsman for the acute care s urgery service. [...] HTN (hypertension), benign Signed: Shraddha Majano PA-C [facility] Trauma and Acute Care Surgery 08/07/2019 Portions [...] Farley MD - 08/06/2019 11:49 AM PST [facility] Service: Hospitalist Progress Note Hospital Day: [...] Elvi Farley MD - 3:07 PM PST [facility] Service: Hospitalist Progress Note Hospital Day: [...] they have no other real support in [place] where the y live. Teodora expresses deep katty that has gotten her through very difficult times. She is grateful for all the care and compassion form all the staff at [facility]. She sees blessings i n the midst [...] might be di fferent from the original. [facility] Service: Infectious Diseases Progress Note Hospital [...] LEFT AC Special Requests Testing performed at [facility];[address] [place] [address] 24466 RESULT NO GROWTH 6 DAYS RESULT Testing performed at [facility], [address] [place] [address] 1960[address] Comment: Testing performed at [facility], [address] [place] [address] 6[address] Culture, Blood [[id number]] Collected: 07/29/192222 Order Status: Completed Specimen: Peripheral Blood Updated: 08/05/19605 Special Requests RIGHT HAND Special Requests Testing performed at [facility];[address] [place] [address]279 RESULT NO GROWTH 6 DAYS RESULT Testing performed at [facility], [address] [place] [address] Comment: Testing performed at [facility], [address] [place] [address] 35370 Culture, Blood [[id number]] Collected: 07/29/192037 Order Status: Completed Specimen: Peripheral Blood Updated: 08/05/19605 Special Requests LAC Special Requests Testing performed at [facility];[address] [place] [address] 91674 RESULT NO GROWTH 6 DAYS RESULT Testing performed at [facility], [address] [place] [address] 61019 Comment: Testing performed at [facility], [address] [place] [address]879 Culture, Blood [[id number]] Collected: 07/29/19 1910 Order Status: Canceled Specimen: Peripheral Blood Culture, Body Fluid Sterile [[id number]] (Abnormal) Collected: 07/30/19 1129 Order Status: Completed Specimen: Body Fluid from Abscess Updated: 08/03/19 0638 Gram Stain Result -- 4+ WBC'S SEEN Gram Stain Result -- 1+ GRAM POSITIVE COCCI Gram Stain Result -- 3+ GRAM NEGATIVE RODS RESULT --Abnormal 2+ ESCHERICHIA COLI Abnormal RESULT -- 2+ MIXED GRAM POSITIVE DEEPA RESULT -- 2+ MIXED ANAEROBIC DEEPA RESULT Testing performed at [facility], [address] [place] [address] 05373 Susceptibility Escherichia coli (1) Antibiotic Interpretation Vitek [...] Sensitive SUSCEPTIBLE ANDREW Final Testing performed at [facility], [address] [place] [address] 31223 Culture, Urine [[id number]] Collected: 07/29/192038 Order Status: Completed Specimen: Urine, Clean Catch Updated: 07/31/19 1140 RESULT NO GROWTH RESULT Testing performed at [facility], [address] [place] [address] 02320 Comment: Testing performed at [facility], [address] [place] [address] 38245 Flu Swab Collection [[id number]] Collected: 07/29/19 1630 Order Status: Completed Specimen: Tissue from Nasopharynx Updated: 07/29/19 1637 Collection SPECIMEN RECEIVED IN LAB Comment: Testing performed at [facility];[address] [place] [address] 62351 Influenza A and B RNA, NAAT [[id number]] Collected: 07/29/19 1656 Order Status: Completed Updated: 07/29/19 1724 Influenza A NEGATIVE Influenza B NEGATIVE Comment: Testing performed by Molecular Methodology Testing performed at [facility];[address] [place] [address] 73412 MRSA NAAT [[id number]] Collected: 07/29/19 2257 Order Status: Completed Specimen: Tissue from Nares Updated: 07/30/19 0023 SOURCE: NARES(NOSE) Result NEGATIVE Comment: Testing performed at [facility];[address] [place] [address];[place] [address] All labs were reviewed.Data: Recent Results (from [...] the c are of Dr. Jamie Bentley, [facility] surgery -He had been previously under the care of Dr. Rd Busby, [facility] but he and his travis thao indicate wanting to continue Infectious Diseases under [facility] at this time -Patient is not septic [...] planned. Will place PICC line. Dictation software, [employer] [place], used which may contain error for similar sounding words even af ter review. Personal communication requested for any clarification. Portions of this chart may have been copied from previous notes for continuity of care purp yun Pastrana MD Infectious Diseases 08/05/2019 Roderick Flores, AUTOMOTIVE TEACHER - 08/05/2019 8:30 AM PSTFormatting of this note might be different from the leidy ginal. Progress Note Hospital Day: LOS: 7 days Post-Op Day: * No surgery found * Subjective This is a 58 y.o. male patient who presented to [facility] with a diagn osis of abdominal wall infection. 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 His WBC continues to be stable at 7.27, he has been afebrile and hemodynamically stable. D enies to have cream looking drainage and gas in drainage back. Assessment and Plan 58 year old male with PMH PAD s/p angioplasty with stent placement in iliac artery, on oss architect cheri anticoagulation, TBI, hx C.Diff colitis, HCV infection, anxiety and depression, and mult iple abdominal surgeries to include 3 hernia repairs, [facility]. -07/30/19:CT guided abscess [...] injury HTN (hypertension), benign Signed: BECKIE Mendenhall [facility] Trauma and Acute Care Surgery Portions of [...] Jennifer, MD - 08/04/2019 3:08 PM PST [facility] Service: Hospitalist Progress Note Hospital Day: [...] Bragg MD 08/04/2019 3:08 PM Harshad Flores, [facility] - 08/04/2019 10:00 AM PST Progress Note Hospital Day: LOS: 6 days Post-Op Day: * No surgery found * Subjective This is a 58 y.o. male patient who presented to [facility] with a diagn osis of abdominal [...] with stent placement in iliac artery, on oss architect cheri anticoagulation, TBI, hx C.Diff colitis, HCV infection, anxiety and depression, and mult iple abdominal surgeries to include 3 hernia repairs, presents to [facility] with abdominal wall i nfection/abscess. -07/30/19: [...] was discussed with Dr. Valencia who is professional bondsman for the acute care surgery service. Scheduled [...] injury HTN (hypertension), benign Signed: Harshad Bar [facility] Trauma and Acute Care Surgery Portions [...] might be different fr om the original. [facility] Service: Hospitalist Progress Note Hospital Day: [...] Funk MD - 08/03/2019 11:25 AM PST [facility] Service: Infectious Disease Progress Note Hospital [...] COCCI Gram Stain Result Testing performed at [facility];[address] [place] [address];[place] [address] RESULT Abnormal 2+ ESCHERICHIA COLI RESULT Abnormal 2+ STREPTOCOCCUS GORDONII RESULT Abnormal 2+ PREVOTELLA ORALIS [facility] Susceptibility Escherichia coli ANDREW Ampicillin SUSCEPTIBLE [...] Vancomycin SUSCEPTIBLE Sensitive1 1 Testing performed at [facility], [address] [place] [address] Specimen Collected: 07/04/19 19:30 Last Resulted: 07/09/19 [...] the c are of Dr. Jamie Bentley, [facility] surgery -He had been previously under the care of Dr. Rd Busby, [facility] but he and his travis thao indicate wanting to continue Infectious Diseases under [facility] at this time -Patient is not septic [...] Farley MD - 08/02/2019 2:31 PM PST [facility] Service: Hospitalist Progress Note Hospital Day: [...] abdomen after the administration of 100 mL Fprggnrof655 intravenous contrast. Mu ltiplanar reconstructions. At least [...] without difficulty. Three-way stopcock was placed and entry level staff accountant informed to flush twice daily with 10 [...] M D - 08/01/2019 12:04 PM PST [facility] Service: Infectious Disease Progress Note Hospital [...] COCCI Gram Stain Result Testing performed at [facility];[address] [place] [address] 08096 RESULT Abnormal 2+ ESCHERICHIA COLI RESULT Abnormal 2+ STREPTOCOCCUS GORDONII RESULT Abnormal 2+ PREVOTELLA ORALIS [facility] Susceptibility Escherichia coli ANDREW Ampicillin SUSCEPTIBLE [...] Vancomycin SUSCEPTIBLE Sensitive1 1 Testing performed at [facility], [address] [place] [address] 16165 Specimen Collected: 07/04/19 19:30 Last Resulted: 07/09/19 [...] the c are of Dr. Jamie Bentley, [facility] [facility] -He had been previously under the care of Dr. Rd Busby, [facility] ID but he and his travis thao indicate wanting to continue Infectious Diseases under [facility] at this time -Patient is not septic [...] to inpt room 424-1 via stretcher by rn transport. Electronically signed by ELLIE Mcdonald 07/30/2019 11:04 AM Farhan Ortega [facility] - 07/29/2019 8:08 PM PSTRx Admission Med ication History Note I have reviewed the medication history for appropriate doses obtained by: ED Pharmacist After reviewing the home medication list : I agree with the home medications list. Confirmed VISUAL MERCHANDISER medications with patient and insurance fill history. Adjusted VISUAL MERCHANDISER medications according to the printer technician note below. - removed omeprazole. Family [...] D?MRN: | | | | | | [id number] | | | [id number] | | | riteri | | | [...] | | | yMedic | | | al/Miguelito | | | gical3 | | | /4/19 | | | 12:00 | | | AM | | | [facility] | | | [place] | | | y | | | [...] | | | St. | | | [place] | | | y | | | [...] | | | St. | | | [place] | | | y H. | | [...] | | | St. | | | [place] | | | y H. | | [...] | | | St. | | | [place] | | | y H. | | [...] | | | St. | | | [place] | | | y H. | | [...] | | | S, | | | PENSIONHOLDER INFORMATION CLERK-C | | | Nurse | | | [...] | | | | performed at [facility], [address] | | | | | | [facility], | | | | | | [place] [address] | | | | + + + + + + + + | Specimen | + + | Blood | + + + + + + + | Performing | Address | City/State/Zipcode | Phone Number | | Organization | | | | + + + + + | [facility] | [address] | [place] [address] | [phone] | + + + + + CBC [...] 0.09Comment: Testing | 0.00 - 0.10 | [facility] | | | Absolute | performed at [facility];[address] | [address] | LABORATORY | | | | [address];[place], [place] | | | | | | [address] | | | | + + + + + + + + | Specimen | + + | Blood | + + + + + + + | Performing | Address | City/State/Zipcode | Phone Number | | Organization | | | | + + + + + | [facility] | [address] | [place] [address] | [phone] | + + + + + CBC [...] | | Absolute | performed at [facility], [address] | [address] | LABORATORY | | | | [address], | | | | | | [place] [address] | | | | + + + + + + + + | Specimen | + + | Blood | + + + + + + + | Performing | Address | City/State/Zipcode | Phone Number | | Organization | | | | + + + + + | [facility] | [address] | [place] [address] | [phone] | + + + + + Basic [...] | | | | performed at [facility], [address] | | | | | | [address] [facility], | | | | | | [place] [address] | | | | + + + + + + + + | Specimen | + + | Blood | + + + + + + + | Performing | Address | City/State/Zipcode | Phone Number | | Organization | | | | + + + + + | [facility] | [address] | [place] [address] | [phone] | + + + + + MRI [...] and L3-4. | | | 4. Multilevel ttib-ru-zrmvegil neural foraminal stenosis. 5. | | | [...] | | | Mild spinal canal stenosis. Aozn-qe-accvjovm lateral recess | | | stenosis. Mild bilateral neural foraminal stenosis. L4-5: The | | | disc is preserved. Minimal disc bulge. Fico-dr-gbxhnuep facet | | | arthropathy. No significant spinal canal stenosis. Nnek-ry-kcccglxo | | | left and mild right neural foraminal stenosis. L5-S1: The disc is | | | preserved. Minimal disc bulge. Moderate to severe facet | | | arthropathy, left worse than right with left facet joint effusion and | | | associated periarticular edema.. No significant spinal canal | | | stenosis. Yzdf-sp-ssnhtewg bilateral neural foraminal stenosis. | | | [...] arthropathy. Mild spinal canal stenosis. | | Jcmw-gy-jbkelbfo lateral recess stenosis. Mild bilateral neural | | foraminal stenosis. | | | | L4-5: The disc is preserved. Minimal disc bulge. Zxwl-pz-zldhdndu | | facet arthropathy. No significant spinal canal stenosis. | | Smjl-gv-xylonqfg left and mild right neural foraminal stenosis. | | | | L5-S1: The disc is preserved. Minimal disc bulge. Moderate to severe | | facet arthropathy, left worse than right with left facet joint effusion | | and associated periarticular edema.. No significant spinal canal | | stenosis. Psqd-oo-dvxwhwnk bilateral neural foraminal stenosis. | | | | Paraspinal musculature and paravertebral soft tissues: Normal. | | | | IMPRESSION: | | 1. No substantial interval change. | | 2. No new disc herniation or high-grade stenosis. | | 3. Mild spinal canal stenosis at L2-3 and L3-4. | | 4. Multilevel word-zk-kjyhvnyw neural foraminal stenosis. | | 5. Moderate [...] Testing | 1.7 - 2.4 mg/dL | [facility] | | | | performed at [facility], [address] | | LABORATORY | | | | [place], | | | | | | [place] [address] | | | | + + + + + + + + | Specimen | + + | Blood | + + + + + + + | Performing | Address | City/State/Zipcode | Phone Number | | Organization | | | | + + + + + | [facility] | [address] | [place] [address] | [phone] | + + + + + CBC [...] | | Absolute | performed at [facility], [address] | [address] | LABORATORY | | | | [place], | | | | | | [place] [address] | | | | + + + + + + + + | Specimen | + + | Blood | + + + + + + + | Performing | Address | City/State/Zipcode | Phone Number | | Organization | | | | + + + + + | [facility] | [address] | [place] [address] | [phone] | + + + + + Basic [...] | | | | | | MDRD [facility] traceable | | | | | | equation.Testing | | | | | | performed at [facility], [address] | | | | | | [facility], | | | | | | [place] [address] | | | | + + + + + + + + | Specimen | + + | Blood | + + + + + + + | Performing | Address | City/State/Zipcode | Phone Number | | Organization | | | | + + + + + | [facility] | [address] | [place] [address] | [phone] | + + + + + Basic [...] | >60Comment: GFR <60: | >60 | [facility] | | | GFR | CHRONIC [...] | | | | | | MDRD [facility] traceable | | | | | | equation.Testing | | | | | | performed at [facility], [address] | | | | | | [facility], | | | | | | [place] [address] | | | | + + + + + + + + | Specimen | + + | Blood | + + + + + + + | Performing | Address | City/State/Zipcode | Phone Number | | Organization | | | | + + + + + | [facility] | [address] | [place] [address] | [phone] | + + + + + CBC [...] | | Absolute | performed at [facility], [address] | [address] | LABORATORY | | | | [facility], | | | | | | [place] [address] | | | | + + + + + + + + | Specimen | + + | Blood | + + + + + + + | Performing | Address | City/State/Zipcode | Phone Number | | Organization | | | | + + + + + | [facility] | [address] | [place] [address] | [phone] | + + + + + Basic [...] | >60Comment: GFR <60: | >60 | [facility] | | | GFR | CHRONIC [...] | | | | | | MDRD [facility] traceable | | | | | | equation.Testing | | | | | | performed at [facility], [address] | | | | | | [facility], | | | | | | [place] [address] | | | | + + + + + + + + | Specimen | + + | Blood | + + + + + + + | Performing | Address | City/State/Zipcode | Phone Number | | Organization | | | | + + + + + | [facility] | [address] | [place] [address] | [phone] | + + + + + CBC [...] | | Absolute | performed at [facility], [address] | [address] | LABORATORY | | | | [place], | | | | | | [place] [address] | | | | + + + + + + + + | Specimen | + + | Blood | + + + + + + + | Performing | Address | City/State/Zipcode | Phone Number | | Organization | | | | + + + + + | [facility] | [address] | [place] [address] | [phone] | + + + + + Comprehensive [...] | | | | performed at [facility], [address] | | | | | | [place] [address], | | | | | | [place] [address] | | | | + + + + + + + + | Specimen | + + | Blood | + + + + + + + | Performing | Address | City/State/Zipcode | Phone Number | | Organization | | | | + + + + + | [facility] | [address] | [place] [address] | [phone] | + + + + + CBC [...] | | | | | | [place] [address] | | | | + + + + + + + + | Specimen | + + | Blood | + + + + + + + | Performing | Address | City/State/Zipcode | Phone Number | | Organization | | | | + + + + + | [facility] | [address] | [place] [address] | [phone] | + + + + + Magnesium (08/04/2019 4:35 AM PST) + + + + + + | Component | Value | Ref Range | Performed | Pathologist | | | | | At | Signature | + + + + + + | Magnesium | 2.0Comment: Testing | 1.7 - 2.4 mg/dL | [facility] | | | | performed at [facility], [address] | | LABORATORY | | | | [place], | | | | | | [place] [address] | | | | + + + + + + + + | Specimen | + + | Blood | + + + + + + + | Performing | Address | City/State/Zipcode | Phone Number | | Organization | | | | + + + + + | [facility] | [address] | [place] [address] | [phone] | + + + + + Comprehensive [...] | | | | performed at [facility], [address] | | | | | | [address] [facility], | | | | | | [place] [address] | | | | + + + + + + + + | Specimen | + + | Blood | + + + + + + + | Performing | Address | City/State/Zipcode | Phone Number | | Organization | | | | + + + + + | [facility] | [address] | [place] [address] | [phone] | + + + + + CBC [...] 0.10Comment: Testing | 0.00 - 0.10 | [facility] | | | Absolute | performed at [facility], [address] | [address] | LABORATORY | | | | [address], | | | | | | [place] [address] | | | | + + + + + + + + | Specimen | + + | Blood | + + + + + + + | Performing | Address | City/State/Zipcode | Phone Number | | Organization | | | | + + + + + | [facility] | [address] | [place] [address] | [phone] | + + + + + CT [...] Testing | 2.3 - 4.8 mg/dL | [facility] | | | | performed at [facility] | | LABORATORY | | | | [address] [facility];[place], [place] | | | | | | [address] | | | | + + + + + + + + | Specimen | + + | Blood | + + + + + + + | Performing | Address | City/State/Zipcode | Phone Number | | Organization | | | | + + + + + | [facility] | [address] | [place] [address] | [phone] | + + + + + Magnesium (08/02/2019 4:46 AM PST) + + + + + + | Component | Value | Ref Range | Performed | Pathologist | | | | | At | Signature | + + + + + + | Magnesium | 1.7Comment: Testing | 1.7 - 2.4 mg/dL | [facility] | | | | performed at [facility];[address] | | LABORATORY | | | | [address];[place] | | | | | | [address] | | | | + + + + + + + + | Specimen | + + | Blood | + + + + + + + | Performing | Address | City/State/Zipcode | Phone Number | | Organization | | | | + + + + + | [facility] | [address] | [place] [address] | [phone] | + + + + + Basic [...] 8.4 (L) | 8.5 - 10.5 | [facility] | | | | | mg/dL | LABORATORY | | + + + + + + | Estimated | >60Comment: GFR <60: | >60 | [facility] | | | GFR | CHRONIC [...] | | | | | | MDRD [facility] traceable | | | | | | equation.Testing | | | | | | performed at [facility] | | | | | | [facility];[place], [place] | | | | | | [address] | | | | + + + + + + + + | Specimen | + + | Blood | + + + + + + + | Performing | Address | City/State/Zipcode | Phone Number | | Organization | | | | + + + + + | [facility] | [address] | [place] [address] | [phone] | + + + + + CBC [...] | | | Absolute | performed at [facility];[address] | [address] | LABORATORY | | | | [address];[place], [place] | | | | | | [address] | | | | + + + + + + + + | Specimen | + + | Blood | + + + + + + + | Performing | Address | City/State/Zipcode | Phone Number | | Organization | | | | + + + + + | [facility] | [address] | [place] [address] | [phone] | + + + + + Basic [...] | >60Comment: GFR <60: | >60 | [facility] | | | GFR | CHRONIC [...] | | | | | | MDRD [facility] traceable | | | | | | equation.Testing | | | | | | performed at [facility], [address] | | | | | | [facility], | | | | | | [place] [address] | | | | + + + + + + + + | Specimen | + + | Blood | + + + + + + + | Performing | Address | City/State/Zipcode | Phone Number | | Organization | | | | + + + + + | [facility] | [address] | [place] [address] | [phone] | + + + + + CBC [...] | | Absolute | performed at [facility], [address] | [address] | LABORATORY | | | | [facility] [place], | | | | | | [place] [address] | | | | + + + + + + + + | Specimen | + + | Blood | + + + + + + + | Performing | Address | City/State/Zipcode | Phone Number | | Organization | | | | + + + + + | [facility] | [address] | [place] [address] | [phone] | + + + + + Basic [...] | >60Comment: GFR <60: | >60 | [facility] | | | GFR | CHRONIC [...] | | | | | | MDRD [facility] traceable | | | | | | equation.Testing | | | | | | performed at [facility], [address] | | | | | | [facility], | | | | | | [place] [address] | | | | + + + + + + + + | Specimen | + + | Blood | + + + + + + + | Performing | Address | City/State/Zipcode | Phone Number | | Organization | | | | + + + + + | [facility] | [address] | [place] [address] | [phone] | + + + + + CBC [...] | | Absolute | performed at [facility], [address] | K/u[address] | LABORATORY | | | | [place], | | | | | | [place] [address] | | | | + + + + + + + + | Specimen | + + | Blood | + + + + + + + | Performing | Address | City/State/Zipcode | Phone Number | | Organization | | | | + + + + + | [facility] | [address] | [place] [address] | [phone] | + + + + + Culture, [...] | LABORATORY | | | | Blvd, [place], [place] | | | | | | [address] | | | | + + + [...] Comment: Testing | | | performed at [facility], | | | [address] [facility] | | | [place] | | | [address] | +---+ + + + + + + | Performing | Address | City/State/Zipcode | Phone Number | | Organization | | | | + + + + + | [facility] | [address] | [place] [address] | [phone] | + + + + + CT [...] and culture. A | | | 12 Barbadian locking pigtail catheter was placed. Signed by: [...] collection and the tract dilated. A 12 Barbadian locking pigtail | | | catheter is [...] collection and the tract dilated. A 12 Barbadian locking pigtail | | catheter is then [...] stain and culture. A 12 | | Barbadian locking pigtail catheter was placed. | | [...] | | | Absolute | performed at [facility];[address] | [address] | LABORATORY | | | | [address];[place] | | | | | | [address] | | | | + + + + + + + + | Specimen | + + | | + + + + + + + | Performing | Address | City/State/Zipcode | Phone Number | | Organization | | | | + + + + + | [facility] | [address] | [place] [address] | [phone] | + + + + + PTT (07/30/2019 4:37 AM PST) + + + + + + | Component | Value | Ref Range | Performed | Pathologist | | | | | At | Signature | + + + + + + | PTT | 20 (L)Comment: Testing | 23 - 32 seconds | [facility] | | | | performed at [facility];[address] | | LABORATORY | | | | [address];[place] | | | | | | [address] | | | | + + + + + + + + | Specimen | + + | Blood | + + + + + + + | Performing | Address | City/State/Zipcode | Phone Number | | Organization | | | | + + + + + | [facility] | [address] | [place] [address] | [phone] | + + + + + Protime [...] | performed at [facility] | | | | | | [address] [facility];[place], [place] | | | | | | [address] | | | | + + + + + + + + | Specimen | + + | Blood | + + + + + + + | Performing | Address | City/State/Zipcode | Phone Number | | Organization | | | | + + + + + | [facility] | [address] | [place] [address] | [phone] | + + + + + Comprehensive [...] | >60Comment: GFR <60: | >60 | [facility] | | | GFR | CHRONIC [...] | | | | | | MDRD [facility] traceable | | | | | | equation.Testing | | | | | | performed at [facility], [address] | | | | | | [facility], | | | | | | [place] [address] | | | | + + + + + + + + | Specimen | + + | Blood | + + + + + + + | Performing | Address | City/State/Zipcode | Phone Number | | Organization | | | | + + + + + | [facility] | [address] | [place] [address] | [phone] | + + + + + Lactic Acid (07/30/2019 12:54 AM PST) + + + + + + | Component | Value | Ref Range | Performed | Pathologist | | | | | At | Signature | + + + + + + | Lactate, | 1.1Comment: Testing | 0.4 - 2.0 | [facility] | | | Serum | performed at [facility];[address] | mmol/L | LABORATORY | | | | [address];[place] | | | | | | [address] | | | | + + + + + + + + | Specimen | + + | Blood | + + + + + + + | Performing | Address | City/State/Zipcode | Phone Number | | Organization | | | | + + + + + | [facility] | [address] | [place] [address] | [phone] | + + + + + MRSA [...] [facility] | | | | performed at [facility];[address] | | LABORATORY | | | | [address];[place], [place] | | | | | | [address] | | | | + + + + + + + + | Specimen | + + | Tissue - Both | | anterior nares (body | | structure) | + + + + + + + | Performing | Address | City/State/Zipcode | Phone Number | | Organization | | | | + + + + + | [facility] | [address] | [place] [address] | [phone] | + + + + + Culture, [...] | [facility] | | | Requests | [facility];[address] | | LABORATORY | | | | [address];[place] [address] | | | | + + + + + + | RESULT | NO GROWTH 6 DAYS | | [facility] | | | | | | LABORATORY | | + + + + + + | RESULT | Testing performed at | | [facility] | | | | [facility], [address] | | LABORATORY | | | | [place] | | | | | | [address]Ytulwuq: Testing | | | | | | performed at [facility], [address] | | | | | | [address] [place] | | | | | | [address] | | | | + + + + + + + + | Specimen | + + | Blood - Peripheral | | blood specimen | | (specimen) | + + + + + + + | Performing | Address | City/State/Zipcode | Phone Number | | Organization | | | | + + + + + | [facility] | [address] | [place] [address] | [phone] | + + + + + Lactic Acid (07/29/2019 10:16 PM PST) + + + + + + | Component | Value | Ref Range | Performed | Pathologist | | | | | At | Signature | + + + + + + | Lactate, | 1.3Comment: Testing | 0.4 - 2.0 | [facility] | | | Serum | performed at [facility];[address] | mmol/L | LABORATORY | | | | [address];[place] | | | | | | [address] | | | | + + + + + + + + | Specimen | + + | Blood | + + + + + + + | Performing | Address | City/State/Zipcode | Phone Number | | Organization | | | | + + + + + | [facility] | [address] | [place] [address] | [phone] | + + + + + Culture, [...] Special | Testing performed at | | [facility] | | | Requests | [facility];[address] | | LABORATORY | | | | [address];[place] [address] | | | | + + + + + + | RESULT | NO GROWTH 6 DAYS | | [facility] | | | | | | [facility] | | + + + + + + | RESULT | Testing performed at | | [facility] | | | | [facility], [address] [facility] | | LABORATORY | | | | [place] | | | | | | [address]Hvyayyv: Testing | | | | | | performed at [facility], [address] | | | | | | [place] | | | | | | [address] | | | | + + + + + + + + | Specimen | + + | Blood - Peripheral | | blood specimen | | (specimen) | + + + + + + + | Performing | Address | City/State/Zipcode | Phone Number | | Organization | | | | + + + + + | [facility] | [address] | [place] [address] | [phone] | + + + + + Culture, [...] RESULT | Testing performed at | | [facility] | | | | [facility], [address] [facility] | | LABORATORY | | | | [address], [place], [place] | | | | | | [address]Hucgvjg: Testing | | | | | | performed at [facility], [address] | | | | | | [facility], | | | | | | [place] [address] | | | | + + + [...] [facility] | [address] | [place] [address] | [phone] | + + + + + Urinalysis [...] - 1.030 | [facility] | | | [place], | | | LABORATORY | | | [...] | | LABORATORY | | | | [facility];[address] [facility] | | | | | | [facility];[place] [address] | | | | + + + [...] | + + + + + | [facility] | [address] | [place] [address] | [phone] | + + + + + Culture, [...] | | LABORATORY | | | | Blvd;[place] [address] | | | | + + + + + + | RESULT | NO GROWTH 6 DAYS | | [facility] | | | | | | LABORATORY | | + + + + + + | RESULT | Testing performed at | | [facility] | | | | [facility], [address] [facility] | | LABORATORY | | | | [place] [place], [place] | | | | | | [address]Ixnjgdq: Testing | | | | | | performed at [facility], [address] | | | | | | [place] | | | | | | [address] | | | | + + + + + + + + | Specimen | + + | Blood - Peripheral | | blood specimen | | (specimen) | + + + + + + + | Performing | Address | City/State/Zipcode | Phone Number | | Organization | | | | + + + + + | [facility] | [address] | [place] [address] | [phone] | + + + + + CT [...] | performed at [facility] | | | | | | [address];[place], [place] | | | | | | [address] | | | | + + + + + + + + | Specimen | + + | | + + + + + + + | Performing | Address | City/State/Zipcode | Phone Number | | Organization | | | | + + + + + | [facility] | [address] | [place] [address] | [phone] | + + + + + XR [...] Collection | SPECIMEN RECEIVED IN | | [facility] | | | | LABComment: Testing | | LABORATORY | | | | performed at [facility];[address] | | | | | | [facility];[place], [place] | | | | | | [id number] | | | | + + + + + + + + | Specimen | + + | Tissue - Entire | | nasopharynx (body | | structure) | + + + + + + + | Performing | Address | City/State/Zipcode | Phone Number | | Organization | | | | + + + + + | [facility] | [address] | [place] [address] | [phone] | + + + + + C-Reactive Protein (07/29/2019 4:30 PM PST) + + + + + + | Component | Value | Ref Range | Performed | Pathologist | | | | | At | Signature | + + + + + + | CRP | 8.1 (H)Comment: Testing | <0.5 mg/dL | [facility] | | | | performed at [facility] [facility];[address] | | LABORATORY | | | | [address];[place], [place] | | | | | | [address] | | | | + + + + + + + + | Specimen | + + | Blood | + + + + + + + | Performing | Address | City/State/Zipcode | Phone Number | | Organization | | | | + + + + + | [facility] | [address] | [place] [address] | [phone] | + + + + + Lipase (07/29/2019 4:30 PM PST) + + + + + + | Component | Value | Ref Range | Performed | Pathologist | | | | | At | Signature | + + + + + + | Lipase | 26Comment: Testing | 12 - 53 U/L | ZAHIDA | | | | performed at [facility];[address] | | LABORATORY | | | | [address];[place] | | | | | | [address] | | | | + + + + + + + + | Specimen | + + | Blood | + + + + + + + | Performing | Address | City/State/Zipcode | Phone Number | | Organization | | | | + + + + + | [facility] | [address] | [place] [address] | [phone] | + + + + + Comprehensive [...] | performed at [facility] | | | | | | [facility];[place], [place] | | | | | | [address] | | | | + + + + + + + + | Specimen | + + | Blood | + + + + + + + | Performing | Address | City/State/Zipcode | Phone Number | | Organization | | | | + + + + + | [facility] | [address] | [place] [address] | [phone] | + + + + + CBC [...] | | | Absolute | performed at [facility];[address] | K/uL | LABORATORY | | | | [address];[place] | | | | | | [address] | | | | + + + + + + + + | Specimen | + + | Blood | + + + + + + + | Performing | Address | City/State/Zipcode | Phone Number | | Organization | | | | + + + + + | [facility] | [address] | [place] [address] | [phone] | + + + + + documented [...] PM PST | | | | | [facility] 07/29/19 at 2230 | | | | [...]
--- OUTSIDE RECORDS SUMMARY | ~2020-01-31 | XMS | Clinical Summary ---
Demographics + + + | Address | [address] | | | [place] [address] | + + + | Home Phone | | + + + | Preferred Language | Unknown | + + + | Marital Status | | + + + | Roman Catholic Affiliation | Unknown | + + + [...] Team Providers + +------+ + | Care Hydrometer Calibrator Name | Role | Phone | + +------+ + | Allison Fairchild NP | PCP | | + +------+ + Source Comments TANYA is fully live on both [facility] and [facility] InPatient.[facility] Allergies + + + + + + [...] | | + + + +---------+------+------+-------+ | [id number] | Chew and swallow. | | 0 [...] | | | | resent | | [place], [place] | | | | | | | | [address] | | + +--------+ +--------+ + +--------+ | [employer] | [employer] | xxxxxxxx | 09/11/19 | | | [...] | 1961 | [id number] | [place] [address] | | | valentín | | | 1 (Home) | | + +--------+ +--------+ + + | Reza Cespedes | Worker | Self | [birth year] | | [address] | | | s Comp | | 1961 | [id number] | [place] [address] | | | | | | 1 (Home) | | + +--------+ +--------+ + +
--- OUTSIDE RECORDS SUMMARY | ~2020-01-31 | XMS | Encounter Summary ---
Demographics + + + | Address | [address] | | | [place] [address] | + + + | Home Phone | | + + + | Preferred Language | Unknown | + + + | Marital Status | | + + + | Advent Affiliation | 1013 | + + + | Race | Unknown | + + + | Ethnic Group | Unknown | + + + Author + + + | Author | [facility] | | | and Alexana | + + + | Organization | [facility] | | | and [...] [place] | | | | | [address] | | + + + + + Care Team Providers + +------+ + | Care Cabin Worker Name | Role | Phone | [...] | | 2014 | | [address] | [address] | | | | | [place] | [place] | | | | | [address] | [address] | | | | | [phone] | [phone] | | | | | | | [...] | + +--------+ + + + | OSMOLALITY, SERUM | Routin | 10/03/2013 | | Results for this | | | e | 4:05 PM | | procedure are in the | | | | PST | | results section. | + +--------+ + + + documented in this encounter Results Osmolality, Serum (10/03/2013 4:05 PM PST) + + + + + + | Component | Value | Ref Range | Performed | Pathologist | | | | | At | Signature | + + + + + + | Osmolality, | 280Comment: Testing | 275 - 295 | EXTERNAL | | | Serum | performed at [facility], [address] | mOsm/kg | LAB | | | | [address] [place], [place] | | | | | | [address] | | | | + + + [...]
--- OUTSIDE RECORDS SUMMARY | ~2020-01-31 | XMS | Encounter Summary ---
Demographics + + + | Address | [address] | | | [place] [address] | + + + | Home Phone | | + + + | Preferred Language | Unknown | + + + | Marital Status | | + + + | Mandaeism Affiliation | 1013 | + + + | Race | Unknown | + + + | Ethnic Group | Unknown | + + + Author + + + | Author | and [facility] | | | and [place] | + + + | Organization | and [facility] | | | and [place] [...] [place] | | | | | [address] | | + + + + + Care Team Providers + +------+ + | Care Spray Drier Name | Role | Phone | + +------+ + | Allison Fairchild NP | PCP | | + +------+ + Reason for Visit + + + | Reason | Comments | + + + | Wound Check | abdominal | + + + Encounter Details +--------+ + + + + | Date | Type | Department | Care Team | Description | +--------+ + + + + | 07/04/ | Emergency | [facility] | Herson Tobias, | Abdominal wall | | 2019 | | [facility] | PA-C [address] | abscess (Primary Dx) | | | | EMERGENCY CENTER | [place] [address] | | | | | [address] | [phone] | | | | | [place], [place] | | | | | | [address] | Obed Davis, | | | | | [phone] | MD [address] | | | | | | [place], [place] | | | | | | [address] | | | | | | [phone] | | | | | | | [...] + + + | Blood Pressure | 122/91 | 07/04/2019 11:34 PM | | | | | PDT | | + + + + + | Pulse | 106 | 07/04/2019 11:34 PM | | | | | PDT | | + + + + + | Temperature | 36.7 C (98 F) | 07/04/2019 11:40 PM | | | | | PDT | | + + + + + | Respiratory Rate | 18 | 07/04/2019 8:14 PM | | | | | PDT | | + + + + + | Oxygen Saturation | 98% | 07/04/2019 11:34 PM | | | | | PDT | | + + + + + | Inhaled Oxygen | - | - | | | Concentration | | | | + + + + + | Weight | 98.6 kg (217 lb 6 | 07/04/2019 5:58 PM | | | | oz) | PDT | | + + + + + | Height | - | - | | + + + + + | Body Mass Index | 30.32 | 06/01/2019 11:00 PM | | | | | PDT | | + + + + + documented in this encounter Discharge Instructions Instructions Herson Tobias PA-C - 07/04/2019Continue take your antibiotics as directed. Please follow-up in 48 hours for wound check and packing change. AttachmentsThe following attachments cannot be sent through Care Everywhere.Abscess, Incisi on And Drainage (Setswana)documented in this encounter Medications at Time of [...] +---------+ + + | ondansetron | Take 1 tablet by | 20 | 0 | 07/04/20 | | | (ZOFRAN ODT) 4 mg | mouth every 8 hours | tablet | | 19 | 9 | | disintegrating | as needed for Nausea | | | | | | tablet | for up to 7 days. | | | | | + + [...] INFORMATION | CLOVER | Routin | | 07/04/2019 5:57 PM | | EXCHANGE | | e | | PDT | + +------+--------+ + + documented as of this encounter Procedures + +--------+ + + + | Procedure Name | Priori | Date/Time | Associated Diagnosis | Comments | | | ty | | | | + +--------+ + + + | CT ABDOMEN W | SONALI | 07/04/2019 | | Results for this | | CONTRAST | | 10:17 PM | | procedure are in the | | | | PDT | | results section. | + +--------+ + + + | INCISION AND | Routin | 07/04/2019 | | Results for this | | DRAINAGE | e | 8:52 PM | | procedure are in the | | | | PDT | | results section. | + +--------+ + + + | CULTURE, BLOOD | STAT | 07/04/2019 | | Results for this | | | | 8:40 PM | | procedure are in the | | | | PDT | | results section. | + +--------+ + + + | CULTURE, BLOOD | STAT | 07/04/2019 | | Results for this | | | | 8:10 PM | | procedure are in the | | | | PDT | | results section. | + +--------+ + + + | CBC WITH | STAT | 07/04/2019 | | Results for this | | DIFFERENTIAL | | 8:10 PM | | procedure are in the | | | | PDT | | results section. | + +--------+ + + + | LIPASE | STAT | 07/04/2019 | | Results for this | | | | 8:10 PM | | procedure are in the | | | | PDT | | results section. | + +--------+ + + + | LACTIC ACID | Routin | 07/04/2019 | | Results for this | | | e | 8:10 PM | | procedure are in the | | | | PDT | | results section. | + +--------+ + + + | COMPREHENSIVE | STAT | 07/04/2019 | | Results for this | | METABOLIC PANEL | | 8:10 PM | | procedure are in the | | | | PDT | | results section. | + +--------+ + + + | CULTURE, WOUND, | STAT | 07/04/2019 | | Results for this | | SMEAR, W/ANAEROBE | | 7:30 PM | | procedure are in the | | | | PDT | | results section. | + +--------+ + + + | ED INFORMATION | Routin | 07/04/2019 | | | | EXCHANGE | e | 5:57 PM | | | | | | PDT | | | + +--------+ + + + +---+--------+ | | | | | Proced | | | ure | | | Note - | | | Ethan, | | | Lab In | | | | | | Hlseve | | | n - | | | 07/04/ | | | 2019 | | | 5:58 | | | PM PDT | | | | | | Format [...] | | | FICATI | | | ON?10/ | | | [birth year]/201 | | | 9 | | | 17:56? | | | KALAL, | | | | | | APARNA | | | | | | D?MRN: | | | | | | [id number] | | | [id number] | | | riteri | | | a Met | | | 2 in | | | 2 | | | Care | | | [...] | | | [facility] | [facility] | [facility] | | | y | | | [...] | | | Center | | | 1 0 | | [facility] | | | al 4 0 | | | Total | | | 5 0 | | | Note: | | [...] | | | int | | | Oct | | | [...] | | | St. | | | [facility] | | | y H. | | | [place] | | | [place] | | | Emerge | | | ncy | | | Chief | | | Compla | | | int: | | | POSS | | | ABSCES | | | S Sep | | | 20, | | | 2019 | | | [facility] | | [...] | | | St[facility] | | | [facility] | | | y H. | | [...] | | | St. | | | [facility] | | | y H. | | [...] | | | Dates | | | Kannie | | | r, | | | Wyndi | | | Case | | | Manage | | | r/Care | | | | | | Coordi | | | nator | | | ([phone]) | | | [phone] | | | 29 | | | Josiah 1, | | | 2019 | | | - | | | Curren | | | t L, | | | ANNY | | | L | | | PHYLLI | | | S, | | | ENVIRONMENTAL PROGRAM MANAGER-C | | | Nurse | | | Practi | | | tioner | | | : | | | Family | | | Feb | | | 14, | | | 2019 - | | | | | | Curren | | | t | | | Kannie | | | r, | | | Wyndi | | | Primar | | | y Care | | | (541) | | | | | | [phone] | | | 29 | | | Josiah 1, | | [...] | | | /notif | | | y/118c | | | 9fc3-0 | | | 336-4c | | | 19-earlene | | | [id number] | | | [id number] | | | 17 | | | PLEASE | | | [...] | | | ed.? | | | 2019 | | | Collec | | | tive | | | Medica | | | l | | | Techno | | | logies | | | , Inc. | | | - | | | [email or web address] | | | llecti | | | vemedi | | | [email or web address] | | | m | +---+--------+ documented in this encounter Results CT Abdomen w Contrast (07/04/2019 10:17 PM PDT) + + | Specimen | + + | | + + + + + | Impressions | Performed At | + + + | 1. Fluid collection with rim enhancement and multiple foci of air | [facility] | | seen along the mesh repair of the anterior abdominal wall, measuring | | | 11.6 x 2.5 x 5.6 cm. No definite intraperitoneal extension. A | | | small draining tract from this collection is noted at the level of | | | the umbilicus. Mild thickening and fat stranding in the anterior | | | abdominal wall adjacent subcutaneous fat. 2. Some of the small | | | bowel loops appear to be in close approximation to this collection | | | along the mesh however no definite communication identified. No | | | abnormal thickening of these bowel loops. 3. Other stable chronic | | | findings as described above. Signed by: Trevin Meneses Sadaf | | | Sign Date/Time: 07/04/2019 10:36 PM | | + + + + + + | Narrative | Performed At | + + + | CT ABDOMEN WITH CONTRAST CLINICAL INFORMATION: Abdominal | [facility] | | abscess COMPARISON: CTA CHEST ABDOMEN PELVIS W CONTRAST | | | (02/21/2019); US ABDOMEN LIMITED (12/13/2018); PROCEDURE: Axial | | | images through the abdomen after the administration of 100 mL | | | [id number] intravenous contrast. Multiplanar reconstructions. | | | At least one of the following CT dose optimization techniques were | | | used: Automated exposure control; Adjustment of mA and/or kV according | | | to patient size; Use of iterative reconstruction technique. | | | FINDINGS: LUNG BASES: No significant pulmonary abnormality. No | | | pleural effusion or pneumothorax. ABDOMEN Liver and Biliary: | | | Status post cholecystectomy. No significant biliary abnormality. | | | No focal liver lesion. Pancreas, Spleen and Adrenals: No | | | pancreatitis or pancreatic mass. No splenomegaly, splenic mass or | | | splenic hemorrhage. No significant adrenal abnormality. Kidneys: No | | | hydronephrosis, calculus or solid renal mass. Stable tiny left | | | renal hypodensity presumably a small cyst. Bowel: No small bowel or | | | colonic dilation or adjacent inflammation. Vessels: No significant | | | abnormality in the aorta or its proximal branches. No significant | | | abnormality in the portal veins, mesenteric veins or systemic veins. | | | Partially visualized right iliac artery stent Lymph Nodes: Few | | | shotty upper abdominal and retroperitoneal lymph nodes that appear to | | | be stable and are not enlarged by CT size criteria. Peritoneum and | | | Retroperitoneum: No ascites or free air. No significant | | | retroperitoneal abnormality. BODY WALL Soft Tissues: There | | | appears to be a fluid collection with multiple foci of air along the | | | anterior abdominal wall mesh repair. It measures approximately 11.6 | | | x 2.5 x 5.6 cm. There does not appear to be any intraperitoneal | | | extension. There are some bowel loops that appear to be in close | | | proximity yanez however these do not appear to be inflamed. There | | | appears to be a small drainage tract from this collection at the | | | level of the umbilicus. Mild thickening and fat stranding in the | | | anterior abdominal wall adjacent subcutaneous fat. Again noted is | | | diastasis of the recti muscles inferiorly with some small bowel loops | | | projecting into the diastasis defect. Bones: No acute fracture or | | | vertebral end plate destruction. No lytic or blastic lesion. | | + + + + + | Procedure Note | + + | Ethan, Rad Results In - 07/04/2019 10:39 PM PDT | | CT ABDOMEN WITH CONTRAST | | | | CLINICAL INFORMATION: | | Abdominal abscess | | | | COMPARISON: | | CTA CHEST ABDOMEN PELVIS W CONTRAST (02/21/2019); US ABDOMEN LIMITED | | (12/13/2018); | | | | PROCEDURE: | | Axial images through the abdomen after the administration of 100 mL | | [id number] intravenous contrast. Multiplanar reconstructions. | | | [...] | ABDOMEN | | Liver and Biliary: Status post cholecystectomy. No significant biliary | | abnormality. No focal liver lesion. | | Pancreas, Spleen and Adrenals: No pancreatitis or pancreatic mass. No | | splenomegaly, splenic mass or splenic hemorrhage. No significant | | adrenal abnormality. | | Kidneys: No hydronephrosis, calculus or solid renal mass. Stable tiny | | left renal hypodensity presumably a small cyst. | | Bowel: No small bowel or colonic dilation or adjacent inflammation. | | Vessels: No significant abnormality in the aorta or its proximal | | branches. No significant abnormality in the portal veins, mesenteric | | veins or systemic veins. Partially visualized right iliac artery stent | | Lymph Nodes: Few shotty upper abdominal and retroperitoneal lymph nodes | | that appear to be stable and are not enlarged by CT size criteria. | | Peritoneum and Retroperitoneum: No ascites or free air. No significant | | retroperitoneal abnormality. | | | | BODY WALL | | Soft Tissues: There appears to be a fluid collection with multiple foci | | of air along the anterior abdominal wall mesh repair. It measures | | approximately 11.6 x 2.5 x 5.6 cm. There does not appear to be any | | intraperitoneal extension. There are some bowel loops that appear to | | be in close proximity yanez however these do not appear to be inflamed. | | There appears to be a small drainage tract from this collection at the | | level of the umbilicus. Mild thickening and fat stranding in the | | anterior abdominal wall adjacent subcutaneous fat. | | Again noted is diastasis of the recti muscles inferiorly with some | | small bowel loops projecting into the diastasis defect. | | Bones: No acute fracture or vertebral end plate destruction. No lytic | | or blastic lesion. | | | | IMPRESSION: | | 1. Fluid collection with rim enhancement and multiple foci of air seen | | along the mesh repair of the anterior abdominal wall, measuring 11.6 x | | 2.5 x 5.6 cm. No definite intraperitoneal extension. A small draining | | tract from this collection is noted at the level of the umbilicus. | | Mild thickening and fat stranding in the anterior abdominal wall | | adjacent subcutaneous fat. | | 2. Some of the small bowel loops appear to be in close approximation | | to this collection along the mesh however no definite communication | | identified. No abnormal thickening of these bowel loops. | | 3. Other stable chronic findings as described above. | | | | | | | | Signed by: Trevin Meneses, Colleen | | Sign Date/Time: 07/04/2019 10:36 PM | + + + +---------+ + + | Performing | Address | City/State/Zipcode | Phone Number | | Organization | | | | + +---------+ + + | [facility] | | | | + +---------+ + + Incision/Drainage (07/04/2019 8:52 PM PDT) + + + | Narrative | Performed At | + + + | Herson Tobias PA-C 07/04/2019 23:28 Incision/Drainage | | | Date/Time: 07/04/2019 23:21 Performed by: Herson Tobias PA-C | | | Authorized by: Herson Tobias PA-C Consent: Consent | | | obtained: Verbal Consent given by: Patient Risks | | | discussed: Incomplete drainage, pain, infection, damage to other | | | organs and bleeding Alternatives discussed: No treatment, | | | delayed treatment, observation and referral Location: Type: | | | Abscess Location: Trunk Procedure type: Complexity: | | | Simple Procedure details: Wound management: Probed and | | | deloculated, irrigated with saline and extensive cleaning | | | Drainage: Purulent Drainage amount: Copious Wound | | | treatment: Drain placed Packing materials: 1/2 in iodoform | | | gauze and wick placed Post-procedure details: Patient tolerance | | | of procedure: Tolerated well, no immediate complications | | + + + Culture, Blood (07/04/2019 8:40 PM PDT) + + + + + + | Component | Value | Ref Range | Performed | Pathologist | | | | | At | Signature | + + + + + + | Special | R HAND | | [facility] | | | Requests | | | LABORATORY | | + + + + + + | Special | Testing performed at | | [facility] | | | Requests | [facility] | | LABORATORY | | | | [place] [address] | | | | + + + + + + | RESULT | NO GROWTH 6 DAYS | | [facility] | | | | | | LABORATORY | | + + + + + + | RESULT | Testing performed at | | [facility] | | | | TCL, [address] [facility] | | LABORATORY | | | | [place], [place] | | | | | | [id number]: Testing | | | | | | performed at [facility], [address] | | | | [address] [place], [place] | | | | | | [address] | | | | + + + + + + + + | Specimen | + + | Blood - Peripheral | | blood specimen | | (specimen) | + + + + + + + | Performing | Address | City/State/Zipcode | Phone Number | | Organization | | | | + + + + + | [facility] | [address] | [place] [address] | [phone] | + + + + + Culture, Blood (07/04/2019 8:10 PM PDT) + + + + + + | Component | Value | Ref Range | Performed | Pathologist | | | | | At | Signature | + + + + + + | Special | LAC | | [facility] | | | Requests | | | LABORATORY | | + + + + + + | Special | Testing performed at | | [facility] | | | Requests | [facility] | | LABORATORY | | | | [place] [address] | | | | + + + + + + | RESULT | NO GROWTH 6 DAYS | | [facility] | | | | | | [facility] | | + + + + + + | RESULT | Testing performed at | | [facility] | | | | TCL, [address] | | LABORATORY | | | | [place] | | | | | | [id number]: Testing | | | | | | performed at [facility], [address] | | | | | [address] [place], [place] | | | | | | [address] | | | | + + + + + + + + | Specimen | + + | Blood - Swab of line | | insertion site | | (specimen) | + + + + + + + | Performing | Address | City/State/Zipcode | Phone Number | | Organization | | | | + + + + + | [facility] | [address] | [place] [address] | [phone] | + + + + + Lactic Acid (07/04/2019 8:10 PM PDT) + + + + + + | Component | Value | Ref Range | Performed | Pathologist | | | | | At | Signature | + + + + + + | Lactate, | 1.3Comment: Testing | 0.4 - 2.0 | [facility] | | | Serum | performed at [facility] | mmol/L | LABORATORY | | | | [address];[place], [place] | | | | | | [address] | | | | + + + + + + + + | Specimen | + + | Blood | + + + + + + + | Performing | Address | City/State/Zipcode | Phone Number | | Organization | | | | + + + + + | [facility] | [address] | [place] [address] | [phone] | + + + + + Lipase (07/04/2019 8:10 PM PDT) + + + + + + | Component | Value | Ref Range | Performed | Pathologist | | | | | At | Signature | + + + + + + | Lipase | Comment: Testing | 12 - 53 U/L | [facility] | | | | performed at [facility];[address] | | LABORATORY | | | | [address];[place] | | | | | | [address] | | | | + + + + + + + + | Specimen | + + | Blood | + + + + + + + | Performing | Address | City/State/Zipcode | Phone Number | | Organization | | | | + + + + + | [facility] | [address] | [place] [address] | [phone] | + + + + + Comprehensive Metabolic Panel (07/04/2019 8:10 PM PDT) + + + + + [...] + + + + | Creatinine | 1.03 | 0.70 - 1.30 | [facility] | | | | | mg/dL | LABORATORY | | + + + + + + | BUN/Creatin | 12 | | [facility] | | | ine Ratio | | | LABORATORY | | + + + + + + | Calcium | 8.6 | 8.5 - 10.5 | [facility] | | | | | mg/dL | LABORATORY | | + + + + + + | Protein, | 6.2 (L) | 6.3 - 8.2 g/dL | [facility] | | | Total | | | LABORATORY | | + + + + + + | Albumin | 3.8 | 3.6 - 5.0 g/dL | [facility] | | | | | | LABORATORY | | + + + + + + | Globulin | 2.4 | 1.3 - 4.9 g/dL | [facility] | | | | | | LABORATORY | | + + + + + + | A/G Ratio | 1.6 | 1.0 - 2.4 | [facility] | | | | | | LABORATORY | | + + + + + + | BILIRUBIN, | <0.2 | 0.1 - 1.5 mg/dL | [facility] | | | TOTAL | | | LABORATORY | | + + + + + + | ALK PHOS | 84 | 35 - 115 U/L | [facility] | | | | | | LABORATORY | | + + + + + + | AST | 17 | 10 - 45 U/L | [facility] [...] | | | | | | MDRD [facility] traceable | | | | | | equation.Testing | | | | | | performed at [facility];[address] | | | | | | [facility];[place], [place] | | | | | | [address] | | | | + + + + + + + + | Specimen | + + | Blood | + + + + + + + | Performing | Address | City/State/Zipcode | Phone Number | | Organization | | | | + + + + + | [facility] | [address] | [place] [address] | [phone] | + + + + + CBC with Differential (07/04/2019 8:10 PM PDT) + + + + + + | Component | Value | Ref Range | Performed | Pathologist | | | | | At | Signature | + + + + + + | WBC | 6.55 | 3.80 - 11.00 | [facility] | | | | | K/uL | LABORATORY | | + + + + + + | RBC | 3.81 (L) | 4.20 - 5.70 | [facility] | | | | | M/uL | LABORATORY | | + + + + + + | Hemoglobin | 10.8 (L) | 13.2 - 17.0 | [facility] | | | | | g/dL | LABORATORY | | + + + + + + | Hematocrit | 33.0 (L) | 39.0 - 50.0 % | [facility] | | | | | | LABORATORY | | + + + + + + | MCV | 86.7 | 80.0 - 100.0 fl | [facility] | | | | | | LABORATORY | | + + + + + + | MCH | 28.3 | 27.0 - 34.0 pg | [facility] | | | | | | LABORATORY | | + + + + + + | MCHC | 32.7 | 32.0 - 35.5 | [facility] | | | | | g/dL | LABORATORY | | + + + + + + | RDW-SD | 45.9 | 37 - 53 fl | [facility] | | | | | | LABORATORY | | + + + + + + | Platelet | 456 (H) | 150 - 400 K/uL | [facility] | | | Count | | | LABORATORY | | + + + + + + | MPV | 7.2 | fl | [facility] | | | | | | LABORATORY | | + + + + + + | Diff Type | AUTOMATED | | [facility] | | | | | | LABORATORY | | + + + + + + | % | 59.68 | % | [facility] | | | Neutrophils | | | LABORATORY | | + + + + + + | % | 23.69 | % | [facility] | | | Lymphocytes | | | LABORATORY | | + + + + + + | Monocyte % | 11.34 | % | [facility] | | | | | | LABORATORY | | + + + + + + | Eosinophils | 4.14 | % | [facility] | | | % | | | LABORATORY | | + + + + + + | Basophils % | 1.15 | % | [facility] | | | | | | LABORATORY | | + + + + + + | Neutrophils | 3.91 | 1.90 - 7.40 | [facility] | | | , Absolute | | K/uL | LABORATORY | | + + + + + + | Absolute | 1.55 | 1.00 - 3.90 | [facility] | | | Lymphocytes | | K/uL | LABORATORY | | + + + + + + | Absolute | 0.74 | 0.00 - 0.80 | [facility] | | | Monocytes | | K/uL | LABORATORY | | + + + + + + | Eosinophils | 0.27 | 0.00 - 0.50 | [facility] | | | , Absolute | | K/uL | LABORATORY | | + + + + + + | Basophils, | 0.08Comment: Testing | 0.00 - 0.10 | [facility] | | | Absolute | performed at [facility];[address] | K/uL | LABORATORY | | | | [place] [place] | | | | | | [address] | | | | + + + + + + + + | Specimen | + + | Blood | + + + + + + + | Performing | Address | City/State/Zipcode | Phone Number | | Organization | | | | + + + + + | [facility] | [address] | [place] [address] | [phone] | + + + + + Culture, Wound, Smear, w/Anaerobe (07/04/2019 7:30 PM PDT) + + + + + + | Component | Value | Ref Range | Performed | Pathologist | | | | | At | Signature | + + + + + + | Gram Stain | 2+ | | [facility] | | | Result [...] + + + | Gram Stain | Testing performed at | | [facility] | | | Result | [facility];[address] | | LABORATORY | | | | [address];[place] [address] | | | | + + + + + + | RESULT | 2+ | | [facility] | | | | ESCHERICHIA COLI | | LABORATORY | | | | (A) | | | | + + + + + + | RESULT | 2+ | | [facility] | | | | STREPTOCOCCUS GORDONII | | LABORATORY | | | | (A) | | | | + + + + + + | RESULT | 2+ | | [facility] | | | | PREVOTELLA ORALIS | | LABORATORY | | | | (A) | | | | + + + + + + + + | Specimen | + + | Tissue - Abdominal | | wall structure (body | | structure) | + + + + +--------+ + [...] Sensitive | + + +--------+ + | Streptococcus | Penicillin G | ANDREW | SUSCEPTIBLE: | | gordonii | | | Sensitive | + + +--------+ + | Streptococcus | Clindamycin | ANDREW | SUSCEPTIBLE: | | gordonii | | | Sensitive | + + +--------+ + | Streptococcus | Erythromycin | ANDREW | SUSCEPTIBLE: | | gordonii | | | Sensitive | + + +--------+ + | Streptococcus | Levofloxacin | ANDREW | SUSCEPTIBLE: | | gordonii | | | Sensitive | + + +--------+ + | Streptococcus | Moxifloxacin | ANDREW | SUSCEPTIBLE: | | gordonii | | | Sensitive | + + +--------+ + | Streptococcus | Tetracycline | ANDREW | SUSCEPTIBLE: | | gordonii | | | Sensitive | + + +--------+ + | Streptococcus | Vancomycin | ANDREW | SUSCEPTIBLE: | | gordonii | | | Sensitive | + + +--------+ + +---+ + | | Comment: Testing | | | performed at [facility], | | | [address], | | | [place] [address] | +---+ + + + + + + | Performing | Address | City/State/Zipcode | Phone Number | | Organization | | | | + + + + + | [facility] | [address] | [place] [address] | [phone] | + + + + + documented in this encounter Visit Diagnoses + + | Diagnosis | + + | Abdominal wall abscess - Primary Cellulitis and abscess of trunk | + + documented in this encounter Administered Medications + +--------+ + +------+------+ | Medication Order | MAR | Action | Dose | Rate | Site | | | Action | Date | | | | + +--------+ + +------+------+ | HYDROcodone-acetaminophen | Given | 07/04/20 | 1 tablet | | | | (NORCO) 5-325 mg per tablet 1 | | 19 11:36 | | | | | tablet 1 tablet, Oral, ONCE, Mon | | PM PDT | | | | | 07/04/19 at 2330, For 1 dose | | | | | | + +--------+ + +------+------+ +---+---+ | | | +---+---+ + +-------+ +---------+---+---+ | iohexol (OMNIPAQUE 350) 350 | Given | 07/04/20 | 100 mLs | | | | mg/mL injection 100 mL 100 mL, | | 19 10:02 | | | | | Intravenous, ONCE PRN, Other, | | PM PDT | | | | | Starting 07/04/19 at 2202, | | | | | | | For 1 dose, Cat Scanner | | | | | | + +-------+ +---------+---+---+ +---+---+ | | | +---+---+ + +-------+ +------+---+---+ | morphine injection 4 mg 4 mg, | Given | 10/28/20 | 4 mg | | | | Intravenous, EVERY 1 HOUR PRN, | | 19 8:09 | | | | | Pain, Starting 07/04/19 at | | PM PDT | | | | | 1946, For 2 doses | | | | | | + +-------+ +------+---+---+ +---+---+ | | | +---+---+ + +-------+ +------+---+---+ | ondansetron (ZOFRAN) injection | Given | 07/04/20 | 4 mg | | | | 4 mg 4 mg, Intravenous, EVERY 1 | | 19 8:09 | | | | | HOUR PRN, Nausea, Starting Mon | | PM PDT | | | | | 07/04/19 at 1946, For 2 doses | | | | | | + +-------+ +------+---+---+ +---+---+ | | | +---+---+ + +---------+ +--------+-------+---+ | sodium chloride 0.9% (NS) bolus | New Bag | 07/04/20 | 1,000 | 2000 | | | 1,000 mL 1,000 mL, Intravenous, | | 19 8:09 | mLs | mL/hr | | | Administer over 30 Minutes, | | PM PDT | | | | | ONCE, 07/04/19 at 1955, For 1 | | | | | | | dose | | | | | | + +---------+ +--------+-------+---+ +---+---+ | | | +---+---+ documented in this encounter"
--- OUTSIDE RECORDS SUMMARY | ~2020-01-31 | XMS | Encounter Summary ---
Demographics + + + | Address | [address] | | | [place] [address] | + + + | Home Phone | | + + + | Preferred Language | Unknown | + + + | Marital Status | | + + + | Mormonism Affiliation | 1013 | + + + | Race | Unknown | + + + | Ethnic Group | Unknown | + + + Author + + + | Author | [facility] | | | and [place] | + + + | Organization | [facility] | | | [...] [place] | | | | | [address] | | + + + + + Care Team Providers + +------+ + | Care Pharmacy Buyer Name | Role | Phone | + +------+ + | Allison Fairchild NP | PCP | | + +------+ + Encounter Details +--------+ + + + + | Date | Type | Department | Care Team | Description | +--------+ + + + + | 12/10/ | Hospital | [facility] | Conversion | Closed compression | | 2017 | Encounter | [facility] | Transaction, | fracture of fourth | | | | [address] | Provider Unknown | lumbar vertebra, | | | | [place], [place] | [phone] | initial encounter | | | | [address] | | ([facility]); Low back | | | | [phone] | Bryant Forrest, | pain, unspecified | | | | | MD [address] | back pain | | | | | [address]VE [place], [place] | laterality, | | | | | [address] | unspecified | | | | | | chronicity, with | | | | | | sciatica presence | | | | | | unspecified | +--------+ + + + + Social [...] MRI LUMBAR SPINE WO | Routin | 12/10/2017 | | Results for this | | CONTRAST | e | 5:21 PM | | procedure are in the | | | | PDT | | results section. | + +--------+ + + + documented in this encounter Results MRI Lumbar Spine wo Contrast (12/10/2017 5:21 PM PDT) + + | Specimen | + + | | + + + + + | Impressions | Performed At | + + + | 1. No spinal canal stenosis. 2. Multilevel mild posterior disc | | | protrusions of the lower lumbar spine. 3. Vertebral body height is | | | preserved. 4. Other degenerative findings as described. | | | | | + + + + + + | Narrative | Performed At | + + + | [facility] 1960 MRI LUMBAR SPINE WO CONTRAST 12/10/2017 | | | 5:21 PM INDICATION: Low back pain. Sciatica. COMPARISON: | | | September 26, 2015. TECHNIQUE: Imaging was performed on a 1.5 Megan | | | MRI system. Multiplanar sequences according to a standard | | | department protocol were acquired without contrast. FINDINGS: | | | Conus ends at L2. No abnormal signal of the terminal spinal cord. | | | T12-L1 and L1-L2 levels are unremarkable with no spinal canal stenosis | | | or neural foraminal stenosis. L2-L3: Intervertebral disc | | | desiccation. Broad-based posterior disc protrusion. No spinal canal | | | stenosis. No neural foraminal stenosis. Mild lateral recess narrowing. | | | L3-L4: Intervertebral disc desiccation. Broad-based posterior | | | disc protrusion. No spinal canal stenosis. No neural foraminal | | | stenosis. Facet joints are normal. Edema of the anterior inferior L3 | | | and superior anterior L4 vertebral bodies most consistent with | | | degenerative in etiology. L4-L5: Intervertebral disc desiccation. | | | Broad-based posterior disc protrusion. No spinal canal stenosis. Right | | | moderate neural foraminal narrowing. Left neural foramen is open. | | | Moderate facet joint arthropathy. L5-S1: Intervertebral disc | | | desiccation. Broad-based posterior disc protrusion. No spinal canal | | | stenosis. Bilateral mild to moderate neural foraminal narrowing. | | | Moderate facet joint arthropathy. Partially visualized right | | | hemipelvic surgical fixation hardware. | | + + + + + | Procedure Note | + + | Luis Long Conversion - 04/20/2019 7:49 AM [facility]1959MRI LUMBAR SPINE | | WO CONTRAST12/10/2017 5:21 PM INDICATION: Low back pain. Sciatica. COMPARISON: September | | 2015. TECHNIQUE:Imaging was performed on a 1.5 Megan MRI system. Multiplanar | | sequences according to a standard department protocol were acquired without contrast. | | FINDINGS: Conus ends at L2. No abnormal signal of the terminal spinal cord. T12-L1 and | | L1-L2 levels are unremarkable with no spinal canal stenosis or neural foraminal | | stenosis. L2-L3: Intervertebral disc desiccation. Broad-based posterior disc protrusion. | | No spinal canal stenosis. No neural foraminal stenosis. Mild lateral recess narrowing. | | L3-L4: Intervertebral disc desiccation. Broad-based posterior disc protrusion. No spinal | | canal stenosis. No neural foraminal stenosis. Facet joints are normal. Edema of the | | anterior inferior L3 and superior anterior L4 vertebral bodies most consistent with | | degenerative in etiology. L4-L5: Intervertebral disc desiccation. Broad-based posterior | | disc protrusion. No spinal canal stenosis. Right moderate neural foraminal narrowing. | | Left neural foramen is open. Moderate facet joint arthropathy. L5-S1: Intervertebral | | disc desiccation. Broad-based posterior disc protrusion. No spinal canal stenosis. | | Bilateral mild to moderate neural foraminal narrowing. Moderate facet joint arthropathy. | | Partially visualized right hemipelvic surgical fixation hardware. IMPRESSION: 1. No | | spinal canal stenosis.2. Multilevel mild posterior disc protrusions of the lower lumbar | | spine.3. Vertebral body height is preserved.4. Other degenerative findings as | | described. | |L3-L4: Intervertebral disc desiccation. Broad-based posterior disc protrusion. No spinal ca nal stenosis. No neural foraminal stenosis. Facet joints are normal. Edema of the anterior i nferior L3 and superior anterior L4 vertebral bodies most consistent | |with degenerative in etiology. | | | |L4-L5: Intervertebral disc desiccation. Broad-based posterior disc protrusion. No spinal ca nal stenosis. Right moderate neural foraminal narrowing. Left neural foramen is open. Modera te facet joint arthropathy. | | | |L5-S1: Intervertebral disc desiccation. Broad-based posterior disc protrusion. No spinal ca nal stenosis. Bilateral mild to moderate neural foraminal narrowing. Moderate facet joint ar thropathy. | | | |Partially visualized right hemipelvic surgical fixation hardware. | | | |IMPRESSION: | |1. No spinal canal stenosis. | |2. Multilevel mild posterior disc protrusions of the lower lumbar spine. | |3. Vertebral body height is preserved. | |4. Other degenerative findings as described. | | | | | + + documented in this encounter Visit Diagnoses + + | Diagnosis | + + | Closed compression fracture of fourth lumbar vertebra, initial encounter (HCC) | + + | Low back pain, unspecified back pain laterality, unspecified chronicity, with sciatica | | presence unspecified | + + documented in this encounter"
--- OUTSIDE RECORDS SUMMARY | ~2020-01-31 | XMS | Encounter Summary ---
Demographics + + + | Address | [address] | | | [place] [address] | + + + | Home Phone [...] | Author | [facility] | | | and [place] | + + + | Organization | [facility] | | | and [place] | [...] [place] | | | | | [address] | | + + + + + Care Team Providers + +------+ + | Care Airplane Tester Name | Role | Phone | + [...] | | | disorder | [address] | [place], [place] | | | | | ([facility]) | [place], [place] | [address] | | | | | | [address] | Phone: | | | | | | Phone: | [phone] | | | | | | [phone] | Fax: | | | | | | Fax: | [phone] | | | | | | [phone] | | +--------+ + + + + [...] + + | 10/06/ | Office | [facility] | Anival Stevenson MD | Thrombocytosis (HCC) | | 2020 | Visit | GENERAL SURGERY [address] | [address] | (Primary Dx); | | | | [address] | [address] [place], [place] | Chills without | | | | [place], [place] | [address] | fever; Night sweats; | | | | [address] | | Disoriented to | | | | [phone] | | place; Delusional | | | [...] to | Ordered: 10/06/2019 | | to [facility] | Referral | e | [...] | | | | | performed at [facility];[address] | | | | | | [facility] | | | | | | [facility];[place] [address] | | | | | | | | | | + + + + + + + + | Specimen | + + | Blood | + + + + + + + | Performing | Address | City/State/Zipcode | Phone Number | | Organization | | | | + + + + + | REFERENCE LAB | [facility] | [place] | [phone] | | [facility] | [address] | [address] | | | LABORATORY | | | | + + + + + | REFERENCE LAB | [facility] | [place] | | | [facility] | Bl[address] | [address] | | | LABORATORY | | | [...] | | | Absolute | performed at [facility];[address] | K/uL | LAB | | | | [address] | | [facility] | | | | [address];[place] [address] | | LABORATORY | | + + + + + + + + | Specimen | + + | Blood | + + + + + + + | Performing | Address | City/State/Zipcode | Phone Number | | Organization | | | | + + + + + | REFERENCE LAB | [address] | [place] | [phone] | | [facility] | [address] | [address] | | | LABORATORY | | | | + + + + + | REFERENCE LAB | [address] [facility] [address] [facility] | [place] | | | [facility] | Bl[address] | [address] | | | LABORATORY | | | [...]
--- OUTSIDE RECORDS SUMMARY | ~2020-01-31 | XMS | Encounter Summary ---
Demographics + + + | Address | [address] | | | [place] [address] | + + + | Home Phone | | + + + | Preferred Language | Unknown | + + + | Marital Status | | + + + | Gnosticism Affiliation | 1013 | + + + | Race | Unknown | + + + | Ethnic Group | Unknown | + + + Author + + + | Author | [facility] | | | and [place] | + + + | Organization | [facility] | | | and [place] [...] [place] | | | | | [address] | | + + + + + Care Team Providers + +------+ + | Care Membership Counselor Name | Role | Phone | + +------+ + | Allison Fairchild NP | PCP | | + +------+ + Encounter Details +--------+ + + + + | Date | Type | Department | Care Team | Description | +--------+ + + + + | 04/26/ | Orders Only | [facility] | Tyron Hsu DNP | Renal artery | | 2018 | | VASCULAR SURGERY | [address] | stenosis (HCC) | | | | [address] | [place], [place] | (Primary Dx) | | | | [place], [place] | [address] | | | | | [address] | | | | | | [phone] | | | +--------+ + + + [...] | | + +------+--------+ + + | Misc Lab Referral | Lab | Routin | Renal artery | 1 Occurrences | | | | e | stenosis (HCC) | starting 04/26/2019 | | | | | | until 10/28/2019 | + +------+--------+ + + documented as of this encounter Visit Diagnoses + + | Diagnosis | + + | Renal artery stenosis (HCC) - Primary Atherosclerosis of renal artery | + + documented in this encounter"
--- OUTSIDE RECORDS SUMMARY | ~2020-01-31 | XMS | Encounter Summary ---
Demographics + + + | Address | [address] | | | [place] [address] | + + + | Home Phone [...] | Author | [facility] | | | and [place] | + + + | Organization | [facility] [...] [place] | | | | | [address] | | + + + + + Care Team Providers + +------+ + | Care Folder And Notcher Name | Role | Phone | [...] + + | 10/13/ | Telephone | [facility] | Anival Stevenson MD | Surgery Appointment | | 2020 | | GENERAL SURGERY [address] | [address] | (reschedule 10/14 | | | | [address] | [address] [place], [place] | appointment) | | | | [place] | [address] | | | | | [address] | | | | | | [phone] | | | +--------+ + + + [...]
--- OUTSIDE RECORDS SUMMARY | ~2020-01-31 | XMS | Encounter Summary ---
Demographics + + + | Address | [address] | | | [place] [address] | + + + | Home Phone [...] + | Author | [facility] | | | and [place] | + + + | Organization | [facility] | | | and [place] | [...] [place] | | | | | [address] | | + + + + + Care Team Providers + +------+ + | Care Fruit Receiver Name | Role | Phone | + [...] | | | [place] | [place] | | | | | [address] | [address] | | | | | [phone] | [phone] | | | | | | | [...] EXTERNAL | | | | performed at [facility];[address] | uIU/mL | LAB | | | | [address] | | | | | | [place] [address] | | | | + + + [...]
--- OUTSIDE RECORDS SUMMARY | ~2020-01-31 | XMS | Encounter Summary ---
Demographics + + + | Address | [address] | | | [place] [address] | + + + | Home Phone [...] | [facility] | | | and [place] | + + + | Organization | [facility] | | | and [...] [place] | | | | | [address] | | + + + + + Care Team Providers + +------+ + | Care Employee Communications Intern Name | Role | Phone | [...] [address] | [address] | | | | | [place] | [place] | | | | | [address] | [address] | | | | | [phone] | [phone] | | | | | | | [...] [place] | | | | | | [address] | | | | + + + + + + | Red Blood | 3.42 (L)Comment: Testing | 4.20 - 5.70 | EXTERNAL | | | Cells | performed at [facility] | M/uL | LAB | | | Counted | Health;[address] | | | | | | [place] | | | | | | [address] | | | | + + + + + + | Hemoglobin | 9.6 (L)Comment: Testing | 13.2 - 17.0 | EXTERNAL | | | | performed at [facility] | g/dL | LAB | | | | Health;[address] | | | | | | [place] | | | | | | [address] | | | | + + + + + + | Hematocrit, | 30.2 (L)Comment: Testing | 39.0 - 50.0 % | EXTERNAL | | | POC | performed at [facility] | | LAB | | | | Health;[address] | | | | | | [place] | | | | | | [address] | | | | + + + + + + | MCV | 88.3Comment: Testing | 80.0 - 100.0 fl | EXTERNAL | | | | performed at [facility] | | LAB | | | | Health;[address] | | | | | | [place] | | | | | | [address] | | | | + + + + + + | MCH | 28.0Comment: Testing | 27.0 - 34.0 pg | EXTERNAL | | | | performed at [facility] | | LAB | | | | Health;[address] | | | | | | [place] | | | | | | [address] | | | | + + + + + + | MCHC | 31.6 (L)Comment: Testing | 32.0 - 35.5 | EXTERNAL | | | | performed at [facility] | g/dL | LAB | | | | Health;[address] | | | | | | [place] | | | | | | [address] | | | | + + + + + + | RDW-CV | 61.7 (H)Comment: Testing | 37 - 53 fl | EXTERNAL | | | | performed at [facility] | | LAB | | | | Health;[address] | | | | | | [place] | | | | | | [address] | | | | + + + + + + | Platelet | 415 (H)Comment: Testing | 150 - 400 K/uL | EXTERNAL | | | Count | performed at [facility] | | LAB | | | Plasma | Health;[address] | | | | | | [place] | | | | | | [address] | | | | + + + + + + | MPV | 7.4Comment: Testing | fl | EXTERNAL | | | | performed at [facility] | | LAB | | | | Health;[address] | | | | | | [place] | | | | | | [address] | | | | + + + + + + | Differentia | AUTOMATEDComment: | | EXTERNAL | | | l Type | Testing performed at | | LAB | | | | [facility];[address] | | | | | | [place] | | | | | | [address] | | | | + + + [...] EXTERNAL | | | | performed at [facility] | | LAB | | | | Health;[address] | | | | | | [place] | | | | | | [address] | | | | + + + + + + | Red Blood | 3.42 (L)Comment: Testing | 4.20 - 5.70 | EXTERNAL | | | Cells | performed at [facility] | M/uL | LAB | | | Counted | Health;[address] | | | | | | [place] | | | | | | [address] | | | | + + + + + + | Hemoglobin | 9.6 (L)Comment: Testing | 13.2 - 17.0 | EXTERNAL | | | | performed at [facility] | g/dL | LAB | | | | Health;[address] | | | | | | [place] | | | | | | [address] | | | | + + + + + + | Hematocrit, | 30.2 (L)Comment: Testing | 39.0 - 50.0 % | EXTERNAL | | | POC | performed at [facility] | | LAB | | | | Health;[address] | | | | | | [place] | | | | | | [address] | | | | + + + + + + | MCV | 88.3Comment: Testing | 80.0 - 100.0 fl | EXTERNAL | | | | performed at [facility] | | LAB | | | | Health;[address] | | | | | | [place] | | | | | | [address] | | | | + + + + + + | MCH | 28.0Comment: Testing | 27.0 - 34.0 pg | EXTERNAL | | | | performed at [facility] | | LAB | | | | Health;[address] | | | | | | [place] | | | | | | [address] | | | | + + + + + + | MCHC | 31.6 (L)Comment: Testing | 32.0 - 35.5 | EXTERNAL | | | | performed at [facility] | g/dL | LAB | | | | Health;[address] | | | | | | [place] | | | | | | [address] | | | | + + + + + + | RDW-CV | 61.7 (H)Comment: Testing | 37 - 53 fl | EXTERNAL | | | | performed at [facility] | | LAB | | | | Health;[address] | | | | | | [place] | | | | | | [address] | | | | + + + + + + | Platelet | 415 (H)Comment: Testing | 150 - 400 K/uL | EXTERNAL | | | Count | performed at [facility] | | LAB | | | Plasma | Health;[address] | | | | | | [place] | | | | | | [address] | | | | + + + + + + | MPV | 7.4Comment: Testing | fl | EXTERNAL | | | | performed at [facility] | | LAB | | | | Health;[address] | | | | | | [place] | | | | | | [address] | | | | + + + + + + | Differentia | AUTOMATEDComment: | | EXTERNAL | | | l Type | Testing performed at | | LAB | | | | [facility];[address] | | | | | | [place] | | | | | | [address] | | | | + + + [...]
--- OUTSIDE RECORDS SUMMARY | ~2020-01-31 | XMS | Encounter Summary ---
Demographics + + + | Address | [address] | | | [place] [address] | + + + | Home Phone [...] [address] | | | | | [place] | | | | | [address] | | + + + + + Care Team Providers + +------+ + | Care Wheel Presser Name | Role | Phone | + +------+ + PCP | Unavailable | + +------+ + Encounter Details +--------+ + + + + | Date | Type | Department | Care Team | Description | +--------+ + + + + | 08/14/ | Hospital | [facility] | | | | 2012 | Encounter | [facility] | | | | | | [address] | | | | | | [place] [address] | | | | | | [phone] | | | +--------+ + + + [...]
--- OUTSIDE RECORDS SUMMARY | ~2020-01-31 | XMS | Encounter Summary ---
Demographics + + + | Address | [address] | | | [place] [address] | + + + | Home Phone | | + + + | Preferred Language | Unknown | + + + | Marital Status | | + + + | Tenriism Affiliation | 1013 | + + + | Race | Unknown | + + + | Ethnic Group | Unknown | + + + Author + + + | Author | [facility] | | | and [place] | + + + | Organization | [facility] | | | and [...] [place] | | | | | [address] | | + + + + + Care Team Providers + +------+ + | Care Hub Bander Name | Role | Phone | + [...] Radiology | Diagnoses | [place] | [facility] | | | | | PAD | MD [address] | [address] | | | | | (peripheral | [address] | [address]VD | | | | | artery | [address] | [place], [place] | | | | | disease) | [place], [place] | [address] | | | | | (HCC) | [address] | Phone: | | | | | Procedures | Phone: | [phone] | | | | | IR Stent | [phone] | Fax: | | | | | Iliac | Fax: | [phone] | | | | | | [phone] | | +--------+--------+ + + + + Reason for Visit + + + | Reason | Comments | + + + | Follow-up | 6 mon f/u on CTA | + + + Encounter Details +--------+---------+ + + + | Date | Type | Department | Care Team | Description | +--------+---------+ + + + | 05/26/ | Office | [facility] | Rich [place] MD | PAD (peripheral | | 2019 | Visit | VASCULAR SURGERY | [address] | artery disease) | | | | [address] | [place] | (HCC) (Primary Dx); | | | | [place] | [address] | 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 Patient reports he i s [...] Procedure: ERCP; Surgeon: Dc Naik MD; Location: [facility] MEDICAL PROCEDURE UNIT ERCP N/A 02/12/2018 Procedure: ERCP; Surgeon: Dc Naik MD; Location: [facility] MEDICAL PROCEDURE UNIT FRACTURE SURGERY 2011 skull/facial HARDWARE REMOVAL Right Hardware placement and removal thumb HERNIA REPAIR pt has 2 hernia repairs and 3rd revision on 12-18-14 hip screw removed Right 2013 Nasal reconstruction 1977 right hip/pelvis surgery 2012 [facility] 2011 UPPER GASTROINTESTINAL ENDOSCOPY UPPER GASTROINTESTINAL ENDOSCOPY N/A 10/23/2015 Procedure: EGD; Surgeon: Adrian Aponte MD; Location: [facility] MEDICAL PROCEDURE UNIT UPPER GASTROINTESTINAL ENDOSCOPY N/A 11/18/2017 Procedure: EGD; Surgeon: Adrian Aponte MD; Location: [facility] MEDICAL PROCEDURE UNIT XR LUMBAR [...] CV: No peripheral edema, rate regular SKIN: [place], warm, dry without rash/lesion MS: ROM not [...] SURGEON: | | | Rich [place] MD COLORS CUSTODIAN: None ANESTHESIA: Moderate sedation and local | [...] and | | | brought to the Piping Design Specialist. The patient was placed supine on the [...] wire and up sized to a 6 [place] sheath. A | | | Omni flush [...] identified and brought | | |to the Piping Design Specialist. The patient was placed supine on the [...] | | |up sized to a 6 [place] sheath. A Omni flush catheter was then [...]
--- OUTSIDE RECORDS SUMMARY | ~2020-01-31 | XMS | Clinical Summary ---
Demographics + + + | Address | [address] | | | [place] [address] | + + + | Home Phone [...] Team Providers + +------+ + | Care Solution Engineer Name | Role | Phone | + +------+ + | Allison Fairchild NP | PCP | | + +------+ + Source Comments TANYA is fully live on both [facility] Ambulatory and [facility] InPatient.[facility] Allergies + + + + + + [...] | | + + + +---------+------+------+-------+ | db-oft-safdm | Chew and swallow. | | 0 [...] | | | | resent | | [place], [place] | | | | | | | | [address] | | + +--------+ +--------+ + +--------+ | RECREATION SUPERINTENDENT MEDICAID | RECREATION SUPERINTENDENT | xxxxxxxx | 09/11/19 | | | [...] | 1961 | [id number] | [place] [address] | | | valentín | | | 1 (Home) | | + +--------+ +--------+ + + | Reza Cespedes | Worker | Self | 12/19/ | | [address] | | | s Comp | | 1961 | [id number] | [place] [address] | | | | | | 1 (Home) | | + +--------+ +--------+ + +
--- OUTSIDE RECORDS SUMMARY | ~2020-01-31 | XMS | Encounter Summary ---
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 | | LABORATORY | | + + + + + + | Cl | 107 | 98 - 109 mmol/L | [facility] | | | | | | [facility] | | | | | | [facility] | | | | | | [facility] - | | | | | | LABORATORY | | + + + + + + | CO2 | 25 | 24 - 31 mmol/L | [facility] | | | | | | [facility] | | | | | [facility] | | | | | | C[facility] - | | | | | | LABORATORY | | + + + + + + | Anion Gap | 7 | 3 - 16 mmol/L | [facility] | | | | | | [facility] | | | | | | [facility] | | | | | | C[facility] - | | | | | | LABORATORY | | + + + + + + | Glucose | 111 (H) | 70 - 109 mg/dL | [facility] | | | | | | [facility] | | | | | | [facility] | | | | | | CENTER - | | | | | | LABORATORY | | + + + + + + | BUN | 11 | 7 - 18 mg/dL | [facility] | | | | | | [facility] | | | | | | [facility] | | | | | | C[facility] - | | | | | | LABORATORY | | + + + + + + | Creatinine | 0.85 | 0.60 - 1.30 | [facility] | | | | | mg/dL | [facility] | | [facility] | [facility] | | | | | | C[facility] - | | | | | | LABORATORY | | + + + + + + | eGFR if not | >60Comment: GLOMERULAR | >=60 | [facility] | | | | FILTRATION | mL/min/1.73m2 | [facility] | | | [place] | RATE,ESTIMATED | | MEDICAL | | | | mL/min/1.41j2Zasj than | | CENTER - | | | | 60 Chronic kidney | | LABORATORY | | | | disease,if found over a | | | | | | 3-month period.Less than | | | | | | 15 Kidney failureFor | | | | | | | | | | | | Americans,multiply the | | | | | | calculated GFR by 1.21. | | | | | | | | | | + + + + + + | Calcium | 8.5 | 8.3 - 10.5 | [facility] | | | | | mg/dL | [facility] | | | | | | MEDICAL | | | | | | CENTER - | | | | | | LABORATORY | | + + + + + + | Albumin | 2.8 (L) | 3.2 - 5.0 g/dL | [facility] | | | | | | [facility] | | | | | | [facility] | | | | | | CENTER - | | | | | | LABORATORY | | + + + + + + | Bilirubin | 1.6 (H) | 0.1 - 1.5 mg/dL | [facility] | | | Total | | | [facility] | | | | | | MEDICAL | | | | | | CENTER - | | | | | | LABORATORY | | + + + + + + | Total | 5.6 (L) | 6.0 - 7.8 g/dL | [facility] | | | Protein | | | [facility] | | | | | | MEDICAL | | | | | | CENTER - | | | | | | LABORATORY | | + + + + + + | AST | 40 | 10 - 42 U/L | [facility] | | | | | | [facility] | | | | | | [facility]ICAL | | | | | | CENTER - | | | | | | LABORATORY | | + + + + + + | ALT | 68 (H) | 6 - 45 U/L | [facility] | | | | | | [facility] | | | | | | [facility]ICAL | | | | | | CENTER - | | | | | | LABORATORY | | + + + + + + | Alkaline | 311 (H) | 40 - 110 U/L | [facility] | | | Phosphatase | | | [facility] | | | | | | MEDICAL | | | | | | CENTER - | | | | | | LABORATORY | | + + + + + + | Globulin | 2.8 | 2.1 - 3.8 g/dL | [facility] | | | | | | [facility] | | | | | | [facility]ICAL | | | | | | CENTER - | | | | | | LABORATORY | | + + + + + + | Albumin/Peggy | 1.0 | 0.8 - 2.0 | [facility] | | | bulin Ratio | | | [facility] | | | | | | MEDICAL | | | | | | CENTER - | | | | | | LABORATORY | | + + + + + + | BUN/Creatin | 12.9 | | [facility] | | | ine Ratio [...] + + | Performing | Address | City/State/[place] | Phone Number | | Organization | | | | + + + + + | [facility] | [address] | [place] | [phone] | | [facility] | | [address] | | | - LABORATORY | | | | + + + + + [place] ERCP (01/22/2018 2:50 PM PDT) + + | Specimen | + + | | + + + + + | Narrative | Performed At | + + + | FLUOROSCOPY FOR ERCP 01/22/2018 2:15 PM CLINICAL HISTORY: intra | [facility] | | op ERCP COMPARISON: Preceding MRCP FINDINGS: Two fluoroscopic | | | spot images from ERCP are submitted. The initial image demonstrates | | | the presence of an endoscope with cannulation of the common bile | | | duct, which demonstrates absence of the previously noted stent and | | | contrast opacification of a portion of the duct, which demonstrates | | | the presence of radiolucent filling defects distally. The final | | | image demonstrates replacement of a stent at the level of the duct | | | with evacuation of contrast from the duct and traversing duodenum. | | | IMPRESSION - 1. FLUOROSCOPY FOR ERCP DESCRIBED. PLEASE SEE | | | THE OPERATIVE REPORT FOR FURTHER DETAILS. Dictated and Signed by: | | | Loki Harris MD Electronically signed: 01/22/2018 2:58 PM | | + + + + + | Procedure Note | + + | Ethan, Rad Results In - 01/22/2018 3:01 PM PDT FLUOROSCOPY FOR ERCP 01/22/2018 2:15 PM | | | | CLINICAL HISTORY: intra op ERCP | | | | COMPARISON: Preceding MRCP | | | | FINDINGS: Two fluoroscopic spot images from ERCP are submitted. The initial | | image demonstrates the presence of an endoscope with cannulation of the common | | bile duct, which demonstrates absence of the previously noted stent and contrast | | opacification of a portion of the duct, which demonstrates the presence of | | radiolucent filling defects distally. The final image demonstrates replacement | | of a stent at the level of the duct with evacuation of contrast from the duct | | and traversing duodenum. | | | | IMPRESSION - | | 1. FLUOROSCOPY FOR ERCP DESCRIBED. PLEASE SEE THE OPERATIVE REPORT FOR | | FURTHER DETAILS. | | | | Dictated and Signed by: Loki Harris MD | | Electronically signed: 01/22/2018 2:58 PM | + + + +---------+ + + | Performing | Address | City/State/Zipcode | Phone Number | | Organization | | | | + +---------+ + + | [facility] | | | | + +---------+ + + ERCP (01/22/2018 2:09 PM PDT) + + | Specimen | + + | | + + + + -+ | Narrative | Performed At | + + -+ | | [facility] | | GastroenterologyPatient Name: Reza CespedesProelizabethblanca Date: 01/22/2018 | [facility] | | 2:09 PMMRN: [id number] #: [id number] of : | | | 1960Admit Type: InpatientAge: 57[facility] 01Gender: MaleNote | | | Status: FinalizedAttending MD: Dc Naik , [facility]cedure: | | | ERCPIndications: Abnormal abdominal CT, Bile duct stone on | | | Computed Tomogram Scan, Abnormal MRCP, | | | Abnormal abdominal ultrasoundProviders: Dc Naik, | | | , Perla Ponce RN, Aracelis Lewis RN, | | | Jluis Ruiz CMA, Edyta Rees, Automatic Seamer, | | | Tremaine Stevenson MD (Anesthesia Staff)Medicines: | | | Propofol per AnesthesiaComplications: No immediate | | | complications. Estimated blood loss: NoneProcedure: | | | Pre-Anesthesia Assessment: - Prior to the procedure, a History | | | and Physical was performed, and patient medications, allergies | | | and sensitivities were reviewed. The patient's tolerance of | | | previous anesthesia was reviewed. - Prior to the procedure, a | | | History and Physical was performed, and patient medications [...] | | | the anesthesiologist and the electro mechanical solar technician in the endoscopy suite. | | | Mental Status Examination: alert and oriented. Airway | | | Examination: normal oropharyngeal airway and neck mobility and | | | Mallampati Class III (part of the uvula and soft palate | | | visualized). Respiratory Examination: clear to auscultation. CV | | | Examination: normal. Prophylactic Antibiotics: The patient | | | requires prophylactic antibiotics for the planned ERCP in an | | | obstructed bile duct. The patient received antibiotic therapy before | | | the procedure. Prior Anticoagulants: The patient has taken no | | | previous anticoagulant or antiplatelet agents. ASA Grade | | | Assessment: III - A patient with severe systemic disease. After | | | reviewing the risks and benefits, the patient was deemed in | | | satisfactory condition to undergo the procedure. The anesthesia | | | plan was to use monitored anesthesia care (MAC). Immediately | | | prior to administration of medications, the patient was | | | re-assessed for adequacy to receive sedatives. The heart rate, | | | respiratory rate, oxygen saturations, blood pressure, adequacy of | | | pulmonary ventilation, and response to care were monitored | | | throughout the procedure. The physical status of the patient | | | was re-assessed after the procedure. - After reviewing | | | the risks and benefits, the patient was deemed in satisfactory | | | condition to undergo the procedure. - Using IV propofol under | | | the supervision of an anesthesiologist was determined to be | | | medically necessary for this procedure based on severe | | | comorbidity (greater than ASA Grade II) and complex procedure (ERCP, | | | EUS). - Immediately prior to administration of | | | medications, the patient was re-assessed for adequacy to | | | receive sedatives. - The heart rate, respiratory rate, oxygen | | | saturations, blood pressure, adequacy of pulmonary ventilation, | | | and response to care were monitored throughout the procedure. | | | - The physical status of the patient was re-assessed after the | | | procedure. After obtaining informed consent, the scope was | | | passed under direct vision. Throughout the procedure, the | | | patient's blood pressure, pulse, and oxygen saturations were | | | monitored continuously. The endoscope was introduced through | | | the mouth, and advanced to the duodenum and used to inject | | | contrast into the bile duct. The ERCP was accomplished without | | | difficulty. The patient tolerated the procedure well.Findings: A | | | biliary stent was visible on the director of scout work film. The esophagus was | | | successfully intubated under direct vision. The scope was advanced to | | | the major papilla in the descending duodenum without detailed | | | examination of the pharynx, larynx and associated structures, | | | and upper GI tract. The upper GI tract was grossly normal. One | | | temporary stent originating in the biliary tree was emerging | | | from the major papilla. The stent was visibly occluded. One | | | stent was removed from the biliary tree using a snare. To | | | discover objects, the biliary tree was swept with a 9 mm | | | balloon and 12 mm balloon starting at the bifurcation. Many stones | | | were removed. No stones remained. Sludge was swept from the duct. | | | The biliary tree contained one temporary stent. This was found | | | to be visibly occluded. The stent was removed using a snare. A | | | 10 Fr by 5 cm temporary stent with a single external flap and a | | | single internal flap was placed 4.5 cm into the biliary tree. | | | Bile flowed through the stent. The stent was in good | | | position.Impression: - One visibly occluded stent from the | | | biliary tree was seen in the major papilla. - | | | Choledocholithiasis was found. Complete removal was accomplished by | | | balloon extraction. - One stent was removed from the | | | biliary tree. - The biliary tree was swept and sludge was found. | | | - One stent was exchanged in the biliary tree.Recommendation: | | | - [facility] patient to [facility] for [facility] care. - | | | Advance diet as tolerated - advance as tolerated today. - | | | Continue present medications. - Observe patient's clinical | | | course. - Return to this GI lab for stent removal at ERCP in 3 | | | weeks. - Telephone GI clinic if symptomatic.Dc Naik | | | 01/22/2018 2:56:33 PMThis report has been signed | | | electronically.Number of Addenda: 0Note Initiated On: 01/22/2018 2:09 | | | PMTotal Procedure Duration: 0 hours 16 minutes 20 seconds Scope In: | | | 2:23:41 PMScope Out: 2:40:01 PM [facility] | | | [place], [address] [place] [id number] | | | - Advance diet as tolerated - advance as tolerated today. | | | - Continue present medications. | | | - Observe patient's clinical course. | | | - Return to this GI lab for stent removal at ERCP in 3 weeks. | | | - Telephone GI clinic if symptomatic. | | |Dc Naik MD | | |01/22/2018 2:56:33 PM | | |This report has been signed electronically. | | |Number of Addenda: 0 | | |Note Initiated On: 01/22/2018 2:09 PM | | |Total Procedure Duration: 0 hours 16 minutes 20 seconds | | |Scope In: 2:23:41 PM | | |Scope Out: 2:40:01 PM | | | [facility], [address] [place] [address] | | | [id number] | | + + -+ + +---------+ + + | Performing | Address | City/State/Zipcode | Phone Number | | Organization | | | | + +---------+ + + | [facility] | | | | + +---------+ + + MRI MRCP Liver wo Contrast (01/22/2018 6:28 AM PDT) + + | Specimen | + + | | + + + + + | Narrative | Performed At | + + + | MRI MRCP LIVER WO CONTRAST 01/22/2018 5:28 AM | [facility] | | HISTORY:?intrahepatic and common hepatic ductal dilation noted on RUQ | | | u/s. COMPARISON: CT dated January 21, 2018 from an outside | | | institution. Abdominal ultrasound dated January 22, 2018. PROTOCOL: | | | Coronal T2 director of scout work, axial T2 director of scout work, coronal 3D respiratory triggered, | | | coronal T2 thin slab, T2 thick slab set. Reconstruction views were | | | obtained. FINDINGS: There is motion degradation. The | | | gallbladder is absent. There is a stent in the common bile duct. | | | This limits evaluation of the duct. There appears to be debris | | | and filling defects in the proximal and distal duct adjacent to the | | | stent. The more defined of these structures measure about 4 and 5 | | | mm. The pancreatic duct is mildly prominent. It measures 4 mm. | | | There is intrahepatic biliary ductal dilatation. There is a low | | | insertion of the cystic duct. Probable atelectasis in the lung | | | bases. Probable cyst in the left kidney. No renal obstruction. | | | No gross pathology in the liver or spleen. No adrenal masses. | | | No evidence for gastrointestinal tract obstruction. No aneurysmal | | | dilatation of the abdominal aorta. No visible abdominal | | | lymphadenopathy. No visible pathologic marrow lesions. | | | IMPRESSION - Stented common bile duct. This limits evaluation of | | | the duct. There appear to be filling defects and/or debris within | | | the common bile duct. Intrahepatic biliary ductal dilatation. | | | The etiology of this is uncertain. Mild prominence of the | | | pancreatic duct. Both the common bile duct and pancreatic duct | | | taper appropriately to the ampulla. The preliminary report is | | | provided by Dr. Hardy on January 22, 2018 at 7:40 AM. Dictated and | | | Signed by: Dc Lobo MD Electronically signed: 01/22/2018 | | | 8:33 AM | | + + + + + | Procedure Note | + + | Ethan, Rad Results In - 01/22/2018 8:36 AM PDT MRI MRCP LIVER WO CONTRAST 01/22/2018 | | 5:28 AM HISTORY:?intrahepatic and common hepatic ductal dilation noted on RUQ | | u/s.COMPARISON: CT dated January 21, 2018 from an outside institution. Abdominalultrasound | | dated January 22, 2018.PROTOCOL: Coronal T2 director of scout work, axial T2 director of scout work, coronal 3D respiratory | | triggered,coronal T2 thin slab, T2 thick slab set. Reconstruction views were | | obtained.FINDINGS: There is motion degradation.The gallbladder is absent. There is a | | stent in the common bile duct. Thislimits evaluation of the duct. There appears to be | | debris and filling defectsin the proximal and distal duct adjacent to the stent. The | | more defined ofthese structures measure about 4 and 5 mm. The pancreatic duct is | | mildlyprominent. It measures 4 mm. There is intrahepatic biliary ductal dilatation. | | There is a low insertion of the cystic duct.Probable atelectasis in the lung bases. | | Probable cyst in the left kidney. Norenal obstruction. No gross pathology in the liver | | or spleen. No adrenalmasses. No evidence for gastrointestinal tract obstruction. No | | aneurysmaldilatation of the abdominal aorta. No visible abdominal lymphadenopathy. | | Novisible pathologic marrow lesions.IMPRESSION -Stented common bile duct. This limits | | evaluation of the duct. There appear frank filling defects and/or debris within the | | common bile duct.Intrahepatic biliary ductal dilatation. The etiology of this is | | uncertain.Mild prominence of the pancreatic duct.Both the common bile duct and | | pancreatic duct taper appropriately to theampulla.The preliminary report is provided by | | Dr. Hardy on January 22, 2018 at 7:40 AM.Dictated and Signed by: Dc Lobo MD | | Electronically signed: 01/22/2018 8:33 AM | |masses. No evidence for gastrointestinal tract obstruction. No aneurysmal | |dilatation of the abdominal aorta. No visible abdominal lymphadenopathy. No | |visible pathologic marrow lesions. | | | |IMPRESSION - | | | |Stented common bile duct. This limits evaluation of the duct. There appear to | |be filling defects and/or debris within the common bile duct. | | | |Intrahepatic biliary ductal dilatation. The etiology of this is uncertain. | | | |Mild prominence of the pancreatic duct. | | | |Both the common bile duct and pancreatic duct taper appropriately to the | |ampulla. | | | |The preliminary report is provided by Dr. Hardy on January 22, 2018 at 7:40 AM. | | | |Dictated and Signed by: Dc Lobo MD | | Electronically signed: 01/22/2018 8:33 AM | + + + +---------+ + + | Performing | Address | City/State/Zipcode | Phone Number | | Organization | | | | + +---------+ + + | [facility] | | | | + +---------+ + + HIV Type 1 and 2 Ab Screen, Rapid (01/22/2018 4:29 AM PDT) + + + + + + | Component | Value | Ref Range | Performed | Pathologist | | | | | At | Signature | + + + + + + | HIV 1 and 2 | Non-Reactive | Non-Reactive | [facility] | | | Ab, Rapid | | | [facility] | | | | | | MEDICAL | | | | | | CENTER - | | | | | | LABORATORY | | + + + + + + | HIV-1 P24 | Non-Reactive | Non-Reactive | [facility] | | | Ag | | | [facility] | | [...] | + + + + + | [facility] | [address] | [place] | [phone] | | [facility] | | [address] | | | - LABORATORY | | | | + + + + + Smooth Muscle Ab (01/22/2018 4:27 AM PDT) + + + + + + | Component | Value | Ref Range | Performed | Pathologist | | | | | At | Signature | + + + + + + | Smooth | 29 (H)Comment: | 0 - 19 Units | [facility] | | | Muscle Ab | Negative | | LAB [facility] | | | | | | - [facility]KR | | | | 0 - 19 | | | | | | Weak | | | | | | positive | | | | | | 20 - 30 | | | | | | Moderate | | | | | | to strong positive | | | | | | >30 Actin Antibodies | | | | | | are found in 52-85% of | | | | | | patients with autoimmune | | | | | | hepatitis or chronic | | | | | | active hepatitis and in | | | | | | 22% of patients with | | | | | | primary biliary | | | | | | cirrhosis. | | | | + + + + + + | [facility] | 7.1Comment: | 0.0 - 20.0 | [facility] | | | AL M2 AB, | | Units | LAB [facility] | | | IGG | Negative | | - BKR | | | | 0.0 - 20.0 | | | | | | | | | | | | Equivocal | | | | | | 20.1 - 24.9 | | | | | | | | | | | | Positive | | | | | | | | | | | | >24.9Mitochondrial (M2) | | | | | | Antibodies are found in | | | | | | 90-96% ofpatients with | | | | | | primary biliary | | | | | | cirrhosis. | | | | + + + + + + + + | Specimen | + + | Blood | + + + + + | Narrative | Performed At | + + + | Performed at: 01 - [facility] [address] [facility], | REFERENCE LAB | | [place], [place] [id number] Shell Molding Roller Blast Operator: Rom Stinson MD, Phone: | [facility] | | [phone] | | + + + + + + + + | Performing | Address | City/State/Zipcode | Phone Number | | Organization | | | | + + + + + | REFERENCE LAB | [address] | [place], [place] | [phone] | | [facility] | [address] [facility] | [address] | | + + + + + CHARLEE Qual, EIA, Reflex (01/22/2018 4:27 AM PDT) + + + + + + | Component | Value | Ref Range | Performed | Pathologist | | | | | At | Signature | + + + + + + | CHARLEE Screen, | Negative | Negative | [facility] | | | Qual | | | LAB [facility] | | | | | | - BKR | | + + + + + + + + | Specimen | + + | Blood | + + + + + | Narrative | Performed At | + + + | Performed at: 01 - [facility] [address], | REFERENCE LAB | | [place], [place] [id number] Shell Molding Roller Blast Operator: Arturo Barriga MD, Phone: | [facility] | | [phone] | | + + + + + + + + | Performing | Address | City/State/Zipcode | Phone Number | | Organization | | | | + + + + + | REFERENCE LAB | [address] | [place], [place] | [phone] | | [facility] | [address] | [address] | | + + + + + Mitochondrial Ab, M2 (01/22/2018 4:27 AM PDT) + + + + + + | Component | Value | Ref Range | Performed | Pathologist | | | | | At | Signature | + + + + + + | [facility] | 7.7Comment: | 0.0 - 20.0 | [facility] | | | AL M2 AB, | | Units | LAB [facility] | | | IGG | Negative | | - BKR | | | | 0.0 - 20.0 | | | | | | | | | | | | Equivocal | | | | | | 20.1 - 24.9 | | | | | | | | | | | | Positive | | | | | | | | | | | | >24.9Mitochondrial (M2) | | | | | | Antibodies are found in | | | | | | 90-96% ofpatients with | | | | | | primary biliary | | | | | | cirrhosis. | | | | + + + + + + + + | Specimen | + + | Blood | + + + + + | Narrative | Performed At | + + + | Performed at: 01 - [facility] [address], | REFERENCE LAB | | [place] [id number] Shell Molding Roller Blast Operator: Rom Stinson MD, Phone: | [facility] | | [phone] | | + + + + + + + + | Performing | Address | City/State/Zipcode | Phone Number | | Organization | | | | + + + + + | REFERENCE LAB | [address] | [place], [place] | [phone] | | [facility] | [address] [facility] | [address] | | + + + + + Bilirubin, Direct (01/22/2018 4:27 AM PDT) + + + + + + | Component | Value | Ref Range | Performed | Pathologist | | | | | At | Signature | + + + + + + | Bilirubin, | 2.10 (H) | 0.00 - 0.20 | [facility] | | | Direct | | mg/dl | [facility] | | | | [...] | + + + + + | [facility] | [address] | [place] | [phone] | | [facility] | | [address] | | | - LABORATORY | | | | + + + + + Acetaminophen Level (01/22/2018 4:27 AM PDT) + +-------+ + + + | Component | Value | Ref Range | Performed | Pathologist | | | | | At | Signature | + +-------+ + + + | Acetaminoph | <10 | <10 ug/mL | [facility] | | | en Level | | | [facility] | | [...] + | [facility] | [address] | [place] | [phone] | | [facility] | | [address] | | | - LABORATORY | | | | + + + + + Ethanol (01/22/2018 4:27 AM PDT) + +-------+ + + + | Component | Value | Ref Range | Performed | Pathologist | | | | | At | Signature | + +-------+ + + + | ALCOHOL, | <5 | <400 mg/dL | [facility] | | | SERUM/PLASM | | | [facility] | | | A | | | MEDICAL | | | [...] | [address] | [place] | [phone] | | [facility] | | [address] | | | - LABORATORY | | | | + + + + + GGT (01/22/2018 4:27 AM PDT) + +---------+ + + + | Component | Value | Ref Range | Performed | Pathologist | | | | | At | Signature | + +---------+ + + + | GGT | 580 (H) | 7 - 50 U/L | [facility] | | | | | [...] + + + + + | [facility] | [address] | [place] | [phone] | | [facility] | | [address] | | | - LABORATORY | | | | + + + + + C-Reactive Protein (01/22/2018 4:27 AM PDT) + + + + + + | Component | Value | Ref Range | Performed | Pathologist | | | | | At | Signature | + + + + + + | CRP | 164.48 (H) | <8.00 mg/L | [facility] | | | | | | [facility] [...] + + | [facility] | [address] | [place] | [phone] | | [facility] | | [address] | | | - LABORATORY | | | | + + + + + Sedimentation Rate (01/22/2018 4:27 AM PDT) + +--------+ + + + | Component | Value | Ref Range | Performed | Pathologist | | | | | At | Signature | + +--------+ + + + | Erythrocyte | 39 (H) | <20 mm/hr | [facility] | | | | | | [facility] | | | [facility] | | | MEDICAL | | | on Rate | | | CENTER - | | | | | | LABORATORY | | + +--------+ + + + + + | Specimen | + + | Blood | + + + + + + + | Performing | Address | City/State/Zipcode | Phone Number | | Organization | | | | + + + + + | [facility] | [address] | [place], [place] | [phone] | | [facility] | | [address] | | | - LABORATORY | | | | + + + + + Hepatitis Panel, Acute (01/22/2018 4:27 AM PDT) + + + + + + | Component | Value | Ref Range | Performed | Pathologist | | | | | At | Signature | + + + + + + | HEP A IGM | Negative | Negative | [facility] | | | AB, REF | | | LAB [facility] | | | | | | - BKR | | + + + + + + | Hepatitis B | Negative | Negative | [facility] | | | Surface Ag | | | LAB [facility] | | | | | | - BKR | | + + + + + + | HEP B Core | Negative | Negative | REFERENCE | | | IGM | | | LAB [facility] | | | Antibody | | | - [facility] | | + + + + + + | Hepatitis C | >11.0 (H)Comment: | 0.0 - 0.9 s/co | REFERENCE | | | Ab | | ratio | LAB [facility] | | | | | | - [facility] | | | | Negative: < 0.8 | | | | | | | | | | | | | | | | | | Indeterminate: 0.8 - 0.9 | | | | | | | | | | | | | | | | | | Positive: > 0.9 | | | | | | The CDC recommends that | | | | | | a positive HCV antibody | | | | | | result be followed up | | | | | | with a HCV Nucleic Acid | | | | | | Amplification test | | | | | | ([id number]). | | | | + + + + + + + + | Specimen | + + | Blood | + + + + + | Narrative | Performed At | + + + | Performed at: 01 [address] [address], | REFERENCE LAB | | [place], [place] [id number] [employer] Bl[employer] Operator: Sameul Wallace MD, Phone: | [facility] | | [phone] | | + + + + + + + + | Performing | Address | City/State/Zipcode | Phone Number | | Organization | | | | + + + + + | REFERENCE LAB | [id number] | [place], [place] | [phone] | | [facility] | [address] | [address] | | + + + + + Protime INR (01/22/2018 4:27 AM PDT) + + + + + + | Component | Value | Ref Range | Performed | Pathologist | | | | | At | Signature | + + + + + + | Prothrombin | 13.3 | 11.3 - 13.9 | [facility] | | | Time | | seconds | [facility] | | | | | | MEDICAL | | | | | | CENTER - | | | | | | LABORATORY | | + + + + + + | INR | 1.02Comment: Usual Oral | 0.90 - 1.10 | [facility] | | | | Anticoagulation Range: | | [facility] | | | | 2.0 - 3.0High | | MEDICAL | | | | Level Oral | | CENTER - | | | | Anticoagulation Range: | | LABORATORY | | | | 2.5 - 3.5 | | | | + + + + + + + + | Specimen | + + | Blood | + + + + + + + | Performing | Address | City/State/Zipcode | Phone Number | | Organization | | | | + + + + + | [facility] | [address] | [place] | [phone] | | [facility] | | [address] | | | - LABORATORY | | | | + + + + + Magnesium (01/22/2018 4:27 AM PDT) + +-------+ + + + | Component | Value | Ref Range | Performed | Pathologist | | | | | At | Signature | + +-------+ + + + | Magnesium | 1.8 | 1.8 - 2.5 mg/dL | [facility] [...] + | [facility] | [address] | [place] | [phone] | | [facility] | | [address] | | | - LABORATORY | | | | + + + + + CBC with Differential (01/22/2018 4:27 AM PDT) + + + + + + | Component | Value | Ref Range | Performed | Pathologist | | | | | At | Signature | + + + + + + | WBC | 9.2 | 4.0 - 11.0 K/uL | [facility] | | | | | | [facility] | | | | | | MEDICAL | | | | | | CENTER - | | | | | | LABORATORY | | + + + + + + | RBC | 4.49 | 4.30 - 5.70 | [facility] | | | | | M/uL | [facility] | | | | | | MEDICAL | | | | | | CENTER - | | | | | | LABORATORY | | + + + + + + | Hemoglobin | 14.1 | 13.5 - 18.0 | [facility] | | | | | g/dL | [facility] | | | | | | MEDICAL | | | | | | CENTER - | | | | | | LABORATORY | | + + + + + + | Hematocrit | 40.5 | 40.0 - 51.0 % | [facility] | | | | | | [facility] | | | | | | MEDICAL | | | | | | CENTER - | | | | | | LABORATORY | | + + + + + + | MCV | 90.2 | 83.0 - 101.0 fL | [facility] | | | | | | [facility] | | | | | | MEDICAL | | | | | | CENTER - | | | | | | LABORATORY | | + + + + + + | MCH | 31.5 | 28.0 - 35.0 pg | [facility] | | | | | | [facility] | | | | | | MEDICAL | | | | | | CENTER - | | | | | | LABORATORY | | + + + + + + | MCHC | 34.9 | 32.0 - 36.0 | [facility] | | | | | g/dL | [facility] | | | | | | MEDICAL | | | | | | CENTER - | | | | | | LABORATORY | | + + + + + + | RDW-CV | 15.3 (H) | <15.0 % | [facility] | | | | | | [facility] | | | | | | MEDICAL | | | | | | CENTER - | | | | | | LABORATORY | | + + + + + + | Platelet | 288 | 140 - 440 K/uL | [facility] | | | Count | | | [facility] | | | | | | MEDICAL | | | | | | CENTER - | | | | | | LABORATORY | | + + + + + + | MPV | 8.7 | fL | [facility] | | | | | | [facility] | | | | | | MEDICAL | | | | | | CENTER - | | | | | | LABORATORY | | + + + + + + | % | 61.5 | 45.0 - 82.0 % | [facility] | | | Neutrophils | | | [facility] | | | | | | MEDICAL | | | | | | CENTER - | | | | | | LABORATORY | | + + + + + + | % | 23.6 | 20.0 - 45.0 % | [facility] | | | Lymphocytes | | | [facility] | | | | | | MEDICAL | | | | | | CENTER - | | | | | | LABORATORY | | + + + + + + | % Monocytes | 12.3 (H) | 4.0 - 12.0 % | [facility] | | | | | | [facility] | | | | | | MEDICAL | | | | | | CENTER - | | | | | | LABORATORY | | + + + + + + | % | 1.7 | 0.0 - 5.0 % | [facility] | | | Eosinophils | | | [facility] | | | | | | MEDICAL | | | | | | CENTER - | | | | | | LABORATORY | | + + + + + + | % Basophils | 0.9 | 0.0 - 1.0 % | [facility] | | | | | | [facility] | | | | | | MEDICAL | | | | | | CENTER - | | | | | | LABORATORY | | + + + + + + | Absolute | 5.70 | 1.80 - 8.50 | [facility] | | | Neutrophils | | K/uL | [facility] | | | | | | MEDICAL | | | | | | CENTER - | | | | | | LABORATORY | | + + + + + + | Absolute | 2.20 | 0.60 - 3.20 | [facility] | | | Lymphocytes | | K/uL | [facility] | | | | | | MEDICAL | | | | | | CENTER - | | | | | | LABORATORY | | + + + + + + | Absolute | 1.10 (H) | 0.00 - 1.00 | [facility] | | | Monocytes | | K/uL | [facility] | | | | | | MEDICAL | | | | | | CENTER - | | | | | | LABORATORY | | + + + + + + | Absolute | 0.20 | 0.00 - 0.40 | [facility] | | | Eosinophils | | K/uL | [facility] | | | | | | MEDICAL | | | | | | CENTER - | | | | | | LABORATORY | | + + + + + + | Absolute | 0.10 | 0.00 - 0.10 | [facility] | | | Basophils | | K/uL | [facility] | | | | [...] | + + + + + | [facility] | [address] | [place] | [phone] | | [facility] | | [address] | | | - LABORATORY | | | | + + + + + Comprehensive Metabolic Panel (01/22/2018 4:27 AM PDT) + + + + + + | Component | Value | Ref Range | Performed | Pathologist | | | | | At | Signature | + + + + + + | Na | 138 | 136 - 149 | [facility] | | | | | mmol/L | [facility] | | | | | | MEDICAL | | | | | | CENTER - | | | | | | LABORATORY | | + + + + + + | K | 3.7 | 3.5 - 5.1 | [facility] | | | | | mmol/L | [facility] | | | | | | MEDICAL | | | | | | CENTER - | | | | | | LABORATORY | | + + + + + + | Cl | 107 | 98 - 109 mmol/L | [facility] | | | | | | [facility] | | | | | | MEDICAL | | | | | | CENTER - | | | | | | LABORATORY | | + + + + + + | CO2 | 24 | 24 - 31 mmol/L | [facility] | | | | | | [facility] | | | | | | MEDICAL | | | | | | CENTER - | | | | | | LABORATORY | | + + + + + + | Anion Gap | 7 | 3 - 16 mmol/L | [facility] | | | | | | [facility] | | | | | | MEDICAL | | | | | | CENTER - | | | | | | LABORATORY | | + + + + + + | Glucose | 88 | 70 - 109 mg/dL | [facility] | | | | | | [facility] | | | | | | MEDICAL | | | | | | CENTER - | | | | | | LABORATORY | | + + + + + + | BUN | 15 | 7 - 18 mg/dL | [facility] | | | | | | [facility] | | | | | | MEDICAL | | | | | | CENTER - | | | | | | LABORATORY | | + + + + + + | Creatinine | 0.90 | 0.60 - 1.30 | [facility] | | | | | mg/dL | [facility] | | | | | | MEDICAL | | | | | | CENTER - | | | | | | LABORATORY | | + + + + + + | eGFR if not | >60Comment: GLOMERULAR | >=60 | [facility] | | | | FILTRATION | mL/min/1.73m2 | [facility] | | | [place] | RATE,ESTIMATED | | MEDICAL | | | | mL/min/1.14b1Rixx than | | CENTER - | | | | 60 Chronic kidney | | LABORATORY | | | | disease,if found over a | | | | | | 3-month period.Less than | | | | | | 15 Kidney failureFor | | | | | | | | | | | | Americans,multiply the | | | | | | calculated GFR by 1.21. | | | | | | | | | | + + + + + + | Calcium | 8.1 (L) | 8.3 - 10.5 | [facility] | | | | | mg/dL | [facility] | | | | | | MEDICAL | | | | | | CENTER - | | | | | | LABORATORY | | + + + + + + | Albumin | 3.1 (L) | 3.2 - 5.0 g/dL | [facility] | | | | | | [facility] | | | | | | MEDICAL | | | | | | CENTER - | | | | | | LABORATORY | | + + + + + + | Bilirubin | 3.8 (H) | 0.1 - 1.5 mg/dL | [facility] | | | Total | | | [facility] | | | | | | MEDICAL | | | | | | CENTER - | | | | | | LABORATORY | | + + + + + + | Total | 6.2 | 6.0 - 7.8 g/dL | [facility] | | | Protein | | | [facility] | | | | | | MEDICAL | | | | | | CENTER - | | | | | | LABORATORY | | + + + + + + | AST | 72 (H) | 10 - 42 U/L | [facility] | | | | | | [facility] | | | | | | MEDICAL | | | | | | CENTER - | | | | | | LABORATORY | | + + + + + + | ALT | 104 (H) | 6 - 45 U/L | [facility] | | | | | | [facility] | | | | | | MEDICAL | | | | | | CENTER - | | | | | | LABORATORY | | + + + + + + | Alkaline | 381 (H) | 40 - 110 U/L | [facility] | | | Phosphatase | | | [facility] | | | | | | [facility] | | | | | | CENTER - | | | | | | LABORATORY | | + + + + + + | Globulin | 3.1 | 2.1 - 3.8 g/dL | [facility] | | | | | | [facility] | | | | | | [facility] | | | | | | CENTER - | | | | | | LABORATORY | | + + + + + + | Albumin/Peggy | 1.0 | 0.8 - 2.0 | [facility] | | | bulin Ratio | | | [facility] | | | | | | MEDICAL | | | | | | CENTER - | | | | | | LABORATORY | | + + + + + + | BUN/Creatin | 16.7 | | [facility] | | | ine Ratio [...] + + + + + | [facility] | [address] | [place] | [phone] | | [facility] | | [address] | | | - LABORATORY | | | | + + + + + US Abdomen Limited (01/22/2018 2:00 AM PDT) + + | Specimen | + + | | + + + + + | Narrative | Performed At | + + + | LIMITED ULTRASOUND ABDOMEN 01/22/2018 1:08 AM CLINICAL HISTORY: | [facility] | | significant LFT abnormalities, eval for biliary obstruction | | | COMPARISON: Preceding CT FINDINGS: The pancreas is poorly | | | visualized due to overlying bowel gas and suboptimal acoustic | | | windows. The liver measures 17.4 cm in craniocaudal dimension. | | | There is slightly increased hepatic echotexture potentially | | | reflecting fatty infiltration. The gallbladder is absent. The | | | common duct measures up to 7 mm in diameter. A common duct stent is | | | again apparent. There is central intrahepatic biliary ductal | | | dilation as well. No ascites is visible. The portal and hepatic | | | veins are patent and demonstrate appropriately directed flow. | | | IMPRESSION - 1. BORDERLINE TO MILD EXTRAHEPATIC BILIARY DUCTAL | | | DILATION AND CENTRAL INTRAHEPATIC DUCTAL DILATION, WITH A COMMON DUCT | | | STENT IN POSITION. 2. MILD HEPATOMEGALY AND SLIGHTLY INCREASED | | | ECHOTEXTURE POTENTIALLY REFLECTING FATTY INFILTRATION. Dictated | | | and Signed by: Loki Harris MD Electronically signed: 01/22/2018 | | | 7:13 AM | | + + + + + | Procedure Note | + + | Ethan, Rad Results In - 01/22/2018 7:16 AM PDT LIMITED ULTRASOUND ABDOMEN 01/22/2018 | | 1:08 AMCLINICAL HISTORY: significant LFT abnormalities, eval for biliary | | obstructionCOMPARISON: Preceding CTFINDINGS: The pancreas is poorly visualized due to | | overlying bowel gas andsuboptimal acoustic windows. The liver measures 17.4 cm in | | craniocaudaldimension. There is slightly increased hepatic echotexture | | potentiallyreflecting fatty infiltration. The gallbladder is absent. The common | | ductmeasures up to 7 mm in diameter. A common duct stent is again apparent. Thereis | | central intrahepatic biliary ductal dilation as well. No ascites is visible. The portal | | and hepatic veins are patent and demonstrate appropriately directedflow.IMPRESSION -1. | | BORDERLINE TO MILD EXTRAHEPATIC BILIARY DUCTAL DILATION AND CENTRALINTRAHEPATIC DUCTAL | | DILATION, WITH A COMMON DUCT STENT IN POSITION.2. MILD HEPATOMEGALY AND SLIGHTLY | | INCREASED ECHOTEXTURE POTENTIALLY REFLECTINGFATTY INFILTRATION.Dictated and Signed by: | | Loki Harris MD Electronically signed: 01/22/2018 7:13 AM | |flow. | | | |IMPRESSION - | | | |1. BORDERLINE TO MILD EXTRAHEPATIC BILIARY DUCTAL DILATION AND CENTRAL | |INTRAHEPATIC DUCTAL DILATION, WITH A COMMON DUCT STENT IN POSITION. | | | |2. MILD HEPATOMEGALY AND SLIGHTLY INCREASED ECHOTEXTURE POTENTIALLY REFLECTING | |FATTY INFILTRATION. | | | |Dictated and Signed by: Loki Harris MD | | Electronically signed: 01/22/2018 7:13 AM | + + + +---------+ + + | Performing | Address | City/State/Zipcode | Phone Number | | Organization | | | | + +---------+ + + | [facility] | | | | + +---------+ + + CT Abdomen Pelvis w Contrast (01/21/2018 10:33 PM PDT) + + | Specimen | + + | | + + + + + | Narrative | Performed At | + + + | CT ABDOMEN AND PELVIS WITH CONTRAST CLINICAL INFORMATION: | [facility] | | Acute left sided abdominal pain with nausea. COMPARISON: No | | | comparisons PROCEDURE: Axial images through the abdomen and | | | pelvis after the administration of 80 ml Omnipaque 350 intravenous | | | contrast. Multiplanar reconstructions. FINDINGS: LUNG BASES: No | | | significant pulmonary abnormality. No pleural effusion or | | | pneumothorax. ABDOMEN Liver and Biliary: Gallbladder surgically | | | absent. Mild postsurgical dilatation of the biliary ducts. Common | | | bile duct stent noted. Pancreas, Spleen and Adrenals: No | | | pancreatitis or pancreatic mass. No pancreatic ductal dilatation. | | | No splenomegaly, splenic mass or splenic hemorrhage. No significant | | | adrenal abnormality. Kidneys: No hydronephrosis, calculus or solid | | | renal mass. Small left renal cyst. ABDOMEN AND PELVIS Bowel: | | | No small bowel or colonic dilation or adjacent inflammation. No | | | appendiceal dilation or inflammation. Vessels: No significant | | | abnormality in the aorta or its proximal branches. No significant | | | abnormality in the portal veins, mesenteric veins or systemic veins. | | | Lymph Nodes: No adenopathy. Peritoneum and Retroperitoneum: No | | | ascites or free air. No significant retroperitoneal abnormality. | | | PELVIS Genitourinary: Urinary bladder completely decompressed. No | | | pelvic masses. Prostatic calcifications. BODY WALL Soft | | | Tissues: No bowel or inflamed fat containing hernia, mass or | | | hemorrhage. Anterior abdominal wall mesh material from previous | | | hernia repair. There is fat within the bilateral inguinal canals. | | | Bones: No acute fracture or vertebral end plate destruction. No lytic | | | or blastic lesion. Mild superior endplate depression at L4. | | | Fixation hardware at the right pelvis. Bony fusion across the | | | right SI joint. Chronic right pelvic fracture deformities. | | | IMPRESSION- No acute intra-abdominal or intrapelvic findings. | | | Multiple postoperative changes as above including cholecystectomy | | | changes with biliary stent in place. A teleradiology | | | preliminary report was provided by MD Enzo, [facility], 01/21/2018 | | | 10:53:54 PM Dictated and Signed by: Arjun Alonzo MD | | | Electronically signed: 01/22/2018 9:01 AM | | + + + + + | Procedure Note | + + | Ethan, Rad Results In 01/22/2018 9:04 AM PDT | | CT ABDOMEN AND PELVIS WITH CONTRAST | | | | CLINICAL INFORMATION: | | Acute left sided abdominal pain with nausea. | | | | COMPARISON: | | No comparisons | | | | PROCEDURE: | | Axial images through the abdomen and pelvis after the administration of | | 80 ml Omnipaque 350 intravenous contrast. Multiplanar reconstructions. | | | | FINDINGS: | | LUNG BASES: No significant pulmonary abnormality. No pleural effusion | | or pneumothorax. | | | | ABDOMEN | | Liver and Biliary: Gallbladder surgically absent. Mild postsurgical dilatation | | of the biliary ducts. Common bile duct stent noted. | | Pancreas, Spleen and Adrenals: No pancreatitis or pancreatic mass. No | | pancreatic ductal dilatation. No | | splenomegaly, splenic mass or splenic hemorrhage. No significant | | adrenal abnormality. | | Kidneys: No hydronephrosis, calculus or solid renal mass. Small left | | renal cyst. | | | | ABDOMEN AND PELVIS | | Bowel: No small bowel or colonic dilation or adjacent inflammation. No | | appendiceal dilation or inflammation. | | Vessels: No significant abnormality in the aorta or its proximal | | branches. No significant abnormality in the portal veins, mesenteric | | veins or systemic veins. | | Lymph Nodes: No adenopathy. | | Peritoneum and Retroperitoneum: No ascites or free air. No significant | | retroperitoneal abnormality. | | | | PELVIS | | Genitourinary: Urinary bladder completely decompressed. No pelvic | | masses. Prostatic calcifications. | | | | BODY WALL | | Soft Tissues: No bowel or inflamed fat containing hernia, mass or | | hemorrhage. Anterior abdominal wall mesh material from previous hernia | | repair. There is fat within the bilateral inguinal canals. | | Bones: No acute fracture or vertebral end plate destruction. No lytic | | or blastic lesion. Mild superior endplate depression at L4. Fixation hardware | | at the right pelvis. Bony fusion across the right SI joint. Chronic right | | pelvic fracture deformities. | | | | IMPRESSION- | | No acute intra-abdominal or intrapelvic findings. | | | | Multiple postoperative changes as above including cholecystectomy changes with | | biliary stent in place. | | | | | | A teleradiology preliminary report was provided by MD Enzo, [place], | | 01/21/2018 10:53:54 PM | | | | Dictated and Signed by: Arjun Alonzo MD | | Electronically signed: 01/22/2018 9:01 AM | + + + +---------+ + + | Performing | Address | City/State/Zipcode | Phone Number | | Organization | | | | + +---------+ + + | [facility] | | | | + +---------+ + + Urinalysis with Microscopic with Culture if Indicated (01/21/2018 10:28 PM PDT) + + + + + + | Component | Value | Ref Range | Performed | Pathologist | | | | | At | Signature | + + + + + + | Color, | Ana (A) | Light Yellow, | [facility] | | | Urine | | Yellow, Straw | [facility] | | | | | | MEDICAL | | | | | | CENTER - | | | | | | LABORATORY | | + + + + + + | Clarity | Clear | Clear | [facility] | | | | | | [facility] | | | | | | MEDICAL | | | | | | CENTER - | | | | | | LABORATORY | | + + + + + + | pH, Urine | 5.0 | 5.0 - 8.0 | [facility] | | | | | | [facility] | | | | | | MEDICAL | | | | | | CENTER - | | | | | | LABORATORY | | + + + + + + | Specific | 1.031 (H) | 1.001 - 1.030 | [facility] | | | Rolfe, | | | [facility] | | | Urine | | | MEDICAL | | | | | | CENTER - | | | | | | LABORATORY | | + + + + + + | Protein, | 100 mg/dL (A) | Negative | [facility] | | | Urine | | | [facility] | | | | | | MEDICAL | | | | | | CENTER - | | | | | | LABORATORY | | + + + + + + | Blood, | Negative | Negative | [facility] | | | Urine | | | [facility] | | | | | | MEDICAL | | | | | | CENTER - | | | | | | LABORATORY | | + + + + + + | Glucose, | Negative | Negative | [facility] | | | Urine | | | [facility] | | | | | | MEDICAL | | | | | | CENTER - | | | | | | LABORATORY | | + + + + + + | Ketones, | 20 mg/dL (A) | Negative | [facility] | | | Urine | | | [facility] | | | | | | MEDICAL | | | | | | CENTER - | | | | | | LABORATORY | | + + + + + + | Bilirubin, | Moderate (A) | Negative | [facility] | | | Urine | | | [facility] | | | | | | MEDICAL | | | | | | CENTER - | | | | | | LABORATORY | | + + + + + + | Nitrite, | Negative | Negative | [facility] | | | Urine | | | [facility] | | | | | | MEDICAL | | | | | | CENTER - | | | | | | LABORATORY | | + + + + + + | Leukocyte | Negative | Negative | [facility] | | | Esterase, | | | [facility] | | | Urine | | | MEDICAL | | | | | | CENTER - | | | | | | LABORATORY | | + + + + + + | Urobilinoge | 4.0 mg/dL (A) | 0.2 mg/dL, 1.0 | [facility] | | | n, Urine | | mg/dL, Negative | [facility] | | | | | | MEDICAL | | | | | | CENTER - | | | | | | LABORATORY | | + + + + + + | White Blood | 2-5 (A) | 0 - 2 /HPF | [facility] | | | Cells, | | | [facility] | | | Urine | | | MEDICAL | | | | | | CENTER - | | | | | | LABORATORY | | + + + + + + | Red Blood | 2-5 (A) | 0 - 2 /HPF | [facility] | | | Cells, | | | [facility] | | | Urine | | | MEDICAL | | | | | | CENTER - | | | | | | LABORATORY | | + + + + + + | Squamous | 0-2 | 0 - 2 /LPF | [facility] | | | Epithelial | | | [facility] | | | Cells, | | | MEDICAL | | | Urine | | | CENTER - | | | | | | LABORATORY | | + + + + + + | Bacteria, | Negative | Negative /HPF | [facility] | | | Urine | | | [facility] | | | | | | MEDICAL | | | | | | CENTER - | | | | | | LABORATORY | | + + + + + + | Mucus, | Present (A) | Negative /LPF | [facility] | | | Urine | | | [facility] | | | | | | MEDICAL | | | | | | CENTER - | | | | | | LABORATORY | | + + + + + + | Hyaline | 0-2 | 0 - 2 /LPF | [facility] | | | Casts, | | | [facility] | | | Urine | | | MEDICAL | | | | | | CENTER - | | | | | | LABORATORY | | + + + + + + | Urine | Urine Culture Not | | [facility] | | | Comment | Indicated | | [facility] | | | [...] + + + + + | [facility] | [address] | [place] | [phone] | | [facility] | | [address] | | | - LABORATORY | | | | + + + + + Extra Gold Top Tube (01/21/2018 10:17 PM PDT) + +-------+ + + + | Component | Value | Ref Range | Performed | Pathologist | | | | | At | Signature | + +-------+ + + + | Extra Gold | Done | | [facility] | | | Top Tube | | | [facility] | | [...] | [address] | [place] | [phone] | | [facility] | | [address] | | | - LABORATORY | | | | + + + + + Extra Blue Top Tube (01/21/2018 10:17 PM PDT) + +-------+ + + + | Component | Value | Ref Range | Performed | Pathologist | | | | | At | Signature | + +-------+ + + + | Extra Blue | Done | | [facility] | | | Top Tube | | | [facility] | | [...] + + + + + | [facility] | [address] | [place], [place] | [phone] | | [facility] | | [address] | | | - LABORATORY | | | | + + + + + Extra Lavender Top Tube (01/21/2018 10:17 PM PDT) + +-------+ + + + | Component | Value | Ref Range | Performed | Pathologist | | | | | At | Signature | + +-------+ + + + | Extra | Done | | [facility] | | | Lavcassie | | | [facility] | | | Top Tube | | | MEDICAL | | | [...] + + + + + | [facility] | [address] | [place] | [phone] | | [facility] | | [address] | | | - LABORATORY | | | | + + + + + Extra Green Top Tube (01/21/2018 10:17 PM PDT) + +-------+ + + + | Component | Value | Ref Range | Performed | Pathologist | | | | | At | Signature | + +-------+ + + + | Extra Green | Done | | [facility] | | | Top Tube | | | [facility] | | [...] + | [facility] | [address] | [place], [place] | [phone] | | [facility] | | [address] | | | - LABORATORY | | | | + + + + + Type and Screen (01/21/2018 10:17 PM PDT) + + + + + + | Component | Value | Ref Range | Performed | Pathologist | | | | | At | Signature | + + + + + + | ABO | A | | [facility] | | | | | | [facility] | | | | | | MEDICAL | | | | | | CENTER - | | | | | | BLOOD BANK | | + + + + + + | Rh Type | Positive | | [facility] | | | | | | [facility] | | | | | | MEDICAL | | | | | | CENTER - | | | | | | BLOOD BANK | | + + + + + + | Antibody | Negative | | [facility] | | | Screen | | | [facility] | | | | | | [facility] | | | | | | CENTER - | | | | | | BLOOD BANK | | + + + + + + + + | Specimen | + + | Blood | + + + + + + + | Performing | Address | City/State/Zipcode | Phone Number | | Organization | | | | + + + + + | [facility] | [address] | [place] | | | [facility] | | [address] | | | - BLOOD BANK | | | | + + + + + Lipase (01/21/2018 10:17 PM PDT) + +-------+ + + + | Component | Value | Ref Range | Performed | Pathologist | | | | | At | Signature | + +-------+ + + + | Lipase | 19 | 0 - 60 U/L | [facility] | | | | | | [facility] | | | | | | MEDICAL [...] | [address] | [place] | [phone] | | [facility] | | [address] | | | - LABORATORY | | | | + + + + + Comprehensive Metabolic Panel (01/21/2018 10:17 PM PDT) + + + + + + | Component | Value | Ref Range | Performed | Pathologist | | | | | At | Signature | + + + + + + | Na | 134 (L) | 136 - 149 | [facility] | | | | | mmol/L | [facility] | | | | | | MEDICAL | | | | | | CENTER - | | | | | | LABORATORY | | + + + + + + | K | 3.6 | 3.5 - 5.1 | [facility] | | | | | mmol/L | [facility] | | | | | | MEDICAL | | | | | | CENTER - | | | | | | LABORATORY | | + + + + + + | Cl | 97 (L) | 98 - 109 mmol/L | [facility] | | | | | | [facility] | | | | | | [facility]ICAL | | | | | | CENTER - | | | | | | LABORATORY | | + + + + + + | CO2 | 24 | 24 - 31 mmol/L | [facility] | | | | | | [facility] | | | | | | [facility]ICAL | | | | | | CENTER - | | | | | | LABORATORY | | + + + + + + | Anion Gap | 13 | 3 - 16 mmol/L | [facility] | | | | | | [facility] [facility] | | | | | | [facility] - | | | | | | LABORATORY | | + + + + + + | Glucose | 114 (H) | 70 - 109 mg/dL | [facility] | | | | | | [facility] | | | | | [facility] | | | | | | CENTER - | | | | | | LABORATORY | | + + + + + + | BUN | 18 | 7 - 18 mg/dL | [facility] | | | | | | [facility] | | | | | | [facility] | | | | | | CENTER - | | | | | | LABORATORY | | + + + + + + | Creatinine | 1.23 | 0.60 - 1.30 | [facility] | | | | | mg/dL | [facility] | | | | | | [facility]ICAL | | | | | | CENTER - | | | | | | LABORATORY | | + + + + + + | eGFR if not | 60Comment: GLOMERULAR | >=60 | [facility] | | | | FILTRATION | mL/min/1.73m2 | [facility] | | | [place] | RATE,ESTIMATED | | MEDICAL | | | | mL/min/1.64n6Caob than | | CENTER - | | | | 60 Chronic kidney | | LABORATORY | | | | disease,if found over a | | | | | | 3-month period.Less than | | | | | | 15 Kidney failureFor | | | | | | | | | | | | Americans,multiply the | | | | | | calculated GFR by 1.21. | | | | | | | | | | + + + + + + | Calcium | 9.5 | 8.3 - 10.5 | [facility] | | | | | mg/dL | [facility] | | | | | | [facility] | | | | | | CENTER - | | | | | | LABORATORY | | + + + + + + | Albumin | 4.2 | 3.2 - 5.0 g/dL | [facility] | | | | | | [facility] | | | | | | [facility] | | | | | | CENTER - | | | | | | LABORATORY | | + + + + + + | Bilirubin | 4.9 (H)Comment: This is | 0.1 - 1.5 mg/dL | [facility] | | | Total | an appended report. | | [facility] | | | | These results have been | | MEDICAL | | | | appended to a previously | | CENTER - | | | | preliminary verified | | LABORATORY | | | | report. | | | | + + + + + + | Total | 8.4 (H) | 6.0 - 7.8 g/dL | [facility] | | | Protein | | | [facility] | | | | | | [facility] | | | | | | CENTER - | | | | | | LABORATORY | | + + + + + + | AST | 111 (H)Comment: This is | 10 - 42 U/L | [facility] | | | | an appended report. | | [facility] | | | | These results have been | | MEDICAL | | | | appended to a previously | | CENTER - | | | | preliminary verified | | LABORATORY | | | | report. | | | | + + + + + + | ALT | 149 (H)Comment: This is | 6 - 45 U/L | [facility] | | | | an appended report. | | [facility] | | | | These results have been | | MEDICAL | | | | appended to a previously | | CENTER - | | | | preliminary verified | | LABORATORY | | | | report. | | | | + + + + + + | Alkaline | 528 (H)Comment: This is | 40 - 110 U/L | [facility] | | | Phosphatase | an appended report. | | [facility] | | | | These results have been | | MEDICAL | | | | appended to a previously | | CENTER - | | | | preliminary verified | | LABORATORY | | | | report. | | | | + + + + + + | Globulin | 4.2 (H) | 2.1 - 3.8 g/dL | [facility] | | | | | | [facility] | [facility] | | | | | | CENTER - | | | | | | LABORATORY | | + + + + + + | Albumin/Peggy | 1.0 | 0.8 - 2.0 | [facility] | | | bulin Ratio | | | [facility] | [facility] | | | | | | CENTER - | | | | | | LABORATORY | | + + + + + + | BUN/Creatin | 14.6 | | [facility] | | | ine Ratio [...] + | [facility] | [address] | [place] | [phone] | | [facility] | | [address] | | | - LABORATORY | | | | + + + + + CBC with Differential (01/21/2018 10:17 PM PDT) + + + + + + | Component | Value | Ref Range | Performed | Pathologist | | | | | At | Signature | + + + + + + | WBC | 12.5 (H) | 4.0 - 11.0 K/uL | [facility] | | | | | [facility] | [facility] | | | | | | C[facility] - | | | | | | LABORATORY | | + + + + + + | RBC | 5.18 | 4.30 - 5.70 | [facility] | | | | | M/uL | [facility] | | [facility] | [facility] | | | | | | CENTER - | | | | | | LABORATORY | | + + + + + + | Hemoglobin | 16.5 | 13.5 - 18.0 | [facility] | | | | | g/dL | [facility] | | | | | | [facility] | | | | | | CENTER - | | | | | | LABORATORY | | + + + + + + | Hematocrit | 47.2 | 40.0 - 51.0 % | [facility] | | | | | | [facility] | [facility] | [facility] | | | | | | CENTER - | | | | | | LABORATORY | | + + + + + + | MCV | 91.2 | 83.0 - 101.0 fL | [facility] | | | | | | [facility] | [facility] | | | | | | CENTER - | | | | | | LABORATORY | | + + + + + + | MCH | 31.8 | 28.0 - 35.0 pg | [facility] | | | | | | [facility] | [facility] | [facility] | | | | | | CENTER - | | | | | | LABORATORY | | + + + + + + | MCHC | 34.8 | 32.0 - 36.0 | [facility] | | | | | g/dL | [facility] | | | [facility] | | [facility] | | | | | | CENTER - | | | | | | LABORATORY | | + + + + + + | RDW-CV | 15.5 (H) | <15.0 % | [facility] | | | | | [facility] | [facility] | [facility] | | | | | | CENTER - | | | | | | LABORATORY | | + + + + + + | Platelet | 388 | 140 - 440 K/uL | [facility] | | | Count | | | [facility] | | | | | [facility] | | | | | | CENTER - | | | | | | LABORATORY | | + + + + + + | MPV | 9.1 | fL | [facility] | | | | | | [facility] | | [facility] | [facility] | | | | | | CENTER - | | | | | | LABORATORY | | + + + + + + | % | 78.3 | 45.0 - 82.0 % | [facility] | | | Neutrophils | | | [facility] | | | | | | [facility] | | | | | | CENTER - | | | | | | LABORATORY | | + + + + + + | % | 11.6 (L) | 20.0 - 45.0 % | [facility] | | | Lymphocytes | | | [facility] | | | | | | [facility] | | | | | | CENTER - | | | | | | LABORATORY | | + + + + + + | % Monocytes | 9.1 | 4.0 - 12.0 % | [facility] | | | | | | [facility] | | | [facility] | | [facility] | | | | | | CENTER - | | | | | | LABORATORY | | + + + + + + | % | 0.5 | 0.0 - 5.0 % | [facility] | | | Eosinophils | | | [facility] | | | | | | [facility] | | | | | | CENTER - | | | | | | LABORATORY | | + + + + + + | % Basophils | 0.5 | 0.0 - 1.0 % | [facility] | | | | | | [facility] | | | | | | [facility] | | | | | | CENTER - | | | | | | LABORATORY | | + + + + + + | Absolute | 9.80 (H) | 1.80 - 8.50 | [facility] | | | Neutrophils | | K/uL | [facility] | | | | | | [facility] | | | | | | CENTER - | | | | | | LABORATORY | | + + + + + + | Absolute | 1.50 | 0.60 - 3.20 | [facility] | | | Lymphocytes | | K/uL | [facility] | | | | | | [facility] | | | | | | CENTER - | | | | | | LABORATORY | | + + + + + + | Absolute | 1.10 (H) | 0.00 - 1.00 | [facility] | | | Monocytes | | K/uL | [facility] | | | [facility] | | [facility] | | | | | | CENTER - | | | | | | LABORATORY | | + + + + + + | Absolute | 0.10 | 0.00 - 0.40 | [facility] | | | Eosinophils | | K/uL | [facility] | | | | | | MEDICAL | | | | | | CENTER - | | | | | | LABORATORY | | + + + + + + | Absolute | 0.10 | 0.00 - 0.10 | [facility] | | | Basophils | | K/uL | [facility] | | | | | | MEDICAL [...] + + + + + | [facility] | [address] | [place] | [phone] | | [facility] | | [address] | | | - LABORATORY | | | | + + + + + documented in this encounter Visit Diagnoses + + | Diagnosis | + + | Common bile duct (CBD) obstruction Obstruction of bile duct | + + documented in this encounter Administered Medications + +---------+ +--------+-------+------+ | Medication Order | MAR | Action | Dose | Rate | Site | | | Action | Date | | | | + +---------+ +--------+-------+------+ | ciprofloxacin in dextrose | New Bag | 01/24/20 | 400 mg | 200 | | | (CIPRO) IVPB 400 mg 400 mg, | | 18 5:05 | | mL/hr | | | Intravenous, Administer over 1 | | AM PDT | | | | | Hours, EVERY 12 HOURS (2 times | | | | | | | per day), First dose on Thu | | | | | | | 01/22/18 at 0215, Pharmacist may | | | | | | | adjust, Indications: Biliary | | | | | | | Tract Infection | | | | | | + +---------+ +--------+-------+------+ +---------+ +--------+-------+---+ | New Bag | 01/23/20 | 400 mg | 200 | | | | 18 5:52 | | mL/hr | | | | PM PDT | | | | +---------+ +--------+-------+---+ | New Bag | 01/23/20 | 400 mg | 200 | | | | 18 4:28 | | mL/hr | | | | AM PDT | | | | +---------+ +--------+-------+---+ +---+---+ | | | +---+---+ + +-------+ +--------+---+---+ | docusate sodium (COLACE) | Given | 01/24/20 | 100 mg | | | | capsule 100 mg 100 mg, Oral, 2 | | 18 9:25 | | | | | TIMES DAILY PRN, Constipation, | | AM PDT | | | | | Starting Thu01/22/18 at 0103, 1st | | | | | | | line agent for constipation | | | | | | | relief., | | | | | | + +-------+ +--------+---+---+ +---+---+ | | | +---+---+ + +-------+ +--------+---+---+ | gabapentin (NEURONTIN) capsule | Given | 01/24/20 | 300 mg | | | | 300 mg 300 mg, Oral, 3 TIMES | | 18 1:39 | | | | | DAILY, First dose on Thu01/22/18 | | PM PDT | | | | | at 0900 | | | | | | + +-------+ +--------+---+---+ +-------+ +--------+---+---+ | Given | 01/24/20 | 300 mg | | | | | 18 9:26 | | | | | | AM PDT | | | | +-------+ +--------+---+---+ | Given | 01/23/20 | 300 mg | | | | | 18 8:25 | | | | | | PM PDT | | | | +-------+ +--------+---+---+ +---+---+ | | | +---+---+ + +-------+ +--------+---+ + | heparin 5,000 units/mL | Given | 01/24/20 | 5,000 | | Abdomen- | | injection 5,000 Units 5,000 | | 18 9:26 | Units | | LLQ | | Units, Subcutaneous, EVERY 12 | | AM PDT | | | | | HOURS (2 times per day), First | | | | | | | dose on Thu01/22/18 at 0900 | | | | | | + +-------+ +--------+---+ + +-------+ +--------+---+ + | Given | 01/23/20 | 5,000 | | Abdomen- | | | 18 8:24 | Units | | LLQ | | | PM PDT | | | | +-------+ +--------+---+ + | Given | 01/23/20 | 5,000 | | Abdomen- | | | 18 9:13 | Units | | LLQ | | | AM PDT | | | | +-------+ +--------+---+ + +---+---+ | | | +---+---+ + +-------+ +------+---+---+ | LORazepam (ATIVAN) injection | Given | 01/24/20 | 1 mg | | | | 0.5-1 mg 0.5-1 mg, Intravenous, | | 18 12:26 | | | | | EVERY 6 HOURS PRN, Anxiety, | | AM PDT | | | | | nausea/vomiting, Starting Fri | | | | | | | 01/22/18 at 0103 | | | | | | + +-------+ +------+---+---+ +---+---+ | | | +---+---+ + +-------+ +------+---+---+ | metoclopramide (REGLAN) tablet | Given | 01/23/20 | 5 mg | | | | 5 mg 5 mg, Oral, EVERY 4 HOURS | | 18 5:55 | | | | | PRN, Nausea, Vomiting, Starting | | AM PDT | | | | | Thu01/22/18 at 0103, Use if | | | | | | | ondansetron and prochlorperazine | | | | | | | ineffective after 30 minutes or | | | | | | | not ordered, | | | | | | + +-------+ +------+---+---+ +---+---+ | | | +---+---+ + +---------+ +--------+-------+---+ | metroNIDAZOLE in saline | New Bag | 01/24/20 | 500 mg | 100 | | | (FLAGYL) IVPB 500 mg 500 mg, | | 18 6:11 | | mL/hr | | | Intravenous, Administer over 1 | | AM PDT | | | | | Hours, EVERY 8 HOURS (3 times per | | | | | | | day), First dose on Thu01/22/18 | | | | | | | at 0600, Do not refrigerate., | | | | | | | Indications: Biliary Tract | | | | | | | Infection | | | | | | + +---------+ +--------+-------+---+ +---------+ +--------+-------+---+ | New Bag | 01/23/20 | 500 mg | 100 | | | | 18 10:05 | | mL/hr | | | | PM PDT | | | | +---------+ +--------+-------+---+ | New Bag | 01/23/20 | 500 mg | 100 | | | | 18 6:41 | | mL/hr | | | | AM PDT | | | | +---------+ +--------+-------+---+ +---+---+ | | | +---+---+ + +-------+ +------+---+---+ | morphine injection 2-6 mg 2-6 | Given | 01/23/20 | 4 mg | | | | mg, Intravenous, EVERY 2 HOURS | | 18 9:34 | | | | | PRN, Pain, Starting Thu01/22/18 | | AM PDT | | | | | at 0103, Slow IV push, not faster | | | | | | | than 2 mg/minute. If ineffective | | | | | | | or not tolerated, use | | | | | | | hydromorphone IV if ordered., | | | | | | + +-------+ +------+---+---+ +-------+ +------+---+---+ | Given | 01/23/20 | 4 mg | | | | | 18 5:50 | | | | | | AM PDT | | | | +-------+ +------+---+---+ | Given | 01/23/20 | 2 mg | | | | | 18 3:49 | | | | | | AM PDT | | | | +-------+ +------+---+---+ +---+---+ | | | +---+---+ + +-------+ +------+---+---+ | ondansetron (ZOFRAN) injection | Given | 01/23/20 | 4 mg | | | | 4 mg 4 mg, Intravenous, EVERY 6 | | 18 3:49 | | | | | HOURS PRN, Nausea, Vomiting, | | AM PDT | | | | | Starting 01/22/18 at 0103, | | | | | | | First line agent, | | | | | | + +-------+ +------+---+---+ +---+---+ | | | +---+---+ + +-------+ +-------+---+---+ | oxyCODONE (ROXICODONE) tablet | Given | 01/24/20 | 15 mg | | | | 15 mg 15 mg, Oral, EVERY 4 HOURS | | 18 9:24 | | | | | PRN, Moderate Pain, hold for | | AM PDT | | | | | sedation, rr<10, Starting Fri | | | | | | | 01/22/18 at 0103 | | | | | | + +-------+ +-------+---+---+ +-------+ +------+---+---+ | Given | 01/23/20 | 5 mg | | | | | 18 6:18 | | | | | | PM PDT | | | | +-------+ +------+---+---+ +---+---+ | | | +---+---+ + +-------+ +-------+---+---+ | pantoprazole (PROTONIX) | Given | 01/24/20 | 40 mg | | | | injection 40 mg 40 mg, | | 18 9:26 | | | | | Intravenous, 2 TIMES DAILY, First | | AM PDT | | | | | dose on Thu01/22/18 at 0900, If | | | | | | | reconstituting, mix each 40 mg | | | | | | | vial with 10 mL NS to make 4 | | | | | | | mg/mL., | | | | | | + +-------+ +-------+---+---+ +-------+ +-------+---+---+ | Given | 01/23/20 | 40 mg | | | | | 18 8:24 | | | | | | PM PDT | | | | +-------+ +-------+---+---+ | Given | 01/23/20 | 40 mg | | | | | 18 9:16 | | | | | | AM PDT | | | | +-------+ +-------+---+---+ +---+---+ | | | +---+---+ + +---------+ +--------+-------+---+ | sodium chloride 0.9% (NS) | New Bag | 01/24/20 | 1,000 | 125 | | | infusion at 125 mL/hr, | | 18 4:09 | mLs | mL/hr | | | Intravenous, CONTINUOUS, Starting | | AM PDT | | | | | 01/22/18 at 0105 | | | | | | + +---------+ +--------+-------+---+ + + +--------+-------+---+ | New Bag | 01/23/20 | 1,000 | 125 | | | | 18 6:00 | mLs | mL/hr | | | | PM PDT | | | | + + +--------+-------+---+ | Continue bag from transfer | 01/23/20 | | 125 | | | | 18 1:24 | | mL/hr | | | | AM PDT | | | | + + +--------+-------+---+ +---+---+ | | | +---+---+ + +-------+ +--------+---+---+ | tamsulosin (FLOMAX) capsule 0.8 | Given | 01/24/20 | 0.8 mg | | | | mg 0.8 mg, Oral, DAILY, First | | 18 9:26 | | | | | dose on Thu01/22/18 at 0900, May | | AM PDT | | | | | open capsule and sprinkle over | | | | | | | acidic soft food (applesauce, | | | | | | | yogurt) or in a small quantity of | | | | | | | acidic fruit juice (orange, | | | | | | | grape). Do not crush, chew or | | | | | | | dissolve granules., | | | | | | + +-------+ +--------+---+---+ +-------+ +--------+---+---+ | Given | 1820 | 0.8 mg | | | | | 18 9:14 | | | | | | AM PDT | | | | +-------+ +--------+---+---+ +---+---+ | | | +---+---+ documented in this encounter"
--- OUTSIDE RECORDS SUMMARY | ~2020-01-31 | XMS | Encounter Summary ---
Demographics + + + | Address | [address] | | | [place] [address] | + + + | Home Phone | | + + + | Preferred Language | Unknown | + + + | Marital Status | | + + + | Adventism Affiliation | 1013 | + + + | Race | Unknown | + + + | Ethnic Group | Unknown | + + + Author + + + | Author | [facility] | | | and [place] | + + + | Organization | [facility] | | | and [...] [place] | | | | | [address] | | + + + + + Care Team Providers + +------+ + | Care Construction Job Cost Estimator Name | Role | Phone | + +------+ + | Allison Fairchild NP | PCP | | + +------+ + Reason for Visit + + + | Reason | Comments | + + + | Follow-up(Procedure) | | + + + Encounter Details +--------+ + + + + | Date | Type | Department | Care Team | Description | +--------+ + + + + | 08/16/ | Telephone | [facility] | Marshall Ragland, | Follow-up(Procedure) | | 2019 | | INTERVENTIONAL | RN | | | | | RADIOLOGY [address] | | | | | | [address] | | | | | | [address] [facility] [place] [place] | | | | | | [address] | | | | | | [phone] | | | +--------+ + + + [...]
--- OUTSIDE RECORDS SUMMARY | ~2020-01-31 | XMS | Encounter Summary ---
Demographics + + + | Address | [address] | | | [place] [address] | + + + | Home Phone | | + + + | Preferred Language | Unknown | + + + | Marital Status | | + + + | Alevism Affiliation | 1013 | + + + | Race | Unknown | + + + | Ethnic Group | Unknown | + + + Author + + + | Author | [facility] | | | and [place] | + + + | Organization | [facility] | | | and [...] [place] | | | | | [address] | | + + + + + Care Team Providers + +------+ + | Care Tower Loader Operator Name | Role | Phone | [...] [place] | | | | | [address] | [address] | | | | | [phone] | [phone] | | | | | | | [...] [place] | | | | | | [address] | | | | + + + [...]
--- OUTSIDE RECORDS SUMMARY | ~2020-01-31 | XMS | Encounter Summary ---
Demographics + + + | Address | [address] | | | [place] [address] | + + + | Home Phone | | + + + | Preferred Language | Unknown | + + + | Marital Status | | + + + | Temple Affiliation | 1013 | + + + | Race | Unknown | + + + | Ethnic Group | Unknown | + + + Author + + + | Author | [facility] | | | and [place] | + + + | Organization | [facility] | | | and [place] | [...] [place] | | | | | [address] | | + + + + + Care Team Providers + +------+ + | Care Benefits Director Name | Role | Phone | [...] | | | | | | | NE | | | | | | | ESOPHAGOGAST | | | | | | | RODUODENOSCO | | | | | | | PY TRANSORAL | | | | | | | DIAGNOSTIC | | | | | | | NE EGD | | | | | | | TRANSORAL | | | | | | | BIOPSY | | | | | | | SINGLE/MULTI | | | | | | | PLE NE | | | | | | | [...] + + | 11/18/ | Hospital | [facility] | Adrian Aponte MD | Nausea; Epigastric | | 2018 | Encounter | [facility] | [address] | pain; Early satiety; | | | | [address] | [place] | Abdominal pain, | | | | [place], [place] | [address] | generalized | | | | [address] | [phone] | | | | | [phone] | | | +--------+ + + + [...] 11/18/2017 | [facility] | | 8:29 AMMRN: [id number] #: [id number] of : | | | 1960Admit Type: AmbulatoryAge: 56Room: [facility] 01Gender: MaleNote | | | Status: FinalizedAttending MD: Adrian Aponte [facility] | | Upper GI endoscopyIndications: Epigastric abdominal | | | pain, Nausea with vomitingProviders: Adrian Aponte MD, | | | Caroline Beltran RN, Edyta Kilpatrick | | | Cabrera, Fixed Income Analyst, CARMELLA MELO, | | | DO (Anesthesia [...] | | | the anesthesiologist and the vibration technician in the pre-procedure | | | [...] | | 8:39:59 AMScope Out: 8:48:59 AM [facility] | | | [place], [address] [place] [address] | | | - Await pathology results. [...] |Scope Out: 8:48:59 AM | | | [facility], [address] [place] [address] | | | [address] | | + + -+ + +---------+ [...] for increased | | | epithelial eosinophils. JVR:[facility]:C2NR GROSS DESCRIPTION: | | | Received [...] | | | preparation were performed by [facility], [address] | | | [address], [place] [address] (Hat Mender: Alex Hathaway M.D. | | | CLIA#: [id number]). Professional interpretation was performed by | | | [facility], [facility], [address] | [address] [place] [address] (Hat Mender: Alex Hathaway, | | | [place]; CLIA#: [id number]). Diagnostician: Alex Hathaway MD | | | [...]
--- OUTSIDE RECORDS SUMMARY | ~2020-01-31 | XMS | Encounter Summary ---
Demographics + + + | Address | [address] | | | [place] [address] | + + + | Home Phone [...] + + | Author | [facility] | | | and [place] | + + + | Organization | [facility] | | | and [...] [place] | | | | | [address] | | + + + + + Care Team Providers + +------+ + | Care Integrity Engineer Name | Role | Phone | + +------+ + | Allison Fairchild NP | PCP | | + +------+ + Reason for Visit + + + | Reason | Comments | + + + | Referral | | + + + Encounter Details +--------+ + + + + | Date | Type | Department | Care Team | Description | +--------+ + + + + | 08/11/ | Telephone | [facility] | Jamie Bentley MD | Referral | | 2019 | | GENERAL SURGERY [address] | [address] | | | | | [address] | [address] [place], [place] | | | | | [place], [place] | [address] | | | | | [address] | | | | | | [phone] | | | +--------+ + + + [...]
--- OUTSIDE RECORDS SUMMARY | ~2020-01-31 | XMS | Encounter Summary ---
Demographics + + + | Address | [address] | | | [place] [address] | + + + | Home Phone | | + + + | Preferred Language | Unknown | + + + | Marital Status | | + + + | Spiritism Affiliation | 1013 | + + + | Race | Unknown | + + + | Ethnic Group | Unknown | + + + Author + + + | Author | [facility] | | | and [place] | + + + | Organization | [facility] | | | and [place] [...] [place] | | | | | [address] | | + + + + + Care Team Providers + +------+ + | Care Sugarcane Planter Name | Role | Phone | + [...] 2020 | | [address] | Drawstring Knotter | fever); Erythema; | | | | [place], [place] | | 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 | [address] | | | LABORATORY | | | | + + + + + | REFERENCE LAB | [address] | [place], [place] | | | [facility] | Bl[address] | [address] | | | LABORATORY | | | [...] | | | | | | MDRD IDWY traceable | | | | | | equation.Testing | | | | | | performed at [facility];[address] | | | | | | [facility] | | | | | | [facility];[place] [address] | | | | | | | | | | + + + + + + + + | Specimen | + + | Blood | + + + + + + + | Performing | Address | City/State/Zipcode | Phone Number | | Organization | | | | + + + + + | RE[facility] | [address] [place] [address] | [place], [place] | [phone] | | [facility] | [address] | [address] | | | LABORATORY | | | | + + + + + | [facility] | [address] [place] [address] | [place], [place] | | | [facility] | [address] | [address] | | | LABORATORY | | | [...] - 1.030 | REFERENCE | | | [place], | | | LAB | | | [...] + + | REFERENCE LAB | [address] [facility] | [place] | [phone] | | [facility] | [address] | [address] | | | LABORATORY | | | | + + + + + | REFERENCE LAB | [address] [facility] | [place] | | | [facility] | [address] | [address] | | | LABORATORY | | | [...] REFERENCE | | | | performed at [facility];[address] | | LAB | | | | [place] | | [facility] | | | | [address];[place] [address] | | LABORATORY | | + + + + + + + + | Specimen | + + | Blood | + + + + + + + | Performing | Address | City/State/Zipcode | Phone Number | | Organization | | | | + + + + + | RE[facility] | [address] [place] [address] | [place], [place] | [phone] | | [facility] | [address] | [address] | | | LABORATORY | | | | + + + + + | [facility] | [address] [place] [address] | [place], [place] | | | [facility] | [address] | [address] | | | LABORATORY | | | [...]
--- OUTSIDE RECORDS SUMMARY | ~2020-01-31 | XMS | Encounter Summary ---
Demographics + + + | Address | [address] | | | [place] [address] | + + + | Home Phone [...] | [facility] | | | and [place] | + + + | Organization | [facility] | | | and [...] [place] | | | | | [address] | | + + + + + Care Team Providers + +------+ + | Care Doors Prefitter Name | Role | Phone | + [...] | | | ALLEGRA ARNETT | [place] | | | | | [address] | [address] | | | | | [phone] | [phone] | | | | | | | [...] + | C-REACTIVE PROTEIN | Routin | 10/05/2013 | | Results for this | | | e | 4:21 AM | | procedure are in the | | | | PST | | results section. | + +--------+ + + + documented in this encounter Results C-Reactive Protein (10/05/2013 4:21 AM PST) + + + + + + | Component | Value | Ref Range | Performed | Pathologist | | | | | At | Signature | + + + + + + | CRP | 2.8 (H)Comment: Testing | mg/dL | EXTERNAL | | | | performed at [facility] | | LAB | | | | Health;[address] | | | | | | [place] | | | | | | [address] | | | | + + + + + + + + | Specimen | + + | | + + + + + | Narrative | Performed At | + + + | Attending/Primary Provider: JALEESA MD, Felicia MCMAHAN, , DER[place], | EXTERNAL LAB | + + + + +---------+ + + | Performing | Address | City/State/Zipcode | Phone Number | | Organization | | | | + +---------+ + + | EXTERNAL LAB | | | | + +---------+ + + documented in this encounter Visit Diagnoses Not on filedocumented in this encounter"
--- OUTSIDE RECORDS SUMMARY | ~2020-01-31 | XMS | Encounter Summary ---
Demographics + + + | Address | [address] | | | [place] [address] | + + + | Home Phone [...] | Author | [facility] | | | and [place] | + + + | Organization | [facility] [...] [place] | | | | | [address] | | + + + + + Care Team Providers + +------+ + | Care Electric Engine Mechanic Name | Role | Phone | + [...] + + | 07/07/ | Telephone | [facility] | LillyRhianna, | Patient Concerns | | 2019 | | [place] [place] | Family Helper | (discharge | | | | MANAG[address] | | instructions ) | | | | [facility] | | | | | | [facility] [place] | | | | | | [address] | | | | | | [phone] | | | +--------+ + + + [...]
--- OUTSIDE RECORDS SUMMARY | ~2020-01-31 | XMS | Encounter Summary ---
Demographics + + + | Address | [address] | | | [place] [address] | + + + | Home Phone | | + + + | Preferred Language | Unknown | + + + | Marital Status | | + + + | Sikhism Affiliation | Unknown | + + + [...] Team Providers + +------+ + | Care Line Service Attendant Name | Role | Phone | + [...]
--- OUTSIDE RECORDS SUMMARY | ~2020-01-31 | XMS | Encounter Summary ---
Demographics + + + | Address | [address] | | | [place] [address] | + + + | Home Phone | | + + + | Preferred Language | Unknown | + + + | Marital Status | | + + + | Anabaptist Affiliation | 1013 | + + + | Race | Unknown | + + + | Ethnic Group | Unknown | + + + Author + + + | Author | [facility] | | | and [place] | + + + | Organization | [facility] | | | and [place] [...] [place] | | | | | [address] | | + + + + + Care Team Providers + +------+ + | Care Manager Harbor Name | Role | Phone | + +------+ + | Allison Fairchild NP | PCP | | + +------+ + Encounter Details +--------+ + + + + | Date | Type | Department | Care Team | Description | +--------+ + + + + | 09/07/ | Anesthesia | [facility] | [place], | | | 2019 | [facility] | [address] | | | | | [address] | [place] [address] | | | | | [address] | [phone] | | | | | [place], [place] | | | | | | [address] | | | | | | [phone] | | | +--------+ + + + [...]
--- OUTSIDE RECORDS SUMMARY | ~2020-01-31 | XMS | Encounter Summary ---
Demographics + + + | Address | [address] | | | [place] [address] | + + + | Home Phone [...] | Author | [facility] | | | and [place] | + + + | Organization | [facility] | [...] [place] | | | | | [address] | | + + + + + Care Team Providers + +------+ + | Care Flour Mixer Name | Role | Phone | + [...] [place] | | | | | | [address] | | | | | | [phone] | | | +--------+ + + + [...]
--- OUTSIDE RECORDS SUMMARY | ~2020-01-31 | XMS | Encounter Summary ---
Demographics + + + | Address | [address] | | | [place] [address] | + + + | Home Phone | | + + + | Preferred Language | Unknown | + + + | Marital Status | | + + + | Scientology Affiliation | 1013 | + + + | Race | Unknown | + + + | Ethnic Group | Unknown | + + + Author + + + | Author | [facility] | | | and [place] | + + + | Organization | [facility] | [...] [place] | | | | | [address] | | + + + + + Care Team Providers + +------+ + | Care Innovation Manager Name | Role | Phone | + +------+ + PCP | Unavailable | + +------+ + Encounter Details +--------+ + + + + | Date | Type | Department | Care Team | Description | +--------+ + + + + | 03/24/ | Emergency | [facility] | Sarabjit Rausch MD | Abdominal pain | | 2013 | | MEDICAL CENTER | [address] | | | | | EMERGENCY CENTER | [place] [address] | | | | | [address] | [phone] | | | | | [place], [place] | | | | | | [address] | | | | | | [phone] | | | +--------+ + + + [...] CT ABDOMEN PELVIS W | Routin | 03/24/2014 | | Results for this | | CONTRAST | e | 4:32 PM | | procedure are in the | | | | PDT | | results section. | + +--------+ + + + | EXTERNAL LAB: CBC | Routin | 03/24/2014 | | Results for this | | | e | 3:40 PM | | procedure are in the | | | | PDT | | results section. | + +--------+ + + + | LIPASE | Routin | 03/24/2014 | | Results for this | | | e | 3:40 PM | | procedure are in the | | | | PDT | | results section. | + +--------+ + + + | COMPREHENSIVE | Routin | 03/24/2014 | | Results for this | | METABOLIC PANEL | e | 3:40 PM | | procedure are in the | | | | PDT | | results section. | + +--------+ + + + documented in this encounter Results CT Abdomen Pelvis w Contrast (03/24/2014 4:32 PM PDT) + + | Specimen | + + | | + + + + + | Impressions | Performed At | + + + | 1. Healed right pelvic fracture. 2. Thickening of the | | | duodenal wall which could be consistent duodenitus. The stent is | | | properly positioned in the lumen extending up into the liver. No | | | ductal dilation seen in the liver. Mild fatty infiltration of the | | | liver observed. 3. Prior cholecystectomy. Other abdominal | | | viscera are unremarkable. 4. Ventral hernias above the | | | umbilicus. No evidence of strangulation or incarceration 5. | | | Bilateral fat only inguinal hernias. | | + + + + + + | Narrative | Performed At | + + + | APARNA HAN CT ABDOMEN PELVIS W CONTRAST 03/24/2014 4:32 PM | | | HISTORY: 53 years. Male. Abdominal pain TECHNIQUE: 5-mm | | | axial images were acquired through the abdomen and pelvis. Oral | | | Contrast: Readi-Cat IV contrast: 100 mL IsoVue 300 COMPARISON: | | | 02/03/14 FINDINGS: Critical Care Unit Manager view shows numerous orthopedic fixation | | | screws right ilium2 The visualized portions of the heart and lung | | | bases are normal. The distal esophagus is normal. Mild fatty | | | liver infiltration. No intrahepatic ductal dilatation present. There | | | is a ductal stent present. No mass observed The spleen is normal | | | in size and attenuation. No solid or cystic masses are noted. | | | The pancreas is normal in size and attenuation. No solid or cystic | | | masses are noted. The gallbladder is surgically absent. The | | | adrenal glands are normal in size bilaterally. There is no evidence | | | of an adrenal adenoma or hyperplasia. The kidneys are symmetric in | | | size bilaterally and show no evidence of a solid or cystic mass. No | | | hydronephrosis is noted. No stones are seen in the collecting | | | systems. The aorta and vena cava are normal in caliber throughout | | | their visualized course including the iliac and femoral vessels. | | | No free fluid or free air is present. No adenopathy is seen in the | | | abdomen or pelvis. The stomach, jejunum, ileum, ileocecal valve | | | are normal. No air-fluid levels are seen to suggest obstruction. | | | The appendix is identified and is normal. The ascending colon, | | | transverse colon, descending colon, sigmoid colon and rectum | | | demonstrate normal wall thickness. No diverticulosis is noted. | | | Some thickening of the duodenum is identified such as on image 38/3. | | | It is concentric and about 7 mm in diameter. Duodenum this is a | | | consideration. Same image shows a ventral hernia containing a portion | | | of the transverse colon. This is a wide ostium and there is no | | | evidence of incarceration or strangulation. Below that is a | | | broad-based fat only umbilical hernia or diastases of the rectus | | | sheath, image 51/3. This is just above the umbilicus. Bilateral | | | fat only inguinal hernias are observed In the pelvis the bladder is | | | fluid filled and has a normal contour and wall thickness. No | | | intraluminal filling defects are seen. No diverticulum is noted. | | | The prostate is normal in size. The seminal vesicles are normal. | | | The visualized portion of the penis is normal. The muscles are | | | symmetric. No focal atrophy or soft tissue mass is seen. No | | | hernias are identified. Extensive prior pelvic fractures on the | | | right side the limited medially by the sacroiliac joints. Sacrum is | | | intact. The left-sided pelvis is intact. Healed fractures of the | | | ischium and pubic bone right side. Vasectomy clips in the stomach,. | | | | | + + + + + | Procedure Note | + + | Ethan, Rad Conversion - 04/22/2019 12:50 PM PDT APARNA D KALALCT ABDOMEN PELVIS W | | CONTRAST03/24/2014 4:32 PM HISTORY:53 years. Male. Abdominal pain TECHNIQUE:5-mm axial | | images were acquired through the abdomen and pelvis.Oral Contrast: Readi-CatIV contrast: | | 100 mL IsoVue 300 COMPARISON:02/03/14 FINDINGS: Critical Care Unit Manager view shows numerous orthopedic | | fixation screws right [id number] visualized portions of the heart and lung bases are | | normal. The distal esophagus is normal. Mild fatty liver infiltration. No intrahepatic | | ductal dilatation present. There is a ductal stent present. No mass observed The spleen | | is normal in size and attenuation. No solid or cystic masses are noted. The pancreas is | | normal in size and attenuation. No solid or cystic masses are noted. The gallbladder | | is surgically absent. The adrenal glands are normal in size bilaterally. There is no | | evidence of an adrenal adenoma or hyperplasia. The kidneys are symmetric in size | | bilaterally and show no evidence of a solid or cystic mass. No hydronephrosis is noted. | | No stones are seen in the collecting systems. The aorta and vena cava are normal in | | caliber throughout their visualized course including the iliac and femoral vessels. No | | free fluid or free air is present. No adenopathy is seen in the abdomen or pelvis. The | | stomach, jejunum, ileum, ileocecal valve are normal. No air-fluid levels are seen to | | suggest obstruction. The appendix is identified and is normal. The ascending colon, | | transverse colon, descending colon, sigmoid colon and rectum demonstrate normal wall | | thickness. No diverticulosis is noted.Some thickening of the duodenum is identified | | such as on image 38/3. It is concentric and about 7 mm in diameter. Duodenum this is a | | consideration. Same image shows a ventral hernia containing a portion of the transverse | | colon. This is a wide ostium and there is no evidence of incarceration or strangulation. | | Below that is a broad-based fat only umbilical hernia or diastases of the rectus | | sheath, image 51/3. This is just above the umbilicus. Bilateral fat only inguinal | | hernias are observedIn the pelvis the bladder is fluid filled and has a normal contour | | and wall thickness. No intraluminal filling defects are seen. No diverticulum is | | noted. The prostate is normal in size. The seminal vesicles are normal. The visualized | | portion of the penis is normal. The muscles are symmetric. No focal atrophy or soft | | tissue mass is seen. No hernias are identified. Extensive prior pelvic fractures on the | | right side the limited medially by the sacroiliac joints. Sacrum is intact. The | | left-sided pelvis is intact. Healed fractures of the ischium and pubic bone right side. | | Vasectomy clips in the stomach,. IMPRESSION: 1. Healed right pelvic fracture. 2. | | Thickening of the duodenal wall which could be consistent duodenitus. The stent is | | properly positioned in the lumen extending up into the liver. No ductal dilation seen in | | the liver. Mild fatty infiltration of the liver observed. 3. Prior cholecystectomy. | | Other abdominal viscera are unremarkable. 4. Ventral hernias above the umbilicus. No | | evidence of strangulation or incarceration 5. Bilateral fat only inguinal hernias. | | | |The stomach, jejunum, ileum, ileocecal valve are normal. No air-fluid levels are seen to s uggest obstruction. The appendix is identified and is normal. The ascending colon, transve rse colon, descending colon, sigmoid colon and rectum demonstrate | |normal wall thickness. No diverticulosis is noted. | |Some thickening of the duodenum is identified such as on image 38/3. It is concentric and a bout 7 mm in diameter. Duodenum this is a consideration. Same image shows a ventral hernia c ontaining a portion of the transverse | |colon. This is a wide ostium and | |there is no evidence of incarceration or strangulation. Below that is a broad-based fat onl y umbilical hernia or diastases of the rectus sheath, image 51/3. This is just above the umb ilicus. | | | |Bilateral fat only inguinal hernias are observed | |In the pelvis the bladder is fluid filled and has a normal contour and wall thickness. No intraluminal filling defects are seen. No diverticulum is noted. | | | |The prostate is normal in size. The seminal vesicles are normal. The visualized portion o f the penis is normal. | | | |The muscles are symmetric. No focal atrophy or soft tissue mass is seen. No hernias are i dentified. | | | |Extensive prior pelvic fractures on the right side the limited medially by the sacroiliac j oints. Sacrum is intact. The left-sided pelvis is intact. Healed fractures of the ischium an d pubic bone right side. Vasectomy clips in the stomach,. | | | | | | | |IMPRESSION: | |1. Healed right pelvic fracture. | | | |2. Thickening of the duodenal wall which could be consistent duodenitus. The stent is prop erly positioned in the lumen extending up into the liver. No ductal dilation seen in the robinson er. Mild fatty infiltration of the liver observed. | | | |3. Prior cholecystectomy. Other abdominal viscera are unremarkable. | | | |4. Ventral hernias above the umbilicus. No evidence of strangulation or incarceration | | | |5. Bilateral fat only inguinal hernias. | | | | | + + External Lab: CBC (03/24/2014 3:40 PM PDT) + + + + + + | Component | Value | Ref Range | Performed | Pathologist | | | | | At | Signature | + + + + + + | WBC | 12.6 (H)Comment: Testing | 3.8 - 11.0 K/uL | EXTERNAL | | | | performed at [facility];[address] | | LAB | | | | [address];[place] | | | | | | [address] | | | | + + + + + + | Red Blood | 4.49Comment: Testing | 4.20 - 5.70 | EXTERNAL | | | Cells | performed at [facility];888 | M/uL | LAB | | | Counted | [address];[place] | | | | | | [address] | | | | + + + + + + | Hemoglobin | 14.3Comment: Testing | 13.2 - 17.0 | EXTERNAL | | | | performed at [facility];888 | g/dL | LAB | | | | [address];[place] | | | | | | [address] | | | | + + + + + + | Hematocrit, | 41.7Comment: Testing | 39.0 - 50.0 % | EXTERNAL | | | POC | performed at [facility];[address] | | LAB | | | | [address];[place] | | | | | | [address] | | | | + + + + + + | MCV | 92.9Comment: Testing | 80.0 - 100.0 fl | EXTERNAL | | | | performed at [facility];[address] | | LAB | | | | [address];[place] | | | | | | [address] | | | | + + + + + + | MCH | 31.8Comment: Testing | 27.0 - 34.0 pg | EXTERNAL | | | | performed at [facility];[address] | | LAB | | | | [address];[place] | | | | | | [address] | | | | + + + + + + | MCHC | 34.2Comment: Testing | 32.0 - 35.5 | EXTERNAL | | | | performed at [facility];888 | g/dL | LAB | | | | [address];[place] | | | | | | [address] | | | | + + + + + + | RDW-CV | 48.6Comment: Testing | 37 - 53 fl | EXTERNAL | | | | performed at [facility];[address] | | LAB | | | | [address];[place] | | | | | | [address] | | | | + + + + + + | Platelet | 461 (H)Comment: Testing | 150 - 400 K/uL | EXTERNAL | | | Count | performed at [facility];[address] | | LAB | | | Plasma | [address];[place] | | | | | | [address] | | | | + + + + + + | MPV | 7.7Comment: Testing | fl | EXTERNAL | | | | performed at [facility];[address] | | LAB | | | | [address];[place] | | | | | | [address] | | | | + + + + + + | Differentia | AUTOMATEDComment: | | EXTERNAL | | | l Type | Testing performed at | | LAB | | | | [facility];[address];[place] [address] | | | | + + + + + + | % Segmented | 66.3Comment: Testing | % | EXTERNAL | | | | performed at [facility];[address] | | LAB | | | Neutrophils | [address];[place] | | | | | | [address] | | | | + + + + + + | % | 26.9Comment: Testing | % | EXTERNAL | | | Lymphocytes | performed at [facility];[address] | | LAB | | | | [address];[place] | | | | | | [address] | | | | + + + + + + | % Monocytes | 5.1Comment: Testing | % | EXTERNAL | | | | performed at [facility];[address] | | LAB | | | | [address];[place] | | | | | | [address] | | | | + + + + + + | % | 0.7Comment: Testing | % | EXTERNAL | | | Eosinophils | performed at [facility];[address] | | LAB | | | | [address];[place] | | | | | | [address] | | | | + + + + + + | % Basophils | 1.0Comment: Testing | % | EXTERNAL | | | | performed at [facility];[address] | | LAB | | | | [address];[place] | | | | | | [address] | | | | + + + + + + | Absolute | 8.4 (H)Comment: Testing | 1.9 - 7.4 K/uL | EXTERNAL | | | Segmented | performed at [facility];[address] | | LAB | | | Neutrophils | [address];[place] | | | | | | [address] | | | | + + + + + + | Absolute | 3.4Comment: Testing | 1.0 - 3.9 K/uL | EXTERNAL | | | Lymphocytes | performed at [facility];[address] | | LAB | | | | [address];[place] | | | | | | [address] | | | | + + + + + + | Absolute | 0.6Comment: Testing | 0 - 0.8 K/uL | EXTERNAL | | | Monocytes | performed at [facility];[address] | | LAB | | | | [address];[place] | | | | | | [address] | | | | + + + + + + | Absolute | 0.1Comment: Testing | 0 - 0.5 K/uL | EXTERNAL | | | Eosinophils | performed at [facility];[address] | | LAB | | | | [address];[place] | | | | | | [address] | | | | + + + + + + | Absolute | 0.1Comment: Testing | 0 - 0.1 K/uL | EXTERNAL | | | Basophils | performed at [facility];[address] | | LAB | | | | [address];[place] | | | | | | [address] | | | | + + + + + + + + | Specimen | + + | Blood specimen | | (specimen) | + + + +---------+ + + | Performing | Address | City/State/Zipcode | Phone Number | | Organization | | | | + +---------+ + + | EXTERNAL LAB | | | | + +---------+ + + Lipase (03/24/2014 3:40 PM PDT) + + + + + + | Component | Value | Ref Range | Performed | Pathologist | | | | | At | Signature | + + + + + + | Lipase | 139Comment: Testing | 73 - 393 U/L | EXTERNAL | | | | performed at [facility];[address] | | LAB | | | | [address];[place], [place] | | | | | | [address] | | | | + + [...] + +---------+ + + Comprehensive Metabolic Panel (03/24/2014 3:40 PM PDT) + + + + + + | Component | Value | Ref Range | Performed | Pathologist | | | | | At | Signature | + + + + + + | Na | 141Comment: Testing | 135 - 143 | EXTERNAL | | | | performed at [facility];888 | mmol/L | LAB | | | | [address];[place] | | | | | | [address] | | | | + + + + + + | K | 3.9Comment: Testing | 3.5 - 4.9 | EXTERNAL | | | | performed at [facility];888 | mmol/L | LAB | | | | [address];[place] | | | | | | [address] | | | | + + + + + + | Cl | 107Comment: Testing | 99 - 109 mmol/L | EXTERNAL | | | | performed at [facility];[address] | | LAB | | | | [address];[place] | | | | | | [address] | | | | + + + + + + | CO2 | 25Comment: Testing | 23 - 32 mmol/L | EXTERNAL | | | | performed at [facility];[address] | | LAB | | | | [address];[place] | | | | | | [address] | | | | + + + + + + | Anion Gap | 12Comment: Testing | 5 - 20 mmol/L | EXTERNAL | | | | performed at [facility];[address] | | LAB | | | | [address];[place] | | | | | | [address] | | | | + + + + + + | Glucose, | 111 (H)Comment: Testing | 65 - 99 mg/dL | EXTERNAL | | | Fasting | performed at [facility];[address] | | LAB | | | | [address];[place] | | | | | | [address] | | | | + + + + + + | BUN | 19Comment: Testing | 8 - 25 mg/dL | EXTERNAL | | | | performed at [facility];[address] | | LAB | | | | [address];[place] | | | | | | [address] | | | | + + + + + + | Creatinine | 0.93Comment: Testing | 0.70 - 1.30 | EXTERNAL | | | | performed at [facility];888 | mg/dL | LAB | | | | [address];[place] | | | | | | [address] | | | | + + + + + + | BUN/Creatin | 20Comment: Testing | | EXTERNAL | | | ine Ratio | performed at [facility];[address] | | LAB | | | | [address];[place] | | | | | | [address] | | | | + + + + + + | Calcium | 8.8Comment: Testing | 8.5 - 10.2 | EXTERNAL | | | | performed at [facility];888 | mg/dL | LAB | | | | [address];[place] | | | | | | [address] | | | | + + + + + + | Protein, | 7.2Comment: Testing | 6.3 - 8.2 g/dL | EXTERNAL | | | Total | performed at [facility];[address] | | LAB | | | | [address];[place] | | | | | | [address] | | | | + + + + + + | Albumin | 3.3 (L)Comment: Testing | 3.6 - 5.0 g/dL | EXTERNAL | | | | performed at [facility];[address] | | LAB | | | | [address];[place] | | | | | | [address] | | | | + + + + + + | Globulin | 3.9Comment: Testing | 1.3 - 4.9 g/dL | EXTERNAL | | | | performed at [facility];[address] | | LAB | | | | [address];[place] | | | | | | [address] | | | | + + + + + + | A/G Ratio | 0.8 (L)Comment: Testing | 1.0 - 2.4 | EXTERNAL | | | | performed at [facility];[address] | | LAB | | | | [address];[place] | | | | | | [address] | | | | + + + + + + | Bilirubin | 0.4Comment: Testing | 0.1 - 1.5 mg/dL | EXTERNAL | | | Total | performed at [facility];[address] | | LAB | | | | [address];[place] | | | | | | [address] | | | | + + + + + + | ALP, | 117 (H)Comment: Testing | 35 - 115 U/L | EXTERNAL | | | External | performed at [facility];[address] | | LAB | | | | [address];[place] | | | | | | [address] | | | | + + + + + + | AST | 66 (H)Comment: Testing | 10 - 45 U/L | EXTERNAL | | | | performed at [facility];[address] | | LAB | | | | [address];[place] | | | | | | [address] | | | | + + + + + + | ALT | 63Comment: Testing | 10 - 65 U/L | EXTERNAL | | | | performed at [facility];[address] | | LAB | | | | [address];[place] | | | | | | [address] | | | | + + + [...] | at [facility];[address] [place] [address] | | | | | | [facility];[place] [address] | | | | + + + [...] | Diagnosis | + + | Abdominal pain Abdominal pain, unspecified site | + + documented in this encounter"
--- OUTSIDE RECORDS SUMMARY | ~2020-01-31 | XMS | Encounter Summary ---
Demographics + + + | Address | [address] | | | [place] [address] | + + + | Home Phone | | + + + | Preferred Language | Unknown | + + + | Marital Status | | + + + | Orthodox Affiliation | 1013 | + + + | Race | Unknown | + + + | Ethnic Group | Unknown | + + + Author + + + | Author | [facility] | | | and [place] | + + + | Organization | [facility] | | | and [...] [place] | | | | | [address] | | + + + + + Care Team Providers + +------+ + | Care Solar Designer Name | Role | Phone | [...] | | | [place] | [place] | | | | | [address] | [address] | | | | | [phone] | [phone] | | | | | | | [...] EXTERNAL | | | | performed at [facility] | | LAB | | | | Health;[address] | | | | | | [place] | | | | | | [address] | | | | + + + [...]
--- OUTSIDE RECORDS SUMMARY | ~2020-01-31 | XMS | Encounter Summary ---
Demographics + + + | Address | [address] | | | [place] [address] | + + + | Home Phone | | + + + | Preferred Language | Unknown | + + + | Marital Status | | + + + | Buddhist Affiliation | 1013 | + + + | Race | Unknown | + + + | Ethnic Group | Unknown | + + + Author + + + | Author | [facility] | | | and Alexana | + + + | Organization | [facility] | | | [...] 8TH | | | | | [facility] [place] | | | | | [address] | | + + + + + Care Team Providers + +------+ + | Care Industrial Seamstress Name | Role | Phone | + +------+ + PCP | Unavailable | + +------+ + Encounter Details +--------+ + + + + | Date | Type | Department | Care Team | Description | +--------+ + + + + | 06/29/ | Hospital | [facility] | Conversion | | | 2013 | Encounter | [facility] | Transaction, | | | | | CLINIC [address] | Provider Unknown | | | | | [place], [place] | | | | | | [phone] | (Fax) | | | | | [phone] | | | +--------+ + + + [...] | | | | | [place] [address] | | | | + + + + + + | Red Blood | 4.52Comment: Testing | 4.20 - 5.70 | EXTERNAL | | | Cells | performed at [facility], [address] | M/uL | LAB | | | Counted | [address], | | | | | | [place] [address] | | | | + + + + + + | Hemoglobin | 13.9Comment: Testing | 13.2 - 17.0 | EXTERNAL | | | | performed at [facility], [address] | g/dL | LAB | | | | [address], | | | | | | [place] [address] | | | | + + + + + + | Hematocrit, | 41.5Comment: Testing | 39.0 - 50.0 % | EXTERNAL | | | POC | performed at [facility], [address] | | LAB | | | | [address], | | | | | | [place] [address] | | | | + + + + + + | MCV | 91.9Comment: Testing | 80.0 - 100.0 fl | EXTERNAL | | | | performed at [facility], [address] | | LAB | | | | [address], | | | | | | [place] [address] | | | | + + + + + + | MCH | 30.7Comment: Testing | 27.0 - 34.0 pg | EXTERNAL | | | | performed at [facility], [address] | | LAB | | | | [address], | | | | | | [place] [address] | | | | + + + + + + | MCHC | 33.4Comment: Testing | 32.0 - 35.5 | EXTERNAL | | | | performed at [facility], [address] | g/dL | LAB | | | | [address], | | | | | | [place] [address] | | | | + + + + + + | RDW-CV | 47.3Comment: Testing | 37 - 53 fl | EXTERNAL | | | | performed at [facility], [address] | | LAB | | | | [address], | | | | | | [place] [address] | | | | + + + + + + | Platelet | 290Comment: Testing | 150 - 400 K/uL | EXTERNAL | | | Count | performed at [facility], [address] | | LAB | | | Plasma | [address], | | | | | | [place] [address] | | | | + + + + + + | MPV | 8.8Comment: Testing | fl | EXTERNAL | | | | performed at [facility], [address] | | LAB | | | | [address], | | | | | | [place] [address] | | | | + + + + + + | Differentia | AUTOMATEDComment: | | EXTERNAL | | | l Type | Testing performed at | | LAB | | | | [facility], [address] | | | | | | [place] | | | | | | [address] | | | | + + + + + + | % Segmented | 57.5Comment: Testing | % | EXTERNAL | | | | performed at [facility], [address] | | LAB | | | Neutrophils | [address], | | | | | | [place] [address] | | | | + + + + + + | % | 30.3Comment: Testing | % | EXTERNAL | | | Lymphocytes | performed at [facility], [address] | | LAB | | | | [address] [place], | | | | | | [place] [address] | | | | + + + + + + | % Monocytes | 9.0Comment: Testing | % | EXTERNAL | | | | performed at [facility], [address] | | LAB | | | | [address], | | | | | | [place] [address] | | | | + + + + + + | % | 2.1Comment: Testing | % | EXTERNAL | | | Eosinophils | performed at [facility], [address] | | LAB | | | | [address], | | | | | | [place] [address] | | | | + + + + + + | % Basophils | 1.1Comment: Testing | % | EXTERNAL | | | | performed at [facility], [address] | | LAB | | | | [address], | | | | | | [place] [address] | | | | + + + + + + | Absolute | 5.5Comment: Testing | 1.9 - 7.4 K/uL | EXTERNAL | | | Segmented | performed at [facility], [address] | | LAB | | | Neutrophils | [address], | | | | | | [place] [address] | | | | + + + + + + | Absolute | 2.9Comment: Testing | 1.0 - 3.9 K/uL | EXTERNAL | | | Lymphocytes | performed at [facility], [address] | | LAB | | | | [place], | | | | | | [place] [address] | | | | + + + + + + | Absolute | 0.9 (H)Comment: Testing | 0 - 0.8 K/uL | EXTERNAL | | | Monocytes | performed at [facility], [address] | | LAB | | | | [address], | | | | | | [place] [address] | | | | + + + + + + | Absolute | 0.2Comment: Testing | 0 - 0.5 K/uL | EXTERNAL | | | Eosinophils | performed at [facility], [address] | | LAB | | | [address], | | | | | | [place] [address] | | | | + + + + + + | Absolute | 0.1Comment: Testing | 0 - 0.1 K/uL | EXTERNAL | | | Basophils | performed at [facility], [address] | | LAB | | | | [place], | | | | | | [place] [address] | | | | + + + [...] | | | | | [place] [address] | | | | + + + + + + | K | 4.4Comment: Testing | 3.5 - 4.9 | EXTERNAL | | | | performed at [facility], [address] | mmol/L | LAB | | | | [address], | | | | | | [place] [address] | | | | + + + + + + | Cl | 104Comment: Testing | 99 - 109 mmol/L | EXTERNAL | | | | performed at [facility], [address] | | LAB | | | | [address], | | | | | | [place] [address] | | | | + + + + + + | CO2 | 27Comment: Testing | 23 - 32 mmol/L | EXTERNAL | | | | performed at [facility], [address] | | LAB | | | | [address], | | | | | | [place] [address] | | | | + + + + + + | Anion Gap | 8Comment: Testing | 5 - 20 mmol/L | EXTERNAL | | | | performed at [facility], [address] | | LAB | | | | [address], | | | | | | [place] [address] | | | | + + + + + + | Glucose, | 111 (H)Comment: Testing | 65 - 99 mg/dL | EXTERNAL | | | Fasting | performed at [facility], [address] | | LAB | | | | [address], | | | | | | [place] [address] | | | | + + + + + + | BUN | 13Comment: Testing | 8 - 25 mg/dL | EXTERNAL | | | | performed at [facility], [address] | | LAB | | | | [address], | | | | | | [place] [address] | | | | + + + + + + | Creatinine | 0.92Comment: Testing | 0.70 - 1.30 | EXTERNAL | | | | performed at [facility], [address] | mg/dL | LAB | | | | [address], | | | | | | [place] [address] | | | | + + + + + + | BUN/Creatin | 14Comment: Testing | | EXTERNAL | | | ine Ratio | performed at [facility], [address] | | LAB | | | | [address], | | | | | | [place] [address] | | | | + + + + + + | Calcium | 9.4Comment: Testing | 8.5 - 10.2 | EXTERNAL | | | | performed at [facility], [address] | mg/dL | LAB | | | | [facility], | | | | | | [place] [address] | | | | + + + [...] W | | | | | | [facility] [address], | | | | | | [place] [address] | | | | + + + [...]
--- OUTSIDE RECORDS SUMMARY | ~2020-01-31 | XMS | Encounter Summary ---
Demographics + + + | Address | [address] | | | [place] [address] | + + + | Home Phone | | + + + | Preferred Language | Unknown | + + + | Marital Status | | + + + | Adventism Affiliation | 1013 | + + + | Race | Unknown | + + + | Ethnic Group | Unknown | + + + Author + + + | Author | and [facility] | | | and [place] | + + + | Organization | and [facility] [...] [place] | | | | | [address] | | + + + + + Care Team Providers + +------+ + | Care Plant Manager Name | Role | Phone | [...] | +--------+ + + + + | 01/21/ | Hospital | [facility] | Brennen Bobo | Acute abdominal pain | | 2018 - | Encounter | [facility] | MD Ricci [address] | (Primary Dx); | | | | [address] [place] | [address] [place] | Dehydration, | | 01/23/ | | [place] [address] | [place] [address] | moderate; | | 2018 | | [phone] | Ninoska Walker MD | Transaminitis; | | | | | [address] | Intractable vomiting | | | | | [place] | with nausea, | | | | | [address] | unspecified vomiting | | | | | | type; Obstruction | | | | | | of biliary stent, | | | | | | initial encounter | +--------+ + + + + Social [...] might be differ ent from the original. [place] HOSPITALIST DISCHARGE SUMMARY Pt. Name/Age/: Reza [...] Nurse Practitioner Contact information: [address] [facility] [address] [facility] [address] Adrian Aponte MD In 3 weeks. Specialty: Gastroenterology Contact information: [address] [facility] [address] [facility] [address] Laboratory. Contact information: recheck CMP in 1 week Condition: Patient being discharged with condition improved Diet: soft low fat Greater than 30 minutes were spent on discharge and coordination of post-hospital care. Electronically signed by: Stephy Patel MD, 01/23/2018 12:17 [facility] Portions of this chart may have been created with [employer] voice recognition software. Occasi onal wrong-word or sound-alike substitutions may have occurred due to the inherent costello itations of voice recognition software. Please read the chart carefully and recognize, using context, where these substitutions have occurred documented in this encounter Discharge Instructions AttachmentsThe following attachments cannot be sent through Care Everywhere.Shahriar zapata, Discharge Instructions (Swazi)documented in this encounter Medications at Time of [...] bile duct is clear of all debris eather Chua RN - 01/23/2018 1:42 PM PDTIV taken out. [address] scripts given to pt and . DC info reviewed with them, they stated understanding. Pe rtinent info highlighted. Dr. Naik dropped in, clarified when to take PO ABX at home. All belongings gathered. went down to car. SENIOR INTERNATIONAL TAX MANAGER and RN took pt and belongings out at 13:4 5. Rody Krishnan P harmD - 01/23/2018 7:43 AM PDT PHARMACY SERVICES: ADMISSION MEDICATION REVIEW Reza Cespeeds is a 57 y.o. male admitted on 01/21/18. Patient is a reliable historian. Location of Patient when reviewed: ED X Medical Floor Patient s prior to admit medication and over the counter (OTC) medications/herbal supplem ents list obtained from: X Verbal interview X Patient able to recall SOME Name, strength, and directions X Pharmacy list names: [facility] [employer] insurance reported information X Outside [...] Prior to Admission Sig: Patient taking differently ECHOCARDIOGRAPHER as: Pantoprazole 20 mg tab 1 tab by mouth every morning before breakfast Not taking. Patient st ates medication is ineffective. Ondansetron 4 mg disintegrating tab Take 1 tab by mouth every 6 hours as needed for nausea Taking up to every 4 hours for severe nausea Best possible ECHOCARDIOGRAPHER medication list after pharmacy review: PT REPORTED TAKING NOT TAKING Medication Sig Last Dose Dispense Doc. Devlin docusate sodium (COLACE) 100 mg capsule Take 100 mg by mouth nightly. Taking Historical P MD chloe gabapentin (NEURONTIN) 300 mg capsule Take 300 mg by mouth 3 times daily. May increase to 600 mg by mouth twice daily Taking Differently Historical MD Claus LORazepam (ATIVAN) 2 MG tablet Take 2 [...] as needed for M uscle spasms. Taking Martin Devlin MD Multiple Vitamins-Minerals (CENTRUM SILVER PO) Take 1 tablet by mouth Daily. Taking Histo ricerlnida Devlin MD Nutritional Supplements (BOOST) LIQD Take 8 oz by mouth Daily as needed (for lack of appet ite). Taking Martin Devlin MD ondansetron (ZOFRAN ODT) 4 mg disintegrating tablet Take 4 mg by mouth every 6 hours as ne eded for Nausea. Taking Zarina Devlin MD oxyCODONE (ROXICODONE) 15 mg immediate release tablet [...] Daily as needed for Wound Care. Taking Martin Devlin MD tamsulosin (FLOMAX) 0.4 mg CAPS Take 0.8 mg by mouth Daily. Taking Mallorie Daniels Medication review performed and electronically signed by Teresa Portillo, Screw Cutter 6:53 Reviewed by Royd Franco, PharmD 01/23/2018 7:36 Isha Rachel MD - 01/22/2018 4:06 PM PDTFormatting of this note might be different from the origi nal. [facility] [place] HOSPITALIST BRIEF NOTE Patient: Reza Cespedes : 1960: Age: 57 y.o. MedRec: [id number] Admission date: 01/21/2018 Hospital day # : [...] arge tomorrow. Stephy Patel MD 01/22/2018 16:06 [facility] Portions of this chart may have been created with [employer] voice recognition software. Occasi onal wrong-word or [...] | Neutrophils | | K/uL | [facility] | [...] | 0.10 | 0.00 - 0.10 | [facility] | | | Basophils | | K/uL | [facility] | | | | [...] [address] | [place] | [phone] | | [facility] | | [address] | | | - LABORATORY | | [...] | | | | | mmol/L | [facility] | | | | | | MEDICAL | | | | | | CENTER - | | | | | | LABORATORY | | + + + + + + | K | 3.5 | 3.5 - 5.1 | [facility] | | | | | mmol/L | [facility] | | | | [...] 11 | 7 - 18 mg/dL | [facility] | | | | | | [facility] | | | | | | MEDICAL | | | | | | CENTER - | | | | | | LABORATORY | | + + + + + + | Creatinine | 0.85 | 0.60 - 1.30 | [facility] | | | | | mg/dL | [facility] | | | | | | MEDICAL | | | | | | CENTER - | | | | | | LABORATORY | | + + + + + + | eGFR if not | >60Comment: GLOMERULAR | >=60 | [facility] | | | | FILTRATION | mL/min/1.73m2 | [facility] | | | CYMRO | RATE,ESTIMATED | | MEDICAL | | | | mL/min/1.78r2Vgeq than | | CENTER - | | [...] [address] | [place] | [phone] | | [facility] | | [address] | | | - LABORATORY | | [...] Note | + + | Luis Long Results In - 01/22/2018 3:01 PM PDT [...] | | GastroenterologyPatient Name: Reza Xiong Date: 01/22/2018 | [facility] | | 2:09 PMMRN: [id number] #: [id number] of : | | | 1960Admit Type: InpatientAge: 57[facility]: [facility] 01Gender: MaleNote | | | Status: FinalizedAttending MD: Dc Naik , MDProcedure: | | | ERCPIndications: Abnormal abdominal CT, Bile duct stone on | | | Computed Tomogram Scan, Abnormal MRCP, | | | Abnormal abdominal ultrasoundProviders: Dc Naik, | | | , Perla Ponce RN, Aracelis Lewis RN, | | | Jluis Ruiz CMA, Edyta Rees, Commercial Sales Representative, | | | Tremaine Stevenson MD (Anesthesia [...] | | | the anesthesiologist and the geophysical data technician in the endoscopy suite. | | [...] | biliary stent was visible on the activities director scouting film. The esophagus was | | | [...] | | 2:23:41 PMScope Out: 2:40:01 PM [facility] | | | [place], [address] [place] [address] | | | - Advance diet as [...] |Scope Out: 2:40:01 PM | | | [facility], [address] [place] [address] | | | [address] | | + + -+ + +---------+ [...] 2018. PROTOCOL: | | | Coronal T2 activities director scouting, axial T2 activities director scouting, coronal 3D respiratory triggered, | | | [...] | dated January 22, 2018.PROTOCOL: Coronal T2 activities director scouting, axial T2 activities director scouting, coronal 3D respiratory | | triggered,coronal T2 [...] [address] | [place] | [phone] | | [facility] | | [address] | | | - LABORATORY | | [...] Performed at: 01 - N[facility] Frazier [address] [facility], | REFERENCE LAB | | [place] [id number] Marine Driller: Rom Stinson MD, Phone: | [facility] | | [phone] | | + + + + + + + + | Performing | Address | City/State/Zipcode | Phone Number | | Organization | | | | + + + + + | REFERENCE LAB | [address] | [place], [place] | [phone] | | [facility] | [facility] | [address] | | + + + + + SALAS Ruiz Reflex (01/22/2018 4:27 AM PDT) + + [...] - Nando Burden [address] [address], | REFERENCE LAB | | [place], [place] [id number] Marine Driller: Arturo Barriga MD, Phone: | [facility] | | [phone] | | + + + + + + + + | Performing | Address | City/State/Zipcode | Phone Number | | Organization | | | | + + + + + | REFERENCE LAB | [address] | [place], [place] | [phone] | | [facility] | [address] [place] | [address] | | + + + + + [...] Performed at: 01 - Nando Frazier [address], | REFERENCE LAB | | [place] [id number] Marine Driller: Rom Stinson MD, Phone: | [facility] | | [phone] | | + + + + + + + + | Performing | Address | City/State/Zipcode | Phone Number | | Organization | | | | + + + + + | REFERENCE LAB | [address] | [place], [place] | [phone] | | [facility] | [facility] | [address] | | + + + + + Uriah Ozuna (01/22/2018 4:27 AM PDT) + + + + + + | Component | Value | Ref Range | Performed | Pathologist | | | | | At | Signature | + + + + + + | Bilirubin, | 2.10 (H) | 0.00 - 0.20 | [facility] | | | Direct | | mg/dl | [facility] | | | | [...] + | [facility] | [address] | [place] | [phone] | | [facility] | | [address] | | | - LABORATORY | | [...] | en Level | | | [facility] | | [...] + | [facility] | [address] | [place] | [phone] | | [facility] | | [address] | | | - LABORATORY | | [...] | | | SERUM/PLASM | | | [facility] | | | A | | | [...] [address] | [place] | [phone] | | [facility] | | [address] | | | - LABORATORY | | | | + + + + + GGT (01/22/2018 4:27 AM PDT) + +---------+ + + + | Component | Value | Ref Range | Performed | Pathologist | | | | | At | Signature | + +---------+ + + + | GGT | 580 (H) | 7 - 50 U/L | [facility] | | | | | | [facility] [...] + + | [facility] | [address] | [place] | [phone] | | [facility] | | [address] | | | - LABORATORY | | | | + + + + + C-Reactive Protein (01/22/2018 4:27 AM PDT) + + + + + + | Component | Value | Ref Range | Performed | Pathologist | | | | | At | Signature | + + + + + + | CRP | 164.48 (H) | <8.00 mg/L | [facility] | | | | [...] + | [facility] | [address] | [place] | [phone] | | [facility] | | [address] | | | - LABORATORY | | | | + + + + + Sedimentation Rate (01/22/2018 4:27 AM PDT) + +--------+ + + + | Component | Value | Ref Range | Performed | Pathologist | | | | | At | Signature | + +--------+ + + + | Erythrocyte | 39 (H) | <20 mm/hr | [facility] | | | | | | [facility] | | | Sedimentati | | [...] [address] | [place] | [phone] | | [facility] | | [address] | | | - LABORATORY | | [...] test | | | | | | ([id number]). | | | | + + + + + + + + | Specimen | + + | Blood | + + + + + | Narrative | Performed At | + + + | Performed at: 01 - [facility] [address] [address], | REFERENCE LAB | | [place], [place] [id number] Marine Driller: Samuel Wallace MD, Phone: | [facility] | | [phone] | | + + + + + + + + | Performing | Address | City/State/Zipcode | Phone Number | | Organization | | | | + + + + + | REFERENCE LAB | [address] | [place], [place] | [phone] | | [facility] | [address] | [address] | | + + + + + Jose LARA (01/22/2018 4:27 AM PDT) + + + + + + | Component | Value | Ref Range | Performed | Pathologist | | | | | At | Signature | + + + + + + | Prothrombin | 13.3 | 11.3 - 13.9 | [facility] | | | Time | | seconds | [facility] | | | | [...] | + + + + + | [facility] | [address] | [place] | [phone] | | [facility] | | [address] | | | - LABORATORY | | | | + + + + + Magnesium (01/22/2018 4:27 AM PDT) + +-------+ + + + | Component | Value | Ref Range | Performed | Pathologist | | | | | At | Signature | + +-------+ + + + | Magnesium | 1.8 | 1.8 - 2.5 mg/dL | [facility] | | | | | [...] ST. | [address] | [place], [place] | [phone] | | [facility] | | [address] | | | - LABORATORY | | [...] | | | | g/dL | [facility] | | | | | | MEDICAL [...] ST. | [address] | [place] | [phone] | | [facility] | | [address] | | | - LABORATORY | | [...] | 0.90 | 0.60 - 1.30 | [facility] | | | | | mg/dL | [facility] | | | | | | MEDICAL | | | | | | CENTER - | | | | | | LABORATORY | | + + + + + + | eGFR if not | >60Comment: GLOMERULAR | >=60 | [facility] | | | | FILTRATION | mL/min/1.73m2 | [facility] | | | CYMRO | RATE,ESTIMATED | | MEDICAL | | | | mL/min/1.40y1Qxim than | | CENTER - | | [...] ST. | [address] | [place], [place] | [phone] | | [facility] | | [address] | | | - LABORATORY | | [...] report was provided by MD Enzo, [place], 01/21/2018 | | | 10:53:54 PM Dictated [...] + + | Performing | Address | City/State/[facility]code | Phone Number | | Organization | [...] - 1.030 | [facility] | | | [place], | | | [facility] | | [...] | | Cells, | | | [facility] | | | Urine | | | [...] | | Comment | Indicated | | [facility] | | | [...] ST. | [address] | [place], [place] | [phone] | | [facility] | | [address] | | | - LABORATORY | | [...] | Top Tube | | | [facility] | | | | | [...] [address] | [place] | [phone] | | [facility] | | [address] | | | - LABORATORY | | [...] | | Top Tube | | | [facility] | | | | | | [...] [address] | [place] | [phone] | | [facility] | | [address] | | | - LABORATORY | | | | + + + + + Extra Lavender Top Tube (01/21/2018 10:17 PM PDT) + +-------+ + + + | Component | Value | Ref Range | Performed | Pathologist | | | | | At | Signature | + +-------+ + + + | Extra | Done | | [facility] | | | Lavender | | | [facility] | | | Top Tube | | [...] + | [facility] | [address] | [place] | [phone] | | [facility] | | [address] | | | - LABORATORY | | [...] | | Top Tube | | | [facility] | | | | | | MEDICAL [...] + | [facility] | [address] | [place] | [phone] | | [facility] | | [address] | | | - LABORATORY | | [...] | | Screen | | | [facility] | | | | | | MEDICAL [...] St | [place] | | | [facility] | | [address] | | | - BLOOD BANK | [...] + | [facility] | [address] | [place], [place] | [phone] | | [facility] | | [address] | | | - LABORATORY | | [...] | | | | | mmol/L | [facility] | | | | [...] 18 | 7 - 18 mg/dL | [facility] | | | | | | [facility] | | | | | | MEDICAL | | | | | | CENTER - | | | | | | LABORATORY | | + + + + + + | Creatinine | 1.23 | 0.60 - 1.30 | [facility] | | | | | mg/dL | [facility] | | | | | | MEDICAL | | | | | | CENTER - | | | | | | LABORATORY | | + + + + + + | eGFR if not | 60Comment: GLOMERULAR | >=60 | [facility] | | | | FILTRATION | mL/min/1.73m2 | [facility] | | | CYMRO | RATE,ESTIMATED | | MEDICAL | | | | mL/min/1.18w3Vqzf than | | CENTER - | | [...] 4.2 | 3.2 - 5.0 g/dL | [facility] [...] + | [facility] | [address] | [place] | [phone] | | [facility] | | [address] | | | - LABORATORY | | [...] | | | | | g/dL | [facility] | | | | | | [...] | | | Eosinophils | | | [facility] | | [...] [address] | [place] | [phone] | | [facility] | | [address] | | | - LABORATORY | | | | + + + + + documented in this encounter Visit Diagnoses + + | Diagnosis | + + | Acute abdominal pain Abdominal pain, unspecified site | + + | Dehydration, moderate Dehydration | + + | Transaminitis Nonspecific elevation of levels of transaminase or lactic acid | | dehydrogenase (LDH) | + + | Intractable vomiting with nausea, unspecified vomiting type | + + | Obstruction of biliary stent, initial encounter | + + documented in this [...] | | +---+---+ + +-------+ +--------+---+---+ | indomethacin (INDOCIN) | Given | 01/23/20 | 100 mg | | | | suppository Rectal, PRN, | | 18 2:22 | | | | | Starting 01/22/18 at 1422 | | PM PDT | | | | + +-------+ +--------+---+---+ +---+---+ | | | +---+---+ + +-------+ +--------+---+---+ | iohexol (OMNIPAQUE 350) 350 | Given | 01/22/20 | 80 mLs | | | | mg/mL injection 80 mL 80 mL, | | 18 10:33 | | | | | Intravenous, ONCE PRN, Other, | | PM PDT | | | | | Starting Nadia 01/21/18 at 2233, For | | | | | | | 1 dose, Cat Scanner | | | [...] | | | | PRN, Pain, Starting 01/22/18 | | AM PDT | | | [...] | ondansetron (ZOFRAN) injection | Given | 01/22/20 | 4 mg | | | | 4 mg 4 mg, Intravenous, EVERY 1 | | 18 10:35 | | | | | HOUR PRN, Nausea, Vomiting, | | PM PDT | | | | | Starting [facility] 01/21/18 at 2223, For | | | | | | | 2 doses | | | | | [...] | | | Starting Thu01/22/18 at 0103, | | | | | [...] +---+---+ | | | +---+---+ + +---------+ +---------+ +---+ | pantoprazole (PROTONIX) 0.8 | New Bag | 01/22/20 | 8 mg/hr | 10 mL/hr | | | mg/mL in sodium chloride 0.9% 100 | | 18 10:45 | | | | | mL infusion 8 mg/hr (10 mL/hr), | | PM PDT | | | | | at 10 mL/hr, Intravenous, | | | | | | | CONTINUOUS, Starting Nadia 01/21/18 | | | | | | | at 2200, Start drip AFTER initial | | | | | | | 80mg IV bolus. , | | | | | | + +---------+ +---------+ +---+ +---+---+ | | | +---+---+ + [...] +-------+---+---+ | pantoprazole (PROTONIX) | Given | 01/22/20 | 80 mg | | | | injection 80 mg 80 mg, | | 18 10:37 | | | | | Intravenous, ONCE, [facility] 01/21/18 at | | PM PDT | | | | | 2200, For 1 dose, Mix each 40mg | | | | | | | vial with 10 mL NS to make 4 | | | | | | | mg/mL., | | | | | | + +-------+ +-------+---+---+ +---+---+ | | | +---+---+ + +---------+ +--------+-------+---+ | sodium chloride 0.9% (NS) bolus | New Bag | 01/22/20 | 1,000 | 2000 | | | 1,000 mL 1,000 mL, Intravenous, | | 18 10:33 | mLs | mL/hr | | | Administer over 30 Minutes, | | PM PDT | | | | | ONCE, [facility] 01/21/18 at 2225, For 1 | | | | | | | dose | | | | | | + +---------+ +--------+-------+---+ +---+---+ | | | +---+---+ + +---------+ +--------+-------+---+ | sodium chloride 0.9% (NS) bolus | New Bag | 01/23/20 | 1,000 | 2000 | | | 1,000 mL 1,000 mL, Intravenous, | | 18 12:44 | mLs | mL/hr | | | Administer over 30 Minutes, | | AM PDT | | | | | ONCE, [facility] 01/22/18 at 0015, For 1 | | | | | | | dose | | | | | | + +---------+ +--------+-------+---+ +---+---+ | | | +---+---+ + + + +---+-------+---+ | sodium chloride 0.9% (NS) | Rate/Dos | 01/23/20 | | 125 | | | infusion at 100 mL/hr, | e Change | 18 1:22 | | mL/hr | | | Intravenous, CONTINUOUS, Starting | | AM PDT | | | | | [facility] 01/21/18 at 2200 | | | | | | + + + +---+-------+---+ +---------+ +---+-------+---+ | New Bag | 01/22/20 | | 100 | | | | 18 10:44 | | mL/hr | | | | PM PDT | | | | +---------+ +---+-------+---+ +---+---+ | | | +---+---+ + +---------+ [...] +-------+ +--------+---+---+ +-------+ +--------+---+---+ | Given | 01/23/20 | 0.8 mg | | | | | 18 9:14 | | | | | | AM PDT | | | | +-------+ +--------+---+---+ +---+---+ | | | +---+---+ documented in this encounter"
--- OUTSIDE RECORDS SUMMARY | ~2020-01-31 | XMS | Encounter Summary ---
Demographics + + + | Address | [address] | | | [place] [address] | + + + | Home Phone | | + + + | Preferred Language | Unknown | + + + | Marital Status | | + + + | Protestant Affiliation | 1013 | + + + | Race | Unknown | + + + | Ethnic Group | Unknown | + + + Author + + + | Author | [facility] | | | and [place] | + + + | Organization | [facility] | | | and [...] [place] | | | | | [address] | | + + + + + Care Team Providers + +------+ + | Care Food Runner Name | Role | Phone | + [...] [place] | | | | | [address] | [address] | | | | | [phone] | [phone] | | | | | | | [...] | + +--------+ + + + | VITAMIN D, | Routin | 01/01/2015 | | Results for this | | DEFICIENCY SCREEN | e | 2:15 PM | | procedure are in the | | (25-HYDROXY) | | PDT | | results section. | + +--------+ + + + documented in this encounter Results Vitamin D, Deficiency Screen (25-Hydroxy) (01/01/2015 2:15 PM PDT) + + + + + + | Component | Value | Ref Range | Performed | Pathologist | | | | | At | Signature | + + + + + + | Vit D, | 22 (L)Comment: <20 ng/mL | 30 - 150 ng/mL | EXTERNAL | | | 25-Hydroxy | Suggests | | LAB | | | | deficiency of 25-OH | | | | | | Vitamin D. 20-29 ng/mL | | | | | | Suggests a relative | | | | | | insufficiency of 25-OH | | | | | | Vitamin D. 30-150 ng/mL | | | | | | Suggests a sufficient | | | | | | level of 25-OH Vitamin | | | | | | D. >150 ng/mL | | | | | | Toxic level of 25-OH | | | | | | Vitamin D. Blood levels | | | | | | of 25 Hydroxy Vitamin D | | | | | | vary with the extent of | | | | | | sun exposure. Values | | | | | | tend to be highest in | | | | | | late summer and lowest | | | | | | in the spring. Values | | | | | | also tend to decrease | | | | | | with age, due to | | | | | | decreased precursor | | | | | | synthesis in the | | | | | | skin.Testing performed | | | | | | at [facility];[address] [facility] | | | | | | [facility];[place], [place] | | | | | | [address] | | | | + + + [...]
--- OUTSIDE RECORDS SUMMARY | ~2020-01-31 | XMS | Encounter Summary ---
Demographics + + + | Address | [address] | | | [place] [address] | + + + | Home Phone | | + + + | Preferred Language | Unknown | + + + | Marital Status | | + + + | Evangelical Affiliation | Unknown | + + + | Race | White | + + + | Ethnic Group | Not or | + + + Author + + + | Author | [facility] | + + + | Organization | [facility] | + + + | Address | Unknown | + + + | Phone | Unavailable | + + + Support + + +---------+ + | Name | Relationship | Address | Phone | + + +---------+ + | Maria Isabel Cespedes | ECON | Unknown | | + + +---------+ + Care Team Providers + +------+ + | Care Salt Manager Name | Role | Phone | + +------+ + | Allison Fairchild NP | PCP | | + +------+ + Encounter Details +--------+------+ + + + | Date | Type | Department | Care Team | Description | +--------+------+ + + + | 03/11/ | Lab | Laboratory at [facility] | | Renal artery | | 2019 | | [address] | | stenosis (HCC) | | | | [facility] | | | | | | [place], [address] [place] [address] | | | | | | [place], [place] | | | | | | [address] | | | | | | [phone] | | | +--------+------+ + + + [...] + + + + + | [facility] | [address] | [place] [address] | | | SERVICES, CORE | PARK [...] by | | | | | | [address] | | | | | | [address], [facility] | | | | | | [address] | | | | | | [phone]. | | | | | | Melecio agrawal MD, | | | | | | Lab. Director | | | | + + + + + + + + | Specimen | + + | Blood - Blood | | (substance) | + + + + + + + | Performing | Address | City/State/[facility] | Phone Number | | Organization | | | | + + + + + | [facility] | [address] | [place], [place] | | | UN[facility] P[facility] | | [address] | | + + + + + [...] [facility] | [address] | [place] [address] | | | SERVICES, CORE | PARK [...] | | | LABORATORY | | | DOMINICAN | | | SERVICES, | | | [...] MDRD equation recommended by the National | IASU | | Kidney Disease Education Program. Estimated [...] [facility] | [address] | [place] [address] | | | SERVICES, CORE | PARK [...] | + + + + + | [facility] | [address] | [place] [address] | | | SERVICES, CORE | [address] | | | + + + + + documented in this encounter Visit Diagnoses + + | Diagnosis | + + | Renal artery stenosis (HCC) Atherosclerosis of renal artery | + + documented in this encounter"
--- OUTSIDE RECORDS SUMMARY | ~2020-01-31 | XMS | Encounter Summary ---
Demographics + + + | Address | [address] | | | [place] [address] | + + + | Home Phone [...] Author | [facility] | | | and [place] | + + + | Organization | [facility] | [...] [place] | | | | | [address] | | + + + + + Care Team Providers + +------+ + | Care Smearer Name | Role | Phone | + +------+ + | Allison Fairchild NP | PCP | | + +------+ + Reason for Visit +---------+ + | Reason | Comments | +---------+ + | Results | [facility]--CMP, CRP, CBC, ESR | +---------+ + Encounter Details +--------+ + + + + | Date | Type | Department | Care Team | Description | +--------+ + + + + | 08/25/ | Documentati | [facility] | Shannan Pastrana | Results | | 2019 | on | INFECTIOUS DISEASE | Deidre Jean MD | ([facility]--CMP, | | | | [address] | [address] | CRP, CBC, ESR) | | | | [place], [place] | [place] [address] | | | | | [address] | [phone] | | | | | [phone] | | | +--------+ + + + [...] + | SEDIMENTATION RATE | Routin | 08/22/2019 | | Results for this | | | e | | | procedure are in the | | | | | | results section. | + +--------+ + + + | CBC WITH | Routin | 08/22/2019 | | Results for this | | DIFFERENTIAL | e | | | procedure are in the | | | | | | results section. | + +--------+ + + + | C-REACTIVE PROTEIN | Routin | 08/22/2019 | | Results for this | | | e | | | procedure are in the | | | | | | results section. | + +--------+ + + + | COMPREHENSIVE | Routin | 08/22/2019 | | Results for this | | METABOLIC PANEL | e | | | procedure are in the | | | | | | results section. | + +--------+ + + + documented in this encounter Results Sedimentation Rate (08/22/2019) + +--------+ + + + | Component | Value | Ref Range | Performed | Pathologist | | | | | At | Signature | + +--------+ + + + | Erythrocyte | 55 (A) | 0 - 10 mm/hr | | | | | | | | | | Sedimentati | | | | | | on Rate | | | | | + +--------+ + + + + + | Specimen | + + | Blood | + + CBC with Differential (08/22/2019) + +-------+ + + + | Component | Value | Ref Range | Performed | Pathologist | | | | | At | Signature | + +-------+ + + + | WBC | 7.8 | | | | + +-------+ + + + | RBC COUNT. | 4.43 | | | | + +-------+ + + + | Hemoglobin | 12.9 | | | | + +-------+ + + + | HCT, | 39.2 | | | | | External | | | | | + +-------+ + + + | MCV | 88.4 | | | | + +-------+ + + + | RDW | 16.6 | | | | + +-------+ + + + | MCH | 29 | | | | + +-------+ + + + | MCHC | 33 | | | | + +-------+ + + + | PLT, | 422 | | | | | External | | | | | + +-------+ + + + | NEUTROPHILS | 59.0 | % | | | | BL | | | | | + +-------+ + + + | LYMPHOCYTES | 27.2 | % | | | | BL | | | | | + +-------+ + + + | MONOCYTES | 9.1 | | | | | BAL | | | | | + +-------+ + + + | Eosinophil | 3.4 | | | | | Count | | | | | + +-------+ + + + | Basos | 1.3 | | | | + +-------+ + + + + + | Specimen | + + | Blood | + + C-Reactive Protein (08/22/2019) + +-------+ + + + | Component | Value | Ref Range | Performed | Pathologist | | | | | At | Signature | + +-------+ + + + | CRP | 12.5 | mg/L | | | + +-------+ + + + + + | Specimen | + + | Blood | + + Comprehensive Metabolic Panel (08/22/2019) + +-------+ + + + | Component | Value | Ref Range | Performed | Pathologist | | | | | At | Signature | + +-------+ + + + | Na | 140 | mmol/L | | | + +-------+ + + + | K | 4.0 | 3.2 - 5.7 | | | | | | mmol/L | | | + +-------+ + + + | Cl | 100 | mmol/L | | | + +-------+ + + + | CO2 | 24 | mmol/L | | | + +-------+ + + + | Anion Gap | 20 | mmol/L | | | + +-------+ + + + | Glucose | 94 | mg/dL | | | + +-------+ + + + | Urea | 20 | | | | | Nitrogen, | | | | | | Body fluid | | | | | + +-------+ + + + | CREA | 0.99 | 0.50 - 1.30 | | | | | | mg/dL | | | + +-------+ + + + | GFR | 77 | | | | | ESTIMATE | | | | | | (REF) | | | | | + +-------+ + + + | BUN | 20 | mg/dL | | | + +-------+ + + + | Calcium | 9.2 | | | | + +-------+ + + + | AST | 25 | U/L | | | + +-------+ + + + | ALT | 13 | U/L | | | + +-------+ + + + | Alkaline | 110 | U/L | | | | Phosphatase | | | | | + +-------+ + + + | Bilirubin | 0.3 | mg/dL | | | | Total | | | | | + +-------+ + + + | Protein, | 7.6 | | | | | Total | | | | | + +-------+ + + + | Albumin | 4.2 | g/dL | | | + +-------+ + + + | Globulin | 3.4 | | | | + +-------+ + + + | A/G Ratio | 1.2 | | | | + +-------+ + + + + + | Specimen | + + | Blood | + + documented in this encounter Visit Diagnoses Not on filedocumented in this encounter"
--- OUTSIDE RECORDS SUMMARY | ~2020-01-31 | XMS | Encounter Summary ---
Demographics + + + | Address | [address] | | | [place] [address] | + + + | Home Phone | | + + + | Preferred Language | Unknown | + + + | Marital Status | | + + + | Quaker Affiliation | 1013 | + + + | Race | Unknown | + + + | Ethnic Group | Unknown | + + + Author + + + | Author | [facility] | | | and [place] | + + + | Organization | [facility] | | | and [place] | + + + | Address | Unknown | + + + | Phone | Unavailable | + + + Support + + + + + | Name | Relationship | Address | Phone | + + + + + | eTodora Cespedes | ECON | [address] | | | | | [place] | | | | | [address] | | + + + + + Care Team Providers + +------+ + | Care Food Service Ambassador Name | Role | Phone | + [...] [place] | | | | | [address] | [address] | | | | | [phone] | [phone] | | | | | | | [...] | + +--------+ + + + | IRON, TOTAL | Routin | 01/01/2015 | | Results for this | | | e | 2:15 PM | | procedure are in the | | | | PDT | | results section. | + +--------+ + + + documented in this encounter Results Iron, Total (01/01/2015 2:15 PM PDT) + + + + + + | Component | Value | Ref Range | Performed | Pathologist | | | | | At | Signature | + + + + + + | Iron | 60Comment: Testing | 45 - 190 ug/dL | EXTERNAL | | | | performed at [facility];[address] | | LAB | | | | [place] | | | | | | [place] [address] | | | | + + + [...]
--- OUTSIDE RECORDS SUMMARY | ~2020-01-31 | XMS | Encounter Summary ---
Demographics + + + | Address | [address] | | | [place] [address] | + + + | Home Phone | | + + + | Preferred Language | Unknown | + + + | Marital Status | | + + + | Christian Affiliation | 1013 | + + + | Race | Unknown | + + + | Ethnic Group | Unknown | + + + Author + + + | Author | [facility] | | | and [place] | + + + | Organization | [facility] | [...] [place] | | | | | [address] | | + + + + + Care Team Providers + +------+ + | Care Marketing Clerk Name | Role | Phone | [...] | | | | | | RI EGD | | | | | | | TRANSORAL | | | | | | | BIOPSY | | | | | | | SINGLE/MULTI | | | | | | | PLE RI | | | | | | [...] + + | 11/18/ | Hospital | [facility] | Adrian Aponte MD | Nausea; Epigastric | | 2018 | Encounter | [facility] | [address] | pain; Early satiety; | | | | [address] | [place] | Abdominal pain, | | | | [place], [place] | [address] | generalized | | | | [address] | [phone] | | | | | [phone] | | | +--------+ + + + [...] 11/18/2017 | PROVATION | | 8:29 AMMRN: [id number] #: [id number] of : | | | 1960Admit Type: AmbulatoryAge: 56Room: [facility] 01Gender: MaleNote | | | Status: FinalizedAttending MD: Adrian Aponte [facility] | | | Upper GI endoscopyIndications: Epigastric abdominal | | | pain, Nausea with vomitingProviders: Adrian Aponte MD, | | | Caroline Beltran RN, Edyta Kilpatrick | | | Cabrera, Manager Investment, CARMELLA MELO, | | | DO (Anesthesia [...] | | | the anesthesiologist and the formula technician in the pre-procedure | | | [...] | | 8:39:59 AMScope Out: 8:48:59 AM [facility] | | | [place], [address] [place] [address] | | | - Await pathology results. [...] |Scope Out: 8:48:59 AM | | | [facility], [address] [place] [address] | | | [address] | | + + -+ + +---------+ [...] for increased | | | epithelial eosinophils. JVR:[facility]:C2NR GROSS DESCRIPTION: | | | Received [...] | | | preparation were performed by Natanael Ulien, [address] | | | [address], [place] [address] (Assistant Women'S Rowing Coach: Alex Hathaway M.D. | | | CLIA#: [id number]). Professional interpretation was performed by | | | Natanael Ulien, [facility], [address] | [address] [place] [address] (Assistant Women'S Rowing Coach: Alex Hathaway, | | | [place]; CLIA#: [id number]). Diagnostician: Alex Hathaway MD | | | [...]
--- OUTSIDE RECORDS SUMMARY | ~2020-01-31 | XMS | Encounter Summary ---
Demographics + + + | Address | [address] | | | [place] [address] | + + + | Home Phone | | + + + | Preferred Language | Unknown | + + + | Marital Status | | + + + | Sabianism Affiliation | 1013 | + + + | Race | Unknown | + + + | Ethnic Group | Unknown | + + + Author + + + | Author | [facility] | | | and [place] | + + + | Organization | [facility] | | | [...] [place] | | | | | [address] | | + + + + + Care Team Providers + +------+ + | Care Internet Webmaster Name | Role | Phone | + [...] | +--------+ + + + + | 01/22/ | Anesthesia | [facility] | Tremaine Stevenson | | | 2018 | Event | [facility] | Valentín ROSARIO MD [address] | | | | | [address] | [address] [facility] | | | | | [place] | [place] [address] | | | | | [address] | [phone] | | | | | [phone] | | | | | | | Luis Spann | | | | | | MD Mathew [address] | | | | | | [address] [place] | | | | | | [place] [address] | | | | | | [phone] | | | | | | | | +--------+ + + + + Anesthesia Record + + + + + | Procedure Name | Responsible | Anesthesia Start | Anesthesia Stop Time | | | Anesthesiologist | Time | | + + + + + | ERCP (Left Mouth) | Tremaine Stevenson | 01/22/18 1417 | 01/22/18 1449 | | | II, MD | | | + + + + + +----+---+ + + | Da | T | Event | Comment | | te | i | | | | | m | | | | | e | | | +----+---+ + + | 05 | 1 | | | | /1 | 4 | | | | 8/ | 0 | | | | 20 | 4 | | | | 18 | | | | +----+---+ + + | | 1 | An Checkout | Pre-use anesthesia machine/equipment checkout. | | | 4 | | | | | 0 | | | | | 5 | | | +----+---+ + + | | 1 | An Start | Reassessment prior to anesthesia induction/procedure. | | | 4 | | | | | 1 | | | | | 7 | | | +----+---+ + + | | 1 | AN | Per surgeon request | | | 4 | Antibiotic | | | | 1 | declined | | | | 7 | | | +----+---+ + + | | 1 | Pre-Procedu | | | | 4 | ral Timeout | | | | 1 | Completed | | | | 7 | | | +----+---+ + + | | 1 | First | | | | 4 | Inc/Proc St | | | | 2 | | | | | 1 | | | +----+---+ + + | | 1 | an stop | | | | 4 | data | | | | 4 | | | | | 6 | | | +----+---+ + + | | 1 | An Stop | Patient handed off to recovery nurse. | | | 4 | | | | | 9 | | | +----+---+ + + +------+ | Meds | +------+ + + + | Name | Total | + + + | propofol (DIPRIVAN) injection | 50 mg | | (bolus) (20 mL) | | + + + | propofol (DIPRIVAN) injection | 446.4 mg | | (bolus) (20 mL) | | + + + | lidocaine 2% | 100 mg | + + + | LR (Infusion) | 300 mL | + + + + + | Name | + + | O2 Flow Rate (L/Min) | + + + + | No blood administrations on file. | + + +--------+ + + + | Type | Details | Placement | Removal | +--------+ + + + | Periph | 01/21/18; 2215; Right; | 01/21/18 2215 by | 01/23/18 1315 by | | eral | Antecubital; [id number] | Dennis Hills RN | Heather Chua RN | | IV | catheter system; 20 gauge, 1 in | | | | | length; Hematology, Chemistry, | | | | | Blood Bank; 0; no longer | | | | | indicated; healing within | | | | | expectations; 01/23/18; 1315 | | | +--------+ + + + [...] in this encounter Administered Medications + +---------+ +------+------+------+ | Medication Order | MAR | Action | Dose | Rate | Site | | | Action | Date | | | | + +---------+ +------+------+------+ | lactated ringers (LR) infusion | New Bag | 01/23/20 | | | | | Intravenous, CONTINUOUS PRN, | | 18 2:17 | | | | | Starting 01/22/18 at 1417, | | PM PDT | | | | | Anesthesia Intra-op | | | | | | + +---------+ +------+------+------+ +---+---+ | | | +---+---+ + +-------+ +--------+---+---+ | lidocaine (PF) 2% injection | Given | 01/23/20 | 100 mg | | | | Intravenous, PRN, Starting Fri | | 18 2:17 | | | | | 01/22/18 at 1417, Anesthesia | | PM PDT | | | | | Intra-op | | | | | | + +-------+ +--------+---+---+ +---+---+ | | | +---+---+ + +-------+ +-------+---+---+ | propofol (DIPRIVAN) injection | Given | 01/23/20 | 50 mg | | | | Intravenous, PRN, Starting Fri | | 18 2:17 | | | | | 01/22/18 at 1417, Anesthesia | | PM PDT | | | | | Intra-op | | | | | | + +-------+ +-------+---+---+ +---+---+ | | | +---+---+ + +---------+ + +--------+---+ | propofol (DIPRIVAN) injection | New Bag | 01/23/20 | 200 | 111.6 | | | Intravenous, CONTINUOUS PRN, | | 18 2:17 | mcg/kg/m | mL/hr | | | Starting 01/22/18 at 1417, | | PM PDT | in | | | | Anesthesia Intra-op | | | | | | + +---------+ + +--------+---+ +---+---+ | | | +---+---+ documented in this encounter"
--- OUTSIDE RECORDS SUMMARY | ~2020-01-31 | XMS | Encounter Summary ---
Demographics + + + | Address | [address] | | | [place] [address] | + + + | Home Phone [...] Team Providers + +------+ + | Care Lace Stripper Name | Role | Phone | + [...] | | | | | | [place], [address] [place] [address] | | | | | | [place], [place] | | | | | | [address] | | | | | | [phone] | | | +--------+------+ + + + [...] by | | | | | | [employer],[address] | | | | | | [address], [facility] [place] [place] | | | | | | [address] | | | | | | [phone]. | | | | | | Melecio [...] [facility] | [address] | [place], [place] | | | UNIV PTH [facility] INT[facility] | | [address] | | + + + + + [...] [facility] | [address] | [place] [address] | | | SERVICES, CORE | PARK [...] | + + + + + | [facility] | [address] | [place] [address] | | | SERVICES, CORE | [address] [...] | + + + + + | [facility] | [address] | [place] [address] | | | SERVICES, CORE | [address] [...] [facility] | | | NIL | by [employer] | | REG UNIV | | | | [address], [facility] [place] | | PTH - INTFC | | | | [address] | | | | | | [phone]. | | | | | | Melecio [...] (http://www.cdc.gov/mmwr | | | | | | /preview/mmwrhtml/ff6037 | | | | | | [email or web address].htm), [...] [facility] | [address] | [place], [place] | | | UN[facility] | | [address] | | + + + + + [...] | + + + + + | [facility] | [address] | [place] [address] | | | SERVICES, CORE | [address] [...] [facility] | [address] | [place] [address] | | | SERVICES, CORE | PARK [...] | | | LABORATORY | | | ARMENIAN | | | SERVICES, | | | [...] the MDRD equation recommended by the | [facility] | | National Kidney Disease Education [...] | + + + + + | [facility] | [address] | [place] [address] | | | SERVICES, CORE | [address] | | | + + + + + SEDIMENTATION RATE (11/02/2018 4:55 PM PST) + +--------+ + + + | Component | Value | Ref Range | Performed | Pathologist | | | | | At | Signature | + +--------+ + + + | SEDIMENTATI | 54 (H) | 0 - 20 mm/hr | LARUBÉN | | | ON RATE | | [...] [facility] | [address] | [place] [address] | | | [place] BOOGIE | [address] | | | + + + + + documented in this encounter Visit Diagnoses + + | Diagnosis | + + | 

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
--- OUTSIDE RECORDS SUMMARY | ~2020-01-31 | XMS | Encounter Summary ---
Demographics + + + | Address | [address] | | | [place] [address] | + + + | Home Phone [...] | Author | [facility] | | | and [place] | + + + | Organization | [facility] | | | and [...] [place] | | | | | [address] | | + + + + + Care Team Providers + +------+ + | Care Senior C Web Developer Name | Role | Phone | + [...] + + | 09/23/ | Telephone | [facility] | Anival Stevenson MD | Results | | 2020 | | GENERAL SURGERY [address] | [address] | | | | | [address] | [address] [place], [place] | | | | | [place], [place] | [address] | | | | | [address] | | | | | | [phone] | | | +--------+ + + + [...]
--- OUTSIDE RECORDS SUMMARY | ~2020-01-31 | XMS | Encounter Summary ---
Demographics + + + | Address | [address] | | | [place] [address] | + + + | Home Phone [...] + | Author | [facility] | | | and Alexana | + + + | Organization | [facility] | | [...] [place] | | | | | [address] | | + + + + + Care Team Providers + +------+ + | Care Rn Compliance Name | Role | Phone | + [...] [address] | | | | | | (FORMERLY [facility]) | [place], [place] | | | | | | | [address] | | | | | | | Phone: | | | | | | | [phone] | | | | | | | Fax: | | | | | | | [phone] | | + + + + + [...] + + | 07/29/ | Hospital | [facility] | [place], | Intra-abdominal | | 2019 - | Encounter | [facility] [address] | [address] | abscess (HCC) | | | | [address] | [address] | (Primary Dx); | | 08/09/ | | [place], [place] | [place] [address] | Abdominal wall | | 2019 | | [address] | [phone] | abscess; History of | | | | [phone] | | ventral hernia | | | | | [place], | repair; History of | | | | | MD Michael [address] | allergy to | | | | | [address] | antibiotic agent; | | | | | [place] [address] | Abdominal pain, | | | | | [phone] | generalized; HTN | | | | | | (hypertension), | | | | | Kai Dunne DO | benign; History of | | | | | [address] | hernia repair; | | | | | [place] [address] | Gastroesophageal | | | | | [phone] | reflux disease, | | | | | | esophagitis presence | | | | | Elvi Bragg MD | not specified | | | | | [address] | | | | | | [place] [address] | | | | | | [phone] | | | | | | | | | | | | Marco Antonio Don MD | | | | | | [address] | | | | | | [place] [address] | | | | | | [phone] | | | | | | | [...] Value Units Date/Time Culture, Body Fluid Sterile [[id number]] (Abnormal) (Susceptibility) Collected: 07/30/199 Order Status: Completed [...] MIXED ANAEROBIC DEEPA RESULT Testing performed at [facility], [address] [place] [address] Susceptibility Escherichia coli (1) Antibiotic Interpretation Microscan [...] Sensitive SUSCEPTIBLE ANDREW Final Testing performed at [facility], [address] [place] [address] MRSA NAAT [[id number]] Collected: 07/29/192256 Order Status: Completed Lab Status: Final result Updated: 07/30/193 Specimen: Tissue from Nares SOURCE: NARES(NOSE) Result NEGATIVE Comment: Testing performed at [facility];[address] [place] [address] Culture, Blood [[id number]] Collected: 07/29/192222 Order Status: Completed Lab Status: Final result Updated: 08/05/19605 Specimen: Peripheral Blood Special Requests RIGHT HAND Special Requests Testing performed at [facility];[address] [place] [address] RESULT NO GROWTH 6 DAYS RESULT Testing performed at [facility], [address] [place] [address] Comment: Testing performed at [facility], [address] [place] [address] Culture, Blood [[id number]] Collected: 07/29/192215 Order Status: Completed Lab Status: Final result Updated: 08/05/19605 Specimen: Peripheral Blood Special Requests LEFT AC Special Requests Testing performed at [facility];[address] [place] [address]29[address] RESULT NO GROWTH 6 DAYS RESULT Testing performed at [facility], [address] [place] [address] Comment: Testing performed at [facility], [address] [place] [address] Culture, Urine [[id number]] Collected: 07/29/192038 Order Status: Completed Lab Status: Final result Updated: 07/31/19 1140 Specimen: Urine, Clean Catch RESULT NO GROWTH RESULT Testing performed at [facility], [address] [place] [address] Comment: Testing performed at [facility], [address] [place] [address] 47377 Culture, Blood [[id number]] Collected: 07/29/192037 Order Status: Completed Lab Status: Final result Updated: 08/05/19605 Specimen: Peripheral Blood Special Requests LAC Special Requests Testing performed at [facility];[address] [place] [address]68 RESULT NO GROWTH 6 DAYS RESULT Testing performed at [facility], [address] [place] [address] Comment: Testing performed at [facility], [address] [place] [address] Culture, Blood [[id number]] Collected: 07/29/19 1910 Order Status: Canceled Lab Status: No result Specimen: Peripheral Blood Influenza A and B RNA, NAAT [[id number]] Collected: 07/29/19 1656 Order Status: Completed Lab Status: Final result Updated: 07/29/19 1724 Influenza A NEGATIVE Influenza B NEGATIVE Comment: Testing performed by [employer] Testing performed at [facility];[address] [place] [address];[place] [address] Flu Swab Collection [[id number]] Collected: 07/29/19 1630 Order Status: Completed Lab Status: Final result Updated: 07/29/19 1637 Specimen: Tissue from Nasopharynx Collection SPECIMEN RECEIVED IN LAB Comment: Testing performed at [facility];[address] [place] [address] 8[address]47 Recent Radiology Results Recent Results (from the [...] Mild facet arthropathy. Mild spinal canal stenosis. Psoh-zb-bxhickdd lateral recess stenosis. Mild bilateral neural foraminal stenosis. L4-5: The disc is preserved. Minimal disc bulge. Hemg-cy-gatrnnoq facet arthropathy. No significant spinal canal stenosis. Gadk-ho-phdmjfyg left and mild right neural foraminal stenosis. L5-S1: The disc is preserved. Minimal disc bulge. Moderate to severe facet arthropathy, left worse than right with left facet joint effusion and associated periarticular edema.. No significant spinal canal stenosis. Grif-fk-qkswnvca bilateral neural foraminal stenosis. Paraspinal musculature and paravertebral soft tissues: Normal. Impression 1. No substantial interval change. 2. No new disc herniation or high-grade stenosis. 3. Mild spinal canal stenosis at L2-3 and L3-4. 4. Multilevel wlno-il-bbhzfxtj neural foraminal stenosis. 5. Moderate to severe [...] up: Allison Fairchild NP [address] [facility] [address] [facility] [address] Schedule an appointment as soon as possible for a visit in 1 week Jamie Bentley MD [address] [facility] [facility] [address] [facility] [phone] Schedule an appointment as soon as possible for a visit in 1 week possible infected mesh Shannan Pastrana MD [address] [facility] [phone] Schedule an appointment as soon as possible [...] Bragg MD - 08/08/2019 6:04 PM PST [facility] Service: Hospitalist Progress Note Hospital Day: [...] Mild facet arthropathy. Mild spinal canal stenosis. Zplm-ab-ghjzvbks lateral recess stenosis. Mild bilateral neural foraminal stenosis. L4-5: The disc is preserved. Minimal disc bulge. Lzrb-qm-fdhbrfwj facet arthropathy. No significant spinal canal stenosis. Kqzo-jx-nmtnjjtk left and mild right neural foraminal stenosis. L5-S1: The disc is preserved. Minimal disc bulge. Moderate to severe facet arthropathy, left worse than right with left facet joint effusion and associated periarticular edema.. No significant spinal canal stenosis. Ktgw-jb-axkzuhte bilateral neural foraminal stenosis. Paraspinal musculature and paravertebral soft tissues: Normal. Impression 1. No substantial interval change. 2. No new disc herniation or high-grade stenosis. 3. Mild spinal canal stenosis at L2-3 and L3-4. 4. Multilevel nfjb-uw-umzpwlff neural foraminal stenosis. 5. Moderate to severe [...] Mild facet arthropathy. Mild spinal canal stenosis. Evmf-ld-avpyziuc lateral recess sten osis. Mild bilateral neural foraminal stenosis. L4-5: The disc is preserved. Minimal disc b ulge. Zbcw-mx-swlpbjjy facet arthropathy. No significant spinal canal stenosis. Mild-to-mo derate left and mild right neural foraminal stenosis. L5-S1: The disc is preserved. Minimal disc bulge. Moderate to severe facet arthropathy, left worse than right with left facet luis miguel nt effusion and associated periarticular edema.. No significant spinal canal stenosis. Mil l-ms-jrzpjtgm bilateral neural foraminal stenosis. Paraspinal musculature and paravertebral soft tissues: Normal. 1. No substantial interval change. 2. No new disc herniation or high-grade stenosis. 3. Mil d spinal canal stenosis at L2-3 and L3-4. 4. Multilevel dvju-pk-xxlumxev neural foraminal st enosis. 5. Moderate to [...] this note might be different from the [facility] Service: Infectious Diseases Progress Note Hospital [...] intact. Follows commands. LABS: MICRO Culture, Blood [[id number]] Collected: 07/29/192215 Order Status: Completed Specimen: Peripheral Blood Updated: 08/05/19605 Special Requests LEFT AC Special Requests Testing performed at [facility];[address] [place] [address] 395[address] RESULT NO GROWTH 6 DAYS RESULT Testing performed at [facility], [address] [place] [address] Comment: Testing performed at [facility], [address] [place] [address] Culture, Blood [[id number]] Collected: 07/29/192222 Order Status: Completed Specimen: Peripheral Blood Updated: 08/05/19605 Special Requests RIGHT HAND Special Requests Testing performed at [facility];[address] [place] [address] 81044 RESULT NO GROWTH 6 DAYS RESULT Testing performed at [facility], [address] [place] [address] Comment: Testing performed at [facility], [address] [place] [address] 60571 Culture, Blood [[id number]] Collected: 07/29/192037 Order Status: Completed Specimen: Peripheral Blood Updated: 08/05/19 0606 Special Requests LAC Special Requests Testing performed at [facility];[address] [place] [address] RESULT NO GROWTH 6 DAYS RESULT Testing performed at [facility], [address] [place] [address] 36647 Comment: Testing performed at [facility], [address] [place] [address] 06854 Culture, Blood [[id number]] Collected: 07/29/191909 Order Status: Canceled Specimen: Peripheral Blood Culture, Body Fluid Sterile [[id number]] (Abnormal) Collected: 07/30/19 112 Order Status: Completed Specimen: Body Fluid from Abscess Updated: 08/03/1938 Gram Stain Result -- 4+ WBC'S SEEN Gram Stain Result -- 1+ GRAM POSITIVE COCCI Gram Stain Result -- 3+ GRAM NEGATIVE RODS RESULT --Abnormal 2+ ESCHERICHIA COLI Abnormal RESULT -- 2+ MIXED GRAM POSITIVE DEEPA RESULT -- 2+ MIXED ANAEROBIC DEEPA RESULT Testing performed at [facility], [address] [place] [address]4026 Susceptibility Escherichia coli (1) Antibiotic Interpretation Vitek [...] Sensitive SUSCEPTIBLE ANDREW Final Testing performed at [address] [address] Culture, Urine [[id number]] Collected: 07/29/192038 Order Status: Completed Specimen: Urine, Clean Catch Updated: 07/31/19 1140 RESULT NO GROWTH RESULT Testing performed at [facility], [address] [place] [address] Comment: Testing performed at [facility], [address] [place] [address] Flu Swab Collection [[id number]] Collected: 07/29/19 1630 Order Status: Completed Specimen: Tissue from Nasopharynx Updated: 07/29/19 1637 Collection SPECIMEN RECEIVED IN LAB Comment: Testing performed at [facility];[address] [place] [address] 53569 Influenza A and B RNA, NAAT [[id number]] Collected: 07/29/19 1656 Order Status: Completed Updated: 07/29/19 1724 Influenza A NEGATIVE Influenza B NEGATIVE Comment: Testing performed by Molecular [facility] Testing performed at [facility];[address] [place] [address] 31361 MRSA NAAT [[id number]] Collected: 07/29/19 2257 Order Status: Completed Specimen: Tissue from Nares Updated: 07/30/19 0023 SOURCE: NARES(NOSE) Result NEGATIVE Comment: Testing performed at [facility];[address] [place] [address] 23427 All labs were reviewed.Data: Recent Results (from [...] under the care of Dr. Jamie Bentley, [facility] surgery -He had been previously under the care of Dr. Rd Busby, [facility] but he and his jenifer pinedo indicate wanting to continue Infectious Diseases under [facility] at this time -Patient is not septic -He has history of penicillin allergy; although anaphylaxis is listed as a reaction in ca s chart, he really does not know [...] outpatient in 2 wee ks. Dictation software, Queralt, used which may contain error for similar sounding words even af ter review. Personal communication requested for any clarification. Portions of this chart may have been copied from previous notes for continuity of care purp ose Shannan Pastrana MD Infectious Diseases 08/07/2019 an, Brittny blair MD - 08/07/2019 3:18 PM PSTFormatting of this note might be different from the origin [facility] Service: Hospitalist Progress Note Hospital Day: LOS: [...] Mild facet arthropathy. Mild spinal canal stenosis. Jvwr-cf-llycbpjh lateral recess stenosis. Mild bilateral neural foraminal stenosis. L4-5: The disc is preserved. Minimal disc bulge. Mbsy-mr-dhyimwfb facet arthropathy. No significant spinal canal stenosis. Sxcf-ku-pfmjnvos left and mild right neural foraminal stenosis. L5-S1: The disc is preserved. Minimal disc bulge. Moderate to severe facet arthropathy, left worse than right with left facet joint effusion and associated periarticular edema.. No significant spinal canal stenosis. Stfq-nz-ctkyyivv bilateral neural foraminal stenosis. Paraspinal musculature and paravertebral soft tissues: Normal. Impression 1. No substantial interval change. 2. No new disc herniation or high-grade stenosis. 3. Mild spinal canal stenosis at L2-3 and L3-4. 4. Multilevel uxyv-ot-cewnpiok neural foraminal stenosis. 5. Moderate to severe [...] 58 y.o. 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 -07/30/19:CT guided abscess drainage [...] plan was discussed with Dr. Diaz is fund controller for the acute care s urgery service. [...] HTN (hypertension), benign Signed: Shraddha Majano PA-C [facility] Trauma and Acute Care Surgery 08/07/2019 Portions [...] Farley MD - 08/06/2019 11:49 AM PST [facility] Service: Hospitalist Progress Note Hospital Day: [...] Elvi Farley MD - 3:07 PM PST [facility] Service: Hospitalist Progress Note Hospital Day: [...] they have no other real support in [place] where the y live. Teodora expresses deep katty that has gotten her through very difficult times. She is grateful for all the care and compassion form all the staff at [facility]. She sees blessings i n the midst [...] might be di fferent from the original. [facility] Service: Infectious Diseases Progress Note Hospital [...] LEFT AC Special Requests Testing performed at [facility];[address] [place] [address] 66750 RESULT NO GROWTH 6 DAYS RESULT Testing performed at [facility], [address] [place] [address] Comment: Testing performed at [facility], [address] [place] [address] 08078 Culture, Blood [[id number]] Collected: 07/29/192222 Order Status: Completed Specimen: Peripheral Blood Updated: 08/05/19605 Special Requests RIGHT HAND Special Requests Testing performed at [facility];[address] [place] [address] 37848 RESULT NO GROWTH 6 DAYS RESULT Testing performed at [facility], [address] [place] [address] 69749 Comment: Testing performed at [facility], [address] [place] [address] 43200 Culture, Blood [[id number]] Collected: 07/29/192037 Order Status: Completed Specimen: Peripheral Blood Updated: 08/05/19605 Special Requests LAC Special Requests Testing performed at [facility];[address] [place] [address] 10832 RESULT NO GROWTH 6 DAYS RESULT Testing performed at [facility], [address] [place] [address] 26200 Comment: Testing performed at [facility], [address] [place] [address] 22147 Culture, Blood [[id number]] Collected: 07/29/19 1910 Order Status: Canceled Specimen: Peripheral Blood Culture, Body Fluid Sterile [[id number]] (Abnormal) Collected: 07/30/19 1129 Order Status: Completed Specimen: Body Fluid from Abscess Updated: 08/03/19 0638 Gram Stain Result -- 4+ WBC'S SEEN Gram Stain Result -- 1+ GRAM POSITIVE COCCI Gram Stain Result -- 3+ GRAM NEGATIVE RODS RESULT --Abnormal 2+ ESCHERICHIA COLI Abnormal RESULT -- 2+ MIXED GRAM POSITIVE DEEPA RESULT -- 2+ MIXED ANAEROBIC DEEPA RESULT Testing performed at [facility], [address] [place] [address] 10043 Susceptibility Escherichia coli (1) Antibiotic Interpretation Vitek [...] Sensitive SUSCEPTIBLE ANDREW Final Testing performed at [facility], [address] [place] [address] 23735 Culture, Urine [[id number]] Collected: 07/29/192038 Order Status: Completed Specimen: Urine, Clean Catch Updated: 07/31/19 1140 RESULT NO GROWTH RESULT Testing performed at [facility], [address] [place] [address] 53708 Comment: Testing performed at [facility], [address] [place] [address] 26377 Flu Swab Collection [[id number]] Collected: 07/29/19 1630 Order Status: Completed Specimen: Tissue from Nasopharynx Updated: 07/29/19 1637 Collection SPECIMEN RECEIVED IN LAB Comment: Testing performed at [facility];[address] [place] [address] 17547 Influenza A and B RNA, NAAT [[id number]] Collected: 07/29/19 1656 Order Status: Completed Updated: 07/29/19 1724 Influenza A NEGATIVE Influenza B NEGATIVE Comment: Testing performed by [employer] [facility] Testing performed at [facility];[address] [place] [address] 64499 MRSA NAAT [[id number]] Collected: 07/29/19 2257 Order Status: Completed Specimen: Tissue from Nares Updated: 07/30/19 0023 SOURCE: NARES(NOSE) Result NEGATIVE Comment: Testing performed at [facility];[address] [place] [address];[place] [address] All labs were reviewed.Data: Recent Results (from [...] the c are of Dr. Jamie Bentley, [facility] surgery -He had been previously under the care of Dr. Rd Busby, [facility] but he and his travis thao indicate wanting to continue Infectious Diseases under [facility] at this time -Patient is not septic [...] planned. Will place PICC line. Dictation software, Queralt, used which may contain error for similar sounding words even af ter review. Personal communication requested for any clarification. Portions of this chart may have been copied from previous notes for continuity of care purp yun Pastrana MD Infectious Diseases 08/05/2019 Roderick Flores, CLIENT APPLICATION SUPPORT ENGINEER - 08/05/2019 8:30 AM PSTFormatting of this note might be different from the leidy ginal. Progress Note Hospital Day: LOS: 7 days Post-Op Day: * No surgery found * Subjective This is a 58 y.o. male patient who presented to [facility] with a diagn osis of abdominal wall infection. 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 His WBC continues to be stable at 7.27, he has been afebrile and hemodynamically stable. D enies to have cream looking drainage and gas in drainage back. 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 -07/30/19:CT guided abscess drainage [...] injury HTN (hypertension), benign Signed: BECKIE Mendenhall [facility] Trauma and Acute Care Surgery Portions of [...] Jennifer, MD - 08/04/2019 3:08 PM PST [facility] Service: Hospitalist Progress Note Hospital Day: [...] Bragg MD 08/04/2019 3:08 PM Harshad Flores, [facility] - 08/04/2019 10:00 AM PST Progress Note Hospital Day: LOS: 6 days Post-Op Day: * No surgery found * Subjective This is a 58 y.o. 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 -07/30/19: CT [...] was discussed with Dr. Valencia who is fund controller for the acute care surgery service. Scheduled [...] injury HTN (hypertension), benign Signed: Harshad [facility] Trauma and Acute Care Surgery Portions [...] might be different fr om the original. [facility] Service: Hospitalist Progress Note Hospital Day: [...] Funk MD - 08/03/2019 11:25 AM PST [facility] Service: Infectious Disease Progress Note Hospital [...] COCCI Gram Stain Result Testing performed at [facility];[address] [place] [address];[place] [address] RESULT Abnormal 2+ ESCHERICHIA COLI RESULT Abnormal 2+ STREPTOCOCCUS GORDONII RESULT Abnormal 2+ PREVOTELLA ORALIS Resulting Agency [facility] Suscept[facility] Escherichia coli ANDREW Ampicillin SUSCEPTIBLE Sensitive [...] Vancomycin SUSCEPTIBLE Sensitive1 1 Testing performed at [facility], [address] [place] [address] Specimen Collected: 07/04/19 19:30 Last Resulted: 07/09/19 [...] the c are of Dr. Jamie Bentley, [facility] surgery -He had been previously under the care of Dr. Rd Busby, [facility] but he and his travis thao indicate wanting to continue Infectious Diseases under [facility] at this time -Patient is not septic [...] Farley MD - 08/02/2019 2:31 PM PST [facility] Service: Hospitalist Progress Note Hospital Day: [...] unremarkable. Impression No significant abnormality. Signed by: Tervin Emery Gregory Sign Date/Time: 07/29/2019 4:50 PM [...] abdomen after the administration of 100 mL [id number] intravenous contrast. Mu ltiplanar reconstructions. At least [...] without difficulty. Three-way stopcock was placed and hotel staff member informed to flush twice daily with 10 [...] M D - 08/01/2019 12:04 PM PST [facility] Service: Infectious Disease Progress Note Hospital [...] COCCI Gram Stain Result Testing performed at [facility];[address] [place] [address]87 RESULT Abnormal 2+ ESCHERICHIA COLI RESULT Abnormal 2+ STREPTOCOCCUS GORDONII RESULT Abnormal 2+ PREVOTELLA ORALIS Resulting Agency [facility] Susceptibility Escherichia coli ANDREW Ampicillin SUSCEPTIBLE Sensitive [...] Vancomycin SUSCEPTIBLE Sensitive1 1 Testing performed at [facility], [address] [place] [address] Specimen Collected: 07/04/19 19:30 Last Resulted: 07/09/19 [...] the c are of Dr. Jamie Bentley, [facility] surgery -He had been previously under the care of Dr. Rd Busby, [facility] ID but he and his travis thao indicate wanting to continue Infectious Diseases under [facility] at this time -Patient is not septic [...] to inpt room 424-1 via stretcher by truck and transport mechanic. Electronically signed by ELLIE Mcdonald 07/30/2019 11:04 AM Farhan Ortega [facility] - 07/29/2019 8:08 PM PSTRx Admission Med ication History Note I have reviewed the medication history for appropriate doses obtained by: ED Pharmacist After reviewing the home medication list : I agree with the home medications list. Confirmed [employer]CR[employer] medications with patient and insurance fill history. Adjusted [employer]BER[employer] SECRETARY medications according to the solar maintenance technician note below. - removed omeprazole. Family [...] D?MRN: | | | | | | [id number] | | | [id number] | | | riteri | | | [...] | | | St. | | | [place] | | | y | | | [...] | | | St. | | | [place] | | | y | | | [...] | | | St. | | | [place] | | | y H. | | [...] | | | St. | | | [place] | | | y H. | | [...] | | | St. | | | [place] | | | y H. | | [...] | | | St. | | | [place] | | | y H. | | [...] | | | S, | | | FLATWORK WASHER-C | | | Nurse | | | [...] | | | | | performed at [facility], [address] | | | | | | [place], | | | | | | [place] [address] | | | | + + + + + + + + | Specimen | + + | Blood | + + + + + + + | Performing | Address | City/State/Zipcode | Phone Number | | Organization | | | | + + + + + | [facility] | [address] | [place] [address] | [phone] | + + + + + CBC [...] 0.09Comment: Testing | 0.00 - 0.10 | [facility] | | | Absolute | performed at [facility];[address] | [address] | LABORATORY | | | | [address];[place], [place] | | | | | | [address] | | | | + + + + + + + + | Specimen | + + | Blood | + + + + + + + | Performing | Address | City/State/Zipcode | Phone Number | | Organization | | | | + + + + + | [facility] | [address] | [place] [address] | [phone] | + + + + + CBC [...] | | | Absolute | performed at [facility], [address] | [address] | LABORATORY | | | | [address], | | | | | | [place] [address] | | | | + + + + + + + + | Specimen | + + | Blood | + + + + + + + | Performing | Address | City/State/Zipcode | Phone Number | | Organization | | | | + + + + + | [facility] | [address] | [place] [address] | [phone] | + + + + + Basic [...] | | | | | performed at [facility], [address] | | | | | | [address] [facility], | | | | | | [place] [address] | | | | + + + + + + + + | Specimen | + + | Blood | + + + + + + + | Performing | Address | City/State/Zipcode | Phone Number | | Organization | | | | + + + + + | [facility] | [address] | [place] [address] | [phone] | + + + + + MRI [...] and L3-4. | | | 4. Multilevel gwgg-zz-trkalgkk neural foraminal stenosis. 5. | | | [...] | | | Mild spinal canal stenosis. Tdzo-fy-caxkwvnp lateral recess | | | stenosis. Mild bilateral neural foraminal stenosis. L4-5: The | | | disc is preserved. Minimal disc bulge. Nzag-gy-geqcscsj facet | | | arthropathy. No significant spinal canal stenosis. Hsbz-cy-fckwirsr | | | left and mild right neural foraminal stenosis. L5-S1: The disc is | | | preserved. Minimal disc bulge. Moderate to severe facet | | | arthropathy, left worse than right with left facet joint effusion and | | | associated periarticular edema.. No significant spinal canal | | | stenosis. Oupy-rj-yyjunrdb bilateral neural foraminal stenosis. | | | [...] arthropathy. Mild spinal canal stenosis. | | Wzne-ed-kqfjrady lateral recess stenosis. Mild bilateral neural | | foraminal stenosis. | | | | L4-5: The disc is preserved. Minimal disc bulge. Joyc-zu-jivjfljx | | facet arthropathy. No significant spinal canal stenosis. | | Jzqy-si-kkcdztoe left and mild right neural foraminal stenosis. | | | | L5-S1: The disc is preserved. Minimal disc bulge. Moderate to severe | | facet arthropathy, left worse than right with left facet joint effusion | | and associated periarticular edema.. No significant spinal canal | | stenosis. Llnb-gi-pbhogmnm bilateral neural foraminal stenosis. | | | | Paraspinal musculature and paravertebral soft tissues: Normal. | | | | IMPRESSION: | | 1. No substantial interval change. | | 2. No new disc herniation or high-grade stenosis. | | 3. Mild spinal canal stenosis at L2-3 and L3-4. | | 4. Multilevel qeox-rw-edhpltuj neural foraminal stenosis. | | 5. Moderate [...] Testing | 1.7 - 2.4 mg/dL | [facility] | | | | performed at [facility], [address] | | LABORATORY | | | | [place], | | | | | | [place] [address] | | | | + + + + + + + + | Specimen | + + | Blood | + + + + + + + | Performing | Address | City/State/Zipcode | Phone Number | | Organization | | | | + + + + + | [facility] | [address] | [place] [address] | [phone] | + + + + + CBC [...] | | | Absolute | performed at [facility], [address] | [address] | LABORATORY | | | | [place], | | | | | | [place] [address] | | | | + + + + + + + + | Specimen | + + | Blood | + + + + + + + | Performing | Address | City/State/Zipcode | Phone Number | | Organization | | | | + + + + + | [facility] | [address] | [place] [address] | [phone] | + + + + + Basic [...] | | | | | | [facility] traceable | | | | | | equation.Testing | | | | | | performed at [facility], [address] | | | | | | [place], | | | | | | [place] [address] | | | | + + + + + + + + | Specimen | + + | Blood | + + + + + + + | Performing | Address | City/State/Zipcode | Phone Number | | Organization | | | | + + + + + | [facility] | [address] | [place] [address] | [phone] | + + + + + Basic [...] >60Comment: GFR <60: | >60 | [facility] | | | GFR | [...] | | | | | | [facility]D [facility] traceable | | | | | | equation.Testing | | | | | | performed at [facility], [address] | | | | | | [place], | | | | | | [place] [address] | | | | + + + + + + + + | Specimen | + + | Blood | + + + + + + + | Performing | Address | City/State/Zipcode | Phone Number | | Organization | | | | + + + + + | [facility] | [address] | [place] [address] | [phone] | + + + + + CBC [...] | | | Absolute | performed at [facility], [address] | [address] | LABORATORY | | | | [place], | | | | | | [place] [address] | | | | + + + + + + + + | Specimen | + + | Blood | + + + + + + + | Performing | Address | City/State/Zipcode | Phone Number | | Organization | | | | + + + + + | [facility] | [address] | [place] [address] | [phone] | + + + + + Basic [...] >60Comment: GFR <60: | >60 | [facility] | | | GFR | [...] | | | | | | MDRD [facility] traceable | | | | | | equation.Testing | | | | | | performed at [facility], [address] | | | | | | [place], | | | | | | [place] [address] | | | | + + + + + + + + | Specimen | + + | Blood | + + + + + + + | Performing | Address | City/State/Zipcode | Phone Number | | Organization | | | | + + + + + | [facility] | [address] | [place] [address] | [phone] | + + + + + CBC [...] | | | Absolute | performed at [facility], [address] | [address] | LABORATORY | | | | [place], | | | | | | [place] [address] | | | | + + + + + + + + | Specimen | + + | Blood | + + + + + + + | Performing | Address | City/State/Zipcode | Phone Number | | Organization | | | | + + + + + | [facility] | [address] | [place] [address] | [phone] | + + + + + Comprehensive [...] | | | | | performed at [facility], [address] | | | | | | [place] [address], | | | | | | [place] [address] | | | | + + + + + + + + | Specimen | + + | Blood | + + + + + + + | Performing | Address | City/State/Zipcode | Phone Number | | Organization | | | | + + + + + | [facility] | [address] | [place] [address] | [phone] | + + + + + CBC [...] | | | | | [place] [address] | | | | + + + + + + + + | Specimen | + + | Blood | + + + + + + + | Performing | Address | City/State/Zipcode | Phone Number | | Organization | | | | + + + + + | [facility] | [address] | [place] [address] | [phone] | + + + + + Magnesium (08/04/2019 4:35 AM PST) + + + + + + | Component | Value | Ref Range | Performed | Pathologist | | | | | At | Signature | + + + + + + | Magnesium | 2.0Comment: Testing | 1.7 - 2.4 mg/dL | [facility] | | | | performed at [facility], [address] | | LABORATORY | | | | [place], | | | | | | [place] [address] | | | | + + + + + + + + | Specimen | + + | Blood | + + + + + + + | Performing | Address | City/State/Zipcode | Phone Number | | Organization | | | | + + + + + | [facility] | [address] | [place] [address] | [phone] | + + + + + Comprehensive [...] | | | | | performed at [facility], [address] | | | | | | [address] [facility], | | | | | | [place] [address] | | | | + + + + + + + + | Specimen | + + | Blood | + + + + + + + | Performing | Address | City/State/Zipcode | Phone Number | | Organization | | | | + + + + + | [facility] | [address] | [place] [address] | [phone] | + + + + + CBC [...] 0.10Comment: Testing | 0.00 - 0.10 | [facility] | | | Absolute | performed at [facility], [address] | [address] | LABORATORY | | | | [address], | | | | | | [place] [address] | | | | + + + + + + + + | Specimen | + + | Blood | + + + + + + + | Performing | Address | City/State/Zipcode | Phone Number | | Organization | | | | + + + + + | [facility] | [address] | [place] [address] | [phone] | + + + + + CT [...] Testing | 2.3 - 4.8 mg/dL | [facility] | | | | performed at [facility] | | LABORATORY | | | | [address] [facility];[place], [place] | | | | | | [address] | | | | + + + + + + + + | Specimen | + + | Blood | + + + + + + + | Performing | Address | City/State/Zipcode | Phone Number | | Organization | | | | + + + + + | [facility] | [address] | [place] [address] | [phone] | + + + + + Magnesium (08/02/2019 4:46 AM PST) + + + + + + | Component | Value | Ref Range | Performed | Pathologist | | | | | At | Signature | + + + + + + | Magnesium | 1.7Comment: Testing | 1.7 - 2.4 mg/dL | [facility] | | | | performed at [facility];[address] | | LABORATORY | | | | [address];[place] | | | | | | [address] | | | | + + + + + + + + | Specimen | + + | Blood | + + + + + + + | Performing | Address | City/State/Zipcode | Phone Number | | Organization | | | | + + + + + | [facility] | [address] | [place] [address] | [phone] | + + + + + Basic [...] 8.4 (L) | 8.5 - 10.5 | [facility] | | | | | mg/dL | LABORATORY | | + + + + + + | Estimated | >60Comment: GFR <60: | >60 | [facility] | | | GFR | [...] | | | | | | [facility] traceable | | | | | | equation.Testing | | | | | | performed at [facility] | | | | | | [facility];[place], [place] | | | | | | [address] | | | | + + + + + + + + | Specimen | + + | Blood | + + + + + + + | Performing | Address | City/State/Zipcode | Phone Number | | Organization | | | | + + + + + | [facility] | [address] | [place] [address] | [phone] | + + + + + CBC [...] | | | Absolute | performed at [facility];[address] | [address] | LABORATORY | | | | [address];[place], [place] | | | | | | [address] | | | | + + + + + + + + | Specimen | + + | Blood | + + + + + + + | Performing | Address | City/State/Zipcode | Phone Number | | Organization | | | | + + + + + | [facility] | [address] | [place] [address] | [phone] | + + + + + Basic [...] >60Comment: GFR <60: | >60 | [facility] | | | GFR | [...] | | | | | | [facility] traceable | | | | | | equation.Testing | | | | | | performed at [facility], [address] | | | | | | [place], | | | | | | [place] [address] | | | | + + + + + + + + | Specimen | + + | Blood | + + + + + + + | Performing | Address | City/State/Zipcode | Phone Number | | Organization | | | | + + + + + | [facility] | [address] | [place] [address] | [phone] | + + + + + CBC [...] | | | Absolute | performed at [facility], [address] | [address] | LABORATORY | | | | [facility] [place], | | | | | | [place] [address] | | | | + + + + + + + + | Specimen | + + | Blood | + + + + + + + | Performing | Address | City/State/Zipcode | Phone Number | | Organization | | | | + + + + + | [facility] | [address] | [place] [address] | [phone] | + + + + + Basic [...] >60Comment: GFR <60: | >60 | [facility] | | | GFR | [...] | | | | | | MDRD [facility] traceable | | | | | | equation.Testing | | | | | | performed at [facility], [address] | | | | | | [place], | | | | | | [place] [address] | | | | + + + + + + + + | Specimen | + + | Blood | + + + + + + + | Performing | Address | City/State/Zipcode | Phone Number | | Organization | | | | + + + + + | [facility] | [address] | [place] [address] | [phone] | + + + + + CBC [...] | | | Absolute | performed at [facility], [address] | [address] | LABORATORY | | | | [place], | | | | | | [place] [address] | | | | + + + + + + + + | Specimen | + + | Blood | + + + + + + + | Performing | Address | City/State/Zipcode | Phone Number | | Organization | | | | + + + + + | [facility] | [address] | [place] [address] | [phone] | + + + + + Culture, [...] | LABORATORY | | | | Blvd, [place], [place] | | | | | | [address] | | | | + + + [...] Comment: Testing | | | performed at [facility], | | | [address] [facility] | | | [place] | | | [address] | +---+ + + + + + + | Performing | Address | City/State/Zipcode | Phone Number | | Organization | | | | + + + + + | [facility] | [address] | [place] [address] | [phone] | + + + + + CT [...] and culture. A | | | 12 Bulgarian locking pigtail catheter was placed. Signed by: [...] collection and the tract dilated. A 12 Bulgarian locking pigtail | | | catheter is [...] collection and the tract dilated. A 12 Bulgarian locking pigtail | | catheter is then [...] stain and culture. A 12 | | Bulgarian locking pigtail catheter was placed. | | [...] | | | Absolute | performed at [facility];[address] | [address] | LABORATORY | | | | [address];[place] | | | | | | [address] | | | | + + + + + + + + | Specimen | + + | | + + + + + + + | Performing | Address | City/State/Zipcode | Phone Number | | Organization | | | | + + + + + | [facility] | [address] | [place] [address] | [phone] | + + + + + PTT (07/30/2019 4:37 AM PST) + + + + + + | Component | Value | Ref Range | Performed | Pathologist | | | | | At | Signature | + + + + + + | PTT | 20 (L)Comment: Testing | 23 - 32 seconds | [facility] | | | | performed at [facility];[address] | | LABORATORY | | | | [address];[place] | | | | | | [address] | | | | + + + + + + + + | Specimen | + + | Blood | + + + + + + + | Performing | Address | City/State/Zipcode | Phone Number | | Organization | | | | + + + + + | [facility] | [address] | [place] [address] | [phone] | + + + + + Protime [...] | | | | | performed at [facility] | | | | | | [address] [facility];[place], [place] | | | | | | [address] | | | | + + + + + + + + | Specimen | + + | Blood | + + + + + + + | Performing | Address | City/State/Zipcode | Phone Number | | Organization | | | | + + + + + | [facility] | [address] | [place] [address] | [phone] | + + + + + Comprehensive [...] >60Comment: GFR <60: | >60 | [facility] | | | GFR | [...] | | | | | | MDRD [facility] traceable | | | | | | equation.Testing | | | | | | performed at [facility], [address] | | | | | | [place], | | | | | | [place] [address] | | | | + + + + + + + + | Specimen | + + | Blood | + + + + + + + | Performing | Address | City/State/Zipcode | Phone Number | | Organization | | | | + + + + + | [facility] | [address] | [place] [address] | [phone] | + + + + + Lactic Acid (07/30/2019 12:54 AM PST) + + + + + + | Component | Value | Ref Range | Performed | Pathologist | | | | | At | Signature | + + + + + + | Lactate, | 1.1Comment: Testing | 0.4 - 2.0 | [facility] | | | Serum | performed at [facility];[address] | mmol/L | LABORATORY | | | | [address];[place] | | | | | | [address] | | | | + + + + + + + + | Specimen | + + | Blood | + + + + + + + | Performing | Address | City/State/Zipcode | Phone Number | | Organization | | | | + + + + + | [facility] | [address] | [place] [address] | [phone] | + + + + + MRSA [...] [facility] | | | | performed at [facility];[address] | | LABORATORY | | | | [address];[place], [place] | | | | | | [address] | | | | + + + + + + + + | Specimen | + + | Tissue - Both | | anterior nares (body | | structure) | + + + + + + + | Performing | Address | City/State/Zipcode | Phone Number | | Organization | | | | + + + + + | [facility] | [address] | [place] [address] | [phone] | + + + + + Culture, [...] | [facility] | | | Requests | [facility];[address] | | LABORATORY | | | | [address];[place] [address] | | | | + + + + + + | RESULT | NO GROWTH 6 DAYS | | [facility] | | | | | | LABORATORY | | + + + + + + | RESULT | Testing performed at | | [facility] | | | | [facility], [address] | | LABORATORY | | | | [place] | | | | | | [address]Oiocoif: Testing | | | | | | performed at [facility], [address] | | | | | | [address] [place] | | | | | | [address] | | | | + + + + + + + + | Specimen | + + | Blood - Peripheral | | blood specimen | | (specimen) | + + + + + + + | Performing | Address | City/State/Zipcode | Phone Number | | Organization | | | | + + + + + | [facility] | [address] | [place] [address] | [phone] | + + + + + Lactic Acid (07/29/2019 10:16 PM PST) + + + + + + | Component | Value | Ref Range | Performed | Pathologist | | | | | At | Signature | + + + + + + | Lactate, | 1.3Comment: Testing | 0.4 - 2.0 | [facility] | | | Serum | performed at [facility];[address] | mmol/L | LABORATORY | | | | [address];[place] | | | | | | [address] | | | | + + + + + + + + | Specimen | + + | Blood | + + + + + + + | Performing | Address | City/State/Zipcode | Phone Number | | Organization | | | | + + + + + | [facility] | [address] | [place] [address] | [phone] | + + + + + Culture, [...] Special | Testing performed at | | [facility] | | | Requests | [facility];[address] | | LABORATORY | | | | [address];[place] [address] | | | | + + + + + + | RESULT | NO GROWTH 6 DAYS | | [facility] | | | | | | [facility]AT[facility] | | + + + + + + | RESULT | Testing performed at | | [facility] | | | | [facility], [address] [facility] | | LABORATORY | | | | [place] | | | | | | [address]Zmzhgle: Testing | | | | | | performed at [facility], [address] | | | | | | [place] | | | | | | [address] | | | | + + + + + + + + | Specimen | + + | Blood - Peripheral | | blood specimen | | (specimen) | + + + + + + + | Performing | Address | City/State/Zipcode | Phone Number | | Organization | | | | + + + + + | [facility] | [address] | [place] [address] | [phone] | + + + + + Culture, [...] RESULT | Testing performed at | | [facility] | | | | [facility], [address] [facility] | | LABORATORY | | | | [address], [place], [place] | | | | | | [address]Vfivlzk: Testing | | | | | | performed at [facility], [address] | | | | | | [place], | | | | | | [place] [address] | | | | + + + [...] [facility] | [address] | [place] [address] | [phone] | + + + + + Urinalysis [...] - 1.030 | [facility] | | | [place], | | | LABORATORY | | | [...] | | LABORATORY | | | | [facility];[address] [facility] | | | | | | [facility];[place] [address] | | | | + + + [...] + + + + + | [facility] | [address] | [place] [address] | [phone] | + + + + + Culture, [...] | | LABORATORY | | | | Blvd;[place] [address] | | | | + + + + + + | RESULT | NO GROWTH 6 DAYS | | [facility] | | | | | | LABORATORY | | + + + + + + | RESULT | Testing performed at | | [facility] | | | | [facility], [address] [facility] | | LABORATORY | | | | [place], [place] | | | | | | [address]Hfmvltf: Testing | | | | | | performed at [facility], [address] | | | | | | [place], [place] | | | | | | [address] | | | | + + + + + + + + | Specimen | + + | Blood - Peripheral | | blood specimen | | (specimen) | + + + + + + + | Performing | Address | City/State/Zipcode | Phone Number | | Organization | | | | + + + + + | [facility] | [address] | [place] [address] | [phone] | + + + + + CT [...] | | | | | performed at [facility] | | | | | | [address];[place], [place] | | | | | | [address] | | | | + + + + + + + + | Specimen | + + | | + + + + + + + | Performing | Address | City/State/Zipcode | Phone Number | | Organization | | | | + + + + + | [facility] | [address] | [place] [address] | [phone] | + + + + + XR [...] Collection | SPECIMEN RECEIVED IN | | [facility] | | | | LABComment: Testing | | LABORATORY | | | | performed at [facility];8 | | | | | | [facility];[place], [place] | | | | | | [address] | | | | + + + + + + + + | Specimen | + + | Tissue - Entire | | nasopharynx (body | | structure) | + + + + + + + | Performing | Address | City/State/Zipcode | Phone Number | | Organization | | | | + + + + + | [facility] | [address] | [place] [address] | [phone] | + + + + + C-Reactive Protein (07/29/2019 4:30 PM PST) + + + + + + | Component | Value | Ref Range | Performed | Pathologist | | | | | At | Signature | + + + + + + | CRP | 8.1 (H)Comment: Testing | <0.5 mg/dL | [facility] | | | | performed at [facility];[address] | LABORATORY | | | | [address];[place], [place] | | | | | | [address] | | | | + + + + + + + + | Specimen | + + | Blood | + + + + + + + | Performing | Address | City/State/Zipcode | Phone Number | | Organization | | | | + + + + + | [facility] | [address] | [place] [address] | [phone] | + + + + + Lipase (07/29/2019 4:30 PM PST) + + + + + + | Component | Value | Ref Range | Performed | Pathologist | | | | | At | Signature | + + + + + + | Lipase | 26Comment: Testing | 12 - 53 U/L | ZAHIDA | | | | performed at [facility];8 | | LABORATORY | | | | [address];[place] | | | | | | [address] | | | | + + + + + + + + | Specimen | + + | Blood | + + + + + + + | Performing | Address | City/State/Zipcode | Phone Number | | Organization | | | | + + + + + | [facility] | [address] | [place] [address] | [phone] | + + + + + Comprehensive [...] | | | | | performed at [facility] | | | | | | [facility];[place], [place] | | | | | | [address] | | | | + + + + + + + + | Specimen | + + | Blood | + + + + + + + | Performing | Address | City/State/Zipcode | Phone Number | | Organization | | | | + + + + + | [facility] | [address] | [place] [address] | [phone] | + + + + + CBC [...] | | | Absolute | performed at [facility];888 | K/uL | LABORATORY | | | | [address];[place] | | | | | | [address] | | | | + + + + + + + + | Specimen | + + | Blood | + + + + + + + | Performing | Address | City/State/Zipcode | Phone Number | | Organization | | | | + + + + + | [facility] | [address] | [place] [address] | [phone] | + + + + + documented [...] PM PST | | | | | [facility] 07/29/19 at 2230 | | | | [...]
--- OUTSIDE RECORDS SUMMARY | ~2020-01-31 | XMS | Encounter Summary ---
Demographics + + + | Address | [address] | | | [place] [address] | + + + | Home Phone [...] | Author | [facility] | | | and [place] | + + + | Organization | [facility] | | | and [place] | [...] [place] | | | | | [address] | | + + + + + Care Team Providers + +------+ + | Care Enrober Tender Name | Role | Phone | [...] + + | 08/25/ | Documentati | [facility] | Shannan Pastrana | Results | | 2019 | on | INFECTIOUS DISEASE | Deidre Jean MD | ([facility]--CMP, | | | | [address] | [address] | CRP, CBC, ESR) | | | | [place], [place] | [place] [address] | | | | | [address] | [phone] | | | | | [phone] | | | +--------+ + + + [...]
--- OUTSIDE RECORDS SUMMARY | ~2020-01-31 | XMS | Encounter Summary ---
Demographics + + + | Address | [address] | | | [place] [address] | + + + | Home Phone [...] | Author | [facility] | | | and [place] | + + + | Organization | [facility] | | | and [place] [...] [place] | | | | | [address] | | + + + + + Care Team Providers + +------+ + | Care Motion Picture Equipment Supervisor Name | Role | Phone | [...] + + | 10/11/ | Telephone | [facility] | Anival Stevenson MD | Results | | 2020 | | GENERAL SURGERY [address] | [address] | | | | | [address] | [address] [place], [place] | | | | | [place], [place] | [address] | | | | | [address] | | | | | | [phone] | | | +--------+ + + + [...]
--- OUTSIDE RECORDS SUMMARY | ~2020-01-31 | XMS | Encounter Summary ---
Demographics + + + | Address | [address] | | | [place] [address] | + + + | Home Phone | | + + + | Preferred Language | Unknown | + + + | Marital Status | | + + + | Zoroastrian Affiliation | 1013 | + + + | Race | Unknown | + + + | Ethnic Group | Unknown | + + + Author + + + | Author | [facility] | | | and [place] | + + + | Organization | [facility] | | | [...] [place] | | | | | [address] | | + + + + + Care Team Providers + +------+ + | Care Map Maker Name | Role | Phone | + [...] | | | | | | | NM | | | | | | | ANESTHESIA | | | | | | | UPPER GI | | | | | | | ENDOSCOPIC | | | | | | | PX ERCP NM | | | | | | | [...] Description | +--------+---------+ + + + | 02/12/ | Surgery | [facility] | Dc Naik MD | ERCP | | 2018 | | [facility] | [address], [place] | | | | | [address] | [address] [place], [place] | | | | | [place], [place] | [address] | | | | | [address] | | | | | | [phone] | | | +--------+---------+ + + + [...] + + + | Blood Pressure | 129/79 | 02/12/2018 11:45 AM | | | | | PDT | | + + + + + | Pulse | 71 | 02/12/2018 11:45 AM | | | | | PDT | | + + + + + | Temperature | 36.8 C (98.2 F) | 02/12/2018 11:40 AM | | | | | PDT | | + + + + + | Respiratory Rate | 18 | 02/12/2018 9:55 AM | | | | | PDT | | + + + + + | Oxygen Saturation | 99% | 02/12/2018 11:45 AM | | | | | PDT | | + + + + + | Inhaled Oxygen | - | - | | | Concentration | | | | + + + + + | Weight | 94 kg (207 lb 3.7 | 02/12/2018 9:55 AM | | | | oz) | PDT | | + + + + + | Height | 180.3 cm (5' 11") | 02/12/2018 9:55 AM | | | | | PDT | | + + + + + | Body Mass Index | 28.9 | 02/12/2018 9:55 AM | | | | | PDT | | + + + + + documented in this encounter Discharge Instructions Instructions Shayna Mena, ELLIE - 02/12/2018 Recovery After Procedural Sedation (Adult) You have been given medicine by vein to make you sleep during your surgery. This may have i ncluded both a pain medicine and sleeping medicine. Most of the effects have worn off. But y ou may still have some drowsiness for the next 6 to 8 hours. Home care Follow these guidelines when you get home: For the next 8 hours, you should be watched by a responsible adult. This person should m lucy sure your condition is not getting worse. Don't drink any alcoholfor the next [address], operate dangerous machinery, or make important business or personal decisio nsduring the next 24 hours. Note: Your healthcare provider may tell you not to take any medicine by mouth for pain or s leep in the next 4 hours. These medicines may react with the medicines you were given in the hospital. This could cause a much stronger response than usual. Follow-up care Follow up with your healthcare provider if you are not alert and back to your usual level o f activity within 12 hours. When to seek medical advice Call your healthcare provider right away if any of these occur: Drowsiness gets worse Weakness or dizziness gets worse Repeated vomiting You can't be awakened Date Last Reviewed: 06/24/201619997394-7898 [employer]. [address] [address]. All righ ts reserved. This information is [...] + + + | ERCP | | 02/12/2018 | Abnormal abdominal | | | | | 11:14 AM | CT scan (R93.5), | | | | | PDT | Common bile duct | | | | | | stone (K80.50) | | | | | | F13.20 benzo use | | | | | | F11.20 opioid use | | + +--------+ + + + | ERCP | Routin | 02/12/2018 | | Results for this | | | e | 11:06 AM | | procedure are in the [...] | | + +---------+ + + ERCP (02/12/2018 11:06 AM PDT) + + | Specimen | + + | | + + + + -+ | Narrative | Performed At | + + -+ | | [facility] | | GastroenterologyPatient Name: Reza Xiong Date: 02/12/2018 | [facility] | | 11:06 AMMRN: [id number] #: [id number] of : | | | 1960Admit Type: AmbulatoryAge: 57Room: [facility] 01Gender: MaleNote | | | Status: FinalizedAttending MD: MARIAMA Guardadorocedure: | | | ERCPIndications: Biliary stent removalProviders: | | | Dc Naik MD, Perla Ponce RN, Caroline Rutledge | | | ELLIE Beltran, Shyam Peña MD (Anesthesia | | | Staff)Referring MD: Allison Fairchild NP (Referring | | | MD)Medicines: Propofol per AnesthesiaComplications: | | | No immediate complications. Estimated blood loss: NoneProcedure: | | [...] | | | the anesthesiologist and the pc technician in the endoscopy suite. | | | Mental Status Examination: alert and oriented. Airway | | | Examination: normal oropharyngeal airway and neck mobility and | | | Mallampati Class II (the uvula but not tonsillar pillars | | | visualized). Respiratory Examination: clear to auscultation. CV | | | Examination: normal. Prophylactic Antibiotics: The patient | | | does not require prophylactic antibiotics. Prior | | | Anticoagulants: The patient has taken Eliquis (apixaban), last dose | | | was 2 days prior to procedure. ASA Grade Assessment: III - A | | | patient with severe systemic disease. After reviewing the risks | | | and benefits, the patient was deemed in satisfactory condition | | | to undergo the procedure. The anesthesia plan was to use | | | monitored anesthesia care (MAC). Immediately prior to | | | administration of medications, the patient was re-assessed for | | | adequacy to receive sedatives. The heart rate, respiratory | | | rate, oxygen saturations, blood pressure, adequacy of pulmonary | | | ventilation, and response to care were monitored throughout | | | the procedure. The physical status of the patient was re-assessed | | | after the procedure. - Using IV propofol under the | | | supervision of an anesthesiologist was determined to [...] the procedure well.Findings: | | | The scope was passed through the upper GI tract without discovering | | | UGI findings. One temporary stent originating in the biliary | | | tree was emerging from the major papilla. One stent was removed | | | from the biliary tree using a snare. The bile duct was deeply | | | cannulated with the tapered-tip cannula. Contrast was injected. | | | I personally interpreted the bile duct images. There was brisk | | | flow of contrast through the ducts. The main bile duct was | | | normal.Impression: - One stent from the biliary tree was seen in | | | the major papilla. - One stent was removed from the biliary | | | tree.Recommendation: - Discharge patient to home (ambulatory). | | | - Resume previous diet today. - Continue present | | | medications. - Observe patient's clinical course. - The | | | patient should not require a repeat ERCP. - Telephone GI clinic | | | if symptomatic.Dc Naik MD02/12/2018 11:41:05 AMThis report has | | | been signed electronically.Number of Addenda: 0Note Initiated On: | | | 02/12/2018 11:06 AMTotal Procedure Duration: 0 hours 4 minutes 7 seconds | | | Scope In: 11:27:31 AMScope Out: 11:31:38 AM [facility] | | | [facility], [address] [place] [address] | | | [phone] | | | - Discharge patient to home (ambulatory). | | | - Resume previous diet today. | | | - Continue present medications. | | | - Observe patient's clinical course. | | | - The patient should not require a repeat ERCP. | | | - Telephone GI clinic if symptomatic. | | |Dc Naik MD | | |02/12/2018 11:41:05 AM | | |This report has been signed electronically. | | |Number of Addenda: 0 | | |Note Initiated On: 02/12/2018 11:06 AM | | |Total Procedure Duration: 0 hours 4 minutes 7 seconds | | |Scope In: 11:27:31 AM | | |Scope Out: 11:31:38 AM | | | [facility], [address] [place] [address] | | | [address] | | + + -+ + +---------+ + + | Performing | Address | City/State/Zipcode | Phone Number | | Organization | | | | + +---------+ + + | [facility] | | | | + +---------+ + + documented in this encounter Visit Diagnoses Not on filedocumented in this encounter Administered Medications + +--------+---------+------+------+------+ | Medication Order | MAR | Action | Dose | Rate | Site | | | Action | Date | | | | + +--------+---------+------+------+------+ + +---+ | albuterol 2.5 mg/3 mL nebulizer | | | solution 2.5 mg 2.5 mg, | | | Nebulization, ONCE PRN, Wheezing, | | | Starting Thu02/12/18 at 1143, For | | | 1 dose, Notify anesthesia if | | | patient is wheezing and does not | | | have a history of asthma or COPD | | | or current smoking., | | | Post-op/Phase II | | + +---+ | | | + +---+ | albuterol-ipratropium (DUONEB) | | | 2.5-0.5 mg/3 mL nebulizer | | | solution 3 mL 3 mL, | | | Nebulization, ONCE PRN, Wheezing, | | | Starting Thu02/12/18 at 1038, For | | | 1 dose, Pre-op | | + +---+ | | | + +---+ | albuterol-ipratropium (DUONEB) | | | 2.5-0.5 mg/3 mL nebulizer | | | solution 3 mL 3 mL, | | | Nebulization, ONCE PRN, Wheezing, | | | Shortness of Breath, Starting | | | 02/12/18 at 1143, For 1 dose, | | | Post-op/Phase II | | [...] glucose < 50, | | | Starting Thu02/12/18 at 1038, | | | Repeat in 15 min if blood glucose | | | remains < 70 mg/dL. Repeat | | | blood glucose in 30 min once | | | blood glucose > 70., Pre-op | | + +---+ | | | + +---+ + +---------+ +---+-------+---+ | lactated ringers (LR) infusion | New Bag | 02/13/20 | | 100 | | | at 100 mL/hr, Intravenous, | | 18 10:49 | | mL/hr | | | CONTINUOUS, Starting Thu02/12/18 | | AM PDT | | | | | at 1100, Pre-op | | | | | | + +---------+ +---+-------+---+ + +---+ | | | + +---+ | lactated ringers (LR) infusion | | | at 10-100 mL/hr, Intravenous, | | | CONTINUOUS, Starting Thu02/12/18 | | | at 1100, TKO. Use this instead of | | | NS unless dialysis patient., | | | Pre-op | | + +---+ | | | + +---+ | ondansetron (ZOFRAN) injection | | | 4 mg 4 mg, Oral, EVERY 4 HOURS | | | PRN, Nausea, Vomiting, Starting | | | Thu02/12/18 at 1143, | | | Recovery/Phase I | | + +---+ | | | + +---+ | ondansetron (ZOFRAN) injection | | | 4 mg 4 mg, Intravenous, ONCE | | | PRN, Nausea, Starting Thu02/12/18 | | | at 1038, For 1 dose, Pre-op | | + +---+ | | | + +---+ | ondansetron (ZOFRAN) injection | | | 4 mg 4 mg, Intravenous, ONCE | | | PRN, Nausea, Starting Thu02/12/18 | | | at 1143, For 1 dose, | | | Post-op/Phase II | | + +---+ | | | + +---+ | scopolamine (TRANSDERM-SCOP) 1 | | | mg/3 days 1 patch 1 patch, | | | Transdermal, PRN, adult patients | | | with history of PONV, Starting | | | Thu02/12/18 at 1038, For 1 dose, | | | PRN for adult patients <65 yo | | | with history of PONV. Hold for | | | patients with glaucoma, dementia, | | | altered mental status, or | | | history of allergy to | | | Scopolamine. Apply to mastoid | | | process behind ear., Pre-op | | + +---+ | | | + +---+ | sodium chloride 0.9% (NS) | | | infusion at 10-100 mL/hr, | | | Intravenous, CONTINUOUS, Starting | | | Thu02/12/18 at 1100, TKO. Use | | | this instead of LR if patient is | | | on dialysis., Pre-op | | + +---+ | | | + +---+ documented in this encounter
--- OUTSIDE RECORDS SUMMARY | ~2020-01-31 | XMS | Encounter Summary ---
Demographics + + + | Address | [address] | | | [place] [address] | + + + | Home Phone | | + + + | Preferred Language | Unknown | + + + | Marital Status | | + + + | Christianity Affiliation | 1013 | + + + | Race | Unknown | + + + | Ethnic Group | Unknown | + + + Author + + + | Author | [facility] | | | and [place] | + + + | Organization | [facility] | | | and [place] | [...] [place] | | | | | [address] | | + + + + + Care Team Providers + +------+ + | Care Director Of Promotions Name | Role | Phone | + [...] | | | [place] | [place] | | | | | [address] | [address] | | | | | [phone] | [phone] | | | | | | | [...] | | | External | performed at [facility];[address] | | LAB | | | | [address] | | | | | | [address];[place] [address] | | | | + + + [...]
--- OUTSIDE RECORDS SUMMARY | ~2020-01-31 | XMS | Encounter Summary ---
Demographics + + + | Address | [address] | | | [place] [address] | + + + | Home Phone [...] + + + | Author | [facility] | + + + | Organization | [facility] | + + + | Address | Unknown | + + + | Phone | Unavailable | + + + Support + + +---------+ + | Name | Relationship | Address | Phone | + + +---------+ + | Maria Isabel Cespedes | ECON | Unknown | | + + +---------+ + Care Team Providers + +------+ + | Care Mathematics Education Professor Name | Role | Phone | + +------+ + | Allison Fairchild GUIDE RAIL CLEANER | PCP | | + +------+ + [...] | [address] | Vonda Khanna [facility] | | | | | ([facility]) | [facility], | | | | | Procedures | Rd | [address]th Floor | | | | | CTA ABDOMEN | [place], [place] | [place], [place] | | | | | [address] | [address] | [address] | | | | | IV CONTRAST | Phone: | Phone: | | | | | [place] | [phone] | [phone] | | | | | ANGIO, ABD | Fax: | Fax: | | | | | AND PELVS | [phone] | [phone] | | | | | INCL IMAG [...] | [address] | Vonda Khanna [facility] | | | | | ([facility]) | [facility], | | | | | Procedures | Rd | 10th Floor | | | | | CTA ABDOMEN | [place], [place] | [place], [place] | | | | | [address] | [address] | [address] | | | | | IV CONTRAST | Phone: | Phone: | | | | | [address] | [phone] | [phone] | | | | | ANGIO, ABD | Fax: | Fax: | | | | | AND PELVS | [phone] | [phone] | | | | | INCL IMAG [...] | 2019 | Encounter | Services at [facility] | [address] | | | | | [address] | [address] | | | | | [place] | [place], [place] | | | | | [address] | [address] | | | | | [place], [place] | [phone] | | | | | [address] | | | | | | [phone] | | | +--------+ + + + [...] + + + +---------+ + + | [id number] | Chew and swallow. | | 0 [...] [facility] | [address] | [place], [place] | | | [facility] | [address] | [address] | | | TESTS | | | [...]
--- OUTSIDE RECORDS SUMMARY | ~2020-01-31 | XMS | Encounter Summary ---
Demographics + + + | Address | [address] | | | [place] [address] | + + + | Home Phone [...] | Author | [facility] | | | and [place] | + + + | Organization | [facility] | | | and [...] [place] | | | | | [address] | | + + + + + Care Team Providers + +------+ + | Care Cash Manager Name | Role | Phone | [...] 2017 | | GASTROENTEROLOGY | [address], [place] | | | | | [address] [place] | [address] [place], [place] | | | | | [address] [place], [place] | [address] | | | | | [address] | | | | | | [phone] | | | +--------+ + + + [...]
--- OUTSIDE RECORDS SUMMARY | ~2020-01-31 | XMS | Encounter Summary ---
Demographics + + + | Address | [address] | | | [place] [address] | + + + | Home Phone | | + + + | Preferred Language | Unknown | + + + | Marital Status | | + + + | Jew Affiliation | 1013 | + + + | Race | Unknown | + + + | Ethnic Group | Unknown | + + + Author + + + | Author | [facility] | | | and [place] | + + + | Organization | [facility] | | | and [place] | [...] [place] | | | | | [address] | | + + + + + Care Team Providers + +------+ + | Care Knuckle Strap Sewer Name | Role | Phone | [...] | | | [place] | [place] | | | | | [address] | [address] | | | | | [phone] | [phone] | | | | | | | [...] EXTERNAL | | | | performed at [facility] | | LAB | | | | Health;[address] | | | | | | [place] | | | | | | [address] | | | | + + + [...]
--- OUTSIDE RECORDS SUMMARY | ~2020-01-31 | XMS | Encounter Summary ---
Demographics + + + | Address | [address] | | | [place] [address] | + + + | Home Phone | | + + + | Preferred Language | Unknown | + + + | Marital Status | | + + + | Judaism Affiliation | 1013 | + + + | Race | Unknown | + + + | Ethnic Group | Unknown | + + + Author + + + | Author | [facility] | | | and [place] | + + + | Organization | [facility] | [...] [place] | | | | | [address] | | + + + + + Care Team Providers + +------+ + | Care Supervisor Lime Name | Role | Phone | + [...] | | | [place] | [place] | | | | | [address] | [address] | | | | | [phone] | [phone] | | | | | | | [...] EXTERNAL | | | | performed at [facility] | | LAB | | | | Health;[address] | | | | | | [place] | | | | | | [address] | | | | + + + [...]
--- OUTSIDE RECORDS SUMMARY | ~2020-01-31 | XMS | Encounter Summary ---
Demographics + + + | Address | [address] | | | [place] [address] | + + + | Home Phone [...] Author | [facility] | | | and [place] | + + + | Organization | [facility] | | | and [...] [place] | | | | | [address] | | + + + + + Care Team Providers + +------+ + | Care Sole Skiver Name | Role | Phone | + [...] [place] | | | | | [address] | [address] | | | | | [phone] | [phone] | | | | | | | [...] + + | CULTURE, BLOOD, 2ND | SONALI | 09/01/2013 | | Results for this | | SPECIMEN (NON-ORD) | | 3:55 PM | | procedure are in the | | | | PST | | results section. | + +--------+ + + + documented in this encounter Results Culture, Blood, 2nd Specimen (09/01/2013 3:55 PM PST) + + | Specimen | + + | | + + + + + | Narrative | Performed At | + + + | Specimen Description BLOOD | EXTERNAL LAB | | Testing performed at [facility] | | | Health;[address];[place] [address] GRAM STAIN | | | GRAM POSITIVE COCCI IN CLUSTERS SEEN IN ANAEROBIC | | | BOTTLE SMEAR | | | RESULTS CALLED TO AND READ BACK BY: GAYLE Henderson RN TRIOS 2E 09/03 [facility] | | | Testing performed | | | at [facility], [address] [place] [address] CULTURE | | | STAPHYLOCOCCUS SPECIES, COAGULASE | | | NEGATIVE GROWTH | | | IN ONE OF TWO BOTTLES | | | TIME TO DETECTION: 47 HOURS 5 MINITES | | | POSSIBLE CONTAMINANT, CLINICAL CORRELATION | | | REQUIRED. Testing | | | performed at [facility], [address] [place] [address] | | | REPORT STATUS 09/12/2013 FINAL | | + + + + +---------+ + + | Performing | Address | City/State/Zipcode | Phone Number | | Organization | | | | + +---------+ + + | EXTERNAL LAB | | | | + +---------+ + + documented in this encounter Visit Diagnoses Not on filedocumented in this encounter"
--- OUTSIDE RECORDS SUMMARY | ~2020-01-31 | XMS | Encounter Summary ---
Demographics + + + | Address | [address] | | | [place] [address] | + + + | Home Phone [...] | Author | [facility] | | | and Alexana | + + + | Organization | [facility] | | [...] [address] | | | | | [place] | | | | | [address] | | + + + + + Care Team Providers + +------+ + | Care Conservation Policy Analyst Name | Role | Phone | + +------+ + PCP | Unavailable | + +------+ + Encounter Details +--------+ + + + + | Date | Type | Department | Care Team | Description | +--------+ + + + + | 01/09/ | [facility] | [facility] | Dominick Perez MD | | | 2013 | Encounter | [facility] | [address] | | | | | CLINICAL LABORATORY | [place] | | | | | [address] | [address] | | | | | [place], [place] | [phone] | | | | | [address] | | | | | | [phone] | | | +--------+ + + + [...] | TISSUE REQUEST FOR | Routin | 01/09/2014 | | Results for this | | PATHOLOGY (NON-ORD) | e | 12:00 AM | | procedure are in the | | | | PDT | | results section. | + +--------+ + + + documented in this encounter Results Tissue Request For Pathology (01/09/2014 12:00 AM PDT) + + | Specimen | + + | | + + + + + | Narrative | Performed At | + + + | CASE: [id number] PATIENT: APARNA HAN Surgical Pathology Report | EXTERNAL LAB | | PATHOLOGIC DIAGNOSIS: A. 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 - Negative for significant villous blunting. B. | | | Stomach, biopsies: - Minimal chronic gastritis with vascular | | | congestion. - Negative for Helicobacter pylori organisms | | | (Warthin-Starry stain). - Negative for intestinal metaplasia | | | (Alcian Blue/PSA stain). C. Ascending polyp, biopsy: - | | | Tubular adenoma. AMB:mak:C2NR CLINICAL HISTORY: | | | 01/09/2014. Weight loss, ? screening. GROSS DESCRIPTION: | | | Three specimens are received in three containers, labeled "Kalal": | | | A. Received in formalin designated "duodenal biopsy", consists of | | | multiple fragments of soft brock to brown tissue measuring 0.3 x 0.3 x | | | 0.2 cm. The specimen is entirely submitted in a single cassette A1. | | | B. Received in formalin designated "gastric biopsy", consists of | | | three fragments of white to brock tissue measuring together 0.3 x 0.2 x | | | 0.2 cm. The specimen is entirely submitted in a single cassette B1. | | | C. Received in formalin designated "ascending colon polyp", | | | consists of two fragments of soft brock to white tissue measuring | | | together 0.2 x 0.2 x 0.2 cm. The specimen is entirely submitted in a | | | single cassette C1. EDSON MICROSCOPIC EXAMINATION: A-C. | | | Histologic sections of all submitted blocks are examined by light | | | microscopy. These findings, together with the gross examination, | | | support the pathologic diagnosis. All positive controls for both | | | special/immunohistochemical stains are reviewed and react | | | appropriately. Mckayla Andino MD Electronically signed January | | | 2013 8:17:25AM | | + + + + +---------+ + + | Performing | Address | City/State/Zipcode | Phone Number | | Organization | | | | + +---------+ + + | EXTERNAL LAB | | | | + +---------+ + + documented in this encounter Visit Diagnoses Not on filedocumented in this encounter
--- OUTSIDE RECORDS SUMMARY | ~2020-01-31 | XMS | Encounter Summary ---
Demographics + + + | Address | [address] | | | [place] [address] | + + + | Home Phone | | + + + | Preferred Language | Unknown | + + + | Marital Status | | + + + | Yarsani Affiliation | 1013 | + + + | Race | Unknown | + + + | Ethnic Group | Unknown | + + + Author + + + | Author | [facility] | | | and [place] | + + + | Organization | [facility] | | | and [...] [place] | | | | | [address] | | + + + + + Care Team Providers + +------+ + | Care Underground Conduit Installer Name | Role | Phone | + +------+ + PCP | Unavailable | + +------+ + Encounter Details +--------+ + + + + | Date | Type | Department | Care Team | Description | +--------+ + + + + | 04/09/ | Hospital | C GENERIC IP | Conversion | Diagnosis unknown | | 2013 | Encounter | CONVERSION [address] | Transaction, | | | | [address] | Provider Unknown | | | | | [place] | | | | | | [address] | | | | | | [phone] | | | +--------+ + + + [...] CT ABDOMEN PELVIS W | Routin | 03/31/2014 | | Results for this | | CONTRAST | e | 2:15 PM | | procedure are in the | | | | PDT | | results section. | + +--------+ + + + documented in this encounter Results CT Abdomen Pelvis w Contrast (03/31/2014 2:15 PM PDT) + + | Specimen | [...] + | Diagnosis | + + | Diagnosis unknown Other unknown and unspecified cause of morbidity or mortality | + + documented in this encounter"
--- OUTSIDE RECORDS SUMMARY | ~2020-01-31 | XMS | Encounter Summary ---
Demographics + + + | Address | [address] | | | [place] [address] | + + + | Home Phone | | + + + | Preferred Language | Unknown | + + + | Marital Status | | + + + | Samaritan Affiliation | 1013 | + + + | Race | Unknown | + + + | Ethnic Group | Unknown | + + + Author + + + | Author | [facility] | | | and [place] | + + + | Organization | [facility] | | | and [place] | + + + | Address | Unknown | + + + | Phone | Unavailable | + + + Support + + + + + | Name | Relationship | Address | Phone | + + + + + | Teodora Cespedes | ECON | [address] | | | | | [facility] [place] [place] | | | | | [address] | | + + + + + Care Team Providers + +------+ + | Care Pigment Presser Name | Role | Phone | + +------+ + PCP | Unavailable | + +------+ + Encounter Details +--------+ + + + + | Date | Type | Department | Care Team | Description | +--------+ + + + + | 10/31/ | Hospital | [facility] | Conversion | | | 2014 | Encounter | [facility] | Transaction, | | | | | CLINIC [address] | Provider Unknown | | | | | [place], [place] | | | | | | [phone] | (Fax) | | | | | [phone] | | | +--------+ + + + [...] + + | Historically converted procedure from [facility] Epic environment | EXTERNAL LAB | + [...] LAB | | | | Blvd;[place] [address] | | | | + + + + + + | Antibody | NEGATIVE | | EXTERNAL | | | Screen | | | LAB | | + + + + + + | Antibody | Testing performed at | | EXTERNAL | | | Screen | [facility];[address] | | LAB | | | | [address];[place] [address] | | | | + + + [...] EXTERNAL | | | | performed at [facility];[address] | | LAB | | | | [address];[place] | | | | | | [address] | | | | + + + + + + | Red Blood | 4.67Comment: Testing | 4.20 - 5.70 | EXTERNAL | | | Cells | performed at [facility];[address] | M/uL | LAB | | | Counted | [address];[place] | | | | | | [address] | | | | + + + + + + | Hemoglobin | 14.1Comment: Testing | 13.2 - 17.0 | EXTERNAL | | | | performed at [facility];[address] | g/dL | LAB | | | | [address];[place] | | | | | | [address] | | | | + + + + + + | Hematocrit, | 42.8Comment: Testing | 39.0 - 50.0 % | EXTERNAL | | | POC | performed at [facility];[address] | | LAB | | | | [address];[place] | | | | | | [address] | | | | + + + + + + | MCV | 91.6Comment: Testing | 80.0 - 100.0 fl | EXTERNAL | | | | performed at [facility];[address] | | LAB | | | | [address];[place] | | | | | | [address] | | | | + + + + + + | MCH | 30.1Comment: Testing | 27.0 - 34.0 pg | EXTERNAL | | | | performed at [facility];[address] | | LAB | | | | [address];[place] | | | | | | [address] | | | | + + + + + + | MCHC | 32.9Comment: Testing | 32.0 - 35.5 | EXTERNAL | | | | performed at [facility];[address] | g/dL | LAB | | | | [address];[place] | | | | | | [address] | | | | + + + + + + | RDW-CV | 45.5Comment: Testing | 37 - 53 fl | EXTERNAL | | | | performed at [facility];[address] | | LAB | | | | [address];[place] | | | | | | [address] | | | | + + + + + + | Platelet | 345Comment: Testing | 150 - 400 K/uL | EXTERNAL | | | Count | performed at [facility];[address] | | LAB | | | Plasma | [address];[place] | | | | | | [address] | | | | + + + + + + | MPV | 8.4Comment: Testing | fl | EXTERNAL | | | | performed at [facility];[address] | | LAB | | | | [address];[place] | | | | | | [address] | | | | + + + + + + | Differentia | AUTOMATEDComment: | | EXTERNAL | | | l Type | Testing performed at | | LAB | | | | [facility];[address] | | | | | | [address];[place] [address] | | | | + + + + + + | % Segmented | 65.7Comment: Testing | % | EXTERNAL | | | | performed at [facility];[address] | | LAB | | | Neutrophils | [address];[place] | | | | | | [address] | | | | + + + + + + | % | 24.6Comment: Testing | % | EXTERNAL | | | Lymphocytes | performed at [facility];[address] | | LAB | | | | [address];[place] | | | | | | [address] | | | | + + + + + + | % Monocytes | 6.6Comment: Testing | % | EXTERNAL | | | | performed at [facility];[address] | | LAB | | | | [address];[place] | | | | | | [address] | | | | + + + + + + | % | 1.8Comment: Testing | % | EXTERNAL | | | Eosinophils | performed at [facility];[address] | | LAB | | | | [address];[place] | | | | | | [address] | | | | + + + + + + | % Basophils | 1.3Comment: Testing | % | EXTERNAL | | | | performed at [facility];[address] | | LAB | | | | [address];[place] | | | | | | [address] | | | | + + + + + + | Absolute | 7.7 (H)Comment: Testing | 1.9 - 7.4 K/uL | EXTERNAL | | | Segmented | performed at [facility];[address] | | LAB | | | Neutrophils | [address];[place] | | | | | | [address] | | | | + + + + + + | Absolute | 2.9Comment: Testing | 1.0 - 3.9 K/uL | EXTERNAL | | | Lymphocytes | performed at [facility];[address] | | LAB | | | | [address];[place] | | | | | | [address] | | | | + + + + + + | Absolute | 0.8Comment: Testing | 0 - 0.8 K/uL | EXTERNAL | | | Monocytes | performed at [facility];[address] | | LAB | | | | [address];[place] | | | | | | [address] | | | | + + + + + + | Absolute | 0.2Comment: Testing | 0 - 0.5 K/uL | EXTERNAL | | | Eosinophils | performed at [facility];[address] | | LAB | | | | [address];[place] | | | | | | [address] | | | | + + + + + + | Absolute | 0.1Comment: Testing | 0 - 0.1 K/uL | EXTERNAL | | | Basophils | performed at [facility];[address] | | LAB | | | | [address];[place] | | | | | | [address] | | | | + + + [...] EXTERNAL | | | | performed at [facility];[address] | mmol/L | LAB | | | | [address];[place], [place] | | | | | | [address] | | | | + + + + + + | K | 4.0Comment: Testing | 3.5 - 4.9 | EXTERNAL | | | | performed at [facility];[address] | mmol/L | LAB | | | | [address];[place] | | | | | | [address] | | | | + + + + + + | Cl | 108Comment: Testing | 99 - 109 mmol/L | EXTERNAL | | | | performed at [facility];[address] | | LAB | | | | [address];[place] | | | | | | [address] | | | | + + + + + + | CO2 | 26Comment: Testing | 23 - 32 mmol/L | EXTERNAL | | | | performed at [facility];[address] | | LAB | | | | [address];[place] | | | | | | [address] | | | | + + + + + + | Anion Gap | 10Comment: Testing | 5 - 20 mmol/L | EXTERNAL | | | | performed at [facility];[address] | | LAB | | | | [address];[place] | | | | | | [address] | | | | + + + + + + | Glucose, | 95Comment: Testing | 65 - 99 mg/dL | EXTERNAL | | | Fasting | performed at [facility];[address] | | LAB | | | | [address];[place] | | | | | | [address] | | | | + + + + + + | BUN | 17Comment: Testing | 8 - 25 mg/dL | EXTERNAL | | | | performed at [facility];[address] | | LAB | | | | [address];[place] | | | | | | [address] | | | | + + + + + + | Creatinine | 0.92Comment: Testing | 0.70 - 1.30 | EXTERNAL | | | | performed at [facility];[address] | mg/dL | LAB | | | | [address];[place] | | | | | | [address] | | | | + + + + + + | BUN/Creatin | 19Comment: Testing | | EXTERNAL | | | ine Ratio | performed at [facility];[address] | | LAB | | | | [address];[place] | | | | | | [address] | | | | + + + + + + | Calcium | 8.4 (L)Comment: Testing | 8.5 - 10.5 | EXTERNAL | | | | performed at [facility];[address] | mg/dL | LAB | | | | [address];[place] | | | | | | [address] | | | | + + + [...] | | | | | | at [facility];[address] | | | | | | [place] [address] | | | | + + + [...] EXTERNAL LAB | | Testing performed at [facility];[address] [place] [address];[place] [address] MRSA PCR | | | NEGATIVE Testing performed at | | | [address];[place] [address] | | + + + + +---------+ + + | Performing | Address | City/State/Zipcode | Phone Number | | Organization | | | | + +---------+ + + | EXTERNAL LAB | | | | + +---------+ + + documented in this encounter Visit Diagnoses Not on filedocumented in this encounter"
--- OUTSIDE RECORDS SUMMARY | ~2020-01-31 | XMS | Encounter Summary ---
Demographics + + + | Address | [address] | | | [place] [address] | + + + | Home Phone [...] | Author | [facility] | | | and [place] | + + + | Organization | [facility] | | | and [...] [place] | | | | | [address] | | + + + + + Care Team Providers + +------+ + | Care Reporter Name | Role | Phone | + +------+ + PCP | Unavailable | + +------+ + Encounter Details +--------+ + + + + | Date | Type | Department | Care Team | Description | +--------+ + + + + | 03/27/ | [facility] | [facility] | Jamie Bentley MD | Incisional hernia | | 2013 | Encounter | [facility] | [address] | | | | | [address] | [address] [place], [place] | | | | | [place], [place] | [address] | | | | | [address] | | | | | | [phone] | | | +--------+ + + + [...] 03/27/141005 Date of Service: 03/27/141005 Status: Signed Hand Glass Cutter: Bradley West RPH (Pharmacist) Clinical Pharmacy Note: Renal Monitoring Reza Cespedes 53 y.o. male Ht Readings from Last 1 Encounters: 03/27/14 1.803 m (5' 11") Wt Readings from Last 1 Encounters: 03/27/14 86 kg (189 lb 9.5 oz) CREATININE Date Value Range Status 03/24/2014 0.93 0.70 - 1.30 mg/dL Final Testing performed at [facility];[address];[place] [address] CREATININE: 0.93 (03/24/14 1540) Estimated creatinine clearance - Cockcroft-Gault CrCl: 96.7 mL/min Pharmacy dosing for renal function per Dr. Bentley. Currently, there are no medications needing to be adjusted. Pharmacy will continue to monit or for changes in medication orders and in renal function and adjust accordingly. Bradley West [facility] 03/27/2014 10:06 AM docume nted in this encounter Plan of Treatment Not on filedocumented as of this encounter Visit Diagnoses + + | Diagnosis | + + | Incisional hernia Incisional hernia without mention of obstruction or gangrene | + + documented in this encounter
--- OUTSIDE RECORDS SUMMARY | ~2020-01-31 | XMS | Encounter Summary ---
Demographics + + + | Address | [address] | | | [place] [address] | + + + | Home Phone [...] | Author | [facility] | | | and [place]ana | + + + | Organization | [facility] | | | and [place] | [...] [place] | | | | | [address] | | + + + + + Care Team Providers + +------+ + | Care Vessel Crew Member Name | Role | Phone | + +------+ + | Allison Fairchild NP | PCP | | + +------+ + Encounter Details +--------+ + + + + | Date | Type | Department | Care Team | Description | +--------+ + + + + | 07/15/ | Orders Only | [facility] | Sri Kruger, | | | 2017 | | [address] | MD Cassia CASTORENA | | | | | [place], [place] | [address] | | | | | [address] | [place] [address] | | | | | [phone] | [phone] | | | | | | | [...] | + +--------+ + + + | TESTOSTERONE, TOTAL, | Routin | 07/15/2017 | | Results for this | | LC-MS/MS | e | 10:20 AM | | procedure are in the | | | | PST | | results section. | + +--------+ + + + | CORTISOL, AM | Routin | 07/15/2017 | | Results for this | | | e | 10:20 AM | | procedure are in the | | | | PST | | results section. | + +--------+ + + + | METANEPHRINES, | Routin | 07/15/2017 | | Results for this | | FRACTIONATED, FREE, | e | 10:20 AM | | procedure are in the | | PLASMA | | PST | | results section. | + +--------+ + + + | CATECHOLAMINE, | Routin | 07/15/2017 | | Results for this | | FRACTIONATED | e | 10:20 AM | | procedure are in the | | | | PST | | results section. | + +--------+ + + + | INSULIN-LIKE GROWTH | Routin | 07/15/2017 | | Results for this | | FACTOR 1 | e | 10:20 AM | | procedure are in the | | | | PST | | results section. | + +--------+ + + + | TSH | Routin | 07/15/2017 | | Results for this | | | e | 10:20 AM | | procedure are in the | | | | PST | | results section. | + +--------+ + + + | T4, FREE | Routin | 07/15/2017 | | Results for this | | | e | 10:20 AM | | procedure are in the | | | | PST | | results section. | + +--------+ + + + | HEMOGLOBIN A1C | Routin | 07/15/2017 | | Results for this | | | e | 10:20 AM | | procedure are in the | | | | PST | | results section. | + +--------+ + + + | BASIC METABOLIC | Routin | 07/15/2017 | | Results for this | | PANEL | e | 10:20 AM | | procedure are in the | | | | PST | | results section. | + +--------+ + + + documented in this encounter Results Testosterone, Total by LC-MS/MS (07/15/2017 10:20 AM PST) + + + + + + | Component | Value | Ref Range | Performed | Pathologist | | | | | At | Signature | + + + + + + | Testosteron | 538Comment: Reference | 300 - 890 ng/dL | EXTERNAL | | | e, Total, | range: 264 to 916ADULT | | LAB | | | LC-MS/MS | MALE REFERENCE INTERVAL | | | | | | IS BASED ON A POPULATION | | | | | | OF HEALTHYNONOBESE | | | | | | MALES (BMI <30) BETWEEN | | | | | | 19 AND 39 YEARS OLD.TEST | | | | | | DEVELOPED AND | | | | | | CHARACTERICSTICS | | | | | | DETERMINED BY PAM. SEE | | | | | | COMPLIANCESTATEMENT B. | | | | + + + + + + + + | Specimen | + + | Blood specimen | | (specimen) | + + + +---------+ + + | Performing | Address | City/State/Zipcode | Phone Number | | Organization | | | | + +---------+ + + | EXTERNAL LAB | | | | + +---------+ + + Metanephrines, Fractionated, Free, Plasma (07/15/2017 10:20 AM PST) + + + + + + | Component | Value | Ref Range | Performed | Pathologist | | | | | At | Signature | + + + + + + | Metanephrin | <0.35 | 0.0 - 0.49 | EXTERNAL | | | e, Free | | nmol/L | LAB | | + + + + + + | Normetaneph | <0.55Comment: Reference | 0.0 - 0.89 | EXTERNAL | | | rine, Free | range: 0.00 to 0.89 | nmol/L | LAB | | + + + + + + | Total,Free | <0.90Comment: THIS TEST | 0.0 - 1.38 | EXTERNAL | | | Metanephrin | IS USEFUL IN THE | nmol/L | LAB | | | e,Normetane | DETECTION OF | | | | | phrine | PHEOCHROMOCYTOMA. | | | | | | MOSTPATIENTS WHO | | | | | | PRESENT WITH THIS | | | | | | CONDITION HAVE A PLASMA | | | | | | METANEPHRINEAND/OR | | | | | | NORMETANEPHRINE | | | | | | CONCENTRATION GREATER | | | | | | THAN 10 TIMES THE | | | | | | UPPERLIMIT OF | | | | | | NORMAL.PATIENTS WITH | | | | | | MODERATE ELEVATIONS OF | | | | | | METANEPHRINE | | | | | | AND/ORNORMETANEPHRINE | | | | | | (UP TO 4 TIMES THE UPPER | | | | | | LIMIT OF THE NORMAL | | | | | | RANGE)MAY BE DUE TO | | | | | | MEDICATION OR STRESS. IF | | | | | | CLINICAL SUSPICION | | | | | | REMAINS,REPEAT PLASMA | | | | | | TESTING OR TEST FOR | | | | | | METANEPHRINES IN A 24 | | | | | | HOUR URINECOLLECTION. | | | | + + + + + + + + | Specimen | + + | | + + + +---------+ + + | Performing | Address | City/State/Zipcode | Phone Number | | Organization | | | | + +---------+ + + | EXTERNAL LAB | | | | + +---------+ + + Cortisol, AM (07/15/2017 10:20 AM PST) + +-------+ + + + | Component | Value | Ref Range | Performed | Pathologist | | | | | At | Signature | + +-------+ + + + | Cortisol - | 12.5 | 4.3 - 22.4 | EXTERNAL | | | AM | | ug/dL | LAB | | + +-------+ + + + + + | Specimen | + + | | + + + +---------+ + + | Performing | Address | City/State/Zipcode | Phone Number | | Organization | | | | + +---------+ + + | EXTERNAL LAB | | | | + +---------+ + + Catecholamine, Fractionated, Plasma (07/15/2017 10:20 AM PST) + + + + + + | Component | Value | Ref Range | Performed | Pathologist | | | | | At | Signature | + + + + + + | Dopamine, | 39Comment: Reference | pg/mL | EXTERNAL | | | Plasma | range: 0 to 48 | | LAB | | + + + + + + | Epinephrine | 38Comment: Reference | pg/mL | EXTERNAL | | | , Plasma | range: 0 to 62 | | LAB | | + + + + + + | Norepinephr | 201Comment: Reference | pg/mL | EXTERNAL | | | ine, Plasma | range: 0 to 874 | | LAB | | + + + + + + + + | Specimen | + + | Blood specimen | | (specimen) | + + + +---------+ + + | Performing | Address | City/State/Zipcode | Phone Number | | Organization | | | | + +---------+ + + | EXTERNAL LAB | | | | + +---------+ + + Insulin-Like Growth Factor 1 (07/15/2017 10:20 AM PST) + + + + + + | Component | Value | Ref Range | Performed | Pathologist | | | | | At | Signature | + + + + + + | Insulin-lik | 84Comment: Reference | ng/mL | EXTERNAL | | | e growth | range: 54 to 194 | | LAB | | | factor 1 | | | | | + + + + + + + + | Specimen | + + | Blood specimen | | (specimen) | + + + +---------+ + + | Performing | Address | City/State/Zipcode | Phone Number | | Organization | | | | + +---------+ + + | EXTERNAL LAB | | | | + +---------+ + + TSH (07/15/2017 10:20 AM PST) + +-------+ + + + | Component | Value | Ref Range | Performed | Pathologist | | | | | At | Signature | + +-------+ + + + | TSH | 1.32 | 0.45 - 5.10 | EXTERNAL | | | | | u[iU]/mL | LAB | | + +-------+ + + + + + | Specimen | + + | Blood specimen | | (specimen) | + + + +---------+ + + | Performing | Address | City/State/Zipcode | Phone Number | | Organization | | | | + +---------+ + + | EXTERNAL LAB | | | | + +---------+ + + T4, Free (07/15/2017 10:20 AM PST) + +-------+ + + + | Component | Value | Ref Range | Performed | Pathologist | | | | | At | Signature | + +-------+ + + + | FREE T4 | 1.3 | 0.7 - 1.5 ng/dL | EXTERNAL | | | (REF) | | | LAB | | + +-------+ + + + + + | Specimen | + + | Blood specimen | | (specimen) | + + + +---------+ + + | Performing | Address | City/State/Zipcode | Phone Number | | Organization | | | | + +---------+ + + | EXTERNAL LAB | | | | + +---------+ + + Hemoglobin A1C (07/15/2017 10:20 AM PST) + + + + + + | Component | Value | Ref Range | Performed | Pathologist | | | | | At | Signature | + + + + + + | Hemoglobin | 5.6Comment: The [facility] | 4.0 - 6.0 % | EXTERNAL | | | A1c | Diabetes Association | | LAB | | | | considers a hemoglobin | | | | | | A1c result of <7.0% to | | | | | | be the goal of diabetic | | | | | | therapy. When results | | | | | | are consistently >8.0%, | | | | | | the ADA suggests | | | | | | reevaluation of the | | | | | | treatment regimen. The | | | | | | testing method used is | | | | | | certified traceable to | | | | | | the Diabetes Control and | | | | | | Complications Trial | | | | | | reference method. | | | | + + + + + + | Glycohemogl | 114Comment: The ADA | mg/dL | EXTERNAL | | | obin | considers an eAG result | | LAB | | | (GHb),Total | of LT 154 mg/dL to be | | | | | | the goal of diabetic | | | | | | therapy. Estimated | | | | | | Average Glucose | | | | | | calculated from | | | | | | hemoglobin A1c by use of | | | | | | the ADA recommended | | | | | | formula. | | | | + + + [...] + +---------+ + + Basic Metabolic Panel (07/15/2017 10:20 AM PST) + + + + + + | Component | Value | Ref Range | Performed | Pathologist | | | | | At | Signature | + + + + + + | Na | 142 | 135 - 145 | EXTERNAL | | | | | mmol/L | LAB | | + + + + + + | K | 4.1 | 3.5 - 4.9 | EXTERNAL | | | | | mmol/L | LAB | | + + + + + + | Cl | 107 | 99 - 109 mmol/L | EXTERNAL | | | | | | LAB | | + + + + + + | CO2 | 25 | 23 - 32 mmol/L | EXTERNAL | | | | | | LAB | | + + + + + + | Anion Gap | 14 | 5 - 20 mmol/L | EXTERNAL | | | | | | LAB | | + + + + + + | Glucose, | 94 | 65 - 99 mg/dL | EXTERNAL | | | Fasting | | | LAB | | + + + + + + | BUN | 21 | 8 - 25 mg/dL | EXTERNAL | | | | | | LAB | | + + + + + + | Creatinine | 0.9 | 0.70 - 1.30 | EXTERNAL | | | | | mg/dL | LAB | | + + + + + + | BUN/Creatin | 23 | | EXTERNAL | | | ine Ratio | | | LAB | | + + + + + + | Calcium | 8.9 | 8.5 - 10.5 | EXTERNAL | | | | | mg/dL | LAB | | + + + + + + | Estimated | >60Comment: GFR <60: | mL/min/1.73_m2 | EXTERNAL | | | GFR | CHRONIC KIDNEY DISEASE, | | LAB | | | | IF FOUND OVER A 3 MONTH | | | | | | PERIOD. GFR <15: KIDNEY | | | | | | FAILURE. FOR | | | | | | AMERICANS, MULTIPLY THE | | | | | | CALCULATED GFR BY 1.210. | | | | + + + [...]
--- OUTSIDE RECORDS SUMMARY | ~2020-01-31 | XMS | Encounter Summary ---
Demographics + + + | Address | [address] | | | [place] [address] | + + + | Home Phone [...] | Author | [facility] | | | and [place] | + + + | Organization | [facility] | | | and [...] [place] | | | | | [address] | | + + + + + Care Team Providers + +------+ + | Care Contact Person Name | Role | Phone | + [...] | | | | | | [address] [place], [place] | | | | | | [address] | | | | | | [phone] | | | +--------+ + + + [...]
--- OUTSIDE RECORDS SUMMARY | ~2020-01-31 | XMS | Encounter Summary ---
Demographics + + + | Address | [address] | | | [place] [address] | + + + | Home Phone | | + + + | Preferred Language | Unknown | + + + | Marital Status | | + + + | Uatsdin Affiliation | 1013 | + + + | Race | Unknown | + + + | Ethnic Group | Unknown | + + + Author + + + | Author | [facility] | | | and [place] | + + + | Organization | [facility] | [...] [place] | | | | | [address] | | + + + + + Care Team Providers + +------+ + | Care Senior Php Web Developer Name | Role | Phone [...] | | | | [address] [facility] | [place], [place] | | | | | [address] [place] | [address] | | | | | [address] | [phone] | | | | | [phone] | | | +--------+--------+ + + + [...]
--- OUTSIDE RECORDS SUMMARY | ~2020-01-31 | XMS | Encounter Summary ---
Demographics + + + | Address | [address] | | | [place] [address] | + + + | Home Phone [...] | Author | [facility] | | | and [place] | + + + | Organization | [facility] | | [...] [place] | | | | | [address] | | + + + + + Care Team Providers + +------+ + | Care Study Assistant Name | Role | Phone | [...] | +--------+ + + + + | 11/16/ | Telephone | [facility] | Adrian Aponte MD | EGD | | 2018 | | GASTROENTEROLOGY | [address] | | | | | [address] [facility] | [place], [place] | | | | | [address] [place] | [address] | | | | | [address] | [phone] | | | | | [phone] | | | +--------+ + + + [...]
--- OUTSIDE RECORDS SUMMARY | ~2020-01-31 | XMS | Encounter Summary ---
Demographics + + + | Address | [address] | | | [place] [address] | + + + | Home Phone [...] | Author | [facility] | | | and [place] | + + + | Organization | [facility] [...] [place] | | | | | [address] | | + + + + + Care Team Providers + +------+ + | Care Parking Assistant Name | Role | Phone | [...] + + | 07/04/ | Emergency | [facility] | Herson Tobias, | Abdominal wall | | 2019 | | [facility] | PA-C [address] | abscess (Primary Dx) | | | | EMERGENCY CENTER | [place] [address] | | | | | [address] | [phone] | | | | | [place], [place] | | | | | | [address] | Obed Davis, | | | | | [phone] | MD [address] | | | | | | [place], [place] | | | | | | [address] | | | | | | [phone] | | | | | | | [...] through Care Everywhere.Abscess, Incisi on And Drainage (Icelandic)documented in this encounter Medications at Time of [...] D?MRN: | | | | | | [id number] | | | [id number] | | | riteri | | | [...] | | | St. | | | [place] | | | y | | | [...] | | | St. | | | [place] | | | y | | | [...] | | | St. | | | [place] | | | y H. | | [...] | | | St. | | | [place] | | | y H. | | [...] | | | St. | | | [place] | | | y H. | | [...] | | | St. | | | [place] | | | y H. | | [...] | | | S, | | | BOTTLE BLOWER-C | | | Nurse | | | [...] administration of 100 mL | | | [id number] intravenous contrast. Multiplanar reconstructions. | | | [...] the administration of 100 mL | | [id number] intravenous contrast. Multiplanar reconstructions. | | | [...] Special | Testing performed at | | [facility] | | | Requests | [facility] | | LABORATORY | | | | [place] [address] | | | | + + + + + + | RESULT | NO GROWTH 6 DAYS | | [facility] | | | | | | LABORATORY | | + + + + + + | RESULT | Testing performed at | | [facility] | | | | TCL, [address] | | LABORATORY | | | | [place], [place] | | | | | | [id number]: Testing | | | | | | performed at [facility], [address] | | | | | | [address] [place], [place] | | | | | | [address] | | | | + + + + + + + + | Specimen | + + | Blood - Peripheral | | blood specimen | | (specimen) | + + + + + + + | Performing | Address | City/State/Zipcode | Phone Number | | Organization | | | | + + + + + | [facility] | [address] | [place] [address] | [phone] | + + + + + Culture, [...] Special | Testing performed at | | [facility] | | | Requests | [facility] | | LABORATORY | | | | [place] [address] | | | | + + + + + + | RESULT | NO GROWTH 6 DAYS | | [facility] | | | | | | LABORATORY | | + + + + + + | RESULT | Testing performed at | | [facility] | | | | TCL, [address] | | LABORATORY | | | | [place] | | | | | | [id number]: Testing | | | | | | performed at [facility], [address] | | | | | | [address] [place], [place] | | | | | | [address] | | | | + + + + + + + + | Specimen | + + | Blood - Swab of line | | insertion site | | (specimen) | + + + + + + + | Performing | Address | City/State/Zipcode | Phone Number | | Organization | | | | + + + + + | [facility] | [address] | [place] [address] | [phone] | + + + + + Lactic Acid (07/04/2019 8:10 PM PDT) + + + + + + | Component | Value | Ref Range | Performed | Pathologist | | | | | At | Signature | + + + + + + | Lactate, | 1.3Comment: Testing | 0.4 - 2.0 | [facility] | | | Serum | performed at [facility];[address] | mmol/L | LABORATORY | | | | [address];[place], [place] | | | | | | [address] | | | | + + + + + + + + | Specimen | + + | Blood | + + + + + + + | Performing | Address | City/State/Zipcode | Phone Number | | Organization | | | | + + + + + | [facility] | [address] | [place] [address] | [phone] | + + + + + Lipase (07/04/2019 8:10 PM PDT) + + + + + + | Component | Value | Ref Range | Performed | Pathologist | | | | | At | Signature | + + + + + + | Lipase | Comment: Testing | 12 - 53 U/L | [facility] | | | | performed at [facility];[address] | | LABORATORY | | | | [address] [place] | | | | | | [address] | | | | + + + + + + + + | Specimen | + + | Blood | + + + + + + + | Performing | Address | City/State/Zipcode | Phone Number | | Organization | | | | + + + + + | [facility] | [address] | [place] [address] | [phone] | + + + + + Comprehensive [...] | | | | | | [facility] traceable | | | | | | equation.Testing | | | | | | performed at [facility];[address] | | | | | | [facility];[place], [place] | | | | | | [address] | | | | + + + + + + + + | Specimen | + + | Blood | + + + + + + + | Performing | Address | City/State/Zipcode | Phone Number | | Organization | | | | + + + + + | [facility] | [address] | [place] [address] | [phone] | + + + + + CBC [...] 0.08Comment: Testing | 0.00 - 0.10 | [facility] | | | Absolute | performed at [facility];[address] | K/uL | LABORATORY | | | | [place] | | | | | | [address] | | | | + + + + + + + + | Specimen | + + | Blood | + + + + + + + | Performing | Address | City/State/Zipcode | Phone Number | | Organization | | | | + + + + + | [facility] | [address] | [place] [address] | [phone] | + + + + + Culture, [...] | [facility] | | | Result | [facility];[address] | | LABORATORY | | | | [address]vd;[place] [address] | | | | + + + [...] Comment: Testing | | | performed at [facility], | | | [address], | | | [place] [address] | +---+ + + + + + + | Performing | Address | City/State/Zipcode | Phone Number | | Organization | | | | + + + + + | [facility] | [address] | [place] [address] | [phone] | + + + + + documented [...]
--- OUTSIDE RECORDS SUMMARY | ~2020-01-31 | XMS | Encounter Summary ---
Demographics + + + | Address | [address] [place] [address] | | | [place] [address] | + + + | Home Phone [...] + | Author | [facility] | | | and [place] | + + + | Organization | [facility] | | [...] [place] | | | | | [address] | | + + + + + Care Team Providers + +------+ + | Care Police Dispatcher Name | Role | Phone | + [...] + | 10/08/ | Refill | [facility] | Adrian Aponte MD | Medication Refill; | | 2017 | | GASTROENTEROLOGY | [address] [facility] | Diagnostic Order | | | | [address] [facility] | [place], [place] | (CT) | | | | [address] [place], [place] | [address] | | | | | [address] | [phone] | | | | | [phone] | | | +--------+--------+ + + + [...]
--- OUTSIDE RECORDS SUMMARY | ~2020-01-31 | XMS | Encounter Summary ---
Demographics + + + | Address | [address] | | | [place] [address] | + + + | Home Phone [...] + | Author | [facility] | | | and [place] | + + + | Organization | [facility] | | | and [place] [...] [place] | | | | | [address] | | + + + + + Care Team Providers + +------+ + | Care Radar Technician Name | Role | Phone | + +------+ + | Allison Fairchild NP | PCP | | + +------+ + Encounter Details +--------+ + + + + | Date | Type | Department | Care Team | Description | +--------+ + + + + | 02/21/ | Hospital | [facility] | Conversion | 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
--- OUTSIDE RECORDS SUMMARY | ~2020-01-31 | XMS | Encounter Summary ---
Demographics + + + | Address | [address] | | | [place] [address] | + + + | Home Phone [...] | Author | [facility] | | | and [place] | + + + | Organization | [facility] | [...] [place] | | | | | [address] | | + + + + + Care Team Providers + +------+ + | Care Shingle Sawyer Name | Role | Phone | + [...] | | artery | [address] | [place], [place] | | | | | disease) | [place] | [address] | | | | | (HCC) | [address] | Phone: | | | | | Procedures | Phone: | [phone] | | | | | IR Stent | [phone] | Fax: | | | | | Iliac | Fax: | [phone] | | | | | | [phone] | | +--------+--------+ + + + + Reason for Visit + + + | Reason | Comments | + + + | Follow-up | 6 mon f/u on CTA | + + + Encounter Details +--------+---------+ + + + | Date | Type | Department | Care Team | Description | +--------+---------+ + + + | 05/26/ | Office | [facility] | Rich [place] MD | PAD (peripheral | | 2019 | Visit | VASCULAR SURGERY | [address] | artery disease) | | | | [address] | [place] | (HCC) (Primary Dx); | | | | [place] | [address] | 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 Patient reports he i s on Eliquis [...] Procedure: ERCP; Surgeon: Dc Naik MD; Location: [facility] PROC[facility]URE [facility] ERCP N/A 02/12/2018 Procedure: ERCP; Surgeon: Dc Naik MD; Location: [facility] PROC[facility] FRACTURE SURGERY 2011 skull/facial HARDWARE REMOVAL Right Hardware placement and removal thumb HERNIA REPAIR pt has 2 hernia repairs and 3rd revision on 12-18-14 hip screw removed Right 2013 Nasal reconstruction 1977 right hip/pelvis surgery 2012 [facility] 2011 UPPER GASTROINTESTINAL ENDOSCOPY UPPER GASTROINTESTINAL ENDOSCOPY N/A 10/23/2015 Procedure: EGD; Surgeon: Adrian Aponte MD; Location: [facility] PROC[facility]URE [facility] UPPER GASTROINTESTINAL ENDOSCOPY N/A 11/18/2017 Procedure: EGD; Surgeon: Adrian Aponte MD; Location: [facility] PROC[facility]URE [facility] XR LUMBAR SPINE [...] CV: No peripheral edema, rate regular SKIN: [place], warm, dry without rash/lesion MS: ROM not [...] Attending Note: Documentation assistance provided by Marie Linarse ([place]). Information leena rded by the scribe [...] SURGEON: | | | Rich [place] MD UPHOLSTERY CLEANER: None ANESTHESIA: Moderate sedation and local | [...] and | | | brought to the Electrotyper. The patient was placed supine on the [...] wire and up sized to a 6 Bhutanese sheath. A | | | Omni flush [...] identified and brought | | |to the Electrotyper. The patient was placed supine on the [...] | | |up sized to a 6 [place]utanese sheath. A Omni flush catheter was then [...]
--- OUTSIDE RECORDS SUMMARY | ~2020-01-31 | XMS | Encounter Summary ---
Demographics + + + | Address | [address] | | | [place] [address] | + + + | Home Phone [...] | Author | [facility] | | | and Alexana | + + + | Organization | [facility] | [...] [place] | | | | | [address] | | + + + + + Care Team Providers + +------+ + | Care Diamond Broker Name | Role | Phone | + +------+ + PCP | Unavailable | + +------+ + Encounter Details +--------+ + + + + | Date | Type | Department | Care Team | Description | +--------+ + + + + | 03/04/ | Hospital | [facility] | Conversion | Pain | | 2013 | Encounter | CONVERSION [address] | Transaction, | | | | | [address] | Provider Unknown | | | | | [place], [place] | | | | | | [address] | (Fax) | | | | | [phone] | | | +--------+ + + + [...]
--- OUTSIDE RECORDS SUMMARY | ~2020-01-31 | XMS | Encounter Summary ---
Demographics + + + | Address | [address] | | | [place] [address] | + + + | Home Phone [...] Author | [facility] | | | and Alexana | + + + | Organization | [facility] [...] [place] | | | | | [address] | | + + + + + Care Team Providers + +------+ + | Care Supervisor Audit Clerks Name | Role | Phone | + [...] | +--------+ + + + + | 01/04/ | Telephone | [facility] | Adrian Aponte MD | Medication Refill | | 2018 | | GASTROENTEROLOGY | [address] [facility] | Assistance | | | | [address] [facility] | [place], [place] | | | | | [address] [place], [place] | [address] | | | | | [address] | [phone] | | | | | [phone] | | | +--------+ + + + [...]
--- OUTSIDE RECORDS SUMMARY | ~2020-01-31 | XMS | Encounter Summary ---
Demographics + + + | Address | [address] | | | [place] [address] | + + + | Home Phone [...] Author | [facility] | | | and Alexana | + + + | Organization | [facility] | | | [...] [place] | | | | | [address] | | + + + + + Care Team Providers + +------+ + | Care Manager Social Name | Role | Phone | + +------+ + | Allison Fairchild NP | PCP | | + +------+ + Encounter Details +--------+ + + + + | Date | Type | Department | Care Team | Description | +--------+ + + + + | 01/27/ | Orders Only | [facility] | Nancie Villalta, | | | 2018 | | CONVERSION [address] | MD [address] | | | | | [address] | [place] | | | | | [facility] [place] [place] | [address] | | | | | [address] | | | | | | [phone] | | | +--------+ + + + [...] | + +--------+ + + + | ECHO INTERPRETATION | Routin | 01/27/2018 | | Results for this | | OF OUTSIDE FILMS | e | 3:57 PM | | procedure are in the | | | | PDT | | results section. | + +--------+ + + + documented in this encounter Results ECHO Interpretation of Outside Films (01/27/2018 3:57 PM PDT) + + | Specimen | + + | | + + + + + | Impressions | Performed At | + + + | 1. The left ventricle is normal in size, wall thickness and systolic | | | function EF 60-65%. 2. The right ventricle is normal in size and | | | function. 3. No significant valvular pathology. 4. There is no | | | pericardial effusion. 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 The left ventricle is normal | | | in size, wall thickness and systolic function EF 60-65%. 2. The | | | right ventricle is normal in size and function. 3. No significant | | | valvular pathology. 4. There is no pericardial effusion. FINDINGS | | | -------- ECG rhythm: Sinus rhythm. Study: A 2-dimensional | | | transthoracic echocardiogram with m-mode, spectral and color flow | | | Doppler was perfomed. Study: This was a technically adequate study. | | | Left Ventricle: Overall left ventricular systolic function is normal | | | with, an EF between 60 - 65 %. Left Ventricle: The left ventricle | | | cavity size is normal. Left Ventricle: Left ventricular wall | | | thickness is normal. Left Ventricle: No regional wall motion | | | abnormalities. Left Ventricle: The diastolic filling pattern is | | | normal for the age of the patient. Right Ventricle: The right | | | ventricle is normal in size and function. Left Atrium: The left | | | atrium is normal in size. Right Atrium: The right atrium is normal in | | | size. Aortic Valve: The aortic valve appears to be trileaflet. | | | Aortic Valve: There is no evidence of aortic regurgitation. Aortic | | | Valve: There is no evidence of aortic stenosis. Mitral Valve: The | | | mitral valve is normal. Mitral Valve: No mitral regurgitation. | | | Tricuspid Valve: The tricuspid valve appears structurally normal. | | | Tricuspid Valve: Pulmonary artery systolic pressure could not be | | | assessed due to the absence of adequate TR jet. Pulmonic Valve: The | | | pulmonic valve is normal. Pulmonic Valve: Trace pulmonic | | | regurgitation. Pulmonic Valve: No significant valvular pathology. | | | Pericardium: There is no pericardial effusion. Pericardium: No | | | pleural effusion seen. IVC/Hepatic Veins: The IVC is normal size | | | (1.5-2.5cm) and collapses >50% with sniff, consistent with central | | | venous pressures of 5-10mmHg. Aorta: The aortic root, ascending aorta | | | and aortic arch are normal in size. Thrombus: No clot visualized | | | MEASUREMENTS Ao asc: 2.83 cm Ao Diam: 3.32 cm | | | Ao sinus: 3.[address] junct: 2.91 cm IVC: 1.60 cm LA | | | Diam: 3.79 cm LA Major: 5.13 cm EDV(Teich): 124.74 ml | | | IVSd: 0.95 cm LVIDd: 5.11 cm LVPWd: 0.89 cm LVOT Area: | | | 3.74 cm2 LVOT Diam: 2.18 cm %FS: 37.07 % EF(Teich): 66.67 | | | % ESV(Teich): 41.57 ml LVIDs: 3.21 cm SV(Teich): 83.16 ml | | | RV Major: 8.17 cm RVIDd: 3.19 cm LVEF MOD A2C: 57.96 % SV | | | MOD A2C: 65.28 ml LVEF MOD A4C: 61.77 % SV MOD A4C: 57.74 | | | ml EF Biplane: 59.66 % LVEDV MOD BP: 107.99 ml LVESV MOD BP: | | | 43.55 ml LVEDV MOD A2C: 112.63 ml LVLd A2C: 8.99 cm LVEDV | | | MOD A4C: 93.47 ml LVLd A4C: 8.06 cm LVESV MOD A2C: 47.34 ml | | | LVLs A2C: 7.27 cm LVESV MOD A4C: 35.73 ml LVLs A4C: 6.43 | | | cm LAESV(A-L): 62.96 ml LAESV Index (A-L): 29.42 ml/m2 LAAs | | | A2C: 20.20 cm2 LAESV A-L A2C: 67.49 ml LALs A2C: 5.13 cm | | | LAAs A4C: 18.84 cm2 LAESV A-L A4C: 54.93 ml LALs A4C: 5.48 | | | cm RAAs: 16.81 cm2 RAESV A-L: 48.33 ml RAESV MOD: 46.23 ml | | | RALs: 4.96 cm TAPSE: 2.69 cm AV maxP.02 mmHg AV | | | meanP.05 mmHg AV Vmax: 1.32 m/s AV Vmean: 0.81 m/s AV | | | VTI: 23.45 cm ARI Vmax: 3.31 cm2 ARI (VTI): 3.75 cm2 AVAI | | | Vmax: 0.00 cm2/m2 AVAI (VTI): 0.00 cm2/m2 LVOT maxP.51 | | | mmHg LVOT meanP.59 mmHg LVSI Dopp: 41.16 ml/m2 LVSV Dopp: | | | 88.08 ml LVOT Vmax: 1.17 m/s LVOT Vmean: 0.75 m/s LVOT | | | VTI: 23.52 cm MV A Tano: 0.72 m/s MV DecT: 191.68 ms MV E | | | Tano: 0.91 m/s MV E/A Ratio: 1.26 MV PHT: 55.58 ms MVA By | | | PHT: 3.95 cm2 Septal e': 0.07 m/s Septal E/e': 13.00 | | | Lateral e': 0.10 m/s Lateral E/e': 8.45 RAP: 5 mmHg | | | Body Mechanic Apprentice: Authenticated by: Ana Berger Report Date/Time: | | | 5-23-2018 17:57:39 | | + + + + + | Procedure Note | + + | Luis Long Conversion - 04/28/2019 3:53 PM PDT Patient Name: Shanna Cespedes of | | : 1960 Performing Physician: Ana | | Celine INDICATIONS------ | | -----Inpatient: Renal infarct, 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 The left | | ventricle is normal in size, wall thickness and systolic function EF 60-65%.2. The right | | ventricle is normal in size and function.3. No significant valvular pathology.4. There | | is no pericardial effusion. FINDINGS--------ECG rhythm: Sinus rhythm.Study: A | | 2-dimensional transthoracic echocardiogram with m-mode, spectral and color flow Doppler | | was perfomed.Study: This was a technically adequate study.Left Ventricle: Overall left | | ventricular systolic function is normal with, an EF between 60 - 65 %.Left Ventricle: | | The left ventricle cavity size is normal.Left Ventricle: Left ventricular wall thickness | | is normal.Left Ventricle: No regional wall motion abnormalities.Left Ventricle: The | | diastolic filling pattern is normal for the age of the patient.Right Ventricle: The | | right ventricle is normal in size and function.Left Atrium: The left atrium is normal in | | size.Right Atrium: The right atrium is normal in size.Aortic Valve: The aortic valve | | appears to be trileaflet.Aortic Valve: There is no evidence of aortic | | regurgitation.Aortic Valve: There is no evidence of aortic stenosis.Mitral Valve: The | | mitral valve is normal.Mitral Valve: No mitral regurgitation.Tricuspid Valve: The | | tricuspid valve appears structurally normal.Tricuspid Valve: Pulmonary artery systolic | | pressure could not be assessed due to the absence of adequate TR jet.Pulmonic Valve: The | | pulmonic valve is normal.Pulmonic Valve: Trace pulmonic regurgitation.Pulmonic Valve: | | No significant valvular pathology.Pericardium: There is no pericardial | | effusion.Pericardium: No pleural effusion seen.IVC/Hepatic Veins: The IVC is normal size | | (1.5-2.5cm) and collapses >50% with sniff, consistent with central venous pressures of | | 5-10mmHg.Aorta: The aortic root, ascending aorta and aortic arch are normal in | | size.Thrombus: No clot visualized MEASUREMENTS Ao asc: 2.83 cmAo Diam: | | 3.32 cmAo sinus: 3.[address] junct: 2.91 cmIVC: 1.60 cmLA Diam: 3.79 cmLA | | Major: 5.13 cmEDV(Teich): 124.74 mlIVSd: 0.95 cmLVIDd: 5.11 cmLVPWd: 0.89 | | cmLVOT Area: 3.74 [id number] Diam: 2.18 cm%FS: 37.07 %EF(Teich): 66.67 %ESV(Teich): | | 41.57 mlLVIDs: 3.21 cmSV(Teich): 83.16 mlRV Major: 8.17 cmRVIDd: 3.19 cmLVEF | | MOD A2C: 57.96 %SV MOD A2C: 65.28 mlLVEF MOD A4C: 61.77 %SV MOD A4C: 57.74 mlEF | | Biplane: 59.66 %LVEDV MOD BP: 107.99 mlLVESV MOD BP: 43.55 mlLVEDV MOD A2C: | | 112.63 mlLVLd A2C: 8.99 cmLVEDV MOD A4C: 93.47 mlLVLd A4C: 8.06 cmLVESV MOD A2C: | | 47.34 mlLVLs A2C: 7.27 cmLVESV MOD A4C: 35.73 mlLVLs A4C: 6.43 cmLAESV(A-L): | | 62.96 mlLAESV Index (A-L): 29.42 ml/m2LAAs A2C: 20.20 [id number] A-L A2C: 67.49 | | mlLALs A2C: 5.13 cmLAAs A4C: 18.84 [id number] A-L A4C: 54.93 mlLALs A4C: 5.48 | | cmRAAs: 16.81 [id number] A-L: 48.33 mlRAESV MOD: 46.23 mlRALs: 4.96 cmTAPSE: | | 2.69 cmAV maxP.02 mmHgAV meanP.05 mmHgAV Vmax: 1.32 m/Lacy Vmean: 0.81 | | m/Lacy VTI: 23.45 cmAVA Vmax: 3.31 cm2AVA (VTI): 3.75 [id number] Vmax: 0.00 | | cm2/m2AVAI (VTI): 0.00 cm2/m2LVOT maxP.51 mmHgLVOT meanP.59 mmHgLVSI Dopp: | | 41.16 ml/m2LVSV Dopp: 88.08 mlLVOT Vmax: 1.17 m/sLVOT Vmean: 0.75 m/sLVOT VTI: | | 23.52 cmMV A Tano: 0.72 m/sMV DecT: 191.68 msMV E Tano: 0.91 m/sMV E/A Ratio: | | 1.26MV PHT: 55.58 msMVA By PHT: 3.95 [id number] e': 0.07 m/sSeptal E/e': | | 13.00Lateral e': 0.10 m/sLateral E/e': 8.45RAP: 5 mmHg Body Mechanic Apprentice:Authenticated | | by: Ana ValenciaReport Date/Time: 01-27-2018 17:57:39 IMPRESSION: 1. The left | | ventricle is normal in size, wall thickness and systolic function EF 60-65%.2. The right | | ventricle is normal in size and function.3. No significant valvular pathology.4. There | | is no pericardial effusion. | |MEASUREMENTS | | | |Ao asc: 2.83 cm | |Ao Diam: 3.32 cm | |Ao sinus: 3.27 cm | |Ao st junct: 2.91 cm | |IVC: 1.60 cm | |LA Diam: 3.79 cm | |LA Major: 5.13 cm | |EDV(Teich): 124.74 ml | |IVSd: 0.95 cm | |LVIDd: 5.11 cm | |LVPWd: 0.89 cm | |LVOT Area: 3.74 cm2 | |LVOT Diam: 2.18 cm | |%FS: 37.07 % | |EF(Teich): 66.67 % | |ESV(Teich): 41.57 ml | |LVIDs: 3.21 cm | |SV(Teich): 83.16 ml | |RV Major: 8.17 cm | |RVIDd: 3.19 cm | |LVEF MOD A2C: 57.96 % | |SV MOD A2C: 65.28 ml | |LVEF MOD A4C: 61.77 % | |SV MOD A4C: 57.74 ml | |EF Biplane: 59.66 % | |LVEDV MOD BP: 107.99 ml | |LVESV MOD BP: 43.55 ml | |LVEDV MOD A2C: 112.63 ml | |LVLd A2C: 8.99 cm | |LVEDV MOD A4C: 93.47 ml | |LVLd A4C: 8.06 cm | |LVESV MOD A2C: 47.34 ml | |LVLs A2C: 7.27 cm | |LVESV MOD A4C: 35.73 ml | |LVLs A4C: 6.43 cm | |LAESV(A-L): 62.96 ml | |LAESV Index (A-L): 29.42 ml/m2 | |LAAs A2C: 20.20 cm2 | |LAESV A-L A2C: 67.49 ml | |LALs A2C: 5.13 cm | |LAAs A4C: 18.84 cm2 | |LAESV A-L A4C: 54.93 ml | |LALs A4C: 5.48 cm | |RAAs: 16.81 cm2 | |RAESV A-L: 48.33 ml | |RAESV MOD: 46.23 ml | |RALs: 4.96 cm | |TAPSE: 2.69 cm | |AV maxP.02 mmHg | |AV meanP.05 mmHg | |AV Vmax: 1.32 m/s | |AV Vmean: 0.81 m/s | |AV VTI: 23.45 cm | |ARI Vmax: 3.31 cm2 | |ARI (VTI): 3.75 cm2 | |AVAI Vmax: 0.00 cm2/m2 | |AVAI (VTI): 0.00 cm2/m2 | |LVOT maxP.51 mmHg | |LVOT meanP.59 mmHg | |LVSI Dopp: 41.16 ml/m2 | |LVSV Dopp: 88.08 ml | |LVOT Vmax: 1.17 m/s | |LVOT Vmean: 0.75 m/s | |LVOT VTI: 23.52 cm | |MV A Tano: 0.72 m/s | |MV DecT: 191.68 ms | |MV E Tano: 0.91 m/s | |MV E/A Ratio: 1.26 | |MV PHT: 55.58 ms | |MVA By PHT: 3.95 cm2 | |Septal e': 0.07 m/s | |Septal E/e': 13.00 | |Lateral e': 0.10 m/s | |Lateral E/e': 8.45 | |RAP: 5 mmHg | | | |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 The left ventricle is normal in size, wall thickness and systolic function EF 60-65%. | |2. The right ventricle is normal in size and function. | |3. No significant valvular pathology. | |4. There is no pericardial effusion. | + + documented in this encounter Visit Diagnoses Not on filedocumented in this encounter"
--- OUTSIDE RECORDS SUMMARY | ~2020-01-31 | XMS | Encounter Summary ---
Demographics + + + | Address | [address] | | | [place] [address] | + + + | Home Phone [...] Author | [facility] | | | and [place]ana | + + + | Organization | [facility] | | | and Alexana [...] [place] | | | | | [address] | | + + + + + Care Team Providers + +------+ + | Care Funeral Director And Embalmer Name | Role | Phone | + [...] [place] | | | | | [address] | [address] | | | | | [phone] | [phone] | | | | | | | [...] | | | | | | DETERMINEDBY [facility] | | | | | | DIVISION [...] | | | | | performed at [facility], [address] | | | | | | [facility] | | | | | | [place] [address] | | | | + + + [...]
--- OUTSIDE RECORDS SUMMARY | ~2020-01-31 | XMS | Encounter Summary ---
Demographics + + + | Address | [address] | | | [place] [address] | + + + | Home Phone [...] | [facility] | | | and [place]ana | + + + | Organization | [facility] | [...] [place] | | | | | [address] | | + + + + + Care Team Providers + +------+ + | Care Core Composer Machine Tender Name | Role | Phone [...] | | artery | [address] | [place], [place] | | | | | disease) | [place], [place] | [address] | | | | | ([facility]) | [address] | Phone: | | | | | Procedures | Phone: | [phone] | | | | | IR Stent | [phone] | Fax: | | | | | Iliac | Fax: | [phone] | | | | | | [phone] | | +--------+--------+ + + + + [...] | | | | | | | ([facility]) | | | | | | | Procedures | | | | | | | IR STENT | | | | | | | ILIAC | | | +--------+--------+ + + + + Encounter Details +--------+ + + + + | Date | Type | Department | Care Team | Description | +--------+ + + + + | 06/01/ | Hospital | [facility] | Rich Washington MD | PAD (peripheral | | 2019 - | Encounter | [facility] | [address] | artery disease) | | | | CARE FLOOR [address] | [place], [place] | ([facility]) | | 06/02/ | | [address] | [address] | | | 2019 | | [place], [place] | [phone] | | | | | [address] | | | | | | [phone] | | | +--------+ + + + [...] + | Blood Pressure | 172/96 | 06/02/2019 8:14 AM | | | | | PDT | | + + + + + | Pulse | 91 | 06/02/2019 8:14 AM | | | | | PDT | | + + + + + | Temperature | 36.6 C (97.8 F) | 06/02/2019 8:14 AM | | | | | PDT | | + + + + + | Respiratory Rate | 20 | 06/02/2019 8:14 AM | | | | | PDT | | + + + + + | Oxygen Saturation | 92% | 06/02/2019 8:14 AM | | | | | PDT | | + + + + + | Inhaled Oxygen | - | - | | | Concentration | | | | + + + + + | Weight | - | - | | + + + + + | Height | 180.3 cm (5' 11") | 06/01/2019 11:00 PM | | | [...] (sutures), avoid swimming or taking a bath [id number] after the p rocedure or until the [...] or shortness of breath Date Last Reviewed: 02/06/[id number] [employer]. [address] [place] [address]. All righ ts reserved. This information is [...] as of this encounter Progress Notes Shannan Tinajero RN - 06/01/2019 6:41 PM PDTNo fax received regarding transport. Patient an d family agreeable to discharging tomorrow AM. Significant other left VM with [facility] regarding ride in the morning. Dr. Washington notified. Telephone order for home med s gabapentin, lorazepam, robaxin, and magnesium. Shannan Chávez RN - 06/01/2019 3:43 PM PDTPer patient family pat ient arrived this morning by medical transport. Patient will not be able to discharge until later this evening, when transport is not available. Received call from [employer] [facility] [employer] that brought patient. She said they have the option of cynthia a local ambulance company. Received fax of form [id number] to be sent t o [employer]. After roberson is sent back we can forward to [facility] and they will approve or deny ride [...] for this | | | e | 2:34 PM | artery disease) | procedure are in the | | | | PDT | ([facility]) | results section. | + +--------+ + + + | CBC WITH | STAT | 06/01/2019 | | Results for this | | DIFFERENTIAL | | 12:50 PM | | procedure are in the | | | | PDT | | results section. | + +--------+ + + + | BASIC METABOLIC | STAT | 06/01/2019 | | Results for this | | PANEL | | 12:50 PM | | procedure are in the [...] SURGEON: | | | Rich Washington MD COMPONENT PREP OPERATOR: None ANESTHESIA: Moderate sedation and local [...] and | | | brought to the Mix Chemist. The patient was placed supine on the [...] wire and up sized to a 6 Czech sheath. A | | | Omni flush [...] identified and brought | | |to the Mix Chemist. The patient was placed supine on the [...] | | |up sized to a 6 Czech sheath. A Omni flush catheter was then [...] + + CBC with Differential (06/01/2019 12:50 PM PDT) + + + + + [...] (H)Comment: Testing | 0.00 - 0.10 | [facility] | | | Absolute | performed at [facility] [place];[address] | [address] | LABORATORY | | | | [address];[place] | | | | | | [address] | | | | + + + + + + + + | Specimen | + + | Blood | + + + + + + + | Performing | Address | City/State/Zipcode | Phone Number | | Organization | | | | + + + + + | [facility] | [address] | [place] [address] | [phone] | + + + + + Basic Metabolic Panel (06/01/2019 12:50 PM PDT) + + + + + [...] [place];[address] | | | | | | [address];[place] | | | | | | [address] | | | | + + + + + + + + | Specimen | + + | Blood | + + + + + + + | Performing | Address | City/State/Zipcode | Phone Number | | Organization | | | | + + + + + | [facility] | [address] | [place] [address] | [phone] | + + + + + documented [...] Oral, PRN, Starting 06/01/19 | | 19 2:26 | | | | | at 1426 | | PM PDT | | | | + +--------+ +--------+------+------+ +---+---+ | | | +---+---+ + +-------+ +---------+---+---+ | fentaNYL (PF) injection | Given | 06/01/20 | 100 mcg | | | | Intravenous, PRN, Starting Thu | | 19 2:05 | | | | | 06/01/19 at 1405 | | PM PDT | | | | + +-------+ +---------+---+---+ +---+---+ | | | +---+---+ + +-------+ +--------+---+---+ | gabapentin (NEURONTIN) capsule | Given | 06/02/20 | 600 mg | | | | 600 mg 600 mg, Oral, 2 TIMES | | 19 8:54 | | | | | DAILY, First dose on Thu06/01/19 | | AM PDT | | | | | at 2100 | | | | | | + +-------+ +--------+---+---+ +-------+ +--------+---+---+ | Given | 06/01/20 | 600 mg | | | | | 19 9:27 | | | | | | PM PDT | | | | +-------+ +--------+---+---+ +---+---+ | | | +---+---+ + +-------+ +--------+---+---+ | heparin 1,000 units/mL | Given | 06/01/20 | 5,000 | | | | injection Intravenous, PRN, | | 19 2:10 | Units | | | | Starting 06/01/19 at 1410 | | PM PDT | | | | + +-------+ +--------+---+---+ +---+---+ | | | +---+---+ + +-------+ + +---+---+ | HYDROcodone-acetaminophen | Given | 06/02/20 | 1 tablet | | | | (NORCO) 5-325 mg per tablet 1-2 | | 19 8:54 | | | | | tablet 1-2 tablet, Oral, EVERY 4 | | AM PDT | | | | | HOURS PRN, Pain, Starting Wed | | | | | | | 06/01/19 at 1419 | | | | | | + +-------+ + +---+---+ +-------+ + +---+---+ | Given | 06/02/20 | 1 tablet | | | | | 19 3:32 | | | | | | AM PDT | | | | +-------+ + +---+---+ | Given | 06/01/20 | 1 tablet | | | | | 19 2:54 | | | | | | PM PDT | | | | +-------+ + +---+---+ +---+---+ | | | +---+---+ + +-------+ +--------+---+---+ | iohexol (OMNIPAQUE 240) 240 | Given | 06/01/20 | 12 mLs | | | | mg/mL injection Intravenous, | | 19 2:19 | | | | | PRN, Starting 06/01/19 at 1419 | | PM PDT | | | | + +-------+ +--------+---+---+ +---+---+ | | | +---+---+ + +-------+ +--------+---+---+ | lidocaine 1% injection PRN, | Given | 06/01/20 | 10 mLs | | | | Starting Thu06/01/19 at 1405 | | 19 2:05 | | | | | | | PM [...] PRN, Nausea, Vomiting, Starting | | | 06/01/19 at 1443, Use if | | | ondansetron and prochlorperazine | | | ineffective after 30min or not | | | ordered, Post-op/Phase II | | + +---+ | | | + +---+ + +-------+ +------+---+---+ | midazolam (VERSED) injection | Given | 06/01/20 | 1 mg | | | | Intravenous, PRN, Starting Thu | | 19 2:05 | | | | | 06/01/19 at 1405 | | PM PDT | | | | + +-------+ +------+---+---+ + +---+ | | | + +---+ | ondansetron (ZOFRAN ODT) | | | disintegrating tablet 4 mg 4 mg, | | | Oral, EVERY 6 HOURS PRN, Nausea, | | | Vomiting, Starting 06/01/19 | | | at 1443, First line [...] infusion at 100 mL/hr, | | 19 1:10 | | mL/hr | | | Intravenous, CONTINUOUS, Starting | | PM PDT | | | | | Thu06/01/19 at 1300, Pre-op | | | | | | + +---------+ +---+-------+---+ +---+---+ | | | +---+---+ documented in this encounter
--- OUTSIDE RECORDS SUMMARY | ~2020-01-31 | XMS | Encounter Summary ---
Demographics + + + | Address | [address] | | | [place] [address] | + + + | Home Phone [...] | Author | [facility] | | | and Alexana | + + + | Organization | [facility] | | [...] [place] | | | | | [address] | | + + + + + Care Team Providers + +------+ + | Care Molder Apprentice Name | Role | Phone | + [...] | | | | dysphagia | | [place] [address] | | | | | Other | | Phone: | | | | | dysphagia | | [phone] | | | | | [R13.19]Unsp | | Fax: | | | | | ecified | | [phone] | | | | | abdominal | | | | | | | pain [R10.9] | | | +--------+--------+ + + + + Encounter Details +--------+---------+ + + + | Date | Type | Department | Care Team | Description | +--------+---------+ + + + | 10/23/ | Surgery | [facility] | Adrian Aponte MD | EGD | | 2016 | | MED CTR [facility] OP | [address] | | | | | [address] | [place] | | | | | [place] | [address] | | | | | [address] | [phone] | | | | | [phone] | | | +--------+---------+ + + + [...] the physician who did your procedure at [phone] if you have any questions or experience any of the following: ? Increasing abdominal pain, nausea, or vomiting. ? Chills and fever over 101F. ? New abdominal swelling or bloating. ? Signs of rectal bleeding (black or red stool). If you cannot get a hold of your physician, then call the [facility] [phone] . If necessary, report to the Emergency Department at [facility]. Quit smoking: If you smoke or have [...] 10/23/2015 | PROVATION | | 7:35 AMMRN: [id number] #: [id number] of : | | | 1960Admit Type: AmbulatoryAge: 54Room: [facility] 02Gender: MaleNote | | | Status: FinalizedAttending [...] the anesthesiologist and the | | | interactive video technician in the pre-procedure area in the [...] | | | AMScope Out: 8:09:58 AM [facility], [address] | | [place] [address] | | | patient. Return to normal [...] |Scope Out: 8:09:58 AM | | | [facility], [address] , [place], [place] | | | [address] | | + + -+ + +---------+ [...] - | | | Negative for dysplasia. [facility]:C2NR GROSS DESCRIPTION: | | | [...] Received in formalin | | | labeled "Erza Kalal" and "mid esophagus biopsy" on the requisition | | | are three santillan-brock tissue fragments measuring from 0.2-0.4 cm , | | | submitted, all in (C1). PERFORMING LABORATORY: Tissue processing | | | and slide preparation were performed by [facility], [address] | | [facility], [address], [place] [address] (Emission Specialist: Alex | | | Trevin Hathaway CLIA#: [id number]). Professional interpretation was | | | performed by [facility], [facility], | | | [address] [place] [address] (Emission Specialist: | | | Natan Carson M.D.; CLIA#: [id number]). Diagnostician: | | | Natan Carson MD [...]
--- OUTSIDE RECORDS SUMMARY | ~2020-01-31 | XMS | Encounter Summary ---
Demographics + + + | Address | [address] | | | [place] [address] | + + + | Home Phone | | + + + | Preferred Language | Unknown | + + + | Marital Status | | + + + | Latter Day Affiliation | 1013 | + + + | Race | Unknown | + + + | Ethnic Group | Unknown | + + + Author + + + | Author | [facility] | | | and Alexana | + + + | Organization | [facility] | | | and [...] [place] | | | | | [address] | | + + + + + Care Team Providers + +------+ + | Care Computing Consultant Name | Role | Phone | + +------+ + | Allison Fairchild NP | PCP | | + +------+ + Reason for Visit + + + | Reason | Comments | + + + | Appointment | Scheduled stent pull for February 12 | + + + Encounter Details +--------+ + + + + | Date | Type | Department | Care Team | Description | +--------+ + + + + | 01/26/ | Telephone | [facility] | Dc Naik MD | Appointment | | 2017 | | GASTROENTEROLOGY | [address], [place] | (Scheduled stent | | | | [address] [place] | [address] [place], [place] | pull for February 12) | | | | [address] [place], [place] | [address] | | | | | [address] | | | | | | [phone] | | | +--------+ + + + [...] + | Diagnosis | + + | Abnormal abdominal CT scan - Primary Nonspecific (abnormal) findings on radiological | | and other examination of abdominal area, including retroperitoneum | + + | Common bile duct stone Calculus of bile duct without mention of cholecystitis or | | obstruction | + + documented in this encounter"
--- OUTSIDE RECORDS SUMMARY | ~2020-01-31 | XMS | Encounter Summary ---
Demographics + + + | Address | [address] | | | [place] [address] | + + + | Home Phone | | + + + | Preferred Language | Unknown | + + + | Marital Status | | + + + | Taoist Affiliation | 1013 | + + + | Race | Unknown | + + + | Ethnic Group | Unknown | + + + Author + + + | Author | [facility] | | | and [place]ana | + + + | Organization | [facility] [...] [place] | | | | | [address] | | + + + + + Care Team Providers + +------+ + | Care Miller Apprentice Name | Role | Phone | [...] [place] | | | | | [address] | [address] | | | | | [phone] | [phone] | | | | | | | [...] | | | Basophils | performed at [facility];[address] | LAB | | | | [address] | [address] | | | | [address];[place] [address] | | | | + + + [...]
--- OUTSIDE RECORDS SUMMARY | ~2020-01-31 | XMS | Encounter Summary ---
Demographics + + + | Address | [address] | | | [place] [address] | + + + | Home Phone [...] Author | [facility] | | | and [place]ana | + + + | Organization | [facility] | | [...] [place] | | | | | [address] | | + + + + + Care Team Providers + +------+ + | Care Hydroelectric Powerplant Supervisor Name | Role | Phone | + +------+ + | Allison Fairchild NP | PCP | | + +------+ + Encounter Details +--------+ + + + + | Date | Type | Department | Care Team | Description | +--------+ + + + + | 05/31/ | Telephone | [facility] | Rich Washington MD | | | 2019 | | CENTER INTRA OP | [address] | | | | | [address] | [place], [place] | | | | | [place], [place] | [address] | | | | | [address] | [phone] | | | | | [phone] | | | +--------+ + + + [...]
--- OUTSIDE RECORDS SUMMARY | ~2020-01-31 | XMS | Encounter Summary ---
Demographics + + + | Address | [address] | | | [place] [address] | + + + | Home Phone [...] | Author | [facility] | | | and [place]ana | + + + | Organization | [facility] | | | and [...] [place] | | | | | [address] | | + + + + + Care Team Providers + +------+ + | Care Manager Report Name | Role | Phone | + [...] Description | +--------+--------+ + + + | 09/14/ | Refill | [facility] | Adrian Aponte MD | Medication Refill | | 2019 | | GASTROENTEROLOGY | [address] | | | | | [address] [facility] | [place], [place] | | | | | [address] [place] | [address] | | | | | [address] | [phone] | | | | | [phone] | | | +--------+--------+ + + + [...]
--- OUTSIDE RECORDS SUMMARY | ~2020-01-31 | XMS | Encounter Summary ---
Demographics + + + | Address | [address] | | | [place] [address] | + + + | Home Phone [...] | Author | [facility] | | | and [place] | + + + | Organization | [facility] [...] [place] | | | | | [address] | | + + + + + Care Team Providers + +------+ + | Care Mathematical Scientist Name | Role | Phone | + [...] [place] | | | | | [address] | [address] | | | | | [phone] | [phone] | | | | | | | [...] [place] | | | | | | [address] | | | | + + + [...]
--- OUTSIDE RECORDS SUMMARY | ~2020-01-31 | XMS | Encounter Summary ---
Demographics + + + | Address | [address] | | | [place] [address] | + + + | Home Phone | | + + + | Preferred Language | Unknown | + + + | Marital Status | | + + + | Adventist Affiliation | Unknown | + + + | Race | White | + + + | Ethnic Group | Not or | + + + Author + + + | Author | [facility] | + + + | Organization | [facility] | + + + | Address | Unknown | + + + | Phone | Unavailable | + + + Support + + +---------+ + | Name | Relationship | Address | Phone | + + +---------+ + | Maria Isabel Cespedes | ECON | Unknown | | + + +---------+ + Care Team Providers + +------+ + | Care Durability Engineer Name | Role | Phone | [...] | | | | | | [place], [address] [place] [address] | | | | | | [place], [place] | | | | | | [address] | | | | | | [phone] | | | +--------+------+ + + + [...] | + + + + + | [facility] | [address] | [place] [address] | | | SERVICES, CORE | PARK [...] by | | | | | | [address] | | | | | | [address] [place], [facility],[place] | | | | | | [address] | | | | | | [phone] | | | | | | Melecio agrawal MD, | | | | | | Lab. Director | | | | + + + + + + + + | Specimen | + + | Blood - Blood | | (substance) | + + + + + + + | Performing | Address | City/State/[facility] | Phone Number | | Organization | | | | + + + + + | [facility] | [address] | [place], [place] | | | [facility] | | [address] | | + + + + + [...] [facility] | [address] | [place] [address] | | | SERVICES, CORE | PARK [...] | | | LABORATORY | | | INDONESIAN | | | SERVICES, | | | [...] [facility] | [address] | [place] [address] | | | SERVICES, CORE | PARK [...] + + + + + | [facility] | [address] | [place] [address] | | | SERVICES, CORE | [address] | | | + + + + + documented in this encounter Visit Diagnoses + + | Diagnosis | + + | Renal artery stenosis (HCC) Atherosclerosis of renal artery | + + documented in this encounter"
--- OUTSIDE RECORDS SUMMARY | ~2020-01-31 | XMS | Encounter Summary ---
Demographics + + + | Address | [address] | | | [place] [address] | + + + | Home Phone [...] | Author | [facility] | | | and [place] | + + + | Organization | [facility] | | | and [...] [place] | | | | | [address] | | + + + + + Care Team Providers + +------+ + | Care Production Engineer Name | Role | Phone | [...] | +--------+ + + + + | 01/20/ | Telephone | [facility] | Adrian Aponte MD | Appointment | | 2018 | | GASTROENTEROLOGY | [address] | | | | | [address] [facility] | [place], [place] | | | | | [address] [place] [place] | [address] | | | | | [address] | [phone] | | | | | [phone] | | | +--------+ + + + [...]
--- OUTSIDE RECORDS SUMMARY | ~2020-01-31 | XMS | Encounter Summary ---
Demographics + + + | Address | [address] | | | [place] [address] | + + + | Home Phone [...] + | Author | [facility] | | | and [place]ana | + + + | Organization | [facility] | [...] [place] | | | | | [address] | | + + + + + Care Team Providers + +------+ + | Care Tar Roofer Name | Role | Phone | + [...] + | 11/18/ | Anesthesia | [facility] | Tre Mann, | | | 2017 | Event | MED CTR MP INTRA OP | DO [address] | | | | | [address] | [place] | | | | | [place] | [address] | | | | | [address] | | | | | | [phone] | | | +--------+ + + + [...] | 11/18/17926 by | | eral | [id number]-[id number] catheter system; | Shayna Mena RN | [...]
--- OUTSIDE RECORDS SUMMARY | ~2020-01-31 | XMS | Encounter Summary ---
Demographics + + + | Address | [address] | | | [place] [address] | + + + | Home Phone | | + + + | Preferred Language | Unknown | + + + | Marital Status | | + + + | Congregation Affiliation | 1013 | + + + | Race | Unknown | + + + | Ethnic Group | Unknown | + + + Author + + + | Author | [facility] | | | and [place] | + + + | Organization | [facility] | | | and [place] [...] [place] | | | | | [address] | | + + + + + Care Team Providers + +------+ + | Care Bench Lathe Operator Name | Role | Phone | [...] + + | 09/16/ | Telephone | [facility] | Adrian Aponte MD | Medication Refill | | 2019 | | GASTROENTEROLOGY | [address] [facility] | Assistance | | | | [address] [facility] | [place], [place] | | | | | [address] [place], [place] | [address] | | | | | [address] | [phone] | | | | | [phone] | | | +--------+ + + + [...]
--- OUTSIDE RECORDS SUMMARY | ~2020-01-31 | XMS | Encounter Summary ---
Demographics + + + | Address | [address] | | | [place] [address] | + + + | Home Phone [...] Author | [facility] | | | and [place] | + + + | Organization | [facility] | [...] [place] | | | | | [address] | | + + + + + Care Team Providers + +------+ + | Care Physician Gynecologist Name | Role | Phone | + [...] + | 12/09/ | Telephone | [facility] | Adrian Aponte MD | Results | | 2016 | | GASTROENTEROLOGY | [address] [facility] | | | | | [address] [facility] | [place], [place] | | | | | [address] [place] [place] | [address] | | | | | [address] | [phone] | | | | | [phone] | | | +--------+ + + + [...]
--- OUTSIDE RECORDS SUMMARY | ~2020-01-31 | XMS | Encounter Summary ---
Demographics + + + | Address | [address] | | | [place] [address] | + + + | Home Phone [...] | Author | [facility] | | | and [place] | + + + | Organization | [facility] [...] [place] | | | | | [address] | | + + + + + Care Team Providers + +------+ + | Care Cotton Candy Maker Name | Role | Phone | [...] [place] | | | | | [address] | [address] | | | | | [phone] | [phone] | | | | | | | [...] + | SEDIMENTATION RATE, | Routin | 01/01/2015 | | Results for this | | AUTOMATED | e | 2:15 PM | | procedure are in the | | | | PDT | | results section. | + +--------+ + + + documented in this encounter Results Sedimentation rate, automated (01/01/2015 2:15 PM PDT) + + + + + + | Component | Value | Ref Range | Performed | Pathologist | | | | | At | Signature | + + + + + + | Sed Rate | 68 (H)Comment: Testing | 0 - 20 mm/Hr | EXTERNAL | | | | performed at [facility];[address] | | LAB | | | | [place] | | | | | | [place] [address] | | | | + + + [...]
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
--- OUTSIDE RECORDS SUMMARY | ~2020-01-31 | XMS | Encounter Summary ---
Demographics + + + | Address | [address] | | | [place] [address] | + + + | Home Phone [...] + + | Author | [facility] | + + + | Organization | [facility] | + + + | Address | Unknown | + + + | Phone | Unavailable | + + + Support + + +---------+ + | Name | Relationship | Address | Phone | + + +---------+ + | Maria Isabel Cespedes | ECON | Unknown | | + + +---------+ + Care Team Providers + +------+ + | Care Strategic Procurement Manager Name | Role | Phone | [...] [address] | | | | | | [place], [place] | | | | | | [address] | | | +--------+ + + + [...]
--- OUTSIDE RECORDS SUMMARY | ~2020-01-31 | XMS | Encounter Summary ---
Demographics + + + | Address | [address] | | | [place] [address] | + + + | Home Phone [...] + | Author | [facility] | | | and [place] | + + + | Organization | [facility] | [...] [place] | | | | | [address] | | + + + + + Care Team Providers + +------+ + | Care Roll Sheeting Cutter Name | Role | Phone | + +------+ + | Allison Fairchild NP | PCP | | + +------+ + Encounter Details +--------+ + + + + | Date | Type | Department | Care Team | Description | +--------+ + + + + | 10/05/ | Orders Only | [facility] | Rd Bsuby MD | | | 2014 | | [address] | [address] | | | | | [place] | [place] | | | | | [address] | [address] | | | | | [phone] | [phone] | | | | | | | [...] [place] | | | | | | [address] | | | | + + + + + + | K | 4.8Comment: Testing | 3.5 - 4.9 | EXTERNAL | | | | performed at [facility] | mmol/L | LAB | | | | Health;[address] | | | | | | [place] | | | | | | [address] | | | | + + + + + + | Cl | 104Comment: Testing | 99 - 109 mmol/L | EXTERNAL | | | | performed at [facility] | | LAB | | | | Health;[address] | | | | | | [place] | | | | | | [address] | | | | + + + + + + | CO2 | 21 (L)Comment: Testing | 23 - 32 mmol/L | EXTERNAL | | | | performed at [facility] | | LAB | | | | Health;[address] | | | | | | [place] | | | | | | [address] | | | | + + + + + + | Anion Gap | 14Comment: Testing | 5 - 20 mmol/L | EXTERNAL | | | | performed at [facility] | | LAB | | | | Health;[address] | | | | | | [place] | | | | | | [address] | | | | + + + + + + | Glucose, | 93Comment: Testing | 65 - 99 mg/dL | EXTERNAL | | | Fasting | performed at [facility] | | LAB | | | | Health;[address] | | | | | | [place] | | | | | | [address] | | | | + + + + + + | BUN | 19Comment: Testing | 8 - 25 mg/dL | EXTERNAL | | | | performed at [facility] | | LAB | | | | Health;[address] | | | | | | [place] | | | | | | [address] | | | | + + + + + + | Creatinine | 0.7Comment: Testing | 0.70 - 1.30 | EXTERNAL | | | | performed at [facility] | mg/dL | LAB | | | | Health;[address] | | | | | | [place] | | | | | | [address] | | | | + + + + + + | BUN/Creatin | 27Comment: Testing | | EXTERNAL | | | ine Ratio | performed at [facility] | | LAB | | | | Health;[address] | | | | | | [place] | | | | | | [address] | | | | + + + + + + | Calcium | 8.7Comment: Testing | 8.5 - 10.2 | EXTERNAL | | | | performed at [facility] | mg/dL | LAB | | | | Health;[address] | | | | | | [place] | | | | | | [address] | | | | + + + + + + | Protein, | 6.4Comment: Testing | 6.3 - 8.2 g/dL | EXTERNAL | | | Total | performed at [facility] | | LAB | | | | Health;[address] | | | | | | [place] | | | | | | [address] | | | | + + + + + + | Albumin | 2.8 (L)Comment: Testing | 3.6 - 5.0 g/dL | EXTERNAL | | | | performed at [facility] | | LAB | | | | Health;[address] | | | | | | [place] | | | | | | [address] | | | | + + + + + + | Globulin | 3.6Comment: Testing | 1.3 - 4.9 g/dL | EXTERNAL | | | | performed at [facility] | | LAB | | | | Health;[address] | | | | | | [place] | | | | | | [address] | | | | + + + + + + | A/G Ratio | 0.8 (L)Comment: Testing | 1.0 - 2.4 | EXTERNAL | | | | performed at [facility] | | LAB | | | | Health;[address] | | | | | | [place] | | | | | | [address] | | | | + + + + + + | Bilirubin | 0.2Comment: Testing | 0.1 - 1.5 mg/dL | EXTERNAL | | | Total | performed at [facility] | | LAB | | | | Health;[address] | | | | | | [place] | | | | | | [address] | | | | + + + + + + | ALP, | 102Comment: Testing | 35 - 115 U/L | EXTERNAL | | | External | performed at [facility] | | LAB | | | | Health;[address] | | | | | | [place] | | | | | | [address] | | | | + + + + + + | AST | 49 (H)Comment: Testing | 10 - 45 U/L | EXTERNAL | | | | performed at [facility] | | LAB | | | | Health;[address] | | | | | | [place] | | | | | | [address] | | | | + + + + + + | ALT | 57Comment: Testing | 10 - 65 U/L | EXTERNAL | | | | performed at [facility] | | LAB | | | | Health;[address] | | | | | | [place] | | | | | | [address] | | | | + + + [...] | | | | | | at [facility];[address] | | | | | | [place] | | | | | | [address] | | | | + + + [...]
--- OUTSIDE RECORDS SUMMARY | ~2020-01-31 | XMS | Encounter Summary ---
Demographics + + + | Address | [address] | | | [place] [address] | + + + | Home Phone | | + + + | Preferred Language | Unknown | + + + | Marital Status | | + + + | Cheondoism Affiliation | 1013 | + + + | Race | Unknown | + + + | Ethnic Group | Unknown | + + + Author + + + | Author | [facility] | | | and [place] | + + + | Organization | [facility] | [...] [place] | | | | | [address] | | + + + + + Care Team Providers + +------+ + | Care Airplane Charter Clerk Name | Role | Phone | [...] | [address] | [place], [place] | | | | | [address] [place] [place] | [address] | | | | | [address] | [phone] | | | | | [phone] | | | +--------+ + + + [...]
--- OUTSIDE RECORDS SUMMARY | ~2020-01-31 | XMS | Encounter Summary ---
Demographics + + + | Address | [address] | | | [place] [address] | + + + | Home Phone | | + + + | Preferred Language | Unknown | + + + | Marital Status | | + + + | Alevism Affiliation | 1013 | + + + | Race | Unknown | + + + | Ethnic Group | Unknown | + + + Author + + + | Author | [facility] | | | and [place] | + + + | Organization | [facility] | | [...] | | | [facility] [place] | | | | | [address] | | + + + + + Care Team Providers + +------+ + | Care Cinnamon Grinder Name | Role | Phone | + [...] | | | | [address] | [place], [place] | | | | | [address] [place] | [address] | | | | | [address] | [phone] | | | | | [phone] | | | +--------+ + + + [...] + + + + + + | Albumin/Epggy | 1.1 | 1.1 - 2.4 | [...] ST. | [address] | [place] | | | [facility] | | [address], [facility] | | | - LABORATORY | [...]
--- OUTSIDE RECORDS SUMMARY | ~2020-01-31 | XMS | Encounter Summary ---
Demographics + + + | Address | [address] | | | [place] [address] | + + + | Home Phone | | + + + | Preferred Language | Unknown | + + + | Marital Status | | + + + | Buddhist Affiliation | Unknown | + + + [...] Team Providers + +------+ + | Care Meeting Facilitator Name | Role | Phone | + [...] [place] | | | | | [address] | [facility] | | | | | Loop Physician's | [place], [place] | | | | | [place], [address] | [address] | | | | | [place], [place] | [phone] | | | | | [address] | | | | | | [phone] | | | +--------+ + + + [...]
--- OUTSIDE RECORDS SUMMARY | ~2020-01-31 | XMS | Encounter Summary ---
Demographics + + + | Address | [address] | | | [place] [address] | + + + | Home Phone [...] | Author | [facility] | | | and [place] | + + + | Organization | [facility] [...] [place] | | | | | [address] | | + + + + + Care Team Providers + +------+ + | Care Electrical Maintenance Technician Name | Role | Phone | [...] [place] | | | | | [address] | [address] | | | | | [phone] | [phone] | | | | | | | [...] + + | MAGNESIUM | Routin | 10/05/2013 | | Results for this | | | e | 4:21 AM | | procedure are in the | | | | PST | | results section. | + +--------+ + + + documented in this encounter Results Magnesium (10/05/2013 4:21 AM PST) + + + + + + | Component | Value | Ref Range | Performed | Pathologist | | | | | At | Signature | + + + + + + | Magnesium | 1.5 (L)Comment: Testing | 1.7 - 2.4 mg/dL | EXTERNAL | | | | performed at [facility] | | LAB | | | | Health;[address] | | | | | | [place] | | | | | | [address] | | | | + + + + + + + + | Specimen | + + | | + + + + + | Narrative | Performed At | + + + | Attending/Primary Provider: JALEESA MD, Felicia MCAMHAN, , DERICK, | EXTERNAL LAB | + + + + +---------+ + + | Performing | Address | City/State/Zipcode | Phone Number | | Organization | | | | + +---------+ + + | EXTERNAL LAB | | | | + +---------+ + + documented in this encounter Visit Diagnoses Not on filedocumented in this encounter"
--- OUTSIDE RECORDS SUMMARY | ~2020-01-31 | XMS | Encounter Summary ---
Demographics + + + | Address | [address] | | | [place] [address] | + + + | Home Phone [...] | Author | [facility] | | | and [place] | + + + | Organization | [facility] | [...] [place] | | | | | [address] | | + + + + + Care Team Providers + +------+ + | Care Billing And Quality Technician Name | Role | Phone | [...] + + | 01/26/ | Telephone | [facility] | Dc Naik MD | Appointment | | 2017 | | GASTROENTEROLOGY | [address], [place] | (Scheduled stent | | | | [address] [place] | [address] [place], [place] | pull for February 12) | | | | [address] [place], [place] | [address] | | | | | [address] | | | | | | [phone] | | | +--------+ + + + [...]
--- OUTSIDE RECORDS SUMMARY | ~2020-01-31 | XMS | Encounter Summary ---
Demographics + + + | Address | [address] | | | [place] [address] | + + + | Home Phone | | + + + | Preferred Language | Unknown | + + + | Marital Status | | + + + | Presybeterian Affiliation | 1013 | + + + | Race | Unknown | + + + | Ethnic Group | Unknown | + + + Author + + + | Author | [facility] | | | and [place] | + + + | Organization | [facility] [...] [place] | | | | | [address] | | + + + + + Care Team Providers + +------+ + | Care Jewelry Sales Name | Role | Phone | + +------+ + | Allison Fairchild NP | PCP | | + +------+ + Reason for Visit +--------+ + | Reason | Comments | +--------+ + | Other | Labs from [facility] 08/29/2019(CBC,CMP,ESR,CRP).. | +--------+ + Encounter Details +--------+ + + + + | Date | Type | Department | Care Team | Description | +--------+ + + + + | 09/06/ | Documentati | [facility] | Lesa Dodd, | Other (Labs from | | 2019 | on | INFECTIOUS DISEASE | [place] | [facility] | | | | [address] | | 08/29/2019(CBC,CMP,E | | | | [place] | | SR,CRP)..) | | | | [address] | | | | | | [phone] | | | +--------+ + + + [...] documented as of this encounter Progress Notes Lesa Dodd, [place] - 09/06/2019 2:12 PM PSTLabs from [facility] DOS 08/08(CBC,CMP,ESR,CRP).. RECEIVED: 09/05/2019 Labs were abstracted into [facility] and sent to scan. Nicolette CMA. P STdocumented in this encounter Plan of Treatment Not on filedocumented as of this encounter Procedures + +--------+ + + + | Procedure Name | Priori | Date/Time | Associated Diagnosis | Comments | | | ty | | | | + +--------+ + + + | CBC W/AUTO | Routin | 08/29/2019 | | Results for this | | DIFFERENTIAL | e | | | procedure are in the | | | | | | results section. | + +--------+ + + + | SEDIMENTATION RATE | Routin | 08/29/2019 | | Results for this | | | e | | | procedure are in the | | | | | | results section. | + +--------+ + + + | C-REACTIVE PROTEIN | Routin | 08/29/2019 | | Results for this | | | e | | | procedure are in the | | | | | | results section. | + +--------+ + + + | COMPREHENSIVE | Routin | 08/29/2019 | | Results for this | | METABOLIC PANEL | e | | | procedure are in the | | | | | | results section. | + +--------+ + + + documented in this encounter Results C-Reactive Protein (08/29/2019) + + + + + + | Component | Value | Ref Range | Performed | Pathologist | | | | | At | Signature | + + + + + + | CRP | 26.8 (A) | 0 - 5 mg/L | REFERENCE | | | | | | LAB | | | | | | [facility] | | | | | | [facility]KR | | + + + + + + + + | Specimen | + + | Blood | + + + + + + + | Performing | Address | City/State/Zipcode | Phone Number | | Organization | | | | + + + + + | REFERENCE LAB | [address] | [place] | [phone] | | [place] [facility] [place] | | [address] | | + + + + + Sedimentation Rate (08/29/2019) + +--------+ + + + | Component | Value | Ref Range | Performed | Pathologist | | | | | At | Signature | + +--------+ + + + | Erythrocyte | 29 (A) | 0 - 15 mm/hr | REFERENCE | | | | | | LAB | | | Sedimentati | | | [facility] - | | | on Rate | | | BKR | | + +--------+ + + + + + | Specimen | + + | Blood | + + + + + + + | Performing | Address | City/State/Zipcode | Phone Number | | Organization | | | | + + + + + | REFERENCE LAB | [address] | [place] | [phone] | | [place] [facility] [place] | | [address] | | + + + + + Comprehensive Metabolic Panel (08/29/2019) + +---------+ + + + | Component | Value | Ref Range | Performed | Pathologist | | | | | At | Signature | + +---------+ + + + | Na | 140 | 132 - 143 | REFERENCE | | | | | mmol/L | LAB | | | | | | [facility] | | | | | | BKR | | + +---------+ + + + | K | 4.1 | 3.6 - 5.1 | REFERENCE | | | | | mmol/L | LAB | | | | | | [facility] | | | | | | BKR | | + +---------+ + + + | Cl | 106 | 95 - 112 mmol/L | REFERENCE | | | | | | LAB | | | | | | [facility] | | | | | | BKR | | + +---------+ + + + | CO2 | 25 | 19 - 31 mmol/L | REFERENCE | | | | | | LAB | | | | | | [facility] | | | | | | BKR | | + +---------+ + + + | Anion Gap | 13 | 7 - 21 mmol/L | REFERENCE | | | | | | LAB | | | | | | [facility] | | | | | | BKR | | + +---------+ + + + | Glucose | 95 | 70 - 100 mg/dL | REFERENCE | | | | | | LAB | | | | | | [facility] | | | | | | BKR | | + +---------+ + + + | BUN | 16 | 6 - 23 mg/dL | REFERENCE | | | | | | LAB | | | | | | [facility] | | | | | | BKR | | + +---------+ + + + | Creatinine | 0.76 | 0.70 - 1.33 | REFERENCE | | | | | | LAB | | | | | | [facility] | | | | | | BKR | | + +---------+ + + + | GFR | 105 | | REFERENCE | | | ESTIMATE | | | LAB | | | (REF) | | | [facility] | | | | | | BKR | | + +---------+ + + + | BUN/Creatin | 19.7 | 6.0 - 28.6 | REFERENCE | | | ine Ratio | | | LAB | | | | | | [facility] - | | | | | | BKR | | + +---------+ + + + | Calcium | 8.7 | 8.5 - 10.3 | REFERENCE | | | | | | LAB | | | | | | [facility] | | | | | | BKR | | + +---------+ + + + | AST | 15 | 13 - 39 U/L | REFERENCE | | | | | | LAB | | | | | | [facility] | | | | | | BKR | | + +---------+ + + + | ALT | 10 | 7 - 52 U/L | REFERENCE | | | | | | LAB | | | | | | [facility] | | | | | | BKR | | + +---------+ + + + | Alkaline | 126 (A) | 31 - 120 U/L | REFERENCE | | | Phosphatase | | | LAB | | | | | | [facility] | | | | | | BKR | | + +---------+ + + + | Bilirubin | 0.2 | 0.0 - 1.2 mg/dL | REFERENCE | | | Total | | | LAB | | | | | | [facility] | | | | | | BKR | | + +---------+ + + + | Total | 6.2 | 6.0 - 8.3 g/dL | REFERENCE | | | Protein | | | LAB | | | | | | [facility] - | | | | | | BKR | | + +---------+ + + + | Albumin | 3.6 | 3.5 - 6.0 g/dL | REFERENCE | | | | | | LAB | | | | | | [facility] | | | | | | BKR | | + +---------+ + + + | Globulin | 2.6 | 1.8 - 3.5 | REFERENCE | | | | | | LAB | | | | | | [facility] | | | | | | BKR | | + +---------+ + + + | A/G Ratio | 1.4 | 1.1 - 2.4 | REFERENCE | | | | | | LAB | | | | | | [facility] | | | | | | BKR | | + +---------+ + + + + + | Specimen | + + | Blood | + + + + + + + | Performing | Address | City/State/Zipcode | Phone Number | | Organization | | | | + + + + + | REFERENCE LAB | [address] | [place] | [phone] | | [facility] | | [address] | | + + + + + CBC w/ Auto Differential (08/29/2019) + + + + + + | Component | Value | Ref Range | Performed | Pathologist | | | | | At | Signature | + + + + + + | WBC, | 9.5 | 4.5 - 11.00 | REFERENCE | | | External | | K/uL | LAB | | | | | | [facility] | | | | | | BKR | | + + + + + + | RBC, | 4.28 (A) | 4.3 - 5.7 M/uL | REFERENCE | | | External | | | LAB | | | | | | [facility] | | | | | | BKR | | + + + + + + | HGB, | 12.4 (A) | 13.6 - 18.0 | REFERENCE | | | External | | g/dL | LAB | | | | | | [facility] | | | | | | BKR | | + + + + + + | HCT, | 38.0 (A) | 41 - 50 % | REFERENCE | | | External | | | LAB | | | | | | [facility] | | | | | | BKR | | + + + + + + | MCV | 88.8 | 81 - 99 fl | REFERENCE | | | | | | LAB | | | | | | [facility] | | | | | | BKR | | + + + + + + | RDW | 16.3 (A) | 10.5 - 15.0 % | REFERENCE | | | | | | LAB | | | | | | [facility] | | | | | | BKR | | + + + + + + | MCH | 29 | 27 - 33 pg | REFERENCE | | | | | | LAB | | | | | | [facility] | | | | | | BKR | | + + + + + + | MCHC | 33 | 30 - 36 g/dL | REFERENCE | | | | | | LAB | | | | | | [facility] | | | | | | BKR | | + + + + + + | Neutrophils | 58.3 | 39 - 80 % | REFERENCE | | | %, | | | LAB | | | External | | | [facility] - | | | | | | BKR | | + + + + + + | Lymphocytes | 28.4 | 24 - 44 % | REFERENCE | | | %, | | | LAB | | | External | | | [facility] | | | | | | BKR | | + + + + + + | Monocytes | 9.2 | 0 - 12 % | REFERENCE | | | %, External | | | LAB | | | | | | [facility] | | | | | | BKR | | + + + + + + | Eosinophils | 2.9 | 0 - 6 % | REFERENCE | | | %, | | | LAB | | | External | | | [facility] | | | | | | BKR | | + + + + + + | Basophils | 1.2 | 0 - 2 % | REFERENCE | | | %, External | | | LAB | | | | | | [facility] | | | | | | BKR | | + + + + + + | PLT, | 376 | 140 - 440 K/uL | REFERENCE | | | External | | | LAB | | | | | | [facility] - | | | | | | BKR | | + + + + + + + + | Specimen | + + | Blood | + + + + + + + | Performing | Address | City/State/Zipcode | Phone Number | | Organization | | | | + + + + + | REFERENCE LAB | [address] | [place] | [phone] | | [place] | | [address] | | + + + + + documented in this encounter Visit Diagnoses Not on filedocumented in this encounter"
--- OUTSIDE RECORDS SUMMARY | ~2020-01-31 | XMS | Encounter Summary ---
Demographics + + + | Address | [address] | | | [place] [address] | + + + | Home Phone | | + + + | Preferred Language | Unknown | + + + | Marital Status | | + + + | Congregation Affiliation | Unknown | + + + | Race | White | + + + | Ethnic Group | Not or | + + + Author + + + | Author | [facility] | + + + | Organization | [facility] | + + + | Address | Unknown | + + + | Phone | Unavailable | + + + Support + + +---------+ + | Name | Relationship | Address | Phone | + + +---------+ + | Maria Isabel Cespedes | ECON | Unknown | | + + +---------+ + Care Team Providers + +------+ + | Care Laboratory Operations Coordinator Name | Role | Phone | + +------+ + | Allison Fairchild TABLE MACHINE OPERATOR | PCP | | + +------+ + [...] | [address] | Dorian Khanna [facility] | | | | | ([facility]) | [facility], | | | | | Procedures | Rd | 10th Floor | | | | | CTA ABDOMEN | [place], [place] | [place], [place] | | | | | [address] | [address] | [address] | | | | | IV CONTRAST | Phone: | Phone: | | | | | [place] | [phone] | [phone] | | | | | ANGIO, ABD | Fax: | Fax: | | | | | AND PELVS | [phone] | [phone] | | | | | INCL IMAG [...] [place] | | | | | [address] | [address] | | | | | Loop Physician's | [place], [place] | | | | | [place], [address] Floor | [address] | | | | | [place], [place] | [phone] | | | | | [address] | | | | | | [phone] | | | +--------+ + + + [...] by | | | | | | [address] | | | | | | [place] [place], [facility],[place] | | | | | | [address] | | | | | | [phone].flipClass. | | | | | | Melecio [...] [facility] | [address] | [place], [place] | | | [facility] | | [address] | | + + + + + [...] | + + + + + | [facility] | [address] | [place] [address] | | | SERVICES, CORE | PARK [...] | | | LABORATORY | | | [place] | | | SERVICES, | | [...] MDRD equation recommended by the National | [facility] | | Kidney Disease Education Program. Estimated GFR Interpretive | LABORATORY | | Information: <60 mL/min/1.73 sq m Chronic Kidney | SERVICES, [facility] | | Disease <15 mL/min/1.73 sq m [...] | + + + + + | [facility] | [address] | [place] [address] | | | ORTEGA BOOGIE | DORIAN [...] | + + + + + | [facility] | [address] | [place] [address] | | | [place]OOGIE | DORIAN [...] Note | + + | Service Account, [employer] Res In Interface - 03/12/2019 1:33 PM [...]
--- OUTSIDE RECORDS SUMMARY | ~2020-01-31 | XMS | Encounter Summary ---
Demographics + + + | Address | [address] | | | [place] [address] | + + + | Home Phone [...] Author | [facility] | | | and [place] | + + + | Organization | [facility] | | [...] [place] | | | | | [address] | | + + + + + Care Team Providers + +------+ + | Care Hat Braider Name | Role | Phone | + [...] | | | | | | [address] [place], [place] | | | | | | [address] | | | | | | [phone] | | | +--------+ + + + [...]
--- OUTSIDE RECORDS SUMMARY | ~2020-01-31 | XMS | Encounter Summary ---
Demographics + + + | Address | [address] | | | [place] [address] | + + + | Home Phone | | + + + | Preferred Language | Unknown | + + + | Marital Status | | + + + | Anglican Affiliation | 1013 | + + + | Race | Unknown | + + + | Ethnic Group | Unknown | + + + Author + + + | Author | [facility] | | | and [place] | + + + | Organization | [facility] | | | and [place] [...] [place] | | | | | [address] | | + + + + + Care Team Providers + +------+ + | Care Escalator Operator Name | Role | Phone | [...] [place] | | | | | [address] | [address] | | | | | [phone] | [phone] | | | | | | | [...] EXTERNAL | | | | performed at [facility] | | LAB | | | | Health;[address] | | | | | | [place] | | | | | | [id number] | | | | + + + [...]
--- OUTSIDE RECORDS SUMMARY | ~2020-01-31 | XMS | Encounter Summary ---
Demographics + + + | Address | [address] | | | [place] [address] | + + + | Home Phone [...] + + + | Author | [facility] | + + + | Organization | [facility] | + + + | Address | Unknown | + + + | Phone | Unavailable | + + + Support + + +---------+ + | Name | Relationship | Address | Phone | + + +---------+ + | Maria Isabel Cespedes | ECON | Unknown | | + + +---------+ + Care Team Providers + +------+ + | Care Consulting Application Engineer Name | Role | Phone [...] CENTER | | | | | | [address] | | | | | | Vonda Khanna [facility] | | | | | | [address] | | | | | | [place], [place] | | | | | | [address] | | | | | | [phone] | | | +--------+ + + + [...]
--- OUTSIDE RECORDS SUMMARY | ~2020-01-31 | XMS | Encounter Summary ---
Demographics + + + | Address | [address] | | | [place] [address] | + + + | Home Phone | | + + + | Preferred Language | Unknown | + + + | Marital Status | | + + + | Taoism Affiliation | 1013 | + + + | Race | Unknown | + + + | Ethnic Group | Unknown | + + + Author + + + | Author | [facility] | | | and Alexana | + + + | Organization | [facility] | | | [...] [place] | | | | | [address] | | + + + + + Care Team Providers + +------+ + | Care Save All Operator Name | Role | Phone | + +------+ + | Allison Fairchild NP | PCP | | + +------+ + Encounter Details +--------+ + + + + | Date | Type | Department | Care Team | Description | +--------+ + + + + | 09/07/ | Anesthesia | [facility] | Chio [place], | | | 2019 | [facility] | MD [address] | | | | | ANESTHESIA [address] | [place] [address] | | | | | [address] | [phone] | | | | | [place], [place] | | | | | | [address] | | | | | | [phone] | | | +--------+ + + + [...]
--- OUTSIDE RECORDS SUMMARY | ~2020-01-31 | XMS | Encounter Summary ---
Demographics + + + | Address | [address] | | | [place] [address] | + + + | Home Phone [...] | Author | [facility] | | | and Alexana | + + + | Organization | [facility] | | | and [...] [place] | | | | | [address] | | + + + + + Care Team Providers + +------+ + | Care Escalator Installer Name | Role | Phone | [...] + + + | Closed | | | Diagnoses | Fadi | HAMM | | | | | Severe | MD Adrian | CARINE | | | | | nausea | [address] | | | | | Epigastric | [address]VD | [address] | | | | | pain | [place], [place] | AVE | | | | | Abdominal | [address] | [place], [place] | | | | | pain, | Phone: | [address] | | | | | unspecified | [phone] | Phone: | | | | | abdominal | Fax: | [phone] | | | | | location | [phone] | Fax: | | | | | Procedures | | [phone] | | | | | CT Abdomen | | | | | | | Pelvis w wo | | | | | | | Contrast | | | | | | | CHG CT | | | | | | | SCAN,ABDOMEN | | | | | | | T AND | | | | | | | PELVIS,COMBO | | | +--------+--------+ + + + + Reason for Visit + + + | Reason | Comments | + + + | Abdominal Pain | | + + + Evaluate & Treat (Routine) +--------+--------+ + + + + | Status | Reason | Specialty | Diagnoses / | Referred By | Referred To | | | | | Procedures | Contact | Contact | +--------+--------+ + + + + | Closed | | Gastroenterol | Diagnoses | Qi, | Fadi, | | | | ogy | Unspecified | Rd Mayen MD | MD Adrian | | | | | abdominal | [address] | [address] | | | | | pain | [place] | [place], | | | | | Chronic | Blvd | [place] [address] | | | | | hepatitis, | [place], | Phone: | | | | | unspecified | [place] [address] | [phone] | | | | | (HCC) | Phone: | Fax: | | | | | Nausea | [phone] | [phone] | | | | | Procedures | Fax: | | | | | | Office Visit | [phone] | | +--------+--------+ + + + + Encounter Details +--------+---------+ + + + | Date | Type | Department | Care Team | Description | +--------+---------+ + + + | 10/20/ | Office | [facility] | Adrian Aponte MD | Severe nausea | | 2018 | Visit | GASTROENTEROLOGY | [address] | (Primary Dx); | | | | [address] | [place], [place] | Epigastric pain; | | | | [address] [place], [place] | [address] | Dysphagia, | | | | [address] | [phone] | unspecified type; | | | | [phone] | | Narcotic dependence | | | | | | (HCC); | | | | | | Benzodiazepine | | | | | | dependence (HCC); | | | | | | Abdominal pain, | | | | | | unspecified | | | | | | abdominal location | +--------+---------+ + + + Social History [...] + + + | Blood Pressure | 122/86 | 10/20/2017 2:30 PM | | | | | PST | | + + + + + | Pulse | 68 | 10/20/2017 2:30 PM | | | | | PST | | + + + + + | Temperature | 36.5 C (97.7 F) | 10/20/2017 2:30 PM | | | | | PST | | + + + + + | Respiratory Rate | 16 | 10/20/2017 2:30 PM | | | | | PST | | + + + + + | Oxygen Saturation | 98% | 10/20/2017 2:30 PM | | | | | PST | | + + + + + | Inhaled Oxygen | - | - | | | Concentration | | | | + + + + + | Weight | 96.1 kg (211 lb 13.8 | 10/20/2017 2:30 PM | | | | oz) | PST | | + + + + + | Height | - | - | | + + + + + | Body Mass Index | 29.55 | 11/10/2016 3:07 PM | | | | | PST | | + + + + + documented in this encounter Progress Notes Anna Rodriguez RN - 10/20/2017 2:30 PM PSTScheduled for EGD prop on 11/16 [address] Domo Aponte; CT abdomen/pelvis with PO and IV contrast ordered and will call to schedule once ap proved, he would like done at [facility]; advised to hold PPI morning of procedure, 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 documented in this e ncounter Plan of Treatment + +---------+--------+ + + | Name | Type | Priori | Associated Diagnoses | Order Schedule | | | | ty | | | + +---------+--------+ + + | CT Abdomen Pelvis w | Imaging | Routin | Severe nausea | Expected: 10/20/2017 | | wo Contrast | | e | Epigastric pain | (Approximate), | | | | | Abdominal pain, | Expires: 10/20/2018 | | | | | unspecified | | | | | | abdominal location | | + +---------+--------+ + + documented as of this encounter Procedures + +--------+ + + + | Procedure Name | Priori | Date/Time | Associated Diagnosis | Comments | | | ty | | | | + +--------+ + + + | IMAGING REPORT - | | 11/05/2017 | | Results for this | | EXTERNAL SCAN | | 12:00 AM | | procedure are in the | | | | PST | | results section. | + +--------+ + + + | IMAGING REPORT - | | 11/05/2017 | | Results for this | | EXTERNAL SCAN | | 12:00 AM | | procedure are in the | | | | PST | | results section. | + +--------+ + + + documented in this encounter Results IMAGING REPORT - EXTERNAL SCAN (11/05/2017 12:00 AM PST) + + + | Narrative | Performed At | + + + | Ordered by an | | | unspecified provider. | | + + + IMAGING REPORT - EXTERNAL SCAN (11/05/2017 12:00 AM PST) + + + | Narrative | Performed At | + + + | Ordered by an | | | unspecified provider. | | + + + documented in this encounter Visit Diagnoses + + | Diagnosis | + + | Severe nausea - Primary | + + | Epigastric pain Abdominal pain, epigastric | + + | Dysphagia, unspecified type | + + | Narcotic dependence (HCC) Unspecified drug dependence, unspecified | + + | Benzodiazepine dependence (HCC) Sedative, hypnotic or anxiolytic dependence, | | unspecified | + + | Abdominal pain, unspecified abdominal location | + + documented in this encounter"
--- OUTSIDE RECORDS SUMMARY | ~2020-01-31 | XMS | Encounter Summary ---
Demographics + + + | Address | [address] | | | [place] [address] | + + + | Home Phone [...] | Author | [facility] | | | and Alexana | + + + | Organization | [facility] [...] [place] | | | | | [address] | | + + + + + Care Team Providers + +------+ + | Care Healthcare Business Analyst Name | Role | Phone | + +------+ + | Allison Fairchild NP | PCP | | + +------+ + Encounter Details +--------+ + + + + | Date | Type | Department | Care Team | Description | +--------+ + + + + | 10/03/ | Orders Only | [facility] | Rd uBsby MD | | | 2014 | | [address] | [address] | | | | | [place] | [place] | | | | | [address] | [address] | | | | | [phone] | [phone] | | | | | | | [...] EXTERNAL | | | | performed at [facility] | | LAB | | | | Health;[address] | | | | | | [place] | | | | | | [address] | | | | + + + [...]
--- OUTSIDE RECORDS SUMMARY | ~2020-01-31 | XMS | Encounter Summary ---
Demographics + + + | Address | [address] | | | [place] [address] | + + + | Home Phone [...] | Author | [facility] | | | and Alexana | + + + | Organization | [facility] | [...] [place] | | | | | [address] | | + + + + + Care Team Providers + +------+ + | Care Research Clerk Name | Role | Phone | [...] | | artery | [address] | [place], [place] | | | | | disease) | [place] | [address] | | | | | ([facility]) | [address] | Phone: | | | | | Procedures | Phone: | [phone] | | | | | IR Stent | [phone] | Fax: | | | | | Iliac | Fax: | [phone] | | | | | | [phone] | | +--------+--------+ + + + + [...] | | | | | | | ([facility]) | | | | | | | Procedures | | | | | | | IR STENT | | | | | | | ILIAC | | | +--------+--------+ + + + + Encounter Details +--------+ + + + + | Date | Type | Department | Care Team | Description | +--------+ + + + + | 06/01/ | Hospital | LOCATED WITHIN [facility] | Rich [place] MD | PAD (peripheral | | 2019 - | Encounter | [facility] | [address] | artery disease) | | | | CARE FLOOR [address] | [address] [place], [place] | ([facility]) | | 06/02/ | | [address] | [address] | | | 2019 | | [place], [place] | [phone] | | | | | [address] | | | | | | [phone] | | | +--------+ + + + [...] (sutures), avoid swimming or taking a bath [id number] after the p rocedure or until the [...] or shortness of breath Date Last Reviewed: 02/06/201619998375-7680 [employer]. [address] [place] [address]. All righ ts reserved. This information is [...] tomorrow AM. Significant other left VM with [employer] regarding ride in the morning. Dr. [place] notified. Telephone order for home med s gabapentin, lorazepam, robaxin, and magnesium. Shannan Chávez RN - 06/01/2019 3:43 PM PDTPer patient family pat ient arrived this morning by medical transport. Patient will not be able to discharge until later this evening, when transport is not available. Received call from [employer] transport [place] that brought patient. She said they have the option of cynthia a local ambulance company. Received fax of form [id number] to be sent t o [employer]. After roberson is sent back we can forward to [facility] [place] and they will approve or deny ride [...] the | | | | PDT | ([facility]) | results section. | + +--------+ [...] mm self-expanding stent SURGEON: | | | Rcih [place] MD MARKETING PROJECT SPECIALIST: None ANESTHESIA: Moderate sedation and local | [...] and | | | brought to the Dredge Captain. The patient was placed supine on the [...] wire and up sized to a 6 Latvian sheath. A | | | Omni flush [...] identified and brought | | |to the Dredge Captain. The patient was placed supine on the [...] | | |up sized to a 6 Latvian sheath. A Omni flush catheter was then [...] (H)Comment: Testing | 0.00 - 0.10 | [facility] | | | Absolute | performed at [facility];[address] | [address] | LABORATORY | | | | [address];[place] | | | | | | [address] | | | | + + + + + + + + | Specimen | + + | Blood | + + + + + + + | Performing | Address | City/State/Zipcode | Phone Number | | Organization | | | | + + + + + | [facility] | [address] | [place] [address] | [phone] | + + + + + Basic [...] | | | | | performed at [facility];[address] | | | | | | [address];[place] | | | | | | [address] | | | | + + + + + + + + | Specimen | + + | Blood | + + + + + + + | Performing | Address | City/State/Zipcode | Phone Number | | Organization | | | | + + + + + | [facility] | [address] | [place] [address] | [phone] | + + + + + documented [...]
--- OUTSIDE RECORDS SUMMARY | ~2020-01-31 | XMS | Encounter Summary ---
Demographics + + + | Address | [address] | | | [place] [address] | + + + | Home Phone | | + + + | Preferred Language | Unknown | + + + | Marital Status | | + + + | Yazdanism Affiliation | 1013 | + + + | Race | Unknown | + + + | Ethnic Group | Unknown | + + + Author + + + | Author | [facility] | | | and [place] | + + + | Organization | [facility] [...] [place] | | | | | [address] | | + + + + + Care Team Providers + +------+ + | Care Sow Manager Name | Role | Phone | + +------+ + | Allison Fairchild NP | PCP | | + +------+ + Reason for Referral Evaluate & Treat (Routine) +--------+ + + + + + | Status | Reason | Specialty | Diagnoses / | Referred By | Referred To | | | | | Procedures | Contact | Contact | +--------+ + + + + + | Closed | Specialty | Gastroenterol | Diagnoses | Fadi, | Fadi, | | | Services | ogy | Abdominal | MD Adrian | MD Adrian | | | Required | | pain, | [address] | | | | | generalized | BLVD | [place], | | | | | Dysphagia, | [place], [place] | [place] [address] | | | | | unspecified | [address] | Phone: | | | | | dysphagia | Phone: | [phone] | | | | | Opioid | [phone] | Fax: | | | | | dependence, | Fax: | [phone] | | | | | uncomplicate | [phone] | | | | | | d (HCC) | | | | | | | Procedures | | | | | | | TX | | | | | | | ESOPHAGOGAST | | | | | | | RODUODENOSCO | | | | | | | PY TRANSORAL | | | | | | | DIAGNOSTIC | | | | | | | TX EDG | | | | | | | TRANSORAL | | | | | | | BIOPSY | | | | | | | SINGLE/MULTI | | | | | | | PLE TX | | | | | | | ANESTH,UGI | | | | | | | ENDOSCOPY | | | +--------+ + + + + + Reason for Visit + + + | Reason | Comments | + + + | Abdominal Distension | | + + + Evaluate & Treat (Routine) +--------+--------+ + + + + | Status | Reason | Specialty | Diagnoses / | Referred By | Referred To | | | | | Procedures | Contact | Contact | +--------+--------+ + + + + | Closed | | Gastroenterol | Diagnoses | Gurinder, | [facility] [place] | | | | ogy | Abdominal | Allison L, | Gastroenterol | | | | | distension | GEOLOGICAL SCOUT [address] | [address] | | | | | (gaseous) | [address] | | | | | Procedures | [address] | [address] | | | | | Office visit | [place], | [place] | | | | | | [place] [address] | [address] | | | | | | Phone: | Phone: | | | | | | [phone] | [phone] | | | | | | Fax: | Fax: | | | | | | [phone] | [phone] | +--------+--------+ + + + + Encounter Details +--------+---------+ + + + | Date | Type | Department | Care Team | Description | +--------+---------+ + + + | 09/28/ | [facility] | [facility] | Adrian Aponte MD | Abdominal pain, | | 2016 | Visit | GASTROENTEROLOGY | [address] | generalized (Primary | | | | [address] [facility] | [place], [place] | Dx); Dysphagia, | | | | [address] [place] | [address] | unspecified | | | | [address] | [phone] | dysphagia | | | | [phone] | | | +--------+---------+ + + + Social History + + + +--------+------+ | Tobacco Use | Types | Packs/Day | Years | Date | | | | | Used | | + + + +--------+------+ | Current Every Day | Cigarettes | 1 | | | | Smoker | | [...] + + + | Blood Pressure | 118/76 | 09/28/2015 10:25 AM | | | | | PST | | + + + + + | Pulse | 84 | 09/28/2015 10:25 AM | | | | | PST | | + + + + + | Temperature | - | - | | + + + + + | Respiratory Rate | 16 | 09/28/2015 10:25 AM | | | | | PST | | + + + + + | Oxygen Saturation | 97% | 09/28/2015 10:25 AM | | | | | PST | | + + + + + | Inhaled Oxygen | - | - | | | Concentration | | | | + + + + + | Weight | 99.8 kg (220 lb) | 09/28/2015 10:25 AM | | | | | PST | | + + + + + | Height | 180.3 cm (5' 11") | 09/28/2015 10:25 AM | | | | | PST | | + + + + + | Body Mass Index | 30.68 | 09/28/2015 10:25 AM | | | | | PST | | + + + + + documented in this encounter Progress Adrian Dawn MD - 09/29/2015 2:22 PM PST Subjective: Patient ID: Reza Cespedes is a 54 y.o. male. HPI This office note has been dictated. Review of Systems Objective: Physical Exam Assessment: This office note has been dictated. Plan: This office note has been dictated. documented in this enc ounter Plan of Treatment + + +--------+ + + | Name | Type | Priori | Associated Diagnoses | Order Schedule | | | | ty | | | + + +--------+ + + | Procedure | Outpatient | Routin | Abdominal pain, | Expected: 10/23/2015 | | [id number] | Referral | e | generalized | (Approximate), | | | | | Dysphagia | Expires: 09/27/2016 | + + +--------+ + + documented as of this encounter Visit Diagnoses + + | Diagnosis | + + | Abdominal pain, generalized - Primary | + + | Dysphagia, unspecified dysphagia | + + documented in this encounter
--- OUTSIDE RECORDS SUMMARY | ~2020-01-31 | XMS | Encounter Summary ---
Demographics + + + | Address | [address] | | | [place] [address] | + + + | Home Phone | | + + + | Preferred Language | Unknown | + + + | Marital Status | | + + + | Nondenominational Affiliation | Unknown | + + + | Race | White | + + + | Ethnic Group | Not or | + + + Author + + + | Author | [facility] | + + + | Organization | [facility] | + + + | Address | Unknown | + + + | Phone | Unavailable | + + + Support + + +---------+ + | Name | Relationship | Address | Phone | + + +---------+ + | Maria Isabel Cespedes | ECON | Unknown | | + + +---------+ + Care Team Providers + +------+ + | Care Care Trainer Name | Role | Phone | + +------+ + | Allison Fairchild ASSISTANT OCEANOGRAPHER | PCP | | + +------+ + [...] | | | | | spondylosis | ASSISTANT OCEANOGRAPHER Good | [address] [facility] | | | | | with | Lio | [address] | | | | | radiculopath | [facility] | Jey [place], | | | | | y, lumbar | [address] | [place] | | | | | region | [address] | [address] | | | | | Acute kidney | [facility], | Phone: | | | | | failure, | [place] [address] | [phone] | | | | | unspecified | Phone: | Fax: | | | | | Other | [phone] | [phone] | | | | | disorder of | Fax: | | | | | | circulatory | [phone] | | | | | | system [...] | | | | | | | HI NEW | | | | | | | PATIENT | | | | | | | LEVEL II HI | | | | | | | [...] 2019 | Visit | [facility] | [address] | (Primary Dx) | | | | [address] | [address] | | | | | Loop [facility] | [place], [place] | | | | | [address], [address] | [address] | | | | | [place], [place] | [phone] | | | | | [address] | | | | | | [phone] | | | +--------+---------+ + + + [...] findings, assessment and plan. Malou Bo M.D. [address] Mailcode: [id number] [facility] [address] cMoe DENIS, Debbie - 0 11/02/2018 3:30 PM PST RHEUMATOLOGY NEW VISIT PCP JUAN JOSÉ [place] [address] [place] [address] Chief Complaint: renal artery abnormalities, evaluate for [...] was instructed to schedule a visit wi [facility] rheumatology Dr Howard, but has been unable to get in until today. Here with his . Traveled here from [place], [place]. Long drive which is uncomfortable for [...] 1,000 mg by mouth four times daily. sx-oje-ywhil acid-lutein (CENTRUM SILVER) 400-250 mcg oral tablet,chewable [...] is noncirrhotic with a CBD stent. Gallblad marsah is surgically absent. The spleen, adrenal glands [...] ESR ~54 suggestive of a more ac sleetmute process, although imperfect. No clear signs of [...] Em MD RHEUMATOLOGY AT [facility] [address] Mailcode: [address] [place] [address] documented in this e ncounter Plan of Treatment Not on filedocumented as of this encounter Results HEPATITIS B [...] | + + + + + | [facility] [employer] | [address] | [place] [address] | | | SERVICES, CORE | DORIAN [...] | + + + + + | [facility] | [address] | [place] [address] | | | SERVICES, CORE | PARK [...] [facility] | | | NIL | by [address] | | REG UNIV | | | | Manohar [address], [facility] | | PTH - INTFC | | | | [address] | | | | | | [phone].[facility]. | | | | | | Melecio [...] (http://www.cdc.gov/mmwr | | | | | | /preview/mmwrhtml/kv4330 | | | | | | a1.htm), [...] [facility] | [address] | [place], [place] | | | UNIV PTH - INTFC | | [address] | | + + + + + [...] | + + + + + | [facility] | [address] | [place] [address] | | | SERVICES, CORE | DORIAN [...] [facility] | [address] | [place] [address] | | | CHUY[place], CORE | [address] | | | [...] | | | LABORATORY | | | [place] | | | SERVICES, | | | [...] the MDRD equation recommended by the | [facility] | | National Kidney Disease Education Program. Estimated GFR | LABORATORY | | Interpretive Information: <60 mL/min/1.73 sq m | CHUYITA, CORE | | Chronic Kidney Disease <15 [...] | + + + + + | [facility] | [address] [facility] 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
--- OUTSIDE RECORDS SUMMARY | ~2020-01-31 | XMS | Encounter Summary ---
Demographics + + + | Address | [address] | | | [place] [address] | + + + | Home Phone [...] + | Author | [facility] | | | and [place] | + + + | Organization | [facility] | | [...] [place] | | | | | [address] | | + + + + + Care Team Providers + +------+ + | Care Cost Coordinator Name | Role | Phone | [...] | | | | EMERGENCY CENTER | [place] [address] | without sciatica; | | 03/04/ | | [address] | [phone] | Lower abdominal pain | | 2016 | | [place], [place] | | | | | | [address] | | | | | | [phone] | | | +--------+ + + + [...] 2:46AM | | | Referring Provider Line: [phone] ID: [id number] | | + + + [...] Alignment: Unremarkable. | | | Bones: Five eiq-cet-orneczu lumbar vertebral bodies are present. | | [...] technique. FINDINGS:Alignment: | | Unremarkable. Bones: Five uet-yml-ogtiaan lumbar vertebral bodies are present. | | [...] 2016 2:46AM Referring | | Provider Line: [phone] ID: [id number] | | | |L1-L2: Minimal [...] 04 2016 2:46AM Referring Provider Line: [phone] ID: [id number] | + + CT Abdomen [...] | | | 2:30AM Referring Provider Line: [phone] ID: [id number] | | + + + [...] 2016 2:30AM | | Referring Provider Line: [phone] ID: [id number] | |Adrenal Glands: Normal. | [...] 04 2016 2:30AM Referring Provider Line: [phone] ID: [id number] | + + Lactic Acid (03/04/2016 12:16 AM PDT) + + + + + + | Component | Value | Ref Range | Performed | Pathologist | | | | | At | Signature | + + + + + + | Lactate | 1.0Comment: Testing | 0.4 - 2.0 | EXTERNAL | | | | performed at [facility];888 | mmol/L | LAB | | | | [address];[place] | | | | | | [address] | | | | + + + [...] EXTERNAL | | | | performed at [facility];888 | | LAB | | | | [address];[place], [place] | | | | | | [address] | | | | + + + [...] EXTERNAL | | | | performed at [facility];888 | K/uL | LAB | | | | [address];[place] | | | | | | [address] | | | | + + + + + + | Red Blood | 5.01Comment: Testing | 4.20 - 5.70 | EXTERNAL | | | Cells | performed at [facility];888 | M/uL | LAB | | | Counted | [address];[place] | | | | | | [address] | | | | + + + + + + | Hemoglobin | 15.5Comment: Testing | 13.2 - 17.0 | EXTERNAL | | | | performed at [facility];888 | g/dL | LAB | | | | [address];[place] | | | | | | [address] | | | | + + + + + + | Hematocrit, | 46.2Comment: Testing | 39.0 - 50.0 % | EXTERNAL | | | POC | performed at [facility];888 | | LAB | | | | [address];[place] | | | | | | [address] | | | | + + + + + + | MCV | 92.2Comment: Testing | 80.0 - 100.0 fl | EXTERNAL | | | | performed at [facility];[address] | | LAB | | | | [address];[place] | | | | | | [address] | | | | + + + + + + | MCH | 30.9Comment: Testing | 27.0 - 34.0 pg | EXTERNAL | | | | performed at [facility];[address] | | LAB | | | | [address];[place] | | | | | | [address] | | | | + + + + + + | MCHC | 33.6Comment: Testing | 32.0 - 35.5 | EXTERNAL | | | | performed at [facility];888 | g/dL | LAB | | | | [address];[place] | | | | | | [address] | | | | + + + + + + | RDW-CV | 46.8Comment: Testing | 37 - 53 fl | EXTERNAL | | | | performed at [facility];888 | | LAB | | | | [address];[place] | | | | | | [address] | | | | + + + + + + | Platelet | 286Comment: Testing | 150 - 400 K/uL | EXTERNAL | | | Count | performed at [facility];888 | | LAB | | | Plasma | [address];[place] | | | | | | [address] | | | | + + + + + + | MPV | 8.4Comment: Testing | fl | EXTERNAL | | | | performed at [facility];[address] | | LAB | | | | [address];[place] | | | | | | [address] | | | | + + + + + + | Differentia | AUTOMATEDComment: | | EXTERNAL | | | l Type | Testing performed at | | LAB | | | | [facility];[address];[place] [address] | | | | + + + + + + | % Segmented | 54.43Comment: Testing | % | EXTERNAL | | | | performed at [facility];888 | | LAB | | | Neutrophils | [address];[place] | | | | | | [address] | | | | + + + + + + | % | 36.35Comment: Testing | % | EXTERNAL | | | Lymphocytes | performed at [facility];[address] | | LAB | | | | [address];[place] | | | | | | [address] | | | | + + + + + + | % Monocytes | 6.73Comment: Testing | % | EXTERNAL | | | | performed at [facility];[address] | | LAB | | | | [address];[place] | | | | | | [address] | | | | + + + + + + | % | 1.39Comment: Testing | % | EXTERNAL | | | Eosinophils | performed at [facility];[address] | | LAB | | | | [address];[place] | | | | | | [address] | | | | + + + + + + | % Basophils | 1.10Comment: Testing | % | EXTERNAL | | | | performed at [facility];[address] | | LAB | | | | [address];[place] | | | | | | [address] | | | | + + + + + + | Absolute | 5.93Comment: Testing | 1.90 - 7.40 | EXTERNAL | | | Segmented | performed at [facility];888 | K/uL | LAB | | | Neutrophils | [address];[place] | | | | | | [address] | | | | + + + + + + | Absolute | 3.96 (H)Comment: Testing | 1.00 - 3.90 | EXTERNAL | | | Lymphocytes | performed at [facility];888 | K/uL | LAB | | | | [address];[place] | | | | | | [address] | | | | + + + + + + | Absolute | 0.73Comment: Testing | 0.00 - 0.80 | EXTERNAL | | | Monocytes | performed at [facility];888 | K/uL | LAB | | | | [address];[place] | | | | | | [address] | | | | + + + + + + | Absolute | 0.15Comment: Testing | 0.00 - 0.50 | EXTERNAL | | | Eosinophils | performed at [facility];888 | K/uL | LAB | | | | [address];[place] | | | | | | [address] | | | | + + + + + + | Absolute | 0.12 (H)Comment: Testing | 0.00 - 0.10 | EXTERNAL | | | Basophils | performed at [facility];888 | K/uL | LAB | | | | [address];[place] | | | | | | [address] | | | | + + + [...] EXTERNAL | | | | performed at [facility] | | LAB | | | | [address] [facility];[place], [place] | | | | | | [address] | | | | + + + [...] LAB | | | | performed at [facility] | | | | | | [address];[place], [place] | | | | | | [address] | | | | + + + + + + | K | 3.8Comment: Testing | 3.5 - 4.9 | EXTERNAL | | | | performed at [facility];888 | mmol/L | LAB | | | | [address];[place] | | | | | | [address] | | | | + + + + + + | Cl | 110 (H)Comment: Testing | 99 - 109 mmol/L | EXTERNAL | | | | performed at [facility];[address] | | LAB | | | | [address];[place] | | | | | | [address] | | | | + + + + + + | CO2 | 25Comment: Testing | 23 - 32 mmol/L | EXTERNAL | | | | performed at [facility];[address] | | LAB | | | | [address];[place] | | | | | | [address] | | | | + + + + + + | Anion Gap | 8Comment: Testing | 5 - 20 mmol/L | EXTERNAL | | | | performed at [facility];[address] | | LAB | | | | [address];[place] | | | | | | [address] | | | | + + + + + + | Glucose, | 96Comment: Testing | 65 - 99 mg/dL | EXTERNAL | | | Fasting | performed at [facility];[address] | | LAB | | | | [address];[place] | | | | | | [address] | | | | + + + + + + | BUN | 19Comment: Testing | 8 - 25 mg/dL | EXTERNAL | | | | performed at [facility];[address] | | LAB | | | | [address];[place] | | | | | | [address] | | | | + + + + + + | Creatinine | 1.0Comment: Testing | 0.70 - 1.30 | EXTERNAL | | | | performed at [facility];888 | mg/dL | LAB | | | | [address];[place] | | | | | | [address] | | | | + + + + + + | BUN/Creatin | 19Comment: Testing | | EXTERNAL | | | ine Ratio | performed at [facility];888 | | LAB | | | | [address];[place] | | | | | | [address] | | | | + + + + + + | Calcium | 9.1Comment: Testing | 8.5 - 10.5 | EXTERNAL | | | | performed at [facility];888 | mg/dL | LAB | | | | [address];[place] | | | | | | [address] | | | | + + + + + + | Protein, | 7.5Comment: Testing | 6.3 - 8.2 g/dL | EXTERNAL | | | Total | performed at [facility];[address] | | LAB | | | | [address];[place] | | | | | | [address] | | | | + + + + + + | Albumin | 3.9Comment: Testing | 3.6 - 5.0 g/dL | EXTERNAL | | | | performed at [facility];[address] | | LAB | | | | [address];[place] | | | | | | [address] | | | | + + + + + + | Globulin | 3.6Comment: Testing | 1.3 - 4.9 g/dL | EXTERNAL | | | | performed at [facility];[address] | | LAB | | | | [address];[place] | | | | | | [address] | | | | + + + + + + | A/G Ratio | 1.1Comment: Testing | 1.0 - 2.4 | EXTERNAL | | | | performed at [facility];[address] | | LAB | | | | [address];[place] | | | | | | [address] | | | | + + + + + + | Bilirubin | 0.5Comment: Testing | 0.1 - 1.5 mg/dL | EXTERNAL | | | Total | performed at [facility];[address] | | LAB | | | | [address];[place] | | | | | | [address] | | | | + + + + + + | ALP, | 98Comment: Testing | 35 - 115 U/L | EXTERNAL | | | External | performed at [facility];[address] | | LAB | | | | [address];[place] | | | | | | [address] | | | | + + + + + + | AST | 45Comment: Testing | 10 - 45 U/L | EXTERNAL | | | | performed at [facility];[address] | | LAB | | | | [address];[place] | | | | | | [address] | | | | + + + + + + | ALT | 48Comment: Testing | 10 - 65 U/L | EXTERNAL | | | | performed at [facility];[address] | | LAB | | | | [address];[place] | | | | | | [address] | | | | + + + [...] | | | | | | at [facility];[address] [place] [address] | | | | | | [facility];[place] [address] | | | | + + + [...]
--- OUTSIDE RECORDS SUMMARY | ~2020-01-31 | XMS | Encounter Summary ---
Demographics + + + | Address | [address] | | | [place] [address] | + + + | Home Phone [...] Author | [facility] | | | and [place] | + + + | Organization | [facility] | | | and [place] | + + + | Address | Unknown | + + + | Phone | Unavailable | + + + Support + + + + + | Name | Relationship | Address | Phone | + + + + + | Teodora Han | ECON | [address] | | | | | [place] | | | | | [address] | | + + + + + Care Team Providers + +------+ + | Care Belt Worker Name | Role | Phone | + +------+ + PCP | Unavailable | + +------+ + Encounter Details +--------+ + + + + | Date | Type | Department | Care Team | Description | +--------+ + + + + | 01/09/ | [facility] | [facility] | Dominick Perez MD | | | 2013 | Encounter | [facility] | [address] | | | | | CLINICAL LABORATORY | [place] | | | | | [address] | [address] | | | | | [place], [place] | [phone] | | | | | [address] | | | | | | [phone] | | | +--------+ + + + [...] At | + + + | CASE: [id number] PATIENT: APARNA HAN Surgical Pathology Report | [...]
--- OUTSIDE RECORDS SUMMARY | ~2020-01-31 | XMS | Encounter Summary ---
Demographics + + + | Address | [address] | | | [place] [address] | + + + | Home Phone [...] + | Author | [facility] | | | and [place] | + + + | Organization | [facility] | | | and [place] [...] [place] | | | | | [address] | | + + + + + Care Team Providers + +------+ + | Care Diabetes Education Coordinator Name | Role | Phone | [...] | | | [place] | [place] | | | | | [address] | [address] | | | | | [phone] | [phone] | | | | | | | [...] GIVEN Testing | | | performed at [facility];[address];[place] [address] CULTURE | | | NO GROWTH | | | Testing performed at [facility], [address] | | | [place] [address] REPORT STATUS | | | 10/04/2013 FINAL [...]
--- OUTSIDE RECORDS SUMMARY | ~2020-01-31 | XMS | Encounter Summary ---
Demographics + + + | Address | [address] | | | [place] [address] | + + + | Home Phone | | + + + | Preferred Language | Unknown | + + + | Marital Status | | + + + | Worship Affiliation | 1013 | + + + | Race | Unknown | + + + | Ethnic Group | Unknown | + + + Author + + + | Author | [facility] | | | and [place] | + + + | Organization | [facility] | | | and [place] [...] [place] | | | | | [address] | | + + + + + Care Team Providers + +------+ + | Care Dynamic Etching Processor Name | Role | Phone | + [...] | Dysphagia, | [place], [place] | [place] [address] | | | | | unspecified | [address] | Phone: | | | | | dysphagia | Phone: | [phone] | | | | | Opioid | [phone] | Fax: | | | | | dependence, | Fax: | [phone] | | | | | uncomplicate | [phone] | | | | | | d [...] | | | | | | AR EDG | | | | | | [...] | | | | | distension | WALL [employer] [address] | [address] | | | | | (gaseous) | [address] | | | | | Procedures | [address] | [address] | | | | | Office visit | [place], | [place] | | | | | | [place] [address] | [address] | | | | | | Phone: | Phone: | | | | | | [phone] | [phone] | | | | | | Fax: | Fax: | | | | | | [phone] | [phone] | +--------+--------+ + + + + Encounter Details +--------+---------+ + + + | Date | Type | Department | Care Team | Description | +--------+---------+ + + + | 09/28/ | Office | [facility] | Adrian Aponte MD | Abdominal pain, | | 2016 | Visit | GASTROENTEROLOGY | [address] | generalized (Primary | | | | [address] [facility] | [place], [place] | Dx); Dysphagia, | | | | [address] [place] | [address] | unspecified | | | | [address] | [phone] | dysphagia | | | | [phone] | | | +--------+---------+ + + + [...] + documented in this encounter Progress Adrian Dwan MD - 09/29/2015 2:22 PM PST Subjective: [...] Abdominal pain, | Expected: 10/23/2015 | | Elkutmwy-Fxgdw-[id number] | Referral | e | generalized | [...]
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
--- OUTSIDE RECORDS SUMMARY | ~2020-01-31 | XMS | Encounter Summary ---
Demographics + + + | Address | [address] | | | [place] [address] | + + + | Home Phone [...] [facility] | | | and [place] | + + + | Organization | [facility] | | | and [place] [...] [place] | | | | | [address] | | + + + + + Care Team Providers + +------+ + | Care Car Examiner Name | Role | Phone | [...] | | | | | PX ERCP [place] | | | | | | [...] + + | 02/12/ | Hospital | [facility] | Dc Naik MD | | | 2018 | Encounter | MED CTR XRAY [address] | [address], [place] | | | | | [place] | [address] [place], [place] | | | | | [place] [address] | [address] | | | | | [phone] | | | +--------+ + + + [...]
--- OUTSIDE RECORDS SUMMARY | ~2020-01-31 | XMS | Encounter Summary ---
Demographics + + + | Address | [address] | | | [place] [address] | + + + | Home Phone [...] | Author | [facility] | | | and [place] | + + + | Organization | [facility] [...] [place] | | | | | [address] | | + + + + + Care Team Providers + +------+ + | Care Structures Assembler Name | Role | Phone | [...] | | | [place] | [place] | | | | | [address] | [address] | | | | | [phone] | [phone] | | | | | | | [...] EXTERNAL | | | | performed at [facility], [address] | | LAB | | | | [facility] | | | | | | [place] [address] | | | | + + + + + + | HCV | [id number] (A)Comment: | IU/mL | EXTERNAL | | [...] | | | | | performed at [facility], [address] | | | | | | [place] | | | | | | [place] [address] | | | | + + + [...]
--- OUTSIDE RECORDS SUMMARY | ~2020-01-31 | XMS | Encounter Summary ---
Demographics + + + | Address | [address] | | | [place] [address] | + + + | Home Phone [...] + | Author | [facility] | | | and [place] | + + + | Organization | [facility] | | | and [...] [place] | | | | | [address] | | + + + + + Care Team Providers + +------+ + | Care Bleach Boiler Filler Name | Role | Phone | + [...] [place] | | | | | [address] | [address] | | | | | [phone] | [phone] | | | | | | | [...] | | | | | performed at [facility], [address] | | | | | | [facility] | | | | | | [place] [address] | | | | + + + + + + | Result | 1.1 (H)Comment: Testing | U | EXTERNAL | | | | performed at [facility], [address] | | LAB | | | | [place] | | | | | | [place] [address] | | | | + + + [...]
--- OUTSIDE RECORDS SUMMARY | ~2020-01-31 | XMS | Encounter Summary ---
Demographics + + + | Address | [address] | | | [place] [address] | + + + | Home Phone [...] + | Author | [facility] | | | and [place] | + + + | Organization | [facility] [...] [place] | | | | | [address] | | + + + + + Care Team Providers + +------+ + | Care Frontend Engineer Name | Role | Phone | [...] | +--------+ + + + + | 09/02/ | Telephone | [facility] | Anival Stevenson MD | Other | | 2019 | | GENERAL SURGERY [address] | [address] | | | | | [address] | [address] [place], [place] | | | | | [place], [place] | [address] | | | | | [address] | | | | | | [phone] | | | +--------+ + + + [...]
--- OUTSIDE RECORDS SUMMARY | ~2020-01-31 | XMS | Encounter Summary ---
Demographics + + + | Address | [address] | | | [place] [address] | + + + | Home Phone [...] | Author | [facility] | | | and [place] | + + + | Organization | [facility] | | | [...] [place] | | | | | [address] | | + + + + + Care Team Providers + +------+ + | Care Die Grinder Name | Role | Phone | + +------+ + PCP | Unavailable | + +------+ + Encounter Details +--------+ + + + + | Date | Type | Department | Care Team | Description | +--------+ + + + + | 07/03/ | Hospital | [facility] | Bertha Bentley MD | Recurrent incisional | | 2013 - | Encounter | [facility] [address] | [address] [place] | hernia with | | | | [address] | [address] [place], [place] | complication | | 07/06/ | | [place], [place] | [address] | | | 2013 | | [address] | | | | | | [phone] | | | +--------+ + + + [...] Date of Service: 07/06/14 1211 Status: Signed Piggyback Clerk: Bertha Benltey MD (Physician) [facility] Service: General Surgery Discharge Summary Date [...] - INCISIONAL; Surgeon: Bertha Bentley MD; Location: [facility]; Service: General; Laterality: N/A; Incisional hernia repair N/A 07/03/2014 Procedure: HERNIA REPAIR - INCISIONAL - COMPLEX; Surgeon: Bertha Bentley MD; Location: [facility]; Service: General; Laterality: N/A; open [...] discharge procedures on file. 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 You may get the following medications from [...] Date of Service: 07/06/14 1448 Status: Signed Piggyback Clerk: Dionne Johnson RN (Registered Nurse) Discharge instructions [...] Date of Service: 07/05/14 1140 Status: Signed Piggyback Clerk: Bertha Bentley MD (Physician) [facility] Service: General Surgery Progress Note POD: [...] before signing off. BERTHA BENTLEY MD, FACS 07/05/2014 onversion Transaction , Provider Unknown - 07/05/2014 8:16 AM PDT Progress Notes by Dionne Johnson RN at 07/05/14 08 Author: Dionne Johnson RN Service: (none) Author Type: Registered Nurse Filed: 07/05/1418 Date of Service: 07/05/14815 Status: Signed Piggyback Clerk: Dionne Johnson RN (Registered Nurse) Patient reported [...] Date of Service: 07/04/14 1401 Status: Addendum Piggyback Clerk: Urvashi Quesada RN (Registered Nurse) Related Notes: Original Note by Urvashi Quesada RN (Registered Nurse) filed at 07/04/14 140 1 Drug discount card given to patient. Coupons from [email or web address] given to patient. onver day Transaction, Provider Unknown - 07/04/2014 1:32 PM PDT Case Management by Urvashi Quesada RN at 07/04/14 1332 Author: Urvashi Quesada RN Service: (none) Author Type: Registered Nurse Filed: 07/04/14 1401 Date of Service: 07/04/14 1332 Status: Addendum Piggyback Clerk: Urvashi Quesada RN (Registered Nurse) Related Notes: [...] Discharge No Mental Status Oriented Power of Film Cutter Yes Power of Film Cutter Name Maria Isabel Power of Film Cutter Anticipated Discharge Plan Post Acute Care Needs [...] 07/04/14900 Date of Service: 07/04/14899 Status: Signed Piggyback Clerk: Bertha Bentley MD (Physician) [facility] Service: General Surgery Progress Note POD: [...] 3:58 PM PDT Progress Notes by Keyur Ghotra RPH at 07/03/141557 Author: Keyur Ghotra RPH Service: (none) Author Type: Pharmacist Filed: 07/03/141557 Date of Service: 07/03/141557 Status: Signed Piggyback Clerk: Keyur Ghotra RPH (Pharmacist) Pharmacy will renal [...] | | | | | [place] [address] | | | | + + + + + + | Red Blood | 3.92 (L)Comment: Testing | 4.20 - 5.70 | EXTERNAL | | | Cells | performed at [facility], [address] | M/uL | LAB | | | Counted | [address], | | | | | | [place] [address] | | | | + + + + + + | Hemoglobin | 11.9 (L)Comment: Testing | 13.2 - 17.0 | EXTERNAL | | | | performed at [facility], [address] | g/dL | LAB | | | | [address], | | | | | | [place] [address] | | | | + + + + + + | Hematocrit, | 36.0 (L)Comment: Testing | 39.0 - 50.0 % | EXTERNAL | | | POC | performed at [facility], [address] | | LAB | | | | [address], | | | | | | [place] [address] | | | | + + + + + + | MCV | 91.8Comment: Testing | 80.0 - 100.0 fl | EXTERNAL | | | | performed at [facility], [address] | | LAB | | | | [place], | | | | | | [place] [address] | | | | + + + + + + | MCH | 30.2Comment: Testing | 27.0 - 34.0 pg | EXTERNAL | | | | performed at [facility], [address] | | LAB | | | | [place], | | | | | | [place] [address] | | | | + + + + + + | MCHC | 32.9Comment: Testing | 32.0 - 35.5 | EXTERNAL | | | | performed at [facility], [address] | g/dL | LAB | | | | [address], | | | | | | [place] [address] | | | | + + + + + + | RDW-CV | 47.7Comment: Testing | 37 - 53 fl | EXTERNAL | | | | performed at [facility], [address] | | LAB | | | | [address], | | | | | | [place] [address] | | | | + + + + + + | Platelet | 267Comment: Testing | 150 - 400 K/uL | EXTERNAL | | | Count | performed at [facility], [address] | | LAB | | | Plasma | [address], | | | | | | [place] [address] | | | | + + + + + + | MPV | 8.7Comment: Testing | fl | EXTERNAL | | | | performed at [facility], [address] | | LAB | | | | [address], | | | | | | [place] [address] | | | | + + + + + + | Differentia | AUTOMATEDComment: | | EXTERNAL | | | l Type | Testing performed at | | LAB | | | | [facility], [address] | | | | | | [place] | | | | | | [address] | | | | + + + + + + | % Segmented | 76.9Comment: Testing | % | EXTERNAL | | | | performed at [facility], [address] | | LAB | | | Neutrophils | [address], | | | | | | [place] [address] | | | | + + + + + + | % | 14.3Comment: Testing | % | EXTERNAL | | | Lymphocytes | performed at [facility], [address] | | LAB | | | | [address], | | | | | | [place] [address] | | | | + + + + + + | % Monocytes | 7.9Comment: Testing | % | EXTERNAL | | | | performed at [facility], [address] | | LAB | | | | [address], | | | | | | [place] [address] | | | | + + + + + + | % | 0.0Comment: Testing | % | EXTERNAL | | | Eosinophils | performed at [facility], [address] | | LAB | | | | [address], | | | | | | [place] [address] | | | | + + + + + + | % Basophils | 0.9Comment: Testing | % | EXTERNAL | | | | performed at [facility], [address] | | LAB | | | | [address], | | | | | | [place] [address] | | | | + + + + + + | Absolute | 11.5 (H)Comment: Testing | 1.9 - 7.4 K/uL | EXTERNAL | | | Segmented | performed at [facility], [address] | | LAB | | | Neutrophils | [address], | | | | | | [place] [address] | | | | + + + + + + | Absolute | 2.1Comment: Testing | 1.0 - 3.9 K/uL | EXTERNAL | | | Lymphocytes | performed at [facility], [address] | | LAB | | | | [address], | | | | | | [place] [address] | | | | + + + + + + | Absolute | 1.2 (H)Comment: Testing | 0 - 0.8 K/uL | EXTERNAL | | | Monocytes | performed at [facility], [address] | | LAB | | | | [address], | | | | | | [place] [address] | | | | + + + + + + | Absolute | 0.0Comment: Testing | 0 - 0.5 K/uL | EXTERNAL | | | Eosinophils | performed at [facility], [address] | | LAB | | | | [address], | | | | | | [place] [address] | | | | + + + + + + | Absolute | 0.1Comment: Testing | 0 - 0.1 K/uL | EXTERNAL | | | Basophils | performed at [facility], [address] | | LAB | | | | [address], | | | | | | [place] [address] | | | | + + + [...] | | | | | [place] [address] | | | | + + + + + + | K | 4.3Comment: Testing | 3.5 - 4.9 | EXTERNAL | | | | performed at [facility], [address] | mmol/L | LAB | | | | [address], | | | | | | [place] [address] | | | | + + + + + + | Cl | 104Comment: Testing | 99 - 109 mmol/L | EXTERNAL | | | | performed at [facility], [address] | | LAB | | | | [address], | | | | | | [place] [address] | | | | + + + + + + | CO2 | 27Comment: Testing | 23 - 32 mmol/L | EXTERNAL | | | | performed at [facility], [address] | | LAB | | | | [address], | | | | | | [place] [address] | | | | + + + + + + | Anion Gap | 9Comment: Testing | 5 - 20 mmol/L | EXTERNAL | | | | performed at [facility], [address] | | LAB | | | | [address], | | | | | | [place] [address] | | | | + + + + + + | Glucose, | 131 (H)Comment: Testing | 65 - 99 mg/dL | EXTERNAL | | | Fasting | performed at [facility], [address] | | LAB | | | | [address], | | | | | | [place] [address] | | | | + + + + + + | BUN | 19Comment: Testing | 8 - 25 mg/dL | EXTERNAL | | | | performed at [facility], [address] | | LAB | | | | [address], | | | | | | [place] [address] | | | | + + + + + + | Creatinine | 0.74Comment: Testing | 0.70 - 1.30 | EXTERNAL | | | | performed at [facility], [address] | mg/dL | LAB | | | | [address], | | | | | | [place] [address] | | | | + + + + + + | BUN/Creatin | 26Comment: Testing | | EXTERNAL | | | ine Ratio | performed at [facility], [address] | | LAB | | | | [address], | | | | | | [place] [address] | | | | + + + + + + | Calcium | 8.6Comment: Testing | 8.5 - 10.2 | EXTERNAL | | | | performed at [facility], [address] | mg/dL | LAB | | | | [address], | | | | | | [place] [address] | | | | + + + + + + | Protein, | 5.6 (L)Comment: Testing | 6.3 - 8.2 g/dL | EXTERNAL | | | Total | performed at [facility], [address] | | LAB | | | | [address], | | | | | | [place] [address] | | | | + + + + + + | Albumin | 3.2 (L)Comment: Testing | 3.6 - 5.0 g/dL | EXTERNAL | | | | performed at [facility], [address] | | LAB | | | | [address], | | | | | | [place] [address] | | | | + + + + + + | Globulin | 2.4Comment: Testing | 1.3 - 4.9 g/dL | EXTERNAL | | | | performed at [facility], [address] | | LAB | | | | [address], | | | | | | [place] [address] | | | | + + + + + + | A/G Ratio | 1.3Comment: Testing | 1.0 - 2.4 | EXTERNAL | | | | performed at [facility], [address] | | LAB | | | | [address], | | | | | | [place] [address] | | | | + + + + + + | Bilirubin | 0.6Comment: Testing | 0.1 - 1.5 mg/dL | EXTERNAL | | | Total | performed at [facility], [address] | | LAB | | | | [address], | | | | | | [place] [address] | | | | + + + + + + | ALP, | 74Comment: Testing | 35 - 115 U/L | EXTERNAL | | | External | performed at [facility], [address] | | LAB | | | | [address], | | | | | | [place] [address] | | | | + + + + + + | AST | 38Comment: Testing | 10 - 45 U/L | EXTERNAL | | | | performed at [facility], [address] | | LAB | | | | [address], | | | | | | [place] [address] | | | | + + + + + + | ALT | 28Comment: Testing | 10 - 65 U/L | EXTERNAL | | | | performed at [facility], [address] | | LAB | | | | [address], | | | | | | [place] [address] | | | | + + + [...] [address], | | | | | | [place] [address] | | | | + + + [...] areas of purple-white calcification. | | | Varnish Inspector sections are submitted in cassette (A1). FM | | | MICROSCOPIC EXAMINATION: Histologic sections of all submitted blocks | | | are examined by light microscopy. These findings, together with the | | | gross examination, support the pathologic diagnosis. PERFORMING | | | LABORATORY: Professional interpretation and technical preparation was | | | performed by [email or web address], [facility], [facility] | | | [place] [address] (Nursing Consultant: Renaldo Justin | Margoth Love M.D.; IA#: [id number]). Diagnostician: Renaldo Love | | | Pathologist [...]
--- OUTSIDE RECORDS SUMMARY | ~2020-01-31 | XMS | Encounter Summary ---
Demographics + + + | Address | [address] | | | [place] [address] | + + + | Home Phone | | + + + | Preferred Language | Unknown | + + + | Marital Status | | + + + | Shinto Affiliation | Unknown | + + + | Race | White | + + + | Ethnic Group | Not or | + + + Author + + + | Author | [facility] | + + + | Organization | [facility] | + + + | Address | Unknown | + + + | Phone | Unavailable | + + + Support + + +---------+ + | Name | Relationship | Address | Phone | + + +---------+ + | Maria Isabel Cespedes | ECON | Unknown | | + + +---------+ + Care Team Providers + +------+ + | Care Single Ending Machine Operator Name | Role | Phone | + +------+ + | Allison Fairchild NP | PCP | | + +------+ + Encounter Details +--------+ + + + + | Date | Type | Department | Care Team | Description | +--------+ + + + + | 03/14/ | Telephone | Rheumatology at | Chiquis Norman, | | | 2019 | | [facility] | [address] | | | | | [address] | [facility] | | | | | [address] Phys[address] | [place], [place] | | | | | [place], [facility] Floor | [address] | | | | | [place], [place] | [phone] | | | | | [address] | | | | | | [phone] | | | +--------+ + + + [...]
--- OUTSIDE RECORDS SUMMARY | ~2020-01-31 | XMS | Encounter Summary ---
Demographics + + + | Address | [address] | | | [place] [address] | + + + | Home Phone [...] + + | Author | [facility] | | | and [place] | + + + | Organization | [facility] | | | [...] [place] | | | | | [address] | | + + + + + Care Team Providers + +------+ + | Care Freelance Web Designer Name | Role | Phone | [...] [place] | | | | | [address] | [address] | | | | | [phone] | [phone] | | | | | | | [...] [place] | | | | | | [address] | | | | + + + + + + | Clarity | CLEARComment: Testing | | EXTERNAL | | | | performed at [facility] | | LAB | | | | [facility];[address] | | | | | | [place] | | | | | | [address] | | | | + + + + + + | Specific | 1.025Comment: Testing | 1.002 - 1.030 | EXTERNAL | | | [place], | performed at [facility] | | LAB | | | Urine | [address] | | | | | | [place] | | | | | | [address] | | | | + + + + + + | Leukocyte | NEGATIVEComment: Testing | | EXTERNAL | | | Esterase, | performed at [facility] | | LAB | | | Urine | [address] | | | | | | [place] | | | | | | [address] | | | | + + + + + + | Nitrite, | NEGATIVEComment: Testing | | EXTERNAL | | | Urine | performed at [facility] | | LAB | | | | [address] | | | | | | [place] | | | | | | [address] | | | | + + + + + + | Urobilinoge | 0.2Comment: Testing | mg/dL | EXTERNAL | | | n, Urine | performed at [facility] | | LAB | | | | [address] | | | | | | [place] | | | | | | [address] | | | | + + + + + + | Protein, | NEGATIVEComment: Testing | mg/dL | EXTERNAL | | | Urine | performed at [facility] | | LAB | | | | [address] | | | | | | [place] | | | | | | [address] | | | | + + + + + + | pH, Urine | 5.5Comment: Testing | 5.0 - 8.0 | EXTERNAL | | | | performed at [facility] | | LAB | | | | [facility];[address] | | | | | | [place] | | | | | | [address] | | | | + + + + + + | Blood, | NEGATIVEComment: Testing | | EXTERNAL | | | Urine | performed at [facility] | | LAB | | | | [address] | | | | | | [place] | | | | | | [address] | | | | + + + + + + | Ketones | NEGATIVEComment: Testing | mg/dL | EXTERNAL | | | | performed at [facility] | | LAB | | | | [address] | | | | | | [place] | | | | | | [address] | | | | + + + + + + | Bilirubin, | NEGATIVEComment: Testing | | EXTERNAL | | | Urine | performed at [facility] | | LAB | | | | [address] | | | | | | [place] | | | | | | [address] | | | | + + + + + + | Glucose, | NEGATIVEComment: Testing | mg/dL | EXTERNAL | | | Urine | performed at [facility] | | LAB | | | | [address] | | | | | | [place] | | | | | | [address] | | | | + + + + + + | WBC, UA | NONE SEENComment: | 0 - 5 /hpf | EXTERNAL | | | | Testing performed at | | LAB | | | | [facility];[address] | | | | | | [place] | | | | | | [address] | | | | + + + + + + | RBC, UA | NONE SEENComment: | 0 - 2 /hpf | EXTERNAL | | | | Testing performed at | | LAB | | | | [facility];[address] | | | | | | [place] | | | | | | [address] | | | | + + + + + + | Epithelial | NONE SEENComment: | /lpf | EXTERNAL | | | Cells | Testing performed at | | LAB | | | | [facility];[address] | | | | | | [place] | | | | | | [address] | | | | + + + + + + | Bacteria, | 1+ (A)Comment: Testing | | EXTERNAL | | | UA | performed at [facility] | | LAB | | | | [facility];[address] | | | | | | [place] | | | | | | [address] | | | | + + + [...]
--- OUTSIDE RECORDS SUMMARY | ~2020-01-31 | XMS | Encounter Summary ---
Demographics + + + | Address | [address] | | | [place] [address] | + + + | Home Phone [...] | [facility] | | | and [place] | + + + | Organization | [facility] | [...] [place] | | | | | [address] | | + + + + + Care Team Providers + +------+ + | Care Avionics Shop Supervisor Name | Role | Phone | + +------+ + | Allison Fairchild NP | PCP | | + +------+ + Encounter Details +--------+ + + + + | Date | Type | Department | Care Team | Description | +--------+ + + + + | 09/08/ | Anesthesia | [facility] | April [place], | | | 2019 | [facility] | [facility] | MD Adriana DODSON | | | | | ANESTHESIA [address] | [place] [address] | | | | | [address] | [phone] | | | | | [place], [place] | | | | | | [address] | | | | | | [phone] | | | +--------+ + + + [...]
--- OUTSIDE RECORDS SUMMARY | ~2020-01-31 | XMS | Encounter Summary ---
Demographics + + + | Address | [address] | | | [place] [address] | + + + | Home Phone [...] Author | [facility] | | | and [place] | + + + | Organization | [facility] | | | and [place] | + + + | Address | Unknown | + + + | Phone | Unavailable | + + + Support + + + + + | Name | Relationship | Address | Phone | + + + + + | Teodora Cespedes | ECON | [address] | | | | | [facility] [place] | | | | | [address] | | + + + + + Care Team Providers + +------+ + | Care Surface Plate Finisher Name | Role | Phone | + +------+ + PCP | Unavailable | + +------+ + Encounter Details +--------+ + + + + | Date | Type | Department | Care Team | Description | +--------+ + + + + | 03/24/ | Hospital | [facility] | Conversion | | | 2013 | Encounter | [facility] | Transaction, | | | | | CLINIC [address] | Provider Unknown | | | | | [place], [place] | | | | | | [address] | (Fax) | | | | | [phone] | | | +--------+ + + + [...] EXTERNAL LAB | | Testing performed at [facility];[address] [place] [address];[place] [address] MRSA PCR | | | NEGATIVE Testing performed at | | | [address];[place] [address] | | + + + + +---------+ [...] EXTERNAL | | | | performed at [facility], [address] | | LAB | | | | [address], | | | | | | [place] [address] | | | | + + + + + + | Red Blood | 4.58Comment: Testing | 4.20 - 5.70 | EXTERNAL | | | Cells | performed at [facility], [address] | M/uL | LAB | | | Counted | [address], | | | | | | [place] [address] | | | | + + + + + + | Hemoglobin | 14.2Comment: Testing | 13.2 - 17.0 | EXTERNAL | | | | performed at [facility], [address] | g/dL | LAB | | | | [address], | | | | | | [place] [address] | | | | + + + + + + | Hematocrit, | 43.3Comment: Testing | 39.0 - 50.0 % | EXTERNAL | | | POC | performed at [facility], [address] | | LAB | | | | [address], | | | | | | [place] [address] | | | | + + + + + + | MCV | 94.5Comment: Testing | 80.0 - 100.0 fl | EXTERNAL | | | | performed at [facility], [address] | | LAB | | | | [address], | | | | | | [place] [address] | | | | + + + + + + | MCH | 31.0Comment: Testing | 27.0 - 34.0 pg | EXTERNAL | | | | performed at [facility], [address] | | LAB | | | | [address], | | | | | | [place] [address] | | | | + + + + + + | MCHC | 32.9Comment: Testing | 32.0 - 35.5 | EXTERNAL | | | | performed at [facility], [address] | g/dL | LAB | | | | [address], | | | | | | [place] [address] | | | | + + + + + + | RDW-CV | 48.6Comment: Testing | 37 - 53 fl | EXTERNAL | | | | performed at [facility], [address] | | LAB | | | | [address], | | | | | | [place] [address] | | | | + + + + + + | Platelet | 478 (H)Comment: Testing | 150 - 400 K/uL | EXTERNAL | | | Count | performed at [facility], [address] | | LAB | | | Plasma | [address], | | | | | | [place] [address] | | | | + + + + + + | MPV | 8.4Comment: Testing | fl | EXTERNAL | | | | performed at [facility], [address] | | LAB | | | | [address], | | | | | | [place] [address] | | | | + + + + + + | Differentia | AUTOMATEDComment: | | EXTERNAL | | | l Type | Testing performed at | | LAB | | | | [facility], [address] | | | | | | [place] | | | | | | [address] | | | | + + + + + + | % Segmented | 69.5Comment: Testing | % | EXTERNAL | | | | performed at [facility], [address] | | LAB | | | Neutrophils | [address], | | | | | | [place] [address] | | | | + + + + + + | % | 22.3Comment: Testing | % | EXTERNAL | | | Lymphocytes | performed at [facility], [address] | | LAB | | | | [address], | | | | | | [place] [address] | | | | + + + + + + | % Monocytes | 7.2Comment: Testing | % | EXTERNAL | | | | performed at [facility], [address] | | LAB | | | | [address], | | | | | | [place] [address] | | | | + + + + + + | % | 0.6Comment: Testing | % | EXTERNAL | | | Eosinophils | performed at [facility], [address] | | LAB | | | | [address], | | | | | | [place] [address] | | | | + + + + + + | % Basophils | 0.4Comment: Testing | % | EXTERNAL | | | | performed at [facility], [address] | | LAB | | | | [address], | | | | | | [place] [address] | | | | + + + + + + | Absolute | 9.4 (H)Comment: Testing | 1.9 - 7.4 K/uL | EXTERNAL | | | Segmented | performed at [facility], [address] | | LAB | | | Neutrophils | [address], | | | | | | [place] [address] | | | | + + + + + + | Absolute | 3.0Comment: Testing | 1.0 - 3.9 K/uL | EXTERNAL | | | Lymphocytes | performed at [facility], [address] | | LAB | | | | [address], | | | | | | [place] [address] | | | | + + + + + + | Absolute | 1.0 (H)Comment: Testing | 0 - 0.8 K/uL | EXTERNAL | | | Monocytes | performed at [facility], [address] | | LAB | | | | [address], | | | | | | [place] [address] | | | | + + + + + + | Absolute | 0.1Comment: Testing | 0 - 0.5 K/uL | EXTERNAL | | | Eosinophils | performed at [facility], [address] | | LAB | | | | [address], | | | | | | [place] [address] | | | | + + + + + + | Absolute | 0.1Comment: Testing | 0 - 0.1 K/uL | EXTERNAL | | | Basophils | performed at [facility], [address] | | LAB | | | | [address], | | | | | | [place] [address] | | | | + + + [...] | | | | | [place] [address] | | | | + + + + + + | K | 3.9Comment: Testing | 3.5 - 4.9 | EXTERNAL | | | | performed at [facility], [address] | mmol/L | LAB | | | | [address], | | | | | | [place] [address] | | | | + + + + + + | Cl | 106Comment: Testing | 99 - 109 mmol/L | EXTERNAL | | | | performed at [facility], [address] | | LAB | | | | [address], | | | | | | [place] [address] | | | | + + + + + + | CO2 | 27Comment: Testing | 23 - 32 mmol/L | EXTERNAL | | | | performed at [facility], [address] | | LAB | | | | [address], | | | | | | [place] [address] | | | | + + + + + + | Anion Gap | 9Comment: Testing | 5 - 20 mmol/L | EXTERNAL | | | | performed at [facility], [address] | | LAB | | | | [address], | | | | | | [place] [address] | | | | + + + + + + | Glucose, | 87Comment: Testing | 65 - 99 mg/dL | EXTERNAL | | | Fasting | performed at [facility], [address] | | LAB | | | | [address], | | | | | | [place] [address] | | | | + + + + + + | BUN | 19Comment: Testing | 8 - 25 mg/dL | EXTERNAL | | | | performed at [facility], [address] | | LAB | | | | [address], | | | | | | [place] [address] | | | | + + + + + + | Creatinine | 0.92Comment: Testing | 0.70 - 1.30 | EXTERNAL | | | | performed at [facility], [address] | mg/dL | LAB | | | | [place], | | | | | | [place] [address] | | | | + + + + + + | BUN/Creatin | 21Comment: Testing | | EXTERNAL | | | ine Ratio | performed at [facility], [address] | | LAB | | | | [address], | | | | | | [place] [address] | | | | + + + + + + | Calcium | 9.8Comment: Testing | 8.5 - 10.2 | EXTERNAL | | | | performed at [facility], [address] | mg/dL | LAB | | | | [address], | | | | | | [place] [address] | | | | + + + [...] | | | | | | at [facility], [address] | | | | | | [place], | | | | | | [place] [address] | | | | + + + [...]
--- OUTSIDE RECORDS SUMMARY | ~2020-01-31 | XMS | Encounter Summary ---
Demographics + + + | Address | [address] | | | [place] [address] | + + + | Home Phone [...] + | Author | [facility] | | | and [place] | + + + | Organization | [facility] | | [...] [place] | | | | | [address] | | + + + + + Care Team Providers + +------+ + | Care Certifed Refrigeration Operator Name | Role | Phone | [...] | 09/11/ | Telephone | [facility] | Dc Naik MD | Appointment | | 2015 | | GASTROENTEROLOGY | [address], [place] | | | | | [address] [place] | [address] [place], [place] | | | | | [address] [place], [place] | [address] | | | | | [address] | | | | | | [phone] | | | +--------+ + + + [...]
--- OUTSIDE RECORDS SUMMARY | ~2020-01-31 | XMS | Encounter Summary ---
Demographics + + + | Address | [address] | | | [place] [address] | + + + | Home Phone [...] | Author | [facility] | | | and [place] | + + + | Organization | [facility] | [...] [place] | | | | | [address] | | + + + + + Care Team Providers + +------+ + | Care Assistant Store Manager Name | Role | Phone | [...] 2020 | | [address] | Mobile Home Set Up Person | fever; Night sweats; | | | | [place], [place] | | Thrombocytosis | | | | [address] | | ([facility]) | | | | [phone] | | | +--------+ + + + [...] | | | Absolute | performed at [facility];[address] | K/uL | LAB | | | | [address] | | [facility] | | | | [address];[place] [address] | | LABORATORY | | + + + + + + + + | Specimen | + + | Blood | + + + + + + + | Performing | Address | City/State/Zipcode | Phone Number | | Organization | | | | + + + + + | REFERENCE LAB | [address] | [place] | [phone] | | [facility] | Blvd[address] | [address] | | | LABORATORY | | | | + + + + + | REFERENCE LAB | [address] | [place] | | | [facility] | Blvd. | [address] | | | LABORATORY | | | [...] | | | | performed at [facility];[address] | | | | | | [place] | | | | | | [place] [address] | | | | | | | | | | + + + + + + + + | Specimen | + + | Blood | + + + + + + + | Performing | Address | City/State/Zipcode | Phone Number | | Organization | | | | + + + + + | REFERENCE LAB | [address] [place] [address] | [place], [place] | [phone] | | [facility] | Blvd. | [address] | | | LABORATORY | | | | + + + + + | REFERENCE LAB | [address] [place] [address] | [place], [place] | | | [facility] | Blvd. | [address] | | | LABORATORY | | | | + + + + + documented in this encounter Visit Diagnoses + + | Diagnosis | + + | Chills without fever Chills (without fever) | + + | Night sweats Generalized hyperhidrosis | + + | Thrombocytosis (HCC) Essential thrombocythemia | + + documented in this encounter"
--- OUTSIDE RECORDS SUMMARY | ~2020-01-31 | XMS | Encounter Summary ---
Demographics + + + | Address | [address] | | | [place] [address] | + + + | Home Phone | | + + + | Preferred Language | Unknown | + + + | Marital Status | | + + + | Roman Catholic Affiliation | 1013 | + + + | Race | Unknown | + + + | Ethnic Group | Unknown | + + + Author + + + | Author | [facility] | | | and [place] | + + + | Organization | [facility] | [...] [place] | | | | | [address] | | + + + + + Care Team Providers + +------+ + | Care Ram Press Operator Name | Role | Phone | [...] 2020 | | [address] | Barbering Teacher | fever); Erythema; | | | | [place], [place] | | 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 | [address] | | | LABORATORY | | | | + + + + + | REFERENCE LAB | [address] [facility] | [place], [place] | | | [facility] | Blvd. | [address] | | | LABORATORY | | | [...] | | | | | | MDRD IDGA traceable | | | | | | equation.Testing | | | | | | performed at [facility];[address] | | | | | | [facility] | | | | | | [facility];[place] [address] | | | | | | | | | | + + + + + + + + | Specimen | + + | Blood | + + + + + + + | Performing | Address | City/State/Zipcode | Phone Number | | Organization | | | | + + + + + | REFERENCE LAB | [address] [place] [address] | [place], [place] | [phone] | | [facility] | Blvd. | [address] | | | LABORATORY | | | | + + + + + | REFERENCE LAB | [address] [place] [address] | [place], [place] | | | [facility] | Blvd. | [address] | | | LABORATORY | | | [...] - 1.030 | REFERENCE | | | [place], | | | LAB | | | [...] | [address] [facility] | [place] | [phone] | | [facility] | Blvd. | [address] | | | LABORATORY | | | | + + + + + | REFERENCE LAB | [address] [facility] | [place] | | | [facility] | Blvd. | [address] | | | LABORATORY | | | [...] REFERENCE | | | | performed at [facility];[address] | | LAB | | | | [address] | | [facility] | | | | Blvd;[place] [address] | | LABORATORY | | + + + + + + + + | Specimen | + + | Blood | + + + + + + + | Performing | Address | City/State/Zipcode | Phone Number | | Organization | | | | + + + + + | REFERENCE LAB | [address] [place] [address] | [place], [place] | [phone] | | [facility] | Blvd. | [address] | | | LABORATORY | | | | + + + + + | REFERENCE LAB | [address] [place] [address] | [place], [place] | | | [facility] | Blvd. | [address] | | | LABORATORY | | | [...]
--- OUTSIDE RECORDS SUMMARY | ~2020-01-31 | XMS | Encounter Summary ---
Demographics + + + | Address | [address] | | | [place] [address] | + + + | Home Phone [...] | [facility] | | | and [place] | + + + | Organization | [facility] | [...] [place] | | | | | [address] | | + + + + + Care Team Providers + +------+ + | Care Spd Tech Name | Role | Phone | + +------+ + | Allison Fairchild NP | PCP | | + +------+ + Encounter Details +--------+ + + + + | Date | Type | Department | Care Team | Description | +--------+ + + + + | 09/09/ | Anesthesia | [facility] | April Lee, | | | 2019 | [facility] | MD Adriana DODSON | | | | | ANESTHESIA [address] | [place] [address] | | | | | [address] | [phone] | | | | | [place], [place] | | | | | | [address] | | | | | | [phone] | | | +--------+ + + + [...] on file. | + + +--------+ + +---------+ | Type | Details | Placement | Removal | +--------+ + +---------+ | Drain/ | 09/06/19; 1643; #1; Right; | 09/06/191643 by | | | Device | lateral; abdomen; collapsible | Marquez Xavier RN | | | Site | closed device; (15fr Anthony drain) | | | +--------+ + +---------+ | Drain/ | 09/06/19; 1723; #2; Left; | 09/06/19 1723 by | | | Device | abdomen; collapsible closed | Marquez Xavier RN | | | Site | device; (15fr anthony drain) | | | +--------+ + +---------+ | Wound | 09/06/19; 1809; Incision; | 09/06/191809 by | | | | abdomen; 1 midline, 7 | Andressa Alford RN | | | | percutaneous sites, 2 drain sites | | | +--------+ + +---------+ documented in this encounter Social History + [...]
--- OUTSIDE RECORDS SUMMARY | ~2020-01-31 | XMS | Encounter Summary ---
Demographics + + + | Address | [address] | | | [place] [address] | + + + | Home Phone | | + + + | Preferred Language | Unknown | + + + | Marital Status | | + + + | Sabianist Affiliation | Unknown | + + + | Race | White | + + + | Ethnic Group | Not or | + + + Author + + + | Author | [facility] | + + + | Organization | [facility] | + + + | Address | Unknown | + + + | Phone | Unavailable | + + + Support + + +---------+ + | Name | Relationship | Address | Phone | + + +---------+ + | Maria Isabel Cespedes | ECON | Unknown | | + + +---------+ + Care Team Providers + +------+ + | Care Category Development Manager Name | Role | Phone | [...] y | | Referring | [facility] [address] | | | | | | Provider [...] | | | | | | | [place], [place] | | | | | | | [address] | | | | | | | Phone: | | | | | | | [phone] | | | | | | | Fax: | | | | | | | [phone] | +--------+--------+ + + + + Encounter Details +--------+---------+ + + + | Date | Type | Department | Care Team | Description | +--------+---------+ + + + | 04/21/ | Office | [facility] | Jaspal Stevenson, | Allergic rhinitis, | | 2012 | Visit | Center at [facility] [address] | [address] | cause unspecified | | | | [address] | [place], [place] | (Primary Dx); | | | | Mailcode: CH5E | [address] | Deviated nasal | | | | [place] for [facility] | [phone] | septum; Hypertrophy | | | | and Healing, | | of nasal turbinates | | | | Building [address], [address]th | | | | | | Floor [place], [place] | | | | | | [address] | | | | | | [phone] | | | +--------+---------+ + + + [...] visit with this patient as recorded by HAILMA Ruiz. Jaspal Stevenson M.D., M.P.H., F.A.C.S. Director, [facility] Professor and Chief, Rhinology and Sinus Surgery Department of Otolaryngology/Head and Neck Surgery Ninoska medina PA -C - 04/21/2013 11:52 AM PDT I, NINOSKA OTIS, PA-C, am functioning as a scribe for Dr. Stevenson. [facility] HPI: Reza Cespedes is a 52 y.o. male who presents to the [facility] in [facility] [place] for Septal deviation and Turbinate hypertrophy. Current [...] | + +--------+ + + + | [place] NASAL | Routin | 04/22/2013 | Allergic [...]
--- OUTSIDE RECORDS SUMMARY | ~2020-01-31 | XMS | Encounter Summary ---
Demographics + + + | Address | [address] | | | [place] [address] | + + + | Home Phone [...] Author | [facility] | | | and [place] | + + + | Organization | [facility] | | | and [place] | [...] [place] | | | | | [address] | | + + + + + Care Team Providers + +------+ + | Care Silicator Name | Role | Phone | + [...] + | 11/16/ | Telephone | [facility] | Adrian Aponte MD | EGD | | 2018 | | GASTROENTEROLOGY | [address] | | | | | [address] [facility] | [place], [place] | | | | | [address] [place] | [address] | | | | | [address] | [phone] | | | | | [phone] | | | +--------+ + + + [...]
--- OUTSIDE RECORDS SUMMARY | ~2020-01-31 | XMS | Encounter Summary ---
Demographics + + + | Address | [address] | | | [place] [address] | + + + | Home Phone [...] + | Author | [facility] | | | and [place] | + + + | Organization | [facility] | [...] [address] | | | | | [place] | | | | | [address] | | + + + + + Care Team Providers + +------+ + | Care Associate Professor Of Engineering Name | Role | Phone | + +------+ + PCP | Unavailable | + +------+ + Encounter Details +--------+ + + + + | Date | Type | Department | Care Team | Description | +--------+ + + + + | 08/14/ | Hospital | [facility] | | | | 2012 | Encounter | [facility] | | | | | | [address] | | | | | | [place] [address] | | | | | | [phone] | | | +--------+ + + + [...]
--- OUTSIDE RECORDS SUMMARY | ~2020-01-31 | XMS | Encounter Summary ---
Demographics + + + | Address | [address] | | | [place] [address] | + + + | Home Phone [...] Author | [facility] | | | and [place] | + + + | Organization | [facility] | | | and [place] [...] [place] | | | | | [address] | | + + + + + Care Team Providers + +------+ + | Care Gas Meter Installer Helper Name | Role | Phone | [...] + + | 08/16/ | Telephone | [facility] | [place], | Follow-up(Procedure) | | 2019 | | INTERVENTIONAL | RN | | | | | RADIOLOGY [address] | | | | | | [address] | | | | | | [facility] [place] | | | | | | [address] | | | | | | [phone] | | | +--------+ + + + [...]
--- OUTSIDE RECORDS SUMMARY | ~2020-01-31 | XMS | Encounter Summary ---
Demographics + + + | Address | [address] | | | [place] [address] | + + + | Home Phone [...] Author | [facility] | | | and [place] | + + + | Organization | [facility] | | [...] [place] | | | | | [address] | | + + + + + Care Team Providers + +------+ + | Care Back End Architect Name | Role | Phone | [...] [place] | | | | | [address] | [address] | | | | | [phone] | [phone] | | | | | | | [...] EXTERNAL | | | | performed at [facility] | | LAB | | | | Health;[address] | | | | | | [place] | | | | | | [address] | | | | + + + [...]
--- OUTSIDE RECORDS SUMMARY | ~2020-01-31 | XMS | Encounter Summary ---
Demographics + + + | Address | [address] | | | [place] [address] | + + + | Home Phone | | + + + | Preferred Language | Unknown | + + + | Marital Status | | + + + | Presybeterian Affiliation | 1013 | + + + | Race | Unknown | + + + | Ethnic Group | Unknown | + + + Author + + + | Author | [facility] | | | and [place] | + + + | Organization | [facility] | | | and [place] | + [...] [place] | | | | | [address] | | + + + + + Care Team Providers + +------+ + | Care Quartz Orientator Name | Role | Phone | + +------+ + | Allison Fairchild NP | PCP | | + +------+ + Encounter Details +--------+ + + + + | Date | Type | Department | Care Team | Description | +--------+ + + + + | 09/06/ | Hospital | [facility] | Anival Stevenson MD | | | 2019 | Encounter | [facility] | [address] | | | | | ULTRASOUND [address] | [address] [place], [place] | | | | | [address] | [address] | | | | | [place], [place] | | | | | | [address] | | | | | | [phone] | | | +--------+ + + + [...] tablet by | 60 | 0 | 12/02/20 | | | (SEROQUEL) 50 MG | [...] ciprofloxacin | Take 1 tablet by | 28 | 0 | 09/03/20 | | | (CIPRO) 500 mg | mouth 2 times daily | tablet | | 19 | 0 | | tablet | for 14 days. | | | | | + + + +---------+ + + | metroNIDAZOLE | Take 1 tablet by | 42 | 0 | 09/03/20 | | | (FLAGYL) 500 MG | mouth 3 times daily | tablet | | 19 | 0 | | tablet | for 14 days. | | | | | + + + +---------+ + + documented as of this encounter Plan of Treatment + +---------+--------+ + + | Name | Type | Priori | Associated Diagnoses | Date/Time | | | | ty | | | + +---------+--------+ + + | STORED IMAGE GENERAL | Imaging | Routin | | 09/06/2019 8:40 AM | | SURGERY | | e | | PST | + +---------+--------+ + + documented as of this encounter Visit Diagnoses Not on filedocumented in this encounter"
--- OUTSIDE RECORDS SUMMARY | ~2020-01-31 | XMS | Encounter Summary ---
Demographics + + + | Address | [address] | | | [place] [address] | + + + | Home Phone [...] | [facility] | | | and [place] | + + + | Organization | [facility] | | | and [place] [...] [place] | | | | | [address] | | + + + + + Care Team Providers + +------+ + | Care Resident Care Provider Name | Role | Phone | + [...] + + | 09/23/ | Telephone | [facility] | Anival Stevenson MD | Results | | 2020 | | GENERAL SURGERY [address] | [address] | | | | | [address] | [address] [place], [place] | | | | | [place], [place] | [address] | | | | | [address] | | | | | | [phone] | | | +--------+ + + + [...]
--- OUTSIDE RECORDS SUMMARY | ~2020-01-31 | XMS | Encounter Summary ---
Demographics + + + | Address | [address] | | | [place] [address] | + + + | Home Phone [...] Team Providers + +------+ + | Care Dairy Truck Driver Name | Role | Phone | + +------+ + | Allison Fairchild COOK BOAT | PCP | | + +------+ + [...] | | | | | spondylosis | COOK BOAT Good | [address] | | | | | with | Lio | Krishan Ferrari | | | | | radiculopath | [facility] | [place], | | | | | y, lumbar | [address] | [place] | | | | | region | [address] | [address] | | | | | Acute kidney | [facility], | Phone: | | | | | failure, | [place] [address] | [phone] | | | | | unspecified | Phone: | Fax: | | | | | Other | [phone] | [phone] | | | | | disorder of | Fax: | | | | | | circulatory | [phone] | | | | | | system [...] | | | | | | NM NEW | | | | | | | PATIENT | | | | | | | LEVEL II [place] | | | | | | [...] | Visit | Physicians Tate Rehman MD [address] [facility] | stenosis (HCC) | | | | [address] | [address] | (Primary Dx); ESR | | | | Loop Physician's | [place], [place] | raised; 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, 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 | | | | [place], [place] | [phone] | (HCC) | | | | [address] | | | | | | [phone] | | | +--------+---------+ + + + [...] inflammation) on 2018 study per review with [facility] radiology - iliac artery dissection present on 01/2018 study per review with [facility] radiology- stable - proximal SMA may also be slightly abnormal on 11/2018 per review with [facility] radiology, leena mmend follow-up ultrasound, done 12/2018 limited but without obvious SMA changes - 02/2019: repeat CTA abd/pelvis but poor quality outside study with significant motion shannan fact, could not comment on renal aa or SMA. Chronic iliac dissection stable. Proximal aorta somewhat thickened. Overall suspicion for vasculitis low given variable vessel involvement, prolonged time period, dissections. Repeating CTA abd/pelvis at [facility] .S: Here with [place] Having pain in [...] HPI. Please review the scanned document in [facility] for full details. - Cold all [...] 1,000 mg by mouth four times daily. rp-itd-scczu acid-lutein (CENTRUM SILVER) 400-250 mcg oral tablet,chewable [...] review findings with radiology early next w [facility] Plan- - follow-up RPR - encouraged patient [...] the attestation. Chiquis Norman MD RHEUMATOLOGY AT [address] Mailcode: Op09 [place] [address] Associated attestation - Dejah Aguilera MD - 03/14/2019 1:52 PM PDTI have seen and ev aluated this patient with Dr. Norman. I agree with the documented findings, assessment, an d plan as detailed above. Dejah Aguilera MD RHEUMATOLOGY AT [address] Mailcode: Pv35 [place] [address] documented in this encounter Plan [...]
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
--- OUTSIDE RECORDS SUMMARY | ~2020-01-31 | XMS | Encounter Summary ---
Demographics + + + | Address | [address] | | | [place] [address] | + + + | Home Phone [...] | [facility] | | | and [place] | + + + | Organization | [facility] | | | [...] [place] | | | | | [address] | | + + + + + Care Team Providers + +------+ + | Care Sweeper Operator Highways Name | Role | Phone | + [...] [place] | | | | | [address] | [address] | | | | | [phone] | [phone] | | | | | | | [...] | CULTURE, BLOOD, 2ND | SONALI | 10/03/2013 | | Results for this | | SPECIMEN (NON-ORD) | | 4:05 PM | | procedure are in the | | | | PST | | results section. | + +--------+ + + + documented in this encounter Results Culture, Blood, 2nd Specimen (10/03/2013 4:05 PM PST) + + | Specimen | + + | | + + + + + | Narrative | Performed At | + + + | Specimen Description BLOOD | EXTERNAL LAB | | Testing performed at [facility] | | | Health;[address];[place] [address] CULTURE | | | NO GROWTH 6 DAYS | | | Testing performed at [facility], [address] [facility] [address], | | | [place] [address] REPORT STATUS | | | 10/09/2013 FINAL [...]
--- OUTSIDE RECORDS SUMMARY | ~2020-01-31 | XMS | Encounter Summary ---
Demographics + + + | Address | [address] | | | [place] [address] | + + + | Home Phone [...] Author | [facility] | | | and [place] | + + + | Organization | [facility] | | | and [...] [place] | | | | | [address] | | + + + + + Care Team Providers + +------+ + | Care Hay Rake Operator Name | Role | Phone | [...] | | | | | | | SD | | | | | | | ANESTHESIA | | | | | | | UPPER GI | | | | | | | ENDOSCOPIC | | | | | | | PX ERCP SD | | | | | | | [...] + + | 02/12/ | Hospital | [facility] | Dc Naik MD | | | 2018 | Encounter | MED CTR XRAY [address] | [address], [place] | | | | | [address] [place] | [address] [place], [place] | | | | | [place] [address] | [address] | | | | | [phone] | | | +--------+ + + + [...]
--- OUTSIDE RECORDS SUMMARY | ~2020-01-31 | XMS | Encounter Summary ---
Demographics + + + | Address | [address] | | | [place] [address] | + + + | Home Phone | | + + + | Preferred Language | Unknown | + + + | Marital Status | | + + + | Anabaptism Affiliation | Unknown | + + + | Race | White | + + + | Ethnic Group | Not or | + + + Author + + + | Author | [facility] | + + + | Organization | [facility] | + + + | Address | Unknown | + + + | Phone | Unavailable | + + + Support + + +---------+ + | Name | Relationship | Address | Phone | + + +---------+ + | Maria Isabel Cespedes | ECON | Unknown | | + + +---------+ + Care Team Providers + +------+ + | Care Logistics Lead Name | Role | Phone | [...] | 2019 | | Sahra Ybarra | [address] | / [place]) | | | | [address] | Krish[address] | | | | | Loop Physician's | [place], [place] | | | | | [address], 4th Floor | [address] | | | | | [place], [place] | [phone] | | | | | [address] | | | | | | [phone] | | | +--------+ + + + [...]
--- OUTSIDE RECORDS SUMMARY | ~2020-01-31 | XMS | Encounter Summary ---
Demographics + + + | Address | [address] | | | [place] [address] | + + + | Home Phone [...] | Author | [facility] | | | and [place] | + + + | Organization | [facility] [...] [place] | | | | | [address] | | + + + + + Care Team Providers + +------+ + | Care Rent Collector Name | Role | Phone | + [...] [place] | | | | | [address] | [address] | | | | | [phone] | [phone] | | | | | | | [...] EXTERNAL LAB | | Testing performed at [facility] | | | Health;[address];[place] [address] CULTURE | | | NO GROWTH 6 DAYS | | | Testing performed at [facility] [address], [address], | | | [place] [address] REPORT STATUS | | | 09/07/2013 FINAL [...]
--- OUTSIDE RECORDS SUMMARY | ~2020-01-31 | XMS | Encounter Summary ---
Demographics + + + | Address | [address] | | | [place] [address] | + + + | Home Phone | | + + + | Preferred Language | Unknown | + + + | Marital Status | | + + + | Adventism Affiliation | Unknown | + + + | Race | White | + + + | Ethnic Group | Not or | + + + Author + + + | Author | [facility] | + + + | Organization | [facility] | + + + | Address | Unknown | + + + | Phone | Unavailable | + + + Support + + +---------+ + | Name | Relationship | Address | Phone | + + +---------+ + | Maria Isabel Cespedes | ECON | Unknown | | + + +---------+ + Care Team Providers + +------+ + | Care Highway Worker Name | Role | Phone | [...] | | | | | | [place], [address] [place] [address] | | | | | | [place], [place] | | | | | | [address] | | | | | | [phone] | | | +--------+------+ + + + [...] by | | | | | | [address] | | | | | | [address], [facility] | | | | | | [address] | | | | | | [phone]. | | | | | | Melecio [...] [facility] | [address] | [place], [place] | | | UNIV PTH - INTFC | | [address] | | + + + + + [...] [facility] | [address] | [place] [address] | | | SERVICES, CORE | PARK [...] | + + + + + | [facility] | [address] | [place] [address] | | | SERVICES, CORE | DORIAN [...] | + + + + + | [facility] | [address] | [place] [address] | | | SERVICES, CORE | DORIAN [...] [facility] | | | NIL | by [address] | | REG UNIV | | | | [address], [facility],[place] | | PTH - INTFC | | | | [address] | | | | | | [phone]. | | | | | | Melecio [...] (http://www.cdc.gov/mmwr | | | | | | /preview/mmwrhtml/kv3639 | | | | | | a1.htm), [...] [facility] | [address] | [place], [place] | | | UNIV PTH - INTFC | | [address] | | + + + + + [...] | + + + + + | [facility] | [address] | [place] [address] | | | SERVICES, CORE | DORIAN [...] [facility] | [address] | [place] [address] | | | SERVICES, CORE | PARK [...] | | | LABORATORY | | | SRI LANKAN | | | SERVICES, | | | [...] the MDRD equation recommended by the | [facility] | | National Kidney Disease Education [...] | + + + + + | [facility] | [address] | [place] [address] | | | SERVICES, CORE | [address] | | | + + + + + SEDIMENTATION RATE (11/02/2018 4:55 PM PST) + +--------+ + + + | Component | Value | Ref Range | Performed | Pathologist | | | | | At | Signature | + +--------+ + + + | SEDIMENTATI | 54 (H) | 0 - 20 mm/hr | ARRUBÉN | | | ON RATE | | [...] [facility] | [address] | [place] [address] | | | [place]TEGA BOOGIE | [address] | | | + + + + + documented in this encounter Visit Diagnoses + + | Diagnosis | + + | 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
--- OUTSIDE RECORDS SUMMARY | ~2020-01-31 | XMS | Encounter Summary ---
Demographics + + + | Address | [address] | | | [place] [address] | + + + | Home Phone | | + + + | Preferred Language | Unknown | + + + | Marital Status | | + + + | Mu-Ism Affiliation | 1013 | + + + | Race | Unknown | + + + | Ethnic Group | Unknown | + + + Author + + + | Author | [facility] | | | and [place] | + + + | Organization | [facility] | [...] [address] | | | | | [facility] [place] [place] | | | | | [address] | | + + + + + Care Team Providers + +------+ + | Care Sanitary Napkin Machine Tender Name | Role | Phone [...] | | | | [address] [facility] | [place], [place] | | | | | [address] [place] | [address] | | | | | [address] | [phone] | | | | | [phone] | | | +--------+ + + + [...] ST. | [address] | [place] | | | [facility] | | [address], [facility] | | | - LABORATORY [...]
--- OUTSIDE RECORDS SUMMARY | ~2020-01-31 | XMS | Encounter Summary ---
Demographics + + + | Address | [address] | | | [place] [address] | + + + | Home Phone [...] | Author | [facility] | | | and [place] | + + + | Organization | [facility] [...] [place] | | | | | [address] | | + + + + + Care Team Providers + +------+ + | Care Cinder Snapper Name | Role | Phone | + [...] + + | 09/02/ | Telephone | [facility] | Anival Stevenson MD | Other | | 2019 | | GENERAL SURGERY [address] | [address] | | | | | [address] | [address] [place], [place] | | | | | [place], [place] | [address] | | | | | [address] | | | | | | [phone] | | | +--------+ + + + [...]
--- OUTSIDE RECORDS SUMMARY | ~2020-01-31 | XMS | Encounter Summary ---
Demographics + + + | Address | [address] | | | [place] [address] | + + + | Home Phone [...] Author | [facility] | | | and [place] | + + + | Organization | [facility] | | [...] [place] | | | | | [address] | | + + + + + Care Team Providers + +------+ + | Care Electro Mechanical Technologist Name | Role | Phone | + +------+ + | Allison Fairchild NP | PCP | | + +------+ + Reason for Visit + + + | Reason | Comments | + + + | Results, Pathology | | + + + | Results, Imaging | | + + + Encounter Details +--------+ + + + + | Date | Type | Department | Care Team | Description | +--------+ + + + + | 12/16/ | Telephone | [facility] | Adrian Aponte MD | Results, Pathology; | | 2015 | | GASTROENTEROLOGY | [address] [facility] | Results, Imaging | | | | [address] [facility] | [place], [place] | | | | | [address] [place], [place] | [address] | | | | | [address] | [phone] | | | | | [phone] | | | +--------+ + + + [...]
--- OUTSIDE RECORDS SUMMARY | ~2020-01-31 | XMS | Encounter Summary ---
Demographics + + + | Address | [address] | | | [place] [address] | + + + | Home Phone [...] [facility] | | | and [place] | + + + | Organization | [facility] | | [...] [place] | | | | | [address] | | + + + + + Care Team Providers + +------+ + | Care Licensed Clinical Psychologist Name | Role | Phone | + [...] [place] | | | | | [address] | [address] | | | | | [phone] | [phone] | | | | | | | [...] | | | External | performed at [facility];[address] | | LAB | | | | [place] | | | | | | [address];[place] [address] | | | | + + + [...]
--- OUTSIDE RECORDS SUMMARY | ~2020-01-31 | XMS | Encounter Summary ---
Demographics + + + | Address | [address] | | | [place] [address] | + + + | Home Phone [...] | Author | [facility] | | | and [place] | + + + | Organization | [facility] [...] [place] | | | | | [address] | | + + + + + Care Team Providers + +------+ + | Care Repairer Maintenance Building Name | Role | Phone | + +------+ + | Allison Fairchild NP | PCP | | + +------+ + Encounter Details +--------+ + + + + | Date | Type | Department | Care Team | Description | +--------+ + + + + | 02/07/ | Hospital | [facility] | Conversion | | | 2016 | Encounter | CENTER [facility] | Transaction, | | | | | [address] | Provider Unknown | | | | | [place], [place] | [phone] | | | | | [address] | | | | | | [phone] | Jamie Bentley MD | | | | | | [address] [facility] [address] | | | | | | [address] [place], [place] | | | | | | [address] | | | | | | | [...] | | | | T[facility], [address] [facility] [address] | | | | | | [place] | | | | | | [address] | | | | + + + + + + | Red Blood | 4.93Comment: Testing | 4.20 - 5.70 | EXTERNAL | | | Cells | performed at [facility], [address] | M/uL | LAB | | | Counted | [facility] [place], | | | | | | [place] [address] | | | | + + + + + + | Hemoglobin | 15.3Comment: Testing | 13.2 - 17.0 | EXTERNAL | | | | performed at TC, [address] | g/dL | LAB | | | | [address], | | | | | | [place] [address] | | | | + + + + + + | Hematocrit, | 45.9Comment: Testing | 39.0 - 50.0 % | EXTERNAL | | | POC | performed at [facility], [address] | | LAB | | | | [place], | | | | | | [place] [address] | | | | + + + + + + | MCV | 93.2Comment: Testing | 80.0 - 100.0 fl | EXTERNAL | | | | performed at [facility], [address] | | LAB | | | | [address], | | | | | | [place] [address] | | | | + + + + + + | MCH | 31.1Comment: Testing | 27.0 - 34.0 pg | EXTERNAL | | | | performed at [facility], [address] | | LAB | | | | [address], | | | | | | [place] [address] | | | | + + + + + + | MCHC | 33.4Comment: Testing | 32.0 - 35.5 | EXTERNAL | | | | performed at [facility], [address] | g/dL | LAB | | | | [address], | | | | | | [place] [address] | | | | + + + + + + | RDW-CV | 47.7Comment: Testing | 37 - 53 fl | EXTERNAL | | | | performed at T[facility], [address] | | LAB | | | | [address], | | | | | | [place] [address] | | | | + + + + + + | Platelet | 379Comment: Testing | 150 - 400 K/uL | EXTERNAL | | | Count | performed at TCL, [address] | | LAB | | | Plasma | [address], | | | | | | [place] [address] | | | | + + + + + + | MPV | 9.3Comment: Testing | fl | EXTERNAL | | | | performed at [facility], [address] | | LAB | | | | [place], | | | | | | [place] [address] | | | | + + + + + + | Differentia | AUTOMATEDComment: | | EXTERNAL | | | l Type | Testing performed at | | LAB | | | | [facility], [address] | | | | | | [place] | | | | | | [address] | | | | + + + + + + | % Segmented | 59.79Comment: Testing | % | EXTERNAL | | | | performed at [facility]CL, [address] | | LAB | | | Neutrophils | [address] [place], | | | | | | [place] [address] | | | | + + + + + + | % | 29.58Comment: Testing | % | EXTERNAL | | | Lymphocytes | performed at [facility], [address] | | LAB | | | | [address], | | | | | | [place] [address] | | | | + + + + + + | % Monocytes | 8.82Comment: Testing | % | EXTERNAL | | | | performed at [facility], [address] | | LAB | | | | [address], | | | | | | [place] [address] | | | | + + + + + + | % | 0.86Comment: Testing | % | EXTERNAL | | | Eosinophils | performed at [facility], [address] | | LAB | | | | [place], | | | | | | [place] [address] | | | | + + + + + + | % Basophils | 0.95Comment: Testing | % | EXTERNAL | | | | performed at [facility], [address] | | LAB | | | | [address], | | | | | | [place] [address] | | | | + + + + + + | Absolute | 8.92 (H)Comment: Testing | 1.90 - 7.40 | EXTERNAL | | | Segmented | performed at [facility], [address] | K/uL | LAB | | | Neutrophils | [address], | | | | | | [place] [address] | | | | + + + + + + | Absolute | 4.41 (H)Comment: Testing | 1.00 - 3.90 | EXTERNAL | | | Lymphocytes | performed at [facility], [address] | K/uL | LAB | | | | [address], | | | | | | [place] [address] | | | | + + + + + + | Absolute | 1.32 (H)Comment: Testing | 0.00 - 0.80 | EXTERNAL | | | Monocytes | performed at [facility], [address] | K/uL | LAB | | | | [address], | | | | | | [place] [address] | | | | + + + + + + | Absolute | 0.13Comment: Testing | 0.00 - 0.50 | EXTERNAL | | | Eosinophils | performed at [facility], [address] | K/uL | LAB | | | | [address], | | | | | | [place] [address] | | | | + + + + + + | Absolute | 0.14 (H)Comment: Testing | 0.00 - 0.10 | EXTERNAL | | | Basophils | performed at [facility], [address] | K/uL | LAB | | | | [address], | | | | | | [place] [address] | | | | + + + [...]
--- OUTSIDE RECORDS SUMMARY | ~2020-01-31 | XMS | Encounter Summary ---
Demographics + + + | Address | [address] | | | [place] [address] | + + + | Home Phone | | + + + | Preferred Language | Unknown | + + + | Marital Status | | + + + | Church Affiliation | 1013 | + + + | Race | Unknown | + + + | Ethnic Group | Unknown | + + + Author + + + | Author | [facility] | | | and [place] | + + + | Organization | [facility] | | | and [...] [place] | | | | | [address] | | + + + + + Care Team Providers + +------+ + | Care Seamer Operator Name | Role | Phone | [...] 2018 | | GASTROENTEROLOGY | [address], [place] | | | | | [address] [place] | [address] [place], [place] | | | | | [address] [place], [place] | [address] | | | | | [address] | | | | | | [phone] | | | +--------+ + + + [...]
--- OUTSIDE RECORDS SUMMARY | ~2020-01-31 | XMS | Encounter Summary ---
Demographics + + + | Address | [address] | | | [place] [address] | + + + | Home Phone | | + + + | Preferred Language | Unknown | + + + | Marital Status | | + + + | Buddhism Affiliation | Unknown | + + + [...] Team Providers + +------+ + | Care Gallery Or Museum Technician Name | Role | Phone | [...]
--- OUTSIDE RECORDS SUMMARY | ~2020-01-31 | XMS | Encounter Summary ---
Demographics + + + | Address | [address] | | | [place] [address] | + + + | Home Phone [...] Author | [facility] | | | and [place]ana | + + + | Organization | [facility] | [...] [place] | | | | | [address] | | + + + + + Care Team Providers + +------+ + | Care Inoculator Name | Role | Phone | + [...] | | | | [address] [facility] | [place], [place] | | | | | [address] [place] | [address] | | | | | [address] | [phone] | | | | | [phone] | | | +--------+--------+ + + + [...]
--- OUTSIDE RECORDS SUMMARY | ~2020-01-31 | XMS | Encounter Summary ---
Demographics + + + | Address | [address] | | | [place] [address] | + + + | Home Phone [...] | [facility] | | | and [place] | + + + | Organization | [facility] [...] [address] | | | | | [place] | | | | | [address] | | + + + + + Care Team Providers + +------+ + | Care Nutrition Therapist Name | Role | Phone | + +------+ + | Allison Fairchild NP | PCP | | + +------+ + Encounter Details +--------+ + + + + | Date | Type | Department | Care Team | Description | +--------+ + + + + | 09/08/ | Anesthesia | [facility] | April Lee, | | | 2019 | [facility] | [facility] | MD Adriana DODSON | | | | | AN[address]HESIA [address] | [place] [address] | | | | | [address] | [phone] | | | | | [place], [place] | | | | | | [address] | | | | | | [phone] | | | +--------+ + + + [...]
--- OUTSIDE RECORDS SUMMARY | ~2020-01-31 | XMS | Encounter Summary ---
Demographics + + + | Address | [address] | | | [place] [address] | + + + | Home Phone [...] Author | [facility] | | | and [place] | + + + | Organization | [facility] | | | and [place] [...] [place] | | | | | [address] | | + + + + + Care Team Providers + +------+ + | Care Field Attendant Name | Role | Phone | [...] + + | 09/06/ | Documentati | [facility] | Lesa Dodd, | Other (Labs from | | 2019 | on | INFECTIOUS DISEASE | [employer] [facility] | [facility] | | | | [address] | | 08/29/2019(CBC,CMP,E | | | | [place] | | SR,CRP)..) | | | | [address] | | | | | | [phone] | | | +--------+ + + + [...] of this encounter Progress Notes Lesa Dodd, Jig And Fixture Maker - 09/06/2019 2:12 PM PSTLabs from [facility] DOS 08/08(CBC,CMP,ESR,CRP).. RECEIVED: 09/05/2019 Labs were abstracted into [facility] and sent to scan. Nicolette CMA. P [...] [address] | [place] | [phone] | | [facility] [place] | | [address] | | + + + + + [...] REFERENCE LAB | [address] | [place] | [phone] | | [facility] | | [address] | | + + + + + [...] [address] | [place] | [phone] | | [facility] | | [address] | | + + + + + [...] + + + | REFERENCE LAB | [address] | [place] | [phone] | | [place] | | [address] | | + + + + + documented in this encounter Visit Diagnoses Not on filedocumented in this encounter"
--- OUTSIDE RECORDS SUMMARY | ~2020-01-31 | XMS | Encounter Summary ---
Demographics + + + | Address | [address] | | | [place] [address] | + + + | Home Phone [...] | Author | [facility] | | | and [place] | + + + | Organization | [facility] | | [...] [place] | | | | | [address] | | + + + + + Care Team Providers + +------+ + | Care Mines Inspector Name | Role | Phone | + +------+ + | Allison Fairchild NP | PCP | | + +------+ + Encounter Details +--------+ + + + + | Date | Type | Department | Care Team | Description | +--------+ + + + + | 03/31/ | Orders Only | [facility] | [place] | Adria of | | 2018 | | SYSTEM GENERIC OP | MD [address] | renal artery (HCC); | | | | CONVERSION [address] | [place] | Dissection of iliac | | | | [address] [place], [place] | [place] [address] | artery (HCC) | | | | [address] | | | | | | [phone] | | | +--------+ + + + [...] | | + +------+--------+ + + | Creatinine | Lab | Routin | Atherosclerosis of | Expected: | | | | e | renal artery (HCC) | 10/28/2018, Expires: | | | | | | 10/28/2019 | + +------+--------+ + + documented as of this encounter Visit Diagnoses + + | Diagnosis | + + | Atherosclerosis of renal artery (HCC) Atherosclerosis of renal artery | + + | 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
--- OUTSIDE RECORDS SUMMARY | ~2020-01-31 | XMS | Encounter Summary ---
Demographics + + + | Address | [address] | | | [place] [address] | + + + | Home Phone | | + + + | Preferred Language | Unknown | + + + | Marital Status | | + + + | Taoist Affiliation | Unknown | + + + [...] + + +---------+ + | Maria Isabel eCspedes | ECON | Unknown | | + + +---------+ + Care Team Providers + +------+ + | Care Other Spatial Scientist Name | Role | Phone | [...] | | | [address] | [facility] | | | | | Loop Physician's | [place], [place] | | | | | [place], [facility] Floor | [address] | | | | | [place], [place] | [phone] | | | | | [address] | | | | | | [phone] | | | +--------+ + + + [...]
--- OUTSIDE RECORDS SUMMARY | ~2020-01-31 | XMS | Encounter Summary ---
Demographics + + + | Address | [address] | | | [place] [address] | + + + | Home Phone [...] Author | [facility] | | | and [place] | + + + | Organization | [facility] | | | and [...] [place] | | | | | [address] | | + + + + + Care Team Providers + +------+ + | Care Facilities Officer Name | Role | Phone | [...] + + | 08/24/ | Office | [facility] | Austin Etienne, | Infected | | 2019 | Visit | INFECTIOUS DISEASE | Juan Chanel MD | hernioplasty mesh, | | | | [address] | [address] | subsequent encounter | | | | [place], [place] | [place] [address] | (Primary Dx); | | | | [address] | [phone] | Polymicrobial | | | | [phone] | | bacterial infection; | | | [...] Washington MD - 08/24/2019 10:00 AM PST [facility] Service: Infectious Diseases Outpatient Follow [...] Procedure: ERCP; Surgeon: Dc Naik MD; Location: [facility] ERCP N/A 02/12/2018 Procedure: ERCP; Surgeon: Dc Naik MD; Location: [facility] FRACTURE SURGERY 2011 skull/facial HARDWARE REMOVAL Right Hardware placement and removal thumb HERNIA REPAIR pt has 2 hernia repairs and 3rd revision on 12-18-14 hip screw removed Right 2013 Nasal reconstruction 1977 right hip/pelvis surgery 2012 SLAP 2011 UPPER GASTROINTESTINAL ENDOSCOPY UPPER GASTROINTESTINAL ENDOSCOPY N/A 10/23/2015 Procedure: EGD; Surgeon: Adrian Aponte MD; Location: [facility] UPPER GASTROINTESTINAL ENDOSCOPY N/A 11/18/2017 Procedure: EGD; Surgeon: Adrian Aponte MD; Location: [facility] XR LUMBAR SPINE [...] file Gets together: Not on file Attends druze service: Not on file Active member of [...] Requests LAC Special Requests Testing performed at [facility];[address] [place] [address];[place] [address] RESULT NO GROWTH 6 DAYS RESULT Testing performed at [facility], [address] [place] [address] Culture, Blood Result Value Ref Range Special Requests LEFT AC Special Requests Testing performed at [facility];[address] [place] [address];[place] [address] RESULT NO GROWTH 6 DAYS RESULT Testing performed at [facility], [address] [place] [address] Culture, Blood Result Value Ref Range Special Requests RIGHT HAND Special Requests Testing performed at [facility];[address] [place] [address];[place] [address] RESULT NO GROWTH 6 DAYS RESULT Testing performed at [facility], [address] [place] [address] Culture, Urine Result Value Ref Range RESULT NO GROWTH RESULT Testing performed at [facility], [address] [place] [address] MRSA NAAT Result Value Ref Range SOURCE: NARES(NOSE) Result NEGATIVE MRSNEG Culture, Body Fluid Sterile Result Value Ref Range Gram Stain Result 4+ WBC'S SEEN Gram Stain Result 1+ GRAM POSITIVE COCCI Gram Stain Result 3+ GRAM NEGATIVE RODS RESULT 2+ ESCHERICHIA COLI (A) RESULT 2+ MIXED GRAM POSITIVE DEEPA RESULT 2+ MIXED ANAEROBIC DEEPA RESULT Testing performed at [facility], [address] [place] [address] Susceptibility Escherichia coli - ANDREW Ampicillin SUSCEPTIBLE Sensitive Ampicillin + Sulbactam SUSCEPTIBLE Sensitive Cefepime SUSCEPTIBLE Sensitive Cefoxitin SUSCEPTIBLE Sensitive Ceftazidime SUSCEPTIBLE Sensitive Ceftriaxone SUSCEPTIBLE Sensitive Ciprofloxacin SUSCEPTIBLE Sensitive Gentamicin SUSCEPTIBLE Sensitive Levofloxacin SUSCEPTIBLE Sensitive Tobramycin SUSCEPTIBLE Sensitive Trimethoprim + Sulfamethoxazole* SUSCEPTIBLE Sensitive * Testing performed at [facility], [address] [place] [address] CBC with Differential Result Value Ref Range [...] Color, UA STRAW Clarity, UA CLEAR Specific Barling, Urine 1.029 1.002 - 1.030 Leukocyte esterase, [...] Polymicrobial bacterial infection Allergy to penicillin terminal operations supervisor (current) use of antibiotics - PICC [...] The patient will also need evaluation by solar project coordination specialist to undergo penicillin allergy t heathering. [...] drug allergy | + + | terminal operations supervisor (current) use of antibiotics | + + documented in this encounter
--- OUTSIDE RECORDS SUMMARY | ~2020-01-31 | XMS | Encounter Summary ---
Demographics + + + | Address | [address] | | | [place] [address] | + + + | Home Phone [...] | Author | [facility] | | | and [place] | + + + | Organization | [facility] | [...] [place] | | | | | [address] | | + + + + + Care Team Providers + +------+ + | Care Secondary School Special Ed Teacher Name | Role | Phone | + +------+ + | Allison Fairchild NP | PCP | | + +------+ + Encounter Details +--------+ + + + + | Date | Type | Department | Care Team | Description | +--------+ + + + + | 04/26/ | Orders Only | [facility] | Rich Washington MD | 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
--- OUTSIDE RECORDS SUMMARY | ~2020-01-31 | XMS | Encounter Summary ---
Demographics + + + | Address | [address] | | | [place] [address] | + + + | Home Phone [...] [facility] | | | and [place] | + + + | Organization | [facility] | [...] [place] | | | | | [address] | | + + + + + Care Team Providers + +------+ + | Care Fitting Room Associate Name | Role | Phone | [...] [place] | | | | | [address] | [address] | | | | | [phone] | [phone] | | | | | | | [...] | | | | | performed at [facility], [address] | | | | | | [facility] | | | | | | [place] [address] | | | | + + + + + + | Result | 1.1 (H)Comment: Testing | U | EXTERNAL | | | | performed at [facility], [address] | | LAB | | | | [place] | | | | | | [place] [address] | | | | + + + [...]
--- OUTSIDE RECORDS SUMMARY | ~2020-01-31 | XMS | Encounter Summary ---
Demographics + + + | Address | [address] | | | [place] [address] | + + + | Home Phone | | + + + | Preferred Language | Unknown | + + + | Marital Status | | + + + | Moravian Affiliation | Unknown | + + + | Race | White | + + + | Ethnic Group | Not or | + + + Author + + + | Author | [facility] | + + + | Organization | [facility] | + + + | Address | Unknown | + + + | Phone | Unavailable | + + + Support + + +---------+ + | Name | Relationship | Address | Phone | + + +---------+ + | Maria Isabel Cespedes | ECON | Unknown | | + + +---------+ + Care Team Providers + +------+ + | Care Textile Worker Name | Role | Phone | [...] [address] | | | | | | [place], [place] | | | | | | [address] | | | +--------+ + + + [...]
--- OUTSIDE RECORDS SUMMARY | ~2020-01-31 | XMS | Encounter Summary ---
Demographics + + + | Address | [address] | | | [place] [address] | + + + | Home Phone [...] Author | [facility] | | | and [place] | + + + | Organization | [facility] | | | [...] [place] | | | | | [address] | | + + + + + Care Team Providers + +------+ + | Care Manager Six Sigma Name | Role | Phone | + [...] | | | | | | [address] [place], [place] | | | | | | [address] | | | | | | [phone] | | | +--------+ + + + [...]
--- OUTSIDE RECORDS SUMMARY | ~2020-01-31 | XMS | Encounter Summary ---
Demographics + + + | Address | [address] | | | [place] [address] | + + + | Home Phone [...] Author | [facility] | | | and [place] | + + + | Organization | [facility] | | [...] [place] | | | | | [address] | | + + + + + Care Team Providers + +------+ + | Care Builder Operator Name | Role | Phone | [...] | | | | | | | CT | | | | | | | ANESTHESIA | | | | | | | UPPER GI | | | | | | | ENDOSCOPIC | | | | | | | PX ERCP CT | | | | | | [...] | | | | | [address] | [address] [place] | | | | | [place], [place] | [place] [address] | | | | | [address] | [phone] | | | | | [phone] | | | +--------+ + + + [...] 02/12/18 1207 by | | caitlin | [id number] catheter system; | Rosy Mcmanus, | Shayna [...]
--- OUTSIDE RECORDS SUMMARY | ~2020-01-31 | XMS | Encounter Summary ---
Demographics + + + | Address | [address] | | | [place] [address] | + + + | Home Phone [...] | Author | [facility] | | | and [place] | + + + | Organization | [facility] | | [...] [place] | | | | | [address] | | + + + + + Care Team Providers + +------+ + | Care Goodyear Stitcher Name | Role | Phone | + +------+ + PCP | Unavailable | + +------+ + Encounter Details +--------+ + + + + | Date | Type | Department | Care Team | Description | +--------+ + + + + | 08/28/ | Hospital | [facility] | Conversion | Pain | | 2014 | Encounter | CONVERSION [address] | Transaction, | | | | [address] | Provider Unknown | | | | | [place], [place] | | | | | | [address] | (Fax) | | | | | [phone] | | | +--------+ + + + [...]
--- OUTSIDE RECORDS SUMMARY | ~2020-01-31 | XMS | Encounter Summary ---
Demographics + + + | Address | [address] | | | [place] [address] | + + + | Home Phone [...] | Author | [facility] | | | and [place] | + + + | Organization | [facility] | | | and [...] [place] | | | | | [address] | | + + + + + Care Team Providers + +------+ + | Care Equipment Manager Name | Role | Phone | [...] | | 2015 | | [address] | [address] | | | | | [place] | [place] | | | | | [address] | [address] | | | | | [phone] | | | | | | | [...] | | | Basophils | performed at [facility];[address] | [address] | LAB | | | | [place] | | | | | | [address];[place] [address] | | | | + + + [...]
--- OUTSIDE RECORDS SUMMARY | ~2020-01-31 | XMS | Encounter Summary ---
Demographics + + + | Address | [address] | | | [place] [address] | + + + | Home Phone [...] Author | [facility] | | | and [place] | + + + | Organization | [facility] | | [...] [place] | | | | | [address] | | + + + + + Care Team Providers + +------+ + | Care City Driver Name | Role | Phone | [...] | [address] | [place], [place] | | | | | [address] [place] | [address] | | | | | [address] | [phone] | | | | | [phone] | | | +--------+ + + + [...]
--- OUTSIDE RECORDS SUMMARY | ~2020-01-31 | XMS | Encounter Summary ---
Demographics + + + | Address | [address] | | | [place] [address] | + + + | Home Phone [...] | Author | [facility] | | | and [place] | + + + | Organization | [facility] | | [...] [place] | | | | | [address] | | + + + + + Care Team Providers + +------+ + | Care Consultant Luxury And Auto. Vice President [employer] (Ex ) Name | Role | Phone | + [...] + + | 09/21/ | Office | [facility] | Anival Stevenson MD | Chills (without | | 2020 | Visit | GENERAL SURGERY [address] | [address] | fever) (Primary Dx); | | | | [address] | [address] [place], [place] | Erythema; Surgical | | | | [place], [place] | [address] | follow-up care | | | | [address] | | | | | | [phone] | | | +--------+---------+ + + + [...] REFERENCE | | | | performed at [facility];[address] | | LAB | | | | [place] | | [facility] | | | | [address];[place] [address] | | LABORATORY | | + + + + + + + + | Specimen | + + | Blood | + + + + + + + | Performing | Address | City/State/Zipcode | Phone Number | | Organization | | | | + + + + + | REFERENCE LAB | [address] | [place] | [phone] | | [facility] | Blvd. | [address] | | | LABORATORY | | | | + + + + + | REFERENCE LAB | [address] | [place] | | | [facility] | Blvd. | [address] | | | LABORATORY | | | [...] - 1.030 | REFERENCE | | | [place], | | | LAB | | | [...] + | REFERENCE LAB | [address] [facility] | [place] | [phone] | | [facility] | Blvd. | [address] | | | LABORATORY | | | | + + + + + | REFERENCE LAB | [address] [place] [address] | [place] | | | [facility] | Blvd. | [address] | | | LABORATORY | | | [...]
--- OUTSIDE RECORDS SUMMARY | ~2020-01-31 | XMS | Encounter Summary ---
Demographics + + + | Address | [address] | | | [place] [address] | + + + | Home Phone [...] | [facility] | | | and [place] | + + + | Organization | [facility] | | [...] [place] | | | | | [address] | | + + + + + Care Team Providers + +------+ + | Care Programmer Operator Numerical Control Name | Role | Phone | [...] [place] | | | | | | [address] | | | | | | [phone] | | | +--------+ + + + [...]
--- OUTSIDE RECORDS SUMMARY | ~2020-01-31 | XMS | Encounter Summary ---
Demographics + + + | Address | [address] | | | [place] [address] | + + + | Home Phone [...] | [facility] | | | and [place] | + + + | Organization | [facility] | | | and [place] | + + + | Address | Unknown | + + + | Phone | Unavailable | + + + Support + + + + + | Name | Relationship | Address | Phone | + + + + + | Teodora Cespedes | ECON | [address] | | | | | [place] | | | | | [address] | | + + + + + Care Team Providers + +------+ + | Care Waxing Machine Operator Name | Role | Phone [...] 2017 | | GASTROENTEROLOGY | [address], [place] | | | | | [address] [place] | [address] [place], [place] | | | | | [address] [place], [place] | [address] | | | | | [address] | | | | | | [phone] | | | +--------+ + + + [...]
--- OUTSIDE RECORDS SUMMARY | ~2020-01-31 | XMS | Encounter Summary ---
Demographics + + + | Address | [address] | | | [place] [address] | + + + | Home Phone [...] + | Author | [facility] | | | and [place] | + + + | Organization | [facility] | [...] [place] | | | | | [address] | | + + + + + Care Team Providers + +------+ + | Care Lubrication Supervisor Name | Role | Phone | [...] [place] | | | | | [address] | [address] | | | | | [phone] | [phone] | | | | | | | [...] EXTERNAL | | | | performed [facility], [address] | | LAB | | | | [facility] | | | | | | [place] [address] | | | | + + + + + + | HCV | [id number] (A)Comment: | IU/mL | EXTERNAL | | [...] | | | | | performed at [facility], [address] | | | | | | [place] | | | | | | [place] [address] | | | | + + + [...]
--- OUTSIDE RECORDS SUMMARY | ~2020-01-31 | XMS | Encounter Summary ---
Demographics + + + | Address | [address] | | | [place] [address] | + + + | Home Phone [...] + | Author | [facility] | | | and [place] | + + + | Organization | [facility] | [...] [place] | | | | | [address] | | + + + + + Care Team Providers + +------+ + | Care Wallcovering Texturer Name | Role | Phone | + [...] | | | [place] | [place] | | | | | [address] | [address] | | | | | [phone] | [phone] | | | | | | | [...] | | | | | | [facility] | | | | | [...] | | | | [facility] | | | | | | [place] [address] | | | | + + + [...]
--- OUTSIDE RECORDS SUMMARY | ~2020-01-31 | XMS | Encounter Summary ---
Demographics + + + | Address | [address] | | | [place] [address] | + + + | Home Phone [...] Author | [facility] | | | and [place] | + + + | Organization | [facility] | | [...] [place] | | | | | [address] | | + + + + + Care Team Providers + +------+ + | Care Environmental Communications Specialist Name | Role | Phone | [...] | | | | | PX ERCP NC | | | | | | [...] + + | 02/12/ | Hospital | [facility] | Dc Naik MD | Obstruction of | | 2018 | Encounter | MED CTR MP INTRA OP | [address], [place] | biliary stent, | | | | [address] | [address] [place], [place] | subsequent encounter | | | | [place], [place] | [address] | (Primary Dx) | | | | [address] | | | | | | [phone] | | | +--------+ + + + [...] You can't be awakened Date Last Reviewed: 06/24/[id number] [employer]. [address] [place] [address]. All righ ts reserved. This information is [...] 02/12/2018 | PROVATION | | 11:06 AMMRN: [id number] #: [id number] of : | | | 1960Admit Type: AmbulatoryAge: 57Room: [facility] 01Gender: MaleNote | | | Status: FinalizedAttending MD: Dc Naik [facility] | | | ERCPIndications: Biliary [...] | | | the anesthesiologist and the plant facilities technician in the endoscopy suite. | | [...] Scope In: 11:27:31 AMScope Out: 11:31:38 AM [facility] | | | [facility], [address] [place] [address] | | | [phone] | | | - Discharge patient to [...] |Scope Out: 11:31:38 AM | | | [facility], [address] [place] [address] | | | [address] | | + + -+ + +---------+ [...]
--- OUTSIDE RECORDS SUMMARY | ~2020-01-31 | XMS | Encounter Summary ---
Demographics + + + | Address | [address] | | | [place] [address] | + + + | Home Phone [...] | Author | [facility] | | | and [place] | + + + | Organization | [facility] | | | [...] [place] | | | | | [address] | | + + + + + Care Team Providers + +------+ + | Care Manager Audio Name | Role | Phone | + [...] + + | 01/04/ | Telephone | [facility] | Adrian Aponte MD | Medication Refill | | 2018 | | GASTROENTEROLOGY | [address] [facility] | Assistance | | | | [address] [facility] | [place], [place] | | | | | [address] [place], [place] | [address] | | | | | [address] | [phone] | | | | | [phone] | | | +--------+ + + + [...]
--- OUTSIDE RECORDS SUMMARY | ~2020-01-31 | XMS | Encounter Summary ---
Demographics + + + | Address | [address] | | | [place] [address] | + + + | Home Phone [...] | Author | [facility] | | | and [place] | + + + | Organization | [facility] | | | and [...] [place] | | | | | [address] | | + + + + + Care Team Providers + +------+ + | Care Hoisting Laborer Name | Role | Phone | [...] [place] | | | | | [address] | [address] | | | | | [phone] | | | | | | | [...] EXTERNAL | | | | performed at [facility] | | LAB | | | | Health;[address] | | | | | | [place] | | | | | | [address] | | | | + + + [...]
--- OUTSIDE RECORDS SUMMARY | ~2020-01-31 | XMS | Encounter Summary ---
Demographics + + + | Address | [address] | | | [place] [address] | + + + | Home Phone [...] | Author | [facility] | | | and [place] | + + + | Organization | [facility] | | | and [place] [...] [place] | | | | | [address] | | + + + + + Care Team Providers + +------+ + | Care External Auditor Name | Role | Phone | + [...] | | | | | | [place] | | | | | | | ESOPHAGOGAST | | | | | | | RODUODENOSCO | | | | | | | PY TRANSORAL | | | | | | | DIAGNOSTIC | | | | | | | [place] EGD | | | | | | | TRANSORAL | | | | | | | BIOPSY | | | | | | | SINGLE/MULTI | | | | | | | PLE [place] | | | | | | | [...] | 11/18/ | Surgery | [facility] | Adrian Aponte MD | EGD | | 2018 | | MED CTR MP INTRA OP | [address] | | | | | [address] | [place], [place] | | | | | [place], [place] | [address] | | | | | [address] | [phone] | | | | | [phone] | | | +--------+---------+ + + + [...] 11/18/2017 | [facility] | | 8:29 AMMRN: [id number] #: [id number] of : | | | 1960Admit Type: AmbulatoryAge: 56Room: [facility] 01Gender: MaleNote | | | Status: FinalizedAttending MD: Adrian Aponte MDProcedure: | | | Upper GI endoscopyIndications: Epigastric abdominal | | | pain, Nausea with vomitingProviders: Adrian Aponte MD, | | | Caroline Beltran RN, Edyta Kilpatrick | | | Cabrera, Dairy Technician, CARMELLA MELO, | | | DO (Anesthesia [...] | | | the anesthesiologist and the loom technician in the pre-procedure | | | [...] | | 8:39:59 AMScope Out: 8:48:59 AM [facility] | | | [place], [address] [place] [id number] | | | - Await pathology results. [...] |Scope Out: 8:48:59 AM | | | [facility], [address] [place] [address] | | | [address] | | + + -+ + +---------+ [...] for increased | | | epithelial eosinophils. [facility]:C2NR GROSS DESCRIPTION: | | | Received [...] submitted, all in (D1). | | | ka:[facility] PERFORMING LABORATORY: Tissue processing and slide | | | preparation were performed by [facility], [address] | | | [address], [place] [address] (Senior Research Engineer: Alex Hathaway M.D. | | | CLIA#: [id number]). Professional interpretation was performed by | | | [facility], [facility], [address] | [address] [place] [address] (Senior Research Engineer: Alex Hathaway, | | | Trevin; CLIA#: [id number]). Diagnostician: Alex Hathaway MD | | | [...]
--- OUTSIDE RECORDS SUMMARY | ~2020-01-31 | XMS | Encounter Summary ---
Demographics + + + | Address | [address] | | | [place] [address] | + + + | Home Phone [...] + | Author | [facility] | | | and [place] | + + + | Organization | [facility] | [...] [place] | | | | | [address] | | + + + + + Care Team Providers + +------+ + | Care Curtain Worker Name | Role | Phone | [...] + | 01/20/ | Telephone | [facility] | Adrian Aponte MD | Appointment | | 2018 | | GASTROENTEROLOGY | [address] | | | | | [address] [facility] | [place], [place] | | | | | [address] [place] | [address] | | | | | [address] | [phone] | | | | | [phone] | | | +--------+ + + + [...]
--- OUTSIDE RECORDS SUMMARY | ~2020-01-31 | XMS | Encounter Summary ---
Demographics + + + | Address | [address] | | | [place] [address] | + + + | Home Phone [...] Author | [facility] | | | and [place] | + + + | Organization | [facility] | | | and [...] [place] | | | | | [address] | | + + + + + Care Team Providers + +------+ + | Care Legal Technician Name | Role | Phone | [...] Cassia [place] | | | | | [place], [place] | [address] | | | | | [address] | [place] [address] | | | | | [phone] | [phone] | | | | | | | [...] + + | Hemoglobin | 5.6Comment: The Nauruan | 4.0 - 6.0 % | EXTERNAL [...]
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
--- OUTSIDE RECORDS SUMMARY | ~2020-01-31 | XMS | Encounter Summary ---
Demographics + + + | Address | [address] | | | [place] [address] | + + + | Home Phone [...] [facility] | | | and [place] | + + + | Organization | [facility] | | | and [place] [...] [place] | | | | | [address] | | + + + + + Care Team Providers + +------+ + | Care Cpht Name | Role | Phone | + [...] + + | 09/12/ | Telephone | [facility] | Anival Stevenson MD | Appointment Question | | 2020 | | GENERAL SURGERY [address] | [address] | | | | | [address] | [address] [place], [place] | | | | | [place], [place] | [address] | | | | | [address] | | | | | | [phone] | | | +--------+ + + + [...]
--- OUTSIDE RECORDS SUMMARY | ~2020-01-31 | XMS | Encounter Summary ---
Demographics + + + | Address | [address] | | | [place] [address] | + + + | Home Phone | | + + + | Preferred Language | Unknown | + + + | Marital Status | | + + + | Holiness Affiliation | 1013 | + + + | Race | Unknown | + + + | Ethnic Group | Unknown | + + + Author + + + | Author | [facility] | | | and [place] | + + + | Organization | [facility] | [...] [place] | | | | | [address] | | + + + + + Care Team Providers + +------+ + | Care Marketing Support Assistant Name | Role | Phone | [...] | 09/11/ | Telephone | [facility] | Dc Naik MD | Appointment | | 2015 | | GASTROENTEROLOGY | [address], [place] | | | | | [address] [place] | [address] [place], [place] | | | | | [address] [place], [place] | [address] | | | | | [address] | | | | | | [phone] | | | +--------+ + + + [...]
--- OUTSIDE RECORDS SUMMARY | ~2020-01-31 | XMS | Encounter Summary ---
Demographics + + + | Address | [address] | | | [place] [address] | + + + | Home Phone [...] [facility] | | | and [place] | + + + | Address | Unknown | + + + | Phone | Unavailable | + + + Support + + + + + | Name | Relationship | Address | Phone | + + + + + | Teodora Cespedes | ECON | [address] | | | | | [place] | | | | | [address] | | + + + + + Care Team Providers + +------+ + | Care First Aid Teacher Name | Role | Phone | [...] [place] | | | | | [address] | [address] | | | | | [phone] | [phone] | | | | | | | [...] EXTERNAL | | | | performed at [facility];[address] | | LAB | | | | [place] | | | | | | [address];[place] [address] | | | | + + + [...]
--- OUTSIDE RECORDS SUMMARY | ~2020-01-31 | XMS | Encounter Summary ---
Demographics + + + | Address | [address] | | | [place] [address] | + + + | Home Phone [...] + + + | Author | [facility] | + + + | Organization | [facility] | + + + | Address | Unknown | + + + | Phone | Unavailable | + + + Support + + +---------+ + | Name | Relationship | Address | Phone | + + +---------+ + | Maria Isabel Cespedes | ECON | Unknown | | + + +---------+ + Care Team Providers + +------+ + | Care Gymnastic Teacher Name | Role | Phone | + +------+ + | Allison Fairchild NP | PCP | | + +------+ + Encounter Details +--------+ + + + + | Date | Type | Department | Care Team | Description | +--------+ + + + + | 02/22/ | Procedure | Diagnostic Imaging | | | | 2019 | Pass | Services at [facility] | | | | | | [address] | | | | | | Vonda Khanna [facility] | | | | | | [address] | | | | | | [place], [place] | | | | | | [address] | | | | | | [phone] | | | +--------+ + + + [...]
--- OUTSIDE RECORDS SUMMARY | ~2020-01-31 | XMS | Encounter Summary ---
Demographics + + + | Address | [address] | | | [place] [address] | + + + | Home Phone [...] | Author | [facility] | | | and [place] | + + + | Organization | [facility] [...] [place] | | | | | [address] | | + + + + + Care Team Providers + +------+ + | Care Conservation Specialist Name | Role | Phone | [...] + + | 09/06/ | Anesthesia | [facility] | Mariel Mi CRNA | | | 2019 | [facility] | [address] | | | | | OPERATING ROOM [address] | [place] [address] | | | | | [address] | [phone] | | | | | [place], [place] | | | | | | [address] | Rom Stevenson, | | | | | [phone] | FIELD COLLECTOR [address] | | | | | | [place] [address] | | | | | | [phone] | | | | | | | [...] +----+---+ + + | | 0 | [place] | | | | 9 | 43-degrees [...] will talk to Dr. Stevenson to start FENCE SETTER for better pain | | | 0 [...] Patient room; | | | | | Cold Working Supervisor; Miriam Duran RN; | | | | [...] number | | | | | (specify) ([id number]); 4 Fr, | | | | | [...] | | Ventilation: EZ; Airway Grade: | FIELD COLLECTOR | | | | 2a; External Maneuvers: [...] | | | procedure documentation); Mask | FIELD COLLECTOR | | | | Ventilation: EZ; Airway [...] An | Sharron Guevara MD | April eLe MD | | nal | extensive conversation [...] Isabel Hamilton, the patient's | | | vision care associate and medical decision maker) Patient position: sitting [...] | | | breath sounds Performing provider: Rmo Stevenson CRNA Authorizing | | | provider: [...]
--- OUTSIDE RECORDS SUMMARY | ~2020-01-31 | XMS | Encounter Summary ---
Demographics + + + | Address | [address] | | | [place] [address] | + + + | Home Phone [...] | Author | [facility] | | | and [place] | + + + | Organization | [facility] | [...] [place] | | | | | [address] | | + + + + + Care Team Providers + +------+ + | Care Hospital Coordinator Name | Role | Phone | [...] | 01/21/ | Telephone | [facility] | Adrian Aponte MD | Vomiting | | 2018 | | GASTROENTEROLOGY | [address] [facility] | | | | | [address] [facility] | [place], [place] | | | | | [address] [place] [place] | [address] | | | | | [address] | [phone] | | | | | [phone] | | | +--------+ + + + [...]
--- OUTSIDE RECORDS SUMMARY | ~2020-01-31 | XMS | Encounter Summary ---
Demographics + + + | Address | [address] | | | [place] [address] | + + + | Home Phone [...] + | Author | [facility] | | | and [place] | + + + | Organization | [facility] | | | and [place] [...] [place] | | | | | [address] | | + + + + + Care Team Providers + +------+ + | Care Consulting Actuary Name | Role | Phone | + [...] [place] | | | | | | [address] | | | | | | [phone] | | | +--------+ + + + [...]
--- OUTSIDE RECORDS SUMMARY | ~2020-01-31 | XMS | Encounter Summary ---
Demographics + + + | Address | [address] | | | [place] [address] | + + + | Home Phone [...] Author | [facility] | | | and [place] | + + + | Organization | [facility] | [...] [place] | | | | | [address] | | + + + + + Care Team Providers + +------+ + | Care Tv News Director Name | Role | Phone | [...] + + | 09/21/ | Office | [facility] | Anival Stevenson MD | Chills (without | | 2020 | Visit | GENERAL SURGERY [address] | [address] | fever) (Primary Dx); | | | | [address] | [address] [place], [place] | Erythema; Surgical | | | | [place], [place] | [address] | follow-up care | | | | [address] | | | | | | [phone] | | | +--------+---------+ + + + [...] REFERENCE | | | | performed at [facility];[address] | | LAB | | | | [place] | | [facility] | | | | [address];[place] [address] | | LABORATORY | | + + + + + + + + | Specimen | + + | Blood | + + + + + + + | Performing | Address | City/State/Zipcode | Phone Number | | Organization | | | | + + + + + | REFERENCE LAB | [address] | [place] | [phone] | | [facility] | [address] | [address] | | | LABORATORY | | | | + + + + + | REFERENCE LAB | [address] | [place] | | | [facility] | Blvd[address] | [address] | | | LABORATORY | | | [...] - 1.030 | REFERENCE | | | Deport, | | | LAB | | | [...] + | REFERENCE LAB | [address] [facility] | [place] | [phone] | | [facility] | Bl[address] | [address] | | | LABORATORY | | | | + + + + + | REFERENCE LAB | [address] [place] [address] | [place] | | | [facility] | Blvd[address] | [address] | | | LABORATORY | | | [...]
--- OUTSIDE RECORDS SUMMARY | ~2020-01-31 | XMS | Encounter Summary ---
Demographics + + + | Address | [address] | | | [place] [address] | + + + | Home Phone [...] + | Author | [facility] | | | and [place] | + + + | Organization | [facility] [...] [address] | | | | | [facility] [place] | | | | | [address] | | + + + + + Care Team Providers + +------+ + | Care Advisor To Command In Combat Name | Role | Phone | + +------+ + PCP | Unavailable | + +------+ + Encounter Details +--------+ + + + + | Date | Type | Department | Care Team | Description | +--------+ + + + + | 08/20/ | [facility] | [facility] | Taniya Velásquez | | | 2012 | Encounter | MED CTR EMERGENCY | DO Paul Ovalles | | | | | CENTER [address] | [place] | | | | | [place] | [address] | | | | | [address] | | | | | | [phone] | | | +--------+ + + + [...] + | [facility] | [address] | [place], [place] | [phone] | | [facility] | | [address] | | | - LABORATORY | | | | + + + + + | [facility] | [address] | [place], [place] | | | [facility] | | [address] | | | - LABORATORY | [...] | | USUAL ORAL | | [facility] | | | | ANTICOAGULATION RANGE | [...] [address] | [place] | [phone] | | [facility] | | [address] | | | - LABORATORY | | | | + + + + + | [facility] | [address] | [place] | | | [facility] | | [address] | | | - LABORATORY | [...] + | [facility] | [address] | [place], [place] | [phone] | | [facility] | | [address] | | | - LABORATORY | | | | + + + + + | [facility] | [address] | [place], [place] | | | [facility] | | [address], [facility] | | | - LABORATORY [...] + | [facility] | [address] | [place] | [phone] | | [facility] | | [address] | | | - LABORATORY | | | | + + + + + | [facility] | [address] | [place] | | | [facility] | | [address] | | | - LABORATORY | [...] | | | | | | [facility] | | | | | | MEDICAL [...] 7 | 7 - 18 mg/dL | [facility] | | | | | [facility] | | | | | | MEDICAL | | | | | | CENTER - | | | | | | LABORATORY | | + + + + + + | Creatinine | 0.57 (L) | 0.60 - 1.30 | [facility] | | | | | mg/dL [...] + | [facility] | [address] | [place] | [phone] | | [facility] | | [address] | | | - LABORATORY | | | | + + + + + | [facility] | [address] | [place] | | | [facility] | | [address], [facility] | | | - LABORATORY [...] [address] | [place] | [phone] | | [facility] | | [address] | | | - LABORATORY | | | | + + + + + | [facility] | [address] | [place], [place] | | | [facility] | | [address] | | | - LABORATORY | | | | + + + + + documented in this encounter Visit Diagnoses Not on filedocumented in this encounter"
--- OUTSIDE RECORDS SUMMARY | ~2020-01-31 | XMS | Encounter Summary ---
Demographics + + + | Address | [address] | | | [place] [address] | + + + | Home Phone [...] + | Author | [facility] | | | and [place] | + + + | Organization | [facility] | | [...] [place] | | | | | [address] | | + + + + + Care Team Providers + +------+ + | Care Electronic Video Games Servicer Name | Role | Phone | [...] | [address] | [place], [place] | Dysphagia | | | | [address] [place], [place] | [address] | | | | | [address] | [phone] | | | | | [phone] | | | +--------+ + + + [...]
--- OUTSIDE RECORDS SUMMARY | ~2020-01-31 | XMS | Encounter Summary ---
Demographics + + + | Address | [address] | | | [place] [address] | + + + | Home Phone [...] | Author | [facility] | | | and Alexana | + + + | Organization | [facility] | | [...] [place] | | | | | [address] | | + + + + + Care Team Providers + +------+ + | Care Industrial Waste Inspector Name | Role | Phone | [...] [place] | | | | | [address] | [address] | | | | | [phone] | [phone] | | | | | | | [...] [place] | | | | | | [address] | | | | + + + + + + | Red Blood | 3.42 (L)Comment: Testing | 4.20 - 5.70 | EXTERNAL | | | Cells | performed at [facility] | M/uL | LAB | | | Counted | [address] | | | | | | [place] | | | | | | [address] | | | | + + + + + + | Hemoglobin | 9.6 (L)Comment: Testing | 13.2 - 17.0 | EXTERNAL | | | | performed at [facility] | g/dL | LAB | | | | [address] | | | | | | [place] | | | | | | [address] | | | | + + + + + + | Hematocrit, | 30.2 (L)Comment: Testing | 39.0 - 50.0 % | EXTERNAL | | | POC | performed at [facility] | | LAB | | | | [address] | | | | | | [place] | | | | | | [address] | | | | + + + + + + | MCV | 88.3Comment: Testing | 80.0 - 100.0 fl | EXTERNAL | | | | performed at [facility] | | LAB | | | | [address] | | | | | | [place] | | | | | | [address] | | | | + + + + + + | MCH | 28.0Comment: Testing | 27.0 - 34.0 pg | EXTERNAL | | | | performed at [facility] | | LAB | | | | [address] | | | | | | [place] | | | | | | [address] | | | | + + + + + + | MCHC | 31.6 (L)Comment: Testing | 32.0 - 35.5 | EXTERNAL | | | | performed at [facility] | g/dL | LAB | | | | Health;[address] | | | | | | [place] | | | | | | [address] | | | | + + + + + + | RDW-CV | 61.7 (H)Comment: Testing | 37 - 53 fl | EXTERNAL | | | | performed at [facility] | | LAB | | | | Health;[address] | | | | | | [place] | | | | | | [address] | | | | + + + + + + | Platelet | 415 (H)Comment: Testing | 150 - 400 K/uL | EXTERNAL | | | Count | performed at [facility] | | LAB | | | Plasma | [address] | | | | | | [place] | | | | | | [address] | | | | + + + + + + | MPV | 7.4Comment: Testing | fl | EXTERNAL | | | | performed at [facility] | | LAB | | | | [address] | | | | | | [place] | | | | | | [address] | | | | + + + + + + | Differentia | AUTOMATEDComment: | | EXTERNAL | | | l Type | Testing performed at | | LAB | | | | [facility];[address] | | | | | | [place] | | | | | | [address] | | | | + + + [...] EXTERNAL | | | | performed at [facility] | | LAB | | | | Health;[address] | | | | | | [place] | | | | | | [address] | | | | + + + + + + | Red Blood | 3.42 (L)Comment: Testing | 4.20 - 5.70 | EXTERNAL | | | Cells | performed at [facility] | M/uL | LAB | | | Counted | [address] | | | | | | [place] | | | | | | [address] | | | | + + + + + + | Hemoglobin | 9.6 (L)Comment: Testing | 13.2 - 17.0 | EXTERNAL | | | | performed at [facility] | g/dL | LAB | | | | Health;[address] | | | | | | [place] | | | | | | [address] | | | | + + + + + + | Hematocrit, | 30.2 (L)Comment: Testing | 39.0 - 50.0 % | EXTERNAL | | | POC | performed at [facility] | | LAB | | | | [address] | | | | | | [place] | | | | | | [address] | | | | + + + + + + | MCV | 88.3Comment: Testing | 80.0 - 100.0 fl | EXTERNAL | | | | performed at [facility] | | LAB | | | | Health;[address] | | | | | | [place] | | | | | | [address] | | | | + + + + + + | MCH | 28.0Comment: Testing | 27.0 - 34.0 pg | EXTERNAL | | | | performed at [facility] | | LAB | | | | Health;[address] | | | | | | [place] | | | | | | [address] | | | | + + + + + + | MCHC | 31.6 (L)Comment: Testing | 32.0 - 35.5 | EXTERNAL | | | | performed at [facility] | g/dL | LAB | | | | Health;[address] | | | | | | [place] | | | | | | [address] | | | | + + + + + + | RDW-CV | 61.7 (H)Comment: Testing | 37 - 53 fl | EXTERNAL | | | | performed at [facility] | | LAB | | | | Health;[address] | | | | | | [place] | | | | | | [address] | | | | + + + + + + | Platelet | 415 (H)Comment: Testing | 150 - 400 K/uL | EXTERNAL | | | Count | performed at [facility] | | LAB | | | Plasma | [address] | | | | | | [place] | | | | | | [address] | | | | + + + + + + | MPV | 7.4Comment: Testing | fl | EXTERNAL | | | | performed at [facility] | | LAB | | | | Health;[address] | | | | | | [place] | | | | | | [address] | | | | + + + + + + | Differentia | AUTOMATEDComment: | | EXTERNAL | | | l Type | Testing performed at | | LAB | | | | [facility];[address] | | | | | | [place] | | | | | | [address] | | | | + + + [...]
--- OUTSIDE RECORDS SUMMARY | ~2020-01-31 | XMS | Encounter Summary ---
Demographics + + + | Address | [address] | | | [place] [address] | + + + | Home Phone [...] | Author | [facility] | | | and [place]ana | + + + | Organization | [facility] | | [...] [place] | | | | | [address] | | + + + + + Care Team Providers + +------+ + | Care Car Storer Name | Role | Phone | + [...] [place] | | | | | [address] | [address] | | | | | [phone] | [phone] | | | | | | | [...] EXTERNAL LAB | | Testing performed at [facility] | | | Health;[address] [place] [address] CULTURE | | | NO GROWTH 6 DAYS | | | Testing performed at [facility], [address], | | | [place] [address] REPORT STATUS | | | 10/09/2013 FINAL [...]
--- OUTSIDE RECORDS SUMMARY | ~2020-01-31 | XMS | Encounter Summary ---
Demographics + + + | Address | [address] | | | [place] [address] | + + + | Home Phone [...] | Author | [facility] | | | and [place] | + + + | Organization | [facility] | | [...] [place] | | | | | [address] | | + + + + + Care Team Providers + +------+ + | Care Broker Name | Role | Phone | + +------+ + | Allison Fairchild NP | PCP | | + +------+ + Encounter Details +--------+ + + + + | Date | Type | Department | Care Team | Description | +--------+ + + + + | 10/08/ | Hospital | [facility] | Conversion | | | 2017 | Encounter | [facility] | Transaction, | | | | | [address] | Provider Unknown | | | | | [place], [place] | [phone] | | | | | [address] | | | | | | [phone] | Jamie Bentley MD | | | | | | [address] [facility] | | | | | | [address] [place], [place] | | | | | | [address] | | | | | | | [...]
--- OUTSIDE RECORDS SUMMARY | ~2020-01-31 | XMS | Encounter Summary ---
Demographics + + + | Address | [address] | | | [place] [address] | + + + | Home Phone [...] | Author | [facility] | | | and [place] | + + + | Organization | [facility] | | [...] [place] | | | | | [address] | | + + + + + Care Team Providers + +------+ + | Care Strap Buckler Name | Role | Phone | + [...] [place] | | | | | [address] | [address] | | | | | [phone] | [phone] | | | | | | | [...] EXTERNAL | | | | performed at [facility] | | LAB | | | | Health;[address] | | | | | | [place] | | | | | | [address] | | | | + + + [...]
--- OUTSIDE RECORDS SUMMARY | ~2020-01-31 | XMS | Encounter Summary ---
Demographics + + + | Address | [address] | | | [place] [address] | + + + | Home Phone [...] Author | [facility] | | | and [place] | + + + | Organization | [facility] | | [...] [place] | | | | | [address] | | + + + + + Care Team Providers + +------+ + | Care Weather Forcaster Name | Role | Phone | + +------+ + | Allison Fairchild NP | PCP | | + +------+ + Encounter Details +--------+ + + + + | Date | Type | Department | Care Team | Description | +--------+ + + + + | 09/09/ | Anesthesia | [facility] | April Lee, | | | 2019 | [facility] | MD Adriana DODSON | | | | | AN[address]HES[address] | [place] [address] | | | | | [address] | [phone] | | | | | [place], [place] | | | | | | [address] | | | | | | [phone] | | | +--------+ + + + [...]
--- OUTSIDE RECORDS SUMMARY | ~2020-01-31 | XMS | Encounter Summary ---
Demographics + + + | Address | [address] | | | [place] [address] | + + + | Home Phone [...] Author | [facility] | | | and [place] | + + + | Organization | [facility] [...] [place] | | | | | [address] | | + + + + + Care Team Providers + +------+ + | Care Bundle Clerk Name | Role | Phone | [...] 2018 | | GASTROENTEROLOGY | [address], [place] | | | | | [address] [place] | [address] [place], [place] | | | | | [address] [place], [place] | [address] | | | | | [address] | | | | | | [phone] | | | +--------+ + + + [...]
--- OUTSIDE RECORDS SUMMARY | ~2020-01-31 | XMS | Encounter Summary ---
Demographics + + + | Address | [address] | | | [place] [address] | + + + | Home Phone | | + + + | Preferred Language | Unknown | + + + | Marital Status | | + + + | Spiritism Affiliation | Unknown | + + + | Race | White | + + + | Ethnic Group | Not or | + + + Author + + + | Author | [facility] | + + + | Organization | [facility] | + + + | Address | Unknown | + + + | Phone | Unavailable | + + + Support + + +---------+ + | Name | Relationship | Address | Phone | + + +---------+ + | Maria Isabel Cespedes | ECON | Unknown | | + + +---------+ + Care Team Providers + +------+ + | Care Supervisor Wire Rope Fabrication Name | Role | Phone | + +------+ + | Allison Fairchild NP | PCP | | + +------+ + Encounter Details +--------+ + + + + | Date | Type | Department | Care Team | Description | +--------+ + + + + | 04/26/ | Documentati | [facility] | Jaspal Stevenson, | | | 2013 | on | Center at [facility] [address] | MD [address] | | | | | [address] | [place], [place] | | | | | Mailcode: [facility] | [address] | | | | | [facility] | [phone] | | | | | and [address], | | | | | | | | | | | | Floor [place], [place] | | | | | | [address] | | | | | | [phone] | | | +--------+ + + + [...]
--- OUTSIDE RECORDS SUMMARY | ~2020-01-31 | XMS | Encounter Summary ---
Demographics + + + | Address | [address] | | | [place] [address] | + + + | Home Phone [...] [facility] | | | and [place] | + + + | Organization | [facility] [...] [place] | | | | | [address] | | + + + + + Care Team Providers + +------+ + | Care Item Processor Name | Role | Phone | + +------+ + | Allison Fairchild NP | PCP | | + +------+ + Encounter Details +--------+ + + + + | Date | Type | Department | Care Team | Description | +--------+ + + + + | 04/26/ | Orders Only | 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
--- OUTSIDE RECORDS SUMMARY | ~2020-01-31 | XMS | Encounter Summary ---
Demographics + + + | Address | [address] | | | [place] [address] | + + + | Home Phone [...] Team Providers + +------+ + | Care Portable Grinding Machine Operator Name | Role | Phone [...] | | | | | Vonda [place], | | | | | | [place] [address] | | | +--------+--------+ + + + [...]
--- OUTSIDE RECORDS SUMMARY | ~2020-01-31 | XMS | Encounter Summary ---
Demographics + + + | Address | [address] | | | [place] [address] | + + + | Home Phone [...] | Author | [facility] | | | and [place] | + + + | Organization | [facility] | | [...] [place] | | | | | [address] | | + + + + + Care Team Providers + +------+ + | Care Railcar Brake Operator Name | Role | Phone | [...] | | | | | | [address] [place], [place] | | | | | | [address] | | | | | | [phone] | | | +--------+ + + + [...]
--- OUTSIDE RECORDS SUMMARY | ~2020-01-31 | XMS | Encounter Summary ---
Demographics + + + | Address | [address] | | | [place] [address] | + + + | Home Phone [...] + | Author | [facility] | | | and [place] | + + + | Organization | [facility] [...] [place] | | | | | [address] | | + + + + + Care Team Providers + +------+ + | Care Donkey Ride Operator Name | Role | Phone | [...] + | 10/26/ | Telephone | [facility] | Adrian Aponte MD | Other | | 2016 | | GASTROENTEROLOGY | [address] | | | | | [address] [facility] | [place], [place] | | | | | [address] [place] | [address] | | | | | [address] | [phone] | | | | | [phone] | | | +--------+ + + + [...]
--- OUTSIDE RECORDS SUMMARY | ~2020-01-31 | XMS | Encounter Summary ---
Demographics + + + | Address | [address] | | | [place] [address] | + + + | Home Phone | | + + + | Preferred Language | Unknown | + + + | Marital Status | | + + + | Jewish Affiliation | Unknown | + + + [...] Team Providers + +------+ + | Care Hand Folder Name | Role | Phone | + [...] JO Ordaz | | | | | [address] | | | | | Loop Physician's | [place], [place] | | | | | [place], [facility] Floor | [address] | | | | | [place], [place] | [phone] | | | | | [address] | | | | | | [phone] | | | +--------+ + + + [...]
--- OUTSIDE RECORDS SUMMARY | ~2020-01-31 | XMS | Encounter Summary ---
Demographics + + + | Address | [address] | | | [place] [address] | + + + | Home Phone [...] Author | [facility] | | | and [place] | + + + | Organization | [facility] | | [...] [place] | | | | | [address] | | + + + + + Care Team Providers + +------+ + | Care Pediatric Nephrologist Name | Role | Phone | + [...] + + | 08/10/ | Telephone | [facility] | Hellen Avilez | Other (pt status | | 2019 | | INFECTIOUS DISEASE | L, RN | check) | | | | [address] | | | | | | [place] | | | | | | [address] | | | | | | [phone] | | | +--------+ + + + [...]
--- OUTSIDE RECORDS SUMMARY | ~2020-01-31 | XMS | Encounter Summary ---
Demographics + + + | Address | [address] | | | [place] [address] | + + + | Home Phone [...] | Author | [facility] | | | and [place] | + + + | Organization | [facility] | [...] [place] | | | | | [address] | | + + + + + Care Team Providers + +------+ + | Care Bleach Boiler Puller Name | Role | Phone | [...] + + | 09/16/ | Telephone | [facility] | Adrian Aponte MD | Medication Refill | | 2019 | | GASTROENTEROLOGY | [address] [facility] | Assistance | | | | [address] [facility] | [place], [place] | | | | | [address] [place], [place] | [address] | | | | | [address] | [phone] | | | | | [phone] | | | +--------+ + + + [...]
--- OUTSIDE RECORDS SUMMARY | ~2020-01-31 | XMS | Encounter Summary ---
Demographics + + + | Address | [address] | | | [place] [address] | + + + | Home Phone [...] + + | Author | [facility] | | | and Alexana | + + + | Organization | [facility] [...] [place] | | | | | [address] | | + + + + + Care Team Providers + +------+ + | Care Toll Line Inspector Name | Role | Phone | [...] + + | 01/21/ | Hospital | [facility] | Brennen Bobo | Acute abdominal pain | | 2018 - | Encounter | [facility] | MD Ricci [address] | (Primary Dx); | | | | [address] [place] | [address] [place] | Dehydration, | | 01/23/ | | [place] [address] | [place] [address] | moderate; | | 2018 | | [phone] | Ninoska Walker MD | Transaminitis; | | | | | [address] | Intractable vomiting | | | | | [place] | with nausea, | | | | | [address] | unspecified vomiting | | | | [...] might be differ ent from the original. [place] HOSPITALIST DISCHARGE SUMMARY Pt. Name/Age/: Reza [...] Nurse Practitioner Contact information: [address] [facility] [address] [facility] [address] Adrian Aponte MD In 3 weeks. Specialty: Gastroenterology Contact information: [address] [facility] [address] [facility] [address] Laboratory. Contact information: recheck CMP in 1 week Condition: Patient being discharged with condition improved Diet: soft low fat Greater than 30 minutes were spent on discharge and coordination of post-hospital care. Electronically signed by: Stephy Patel MD, 01/23/2018 12:17 [facility] Portions of this chart may have been created with FiPath voice recognition software. Occasi onal wrong-word or sound-alike substitutions may have occurred due to the inherent costello itations of voice recognition software. Please read the chart carefully and recognize, using context, where these substitutions have occurred documented in this encounter Discharge Instructions AttachmentsThe following attachments cannot be sent through Care Everywhere.Shahriar zapata, Discharge Instructions (Uzbek)documented in this encounter Medications at Time of [...] All belongings gathered. went down to car. SPECIAL NEEDS NANNY and RN took pt and belongings out [...] Prior to Admission Sig: Patient taking differently ROLLED HAM LACER as: Pantoprazole 20 mg tab 1 tab by mouth every morning before breakfast Not taking. Patient st ates medication is ineffective. Ondansetron 4 mg disintegrating tab Take 1 tab by mouth every 6 hours as needed for nausea Taking up to every 4 hours for severe nausea Best possible ROLLED HAM LACER medication list after pharmacy review: PT REPORTED [...] performed and electronically signed by Teresa Portillo, Neighborhood Conservation Officer 6:53 Reviewed by Rody Franco, PharmD 01/23/2018 7:36 Isha Rachel MD - 01/22/2018 4:06 PM PDTFormatting of this note might be different from the origi nal. [facility] [place] HOSPITALIST BRIEF NOTE Patient: Reza Cespedes : 1960: Age: 57 y.o. MedRec: [id number] Admission date: 01/21/2018 Hospital day # : [...] arge tomorrow. Stephy Patel MD 01/22/2018 16:06 [facility] Portions of this chart may have been created with FiPath voice recognition software. Occasi onal wrong-word or [...] [address] | [place] | [phone] | | [facility] | | [address] | | | - LABORATORY | | [...] 11 | 7 - 18 mg/dL | [facility] | | | | | | [facility] | | | | | | MEDICAL | | | | | | CENTER - | | | | | | LABORATORY | | + + + + + + | Creatinine | 0.85 | 0.60 - 1.30 | [facility] | | | | | mg/dL | [facility] | | | | | | MEDICAL | | | | | | CENTER - | | | | | | LABORATORY | | + + + + + + | eGFR if not | >60Comment: GLOMERULAR | >=60 | [facility] | | | | FILTRATION | mL/min/1.73m2 | [facility] | | | [place] | RATE,ESTIMATED | | MEDICAL | | | | mL/min/1.15h4Eiui than | | CENTER - | | [...] [address] | [place] | [phone] | | [facility] | | [address] | | | - LABORATORY | | [...] 01/22/2018 | [facility] | | 2:09 PMMRN: [id number] #: [id number] of : | | | 1960Admit Type: InpatientAge: 57[facility]: [facility] 01Gender: MaleNote | | | Status: FinalizedAttending MD: Dc Naik , MDProcedure: | | | ERCPIndications: Abnormal abdominal CT, Bile duct stone on | | | Computed Tomogram Scan, Abnormal MRCP, | | | Abnormal abdominal ultrasoundProviders: Dc Naik, | | | , Perla Ponce RN, Aracelis Lewis RN, | | | Jluis Ruiz CMA, Edyta Rees, Sql Dba, | | | Tremaine Stevenson MD (Anesthesia [...] | | | the anesthesiologist and the isotope technician in the endoscopy suite. | | [...] | biliary stent was visible on the privacy attorney film. The esophagus was | | | [...] | | 2:23:41 PMScope Out: 2:40:01 PM [facility] | | | [place], [address] [place] [address] | | | - Advance diet as [...] |Scope Out: 2:40:01 PM | | | [facility], [address] [place] [address] | | | [address] | | + + -+ + +---------+ [...] 2018. PROTOCOL: | | | Coronal T2 privacy attorney, axial T2 privacy attorney, coronal 3D respiratory triggered, | | | [...] | dated January 22, 2018.PROTOCOL: Coronal T2 privacy attorney, axial T2 privacy attorney, coronal 3D respiratory | | triggered,coronal T2 [...] [address] | [place] | [phone] | | [facility] | | [address] | | | - LABORATORY | | [...] Performed at: 01 - [facility] [address] [facility], | REFERENCE LAB | | [place] [id number] Camera Operator: Rom Stinson MD, Phone: | [facility] | | [phone] | | + + + + + + + + | Performing | Address | City/State/Zipcode | Phone Number | | Organization | | | | + + + + + | REFERENCE LAB | [address] | [place], [place] | [phone] | | [facility] | [facility] | [address] | | + + + + + [...] [place] [address], | REFERENCE LAB | | [place], [place] [id number] Camera Operator: Arturo Barriga MD, Phone: | [facility] | | [phone] | | + + + + + + + + | Performing | Address | City/State/Zipcode | Phone Number | | Organization | | | | + + + + + | REFERENCE LAB | [address] | [place], [place] | [phone] | | [facility] | [address] | [address] | | + + + + + [...] | REFERENCE LAB | | [place] [id number] Camera Operator: Rom Stinson MD, Phone: | [facility] | | [phone] | | + + + + + + + + | Performing | Address | City/State/Zipcode | Phone Number | | Organization | | | | + + + + + | REFERENCE LAB | [address] | [place], [place] | [phone] | | [facility] | [facility] | [address] | | + + + + + [...] + | [facility] [facility] | [address] | [place] | [phone] | | [facility] | | [address] | | | - LABORATORY | | [...] + | [facility] | [address] | [place] | [phone] | | [facility] | | [address] | | | - LABORATORY | | [...] [address] | [place] | [phone] | | [facility] | | [address] | | | - LABORATORY | | [...] [address] | [place] | [phone] | | [facility] | | [address] | | | - LABORATORY | | [...] + | [facility] | [address] | [place] | [phone] | | [facility] | | [address] | | | - LABORATORY | | [...] [address] | [place] | [phone] | | [facility] | | [address] | | | - LABORATORY | | [...] test | | | | | | ([id number]). | | | | + + + + + + + + | Specimen | + + | Blood | + + + + + | Narrative | Performed At | + + + | Performed at: 01 - [facility] [address] [address] [place] [address], | REFERENCE LAB | | [place], [place] [id number] Camera Operator: Samuel [place] MD, Phone: | [facility] | | [phone] | | + + + + + + + + | Performing | Address | City/State/Zipcode | Phone Number | | Organization | | | | + + + + + | REFERENCE LAB | [address] | [place], [place] | [phone] | | [facility] | [address] | [address] | | + + + + + [...] + | [address] | [address] | [place] | [phone] | | [facility] | | [address] | | | - LABORATORY | | [...] ST. | [address] | [place], [place] | [phone] | | [facility] | | [address] | | | - LABORATORY | | [...] ST. | [address] | [place] | [phone] | | [facility] | | [address] | | | - LABORATORY | | [...] | 0.90 | 0.60 - 1.30 | [facility] | | | | | mg/dL | [facility] | | | | | | MEDICAL | | | | | | CENTER - | | | | | | LABORATORY | | + + + + + + | eGFR if not | >60Comment: GLOMERULAR | >=60 | [facility] | | | | FILTRATION | mL/min/1.73m2 | [facility] | | | [place] | RATE,ESTIMATED | | MEDICAL | | | | mL/min/1.78p2Axys than | | CENTER - | | [...] ST. | [address] | [place], [place] | [phone] | | [facility] | | [address] | | | - LABORATORY | | [...] + + | Performing | Address | City/State/[facility]code | Phone Number | | Organization | [...] - 1.030 | [facility] | | | [place], | | | [facility] | | [...] ST. | [address] | [place], [place] | [phone] | | [facility] | | [address] | | | - LABORATORY | | [...] | [employer] | | | [facility] | | | | | | MEDICAL [...] [address] | [place] | [phone] | | [facility] | | [address] | | | - LABORATORY | | [...] [address] | [place] | [phone] | | [facility] | | [address] | | | - LABORATORY | | [...] + | [facility] | [address] | [place] | [phone] | | [facility] | | [address] | | | - LABORATORY | | [...] + | [facility] | [address] | [place] | [phone] | | [facility] | | [address] | | | - LABORATORY | | [...] [place] | | | [facility] | | [address] | | | - BLOOD BANK | [...] + | [facility] | [address] | [place], [place] | [phone] | | [facility] | | [address] | | | - LABORATORY | | [...] mL/min/1.73m2 | [facility] | | | [place] | RATE,ESTIMATED | | MEDICAL | | | | mL/min/1.69y0Oddy than | | CENTER - | | [...] + | [facility] | [address] | [place] | [phone] | | [facility] | | [address] | | | - LABORATORY | | [...] | Basophils | | K/uL | [facility] | | | | [...] [address] | [place] | [phone] | | [facility] | | [address] | | | - LABORATORY | | [...] PDT | | | | | Starting [facility] 01/21/18 at 2223, For | | [...] | | | | | Intravenous, ONCE, [facility] 01/21/18 at | | PM PDT [...] PDT | | | | | ONCE, [facility] 01/21/18 at 2225, For 1 | [...] PDT | | | | | ONCE, [facility] 01/22/18 at 0015, For 1 | [...] AM PDT | | | | | [facility] 01/21/18 at 2200 | | | [...]
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
--- OUTSIDE RECORDS SUMMARY | ~2020-01-31 | XMS | Encounter Summary ---
Demographics + + + | Address | [address] | | | [place] [address] | + + + | Home Phone [...] | Author | [facility] | | | and [place] | + + + | Organization | [facility] | | | [...] [place] | | | | | [address] | | + + + + + Care Team Providers + +------+ + | Care Oral Surgery Technician Name | Role | Phone | + +------+ + PCP | Unavailable | + +------+ + Encounter Details +--------+ + + + + | Date | Type | Department | Care Team | Description | +--------+ + + + + | 03/24/ | Emergency | [facility] | Sarabjit Rausch MD | Abdominal pain | | 2013 | | MEDICAL CENTER | [address] | | | | | EMERGENCY CENTER | [place] [address] | | | | | [address] | [phone] | | | | | [place], [place] | | | | | | [address] | | | | | | [phone] | | | +--------+ + + + [...] 300 COMPARISON: | | | 02/03/14 FINDINGS: Tech Writer view shows numerous orthopedic fixation | | [...] | 100 mL IsoVue 300 COMPARISON:02/03/14 FINDINGS: Tech Writer view shows numerous orthopedic | | fixation screws right [id number] visualized portions of the heart and lung [...] EXTERNAL | | | | performed at [facility];888 | | LAB | | | | [address];[place] | | | | | | [address] | | | | + + + + + + | Red Blood | 4.49Comment: Testing | 4.20 - 5.70 | EXTERNAL | | | Cells | performed at [facility];888 | M/uL | LAB | | | Counted | [address];[place] | | | | | | [address] | | | | + + + + + + | Hemoglobin | 14.3Comment: Testing | 13.2 - 17.0 | EXTERNAL | | | | performed at [facility];888 | g/dL | LAB | | | | [address];[place] | | | | | | [address] | | | | + + + + + + | Hematocrit, | 41.7Comment: Testing | 39.0 - 50.0 % | EXTERNAL | | | POC | performed at [facility];888 | | LAB | | | | [address];[place] | | | | | | [address] | | | | + + + + + + | MCV | 92.9Comment: Testing | 80.0 - 100.0 fl | EXTERNAL | | | | performed at [facility];888 | | LAB | | | | [address];[place] | | | | | | [address] | | | | + + + + + + | MCH | 31.8Comment: Testing | 27.0 - 34.0 pg | EXTERNAL | | | | performed at [facility];888 | | LAB | | | | [address];[place] | | | | | | [address] | | | | + + + + + + | MCHC | 34.2Comment: Testing | 32.0 - 35.5 | EXTERNAL | | | | performed at [facility];888 | g/dL | LAB | | | | [address];[place] | | | | | | [address] | | | | + + + + + + | RDW-CV | 48.6Comment: Testing | 37 - 53 fl | EXTERNAL | | | | performed at [facility];888 | | LAB | | | | [address];[place] | | | | | | [address] | | | | + + + + + + | Platelet | 461 (H)Comment: Testing | 150 - 400 K/uL | EXTERNAL | | | Count | performed at [facility];888 | | LAB | | | Plasma | [address];[place] | | | | | | [address] | | | | + + + + + + | MPV | 7.7Comment: Testing | fl | EXTERNAL | | | | performed at [facility];888 | | LAB | | | | [address];[place] | | | | | | [address] | | | | + + + + + + | Differentia | AUTOMATEDComment: | | EXTERNAL | | | l Type | Testing performed at | | LAB | | | | [facility];[address];[place] [address] | | | | + + + + + + | % Segmented | 66.3Comment: Testing | % | EXTERNAL | | | | performed at [facility];888 | | LAB | | | Neutrophils | [address];[place] | | | | | | [address] | | | | + + + + + + | % | 26.9Comment: Testing | % | EXTERNAL | | | Lymphocytes | performed at [facility];888 | | LAB | | | | [address];[place] | | | | | | [address] | | | | + + + + + + | % Monocytes | 5.1Comment: Testing | % | EXTERNAL | | | | performed at [facility];888 | | LAB | | | | [address];[place] | | | | | | [address] | | | | + + + + + + | % | 0.7Comment: Testing | % | EXTERNAL | | | Eosinophils | performed at [facility];888 | | LAB | | | | [address];[place] | | | | | | [address] | | | | + + + + + + | % Basophils | 1.0Comment: Testing | % | EXTERNAL | | | | performed at [facility];888 | | LAB | | | | [address];[place] | | | | | | [address] | | | | + + + + + + | Absolute | 8.4 (H)Comment: Testing | 1.9 - 7.4 K/uL | EXTERNAL | | | Segmented | performed at [facility];888 | | LAB | | | Neutrophils | [address];[place] | | | | | | [address] | | | | + + + + + + | Absolute | 3.4Comment: Testing | 1.0 - 3.9 K/uL | EXTERNAL | | | Lymphocytes | performed at [facility];888 | | LAB | | | | [address];[place] | | | | | | [address] | | | | + + + + + + | Absolute | 0.6Comment: Testing | 0 - 0.8 K/uL | EXTERNAL | | | Monocytes | performed at [facility];888 | | LAB | | | | [address];[place] | | | | | | [address] | | | | + + + + + + | Absolute | 0.1Comment: Testing | 0 - 0.5 K/uL | EXTERNAL | | | Eosinophils | performed at [facility];888 | | LAB | | | | [address];[place] | | | | | | [address] | | | | + + + + + + | Absolute | 0.1Comment: Testing | 0 - 0.1 K/uL | EXTERNAL | | | Basophils | performed at [facility];888 | | LAB | | | | [address];[place] | | | | | | [address] | | | | + + + [...] EXTERNAL | | | | performed at [facility];888 | | LAB | | | | [address];[place], [place] | | | | | | [address] | | | | + + + [...] EXTERNAL | | | | performed at [facility];888 | mmol/L | LAB | | | | [address];[place] | | | | | | [address] | | | | + + + + + + | K | 3.9Comment: Testing | 3.5 - 4.9 | EXTERNAL | | | | performed at [facility];888 | mmol/L | LAB | | | | [address];[place] | | | | | | [address] | | | | + + + + + + | Cl | 107Comment: Testing | 99 - 109 mmol/L | EXTERNAL | | | | performed at [facility];888 | | LAB | | | | [address];[place] | | | | | | [address] | | | | + + + + + + | CO2 | 25Comment: Testing | 23 - 32 mmol/L | EXTERNAL | | | | performed at [facility];888 | | LAB | | | | [address];[place] | | | | | | [address] | | | | + + + + + + | Anion Gap | 12Comment: Testing | 5 - 20 mmol/L | EXTERNAL | | | | performed at [facility];888 | | LAB | | | | [address];[place] | | | | | | [address] | | | | + + + + + + | Glucose, | 111 (H)Comment: Testing | 65 - 99 mg/dL | EXTERNAL | | | Fasting | performed at [facility];888 | | LAB | | | | [address];[place] | | | | | | [address] | | | | + + + + + + | BUN | 19Comment: Testing | 8 - 25 mg/dL | EXTERNAL | | | | performed at [facility];888 | | LAB | | | | [address];[place] | | | | | | [address] | | | | + + + + + + | Creatinine | 0.93Comment: Testing | 0.70 - 1.30 | EXTERNAL | | | | performed at [facility];888 | mg/dL | LAB | | | | [address];[place] | | | | | | [address] | | | | + + + + + + | BUN/Creatin | 20Comment: Testing | | EXTERNAL | | | ine Ratio | performed at [facility];888 | | LAB | | | | [address];[place] | | | | | | [address] | | | | + + + + + + | Calcium | 8.8Comment: Testing | 8.5 - 10.2 | EXTERNAL | | | | performed at [facility];888 | mg/dL | LAB | | | | [address];[place] | | | | | | [address] | | | | + + + + + + | Protein, | 7.2Comment: Testing | 6.3 - 8.2 g/dL | EXTERNAL | | | Total | performed at [facility];888 | | LAB | | | | [address];[place] | | | | | | [address] | | | | + + + + + + | Albumin | 3.3 (L)Comment: Testing | 3.6 - 5.0 g/dL | EXTERNAL | | | | performed at [facility];888 | | LAB | | | | [address];[place] | | | | | | [address] | | | | + + + + + + | Globulin | 3.9Comment: Testing | 1.3 - 4.9 g/dL | EXTERNAL | | | | performed at [facility];888 | | LAB | | | | [address];[place] | | | | | | [address] | | | | + + + + + + | A/G Ratio | 0.8 (L)Comment: Testing | 1.0 - 2.4 | EXTERNAL | | | | performed at [facility];888 | | LAB | | | | [address];[place] | | | | | | [address] | | | | + + + + + + | Bilirubin | 0.4Comment: Testing | 0.1 - 1.5 mg/dL | EXTERNAL | | | Total | performed at [facility];888 | | LAB | | | | [address];[place] | | | | | | [address] | | | | + + + + + + | ALP, | 117 (H)Comment: Testing | 35 - 115 U/L | EXTERNAL | | | External | performed at [facility];888 | | LAB | | | | [address];[place] | | | | | | [address] | | | | + + + + + + | AST | 66 (H)Comment: Testing | 10 - 45 U/L | EXTERNAL | | | | performed at [facility];888 | | LAB | | | | [address];[place] | | | | | | [address] | | | | + + + + + + | ALT | 63Comment: Testing | 10 - 65 U/L | EXTERNAL | | | | performed at [facility];888 | | LAB | | | | [address];[place] | | | | | | [address] | | | | + + + [...] | | | | | | at [facility];[address] [place] [address] | | | | | | [facility];[place] [address] | | | | + + + [...]
--- OUTSIDE RECORDS SUMMARY | ~2020-01-31 | XMS | Encounter Summary ---
Demographics + + + | Address | [address] | | | [place] [address] | + + + | Home Phone [...] Author | [facility] | | | and [place] | + + + | Organization | [facility] | | [...] [place] | | | | | [address] | | + + + + + Care Team Providers + +------+ + | Care Senior Compensation Consultant Name | Role | Phone | [...] + | 10/08/ | Refill | [facility] | Adrian Aponte MD | Medication Refill; | | 2017 | | GASTROENTEROLOGY | [address] [facility] | Diagnostic Order | | | | [address] [facility] | [place], [place] | (CT) | | | | [address] [place], [place] | [address] | | | | | [address] | [phone] | | | | | [phone] | | | +--------+--------+ + + + [...]
--- OUTSIDE RECORDS SUMMARY | ~2020-01-31 | XMS | Encounter Summary ---
Demographics + + + | Address | [address] | | | [place] [address] | + + + | Home Phone [...] Author | [facility] | | | and [place] | + + + | Organization | [facility] | | | and [...] [place] | | | | | [address] | | + + + + + Care Team Providers + +------+ + | Care Card Scraper Name | Role | Phone | + +------+ + | Allison Fairchild NP | PCP | | + +------+ + Encounter Details +--------+ + + + + | Date | Type | Department | Care Team | Description | +--------+ + + + + | 03/31/ | Orders Only | [facility] | [place] | 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
--- OUTSIDE RECORDS SUMMARY | ~2020-01-31 | XMS | Encounter Summary ---
Demographics + + + | Address | [address] | | | [place] [address] | + + + | Home Phone | | + + + | Preferred Language | Unknown | + + + | Marital Status | | + + + | Restorationism Affiliation | 1013 | + + + | Race | Unknown | + + + | Ethnic Group | Unknown | + + + Author + + + | Author | [facility] | | | and [place] | + + + | Organization | [facility] | | | and [place] | + + + | Address | Unknown | + + + | Phone | Unavailable | + + + Support + + + + + | Name | Relationship | Address | Phone | + + + + + | Teodora Cespedes | ECON | [address] | | | | | [facility] [place] | | | | | [address] | | + + + + + Care Team Providers + +------+ + | Care Dumper Operator Name | Role | Phone | + +------+ + PCP | Unavailable | + +------+ + Encounter Details +--------+ + + + + | Date | Type | Department | Care Team | Description | +--------+ + + + + | 08/20/ | [facility] | [facility] | Taniya Velásquez | | | 2012 | Encounter | MED CTR EMERGENCY | DO Paul Ovalles | | | | | CENTER [address] | [place] | | | | | [place] | [address] | | | | | [address] | | | | | | [phone] | | | +--------+ + + + [...] + | [facility] | [address] | [place], [place] | [phone] | | [facility] | | [address] | | | - LABORATORY | | | | + + + + + | [facility] | [address] | [place], [place] | | | [facility] | | [address] | | | - LABORATORY [...] [address] | [place] | [phone] | | [facility] | | [address] | | | - LABORATORY | | | | + + + + + | [facility] | [address] | [place] | | | [facility] | | [id number] | | | - LABORATORY [...] + | [facility] | [address] | [place], [place] | [phone] | | [facility] | | [address] | | | - LABORATORY | | | | + + + + + | [facility] | [address] | [place], [place] | | | [facility] | | [address], [facility] | | | - LABORATORY | [...] + | [facility] | [address] | [place] | [phone] | | [facility] | | [address] | | | - LABORATORY | | | | + + + + + | [facility] | [address] | [place] | | | [facility] | | [address] | | | - LABORATORY [...] 7 | 7 - 18 mg/dL | [facility] | | | | | . [facility] | | | | | | MEDICAL | | | | | | CENTER - | | | | | | LABORATORY | | + + + + + + | Creatinine | 0.57 (L) | 0.60 - 1.30 | [facility] | | | | | mg/dL [...] + | [facility] | [address] | [place] | [phone] | | [facility] | | [address] | | | - LABORATORY | | | | + + + + + | [facility] | [address] | [place] | | | [facility] | | [address], [facility] | | | - LABORATORY | [...] [address] | [place] | [phone] | | [facility] | | [address] | | | - LABORATORY | | | | + + + + + | [facility]. | [address] | [place], [place] | | | [facility] | | [id number] | | | - LABORATORY | | | | + + + + + documented in this encounter Visit Diagnoses Not on filedocumented in this encounter"
--- OUTSIDE RECORDS SUMMARY | ~2020-01-31 | XMS | Encounter Summary ---
Demographics + + + | Address | [address] | | | [place] [address] | + + + | Home Phone | | + + + | Preferred Language | Unknown | + + + | Marital Status | | + + + | Faith Affiliation | Unknown | + + + [...] Team Providers + +------+ + | Care Knitting Supervisor Name | Role | Phone | + +------+ + | Allison Fairchild DIGITAL TECH | PCP | | + +------+ + [...] | [address] | Dorian Khanna [facility] | | | | | ([facility]) | [facility], | | | | | Procedures | Rd | 10th Floor | | | | | CTA ABDOMEN | [place], [place] | [place], [place] | | | | | [address] | [address] | [address] | | | | | IV CONTRAST | Phone: | Phone: | | | | | [place] | [phone] | [phone] | | | | | ANGIO, ABD | Fax: | Fax: | | | | | AND PELVS | [phone] | [phone] | | | | | INCL IMAG [...] 2018 | | [facility] | [address] | | | | | [address] | [address] | | | | | [address] [facility] | [place], [place] | | | | | [address], [address] Floor | [address] | | | | | [place], [place] | [phone] | | | | | [address] | | | | | | [phone] | | | +--------+ + + + [...] by | | | | | | [employer],[address] | | | | | | Manohar Lacey, [facility],[place] | | | | | | [address] | | | | | | [phone][employer]. | | | | | | Melecio [...] [facility] | [address] | [place], [place] | | | [facility] | | [address] | | + + + + + [...] | + + + + + | [facility] | [address] | [place] [address] | | | SERVICES, CORE | PARK [...] | | | LABORATORY | | | [place] | | | SERVICES, | | | [...] MDRD equation recommended by the National | [facility] | | Kidney Disease Education Program. Estimated GFR Interpretive | LABORATORY | | Information: <60 mL/min/1.73 sq m Chronic Kidney | SERVICES, [facility] | | Disease <15 mL/min/1.73 sq m [...] | + + + + + | [facility] | [address] | [place] [address] | | | [place] | DORIAN [...] | + + + + + | [facility] | [address] | [place] [address] | | | [place] | DORIAN [...] Note | + + | Service Account, [employer] Res In Interface - 03/12/2019 1:33 PM [...]
--- OUTSIDE RECORDS SUMMARY | ~2020-01-31 | XMS | Encounter Summary ---
Demographics + + + | Address | [address] | | | [place] [address] | + + + | Home Phone [...] Author | [facility] | | | and [place] | + + + | Organization | [facility] [...] [place] | | | | | [address] | | + + + + + Care Team Providers + +------+ + | Care Mobility Specialist Name | Role | Phone | + +------+ + PCP | Unavailable | + +------+ + Encounter Details +--------+ + + + + | Date | Type | Department | Care Team | Description | +--------+ + + + + | 12/18/ | Hospital | [facility] | Bertha Bentley MD | Incisional hernia | | 2015 - | Encounter | [facility] [address] | [address] | without mention of | | | | [address] | [address] [place], [place] | obstruction or | | 12/21/ | | [place], [place] | [address] | augie | | 2014 | | [address] | | | | | | [phone] | | | +--------+ + + + [...] 1343 Date of Service: 12/21/141340 Status: Addendum Senior Sustainability Consultant: Bertha Bentley MD (Physician) Related Notes: Original Note by Bertha Bentley MD (Physician) filed at 12/21/14 1342 [facility] Service: General Surgery Discharge Summary Date [...] - INCISIONAL; Surgeon: Bertha Bentley MD; Location: [facility] MAIN OR; Service: General; Laterality: N/A; Incisional hernia repair N/A 07/03/2014 Procedure: HERNIA REPAIR - INCISIONAL - COMPLEX; Surgeon: Bertha Bentley MD; Location: [facility] MAIN OR; Service: General; Laterality: N/A; open - recurrent Cosmetic surgery Multiple facial surgeries for 24 fractures. Hardware removal 06/2013 12 screws and plate in R [facility], [place] Incisional hernia repair N/A 12/18/2014 Procedure: HERNIA REPAIR - INCISIONAL - SIMPLE; Surgeon: Bertha Bentley MD; Location: [facility] MAIN OR; Service: General; Laterality: N/A; [...] file. Follow up: BECKIE Daniel [address] [place] [address] [place] [address] Medication List START taking these medications sulfamethoxazole-trimethoprim [...] are the prescriptions that you need to cook pickled meat. You may get the following medications from [...] 12/21/149 Date of Service: 12/21/141438 Status: Signed Senior Sustainability Consultant: Kerrie Nieves RN (Registered Nurse) Discharge patient to home Instructions given States understanding Prescription given Kerrie Nieves RN 12/21/2014 2:39 PM ertha Guillen MD - 2014 7:40 AM PDTFormatting of this note might be different from the leidy ginal. Progress Notes by Bertha Bentley MD at 12/20/14 0760 Author: Bertha Bentley MD Service: General Surgery Author Type: Physician Filed: 12/20/14 0741 Date of Service: 12/20/14739 Status: Signed Senior Sustainability Consultant: Bertha Bentley MD (Physician) [facility] Service: General Surgery Progress Note POD: [...] Shell Levin RN Service: (none) Author Type: Seafood Process Worker Filed: 12/19/14945 Date of Service: 12/19/14941 Status: Signed Senior Sustainability Consultant: Shell Levin RN (Seafood Process Worker) Met with Donna to discuss DC plans. They plan to return home in [place]. They h ave a w/c, walker, and cane at home. They deny OP medical services. 12/19/14922 Discharge Planning Evaluation Admitting Diagnosis Incisional hernia Readmission No Living Arrangements Spouse/significant other Support Systems Spouse/significant other;Christian/katty community;Family members Type of Residence Private residence [...] Plan Yes Name of Pharmacy [facility] Previous home health equipment No Vascular access device No Ostomy/Drains/Appliances No Anticipated Disposition Facility Type Home Medicare Important Message (KIKE) Not applicable Met with: Reza and his and discussed discharge planning, Pt is a 54 y.o., male Patient's PCP is: PACO ROBERSON Patient's insurance: [employer] Coverage concerns: none Medication coverage/concerns: [employer] [facility] [...] 12/19/14827 Date of Service: 12/19/14826 Status: Signed Senior Sustainability Consultant: Bertha Bentley MD (Physician) [facility] Service: General Surgery Progress Note POD: [...] 12/18/141429 Date of Service: 12/18/141429 Status: Signed Senior Sustainability Consultant: Sherri Gilmore RPH (Pharmacist) Renal Dosing Monitoring: [...] 12/18/141428 Date of Service: 12/18/141428 Status: Signed Senior Sustainability Consultant: Sherri Gilmore RPH (Pharmacist) Renal Dosing Monitoring: [...] a clear | | | synthetic mesh. Applied Technologist sections are submitted in cassette | | | (A1). FM MICROSCOPIC EXAMINATION: Histologic sections of all | | | submitted blocks are examined by light microscopy. These findings, | | | together with the gross examination, support the pathologic diagnosis. | | | PERFORMING LABORATORY: Professional interpretation and technical | | | preparation was performed by Vinny, [facility] | | | [address] [address] (Talent Development Manager: | | | Renaldo Lvoe M.D.; [facility]#: [id number]). Diagnostician: Renaldo Levy | | | Ivan [...] | | EXTERNAL | | | | [facility] [address] | | LAB | | | | [address];[place] [address] | | | | + + + + + + | Antibody | NEGATIVE | | EXTERNAL | | | Screen | | | LAB | | + + + + + + | Antibody | Testing performed at | | EXTERNAL | | | Screen | [facility] | | LAB | | | | [address];[place] [address] | | | | + + + + + + | BB BAND | [id number] | | EXTERNAL | | | | | | LAB | | + + + + + + | BB BAND | Testing performed at | | EXTERNAL | | | | [facility] | | LAB | | | | [address];[place] [address] | | | | + + + [...] EXTERNAL | | | | performed at [facility];[address] | K/uL | LAB | | | | [address];[place] | | | | | | [address] | | | | + + + + + + | Red Blood | 4.40Comment: Testing | 4.20 - 5.70 | EXTERNAL | | | Cells | performed at [facility];[address] | M/uL | LAB | | | Counted | [address];[place] | | | | | | [address] | | | | + + + + + + | Hemoglobin | 13.4Comment: Testing | 13.2 - 17.0 | EXTERNAL | | | | performed at [facility];[address] | g/dL | LAB | | | | [address];[place] | | | | | | [address] | | | | + + + + + + | Hematocrit, | 40.1Comment: Testing | 39.0 - 50.0 % | EXTERNAL | | | POC | performed at [facility];[address] | | LAB | | | | [address];[place] | | | | | | [address] | | | | + + + + + + | MCV | 91.0Comment: Testing | 80.0 - 100.0 fl | EXTERNAL | | | | performed at [facility];[address] | | LAB | | | | [address];[place] | | | | | | [address] | | | | + + + + + + | MCH | 30.5Comment: Testing | 27.0 - 34.0 pg | EXTERNAL | | | | performed at [facility];[address] | | LAB | | | | [address];[place] | | | | | | [address] | | | | + + + + + + | MCHC | 33.5Comment: Testing | 32.0 - 35.5 | EXTERNAL | | | | performed at [facility];[address] | g/dL | LAB | | | | [address];[place] | | | | | | [address] | | | | + + + + + + | RDW-CV | 48.1Comment: Testing | 37 - 53 fl | EXTERNAL | | | | performed at [facility];[address] | | LAB | | | | [address];[place] | | | | | | [address] | | | | + + + + + + | Platelet | 318Comment: Testing | 150 - 400 K/uL | EXTERNAL | | | Count | performed at [facility];[address] | | LAB | | | Plasma | [address];[place] | | | | | | [address] | | | | + + + + + + | MPV | 8.7Comment: Testing | fl | EXTERNAL | | | | performed at [facility];[address] | | LAB | | | | [address];[place] | | | | | | [address] | | | | + + + + + + | Differentia | AUTOMATEDComment: | | EXTERNAL | | | l Type | Testing performed at | | LAB | | | | [facility];[address] | | | | | | [address];[place] [address] | | | | + + + + + + | % Segmented | 57.40Comment: Testing | % | EXTERNAL | | | | performed at [facility];[address] | | LAB | | | Neutrophils | [address];[place] | | | | | | [address] | | | | + + + + + + | % | 29.91Comment: Testing | % | EXTERNAL | | | Lymphocytes | performed at [facility];[address] | | LAB | | | | [address];[place] | | | | | | [address] | | | | + + + + + + | % Monocytes | 8.18Comment: Testing | % | EXTERNAL | | | | performed at [facility];[address] | | LAB | | | | [address];[place] | | | | | | [address] | | | | + + + + + + | % | 3.18Comment: Testing | % | EXTERNAL | | | Eosinophils | performed at [facility];[address] | | LAB | | | | [address];[place] | | | | | | [address] | | | | + + + + + + | % Basophils | 1.33Comment: Testing | % | EXTERNAL | | | | performed at [facility];[address] | | LAB | | | | [address];[place] | | | | | | [address] | | | | + + + + + + | Absolute | 5.80Comment: Testing | 1.90 - 7.40 | EXTERNAL | | | Segmented | performed at [facility];[address] | K/uL | LAB | | | Neutrophils | [address];[place] | | | | | | [address] | | | | + + + + + + | Absolute | 3.02Comment: Testing | 1.00 - 3.90 | EXTERNAL | | | Lymphocytes | performed at [facility];[address] | K/uL | LAB | | | | [address];[place] | | | | | | [address] | | | | + + + + + + | Absolute | 0.83 (H)Comment: Testing | 0.00 - 0.80 | EXTERNAL | | | Monocytes | performed at [facility];[address] | K/uL | LAB | | | | [address];[place] | | | | | | [address] | | | | + + + + + + | Absolute | 0.32Comment: Testing | 0.00 - 0.50 | EXTERNAL | | | Eosinophils | performed at [facility];[address] | K/uL | LAB | | | | [address];[place] | | | | | | [address] | | | | + + + + + + | Absolute | 0.13 (H)Comment: Testing | 0.00 - 0.10 | EXTERNAL | | | Basophils | performed at [facility];[address] | K/uL | LAB | | | | [address];[place] | | | | | | [address] | | | | + + + [...] EXTERNAL | | | | performed at [facility];[address] | mmol/L | LAB | | | | [address];[place] | | | | | | [address] | | | | + + + + + + | K | 3.6Comment: Testing | 3.5 - 4.9 | EXTERNAL | | | | performed at [facility];[address] | mmol/L | LAB | | | | [address];[place] | | | | | | [address] | | | | + + + + + + | Cl | 105Comment: Testing | 99 - 109 mmol/L | EXTERNAL | | | | performed at [facility];[address] | | LAB | | | | [address];[place] | | | | | | [address] | | | | + + + + + + | CO2 | 25Comment: Testing | 23 - 32 mmol/L | EXTERNAL | | | | performed at [facility];[address] | | LAB | | | | [address];[place] | | | | | | [address] | | | | + + + + + + | Anion Gap | 12Comment: Testing | 5 - 20 mmol/L | EXTERNAL | | | | performed at [facility];[address] | | LAB | | | | [address];[place] | | | | | | [address] | | | | + + + + + + | Glucose, | 113 (H)Comment: Testing | 65 - 99 mg/dL | EXTERNAL | | | Fasting | performed at [facility];[address] | | LAB | | | | [address];[place] | | | | | | [address] | | | | + + + + + + | BUN | 19Comment: Testing | 8 - 25 mg/dL | EXTERNAL | | | | performed at [facility];[address] | | LAB | | | | [address];[place] | | | | | | [address] | | | | + + + + + + | Creatinine | 0.92Comment: Testing | 0.70 - 1.30 | EXTERNAL | | | | performed at [facility];[address] | mg/dL | LAB | | | | [address];[place] | | | | | | [address] | | | | + + + + + + | BUN/Creatin | 21Comment: Testing | | EXTERNAL | | | ine Ratio | performed at [facility];[address] | | LAB | | | | [address];[place] | | | | | | [address] | | | | + + + + + + | Calcium | 8.7Comment: Testing | 8.5 - 10.5 | EXTERNAL | | | | performed at [facility];[address] | mg/dL | LAB | | | | [address];[place] | | | | | | [address] | | | | + + + [...] | | | | | | at [facility];[address] | | | | | | [facility];[place] [address] | | | | + + + [...]
--- OUTSIDE RECORDS SUMMARY | ~2020-01-31 | XMS | Encounter Summary ---
Demographics + + + | Address | [address] | | | [place] [address] | + + + | Home Phone [...] | Author | [facility] | | | and [place] | + + + | Organization | [facility] | [...] [place] | | | | | [address] | | + + + + + Care Team Providers + +------+ + | Care Chief Customer Officer Name | Role | Phone | + +------+ + | Allison Fairchild NP | PCP | | + +------+ + Encounter Details +--------+ + + + + | Date | Type | Department | Care Team | Description | +--------+ + + + + | 02/21/ | Hospital | [facility] | 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 [place] (01/22/2018); CT ABDOMEN | | PELVIS W [...]
--- OUTSIDE RECORDS SUMMARY | ~2020-01-31 | XMS | Encounter Summary ---
Demographics + + + | Address | [address] | | | [place] [address] | + + + | Home Phone [...] | [facility] | | | and [place] | + + + | Organization | [facility] | [...] [place] | | | | | [address] | | + + + + + Care Team Providers + +------+ + | Care Photograph Developer Name | Role | Phone | [...] + + | 09/13/ | Telephone | [facility] | Anival Stevenson MD | Appointment | | 2020 | | GENERAL SURGERY [address] | [address] | | | | | [address] | [address] [place], [place] | | | | | [place], [place] | [address] | | | | | [address] | | | | | | [phone] | | | +--------+ + + + [...]
--- OUTSIDE RECORDS SUMMARY | ~2020-01-31 | XMS | Encounter Summary ---
Demographics + + + | Address | [address] | | | [place] [address] | + + + | Home Phone [...] Author | [facility] | | | and [place]ana | + + + | Organization | [facility] | | [...] [place] | | | | | [address] | | + + + + + Care Team Providers + +------+ + | Care Maintenance Technician 3Rd Shift Name | Role | Phone | + [...] + + | 01/22/ | Surgery | [facility] | Dc Naik MD | ERCP | | 2018 | | MED CTR MP INTRA OP | [address], [place] | | | | | [address] | [address] [place] | | | | | [place], [place] | [address] | | | | | [address] | | | | | | [phone] | | | +--------+---------+ + + + [...] might be differ ent from the original. [place], [place] HOSPITALIST DISCHARGE SUMMARY Pt. Name/Age/: Reza [...] information: [address] [place] [address] [facility] [address] Adrian Aponte MD In 3 weeks. Specialty: Gastroenterology Contact information: [address] [place] [address] [facility] [address] Laboratory. Contact information: recheck CMP in 1 week Condition: Patient being discharged with condition improved Diet: soft low fat Greater than 30 minutes were spent on discharge and coordination of post-hospital care. Electronically signed by: Stephy Patel MD, 01/23/2018 12:17 [facility] Portions of this chart may have been created with Saharey voice recognition software. Occasi onal wrong-word or sound-alike substitutions may have occurred due to the inherent costello itations of voice recognition software. Please read the chart carefully and recognize, using context, where these substitutions have occurred documented in this encounter Discharge Instructions AttachmentsThe following attachments cannot be sent through Care Everywhere.Biliary Cathete r, Discharge Instructions (Thai)documented in this encounter Medications at Time of [...] All belongings gathered. went down to car. ANTHROPOLOGY PROFESSOR and RN took pt and belongings out [...] Pharmacy list names: [facility] [place] [facility] [employer] insurance reported information X Outside [...] Prior to Admission Sig: Patient taking differently PROGRAM DIRECTOR as: Pantoprazole 20 mg tab 1 tab by mouth every morning before breakfast Not taking. Patient st ates medication is ineffective. Ondansetron 4 mg disintegrating tab Take 1 tab by mouth every 6 hours as needed for nausea Taking up to every 4 hours for severe nausea Best possible PROGRAM DIRECTOR medication list after pharmacy review: PT REPORTED [...] performed and electronically signed by Teresa Portillo, Hopper Filler 6:53 Reviewed by Rody Franco, PharmD 01/23/2018 7:36 Isha Rachel MD - 01/22/2018 4:06 PM PDTFormatting of this note might be different from the origi nal. [facility] [place] HOSPITALIST BRIEF NOTE Patient: Reza Cespedes : 1960: Age: 57 y.o. MedRec: [id number] Admission date: 01/21/2018 Hospital day # : [...] arge tomorrow. Stephy Patel MD 01/22/2018 16:06 Located within [facility] Portions of this chart may have been created with Saharey voice recognition software. Occasi onal wrong-word or [...] + | [facility] [facility] | [address] | [place] | [phone] | | [facility] | | [address] | | | - LABORATORY | | [...] | | FILTRATION | mL/min/1.73m2 | [facility] | | | [place] | RATE,ESTIMATED | | MEDICAL | | | | mL/min/1.90n9Frrw than | | CENTER - | | [...] | | | | mg/dL | [facility] | | | | | | [...] [address] | [place] | [phone] | | [facility] | | [address] | | | - LABORATORY | | [...] 01/22/2018 | PROVATION | | 2:09 PMMRN: [id number] #: [id number] of : | | | 1960Admit Type: InpatientAge: 57Room: [facility] 01Gender: MaleNote | | | Status: FinalizedAttending MD: Dc Naik , [facility]cedure: | | | ERCPIndications: Abnormal abdominal CT, Bile duct stone on | | | Computed Tomogram Scan, Abnormal MRCP, | | | Abnormal abdominal ultrasoundProviders: Dc Naik, | | | , Perla Ponce RN, Aracelis Lewis RN, | | | Jluis Ruiz CMA, Edyta Rees, Nursing Secretary, | | | Tremaine Stevenson MD (Anesthesia [...] | | | the anesthesiologist and the infrastructure technician in the endoscopy suite. | | [...] | biliary stent was visible on the latin dance instructor film. The esophagus was | | | [...] | | 2:23:41 PMScope Out: 2:40:01 PM [facility] | | | [place], [address] [place] [address] | | | - Advance diet as [...] |Scope Out: 2:40:01 PM | | | [facility], [address] [place] [address] | | | [address] | | + + -+ + +---------+ [...] 2018. PROTOCOL: | | | Coronal T2 latin dance instructor, axial T2 latin dance instructor, coronal 3D respiratory triggered, | | | [...] | dated January 22, 2018.PROTOCOL: Coronal T2 latin dance instructor, axial T2 latin dance instructor, coronal 3D respiratory | | triggered,coronal T2 [...] | + + + + + | [address] | [address] | [place] | [phone] | | [facility] | | [address] | | | - LABORATORY | | [...] + + | Performed at: 01 - [facility] [address] [facility], | REFERENCE LAB | | [place], [place] [id number] Associate Engineer: Rom Stinson MD, Phone: | [facility] | | [phone] | | + + + + + + + + | Performing | Address | City/State/Zipcode | Phone Number | | Organization | | | | + + + + + | REFERENCE LAB | [address] | [place], [place] | [phone] | | [facility] | [facility] | [address] | | + + + + + [...] [address], | REFERENCE LAB | | [place], [place] [id number] Associate Engineer: Arturo Barriga MD, Phone: | [facility] | | [phone] | | + + + + + + + + | Performing | Address | City/State/Zipcode | Phone Number | | Organization | | | | + + + + + | REFERENCE LAB | [address] | [place], [place] | [phone] | | [facility] | [address] | [address] | | + + + + + [...] [address], | REFERENCE LAB | | [place] [id number] Associate Engineer: Rom Stinson MD, Phone: | [facility] | | [phone] | | + + + + + + + + | Performing | Address | City/State/Zipcode | Phone Number | | Organization | | | | + + + + + | REFERENCE LAB | [address] | [place], [place] | [phone] | | [facility] | [address] [facility] | [address] | | + + + + + [...] [address] | [place] | [phone] | | [facility] | | [address] | | | - LABORATORY | | [...] + | [facility] | [address] | [place] | [phone] | | [facility] | | [address] | | | - LABORATORY | | [...] [address] | [place] | [phone] | | [facility] | | [address] | | | - LABORATORY | | [...] [address] | [place] | [phone] | | [facility] | | [address] | | | - LABORATORY | | [...] [address] | [place] | [phone] | | [facility] | | [address] | | | - LABORATORY | | [...] ST. | [address] | [place], [place] | [phone] | | [facility] | | [address] | | | - LABORATORY | | [...] test | | | | | | (601010). | | | | + + + + + + + + | Specimen | + + | Blood | + + + + + | Narrative | Performed At | + + + | Performed at: 01 - [address] [address], | REFERENCE LAB | | [place], [place] [id number] Associate Engineer: Samuel Wallace MD, Phone: | [facility] | | [phone] | | + + + + + + + + | Performing | Address | City/State/Zipcode | Phone Number | | Organization | | | | + + + + + | REFERENCE LAB | [address] | [place], [place] | [phone] | | [facility] | [address] | [address] | | + + + + + [...] [address] | [place] | [phone] | | [facility] | | [address] | | | - LABORATORY | | [...] + | [facility] | [address] | [place] | [phone] | | [facility] | | [address] | | | - LABORATORY | | [...] [address] | [place] | [phone] | | [facility] | | [address] | | | - LABORATORY | | [...] mL/min/1.73m2 | [facility] | | | [place] | RATE,ESTIMATED | | MEDICAL | | | | mL/min/1.46p8Kmoc than | | CENTER - | | [...] [address] | [place] | [phone] | | [facility] | | [address] | | | - LABORATORY | | [...] preliminary report was provided by MD Enzo, [facility], 01/21/2018 | | | 10:53:54 PM Dictated [...] - 1.030 | [facility] | | | [place], | | | [facility] | | [...] [address] | [place] | [phone] | | [facility] | | [address] | | | - LABORATORY | | [...] [address] | [place] | [phone] | | [facility] | | [address] | | | - LABORATORY | | [...] ST. | [address] | [place], [place] | [phone] | | [facility] | | [address] | | | - LABORATORY | | [...] [address] | [place] | [phone] | | [facility] | | [address] | | | - LABORATORY | | [...] + | [facility] | [address] | [place], [place] | [phone] | | [facility] | | [address] | | | - LABORATORY | | [...] | | [facility] | | [address] | | | - BLOOD BANK | [...] | | | | | | [facility] | | | | | | MEDICAL [...] [address] | [place] | [phone] | | [facility] | | [address] | | | - LABORATORY | | [...] (H) | 70 - 109 mg/dL | [facility] | | | | | | [facility] | | | | | | MEDICAL | | | | | | CENTER - | | | | | | LABORATORY | | + + + + + + | BUN | 18 | 7 - 18 mg/dL | [facility] | | | | | | [facility] | | | | | | MEDICAL | | | | | | CENTER - | | | | | | LABORATORY | | + + + + + + | Creatinine | 1.23 | 0.60 - 1.30 | [facility] | | | | | mg/dL | [facility] | | | | | | MEDICAL | | | | | | CENTER - | | | | | | LABORATORY | | + + + + + + | eGFR if not | 60Comment: GLOMERULAR | >=60 | [facility] | | | | FILTRATION | mL/min/1.73m2 | [facility] | | | [place] | RATE,ESTIMATED | | MEDICAL | | | | mL/min/1.77m5Jcbu than | | CENTER - | | [...] + | [facility] | [address] | [place] | [phone] | | [facility] | | [address] | | | - LABORATORY | | [...] | | Eosinophils | | K/uL | [facility] | | | | | | MEDICAL | | | | | | CENTER - | | | | | | LABORATORY | | + + + + + + | Absolute | 0.10 | 0.00 - 0.10 | [facility] | | | Basophils | | K/uL | [facility] | | | | | | [...] [address] | [place] | [phone] | | [facility] | | [address] | | | - LABORATORY | | [...]
--- OUTSIDE RECORDS SUMMARY | ~2020-01-31 | XMS | Encounter Summary ---
Demographics + + + | Address | [address] | | | [place] [address] | + + + | Home Phone [...] | Author | [facility] | | | and [place] | + + + | Organization | [facility] [...] [place] | | | | | [address] | | + + + + + Care Team Providers + +------+ + | Care Healthcare Representative Name | Role | Phone | [...] | | | [address] [address] | [place] | | | | | [address] | [address] | | | | | [phone] | [phone] | | | | | | | [...] EXTERNAL | | | | performed at [facility];[address] | | LAB | | | | [place] | | | | | | [place] [address] | | | | + + + [...]
--- OUTSIDE RECORDS SUMMARY | ~2020-01-31 | XMS | Encounter Summary ---
Demographics + + + | Address | [address] | | | [place] [address] | + + + | Home Phone [...] + | Author | [facility] | | | and [place] | + + + | Organization | [facility] | [...] [place] | | | | | [address] | | + + + + + Care Team Providers + +------+ + | Care Electric Motor Analyst Name | Role | Phone | [...] + + | 08/11/ | Telephone | [facility] | Jamie Bentley MD | Referral | | 2019 | | GENERAL SURGERY [address] | [address] | | | | | [address] | [address] [place], [place] | | | | | [place], [place] | [address] | | | | | [address] | | | | | | [phone] | | | +--------+ + + + [...]
--- OUTSIDE RECORDS SUMMARY | ~2020-01-31 | XMS | Encounter Summary ---
Demographics + + + | Address | [address] | | | [place] [address] | + + + | Home Phone | | + + + | Preferred Language | Unknown | + + + | Marital Status | | + + + | Mandaeism Affiliation | 1013 | + + + | Race | Unknown | + + + | Ethnic Group | Unknown | + + + Author + + + | Author | [facility] | | | and [place] | + + + | Organization | [facility] | [...] [place] | | | | | [address] | | + + + + + Care Team Providers + +------+ + | Care Metal Fabricator Name | Role | Phone | + [...] [place] | | | | | [address] | [address] | | | | | [phone] | [phone] | | | | | | | [...] | | | | | [place] [address] | | | | + + + [...]
--- OUTSIDE RECORDS SUMMARY | ~2020-01-31 | XMS | Encounter Summary ---
Demographics + + + | Address | [address] | | | [place] [address] | + + + | Home Phone | | + + + | Preferred Language | Unknown | + + + | Marital Status | | + + + | Tenriism Affiliation | Unknown | + + + [...] Team Providers + +------+ + | Care Third Rigger Name | Role | Phone | + [...] | | | | | [place]onda [place], | | | | | | [place] [address] | | | +--------+--------+ + + + [...]
--- OUTSIDE RECORDS SUMMARY | ~2020-01-31 | XMS | Encounter Summary ---
Demographics + + + | Address | [address] | | | [place] [address] | + + + | Home Phone [...] + | Author | [facility] | | | and [place] | + + + | Organization | [facility] | | [...] [place] | | | | | [address] | | + + + + + Care Team Providers + +------+ + | Care Freight Associate Name | Role | Phone | [...] [place] | | | | | [address] | [address] | | | | | [phone] | [phone] | | | | | | | [...] EXTERNAL | | | | performed at [facility] | | LAB | | | | Health;[address] | | | | | | [place] | | | | | | [address] | | | | + + + [...]
--- OUTSIDE RECORDS SUMMARY | ~2020-01-31 | XMS | Encounter Summary ---
Demographics + + + | Address | [address] | | | [place] [address] | + + + | Home Phone [...] | [facility] | | | and [place] | + + + | Organization | [facility] [...] [place] | | | | | [address] | | + + + + + Care Team Providers + +------+ + | Care Penciller Name | Role | Phone | + [...] | | | dysphagia | | [place] [address] | | | | | Other | | Phone: | | | | | dysphagia | | [phone] | | | | | [R13.19]Unsp | | Fax: | | | | | ecified | | [phone] | | | | | abdominal | [...] | | | | | [address] | [address] | | | | | [place] | [place] [address] | | | | | [address] | [phone] | | | | | [phone] | | | +--------+ + + + [...] + + | Periph | 10/23/15; 733; [id number] | 10/23/15733 by | 10/23/15909 by | [...]
--- OUTSIDE RECORDS SUMMARY | ~2020-01-31 | XMS | Encounter Summary ---
Demographics + + + | Address | [address] | | | [place] [address] | + + + | Home Phone [...] + | Author | [facility] | | | and [place] | + + + | Organization | [facility] [...] [place] | | | | | [address] | | + + + + + Care Team Providers + +------+ + | Care Air Quality Specialist Name | Role | Phone | + +------+ + | Allison Fairchild NP | PCP | | + +------+ + Encounter Details +--------+ + + + + | Date | Type | Department | Care Team | Description | +--------+ + + + + | 05/31/ | Telephone | [facility] | Rich [place] MD | | | 2019 | | CENTER INTRA OP | [address] | | | | | [address] | [address] [place], [place] | | | | | [place], [place] | [address] | | | | | [address] | [phone] | | | | | [phone] | | | +--------+ + + + [...]
--- OUTSIDE RECORDS SUMMARY | ~2020-01-31 | XMS | Encounter Summary ---
Demographics + + + | Address | [address] | | | [place] [address] | + + + | Home Phone | | + + + | Preferred Language | Unknown | + + + | Marital Status | | + + + | Shinto Affiliation | Unknown | + + + | Race | White | + + + | Ethnic Group | Not or | + + + Author + + + | Author | [facility] | + + + | Organization | [facility] | + + + | Address | Unknown | + + + | Phone | Unavailable | + + + Support + + +---------+ + | Name | Relationship | Address | Phone | + + +---------+ + | Maria Isabel Cespedes | ECON | Unknown | | + + +---------+ + Care Team Providers + +------+ + | Care Act Tutor Name | Role | Phone | + +------+ + | Allison Fairchild CHIEF QUALITY OFFICER | PCP | | + +------+ + [...] | | | | | spondylosis | CHIEF QUALITY OFFICER Good | [address] | | | | | with | L[place] | [address] | | | | | radiculopath | [facility] | Jey [place], | | | | | y, lumbar | [address] | [place] | | | | | region | [address] | [address] | | | | | Acute kidney | [facility], | Phone: | | | | | failure, | [place] [address] | [phone] | | | | | unspecified | Phone: | Fax: | | | | | Other | [phone] | [phone] | | | | | disorder of | Fax: | | | | | | circulatory | [phone] | | | | | | system [...] | | | | | | | [place] NEW | | | | | | | PATIENT | | | | | | | LEVEL II [place] | | | | | | | [...] | Visit | Physicians Tate Rehman MD [address] | stenosis (HCC) | | | | [address] | [address] | (Primary Dx); ESR | | | | Loop Physician's | [place], [place] | raised; 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, 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 | | | | [place], [place] | [phone] | (HCC) | | | | [address] | | | | | | [phone] | | | +--------+---------+ + + + [...] inflammation) on 2018 study per review with [facility] radiology - iliac artery dissection present on 01/2018 study per review with [facility] radiology- stable - proximal SMA may also be slightly abnormal on 11/2018 per review with [facility] radiology, leena mmend follow-up ultrasound, done 12/2018 limited but without obvious SMA changes - 02/2019: repeat CTA abd/pelvis but poor quality outside study with significant motion shannan fact, could not comment on renal aa or SMA. Chronic iliac dissection stable. Proximal aorta somewhat thickened. Overall suspicion for vasculitis low given variable vessel involvement, prolonged time period, dissections. Repeating CTA abd/pelvis at [facility] .S: Here with [place] Having pain [...] 1,000 mg by mouth four times daily. ti-djc-rfuau acid-lutein (CENTRUM SILVER) 400-250 mcg oral tablet,chewable [...] review findings with radiology early next w [place] Plan- - follow-up RPR - encouraged patient [...] the attestation. Chiquis Norman MD RHEUMATOLOGY AT [address] Mailcode: Op09 [place] [address] Associated attestation - Dejah Aguilera MD - 03/14/2019 1:52 PM PDTI have seen and ev aluated this patient with Dr. Norman. I agree with the documented findings, assessment, an d plan as detailed above. Dejah gAuilera MD RHEUMATOLOGY AT [address] Mailcode: Pv35 [place] [address] documented in this encounter Plan [...]
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
--- OUTSIDE RECORDS SUMMARY | ~2020-01-31 | XMS | Encounter Summary ---
Demographics + + + | Address | [address] | | | [place] [address] | + + + | Home Phone [...] Author | [facility] | | | and Alexana | + + + | Organization | [facility] | | [...] [place] | | | | | [address] | | + + + + + Care Team Providers + +------+ + | Care Lining Presser Name | Role | Phone | [...] [place] | | | | | [facility] [place] | [address] | | | | | [address] | | | | | | [phone] | | | +--------+ + + + [...] 8.45 RAP: 5 mmHg | | | Helicopter Specialist: Authenticated by: Ana Berger Report Date/Time: | [...] cmLVPWd: 0.89 | | cmLVOT Area: 3.74 [id number] Diam: 2.18 cm%FS: 37.07 %EF(Teich): 66.67 %ESV(Teich): [...] mlLAESV Index (A-L): 29.42 ml/m2LAAs A2C: 20.20 [id number] A-L A2C: 67.49 | | mlLALs A2C: 5.13 cmLAAs A4C: 18.84 [id number] A-L A4C: 54.93 mlLALs A4C: 5.48 | | cmRAAs: 16.81 [id number] A-L: 48.33 mlRAESV MOD: 46.23 mlRALs: 4.96 cmTAPSE: | | 2.69 cmAV maxP.02 mmHgAV meanP.05 mmHgAV Vmax: 1.32 m/Lacy Vmean: 0.81 | | m/Lacy VTI: 23.45 cmAVA Vmax: 3.31 cm2AVA (VTI): 3.75 ns7XFMH Vmax: 0.00 | | cm2/m2AVAI (VTI): 0.00 cm2/m2LVOT maxP.51 mmHgLVOT meanP.59 mmHgLVSI Dopp: | | 41.16 ml/m2LVSV Dopp: 88.08 mlLVOT Vmax: 1.17 m/sLVOT Vmean: 0.75 m/sLVOT VTI: | | 23.52 cmMV A Tano: 0.72 m/sMV DecT: 191.68 msMV E Tano: 0.91 m/sMV E/A Ratio: | | 1.26MV PHT: 55.58 msMVA By PHT: 3.95 dj8Hxmczk e': 0.07 m/sSeptal E/e': | | 13.00Lateral e': 0.10 m/sLateral E/e': 8.45RAP: 5 mmHg Helicopter Specialist:Authenticated | | by: Ana ValenciaReport Date/Time: 01-27-2018 [...] | |RAP: 5 mmHg | | | |Helicopter Specialist: | |Authenticated by: Ana Berger | |Report [...]
--- OUTSIDE RECORDS SUMMARY | ~2020-01-31 | XMS | Encounter Summary ---
Demographics + + + | Address | [address] | | | [place] [address] | + + + | Home Phone [...] Author | [facility] | | | and Alexana | + + + | Organization | [facility] | [...] [place] | | | | | [address] | | + + + + + Care Team Providers + +------+ + | Care Install Technician Name | Role | Phone | + +------+ + | Allison Fairchild NP | PCP | | + +------+ + Encounter Details +--------+ + + + + | Date | Type | Department | Care Team | Description | +--------+ + + + + | 11/10/ | [facility] | [facility] | Jamie Bentley MD | Recurrent 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 He states his pain is at a tolerable level. He and his plan to stay at a [facility], close to the hospital since they live in [place] and do not want to travel th at far from the hospital. Pt able to void. Pt vitals WNL. Instructed pt on s/s of infectio n, DVT and PE. nAgie Shaw RN 11/10/2016 3:06 PM onver day Transaction, Provider Unknown - 11/10/2016 1:42 PM PST Nurse Progress Note by Ev Mendoza RN at 11/10/16 1342 Author: Ev Mendoza RN Service: (none) Author Type: Registered Nurse Filed: 11/10/16 1345 Date of Service: 11/10/16 1342 Status: Signed Supply Chain Systems Manager: Ev Mendoza RN (Registered Nurse) Pt unable [...] Date of Service: 11/10/16 1039 Status: Signed Supply Chain Systems Manager: Elvi Reddy RN (Registered Nurse) Maria Isabel [...]
--- OUTSIDE RECORDS SUMMARY | ~2020-01-31 | XMS | Encounter Summary ---
Demographics + + + | Address | [address] | | | [place] [address] | + + + | Home Phone [...] | Author | [facility] | | | and [place]ana | + + + | Organization | [facility] [...] [place] | | | | | [address] | | + + + + + Care Team Providers + +------+ + | Care Jockey Agent Name | Role | Phone | [...] [place] | | | | | | [address] | | | | | | [phone] | | | +--------+ + + + [...]
--- OUTSIDE RECORDS SUMMARY | ~2020-01-31 | XMS | Encounter Summary ---
Demographics + + + | Address | [address] | | | [place] [address] | + + + | Home Phone [...] Author | [facility] | | | and [place]ana | + + + | Organization | [facility] [...] [address] | | | | | [facility] [place] | | | | | [address] | | + + + + + Care Team Providers + +------+ + | Care Enterprise Application Administrator Name | Role | Phone | + +------+ + PCP | Unavailable | + +------+ + Encounter Details +--------+ + + + + | Date | Type | Department | Care Team | Description | +--------+ + + + + | 06/29/ | Hospital | [facility] | Conversion | | | 2013 | Encounter | CENTER [facility] | Transaction, | | | | | CLINIC [address] | Provider Unknown | | | | | [place], [place] | | | | | | [address] | (Fax) | | | | | [phone] | | | +--------+ + + + [...] | | | | | [place] [address] | | | | + + + + + + | Red Blood | 4.52Comment: Testing | 4.20 - 5.70 | EXTERNAL | | | Cells | performed at [facility], [address] | M/uL | LAB | | | Counted | [address], | | | | | | [place] [address] | | | | + + + + + + | Hemoglobin | 13.9Comment: Testing | 13.2 - 17.0 | EXTERNAL | | | | performed at [facility], [address] | g/dL | LAB | | | | [address], | | | | | | [place] [address] | | | | + + + + + + | Hematocrit, | 41.5Comment: Testing | 39.0 - 50.0 % | EXTERNAL | | | POC | performed at [facility], [address] | | LAB | | | | [address], | | | | | | [place] [address] | | | | + + + + + + | MCV | 91.9Comment: Testing | 80.0 - 100.0 fl | EXTERNAL | | | | performed at [facility], [address] | | LAB | | | | [address], | | | | | | [place] [address] | | | | + + + + + + | MCH | 30.7Comment: Testing | 27.0 - 34.0 pg | EXTERNAL | | | | performed at [facility], [address] | | LAB | | | | [address], | | | | | | [place] [address] | | | | + + + + + + | MCHC | 33.4Comment: Testing | 32.0 - 35.5 | EXTERNAL | | | | performed at [facility], [address] | g/dL | LAB | | | | [address], | | | | | | [place] [address] | | | | + + + + + + | RDW-CV | 47.3Comment: Testing | 37 - 53 fl | EXTERNAL | | | | performed at [facility], [address] | | LAB | | | | [address], | | | | | | [place] [address] | | | | + + + + + + | Platelet | 290Comment: Testing | 150 - 400 K/uL | EXTERNAL | | | Count | performed at [facility], [address] | | LAB | | | Plasma | [address], | | | | | | [place] [address] | | | | + + + + + + | MPV | 8.8Comment: Testing | fl | EXTERNAL | | | | performed at [facility], [address] | | LAB | | | | [address], | | | | | | [place] [address] | | | | + + + + + + | Differentia | AUTOMATEDComment: | | EXTERNAL | | | l Type | Testing performed at | | LAB | | | | [facility], [address] | | | | | | [place] | | | | | | [address] | | | | + + + + + + | % Segmented | 57.5Comment: Testing | % | EXTERNAL | | | | performed at [facility], [address] | | LAB | | | Neutrophils | [address], | | | | | | [place] [address] | | | | + + + + + + | % | 30.3Comment: Testing | % | EXTERNAL | | | Lymphocytes | performed at [facility], [address] | | LAB | | | | [place], | | | | | | [place] [address] | | | | + + + + + + | % Monocytes | 9.0Comment: Testing | % | EXTERNAL | | | | performed at [facility], [address] | | LAB | | | | [address], | | | | | | [place] [address] | | | | + + + + + + | % | 2.1Comment: Testing | % | EXTERNAL | | | Eosinophils | performed at [facility], [address] | | LAB | | | | [address], | | | | | | [place] [address] | | | | + + + + + + | % Basophils | 1.1Comment: Testing | % | EXTERNAL | | | | performed at [facility], [address] | | LAB | | | | [address], | | | | | | [place] [address] | | | | + + + + + + | Absolute | 5.5Comment: Testing | 1.9 - 7.4 K/uL | EXTERNAL | | | Segmented | performed at [facility], [address] | | LAB | | | Neutrophils | [address], | | | | | | [place] [address] | | | | + + + + + + | Absolute | 2.9Comment: Testing | 1.0 - 3.9 K/uL | EXTERNAL | | | Lymphocytes | performed at [facility], [address] | | LAB | | | | [place], | | | | | | [place] [address] | | | | + + + + + + | Absolute | 0.9 (H)Comment: Testing | 0 - 0.8 K/uL | EXTERNAL | | | Monocytes | performed at [facility], [address] | | LAB | | | | [address], | | | | | | [place] [address] | | | | + + + + + + | Absolute | 0.2Comment: Testing | 0 - 0.5 K/uL | EXTERNAL | | | Eosinophils | performed at [facility], [address] | | LAB | | | [address], | | | | | | [place] [address] | | | | + + + + + + | Absolute | 0.1Comment: Testing | 0 - 0.1 K/uL | EXTERNAL | | | Basophils | performed at [facility], [address] | | LAB | | | | [place], | | | | | | [place] [address] | | | | + + + [...] | | | | | [place] [address] | | | | + + + + + + | K | 4.4Comment: Testing | 3.5 - 4.9 | EXTERNAL | | | | performed at [facility], [address] | mmol/L | LAB | | | | [address], | | | | | | [place] [address] | | | | + + + + + + | Cl | 104Comment: Testing | 99 - 109 mmol/L | EXTERNAL | | | | performed at [facility], [address] | | LAB | | | | [address], | | | | | | [place] [address] | | | | + + + + + + | CO2 | 27Comment: Testing | 23 - 32 mmol/L | EXTERNAL | | | | performed at [facility], [address] | | LAB | | | | [address], | | | | | | [place] [address] | | | | + + + + + + | Anion Gap | 8Comment: Testing | 5 - 20 mmol/L | EXTERNAL | | | | performed at [facility], [address] | | LAB | | | | [address], | | | | | | [place] [address] | | | | + + + + + + | Glucose, | 111 (H)Comment: Testing | 65 - 99 mg/dL | EXTERNAL | | | Fasting | performed at [facility], [address] | | LAB | | | | [address], | | | | | | [place] [address] | | | | + + + + + + | BUN | 13Comment: Testing | 8 - 25 mg/dL | EXTERNAL | | | | performed at [facility], [address] | | LAB | | | | [address], | | | | | | [place] [address] | | | | + + + + + + | Creatinine | 0.92Comment: Testing | 0.70 - 1.30 | EXTERNAL | | | | performed at [facility], [address] | mg/dL | LAB | | | | [address], | | | | | | [place] [address] | | | | + + + + + + | BUN/Creatin | 14Comment: Testing | | EXTERNAL | | | ine Ratio | performed at [facility], [address] | | LAB | | | | [address], | | | | | | [place] [address] | | | | + + + + + + | Calcium | 9.4Comment: Testing | 8.5 - 10.2 | EXTERNAL | | | | performed at [facility], [address] | mg/dL | LAB | | | | [facility], | | | | | | [place] [address] | | | | + + + [...] W | | | | | | [address], | | | | | | [place] [address] | | | | + + + [...]
--- OUTSIDE RECORDS SUMMARY | ~2020-01-31 | XMS | Encounter Summary ---
Demographics + + + | Address | [address] | | | [place] [address] | + + + | Home Phone [...] + | Author | [facility] | | | and [place]ana | + + + | Organization | [facility] | | | and [...] [place] | | | | | [address] | | + + + + + Care Team Providers + +------+ + | Care Commercial Loan Administrator Name | Role | Phone | [...] [place] | | | | | [address] | [address] | | | | | [phone] | [phone] | | | | | | | [...] EXTERNAL | | | | performed at [facility] | | LAB | | | | Health;[address] | | | | | | [place] | | | | | | [address] | | | | + + + [...]
--- OUTSIDE RECORDS SUMMARY | ~2020-01-31 | XMS | Encounter Summary ---
Demographics + + + | Address | [address] | | | [place] [address] | + + + | Home Phone [...] | Author | [facility] | | | and [place]ana | + + + | Organization | [facility] | [...] [place] | | | | | [address] | | + + + + + Care Team Providers + +------+ + | Care Cna Caregiver Name | Role | Phone | [...] [place] | | | | | [address] | [address] | | | | | [phone] | [phone] | | | | | | | [...] | | | | | | at [facility];[address] | | | | | | [facility];[place], [place] | | | | | | [address] | | | | + + + [...]
--- OUTSIDE RECORDS SUMMARY | ~2020-01-31 | XMS | Encounter Summary ---
Demographics + + + | Address | [address] | | | [place] [address] | + + + | Home Phone [...] + | Author | [facility] | | | and [place] | + + + | Organization | [facility] | [...] [place] | | | | | [address] | | + + + + + Care Team Providers + +------+ + | Care Title Search Manager Name | Role | Phone | [...] [place] | | | | | [address] | [address] | | | | | [phone] | [phone] | | | | | | | [...] | | | | [place], [place] [address] | | | | + + + + + + | FIBROSURE | SEE BELOWComment: F2, | | EXTERNAL | | | STAGE | BRIDGING FIBROSIS, FEW | | LAB | | | | SEPTATesting performed | | | | | | at [facility] [place], [address] | | | | | | [place], [place], | | | | | | [place] [address] | | | | + + + + + + | Necroinflam | 0.19 (H)Comment: Testing | 0.00 - 0.17 | EXTERNAL | | | mat | performed at [facility] | | LAB | | | Activity | [place] | | | | | Score | [employer], [place] [address] | | | | + + + + + + | Necroinflam | A0 TO [id number]: Testing | | EXTERNAL | | | mat | performed at [facility] | | LAB | | | Activity | [place] | | | | | Grade | [employer] [place], [place] [address] | | | | + + + + + + | Alpha | 452 (H)Comment: Testing | 110 - 276 mg/dL | EXTERNAL | | | 2-Macroglob | performed by [facility], | | LAB | | | [place], [place] | [address], | | | | | | [facility] [address] | | | | + + + + + + | Haptoglobin | 431 (H)Comment: Testing | 34 - 200 mg/dL | EXTERNAL | | | | performed by [facility], | | LAB | | | | [address] [facility], | | | | | | [facility] [address] | | | | + + + + + + | Apolipoprot | 111Comment: Testing | 110 - 180 mg/dL | EXTERNAL | | | ein A-1 | performed by [facility], | | LAB | | | | [address] [facility], | | | | | | [facility] [address] | | | | + + + + + + | Bilirubin, | 0.3Comment: Testing | 0.0 - 1.2 mg/dL | EXTERNAL | | | Total | performed by [facility], | | LAB | | | | [address] [facility], | | | | | | [facility] [address] | | | | + + + + + + | Gamma | 46Comment: Testing | 0 - 65 IU/L | EXTERNAL | | | Glutamyl | performed by [facility], | | LAB | | | Transferase | [address], | | | | | | [facility] [address] | | | | + + + + + + | ALT (SGPT) | 30Comment: Testing | 0 - 55 IU/L | EXTERNAL | | | P5P | performed by [facility], | | LAB | | | | [address], | | | | | | [facility] [address] | | | | + + + [...] | | | | [place] [address] | | | | + + + [...] | | | | | | [place] [address] | | | | + + + [...] | | | | [place] [address] | | | | + + + + + + + + | Specimen | + + | | + + + +---------+ + + | Performing | Address | City[facility] Phone Number | | Organization | | | | + +---------+ + + | EXTERNAL LAB | | | | + +---------+ + + documented in this encounter Visit Diagnoses Not on filedocumented in this encounter"
--- OUTSIDE RECORDS SUMMARY | ~2020-01-31 | XMS | Encounter Summary ---
Demographics + + + | Address | [address] | | | [place] [address] | + + + | Home Phone [...] Author | [facility] | | | and [place] | + + + | Organization | [facility] | [...] 8TH | | | | | [facility] [place] | | | | | [address] | | + + + + + Care Team Providers + +------+ + | Care Title Camera Operator Name | Role | Phone | + +------+ + PCP | Unavailable | + +------+ + Encounter Details +--------+ + + + + | Date | Type | Department | Care Team | Description | +--------+ + + + + | 12/07/ | Hospital | [facility] | Conversion | | | 2014 | Encounter | CENTER P[facility] | Transaction, | | | | | CLINIC [address] | Provider Unknown | | | | | [place], [place] | | | | | | [address] | (Fax) | | | | | [phone] | | | +--------+ + + + [...] LAB | | | | Blvd;[place] [address] | | | | + + + + + + | Antibody | NEGATIVE | | EXTERNAL | | | Screen | | | LAB | | + + + + + + | Antibody | Testing performed at | | EXTERNAL | | | Screen | [facility] | | LAB | | | | Blvd;[place] [address] | | | | + + + [...] | | | | [facility], [address] [facility] | | | | | | [place] | | | | | | [address] | | | | + + + + + + | Red Blood | 4.92Comment: Testing | 4.20 - 5.70 | EXTERNAL | | | Cells | performed at [facility], [address] | M/uL | LAB | | | Counted | [place], | | | | | | [place] [address] | | | | + + + + + + | Hemoglobin | 15.0Comment: Testing | 13.2 - 17.0 | EXTERNAL | | | | performed at [facility], [address] | g/dL | LAB | | | | [address], | | | | | | [place] [address] | | | | + + + + + + | Hematocrit, | 44.7Comment: Testing | 39.0 - 50.0 % | EXTERNAL | | | POC | performed at [facility], [address] | | LAB | | | | [address], | | | | | | [place] [address] | | | | + + + + + + | MCV | 90.9Comment: Testing | 80.0 - 100.0 fl | EXTERNAL | | | | performed at [facility], [address] | | LAB | | | | [address], | | | | | | [place] [address] | | | | + + + + + + | MCH | 30.4Comment: Testing | 27.0 - 34.0 pg | EXTERNAL | | | | performed at [facility], [address] | | LAB | | | | [address], | | | | | | [place] [address] | | | | + + + + + + | MCHC | 33.5Comment: Testing | 32.0 - 35.5 | EXTERNAL | | | | performed at [facility], [address] | g/dL | LAB | | | | [address], | | | | | | [place] [address] | | | | + + + + + + | RDW-CV | 47.7Comment: Testing | 37 - 53 fl | EXTERNAL | | | | performed at [facility], [address] | | LAB | | | | [address], | | | | | | [place] [address] | | | | + + + + + + | Platelet | 334Comment: Testing | 150 - 400 K/uL | EXTERNAL | | | Count | performed at [facility], [address] | | LAB | | | Plasma | [address], | | | | | | [place] [address] | | | | + + + + + + | MPV | 8.9Comment: Testing | fl | EXTERNAL | | | | performed at [facility], [address] | | LAB | | | | [address], | | | | | | [place] [address] | | | | + + + + + + | Differentia | AUTOMATEDComment: | | EXTERNAL | | | l Type | Testing performed at | | LAB | | | | [facility], [address] [facility] | | | | | | [place] | | | | | | [address] | | | | + + + + + + | % Segmented | 74.30Comment: Testing | % | EXTERNAL | | | | performed at [facility], [address] | | LAB | | | Neutrophils | [address] [place], | | | | | | [place] [address] | | | | + + + + + + | % | 19.68Comment: Testing | % | EXTERNAL | | | Lymphocytes | performed at [facility], [address] | | LAB | | | | [address], | | | | | | [place] [address] | | | | + + + + + + | % Monocytes | 4.24Comment: Testing | % | EXTERNAL | | | | performed at [facility], [address] | | LAB | | | | [address], | | | | | | [place] [address] | | | | + + + + + + | % | 0.95Comment: Testing | % | EXTERNAL | | | Eosinophils | performed at [facility], [address] | | LAB | | | | [address], | | | | | | [place] [address] | | | | + + + + + + | % Basophils | 0.83Comment: Testing | % | EXTERNAL | | | | performed at [facility], [address] | | LAB | | | | [address], | | | | | | [place] [address] | | | | + + + + + + | Absolute | 8.58 (H)Comment: Testing | 1.90 - 7.40 | EXTERNAL | | | Segmented | performed at [facility], [address] | K/uL | LAB | | | Neutrophils | [address], | | | | | | [place] [address] | | | | + + + + + + | Absolute | 2.27Comment: Testing | 1.00 - 3.90 | EXTERNAL | | | Lymphocytes | performed at [facility], [address] | K/uL | LAB | | | | [address], | | | | | | [place] [address] | | | | + + + + + + | Absolute | 0.49Comment: Testing | 0.00 - 0.80 | EXTERNAL | | | Monocytes | performed at [facility], [address] | K/uL | LAB | | | | [address], | | | | | | [place] [address] | | | | + + + + + + | Absolute | 0.11Comment: Testing | 0.00 - 0.50 | EXTERNAL | | | Eosinophils | performed at [facility], [address] | K/uL | LAB | | | | [address], | | | | | | [place] [address] | | | | + + + + + + | Absolute | 0.10Comment: Testing | 0.00 - 0.10 | EXTERNAL | | | Basophils | performed at [facility], [address] | K/uL | LAB | | | | [place], | | | | | | [place] [address] | | | | + + + [...] | | | | | [place] [address] | | | | + + + + + + | K | 4.5Comment: Testing | 3.5 - 4.9 | EXTERNAL | | | | performed at [facility], [address] | mmol/L | LAB | | | | [place], | | | | | | [place] [address] | | | | + + + + + + | Cl | 104Comment: Testing | 99 - 109 mmol/L | EXTERNAL | | | | performed at [facility], [address] | | LAB | | | | [address], | | | | | | [place] [address] | | | | + + + + + + | CO2 | 29Comment: Testing | 23 - 32 mmol/L | EXTERNAL | | | | performed at [facility], [address] | | LAB | | | | [address], | | | | | | [place] [address] | | | | + + + + + + | Anion Gap | 7Comment: Testing | 5 - 20 mmol/L | EXTERNAL | | | | performed at [facility], [address] | | LAB | | | | [address], | | | | | | [place] [address] | | | | + + + + + + | Glucose, | 110 (H)Comment: Testing | 65 - 99 mg/dL | EXTERNAL | | | Fasting | performed at [facility], [address] | | LAB | | | | [address], | | | | | | [place], [place] [address] | | | | + + + + + + | BUN | 16Comment: Testing | 8 - 25 mg/dL | EXTERNAL | | | | performed at [facility], [address] | | LAB | | | | [address], | | | | | | [place], [place] [address] | | | | + + + + + + | Creatinine | 0.86Comment: Testing | 0.70 - 1.30 | EXTERNAL | | | | performed at [facility], [address] | mg/dL | LAB | | | | [address], | | | | | | [place] [address] | | | | + + + + + + | BUN/Creatin | 19Comment: Testing | | EXTERNAL | | | ine Ratio | performed at [facility], [address] | | LAB | | | | [address], | | | | | | [place] [address] | | | | + + + + + + | Calcium | 9.4Comment: Testing | 8.5 - 10.5 | EXTERNAL | | | | performed at [facility], [address] | mg/dL | LAB | | | | [facility], | | | | | | [place] [address] | | | | + + + [...] | | | | | at [facility], [address] | | | | | | [place], | | | | | | [place] [address] | | | | + + + [...]
--- OUTSIDE RECORDS SUMMARY | ~2020-01-31 | XMS | Encounter Summary ---
Demographics + + + | Address | [address] | | | [place] [address] | + + + | Home Phone [...] | [facility] | | | and [place]ana | + + + | Organization | [facility] [...] [place] | | | | | [address] | | + + + + + Care Team Providers + +------+ + | Care Pelt Inspector Name | Role | Phone | [...] [place] | | | | | [address] | [address] | | | | | [phone] | [phone] | | | | | | | [...] | | | Serum | performed at [facility], [address] | mOsm/kg | LAB | | | | [address] [place], [place] | | | | | | [address] | | | | + + + [...]
--- OUTSIDE RECORDS SUMMARY | ~2020-01-31 | XMS | Encounter Summary ---
Demographics + + + | Address | [address] | | | [place] [address] | + + + | Home Phone [...] | [facility] | | | and [place] | + + + | Organization | [facility] | [...] [place] | | | | | [address] | | + + + + + Care Team Providers + +------+ + | Care Automation Qa Lead Name | Role | Phone | [...] + + | 09/23/ | Telephone | [facility] | Anival Stevenson MD | Post-op Question | | 2020 | | GENERAL SURGERY [address] | [address] | | | | | [address] | [address] [place], [place] | | | | | [place], [place] | [address] | | | | | [address] | | | | | | [phone] | | | +--------+ + + + [...]
--- OUTSIDE RECORDS SUMMARY | ~2020-01-31 | XMS | Encounter Summary ---
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 1960 Admit date: 09/06/2019 Discharge [...] bruising may occur. It appears as a xugxe-ouv-kvsq area around the incision and indic ates [...] suspect a problem. Our office number is [phone] documented in this encounter Medications at Time [...] Groups: infusion therapy, home Community Agency Name: [facility] Other Resources: Discharge Transportation Transportation Needs: family or friend will provide Notes: Pt from home and was on IV ABX with [facility] home infusion. I called [facility] and Pt has c ompleted IV ABX, if Pt will need a continuation of IV ABX new prescriptions and orders will need to be written. Pt will discharge home once medically ready. CM will follow for any need s that arise. Electronically signed: Mo Ortiz RN 09/09/2019 3:19 PM Arpil Elizondo MD - 09/09/2019 1:08 PM PSTForma [...] s Caregiver: (P) spouse/significant other, homecare agency (specify)([facility] for h ome IVAB) Functional Status: ambulatory [...] Contact Information: Name: Araiza (P) Phone: P) [phone] Pager: Fax: DC Needs Assessment Current Outpt/Agency/Support [...] Steps: Notes: Patient discharged on 07/29/2019 with [facility] for home IVAB. CM to follow for [...] Anesthesia Post Op Service: 09/07/2019 Admitting Physician: Ainval Stevenson MD Date of Surgery: 09/06/2019 Post [...] | | | | | | MDRD IDMI traceable | | | | | | equation.Testing | | | | | | performed at [facility], [address] | | | | | | [facility], | | | | | | [place] [address] | | | | + + + + + + + + | Specimen | + + | Blood | + + + + + + + | Performing | Address | City/State/Zipcode | Phone Number | | Organization | | | | + + + + + | [facility] | [address] | [place] [address] | [phone] | + + + + + CBC [...] [facility] | | | | performed at [facility], [address] | | LABORATORY | | | | [place], | | | | | | [place] [address] | | | | + + + + + + + + | Specimen | + + | Blood | + + + + + + + | Performing | Address | City/State/Zipcode | Phone Number | | Organization | | | | + + + + + | [facility] | [address] | [place] [address] | [phone] | + + + + + POC [...] | | | POC | performed at [facility];[address] | | LABORATORY | | | | [address] [place], [place] | | | | | | [address] | | | | + + + + + + + + | Specimen | + + | | + + + + + + + | Performing | Address | City/State/Zipcode | Phone Number | | Organization | | | | + + + + + | [facility] | [address] | [place] [address] | [phone] | + + + + + CBC [...] [facility] | | | | performed at [facility], [address] | | LABORATORY | | | | [place], | | | | | | [place] [address] | | | | + + + + + + + + | Specimen | + + | Blood | + + + + + + + | Performing | Address | City/State/Zipcode | Phone Number | | Organization | | | | + + + + + | [facility] | [address] | [place] [address] | [phone] | + + + + + Basic [...] | >60Comment: GFR <60: | >60 | [facility] | | | GFR | CHRONIC KIDNEY [...] | | | | | performed at [facility], [address] | | | | | | [facility], | | | | | | [place] [address] | | | | + + + + + + + + | Specimen | + + | Blood | + + + + + + + | Performing | Address | City/State/Zipcode | Phone Number | | Organization | | | | + + + + + | [facility] | [address] | [place] [address] | [phone] | + + + + + Basic [...] | | | | | performed at [facility], [address] | | | | | | [facility], | | | | | | [place] [address] | | | | + + + + + + + + | Specimen | + + | Blood | + + + + + + + | Performing | Address | City/State/Zipcode | Phone Number | | Organization | | | | + + + + + | [facility] | [address] | [place] [address] | [phone] | + + + + + CBC [...] [facility] | | | | performed at [facility], [address] | | LABORATORY | | | | [place], | | | | | | [place] [address] | | | | + + + + + + + + | Specimen | + + | Blood | + + + + + + + | Performing | Address | City/State/Zipcode | Phone Number | | Organization | | | | + + + + + | [facility] | [address] | [place] [address] | [phone] | + + + + + POC Glucose (09/06/2019 3:14 PM PST) + + + + + + | Component | Value | Ref Range | Performed | Pathologist | | | | | At | Signature | + + + + + + | Glucose, | 119 (H)Comment: Testing | 65 - 99 mg/dL | [facility] | | | POC | performed at [facility];[address] | | LABORATORY | | | | [place], [place] | | | | | | [address] | | | | + + + + + + + + | Specimen | + + | | + + + + + + + | Performing | Address | City/State/Zipcode | Phone Number | | Organization | | | | + + + + + | [facility] | [address] | [place] [address] | [phone] | + + + + + Surgical [...] | fecal material and a brock-white exudate. Manager Software sections are | | | submitted in [...] | | technical component was performed by [facility], [address] [place] [address] | | | [place] [address] (Acls Specialist: Mckayla Andino MD; CLIA# | | | [id number]). Professional interpretation was performed [facility] | | | [facility], | | | [place] [address] (Acls Specialist: Renaldo Love M.D.; CLIA#: | | | [id number]). Diagnostician: Arturo Foster | | | DOPathologistElectronically Signed 09/12/2019 | | | | | |PERFORMING LABORATORY: | | |The technical component was performed by [facility], [address] [place] [address] (Acls Specialist: Mckayla Andino MD; CLIA# [id number]). Professional interpretation was performed by | | |[facility] [address] (Acls Specialist: Renaldo Love M.D.; CLIA#: [id number]). | | | | | |Diagnostician: Arturo [...] | | | | | | longer, hkcbfc-lvf-gusge use of | | | | | [...] | | | | | | | walpvp-yxz-ncwwj use of at least | | | [...]
--- OUTSIDE RECORDS SUMMARY | ~2020-01-31 | XMS | Encounter Summary ---
Demographics + + + | Address | [address] | | | [place] [address] | + + + | Home Phone [...] + | Author | [facility] | | | and [place] | + + + | Organization | [facility] [...] [place] | | | | | [address] | | + + + + + Care Team Providers + +------+ + | Care Special Library Librarian Name | Role | Phone | + [...] | | | [place] | [place] | | | | | [address] | [address] | | | | | [phone] | [phone] | | | | | | | [...] EXTERNAL | | | | performed at [facility] | | LAB | | | | Health;[address] | | | | | | [place] | | | | | | [address] | | | | + + + [...]
--- OUTSIDE RECORDS SUMMARY | ~2020-01-31 | XMS | Encounter Summary ---
Demographics + + + | Address | [address] | | | [place] [address] | + + + | Home Phone [...] Author | [facility] | | | and [place] | + + + | Organization | [facility] | | [...] [place] | | | | | [address] | | + + + + + Care Team Providers + +------+ + | Care House Builder Name | Role | Phone | [...] | | | | | | [address] [place], [place] | | | | | | [address] | | | | | | [phone] | | | +--------+ + + + [...]
--- OUTSIDE RECORDS SUMMARY | ~2020-01-31 | XMS | Encounter Summary ---
Demographics + + + | Address | [address] | | | [place] [address] | + + + | Home Phone [...] | Author | [facility] | | | and [place] | + + + | Organization | [facility] [...] [address]TH | | | | | [facility] [place] | | | | | [address] | | + + + + + Care Team Providers + +------+ + | Care Grants Administrator Name | Role | Phone | + +------+ + PCP | Unavailable | + +------+ + Encounter Details +--------+ + + + + | Date | Type | Department | Care Team | Description | +--------+ + + + + | 03/24/ | Hospital | [facility] | Conversion | | | 2013 | Encounter | [facility] | Transaction, | | | | | CLINIC [address] | Provider Unknown | | | | | [place], [place] | | | | | | [address] | (Fax) | | | | | [phone] | | | +--------+ + + + [...] EXTERNAL LAB | | Testing performed at [facility];[address] [place] [address];[place] [address] MRSA PCR | | | NEGATIVE Testing performed at | | | [address];[place] [address] | | + + + + +---------+ [...] EXTERNAL | | | | performed at [facility], [address] | | LAB | | | | [address] [place], | | | | | | [place] [address] | | | | + + + + + + | Red Blood | 4.58Comment: Testing | 4.20 - 5.70 | EXTERNAL | | | Cells | performed at [facility], [address] | M/uL | LAB | | | Counted | [address] [place], | | | | | | [place] [address] | | | | + + + + + + | Hemoglobin | 14.2Comment: Testing | 13.2 - 17.0 | EXTERNAL | | | | performed at [facility], [address] | g/dL | LAB | | | | [address], | | | | | | [place] [address] | | | | + + + + + + | Hematocrit, | 43.3Comment: Testing | 39.0 - 50.0 % | EXTERNAL | | | POC | performed at [facility], [address] | | LAB | | | [address], | | | | | | [place] [address] | | | | + + + + + + | MCV | 94.5Comment: Testing | 80.0 - 100.0 fl | EXTERNAL | | | | performed at [facility], [address] | | LAB | | | | [address], | | | | | | [place] [address] | | | | + + + + + + | MCH | 31.0Comment: Testing | 27.0 - 34.0 pg | EXTERNAL | | | | performed at [facility], [address] | | LAB | | | | [address], | | | | | | [place] [address] | | | | + + + + + + | MCHC | 32.9Comment: Testing | 32.0 - 35.5 | EXTERNAL | | | | performed at [facility], [address] | g/dL | LAB | | | | [address], | | | | | | [place] [address] | | | | + + + + + + | RDW-CV | 48.6Comment: Testing | 37 - 53 fl | EXTERNAL | | | | performed at [facility], [address] | | LAB | | | | [address], | | | | | | [place] [address] | | | | + + + + + + | Platelet | 478 (H)Comment: Testing | 150 - 400 K/uL | EXTERNAL | | | Count | performed at [facility], [address] | | LAB | | | Plasma | [address], | | | | | | [place] [address] | | | | + + + + + + | MPV | 8.4Comment: Testing | fl | EXTERNAL | | | | performed at [facility], [address] | | LAB | | | | [address], | | | | | | [place] [address] | | | | + + + + + + | Differentia | AUTOMATEDComment: | | EXTERNAL | | | l Type | Testing performed at | | LAB | | | | [facility], [address] | | | | | | [place] | | | | | | [address] | | | | + + + + + + | % Segmented | 69.5Comment: Testing | % | EXTERNAL | | | | performed at [facility], [address] | | LAB | | | Neutrophils | [address], | | | | | | [place] [address] | | | | + + + + + + | % | 22.3Comment: Testing | % | EXTERNAL | | | Lymphocytes | performed at [facility], [address] | | LAB | | | | [address], | | | | | | [place] [address] | | | | + + + + + + | % Monocytes | 7.2Comment: Testing | % | EXTERNAL | | | | performed at [facility], [address] | | LAB | | | | [address], | | | | | | [place] [address] | | | | + + + + + + | % | 0.6Comment: Testing | % | EXTERNAL | | | Eosinophils | performed at [facility], [address] | | LAB | | | | [address], | | | | | | [place] [address] | | | | + + + + + + | % Basophils | 0.4Comment: Testing | % | EXTERNAL | | | | performed at [facility], [address] | | LAB | | | | [address], | | | | | | [place] [address] | | | | + + + + + + | Absolute | 9.4 (H)Comment: Testing | 1.9 - 7.4 K/uL | EXTERNAL | | | Segmented | performed at [facility], [address] | | LAB | | | Neutrophils | [address], | | | | | | [place] [address] | | | | + + + + + + | Absolute | 3.0Comment: Testing | 1.0 - 3.9 K/uL | EXTERNAL | | | Lymphocytes | performed at [facility], [address] | | LAB | | | | [address], | | | | | | [place] [address] | | | | + + + + + + | Absolute | 1.0 (H)Comment: Testing | 0 - 0.8 K/uL | EXTERNAL | | | Monocytes | performed at [facility], [address] | | LAB | | | | [address], | | | | | | [place] [address] | | | | + + + + + + | Absolute | 0.1Comment: Testing | 0 - 0.5 K/uL | EXTERNAL | | | Eosinophils | performed at [facility], [address] | | LAB | | | | [address], | | | | | | [place] [address] | | | | + + + + + + | Absolute | 0.1Comment: Testing | 0 - 0.1 K/uL | EXTERNAL | | | Basophils | performed at [facility], [address] | | LAB | | | | [address], | | | | | | [place] [address] | | | | + + + [...] | | | | | [place] [address] | | | | + + + + + + | K | 3.9Comment: Testing | 3.5 - 4.9 | EXTERNAL | | | | performed at [facility], [address] | mmol/L | LAB | | | | [address], | | | | | | [place] [address] | | | | + + + + + + | Cl | 106Comment: Testing | 99 - 109 mmol/L | EXTERNAL | | | | performed at [facility], [address] | | LAB | | | | [address], | | | | | | [place] [address] | | | | + + + + + + | CO2 | 27Comment: Testing | 23 - 32 mmol/L | EXTERNAL | | | | performed at [facility], [address] | | LAB | | | | [address], | | | | | | [place] [address] | | | | + + + + + + | Anion Gap | 9Comment: Testing | 5 - 20 mmol/L | EXTERNAL | | | | performed at [facility], [address] | | LAB | | | | [address], | | | | | | [place] [address] | | | | + + + + + + | Glucose, | 87Comment: Testing | 65 - 99 mg/dL | EXTERNAL | | | Fasting | performed at [facility], [address] | | LAB | | | | [address], | | | | | | [place] [address] | | | | + + + + + + | BUN | 19Comment: Testing | 8 - 25 mg/dL | EXTERNAL | | | | performed at [facility], [address] | | LAB | | | | [address], | | | | | | [place] [address] | | | | + + + + + + | Creatinine | 0.92Comment: Testing | 0.70 - 1.30 | EXTERNAL | | | | performed at [facility], [address] | mg/dL | LAB | | | | [place], | | | | | | [place] [address] | | | | + + + + + + | BUN/Creatin | 21Comment: Testing | | EXTERNAL | | | ine Ratio | performed at [facility], [address] | | LAB | | | | [address], | | | | | | [place] [address] | | | | + + + + + + | Calcium | 9.8Comment: Testing | 8.5 - 10.2 | EXTERNAL | | | | performed at [facility], [address] | mg/dL | LAB | | | | [address], | | | | | | [place] [address] | | | | + + + [...] | | | | | | at [facility], [address] | | | | | | [place], | | | | | | [place] [address] | | | | + + + [...]
--- OUTSIDE RECORDS SUMMARY | ~2020-01-31 | XMS | Encounter Summary ---
Demographics + + + | Address | [address] | | | [place] [address] | + + + | Home Phone [...] Author | [facility] | | | and [place] | + + + | Organization | [facility] | | [...] [place] | | | | | [address] | | + + + + + Care Team Providers + +------+ + | Care Cooker Pie Filling Name | Role | Phone | + [...] [place] | | | | | [address] | [address] | | | | | [phone] | [phone] | | | | | | | [...] EXTERNAL | | | | performed at [facility] | | LAB | | | | Health;[address] | | | | | | [place] | | | | | | [address] | | | | + + + [...]
--- OUTSIDE RECORDS SUMMARY | ~2020-01-31 | XMS | Encounter Summary ---
Demographics + + + | Address | [address] | | | [place] [address] | + + + | Home Phone [...] Providers + +------+ + | Care Resident Assistant Name | Role | Phone | [...] JO Ordaz | | | | | [address] | [facility] | | | | | Loop Physician's | [place], [place] | | | | | [place], [facility] [address] | [address] | | | | | [place], [place] | [phone] | | | | | [address] | | | | | | [phone] | | | +--------+ + + + [...]
--- OUTSIDE RECORDS SUMMARY | ~2020-01-31 | XMS | Encounter Summary ---
Demographics + + + | Address | [address] | | | [place] [address] | + + + | Home Phone [...] + | Author | [facility] | | | and [place] | + + + | Organization | [facility] | [...] [place], [place] | | | | | [address] | | + + + + + Care Team Providers + +------+ + | Care Operator Command Support Systems Name | Role | Phone | + [...] | [place], [place] | [place] [address] | | | | | [address] | [phone] | | | | | [phone] | | | +--------+ + + + [...]
--- OUTSIDE RECORDS SUMMARY | ~2020-01-31 | XMS | Encounter Summary ---
Demographics + + + | Address | [address] | | | [place] [address] | + + + | Home Phone [...] | Author | [facility] | | | and [place] | + + + | Organization | [facility] | | [...] [place] | | | | | [address] | | + + + + + Care Team Providers + +------+ + | Care Disaster Director Name | Role | Phone | [...] | | | | | | | ([facility]) | | | | | | [...] + + | 09/06/ | Surgery | [facility] | Anival Stevenson MD | REPAIR HERNIA | | 2019 | | [facility] | [address] | INCISIONAL COMPLEX | | | | OPERATING ROOM [address] | [address] [place], [place] | | | | | [place] | [address] | | | | | [place], [place] | | | | | | [address] | | | | | | [phone] | | | +--------+---------+ + + + [...] Physician Discharge Summary Patient ID: Reza Cespedes [id number] y.o. 1960 Admit date: 09/06/2019 Discharge [...] bruising may occur. It appears as a udeco-rcg-ajmh area around the incision and indic ates [...] suspect a problem. Our office number is [phone] documented in this encounter Medications at Time [...] MD - 09/12/2019 11:[address] [facility] Service: General Surgery Progress Note Hospital [...] MD - 09/11/2019 10:48 AM PST [facility] Service: General Surgery Progress Note Hospital [...] - 09/10/2019 11:17 AM PS T [facility] Service: General Surgery Progress Note Hospital [...] home and was on IV ABX with [facility] infusion. I called [facility] and Pt [...] MD - 09/09/2019 10:23 AM PST [facility] Service: General Surgery Progress Note Hospital [...] s Caregiver: (P) spouse/significant other, homecare agency (specify)([facility] for h ome IVAB) Functional Status: ambulatory [...] Contact Information: Name: (Tarik Araiza Phone: P) [phone] Pager: Fax: DC Needs Assessment Current Outpt/Agency/Support Groups: (P) infusion therapy, home Community Agency Name: (P) [facility] Anticipated Changes Related to Illness: (P) none [...] Steps: Notes: Patient discharged on 07/29/2019 with [facility] for home IVAB. CM to follow for [...] MD - 09/08/2019 8:[address] AM [address] [facility] Service: General Surgery Progress Note Hospital [...] MD - 09/07/2019 12:[address] PM [address] [facility] Service: General Surgery Progress Note Hospital [...] | | | | | performed at [facility], [address] | | | | | | [facility], | | | | | | [place] [address] | | | | + + + + + + + + | Specimen | + + | Blood | + + + + + + + | Performing | Address | City/State/Zipcode | Phone Number | | Organization | | | | + + + + + | [facility] | [address] | [place] [address] | [phone] | + + + + + CBC [...] [facility] | | | | performed at [facility], [address] | | LABORATORY | | | | [address], | | | | | | [place] [address] | | | | + + + + + + + + | Specimen | + + | Blood | + + + + + + + | Performing | Address | City/State/Zipcode | Phone Number | | Organization | | | | + + + + + | [facility] | [address] | [place] [address] | [phone] | + + + + + POC Glucose (09/10/2019 12:25 PM PST) + + + + + + | Component | Value | Ref Range | Performed | Pathologist | | | | | At | Signature | + + + + + + | Glucose, | 145 (H)Comment: Testing | 65 - 99 mg/dL | [facility] | | | POC | performed at [facility];[address] | | LABORATORY | | | | [address];[place], [place] | | | | | | [address] | | | | + + + + + + + + | Specimen | + + | | + + + + + + + | Performing | Address | City/State/Zipcode | Phone Number | | Organization | | | | + + + + + | [facility] | [address] | [place] [address] | [phone] | + + + + + CBC [...] PRERNA | | | | performed at [facility], [address] | | LABORATORY | | | | [address], | | | | | | [place] [address] | | | | + + + + + + + + | Specimen | + + | Blood | + + + + + + + | Performing | Address | City/State/Zipcode | Phone Number | | Organization | | | | + + + + + | [facility] | [address] | [place] [address] | [phone] | + + + + + Basic [...] | | | | | performed at [facility], [address] | | | | | | [place] [address], | | | | | | [place] [address] | | | | + + + + + + + + | Specimen | + + | Blood | + + + + + + + | Performing | Address | City/State/Zipcode | Phone Number | | Organization | | | | + + + + + | [facility] | [address] | [place] [address] | [phone] | + + + + + Basic [...] | | | | | performed at [facility], [address] | | | | | | [facility], | | | | | | [place], [place] [address] | | | | + + + + + + + + | Specimen | + + | Blood | + + + + + + + | Performing | Address | City/State/Zipcode | Phone Number | | Organization | | | | + + + + + | [facility] | [address] | [place] [address] | [phone] | + + + + + CBC [...] [facility] | | | | performed at [facility], [address] | | LABORATORY | | | | [address], | | | | | | [place] [address] | | | | + + + + + + + + | Specimen | + + | Blood | + + + + + + + | Performing | Address | City/State/Zipcode | Phone Number | | Organization | | | | + + + + + | [facility] | [address] | [place] [address] | [phone] | + + + + + POC Glucose (09/06/2019 3:14 PM PST) + + + + + + | Component | Value | Ref Range | Performed | Pathologist | | | | | At | Signature | + + + + + + | Glucose, | 119 (H)Comment: Testing | 65 - 99 mg/dL | [facility] | | | POC | performed at [facility];[address] | | LABORATORY | | | | [address];[place] | | | | | | [address] | | | | + + + + + + + + | Specimen | + + | | + + + + + + + | Performing | Address | City/State/Zipcode | Phone Number | | Organization | | | | + + + + + | [facility] | [address] | [place] [address] | [phone] | + + + + + Surgical [...] | fecal material and a brock-white exudate. Director Hematology sections are | | | submitted in [...] | | technical component was performed by [facility], [address] [place] [address] | | | [place] [address] (Occup Ther: Mckayla Andino MD; CLIA# | | | [id number]). Professional interpretation was performed [facility] | | [facility], [address], | | | [place] [address] (Occup Ther: Renaldo Love M.D.; CLIA#: | | | [id number]). Diagnostician: Arturo Foster | | | DOPathologistElectronically Signed 09/12/2019 | | | | | |PERFORMING LABORATORY: | | |The technical component was performed by [facility], [address] [place] [address] (Occup Ther: Mckayla Andino MD; CLIA# [id number]). Professional interpretation was performed by | | |[facility], [address] [address] (Occup Ther: Renaldo Love M.D.; CLIA#: [id number]). | | | | | |Diagnostician: Arturo [...]
--- OUTSIDE RECORDS SUMMARY | ~2020-01-31 | XMS | Encounter Summary ---
Demographics + + + | Address | [address] | | | [place] [address] | + + + | Home Phone [...] | [facility] | | | and [place] | + + + | Organization | 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
--- OUTSIDE RECORDS SUMMARY | ~2020-01-31 | XMS | Encounter Summary ---
Demographics + + + | Address | [address] | | | [place] [address] | + + + | Home Phone [...] | Author | [facility] | | | and [place] | + + + | Organization | [facility] [...] [place] | | | | | [address] | | + + + + + Care Team Providers + +------+ + | Care Electronic Integrated Systems Mechanic Name | Role | Phone | [...] + + | 10/07/ | Telephone | [facility] | Anival Stevenson MD | Results | | 2020 | | GENERAL SURGERY [address] | [address] | | | | | [address] | [address] [place], [place] | | | | | [place], [place] | [address] | | | | | [address] | | | | | | [phone] | | | +--------+ + + + [...]
--- OUTSIDE RECORDS SUMMARY | ~2020-01-31 | XMS | Encounter Summary ---
Demographics + + + | Address | [address] | | | [place] [address] | + + + | Home Phone [...] + | Author | [facility] | | | and [place] | + + + | Organization | [facility] | [...] [place] | | | | | [address] | | + + + + + Care Team Providers + +------+ + | Care Health Club Attendant Name | Role | Phone | [...] | | | | [address] | [place], [place] | | | | | [address] [place] | [address] | | | | | [address] | [phone] | | | | | [phone] | | | +--------+--------+ + + + [...]
--- OUTSIDE RECORDS SUMMARY | ~2020-01-31 | XMS | Encounter Summary ---
Demographics + + + | Address | [address] | | | [place] [address] | + + + | Home Phone [...] | [facility] | | | and [place] | + + + | Organization | [facility] | [...] [place] | | | | | [address] | | + + + + + Care Team Providers + +------+ + | Care Production Quality Analyst Name | Role | Phone | + +------+ + PCP | Unavailable | + +------+ + Encounter Details +--------+ + + + + | Date | Type | Department | Care Team | Description | +--------+ + + + + | 07/12/ | Emergency | [facility] | | Leukocytosis; Nausea | | 2013 | | MEDICAL CENTER | | and vomiting; UTI | | | | EMERGENCY CENTER | | (urinary tract | | | | [address] | | infection); Acute | | | | [place] | | bronchiolitis; | | | | [address] | | Abdominal pain, | | | | [phone] | | acute | +--------+ + + [...] GROWTH | | | Testing performed at [facility], [address] | | | [place] [address] | | + + + + +---------+ [...] EXTERNAL | | | | performed at [facility];[address] | | LAB | | | | [address];[place] | | | | | | [address] | | | | + + + + + + | RBC, UA | 0-2Comment: Testing | 0 - 2 /hpf | EXTERNAL | | | | performed at [facility];[address] | | LAB | | | | [address];[place] | | | | | | [address] | | | | + + + + + + | Epithelial | NONE SEENComment: | /lpf | EXTERNAL | | | Cells | Testing performed at | | LAB | | | | [facility];[address];[place] [address] | | | | + + + + + + | Bacteria, | 1+ (A)Comment: Testing | | EXTERNAL | | | UA | performed at [facility];[address] | | LAB | | | | [address];[place] | | | | | | [address] | | | | + + + + + + | Mucus, | 4+Comment: Testing | | EXTERNAL | | | Urine | performed at [facility];[address] | | LAB | | | | [address];[place] | | | | | | [address] | | | | + + + + + + | CASTS | 11-15Comment: | /lpf | EXTERNAL | | | | HYALINETesting performed | | LAB | | | | at [facility];[address] | | | | | | [address];[place] [address] | | | | | | | [...] MaleCT | | CHEST ABDOMEN PELVIS W [id number]/5/2014 4:45 PM HISTORY: Dyspnea with recent surgical [...] (500), | | | | | | food editor SUKHDEV ISAAC (8) | | | | | | on 07/12/2014 6:05:10 PM | | | | | | | | | | + + + + + + + + | Specimen | + + | | + + + + + | Narrative | Performed At | + + + | Historically converted procedure from [facility] environment | EXTERNAL LAB | + [...] TONI | | | Testing performed at [facility];[address] | [address];[place] [address] CULTURE | | | NO GROWTH | | | Testing performed at [facility], [address], [place], [place] | | | [address] | | + + + + +---------+ [...] EXTERNAL | | | | performed at [facility];[address] | | LAB | | | | [address];[place] | | | | | | [address] | | | | + + + + + -+ | Red Blood | 4.67Comment: Testing | 4.20 - 5.70 | EXTERNAL | | | Cells | performed at [facility];[address] | M/uL | LAB | | | Counted | [address];[place] | | | | | | [address] | | | | + + + + + -+ | Hemoglobin | 13.9Comment: Testing | 13.2 - 17.0 | EXTERNAL | | | | performed at [facility];[address] | g/dL | LAB | | | | [address];[place] | | | | | | [address] | | | | + + + + + -+ | Hematocrit, | 41.9Comment: Testing | 39.0 - 50.0 % | EXTERNAL | | | POC | performed at [facility];[address] | | LAB | | | | [address];[place] | | | | | | [address] | | | | + + + + + -+ | MCV | 89.6Comment: Testing | 80.0 - 100.0 fl | EXTERNAL | | | | performed at [facility];[address] | | LAB | | | | [address];[place] | | | | | | [address] | | | | + + + + + -+ | MCH | 29.7Comment: Testing | 27.0 - 34.0 pg | EXTERNAL | | | | performed at [facility];[address] | | LAB | | | | [address];[place] | | | | | | [address] | | | | + + + + + -+ | MCHC | 33.2Comment: Testing | 32.0 - 35.5 | EXTERNAL | | | | performed at [facility];[address] | g/dL | LAB | | | | [address];[place] | | | | | | [address] | | | | + + + + + -+ | RDW-CV | 46.4Comment: Testing | 37 - 53 fl | EXTERNAL | | | | performed at [facility];[address] | | LAB | | | | [address];[place] | | | | | | [address] | | | | + + + + + -+ | Platelet | 603 (H)Comment: Testing | 150 - 400 K/uL | EXTERNAL | | | Count | performed at [facility];[address] | | LAB | | | Plasma | [address];[place] | | | | | | [address] | | | | + + + + + -+ | MPV | 7.8Comment: Testing | fl | EXTERNAL | | | | performed at [facility];[address] | | LAB | | | | [address];[place] | | | | | | [address] | | | | + + + + + -+ | Differentia | MANUALComment: Testing | | EXTERNAL | | | l Type | performed at [facility];[address] | | LAB | | | | [address];[place] | | | | | | [address] | | | | + + + + + -+ | Segmented | 73Comment: Testing | % | EXTERNAL | | | Neutrophils | performed at [facility];[address] | | LAB | | | Manual | [address];[place] | | | | | | [address] | | | | + + + + + -+ | % Bands | 4Comment: Testing | % | EXTERNAL | | | | performed at [facility];[address] | | LAB | | | | [address];[place] | | | | | | [address] | | | | + + + + + -+ | Lymphocytes | 18Comment: Testing | % | EXTERNAL | | | Manual | performed at [facility];[address] | | LAB | | | | [address];[place] | | | | | | [address] | | | | + + + + + -+ | Monocytes | 5Comment: Testing | % | EXTERNAL | | | Manual | performed at [facility];[address] | | LAB | | | | [address];[place] | | | | | | [address] | | | | + + + + + -+ | Absolute | 11.5 (H)Comment: Testing | 1.9 - 7.4 K/uL | EXTERNAL | | | Neutrophils | performed at [facility];[address] | | LAB | | | | [address];[place] | | | | | | [address] | | | | + + + + + -+ | Bands | 0.6 (H)Comment: Testing | 0 - 0.2 K/uL | EXTERNAL | | | Manual | performed at [facility];[address] | | LAB | | | | [address];[place] | | | | | | [address] | | | | + + + + + -+ | Absolute | 2.8Comment: Testing | 1.0 - 3.9 K/uL | EXTERNAL | | | Lymphocytes | performed at [facility];[address] | | LAB | | | | [address];[place] | | | | | | [address] | | | | + + + + + -+ | Absolute | 0.8Comment: Testing | 0 - 0.8 K/uL | EXTERNAL | | | Monocytes | performed at [facility];[address] | | LAB | | | | [address];[place] | | | | | | [address] | | | | + + + + + -+ | RBC | 1+Comment: ANISOGIANT | | EXTERNAL | | | Morphology | PLATELETSTesting | | LAB | | | | performed at [facility];[address] | | | | | | [address];[place] | | | | | | [address] | | | | | | | | | | + + + + + -+ | Na | 138Comment: Testing | 135 - 143 | EXTERNAL | | | | performed at [facility];[address] | mmol/L | LAB | | | | [address];[place] | | | | | | [address] | | | | + + + + + -+ | K | 3.5Comment: SLT | 3.5 - 4.9 | EXTERNAL | | | | HEMOLYSISTesting | mmol/L | LAB | | | | performed at [facility];[address] | | | | | | [address];[place] | | | | | | [address] | | | | + + + + + -+ | Cl | 106Comment: Testing | 99 - 109 mmol/L | EXTERNAL | | | | performed at [facility];[address] | | LAB | | | | [address];[place] | | | | | | [address] | | | | + + + + + -+ | CO2 | 22 (L)Comment: Testing | 23 - 32 mmol/L | EXTERNAL | | | | performed at [facility];[address] | | LAB | | | | [address];[place] | | | | | | [address] | | | | + + + + + -+ | Anion Gap | 14Comment: Testing | 5 - 20 mmol/L | EXTERNAL | | | | performed at [facility];[address] | | LAB | | | | [address];[place] | | | | | | [address] | | | | + + + + + -+ | Glucose, | 109 (H)Comment: Testing | 65 - 99 mg/dL | EXTERNAL | | | Fasting | performed at [facility];[address] | | LAB | | | | [address];[place] | | | | | | [address] | | | | + + + + + -+ | BUN | 32 (H)Comment: Testing | 8 - 25 mg/dL | EXTERNAL | | | | performed at [facility];[address] | | LAB | | | | [address];[place] | | | | | | [address] | | | | + + + + + -+ | Creatinine | 1.16Comment: Testing | 0.70 - 1.30 | EXTERNAL | | | | performed at [facility];[address] | mg/dL | LAB | | | | [address];[place] | | | | | | [address] | | | | + + + + + -+ | BUN/Creatin | 28Comment: Testing | | EXTERNAL | | | ine Ratio | performed at [facility];[address] | | LAB | | | | [address];[place] | | | | | | [address] | | | | + + + + + -+ | Calcium | 9.6Comment: Testing | 8.5 - 10.2 | EXTERNAL | | | | performed at [facility];[address] | mg/dL | LAB | | | | [address];[place] | | | | | | [address] | | | | + + + + + -+ | Protein, | 8.2Comment: Testing | 6.3 - 8.2 g/dL | EXTERNAL | | | Total | performed at [facility];[address] | | LAB | | | | [address];[place] | | | | | | [address] | | | | + + + + + -+ | Albumin | 3.5 (L)Comment: Testing | 3.6 - 5.0 g/dL | EXTERNAL | | | | performed at [facility];[address] | | LAB | | | | [address];[place] | | | | | | [address] | | | | + + + + + -+ | Globulin | 4.6Comment: Testing | 1.3 - 4.9 g/dL | EXTERNAL | | | | performed at [facility];[address] | | LAB | | | | [address];[place] | | | | | | [address] | | | | + + + + + -+ | A/G Ratio | 0.8 (L)Comment: Testing | 1.0 - 2.4 | EXTERNAL | | | | performed at [facility];[address] | | LAB | | | | [address];[place] | | | | | | [address] | | | | + + + + + -+ | Bilirubin | 0.5Comment: Testing | 0.1 - 1.5 mg/dL | EXTERNAL | | | Total | performed at [facility];[address] | | LAB | | | | [address];[place] | | | | | | [address] | | | | + + + + + -+ | ALP, | 111Comment: Testing | 35 - 115 U/L | EXTERNAL | | | External | performed at [facility];[address] | | LAB | | | | [address];[place] | | | | | | [address] | | | | + + + + + -+ | AST | 27Comment: SLT | 10 - 45 U/L | EXTERNAL | | | | HEMOLYSISTesting | | LAB | | | | performed at [facility];[address] | | | | | | [address];[place] | | | | | | [address] | | | | + + + + + -+ | ALT | 23Comment: Testing | 10 - 65 U/L | EXTERNAL | | | | performed at [facility];[address] | | LAB | | | | [address];[place] | | | | | | [address] | | | | + + + [...] | | | | | | at [facility];[address];[place] [address] | | | | + + + + + -+ | CK, Total | 149Comment: Testing | 55 - 400 U/L | EXTERNAL | | | | performed at [facility];[address] | | LAB | | | | [address];[place] | | | | | | [address] | | | | + + + [...] | | | | | performed at [facility];[address] | | | | | | [address];[place] | | | | | | [address] | | | | + + + + + -+ | aPTT, | 24Comment: Testing | 23 - 32 seconds | EXTERNAL | | | Patient | performed at [facility];[address] | | LAB | | | | [address];[place] | | | | | | [address] | | | | + + + + + -+ | CK-MB | 0.6Comment: Testing | 0.5 - 3.6 ng/mL | EXTERNAL | | | | performed at [facility];[address] | | LAB | | | | [address];[place] | | | | | | [address] | | | | + + + [...] GROWTH | | | Testing performed at [facility], [address] | | | [place] [address] | | + + + + +---------+ [...]
--- OUTSIDE RECORDS SUMMARY | ~2020-01-31 | XMS | Encounter Summary ---
Demographics + + + | Address | [address] | | | [place] [address] | + + + | Home Phone [...] + | Author | [facility] | | | and [place] | + + + | Organization | [facility] [...] [place] | | | | | [address] | | + + + + + Care Team Providers + +------+ + | Care Canvas Cutter Name | Role | Phone | [...] | | | dysphagia | | [place] [address] | | | | | Other | | Phone: | | | | | dysphagia | | [phone] | | | | | [[id number]]Unsp | | Fax: | | | | | ecified | | [phone] | | | | | abdominal | [...] | | | | | [address] | [address] | | | | | [place] | [place] [address] | | | | | [address] | [phone] | | | | | [phone] | | | +--------+ + + + [...] + + | Periph | 10/23/15; 733; [id number] | 10/23/15733 by | 10/23/15909 by | [...]
--- OUTSIDE RECORDS SUMMARY | ~2020-01-31 | XMS | Encounter Summary ---
Demographics + + + | Address | [address] | | | [place] [address] | + + + | Home Phone [...] | Author | [facility] | | | and Alexana | + + + | Organization | [facility] | [...] [place] | | | | | [address] | | + + + + + Care Team Providers + +------+ + | Care Customs Brokerage Manager Name | Role | Phone | [...] | | | | dysphagia | | [place] [address] | | | | | Other | | Phone: | | | | | dysphagia | | [phone] | | | | | [R13.19]Unsp | | Fax: | | | | | ecified | | [phone] | | | | | abdominal | | | | | | | pain [R10.9] | | | +--------+--------+ + + + + Encounter Details +--------+ + + + + | Date | Type | Department | Care Team | Description | +--------+ + + + + | 10/23/ | Hospital | [facility] | Adrian Aponte MD | Abdominal pain, | | 2016 | Encounter | [facility] OP | [address] | generalized (Primary | | | | [address] | [place] | Dx); Dysphagia, | | | | [place], [place] | [address] | unspecified | | | | [address] | [phone] | dysphagia; Early | | | | [phone] | | satiety | +--------+ + + [...] the physician who did your procedure at [phone] if you have any questions or experience any of the following: ? Increasing abdominal pain, nausea, or vomiting. ? Chills and fever over 101F. ? New abdominal swelling or bloating. ? Signs of rectal bleeding (black or red stool). If you cannot get a hold of your physician, then call the [facility] [phone] . If necessary, report to the Emergency Department at [facility]. Quit smoking: If you smoke or have [...] 10/23/2015 | [employer] | | 7:35 AMMRN: [id number] #: [id number] of : | | | 1960Admit Type: AmbulatoryAge: 54Room: [facility] 02Gender: MaleNote | | | Status: FinalizedAttending MD: Adrian Aponte, [facility]cedure: | | | Upper GI endoscopyIndications: Epigastric abdominal pain, | | | DysphagiaProviders: Adrian Aponte MD, [facility], | | | RN, Bailey Borrego, [...] the anesthesiologist and the | | | environmental sampling technician in the pre-procedure area in the [...] | | AMScope Out: 8:09:58 AM [facility], [address] | | | [place] [address] | | | patient. Return to normal [...] |Scope Out: 8:09:58 AM | | | [facility], [address] [place], [place] | | | [address] | | + + -+ + +---------+ [...] - | | | Negative for dysplasia. [facility]:C2NR GROSS DESCRIPTION: | | | Received in [...] | and slide preparation were performed by [facility], [address] | | [facility] [address], [place] [address] (Software Quality Automation Engineer: Alex | | | Trevin Hathaway CLIA#: [id number]). Professional interpretation was | | | performed by [facility], [facility], | | | [address] [facility], [place] [address] (Software Quality Automation Engineer: | | | Natan Carson M.D.; CLIA#: [id number]). Diagnostician: | | | Natan Carson MD [...]
--- OUTSIDE RECORDS SUMMARY | ~2020-01-31 | XMS | Encounter Summary ---
Demographics + + + | Address | [address] | | | [place] [address] | + + + | Home Phone [...] Author | [facility] | | | and Alexana | + + + | Organization | [facility] | | | [...] [place] | | | | | [address] | | + + + + + Care Team Providers + +------+ + | Care Cotton Grower Name | Role | Phone | + [...] [place] | | | | | [address] | [address] | | | | | [phone] | [phone] | | | | | | | [...] [place] | | | | | | [address] | | | | + + + + + + | Red Blood | 4.18 (L)Comment: Testing | 4.20 - 5.70 | EXTERNAL | | | Cells | performed at [facility] | M/uL | LAB | | | Counted | Health;[address] | | | | | | [place] | | | | | | [address] | | | | + + + + + + | Hemoglobin | 11.6 (L)Comment: Testing | 13.2 - 17.0 | EXTERNAL | | | | performed at [facility] | g/dL | LAB | | | | Health;[address] | | | | | | [place] | | | | | | [address] | | | | + + + + + + | Hematocrit, | 36.1 (L)Comment: Testing | 39.0 - 50.0 % | EXTERNAL | | | POC | performed at [facility] | | LAB | | | | Health;[address] | | | | | | [place] | | | | | | [address] | | | | + + + + + + | MCV | 86.4Comment: Testing | 80.0 - 100.0 fl | EXTERNAL | | | | performed at [facility] | | LAB | | | | Health;[address] | | | | | | [place] | | | | | | [address] | | | | + + + + + + | MCH | 27.8Comment: Testing | 27.0 - 34.0 pg | EXTERNAL | | | | performed at [facility] | | LAB | | | | Health;[address] | | | | | | [place] | | | | | | [address] | | | | + + + + + + | MCHC | 32.2Comment: Testing | 32.0 - 35.5 | EXTERNAL | | | | performed at [facility] | g/dL | LAB | | | | Health;[address] | | | | | | [place] | | | | | | [address] | | | | + + + + + + | RDW-CV | 59.1 (H)Comment: Testing | 37 - 53 fl | EXTERNAL | | | | performed at [facility] | | LAB | | | | Health;[address] | | | | | | [place] | | | | | | [address] | | | | + + + + + + | Platelet | 629 (H)Comment: Testing | 150 - 400 K/uL | EXTERNAL | | | Count | performed at [facility] | | LAB | | | Plasma | Health;[address] | | | | | | [place] | | | | | | [address] | | | | + + + + + + | MPV | 7.7Comment: Testing | fl | EXTERNAL | | | | performed at [facility] | | LAB | | | | Health;[address] | | | | | | [place] | | | | | | [address] | | | | + + + + + + | Differentia | AUTOMATEDComment: | | EXTERNAL | | | l Type | Testing performed at | | LAB | | | | [facility];[address] | | | | | | [place] | | | | | | [address] | | | | + + + [...] [place] | | | | | | [address] | | | | + + + + + + | Red Blood | 4.18 (L)Comment: Testing | 4.20 - 5.70 | EXTERNAL | | | Cells | performed at [facility] | M/uL | LAB | | | Counted | Health;[address] | | | | | | [place] | | | | | | [address] | | | | + + + + + + | Hemoglobin | 11.6 (L)Comment: Testing | 13.2 - 17.0 | EXTERNAL | | | | performed at [facility] | g/dL | LAB | | | | Health;[address] | | | | | | [place] | | | | | | [address] | | | | + + + + + + | Hematocrit, | 36.1 (L)Comment: Testing | 39.0 - 50.0 % | EXTERNAL | | | POC | performed at [facility] | | LAB | | | | Health;[address] | | | | | | [place] | | | | | | [address] | | | | + + + + + + | MCV | 86.4Comment: Testing | 80.0 - 100.0 fl | EXTERNAL | | | | performed at [facility] | | LAB | | | | Health;[address] | | | | | | [place] | | | | | | [address] | | | | + + + + + + | MCH | 27.8Comment: Testing | 27.0 - 34.0 pg | EXTERNAL | | | | performed at [facility] | | LAB | | | | Health;[address] | | | | | | [place] | | | | | | [address] | | | | + + + + + + | MCHC | 32.2Comment: Testing | 32.0 - 35.5 | EXTERNAL | | | | performed at [facility] | g/dL | LAB | | | | Health;[address] | | | | | | [place] | | | | | | [address] | | | | + + + + + + | RDW-CV | 59.1 (H)Comment: Testing | 37 - 53 fl | EXTERNAL | | | | performed at [facility] | | LAB | | | | Health;[address] | | | | | | [place] | | | | | | [address] | | | | + + + + + + | Platelet | 629 (H)Comment: Testing | 150 - 400 K/uL | EXTERNAL | | | Count | performed at [facility] | | LAB | | | Plasma | Health;[address] | | | | | | [place] | | | | | | [address] | | | | + + + + + + | MPV | 7.7Comment: Testing | fl | EXTERNAL | | | | performed at [facility] | | LAB | | | | Health;[address] | | | | | | [place] | | | | | | [address] | | | | + + + + + + | Differentia | AUTOMATEDComment: | | EXTERNAL | | | l Type | Testing performed at | | LAB | | | | [facility];[address] | | | | | | [place] | | | | | | [address] | | | | + + + [...]
--- OUTSIDE RECORDS SUMMARY | ~2020-01-31 | XMS | Encounter Summary ---
Demographics + + + | Address | [address] | | | [place] [address] | + + + | Home Phone [...] Author | [facility] | | | and [place]ana | + + + | Organization | [facility] | [...] [place] | | | | | [address] | | + + + + + Care Team Providers + +------+ + | Care Machining Associate Name | Role | Phone | [...] + + | 10/13/ | Telephone | [facility] | Anival Stevenson MD | Surgery Appointment | | 2020 | | GENERAL SURGERY [address] | [address] | (reschedule 10/14 | | | | [address] | [address] [place], [place] | appointment) | | | | [place], [place] | [address] | | | | | [address] | | | | | | [phone] | | | +--------+ + + + [...]
--- OUTSIDE RECORDS SUMMARY | ~2020-01-31 | XMS | Encounter Summary ---
Demographics + + + | Address | [address] | | | [place] [address] | + + + | Home Phone | | + + + | Preferred Language | Unknown | + + + | Marital Status | | + + + | Methodist Affiliation | Unknown | + + + [...] Team Providers + +------+ + | Care End Finder Forming Department Name | Role | Phone | + +------+ + | Allison Fairchild NP | PCP | | + +------+ + Encounter Details +--------+ + + + + | Date | Type | Department | Care Team | Description | +--------+ + + + + | 04/26/ | Documentati | [facility] | Jaspal Stevenson, | | | 2013 | on | Center at [facility] [address] | MD [address] | | | | | [address] | [place], [place] | | | | | Mailcode: [facility] | [address] | | | | | [facility] | [phone] | | | | | and Shy[address], | | | | | | | | | | | | Floor [place], [place] | | | | | | [address] | | | | | | [phone] | | | +--------+ + + + [...]
--- OUTSIDE RECORDS SUMMARY | ~2020-01-31 | XMS | Encounter Summary ---
Demographics + + + | Address | [address] | | | [place] [address] | + + + | Home Phone [...] | Author | [facility] | | | and [place] | + + + | Organization | [facility] [...] [place] | | | | | [address] | | + + + + + Care Team Providers + +------+ + | Care Security Services Specialist Name | Role | Phone | [...] | | | | | | | [place] | | | | | | | ANESTHESIA | | | | | | | UPPER GI | | | | | | | ENDOSCOPIC | | | | | | | PX ERCP [place] | | | | | | | [...] CTR MP INTRA OP | [address], [place] | | | | | [address] | [address] [place], [place] | | | | | [place], [place] | [address] | | | | | [address] | | | | | | [phone] | | | +--------+---------+ + + + [...] You can't be awakened Date Last Reviewed: 06/24/201619996194-9119 [employer] [place] [address]. All righ ts reserved. This information is [...] 02/12/2018 | [employer]ATION | | 11:06 AMMRN: [id number] #: [id number] of : | | | 1960Admit Type: AmbulatoryAge: 57Room: [facility] 01Gender: MaleNote | | | [...] | | | the anesthesiologist and the install technician in the endoscopy suite. | | [...] Scope In: 11:27:31 AMScope Out: 11:31:38 AM [facility] | | | [facility], [address] [place] [address] | | | [phone] | | | - Discharge patient to [...] |Scope Out: 11:31:38 AM | | | [facility], [address] [place] [address] | | | [address] | | + + -+ + +---------+ [...]
--- OUTSIDE RECORDS SUMMARY | ~2020-01-31 | XMS | Encounter Summary ---
Demographics + + + | Address | [address] | | | [place] [address] | + + + | Home Phone [...] + | Author | [facility] | | | and [place]ana | + + + | Organization | [facility] | | [...] [place] | | | | | [address] | | + + + + + Care Team Providers + +------+ + | Care Direct Entry Midwife Name | Role | Phone | + [...] [place] | | | | | [address] | [address] | | | | | [phone] | [phone] | | | | | | | [...] [place] | | | | | | [address] | | | | + + + + + + | Red Blood | 4.18 (L)Comment: Testing | 4.20 - 5.70 | EXTERNAL | | | Cells | performed at [facility] | M/uL | LAB | | | Counted | Health;[address] | | | | | | [place] | | | | | | [address] | | | | + + + + + + | Hemoglobin | 11.6 (L)Comment: Testing | 13.2 - 17.0 | EXTERNAL | | | | performed at [facility] | g/dL | LAB | | | | Health;[address] | | | | | | [place] | | | | | | [address] | | | | + + + + + + | Hematocrit, | 36.1 (L)Comment: Testing | 39.0 - 50.0 % | EXTERNAL | | | POC | performed at [facility] | | LAB | | | | Health;[address] | | | | | | [place] | | | | | | [address] | | | | + + + + + + | MCV | 86.4Comment: Testing | 80.0 - 100.0 fl | EXTERNAL | | | | performed at [facility] | | LAB | | | | Health;[address] | | | | | | [place] | | | | | | [address] | | | | + + + + + + | MCH | 27.8Comment: Testing | 27.0 - 34.0 pg | EXTERNAL | | | | performed at [facility] | | LAB | | | | Health;[address] | | | | | | [place] | | | | | | [address] | | | | + + + + + + | MCHC | 32.2Comment: Testing | 32.0 - 35.5 | EXTERNAL | | | | performed at [facility] | g/dL | LAB | | | | Health;[address] | | | | | | [place] | | | | | | [address] | | | | + + + + + + | RDW-CV | 59.1 (H)Comment: Testing | 37 - 53 fl | EXTERNAL | | | | performed at [facility] | | LAB | | | | Health;[address] | | | | | | [place] | | | | | | [address] | | | | + + + + + + | Platelet | 629 (H)Comment: Testing | 150 - 400 K/uL | EXTERNAL | | | Count | performed at [facility] | | LAB | | | Plasma | Health;[address] | | | | | | [place] | | | | | | [address] | | | | + + + + + + | MPV | 7.7Comment: Testing | fl | EXTERNAL | | | | performed at [facility] | | LAB | | | | Health;[address] | | | | | | [place] | | | | | | [address] | | | | + + + + + + | Differentia | AUTOMATEDComment: | | EXTERNAL | | | l Type | Testing performed at | | LAB | | | | [facility];[address] | | | | | | [place] | | | | | | [address] | | | | + + + [...] [place] | | | | | | [address] | | | | + + + + + + | Red Blood | 4.18 (L)Comment: Testing | 4.20 - 5.70 | EXTERNAL | | | Cells | performed at [facility] | M/uL | LAB | | | Counted | Health;[address] | | | | | | [place] | | | | | | [address] | | | | + + + + + + | Hemoglobin | 11.6 (L)Comment: Testing | 13.2 - 17.0 | EXTERNAL | | | | performed at [facility] | g/dL | LAB | | | | Health;[address] | | | | | | [place] | | | | | | [address] | | | | + + + + + + | Hematocrit, | 36.1 (L)Comment: Testing | 39.0 - 50.0 % | EXTERNAL | | | POC | performed at [facility] | | LAB | | | | Health;[address] | | | | | | [place] | | | | | | [address] | | | | + + + + + + | MCV | 86.4Comment: Testing | 80.0 - 100.0 fl | EXTERNAL | | | | performed at [facility] | | LAB | | | | Health;[address] | | | | | | [place] | | | | | | [address] | | | | + + + + + + | MCH | 27.8Comment: Testing | 27.0 - 34.0 pg | EXTERNAL | | | | performed at [facility] | | LAB | | | | Health;[address] | | | | | | [place] | | | | | | [address] | | | | + + + + + + | MCHC | 32.2Comment: Testing | 32.0 - 35.5 | EXTERNAL | | | | performed at [facility] | g/dL | LAB | | | | Health;[address] | | | | | | [place] | | | | | | [address] | | | | + + + + + + | RDW-CV | 59.1 (H)Comment: Testing | 37 - 53 fl | EXTERNAL | | | | performed at [facility] | | LAB | | | | Health;[address] | | | | | | [place] | | | | | | [address] | | | | + + + + + + | Platelet | 629 (H)Comment: Testing | 150 - 400 K/uL | EXTERNAL | | | Count | performed at [facility] | | LAB | | | Plasma | Health;[address] | | | | | | [place] | | | | | | [address] | | | | + + + + + + | MPV | 7.7Comment: Testing | fl | EXTERNAL | | | | performed at [facility] | | LAB | | | | Health;[address] | | | | | | [place] | | | | | | [address] | | | | + + + + + + | Differentia | AUTOMATEDComment: | | EXTERNAL | | | l Type | Testing performed at | | LAB | | | | [facility];[address] | | | | | | [place] | | | | | | [address] | | | | + + + [...]
--- OUTSIDE RECORDS SUMMARY | ~2020-01-31 | XMS | Encounter Summary ---
Demographics + + + | Address | [address] | | | [place] [address] | + + + | Home Phone [...] Author | [facility] | | | and [place] | + + + | Organization | [facility] | [...] [place] | | | | | [address] | | + + + + + Care Team Providers + +------+ + | Care Supervisor Assembly Department Name | Role | Phone | [...] + + | 09/06/ | Anesthesia | [facility] | Mariel Mi CRNA | | | 2019 | [facility] | [address] | | | | | OPERATING ROOM [address] | [place] [address] | | | | | [address] | [phone] | | | | | [place], [place] | | | | | | [address] | Rom Stevenson, | | | | | [phone] | SCORING MACHINE OPERATOR [address] | | | | | | [place] [address] | | | | | | [phone] | | | | | | | [...] +----+---+ + + | | 0 | [place] | | | | 9 | 43-degrees [...] will talk to Dr. Stevenson to start CATTLE STICKER for better pain | | | 0 [...] Patient room; | | | | | Quill Winder; Miriam Duran RN; | | | | [...] number | | | | | (specify) ([id number]); 4 Fr, | | | | | [...] | | Ventilation: EZ; Airway Grade: | SCORING MACHINE OPERATOR | | | | 2a; External Maneuvers: [...] | | | procedure documentation); Mask | SCORING MACHINE OPERATOR | | | | Ventilation: EZ; Airway [...] Isabel Hamilton, the patient's | | | health care coach and medical decision maker) Patient position: sitting [...]
--- OUTSIDE RECORDS SUMMARY | ~2020-01-31 | XMS | Encounter Summary ---
Demographics + + + | Address | [address] | | | [place] [address] | + + + | Home Phone [...] Author | [facility] | | | and [place] | + + + | Organization | [facility] | [...] [place] | | | | | [address] | | + + + + + Care Team Providers + +------+ + | Care Die Presser Name | Role | Phone | [...] + + | 09/12/ | Telephone | [facility] | Anival Stevenson MD | Appointment Question | | 2020 | | GENERAL SURGERY [address] | [address] | | | | | [address] | [address] [place], [place] | | | | | [place], [place] | [address] | | | | | [address] | | | | | | [phone] | | | +--------+ + + + [...]
--- OUTSIDE RECORDS SUMMARY | ~2020-01-31 | XMS | Encounter Summary ---
Demographics + + + | Address | [address] | | | [place] [address] | + + + | Home Phone [...] + | Author | [facility] | | | and [place] | + + + | Organization | [facility] | | [...] [place] | | | | | [address] | | + + + + + Care Team Providers + +------+ + | Care Pearl Maker Name | Role | Phone | [...] | | | | | | | [place] | | | | | | | ANESTHESIA | | | | | | | UPPER GI | | | | | | | ENDOSCOPIC | | | | | | | PX ERCP [place] | | | | | | | [...] | | | | | [address] | [address] [place] | | | | | [place], [place] | [place] [address] | | | | | [address] | [phone] | | | | | [phone] | | | +--------+ + + + [...] 02/12/18 1207 by | | caitlin | [id number] catheter system; | Rosy Mcmanus, | Shayna [...]
--- OUTSIDE RECORDS SUMMARY | ~2020-01-31 | XMS | Encounter Summary ---
Demographics + + + | Address | [address] | | | [place] [address] | + + + | Home Phone [...] [facility] | | | and [place] | + + + | Organization | [facility] | | [...] [place] | | | | | [address] | | + + + + + Care Team Providers + +------+ + | Care Scrub Nurse Name | Role | Phone | [...] | | | | nausea | [address] | | | | | Epigastric | BLVD | [address] | | | | | pain | [place], [place] | AVE | | | | | Abdominal | [address] | [place], [place] | | | | | pain, | Phone: | [address] | | | | | unspecified | [phone] | Phone: | | | | | abdominal | Fax: | [phone] | | | | | location | [phone] | Fax: | | | | | Procedures | | [phone] | | | | | CT Abdomen [...] | | | Chronic | Blvd | [place] [address] | | | | | hepatitis, | [place], | Phone: | | | | | unspecified | [place] [address] | [phone] | | | | | (HCC) | Phone: | Fax: | | | | | Nausea | [phone] | [phone] | | | | | Procedures | Fax: | | | | | | Office Visit | [phone] | | +--------+--------+ + + + + Encounter Details +--------+---------+ + + + | Date | Type | Department | Care Team | Description | +--------+---------+ + + + | 10/20/ | Office | [facility] | Adrian Aponte MD | Severe nausea | | 2018 | Visit | GASTROENTEROLOGY | [address] | (Primary Dx); | | | | [address] | [place], [place] | Epigastric pain; | | | | [address] [place], [place] | [address] | Dysphagia, | | | | [address] | [phone] | unspecified type; | | | | [phone] | | Narcotic dependence | | | [...] ap proved, he would like done at [facility]; advised to hold PPI morning of procedure, 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 documented in this e ncounter Plan [...]
--- OUTSIDE RECORDS SUMMARY | ~2020-01-31 | XMS | Encounter Summary ---
Demographics + + + | Address | [address] | | | [place] [address] | + + + | Home Phone [...] Author | [facility] | | | and [place] | + + + | Organization | [facility] | | | and [...] [place] | | | | | [address] | | + + + + + Care Team Providers + +------+ + | Care Automated Weaver Name | Role | Phone | + [...] + | 09/23/ | Telephone | [facility] | Anival Stevenson MD | Post-op Question | | 2020 | | GENERAL SURGERY [address] | [address] | | | | | [address] | [address] [place], [place] | | | | | [place], [place] | [address] | | | | | [address] | | | | | | [phone] | | | +--------+ + + + [...]
--- OUTSIDE RECORDS SUMMARY | ~2020-01-31 | XMS | Encounter Summary ---
Demographics + + + | Address | [address] | | | [place] [address] | + + + | Home Phone [...] | [facility] | | | and [place] | + + + | Organization | [facility] | | | [...] [place] | | | | | [address] | | + + + + + Care Team Providers + +------+ + | Care Putty Mixer Name | Role | Phone | + +------+ + | Allison Fairchild NP | PCP | | + +------+ + Encounter Details +--------+ + + + + | Date | Type | Department | Care Team | Description | +--------+ + + + + | 12/10/ | Hospital | [facility] | Conversion | Closed compression | | 2017 | Encounter | [facility] | Transaction, | fracture of fourth | | | | [address] | Provider Unknown | lumbar vertebra, | | | | [place], [place] | [phone] | initial encounter | | | | [address] | | ([facility]); Low back | | | | [phone] | Bryant Forrest, | pain, unspecified | | | | | MD [address] | back pain | | | | | AVE [place], [place] | laterality, | | | | | [address] | unspecified | | | | | [...]
--- OUTSIDE RECORDS SUMMARY | ~2020-01-31 | XMS | Encounter Summary ---
Demographics + + + | Address | [address] | | | [place] [address] | + + + | Home Phone [...] | Author | [facility] | | | and Alexana | + + + | Organization | [facility] | [...] [place] | | | | | [address] | | + + + + + Care Team Providers + +------+ + | Care Insurance Coder Name | Role | Phone | + [...] + | 11/12/ | Telephone | [facility] | Adrian Aponte MD | EGD | | 2018 | | GASTROENTEROLOGY | [address] | | | | | [address] [facility] | [place], [place] | | | | | [address] [place] | [address] | | | | | [address] | [phone] | | | | | [phone] | | | +--------+ + + + [...]
--- OUTSIDE RECORDS SUMMARY | ~2020-01-31 | XMS | Encounter Summary ---
Demographics + + + | Address | [address] | | | [place] [address] | + + + | Home Phone [...] | [facility] | | | and [place] | + + + | Organization | [facility] | | [...] [place] | | | | | [address] | | + + + + + Care Team Providers + +------+ + | Care Storage Battery Inspector Name | Role | Phone | + +------+ + | Allison Fairchild NP | PCP | | + +------+ + Encounter Details +--------+ + + + + | Date | Type | Department | Care Team | Description | +--------+ + + + + | 10/08/ | Hospital | [facility] | Conversion | | | 2017 | Encounter | CENTER [facility] | Transaction, | | | | | [address] | Provider Unknown | | | | | [place], [place] | [phone] | | | | | [address] | | | | | | [phone] | Jamie Bentley MD | | | | | | [address] | | | | | | [address] [place], [place] | | | | | | [address] | | | | | | | [...]
--- OUTSIDE RECORDS SUMMARY | ~2020-01-31 | XMS | Encounter Summary ---
Demographics + + + | Address | [address] | | | [place] [address] | + + + | Home Phone [...] Author | [facility] | | | and [place] | + + + | Organization | [facility] | | | [...] [place] | | | | | [address] | | + + + + + Care Team Providers + +------+ + | Care Slicing Machine Feeder Name | Role | Phone | + +------+ + | Allison Fairchild NP | PCP | | + +------+ + Encounter Details +--------+ + + + + | Date | Type | Department | Care Team | Description | +--------+ + + + + | 12/13/ | Hospital | [facility] | Conversion | 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
--- OUTSIDE RECORDS SUMMARY | ~2020-01-31 | XMS | Encounter Summary ---
Demographics + + + | Address | [address] | | | [place] [address] | + + + | Home Phone | | + + + | Preferred Language | Unknown | + + + | Marital Status | | + + + | Jehovah'S Witness Affiliation | Unknown | + + + [...] Team Providers + +------+ + | Care Braille Typist Name | Role | Phone | + [...] | | | | | | | [place], [place] | | | | | | | [address] | | | | | | | Phone: | | | | | | | [phone] | | | | | | | Fax: | | | | | | | [phone] | +--------+--------+ + + + + Encounter Details +--------+---------+ + + + | Date | Type | Department | Care Team | Description | +--------+---------+ + + + | 04/21/ | Office | [facility] | Jaspal Stevenson, | Allergic rhinitis, | | 2012 | Visit | Center at [facility] [address] | [address] | cause unspecified | | | | [address] | [place], [place] | (Primary Dx); | | | | Mailcode: [id number] | [address] | Deviated nasal | | | | [place] for [facility] | [phone] | septum; Hypertrophy | | | | and Healing, | | of nasal turbinates | | | | Building [address], 5th | | | | | | Floor [place], [place] | | | | | | [address] | | | | | | [phone] | | | +--------+---------+ + + + [...] Ruiz. Jaspal Stevenson M.D., M.P.H., F.A.C.S. Director, [facility] Professor and Chief, Rhinology and Sinus Surgery Department of Otolaryngology/Head and Neck Surgery Ninoska medina PA -C - 04/21/2013 11:52 AM PDT I, NINOSKA OTIS, PA-C, am functioning as a scribe for Dr. Stevenson. [facility] HPI: Reza Cespedes is a 52 y.o. male who presents to the [facility] in [facility] for Septal deviation and Turbinate hypertrophy. Current [...] | + +--------+ + + + | AR NASAL | Routin | 04/22/2013 | Allergic [...]
--- OUTSIDE RECORDS SUMMARY | ~2020-01-31 | XMS | Encounter Summary ---
Demographics + + + | Address | [address] | | | [place] [address] | + + + | Home Phone [...] Author | [facility] | | | and [place] | + + + | Organization | [facility] | | | [...] [place] | | | | | [address] | | + + + + + Care Team Providers + +------+ + | Care Packaging Engineer Name | Role | Phone | [...] | 01/21/ | Telephone | [facility] [place] | Adrian Aponte MD | Vomiting | | 2018 | | GASTROENTEROLOGY | [address] [facility] | | | | | [address] [facility] | [place], [place] | | | | | [address] [place] | [address] | | | | | [address] | [phone] | | | | | [phone] | | | +--------+ + + + [...]
--- OUTSIDE RECORDS SUMMARY | ~2020-01-31 | XMS | Encounter Summary ---
Demographics + + + | Address | [address] | | | [place] [address] | + + + | Home Phone [...] Author | [facility] | | | and [place] | + + + | Organization | [facility] [...] [place] | | | | | [address] | | + + + + + Care Team Providers + +------+ + | Care Cardiac Specialist Name | Role | Phone | + +------+ + PCP | Unavailable | + +------+ + Encounter Details +--------+ + + + + | Date | Type | Department | Care Team | Description | +--------+ + + + + | 08/28/ | Hospital | [facility] | Conversion | Pain | | 2014 | Encounter | CONVERSION [address]P [address] | Transaction, | | | | [address] | Provider Unknown | | | | | [place], [place] | | | | | | [address] | (Fax) | | | | | [phone] | | | +--------+ + + + [...]
--- OUTSIDE RECORDS SUMMARY | ~2020-01-31 | XMS | Encounter Summary ---
Demographics + + + | Address | [address] | | | [place] [address] | + + + | Home Phone [...] | Author | [facility] | | | and [place] | + + + | Organization | [facility] [...] [place], [place] | | | | | [address] | | + + + + + Care Team Providers + +------+ + | Care Operations Specialist Name | Role | Phone | [...] | [place], [place] | [place] [address] | | | | | [address] | [phone] | | | | | [phone] | | | +--------+ + + + [...]
--- OUTSIDE RECORDS SUMMARY | ~2020-01-31 | XMS | Encounter Summary ---
Demographics + + + | Address | [address] | | | [place] [address] [...] | Author | [facility] | | | and [place] | + + + | Organization | [facility] | [...] [place] | | | | | [address] | | + + + + + Care Team Providers + +------+ + | Care Culture Media Laboratory Assistant Name | Role | Phone | [...] 2018 | | GASTROENTEROLOGY | [address], [place] | | | | | [address] [place] | [address] [place], [place] | | | | | [address] [place], [place] | [address] | | | | | [address] | | | | | | [phone] | | | +--------+ + + + [...]
--- OUTSIDE RECORDS SUMMARY | ~2020-01-31 | XMS | Encounter Summary ---
Demographics + + + | Address | [address] | | | [place] [address] | + + + | Home Phone [...] + + | Author | [facility] | | | and [place] | + + + | Organization | [facility] | | [...] [place] | | | | | [address] | | + + + + + Care Team Providers + +------+ + | Care Reproduction Order Processor Name | Role | Phone | [...] | | | | [address] [facility] | [place], [place] | | | | | [address] [place] [place] | [address] | | | | | [address] | [phone] | | | | | [phone] | | | +--------+--------+ + + + [...]
--- OUTSIDE RECORDS SUMMARY | ~2020-01-31 | XMS | Encounter Summary ---
Demographics + + + | Address | [address] | | | [place] [address] | + + + | Home Phone [...] | Author | [facility] | | | and [place] | + + + | Organization | [facility] | | [...] [place] | | | | | [address] | | + + + + + [...] [place] | | | | | [address] | [address] | | | | | [phone] | [phone] | | | | | | | [...] EXTERNAL LAB | | Testing performed at [facility] | | | Health;[address];[place] [address] GRAM STAIN | | | GRAM POSITIVE COCCI IN CLUSTERS SEEN IN ANAEROBIC | | | BOTTLE SMEAR | | | RESULTS CALLED TO AND READ BACK BY: GAYLE Henderson RN TRIOS 2E 09/03 [facility] | | | Testing performed | | | at [facility], [address] [place] [address] CULTURE | | | STAPHYLOCOCCUS SPECIES, COAGULASE | | | NEGATIVE GROWTH | | | IN ONE OF TWO BOTTLES | | | TIME TO DETECTION: 47 HOURS 5 MINITES | | | POSSIBLE CONTAMINANT, CLINICAL CORRELATION | | | REQUIRED. Testing | | | performed at [facility], [address] [place] [address] | | | REPORT STATUS 09/12/2013 FINAL [...]
--- OUTSIDE RECORDS SUMMARY | ~2020-01-31 | XMS | Encounter Summary ---
Demographics + + + | Address | [address] | | | [place] [address] | + + + | Home Phone [...] Author | [facility] | | | and [place] | + + + | Organization | [facility] | | [...] [place] | | | | | [address] | | + + + + + Care Team Providers + +------+ + | Care Senior Principal Software Engineer Name | Role | Phone [...] | | | | | PX ERCP NE | | | | | | [...] + + | 02/12/ | Hospital | [facility] | Dc Naik MD | Obstruction of | | 2018 | Encounter | MED [facility] INTRA OP | [address], [place] | biliary stent, | | | | [address] | [address] [place], [place] | subsequent encounter | | | | [place], [place] | [address] | (Primary Dx) | | | | [address] | | | | | | [phone] | | | +--------+ + + + [...] You can't be awakened Date Last Reviewed: 06/24/201619999997-2891 [employer]. [address] [place] [address]. All righ ts reserved. This information is [...] 02/12/2018 | PROVATION | | 11:06 AMMRN: [id number] #: [id number] of : | | | 1960Admit Type: AmbulatoryAge: 57Room: [facility] 01Gender: MaleNote | | | Status: FinalizedAttending MD: Dc Naik [facility]: | | | ERCPIndications: Biliary stent removalProviders: [...] | | | the anesthesiologist and the operating room surgical technician in the endoscopy suite. | | [...] Scope In: 11:27:31 AMScope Out: 11:31:38 AM [facility] | | | [facility], [address] [place] [address] | | | [phone] | | | - Discharge patient to [...] |Scope Out: 11:31:38 AM | | | [facility], [address] [place] [address] | | | [address] | | + + -+ + +---------+ [...]
--- OUTSIDE RECORDS SUMMARY | ~2020-01-31 | XMS | Encounter Summary ---
Demographics + + + | Address | [address] | | | [place] [address] | + + + | Home Phone [...] [facility] | | | and [place] | + + + | Organization | [facility] | | [...] [place] | | | | | [address] | | + + + + + Care Team Providers + +------+ + | Care Slip Maker Name | Role | Phone | [...] [place] | | | | | [address] | [address] | | | | | [phone] | [phone] | | | | | | | [...] | | | | [place], [place] [address] | | | | + + + + + + | FIBROSURE | SEE BELOWComment: F2, | | EXTERNAL | | | STAGE | BRIDGING FIBROSIS, FEW | | LAB | | | | SEPTATesting performed | | | | | | at [facility] [place], [address] | | | | | | [address] [place], [place], | | | | | | [place] [address] | | | | + + + + + + | Necroinflam | 0.19 (H)Comment: Testing | 0.00 - 0.17 | EXTERNAL | | | mat | performed at [facility] | | LAB | | | Activity | [place] | | | | | Score | [place], [place] [address] | | | | + + + + + + | Necroinflam | A0 TO X4Jkalymq: Testing | | EXTERNAL | | | mat | performed at [facility] | | LAB | | | Activity | [place] | | | | | Grade | [place], [place] [address] | | | | + + + + + + | Alpha | 452 (H)Comment: Testing | 110 - 276 mg/dL | EXTERNAL | | | 2-Macroglob | performed by [facility], | | LAB | | | [place], [place] | [address], | | | | | | [facility] [address] | | | | + + + + + + | Haptoglobin | 431 (H)Comment: Testing | 34 - 200 mg/dL | EXTERNAL | | | | performed by [facility], | | LAB | | | | [address] [facility], | | | | | | [facility] [address] | | | | + + + + + + | Apolipoprot | 111Comment: Testing | 110 - 180 mg/dL | EXTERNAL | | | ein A-1 | performed by [facility], | | LAB | | | | [address] [facility], | | | | | | [facility] [address] | | | | + + + + + + | Bilirubin, | 0.3Comment: Testing | 0.0 - 1.2 mg/dL | EXTERNAL | | | Total | performed by [facility], | | LAB | | | | [address] [facility], | | | | | | [facility] [address] | | | | + + + + + + | Gamma | 46Comment: Testing | 0 - 65 IU/L | EXTERNAL | | | Glutamyl | performed by [facility], | | LAB | | | Transferase | [address], | | | | | | [facility] [address] | | | | + + + + + + | ALT (SGPT) | 30Comment: Testing | 0 - 55 IU/L | EXTERNAL | | | P5P | performed by [facility], | | LAB | | | | [address], | | | | | | [facility] [address] | | | | + + + [...] | | | | [place] [address] | | | | + + + [...] | | | | | | [place] [address] | | | | + + + [...] | | | | [place] [address] | | | | + + + + + + + + | Specimen | + + | | + + + +---------+ + + | Performing | Address | City/State/[facility] Centercode | Phone Number | | Organization | | | | + +---------+ + + | EXTERNAL LAB | | | | + +---------+ + + documented in this encounter Visit Diagnoses Not on filedocumented in this encounter"
--- OUTSIDE RECORDS SUMMARY | ~2020-01-31 | XMS | Encounter Summary ---
Demographics + + + | Address | [address] | | | [place] [address] | + + + | Home Phone [...] Author | [facility] | | | and [place] | + + + | Organization | [facility] [...] [place] | | | | | [address] | | + + + + + Care Team Providers + +------+ + | Care Supervisor Sawmill Name | Role | Phone | + +------+ + | Allison Fairchild NP | PCP | | + +------+ + Encounter Details +--------+ + + + + | Date | Type | Department | Care Team | Description | +--------+ + + + + | 09/06/ | Hospital | [facility] | Anival Stevenson MD | | | 2019 | Encounter | [facility] | [address] | | | | | UL[address] | [address] [place], [place] | | | | | [address] | [address] | | | | | [place], [place] | | | | | | [address] | | | | | | [phone] | | | +--------+ + + + [...]
--- OUTSIDE RECORDS SUMMARY | ~2020-01-31 | XMS | Encounter Summary ---
Demographics + + + | Address | [address] | | | [place] [address] | + + + | Home Phone [...] | Author | [facility] | | | and [place] | + + + | Organization | [facility] | [...] [place] | | | | | [address] | | + + + + + Care Team Providers + +------+ + | Care Bookseamer Blindstitch Name | Role | Phone | + [...] [place] | | | | | [address] | [address] | | | | | [phone] | [phone] | | | | | | | [...] EXTERNAL LAB | | Testing performed at [facility] | | | Health;[address];[place] [address] CULTURE | | | NO GROWTH 6 DAYS | | | Testing performed at [facility], [address] [facility], | | | [place] [address] REPORT STATUS | | | 10/09/2013 FINAL [...]
--- OUTSIDE RECORDS SUMMARY | ~2020-01-31 | XMS | Encounter Summary ---
Demographics + + + | Address | [address] | | | [place] [address] | + + + | Home Phone [...] | Author | [facility] | | | and [place] | + + + | Organization | [facility] | | | [...] [place] | | | | | [address] | | + + + + + Care Team Providers + +------+ + | Care Travel Agent Name | Role | Phone | [...] | | abdominal abscess on 07/30/19 at [facility]. Pt had couple abdominal | | | hernia repairs done by Dr. Mc MD [phone]. 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 Pt had couple abdominal hernia repairs d one by Dr. Mc MD [id number]. Pt stated he is here today for [...] abdomen and pelvis. [facility] to [facility] liver [...] duct stent by Dr. LIANNA Joseph in [place]. Prior to this stents had to be replaced or revised due to obstruction. As again I am assuming this was placed to deal with a persistent bile leak from his liver surgery. 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 This was evaluated at [facility] but no intervention was performed. It is stenotic but not occluded. What was found was an occlusion of the rig ht iliac and this was treated by Dr. Washington here at [facility] on June 01. Last month the [...] Procedure: ERCP; Surgeon: Dc Naik MD; Location: [facility] ERCP N/A 02/12/2018 Procedure: ERCP; Surgeon: Dc Naik MD; Location: [facility] FRACTURE SURGERY 2011 skull/facial HARDWARE REMOVAL Right Hardware placement and removal thumb HERNIA REPAIR pt has 2 hernia repairs and 3rd revision on 12-18-14 hip screw removed Right 2013 Nasal reconstruction 1977 right hip/pelvis surgery 2012 [facility] 2011 UPPER GASTROINTESTINAL ENDOSCOPY UPPER GASTROINTESTINAL ENDOSCOPY N/A 10/23/2015 Procedure: EGD; Surgeon: Adrian Aponte MD; Location: [facility] UPPER GASTROINTESTINAL ENDOSCOPY N/A 11/18/2017 Procedure: EGD; Surgeon: Adrian Aponte MD; Location: [facility] XR LUMBAR SPINE [...] | | | | | performed at [facility];[address] | | | | | | [facility] | | | | | | [facility];[place] [address] | | | | | | | | | | + + + + + + + + | Specimen | + + | Blood | + + + + + + + | Performing | Address | City/State/Zipcode | Phone Number | | Organization | | | | + + + + + | REFERENCE LAB | [address] | [place] | [phone] | | [facility] [address] | [address] | | | LABORATORY | | | | + + + + + | REFERENCE LAB | [address] | [place] | | | [facility] | [address] | [address] | | | LABORATORY | | | [...]
--- OUTSIDE RECORDS SUMMARY | ~2020-01-31 | XMS | Encounter Summary ---
Demographics + + + | Address | [address] | | | [place] [address] | + + + | Home Phone [...] | Author | [facility] | | | and [place] | + + + | Organization | [facility] | | [...] [place] | | | | | [address] | | + + + + + Care Team Providers + +------+ + | Care Transport Specialist Name | Role | Phone | + +------+ + PCP | Unavailable | + +------+ + Encounter Details +--------+ + + + + | Date | Type | Department | Care Team | Description | +--------+ + + + + | 03/04/ | Hospital | [facility] | Conversion | Pain | | 2013 | Encounter | CONVERSION [address] | Transaction, | | | | [address] | Provider Unknown | | | | | [place], [place] | | | | | | [address] | (Fax) | | | | | [phone] | | | +--------+ + + + [...]
--- OUTSIDE RECORDS SUMMARY | ~2020-01-31 | XMS | Encounter Summary ---
Demographics + + + | Address | [address] | | | [place] [address] | + + + | Home Phone [...] | Author | [facility] | | | and [place] | + + + | Organization | [facility] | [...] [place] | | | | | [address] | | + + + + + Care Team Providers + +------+ + | Care Solutions Consultant Name | Role | Phone | [...] | | | | | | [address] [place], [place] | | | | | | [address] | | | | | | [phone] | | | +--------+ + + + [...]
--- OUTSIDE RECORDS SUMMARY | ~2020-01-31 | XMS | Encounter Summary ---
Demographics + + + | Address | [address] | | | [place] [address] | + + + | Home Phone | | + + + | Preferred Language | Unknown | + + + | Marital Status | | + + + | Lutheran Affiliation | Unknown | + + + | Race | White | + + + | Ethnic Group | Not or | + + + Author + + + | Author | [facility] | + + + | Organization | [facility] | + + + | Address | Unknown | + + + | Phone | Unavailable | + + + Support + + +---------+ + | Name | Relationship | Address | Phone | + + +---------+ + | Maria Isabel Cespedes | ECON | Unknown | | + + +---------+ + Care Team Providers + +------+ + | Care Director Loss Prevention Name | Role | Phone | + [...] JO Ordaz | | | | | [address] | [address] | | | | | Loop Physician's | [place], [place] | | | | | [place], [facility] Floor | [address] | | | | | [place], [place] | [phone] | | | | | [address] | | | | | | [phone] | | | +--------+ + + + [...]
--- OUTSIDE RECORDS SUMMARY | ~2020-01-31 | XMS | Encounter Summary ---
Demographics + + + | Address | [address] | | | [place] [address] | + + + | Home Phone [...] + + | Author | [facility] | | | and [place] | + + + | Organization | [facility] | | | [...] [place] | | | | | [address] | | + + + + + Care Team Providers + +------+ + | Care Newsperson Name | Role | Phone | + [...] | | 2014 | | [address] | [address] | | | | | [place] | [place] | | | | | [address] | [address] | | | | | [phone] | [phone] | | | | | | | [...] GIVEN Testing | | | performed at [facility];[address];[place] [address] CULTURE | | | NO GROWTH | | | Testing performed at [facility], [address] | | | [place] [address] REPORT STATUS | | | 10/04/2013 FINAL [...]
--- OUTSIDE RECORDS SUMMARY | ~2020-01-31 | XMS | Encounter Summary ---
Demographics + + + | Address | [address] | | | [place] [address] | + + + | Home Phone [...] Providers + +------+ + | Care Radio Repair Teacher Name | Role | Phone | [...] | | | | | [place], | | | | | | [place] [address] | | | +--------+--------+ + + + [...]
--- OUTSIDE RECORDS SUMMARY | ~2020-01-31 | XMS | Encounter Summary ---
Demographics + + + | Address | [address] | | | [place] [address] | + + + | Home Phone [...] | Author | [facility] | | | and Alexana | + + + | Organization | [facility] [...] [place] | | | | | [address] | | + + + + + Care Team Providers + +------+ + | Care Business Liaison Officer Name | Role | Phone | + +------+ + | Allison aFirchild NP | PCP | | + +------+ + Reason for Visit +---------+ + | Reason | Comments | +---------+ + | Results | | +---------+ + Encounter Details +--------+ + + + + | Date | Type | Department | Care Team | Description | +--------+ + + + + | 12/09/ | Telephone | [facility] | Adrian Aponte MD | Results | | 2016 | | GASTROENTEROLOGY | [address] [facility] | | | | | [address] | [place], [place] | | | | | [address] [place] | [address] | | | | | [address] | [phone] | | | | | [phone] | | | +--------+ + + + [...]
--- OUTSIDE RECORDS SUMMARY | ~2020-01-31 | XMS | Encounter Summary ---
Demographics + + + | Address | [address] | | | [place] [address] | + + + | Home Phone [...] + + + | Author | [facility] | + + + | Organization | [facility] | + + + | Address | Unknown | + + + | Phone | Unavailable | + + + Support + + +---------+ + | Name | Relationship | Address | Phone | + + +---------+ + | Maria Isabel Cespedes | ECON | Unknown | | + + +---------+ + Care Team Providers + +------+ + | Care Telephonic Nurse Case Manager Name | Role | Phone | + +------+ + | Allison Fairchild DEGREE CLERK | PCP | | + +------+ + [...] | [address] | Vonda Khanna [facility] | | | | | ([facility]) | [facility], | | | | | Procedures | Rd | 10th Floor | | | | | CTA ABDOMEN | [place], [place] | [place], [place] | | | | | AND PELVIS W | [address] | [address] | | | | | IV CONTRAST | Phone: | Phone: | | | | | [place] | [phone] | [phone] | | | | | ANGIO, ABD | Fax: | Fax: | | | | | AND PELVS | [phone] | [phone] | | | | | INCL IMAG [...] | [address] | Vonda Khanna [facility] | | | | | ([facility]) | [facility], | | | | | Procedures | Rd | 10th Floor | | | | | CTA ABDOMEN | [place], [place] | [place], [place] | | | | | AND PELVIS W | [address] | [address] | | | | | IV CONTRAST | Phone: | Phone: | | | | | [place] | [phone] | [phone] | | | | | ANGIO, ABD | Fax: | Fax: | | | | | AND PELVS | [phone] | [phone] | | | | | INCL IMAG [...] | 2019 | Encounter | Services at [facility] | [address] | | | | | [address] | [address] | | | | | [place]onda M[place]NE[place] | [place], [place] | | | | | [address] | [address] | | | | | [place], [place] | [phone] | | | | | [address] | | | | | | [phone] | | | +--------+ + + + [...] + + + +---------+ + + | [id number] | Chew and swallow. | | 0 [...] [facility] | [address] | [place], [place] | | | [facility] | [address] | [address] | | | TESTS | | | [...]
--- OUTSIDE RECORDS SUMMARY | ~2020-01-31 | XMS | Encounter Summary ---
Demographics + + + | Address | [address] | | | [place] [address] | + + + | Home Phone [...] Author | [facility] | | | and [place]ana | + + + | Organization | [facility] | [...] [place] | | | | | [address] | | + + + + + Care Team Providers + +------+ + | Care Social Work Administrator Name | Role | Phone | [...] [place] | | | | | [address] | [address] | | | | | [phone] | [phone] | | | | | | | [...] [place] | | | | | | [address] | | | | + + + + + + | K | 4.8Comment: Testing | 3.5 - 4.9 | EXTERNAL | | | | performed at [facility] | mmol/L | LAB | | | | Health;[address] | | | | | | [place] | | | | | | [address] | | | | + + + + + + | Cl | 104Comment: Testing | 99 - 109 mmol/L | EXTERNAL | | | | performed at [facility] | | LAB | | | | Health;[address] | | | | | | [place] | | | | | | [address] | | | | + + + + + + | CO2 | 21 (L)Comment: Testing | 23 - 32 mmol/L | EXTERNAL | | | | performed at [facility] | | LAB | | | | Health;[address] | | | | | | [place] | | | | | | [address] | | | | + + + + + + | Anion Gap | 14Comment: Testing | 5 - 20 mmol/L | EXTERNAL | | | | performed at [facility] | | LAB | | | | Health;[address] | | | | | | [place] | | | | | | [address] | | | | + + + + + + | Glucose, | 93Comment: Testing | 65 - 99 mg/dL | EXTERNAL | | | Fasting | performed at [facility] | | LAB | | | | Health;[address] | | | | | | [place] | | | | | | [address] | | | | + + + + + + | BUN | 19Comment: Testing | 8 - 25 mg/dL | EXTERNAL | | | | performed at [facility] | | LAB | | | | Health;[address] | | | | | | [place] | | | | | | [address] | | | | + + + + + + | Creatinine | 0.7Comment: Testing | 0.70 - 1.30 | EXTERNAL | | | | performed at [facility] | mg/dL | LAB | | | | Health;[address] | | | | | | [place] | | | | | | [address] | | | | + + + + + + | BUN/Creatin | 27Comment: Testing | | EXTERNAL | | | ine Ratio | performed at [facility] | | LAB | | | | Health;[address] | | | | | | [place] | | | | | | [address] | | | | + + + + + + | Calcium | 8.7Comment: Testing | 8.5 - 10.2 | EXTERNAL | | | | performed at [facility] | mg/dL | LAB | | | | Health;[address] | | | | | | [place] | | | | | | [address] | | | | + + + + + + | Protein, | 6.4Comment: Testing | 6.3 - 8.2 g/dL | EXTERNAL | | | Total | performed at [facility] | | LAB | | | | Health;[address] | | | | | | [place] | | | | | | [address] | | | | + + + + + + | Albumin | 2.8 (L)Comment: Testing | 3.6 - 5.0 g/dL | EXTERNAL | | | | performed at [facility] | | LAB | | | | Health;[address] | | | | | | [place] | | | | | | [address] | | | | + + + + + + | Globulin | 3.6Comment: Testing | 1.3 - 4.9 g/dL | EXTERNAL | | | | performed at [facility] | | LAB | | | | Health;[address] | | | | | | [place] | | | | | | [address] | | | | + + + + + + | A/G Ratio | 0.8 (L)Comment: Testing | 1.0 - 2.4 | EXTERNAL | | | | performed at [facility] | | LAB | | | | Health;[address] | | | | | | [place] | | | | | | [address] | | | | + + + + + + | Bilirubin | 0.2Comment: Testing | 0.1 - 1.5 mg/dL | EXTERNAL | | | Total | performed at [facility] | | LAB | | | | Health;[address] | | | | | | [place] | | | | | | [address] | | | | + + + + + + | ALP, | 102Comment: Testing | 35 - 115 U/L | EXTERNAL | | | External | performed at [facility] | | LAB | | | | Health;[address] | | | | | | [place] | | | | | | [address] | | | | + + + + + + | AST | 49 (H)Comment: Testing | 10 - 45 U/L | EXTERNAL | | | | performed at [facility] | | LAB | | | | Health;[address] | | | | | | [place] | | | | | | [address] | | | | + + + + + + | ALT | 57Comment: Testing | 10 - 65 U/L | EXTERNAL | | | | performed at [facility] | | LAB | | | | Health;[address] | | | | | | [place] | | | | | | [address] | | | | + + + [...] | | | | | | at [facility];[address] | | | | | | [place] | | | | | | [address] | | | | + + + [...]
--- OUTSIDE RECORDS SUMMARY | ~2020-01-31 | XMS | Encounter Summary ---
Demographics + + + | Address | [address] | | | [place] [address] | + + + | Home Phone | | + + + | Preferred Language | Unknown | + + + | Marital Status | | + + + | Protestant Affiliation | Unknown | + + + [...] Team Providers + +------+ + | Care Conciliation Court Judge Name | Role | Phone | + +------+ + | Allison Fairchild SHEAR OPERATOR HELPER | PCP | | + +------+ [...] | | | | | spondylosis | SHEAR OPERATOR HELPER Good | [address] | | | | | with | Lio | [address] | | | | | radiculopath | [facility] | Jey [place], | | | | | y, lumbar | [address] | [place] | | | | | region | [address] | [address] | | | | | Acute kidney | [facility], | Phone: | | | | | failure, | [place] [address] | [phone] | | | | | unspecified | Phone: | Fax: | | | | | Other | [phone] | [phone] | | | | | disorder of | Fax: | | | | | | circulatory | [phone] | | | | | | system [...] 2019 | Visit | [facility] | [address] | (Primary Dx) | | | | [address] | [address] | | | | | Loop [facility] | [place], [place] | | | | | [address], [address] Floor | [address] | | | | | [place], [place] | [phone] | | | | | [address] | | | | | | [phone] | | | +--------+---------+ + + + [...] findings, assessment and plan. Malou Bo M.D. [address] [facility] Mailcode: Pv35 [facility] [address] cMoe DENIS, Debbie - 0 11/02/2018 3:30 PM PST RHEUMATOLOGY NEW VISIT PCP JUAN JOSÉ Juarez [place] [address] [place] [address] Chief Complaint: renal artery abnormalities, evaluate for [...] was instructed to schedule a visit wi [facility] [place] rheumatology Dr Howard, but has been unable to get in until today. Here with his . Traveled here from [place], [place]. Long drive which is uncomfortable for [...] 1,000 mg by mouth four times daily. gg-zkr-enutw acid-lutein (CENTRUM SILVER) 400-250 mcg oral tablet,chewable [...] ESR ~54 suggestive of a more ac nome process, although imperfect. No clear signs of [...] [facility] Mailcode: Pv[address] [place] [address] documented in this e ncounter [...] | + + + + + | [employer] [facility]is [facility] | [address] | [place] [address] | | | SERVICES, CORE | DORIAN [...] | + + + + + | [facility] | [address] | [place] [address] | | | SERVICES, CORE | PARK [...] [facility] | | | NIL | by [address] | | REG UNIV | | | | Manohar Lacey, [facility] | | PTH - INTFC | | | | [address] | | | | | | [email or web address]. | | | | | | Melecio [...] (http://www.cdc.gov/mmwr | | | | | | /preview/mmwrhtml/rn1788 | | | | | | a1.htm), [...] [facility] | [address] | [place], [place] | | | UNIV PTH - INTFC | | [address] | | + + + + + [...] | + + + + + | [employer] [facility] | [address] | [place] [address] | | | SERVICES, CORE | DORIAN [...] [facility] | [address] | [place] [address] | | | CHUYITA, CORE | PARK [...] the MDRD equation recommended by the | [facility] | | National Kidney Disease Education Program. 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
--- OUTSIDE RECORDS SUMMARY | ~2020-01-31 | XMS | Encounter Summary ---
Demographics + + + | Address | [address] | | | [place] [address] | + + + | Home Phone [...] Author | [facility] | | | and [place]ana | + + + | Organization | [facility] | [...] [place] | | | | | [address] | | + + + + + Care Team Providers + +------+ + | Care Playground Director Name | Role | Phone | + +------+ + PCP | Unavailable | + +------+ + Encounter Details +--------+ + + + + | Date | Type | Department | Care Team | Description | +--------+ + + + + | 03/27/ | [facility] | [facility] | Jamie Bentley MD | Incisional hernia | | 2013 | Encounter | [facility] | [address] | | | | | [address] | [address] [place], [place] | | | | | [place], [place] | [address] | | | | | [address] | | | | | | [phone] | | | +--------+ + + + [...] 03/27/141005 Date of Service: 03/27/141005 Status: Signed Pipe Or Steam Fitter Furnace Installer: Bradley West RPH (Pharmacist) Clinical Pharmacy Note: Renal Monitoring Reza Cespedes 53 y.o. male Ht Readings from Last 1 Encounters: 03/27/14 1.803 m (5' 11") Wt Readings from Last 1 Encounters: 03/27/14 86 kg (189 lb 9.5 oz) CREATININE Date Value Range Status 03/24/2014 0.93 0.70 - 1.30 mg/dL Final Testing performed at [facility];[address];[place] [address] CREATININE: 0.93 (03/24/14 1540) Estimated creatinine clearance - Cockcroft-Gault CrCl: 96.7 mL/min Pharmacy dosing for renal function per Dr. Bentley. Currently, there are no medications needing to be adjusted. Pharmacy will continue to monit or for changes in medication orders and in renal function and adjust accordingly. Bradley West [facility] 03/27/2014 10:06 AM docume nted in this encounter Plan of Treatment Not on filedocumented as of this encounter Visit Diagnoses + + | Diagnosis | + + | Incisional hernia Incisional hernia without mention of obstruction or gangrene | + + documented in this encounter
--- OUTSIDE RECORDS SUMMARY | ~2020-01-31 | XMS | Encounter Summary ---
Demographics + + + | Address | [address] | | | [place] [address] | + + + | Home Phone [...] | [facility] | | | and [place] | + + + | Organization | [facility] [...] [place] | | | | | [address] | | + + + + + Care Team Providers + +------+ + | Care Punch Hand Name | Role | Phone | [...] + + | 09/13/ | Telephone | [facility] | Anival Stevenson MD | Appointment | | 2020 | | GENERAL SURGERY [address] | [address] | | | | | [address] | [address] [place], [place] | | | | | [place], [place] | [address] | | | | | [address] | | | | | | [phone] | | | +--------+ + + + [...]
--- OUTSIDE RECORDS SUMMARY | ~2020-01-31 | XMS | Encounter Summary ---
Demographics + + + | Address | [address] | | | [place] [address] | + + + | Home Phone [...] Team Providers + +------+ + | Care Operational Risk Manager Name | Role | Phone [...] | 2019 | | Sahra Ybarra | [address] | / [place]) | | | | [address] | [address] | | | | | Loop [facility] | [place], [place] | | | | | [address], [address] Floor | [address] | | | | | [place], [place] | [phone] | | | | | [address] | | | | | | [phone] | | | +--------+ + + + [...]
--- OUTSIDE RECORDS SUMMARY | ~2020-01-31 | XMS | Encounter Summary ---
Demographics + + + | Address | [address] | | | [place] [address] | + + + | Home Phone [...] | Author | [facility] | | | and [place] | + + + | Organization | [facility] | | | and [place] [...] [place] | | | | | [address] | | + + + + + Care Team Providers + +------+ + | Care Strip Stamp Straightener Name | Role | Phone | + +------+ + | Allison Fairchild NP | PCP | | + +------+ + Encounter Details +--------+ + + + + | Date | Type | Department | Care Team | Description | +--------+ + + + + | 02/07/ | Hospital | [facility] | Conversion | | | 2016 | Encounter | [facility] | Transaction, | | | | | [address] | Provider Unknown | | | | | [place], [place] | [phone] | | | | | [address] | | | | | | [phone] | Jamie Bentley MD | | | | | | [address] [facility] | | | | | | [address] [place], [place] | | | | | | [address] | | | | | | | [...] | | | | TCL, [address] | | | | | | [place] | | | | | | [address] | | | | + + + + + + | Red Blood | 4.93Comment: Testing | 4.20 - 5.70 | EXTERNAL | | | Cells | performed at T[facility], [address] | M/uL | LAB | | | Counted | [facility] | | | | | | [place] [address] | | | | + + + + + + | Hemoglobin | 15.3Comment: Testing | 13.2 - 17.0 | EXTERNAL | | | | performed at TC, [address] | g/dL | LAB | | | | [address], | | | | | | [place] [address] | | | | + + + + + + | Hematocrit, | 45.9Comment: Testing | 39.0 - 50.0 % | EXTERNAL | | | POC | performed at T[facility], [address] | | LAB | | | | [place], | | | | | | [place] [address] | | | | + + + + + + | MCV | 93.2Comment: Testing | 80.0 - 100.0 fl | EXTERNAL | | | | performed at [facility], [address] | | LAB | | | | [address], | | | | | | [place] [address] | | | | + + + + + + | MCH | 31.1Comment: Testing | 27.0 - 34.0 pg | EXTERNAL | | | | performed at T[facility], [address] | | LAB | | | | [address], | | | | | | [place] [address] | | | | + + + + + + | MCHC | 33.4Comment: Testing | 32.0 - 35.5 | EXTERNAL | | | | performed at TCL, [address] | g/dL | LAB | | | | [address], | | | | | | [place] [address] | | | | + + + + + + | RDW-CV | 47.7Comment: Testing | 37 - 53 fl | EXTERNAL | | | | performed at T[facility], [address] | | LAB | | | | [address], | | | | | | [place] [address] | | | | + + + + + + | Platelet | 379Comment: Testing | 150 - 400 K/uL | EXTERNAL | | | Count | performed at TCL, [address] | | LAB | | | Plasma | [address], | | | | | | [place] [address] | | | | + + + + + + | MPV | 9.3Comment: Testing | fl | EXTERNAL | | | | performed at T[facility], [address] | | LAB | | | | [place], | | | | | | [place] [address] | | | | + + + + + + | Differentia | AUTOMATEDComment: | | EXTERNAL | | | l Type | Testing performed at | | LAB | | | | T[facility], [address] | | | | | | [place] | | | | | | [address] | | | | + + + + + + | % Segmented | 59.79Comment: Testing | % | EXTERNAL | | | | performed at TCL, [address] | | LAB | | | Neutrophils | [place], | | | | | | [place] [address] | | | | + + + + + + | % | 29.58Comment: Testing | % | EXTERNAL | | | Lymphocytes | performed at [facility], [address] | | LAB | | | | [address], | | | | | | [place] [address] | | | | + + + + + + | % Monocytes | 8.82Comment: Testing | % | EXTERNAL | | | | performed at [facility], [address] | | LAB | | | | [address], | | | | | | [place] [address] | | | | + + + + + + | % | 0.86Comment: Testing | % | EXTERNAL | | | Eosinophils | performed at T[facility], [address] | | LAB | | | | [place], | | | | | | [place] [address] | | | | + + + + + + | % Basophils | 0.95Comment: Testing | % | EXTERNAL | | | | performed at [facility], [address] | | LAB | | | | [address], | | | | | | [place] [address] | | | | + + + + + + | Absolute | 8.92 (H)Comment: Testing | 1.90 - 7.40 | EXTERNAL | | | Segmented | performed at [facility], [address] | K/uL | LAB | | | Neutrophils | [address], | | | | | | [place] [address] | | | | + + + + + + | Absolute | 4.41 (H)Comment: Testing | 1.00 - 3.90 | EXTERNAL | | | Lymphocytes | performed at [facility], [address] | K/uL | LAB | | | | [address], | | | | | | [place] [address] | | | | + + + + + + | Absolute | 1.32 (H)Comment: Testing | 0.00 - 0.80 | EXTERNAL | | | Monocytes | performed at [facility], [address] | K/uL | LAB | | | | [address], | | | | | | [place] [address] | | | | + + + + + + | Absolute | 0.13Comment: Testing | 0.00 - 0.50 | EXTERNAL | | | Eosinophils | performed at [facility], [address] | K/uL | LAB | | | | [address], | | | | | | [place] [address] | | | | + + + + + + | Absolute | 0.14 (H)Comment: Testing | 0.00 - 0.10 | EXTERNAL | | | Basophils | performed at [facility], [address] | K/uL | LAB | | | | [address], | | | | | | [place] [address] | | | | + + + [...]
--- OUTSIDE RECORDS SUMMARY | ~2020-01-31 | XMS | Encounter Summary ---
Demographics + + + | Address | [address] | | | [place] [address] | + + + | Home Phone [...] | Author | [facility] | | | and [place] | + + + | Organization | [facility] [...] [place] | | | | | [address] | | + + + + + Care Team Providers + +------+ + | Care Family Resource Management Specialist Name | Role | Phone | [...] + + | 10/11/ | Telephone | [facility] | Anival Stevenson MD | Results | | 2020 | | GENERAL SURGERY [address] | [address] | | | | | [address] | [address] [place], [place] | | | | | [place], [place] | [address] | | | | | [address] | | | | | | [phone] | | | +--------+ + + + [...]
--- OUTSIDE RECORDS SUMMARY | ~2020-01-31 | XMS | Encounter Summary ---
Demographics + + + | Address | [address] | | | [place] [address] | + + + | Home Phone [...] + | Author | [facility] | | | and [place] | + + + | Organization | [facility] | [...] [place] | | | | | [address] | | + + + + + Care Team Providers + +------+ + | Care Liquor Establishment Manager Name | Role | Phone | + +------+ + | Allison Fairchild NP | PCP | | + +------+ + Encounter Details +--------+ + + + + | Date | Type | Department | Care Team | Description | +--------+ + + + + | 12/13/ | Hospital | [facility] | Conversion | Renal artery | | 2019 | Encounter | [facility] | Transaction, | stenosis (HCC) | | | | ULTRASOUND [address] | Provider Unknown | | | | | [address] | [phone] | | | | | [place], [place] | | | | | | [address] | | | | | | [phone] | | | +--------+ + + + [...] | | | ABDOMEN LIMITED FOLLOWUP - [place] (01/22/2018); CT ABDOMEN PELVIS W | | [...] ULTRASOUND ABDOMEN LIMITED | | FOLLOWUP - [place] (01/22/2018); CT ABDOMEN PELVIS W CONTRAST | [...] as described above. | | Signed by: Clairbel Hood Chet | | Sign Date/Time: 12/13/2018 4:15 PM | + + documented in this encounter Visit Diagnoses + + | Diagnosis | + + | Renal artery stenosis (HCC) Atherosclerosis of renal artery | + + documented in this encounter"
--- OUTSIDE RECORDS SUMMARY | ~2020-01-31 | XMS | Encounter Summary ---
Demographics + + + | Address | [address] | | | [place] [address] | + + + | Home Phone [...] Author | [facility] | | | and [place] | + + + | Organization | [facility] | [...] [place] | | | | | [address] | | + + + + + Care Team Providers + +------+ + | Care Maintenance Mgr Name | Role | Phone | + [...] 2018 | | GASTROENTEROLOGY | [address], [place] | | | | | [address] [place] | [address] [place], [place] | | | | | [address] [place], [place] | [address] | | | | | [address] | | | | | | [phone] | | | +--------+ + + + [...]
--- OUTSIDE RECORDS SUMMARY | ~2020-01-31 | XMS | Encounter Summary ---
Demographics + + + | Address | [address] | | | [place] [address] | + + + | Home Phone [...] + | Author | [facility] | | | and Alexana | + + + | Organization | [facility] [...] [place] | | | | | [address] | | + + + + + Care Team Providers + +------+ + | Care Office Support Name | Role | Phone | + [...] | | | disorder | [address] | [place], [place] | | | | | ([facility]) | [place], [place] | [address] | | | | | | [address] | Phone: | | | | | | Phone: | [phone] | | | | | | [phone] | Fax: | | | | | | Fax: | [phone] | | | | | | [phone] | | +--------+ + + + + [...] + + | 10/06/ | Office | [facility] | Anival Stevenson MD | Thrombocytosis (HCC) | | 2020 | Visit | GENERAL SURGERY [address] | [address] | (Primary Dx); | | | | [address] | [address] [place], [place] | Chills without | | | | [place], [place] | [address] | fever; Night sweats; | | | | [address] | | Disoriented to | | | | [phone] | | place; Delusional | | | [...] to | Ordered: 10/06/2019 | | to [facility] Neurology | Referral | e | [...] | | | | | performed at [facility];[address] | | | | | | [facility] | | | | | | [facility];[place] [address] | | | | | | | | | | + + + + + + + + | Specimen | + + | Blood | + + + + + + + | Performing | Address | City/State/Zipcode | Phone Number | | Organization | | | | + + + + + | REFERENCE LAB | [facility] | [place] | [phone] | | [facility] | [address] | [address] | | | LABORATORY | | | | + + + + + | REFERENCE LAB | [facility] | [place] | | | [facility] | [address] | [address] | | | LABORATORY | | | [...] | | | Absolute | performed at [facility];[address] | K/uL | LAB | | | | Della | | [facility] | | | | [address];[place] [address] | | LABORATORY | | + + + + + + + + | Specimen | + + | Blood | + + + + + + + | Performing | Address | City/State/Zipcode | Phone Number | | Organization | | | | + + + + + | REFERENCE LAB | [address] [facility] | [place] | [phone] | | [facility] | [address] | [address] | | | LABORATORY | | | | + + + + + | REFERENCE LAB | [address] [facility] | [place] | | | [facility] | [address] | [address] | | | LABORATORY | | | [...]
--- OUTSIDE RECORDS SUMMARY | ~2020-01-31 | XMS | Encounter Summary ---
Demographics + + + | Address | [address] | | | [place] [address] | + + + | Home Phone [...] | [facility] | | | and [place] | + + + | Organization | [facility] | | | [...] [place] | | | | | [address] | | + + + + + Care Team Providers + +------+ + | Care Datastage Developer Name | Role | Phone | [...] | Anesthesia | LILIANA GUZMAN | Tremaine Steevnson | | | 2018 | Event | [facility] | Valentín ROSARIO MD [address] | | | | | [address] | [address] | | | | | [place] | [place] [address] | | | | | [address] | [phone] | | | | | [phone] | | | | | | | Luis Spann | | | | | | MD Mathew [address] | | | | | | [address] | | | | | | [place] [address] | | | | | | [phone] | | | | | | | [...] [address] | | eral | Antecubital; [id number] | Dennis Hills RN | Heather Chua [...]
--- OUTSIDE RECORDS SUMMARY | ~2020-01-31 | XMS | Encounter Summary ---
Demographics + + + | Address | [address] | | | [place] [address] | + + + | Home Phone [...] Author | [facility] | | | and [place] | + + + | Organization | [facility] | | [...] [place] | | | | | [address] | | + + + + + Care Team Providers + +------+ + | Care Polystyrene Bead Molder Name | Role | Phone | [...] + + | 12/16/ | Telephone | [facility] | Adrian Aponte MD | Results, Pathology; | | 2015 | | GASTROENTEROLOGY | [address] [facility] | Results, Imaging | | | | [address] [facility] | [place], [place] | | | | | [address] [place], [place] | [address] | | | | | [address] | [phone] | | | | | [phone] | | | +--------+ + + + [...]
[~2020-01-31 09:12] MED LIST changes: +PRILOSEC OTC20 MG PO; +VENTOLIN HFA18 GM INH
--- OUTSIDE RECORDS SUMMARY | 2020-01-31 09:16 | XMS ---
PreManage Notification: APARNA HAN Security Sales Financial Analyst Events No recent Security Events currently on file CRITERIA MET - [facility] - Has Care Guidelines - PDMP - [facility] - 2 Visits in 30 Days CARE PROVIDERS Haven Cevallos Counter Tacker/Pump Rebuilder 09/07/2019-Current PHONE: [phone] Pineda Nurse Practitioner: 10/21/2018-Current PHONE: [phone] Toan has no Care Guidelines for this patient. Care History Medical/Surgical 11/08/2018 [facility] - PATIENT HAS A MARKETING INFORMATION MANAGER AT [facility]- DR LEE. Reese VISIT COUNT (12 MO.) [address] [place] [address] [place] Chance TOTAL 6 NOTE: Visits indicate total known visits. ED/UCC VISIT TRACKING (12 MO.) 01/31/2020 09:13 [facility] [place] TYPE: Emergency COMPLAINT: - STOMACH/BACK PAIN 01/30/2020 23:46 [facility] [place] TYPE: Emergency COMPLAINT: - SEVERE LOWER BACK PAIN/INJ 07/29/2019 15:17 [facility] TYPE: Emergency DIAGNOSES: - Peritoneal abscess - Abnormal Lab - Wound Infection (Complicated) - Emesis 07/04/2019 17:56 [facility] TYPE: Emergency DIAGNOSES: - Wound Check - [...] INPATIENT VISIT TRACKING (12 MO.) [facility] DIAGNOSES: - Infection and inflammatory reaction due to other internal pro - Other specified anxiety disorders - Fistula of intestine - Infection and inflammatory reaction due to other internal pro - Infection and inflammatory reaction due to other internal pro - Cutaneous abscess of abdominal wall 07/29/2019 15:[facility] DIAGNOSES: - Peritoneal abscess - Other specified postprocedural states - Gastro-esophageal reflux disease without esophagitis - Generalized abdominal pain - Essential (primary) hypertension - Allergy status to other antibiotic agents status - Cutaneous abscess of abdominal wall - Personal history of other diseases of the digestive system [email or web address]
== END 2020-01-31 10:15 | disposition home or self-care (01) ==
LOC: ED 09:12
DX: G89.29 Other chronic pain (principal); M54.9 Dorsalgia, unspecified; R10.9 Unspecified abdominal pain; F41.9 Anxiety disorder, unspecified; F32.9 Major depressive disorder, single episode, unspecified; F17.200 Nicotine dependence, unspecified, uncomplicated; Z88.0 Allergy status to penicillin; Z91.048 Other nonmedicinal substance allergy status; Z88.8 Allergy status to other drugs, medicaments and biological substances; Z79.899 Other long term (current) drug therapy
CPT/HCPCS: 96372; 99283; J1885; J2550

== ENCOUNTER 2020-07-10 06:46 | Inpatient (IN) | payer OTHER ==
[~2020-07-10] VITALS: Ht 180.3 cm; Wt 83.8 kg
[~2020-07-10 06:46] MED LIST changes: +ATIVAN0.5 MG PO; -ATIVAN2 MG PO; +OMEPRAZOLE20 MG PO; -PRILOSEC OTC20 MG PO
[2020-07-10] MEDS ORDERED: METHOCARBAMOL500 MG PO (07:14)
--- NOTE | 2020-07-10 12:50 | NUR ---
THIS RN IN TO GIVE PT ANOTHER REMOTE CONTROL. PT STATES THAT HIS PAIN IS TOLERABLE EVEN THOUGH IT IS A DIFFERENT PAIN THAN HE IS USED TO. THIS RN DISCUSSED WITH PT THAT HE THIS RN WILL CHECK ON HIM AND THAT HE SHOULD CALL IF HIS PAIN INCREASES TO UN-TOLERABLE LEVELS. PTS CAREGIVER/ SO STATES THAT PT CAN BE SOMEWHAT STOIC WITH HIS PAIN AND IS NOT ALWAYS FORTHCOMING WITH HIS PAIN.
--- NOTE | 2020-07-10 14:12 | NUR ---
PATIENT IN BED RESTING. CALL LIGHT IN REACH. NO FURTHER NEEDS AT THIS TIME.
--- NOTE | 2020-07-10 14:30 | NUR ---
THIS RN IN ROOM PER PT REQUEST FOR PAIN MEDS. THIS RN ABLE TO PROVIDE PT WITH 1MG OF DILUADID AT THSI TIME FOR PTS PANCREATITIS PAIN. PT STATES THAT THIS MED SSEEMD TO BE TAKING THE EDGE OFF BUT NOT TOTALLY TAKING THE PAIN AWAY. PT STATES THAT HIS PAIN TOLERANCE IS 6/10.
[2020-07-10] MEDS ORDERED: AMLODIPINE BESY10 MG PO (15:17)
[2020-07-10] MEDS ORDERED: QUETIAPINE FUM100 MG PO (15:28)
[2020-07-10] MEDS ORDERED: QUETIAPINE FUM400 M1 PO (15:29)
[2020-07-10] MEDS ORDERED: ZESTRIL10 MG PO (15:35)
[2020-07-10] MEDS ORDERED: DULOXETINE HCL30 MG PO (15:35)
[2020-07-10] MEDS ORDERED: GABAPENTIN300 MG PO (15:36)
--- NOTE | 2020-07-10 16:20 | NUR ---
THIS RN IN PTS ROOM PER PT REQUEST FOR MORE PAIN MEDS. THIS RN ALERTED TO PTS NOT CONTROLLED PAIN. GAVE THIS RN A VERBAL ORDER TO CHANGE THE 1MG OF DILUADID TO EVERY 30MINS INSTEAD OF HIS EVERY 1 HOUR. ONCE THIS RN HAD PROVIDED PT WITH MEDS, PT STATED THAT HE COULD FEEL IT WORKING NOW.
[2020-07-10] MEDS ORDERED: PLAVIX75 MG PO (16:45)
[2020-07-10] MEDS ORDERED: ELIQUIS5 MG PO (16:45)
--- NOTE | 2020-07-10 16:46 | NUR ---
MED REC COMPLETE
--- NOTE | 2020-07-10 17:38 | NUR ---
THIS RN IN PTS ROOM TO CHECK ON PTS PAIN LEVEL AND SET UP CPOX. PT STATES THAT HIS PAIN IS 5/10, ALTHOUGH PT IS FIDGETING. PT STATES THAT HE DOES NOT NEED ANY MORE MEDS AT THIS TIME. PT STATES "I AM FEELING SO MUCH BETTER COMPARED TO THIS AM" THIS RN DISCUSSED WITH PT ABOUT HIM GETTING A ACCOUNTS COLLECTOR PUMP. PT STATES THAT THIS SOUNDS GOOD. RN EDUCATED PT THAT IT HAS A LOCK OUT AMOUNT SO IT IS VERY DIFFICULT TO OD ON. PT STATES THAT IS HIS ONLY CONCERN WITH IT.
--- NOTE | 2020-07-10 18:15 | NUR ---
THIS RN IN PTS ROOM WITH ULISES ARGUETA TO START PTS STENCIL PRINTER PUMP. THIS RN EDUCATED PT ON HOW MANY TIMES PT CAN PRESS THE BUTTON PER HOUR AND HOW MUCH MEDICATION PT WILL GET PER HOUR. PT STATES THAT HIS ONLY CONCERN IS THAT HE FEELS HE COULD OD ON THE MEDS. THIS RN EDUCATED PT THAT THE PUMP WILL NOT ALLOW THAT AND ALSO DISCUSSED WITH PT THAT STAFF WILL BE CHECKING IN ON HIM FOR THE NEXT 4 HOURS, EVERY HOUR. PT STATES THAT HE FEELS BETTER KNOWING THIS.
--- NOTE | 2020-07-10 19:00 | NUR ---
BEDSIDE REPORT RECEIVED FROM ELLIE IZQUIERDO. pt IS RESTING IN BED. RATES PAIN 4/10 IN UPPER ABD, RIGHT SIDE. SPO2 97% ON RA, CPOX IN PLACE. VSS. URINAL EMPTIED, 50 MLS CONCENTRATED URINE. SURGICAL PHYSICIAN ASSISTANT PUMP IN PLACE, IVF INFUSING WNL ORDERED. CALL LIGHT IN REACH.
--- NOTE | 2020-07-10 20:11 | NUR ---
PT'S IV WAS BEEPING, IT IS NOW INFUSING FINE. PT DENIES NEEDS AT THIS TIME. CALL LIGHT IS CLOSE.
--- NOTE | 2020-07-10 20:40 | NUR ---
pt AWAKE RESTING IN BED. VSS. pt RATES PAIN 4/10, "IT'S ALRIGHT". USING PRODUCTION POSTING CLERK PUMP. LINE FLUSHED WNL, GOOD BLOOD RETURN. NEW BAG IVF INFUSING ORDERED. ASSESSMENT COMPLETE. ABD NON TENDER WITH PALPATION, BOWEL TONES PRESENT. CALL LIGHT IN REACH. LIGHTS OFF IN ROOM. SLEEP MASK PROVIDED.
--- NOTE | 2020-07-10 21:04 | NUR ---
LOCKSTITCH SHOULDER JOINER PUMP BEEPING, PRIMARY ELLIE ROTHMAN IS GETTING A NEW CARTRIDGE AND WILL BE IN IN A MINUTE. PT DENIES NEEDS. CALL LIGHT IS CLOSE.
--- NOTE | 2020-07-10 21:11 | NUR ---
DRY ROOM OPERATOR PUMP ALARMING. NEW SYRINGE PLACED ON PUMP. pt RATES PAIN 4/10 IN ABDOMEN. SECOND ELLIE OWENS IN ROOM TO VERIFY. INFUSING ORDERED. pt HAS NO ADDITIONAL REQUESTS.
--- NOTE | 2020-07-10 21:48 | NUR ---
CALL LIGHT ANSWERED. pt C/0 NAUSEA, ANXIETY. REQUESTING PRN LORAZEPAM. PRN MEDICATION ADMINSITERED. pt RESTING IN BED. CALL LIGHT IN REACH.
--- NOTE | 2020-07-10 23:37 | NUR ---
ROUNDED ON pt. pt RESTING IN BED STATES "I JUST GET WEIRD AT NIGHT, I'M HOT THEN I'M COLD". NO C/O NAUSEA. DENIES C/O PAIN. MECHANICAL MAINTENANCE FOREMAN PUMP BUTTON IN REACH, IVF INFUSING WNL ORDERED. pt AWAKE WATCHING NEWS. CALL LIGHT IN REACH.
--- NOTE | 2020-07-11 00:05 | NUR ---
IV PUMP ALARMING. pt C/O NAUSEA, THEN STATES "I DON'T KNOW EXACTLY HOW TO WORD IT, I'M NOT GOING TO THROW UP". REQUESTS PRN NAUSEA MEDICATION. "I THINK THAT WOULD HELP". PRN MEDICATION ADMINISTERED. IV FLUSHED AND INFUSING WNL ORDERED. ORAL CARE COMPLETE. CALL LIGHT IN REACH.
--- NOTE | 2020-07-11 01:21 | NUR ---
CARDROOM DRAWING RUNNER PUMP SYRINGE REPLACED. pt RESTING IN BED, DROWSY. RATES PAIN 3-4/10. VSS. pt DENIES TOILETING NEEDS AT THIS TIME. CALL LIGHT IN REACH.
--- NOTE | 2020-07-11 02:40 | NUR ---
CHECKED ON pt. RESTING IN BED WITH EYES CLOSED. CPOX IN PLACE, SPO2 WNL ON RA.
--- NOTE | 2020-07-11 04:53 | NUR ---
IV PUMP ALARMING. NEW BAG IVF INFUSING WNL ORDERED. pt RESTING IN BED, REQUESTING PRN ANXIETY MEDICATION, ADMINISTERED AT THIS TIME. pt RATES PAIN 3/10 IN UPPER ABDOMEN. ASSESSMENT COMPLETE. BOWEL TONES ACTIVE, ABD SOFT, NON-TENDER W PALPATION. URINAL EMPTIED 25 MLS CONCENTRATED URINE. pt STATES HE HAS ISSUES VOIDING AT HOME. BLADDER SCAN 254 MLS. VSS. CALL LIGHT IN REACH.
--- NOTE | 2020-07-11 05:16 | NUR ---
pt'S PAIN WELL CONTROLLED WITH COMPOSING ROOM MACHINIST PUMP. ANXIOUS, NAUSEOUS THIS SHIFT, PRN MEDICATIONS ADMINISTERED. OLIGURIA. IVF INFUSING WNL ORDERED. NPO. USING CALL LIGHT APPROPRIATELY. ALERT AND ORIENTED. CPOX IN PLACE, SPO2 WNL ON RA.
--- NOTE | 2020-07-11 05:54 | NUR ---
DEAD MAIL CHECKER SYRINGE REPLACED, ELLIE GARCIA IN ROOM TO VERIFY. pt RATES PAIN 3/10. STANDING AT SIDE OF BED FOR ATTEMPT TO VOID AT THIS TIME. INSTRUCTED TO USE CALL LIGHT WHEN FINISHED.
--- NOTE | 2020-07-11 06:18 | NUR ---
IV PUMP ALARMING. DISTAL OCCLUSION. IVF INFUSING WNL ORDERED. CALL LIGHT IN REACH.
--- NOTE | 2020-07-11 06:50 | NUR ---
PHONE CALL TO MD, NOTIFIED OF LOW URINE OUTPUT, LABS. NEW ORDERS FOR IVF BOLUS AND CHANGE IN IVF REPEATED BACK.
--- NOTE | 2020-07-11 07:39 | NUR ---
this rn received report from marty thompson. pt appeared to be resting upon entering room but awoken easily. pt states that he is feeling much better and rates his pain 4/10 this am. pt wanting to eat, this rn discussed with pt that the md will have to figure that out when his labs improve.
--- NOTE | 2020-07-11 11:00 | NUR ---
Met with elizabeth Nicolas. She states Kevin requires extensive assistance. He has had TBI x2 and chronic multiple other problems including pancreatitis and prescription drug use. Pt's pcp retired and his new pcp would no longer order his multiple pain meds. He began seeing Dr. Orlando Valles this summer for pain management and he is attempting to decrease his pain meds drastically. Per Maria Isabel, Kevin has been in withdrawals since reduction. She is tearful throughout the conversation and stating he has anxiety and she spends most of the time with him, they have issues with finances and she needs to declare bankruptcy, but does not know where to start. They are in need of assist with housing as she is unable to shower/bath Kevin at their home and takes him to her daughters, she states multiple financial issues. 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 Discussed I will place a referral to [facility] and ask if she can begin seeing them in the hospital for resources for SDOH. She then states she also has an adult son with tanya who is unable to work.
--- NOTE | 2020-07-11 14:02 | NUR ---
PATIENT AWAKE IN BED, IN ROOM. VITALS AND I&OS CHARTED. CALL ELZBIETA GOMES
--- NOTE | 2020-07-11 15:30 | NUR ---
THIS RN DISCUSSED WITH PT THAT HE NEEDS TO CALL THIS RN IF HE IS GOING TO STAND UP AND NOT CALL INTO THE [facility]. THIS RN DISCUSSED WITH PT THAT HE IS A FALL RISK AND FOR HIS SAFETY HE NEEDS TO CALL STAFF TO MAKE WE KNOW HWEN HE STANDS.
--- NOTE | 2020-07-11 15:50 | NUR ---
THIS RN WATCHED PT LOOK OUT INTO NORTH AND THEN STAND UP AT SIDE OF BED WITHOUT CALLING. ULISES ARGUETA IN PTS ROOM TO DISCUSS WITH PT THAT HE IS A FALL RISK WELL. ULISES ARGUETA ABLE TO GET PT TO TAKE A WALK IN THE NORTH. PT STEADY ON HIS FEET
--- NOTE | 2020-07-11 17:37 | NUR ---
PATIENT VISITING WITH FAMILY IN ROOM. CALL LIGHT WITHIN REACH. NO FURTHER NEEDS AT THIS TIME.
--- NOTE | 2020-07-11 18:30 | NUR ---
THIS RN IN PTS ROOM TO CHANGE THE CARTRIDGE FOR THE COAL CARRIER PUMP. THIS RN ALSO OFFERED PT A NICOTINE PATCH AND 1MG OF ATIVAN TO PREVENT THE PASSING AND CONSTANT NEED TO STAND UP.
--- NOTE | 2020-07-11 19:23 | NUR ---
SHIFT REPORT RECEIVED FROM FELECIA ARGUETA. PT RESTING IN BED, WATCHING TV, DROWSY. FAMILY IN ROOM. IV FLUIDS INFUSING PER ORDER. SEX CRIMES DETECTIVE INFUSING PER ORDER. NO NEEDS AT THIS TIME. CALL LIGHT IN REACH.
--- NOTE | 2020-07-11 20:20 | NUR ---
IN RM WITH RN TO TAKE VITALS, I&Os IN, NO FURHTER REQEST FROM RN OR PT AT THIS TIME,
--- NOTE | 2020-07-11 20:28 | NUR ---
SHIFT ASSESSMENT COMPLETED. GCS 15, SLIGHTLY DROWSY, A&O X4. NO FEELING IN TOES OF RIGHT FOOT, CHRONIC. ALL OTHER CMS INTACT. LUNGS CLEAR. HEART TONES REGULAR. BOWEL TONES ACTIVE. PT STATES ABD IS NORMAL FIRMNESS BUT SLIGHTLY DISTENDED. IV WNL, CDI, FLUSHED WELL, REINFORCED WITH COBAN. PT DENIES PAIN AT THIS TIME. CALL LIGHT IN REACH.
--- NOTE | 2020-07-11 22:25 | NUR ---
PT'S IV WAS BEEPING, NEW BAG IS NOW INFUSING. TRIM INSTALLER CARTRIDGE IS COMPLETE WILL RETURN WITH 2ND RN FOR COSIGN. PT DENIES NEEDS, CALL LIGHT IS CLOSE. URINAL EMPTIED.
--- NOTE | 2020-07-11 22:45 | NUR ---
HOT KETTLE TENDER PUMP ALARMING. NEW SYRINGE REPLACED, VERIFIED BY GERARDO ARGUETA. NO OTHER NEEDS AT THIS TIME. CALL LIGHT IN REACH.
--- NOTE | 2020-07-11 23:30 | NUR ---
PT CALLED TO STAND AT BEDSIDE, C/O BACK CRAMPS, PT STRETCHING AT BEDSIDE, PT NOW BK IN BED, REPORTS FEELING BETTER, NO FURTHER REQUEST AT THIS TIME
--- NOTE | 2020-07-12 00:31 | NUR ---
PT UP AT BEDSIDE TO STRETCH, C/O BACK PAIN AND CRAMPS, BK IN BED AT THIS TIME, BED ALARM ON, NO FURTHER REQUESTS AT THIS TIME
--- NOTE | 2020-07-12 01:27 | NUR ---
PT STATES HE IS GETTING ANXIOUS, PACING ROOM. ANXIETY MED PROVIDED. IV FLUIDS AND PARKING PATROLLER INFUSING PER ORDER. NO OTHER NEEDS AT THIS TIME. CALL LIGHT IN REACH.
--- NOTE | 2020-07-12 03:45 | NUR ---
PT WOKE UP CONFUSED ABOUT PLACE, TIME AND DATE. PT REORIENTED. CPOX 93%, RA. IV FLUIDS AND AVIATION ELECTRONICS TECHNICIAN INFUSING. ASSESSMENT COMPLETED. PT DROWSY BUT ABLE TO BE ORIENTED TO ALL. GCS 15. IV WNL. LUNGS CLEAR, HEART TONES REGULAR. PT STATES ABD PAIN IS 3/10, AVIATION ELECTRONICS TECHNICIAN INFUSING PER ORDER. BOWEL TONES ACTIVE, ABD TENDER, PT STATES FIRMNESS IS NORMAL. CMS INTACT X4 EXTREMITIES. PT TOLERATING NPO WELL. NO OTHER NEEDS AT THIS TIME. CALL LIGHT IN REACH.
--- NOTE | 2020-07-12 03:59 | NUR ---
PT IS BK TO BED, PT WAS UP HAVING CONFUSION AND CPOX ALARMING, RN IN TO ASSESS PT, THIS POLITICAL REPORTER TOOK PT WARM BLANKETS, UP TO VOID IN URINAL, PT STILL RECALLS BEING IN PAWEL, REORIANTING PT NEEDED, RN TO BE BK IN RM TO CHECK IV AND COMPLEX MANAGER PUMPS, PT IS RESTING AT THIS TIME
--- NOTE | 2020-07-12 04:05 | NUR ---
CONSULTING SALES EXECUTIVE PUMP ALARMING, NEW CARTRIDGE PROVIDED. VERIFIED BY GERARDO ARGUETA. IV AND CONSULTING SALES EXECUTIVE INFUSING PER ORDER. NO OTHER NEEDS. CALL LIGHT IN REACH.
--- NOTE | 2020-07-12 04:44 | NUR ---
PT RESTING IN BED, EYES CLOSED. RR EVEN, UNLABORED. CPOX 92%, RA. NEW BAG IV FLUIDS PROVIDED. CALL LIGHT IN REACH.
--- NOTE | 2020-07-12 06:12 | NUR ---
PT REPORTS NAUSEA, ADMINISTERED IV ZOFRAN. PT DENIES FURTHER NEEDS AT THIS TIME. CALL LIGHT IS CLOSE.
--- NOTE | 2020-07-12 07:41 | NUR ---
0712: Pt resting in his bed with no complaints at this time, call gonzalez within reach as is the scroll shear operator button. Cpox reads 93% on room air and states his is "okay".
--- NOTE | 2020-07-12 09:25 | NUR ---
PT STATES IS ABD PAIN IS CONTROLED AT THIS TIME AND STATES THAT IT HAS BEEN IMPROVING SINCE HIS ADMIT. PT REMAINS NPO AND IS ON A PRESSURE TEST OPERATOR. PT DENIES ANY NEW PROBLEMS, SEE ASSESSMENT.
--- NOTE | 2020-07-12 10:11 | NUR ---
Pt on a tele conference call at this time, his caregiver in the room with him.
--- NOTE | 2020-07-12 10:40 | NUR ---
Dilaudid bicycle inspector cleared and dc'd as ordered. 8.2 mg given. Wasted with May ARGUETA.
--- NOTE | 2020-07-12 10:56 | NUR ---
Pt setting at the bed side and is now ordering lunch. He states his abd pain is a 4 and the lead embedded software engineer was stopped as ordered and po meds given. Pt states he is happy to be able eat again, will continue to monitor. Pt encouraged to eat slowly and to notify me with increased pain or nausea.
--- NOTE | 2020-07-12 11:15 | NUR ---
In to see pt, he is sitting on bedside, awake, pain controlled. Introduced myself as he was sleeping yesterday when I spoke with Maria Isabel. He repeatedly asks if he was mean and appoligizes. Let him know, he was sleeping and was not mean. States he feels so much better. Wants to go home when he can discharge. Spoke with Maria Isabel and she was contacted by ALYSSIA Lazo. They have scheduled an appt to meet.
--- NOTE | 2020-07-12 12:29 | NUR ---
Pt up in his room with the use of his cane by himself after being instructed to call first. It was reinforced to call first before getting up and as to why it is important. Pt states "I'm fine". Will continue to monitor.
--- NOTE | 2020-07-12 13:27 | NUR ---
PT GOT OUT OF BED AGAIN WITHOUT CALLING REQEUSTED. THE BED ALARM WENT OFF AND THE PT IS UPSET ABOUT STAFF REQEUSTING TO BE CALLED FIRST. AFTER DISCUSSING THINGS WITH HIM AGAIN HE STATES HE WILL CALL BEFORE GETTING UP. PT ATE LUNCH AND DENIES ANY PROBLEMS AFTER EATING. SEE ASSESSMENT.
--- NOTE | 2020-07-12 14:34 | NUR ---
PT ALERT, ORIENTED AND RESTING COMFORTABLY. PT FEELS HE IS GREATLY IMPROVED FROM ADMISSION AND APPRECIATES CARE HE HAS RECEIVED FOM ED TO M/S. PT FEELS GOD IS WORKING IN HIS LIFE, REQUESTED PRAYER. WILL FOLLOW
--- NOTE | 2020-07-12 15:13 | NUR ---
PT RESTING IN HIS BED AND IS WATCHING TV. HE DENIES ANY ABD PAIN AND STATES HE IS NOW ONLY HAVING HIS CHRONIC BACK AND LEG PAIN WHICH HE STATES IS UNDER CONTROL. BED ALARM REMAINS ON AND THE PT STATES HE WAS WRONG TO GET UP WITHOUT CALLING AND STATES HE WILL NOT DO THAT AGAIN.
--- NOTE | 2020-07-12 16:05 | NUR ---
CPOX DC'D ORDERED PT IS NO LONGER ON THE ACID STRENGTH INSPECTOR.
--- NOTE | 2020-07-12 16:28 | NUR ---
Pt was getting ready for a shower and his CG showed back up and she requested to have the pt shower in the AM and not tonight. The pt states this is what he would rather do.
--- NOTE | 2020-07-12 17:04 | NUR ---
PT ATE HIS DINNER WELL AND HE DENIES ANY PAIN OR NAUSEA AFTER EATING.
--- NOTE | 2020-07-12 19:10 | NUR ---
SHIFT REPORT RECEIVED FROM LILLIAN ARGUETA. PT AWAKE IN ROOM, WATCHING TV. NO NEEDS AT THIS TIME. CALL LIGHT IN REACH.
--- NOTE | 2020-07-12 20:45 | NUR ---
PT IS UP TO VOID, BED ALARM GOING OFF, TOOK VITALS I&0s DONE, PT IS BK IN BED AT THIS TIME, NO FURTHER NEEDS
--- NOTE | 2020-07-12 22:00 | NUR ---
ASSESSMENT COMPLETED. PT BACK AND LEG PAIN 03/16, SCHEDULED PAIN MED PROVIDED. GCS 15, A&O X4. LUNGS CLEAR, HEART TONES REGULAR. ABD SOFT, NONTENDER, PT STATES REGULAR. CMS INTACT X 4 EXTREMITIES. IV WNL, CDI, FLUSHED WELL. SCHEDULED MEDS PROVIDED. PT WENT FOR A WALK IN HALLS, TOLERATED WELL. NO OTHER NEEDS AT THIS TIME. CALL LIGHT IN REACH.
--- NOTE | 2020-07-13 | NUR ---
PT RESTING IN BED, EYES CLOSED. RR EVEN, UNLABORED. CALL LIGHT IN REACH.
--- NOTE | 2020-07-13 00:06 | NUR ---
SHIFT REPORT RECEIVED FROM LILLIAN ARGUETA. PT AWAKE IN ROOM, WATCHING TV. NO NEEDS AT THIS TIME. CALL LIGHT IN REACH.
--- NOTE | 2020-07-13 02:00 | NUR ---
PT RESTING IN BED, EYES CLOSED. RR EVEN, UNLABORED. CALL LIGHT IN REACH.
--- NOTE | 2020-07-13 02:41 | NUR ---
VS AND I&O COMPLETED. ASSESSMENT COMPLETED. PT IS AMBULATING WELL IN ROOM. GCS 15, A&O X4. PT REPORTS NO CHANGES TO NUMBNESS IN RIGHT FOOT AND LEG, PULSES AND MOTOR INTACT. CMS INTACT IN OTHER EXTREMITIES. TELE SR @ 68. ABD SOFT, NONTENDER, PT STATES NORMAL. BOWEL TONES ACTIVE. LUNGS CLEAR, HEART TONES REGULAR. NO OTHER NEEDS AT THIS TIME. CALL LIGHT IN REACH.
--- NOTE | 2020-07-13 04:36 | NUR ---
PT RESTING IN BED, EYES CLOSED. RR EVEN, UNLABORED. CALL LIGHT IN REACH.
--- NOTE | 2020-07-13 06:02 | NUR ---
PT RESTING IN BED. ASSESSMENT COMPLETED. PT DENIES ABD PAIN, DROWSY. LUNGS CLEAR. CMS INTACT. IV WNL. ABD SOFT, NONTENDER, PT STATES NORMAL. GCS 15, A&O X4.NO OTHER NEEDS AT THIS TIME. CALL LIGHT IN REACH.
--- NOTE | 2020-07-13 07:10 | NUR ---
HANDOFF REPORT RECEIVD FROM WASHING MACHINE LOADER AND PULLER RN.
--- NOTE | 2020-07-13 09:20 | NUR ---
PT RESTING IN BED, CAREGIVER MICHAEL AT BEDSIDE. MICHAEL CONCERNED ABOUT PT BEING MORE DROWSY THIS AM. PT AROUSABLE TO VOICE AND GENTLE SHAKE, ORIENTED, SLOW TO RESPOND. PT ON ROOM AIR, LUNG SOUNDS CLEAR, O2 SATS 97%. HR REGULAR, DENIES CHEST PAIN. DENIES SOB. PT DENIES NAUSEA, TOLERATED BREAKFAST, ABD SOFT AND NONTENDER. PT WITH WEAK EXTREMITITES X4, SENSATION INTACT, WITHOUT EDEMA. PT BECAME MORE ALERT THROUGH ASSESSMENT. DISCUSSED PLAN OF CARE, MICHAEL CONCERNED ABOUT DISCAHRGE PLAN AND FEELS HE IS NOT SAFE FOR DISCHARGE AT THIS TIME. DISCUSSED WITH DR. HENRIQUEZ.
[2020-07-13] MEDS ORDERED: NICODERM CQ1 EAC1 TD (11:37)
--- NOTE | 2020-07-13 11:50 | NUR ---
ASKED TO TALK WITH PATIENTS MICHAEL BY PLAST[employer] MOLD FILLER REGARDING PAIN MEDICATION ISSUE. SPOKE WITH PATIENT AND IN ROOM. PATIENT STATING SHE NEEDS AN RX FOR PATIENTS OXYCODONE SHE IS OUT AT HOME. SHE IS VISIBLY UPSET, STATING SHE WAS TOLD THEY HAVE TO GET IT FROM DR LOPEZ AND SHE STATES THEY MISSED APPOINTMENT YESTERDAY BECAUSE THEY WERE HERE. SHE STATES SHE SPOKE WITH DR LOPEZ BY PHONE AND HE STATED TO HER THAT DR HENRIQUEZ WOULD BE SENDING THEM HOME WITH A NEW RX. DISCUSSED WITH HER THAT USUALLY ANYONE UNDER A PAIN CONTRACT IS NOT SENT HOME WITH RX, BUT IS TOLD TO RESUME FROM THEIR PAIN CONTRACT PRESCRIBER. TOLD HER I WOULD LOOK INTO THE ISSUE. AGAIN SHE DENIES SHE HAS ANY ATIVAN OR OXYCODONE LEFT OVER AT HOME. SHE STATES DR LOPEZ HAD BEEN CUTTING BACK ON THE OXYCODONE AND STOPPED THE ATIVAN. SPOKE WITH DR HENRIQUEZ WHO STATES SHE SPOKE AT LENGTH YESTERDAY TO DR LOPEZ BY PHONE AND SHE WAS TOLD HE WOULD RESUME THE PAIN MEDICATIONS. SHE ALSO INDICATED THAT SHE CAN NOT PROVIDE THE AMOUNT HE NORMALLY WOULD NEED TO COVER TWO WEEKS OF MEDS. SHE ASKS THAT I TRY TO CONTACT HIS OFFICE. CALLED [facility] [phone] AND SPOKE WITH JE. SHE STATE SHE IS FAMILIAR WITH PATIENT AND . SHE STATES DR LOPEZ IS NOT IN TODAY AND WON'T BE BACK FOR 2 WEEKS. SHE DID LOOK UP HIS NOTE FROM YESTERDAY AND DID READ HE WROTE THAT HE WILL RESUME CARE AT DISCHARGE. SHE WILL TRY TO CONTACT HIM SHE HAS ACCESS TO TEXTING. SHE ASKS THAT WE CHECK WITH PATIENTS PHARMACY TO SEE IF A ESCRIPT WAS SENT FROM DR LOPEZ. [facility] SPOKE [facility] PHARMACIST. HE STATES LAST REFILL WAS 06/30/20 AND THEY WOULD HAVE HAD 15DAYS WORTH OF MEDICATIONS. SPOKE WITH AND DISCUSSED THAT THEY SHOULD HAVE HAD ENOUGH TABLETS AT LAST REFILL TO 07/15/20 AND THAT SINCE HE WAS ADMITTED FOR 3 DAYS AND HAD MEDS HERE THAT SHOULD LEAVE HER ANOTHER FEW DAYS WORTH. SHE THEN STATES SHE GAVE HIM EXTRA BECAUSE HE WAS HURTING WITH THE PANCREATITIS. I EXPLAINED WHY WE DON'T GIVE RX FOR DISCHARGE WHEN ON PAIN CONTRACTS AGAIN. DISCUSSED IF WE DO, WE GIVE A VERY SMALL AMOUNT, FOR JUST A FEW DAYS. WAS UPSET, AND STATES HE IS NOT ADDICTED, THAT DR LOPEZ THINKS HE IS DRINKING IF HE HAS PANCREATITIS AND HE "DOESN'T EVER DRINK". SHE IS STATING SHE WANTS TO CHANGE PCP AND PAIN CLNICS. WANTS RECOMMENDATIONS. DISCUSSED THAT THE [facility] WOULD BE IN [facility]. SHE STATES "THAT'S TO FAR", EXPLAINED THAT FOR HIS INSURANCE, THAT IS THE CLOSEST. DISCUSSED THAT THEY ARE WELCOME TO CHANGE PCP, BUT ADVISED I WOULD NOT DO THAT UNTIL THEY FIND ANOTHER. TOLD HER NEW PATIENTS ARE BEING ACCEPTED AT [facility] AND [facility]. SHE THEN STATES "WELL MAYBE WE WILL STAY WHERE WE ARE". SHE INDICATES SHE JUST WISHES THE PCP WOULD PRESCIBE THE PAIN MEDS AND I EXPLAINED THAT MOST PCP OFFICES WILL NOT PRESCRIBE LONG-TERM PAIN MANAGEMENT AND REFER TO PAIN CLINCIS NOW. DISCUSSED I AM WORKING WITH JE AT [facility] TO TRY AND GET A HOLD OF DR LOPEZ FOR REFILL FOR THEM. SHE STATES SHE NEEDS TO TAX ADJUSTER ONE OF HER KIDS IN AN HOUR. I ASSURRED HER THAT IF SHE NEEDS TO GO DO THIS IT IS FINE, SHE CAN COME BACK LATER. SHE ASKS "YOU WON'T KICK HIM OUT?" I ASSURRED HER WE OFTEN KEEP PEOPLE UNTIL THEIR FAMILY IS READY TO COME BACK IF THEY HAVE A SENSITIVE TIME ISSUE. SHE SEEMS MORE RELAXED AND THANKFUL FOR THE HELP. AGAIN CALLED JE AT [facility] AND LET HER KNOW THAT THERE WAS NOTHING SENT TO [facility]. SHE STATES SHE HAS LEFT A VOICEMAIL AND TEXTED DR LOPEZ.
--- NOTE | 2020-07-13 12:00 | NUR ---
PASTORAL CARE REPORT THAT PT WAS UPSET. DISCUSSED WITH PT THAT DR. GONZALEZ HAD CALLED AND AKSED IF PT HAD BEEN DRINKING TO CAUSE THE PANCREATITIS. MICHAEL CAME TO ROOM AND WAS ALSO UPSET ABOUT CONVERSATION WITH DR. GONZALEZ. DISCUSSED WITH PT AND MICHAEL AND THEY ARE REQUESTING ASSISTANCE WITH FINDING NEW PCP AND PAIN MANAGEMENT DOCTOR. CASE MANAGEMENT NOTIFIED OF REQUEST AND WILL SPEAK WITH PT ABOUT OPTIONS. PT WALKED IN NORTH WITH FRUIT COORDINATOR AND NURSE AND TOLERATED WELL.
--- NOTE | 2020-07-13 12:20 | NUR ---
ENTERED PTS' RM, HE IS SITTING ON SIDE OF BED VISIBLY DISTRAUGHT. PT STATED HE IS HAVING A BAD DAY. PT SHARED THAT HE FEELS A DR OUT SIDE OF [facility] HAS ACCUSED HIM OF DRINKING AND USING, AND THAT HAS REALLY UPSET HIM. STATED HE FEELS THAT HE IS BEING JUDGED BECAUSE OF HIS TATTOS. CALMED PT, GAVE ASSURANCE THAT WE ARE NOT JUDGING. PT REQUESTED PRAYER, AND ASSURED HIM I WILL FOLLOW UP WITH HIS RN JELANI. PT ACKNOWLEDGED
[2020-07-13] MEDS ORDERED: OXYCODONE HCL15 MG PO (15:19)
--- NOTE | 2020-07-13 15:55 | NUR ---
[facility] STAFF UNABLE TO REACH DR LOPEZ TODAY. SPOKE WITH JE. SHE STATES THAT IF WE CAN GIVE OXYCODONE FOR WEEKEND, DR BERRIOS WILL BE IN THURSDAY AND THEY WILL HAVE HIM COVER FROM THERE. UPDATED DR HENRIQUEZ WHO WROTE RX FOR THREE DAYS WORTH AND GAVE TO CHARGE NURSE. DISCUSSED WITH MICHAEL AND PATIENT WHO ARE AGREEABLE. AGAIN SHE SPOKE ABOUT CHANGING FROM DR LOPEZ. I SUGGESTED SHE TALK WITH [facility], MAYBE DR BERRIOS WILL TAKE HIM, OR THEY CAN CALL [facility] IN [place]. CONTACT NUMBER GIVEN.
--- NOTE | 2020-07-13 15:55 | NUR ---
DISCHARGE INSTRUCTIONS COMPLETED WITH PT AND CAREGIVER MICHAEL. IV CATH RMEOVED. VSS. PT DRESSED, BELONGINGS RETURNED. PT ESCORTED TO LOBBY IN WHEEL CHAIR. MICHAEL TO DRIVE PT HOME.
== END 2020-07-13 16:00 | disposition home or self-care (01) | DRG 440 ==
LOC: ED 06:46 → MS 09:59
PROVIDERS: ADMIT Internal Medicine; ATTEND Internal Medicine
DX: K85.90 Acute pancreatitis without necrosis or infection, unspecified (principal); Z20.828 Contact with and (suspected) exposure to other viral communicable diseases; G89.4 Chronic pain syndrome; F17.200 Nicotine dependence, unspecified, uncomplicated; F41.9 Anxiety disorder, unspecified; F32.9 Major depressive disorder, single episode, unspecified; S32.008S Other fracture of unspecified lumbar vertebra, sequela; Z87.820 Personal history of traumatic brain injury; Z88.0 Allergy status to penicillin; Z88.8 Allergy status to other drugs, medicaments and biological substances; Z86.19 Personal history of other infectious and parasitic diseases; Z79.899 Other long term (current) drug therapy; Z79.01 Long term (current) use of anticoagulants; Z79.02 Long term (current) use of antithrombotics/antiplatelets; Z79.891 Long term (current) use of opiate analgesic
CPT/HCPCS: 36415; 76705; 80048; 80053; 80061; 81001; 83690; 83735; 84100; 85025; 90686; 94762; 96361; 96374; 96375; 96376; 99285-25; 99406; C9113; C9803; G0480; J1170; J2060; J2270; J2405; J3480; J7030; J7120; J7121; U0003

== ENCOUNTER 2023-09-25 17:57 | Emergency (ER) | payer OTHER ==
[~2023-09-25] VITALS: Ht 180.3 cm; Wt 111.3 kg
[~2023-09-25 17:57] MED LIST changes: +AMLODIPINE BESY10 MG PO; +DULOXETINE HCL30 MG PO; +METHOCARBAMOL500 MG PO; +NICODERM CQ1 EAC1 TD; +PLAVIX75 MG PO; +QUETIAPINE FUM100 MG PO; +QUETIAPINE FUM400 M1 PO; +ZESTRIL10 MG PO
[2023-09-25 18:30] LABS: BASOPHILS 0.8 % (0-2); EOSINOPHILS 1.4 % (0-6); HEMATOCRIT 43.3 % (35.0-50.0); HEMOGLOBIN 14.5 g/dL (12.0-18.0); LYMPHOCYTES 16.9 % (24-44); MCH 31.1 (27-36); MCHC 33.6 g/dl (30-36); MCV 92.7 fl (81-99); NEUTROPHILS 72.9 % (39-80); PLATELET COUNT 347 K/uL (140-440); RBC 4.67 M/ul (4.3-5.7); RDW 14.5 (10.5-15.0)
[2023-09-25 18:43] LABS: ALBUMIN 3.6 g/dL (3.4-5.0); ALBUMIN/GLOBULIN RATIO 0.75 (1.1-2.4); ANION GAP 15.9 (7-21); BILIRUBIN, TOTAL 0.6 ng/dL (0.2-1.0); BUN/CREATININE RATIO 11.17 (6.0-28.6); CALCIUM 8.6 mg/dL (8.5-10.1); CREATININE, SERUM 1.7 mg/dL (0.70-1.30); POTASSIUM 3.9 mmol/L (3.5-5.1); PROTEIN, TOTAL 8.4 g/dL (6.4-8.2)
[2023-09-25 18:56] LABS: BILIRUBIN, URINE POSITIVE (negative); BLOOD/HGB, URINE LARGE (Negative); KETONE, URINE SMALL (Negative); LEUK ESTERASE, URINE NEGATIVE (negative); NITRITE, URINE NEGATIVE (negative)
[2023-09-25 19:09] LABS: RED BLOOD CELLS, URINE 41-50 /hpf (0-5)
[2023-09-25 19:10] LABS: BACTERIA, URINE RARE /hpf (negative); CASTS, URINE NONE SEEN \\lpf; COLLECTION TYPE, URINE CLEAN CATCH; CRYSTALS, URINE NONE SEEN (0-1+); EPITHELIAL CELLS, URINE SQUAMOUS 1+ /lpf (0-1+); REFLEX CULTURE, URINE No (No)
[2023-09-25] MEDS ORDERED: DILAUDID2 MG PO (20:51)
[2023-09-25] MEDS ORDERED: ONDANSETRON ODT8 MG PO (20:51)
[2023-09-25] MEDS ORDERED: CIPRO500 MG PO (20:51)
[2023-09-25 21:38] VITALS: BP 121/91
== END 2023-09-25 21:39 | disposition home or self-care (01) ==
LOC: ED 17:57
PROVIDERS: Emergency Medicine
DX: N13.2 Hydronephrosis with renal and ureteral calculous obstruction (principal); F17.200 Nicotine dependence, unspecified, uncomplicated; Z88.8 Allergy status to other drugs, medicaments and biological substances; Z88.0 Allergy status to penicillin; Z91.09 Other allergy status, other than to drugs and biological substances; Z79.899 Other long term (current) drug therapy; Z79.01 Long term (current) use of anticoagulants; Z86.73 Personal history of transient ischemic attack (TIA), and cerebral infarction without residual deficits
CPT/HCPCS: 36415; 74176; 80053; 81001; 83690; 85025; 96361; 96365; 96375; 99284-25; A9270; J0744; J1170; J2405; J7030

== ENCOUNTER 2023-10-25 09:09 | Emergency (ER) | payer OTHER ==
[~2023-10-25] VITALS: Ht 180.3 cm; Wt 110.3 kg
[~2023-10-25 09:09] MED LIST changes: +DILAUDID2 MG PO; +ONDANSETRON ODT8 MG PO
--- OUTSIDE RECORDS SUMMARY | 2023-10-25 09:11 | XMS ---
PreManage Notification: APARNA HAN Security Time Study Engineer Events No recent Security Events currently on file CRITERIA MET - [facility] - [facility] - 2 Visits in 30 Days CARE PROVIDERS Tri Giraldo Heel Seam Rubber/Quality Assurance Consultant 10/08/2023-Current PHONE: [phone] DA Pineda Nurse Practitioner: 10/21/2018-Current PHONE: Unknown -Ankit- Dentist: Casting Supervisor [facility] PHONE: [phone] ORACIO MEJIA Nurse Practitioner: Current PHONE: [phone] Toan has no Care Guidelines for this patient. Care History Medical/Surgical 11/08/2018 [facility] \R\- PATIENT HAS A CALCULATING MACHINE OPERATOR AT [facility]- DR LEE. Reese VISIT COUNT (12 MO.) [facility]OTAL [facility] NOTE: Visits indicate total known visits. ED/UCC VISIT TRACKING (12 MO.) 10/25/2023 09:10 [facility] TYPE: Emergency COMPLAINT: - RT FLANK PAIN 09/25/2023 17:58 [facility] TYPE: Emergency COMPLAINT: - ABDOMINAL PAIN DIAGNOSES: - Allergy status to other drugs, medicaments and biological substances - Allergy status to penicillin - Hydronephrosis with renal and ureteral calculous obstruction - buttermaker continuous churn (current) use of anticoagulants - Nicotine dependence, unspecified, uncomplicated - Other allergy status, other than to drugs and biological substances - Other termite inspector (current) drug therapy - Personal history of transient ischemic attack (TIA), and cerebral infarction without residual deficits - Unspecified abdominal pain INPATIENT VISIT TRACKING (12 MO.) No inpatient visits to display in this time frame [email or web address]
[2023-10-25 10:26] LABS: BASOPHILS 1.1 % (0-2); EOSINOPHILS 1.9 % (0-6); HEMATOCRIT 43.5 % (35.0-50.0); HEMOGLOBIN 14.6 g/dL (12.0-18.0); LYMPHOCYTES 23.2 % (24-44); MCH 30.6 (27-36); MCHC 33.6 g/dl (30-36); MCV 91.1 fl (81-99); MONOCYTES 7.6 % (0-12); NEUTROPHILS 66.2 % (39-80); PLATELET COUNT 311 K/uL (140-440); RBC 4.77 M/ul (4.3-5.7); RDW 14.8 (10.5-15.0)
[2023-10-25] MEDS ORDERED: KETOROLAC TROMETHAMINE 15 MG/ML VIAL IV ONE (10:30)
[2023-10-25] MEDS ORDERED: ondansetron HCL 4 MG/2 ML VIAL IV PRN (10:30)
[2023-10-25] MEDS ORDERED: SODIUM CHLORIDE 0.9% 1,000 ML IV ONE (10:30)
[2023-10-25 10:34] LABS: ALBUMIN 3.6 g/dL (3.4-5.0); ALBUMIN/GLOBULIN RATIO 0.88 (1.1-2.4); ANION GAP 12.9 (7-21); BILIRUBIN, TOTAL 0.4 ng/dL (0.2-1.0); BUN/CREATININE RATIO 13.04 (6.0-28.6); CREATININE, SERUM 1.15 mg/dL (0.70-1.30); POTASSIUM 3.9 mmol/L (3.5-5.1); PROTEIN, TOTAL 7.7 g/dL (6.4-8.2)
[2023-10-25 10:43] LABS: BILIRUBIN, URINE POSITIVE (negative); BLOOD/HGB, URINE LARGE (Negative); KETONE, URINE NEGATIVE (Negative); LEUK ESTERASE, URINE NEGATIVE (negative); NITRITE, URINE NEGATIVE (negative); PH, URINE 5.5 (5-7)
[2023-10-25 10:54] LABS: RED BLOOD CELLS, URINE >50 /hpf (0-5)
[2023-10-25 10:55] LABS: CRYSTALS, URINE CALCIUM PHOSPHATE 1+ (0-1+); EPITHELIAL CELLS, URINE 0 /lpf (0-1+); REFLEX CULTURE, URINE No (No)
[2023-10-25] MEDS ORDERED: DILAUDID2 MG PO (12:03)
[2023-10-25] MEDS ORDERED: HYDROmorphone HCL 1 MG/ML SYR IV PRN (12:15)
[2023-10-25 12:58] VITALS: BP 174/102
== END 2023-10-25 12:58 | disposition home or self-care (01) ==
LOC: ED 09:09
PROVIDERS: Emergency Medicine
DX: N13.2 Hydronephrosis with renal and ureteral calculous obstruction (principal); F17.200 Nicotine dependence, unspecified, uncomplicated; Z88.8 Allergy status to other drugs, medicaments and biological substances; Z88.5 Allergy status to narcotic agent; Z88.0 Allergy status to penicillin; Z91.048 Other nonmedicinal substance allergy status; Z79.899 Other long term (current) drug therapy; Z79.01 Long term (current) use of anticoagulants
CPT/HCPCS: 36415; 74176; 80053; 81001; 85025; 96361; 96374; 96375; 99284-25; J1170; J1885; J2405; J7030